=== PATIENT | female | born 1935 | race Caucasian/White ===

== ENCOUNTER → 2017-06-25 | Outpatient (CLI) | payer MEDICARE ==
--- NOTE | 2017-06-25 17:04 | Diagnostic Imaging Report ---
PROCEDURE: CT left lower extremity without contrast. TECHNIQUE: Multiple contiguous axial images were obtained through the left lower extremity without the use of intravenous contrast. Sagittal and coronal reformations were then performed. INDICATION: Knee pain. Preoperative imaging for knee arthroplasty. COMPARISON: None available. FINDINGS: Axial imaging of the left hip, knee and ankle were obtained according to the operative guidance protocol. These images demonstrate no concerning abnormality of left ankle or hip. Severe tricompartmental knee osteoarthritis is noted. A moderate-sized knee joint effusion is also present. Subcutaneous edema is seen around the ankle. IMPRESSION: CT imaging performed for operative planning purposes demonstrates severe tricompartmental knee osteoarthritis. Dictated by: Dictated on workstation # [id number]
== END ==
LOC: EDUNIT# 15:45 → RAD 15:51
PROVIDERS: ATTEND Orthopaedic Surgery
DX: Z01.818 Encounter for other preprocedural examination (principal); M17.12 Unilateral primary osteoarthritis, left knee
CPT/HCPCS: 73700

== ENCOUNTER 2017-07-09 12:43 | Outpatient (CLI) | payer MEDICARE ==
[~2017-07-09] VITALS: Ht 165.1 cm; Wt 84.4 kg
[2017-07-09 13:08] VITALS: BP 125/57
[2017-07-09 14:15] LABS: BASOPHILS % (AUTO) 0 % (0-10); EOSINOPHILS # (AUTO) 0.1 10^3/uL (0.0-0.3); EOSINOPHILS % (AUTO) 1 % (0-10); HEMATOCRIT 35 % (35-52); HEMOGLOBIN 11.8 G/DL (11.5-16.0); LYMPHOCYTES # (AUTO) 1.6 X 10^3 (1.0-4.0); LYMPHOCYTES % (AUTO) 23 % (12-44); MEAN CORPUSCULAR HEMOGLOBIN 30 PG (25-34); MEAN CORPUSCULAR HGB CONC 34 G/DL (32-36); MEAN CORPUSCULAR VOLUME 88 FL (80-99); MEAN PLATELET VOLUME 10.6 FL (7.4-10.4); MONOCYTES # (AUTO) 0.8 X 10^3 (0.0-1.0); MONOCYTES % (AUTO) 11 % (0-12); NEUTROPHILS # (AUTO) 4.5 X 10^3 (1.8-7.8); NEUTROPHILS % (AUTO) 65 % (42-75); PLATELET COUNT 324 10^3/uL (130-400); RED BLOOD COUNT 3.98 10^6/uL (4.35-5.85); RED CELL DISTRIBUTION WIDTH 14.4 % (10.0-14.5); WHITE BLOOD COUNT 6.9 10^3/uL (4.3-11.0)
[2017-07-09 14:16] LABS: BILIRUBIN,URINE NEGATIVE (NEGATIVE); CLARITY,URINE CLEAR; COLOR,URINE YELLOW; GLUCOSE, URINE (UA) NEGATIVE (NEGATIVE); KETONES,URINE NEGATIVE (NEGATIVE); LEUKOCYTE ESTERASE ,URINE NEGATIVE (NEGATIVE); NITRITE,URINE NEGATIVE (NEGATIVE); PH,URINE 7 (5-9); PROTEIN,URINE NEGATIVE (NEGATIVE); UROBILINOGEN,URINE NORMAL (NORMAL)
[2017-07-09 14:23] LABS: BACTERIA,URINE NEGATIVE /HPF
[2017-07-09 14:26] LABS: PROTHROMBIN TIME PATIENT 13.4 SEC (12.2-14.7)
[2017-07-09 14:33] LABS: ALBUMIN 4.1 GM/DL (3.2-4.5); BILIRUBIN,TOTAL 0.5 MG/DL (0.1-1.0); CALCIUM 9.4 MG/DL (8.5-10.1); CREATININE SERUM 1.13 MG/DL (0.60-1.30); POTASSIUM 4.2 MMOL/L (3.6-5.0); TOTAL PROTEIN 7.3 GM/DL (6.4-8.2)
[2017-07-09 14:49] LABS: ERYTHROCYTE SEDIMENTATION RATE 24 MM/HR (0-30)
[2017-07-09] MEDS ORDERED: CALC1TAB29 PO (15:38)
[2017-07-09] MEDS ORDERED: RANI-515 PO (15:38)
[2017-07-09] MEDS ORDERED: LOVA20TA2 PO (15:38)
[2017-07-09] MEDS ORDERED: OMEP40CA36 PO (15:38)
[2017-07-09] MEDS ORDERED: CHOL20003 PO (15:38)
[2017-07-09] MEDS ORDERED: VITA-244 PO (15:38)
[2017-07-09] MEDS ORDERED: FOLI-74 PO (15:38)
[2017-07-09] MEDS ORDERED: BNZ40T PO (15:38)
[2017-07-09] MEDS ORDERED: LEVO88TA54 PO (15:38)
[2017-07-09] MEDS ORDERED: CARV25TA PO (15:38)
[2017-07-09] MEDS ORDERED: FURO20TA4 PO (15:38)
[2017-07-09] MEDS ORDERED: ALEN70TA47 PO (15:38)
[2017-07-09] MEDS ORDERED: GLUC1TAB20 PO (15:38)
[2017-07-09] MEDS ORDERED: CETI10TA17 PO (15:38)
[2017-07-09] MEDS ORDERED: ASPI-983 PO (15:38)
[2017-07-09] MEDS ORDERED: AMLO10TA2 PO (15:38)
--- NOTE | 2017-07-09 17:06 | Diagnostic Imaging Report ---
INDICATION: Preop for total knee replacement. TIME OF EXAM: 02:03 p.m. COMPARISON: No prior studies are available for comparison. FINDINGS: Two views of chest are obtained. The heart is mildly enlarged. Pulmonary vascularity is unremarkable. There are no infiltrates. No effusion or pneumothorax is seen. IMPRESSION: No acute cardiopulmonary process is detected. Dictated by: Dictated on workstation # [id number]
== END 2017-07-09 14:00 | disposition home or self-care (01) ==
LOC: PREOP 12:43
PROVIDERS: ATTEND Orthopaedic Surgery
DX: Z01.811 Encounter for preprocedural respiratory examination (principal); Z01.812 Encounter for preprocedural laboratory examination; Z11.2 Encounter for screening for other bacterial diseases; M17.12 Unilateral primary osteoarthritis, left knee; R53.83 Other fatigue
CPT/HCPCS: 36415; 71046; 80053; 81000; 85025; 85610; 85652; 86850; 86900; 86901; 87081

== ENCOUNTER 2017-07-18 07:48 | Inpatient (IN) | payer MEDICARE ==
--- NOTE | 2017-07-09 10:44 | HISTORY AND PHYSICAL ---
DATE OF SERVICE: ADMISSION HISTORY AND PHYSICAL DATE OF ADMISSION: 07/18/2017. This will be for inpatient admission on 07/18/2017 for left total knee arthroplasty. HISTORY OF PRESENT ILLNESS: The patient is an 82-year-old female with complaints of progressively worsening left knee pain. She reports activity modifications and limitations because of the knee. She reports functional impairment. She reports this has been progressive in nature. She denies back pain and denies paresthesias. She has undergone treatment with injections but reports continued progressive symptoms. REVIEW OF SYSTEMS: No chest pain, no shortness of breath. No dysuria. PAST MEDICAL HISTORY: Hypertension, reflux, seasonal rhinitis, hypothyroidism, coronary artery disease. PAST SURGICAL HISTORY: SOCIAL HISTORY: The patient denies alcohol, tobacco use. FAMILY HISTORY: Significant for ischemic heart disease. PRIMARY CARE PROVIDER: Jalil Hayes M.D. ALLERGIES: No known drug allergies. RADIOGRAPHS: Reveal complete loss of lateral and patellofemoral joint spaces. PHYSICAL EXAMINATION. GENERAL: The patient is well-developed, well-nourished in no acute distress. HEENT: Normocephalic, atraumatic. Pupils are equal, round, reactive to light. Oropharynx is clear. NECK: Supple, no lymphadenopathy. LUNGS: Clear to auscultation bilaterally. HEART: Regular rate and rhythm. ABDOMEN: Soft, nontender, nondistended. EXTREMITIES: The left knee demonstrates valgus alignment. Range of motion 0/5/121. She has 1+ varus laxity, no valgus laxity, negative anterior and posterior drawer. No skin lesions are noted. Sensation is intact throughout. The patient ambulates with an antalgic gait. IMPRESSION: Severe left knee primary osteoarthritis. PLAN: Left total knee arthroplasty. We discussed risks, benefits, options complications and recovery. She understands and wishes to proceed. In addition, this will be a regular inpatient admission due to comorbidities, pain management, and gait abnormalities. Job ID: [id number] DocumentID: [id number] Dictated Date: 07/09/2017 09:43:45 Powdered Sugar Supervisor Date: 07/09/2017 10:43:20 Dictated By: LISSETTE RIOS MD
[~2017-07-18] VITALS: Ht 165.1 cm; Wt 84.4 kg
[~2017-07-18 07:48] MED LIST: ALEN70TA47 PO; AMLO10TA2 PO; ASPI-983 PO; BNZ40T PO; CALC1TAB29 PO; CARV25TA PO; CETI10TA17 PO; CHOL20003 PO; FOLI-74 PO; FURO20TA4 PO; GLUC1TAB20 PO; LEVO88TA54 PO; LOVA20TA2 PO; OMEP40CA36 PO; RANI-515 PO; VITA-244 PO
--- OUTSIDE RECORDS SUMMARY | 2017-07-18 07:55 | XMS REPORT | Clinical Summary ---
Author Author Admin, DANDRE Organization [facility] [employer] Address Unknown Phone Unavailable Allergies, Adverse Reactions, Alerts Allergy Name Reaction Description Start Date Severity Status Provider NKDA Critical Active Mariaa Whitman TECHNOLOGY ADMINISTRATOR Conditions or Problems Problem Name Problem Code Onset Date Status Entry Date Provider Comment Standard Description Annotate ROUTINE GYNECOLOGICAL EXAMINATION V72.31 Resolved Ana Cristina Vallejo MD PhD Routine gynecological examination MENOPAUSE 627.2 Ruled out Ana Cristina Vallejo MD PhD Symptomatic menopausal or female climacteric states MENOPAUSE 627.2 Active [facility] Symptomatic menopausal or female climacteric states DIVERTICULOSIS, COLON 562.10 Active Ana Cristina Vallejo MD PhD Diverticulosis of colon (without mention of hemorrhage) HIATAL HERNIA 553.3 Active Ana Cristina Vallejo MD PhD Diaphragmatic hernia without mention of obstruction or gangrene OSTEOPENIA 733.90 Active Ana Cristina Vallejo MD PhD Disorder of bone and cartilage, unspecified G E R D 530.81 Active Ana Cristina Vallejo MD PhD Esophageal reflux HYPERLIPIDEMIA 272.4 Active Ana Cristina Vallejo MD PhD Other and unspecified hyperlipidemia HYPERTENSION 401.9 Active Ana Cristina Vallejo MD PhD Unspecified essential hypertension HYPOTHYROIDISM 244.9 Active Ana Cristina Vallejo MD PhD Unspecified hypothyroidism FH STROKE V17.1 Active Ana Cristina Vallejo MD PhD Family history of stroke (cerebrovascular) INGROWN TOENAIL, INFECTED 703.0 Resolved Ana Cristina Vallejo MD PhD Ingrowing nail HEALTH SCREENING V70.0 Resolved Ana Cristina Vallejo MD PhD Routine general medical examination at a health care facility INGROWN TOENAIL 703.0 Resolved Ana Cristina Vallejo MD PhD Ingrowing nail Health maintenance exam V70.0 Active Ana Cristina Vallejo MD PhD Routine general medical examination at a health care facility Osteoarthritis, knee 715.96 Active Ana Cristina Vallejo MD PhD Osteoarthrosis, unspecified whether generalized or localized, involving lower leg Sciatica 724.3 Resolved Jalil Hayes MD Sciatica Sciatica, left 724.3 Active Mariaa Whitman APRN Sciatica Urinary bladder pain 788.99 Resolved Jalil Hayes MD Other symptoms involving urinary system UTI 599.0 Resolved Jalil Hayes MD Urinary tract infection, site not specified Mental status change 780.97 Active Mariaa Whitman APRN Altered mental status Medication management V68.89 Active Mariaa Whitman APRN Encounters for other specified administrative purpose Edema 782.3 Active Jalil Hayes MD Edema Dyspnea 786.09 Active Jalil Hayes MD Other dyspnea and respiratory abnormality Mammogram yearly screening V76.12 Active Jalil Hayes MD Other screening mammogram Change in bowels 787.99 Active Bee Rosas APRN Other symptoms involving digestive system Dysphagia 787.20 Active Bee Rosas APRN Dysphagia, unspecified ROUTINE GYNECOLOGICAL EXAMINATION ICD-V72.31 Inactive Ana Cristina Vallejo MD PhD INGROWN TOENAIL, INFECTED ICD-703.0 Inactive Ana Cristina Vallejo MD PhD HEALTH SCREENING ICD-V70.0 Inactive Ana Cristina Vallejo MD PhD INGROWN TOENAIL ICD-703.0 Inactive Ana Cristina Vallejo MD PhD Sciatica ICD-724.3 Inactive Jalil Hayes MD 2016 Urinary bladder pain ICD-788.99 Inactive Jalil Hayes MD UTI ICD-599.0 Inactive Jalil Hayes MD Medication List Medication Instructions Start Date Stop Date Generic Name NDC Status Provider Patient Instruction COLACE 100 MG CAP 1 po BID PRN Constipation DOCUSATE SODIUM 49443955952 No Longer Active Deepti Madl DESULPHURIZER OPERATOR Active ALPRAZOLAM 0.25 MG TAB 1/2-1 tablet by mouth twice a day as needed for stress ALPRAZOLAM 55491289050 No Longer Active Deepti Madl DESULPHURIZER OPERATOR Active MIRALAX ORAL PACK Takes daily prn POLYETHYLENE GLYCOL 3350 75119702740 Active Mariaa Yokum TECHNOLOGY ADMINISTRATOR Active ALENDRONATE SODIUM 70 MG TABS 1 pill by mouth weekly for osteoporosis ALENDRONATE SODIUM 50708154768 Active [facility] Active E-1000 1000 UNIT ORAL CAPS Take one by mouth daily VITAMIN E 64743779413 Active Brianda [facility] Active OSCAL 500/200 D-3 500-200 MG-UNIT ORAL TABS Take one by mouth 3 times daily, morning, afternoon and evening.] CALCIUM CARBONATE-VITAMIN D 13223374241 Active [facility] Active ASPIRIN 81 MG CHEW TAB 1 tablet by mouth daily ASPIRIN 66219661760 Active Brianda Reis [facility] Active ADULT ASPIRIN EC LOW STRENGTH 81 MG TBEC TAKE 1 TAB DAILY ASPIRIN 55215835256 No Longer Active Mariaa Yokum TECHNOLOGY ADMINISTRATOR Active ALENDRONATE SODIUM 70 MG TABS TAKE 1 TAB ONCE A WEEK ALENDRONATE SODIUM 85810244965 No Longer Active Mariaa Yokum TECHNOLOGY ADMINISTRATOR Active FLONASE ALLERGY RELIEF 50 MCG/ACT NASAL SUSP One spray each nostril daily for allergies FLUTICASONE PROPIONATE 83650630458 Active Mariaa Whitman APRN Active CETIRIZINE HCL 10 MG ORAL TABS 1 po qd PRN Allergies CETIRIZINE HCL 60343905930 Active HEDY Esquivel Active BACTRIM DS 800-160 MG TABS 1 pill by mouth twice daily, for UTI SULFAMETHOXAZOLE-TRIMETHOPRIM 08745355087 No Longer Active Ana Cristina Vallejo MD PhD Active HYDROCHLOROTHIAZIDE 12.5 MG CAPS 1 pill by mouth daily, for blood pressure HYDROCHLOROTHIAZIDE 21003550585 Active HEDY Esquivel Active CARVEDILOL 25 MG TABS 1 pill by mouth twice daily for blood pressure CARVEDILOL 62230309288 Active HEDY Esquivel Active SYNTHROID 0.088 MG TAB 1 tablet by mouth daily for thyroid LEVOTHYROXINE SODIUM 05524645169 Active HEDY Esquivel Active AMOXICILLIN 500 MG CAP 1 tab by mouth 3 times daily AMOXICILLIN 51915551479 No Longer Active Alden Kim MD Active [facility] VITAMIN D3 1000 UNIT CAPS TAKE 2 CAP DAILY CHOLECALCIFEROL Active Ana Cristina Vallejo MD PhD Active CALCIUM 500 MG TABS TAKE 3 TABS DAILY CALCIUM 93215689054 No Longer Active Mariaa Whitman APRN Active MULTIVITAMINS TABS TAKE 1 TAB DAILY MULTIPLE VITAMIN Active Anetajeannie Tavarezum DESULPHURIZER OPERATOR Active BENADRYL ALLERGY 25 MG TABS NEEDED DIPHENHYDRAMINE HCL 41674371066 Active Aneta Singh Leo DESULPHURIZER OPERATOR Active TYLENOL 325 MG TABS NEEDED ACETAMINOPHEN 04977714788 Active Aneta Singh Leo DESULPHURIZER OPERATOR Active ADVIL 200 MG TABS TAKE NEEDED IBUPROFEN 35070572444 Active Aneta Singh Leo DESULPHURIZER OPERATOR Active GLUCOSAMINE-CHONDROITIN 500-400 MG TABS TAKE 1 TAB DAILY GLUCOSAMINE-CHONDROITIN 62438680629 Active Mariaa Whitman APRN Active NORVASC 10 MG TABS TAKE 1 TAB DAILY AMLODIPINE BESYLATE 60963378635 Active HEDY Esquivel Active BENAZEPRIL HCL 40 MG TABS 1 PO BID BENAZEPRIL HCL 57861855793 Active HEDY Esquivel Active LOVASTATIN 20 MG TABS 1 PO Q HS FOR CHOLESTEROL LOVASTATIN 78331354729 Active HEDY Esquivel Active RANITIDINE HCL 150 MG CAPS 1 PO Q 12 HRS RANITIDINE HCL 05423021106 Active HEDY Esquivel Active ALENDRONATE SODIUM 70 MG TABS TAKE 1 TAB ONCE A WEEK ALENDRONATE SODIUM 70 MG TABS 064511 ALENDRONATE SODIUM Inactive ADULT ASPIRIN EC LOW STRENGTH 81 MG TBEC TAKE 1 TAB DAILY ADULT ASPIRIN EC LOW STRENGTH 81 MG TBEC 070951 ASPIRIN Inactive ALPRAZOLAM 0.25 MG TAB 1/2-1 tablet by mouth twice a day as needed for stress ALPRAZOLAM 0.25 MG TAB 825869 ALPRAZOLAM Inactive COLACE 100 MG CAP 1 po BID PRN Constipation COLACE 100 MG CAP 4500586 DOCUSATE SODIUM Inactive AMOXICILLIN 500 MG CAP 1 tab by mouth 3 times daily AMOXICILLIN 500 MG CAP 695603 AMOXICILLIN Inactive BACTRIM DS 800-160 MG TABS 1 pill by mouth twice daily, for UTI BACTRIM DS 800-160 MG TABS 146456 SULFAMETHOXAZOLE-TRIMETHOPRIM Inactive Advance Directives Directive Description Start Date PERMISSION TO SHARE Immunizations Vaccine Administration Date Value Standard Description influenza immunization (Flu Vax) has been administered given influenza virus vaccine, unspecified formulation dT (Diphtheria and Tetanus) booster given TD Td(adult) unspecified formulation pneumococcal immunization administered Pneumovax 23 pneumococcal polysaccharide vaccine, 23 valent Vital Signs Date Name Value Unit Range Description blood pressure, diastolic - 8462-4 52 mm[Hg] BP womack blood pressure, systolic - 8480-6 132 mm[Hg] BP sys height E&M - 8302-2 64.5 [in_us] Bdy height pulse rate E&M - 8867-4 56 /min Heart rate temperature E&M 95.8 [degF] Body temperature weight E&M - 3141-9 173 [lb_av] Weight Measured blood pressure, diastolic - 8462-4 54 mm[Hg] BP womack blood pressure, systolic - 8480-6 145 mm[Hg] BP sys temperature E&M 97.5 [degF] Body temperature weight E&M - 3141-9 176.0 [lb_av] Weight Measured blood pressure, diastolic - 8462-4 57 mm[Hg] BP womack blood pressure, systolic - 8480-6 136 mm[Hg] BP sys height E&M - 8302-2 64.5 [in_us] Bdy height pulse rate E&M - 8867-4 65 /min Heart rate temperature E&M 98.4 [degF] Body temperature weight E&M - 3141-9 166.5 [lb_av] Weight Measured blood pressure, diastolic - 8462-4 49 mm[Hg] BP womack blood pressure, systolic - 8480-6 146 mm[Hg] BP sys pulse rate E&M - 8867-4 68 /min Heart rate temperature E&M 98.7 [degF] Body temperature weight E&M - 3141-9 167 [lb_av] Weight Measured Diagnostic Results Date Name Value Unit Range Description Lab Report: Basic Metabolic Panel - Chemistry sodium, serum 130 mmol/L 521-219 5115/10/19 potassium, serum 3.5 mmol/L 3.5-5.2 chloride, serum 92 mmol/L 98-107 carbon dioxide, venous blood 33.6 mmol/L 21.0-32.0 blood glucose 118 mg/dL 65-110 calcium, serum 8.8 mg/dL 8.5-10.1 urea nitrogen, blood 11 mg/dL 7-18 creatinine, serum 1.12 mg/dL 0.55-1.30 Lab Report: CBC-QUEST, COMPREHENSIVE METABOLIC PANEL, LIPID PANEL, Micro ... - Chemistry cholesterol, serum 162 mg/dL 130-641 3234/05/01 HDL cholesterol, serum 68 mg/dL > OR=46 triglyceride, serum, fasting 96 mg/dL <150 LDL cholesterol, serum 75 MG/DL (CALC) mg/dL <130 cholesterol/HDL ratio, serum 2.4 (calc) < OR=5.0 Lab Report: CBC-QUEST, COMPREHENSIVE METABOLIC PANEL, LIPID PANEL, Micro ... - Hematology leukocyte count, blood 6.0 THOUSAND/UL 10*3/mm3 3.8-10.8 erythrocyte (RBC) count 3.95 MILLION/UL 10*6/mm3 3.80-5.10 hemoglobin, blood 11.7 g/dL 11.7-15.5 hematocrit, blood 34.2 % 35.0-45.0 mean corpuscular volume, RBC 86.4 fL 80.0-100.0 mean corpuscular hemoglobin, RBC 29.5 pg 27.0-33.0 mean corpuscular hemoglobin concentration, RBC 34.1 G/DL % 32.0- 36.0 red blood cell distribution width 16.2 % 11.0-15.0 platelet count 297 THOUSAND/UL 10*3/mm3 541-140 5354/05/01 mean platelet volume 8.9 fL 7.5-12.5 Lab Report: CBC-QUEST, COMPREHENSIVE METABOLIC PANEL, LIPID PANEL, Micro ... - Urinalysis microalbumin/total urine volume <0.2 mg/dL mg/L microalbumin/creatinine ratio, urine NOTE mcg/mg creat mg/L <30 Lab Report: UADIP W/MICRO, AUTO - Chemistry RBC, urine, dipstick 1+ Negative protein, total urine random Negative mg/dL Negative Lab Report: UADIP W/MICRO, AUTO - Urinalysis glucose, urine, semiquantitative Negative Negative ketones, urine, by test strip Negative Negative bilirubin, urine Negative Negative urine color Yellow Colorless;Lightyellow;Straw;Yellow appearance, urine Cloudy Clear specific gravity, urine 1.010 1.000-1.030 pH, urine, semiquantitative 7.5 5.0-8.5 urobilinogen, urine, semiquantitative (dipstick) 0.2 Normal leukocyte esterase, urine, by dipstick 3+ Negative nitrite, urine, semiquantitative Negative Negative Encounters Code Encounter Date Provider Facility CPT-07045 Level 4 Est. Patient 14:40:54 CDT Bee Rosas [facility] [place] [facility] [place] CPT-96947 Level 4 Est. Patient 10:31:15 CDT Jalil Hayes MD [facility]-63388 Level 4 Est. Patient 15:07:54 CDT Mariaa Whitman [facility]-88501 Level 3 Est. Patient 20:45:54 WIPING CLOTH CUTTER Mariaa Whitman [facility] CPT-54420 Level 3 Est. Patient 12:16:16 CDT Ana Cristina Vallejo MD PhD [facility] CPT-05374 Level 4 Est. Patient 12:49:21 CDT Ana Cristina [id number] Level 4 Est. Patient 23:02:25 CDT Ana Cristina Vallejo MD PhD [facility] CPT-40040 Level 4 Est. Patient 19:26:33 WIPING CLOTH CUTTER Ana Cristina Vallejo MD PhD [facility] CPT-82921 Level 4 Est. Patient 11:28:14 CDT Ana Cristina Vallejo MD PhD [facility] CPT-56236 Level 4 Est. Patient 15:35:46 WIPING CLOTH CUTTER Ana Cristina Vallejo MD PhD [facility] CPT-65434 Level 3 Est. Patient 21:06:39 WIPING CLOTH CUTTER Alden Kim MD [facility] CPT-89930 Level 4 Est. Patient 15:30:54 WIPING CLOTH CUTTER Ana Cristina Vallejo MD PhD [facility] Procedures Code Procedure Name Date Entry Date Standard Description CPT-48404 EKG Trac and Interp - XRAY USE ONLY 10:35:11 CDT 09/11 CPT-45888 Chest 2V Frontal and Lat - XRAY USE ONLY 10:35:11 CDT CPT-G0438 Initial Annual Wellness Exam 14:54:07 CDT CPT-G0009 Administration of Pneumococcal Vaccine 14:44:24 CDT CPT-05991 Pneumovax 23 Injection Injectable 25 MCG/0.5ML 14:44:24 CDT CPT-60113 First Vx - Ix admin for Medicare patients 14:44:24 CDT CPT-30877 Fluzone High-Dose Intramuscular Suspension 14:44:20 CDT CPT-75572 BMP - LAB USE ONLY 12:38:06 CDT CPT-04506 Urine Culture - LAB USE ONLY 16:56:33 CDT CPT-TCMM Transitional Care Mgmt-Moderate 18:08:16 CDT CPT-34002 Bone Density 09:14:12 CDT CPT-000 Give Appropriate Flu Vaccine 14:51:52 CDT CPT-32421 Fluzone High Dose (>=65 yrs.) 15:19:23 CDT CPT-81534 Immunization Single Admin 15:19:23 CDT CPT-01410 Prevnar 13 15:40:03 CDT CPT-06705 Administration single or combination vaccine inc oral 15 :40:03 CDT CPT-88168 Prevnar 13:55:07 CDT CPT-G0008 Administration of Influenza Virus Vaccine 10:49:51 CDT CPT-97757 Fluzone High-Dose Intramuscular Suspension 10:49:51 CDT CPT-70309 Knee 3V 13:31:37 CDT CPT-83466 Bone Density 09:07:05 WIPING [employer]OTH CUTTER CPT-06364 Nail Avulsion 09:46:05 CDT CPT-39437 Administration single or combination vaccine inc oral 16 :11:54 CDT CPT-64921 Influenza High Dose age 65+ 16:11:54 CDT CPT-39123 Administration single or combination vaccine inc oral 10 :53:15 CDT CPT-97800 Influenza High Dose age 65+ 10:53:15 CDT CPT-53798 Bone Density 14:50:58 WIPING [employer]OTH C[employer]TER CPT-78811 Administration single or combination vaccine inc oral 15 :41:20 WIPING [employer]OTH CUTTER CPT-63526 Zoster Vaccine (Zostavax) 15:41:20 WIPING CLOTH CUTTER CPT-98716 Spec Collection and Handling Fee 11:18:25 WIPING CLOTH CUTTER CPT-77332 Administration single or combination vaccine inc oral 11 :14:20 CDT CPT-04377 Influenza High Dose age 65+ 11:14:20 CDT
--- OUTSIDE RECORDS SUMMARY | 2017-07-18 07:56 | XMS REPORT | Clinical Summary ---
Author Author Admin, DANDRE Organization [facility] [employer] Address Unknown Phone Unavailable Allergies, Adverse Reactions, Alerts Allergy Name Reaction Description Start Date Severity Status Provider NKDA Critical Active Mariaa Whitman [employer]FORMATION OFFICER Conditions or Problems Problem Name Problem Code Onset Date Status Entry Date Provider Comment Standard Description Annotate ROUTINE GYNECOLOGICAL EXAMINATION V72.31 Resolved Ana Cristina Vallejo MD PhD Routine gynecological examination MENOPAUSE 627.2 Ruled out Ana Cristina Vallejo MD PhD Symptomatic menopausal or female climacteric states MENOPAUSE 627.2 Active Brianda Reis [facility] Symptomatic menopausal or female climacteric states DIVERTICULOSIS, [...] Active Jalil Hayes MD Edema Dyspnea 786.09 Resolved Jalil Hayes MD Other dyspnea and respiratory abnormality Mammogram yearly screening V76.12 Active Jalil Hayes MD Other screening mammogram Change in bowels 787.99 Active Bee Rosas APRN Other symptoms involving digestive system Dysphagia 787.20 Active Bee Rosas APRN Dysphagia, unspecified Near syncope 780.2 Active Jalil Hayes MD Syncope and collapse Diastolic dysfunction 429.9 Active Jalil Hayes MD Heart disease, unspecified Pulmonary hypertension 416.8 Active Jalil Hayes MD Other chronic pulmonary heart diseases Left atrial enlargement 429.3 Active Jalil Hayes MD Cardiomegaly Diastolic dysfunction 429.9 Active Jalil Hayes MD Heart disease, unspecified Dysuria 788.1 Resolved Jalil Hayes MD Dysuria Forgetfulness 780.99 Active Radha Jones [employer] Other general symptoms Unsteady gait 781.2 Active Radha Jones APRN Abnormality of gait Personal history of fall V15.88 Active Radha Jones APRN Personal history of fall BMI 29-29.9 adult V85.25 Active Jalil Hayes MD Body Mass Index 29.0-29.9, adult Arm pain 729.5 Active Jalil Hayes MD Pain in limb ROUTINE GYNECOLOGICAL EXAMINATION ICD-V72.31 Inactive Ana Cristina Vallejo MD PhD INGROWN TOENAIL, INFECTED ICD-703.0 Inactive Ana Cristina Vallejo MD PhD HEALTH SCREENING ICD-V70.0 Inactive Ana Cristina Vallejo MD PhD INGROWN TOENAIL ICD-703.0 Inactive Ana Cristina Vallejo MD PhD Sciatica ICD-724.3 Inactive Jalil Hayes MD 2016 Urinary bladder pain ICD-788.99 Inactive Jalil Hayes MD UTI ICD-599.0 Inactive Jalil Hayes MD Dyspnea ICD-786.09 Inactive Jalil Hayes MD 2017 Dysuria ICD-788.1 Inactive Jalil Hayes MD 05/23 Medication List Medication Instructions Start Date Stop Date Generic Name NDC Status Provider Patient Instruction PREDNISONE 10 MG ORAL TABLET 2 daily for 5 days then 1 daily for 5 days 05/25 PREDNISONE 39731882863 Active Deepti Junior LPN Active VITAMIN D3 2000 UNIT ORAL TABLET 1 daily, for vitamin D deficiency CHOLECALCIFEROL 77467625998 No Longer Active Radha Jones APRN Active CIPRO 250 MG ORAL TABLET 1 tab BID for 7 days CIPROFLOXACIN HCL 91722061395 No Longer Active Radha Jones APRN Active VITAMIN D3 2000 UNIT ORAL CAPSULE 1 capsule po daily CHOLECALCIFEROL 49455351267 Active Aneta Tavarezum YULIET Active EQL ONE DAILY WOMENS ORAL TABLET 1 po daily MULTIPLE VITAMINS- CALCIUM 77177280466 Active Aneta Bailey LPN Active MACROBID 100 MG ORAL CAPSULE 1 tab BID for 5 days NITROFURANTOIN MONOHYD MACRO 26173079814 No Longer Active Deepti Junior LPN Active HYDROCHLOROTHIAZIDE 12.5 MG ORAL CAPSULE 1 pill by mouth daily HYDROCHLOROTHIAZIDE 64339532418 Active Jalil Hayes MD Active RANITIDINE HCL 150 MG ORAL CAPSULE once nightly RANITIDINE HCL 42065273809 Active Aneta Bailey LPN Active BENAZEPRIL HCL 40 MG ORAL TABLET 1 daily for blood pressure BENAZEPRIL HCL 06834377088 Active Jalil Hayes MD Active HYDROCHLOROTHIAZIDE 12.5 MG ORAL CAPSULE 1 pill by mouth daily, for blood pressure HYDROCHLOROTHIAZIDE 36737128536 No Longer Active Jalil Hayes MD Active AUGMENTIN 875-125 MG ORAL TABLET 1 po BID x 7 days AMOXICILLIN-POT CLAVULANATE 30884838114 No Longer Active Jalil Hayes MD Active OMEPRAZOLE 40 MG ORAL CAPSULE DELAYED RELEASE 1 po q a.m. OMEPRAZOLE 35936040287 Active HEDY Esquivel Active MIRALAX ORAL PACKET Takes daily prn POLYETHYLENE GLYCOL 3350 01922170958 No Longer Active Peggy Pardo LPN Active FLONASE ALLERGY RELIEF 50 MCG/ACT NASAL SUSPENSION One spray each nostril daily for allergies FLUTICASONE PROPIONATE 37317804906 No Longer Active Peggy Pardo LPN Active BENADRYL ALLERGY 25 MG ORAL TABLET NEEDED DIPHENHYDRAMINE HCL 90972364477 No Longer Active Peggy Pardo LPN Active ADVIL 200 MG ORAL TABLET TAKE NEEDED IBUPROFEN 50983752049 No Longer Active Peggy Pardo LPN Active COLACE 100 MG ORAL CAPSULE 1 po BID PRN Constipation DOCUSATE SODIUM 43800110698 No Longer Active Deepti Junior LPN Active ALPRAZOLAM 0.25 MG ORAL TABLET 1/2-1 tablet by mouth twice a day as needed for stress ALPRAZOLAM 84098440906 No Longer Active Deepti Junior LPN Active ALENDRONATE SODIUM 70 MG ORAL TABLET 1 pill by mouth weekly for osteoporosis ALENDRONATE SODIUM 83456749699 Active Aneta Bailey LPN Active E-1000 1000 UNIT ORAL CAPSULE Take one by mouth daily VITAMIN E 91648913148 Active Aneta Bailey LPN Active OSCAL 500/200 D-3 500-200 MG-UNIT ORAL TABLET Take one by mouth 3 times daily , morning, afternoon and evening.] CALCIUM CARBONATE-VITAMIN D 90336549912 Active Aneta Bailey LPN Active ASPIRIN 81 MG ORAL TABLET CHEWABLE 1 tablet by mouth daily ASPIRIN 77721891359 Active Aneta Bailey LPN Active ADULT ASPIRIN EC LOW STRENGTH 81 MG ORAL TABLET DELAYED RELEASE TAKE 1 TAB DAILY ASPIRIN 22202661509 No Longer Active Mariaa Whitman APRN Active ALENDRONATE SODIUM 70 MG ORAL TABLET TAKE 1 TAB ONCE A WEEK 01/20 ALENDRONATE SODIUM 95294425152 No Longer Active Mariaa Whitman APRN Active CETIRIZINE HCL 10 MG ORAL TABLET 1 po qd PRN Allergies CETIRIZINE HCL 42025068182 Active HEDY Esquivel Active BACTRIM DS 800-160 MG ORAL TABLET 1 pill by mouth twice daily, for UTI 01/29 SULFAMETHOXAZOLE-TRIMETHOPRIM 63021451163 No Longer Active Ana Cristina Vallejo MD PhD Active CARVEDILOL 25 MG ORAL TABLET 1 pill by mouth twice daily for blood pressure CARVEDILOL 94877897154 Active Aneta Tavarezum RN PLACEMENT Active SYNTHROID 88 MCG ORAL TABLET 1 tablet by mouth daily for thyroid LEVOTHYROXINE SODIUM 75655406115 Active HEDY Esquivel Active AMOXICILLIN 500 MG ORAL CAPSULE 1 tab by mouth 3 times daily 2011 AMOXICILLIN 99767402882 No Longer Active Alden Kim MD Active CALCIUM 500 MG ORAL TABLET TAKE 3 TABS DAILY CALCIUM 02064026181 No Longer Active Mariaa Yoxuanum [employer] INFORMATION OFFICER Active MULTIVITAMINS TABS TAKE 1 TAB DAILY MULTIPLE VITAMIN No Longer Active Aneta Tavarezum RN PLACEMENT Active TYLENOL 325 MG ORAL TABLET NEEDED ACETAMINOPHEN 44972361595 Active Aneta Tavarezum RN PLACEMENT Active GLUCOSAMINE-CHONDROITIN 500-400 MG ORAL TABLET TAKE 1 TAB DAILY GLUCOSAMINE-CHONDROITIN 36540598489 Active Aneta Tavarezum RN PLACEMENT Active NORVASC 10 MG ORAL TABLET TAKE 1 TAB DAILY AMLODIPINE BESYLATE 68433486394 Active Aneta Tavarezum RN PLACEMENT Active LOVASTATIN 20 MG ORAL TABLET 1 PO Q HS FOR CHOLESTEROL LOVASTATIN 55975587239 Active HEDY Esquivel Active ALENDRONATE SODIUM 70 MG ORAL TABLET TAKE 1 TAB ONCE A WEEK 01/20 ALENDRONATE SODIUM 70 MG ORAL TABLET 863068 ALENDRONATE SODIUM Inactive ADULT ASPIRIN EC LOW STRENGTH 81 MG ORAL TABLET DELAYED RELEASE TAKE 1 TAB DAILY ADULT ASPIRIN EC LOW STRENGTH 81 MG ORAL TABLET DELAYED RELEASE 001416 ASPIRIN Inactive ALPRAZOLAM 0.25 MG ORAL TABLET 1/2-1 tablet by mouth twice a day as needed for stress ALPRAZOLAM 0.25 MG ORAL TABLET 080415 ALPRAZOLAM Inactive COLACE 100 MG ORAL CAPSULE 1 po BID PRN Constipation COLACE 100 MG ORAL CAPSULE 7961860 DOCUSATE SODIUM Inactive ADVIL 200 MG ORAL TABLET TAKE NEEDED ADVIL 200 MG ORAL TABLET 204143 IBUPROFEN Inactive BENADRYL ALLERGY 25 MG ORAL TABLET NEEDED BENADRYL ALLERGY 25 MG ORAL TABLET 8546679 DIPHENHYDRAMINE HCL Inactive FLONASE ALLERGY RELIEF 50 MCG/ACT NASAL SUSPENSION One spray each nostril daily for allergies FLONASE ALLERGY RELIEF 50 MCG/ACT NASAL SUSPENSION 3635408 FLUTICASONE PROPIONATE Inactive MIRALAX ORAL PACKET Takes daily prn MIRALAX ORAL PACKET 473592 POLYETHYLENE GLYCOL 3350 Inactive AUGMENTIN 875-125 MG ORAL TABLET 1 po BID x 7 days AUGMENTIN 875-125 MG ORAL TABLET 924588 AMOXICILLIN-POT CLAVULANATE Inactive HYDROCHLOROTHIAZIDE 12.5 MG ORAL CAPSULE 1 pill by mouth daily, for blood pressure HYDROCHLOROTHIAZIDE 12.5 MG ORAL CAPSULE 132115 HYDROCHLOROTHIAZIDE Inactive CIPRO 250 MG ORAL TABLET 1 tab BID for 7 days CIPRO 250 MG ORAL TABLET 103204 CIPROFLOXACIN HCL Inactive VITAMIN D3 2000 UNIT ORAL TABLET 1 daily, for vitamin D deficiency VITAMIN D3 2000 UNIT ORAL TABLET CHOLECALCIFEROL Inactive AMOXICILLIN 500 MG ORAL CAPSULE 1 tab by mouth 3 times daily 2011 AMOXICILLIN 500 MG ORAL CAPSULE 463957 AMOXICILLIN Inactive BACTRIM DS 800-160 MG ORAL TABLET 1 pill by mouth twice daily, for UTI 01/29 BACTRIM DS 800-160 MG ORAL TABLET 084160 SULFAMETHOXAZOLE- TRIMETHOPRIM Inactive MACROBID 100 MG ORAL CAPSULE 1 tab BID for 5 days MACROBID 100 MG ORAL CAPSULE 6793396 NITROFURANTOIN MONOHYD MACRO Inactive Advance Directives Directive Description Start Date PERMISSION TO SHARE Immunizations Vaccine Administration Date Value Standard Description influenza immunization (Flu Vax) has been administered given influenza virus vaccine, unspecified formulation dT (Diphtheria and Tetanus) booster given TD Td(adult) unspecified formulation pneumococcal immunization administered Pneumovax 23 pneumococcal polysaccharide vaccine, 23 valent Vital Signs Date Name Value Unit Range Description blood pressure, diastolic 57 mm[Hg] BP womack blood pressure, systolic 146 mm[Hg] BP sys height E&M 64.5 [in_us] Bdy height pulse rate E&M 62 /min Heart rate temperature E&M 98.3 [degF] Body temperature weight E&M 176.31 [lb_av] Weight Measured blood pressure, diastolic 59 mm[Hg] BP womack blood pressure, systolic 129 mm[Hg] BP sys height E&M 64.5 [in_us] Bdy height pulse rate E&M 65 /min Heart rate temperature E&M 97.7 [degF] Body temperature weight E&M 177 [lb_av] Weight Measured blood pressure, diastolic 58 mm[Hg] BP womack blood pressure, systolic 144 mm[Hg] BP sys pulse rate E&M 65 /min Heart rate temperature E&M 98.5 [degF] Body temperature weight E&M 171.5 [lb_av] Weight Measured blood pressure, diastolic 47 mm[Hg] BP womack blood pressure, systolic 123 mm[Hg] BP sys height E&M 64.5 [in_us] Bdy height pulse rate E&M 70 /min Heart rate temperature E&M 98.8 [degF] Body temperature weight E&M 170 [lb_av] Weight Measured blood pressure, diastolic 52 mm[Hg] BP womack blood pressure, systolic 132 mm[Hg] BP sys height E&M 64.5 [in_us] Bdy height pulse rate E&M 56 /min Heart rate temperature E&M 95.8 [degF] Body temperature weight E&M 173 [lb_av] Weight Measured blood pressure, diastolic 54 mm[Hg] BP womack blood pressure, systolic 145 mm[Hg] BP sys temperature E&M 97.5 [degF] Body temperature weight E&M 176.0 [lb_av] Weight Measured Diagnostic Results Date Name Value Unit Range Description Lab Report: Basic Metabolic Panel - Chemistry sodium, serum 132 mmol/L 096-264 1172/08/09 potassium, serum 4.2 mmol/L 3.5-5.2 chloride, serum 99 mmol/L 98-107 carbon dioxide, venous blood 24.7 mmol/L 21.0-32.0 blood glucose 119 mg/dL 65-110 calcium, serum 8.5 mg/dL 8.5-10.1 urea nitrogen, blood 14 mg/dL 7-18 creatinine, serum 1.16 mg/dL 0.60-1.30 Lab Report: CBC-QUEST, COMPREHENSIVE METABOLIC PANEL, LIPID PANEL, Micro ... - Chemistry cholesterol, serum 162 mg/dL 233-995 3889/05/01 HDL cholesterol, serum 68 mg/dL > OR=46 [...] % 11.0-15.0 platelet count 297 THOUSAND/UL 10*3/mm3 017-652 1801/05/01 mean platelet volume 8.9 fL 7.5-12.5 Lab Report: CBC-QUEST, COMPREHENSIVE METABOLIC PANEL, LIPID PANEL, Micro ... - Urinalysis microalbumin/total urine volume <0.2 mg/dL mg/L microalbumin/creatinine ratio, urine NOTE mcg/mg creat mg/L <30 Lab Report: Erythrocyte Sed Rate, Thyroid Stimulating Hormone (L), Basic ... - Chemistry TSH 1.13 m[iU]/mL 0.36-3.74 sodium, serum 139 mmol/L 267-188 3351/01/10 potassium, serum 3.8 mmol/L 3.5-5.2 chloride, serum 101 mmol/L 98-107 carbon dioxide, venous blood 24.4 mmol/L 21.0-32.0 blood glucose 101 mg/dL 65-110 calcium, serum 9.2 mg/dL 8.5-10.1 urea nitrogen, blood 15 mg/dL 7-18 creatinine, serum 1.18 mg/dL 0.60-1.30 Lab Report: UADIP W/MICRO, AUTO - Chemistry protein, total urine random Negative mg/dL Negative RBC, urine, dipstick 1+ Negative Lab Report: UADIP W/MICRO, AUTO - Urinalysis urobilinogen, urine, semiquantitative (dipstick) 0.2 E.U./dL Normal leukocyte esterase, urine, by dipstick 3+ Negative nitrite, urine, semiquantitative Negative Negative glucose, urine, semiquantitative Negative Negative ketones, urine, by test strip Negative Negative bilirubin, urine Negative Negative urine color Light yellow Colorless;Lightyellow;Straw;Yellow appearance, urine Cloudy Clear specific gravity, urine 1.010 1.000-1.030 pH, urine, semiquantitative 6.5 5.0-8.5 Encounters Code Encounter Date Provider Facility CPT-55175 Level 4 Est. Patient 12:35:27 CNC WOOD LATHE OPERATOR Jalil Hayes MD [facility]-41276 Level 3 Est. Patient 13:55:49 CDT Jalil Hayes MD [facility]32832 Level 3 Est. Patient 14:38:15 CDT Jalil Hayes MD [facility]27384 Level 4 Est. Patient 14:40:54 CDT Bee Rosas [facility]-58222 Level 4 Est. Patient 10:31:15 CDT Jalil Hayes MD [facility]41669 Level 4 Est. Patient 15:07:54 CDT Mariaa Whitman [facility]-50642 Level 3 Est. Patient 20:45:54 CNC WOOD LATHE OPERATOR Mariaa Whitman [facility]-51128 Level 3 Est. Patient 12:16:16 CDT Ana Cristina Vallejo MD [facility]11725 Level 4 Est. Patient 12:49:21 CDT Ana Cristina Vallejo MD [facility]30361 Level 4 Est. Patient 23:02:25 CDT Ana Cristina Vallejo MD [facility]61024 Level 4 Est. Patient 19:26:33 CNC WOOD LATHE OPERATOR Ana Cristina Vallejo MD [facility]14365 Level 4 Est. Patient 11:28:14 CDT Ana Cristina Vallejo MD PhD [facility] CPT-59508 Level 4 Est. Patient 15:35:46 CNC WOOD LATHE OPERATOR Ana Cristina Vallejo MD PhD [facility] CPT-98774 Level 3 Est. Patient 21:06:39 CNC WOOD LATHE OPERATOR Alden Kim MD [facility] CPT-79864 Level 4 Est. Patient 15:30:54 CNC WOOD LATHE OPERATOR Ana Cristina Vallejo MD PhD [facility] Procedures Code Procedure Name Date Entry Date Standard Description CPT-G0439 Subsequent Annual Wellness Exam 11:53:01 CNC WOOD LATHE OPERATOR CPT-14926 First Vx - Ix admin for Medicare patients 13:35:01 CDT CPT-91574 Fluzone High-Dose Intramuscular Suspension 13:35:01 CDT CPT-TCMM Transitional Care Mgmt-Moderate 14:41:55 CDT CPT-65077 EKG Trac and Interp - XRAY USE ONLY 10:35:11 CDT 09/11 CPT-10038 Chest 2V Frontal and Lat - XRAY USE ONLY 10:35:11 CDT CPT-G0438 Initial Annual Wellness Exam 14:54:07 CDT CPT-G0009 Administration of Pneumococcal Vaccine 14:44:24 CDT CPT-16116 Pneumovax 23 Injection Injectable 25 MCG/0.5ML 14:44:24 CDT CPT-94789 First Vx - Ix admin for Medicare patients 14:44:24 CDT CPT-95300 Fluzone High-Dose Intramuscular Suspension 14:44:20 CDT CPT-26315 BMP - LAB USE ONLY 12:38:06 CDT CPT-43666 Urine Culture - LAB USE ONLY 16:56:33 CDT CPT-TCMM Transitional Care Mgmt-Moderate 18:08:16 CDT CPT-19625 Bone Density 09:14:12 CDT CPT-000 Give Appropriate Flu Vaccine 14:51:52 CDT CPT-91318 Fluzone High Dose (>=65 yrs.) 15:19:23 CDT CPT-13323 Immunization Single Admin 15:19:23 CDT CPT-64550 Prevnar 13 15:40:03 CDT CPT-57884 Administration single or combination vaccine inc oral 15 :40:03 CDT CPT-44622 Prevnar 13 13:55:07 CDT CPT-G0008 Administration of Influenza Virus Vaccine 10:49:51 CDT CPT-27717 Fluzone High-Dose Intramuscular Suspension 10:49:51 CDT CPT-22149 Knee 3V 13:31:37 CDT CPT-45540 Bone Density 09:07:05 CNC WOOD LATHE OPERATOR CPT-32906 Nail Avulsion 09:46:05 CDT CPT-17512 Administration single or combination vaccine inc oral 16 :11:54 CDT CPT-98113 Influenza High Dose age 65+ 16:11:54 CDT CPT-63594 Administration single or combination vaccine inc oral 10 :53:15 CDT CPT-35721 Influenza High Dose age 65+ 10:53:15 CDT CPT-28747 Bone Density 14:50:58 CNC WO[employer] LATHE OPERATOR CPT-71833 Administration single or combination vaccine inc oral 15 :41:20 CNC WOOD LATHE OPERATOR CPT-70350 Zoster Vaccine (Zostavax) 15:41:20 CNC WOOD LATHE OPERATOR CPT-44550 Spec Collection and Handling Fee 11:18:25 CNC WOOD LATHE OPERATOR CPT-10253 Administration single or combination vaccine inc oral 11 :14:20 CDT CPT-70061 Influenza High Dose age 65+ 11:14:20 CDT
--- OUTSIDE RECORDS SUMMARY | 2017-07-18 07:56 | XMS REPORT | Clinical Summary ---
Author Author Admin, DANDRE Organization [facility] Address Unknown Phone Unavailable Allergies, Adverse Reactions, Alerts Allergy Name Reaction Description Start Date Severity Status Provider NKDA Critical Active Mariaa Whitman BAG BAILER Conditions or Problems Problem Name Problem Code Onset Date Status Entry Date Provider Comment Standard Description Annotate ROUTINE GYNECOLOGICAL EXAMINATION V72.31 Resolved Ana Cristina Vallejo MD PhD Routine gynecological examination MENOPAUSE 627.2 Ruled out Ana Cristina Vallejo MD PhD Symptomatic menopausal or female climacteric states MENOPAUSE 627.2 Active Brianda Reis [facility] Symptomatic menopausal or female climacteric states [...] MD Dysuria Forgetfulness 780.99 Active Radha Jones BAG BAILER Other general symptoms Unsteady gait 781.2 Active Radha Jones APRN Abnormality of gait Personal history of fall V15.88 Active Radha Jones APRN Personal history of fall BMI 29-29.9 adult V85.25 Active Jalil Hayes MD Body Mass Index 29.0-29.9, adult Arm pain 729.5 Active Jalil Hayes MD Pain in limb Preoperative examination V72.84 Active Jalil Hayes MD Preoperative examination, unspecified INGROWN TOENAIL, INFECTED ICD-703.0 Inactive Ana Cristina Vallejo MD PhD ROUTINE GYNECOLOGICAL EXAMINATION ICD-V72.31 Inactive Ana Cristina Vallejo MD PhD INGROWN TOENAIL ICD-703.0 Inactive Ana Cristina Vallejo MD PhD HEALTH SCREENING ICD-V70.0 Inactive Ana Cristina Vallejo MD PhD Urinary bladder pain ICD-788.99 Inactive Jalil Hayes MD UTI ICD-599.0 Inactive Jalil Hayes MD Sciatica ICD-724.3 Inactive Jalil Hayes MD 2016 Dysuria ICD-788.1 Inactive Jalil Hayes MD 05/23 Dyspnea ICD-786.09 Inactive Jalil Hayes MD 2017 Medication List Medication Instructions Start Date Stop Date Generic Name NDC Status Provider Patient Instruction FUROSEMIDE 20 MG ORAL TABLET 1 daily for blood pressure and swelling FUROSEMIDE 85095760827 Active Jalil Hayes MD Active HYDROCHLOROTHIAZIDE 12.5 MG ORAL CAPSULE 1 pill by mouth daily HYDROCHLOROTHIAZIDE 45329250601 No Longer Active Jalil Hayes MD Active PREDNISONE 10 MG ORAL TABLET 2 daily for 5 days then 1 daily for 5 days 05/25 PREDNISONE 05375647997 No Longer Active Jalil Hayes MD Active VITAMIN D3 2000 UNIT ORAL TABLET 1 daily, for vitamin D deficiency CHOLECALCIFEROL 26976905743 No Longer Active Radha Jones APRN Active CIPRO 250 MG ORAL TABLET 1 tab BID for 7 days CIPROFLOXACIN HCL 35366069207 No Longer Active Radha Jones APRN Active VITAMIN D3 2000 UNIT ORAL CAPSULE 1 capsule po daily CHOLECALCIFEROL 23588952869 Active Aneta Bailey LPN Active EQL ONE DAILY WOMENS ORAL TABLET 1 po daily MULTIPLE VITAMINS- CALCIUM 65513849732 Active Aneta Tavarezum ASSISTANT BOOKKEEPER Active MACROBID 100 MG ORAL CAPSULE 1 tab BID for 5 days NITROFURANTOIN MONOHYD MACRO 74122497287 No Longer Active Deepti Madl ASSISTANT BOOKKEEPER Active RANITIDINE HCL 150 MG ORAL CAPSULE once nightly RANITIDINE HCL 74659708106 Active Aneta Tavarezum ASSISTANT BOOKKEEPER Active BENAZEPRIL HCL 40 MG ORAL TABLET 1 daily for blood pressure BENAZEPRIL HCL 85608884768 Active Jalil Hayes MD Active HYDROCHLOROTHIAZIDE 12.5 MG ORAL CAPSULE 1 pill by mouth daily, for blood pressure HYDROCHLOROTHIAZIDE 86036370174 No Longer Active Jalil Hayes MD Active AUGMENTIN 875-125 MG ORAL TABLET 1 po BID x 7 days AMOXICILLIN-POT CLAVULANATE 11454871866 No Longer Active Jalil Hayes MD Active OMEPRAZOLE 40 MG ORAL CAPSULE DELAYED RELEASE 1 po q a.m. OMEPRAZOLE 63382098675 Active HEDY Esquivel Active MIRALAX ORAL PACKET Takes daily prn POLYETHYLENE GLYCOL 3350 00136782283 No Longer Active Peggy Pardo LPN Active FLONASE ALLERGY RELIEF 50 MCG/ACT NASAL SUSPENSION One spray each nostril daily for allergies FLUTICASONE PROPIONATE 20272075629 No Longer Active Peggy Pardo LPN Active BENADRYL ALLERGY 25 MG ORAL TABLET NEEDED DIPHENHYDRAMINE HCL 45375596761 No Longer Active Peggy Pardo LPN Active ADVIL 200 MG ORAL TABLET TAKE NEEDED IBUPROFEN 64944154850 No Longer Active Peggy Pardo LPN Active COLACE 100 MG ORAL CAPSULE 1 po BID PRN Constipation DOCUSATE SODIUM 95412934460 No Longer Active Deepti Junior LPN Active ALPRAZOLAM 0.25 MG ORAL TABLET 1/2-1 tablet by mouth twice a day as needed for stress ALPRAZOLAM 66607247407 No Longer Active Deepti Junior LPN Active ALENDRONATE SODIUM 70 MG ORAL TABLET 1 pill by mouth weekly for osteoporosis ALENDRONATE SODIUM 38921453297 Active Aneta Bailey LPN Active E-1000 1000 UNIT ORAL CAPSULE Take one by mouth daily VITAMIN E 40596700830 Active Aneta Bailey LPN Active OSCAL 500/200 D-3 500-200 MG-UNIT ORAL TABLET Take one by mouth 3 times daily , morning, afternoon and evening.] CALCIUM CARBONATE-VITAMIN D 62732777898 Active Aneta Bailey LPN Active ASPIRIN 81 MG ORAL TABLET CHEWABLE 1 tablet by mouth daily ASPIRIN 00685971369 Active Aneta Bailey LPN Active ADULT ASPIRIN EC LOW STRENGTH 81 MG ORAL TABLET DELAYED RELEASE TAKE 1 TAB DAILY ASPIRIN 56345663822 No Longer Active Mariaa Whitman APRN Active ALENDRONATE SODIUM 70 MG ORAL TABLET TAKE 1 TAB ONCE A WEEK 01/20 ALENDRONATE SODIUM 78145809413 No Longer Active Mariaa Whitman APRN Active CETIRIZINE HCL 10 MG ORAL TABLET 1 po qd PRN Allergies CETIRIZINE HCL 77056476223 Active HEDY Esquivel Active BACTRIM DS 800-160 MG ORAL TABLET 1 pill by mouth twice daily, for UTI 01/29 SULFAMETHOXAZOLE-TRIMETHOPRIM 25882705138 No Longer Active Ana Cristina Vallejo MD PhD Active CARVEDILOL 25 MG ORAL TABLET 1 pill by mouth twice daily for blood pressure CARVEDILOL 42647474077 Active Aneta Tavarezum YULIET Active SYNTHROID 88 MCG ORAL TABLET 1 tablet by mouth daily for thyroid LEVOTHYROXINE SODIUM 19569038227 Active HEDY Esquivel Active AMOXICILLIN 500 MG ORAL CAPSULE 1 tab by mouth 3 times daily 2011 AMOXICILLIN 80796602877 No Longer Active Alden Kim MD Active CALCIUM 500 MG ORAL TABLET TAKE 3 TABS DAILY CALCIUM 62363543130 No Longer Active Mariaa Whitman APRN Active MULTIVITAMINS TABS TAKE 1 TAB DAILY MULTIPLE VITAMIN No Longer Active Aneta Tavarezum ASSISTANT BOOKKEEPER Active TYLENOL 325 MG ORAL TABLET NEEDED ACETAMINOPHEN 04508223648 Active Aneta Tavarezum ASSISTANT BOOKKEEPER Active GLUCOSAMINE-CHONDROITIN 500-400 MG ORAL TABLET TAKE 1 TAB DAILY GLUCOSAMINE-CHONDROITIN 29514364394 Active Aneta Bailey LPN Active NORVASC 10 MG ORAL TABLET TAKE 1 TAB DAILY AMLODIPINE BESYLATE 95036272142 Active Aneta Tavarezum ASSISTANT BOOKKEEPER Active LOVASTATIN 20 MG ORAL TABLET 1 PO Q HS FOR CHOLESTEROL LOVASTATIN 76652835173 Active HEDY Esquivel Active ALENDRONATE SODIUM 70 MG ORAL TABLET TAKE 1 TAB ONCE A WEEK 01/20 ALENDRONATE SODIUM 70 MG ORAL TABLET 672779 ALENDRONATE SODIUM Inactive ADULT ASPIRIN EC LOW STRENGTH 81 MG ORAL TABLET DELAYED RELEASE TAKE 1 TAB DAILY ADULT ASPIRIN EC LOW STRENGTH 81 MG ORAL TABLET DELAYED RELEASE 855290 ASPIRIN Inactive ALPRAZOLAM 0.25 MG ORAL TABLET 1/2-1 tablet by mouth twice a day as needed for stress ALPRAZOLAM 0.25 MG ORAL TABLET 210134 ALPRAZOLAM Inactive COLACE 100 MG ORAL CAPSULE 1 po BID PRN Constipation COLACE 100 MG ORAL CAPSULE 8106583 DOCUSATE SODIUM Inactive ADVIL 200 MG ORAL TABLET TAKE NEEDED ADVIL 200 MG ORAL TABLET 823529 IBUPROFEN Inactive BENADRYL ALLERGY 25 MG ORAL TABLET NEEDED BENADRYL ALLERGY 25 MG ORAL TABLET 2100153 DIPHENHYDRAMINE HCL Inactive FLONASE ALLERGY RELIEF 50 MCG/ACT NASAL SUSPENSION One spray each nostril daily for allergies FLONASE ALLERGY RELIEF 50 MCG/ACT NASAL SUSPENSION 7731102 FLUTICASONE PROPIONATE Inactive MIRALAX ORAL PACKET Takes daily prn MIRALAX ORAL PACKET 738021 POLYETHYLENE GLYCOL 3350 Inactive AUGMENTIN 875-125 MG ORAL TABLET 1 po BID x 7 days AUGMENTIN 875-125 MG ORAL TABLET 550222 AMOXICILLIN-POT CLAVULANATE Inactive HYDROCHLOROTHIAZIDE 12.5 MG ORAL CAPSULE 1 pill by mouth daily, for blood pressure HYDROCHLOROTHIAZIDE 12.5 MG ORAL CAPSULE HYDROCHLOROTHIAZIDE Inactive CIPRO 250 MG ORAL TABLET 1 tab BID for 7 days CIPRO 250 MG ORAL TABLET 895185 CIPROFLOXACIN HCL Inactive VITAMIN D3 2000 UNIT ORAL TABLET 1 daily, for vitamin D deficiency VITAMIN D3 2000 UNIT ORAL TABLET CHOLECALCIFEROL Inactive PREDNISONE 10 MG ORAL TABLET 2 daily for 5 days then 1 daily for 5 days 05/25 PREDNISONE 10 MG ORAL TABLET 208788 PREDNISONE Inactive HYDROCHLOROTHIAZIDE 12.5 MG ORAL CAPSULE 1 pill by mouth daily HYDROCHLOROTHIAZIDE 12.5 MG ORAL CAPSULE HYDROCHLOROTHIAZIDE Inactive AMOXICILLIN 500 MG ORAL CAPSULE 1 tab by mouth 3 times daily 2011 AMOXICILLIN 500 MG ORAL CAPSULE 213947 AMOXICILLIN Inactive BACTRIM DS 800-160 MG ORAL TABLET 1 pill by mouth twice daily, for UTI 01/29 BACTRIM DS 800-160 MG ORAL TABLET 887770 SULFAMETHOXAZOLE- TRIMETHOPRIM Inactive MACROBID 100 MG ORAL CAPSULE 1 tab BID for 5 days MACROBID 100 MG ORAL CAPSULE 9587878 NITROFURANTOIN MONOHYD MACRO Inactive Advance Directives Directive [...] Value Unit Range Description blood pressure, diastolic 59 mm[Hg] BP womack blood pressure, systolic 137 mm[Hg] BP sys height E&M 64.5 [in_us] Bdy height pulse rate E&M 63 /min Heart rate temperature E&M 98.3 [degF] Body temperature weight E&M 183 [lb_av] Weight Measured blood pressure, diastolic 57 mm[Hg] BP womack [...] Panel - Chemistry sodium, serum 132 mmol/L 209-899 9561/08/09 urea nitrogen, blood 14 mg/dL 7-18 creatinine, serum 1.16 mg/dL 0.60-1.30 potassium, serum 4.2 mmol/L 3.5-5.2 chloride, serum 99 mmol/L 98-107 carbon dioxide, venous blood 24.7 mmol/L 21.0-32.0 blood glucose 119 mg/dL 65-110 calcium, serum 8.5 mg/dL 8.5-10.1 Lab Report: CBC-QUEST, COMPREHENSIVE METABOLIC PANEL, LIPID PANEL, Micro ... - Chemistry cholesterol, serum 162 mg/dL 331-941 1702/05/01 HDL cholesterol, serum 68 mg/dL > OR=46 triglyceride, serum, fasting 96 mg/dL <150 LDL cholesterol, serum 75 MG/DL (CALC) mg/dL <130 cholesterol/HDL ratio, serum 2.4 (calc) < OR=5.0 Lab Report: CBC-QUEST, COMPREHENSIVE METABOLIC PANEL, LIPID PANEL, Micro ... - Hematology mean corpuscular hemoglobin, RBC 29.5 pg 27.0-33.0 mean corpuscular hemoglobin concentration, RBC 34.1 G/DL % 32.0- 36.0 red blood cell distribution width 16.2 % 11.0-15.0 platelet count 297 THOUSAND/UL 10*3/mm3 699-889 2571/05/01 mean platelet volume 8.9 fL 7.5-12.5 mean corpuscular volume, RBC 86.4 fL 80.0-100.0 hematocrit, blood 34.2 % 35.0-45.0 hemoglobin, blood 11.7 g/dL 11.7-15.5 erythrocyte (RBC) count 3.95 MILLION/UL 10*6/mm3 3.80-5.10 leukocyte count, blood 6.0 THOUSAND/UL 10*3/mm3 3.8-10.8 Lab Report: CBC-QUEST, COMPREHENSIVE METABOLIC PANEL, LIPID PANEL, Micro ... - Urinalysis microalbumin/total urine volume <0.2 mg/dL mg/L microalbumin/creatinine ratio, urine NOTE mcg/mg creat mg/L <30 Lab Report: Erythrocyte Sed Rate, Thyroid Stimulating Hormone (L), Basic ... - Chemistry TSH 1.13 m[iU]/mL 0.36-3.74 calcium, serum 9.2 mg/dL 8.5-10.1 urea nitrogen, blood 15 mg/dL 7-18 creatinine, serum 1.18 mg/dL 0.60-1.30 sodium, serum 139 mmol/L 239-090 0386/01/10 potassium, serum 3.8 mmol/L 3.5-5.2 chloride, serum 101 mmol/L 98-107 carbon dioxide, venous blood 24.4 mmol/L 21.0-32.0 blood glucose 101 mg/dL 65-110 Lab Report: UADIP W/MICRO, AUTO - Chemistry RBC, urine, dipstick 1+ Negative protein, total urine random Negative mg/dL Negative Lab Report: UADIP W/MICRO, AUTO - Urinalysis glucose, urine, semiquantitative Negative Negative urobilinogen, urine, semiquantitative (dipstick) 0.2 E.U./dL Normal leukocyte esterase, urine, by dipstick 3+ Negative nitrite, urine, semiquantitative Negative Negative appearance, urine Cloudy Clear specific gravity, urine 1.010 1.000-1.030 pH, urine, semiquantitative 6.5 5.0-8.5 urine color Light yellow Colorless;Lightyellow;Straw;Yellow ketones, urine, by test strip Negative Negative bilirubin, urine Negative Negative Encounters Code Encounter Date Provider Facility CPT-15583 Level 4 Est. Patient 11:50:58 INSTRUMENT AND ELECTRICAL TECHNICIAN Jalil Hayes MD [facility] CPT-68025 Level 4 Est. Patient 12:35:27 INSTRUMENT AND ELECTRICAL TECHNICIAN Jalil Hayes MD [facility] CPT-60490 Level 3 Est. Patient 13:55:49 CDT Jalil Hayes MD [facility] CPT-43723 Level 3 Est. Patient 14:38:15 CDT Jalil Hayes MD [facility]-84737 Level 4 Est. Patient 14:40:54 CDT Bee Rosas [facility] CPT-34226 Level 4 Est. Patient 10:31:15 CDT Jalil Hayes MD [facility]-91066 Level 4 Est. Patient 15:07:54 CDT Mariaa Whitman [facility] CPT-09436 Level 3 Est. Patient 20:45:54 INSTRUMENT AND ELECTRICAL TECHNICIAN Mariaa Lauxuanbeckie [facility] CPT-56802 Level 3 Est. Patient 12:16:16 CDT Ana Cristina Vallejo MD PhD [facility]-69064 Level 4 Est. Patient 12:49:21 CDT Ana Cristina [facility] CPT-01785 Level 4 Est. Patient 23:02:25 CDT Ana Cristina Vallejo MD [facility] CPT-22903 Level 4 Est. Patient 19:26:33 INSTRUMENT AND ELECTRICAL TECHNICIAN Ana Cristina Vallejo MD [facility] CPT-92841 Level 4 Est. Patient 11:28:14 CDT Ana Cristina Vallejo MD [facility] CPT-77020 Level 4 Est. Patient 15:35:46 INSTRUMENT AND ELECTRICAL TECHNICIAN Ana Cristina Vallejo MD [facility] CPT-29336 Level 3 Est. Patient 21:06:39 INSTRUMENT AND ELECTRICAL TECHNICIAN Alden Kim MD [facility] CPT-24249 Level 4 Est. Patient 15:30:54 INSTRUMENT AND ELECTRICAL TECHNICIAN Ana Cristina Vallejo MD PhD [facility] Procedures Code Procedure Name Date Entry Date Standard Description CPT-G0439 [facility] Annual Wellness Exam 11:53:01 INSTRUMENT AND ELECTRICAL TECHNICIAN CPT-27663 First Vx - Ix admin for Medicare patients 13:35:01 CDT CPT-96384 Fluzone High-Dose Intramuscular Suspension 13:35:01 CDT CPT-TCMM Transitional Care Mgmt-Moderate 14:41:55 CDT CPT-67571 EKG Trac and Interp - XRAY USE ONLY 10:35:11 CDT 09/11 CPT-00454 Chest 2V Frontal and Lat - XRAY USE ONLY 10:35:11 CDT CPT-G0438 Initial Annual Wellness Exam 14:54:07 CDT CPT-G0009 Administration of Pneumococcal Vaccine 14:44:24 CDT CPT-67013 Pneumovax 23 Injection Injectable 25 MCG/0.5ML 14:44:24 CDT CPT-55661 First Vx - Ix admin for Medicare patients 14:44:24 CDT CPT-90503 Fluzone High-Dose Intramuscular Suspension 14:44:20 CDT CPT-74894 BMP - LAB USE ONLY 12:38:06 CDT CPT-04810 Urine Culture - LAB USE ONLY 16:56:33 CDT CPT-TCMM Transitional Care Mgmt-Moderate 18:08:16 CDT CPT-56440 Bone Density 09:14:12 CDT CPT-000 Give Appropriate Flu Vaccine 14:51:52 CDT CPT-39552 Fluzone High Dose (>=65 yrs.) 15:19:23 CDT CPT-48268 Immunization Single Admin 15:19:23 CDT CPT-69571 Prevnar 13 15:40:03 CDT CPT-48971 Administration single or combination vaccine inc oral 15 :40:03 CDT CPT-15781 Prevnar 13 13:55:07 CDT CPT-G0008 Administration of Influenza Virus Vaccine 10:49:51 CDT CPT-71685 Fluzone High-Dose Intramuscular Suspension 10:49:51 CDT CPT-58709 Knee 3V 13:31:37 CDT CPT-30858 Bone Density 09:07:05 INSTRUMENT AND ELECTRICAL TECHNICIAN CPT-91141 Nail Avulsion 09:46:05 CDT CPT-65240 Administration single or combination vaccine inc oral 16 :11:54 CDT CPT-14415 Influenza High Dose age 65+ 16:11:54 CDT CPT-79326 Administration single or combination vaccine inc oral 10 :53:15 CDT CPT-37757 Influenza High Dose age 65+ 10:53:15 CDT CPT-38984 Bone Density 14:50:58 INSTRUMENT AND ELECTRICAL TECHNICIAN CPT-83042 Administration single or combination vaccine inc oral 15 :41:20 INSTRUMENT AND ELECTRICAL TECHNICIAN CPT-00364 Zoster Vaccine (Zostavax) 15:41:20 INSTRUMENT AND ELECTRICAL TECHNICIAN CPT-18738 Spec Collection and Handling Fee 11:18:25 INSTRUMENT AND ELECTRICAL TECHNICIAN CPT-19342 Administration single or combination vaccine inc oral 11 :14:20 CDT CPT-42597 Influenza High Dose age 65+ 11:14:20 CDT
--- OUTSIDE RECORDS SUMMARY | 2017-07-18 07:57 | XMS REPORT | Clinical Summary ---
Author Author Admin, DANDRE Organization [facility] [employer] Address Unknown Phone Unavailable Allergies, Adverse Reactions, Alerts Allergy Name Reaction Description Start Date Severity Status Provider NKDA Critical Active Mariaa Whitman SURGERY TECHNICIAN Conditions or Problems Problem Name Problem Code Onset Date Status Entry Date Provider Comment Standard Description Annotate ROUTINE GYNECOLOGICAL EXAMINATION V72.31 Resolved Ana Cristina Vallejo MD PhD Routine gynecological examination MENOPAUSE 627.2 Ruled out Ana Cristina Vallejo MD PhD Symptomatic menopausal or female climacteric states MENOPAUSE 627.2 Active Brianda Reis [facility] Symptomatic menopausal or female climacteric [...] Heart disease, unspecified Dysuria 788.1 Resolved Jalil Haeys MD Dysuria Forgetfulness 780.99 Active Radha Jones SURGERY TECHNICIAN Other general symptoms Unsteady gait 781.2 Active [...] 1 daily for 5 days 05/25 PREDNISONE 16305545138 Active Deepti Junior LPN Active VITAMIN D3 2000 UNIT ORAL TABLET 1 daily, for vitamin D deficiency CHOLECALCIFEROL 61428696296 No Longer Active Radha Jones APRN Active CIPRO 250 MG ORAL TABLET 1 tab BID for 7 days CIPROFLOXACIN HCL 10789713539 No Longer Active Radha Jones APRN Active VITAMIN D3 2000 UNIT ORAL CAPSULE 1 capsule po daily CHOLECALCIFEROL 11157085386 Active Aneta D Leo YULIET Active EQL ONE DAILY WOMENS ORAL TABLET 1 po daily MULTIPLE VITAMINS- CALCIUM 47041149061 Active Aneta Tavarezum YULIET Active MACROBID 100 MG ORAL CAPSULE 1 tab BID for 5 days NITROFURANTOIN MONOHYD MACRO 57986132549 No Longer Active Deepti Junior LPN Active HYDROCHLOROTHIAZIDE 12.5 MG ORAL CAPSULE 1 pill by mouth daily HYDROCHLOROTHIAZIDE 55081528096 Active Jalil Hayes MD Active RANITIDINE HCL 150 MG ORAL CAPSULE once nightly RANITIDINE HCL 98202877880 Active Jalil Hayes MD Active BENAZEPRIL HCL 40 MG ORAL TABLET 1 daily for blood pressure BENAZEPRIL HCL 64151390717 Active Jalil Hayes MD Active HYDROCHLOROTHIAZIDE 12.5 MG ORAL CAPSULE 1 pill by mouth daily, for blood pressure HYDROCHLOROTHIAZIDE 16955753046 No Longer Active Jalil Hayes MD Active AUGMENTIN 875-125 MG ORAL TABLET 1 po BID x 7 days AMOXICILLIN-POT CLAVULANATE 29832160594 No Longer Active Jalil Hayse MD Active OMEPRAZOLE 40 MG ORAL CAPSULE DELAYED RELEASE 1 po q a.m. OMEPRAZOLE 89349542616 Active HEDY Esquivel Active MIRALAX ORAL PACKET Takes daily prn POLYETHYLENE GLYCOL 3350 81753635260 No Longer Active Peggy Pardo LPN Active FLONASE ALLERGY RELIEF 50 MCG/ACT NASAL SUSPENSION One spray each nostril daily for allergies FLUTICASONE PROPIONATE 32829150707 No Longer Active Peggy Pardo LPN Active BENADRYL ALLERGY 25 MG ORAL TABLET NEEDED DIPHENHYDRAMINE HCL 69546826789 No Longer Active Peggy Pardo LPN Active ADVIL 200 MG ORAL TABLET TAKE NEEDED IBUPROFEN 36742150631 No Longer Active Peggy Pardo LPN Active COLACE 100 MG ORAL CAPSULE 1 po BID PRN Constipation DOCUSATE SODIUM 51900945757 No Longer Active Deepti Junior LPN Active ALPRAZOLAM 0.25 MG ORAL TABLET 1/2-1 tablet by mouth twice a day as needed for stress ALPRAZOLAM 64826467863 No Longer Active Deepti Junior LPN Active ALENDRONATE SODIUM 70 MG ORAL TABLET 1 pill by mouth weekly for osteoporosis ALENDRONATE SODIUM 11314549749 Active Mariaa Whitman APRN Active E-1000 1000 UNIT ORAL CAPSULE Take one by mouth daily VITAMIN E 28519851701 Active Aneta Bailey LPN Active OSCAL 500/200 D-3 500-200 MG-UNIT ORAL TABLET Take one by mouth 3 times daily , morning, afternoon and evening.] CALCIUM CARBONATE-VITAMIN D 74573349528 Active Aneta Bailey LPN Active ASPIRIN 81 MG ORAL TABLET CHEWABLE 1 tablet by mouth daily ASPIRIN 65064825610 Active Aneta Bailey LPN Active ADULT ASPIRIN EC LOW STRENGTH 81 MG ORAL TABLET DELAYED RELEASE TAKE 1 TAB DAILY ASPIRIN 78289882114 No Longer Active Mariaa Whitman APRN Active ALENDRONATE SODIUM 70 MG ORAL TABLET TAKE 1 TAB ONCE A WEEK 01/20 ALENDRONATE SODIUM 52292706870 No Longer Active Mariaa Whitman APRN Active CETIRIZINE HCL 10 MG ORAL TABLET 1 po qd PRN Allergies CETIRIZINE HCL 83606348146 Active HEDY Esquivel Active BACTRIM DS 800-160 MG ORAL TABLET 1 pill by mouth twice daily, for UTI 01/29 SULFAMETHOXAZOLE-TRIMETHOPRIM 62875072691 No Longer Active Ana Cristina Vallejo MD PhD Active CARVEDILOL 25 MG ORAL TABLET 1 pill by mouth twice daily for blood pressure CARVEDILOL 28915757180 Active Aneta Tavarezum [employer]ST FOOD SERVER Active SYNTHROID 88 MCG ORAL TABLET 1 tablet by mouth daily for thyroid LEVOTHYROXINE SODIUM 13802036588 Active HEDY Esquivel Active AMOXICILLIN 500 MG ORAL CAPSULE 1 tab by mouth 3 times daily 2011 AMOXICILLIN 60456589783 No Longer Active Alden Kim MD Active CALCIUM 500 MG ORAL TABLET TAKE 3 TABS DAILY CALCIUM 71858869726 No Longer Active Mariaa Antonette SURGERY TECHNICIAN Active MULTIVITAMINS TABS TAKE 1 TAB DAILY MULTIPLE VITAMIN No Longer Active Aneta Tavarezum FAST FOOD SERVER Active TYLENOL 325 MG ORAL TABLET NEEDED ACETAMINOPHEN 54055612622 Active Aneta Tavarezum FAST FOOD SERVER Active GLUCOSAMINE-CHONDROITIN 500-400 MG ORAL TABLET TAKE 1 TAB DAILY GLUCOSAMINE-CHONDROITIN 74428698924 Active Aneta Tavarezum [employer] FOOD SERVER Active NORVASC 10 MG ORAL TABLET TAKE 1 TAB DAILY AMLODIPINE BESYLATE 73540322103 Active Aneta Tavarezum [employer] FOOD SERVER Active LOVASTATIN 20 MG ORAL TABLET 1 PO Q HS FOR CHOLESTEROL LOVASTATIN 46963808612 Active HEDY Esquivel Active ALENDRONATE SODIUM 70 MG ORAL TABLET TAKE 1 TAB ONCE A WEEK 01/20 ALENDRONATE SODIUM 70 MG ORAL TABLET 069893 ALENDRONATE SODIUM Inactive ADULT ASPIRIN EC LOW STRENGTH 81 MG ORAL TABLET DELAYED RELEASE TAKE 1 TAB DAILY ADULT ASPIRIN EC LOW STRENGTH 81 MG ORAL TABLET DELAYED RELEASE 619016 ASPIRIN Inactive ALPRAZOLAM 0.25 MG ORAL TABLET 1/2-1 tablet by mouth twice a day as needed for stress ALPRAZOLAM 0.25 MG ORAL TABLET 182589 ALPRAZOLAM Inactive COLACE 100 MG ORAL CAPSULE 1 po BID PRN Constipation COLACE 100 MG ORAL CAPSULE 5093357 DOCUSATE SODIUM Inactive ADVIL 200 MG ORAL TABLET TAKE NEEDED ADVIL 200 MG ORAL TABLET 507878 IBUPROFEN Inactive BENADRYL ALLERGY 25 MG ORAL TABLET NEEDED BENADRYL ALLERGY 25 MG ORAL TABLET 3774156 DIPHENHYDRAMINE HCL Inactive FLONASE ALLERGY RELIEF 50 MCG/ACT NASAL SUSPENSION One spray each nostril daily for allergies FLONASE ALLERGY RELIEF 50 MCG/ACT NASAL SUSPENSION 9465965 FLUTICASONE PROPIONATE Inactive MIRALAX ORAL PACKET Takes daily prn MIRALAX ORAL PACKET 772000 POLYETHYLENE GLYCOL 3350 Inactive AUGMENTIN 875-125 MG ORAL TABLET 1 po BID x 7 days AUGMENTIN 875-125 MG ORAL TABLET 262415 AMOXICILLIN-POT CLAVULANATE Inactive HYDROCHLOROTHIAZIDE 12.5 MG ORAL CAPSULE 1 pill by mouth daily, for blood pressure HYDROCHLOROTHIAZIDE 12.5 MG ORAL CAPSULE 629240 HYDROCHLOROTHIAZIDE Inactive CIPRO 250 MG ORAL TABLET 1 tab BID for 7 days CIPRO 250 MG ORAL TABLET 266833 CIPROFLOXACIN HCL Inactive VITAMIN D3 2000 UNIT ORAL TABLET 1 daily, for vitamin D deficiency VITAMIN D3 2000 UNIT ORAL TABLET CHOLECALCIFEROL Inactive AMOXICILLIN 500 MG ORAL CAPSULE 1 tab by mouth 3 times daily 2011 AMOXICILLIN 500 MG ORAL CAPSULE 460943 AMOXICILLIN Inactive BACTRIM DS 800-160 MG ORAL TABLET 1 pill by mouth twice daily, for UTI 01/29 BACTRIM DS 800-160 MG ORAL TABLET 310161 SULFAMETHOXAZOLE- TRIMETHOPRIM Inactive MACROBID 100 MG ORAL CAPSULE 1 tab BID for 5 days MACROBID 100 MG ORAL CAPSULE 8505104 NITROFURANTOIN MONOHYD MACRO Inactive Advance Directives Directive [...] Panel - Chemistry sodium, serum 132 mmol/L 017-714 6063/08/09 potassium, serum 4.2 mmol/L 3.5-5.2 chloride, serum 99 mmol/L 98-107 carbon dioxide, venous blood 24.7 mmol/L 21.0-32.0 blood glucose 119 mg/dL 65-110 calcium, serum 8.5 mg/dL 8.5-10.1 urea nitrogen, blood 14 mg/dL 7-18 creatinine, serum 1.16 mg/dL 0.60-1.30 Lab Report: CBC-QUEST, COMPREHENSIVE METABOLIC PANEL, LIPID PANEL, Micro ... - Chemistry cholesterol, serum 162 mg/dL 494-465 9510/05/01 HDL cholesterol, serum 68 mg/dL > OR=46 [...] % 11.0-15.0 platelet count 297 THOUSAND/UL 10*3/mm3 529-339 2340/05/01 mean platelet volume 8.9 fL 7.5-12.5 Lab Report: CBC-QUEST, COMPREHENSIVE METABOLIC PANEL, LIPID PANEL, Micro ... - Urinalysis microalbumin/total urine volume <0.2 mg/dL mg/L microalbumin/creatinine ratio, urine NOTE mcg/mg creat mg/L <30 Lab Report: Erythrocyte Sed Rate, Thyroid Stimulating Hormone (L), Basic ... - Chemistry TSH 1.13 m[iU]/mL 0.36-3.74 sodium, serum 139 mmol/L 902-976 2660/01/10 potassium, serum 3.8 mmol/L 3.5-5.2 chloride, serum [...] 5.0-8.5 Encounters Code Encounter Date Provider Facility [id number] Level 4 Est. Patient 12:35:27 CLINICAL ASSOCIATE Jalil Hayes MD [facility]22851 Level 3 Est. Patient 13:55:49 CDT Jalil Hayes MD [facility]82364 Level 3 Est. Patient 14:38:15 CDT Jalil Hayes MD [facility]25702 Level 4 Est. Patient 14:40:54 CDT Bee Rosas [facility]30907 Level 4 Est. Patient 10:31:15 CDT Jalil Hayes MD [facility]84016 Level 4 Est. Patient 15:07:54 CDT Mariaa Whitman [facility]17872 Level 3 Est. Patient 20:45:54 CLINICAL ASSOCIATE Mariaa Whitman [facility]-59913 Level 3 Est. Patient 12:16:16 CDT Ana Cristina Vallejo MD [facility]54280 Level 4 Est. Patient 12:49:21 CDT Ana Cristina Vallejo MD [facility]62893 Level 4 Est. Patient 23:02:25 CDT Ana Cristina Vallejo MD [facility]46698 Level 4 Est. Patient 19:26:33 CLINICAL ASSOCIATE Ana Cristina Vallejo MD [facility]56991 Level 4 Est. Patient 11:28:14 CDT Ana Cristina Vallejo MD PhD [facility] CPT-99272 Level 4 Est. Patient 15:35:46 CLINICAL ASSOCIATE Ana Cristina Vallejo MD PhD [facility] CPT-30968 Level 3 Est. Patient 21:06:39 CLINICAL ASSOCIATE Alden Kim MD [facility] CPT-05580 Level 4 Est. Patient 15:30:54 CLINICAL ASSOCIATE Ana Cristina Vallejo MD PhD [facility] Procedures Code Procedure Name Date Entry Date Standard Description CPT-G0439 Subsequent Annual Wellness Exam 11:53:01 CLINICAL ASSOCIATE CPT-83685 First Vx - Ix admin for Medicare patients 13:35:01 CDT CPT-85542 Fluzone High-Dose Intramuscular Suspension 13:35:01 CDT CPT-TCMM Transitional Care Mgmt-Moderate 14:41:55 CDT CPT-30939 EKG Trac and Interp - XRAY USE ONLY 10:35:11 CDT 09/11 CPT-31668 Chest 2V Frontal and Lat - XRAY USE ONLY 10:35:11 CDT CPT-G0438 Initial Annual Wellness Exam 14:54:07 CDT CPT-G0009 Administration of Pneumococcal Vaccine 14:44:24 CDT CPT-15298 Pneumovax 23 Injection Injectable 25 MCG/0.5ML 14:44:24 CDT CPT-24273 First Vx - Ix admin for Medicare patients 14:44:24 CDT CPT-26390 Fluzone High-Dose Intramuscular Suspension 14:44:20 CDT CPT-98839 BMP - LAB USE ONLY 12:38:06 CDT CPT-79125 Urine Culture - LAB USE ONLY 16:56:33 CDT CPT-TCMM Transitional Care Mgmt-Moderate 18:08:16 CDT CPT-01501 Bone Density 09:14:12 CDT CPT-000 Give Appropriate Flu Vaccine 14:51:52 CDT CPT-83650 Fluzone High Dose (>=65 yrs.) 15:19:23 CDT CPT-37051 Immunization Single Admin 15:19:23 CDT CPT-75982 Prevnar 13 15:40:03 CDT CPT-45400 Administration single or combination vaccine inc oral 15 :40:03 CDT CPT-82583 Prevnar 13 13:55:07 CDT CPT-G0008 Administration of Influenza Virus Vaccine 10:49:51 CDT CPT-38751 Fluzone High-Dose Intramuscular Suspension 10:49:51 CDT CPT-44772 Knee 3V 13:31:37 CDT CPT-03840 Bone Density 09:07:05 CLINICAL ASSOCIATE CPT-17428 Nail Avulsion 09:46:05 CDT CPT-64587 Administration single or combination vaccine inc oral 16 :11:54 CDT CPT-55141 Influenza High Dose age 65+ 16:11:54 CDT CPT-41009 Administration single or combination vaccine inc oral 10 :53:15 CDT CPT-30063 Influenza High Dose age 65+ 10:53:15 CDT CPT-69701 Bone Density 14:50:58 CLINICAL ASSOCIATE CPT-55101 Administration single or combination vaccine inc oral 15 :41:20 CLINICAL ASSOCIATE CPT-82010 Zoster Vaccine (Zostavax) 15:41:20 CLINICAL ASSOCIATE CPT-85008 Spec Collection and Handling Fee 11:18:25 CLINICAL ASSOCIATE CPT-52354 Administration single or combination vaccine inc oral 11 :14:20 CDT CPT-89574 Influenza High Dose age 65+ 11:14:20 CDT
--- OUTSIDE RECORDS SUMMARY | 2017-07-18 07:58 | XMS REPORT | Clinical Summary ---
Author Author Admin, DANDRE Organization [facility] [employer] Address Unknown Phone Unavailable Allergies, Adverse Reactions, Alerts Allergy Name Reaction Description Start Date Severity Status Provider NKDA Critical Active Mariaa Whitman OFFAL BALER Conditions or Problems Problem Name Problem Code Onset Date Status Entry Date Provider Comment Standard Description Annotate ROUTINE GYNECOLOGICAL EXAMINATION V72.31 Resolved Ana Cristina Vallejo MD PhD Routine gynecological examination MENOPAUSE 627.2 Ruled out Ana Cristina Vallejo MD PhD Symptomatic menopausal or female climacteric states MENOPAUSE 627.2 Active Brianda Resi [facility] Symptomatic menopausal or female climacteric states [...] Active Jalil Hayes MD Heart disease, unspecified ROUTINE GYNECOLOGICAL EXAMINATION ICD-V72.31 Inactive Ana [...] Generic Name NDC Status Provider Patient Instruction HYDROCHLOROTHIAZIDE 12.5 MG CAPS 1 pill by mouth daily HYDROCHLOROTHIAZIDE 78664111712 Active Jalil Hayes MD Active RANITIDINE HCL 150 MG CAPS once nightly RANITIDINE HCL 44624021922 Active Jalil Hayes MD Active BENAZEPRIL HCL 40 MG TABS 1 daily for blood pressure BENAZEPRIL HCL 57766601506 Active Jalil Hayes MD Active HYDROCHLOROTHIAZIDE 12.5 MG CAPS 1 pill by mouth daily, for blood pressure HYDROCHLOROTHIAZIDE 42254337150 No Longer Active Jalil Hayes MD Active AUGMENTIN 875-125 MG TAB 1 po BID x 7 days AMOXICILLIN-POT CLAVULANATE 44735678777 No Longer Active Jalil Hayes MD Active OMEPRAZOLE 40 MG CPDR 1 po q a.m. OMEPRAZOLE 06875645704 Active Peggy Pardo LPN Active MIRALAX ORAL PACK Takes daily prn POLYETHYLENE GLYCOL 3350 66613889722 No Longer Active Peggy Pardo LPN Active FLONASE ALLERGY RELIEF 50 MCG/ACT NASAL SUSP One spray each nostril daily for allergies FLUTICASONE PROPIONATE 17697253207 No Longer Active Peggy Pardo LPN Active BENADRYL ALLERGY 25 MG TABS NEEDED DIPHENHYDRAMINE HCL 81367667083 No Longer Active Peggy Pardo LPN Active ADVIL 200 MG TABS TAKE NEEDED IBUPROFEN 47598501107 No Longer Active Peggy Pardo LPN Active COLACE 100 MG CAP 1 po BID PRN Constipation DOCUSATE SODIUM 54363969949 No Longer Active Deepti Junior LPN Active ALPRAZOLAM 0.25 MG TAB 1/2-1 tablet by mouth twice a day as needed for stress ALPRAZOLAM 38331112805 No Longer Active Deepti Junior LPN Active ALENDRONATE SODIUM 70 MG TABS 1 pill by mouth weekly for osteoporosis ALENDRONATE SODIUM 52716560280 Active Brianda Reis [facility] Active E-1000 1000 UNIT ORAL CAPS Take one by mouth daily VITAMIN E 08693537252 Active Brianda Bergerford [facility] Active OSCAL 500/200 D-3 500-200 MG-UNIT ORAL TABS Take one by mouth 3 times daily, morning, afternoon and evening.] CALCIUM CARBONATE-VITAMIN D 67567190724 Active Brianda Bergerford [facility] Active ASPIRIN 81 MG CHEW TAB 1 tablet by mouth daily ASPIRIN 43877956272 Active Brianda Bergerford [facility] Active ADULT ASPIRIN EC LOW STRENGTH 81 MG TBEC TAKE 1 TAB DAILY ASPIRIN 14327477323 No Longer Active Mariaa Whitman APRN Active ALENDRONATE SODIUM 70 MG TABS TAKE 1 TAB ONCE A WEEK ALENDRONATE SODIUM 89096052161 No Longer Active Mariaa Whitman APRN Active CETIRIZINE HCL 10 MG ORAL TABS 1 po qd PRN Allergies CETIRIZINE HCL 92096949055 Active HEDY Esquivel Active BACTRIM DS 800-160 MG TABS 1 pill by mouth twice daily, for UTI SULFAMETHOXAZOLE-TRIMETHOPRIM 85249430689 No Longer Active Ana Cristina Vallejo MD PhD Active CARVEDILOL 25 MG TABS 1 pill by mouth twice daily for blood pressure CARVEDILOL 51308347650 Active HEDY Esquivel Active SYNTHROID 0.088 MG TAB 1 tablet by mouth daily for thyroid LEVOTHYROXINE SODIUM 52390314284 Active HEDY Esquivel Active AMOXICILLIN 500 MG CAP 1 tab by mouth 3 times daily AMOXICILLIN 02249425957 No Longer Active Alden Kim MD Active [facility] VITAMIN D3 1000 UNIT CAPS TAKE 2 CAP DAILY CHOLECALCIFEROL Active Ana Cristina Vallejo MD PhD Active CALCIUM 500 MG TABS TAKE 3 TABS DAILY CALCIUM 58263093870 No Longer Active Mariaa Whitman APRN Active MULTIVITAMINS TABS TAKE 1 TAB DAILY MULTIPLE VITAMIN Active Anetajeannie Tavarezum HYDRO ELECTRIC STATION OPERATOR Active TYLENOL 325 MG TABS NEEDED ACETAMINOPHEN 02631810043 Active Aneta Tavarezum HYDRO ELECTRIC STATION OPERATOR Active GLUCOSAMINE-CHONDROITIN 500-400 MG TABS TAKE 1 TAB DAILY GLUCOSAMINE-CHONDROITIN 54250548409 Active Mariaa Whitman APRN Active NORVASC 10 MG TABS TAKE 1 TAB DAILY AMLODIPINE BESYLATE 65165345815 Active HEDY Esquivel Active LOVASTATIN 20 MG TABS 1 PO Q HS FOR CHOLESTEROL LOVASTATIN 70257415325 Active HEDY Esquivel Active ALENDRONATE SODIUM 70 MG TABS TAKE 1 TAB ONCE A WEEK ALENDRONATE SODIUM 70 MG TABS 869911 ALENDRONATE SODIUM Inactive ADULT ASPIRIN EC LOW STRENGTH 81 MG TBEC TAKE 1 TAB DAILY ADULT ASPIRIN EC LOW STRENGTH 81 MG TBEC 544888 ASPIRIN Inactive ALPRAZOLAM 0.25 MG TAB 1/2-1 tablet by mouth twice a day as needed for stress ALPRAZOLAM 0.25 MG TAB 325472 ALPRAZOLAM Inactive COLACE 100 MG CAP 1 po BID PRN Constipation COLACE 100 MG CAP 0630813 DOCUSATE SODIUM Inactive ADVIL 200 MG TABS TAKE NEEDED ADVIL 200 MG TABS 123484 IBUPROFEN Inactive BENADRYL ALLERGY 25 MG TABS NEEDED BENADRYL ALLERGY 25 MG TABS 9794151 DIPHENHYDRAMINE HCL Inactive FLONASE ALLERGY RELIEF 50 MCG/ACT NASAL SUSP One spray each nostril daily for allergies FLONASE ALLERGY RELIEF 50 MCG/ACT NASAL SUSP 3555521 FLUTICASONE PROPIONATE Inactive MIRALAX ORAL PACK Takes daily prn MIRALAX ORAL PACK 952974 POLYETHYLENE GLYCOL 3350 Inactive AUGMENTIN 875-125 MG TAB 1 po BID x 7 days AUGMENTIN 875-125 MG TAB 179544 AMOXICILLIN-POT CLAVULANATE Inactive HYDROCHLOROTHIAZIDE 12.5 MG CAPS 1 pill by mouth daily, for blood pressure HYDROCHLOROTHIAZIDE 12.5 MG CAPS 216226 HYDROCHLOROTHIAZIDE Inactive AMOXICILLIN 500 MG CAP 1 tab by mouth 3 times daily AMOXICILLIN 500 MG CAP 283448 AMOXICILLIN Inactive BACTRIM DS 800-160 MG TABS 1 pill by mouth twice daily, for UTI BACTRIM DS 800-160 MG TABS 648712 SULFAMETHOXAZOLE-TRIMETHOPRIM Inactive Advance Directives Directive Description Start Date PERMISSION TO SHARE Immunizations Vaccine Administration Date Value Standard Description influenza immunization (Flu Vax) has been administered given influenza virus vaccine, unspecified formulation dT (Diphtheria and Tetanus) booster given TD Td(adult) unspecified formulation pneumococcal immunization administered Pneumovax 23 pneumococcal polysaccharide vaccine, 23 valent Vital Signs Date Name Value Unit Range Description blood pressure, diastolic 58 mm[Hg] BP womack [...] temperature weight E&M 176.0 [lb_av] Weight Measured blood pressure, diastolic 57 mm[Hg] BP womack blood pressure, systolic 136 mm[Hg] BP sys height E&M 64.5 [in_us] Bdy height pulse rate E&M 65 /min Heart rate temperature E&M 98.4 [degF] Body temperature weight E&M 166.5 [lb_av] Weight Measured blood pressure, diastolic 49 mm[Hg] BP womack blood pressure, systolic 146 mm[Hg] BP sys pulse rate E&M 68 /min Heart rate temperature E&M 98.7 [degF] Body temperature weight E&M 167 [lb_av] Weight Measured Diagnostic Results Date Name Value Unit Range Description Lab Report: Basic Metabolic Panel - Chemistry sodium, serum 130 mmol/L 162-418 7161/10/19 potassium, serum 3.5 mmol/L 3.5-5.2 chloride, serum 92 mmol/L 98-107 carbon dioxide, venous blood 33.6 mmol/L 21.0-32.0 blood glucose 118 mg/dL 65-110 calcium, serum 8.8 mg/dL 8.5-10.1 urea nitrogen, blood 11 mg/dL 7-18 creatinine, serum 1.12 mg/dL 0.55-1.30 Lab Report: CBC-QUEST, COMPREHENSIVE METABOLIC PANEL, LIPID PANEL, Micro ... - Chemistry cholesterol, serum 162 mg/dL 502-135 1927/05/01 HDL cholesterol, serum 68 mg/dL > OR=46 [...] % 11.0-15.0 platelet count 297 THOUSAND/UL 10*3/mm3 161-684 2110/05/01 mean platelet volume 8.9 fL 7.5-12.5 Lab [...] Negative Encounters Code Encounter Date Provider Facility CPT-11011 Level 3 Est. Patient 13:55:49 CDT Jalil Hayes MD [facility] CPT-62804 Level 3 Est. Patient 14:38:15 CDT Jalil Hayes MD [facility] CPT-26522 Level 4 Est. Patient 14:40:54 CDT eBe Rosas [facility] CPT-31754 Level 4 Est. Patient 10:31:15 CDT Jalil Hayes MD [facility] CPT-18228 Level 4 Est. Patient 15:07:54 CDT Mariaa Whitman [facility] CPT-60980 Level 3 Est. Patient 20:45:54 PACK ROOM OPERATOR Mariaa Whitman [facility] CPT-04124 Level 3 Est. Patient 12:16:16 CDT Ana Cristina Vallejo MD [facility] CPT-34137 Level 4 Est. Patient 12:49:21 CDT Ana Cristina Vallejo MD [facility] CPT-99721 Level 4 Est. Patient 23:02:25 CDT Ana Cristina Vallejo MD [facility] CPT-06852 Level 4 Est. Patient 19:26:33 PACK ROOM OPERATOR Ana Cristina Vallejo MD [facility]-47059 Level 4 Est. Patient 11:28:14 CDT Ana Cristina Vallejo MD [facility]-63974 Level 4 Est. Patient 15:35:46 PACK ROOM OPERATOR Ana Cristina Vallejo MD [facility] CPT-90149 Level 3 Est. Patient 21:06:39 PACK ROOM OPERATOR Alden Kim MD [facility] CPT-62197 Level 4 Est. Patient 15:30:54 PACK ROOM OPERATOR Ana Cristina Vallejo MD [facility] Procedures Code Procedure Name Date Entry Date Standard Description CPT-TCMM Transitional Care Mgmt-Moderate 14:41:55 CDT CPT-44727 EKG Trac and Interp - XRAY USE ONLY 10:35:11 CDT 09/11 CPT-26888 Chest 2V Frontal and Lat - XRAY USE ONLY 10:35:11 CDT CPT-G0438 Initial Annual Wellness Exam 14:54:07 CDT CPT-G0009 Administration of Pneumococcal Vaccine 14:44:24 CDT CPT-78367 Pneumovax 23 Injection Injectable 25 MCG/0.5ML 14:44:24 CDT CPT-37036 First Vx - Ix admin for Medicare patients 14:44:24 CDT CPT-09746 Fluzone High-Dose Intramuscular Suspension 14:44:20 CDT CPT-90155 BMP - LAB USE ONLY 12:38:06 CDT CPT-05588 Urine Culture - LAB USE ONLY 16:56:33 CDT CPT-TCMM Transitional Care Mgmt-Moderate 18:08:16 CDT CPT-03051 Bone Density 09:14:12 CDT CPT-000 Give Appropriate Flu Vaccine 14:51:52 CDT CPT-20919 Fluzone High Dose (>=65 yrs.) 15:19:23 CDT CPT-34134 Immunization Single Admin 15:19:23 CDT CPT-19721 Prevnar 13 15:40:03 CDT CPT-11891 Administration single or combination vaccine inc oral 15 :40:03 CDT CPT-34927 Prevnar 13 13:55:07 CDT CPT-G0008 Administration of Influenza Virus Vaccine 10:49:51 CDT CPT-26733 Fluzone High-Dose Intramuscular Suspension 10:49:51 CDT CPT-23299 Knee 3V 13:31:37 CDT CPT-63619 Bone Density 09:07:05 PACK ROOM OPERATOR CPT-33858 Nail Avulsion 09:46:05 CDT CPT-81864 Administration single or combination vaccine inc oral 16 :11:54 CDT CPT-19176 Influenza High Dose age 65+ 16:11:54 CDT CPT-33617 Administration single or combination vaccine inc oral 10 :53:15 CDT CPT-95213 Influenza High Dose age 65+ 10:53:15 CDT CPT-71297 Bone Density 14:50:58 PACK ROOM OPERATOR CPT-71650 Administration single or combination vaccine inc oral 15 :41:20 PACK ROOM OPERATOR CPT-58895 Zoster Vaccine (Zostavax) 15:41:20 PACK ROOM OPERATOR CPT-58628 Spec Collection and Handling Fee 11:18:25 PACK ROOM OPERATOR CPT-70462 Administration single or combination vaccine inc oral 11 :14:20 CDT CPT-31531 Influenza High Dose age 65+ 11:14:20 CDT
--- OUTSIDE RECORDS SUMMARY | 2017-07-18 07:58 | XMS REPORT | Clinical Summary ---
Author Author Admin, DANDRE Organization [facility] Address Unknown Phone Unavailable Allergies, Adverse Reactions, Alerts Allergy Name Reaction Description Start Date Severity Status Provider No Known Allergies Brianda Bergerford [facility] Conditions or Problems Problem Name Problem Code Onset Date Status Entry Date Provider Comment Standard Description Annotate ROUTINE GYNECOLOGICAL EXAMINATION V72.31 Resolved Ana Cristina Vallejo MD PhD Routine gynecological examination MENOPAUSE 627.2 Ruled out Ana Cristina Vallejo MD PhD Symptomatic menopausal or female climacteric states MENOPAUSE 627.2 Active Brianda Reis A Symptomatic menopausal or female climacteric states DIVERTICULOSIS, [...] hypothyroidism FH STROKE V17.1 Active Ana Cristina Vlalejo MD PhD Family history of stroke (cerebrovascular) [...] or localized, involving lower leg Sciatica 724.3 Active Ana Cristina Vallejo MD PhD Sciatica Sciatica, left 724.3 Active Ana Cristina Vallejo MD PhD Sciatica ROUTINE GYNECOLOGICAL EXAMINATION ICD-V72.31 Inactive Ana Cristina Vallejo MD PhD HEALTH SCREENING ICD-V70.0 Inactive Ana Cristina Vallejo MD PhD INGROWN TOENAIL ICD-703.0 Inactive Ana Cristina Vallejo MD PhD INGROWN TOENAIL, INFECTED ICD-703.0 Inactive Ana Cristina Vallejo MD PhD Medication List Medication Instructions Start Date Stop Date Generic Name NDC Status Provider Patient Instruction HYDROCHLOROTHIAZIDE 12.5 MG CAPS 1 pill by mouth daily, for blood pressure HYDROCHLOROTHIAZIDE 67810181545 Active Ana Cristina Vallejo MD PhD Active CARVEDILOL 25 MG TABS 1 pill by mouth twice daily for blood pressure CARVEDILOL 88206200852 Active Ana Cristina Vallejo MD PhD Active SYNTHROID 0.088 MG TAB 1 tablet by mouth daily for thyroid LEVOTHYROXINE SODIUM 42866837008 Active Ana Cristina Vallejo MD PhD Active AMOXICILLIN 500 MG CAP 1 tab by mouth 3 times daily AMOXICILLIN 85186973339 No Longer Active Alden Kim MD Active [facility] VITAMIN D3 1000 UNIT CAPS TAKE 2 CAP DAILY CHOLECALCIFEROL 27705061956 Active Ana Cristina Vallejo MD PhD Active CALCIUM 500 MG TABS TAKE 3 TABS DAILY CALCIUM 09152042920 Active Aneta Tavarezum WET CHEMISTRY ANALYST Active MULTIVITAMINS TABS TAKE 1 TAB DAILY MULTIPLE VITAMIN 92996572547 Active Aneta Tavarezum WET CHEMISTRY ANALYST Active BENADRYL ALLERGY 25 MG TABS NEEDED DIPHENHYDRAMINE HCL 08035377233 Active Aneta Tavarezum WET CHEMISTRY ANALYST Active TYLENOL 325 MG TABS NEEDED ACETAMINOPHEN 47361553317 Active Aneta Tavarezum WET CHEMISTRY ANALYST Active ADVIL 200 MG TABS TAKE NEEDED IBUPROFEN 75832590058 Active Aneta Tavarezum WET CHEMISTRY ANALYST Active ADULT ASPIRIN EC LOW STRENGTH 81 MG TBEC TAKE 1 TAB DAILY ASPIRIN 61634376559 Active Aneta Tavarezum WET CHEMISTRY ANALYST Active VITAMIN E NATURAL 400 UNIT CAPS TAKE 1 CAP DAILY VITAMIN E 74257107354 Active Aneta Tavarezum WET CHEMISTRY ANALYST Active GLUCOSAMINE-CHONDROITIN 500-400 MG TABS TAKE 1 TAB DAILY GLUCOSAMINE-CHONDROITIN 79254318703 Active Aneta Tavarezum WET CHEMISTRY ANALYST Active NORVASC 10 MG TABS TAKE 1 TAB DAILY AMLODIPINE BESYLATE 17577345659 Active Ana Cristina Vallejo MD PhD Active BENAZEPRIL HCL 40 MG TABS 1 PO BID BENAZEPRIL HCL 57378999565 Active Ana Cristina Vallejo MD PhD Active LOVASTATIN 20 MG TABS 1 PO Q HS FOR CHOLESTEROL LOVASTATIN 09014009402 Active Ana Cristina Vallejo MD PhD Active RANITIDINE HCL 150 MG CAPS 1 PO Q 12 HRS RANITIDINE HCL 43433858605 Active Ana Cristina Vallejo MD PhD Active ALENDRONATE SODIUM 70 MG TABS TAKE 1 TAB ONCE A WEEK ALENDRONATE SODIUM 25811838972 Active Ana Cristina Vallejo MD PhD Active AMOXICILLIN 500 MG CAP 1 tab by mouth 3 times daily AMOXICILLIN 500 MG CAP 301674 AMOXICILLIN Inactive Immunizations Vaccine Administration Date Value Standard Description influenza immunization (Flu Vax) has been administered given influenza virus vaccine, unspecified formulation dT (Diphtheria and Tetanus) booster given TD Td(adult) unspecified formulation pneumococcal immunization administered Pneumovax 23 pneumococcal polysaccharide vaccine, 23 valent Vital Signs Date Name Value Unit Range Description blood pressure, diastolic - 8462-4 55 mm[Hg] BP womack blood pressure, systolic - 8480-6 130 mm[Hg] BP sys pulse rate E&M - 8867-4 66 /min Heart rate temperature E&M 98.0 [degF] Body temperature weight E&M - 3141-9 179.12 [lb_av] Weight Measured blood pressure, diastolic - 8462-4 66 mm[Hg] BP womack blood pressure, systolic - 8480-6 177 mm[Hg] BP sys pulse rate E&M - 8867-4 65 /min Heart rate temperature E&M 97.6 [degF] Body temperature weight E&M - 3141-9 181 [lb_av] Weight Measured blood pressure, diastolic - 8462-4 70 mm[Hg] BP womack blood pressure, systolic - 8480-6 150 mm[Hg] BP sys height E&M - 8302-2 64.5 [in_us] Bdy height pulse rate E&M - 8867-4 67 /min Heart rate temperature E&M 98.7 [degF] Body temperature weight E&M - 3141-9 178 [lb_av] Weight Measured Diagnostic Results Date Name Value Unit Range Description Lab Report: Basic Metabolic Panel - Chemistry sodium, serum 136 mmol/L 131-241 0198/03/24 potassium, serum 4.3 mmol/L 3.5-5.2 chloride, serum 98 mmol/L 98-107 carbon dioxide, venous blood 28.8 mmol/L 21.0-32.0 blood glucose 94 mg/dL 65-110 calcium, serum 9.5 mg/dL 8.5-10.1 urea nitrogen, blood 10 mg/dL 7-18 creatinine, serum 1.10 mg/dL 0.60-1.30 Lab Report: CBC, Comp. Metabolic Panel, Lipid Panel, TSH, freeT4 - Chemistry sodium, serum 141 mmol/L 734-531 4327/08/05 potassium, serum 4.0 mmol/L 3.5-5.2 chloride, serum 104 mmol/L 98-107 carbon dioxide, venous blood 25.5 mmol/L 21.0-32.0 blood glucose 107 mg/dL 65-110 urea nitrogen, blood 11 mg/dL 7-18 creatinine, serum 1.10 mg/dL 0.60-1.30 alanine aminotransferase (SGPT), serum 20 U/L 12-78 aspartate aminotransferase (SGOT), serum 20 U/L 15-37 alkaline phosphatase, serum 45 U/L 50-136 calcium, serum 9.2 mg/dL 8.5-10.1 bilirubin, serum, total 0.40 mg/dL 0.00-1.00 cholesterol, serum 155 mg/dL 744-844 0431/08/05 triglyceride, serum, fasting 72 mg/dL 30-200 HDL cholesterol, serum 69 mg/dL 32-96 LDL cholesterol, serum 72 mg/dL 0-130 TSH 0.46 m[iU]/mL 0.36-3.74 thyroxine, serum, free 1.42 ng/dL 0.76-1.46 Lab Report: CBC, Comp. Metabolic Panel, Lipid Panel, TSH, freeT4 - Hematology leukocyte count, blood 5.5 10^3/MM^3 10*3/mm3 4.6-10.2 erythrocyte (RBC) count 3.91 10^6/MM^3 10*6/mm3 4.04-5.48 hemoglobin, blood 12.2 g/dL 12.0-16.0 hematocrit, blood 36.9 % 36.0-46.0 mean corpuscular volume, RBC 94 fL 80-97 mean corpuscular hemoglobin, RBC 31.2 pg 27.0-31.2 mean corpuscular hemoglobin concentration, RBC 33.1 G/DL % 31.8- 35.4 red blood cell distribution width 14.4 % 11.6-14.8 platelet count 227 10^3/MM^3 10*3/mm3 142-424 Lab Report: CBC, MICROALBUMIN - Chemistry albumin/creatinine ratio, urine < 30 mg/g mg/g{creat} 0-29 Lab Report: CBC, MICROALBUMIN - Hematology leukocyte count, blood 3.6 10^3/MM^3 10*3/mm3 4.6-10.2 erythrocyte (RBC) count 3.91 10^6/MM^3 10*6/mm3 4.04-5.48 hemoglobin, blood 12.3 g/dL 12.0-16.0 hematocrit, blood 36.4 % 36.0-46.0 mean corpuscular volume, RBC 93 fL 80-97 mean corpuscular hemoglobin, RBC 31.4 pg 27.0-31.2 mean corpuscular hemoglobin concentration, RBC 33.7 G/DL % 31.8- 35.4 red blood cell distribution width 14.2 % 11.6-14.8 platelet count 232 10^3/MM^3 10*3/mm3 142-424 Lab Report: CBC, MICROALBUMIN - Lab microalbumin, urine 10 0-19 Lab Report: Comp. Metabolic Panel, CKI, Lipid Panel, TSH, freeT4 - Chemistry sodium, serum 141 mmol/L 550-039 7717/03/13 potassium, serum 4.1 mmol/L 3.5-5.2 chloride, serum 103 mmol/L 98-107 carbon dioxide, venous blood 26.7 mmol/L 21.0-32.0 blood glucose 105 mg/dL 65-110 urea nitrogen, blood 10 mg/dL 7-18 creatinine, serum 0.90 mg/dL 0.60-1.30 alanine aminotransferase (SGPT), serum 21 U/L 12-78 aspartate aminotransferase (SGOT), serum 18 U/L 15-37 calcium, serum 8.6 mg/dL 8.5-10.1 bilirubin, serum, total 0.40 mg/dL 0.00-1.00 creatine kinase, serum 78 U/L 26-192 cholesterol, serum 143 mg/dL 247-666 8760/03/13 triglyceride, serum, fasting 60 mg/dL 30-200 HDL cholesterol, serum 72 mg/dL 32-96 LDL cholesterol, serum 59 mg/dL 0-130 TSH 1.33 m[iU]/mL 0.36-3.74 thyroxine, serum, free 1.18 ng/dL 0.76-1.46 Lab Report: MAGNESIUM/622, VITAMIN D, 25-HYDROXY/20453 - Chemistry vitamin D 25-hydroxy, serum 46 ng/mL 30-100 Encounters Code Encounter Date Provider Facility CPT-43903 Level 3 Est. Patient 12:16:16 CDT Ana Cristina Vallejo MD PhD [facility] CPT-20211 Level 4 Est. Patient 12:49:21 CDT Ana Cristina Vallejo MD PhD [facility] CPT-47581 Level 4 Est. Patient 23:02:25 CDT Ana Cristina Vallejo MD PhD [facility] CPT-65511 Level 4 Est. 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 Patient 11:28:14 CDT Ana Cristina Vallejo MD PhD [facility] CPT-99935 Level 4 Est. Patient 15:35:46 WELDER HELPER Ana Cristina Vallejo MD PhD [facility] CPT-09461 Level 3 Est. Patient 21:06:39 WELDER HELPER Alden Kim MD [facility] CPT-10518 Level 4 Est. Patient 15:30:54 WELDER HELPER Ana Cristina Vallejo MD PhD [facility] Procedures Code Procedure Name Date Entry Date Standard Description CPT-53234 Prevnar 13 15:40:03 CDT CPT-01591 Administration single or combination vaccine inc oral 15 :40:03 CDT CPT-48960 Prevnar 13 13:55:07 CDT CPT-G0008 Administration of Influenza Virus Vaccine 10:49:51 CDT CPT-11354 Fluzone High-Dose Intramuscular Suspension 10:49:51 CDT CPT-72162 Knee 3V 13:31:37 CDT CPT-33845 Bone Density 09:07:05 WELDER HELPER CPT-72040 Nail Avulsion 09:46:05 CDT CPT-44611 Administration single or combination vaccine inc oral 16 :11:54 CDT CPT-92923 Influenza High Dose age 65+ 16:11:54 CDT CPT-04816 Administration single or combination vaccine inc oral 10 :53:15 CDT CPT-56637 Influenza High Dose age 65+ 10:53:15 CDT CPT-57987 Bone Density 14:50:58 WELDER HELPER CPT-25327 Administration single or combination vaccine inc oral 15 :41:20 WELDER HELPER CPT-08231 Zoster Vaccine (Zostavax) 15:41:20 WELDER HELPER CPT-47924 Spec Collection and Handling Fee 11:18:25 WELDER HELPER CPT-59615 Administration single or combination vaccine inc oral 11 :14:20 CDT CPT-31006 Influenza High Dose age 65+ 11:14:20 CDT
--- OUTSIDE RECORDS SUMMARY | 2017-07-18 07:59 | XMS REPORT | Clinical Summary ---
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99 Active Lee Ann Radha Other symptoms involving urinary system UTI 599.0 Active Ana Cristina Vallejo MD PhD Urinary tract infection, site not specified Mental status change 780.97 Active Mariaa Whitman APRN Altered mental status Medication management V68.89 Active Mariaa Whitman APRN Encounters for other specified administrative purpose ROUTINE GYNECOLOGICAL EXAMINATION ICD-V72.31 Inactive Ana Cristina Vallejo MD PhD INGROWN TOENAIL, INFECTED ICD-703.0 Inactive Ana Cristina Vallejo MD PhD HEALTH SCREENING ICD-V70.0 Inactive Ana Cristina Vallejo MD PhD INGROWN TOENAIL ICD-703.0 Inactive Ana Cristina Vallejo MD PhD Medication List Medication Instructions Start Date Stop Date Generic Name NDC Status Provider Patient Instruction ALPRAZOLAM 0.25 MG TAB 1/2-1 tablet by mouth twice a day as needed for stress ALPRAZOLAM 32400303686 Active Mariaa Whitman APRN Active COLACE 100 MG CAP 1 po BID PRN Constipation DOCUSATE SODIUM 37110473729 Active Mariaa Antonette LUGO Active MIRALAX ORAL PACK Takes daily prn POLYETHYLENE GLYCOL 3350 69978544992 Active Mariaa Whitman APRN Active ALENDRONATE SODIUM 70 MG TABS 1 pill by mouth weekly for osteoporosis ALENDRONATE SODIUM 04103778935 Active Brianda KNOTT Active E-1000 1000 UNIT ORAL CAPS Take one by mouth daily VITAMIN E 84547735731 Active Brianda KNOTT Active OSCAL 500/200 D-3 500-200 MG-UNIT ORAL TABS Take one by mouth 3 times daily, morning, afternoon and evening.] CALCIUM CARBONATE-VITAMIN D 28375087600 Active Brianda RICK Active ASPIRIN 81 MG CHEW TAB 1 tablet by mouth daily ASPIRIN 04532413118 Active Brianda RICK Active ADULT ASPIRIN EC LOW STRENGTH 81 MG TBEC TAKE 1 TAB DAILY ASPIRIN 87156671457 No Longer Active Mariaa Whitman APRN Active ALENDRONATE SODIUM 70 MG TABS TAKE 1 TAB ONCE A WEEK ALENDRONATE SODIUM 22602859671 No Longer Active Mariaa Whitman APRN Active FLONASE ALLERGY RELIEF 50 MCG/ACT NASAL SUSP One spray each nostril daily for allergies FLUTICASONE PROPIONATE 83830500483 Active Mariaa Whitman APRN Active CETIRIZINE HCL 10 MG ORAL TABS 1 po qd PRN Allergies CETIRIZINE HCL 60074544279 Active Mariaa Whitman APRN Active BACTRIM DS 800-160 MG TABS 1 pill by mouth twice daily, for UTI SULFAMETHOXAZOLE-TRIMETHOPRIM 65239102321 No Longer Active Ana Cristina Vallejo MD PhD Active HYDROCHLOROTHIAZIDE 12.5 MG CAPS 1 pill by mouth daily, for blood pressure HYDROCHLOROTHIAZIDE 10459031875 Active Mariaa Whitman APRN Active CARVEDILOL 25 MG TABS 1 pill by mouth twice daily for blood pressure CARVEDILOL 58221809789 Active Mariaa Whitman APRN Active SYNTHROID 0.088 MG TAB 1 tablet by mouth daily for thyroid LEVOTHYROXINE SODIUM 48211152281 Active HEDY Esquivel Active AMOXICILLIN 500 MG CAP 1 tab by mouth 3 times daily AMOXICILLIN 96777429822 No Longer Active Alden Kim MD Active CVS VITAMIN D3 1000 UNIT CAPS TAKE 2 CAP DAILY CHOLECALCIFEROL Active Ana Cristina Vallejo MD PhD Active CALCIUM 500 MG TABS TAKE 3 TABS DAILY CALCIUM 07137442726 No Longer Active Mariaa Whitman APRN Active MULTIVITAMINS TABS TAKE 1 TAB DAILY MULTIPLE VITAMIN Active Aneta Samatnha Leo ASSOCIATE TECHNICIAN Active BENADRYL ALLERGY 25 MG TABS NEEDED DIPHENHYDRAMINE HCL 44132784775 Active Aneta D Leo ASSOCIATE TECHNICIAN Active TYLENOL 325 MG TABS NEEDED ACETAMINOPHEN 45577113804 Active Aneta Singh Leo ASSOCIATE TECHNICIAN Active ADVIL 200 MG TABS TAKE NEEDED IBUPROFEN 16183547653 Active Aneta D Leo ASSOCIATE TECHNICIAN Active GLUCOSAMINE-CHONDROITIN 500-400 MG TABS TAKE 1 TAB DAILY GLUCOSAMINE-CHONDROITIN 29940154109 Active Mariaa Whitman APRN Active NORVASC 10 MG TABS TAKE 1 TAB DAILY AMLODIPINE BESYLATE 98541437781 Active Mariaa Whitman APRN Active BENAZEPRIL HCL 40 MG TABS 1 PO BID BENAZEPRIL HCL 66432995625 Active HEDY Esquivel Active LOVASTATIN 20 MG TABS 1 PO Q HS FOR CHOLESTEROL LOVASTATIN 52310238030 Active HEDY Esquivel Active RANITIDINE HCL 150 MG CAPS 1 PO Q 12 HRS RANITIDINE HCL 70146656459 Active Mariaa Whitman APRN Active ALENDRONATE SODIUM 70 MG TABS TAKE 1 TAB ONCE A WEEK ALENDRONATE SODIUM 70 MG TABS 086203 ALENDRONATE SODIUM Inactive ADULT ASPIRIN EC LOW STRENGTH 81 MG TBEC TAKE 1 TAB DAILY ADULT ASPIRIN EC LOW STRENGTH 81 MG TBEC 701947 ASPIRIN Inactive AMOXICILLIN 500 MG CAP 1 tab by mouth 3 times daily AMOXICILLIN 500 MG CAP 589896 AMOXICILLIN Inactive BACTRIM DS 800-160 MG TABS 1 pill by mouth twice daily, for UTI BACTRIM DS 800-160 MG TABS 090008 SULFAMETHOXAZOLE-TRIMETHOPRIM Inactive Advance Directives Directive Description Start [...] Range Description blood pressure, diastolic - 8462-4 57 mm[Hg] [...] E&M - 3141-9 167 [lb_av] Weight Measured blood pressure, diastolic - 8462-4 67 mm[Hg] BP womack blood pressure, systolic - 8480-6 146 mm[Hg] BP sys pulse rate E&M - 8867-4 63 /min Heart rate temperature E&M 96 [degF] Body temperature weight E&M - 3141-9 167.5 [lb_av] Weight Measured Diagnostic Results Date Name Value Unit Range Description Lab Report: Basic Metabolic Panel - Chemistry sodium, serum 130 mmol/L 216-970 7761/10/19 potassium, serum 3.5 mmol/L 3.5-5.2 chloride, serum 92 mmol/L 98-107 carbon dioxide, venous blood 33.6 mmol/L 21.0-32.0 blood glucose 118 mg/dL 65-110 calcium, serum 8.8 mg/dL 8.5-10.1 urea nitrogen, blood 11 mg/dL 7-18 creatinine, serum 1.12 mg/dL 0.55-1.30 Lab Report: MICROALB/CREAT W/RATIO - Chemistry albumin/creatinine ratio, urine < 30 mg/g mg/g{creat} 0-29 Lab Report: MICROALB/CREAT W/RATIO - Lab microalbumin, urine 10 0-19 Lab Report: Thyroid Stimulating Hormone (L), Free Thyroxine (L), Lipid P ... - Chemistry TSH 1.84 m[iU]/mL 0.36-3.74 thyroxine, serum, free 1.41 ng/dL 0.76-1.46 cholesterol, serum 166 mg/dL 595-334 5305/04/20 triglyceride, serum, fasting 68 mg/dL 30-200 HDL cholesterol, serum 88 mg/dL 32-96 LDL cholesterol, serum 64 mg/dL 0-130 sodium, serum 132 mmol/L 360-406 7521/04/20 carbon dioxide, venous blood 31.3 mmol/L 21.0-32.0 potassium, serum 3.8 mmol/L 3.5-5.2 chloride, serum 96 mmol/L 98-107 blood glucose 108 mg/dL 65-110 urea nitrogen, blood 8 mg/dL 7-18 creatinine, serum 0.97 mg/dL 0.55-1.30 alanine aminotransferase (SGPT), serum 21 U/L 12-78 aspartate aminotransferase (SGOT), serum 19 U/L 15-37 calcium, serum 8.9 mg/dL 8.5-10.1 bilirubin, serum, total 0.40 mg/dL 0.00-1.00 Lab Report: Thyroid Stimulating Hormone (L), Free Thyroxine (L), Lipid P ... - Hematology leukocyte count, blood 5.4 10^3/MM^3 10*3/mm3 4.6-10.2 erythrocyte (RBC) count 3.87 10^6/MM^3 10*6/mm3 4.04-5.48 hemoglobin, blood 11.9 g/dL 12.0-16.0 hematocrit, blood 35.8 % 36.0-46.0 mean corpuscular volume, RBC 93 fL 80-97 mean corpuscular hemoglobin, RBC 30.8 pg 27.0-31.2 mean corpuscular hemoglobin concentration, RBC 33.3 G/DL % 31.8- 35.4 red blood cell distribution width 13.8 % 11.6-14.8 platelet count 312 10^3/MM^3 10*3/mm3 142-424 Lab Report: UADIP W/MICRO, AUTO - Chemistry protein, total urine random Negative mg/dL Negative RBC, urine, dipstick 1+ Negative Lab Report: UADIP W/MICRO, AUTO - Urinalysis urobilinogen, urine, semiquantitative (dipstick) 0.2 Normal leukocyte esterase, urine, by dipstick 3+ Negative nitrite, urine, semiquantitative Negative Negative glucose, urine, semiquantitative Negative Negative ketones, urine, by test strip Negative Negative bilirubin, urine Negative Negative urine color Yellow Colorless;Lightyellow;Straw;Yellow appearance, urine Cloudy Clear specific gravity, urine 1.010 1.000-1.030 pH, urine, semiquantitative 7.5 5.0-8.5 Encounters Code Encounter Date Provider Facility CPT-61446 Level 4 Est. Patient 15:07:54 CDT Mariaa Whitman [facility] CPT-20686 Level 3 Est. Patient 20:45:54 DEAN OF WOMEN Mariaa Whitman [facility] CPT-04488 Level 3 Est. Patient 12:16:16 CDT Ana Cristina Vallejo MD [facility]-65841 Level 4 Est. Patient 12:49:21 CDT Ana Cristina Vallejo MD [facility]-45380 Level 4 Est. Patient 23:02:25 CDT Ana Cristina Vallejo MD [facility]-01219 Level 4 Est. Patient 19:26:33 [employer] WOM[employer] Ana Cristina Vallejo MD [facility]-07948 Level 4 Est. Patient 11:28:14 CDT Ana Cristina Vallejo MD [facility]-71682 Level 4 Est. Patient 15:35:46 [employer] WOMEN Ana Cristina Vallejo MD [facility] CPT-76182 Level 3 Est. Patient 21:06:39 DE[employer] OF WOMEN Alden Kim MD [facility] CPT-90989 Level 4 Est. Patient 15:30:54 DE[employer] WOMEN Ana Cristina Vallejo MD [facility] Procedures Code Procedure Name Date Entry Date Standard Description CPT-G0438 Initial Annual Wellness Exam 14:54:07 CDT CPT-G0009 Administration of Pneumococcal Vaccine 14:44:24 CDT CPT-63975 Pneumovax 23 Injection Injectable 25 MCG/0.5ML 14:44:24 CDT CPT-74022 First Vx - Ix admin for Medicare patients 14:44:24 CDT CPT-63138 Fluzone High-Dose Intramuscular Suspension 14:44:20 CDT CPT-89627 BMP - LAB USE ONLY 12:38:06 CDT CPT-17364 Urine Culture - LAB USE ONLY 16:56:33 CDT CPT-TCMM Transitional Care Mgmt-Moderate 18:08:16 CDT CPT-51067 Bone Density 09:14:12 CDT CPT-000 Give Appropriate Flu Vaccine 14:51:52 CDT CPT-00873 Fluzone High Dose (>=65 yrs.) 15:19:23 CDT CPT-04854 Immunization Single Admin 15:19:23 CDT CPT-25995 Prevnar 13 15:40:03 CDT CPT-10008 Administration single or combination vaccine inc oral 15 :40:03 CDT CPT-52788 Prevnar 13 13:55:07 CDT CPT-G0008 Administration of Influenza Virus Vaccine 10:49:51 CDT CPT-71326 Fluzone High-Dose Intramuscular Suspension 10:49:51 CDT CPT-94861 Knee 3V 13:31:37 CDT CPT-49146 Bone Density 09:07:05 [employer] WOM[employer] CPT-03576 Nail Avulsion 09:46:05 CDT CPT-96207 Administration single or combination vaccine inc oral 16 :11:54 CDT CPT-49508 Influenza High Dose age 65+ 16:11:54 CDT CPT-10134 Administration single or combination vaccine inc oral 10 :53:15 CDT CPT-54878 Influenza High Dose age 65+ 10:53:15 CDT CPT-91252 Bone Density 14:50:58 [employer] CPT-56844 Administration single or combination vaccine inc oral 15 :41:20 [employer]OM[employer] CPT-08518 Zoster Vaccine (Zostavax) 15:41:20 [employer]OM[employer] CPT-64978 Spec Collection and Handling Fee 11:18:25 [employer] WOM[employer] CPT-42455 Administration single or combination vaccine inc oral 11 :14:20 CDT CPT-85875 Influenza High Dose age 65+ 11:14:20 CDT
--- OUTSIDE RECORDS SUMMARY | 2017-07-18 08:00 | XMS REPORT | Clinical Summary ---
Author Author Admin, QIE Organization [facility] Address Unknown Phone Unavailable Allergies, Adverse Reactions, Alerts Allergy Name Reaction Description Start Date Severity Status Provider No Known Allergies Jackelin Barth RPT,RMA NKDA Critical Active Mariaa Whitman MODERN GREEK STUDIES PROFESSOR Conditions or Problems Problem Name Problem Code [...] Active Ana Cristina Vallejo MD PhD Sciatica Urinary bladder pain 788.99 Active Lee Ann Garcia Other symptoms involving urinary system UTI 599.0 [...] Generic Name NDC Status Provider Patient Instruction MIRALAX ORAL PACK Takes daily prn POLYETHYLENE GLYCOL 3350 75849926247 Active Mariaa Whitman APRN Active ALENDRONATE SODIUM 70 MG TABS 1 pill by mouth weekly for osteoporosis ALENDRONATE SODIUM 19265578462 Active Brianda KNOTT Active E-1000 1000 UNIT ORAL CAPS Take one by mouth daily VITAMIN E 83216955921 Active Brianda KNOTT Active OSCAL 500/200 D-3 500-200 MG-UNIT ORAL TABS Take one by mouth 3 times daily, morning, afternoon and evening.] CALCIUM CARBONATE-VITAMIN D 58579693677 Active Brianda KNOTT Active ASPIRIN 81 MG CHEW TAB 1 tablet by mouth daily ASPIRIN 06826218687 Active Brianda RICK Active ADULT ASPIRIN EC LOW STRENGTH 81 MG TBEC TAKE 1 TAB DAILY ASPIRIN 87821083121 No Longer Active Mariaa Whitman APRN Active ALENDRONATE SODIUM 70 MG TABS TAKE 1 TAB ONCE A WEEK ALENDRONATE SODIUM 73497578220 No Longer Active Mariaa Whitman APRN Active FLONASE ALLERGY RELIEF 50 MCG/ACT NASAL SUSP One spray each nostril daily for allergies FLUTICASONE PROPIONATE 77155243147 Active Mariaa Whitman APRN Active CETIRIZINE HCL 10 MG ORAL TABS 1 po qd PRN Allergies CETIRIZINE HCL 11993669026 Active Mariaa Whitman APRN Active BACTRIM DS 800-160 MG TABS 1 pill by mouth twice daily, for UTI SULFAMETHOXAZOLE-TRIMETHOPRIM 46882661034 No Longer Active Ana Cristina Vallejo MD PhD Active HYDROCHLOROTHIAZIDE 12.5 MG CAPS 1 pill by mouth daily, for blood pressure HYDROCHLOROTHIAZIDE 01591291417 Active Mariaa Whitman APRN Active CARVEDILOL 25 MG TABS 1 pill by mouth twice daily for blood pressure CARVEDILOL 27450980043 Active Mariaa Whitman APRN Active SYNTHROID 0.088 MG TAB 1 tablet by mouth daily for thyroid LEVOTHYROXINE SODIUM 90824982494 Active Mariaa Whitman [employer] STUDIES PROFESSOR Active AMOXICILLIN 500 MG CAP 1 tab by mouth 3 times daily AMOXICILLIN 12661401981 No Longer Active Alden Kim MD Active [facility] VITAMIN D3 1000 UNIT CAPS TAKE 2 CAP DAILY CHOLECALCIFEROL Active Ana Cristina Vallejo MD PhD Active CALCIUM 500 MG TABS TAKE 3 TABS DAILY CALCIUM 11992225910 No Longer Active Mariaa Demetrioum [employer]REEK STUDIES PROFESSOR Active MULTIVITAMINS TABS TAKE 1 TAB DAILY MULTIPLE VITAMIN Active Aneta D Leo DUST HANDLER Active BENADRYL ALLERGY 25 MG TABS NEEDED DIPHENHYDRAMINE HCL 97916975169 Active Aneta D Leo DUST HANDLER Active TYLENOL 325 MG TABS NEEDED ACETAMINOPHEN 74757968664 Active Aneta D Leo DUST HANDLER Active ADVIL 200 MG TABS TAKE NEEDED IBUPROFEN 00827761525 Active Aneta D Leo DUST HANDLER Active GLUCOSAMINE-CHONDROITIN 500-400 MG TABS TAKE 1 TAB DAILY GLUCOSAMINE-CHONDROITIN 90422881319 Active Mariaa Yokum [employer] STUDIES PROFESSOR Active NORVASC 10 MG TABS TAKE 1 TAB DAILY AMLODIPINE BESYLATE 37892176159 Active Mariaa Yokum [employer]UDIES PROFESSOR Active BENAZEPRIL HCL 40 MG TABS 1 PO BID BENAZEPRIL HCL 29774136495 Active Mariaadomenico Atkinsonum [employer] GREEK STUDIES PROFESSOR Active LOVASTATIN 20 MG TABS 1 PO Q HS FOR CHOLESTEROL LOVASTATIN 56033924606 Active Mariaadomenico Atkinsonum [employer]REEK STUDIES PROFESSOR Active RANITIDINE HCL 150 MG CAPS 1 PO Q 12 HRS RANITIDINE HCL 72020012126 Active Mariaa Demetrioum [employer]REEK STUDIES PROFESSOR Active ALENDRONATE SODIUM 70 MG TABS TAKE 1 TAB ONCE A WEEK ALENDRONATE SODIUM 70 MG TABS 013290 ALENDRONATE SODIUM Inactive ADULT ASPIRIN EC LOW STRENGTH 81 MG TBEC TAKE 1 TAB DAILY ADULT ASPIRIN EC LOW STRENGTH 81 MG TBEC 254864 ASPIRIN Inactive AMOXICILLIN 500 MG CAP 1 tab by mouth 3 times daily AMOXICILLIN 500 MG CAP 251619 AMOXICILLIN Inactive BACTRIM DS 800-160 MG TABS 1 pill by mouth twice daily, for UTI BACTRIM DS 800-160 MG TABS 304501 SULFAMETHOXAZOLE-TRIMETHOPRIM Inactive Advance Directives Directive Description Start [...] Range Description blood pressure, diastolic - 8462-4 49 mm[Hg] [...] E&M - 3141-9 167.5 [lb_av] Weight Measured blood pressure, diastolic - 8462-4 66 mm[Hg] BP womack blood pressure, systolic - 8480-6 141 mm[Hg] BP sys pulse rate E&M - 8867-4 63 /min Heart rate temperature E&M 97.1 [degF] Body temperature weight E&M - 3141-9 164.5 [lb_av] Weight Measured Diagnostic Results Date Name Value Unit Range Description Lab Report: MICROALB/CREAT W/RATIO - Chemistry albumin/creatinine ratio, urine < 30 mg/g mg/g{creat} 0-29 Lab Report: MICROALB/CREAT W/RATIO - Lab microalbumin, urine 10 0-19 Lab Report: Thyroid Stimulating Hormone (L), Free Thyroxine (L), Lipid P ... - Chemistry TSH 1.84 m[iU]/mL 0.36-3.74 thyroxine, serum, free 1.41 ng/dL 0.76-1.46 cholesterol, serum 166 mg/dL 143-414 9472/04/20 triglyceride, serum, fasting 68 mg/dL 30-200 HDL cholesterol, serum 88 mg/dL 32-96 LDL cholesterol, serum 64 mg/dL 0-130 sodium, serum 132 mmol/L 985-669 5102/04/20 carbon dioxide, venous blood 31.3 mmol/L 21.0-32.0 [...] Negative Encounters Code Encounter Date Provider Facility CPT-54685 Level 4 Est. Patient 15:07:54 CDT Mariaa Whitman [facility] CPT-38444 Level 3 Est. Patient 20:45:54 ENVIRONMENTAL SERVICES COORDINATOR Mariaa Whitman [facility] CPT-95552 Level 3 Est. Patient 12:16:16 CDT Ana Cristina Vallejo MD PhD [facility] CPT-81476 Level 4 Est. Patient 12:49:21 CDT Ana Cristina Valleoj MD PhD [facility] CPT-74041 Level 4 Est. Patient 23:02:25 CDT Ana Cristina Vallejo MD PhD [facility] CPT-21437 Level 4 Est. Patient 19:26:33 ENVIRONMENTAL SERVICES COORDINATOR Ana Cristina Vallejo MD PhD [facility] CPT-62219 Level 4 Est. Patient 11:28:14 CDT Ana Cristina Vallejo MD PhD [facility] CPT-45678 Level 4 Est. Patient 15:35:46 ENVIRONMENTAL SERVICES COORDINATOR Ana Cristina Vallejo MD PhD [facility] CPT-16376 Level 3 Est. Patient 21:06:39 ENVIRONMENTAL SERVICES COORDINATOR Alden Kim MD [facility] CPT-73987 Level 4 Est. Patient 15:30:54 ENVIRONMENTAL SERVICES COORDINATOR Ana Cristina Vallejo MD PhD [facility] Procedures Code Procedure Name Date Entry Date Standard Description CPT-87561 BMP - LAB USE ONLY 12:38:06 CDT CPT-80579 Urine Culture - LAB USE ONLY 16:56:33 CDT CPT-TCMM Transitional Care Mgmt-Moderate 18:08:16 CDT CPT-72934 Bone Density 09:14:12 CDT CPT-000 Give Appropriate Flu Vaccine 14:51:52 CDT CPT-24794 Fluzone High Dose (>=65 yrs.) 15:19:23 CDT CPT-34682 Immunization Single Admin 15:19:23 CDT CPT-82156 Prevnar 13 15:40:03 CDT CPT-04610 Administration single or combination vaccine inc oral 15 :40:03 CDT CPT-73976 Prevnar 13 13:55:07 CDT CPT-G0008 Administration of Influenza Virus Vaccine 10:49:51 CDT CPT-05262 Fluzone High-Dose Intramuscular Suspension 10:49:51 CDT CPT-64273 Knee 3V 13:31:37 CDT CPT-46928 Bone Density 09:07:05 ENVIRONMENTAL SERVICES COORDINATOR CPT-61252 Nail Avulsion 09:46:05 CDT CPT-51923 Administration single or combination vaccine inc oral 16 :11:54 CDT CPT-11064 Influenza High Dose age 65+ 16:11:54 CDT CPT-37502 Administration single or combination vaccine inc oral 10 :53:15 CDT CPT-00696 Influenza High Dose age 65+ 10:53:15 CDT CPT-04946 Bone Density 14:50:58 ENVIRONMENTAL SERVICES COORDINATOR CPT-78445 Administration single or combination vaccine inc oral 15 :41:20 ENVIRONMENTAL SERVICES COORDINATOR CPT-12273 Zoster Vaccine (Zostavax) 15:41:20 ENVIRONMENTAL SERVICES COORDINATOR CPT-53889 Spec Collection and Handling Fee 11:18:25 ENVIRONMENTAL SERVICES COORDINATOR CPT-94742 Administration single or combination vaccine inc oral 11 :14:20 CDT CPT-61117 Influenza High Dose age 65+ 11:14:20 CDT
--- OUTSIDE RECORDS SUMMARY | 2017-07-18 08:00 | XMS REPORT | Clinical Summary ---
Author Author Admin, DANDRE Organization [facility] [address] Address Unknown Phone Unavailable Allergies, Adverse Reactions, Alerts Allergy Name Reaction Description Start Date Severity Status Provider NKDA Critical Active Mariaa Whitman JIGSAW OPERATOR Conditions or Problems Problem Name Problem Code Onset Date Status Entry Date Provider Comment Standard Description Annotate ROUTINE GYNECOLOGICAL EXAMINATION V72.31 Resolved Ana Cristina Vallejo MD PhD Routine gynecological examination MENOPAUSE 627.2 Ruled out Ana Cristina Vallejo MD PhD Symptomatic menopausal or female climacteric states MENOPAUSE 627.2 Active Brianda Reis [facility] Symptomatic menopausal or female climacteric states [...] Hayes MD Heart disease, unspecified Dysuria 788.1 Active Idalia Ace LPN Dysuria ROUTINE GYNECOLOGICAL EXAMINATION ICD-V72.31 Inactive Ana Cristina [...] Generic Name NDC Status Provider Patient Instruction VITAMIN D3 2000 UNIT TABS 1 daily, for vitamin D deficiency CHOLECALCIFEROL 89162423322 Active HEDY Esquivel Active EQL ONE DAILY WOMENS ORAL TABLET 1 po daily MULTIPLE VITAMINS- CALCIUM 45434071027 Active HEDY Esquivel Active CIPRO 250 MG ORAL TABS 1 tab BID for 7 days CIPROFLOXACIN HCL 65277715331 Active Deepti Junior LPN Active MACROBID 100 MG ORAL CAPS 1 tab BID for 5 days NITROFURANTOIN MONOHYD MACRO 17024119241 No Longer Active Deepti Junior YARD JOCKEY Active HYDROCHLOROTHIAZIDE 12.5 MG CAPS 1 pill by mouth daily HYDROCHLOROTHIAZIDE 04333596487 Active Jalil Hayes MD Active RANITIDINE HCL 150 MG CAPS once nightly RANITIDINE HCL 49335794972 Active Jalil Hayes MD Active BENAZEPRIL HCL 40 MG TABS 1 daily for blood pressure BENAZEPRIL HCL 29165861249 Active Jalil Hayes MD Active HYDROCHLOROTHIAZIDE 12.5 MG CAPS 1 pill by mouth daily, for blood pressure HYDROCHLOROTHIAZIDE 69960206280 No Longer Active Jalil Hayes MD Active AUGMENTIN 875-125 MG TAB 1 po BID x 7 days AMOXICILLIN-POT CLAVULANATE 59998647505 No Longer Active Jalil Hayes MD Active OMEPRAZOLE 40 MG CPDR 1 po q a.m. OMEPRAZOLE 98896985930 Active Peggy Pardo LPN Active MIRALAX ORAL PACK Takes daily prn POLYETHYLENE GLYCOL 3350 17853316080 No Longer Active Peggy Pardo LPN Active FLONASE ALLERGY RELIEF 50 MCG/ACT NASAL SUSP One spray each nostril daily for allergies FLUTICASONE PROPIONATE 38353058212 No Longer Active Peggy Pardo LPN Active BENADRYL ALLERGY 25 MG TABS NEEDED DIPHENHYDRAMINE HCL 93899686401 No Longer Active Peggy Pardo LPN Active ADVIL 200 MG TABS TAKE NEEDED IBUPROFEN 99075107678 No Longer Active Peggy Pardo LPN Active COLACE 100 MG CAP 1 po BID PRN Constipation DOCUSATE SODIUM 85789968596 No Longer Active Deepti Junior LPN Active ALPRAZOLAM 0.25 MG TAB 1/2-1 tablet by mouth twice a day as needed for stress ALPRAZOLAM 64170823004 No Longer Active Deepti Junior LPN Active ALENDRONATE SODIUM 70 MG TABS 1 pill by mouth weekly for osteoporosis ALENDRONATE SODIUM 85824808544 Active Mariaa Whitman JIGSAW OPERATOR Active E-1000 1000 UNIT ORAL CAPS Take one by mouth daily VITAMIN E 77503837692 Active HEDY Esquivel Active OSCAL 500/200 D-3 500-200 MG-UNIT ORAL TABS Take one by mouth 3 times daily, morning, afternoon and evening.] CALCIUM CARBONATE-VITAMIN D 39785353644 Active HEDY Esquivel Active ASPIRIN 81 MG CHEW TAB 1 tablet by mouth daily ASPIRIN 91364364324 Active HEDY Esquivel Active ADULT ASPIRIN EC LOW STRENGTH 81 MG TBEC TAKE 1 TAB DAILY ASPIRIN 93321039212 No Longer Active Mariaa Whitman APRN Active ALENDRONATE SODIUM 70 MG TABS TAKE 1 TAB ONCE A WEEK ALENDRONATE SODIUM 39778232100 No Longer Active Mariaa Whitman APRN Active CETIRIZINE HCL 10 MG ORAL TABS 1 po qd PRN Allergies CETIRIZINE HCL 82724541300 Active HEDY Esquivel Active BACTRIM DS 800-160 MG TABS 1 pill by mouth twice daily, for UTI SULFAMETHOXAZOLE-TRIMETHOPRIM 18335815196 No Longer Active Ana Cristina Vallejo MD PhD Active CARVEDILOL 25 MG TABS 1 pill by mouth twice daily for blood pressure CARVEDILOL 95331428502 Active HEDY Esquivel Active SYNTHROID 0.088 MG TAB 1 tablet by mouth daily for thyroid LEVOTHYROXINE SODIUM 88631995438 Active HEDY Esquivel Active AMOXICILLIN 500 MG CAP 1 tab by mouth 3 times daily AMOXICILLIN 64436767652 No Longer Active Alden Kim MD Active CALCIUM 500 MG TABS TAKE 3 TABS DAILY CALCIUM 07417142293 No Longer Active Mariaa Whitman APRN Active MULTIVITAMINS TABS TAKE 1 TAB DAILY MULTIPLE VITAMIN No Longer Active Aneta Bailey LPN Active TYLENOL 325 MG TABS NEEDED ACETAMINOPHEN 85797628032 Active Aneta Tavarezum YARD JOCKEY Active GLUCOSAMINE-CHONDROITIN 500-400 MG TABS TAKE 1 TAB DAILY GLUCOSAMINE-CHONDROITIN 59957737923 Active Mariaa Yokum JIGSAW OPERATOR Active NORVASC 10 MG TABS TAKE 1 TAB DAILY AMLODIPINE BESYLATE 74540230128 Active HEDY Esquivel Active LOVASTATIN 20 MG TABS 1 PO Q HS FOR CHOLESTEROL LOVASTATIN 67416667934 Active Risa HEDY Calderon Active ALENDRONATE SODIUM 70 MG TABS TAKE 1 TAB ONCE A WEEK ALENDRONATE SODIUM 70 MG TABS 795926 ALENDRONATE SODIUM Inactive ADULT ASPIRIN EC LOW STRENGTH 81 MG TBEC TAKE 1 TAB DAILY ADULT ASPIRIN EC LOW STRENGTH 81 MG TBEC 730714 ASPIRIN Inactive ALPRAZOLAM 0.25 MG TAB 1/2-1 tablet by mouth twice a day as needed for stress ALPRAZOLAM 0.25 MG TAB 380135 ALPRAZOLAM Inactive COLACE 100 MG CAP 1 po BID PRN Constipation COLACE 100 MG CAP 8366184 DOCUSATE SODIUM Inactive ADVIL 200 MG TABS TAKE NEEDED ADVIL 200 MG TABS 421021 IBUPROFEN Inactive BENADRYL ALLERGY 25 MG TABS NEEDED BENADRYL ALLERGY 25 MG TABS 4340629 DIPHENHYDRAMINE HCL Inactive FLONASE ALLERGY RELIEF 50 MCG/ACT NASAL SUSP One spray each nostril daily for allergies FLONASE ALLERGY RELIEF 50 MCG/ACT NASAL SUSP 6652653 FLUTICASONE PROPIONATE Inactive MIRALAX ORAL PACK Takes daily prn MIRALAX ORAL PACK 464599 POLYETHYLENE GLYCOL 3350 Inactive AUGMENTIN 875-125 MG TAB 1 po BID x 7 days AUGMENTIN 875-125 MG TAB 049953 AMOXICILLIN-POT CLAVULANATE Inactive HYDROCHLOROTHIAZIDE 12.5 MG CAPS 1 pill by mouth daily, for blood pressure HYDROCHLOROTHIAZIDE 12.5 MG CAPS 020036 HYDROCHLOROTHIAZIDE Inactive AMOXICILLIN 500 MG CAP 1 tab by mouth 3 times daily AMOXICILLIN 500 MG CAP 654189 AMOXICILLIN Inactive BACTRIM DS 800-160 MG TABS 1 pill by mouth twice daily, for UTI BACTRIM DS 800-160 MG TABS 237539 SULFAMETHOXAZOLE-TRIMETHOPRIM Inactive MACROBID 100 MG ORAL CAPS 1 tab BID for 5 days MACROBID 100 MG ORAL CAPS 4958243 NITROFURANTOIN MONOHYD MACRO Inactive Advance Directives Directive [...] temperature weight E&M 166.5 [lb_av] Weight Measured Diagnostic Results Date Name Value Unit Range Description Lab Report: Basic Metabolic Panel - Chemistry calcium, serum 8.8 mg/dL 8.5-10.1 urea nitrogen, blood 11 mg/dL 7-18 creatinine, serum 1.12 mg/dL 0.55-1.30 sodium, serum 132 mmol/L 730-802 4338/10/19 blood glucose 118 mg/dL 65-110 carbon dioxide, venous blood 33.6 mmol/L 21.0-32.0 chloride, serum 92 mmol/L 98-107 potassium, serum 3.5 mmol/L 3.5-5.2 sodium, serum 130 mmol/L 394-422 4629/08/09 potassium, serum 4.2 mmol/L 3.5-5.2 chloride, serum 99 mmol/L 98-107 carbon dioxide, venous blood 24.7 mmol/L 21.0-32.0 blood glucose 119 mg/dL 65-110 calcium, serum 8.5 mg/dL 8.5-10.1 urea nitrogen, blood 14 mg/dL 7-18 creatinine, serum 1.16 mg/dL 0.60-1.30 Lab Report: CBC-QUEST, COMPREHENSIVE METABOLIC PANEL, LIPID PANEL, Micro ... - Chemistry cholesterol, serum 162 mg/dL 026-851 7790/05/01 HDL cholesterol, serum 68 mg/dL > OR=46 [...] % 11.0-15.0 platelet count 297 THOUSAND/UL 10*3/mm3 857-412 4092/05/01 mean platelet volume 8.9 fL 7.5-12.5 Lab [...] 5.0-8.5 Encounters Code Encounter Date Provider Facility [facility]-[id number] Level 3 Est. Patient 13:55:49 CDT Jalil Hayes MD [facility]-38375 Level 3 Est. Patient 14:38:15 CDT Jalil Hayes MD [facility]90270 Level 4 Est. Patient 14:40:54 CDT Bee Rosas [facility]-68306 Level 4 Est. Patient 10:31:15 CDT Jalil Hayes MD [facility]69196 Level 4 Est. Patient 15:07:54 CDT Mariaa Whitman [facility]94454 Level 3 Est. Patient 20:45:54 GUTTER MOUTH CUTTER Mariaa Whitman [facility]-67726 Level 3 Est. Patient 12:16:16 CDT Ana Cristina Vallejo MD [facility]06810 Level 4 Est. Patient 12:49:21 CDT Ana Cristina Vallejo MD [facility]72165 Level 4 Est. Patient 23:02:25 CDT Ana Cristina Vallejo MD [facility]52663 Level 4 Est. Patient 19:26:33 GUTTER MOUTH CUTTER Ana Cristina Vallejo MD [facility]59492 Level 4 Est. Patient 11:28:14 CDT Ana Cristina Vallejo MD [facility]23537 Level 4 Est. Patient 15:35:46 GUTTER MOUTH CUTTER Ana Cristina Vallejo MD PhD [facility] CPT-25260 Level 3 Est. Patient 21:06:39 GUTTER MOUTH CUTTER Alden Kim MD [facility] CPT-32619 Level 4 Est. Patient 15:30:54 GUTTER MOUTH CUTTER Ana Cristina Vallejo MD PhD [facility] Procedures Code Procedure Name Date Entry Date Standard Description CPT-TCMM Transitional Care Mgmt-Moderate 14:41:55 CDT CPT-74682 EKG Trac and Interp - XRAY USE ONLY 10:35:11 CDT 09/11 CPT-77537 Chest 2V Frontal and Lat - XRAY USE ONLY 10:35:11 CDT CPT-G0438 Initial Annual Wellness Exam 14:54:07 CDT CPT-G0009 Administration of Pneumococcal Vaccine 14:44:24 CDT CPT-73489 Pneumovax 23 Injection Injectable 25 MCG/0.5ML 14:44:24 CDT CPT-19820 First Vx - Ix admin for Medicare patients 14:44:24 CDT CPT-75829 Fluzone High-Dose Intramuscular Suspension 14:44:20 CDT CPT-82894 BMP - LAB USE ONLY 12:38:06 CDT CPT-38768 Urine Culture - LAB USE ONLY 16:56:33 CDT CPT-TCMM Transitional Care Mgmt-Moderate 18:08:16 CDT CPT-48185 Bone Density 09:14:12 CDT CPT-000 Give Appropriate Flu Vaccine 14:51:52 CDT CPT-88950 Fluzone High Dose (>=65 yrs.) 15:19:23 CDT CPT-91838 Immunization Single Admin 15:19:23 CDT CPT-34566 Prevnar 13 15:40:03 CDT CPT-31662 Administration single or combination vaccine inc oral 15 :40:03 CDT CPT-73189 Prevnar 13 13:55:07 CDT CPT-G0008 Administration of Influenza Virus Vaccine 10:49:51 CDT CPT-17621 Fluzone High-Dose Intramuscular Suspension 10:49:51 CDT CPT-01747 Knee 3V 13:31:37 CDT CPT-05288 Bone Density 09:07:05 GUTTER MOUTH CUTTER CPT-19916 Nail Avulsion 09:46:05 CDT CPT-85688 Administration single or combination vaccine inc oral 16 :11:54 CDT CPT-57457 Influenza High Dose age 65+ 16:11:54 CDT CPT-22421 Administration single or combination vaccine inc oral 10 :53:15 CDT CPT-21377 Influenza High Dose age 65+ 10:53:15 CDT CPT-48830 Bone Density 14:50:58 GUTTER MOUTH CUTTER CPT-82215 Administration single or combination vaccine inc oral 15 :41:20 GUTTER MOUTH CUTTER CPT-73371 Zoster Vaccine (Zostavax) 15:41:20 GUTTER MOUTH CUTTER CPT-77941 Spec Collection and Handling Fee 11:18:25 GUTTER MOUTH CUTTER CPT-37304 Administration single or combination vaccine inc oral 11 :14:20 CDT CPT-18053 Influenza High Dose age 65+ 11:14:20 CDT
--- OUTSIDE RECORDS SUMMARY | 2017-07-18 08:01 | XMS REPORT | Clinical Summary ---
Author Author Admin, DANDRE Organization [facility] Address Unknown Phone Unavailable Allergies, Adverse Reactions, Alerts Allergy Name Reaction Description Start Date Severity Status Provider NKDA Critical Active Mariaa Whitman ADVERTISING INSERTER Conditions or Problems Problem Name Problem Code Onset Date Status Entry Date Provider Comment Standard Description Annotate ROUTINE GYNECOLOGICAL EXAMINATION V72.31 Resolved Ana Cristina Vallejo MD PhD Routine gynecological examination MENOPAUSE 627.2 Ruled out Ana Cristina Vallejo MD PhD Symptomatic menopausal or female climacteric states MENOPAUSE 627.2 Active Brianda Reis [facility] Symptomatic menopausal or female climacteric states DIVERTICULOSIS, [...] Generic Name NDC Status Provider Patient Instruction CIPRO 250 MG ORAL TABS 1 tab BID for 7 days CIPROFLOXACIN HCL 68092265355 Active Deepti Junior LPN Active MACROBID 100 MG ORAL CAPS 1 tab BID for 5 days NITROFURANTOIN MONOHYD MACRO 56973253219 No Longer Active Deepti Junior LPN Active HYDROCHLOROTHIAZIDE 12.5 MG CAPS 1 pill by mouth daily HYDROCHLOROTHIAZIDE 97695967686 Active Jalil Hayes MD Active RANITIDINE HCL 150 MG CAPS once nightly RANITIDINE HCL 02404340493 Active Jalil Hayes MD Active BENAZEPRIL HCL 40 MG TABS 1 daily for blood pressure BENAZEPRIL HCL 86165051957 Active Jalil Hayes MD Active HYDROCHLOROTHIAZIDE 12.5 MG CAPS 1 pill by mouth daily, for blood pressure HYDROCHLOROTHIAZIDE 59717780355 No Longer Active Jalil Hayes MD Active AUGMENTIN 875-125 MG TAB 1 po BID x 7 days AMOXICILLIN-POT CLAVULANATE 48093619236 No Longer Active Jalil Hayes MD Active OMEPRAZOLE 40 MG CPDR 1 po q a.m. OMEPRAZOLE 91027662391 Active Peggy Pardo LPN Active MIRALAX ORAL PACK Takes daily prn POLYETHYLENE GLYCOL 3350 27768514618 No Longer Active Peggy Pardo LPN Active FLONASE ALLERGY RELIEF 50 MCG/ACT NASAL SUSP One spray each nostril daily for allergies FLUTICASONE PROPIONATE 21206904229 No Longer Active Peggy Pardo LPN Active BENADRYL ALLERGY 25 MG TABS NEEDED DIPHENHYDRAMINE HCL 22254617022 No Longer Active Peggy Pardo LPN Active ADVIL 200 MG TABS TAKE NEEDED IBUPROFEN 01922034223 No Longer Active Peggy Pardo LPN Active COLACE 100 MG CAP 1 po BID PRN Constipation DOCUSATE SODIUM 69379572356 No Longer Active Deepti Junior LPN Active ALPRAZOLAM 0.25 MG TAB 1/2-1 tablet by mouth twice a day as needed for stress ALPRAZOLAM 67583362680 No Longer Active Deepti Junior LPN Active ALENDRONATE SODIUM 70 MG TABS 1 pill by mouth weekly for osteoporosis ALENDRONATE SODIUM 91770577547 Active Mariaa Whitman APRN Active E-1000 1000 UNIT ORAL CAPS Take one by mouth daily VITAMIN E 03473972897 Active Brianda KNOTT Active OSCAL 500/200 D-3 500-200 MG-UNIT ORAL TABS Take one by mouth 3 times daily, morning, afternoon and evening.] CALCIUM CARBONATE-VITAMIN D 10510356693 Active Brianda KNOTT Active ASPIRIN 81 MG CHEW TAB 1 tablet by mouth daily ASPIRIN 82430312082 Active Brianda Reis HEDY Active ADULT ASPIRIN EC LOW STRENGTH 81 MG TBEC TAKE 1 TAB DAILY ASPIRIN 36125742148 No Longer Active Mariaa Whitman APRN Active ALENDRONATE SODIUM 70 MG TABS TAKE 1 TAB ONCE A WEEK ALENDRONATE SODIUM 29564838118 No Longer Active Mariaa Whitman APRN Active CETIRIZINE HCL 10 MG ORAL TABS 1 po qd PRN Allergies CETIRIZINE HCL 70780649491 Active HEDY Esquivel Active BACTRIM DS 800-160 MG TABS 1 pill by mouth twice daily, for UTI SULFAMETHOXAZOLE-TRIMETHOPRIM 65632366553 No Longer Active Ana Cristina Vallejo MD PhD Active CARVEDILOL 25 MG TABS 1 pill by mouth twice daily for blood pressure CARVEDILOL 02278547966 Active HEDY Esquivel Active SYNTHROID 0.088 MG TAB 1 tablet by mouth daily for thyroid LEVOTHYROXINE SODIUM 05654585320 Active HEDY Esquivel Active AMOXICILLIN 500 MG CAP 1 tab by mouth 3 times daily AMOXICILLIN 44626552949 No Longer Active Alden Kim MD Active [facility] VITAMIN D3 1000 UNIT CAPS TAKE 2 CAP DAILY CHOLECALCIFEROL Active Ana Cristina Vallejo MD PhD Active CALCIUM 500 MG TABS TAKE 3 TABS DAILY CALCIUM 83845359516 No Longer Active Mariaa Whitman APRN Active MULTIVITAMINS TABS TAKE 1 TAB DAILY MULTIPLE VITAMIN Active Aneta Tavarezum YULIET Active TYLENOL 325 MG TABS NEEDED ACETAMINOPHEN 88025668054 Active Aneta Tavarezum ASSISTANT HEALTH EDUCATOR Active GLUCOSAMINE-CHONDROITIN 500-400 MG TABS TAKE 1 TAB DAILY GLUCOSAMINE-CHONDROITIN 72950712640 Active Mariaa Whitman APRN Active NORVASC 10 MG TABS TAKE 1 TAB DAILY AMLODIPINE BESYLATE 23211447534 Active HEDY Esquivel Active LOVASTATIN 20 MG TABS 1 PO Q HS FOR CHOLESTEROL LOVASTATIN 17681414430 Active HEDY Esquivel Active ALENDRONATE SODIUM 70 MG TABS TAKE 1 TAB ONCE A WEEK ALENDRONATE SODIUM 70 MG TABS 409790 ALENDRONATE SODIUM Inactive ADULT ASPIRIN EC LOW STRENGTH 81 MG TBEC TAKE 1 TAB DAILY ADULT ASPIRIN EC LOW STRENGTH 81 MG TBEC 304130 ASPIRIN Inactive ALPRAZOLAM 0.25 MG TAB 1/2-1 tablet by mouth twice a day as needed for stress ALPRAZOLAM 0.25 MG TAB 197649 ALPRAZOLAM Inactive COLACE 100 MG CAP 1 po BID PRN Constipation COLACE 100 MG CAP 8070119 DOCUSATE SODIUM Inactive ADVIL 200 MG TABS TAKE NEEDED ADVIL 200 MG TABS 647908 IBUPROFEN Inactive BENADRYL ALLERGY 25 MG TABS NEEDED BENADRYL ALLERGY 25 MG TABS 3398953 DIPHENHYDRAMINE HCL Inactive FLONASE ALLERGY RELIEF 50 MCG/ACT NASAL SUSP One spray each nostril daily for allergies FLONASE ALLERGY RELIEF 50 MCG/ACT NASAL SUSP 7567809 FLUTICASONE PROPIONATE Inactive MIRALAX ORAL PACK Takes daily prn MIRALAX ORAL PACK 313398 POLYETHYLENE GLYCOL 3350 Inactive AUGMENTIN 875-125 MG TAB 1 po BID x 7 days AUGMENTIN 875-125 MG TAB 416321 AMOXICILLIN-POT CLAVULANATE Inactive HYDROCHLOROTHIAZIDE 12.5 MG CAPS 1 pill by mouth daily, for blood pressure HYDROCHLOROTHIAZIDE 12.5 MG CAPS 693770 HYDROCHLOROTHIAZIDE Inactive AMOXICILLIN 500 MG CAP 1 tab by mouth 3 times daily AMOXICILLIN 500 MG CAP 463052 AMOXICILLIN Inactive BACTRIM DS 800-160 MG TABS 1 pill by mouth twice daily, for UTI BACTRIM DS 800-160 MG TABS 291771 SULFAMETHOXAZOLE-TRIMETHOPRIM Inactive MACROBID 100 MG ORAL CAPS 1 tab BID for 5 days MACROBID 100 MG ORAL CAPS 8772310 NITROFURANTOIN MONOHYD MACRO Inactive Advance Directives Directive [...] Panel - Chemistry sodium, serum 130 mmol/L 917-838 9663/10/19 potassium, serum 3.5 mmol/L 3.5-5.2 chloride, serum 92 mmol/L 98-107 carbon dioxide, venous blood 33.6 mmol/L 21.0-32.0 blood glucose 118 mg/dL 65-110 calcium, serum 8.8 mg/dL 8.5-10.1 urea nitrogen, blood 11 mg/dL 7-18 creatinine, serum 1.12 mg/dL 0.55-1.30 sodium, serum 132 mmol/L 380-202 9202/08/09 potassium, serum 4.2 mmol/L 3.5-5.2 chloride, serum 99 mmol/L 98-107 carbon dioxide, venous blood 24.7 mmol/L 21.0-32.0 blood glucose 119 mg/dL 65-110 calcium, serum 8.5 mg/dL 8.5-10.1 urea nitrogen, blood 14 mg/dL 7-18 creatinine, serum 1.16 mg/dL 0.60-1.30 Lab Report: CBC-QUEST, COMPREHENSIVE METABOLIC PANEL, LIPID PANEL, Micro ... - Chemistry cholesterol, serum 162 mg/dL 477-535 5140/05/01 HDL cholesterol, serum 68 mg/dL > OR=46 [...] % 11.0-15.0 platelet count 297 THOUSAND/UL 10*3/mm3 478-610 3259/05/01 mean platelet volume 8.9 fL 7.5-12.5 Lab Report: CBC-QUEST, COMPREHENSIVE METABOLIC PANEL, LIPID PANEL, Micro ... - Urinalysis microalbumin/total urine volume <0.2 mg/dL mg/L microalbumin/creatinine ratio, urine NOTE mcg/mg creat mg/L <30 Lab Report: UADIP W/MICRO, AUTO - Chemistry protein, total urine random Negative mg/dL Negative RBC, urine, dipstick 1+ Negative protein, total urine random Negative mg/dL Negative RBC, urine, dipstick 1+ Negative Lab Report: UADIP W/MICRO, AUTO - Urinalysis urobilinogen, urine, semiquantitative (dipstick) 0.2 E.U./dL Normal leukocyte esterase, urine, by dipstick 3+ Negative nitrite, urine, semiquantitative Negative Negative glucose, urine, semiquantitative Negative Negative ketones, urine, by test strip Negative Negative bilirubin, urine Negative Negative urobilinogen, urine, semiquantitative (dipstick) 0.2 Normal leukocyte esterase, urine, by dipstick 3+ Negative nitrite, urine, semiquantitative Negative Negative glucose, urine, semiquantitative Negative Negative ketones, urine, by test strip Negative Negative bilirubin, urine Negative Negative urine color Yellow Colorless;Lightyellow;Straw;Yellow appearance, urine Cloudy Clear specific gravity, urine 1.010 1.000-1.030 pH, urine, semiquantitative 7.5 5.0-8.5 urine color Light yellow Colorless;Lightyellow;Straw;Yellow appearance, urine Cloudy Clear specific gravity, urine 1.010 1.000-1.030 pH, urine, semiquantitative 6.5 5.0-8.5 Encounters Code Encounter Date Provider Facility CPT-62838 Level 3 Est. Patient 13:55:49 CDT Jalil Hayes MD [facility] CPT-37731 Level 3 Est. Patient 14:38:15 CDT Jalil Hayes MD [facility] CPT-52285 Level 4 Est. Patient 14:40:54 CDT Bee Rosas [facility] CPT-88861 Level 4 Est. Patient 10:31:15 CDT Jalil Hayes MD [facility] CPT-99360 Level 4 Est. Patient 15:07:54 CDT Mariaa Whitman [facility] CPT-83352 Level 3 Est. Patient 20:45:54 MATERIAL SCHEDULER Mariaa Whitman ADVERTISING INSERTER [facility] CPT-33447 Level 3 Est. Patient 12:16:16 CDT Ana Cristina Vallejo MD [facility] CPT-69746 Level 4 Est. Patient 12:49:21 CDT Ana Cristina Vallejo MD [facility] CPT-62190 Level 4 Est. Patient 23:02:25 CDT Ana Cristina Vallejo MD [facility] CPT-53120 Level 4 Est. Patient 19:26:33 MATERIAL SCHEDULER Ana Cristina Vallejo MD [facility] CPT-75243 Level 4 Est. Patient 11:28:14 CDT Ana Cristina Vallejo MD [facility] CPT-19224 Level 4 Est. Patient 15:35:46 MATERIAL SCHEDULER Ana Cristina Vallejo MD [facility] CPT-15289 Level 3 Est. Patient 21:06:39 MATERIAL SCHEDULER Alden Kim MD [facility] CPT-00476 Level 4 Est. Patient 15:30:54 MATERIAL SCHEDULER Ana Cristina Vallejo MD [facility] Procedures Code Procedure Name Date Entry Date Standard Description CPT-TCMM Transitional Care Mgmt-Moderate 14:41:55 CDT CPT-14350 EKG Trac and Interp - XRAY USE ONLY 10:35:11 CDT 09/11 CPT-37642 Chest 2V Frontal and Lat - XRAY USE ONLY 10:35:11 CDT CPT-G0438 Initial Annual Wellness Exam 14:54:07 CDT CPT-G0009 Administration of Pneumococcal Vaccine 14:44:24 CDT CPT-40963 Pneumovax 23 Injection Injectable 25 MCG/0.5ML 14:44:24 CDT CPT-32286 First Vx - Ix admin for Medicare patients 14:44:24 CDT CPT-41788 Fluzone High-Dose Intramuscular Suspension 14:44:20 CDT CPT-06640 BMP - LAB USE ONLY 12:38:06 CDT CPT-15723 Urine Culture - LAB USE ONLY 16:56:33 CDT CPT-TCMM Transitional Care Mgmt-Moderate 18:08:16 CDT CPT-39780 Bone Density 09:14:12 CDT CPT-000 Give Appropriate Flu Vaccine 14:51:52 CDT CPT-71740 Fluzone High Dose (>=65 yrs.) 15:19:23 CDT CPT-42108 Immunization Single Admin 15:19:23 CDT CPT-47640 Prevnar 13 15:40:03 CDT CPT-42212 Administration single or combination vaccine inc oral 15 :40:03 CDT CPT-84946 Prevnar 13 13:55:07 CDT CPT-G0008 Administration of Influenza Virus Vaccine 10:49:51 CDT CPT-51382 Fluzone High-Dose Intramuscular Suspension 10:49:51 CDT CPT-84917 Knee 3V 13:31:37 CDT CPT-17616 Bone Density 09:07:05 MATERIAL SCHEDULER CPT-90124 Nail Avulsion 09:46:05 CDT CPT-40762 Administration single or combination vaccine inc oral 16 :11:54 CDT CPT-97992 Influenza High Dose age 65+ 16:11:54 CDT CPT-64160 Administration single or combination vaccine inc oral 10 :53:15 CDT CPT-37688 Influenza High Dose age 65+ 10:53:15 CDT CPT-88576 Bone Density 14:50:58 MATERIAL SCHEDULER CPT-73512 Administration single or combination vaccine inc oral 15 :41:20 MATERIAL SCHEDULER CPT-17597 Zoster Vaccine (Zostavax) 15:41:20 MATERIAL SCHEDULER CPT-07763 Spec Collection and Handling Fee 11:18:25 MATERIAL SCHEDULER CPT-23373 Administration single or combination vaccine inc oral 11 :14:20 CDT CPT-37724 Influenza High Dose age 65+ 11:14:20 CDT
--- OUTSIDE RECORDS SUMMARY | 2017-07-18 08:02 | XMS REPORT | Clinical Summary ---
Author Author Admin, DANDRE Organization [facility] Address Unknown Phone Unavailable Allergies, Adverse Reactions, Alerts Allergy Name Reaction Description Start Date Severity Status Provider NKDA Critical Active Mariaa Whitman INSOLVENCY PRACTITIONER Conditions or Problems Problem Name Problem Code Onset Date Status Entry Date Provider Comment Standard Description Annotate ROUTINE GYNECOLOGICAL EXAMINATION V72.31 Resolved Ana Cristina Vallejo MD PhD Routine gynecological examination MENOPAUSE 627.2 Ruled out Ana Cristina Vallejo MD PhD Symptomatic menopausal or female climacteric states MENOPAUSE 627.2 Active Brianda Reis [facility] Symptomatic menopausal or female climacteric states DIVERTICULOSIS, [...] Dysuria 788.1 Active Idalia Ace LPN Dysuria Forgetfulness 780.99 Active Radha Jones APRN Other general symptoms Unsteady gait 781.2 Active Radha Jones APRN Abnormality of gait Personal history of fall V15.88 Active Radha Jones APRN Personal history of fall ROUTINE GYNECOLOGICAL EXAMINATION ICD-V72.31 Inactive Ana Cristina [...] Provider Patient Instruction VITAMIN D3 2000 UNIT ORAL TABLET 1 daily, for vitamin D deficiency CHOLECALCIFEROL 43198472878 No Longer Active Radha Jones APRN Active CIPRO 250 MG ORAL TABLET 1 tab BID for 7 days CIPROFLOXACIN HCL 33468616184 No Longer Active Radha Jones APRN Active VITAMIN D3 2000 UNIT ORAL CAPSULE 1 capsule po daily CHOLECALCIFEROL 18167342065 Active HEDY Esquivel Active EQL ONE DAILY WOMENS ORAL TABLET 1 po daily MULTIPLE VITAMINS- CALCIUM 70147259255 Active HEDY Esquivel Active MACROBID 100 MG ORAL CAPSULE 1 tab BID for 5 days NITROFURANTOIN MONOHYD MACRO 25451915119 No Longer Active Deepti Junior LPN Active HYDROCHLOROTHIAZIDE 12.5 MG ORAL CAPSULE 1 pill by mouth daily HYDROCHLOROTHIAZIDE 77339503175 Active Jalil Hayes MD Active RANITIDINE HCL 150 MG ORAL CAPSULE once nightly RANITIDINE HCL 11670049767 Active Jalil Hayes MD Active BENAZEPRIL HCL 40 MG ORAL TABLET 1 daily for blood pressure BENAZEPRIL HCL 95390736770 Active Jalil Hayes MD Active HYDROCHLOROTHIAZIDE 12.5 MG ORAL CAPSULE 1 pill by mouth daily, for blood pressure HYDROCHLOROTHIAZIDE 05885982113 No Longer Active Jalil Hayes MD Active AUGMENTIN 875-125 MG ORAL TABLET 1 po BID x 7 days AMOXICILLIN-POT CLAVULANATE 29813319073 No Longer Active Jalil Hayes MD Active OMEPRAZOLE 40 MG ORAL CAPSULE DELAYED RELEASE 1 po q a.m. OMEPRAZOLE 24224909065 Active Peggy Pardo LPN Active MIRALAX ORAL PACKET Takes daily prn POLYETHYLENE GLYCOL 3350 14370621500 No Longer Active Peggy Pardo LPN Active FLONASE ALLERGY RELIEF 50 MCG/ACT NASAL SUSPENSION One spray each nostril daily for allergies FLUTICASONE PROPIONATE 27262484746 No Longer Active Peggy Pardo LPN Active BENADRYL ALLERGY 25 MG ORAL TABLET NEEDED DIPHENHYDRAMINE HCL 65821282574 No Longer Active Peggy Pardo LPN Active ADVIL 200 MG ORAL TABLET TAKE NEEDED IBUPROFEN 13027146718 No Longer Active Peggy Pardo LPN Active COLACE 100 MG ORAL CAPSULE 1 po BID PRN Constipation DOCUSATE SODIUM 33496262404 No Longer Active Deepti Junior LPN Active ALPRAZOLAM 0.25 MG ORAL TABLET 1/2-1 tablet by mouth twice a day as needed for stress ALPRAZOLAM 61009323914 No Longer Active Deepti Hamlinjaja HORVATH Active ALENDRONATE SODIUM 70 MG ORAL TABLET 1 pill by mouth weekly for osteoporosis ALENDRONATE SODIUM 80112641086 Active Mariaa Laudee LUGO Active E-1000 1000 UNIT ORAL CAPSULE Take one by mouth daily VITAMIN E 16743870540 Active HEDY Esquivel Active OSCAL 500/200 D-3 500-200 MG-UNIT ORAL TABLET Take one by mouth 3 times daily , morning, afternoon and evening.] CALCIUM CARBONATE-VITAMIN D 54166410587 Active HEDY Esquivel Active ASPIRIN 81 MG ORAL TABLET CHEWABLE 1 tablet by mouth daily ASPIRIN 03541441911 Active HEDY Esquivel Active ADULT ASPIRIN EC LOW STRENGTH 81 MG ORAL TABLET DELAYED RELEASE TAKE 1 TAB DAILY ASPIRIN 52630816837 No Longer Active Mariaa Laudee LUGO Active ALENDRONATE SODIUM 70 MG ORAL TABLET TAKE 1 TAB ONCE A WEEK 01/20 ALENDRONATE SODIUM 25621023424 No Longer Active Mariaa Atkinsonbeckie LUGO Active CETIRIZINE HCL 10 MG ORAL TABLET 1 po qd PRN Allergies CETIRIZINE HCL 11321944159 Active HEDY Esquivel Active BACTRIM DS 800-160 MG ORAL TABLET 1 pill by mouth twice daily, for UTI 01/29 SULFAMETHOXAZOLE-TRIMETHOPRIM 07077113235 No Longer Active Ana Cristina Vallejo MD PhD Active CARVEDILOL 25 MG ORAL TABLET 1 pill by mouth twice daily for blood pressure CARVEDILOL 81177923918 Active Aneta Bailey LPN Active SYNTHROID 88 MCG ORAL TABLET 1 tablet by mouth daily for thyroid LEVOTHYROXINE SODIUM 72973060999 Active HEDY Esquivel Active AMOXICILLIN 500 MG ORAL CAPSULE 1 tab by mouth 3 times daily 2011 AMOXICILLIN 97372472466 No Longer Active Alden Kim MD Active CALCIUM 500 MG ORAL TABLET TAKE 3 TABS DAILY CALCIUM 18239904037 No Longer Active Mariaa Whitman INSOLVENCY PRACTITIONER Active MULTIVITAMINS TABS TAKE 1 TAB DAILY MULTIPLE VITAMIN No Longer Active Anetajeannie Tavarezum DISASSEMBLER PRODUCT Active TYLENOL 325 MG ORAL TABLET NEEDED ACETAMINOPHEN 74069581618 Active Aneta Tavarezum DISASSEMBLER PRODUCT Active GLUCOSAMINE-CHONDROITIN 500-400 MG ORAL TABLET TAKE 1 TAB DAILY GLUCOSAMINE-CHONDROITIN 75693327652 Active Aneta Tavarezum DISASSEMBLER PRODUCT Active NORVASC 10 MG ORAL TABLET TAKE 1 TAB DAILY AMLODIPINE BESYLATE 96221579727 Active Aneta Tavarezum DISASSEMBLER PRODUCT Active LOVASTATIN 20 MG ORAL TABLET 1 PO Q HS FOR CHOLESTEROL LOVASTATIN 03521178621 Active HEDY Esquivel Active ALENDRONATE SODIUM 70 MG ORAL TABLET TAKE 1 TAB ONCE A WEEK 01/20 ALENDRONATE SODIUM 70 MG ORAL TABLET 570741 ALENDRONATE SODIUM Inactive ADULT ASPIRIN EC LOW STRENGTH 81 MG ORAL TABLET DELAYED RELEASE TAKE 1 TAB DAILY ADULT ASPIRIN EC LOW STRENGTH 81 MG ORAL TABLET DELAYED RELEASE 493361 ASPIRIN Inactive ALPRAZOLAM 0.25 MG ORAL TABLET 1/2-1 tablet by mouth twice a day as needed for stress ALPRAZOLAM 0.25 MG ORAL TABLET 862094 ALPRAZOLAM Inactive COLACE 100 MG ORAL CAPSULE 1 po BID PRN Constipation COLACE 100 MG ORAL CAPSULE 3581142 DOCUSATE SODIUM Inactive ADVIL 200 MG ORAL TABLET TAKE NEEDED ADVIL 200 MG ORAL TABLET 471884 IBUPROFEN Inactive BENADRYL ALLERGY 25 MG ORAL TABLET NEEDED BENADRYL ALLERGY 25 MG ORAL TABLET 7624848 DIPHENHYDRAMINE HCL Inactive FLONASE ALLERGY RELIEF 50 MCG/ACT NASAL SUSPENSION One spray each nostril daily for allergies FLONASE ALLERGY RELIEF 50 MCG/ACT NASAL SUSPENSION 2484800 FLUTICASONE PROPIONATE Inactive MIRALAX ORAL PACKET Takes daily prn MIRALAX ORAL PACKET 128993 POLYETHYLENE GLYCOL 3350 Inactive AUGMENTIN 875-125 MG ORAL TABLET 1 po BID x 7 days AUGMENTIN 875-125 MG ORAL TABLET 332329 AMOXICILLIN-POT CLAVULANATE Inactive HYDROCHLOROTHIAZIDE 12.5 MG ORAL CAPSULE 1 pill by mouth daily, for blood pressure HYDROCHLOROTHIAZIDE 12.5 MG ORAL CAPSULE HYDROCHLOROTHIAZIDE Inactive CIPRO 250 MG ORAL TABLET 1 tab BID for 7 days CIPRO 250 MG ORAL TABLET 725079 CIPROFLOXACIN HCL Inactive VITAMIN D3 2000 UNIT ORAL TABLET 1 daily, for vitamin D deficiency VITAMIN D3 2000 UNIT ORAL TABLET CHOLECALCIFEROL Inactive AMOXICILLIN 500 MG ORAL CAPSULE 1 tab by mouth 3 times daily 2011 AMOXICILLIN 500 MG ORAL CAPSULE 123610 AMOXICILLIN Inactive BACTRIM DS 800-160 MG ORAL TABLET 1 pill by mouth twice daily, for UTI 01/29 BACTRIM DS 800-160 MG ORAL TABLET 076060 SULFAMETHOXAZOLE- TRIMETHOPRIM Inactive MACROBID 100 MG ORAL CAPSULE 1 tab BID for 5 days MACROBID 100 MG ORAL CAPSULE 4290226 NITROFURANTOIN MONOHYD MACRO Inactive Advance Directives Directive [...] Panel - Chemistry sodium, serum 132 mmol/L 061-077 8659/08/09 potassium, serum 4.2 mmol/L 3.5-5.2 chloride, serum 99 mmol/L 98-107 carbon dioxide, venous blood 24.7 mmol/L 21.0-32.0 blood glucose 119 mg/dL 65-110 calcium, serum 8.5 mg/dL 8.5-10.1 urea nitrogen, blood 14 mg/dL 7-18 creatinine, serum 1.16 mg/dL 0.60-1.30 Lab Report: CBC-QUEST, COMPREHENSIVE METABOLIC PANEL, LIPID PANEL, Micro ... - Chemistry cholesterol, serum 162 mg/dL 941-883 3149/05/01 HDL cholesterol, serum 68 mg/dL > OR=46 [...] % 11.0-15.0 platelet count 297 THOUSAND/UL 10*3/mm3 427-176 0138/05/01 mean platelet volume 8.9 fL 7.5-12.5 Lab [...] 5.0-8.5 Encounters Code Encounter Date Provider Facility [facility]-32588 Level 3 Est. Patient 13:55:49 CDT Jalil Hayes MD [facility]-12139 Level 3 Est. Patient 14:38:15 CDT Jalil Hayes MD [facility]43889 Level 4 Est. Patient 14:40:54 CDT Bee Rosas [facility]-94490 Level 4 Est. Patient 10:31:15 CDT Jaill Hayes MD [facility]-43268 Level 4 Est. Patient 15:07:54 CDT Mariaa Whitman [facility]-38887 Level 3 Est. Patient 20:45:54 WAFER FAB TECHNICIAN Mariaa Whitman [facility] CPT-50213 Level 3 Est. Patient 12:16:16 CDT Ana Cristina Vallejo MD [facility]-82235 Level 4 Est. Patient 12:49:21 CDT Ana Cristina Vallejo MD [facility]70660 Level 4 Est. Patient 23:02:25 CDT Ana Cristina Vallejo MD [facility]89892 Level 4 Est. Patient 19:26:33 WAFER FAB TECHNICIAN Ana Cristina Vallejo MD PhD [facility] CPT-96547 Level 4 Est. Patient 11:28:14 CDT Ana Cristina Vallejo MD PhD [facility] CPT-63720 Level 4 Est. Patient 15:35:46 WAFER FAB TECHNICIAN Ana Cristina Vallejo MD PhD [facility] CPT-99651 Level 3 Est. Patient 21:06:39 WAFER FAB TECHNICIAN Alden Kim MD [facility] CPT-60397 Level 4 Est. Patient 15:30:54 WAFER FAB TECHNICIAN Ana Cristina Vallejo MD PhD [facility] Procedures Code Procedure Name Date Entry Date Standard Description CPT-G0439 Subsequent Annual Wellness Exam 11:53:01 WAFER FAB TECHNICIAN CPT-62249 First Vx - Ix admin for Medicare patients 13:35:01 CDT CPT-34660 Fluzone High-Dose Intramuscular Suspension 13:35:01 CDT CPT-TCMM Transitional Care Mgmt-Moderate 14:41:55 CDT CPT-74561 EKG Trac and Interp - XRAY USE ONLY 10:35:11 CDT 09/11 CPT-00649 Chest 2V Frontal and Lat - XRAY USE ONLY 10:35:11 CDT CPT-G0438 Initial Annual Wellness Exam 14:54:07 CDT CPT-G0009 Administration of Pneumococcal Vaccine 14:44:24 CDT CPT-33129 Pneumovax 23 Injection Injectable 25 MCG/0.5ML 14:44:24 CDT CPT-74116 First Vx - Ix admin for Medicare patients 14:44:24 CDT CPT-97065 Fluzone High-Dose Intramuscular Suspension 14:44:20 CDT CPT-91335 BMP - LAB USE ONLY 12:38:06 CDT CPT-23558 Urine Culture - LAB USE ONLY 16:56:33 CDT CPT-TCMM Transitional Care Mgmt-Moderate 18:08:16 CDT CPT-42480 Bone Density 09:14:12 CDT CPT-000 Give Appropriate Flu Vaccine 14:51:52 CDT CPT-31369 Fluzone High Dose (>=65 yrs.) 15:19:23 CDT CPT-09505 Immunization Single Admin 15:19:23 CDT CPT-24110 Prevnar 13 15:40:03 CDT CPT-35912 Administration single or combination vaccine inc oral 15 :40:03 CDT CPT-20672 Prevnar 13 13:55:07 CDT CPT-G0008 Administration of Influenza Virus Vaccine 10:49:51 CDT CPT-53214 Fluzone High-Dose Intramuscular Suspension 10:49:51 CDT CPT-53503 Knee 3V 13:31:37 CDT CPT-14351 Bone Density 09:07:05 WAFER FAB TECHNICIAN CPT-67038 Nail Avulsion 09:46:05 CDT CPT-51501 Administration single or combination vaccine inc oral 16 :11:54 CDT CPT-82187 Influenza High Dose age 65+ 16:11:54 CDT CPT-61958 Administration single or combination vaccine inc oral 10 :53:15 CDT CPT-45178 Influenza High Dose age 65+ 10:53:15 CDT CPT-34931 Bone Density 14:50:58 WAFER FAB TECHNICIAN CPT-99518 Administration single or combination vaccine inc oral 15 :41:20 WAFER FAB TECHNICIAN CPT-28723 Zoster Vaccine (Zostavax) 15:41:20 WAFER FAB TECHNICIAN CPT-10768 Spec Collection and Handling Fee 11:18:25 WAFER FAB TECHNICIAN CPT-13399 Administration single or combination vaccine inc oral 11 :14:20 CDT CPT-99646 Influenza High Dose age 65+ 11:14:20 CDT
--- OUTSIDE RECORDS SUMMARY | 2017-07-18 08:02 | XMS REPORT | Clinical Summary ---
Author Author Admin, QIE Organization Coverity Address Unknown Phone Unavailable Allergies, Adverse Reactions, Alerts Allergy Name Reaction Description Start Date Severity Status Provider No Known Allergies HEDY Gage Conditions or Problems Problem Name Problem Code [...] Urinary bladder pain 788.99 Active Lee Ann Vasquezamanda Other symptoms involving urinary system UTI 599.0 Active Ana Cristina Vallejo MD PhD Urinary tract infection, site not specified ROUTINE GYNECOLOGICAL EXAMINATION ICD-V72.31 Inactive Ana Cristina Vallejo MD PhD INGROWN TOENAIL, INFECTED ICD-703.0 Inactive Ana Cristina Vallejo MD PhD HEALTH SCREENING ICD-V70.0 Inactive Ana Cristina Vallejo MD PhD INGROWN TOENAIL ICD-703.0 Inactive Ana Cristina Vallejo MD PhD Medication List Medication Instructions Start Date Stop Date Generic Name NDC Status Provider Patient Instruction FLONASE ALLERGY RELIEF 50 MCG/ACT NASAL SUSP One spray each nostril daily for allergies FLUTICASONE PROPIONATE 06880123455 Active Mariaadomenico Whitman APRN Active CETIRIZINE HCL 10 MG ORAL TABS 1 po qd PRN Allergies CETIRIZINE HCL 03788710832 Active Mariaa Sidkum SILO PAINTER Active BACTRIM DS 800-160 MG TABS 1 pill by mouth twice daily, for UTI SULFAMETHOXAZOLE-TRIMETHOPRIM 13178033804 No Longer Active Ana Cristina Vallejo MD PhD Active HYDROCHLOROTHIAZIDE 12.5 MG CAPS 1 pill by mouth daily, for blood pressure HYDROCHLOROTHIAZIDE 74705848649 Active Mariaa Antonette SILO PAINTER Active CARVEDILOL 25 MG TABS 1 pill by mouth twice daily for blood pressure CARVEDILOL 88325767734 Active Mariaa Laudee SWARTZN Active SYNTHROID 0.088 MG TAB 1 tablet by mouth daily for thyroid LEVOTHYROXINE SODIUM 47488258864 Active Mariaa Antonette SWARTZN Active AMOXICILLIN 500 MG CAP 1 tab by mouth 3 times daily AMOXICILLIN 76745668195 No Longer Active Alden Kim MD Active [facility] VITAMIN D3 1000 UNIT CAPS TAKE 2 CAP DAILY CHOLECALCIFEROL 47933508258 Active Ana Cristina Vallejo MD PhD Active CALCIUM 500 MG TABS TAKE 3 TABS DAILY CALCIUM 46266616201 Active Aneta Tavarezum BOARD HANDLER Active MULTIVITAMINS TABS TAKE 1 TAB DAILY MULTIPLE VITAMIN 08601758073 Active Aneta Tavarezum BOARD HANDLER Active BENADRYL ALLERGY 25 MG TABS NEEDED DIPHENHYDRAMINE HCL 94970619363 Active Aneta Tavarezum BOARD HANDLER Active TYLENOL 325 MG TABS NEEDED ACETAMINOPHEN 18376119333 Active Aneta Tavarezum BOARD HANDLER Active ADVIL 200 MG TABS TAKE NEEDED IBUPROFEN 61958026352 Active Aneta Tavarezum BOARD HANDLER Active ADULT ASPIRIN EC LOW STRENGTH 81 MG TBEC TAKE 1 TAB DAILY ASPIRIN 60631306198 Active Aneta Tavarezum BOARD HANDLER Active VITAMIN E NATURAL 400 UNIT CAPS TAKE 1 CAP DAILY VITAMIN E 77300311807 Active Aneta Tavarezum BOARD HANDLER Active GLUCOSAMINE-CHONDROITIN 500-400 MG TABS TAKE 1 TAB DAILY GLUCOSAMINE-CHONDROITIN 04926012541 Active Aneta Tavarezum BOARD HANDLER Active NORVASC 10 MG TABS TAKE 1 TAB DAILY AMLODIPINE BESYLATE 59180198897 Active Mariaa Whitman SILO PAINTER Active BENAZEPRIL HCL 40 MG TABS 1 PO BID BENAZEPRIL HCL 98179924066 Active Mariaa Whitman SILO PAINTER Active LOVASTATIN 20 MG TABS 1 PO Q HS FOR CHOLESTEROL LOVASTATIN 90073802783 Active Mariaa Whitman SILO PAINTER Active RANITIDINE HCL 150 MG CAPS 1 PO Q 12 HRS RANITIDINE HCL 11001654006 Active Mariaa Whitman SILO PAINTER Active ALENDRONATE SODIUM 70 MG TABS TAKE 1 TAB ONCE A WEEK ALENDRONATE SODIUM 65400616204 Active Mariaa Whitman SILO PAINTER Active AMOXICILLIN 500 MG CAP 1 tab by mouth 3 times daily AMOXICILLIN 500 MG CAP 043150 AMOXICILLIN Inactive BACTRIM DS 800-160 MG TABS 1 pill by mouth twice daily, for UTI BACTRIM DS 800-160 MG TABS 658107 SULFAMETHOXAZOLE-TRIMETHOPRIM Inactive Immunizations Vaccine Administration Date Value Standard Description influenza immunization (Flu Vax) has been administered given influenza virus vaccine, unspecified formulation dT (Diphtheria and Tetanus) booster given TD Td(adult) unspecified formulation pneumococcal immunization administered Pneumovax 23 pneumococcal polysaccharide vaccine, 23 valent Vital Signs Date Name Value Unit Range Description blood pressure, diastolic - 8462-4 66 mm[Hg] [...] Thyroxine (L), Lipid P ... - Chemistry sodium, serum 132 mmol/L 862-375 5757/04/20 carbon dioxide, venous blood 31.3 mmol/L 21.0-32.0 potassium, serum 3.8 mmol/L 3.5-5.2 chloride, serum 96 mmol/L 98-107 blood glucose 108 mg/dL 65-110 urea nitrogen, blood 8 mg/dL 7-18 creatinine, serum 0.97 mg/dL 0.55-1.30 alanine aminotransferase (SGPT), serum 21 U/L 12-78 aspartate aminotransferase (SGOT), serum 19 U/L 15-37 calcium, serum 8.9 mg/dL 8.5-10.1 bilirubin, serum, total 0.40 mg/dL 0.00-1.00 TSH 1.84 m[iU]/mL 0.36-3.74 thyroxine, serum, free 1.41 ng/dL 0.76-1.46 cholesterol, serum 166 mg/dL 720-403 3554/04/20 triglyceride, serum, fasting 68 mg/dL 30-200 HDL cholesterol, serum 88 mg/dL 32-96 LDL cholesterol, serum 64 mg/dL 0-130 Lab Report: Thyroid Stimulating Hormone (L), Free [...] random Negative mg/dL Negative RBC, urine, dipstick Negative Negative Lab Report: UADIP W/MICRO, AUTO - Urinalysis urobilinogen, urine, semiquantitative (dipstick) 0.2 Normal leukocyte esterase, urine, by dipstick 1+ Negative nitrite, urine, semiquantitative Negative Negative glucose, urine, semiquantitative Negative Negative ketones, urine, by test strip Negative Negative bilirubin, urine Negative Negative urine color Yellow Colorless;Lightyellow;Straw;Yellow appearance, urine Clear Clear specific gravity, urine <=1.005 1.000-1.030 pH, urine, semiquantitative 7.0 5.0-8.5 Encounters Code Encounter Date Provider Facility CPT-40790 Level 3 Est. Patient 20:45:54 FRENCH TUTOR Mariaa Whitman APRN [facility]-41973 Level 3 Est. Patient 12:16:16 CDT Ana Cristina Vallejo MD [facility]-82063 Level 4 Est. Patient 12:49:21 CDT Ana Cristina Vallejo MD [facility]-11661 Level 4 Est. Patient 23:02:25 CDT Ana Cristina Vallejo MD [facility]-05979 Level 4 Est. Patient 19:26:33 FRENCH TUTOR Ana Cristina Vallejo MD [facility] [place] Level 4 Est. Patient 11:28:14 CDT Ana Cristina Vallejo MD [facility]-21429 Level 4 Est. Patient 15:35:46 FRENCH TUTOR Ana Cristina Vallejo MD PhD [facility] CPT-22669 Level 3 Est. Patient 21:06:39 FRENCH TUTOR Alden Kim MD [facility] CPT-32218 Level 4 Est. Patient 15:30:54 FRENCH TUTOR Ana rCistina Vallejo MD PhD [facility] Procedures Code Procedure Name Date Entry Date Standard Description CPT-000 Give Appropriate Flu Vaccine 14:51:52 CDT CPT-13701 Fluzone High Dose (>=65 yrs.) 15:19:23 CDT CPT-30918 Immunization Single Admin 15:19:23 CDT CPT-07854 Prevnar 15:40:03 CDT CPT-70890 Administration single or combination vaccine inc oral 15 :40:03 CDT CPT-97056 Prevnar 13:55:07 CDT CPT-G0008 Administration of Influenza Virus Vaccine 10:49:51 CDT CPT-53924 Fluzone High-Dose Intramuscular Suspension 10:49:51 CDT CPT-50695 Knee 3V 13:31:37 CDT CPT-75346 Bone Density 09:07:05 FRENCH TUTOR CPT-25116 Nail Avulsion 09:46:05 CDT CPT-77454 Administration single or combination vaccine inc oral 16 :11:54 CDT CPT-16851 Influenza High Dose age 65+ 16:11:54 CDT CPT-38142 Administration single or combination vaccine inc oral 10 :53:15 CDT CPT-14961 Influenza High Dose age 65+ 10:53:15 CDT CPT-46972 Bone Density 14:50:58 FRENCH TUTOR CPT-91869 Administration single or combination vaccine inc oral 15 :41:20 FRENCH TUTOR CPT-48863 Zoster Vaccine (Zostavax) 15:41:20 FRENCH TUTOR CPT-20806 Spec Collection and Handling Fee 11:18:25 FRENCH TUTOR CPT-89222 Administration single or combination vaccine inc oral 11 :14:20 CDT CPT-29198 Influenza High Dose age 65+ 11:14:20 CDT
--- OUTSIDE RECORDS SUMMARY | 2017-07-18 08:03 | XMS REPORT | Clinical Summary ---
Author Author Admin, DANDRE Organization [facility] Address Unknown Phone Unavailable Allergies, Adverse Reactions, Alerts Allergy Name Reaction Description Start Date Severity Status Provider NKDA Critical Active Mariaa Whitman [facility] Conditions or Problems Problem Name Problem Code Onset Date Status Entry Date Provider Comment Standard Description Annotate ROUTINE GYNECOLOGICAL EXAMINATION V72.31 Resolved Ana Cristina Vallejo MD PhD Routine gynecological examination MENOPAUSE 627.2 Ruled out Ana Cristina Vallejo MD PhD Symptomatic menopausal or female climacteric states MENOPAUSE 627.2 Active Brianda Reis [facility] Symptomatic menopausal or female climacteric states [...] CAPS 1 pill by mouth daily HYDROCHLOROTHIAZIDE 71980258990 Active Jalil Hayes MD Active RANITIDINE HCL 150 MG CAPS once nightly RANITIDINE HCL 09912626554 Active Jalil Hayes MD Active BENAZEPRIL HCL 40 MG TABS 1 daily for blood pressure BENAZEPRIL HCL 99490959026 Active Jalil Hayes MD Active HYDROCHLOROTHIAZIDE 12.5 MG CAPS 1 pill by mouth daily, for blood pressure HYDROCHLOROTHIAZIDE 34262282646 No Longer Active Jalil Hayes MD Active AUGMENTIN 875-125 MG TAB 1 po BID x 7 days AMOXICILLIN-POT CLAVULANATE 08056306329 No Longer Active Jalil Hayes MD Active OMEPRAZOLE 40 MG CPDR 1 po q a.m. OMEPRAZOLE 84416382757 Active Peggy Pardo LPN Active MIRALAX ORAL PACK Takes daily prn POLYETHYLENE GLYCOL 3350 51686970472 No Longer Active Peggy Pardo LPN Active FLONASE ALLERGY RELIEF 50 MCG/ACT NASAL SUSP One spray each nostril daily for allergies FLUTICASONE PROPIONATE 06653223750 No Longer Active Pegyg Pardo LPN Active BENADRYL ALLERGY 25 MG TABS NEEDED DIPHENHYDRAMINE HCL 08873391033 No Longer Active Peggy Pardo LPN Active ADVIL 200 MG TABS TAKE NEEDED IBUPROFEN 85471225127 No Longer Active Peggy Pardo LPN Active COLACE 100 MG CAP 1 po BID PRN Constipation DOCUSATE SODIUM 18349782333 No Longer Active Deepti Junior LPN Active ALPRAZOLAM 0.25 MG TAB 1/2-1 tablet by mouth twice a day as needed for stress ALPRAZOLAM 47836875743 No Longer Active Deepti Junior LPN Active ALENDRONATE SODIUM 70 MG TABS 1 pill by mouth weekly for osteoporosis ALENDRONATE SODIUM 46577460125 Active Brianda Reis [facility] Active E-1000 1000 UNIT ORAL CAPS Take one by mouth daily VITAMIN E 29852735738 Active Brianda Bergerford [facility] Active OSCAL 500/200 D-3 500-200 MG-UNIT ORAL TABS Take one by mouth 3 times daily, morning, afternoon and evening.] CALCIUM CARBONATE-VITAMIN D 85782734524 Active Brianda Bergerford [facility] Active ASPIRIN 81 MG CHEW TAB 1 tablet by mouth daily ASPIRIN 47418958600 Active Brianda Bergerford [facility] Active ADULT ASPIRIN EC LOW STRENGTH 81 MG TBEC TAKE 1 TAB DAILY ASPIRIN 23095152418 No Longer Active Mariaa Whitman APRN Active ALENDRONATE SODIUM 70 MG TABS TAKE 1 TAB ONCE A WEEK ALENDRONATE SODIUM 25466072181 No Longer Active Mariaa Whitman APRN Active CETIRIZINE HCL 10 MG ORAL TABS 1 po qd PRN Allergies CETIRIZINE HCL 55377139217 Active HEDY Esquivel Active BACTRIM DS 800-160 MG TABS 1 pill by mouth twice daily, for UTI SULFAMETHOXAZOLE-TRIMETHOPRIM 20764460942 No Longer Active Ana Crsitina Vallejo MD PhD Active CARVEDILOL 25 MG TABS 1 pill by mouth twice daily for blood pressure CARVEDILOL 65515610933 Active HEDY Esquivel Active SYNTHROID 0.088 MG TAB 1 tablet by mouth daily for thyroid LEVOTHYROXINE SODIUM 08613518852 Active HEDY Esquivel Active AMOXICILLIN 500 MG CAP 1 tab by mouth 3 times daily AMOXICILLIN 73639279100 No Longer Active Alden Kim MD Active CVS VITAMIN D3 1000 UNIT CAPS TAKE 2 CAP DAILY CHOLECALCIFEROL Active Ana Cristina Vallejo MD PhD Active CALCIUM 500 MG TABS TAKE 3 TABS DAILY CALCIUM 71972460489 No Longer Active Mariaa Whitman APRN Active MULTIVITAMINS TABS TAKE 1 TAB DAILY MULTIPLE VITAMIN Active Anetajeannie Tavarezum CASINO DEALER Active TYLENOL 325 MG TABS NEEDED ACETAMINOPHEN 89411189271 Active Aneta Tavarezum CASINO DEALER Active GLUCOSAMINE-CHONDROITIN 500-400 MG TABS TAKE 1 TAB DAILY GLUCOSAMINE-CHONDROITIN 56707956520 Active Mariaa Whitman APRN Active NORVASC 10 MG TABS TAKE 1 TAB DAILY AMLODIPINE BESYLATE 14267375115 Active HEDY Esquivel Active LOVASTATIN 20 MG TABS 1 PO Q HS FOR CHOLESTEROL LOVASTATIN 15497354039 Active HEDY Esquivel Active ALENDRONATE SODIUM 70 MG TABS TAKE 1 TAB ONCE A WEEK ALENDRONATE SODIUM 70 MG TABS 343321 ALENDRONATE SODIUM Inactive ADULT ASPIRIN EC LOW STRENGTH 81 MG TBEC TAKE 1 TAB DAILY ADULT ASPIRIN EC LOW STRENGTH 81 MG TBEC 026703 ASPIRIN Inactive ALPRAZOLAM 0.25 MG TAB 1/2-1 tablet by mouth twice a day as needed for stress ALPRAZOLAM 0.25 MG TAB 332085 ALPRAZOLAM Inactive COLACE 100 MG CAP 1 po BID PRN Constipation COLACE 100 MG CAP 7593060 DOCUSATE SODIUM Inactive ADVIL 200 MG TABS TAKE NEEDED ADVIL 200 MG TABS 219992 IBUPROFEN Inactive BENADRYL ALLERGY 25 MG TABS NEEDED BENADRYL ALLERGY 25 MG TABS 7847376 DIPHENHYDRAMINE HCL Inactive FLONASE ALLERGY RELIEF 50 MCG/ACT NASAL SUSP One spray each nostril daily for allergies FLONASE ALLERGY RELIEF 50 MCG/ACT NASAL SUSP 2834698 FLUTICASONE PROPIONATE Inactive MIRALAX ORAL PACK Takes daily prn MIRALAX ORAL PACK 722789 POLYETHYLENE GLYCOL 3350 Inactive AUGMENTIN 875-125 MG TAB 1 po BID x 7 days AUGMENTIN 875-125 MG TAB 885852 AMOXICILLIN-POT CLAVULANATE Inactive HYDROCHLOROTHIAZIDE 12.5 MG CAPS 1 pill by mouth daily, for blood pressure HYDROCHLOROTHIAZIDE 12.5 MG CAPS 010880 HYDROCHLOROTHIAZIDE Inactive AMOXICILLIN 500 MG CAP 1 tab by mouth 3 times daily AMOXICILLIN 500 MG CAP 017102 AMOXICILLIN Inactive BACTRIM DS 800-160 MG TABS 1 pill by mouth twice daily, for UTI BACTRIM DS 800-160 MG TABS 564626 SULFAMETHOXAZOLE-TRIMETHOPRIM Inactive Advance Directives Directive Description Start [...] Panel - Chemistry sodium, serum 130 mmol/L 454-469 6842/10/19 potassium, serum 3.5 mmol/L 3.5-5.2 chloride, serum 92 mmol/L 98-107 carbon dioxide, venous blood 33.6 mmol/L 21.0-32.0 blood glucose 118 mg/dL 65-110 calcium, serum 8.8 mg/dL 8.5-10.1 urea nitrogen, blood 11 mg/dL 7-18 creatinine, serum 1.12 mg/dL 0.55-1.30 Lab Report: CBC-QUEST, COMPREHENSIVE METABOLIC PANEL, LIPID PANEL, Micro ... - Chemistry cholesterol, serum 162 mg/dL 993-081 2591/05/01 HDL cholesterol, serum 68 mg/dL > OR=46 [...] % 11.0-15.0 platelet count 297 THOUSAND/UL 10*3/mm3 393-030 8631/05/01 mean platelet volume 8.9 fL 7.5-12.5 Lab [...] Negative Encounters Code Encounter Date Provider Facility CPT-84865 Level 3 Est. Patient 13:55:49 CDT Jalil Hayes MD [facility] CPT-59523 Level 3 Est. Patient 14:38:15 CDT Jalil Hayes MD [facility] CPT-17902 Level 4 Est. Patient 14:40:54 CDT Bee Rosas [facility] CPT-11742 Level 4 Est. Patient 10:31:15 CDT Jalil Hayes MD [facility] CPT-06971 Level 4 Est. Patient 15:07:54 CDT Mariaa Whitman [facility] CPT-45530 Level 3 Est. Patient 20:45:54 PSYCHOLOGY LECTURER Mariaa Whitman [facility] CPT-62707 Level 3 Est. Patient 12:16:16 CDT Ana Cristina Vallejo MD [facility] CPT-96905 Level 4 Est. Patient 12:49:21 CDT Ana Cristina Vallejo MD [facility] CPT-17547 Level 4 Est. Patient 23:02:25 CDT Ana Cristina Vallejo MD [facility] CPT-81597 Level 4 Est. Patient 19:26:33 PSYCHOLOGY LECTURER Ana Cristina Vallejo MD [facility]-78742 Level 4 Est. Patient 11:28:14 CDT Ana Cristina Vallejo MD [facility]-42037 Level 4 Est. Patient 15:35:46 PSYCHOLOGY LECTURER Ana Cristina Vallejo MD [facility] CPT-16622 Level 3 Est. Patient 21:06:39 PSYCHOLOGY LECTURER Alden Kim MD [facility] CPT-04383 Level 4 Est. Patient 15:30:54 PSYCHOLOGY LECTURER Ana Cristina Vallejo MD [facility] Procedures Code Procedure Name Date Entry Date Standard Description CPT-TCMM Transitional Care Mgmt-Moderate 14:41:55 CDT CPT-71028 EKG Trac and Interp - XRAY USE ONLY 10:35:11 CDT 09/11 CPT-83403 Chest 2V Frontal and Lat - XRAY USE ONLY 10:35:11 CDT CPT-G0438 Initial Annual Wellness Exam 14:54:07 CDT CPT-G0009 Administration of Pneumococcal Vaccine 14:44:24 CDT CPT-71877 Pneumovax 23 Injection Injectable 25 MCG/0.5ML 14:44:24 CDT CPT-85136 First Vx - Ix admin for Medicare patients 14:44:24 CDT CPT-70082 Fluzone High-Dose Intramuscular Suspension 14:44:20 CDT CPT-92033 BMP - LAB USE ONLY 12:38:06 CDT CPT-45232 Urine Culture - LAB USE ONLY 16:56:33 CDT CPT-TCMM Transitional Care Mgmt-Moderate 18:08:16 CDT CPT-89386 Bone Density 09:14:12 CDT CPT-000 Give Appropriate Flu Vaccine 14:51:52 CDT CPT-85704 Fluzone High Dose (>=65 yrs.) 15:19:23 CDT CPT-10340 Immunization Single Admin 15:19:23 CDT CPT-14553 Prevnar 13 15:40:03 CDT CPT-02359 Administration single or combination vaccine inc oral 15 :40:03 CDT CPT-67077 Prevnar 13 13:55:07 CDT CPT-G0008 Administration of Influenza Virus Vaccine 10:49:51 CDT CPT-43206 Fluzone High-Dose Intramuscular Suspension 10:49:51 CDT CPT-25600 Knee 3V 13:31:37 CDT CPT-40870 Bone Density 09:07:05 PSYCHOLOGY LECTURER CPT-38005 Nail Avulsion 09:46:05 CDT CPT-17458 Administration single or combination vaccine inc oral 16 :11:54 CDT CPT-51673 Influenza High Dose age 65+ 16:11:54 CDT CPT-68568 Administration single or combination vaccine inc oral 10 :53:15 CDT CPT-91410 Influenza High Dose age 65+ 10:53:15 CDT CPT-32913 Bone Density 14:50:58 PSYCHOLOGY LECTURER CPT-84968 Administration single or combination vaccine inc oral 15 :41:20 PSYCHOLOGY LECTURER CPT-00191 Zoster Vaccine (Zostavax) 15:41:20 PSYCHOLOGY LECTURER CPT-81556 Spec Collection and Handling Fee 11:18:25 PSYCHOLOGY LECTURER CPT-20569 Administration single or combination vaccine inc oral 11 :14:20 CDT CPT-90542 Influenza High Dose age 65+ 11:14:20 CDT
--- OUTSIDE RECORDS SUMMARY | 2017-07-18 08:03 | XMS REPORT | Clinical Summary ---
Author Author Admin, DANDRE Organization [facility] Address Unknown Phone Unavailable Allergies, Adverse Reactions, Alerts Allergy Name Reaction Description Start Date Severity Status Provider NKDA Critical Active Mariaa Whitman MAINTENANCE PORTER Conditions or Problems Problem Name Problem Code Onset Date Status Entry Date Provider Comment Standard Description Annotate ROUTINE GYNECOLOGICAL EXAMINATION V72.31 Resolved Ana Cristina Vallejo MD PhD Routine gynecological examination MENOPAUSE 627.2 Ruled out Ana Cristina Vallejo MD PhD Symptomatic menopausal or female climacteric states MENOPAUSE 627.2 Active Brianda Reis [facility] Symptomatic menopausal or female climacteric states [...] Active Jalil Hayes MD Syncope and collapse ROUTINE GYNECOLOGICAL EXAMINATION ICD-V72.31 Inactive Ana Cristina [...] Generic Name NDC Status Provider Patient Instruction BENAZEPRIL HCL 40 MG TABS 1 daily for blood pressure BENAZEPRIL HCL 65857753405 Active Jalil Hayes MD Active HYDROCHLOROTHIAZIDE 12.5 MG CAPS 1 pill by mouth daily, for blood pressure HYDROCHLOROTHIAZIDE 99475817575 No Longer Active Jalil Hayes MD Active AUGMENTIN 875-125 MG TAB 1 po BID x 7 days AMOXICILLIN-POT CLAVULANATE 06137421132 No Longer Active Jalil Hayes MD Active OMEPRAZOLE 40 MG CPDR 1 po q a.m. OMEPRAZOLE 37459911939 Active Peggy Pardo LPN Active MIRALAX ORAL PACK Takes daily prn POLYETHYLENE GLYCOL 3350 [id number] No Longer Active Peggy Pardo LPN Active FLONASE ALLERGY RELIEF 50 MCG/ACT NASAL SUSP One spray each nostril daily for allergies FLUTICASONE PROPIONATE 95287282407 No Longer Active Peggy Pardo LPN Active BENADRYL ALLERGY 25 MG TABS NEEDED DIPHENHYDRAMINE HCL 71008672952 No Longer Active Peggy Pardo LPN Active ADVIL 200 MG TABS TAKE NEEDED IBUPROFEN 41817260267 No Longer Active Peggy Edvin, FLOOR SUPERVISOR Active COLACE 100 MG CAP 1 po BID PRN Constipation DOCUSATE SODIUM 73553866380 No Longer Active Deeptitayler Junior LPN Active ALPRAZOLAM 0.25 MG TAB 1/2-1 tablet by mouth twice a day as needed for stress ALPRAZOLAM 43073255691 No Longer Active Deepti Sandi ANGUIANON Active ALENDRONATE SODIUM 70 MG TABS 1 pill by mouth weekly for osteoporosis ALENDRONATE SODIUM 75423349291 Active Briandahelen Reis Robin Active E-1000 1000 UNIT ORAL CAPS Take one by mouth daily VITAMIN E 92298404036 Active Brianda Reis Robin Active OSCAL 500/200 D-3 500-200 MG-UNIT ORAL TABS Take one by mouth 3 times daily, morning, afternoon and evening.] CALCIUM CARBONATE-VITAMIN D 34179202303 Active Brianda KNOTT Active ASPIRIN 81 MG CHEW TAB 1 tablet by mouth daily ASPIRIN 77455493760 Active Brianda Reis Robin Active ADULT ASPIRIN EC LOW STRENGTH 81 MG TBEC TAKE 1 TAB DAILY ASPIRIN 39241578830 No Longer Active Mairaa Whitman MAINTENANCE PORTER Active ALENDRONATE SODIUM 70 MG TABS TAKE 1 TAB ONCE A WEEK ALENDRONATE SODIUM 94356103405 No Longer Active Mariaa Whitman MAINTENANCE PORTER Active CETIRIZINE HCL 10 MG ORAL TABS 1 po qd PRN Allergies CETIRIZINE HCL 36821100648 Active HEDY Esquivel Active BACTRIM DS 800-160 MG TABS 1 pill by mouth twice daily, for UTI SULFAMETHOXAZOLE-TRIMETHOPRIM 16854815157 No Longer Active Ana Cristina Vallejo MD PhD Active CARVEDILOL 25 MG TABS 1 pill by mouth twice daily for blood pressure CARVEDILOL 05133540809 Active HEDY Esquivel Active SYNTHROID 0.088 MG TAB 1 tablet by mouth daily for thyroid LEVOTHYROXINE SODIUM 26223882004 Active HEDY Esquivel Active AMOXICILLIN 500 MG CAP 1 tab by mouth 3 times daily AMOXICILLIN 85788597305 No Longer Active Alden Kim MD Active CVS VITAMIN D3 1000 UNIT CAPS TAKE 2 CAP DAILY CHOLECALCIFEROL Active Ana Cristina Vallejo MD PhD Active CALCIUM 500 MG TABS TAKE 3 TABS DAILY CALCIUM 50604470585 No Longer Active Mariaa Whitman APRN Active MULTIVITAMINS TABS TAKE 1 TAB DAILY MULTIPLE VITAMIN Active Aneta D Leo FLOOR SUPERVISOR Active TYLENOL 325 MG TABS NEEDED ACETAMINOPHEN 28508604992 Active Aneta Singh Leo FLOOR SUPERVISOR Active GLUCOSAMINE-CHONDROITIN 500-400 MG TABS TAKE 1 TAB DAILY GLUCOSAMINE-CHONDROITIN 85785345403 Active Mariaa Whitman APRN Active NORVASC 10 MG TABS TAKE 1 TAB DAILY AMLODIPINE BESYLATE 28119340840 Active HEDY Esquivel Active LOVASTATIN 20 MG TABS 1 PO Q HS FOR CHOLESTEROL LOVASTATIN 57343047408 Active HEDY Esquivel Active RANITIDINE HCL 150 MG CAPS 1 PO Q 12 HRS RANITIDINE HCL 20754566772 Active HEDY Esquivel Active ALENDRONATE SODIUM 70 MG TABS TAKE 1 TAB ONCE A WEEK ALENDRONATE SODIUM 70 MG TABS 630501 ALENDRONATE SODIUM Inactive ADULT ASPIRIN EC LOW STRENGTH 81 MG TBEC TAKE 1 TAB DAILY ADULT ASPIRIN EC LOW STRENGTH 81 MG TBEC 203543 ASPIRIN Inactive ALPRAZOLAM 0.25 MG TAB 1/2-1 tablet by mouth twice a day as needed for stress ALPRAZOLAM 0.25 MG TAB 066890 ALPRAZOLAM Inactive COLACE 100 MG CAP 1 po BID PRN Constipation COLACE 100 MG CAP 4215757 DOCUSATE SODIUM Inactive ADVIL 200 MG TABS TAKE NEEDED ADVIL 200 MG TABS 653460 IBUPROFEN Inactive BENADRYL ALLERGY 25 MG TABS NEEDED BENADRYL ALLERGY 25 MG TABS 2529573 DIPHENHYDRAMINE HCL Inactive FLONASE ALLERGY RELIEF 50 MCG/ACT NASAL SUSP One spray each nostril daily for allergies FLONASE ALLERGY RELIEF 50 MCG/ACT NASAL SUSP 9571132 FLUTICASONE PROPIONATE Inactive MIRALAX ORAL PACK Takes daily prn MIRALAX ORAL PACK 922041 POLYETHYLENE GLYCOL 3350 Inactive AUGMENTIN 875-125 MG TAB 1 po BID x 7 days AUGMENTIN 875-125 MG TAB 118046 AMOXICILLIN-POT CLAVULANATE Inactive HYDROCHLOROTHIAZIDE 12.5 MG CAPS 1 pill by mouth daily, for blood pressure HYDROCHLOROTHIAZIDE 12.5 MG CAPS 354114 HYDROCHLOROTHIAZIDE Inactive AMOXICILLIN 500 MG CAP 1 tab by mouth 3 times daily AMOXICILLIN 500 MG CAP 732286 AMOXICILLIN Inactive BACTRIM DS 800-160 MG TABS 1 pill by mouth twice daily, for UTI BACTRIM DS 800-160 MG TABS 658804 SULFAMETHOXAZOLE-TRIMETHOPRIM Inactive Advance Directives Directive Description Start [...] Range Description blood pressure, diastolic - 8462-4 47 mm[Hg] BP womack blood pressure, systolic - 8480-6 123 mm[Hg] BP sys height E&M - 8302-2 64.5 [in_us] Bdy height pulse rate E&M - 8867-4 70 /min Heart rate temperature E&M 98.8 [degF] Body temperature weight E&M - 3141-9 170 [lb_av] Weight Measured blood pressure, diastolic - 8462-4 52 mm[Hg] [...] Panel - Chemistry sodium, serum 130 mmol/L 249-951 8505/10/19 potassium, serum 3.5 mmol/L 3.5-5.2 chloride, serum 92 mmol/L 98-107 carbon dioxide, venous blood 33.6 mmol/L 21.0-32.0 blood glucose 118 mg/dL 65-110 calcium, serum 8.8 mg/dL 8.5-10.1 urea nitrogen, blood 11 mg/dL 7-18 creatinine, serum 1.12 mg/dL 0.55-1.30 Lab Report: CBC-QUEST, COMPREHENSIVE METABOLIC PANEL, LIPID PANEL, Micro ... - Chemistry cholesterol, serum 162 mg/dL 424-381 8017/05/01 HDL cholesterol, serum 68 mg/dL > OR=46 [...] % 11.0-15.0 platelet count 297 THOUSAND/UL 10*3/mm3 527-789 7939/05/01 mean platelet volume 8.9 fL 7.5-12.5 Lab [...] Negative Encounters Code Encounter Date Provider Facility CPT-62676 Level 3 Est. Patient 14:38:15 CDT Jalil Hayes MD [facility] CPT-57098 Level 4 Est. Patient 14:40:54 CDT Bee Rosas [facility] CPT-67934 Level 4 Est. Patient 10:31:15 CDT Jalil Hayes MD [facility]-16560 Level 4 Est. Patient 15:07:54 CDT Mariaa Whitman [facility]-95737 Level 3 Est. Patient 20:45:54 BOILER OPERATOR HELPER Mariaa Whitman [facility] CPT-32434 Level 3 Est. Patient 12:16:16 CDT Ana Cristina Vallejo MD [facility]-64052 Level 4 Est. Patient 12:49:21 CDT Ana Cristina Vallejo MD [facility] CPT-74677 Level 4 Est. Patient 23:02:25 CDT [facility] Level 4 Est. Patient 19:26:33 BOILER OPERATOR HELPER Ana Cristina Vallejo MD PhD [facility] CPT-46302 Level 4 Est. Patient 11:28:14 CDT Ana Cristina Vallejo MD [facility] CPT-03259 Level 4 Est. Patient 15:35:46 BOILER OPERATOR HELPER Ana Cristina Vallejo MD PhD [facility] CPT-42727 Level 3 Est. Patient 21:06:39 BOILER OPERATOR HELPER Alden Kim MD [facility] CPT-72251 Level 4 Est. Patient 15:30:54 BOILER OPERATOR HELPER Ana Cristina Vallejo MD [facility] Procedures Code Procedure Name Date Entry Date Standard Description CPT-TCMM Transitional Care Mgmt-Moderate 14:41:55 CDT CPT-32904 EKG Trac and Interp - XRAY USE ONLY 10:35:11 CDT 09/11 CPT-12012 Chest 2V Frontal and Lat - XRAY USE ONLY 10:35:11 CDT CPT-G0438 Initial Annual Wellness Exam 14:54:07 CDT CPT-G0009 Administration of Pneumococcal Vaccine 14:44:24 CDT CPT-07234 Pneumovax 23 Injection Injectable 25 MCG/0.5ML 14:44:24 CDT CPT-65854 First Vx - Ix admin for Medicare patients 14:44:24 CDT CPT-73738 Fluzone High-Dose Intramuscular Suspension 14:44:20 CDT CPT-66788 BMP - LAB USE ONLY 12:38:06 CDT CPT-43699 Urine Culture - LAB USE ONLY 16:56:33 CDT CPT-TCMM Transitional Care Mgmt-Moderate 18:08:16 CDT CPT-79790 Bone Density 09:14:12 CDT CPT-000 Give Appropriate Flu Vaccine 14:51:52 CDT CPT-04519 Fluzone High Dose (>=65 yrs.) 15:19:23 CDT CPT-24931 Immunization Single Admin 15:19:23 CDT CPT-47377 Prevnar 13 15:40:03 CDT CPT-49487 Administration single or combination vaccine inc oral 15 :40:03 CDT CPT-67063 Prevnar 13 13:55:07 CDT CPT-G0008 Administration of Influenza Virus Vaccine 10:49:51 CDT CPT-28994 Fluzone High-Dose Intramuscular Suspension 10:49:51 CDT CPT-38178 Knee 3V 13:31:37 CDT CPT-40765 Bone Density 09:07:05 BOILER OPERATOR HELPER CPT-57472 Nail Avulsion 09:46:05 CDT CPT-36456 Administration single or combination vaccine inc oral 16 :11:54 CDT CPT-29566 Influenza High Dose age 65+ 16:11:54 CDT CPT-67845 Administration single or combination vaccine inc oral 10 :53:15 CDT CPT-45403 Influenza High Dose age 65+ 10:53:15 CDT CPT-17152 Bone Density 14:50:58 BOILER OPERATOR HELPER CPT-43500 Administration single or combination vaccine inc oral 15 :41:20 BOILER OPERATOR HELPER CPT-54266 Zoster Vaccine (Zostavax) 15:41:20 BOILER OPERATOR HELPER CPT-37775 Spec Collection and Handling Fee 11:18:25 BOILER OPERATOR HELPER CPT-93896 Administration single or combination vaccine inc oral 11 :14:20 CDT CPT-22533 Influenza High Dose age 65+ 11:14:20 CDT
--- OUTSIDE RECORDS SUMMARY | 2017-07-18 08:04 | XMS REPORT | Clinical Summary ---
Author Author Admin, DANDRE Organization [facility] Address Unknown Phone Unavailable Allergies, Adverse Reactions, Alerts Allergy Name Reaction Description Start Date Severity Status Provider No Known Allergies HDEY Gage Conditions or Problems Problem Name Problem [...] and unspecified hyperlipidemia HYPERTENSION 401.9 Active Ana Cristnia Vallejo MD PhD Unspecified essential hypertension HYPOTHYROIDISM [...] Generic Name NDC Status Provider Patient Instruction BACTRIM DS 800-160 MG TABS 1 pill by mouth twice daily, for UTI SULFAMETHOXAZOLE-TRIMETHOPRIM 51906942881 No Longer Active Ana Cristina Vallejo MD PhD Active HYDROCHLOROTHIAZIDE 12.5 MG CAPS 1 pill by mouth daily, for blood pressure HYDROCHLOROTHIAZIDE 94130591401 Active Mariaadomenico Whitman APRN Active CARVEDILOL 25 MG TABS 1 pill by mouth twice daily for blood pressure CARVEDILOL 25338697940 Active Mariaa Yokum WARRANTY MANAGER Active SYNTHROID 0.088 MG TAB 1 tablet by mouth daily for thyroid LEVOTHYROXINE SODIUM 27193553359 Active Mariaa Laudee WARRANTY MANAGER Active AMOXICILLIN 500 MG CAP 1 tab by mouth 3 times daily AMOXICILLIN 93848989304 No Longer Active Alden Kim MD Active CVS VITAMIN D3 1000 UNIT CAPS TAKE 2 CAP DAILY CHOLECALCIFEROL 30583367847 Active Ana Cristina Vallejo MD PhD Active CALCIUM 500 MG TABS TAKE 3 TABS DAILY CALCIUM 43314075281 Active Aneta Samantha Leo STEAM FITTER HELPER Active MULTIVITAMINS TABS TAKE 1 TAB DAILY MULTIPLE VITAMIN 72807116454 Active Aneta Tavarezum STEAM FITTER HELPER Active BENADRYL ALLERGY 25 MG TABS NEEDED DIPHENHYDRAMINE HCL 14191797942 Active Aneta Singh Leo STEAM FITTER HELPER Active TYLENOL 325 MG TABS NEEDED ACETAMINOPHEN 34470539675 Active Aneta Tavarezum STEAM FITTER HELPER Active ADVIL 200 MG TABS TAKE NEEDED IBUPROFEN 96935228138 Active Aneta D Leo STEAM FITTER HELPER Active ADULT ASPIRIN EC LOW STRENGTH 81 MG TBEC TAKE 1 TAB DAILY ASPIRIN 39266112126 Active Aneta Tavarezum STEAM FITTER HELPER Active VITAMIN E NATURAL 400 UNIT CAPS TAKE 1 CAP DAILY VITAMIN E 73258250016 Active Aneta Tavarezum STEAM FITTER HELPER Active GLUCOSAMINE-CHONDROITIN 500-400 MG TABS TAKE 1 TAB DAILY GLUCOSAMINE-CHONDROITIN 38059064760 Active Aneta Tavarezum STEAM FITTER HELPER Active NORVASC 10 MG TABS TAKE 1 TAB DAILY AMLODIPINE BESYLATE 43033150421 Active Mariaa Whitman APRN Active BENAZEPRIL HCL 40 MG TABS 1 PO BID BENAZEPRIL HCL 45666222834 Active HEDY Esquivel Active LOVASTATIN 20 MG TABS 1 PO Q HS FOR CHOLESTEROL LOVASTATIN 04298254026 Active Mariaa Whitman APRN Active RANITIDINE HCL 150 MG CAPS 1 PO Q 12 HRS RANITIDINE HCL 16872932660 Active Mariaa Whitman APRN Active ALENDRONATE SODIUM 70 MG TABS TAKE 1 TAB ONCE A WEEK ALENDRONATE SODIUM 81407473567 Active Mariaa Whitman APRN Active AMOXICILLIN 500 MG CAP 1 tab by mouth 3 times daily AMOXICILLIN 500 MG CAP 919279 AMOXICILLIN Inactive BACTRIM DS 800-160 MG TABS 1 pill by mouth twice daily, for UTI BACTRIM DS 800-160 MG TABS 588693 SULFAMETHOXAZOLE-TRIMETHOPRIM Inactive Immunizations Vaccine Administration Date Value [...] E&M - 3141-9 164.5 [lb_av] Weight Measured blood pressure, diastolic - 8462-4 55 mm[Hg] BP womack blood pressure, systolic - 8480-6 130 mm[Hg] BP sys pulse rate E&M - 8867-4 66 /min Heart rate temperature E&M 98.0 [degF] Body temperature weight E&M - 3141-9 179.12 [lb_av] Weight Measured Diagnostic Results Date Name Value Unit Range Description Lab Report: Basic Metabolic Panel - Chemistry sodium, serum 136 mmol/L 110-360 2718/03/24 potassium, serum 4.3 mmol/L 3.5-5.2 chloride, serum 98 mmol/L 98-107 carbon dioxide, venous blood 28.8 mmol/L 21.0-32.0 blood glucose 94 mg/dL 65-110 calcium, serum 9.5 mg/dL 8.5-10.1 urea nitrogen, blood 10 mg/dL 7-18 creatinine, serum 1.10 mg/dL 0.60-1.30 Lab Report: UADIP W/MICRO, AUTO [...] 5.0-8.5 Encounters Code Encounter Date Provider Facility CPT-84142 Level 3 Est. Patient 20:45:54 THREAD INSPECTOR Mariaa Whitman APRN [facility] CPT-77810 Level 3 Est. Patient 12:16:16 CDT Ana Cristina Vallejo MD [facility] CPT-08620 Level 4 Est. Patient 12:49:21 CDT Ana Cristina Vallejo MD PhD [facility] CPT-27053 Level 4 Est. Patient 23:02:25 CDT Ana Cristina Vallejo MD [facility]57871 Level 4 Est. Patient 19:26:33 THREAD INSPECTOR Ana Cristina Vallejo MD PhD [facility]-72892 Level 4 Est. Patient 11:28:14 CDT Ana Cristina Vallejo MD PhD [facility] CPT-05288 Level 4 Est. Patient 15:35:46 THREAD INSPECTOR Ana Cristina Vallejo MD PhD [facility] CPT-37366 Level 3 Est. Patient 21:06:39 THREAD INSPECTOR Alden Kim MD [facility] CPT-02904 Level 4 Est. Patient 15:30:54 THREAD INSPECTOR Ana Cristina Vallejo MD PhD [facility] Procedures Code Procedure Name Date Entry Date Standard Description CPT-000 Give Appropriate Flu Vaccine 14:51:52 CDT CPT-02740 Fluzone High Dose (>=65 yrs.) 15:19:23 CDT CPT-18194 Immunization Single Admin 15:19:23 CDT CPT-15480 Prevnar 13 15:40:03 CDT CPT-80922 Administration single or combination vaccine inc oral 15 :40:03 CDT CPT-24623 Prevnar 13 13:55:07 CDT CPT-G0008 Administration of Influenza Virus Vaccine 10:49:51 CDT CPT-53412 Fluzone High-Dose Intramuscular Suspension 10:49:51 CDT CPT-08423 Knee 3V 13:31:37 CDT CPT-45610 Bone Density 09:07:05 THREAD INSPECTOR CPT-81697 Nail Avulsion 09:46:05 CDT CPT-60002 Administration single or combination vaccine inc oral 16 :11:54 CDT CPT-50171 Influenza High Dose age 65+ 16:11:54 CDT CPT-17527 Administration single or combination vaccine inc oral 10 :53:15 CDT CPT-75711 Influenza High Dose age 65+ 10:53:15 CDT CPT-46055 Bone Density 14:50:58 THREAD INSPECTOR CPT-75033 Administration single or combination vaccine inc oral 15 :41:20 THREAD INSPECTOR CPT-73799 Zoster Vaccine (Zostavax) 15:41:20 THREAD INSPECTOR CPT-19257 Spec Collection and Handling Fee 11:18:25 THREAD INSPECTOR CPT-63412 Administration single or combination vaccine inc oral 11 :14:20 CDT CPT-80865 Influenza High Dose age 65+ 11:14:20 CDT
--- OUTSIDE RECORDS SUMMARY | 2017-07-18 08:04 | XMS REPORT | Clinical Summary ---
Author Author Admin, DANDRE Organization [facility] Address Unknown Phone Unavailable Allergies, Adverse Reactions, Alerts Allergy Name Reaction Description Start Date Severity Status Provider NKDA Critical Active Mariaa Whitman CLAY PIGEON LOADER Conditions or Problems Problem Name Problem Code Onset Date Status Entry Date Provider Comment Standard Description Annotate ROUTINE GYNECOLOGICAL EXAMINATION V72.31 Resolved Ana Cristina Vallejo MD PhD Routine gynecological examination MENOPAUSE 627.2 Ruled out Ana Cristina Vallejo MD PhD Symptomatic menopausal or female climacteric states MENOPAUSE 627.2 Active Brianda Reis [facility] Symptomatic menopausal or female climacteric states [...] a day as needed for stress ALPRAZOLAM 30094592641 Active Mariaa Whitman APRN Active COLACE 100 MG CAP 1 po BID PRN Constipation DOCUSATE SODIUM 31980757181 Active Mariaa Antonette LUGO Active MIRALAX ORAL PACK Takes daily prn POLYETHYLENE GLYCOL 3350 42755718482 Active Mariaa Whitman APRN Active ALENDRONATE SODIUM 70 MG TABS 1 pill by mouth weekly for osteoporosis ALENDRONATE SODIUM 13487842486 Active Brianda KNOTT Active E-1000 1000 UNIT ORAL CAPS Take one by mouth daily VITAMIN E 53516777448 Active Brianda KNOTT Active OSCAL 500/200 D-3 500-200 MG-UNIT ORAL TABS Take one by mouth 3 times daily, morning, afternoon and evening.] CALCIUM CARBONATE-VITAMIN D 10134942037 Active Brianda RICK Active ASPIRIN 81 MG CHEW TAB 1 tablet by mouth daily ASPIRIN 80659997805 Active Brianda RICK Active ADULT ASPIRIN EC LOW STRENGTH 81 MG TBEC TAKE 1 TAB DAILY ASPIRIN 03990152410 No Longer Active Mariaa Whitman APRN Active ALENDRONATE SODIUM 70 MG TABS TAKE 1 TAB ONCE A WEEK ALENDRONATE SODIUM 43490756402 No Longer Active Mariaa Whitman APRN Active FLONASE ALLERGY RELIEF 50 MCG/ACT NASAL SUSP One spray each nostril daily for allergies FLUTICASONE PROPIONATE 33912729698 Active Mariaa Whitman APRN Active CETIRIZINE HCL 10 MG ORAL TABS 1 po qd PRN Allergies CETIRIZINE HCL 76128935648 Active Mariaa Whitman APRN Active BACTRIM DS 800-160 MG TABS 1 pill by mouth twice daily, for UTI SULFAMETHOXAZOLE-TRIMETHOPRIM 57704794052 No Longer Active Ana Cristina Vallejo MD PhD Active HYDROCHLOROTHIAZIDE 12.5 MG CAPS 1 pill by mouth daily, for blood pressure HYDROCHLOROTHIAZIDE 09624006389 Active Mariaa Whitman APRN Active CARVEDILOL 25 MG TABS 1 pill by mouth twice daily for blood pressure CARVEDILOL 36916589886 Active Mariaa Whitman APRN Active SYNTHROID 0.088 MG TAB 1 tablet by mouth daily for thyroid LEVOTHYROXINE SODIUM 60582444894 Active Mariaa Yokum CLAY PIGEON LOADER Active AMOXICILLIN 500 MG CAP 1 tab by mouth 3 times daily AMOXICILLIN 45650745494 No Longer Active Alden Kim MD Active CVS VITAMIN D3 1000 UNIT CAPS TAKE 2 CAP DAILY CHOLECALCIFEROL Active Ana Cristina Vallejo MD PhD Active CALCIUM 500 MG TABS TAKE 3 TABS DAILY CALCIUM 17989613738 No Longer Active Mariaa Yoxuanum CLAY PIGEON LOADER Active MULTIVITAMINS TABS TAKE 1 TAB DAILY MULTIPLE VITAMIN Active Aneta D Leo STRAW HAT BRIM RAISER OPERATOR Active BENADRYL ALLERGY 25 MG TABS NEEDED DIPHENHYDRAMINE HCL 31009275897 Active Aneta D Leo STRAW HAT BRIM RAISER OPERATOR Active TYLENOL 325 MG TABS NEEDED ACETAMINOPHEN 55673836025 Active Aneta D Leo STRAW HAT BRIM RAISER OPERATOR Active ADVIL 200 MG TABS TAKE NEEDED IBUPROFEN 90776580589 Active Aneta D Leo STRAW HAT BRIM RAISER OPERATOR Active GLUCOSAMINE-CHONDROITIN 500-400 MG TABS TAKE 1 TAB DAILY GLUCOSAMINE-CHONDROITIN 40179656072 Active Mariaa Yokum CLAY PIGEON LOADER Active NORVASC 10 MG TABS TAKE 1 TAB DAILY AMLODIPINE BESYLATE 28199253832 Active Mariaa Yokum CLAY PIGEON LOADER Active BENAZEPRIL HCL 40 MG TABS 1 PO BID BENAZEPRIL HCL 61772589145 Active Mariaa Yoxuanum CLAY PIGEON LOADER Active LOVASTATIN 20 MG TABS 1 PO Q HS FOR CHOLESTEROL LOVASTATIN 48356626272 Active Mariaa Yokum CLAY PIGEON LOADER Active RANITIDINE HCL 150 MG CAPS 1 PO Q 12 HRS RANITIDINE HCL 91437209475 Active Mariaa Yokum CLAY PIGEON LOADER Active ALENDRONATE SODIUM 70 MG TABS TAKE 1 TAB ONCE A WEEK ALENDRONATE SODIUM 70 MG TABS 864876 ALENDRONATE SODIUM Inactive ADULT ASPIRIN EC LOW STRENGTH 81 MG TBEC TAKE 1 TAB DAILY ADULT ASPIRIN EC LOW STRENGTH 81 MG TBEC 985320 ASPIRIN Inactive AMOXICILLIN 500 MG CAP 1 tab by mouth 3 times daily AMOXICILLIN 500 MG CAP 319334 AMOXICILLIN Inactive BACTRIM DS 800-160 MG TABS 1 pill by mouth twice daily, for UTI BACTRIM DS 800-160 MG TABS 301083 SULFAMETHOXAZOLE-TRIMETHOPRIM Inactive Advance Directives Directive Description Start [...] Panel - Chemistry sodium, serum 130 mmol/L 450-001 0834/10/19 potassium, serum 3.5 mmol/L 3.5-5.2 chloride, serum [...] 1.41 ng/dL 0.76-1.46 cholesterol, serum 166 mg/dL 839-834 5190/04/20 triglyceride, serum, fasting 68 mg/dL 30-200 HDL cholesterol, serum 88 mg/dL 32-96 LDL cholesterol, serum 64 mg/dL 0-130 sodium, serum 132 mmol/L 149-409 7355/04/20 carbon dioxide, venous blood 31.3 mmol/L 21.0-32.0 [...] 5.0-8.5 Encounters Code Encounter Date Provider Facility CPT-89856 Level 4 Est. Patient 15:07:54 CDT Mariaa Whitman [facility] CPT-89087 Level 3 Est. Patient 20:45:54 RAILROAD OPERATING ENGINEER Mariaa Whitman [facility] [place][note 2] CPT-38919 Level 3 Est. Patient 12:16:16 CDT Ana Cristina Vallejo MD [facility] [place]-77452 Level 4 Est. Patient 12:49:21 CDT Ana Cristina Vallejo MD [facility]-21292 Level 4 Est. Patient 23:02:25 CDT Ana Cristina Vallejo MD [facility]-46868 Level 4 Est. Patient 19:26:33 RAILROAD OPERATING ENGINEER Ana Cristina Vallejo MD [facility]-51582 Level 4 Est. Patient 11:28:14 CDT Ana Cristina Vallejo MD [facility]-81714 Level 4 Est. Patient 15:35:46 RAILROAD OPERATING ENGINEER Ana Cristina Vallejo MD [facility] CPT-37534 Level 3 Est. Patient 21:06:39 RAILROAD OPERATING ENGINEER Alden Kim MD [facility]-53045 Level 4 Est. Patient 15:30:54 RAILROAD OPERATING ENGINEER Ana Cristina Vallejo MD [facility] Procedures Code Procedure Name Date Entry Date Standard Description CPT-G0438 Initial Annual Wellness Exam 14:54:07 CDT CPT-G0009 Administration of Pneumococcal Vaccine 14:44:24 CDT CPT-59167 Pneumovax 23 Injection Injectable 25 MCG/0.5ML 14:44:24 CDT CPT-38492 First Vx - Ix admin for Medicare patients 14:44:24 CDT CPT-87269 Fluzone High-Dose Intramuscular Suspension 14:44:20 CDT CPT-97090 BMP - LAB USE ONLY 12:38:06 CDT CPT-96092 Urine Culture - LAB USE ONLY 16:56:33 CDT CPT-TCMM Transitional Care Mgmt-Moderate 18:08:16 CDT CPT-79910 Bone Density 09:14:12 CDT CPT-000 Give Appropriate Flu Vaccine 14:51:52 CDT CPT-95212 Fluzone High Dose (>=65 yrs.) 15:19:23 CDT CPT-14179 Immunization Single Admin 15:19:23 CDT CPT-62532 Prevnar 13 15:40:03 CDT CPT-51688 Administration single or combination vaccine inc oral 15 :40:03 CDT CPT-17675 Prevnar 13 13:55:07 CDT CPT-G0008 Administration of Influenza Virus Vaccine 10:49:51 CDT CPT-25286 Fluzone High-Dose Intramuscular Suspension 10:49:51 CDT CPT-29717 Knee 3V 13:31:37 CDT CPT-26553 Bone Density 09:07:05 RAILROAD OPERATING ENGINEER CPT-09462 Nail Avulsion 09:46:05 CDT CPT-96353 Administration single or combination vaccine inc oral 16 :11:54 CDT CPT-48189 Influenza High Dose age 65+ 16:11:54 CDT CPT-16552 Administration single or combination vaccine inc oral 10 :53:15 CDT CPT-86290 Influenza High Dose age 65+ 10:53:15 CDT CPT-31957 Bone Density 14:50:58 RAILROAD OPERATING ENGINEER CPT-53858 Administration single or combination vaccine inc oral 15 :41:20 RAILROAD OPERATING ENGINEER CPT-83446 Zoster Vaccine (Zostavax) 15:41:20 RAILROAD OPERATING ENGINEER CPT-85413 Spec Collection and Handling Fee 11:18:25 RAILROAD OPERATING ENGINEER CPT-22615 Administration single or combination vaccine inc oral 11 :14:20 CDT CPT-99522 Influenza High Dose age 65+ 11:14:20 CDT
--- OUTSIDE RECORDS SUMMARY | 2017-07-18 08:05 | XMS REPORT ---
Author Author [facility] Medical Staff Organization [facility] Address [address] [place], [place] [id number] Phone [phone] Summary purpose CCDA Sent to [facility] Chief Complaint and Reason for Visit No authorized Reason for Visit (Admitting Diagnosis) is available for this visit. Problem list No authorized problems tracked for continuity of care are available for this visit. Encounters No authorized problems tracked for encounter diagnoses are available for this visit. Medications No medications recorded for this patient visit Allergies, adverse reactions, alerts No allergy information is available for this patient. Immunizations No immunizations recorded for this patient visit Relevant diagnostic tests and/or laboratory data No authorized results are available for this patient visit History of procedures Procedure Code Code Type Description Date Performed Performing Physician 75039 CPT-4 URINE CULTURE/COLONY COUNT 12-13-2016 LIU RAMAN 64819 CPT-4 CULTURE AEROBIC IDENTIFY 12-13-2016 LIU RAMAN 83511 CPT-4 MICROBE SUSCEPTIBLE, ISIDRA 12-13-2016 LIU RAMAN Functional status No functional or cognitive status observations are available for this visit. Vital signs No authorized vital signs are available for this visit. Social history No Social History or smoking status observations were recorded for this visit. ( Unknown if ever smoked.) Treatment Plan No treatment plan text is available for this visit. Hospital discharge instructions No discharge instruction text is available for this visit.
--- OUTSIDE RECORDS SUMMARY | 2017-07-18 08:05 | XMS REPORT | Clinical Summary ---
Author Author Admin, HUYENE Organization [facility] Address Unknown Phone Unavailable Allergies, Adverse Reactions, Alerts Allergy Name Reaction Description Start Date Severity Status Provider No Known Allergies Paula Cash RMA Conditions or Problems Problem Name Problem Code Onset Date Status Entry Date Provider Comment Standard Description Annotate ROUTINE GYNECOLOGICAL EXAMINATION V72.31 Resolved Ana Cristina Vallejo MD PhD Routine gynecological examination MENOPAUSE 627.2 Ruled out Ana Cristina Vallejo MD PhD Symptomatic menopausal or female climacteric states MENOPAUSE 627.2 Active Brianda Reis RMA Symptomatic menopausal or female climacteric states DIVERTICULOSIS, [...] Generic Name NDC Status Provider Patient Instruction ALENDRONATE SODIUM 70 MG TABS 1 pill by mouth weekly for osteoporosis ALENDRONATE SODIUM 26096085718 Active Brianda Reis [facility] Active E-1000 1000 UNIT ORAL CAPS Take one by mouth daily VITAMIN E 10004898536 Active Brianda KNOTT Active OSCAL 500/200 D-3 500-200 MG-UNIT ORAL TABS Take one by mouth 3 times daily, morning, afternoon and evening.] CALCIUM CARBONATE-VITAMIN D 91624971653 Active Brianda KNOTT Active ASPIRIN 81 MG CHEW TAB 1 tablet by mouth daily ASPIRIN 69463610147 Active Brianda RICK Active ADULT ASPIRIN EC LOW STRENGTH 81 MG TBEC TAKE 1 TAB DAILY ASPIRIN 00730916379 No Longer Active Mariaa Whitman APRN Active ALENDRONATE SODIUM 70 MG TABS TAKE 1 TAB ONCE A WEEK ALENDRONATE SODIUM 67952395917 No Longer Active Mariaa Whitman APRN Active FLONASE ALLERGY RELIEF 50 MCG/ACT NASAL SUSP One spray each nostril daily for allergies FLUTICASONE PROPIONATE 18898763619 Active Mariaa Whitman APRN Active CETIRIZINE HCL 10 MG ORAL TABS 1 po qd PRN Allergies CETIRIZINE HCL 96279081180 Active Mariaa Whitman APRN Active BACTRIM DS 800-160 MG TABS 1 pill by mouth twice daily, for UTI SULFAMETHOXAZOLE-TRIMETHOPRIM 23211896245 No Longer Active Ana Cristina Vallejo MD PhD Active HYDROCHLOROTHIAZIDE 12.5 MG CAPS 1 pill by mouth daily, for blood pressure HYDROCHLOROTHIAZIDE 45422685142 Active Mariaa Whitman APRN Active CARVEDILOL 25 MG TABS 1 pill by mouth twice daily for blood pressure CARVEDILOL 77546126956 Active Mariaa Whitman APRN Active SYNTHROID 0.088 MG TAB 1 tablet by mouth daily for thyroid LEVOTHYROXINE SODIUM 63227134099 Active Mariaa Whitman APRN Active AMOXICILLIN 500 MG CAP 1 tab by mouth 3 times daily AMOXICILLIN 33196742454 No Longer Active Alden Kim MD Active [facility]S VITAMIN D3 1000 UNIT CAPS TAKE 2 CAP DAILY CHOLECALCIFEROL Active Ana Cristina Vallejo MD PhD Active CALCIUM 500 MG TABS TAKE 3 TABS DAILY CALCIUM 78551652135 No Longer Active Mariaa Whitman FUR REPAIR INSPECTOR Active MULTIVITAMINS TABS TAKE 1 TAB DAILY MULTIPLE VITAMIN Active Aneta Tavarezum RESTAURANT HOURLY TEAM MEMBER Active BENADRYL ALLERGY 25 MG TABS NEEDED DIPHENHYDRAMINE HCL 15526008713 Active Aneta Tavarezum RESTAURANT HOURLY TEAM MEMBER Active TYLENOL 325 MG TABS NEEDED ACETAMINOPHEN 37818663835 Active Aneta Tavarezum RESTAURANT HOURLY TEAM MEMBER Active ADVIL 200 MG TABS TAKE NEEDED IBUPROFEN 30500137752 Active Aneta Tavarezum RESTAURANT HOURLY TEAM MEMBER Active GLUCOSAMINE-CHONDROITIN 500-400 MG TABS TAKE 1 TAB DAILY GLUCOSAMINE-CHONDROITIN 89580758249 Active Mariaa Whitman FUR REPAIR INSPECTOR Active NORVASC 10 MG TABS TAKE 1 TAB DAILY AMLODIPINE BESYLATE 51456994826 Active Mariaa Atkinsonum FUR REPAIR INSPECTOR Active BENAZEPRIL HCL 40 MG TABS 1 PO BID BENAZEPRIL HCL 52768706663 Active Mariaa Whitman FUR REPAIR INSPECTOR Active LOVASTATIN 20 MG TABS 1 PO Q HS FOR CHOLESTEROL LOVASTATIN 04649539732 Active Mariaa Whitman FUR REPAIR INSPECTOR Active RANITIDINE HCL 150 MG CAPS 1 PO Q 12 HRS RANITIDINE HCL 80992273538 Active Mariaa Whitman FUR REPAIR INSPECTOR Active ALENDRONATE SODIUM 70 MG TABS TAKE 1 TAB ONCE A WEEK ALENDRONATE SODIUM 70 MG TABS 553733 ALENDRONATE SODIUM Inactive ADULT ASPIRIN EC LOW STRENGTH 81 MG TBEC TAKE 1 TAB DAILY ADULT ASPIRIN EC LOW STRENGTH 81 MG TBEC 422833 ASPIRIN Inactive AMOXICILLIN 500 MG CAP 1 tab by mouth 3 times daily AMOXICILLIN 500 MG CAP 401607 AMOXICILLIN Inactive BACTRIM DS 800-160 MG TABS 1 pill by mouth twice daily, for UTI BACTRIM DS 800-160 MG TABS 833238 SULFAMETHOXAZOLE-TRIMETHOPRIM Inactive Advance Directives Directive Description Start [...] Range Description blood pressure, diastolic - 8462-4 67 mm[Hg] [...] 1.41 ng/dL 0.76-1.46 cholesterol, serum 166 mg/dL 701-197 0951/04/20 triglyceride, serum, fasting 68 mg/dL 30-200 HDL cholesterol, serum 88 mg/dL 32-96 LDL cholesterol, serum 64 mg/dL 0-130 sodium, serum 132 mmol/L 243-989 0269/04/20 carbon dioxide, venous blood 31.3 mmol/L 21.0-32.0 [...] 11.6-14.8 platelet count 312 10^3/MM^3 10*3/mm3 142-424 Encounters Code Encounter Date Provider Facility CPT-79379 Level 4 Est. Patient 15:07:54 CDT Mariaa Whitman [facility] CPT-06044 Level 3 Est. Patient 20:45:54 SENIOR SALES ASSOCIATE Mariaa Whitman FUR REPAIR INSPECTOR [facility] CPT-03807 Level 3 Est. Patient 12:16:16 CDT Ana Cristina Vallejo MD [facility] CPT-16091 Level 4 Est. Patient 12:49:21 CDT Ana Cristina Vallejo MD [facility] CPT-60030 Level 4 Est. Patient 23:02:25 CDT Ana Cristina Vallejo MD [facility] CPT-19431 Level 4 Est. Patient 19:26:33 SENIOR SALES ASSOCIATE Ana Cristina Vallejo MD [facility] CPT-48579 Level 4 Est. Patient 11:28:14 CDT Ana Cristina Vallejo MD [facility] CPT-41306 Level 4 Est. Patient 15:35:46 SENIOR SALES ASSOCIATE Ana Cristina Vallejo MD [facility] CPT-21991 Level 3 Est. Patient 21:06:39 SENIOR SALES ASSOCIATE Alden Kim MD [facility] CPT-69849 Level 4 Est. Patient 15:30:54 SENIOR SALES ASSOCIATE Ana Cristina Vallejo MD [facility] Procedures Code Procedure Name Date Entry Date Standard Description CPT-TCMM Transitional Care Mgmt-Moderate 18:08:16 CDT CPT-52709 Bone Density 09:14:12 CDT CPT-000 Give Appropriate Flu Vaccine 14:51:52 CDT CPT-03267 Fluzone High Dose (>=65 yrs.) 15:19:23 CDT CPT-55192 Immunization Single Admin 15:19:23 CDT CPT-55772 Prevnar 15:40:03 CDT CPT-99128 Administration single or combination vaccine inc oral 15 :40:03 CDT CPT-89114 Prevnar 13 13:55:07 CDT CPT-G0008 Administration of Influenza Virus Vaccine 10:49:51 CDT CPT-78232 Fluzone High-Dose Intramuscular Suspension 10:49:51 CDT CPT-50233 Knee 3V 13:31:37 CDT CPT-83030 Bone Density 09:07:05 SENIOR SALES ASSOCIATE CPT-84515 Nail Avulsion 09:46:05 CDT CPT-90657 Administration single or combination vaccine inc oral 16 :11:54 CDT CPT-21392 Influenza High Dose age 65+ 16:11:54 CDT CPT-04693 Administration single or combination vaccine inc oral 10 :53:15 CDT CPT-03510 Influenza High Dose age 65+ 10:53:15 CDT CPT-90506 Bone Density 14:50:58 SENIOR SALES ASSOCIATE CPT-16893 Administration single or combination vaccine inc oral 15 :41:20 SENIOR SALES ASSOCIATE CPT-64274 Zoster Vaccine (Zostavax) 15:41:20 SENIOR SALES ASSOCIATE CPT-56861 Spec Collection and Handling Fee 11:18:25 SENIOR SALES ASSOCIATE CPT-07047 Administration single or combination vaccine inc oral 11 :14:20 CDT CPT-02594 Influenza High Dose age 65+ 11:14:20 CDT
--- OUTSIDE RECORDS SUMMARY | 2017-07-18 08:05 | XMS REPORT | Clinical Summary ---
Author Author Admin, DANDRE Organization [facility] [place] Address Unknown Phone Unavailable Allergies, Adverse Reactions, Alerts Allergy Name Reaction Description Start Date Severity Status Provider NKDA Critical Active Mariaa Whitman MOTION STUDY ENGINEER Conditions or Problems Problem Name Problem Code Onset Date Status Entry Date Provider Comment Standard Description Annotate ROUTINE GYNECOLOGICAL EXAMINATION V72.31 Resolved Ana Cristina Vallejo MD PhD Routine gynecological examination MENOPAUSE 627.2 Ruled out Ana Cristina Valeljo MD PhD Symptomatic menopausal or female climacteric states MENOPAUSE 627.2 Active Brianda Reis [facility] Symptomatic menopausal or female climacteric states DIVERTICULOSIS, [...] 1 daily for blood pressure BENAZEPRIL HCL 78382471282 Active Jalil Hayes MD Active HYDROCHLOROTHIAZIDE 12.5 MG CAPS 1 pill by mouth daily, for blood pressure HYDROCHLOROTHIAZIDE 79965937944 No Longer Active Jalil Hayes MD Active AUGMENTIN 875-125 MG TAB 1 po BID x 7 days AMOXICILLIN-POT CLAVULANATE 95223822224 No Longer Active Jalil Hayes MD Active OMEPRAZOLE 40 MG CPDR 1 po q a.m. OMEPRAZOLE 21601973060 Active Peggy Pardo LPN Active MIRALAX ORAL PACK Takes daily prn POLYETHYLENE GLYCOL 3350 34280016170 No Longer Active Peggy Pardo LPN Active FLONASE ALLERGY RELIEF 50 MCG/ACT NASAL SUSP One spray each nostril daily for allergies FLUTICASONE PROPIONATE 83104492840 No Longer Active Peggy Pardo LPN Active BENADRYL ALLERGY 25 MG TABS NEEDED DIPHENHYDRAMINE HCL 84096816479 No Longer Active Peggy Pardo LPN Active ADVIL 200 MG TABS TAKE NEEDED IBUPROFEN 87258905342 No Longer Active Peggy Edvin, CANDY BUTCHER Active COLACE 100 MG CAP 1 po BID PRN Constipation DOCUSATE SODIUM 80577775017 No Longer Active Deeptitayler Junior LPN Active ALPRAZOLAM 0.25 MG TAB 1/2-1 tablet by mouth twice a day as needed for stress ALPRAZOLAM 87919073476 No Longer Active Deepti Sandi ANGUIANON Active ALENDRONATE SODIUM 70 MG TABS 1 pill by mouth weekly for osteoporosis ALENDRONATE SODIUM 13595283477 Active Briandahelen Reis Robin Active E-1000 1000 UNIT ORAL CAPS Take one by mouth daily VITAMIN E 24144152883 Active Brianda Reis Robin Active OSCAL 500/200 D-3 500-200 MG-UNIT ORAL TABS Take one by mouth 3 times daily, morning, afternoon and evening.] CALCIUM CARBONATE-VITAMIN D 14217622368 Active Brianda KNOTT Active ASPIRIN 81 MG CHEW TAB 1 tablet by mouth daily ASPIRIN 82035220762 Active Brianda Reis Robin Active ADULT ASPIRIN EC LOW STRENGTH 81 MG TBEC TAKE 1 TAB DAILY ASPIRIN 85313500446 No Longer Active Mariaa Whitman MOTION STUDY ENGINEER Active ALENDRONATE SODIUM 70 MG TABS TAKE 1 TAB ONCE A WEEK ALENDRONATE SODIUM 76479943050 No Longer Active Mariaa Whitman MOTION STUDY ENGINEER Active CETIRIZINE HCL 10 MG ORAL TABS 1 po qd PRN Allergies CETIRIZINE HCL 52171698705 Active HEDY Esquivel Active BACTRIM DS 800-160 MG TABS 1 pill by mouth twice daily, for UTI SULFAMETHOXAZOLE-TRIMETHOPRIM 19481959096 No Longer Active Ana Cristina Vallejo MD PhD Active CARVEDILOL 25 MG TABS 1 pill by mouth twice daily for blood pressure CARVEDILOL 41316725092 Active HEDY Esquivel Active SYNTHROID 0.088 MG TAB 1 tablet by mouth daily for thyroid LEVOTHYROXINE SODIUM 85015729477 Active HEDY Esquivel Active AMOXICILLIN 500 MG CAP 1 tab by mouth 3 times daily AMOXICILLIN 22935723840 No Longer Active Alden Kim MD Active [facility] VITAMIN D3 1000 UNIT CAPS TAKE 2 CAP DAILY CHOLECALCIFEROL Active Ana Cristina Vallejo MD PhD Active CALCIUM 500 MG TABS TAKE 3 TABS DAILY CALCIUM 93189798136 No Longer Active Mariaa Whitman APRN Active MULTIVITAMINS TABS TAKE 1 TAB DAILY MULTIPLE VITAMIN Active Aneta D Leo CANDY BUTCHER Active TYLENOL 325 MG TABS NEEDED ACETAMINOPHEN 88794884675 Active Aneta Singh Leo CANDY BUTCHER Active GLUCOSAMINE-CHONDROITIN 500-400 MG TABS TAKE 1 TAB DAILY GLUCOSAMINE-CHONDROITIN 64701273889 Active Mariaa Whitman APRN Active NORVASC 10 MG TABS TAKE 1 TAB DAILY AMLODIPINE BESYLATE 01991514506 Active HEDY Esquivel Active LOVASTATIN 20 MG TABS 1 PO Q HS FOR CHOLESTEROL LOVASTATIN 34134338425 Active HEDY Esquivel Active RANITIDINE HCL 150 MG CAPS 1 PO Q 12 HRS RANITIDINE HCL 73770380469 Active HEDY Esquivel Active ALENDRONATE SODIUM 70 MG TABS TAKE 1 TAB ONCE A WEEK ALENDRONATE SODIUM 70 MG TABS 318590 ALENDRONATE SODIUM Inactive ADULT ASPIRIN EC LOW STRENGTH 81 MG TBEC TAKE 1 TAB DAILY ADULT ASPIRIN EC LOW STRENGTH 81 MG TBEC 967473 ASPIRIN Inactive ALPRAZOLAM 0.25 MG TAB 1/2-1 tablet by mouth twice a day as needed for stress ALPRAZOLAM 0.25 MG TAB 850824 ALPRAZOLAM Inactive COLACE 100 MG CAP 1 po BID PRN Constipation COLACE 100 MG CAP 5190650 DOCUSATE SODIUM Inactive ADVIL 200 MG TABS TAKE NEEDED ADVIL 200 MG TABS 623264 IBUPROFEN Inactive BENADRYL ALLERGY 25 MG TABS NEEDED BENADRYL ALLERGY 25 MG TABS 2380884 DIPHENHYDRAMINE HCL Inactive FLONASE ALLERGY RELIEF 50 MCG/ACT NASAL SUSP One spray each nostril daily for allergies FLONASE ALLERGY RELIEF 50 MCG/ACT NASAL SUSP 5129139 FLUTICASONE PROPIONATE Inactive MIRALAX ORAL PACK Takes daily prn MIRALAX ORAL PACK 004428 POLYETHYLENE GLYCOL 3350 Inactive AUGMENTIN 875-125 MG TAB 1 po BID x 7 days AUGMENTIN 875-125 MG TAB 269907 AMOXICILLIN-POT CLAVULANATE Inactive HYDROCHLOROTHIAZIDE 12.5 MG CAPS 1 pill by mouth daily, for blood pressure HYDROCHLOROTHIAZIDE 12.5 MG CAPS 622179 HYDROCHLOROTHIAZIDE Inactive AMOXICILLIN 500 MG CAP 1 tab by mouth 3 times daily AMOXICILLIN 500 MG CAP 218322 AMOXICILLIN Inactive BACTRIM DS 800-160 MG TABS 1 pill by mouth twice daily, for UTI BACTRIM DS 800-160 MG TABS 800427 SULFAMETHOXAZOLE-TRIMETHOPRIM Inactive Advance Directives Directive Description Start [...] Panel - Chemistry sodium, serum 130 mmol/L 001-096 1178/10/19 potassium, serum 3.5 mmol/L 3.5-5.2 chloride, serum 92 mmol/L 98-107 carbon dioxide, venous blood 33.6 mmol/L 21.0-32.0 blood glucose 118 mg/dL 65-110 calcium, serum 8.8 mg/dL 8.5-10.1 urea nitrogen, blood 11 mg/dL 7-18 creatinine, serum 1.12 mg/dL 0.55-1.30 Lab Report: CBC-QUEST, COMPREHENSIVE METABOLIC PANEL, LIPID PANEL, Micro ... - Chemistry cholesterol, serum 162 mg/dL 721-048 0534/05/01 HDL cholesterol, serum 68 mg/dL > OR=46 [...] % 11.0-15.0 platelet count 297 THOUSAND/UL 10*3/mm3 029-492 5961/05/01 mean platelet volume 8.9 fL 7.5-12.5 Lab [...] Negative Encounters Code Encounter Date Provider Facility CPT-26442 Level 3 Est. Patient 14:38:15 CDT Jalil Hayes MD [facility] CPT-18811 Level 4 Est. Patient 14:40:54 CDT Bee Rosas [facility] [place] CPT-09781 Level 4 Est. Patient 10:31:15 CDT Jalil Hayes MD [facility]-21065 Level 4 Est. Patient 15:07:54 CDT Mariaa Whitman [facility]-98517 Level 3 Est. Patient 20:45:54 CURING ROOM SUPERVISOR Mariaa Whitman [facility] CPT-75884 Level 3 Est. Patient 12:16:16 CDT Ana Cristina Vallejo MD [facility]-01750 Level 4 Est. Patient 12:49:21 CDT Ana Cristina Vallejo MD [facility] CPT-07711 Level 4 Est. Patient 23:02:25 CDT [facility] Level 4 Est. Patient 19:26:33 CURING ROOM SUPERVISOR Ana Cristina Vallejo MD PhD [facility] CPT-65530 Level 4 Est. Patient 11:28:14 CDT Ana Cristina Vallejo MD [facility] CPT-39667 Level 4 Est. Patient 15:35:46 CURING ROOM SUPERVISOR Ana Cristina Vallejo MD PhD [facility] CPT-49389 Level 3 Est. Patient 21:06:39 CURING ROOM SUPERVISOR Alden Kim MD [facility] CPT-18664 Level 4 Est. Patient 15:30:54 CURING ROOM SUPERVISOR Ana Cristina Vallejo MD [facility] Procedures Code Procedure Name Date Entry Date Standard Description CPT-TCMM Transitional Care Mgmt-Moderate 14:41:55 CDT CPT-66715 EKG Trac and Interp - XRAY USE ONLY 10:35:11 CDT 09/11 CPT-33494 Chest 2V Frontal and Lat - XRAY USE ONLY 10:35:11 CDT CPT-G0438 Initial Annual Wellness Exam 14:54:07 CDT CPT-G0009 Administration of Pneumococcal Vaccine 14:44:24 CDT CPT-92550 Pneumovax 23 Injection Injectable 25 MCG/0.5ML 14:44:24 CDT CPT-88694 First Vx - Ix admin for Medicare patients 14:44:24 CDT CPT-99103 Fluzone High-Dose Intramuscular Suspension 14:44:20 CDT CPT-78431 BMP - LAB USE ONLY 12:38:06 CDT CPT-47191 Urine Culture - LAB USE ONLY 16:56:33 CDT CPT-TCMM Transitional Care Mgmt-Moderate 18:08:16 CDT CPT-62917 Bone Density 09:14:12 CDT CPT-000 Give Appropriate Flu Vaccine 14:51:52 CDT CPT-40357 Fluzone High Dose (>=65 yrs.) 15:19:23 CDT CPT-25475 Immunization Single Admin 15:19:23 CDT CPT-22037 Prevnar 13 15:40:03 CDT CPT-72642 Administration single or combination vaccine inc oral 15 :40:03 CDT CPT-70558 Prevnar 13 13:55:07 CDT CPT-G0008 Administration of Influenza Virus Vaccine 10:49:51 CDT CPT-62333 Fluzone High-Dose Intramuscular Suspension 10:49:51 CDT CPT-37293 Knee 3V 13:31:37 CDT CPT-60455 Bone Density 09:07:05 CURING ROOM SUPERVISOR CPT-88908 Nail Avulsion 09:46:05 CDT CPT-68136 Administration single or combination vaccine inc oral 16 :11:54 CDT CPT-29288 Influenza High Dose age 65+ 16:11:54 CDT CPT-12074 Administration single or combination vaccine inc oral 10 :53:15 CDT CPT-06804 Influenza High Dose age 65+ 10:53:15 CDT CPT-06888 Bone Density 14:50:58 CURING ROOM SUPERVISOR CPT-94180 Administration single or combination vaccine inc oral 15 :41:20 CURING ROOM SUPERVISOR CPT-74050 Zoster Vaccine (Zostavax) 15:41:20 CURING ROOM SUPERVISOR CPT-23429 Spec Collection and Handling Fee 11:18:25 CURING ROOM SUPERVISOR CPT-13944 Administration single or combination vaccine inc oral 11 :14:20 CDT CPT-33528 Influenza High Dose age 65+ 11:14:20 CDT
--- OUTSIDE RECORDS SUMMARY | 2017-07-18 08:06 | XMS REPORT | Clinical Summary ---
Author Author Admin, DANDRE Organization [facility] Address Unknown Phone Unavailable Allergies, Adverse [...] PhD Sciatica Urinary bladder pain 788.99 Active Le Eann Radha Other symptoms involving urinary system UTI [...] by mouth twice daily, for UTI SULFAMETHOXAZOLE-TRIMETHOPRIM 60281156226 No Longer Active Ana Cristina Vallejo MD PhD Active HYDROCHLOROTHIAZIDE 12.5 MG CAPS 1 pill by mouth daily, for blood pressure HYDROCHLOROTHIAZIDE 49605821849 Active Mariaadomenico Whitman APRN Active CARVEDILOL 25 MG TABS 1 pill by mouth twice daily for blood pressure CARVEDILOL 50962033389 Active Mariaa Yokum [employer] LOOM Active SYNTHROID 0.088 MG TAB 1 tablet by mouth daily for thyroid LEVOTHYROXINE SODIUM 38403020125 Active Mariaa Laudee [employer] LOOM Active AMOXICILLIN 500 MG CAP 1 tab by mouth 3 times daily AMOXICILLIN 69170267340 No Longer Active Alden Kim MD Active [facility]S VITAMIN D3 1000 UNIT CAPS TAKE 2 CAP DAILY CHOLECALCIFEROL 40515366739 Active Ana Cristina Vallejo MD PhD Active CALCIUM 500 MG TABS TAKE 3 TABS DAILY CALCIUM 53379871316 Active Aneta Samantha Leo SUPERVISOR PUBLIC MESSAGE SERVICE Active MULTIVITAMINS TABS TAKE 1 TAB DAILY MULTIPLE VITAMIN 29749060180 Active Aneta Tavarezum SUPERVISOR PUBLIC MESSAGE SERVICE Active BENADRYL ALLERGY 25 MG TABS NEEDED DIPHENHYDRAMINE HCL 28305856405 Active Aneta Singh Leo SUPERVISOR PUBLIC MESSAGE SERVICE Active TYLENOL 325 MG TABS NEEDED ACETAMINOPHEN 07151566443 Active Aneta Tavarezum SUPERVISOR PUBLIC MESSAGE SERVICE Active ADVIL 200 MG TABS TAKE NEEDED IBUPROFEN 79030916194 Active Aneta D Leo SUPERVISOR PUBLIC MESSAGE SERVICE Active ADULT ASPIRIN EC LOW STRENGTH 81 MG TBEC TAKE 1 TAB DAILY ASPIRIN 08953857225 Active Aneta Tavarezum SUPERVISOR PUBLIC MESSAGE SERVICE Active VITAMIN E NATURAL 400 UNIT CAPS TAKE 1 CAP DAILY VITAMIN E 84002924748 Active Aneta Tavarezum SUPERVISOR PUBLIC MESSAGE SERVICE Active GLUCOSAMINE-CHONDROITIN 500-400 MG TABS TAKE 1 TAB DAILY GLUCOSAMINE-CHONDROITIN 23059464749 Active Aneta Tavarezum SUPERVISOR PUBLIC MESSAGE SERVICE Active NORVASC 10 MG TABS TAKE 1 TAB DAILY AMLODIPINE BESYLATE 84847860647 Active Mariaa Whitman APRN Active BENAZEPRIL HCL 40 MG TABS 1 PO BID BENAZEPRIL HCL 24429838078 Active HEDY Esquivel Active LOVASTATIN 20 MG TABS 1 PO Q HS FOR CHOLESTEROL LOVASTATIN 28602488816 Active Mariaa Whitman APRN Active RANITIDINE HCL 150 MG CAPS 1 PO Q 12 HRS RANITIDINE HCL 09700875455 Active Mariaa Whitman APRN Active ALENDRONATE SODIUM 70 MG TABS TAKE 1 TAB ONCE A WEEK ALENDRONATE SODIUM 15432185592 Active Mariaa Whitman APRN Active AMOXICILLIN 500 MG CAP 1 tab by mouth 3 times daily AMOXICILLIN 500 MG CAP 087508 AMOXICILLIN Inactive BACTRIM DS 800-160 MG TABS 1 pill by mouth twice daily, for UTI BACTRIM DS 800-160 MG TABS 877483 SULFAMETHOXAZOLE-TRIMETHOPRIM Inactive Immunizations Vaccine Administration Date Value [...] Panel - Chemistry sodium, serum 136 mmol/L 083-107 0982/03/24 potassium, serum 4.3 mmol/L 3.5-5.2 chloride, serum [...] 5.0-8.5 Encounters Code Encounter Date Provider Facility CPT-33423 Level 3 Est. Patient 20:45:54 BLACK PULLER Mariaa Whitman APRN [facility] CPT-82547 Level 3 Est. Patient 12:16:16 CDT Ana Cristina Vallejo MD [facility] CPT-45632 Level 4 Est. Patient 12:49:21 CDT Ana Cristina Vallejo MD PhD [facility] CPT-66290 Level 4 Est. Patient 23:02:25 CDT Ana Cristina Vallejo MD [facility]66461 Level 4 Est. Patient 19:26:33 BLACK PULLER Ana Cristina Vallejo MD PhD [facility]-95913 Level 4 Est. Patient 11:28:14 CDT Ana Cristina Vallejo MD PhD [facility] CPT-01922 Level 4 Est. Patient 15:35:46 BLACK PULLER Ana Cristina Vallejo MD PhD [facility] CPT-03306 Level 3 Est. Patient 21:06:39 BLACK PULLER Alden Kim MD [facility] CPT-53114 Level 4 Est. Patient 15:30:54 BLACK PULLER Ana Cristina Vallejo MD PhD [facility] Procedures Code Procedure Name Date Entry Date Standard Description CPT-000 Give Appropriate Flu Vaccine 14:51:52 CDT CPT-20297 Fluzone High Dose (>=65 yrs.) 15:19:23 CDT CPT-18006 Immunization Single Admin 15:19:23 CDT CPT-96555 Prevnar 13 15:40:03 CDT CPT-47101 Administration single or combination vaccine inc oral 15 :40:03 CDT CPT-81345 Prevnar 13 13:55:07 CDT CPT-G0008 Administration of Influenza Virus Vaccine 10:49:51 CDT CPT-26290 Fluzone High-Dose Intramuscular Suspension 10:49:51 CDT CPT-29916 Knee 3V 13:31:37 CDT CPT-55928 Bone Density 09:07:05 BLACK PULLER CPT-63216 Nail Avulsion 09:46:05 CDT CPT-74611 Administration single or combination vaccine inc oral 16 :11:54 CDT CPT-69967 Influenza High Dose age 65+ 16:11:54 CDT CPT-24208 Administration single or combination vaccine inc oral 10 :53:15 CDT CPT-52077 Influenza High Dose age 65+ 10:53:15 CDT CPT-11627 Bone Density 14:50:58 BLACK PULLER CPT-80180 Administration single or combination vaccine inc oral 15 :41:20 BLACK PULLER CPT-77305 Zoster Vaccine (Zostavax) 15:41:20 BLACK PULLER CPT-64156 Spec Collection and Handling Fee 11:18:25 BLACK PULLER CPT-36452 Administration single or combination vaccine inc oral 11 :14:20 CDT CPT-49193 Influenza High Dose age 65+ 11:14:20 CDT
--- OUTSIDE RECORDS SUMMARY | 2017-07-18 08:06 | XMS REPORT | Clinical Summary ---
Author Author Admin, DANDRE Organization [facility] Address Unknown Phone Unavailable Allergies, Adverse Reactions, Alerts Allergy Name Reaction Description Start Date Severity Status Provider NKDA Critical Active Mariaa Whitman INDEXER Conditions or Problems Problem Name Problem Code Onset Date Status Entry Date Provider Comment Standard Description Annotate ROUTINE GYNECOLOGICAL EXAMINATION V72.31 Resolved Ana Cristina Vallejo MD PhD Routine gynecological examination MENOPAUSE 627.2 Ruled out Ana Cristina Vallejo MD PhD Symptomatic menopausal or female climacteric states MENOPAUSE 627.2 Active Brianda Reis [facility] Symptomatic menopausal or female climacteric states DIVERTICULOSIS, [...] MD Heart disease, unspecified Dysuria 788.1 Active Idalai Ace LPN Dysuria Forgetfulness 780.99 Active Radha [...] 1 daily, for vitamin D deficiency CHOLECALCIFEROL 09003398919 No Longer Active Radha Jones APRN Active CIPRO 250 MG ORAL TABLET 1 tab BID for 7 days CIPROFLOXACIN HCL 73955803829 No Longer Active Radha Jones APRN Active VITAMIN D3 2000 UNIT ORAL CAPSULE 1 capsule po daily CHOLECALCIFEROL 98205503878 Active Anetajeannie Bailey LPN Active EQL ONE DAILY WOMENS ORAL TABLET 1 po daily MULTIPLE VITAMINS- CALCIUM 43613254036 Active Aneta Bailey PAINTER ASSISTANT Active MACROBID 100 MG ORAL CAPSULE 1 tab BID for 5 days NITROFURANTOIN MONOHYD MACRO 36602950699 No Longer Active Deepti Junior LPN Active HYDROCHLOROTHIAZIDE 12.5 MG ORAL CAPSULE 1 pill by mouth daily HYDROCHLOROTHIAZIDE 25247902008 Active Jalil Hayes MD Active RANITIDINE HCL 150 MG ORAL CAPSULE once nightly RANITIDINE HCL 70071671050 Active Jalil Hayes MD Active BENAZEPRIL HCL 40 MG ORAL TABLET 1 daily for blood pressure BENAZEPRIL HCL 04717759605 Active Jalil Hayes MD Active HYDROCHLOROTHIAZIDE 12.5 MG ORAL CAPSULE 1 pill by mouth daily, for blood pressure HYDROCHLOROTHIAZIDE 31037969842 No Longer Active Jalil Hayes MD Active AUGMENTIN 875-125 MG ORAL TABLET 1 po BID x 7 days AMOXICILLIN-POT CLAVULANATE 71123292432 No Longer Active Jalil Hayes MD Active OMEPRAZOLE 40 MG ORAL CAPSULE DELAYED RELEASE 1 po q a.m. OMEPRAZOLE 18168170338 Active HEDY Esquivel Active MIRALAX ORAL PACKET Takes daily prn POLYETHYLENE GLYCOL 3350 92994647318 No Longer Active Peggy Pardo LPN Active FLONASE ALLERGY RELIEF 50 MCG/ACT NASAL SUSPENSION One spray each nostril daily for allergies FLUTICASONE PROPIONATE 87602848354 No Longer Active Peggy Pardo LPN Active BENADRYL ALLERGY 25 MG ORAL TABLET NEEDED DIPHENHYDRAMINE HCL 69853320180 No Longer Active Peggy Pardo LPN Active ADVIL 200 MG ORAL TABLET TAKE NEEDED IBUPROFEN 88835536868 No Longer Active Peggy Pardo LPN Active COLACE 100 MG ORAL CAPSULE 1 po BID PRN Constipation DOCUSATE SODIUM 05860208107 No Longer Active Deepti Junior PAINTER ASSISTANT Active ALPRAZOLAM 0.25 MG ORAL TABLET 1/2-1 tablet by mouth twice a day as needed for stress ALPRAZOLAM 90760494349 No Longer Active Deepti Junior YULIET Active ALENDRONATE SODIUM 70 MG ORAL TABLET 1 pill by mouth weekly for osteoporosis ALENDRONATE SODIUM 82214479169 Active Mariaadomenico Whitman APRN Active E-1000 1000 UNIT ORAL CAPSULE Take one by mouth daily VITAMIN E 20088072373 Active Aneta Bailey LPN Active OSCAL 500/200 D-3 500-200 MG-UNIT ORAL TABLET Take one by mouth 3 times daily , morning, afternoon and evening.] CALCIUM CARBONATE-VITAMIN D 81386289130 Active Aneta Bailey LPN Active ASPIRIN 81 MG ORAL TABLET CHEWABLE 1 tablet by mouth daily ASPIRIN 00825445100 Active Aneta Bailey LPN Active ADULT ASPIRIN EC LOW STRENGTH 81 MG ORAL TABLET DELAYED RELEASE TAKE 1 TAB DAILY ASPIRIN 99361666618 No Longer Active Mariaa Laudee LUGO Active ALENDRONATE SODIUM 70 MG ORAL TABLET TAKE 1 TAB ONCE A WEEK 01/20 ALENDRONATE SODIUM 23168463792 No Longer Active Mariaa Laudee LUGO Active CETIRIZINE HCL 10 MG ORAL TABLET 1 po qd PRN Allergies CETIRIZINE HCL 91479409400 Active HEDY Esquivel Active BACTRIM DS 800-160 MG ORAL TABLET 1 pill by mouth twice daily, for UTI 01/29 SULFAMETHOXAZOLE-TRIMETHOPRIM 03027207467 No Longer Active Ana Cristina Vallejo MD PhD Active CARVEDILOL 25 MG ORAL TABLET 1 pill by mouth twice daily for blood pressure CARVEDILOL 62067295168 Active Aneta Bailey LPN Active SYNTHROID 88 MCG ORAL TABLET 1 tablet by mouth daily for thyroid LEVOTHYROXINE SODIUM 07974680530 Active HEDY Esquivel Active AMOXICILLIN 500 MG ORAL CAPSULE 1 tab by mouth 3 times daily 2011 AMOXICILLIN 50845477574 No Longer Active Alden Kim MD Active CALCIUM 500 MG ORAL TABLET TAKE 3 TABS DAILY CALCIUM 72290497427 No Longer Active Mariaa Whitman PARISH Active MULTIVITAMINS TABS TAKE 1 TAB DAILY MULTIPLE VITAMIN No Longer Active Aneta Tavarezum PAINTER ASSISTANT Active TYLENOL 325 MG ORAL TABLET NEEDED ACETAMINOPHEN 92445102161 Active Aneta Tavarezum PAINTER ASSISTANT Active GLUCOSAMINE-CHONDROITIN 500-400 MG ORAL TABLET TAKE 1 TAB DAILY GLUCOSAMINE-CHONDROITIN 00359178167 Active Aneta Tavarezum PAINTER ASSISTANT Active NORVASC 10 MG ORAL TABLET TAKE 1 TAB DAILY AMLODIPINE BESYLATE 72617923291 Active Aneta Tavarezum PAINTER ASSISTANT Active LOVASTATIN 20 MG ORAL TABLET 1 PO Q HS FOR CHOLESTEROL LOVASTATIN 71675571198 Active HEDY Esquivel Active ALENDRONATE SODIUM 70 MG ORAL TABLET TAKE 1 TAB ONCE A WEEK 01/20 ALENDRONATE SODIUM 70 MG ORAL TABLET 348891 ALENDRONATE SODIUM Inactive ADULT ASPIRIN EC LOW STRENGTH 81 MG ORAL TABLET DELAYED RELEASE TAKE 1 TAB DAILY ADULT ASPIRIN EC LOW STRENGTH 81 MG ORAL TABLET DELAYED RELEASE 839820 ASPIRIN Inactive ALPRAZOLAM 0.25 MG ORAL TABLET 1/2-1 tablet by mouth twice a day as needed for stress ALPRAZOLAM 0.25 MG ORAL TABLET 596531 ALPRAZOLAM Inactive COLACE 100 MG ORAL CAPSULE 1 po BID PRN Constipation COLACE 100 MG ORAL CAPSULE 0314687 DOCUSATE SODIUM Inactive ADVIL 200 MG ORAL TABLET TAKE NEEDED ADVIL 200 MG ORAL TABLET 587303 IBUPROFEN Inactive BENADRYL ALLERGY 25 MG ORAL TABLET NEEDED BENADRYL ALLERGY 25 MG ORAL TABLET 6010070 DIPHENHYDRAMINE HCL Inactive FLONASE ALLERGY RELIEF 50 MCG/ACT NASAL SUSPENSION One spray each nostril daily for allergies FLONASE ALLERGY RELIEF 50 MCG/ACT NASAL SUSPENSION 6208260 FLUTICASONE PROPIONATE Inactive MIRALAX ORAL PACKET Takes daily prn MIRALAX ORAL PACKET 494821 POLYETHYLENE GLYCOL 3350 Inactive AUGMENTIN 875-125 MG ORAL TABLET 1 po BID x 7 days AUGMENTIN 875-125 MG ORAL TABLET 454217 AMOXICILLIN-POT CLAVULANATE Inactive HYDROCHLOROTHIAZIDE 12.5 MG ORAL CAPSULE 1 pill by mouth daily, for blood pressure HYDROCHLOROTHIAZIDE 12.5 MG ORAL CAPSULE HYDROCHLOROTHIAZIDE Inactive CIPRO 250 MG ORAL TABLET 1 tab BID for 7 days CIPRO 250 MG ORAL TABLET 764355 CIPROFLOXACIN HCL Inactive VITAMIN D3 2000 UNIT ORAL TABLET 1 daily, for vitamin D deficiency VITAMIN D3 2000 UNIT ORAL TABLET CHOLECALCIFEROL Inactive AMOXICILLIN 500 MG ORAL CAPSULE 1 tab by mouth 3 times daily 2011 AMOXICILLIN 500 MG ORAL CAPSULE 008938 AMOXICILLIN Inactive BACTRIM DS 800-160 MG ORAL TABLET 1 pill by mouth twice daily, for UTI 01/29 BACTRIM DS 800-160 MG ORAL TABLET 727624 SULFAMETHOXAZOLE- TRIMETHOPRIM Inactive MACROBID 100 MG ORAL CAPSULE 1 tab BID for 5 days MACROBID 100 MG ORAL CAPSULE 8322849 NITROFURANTOIN MONOHYD MACRO Inactive Advance Directives Directive [...] Panel - Chemistry sodium, serum 132 mmol/L 429-294 4512/08/09 potassium, serum 4.2 mmol/L 3.5-5.2 chloride, serum 99 mmol/L 98-107 carbon dioxide, venous blood 24.7 mmol/L 21.0-32.0 blood glucose 119 mg/dL 65-110 calcium, serum 8.5 mg/dL 8.5-10.1 urea nitrogen, blood 14 mg/dL 7-18 creatinine, serum 1.16 mg/dL 0.60-1.30 Lab Report: CBC-QUEST, COMPREHENSIVE METABOLIC PANEL, LIPID PANEL, Micro ... - Chemistry cholesterol, serum 162 mg/dL 159-050 8040/05/01 HDL cholesterol, serum 68 mg/dL > OR=46 [...] % 11.0-15.0 platelet count 297 THOUSAND/UL 10*3/mm3 987-789 1086/05/01 mean platelet volume 8.9 fL 7.5-12.5 Lab [...] 5.0-8.5 Encounters Code Encounter Date Provider Facility [facility]-[id number] Level 3 Est. Patient 13:55:49 CDT Jalil Hayes MD [facility]14474 Level 3 Est. Patient 14:38:15 CDT Jalil Hayes MD [facility]87430 Level 4 Est. Patient 14:40:54 CDT Bee Rosas [facility]-92223 Level 4 Est. Patient 10:31:15 CDT Jalil Hayes MD [facility]37250 Level 4 Est. Patient 15:07:54 CDT Mariaa Whitman [facility]25266 Level 3 Est. Patient 20:45:54 ASSOCIATE PROFESSOR OF COUNSELING Mariaa Whitman [facility]-68473 Level 3 Est. Patient 12:16:16 CDT Ana Cristina Vallejo MD [facility]04946 Level 4 Est. Patient 12:49:21 CDT Ana Cristina Vallejo MD [facility]68017 Level 4 Est. Patient 23:02:25 CDT Ana Cristina Vallejo MD [facility]99482 Level 4 Est. Patient 19:26:33 ASSOCIATE PROFESSOR OF COUNSELING Ana Cristina Vallejo MD PhD [facility] CPT-90394 Level 4 Est. Patient 11:28:14 CDT Ana Cristina Vallejo MD PhD [facility] CPT-26575 Level 4 Est. Patient 15:35:46 ASSOCIATE PROFESSOR OF COUNSELING Ana Cristina Vallejo MD PhD [facility] CPT-90645 Level 3 Est. Patient 21:06:39 ASSOCIATE PROFESSOR OF COUNSELING Alden Kim MD [facility] CPT-87781 Level 4 Est. Patient 15:30:54 ASSOCIATE PROFESSOR OF COUNSELING Ana Cristina Vallejo MD PhD [facility] Procedures Code Procedure Name Date Entry Date Standard Description CPT-G0439 Subsequent Annual Wellness Exam 11:53:01 ASSOCIATE PROFESSOR OF COUNSELING CPT-86765 First Vx - Ix admin for Medicare patients 13:35:01 CDT CPT-98418 Fluzone High-Dose Intramuscular Suspension 13:35:01 CDT CPT-TCMM Transitional Care Mgmt-Moderate 14:41:55 CDT CPT-54395 EKG Trac and Interp - XRAY USE ONLY 10:35:11 CDT 09/11 CPT-09148 Chest 2V Frontal and Lat - XRAY USE ONLY 10:35:11 CDT CPT-G0438 Initial Annual Wellness Exam 14:54:07 CDT CPT-G0009 Administration of Pneumococcal Vaccine 14:44:24 CDT CPT-26343 Pneumovax 23 Injection Injectable 25 MCG/0.5ML 14:44:24 CDT CPT-96037 First Vx - Ix admin for Medicare patients 14:44:24 CDT CPT-23740 Fluzone High-Dose Intramuscular Suspension 14:44:20 CDT CPT-52079 BMP - LAB USE ONLY 12:38:06 CDT CPT-41828 Urine Culture - LAB USE ONLY 16:56:33 CDT CPT-TCMM Transitional Care Mgmt-Moderate 18:08:16 CDT CPT-05889 Bone Density 09:14:12 CDT CPT-000 Give Appropriate Flu Vaccine 14:51:52 CDT CPT-43970 Fluzone High Dose (>=65 yrs.) 15:19:23 CDT CPT-87849 Immunization Single Admin 15:19:23 CDT CPT-42715 Prevnar 13 15:40:03 CDT CPT-87176 Administration single or combination vaccine inc oral 15 :40:03 CDT CPT-57190 Prevnar 13 13:55:07 CDT CPT-G0008 Administration of Influenza Virus Vaccine 10:49:51 CDT CPT-85289 Fluzone High-Dose Intramuscular Suspension 10:49:51 CDT CPT-42356 Knee 3V 13:31:37 CDT CPT-27042 Bone Density 09:07:05 ASSOCIATE PROFESSOR OF COUNSELING CPT-78351 Nail Avulsion 09:46:05 CDT CPT-95968 Administration single or combination vaccine inc oral 16 :11:54 CDT CPT-43024 Influenza High Dose age 65+ 16:11:54 CDT CPT-68242 Administration single or combination vaccine inc oral 10 :53:15 CDT CPT-99800 Influenza High Dose age 65+ 10:53:15 CDT CPT-12057 Bone Density 14:50:58 ASSOCIATE PROFESSOR OF COUNSELING CPT-86211 Administration single or combination vaccine inc oral 15 :41:20 ASSOCIATE PROFESSOR OF COUNSELING CPT-24036 Zoster Vaccine (Zostavax) 15:41:20 ASSOCIATE PROFESSOR OF COUNSELING CPT-35092 Spec Collection and Handling Fee 11:18:25 ASSOCIATE PROFESSOR OF COUNSELING CPT-65782 Administration single or combination vaccine inc oral 11 :14:20 CDT CPT-14559 Influenza High Dose age 65+ 11:14:20 CDT
--- OUTSIDE RECORDS SUMMARY | 2017-07-18 08:07 | XMS REPORT | Clinical Summary ---
Author Author Admin, DANDRE Organization [facility] Address Unknown Phone Unavailable Allergies, Adverse Reactions, [...] by mouth twice daily, for UTI SULFAMETHOXAZOLE-TRIMETHOPRIM 52469262559 No Longer Active Ana Cristina Vallejo MD PhD Active HYDROCHLOROTHIAZIDE 12.5 MG CAPS 1 pill by mouth daily, for blood pressure HYDROCHLOROTHIAZIDE 30467856363 Active Mariaadomenico Whitman APRN Active CARVEDILOL 25 MG TABS 1 pill by mouth twice daily for blood pressure CARVEDILOL 02058594199 Active Mariaa Yokum LENS GRINDER AND POLISHER Active SYNTHROID 0.088 MG TAB 1 tablet by mouth daily for thyroid LEVOTHYROXINE SODIUM 56626998210 Active Mariaa Laudee LENS GRINDER AND POLISHER Active AMOXICILLIN 500 MG CAP 1 tab by mouth 3 times daily AMOXICILLIN 00563458238 No Longer Active Alden Kim MD Active [facility] VITAMIN D3 1000 UNIT CAPS TAKE 2 CAP DAILY CHOLECALCIFEROL 89006986313 Active Ana Cristina Vallejo MD PhD Active CALCIUM 500 MG TABS TAKE 3 TABS DAILY CALCIUM 79945626855 Active Aneta Samantha Leo STRUCTURAL IRONWORKER Active MULTIVITAMINS TABS TAKE 1 TAB DAILY MULTIPLE VITAMIN 42558369807 Active Aneta Tavarezum STRUCTURAL IRONWORKER Active BENADRYL ALLERGY 25 MG TABS NEEDED DIPHENHYDRAMINE HCL 76495038499 Active Aneta Singh Leo STRUCTURAL IRONWORKER Active TYLENOL 325 MG TABS NEEDED ACETAMINOPHEN 36981274874 Active Aneta Tavarezum STRUCTURAL IRONWORKER Active ADVIL 200 MG TABS TAKE NEEDED IBUPROFEN 98733708167 Active Aneta D Leo STRUCTURAL IRONWORKER Active ADULT ASPIRIN EC LOW STRENGTH 81 MG TBEC TAKE 1 TAB DAILY ASPIRIN 07781913670 Active Aneta Tavarezum STRUCTURAL IRONWORKER Active VITAMIN E NATURAL 400 UNIT CAPS TAKE 1 CAP DAILY VITAMIN E 39363022038 Active Aneta Tavarezum STRUCTURAL IRONWORKER Active GLUCOSAMINE-CHONDROITIN 500-400 MG TABS TAKE 1 TAB DAILY GLUCOSAMINE-CHONDROITIN 48631358045 Active Aneta aTvarezum STRUCTURAL IRONWORKER Active NORVASC 10 MG TABS TAKE 1 TAB DAILY AMLODIPINE BESYLATE 09932434832 Active Mariaa Whitman APRN Active BENAZEPRIL HCL 40 MG TABS 1 PO BID BENAZEPRIL HCL 89236161511 Active HEDY Esquivel Active LOVASTATIN 20 MG TABS 1 PO Q HS FOR CHOLESTEROL LOVASTATIN 57166880624 Active Mariaa Whitman APRN Active RANITIDINE HCL 150 MG CAPS 1 PO Q 12 HRS RANITIDINE HCL 10463158390 Active Mariaa Whitman APRN Active ALENDRONATE SODIUM 70 MG TABS TAKE 1 TAB ONCE A WEEK ALENDRONATE SODIUM 75543657555 Active Mariaa Whitman APRN Active AMOXICILLIN 500 MG CAP 1 tab by mouth 3 times daily AMOXICILLIN 500 MG CAP 772608 AMOXICILLIN Inactive BACTRIM DS 800-160 MG TABS 1 pill by mouth twice daily, for UTI BACTRIM DS 800-160 MG TABS 428926 SULFAMETHOXAZOLE-TRIMETHOPRIM Inactive Immunizations Vaccine Administration Date Value [...] Panel - Chemistry sodium, serum 136 mmol/L 193-028 0032/03/24 potassium, serum 4.3 mmol/L 3.5-5.2 chloride, serum [...] 5.0-8.5 Encounters Code Encounter Date Provider Facility CPT-23550 Level 3 Est. Patient 20:45:54 DEAF TEACHER Mariaa Whitman APRN [facility] CPT-96212 Level 3 Est. Patient 12:16:16 CDT Ana Cristina Vallejo MD [facility] CPT-38425 Level 4 Est. Patient 12:49:21 CDT Ana Cristina Vallejo MD PhD [facility] CPT-72930 Level 4 Est. Patient 23:02:25 CDT Ana Cristina Vallejo MD [facility]97241 Level 4 Est. Patient 19:26:33 DEAF TEACHER Ana Cristina Vallejo MD PhD [facility]-04352 Level 4 Est. Patient 11:28:14 CDT Ana Cristina Vallejo MD PhD [facility] CPT-47187 Level 4 Est. Patient 15:35:46 DEAF TEACHER Ana Cristina Vallejo MD PhD [facility] CPT-38955 Level 3 Est. Patient 21:06:39 DEAF TEACHER Alden Kim MD [facility] CPT-12761 Level 4 Est. Patient 15:30:54 DEAF TEACHER Ana Cristina Vallejo MD PhD [facility] Procedures Code Procedure Name Date Entry Date Standard Description CPT-000 Give Appropriate Flu Vaccine 14:51:52 CDT CPT-61409 Fluzone High Dose (>=65 yrs.) 15:19:23 CDT CPT-14786 Immunization Single Admin 15:19:23 CDT CPT-33223 Prevnar 13 15:40:03 CDT CPT-89466 Administration single or combination vaccine inc oral 15 :40:03 CDT CPT-57286 Prevnar 13 13:55:07 CDT CPT-G0008 Administration of Influenza Virus Vaccine 10:49:51 CDT CPT-48263 Fluzone High-Dose Intramuscular Suspension 10:49:51 CDT CPT-18971 Knee 3V 13:31:37 CDT CPT-58561 Bone Density 09:07:05 DEAF TEACHER CPT-81581 Nail Avulsion 09:46:05 CDT CPT-93030 Administration single or combination vaccine inc oral 16 :11:54 CDT CPT-52297 Influenza High Dose age 65+ 16:11:54 CDT CPT-49725 Administration single or combination vaccine inc oral 10 :53:15 CDT CPT-14011 Influenza High Dose age 65+ 10:53:15 CDT CPT-22822 Bone Density 14:50:58 DEAF TEACHER CPT-69243 Administration single or combination vaccine inc oral 15 :41:20 DEAF TEACHER CPT-36997 Zoster Vaccine (Zostavax) 15:41:20 DEAF TEACHER CPT-18502 Spec Collection and Handling Fee 11:18:25 DEAF TEACHER CPT-20161 Administration single or combination vaccine inc oral 11 :14:20 CDT CPT-85755 Influenza High Dose age 65+ 11:14:20 CDT
--- OUTSIDE RECORDS SUMMARY | 2017-07-18 08:07 | XMS REPORT | Clinical Summary ---
Author Author Admin, DANDRE Organization [facility] [employer] Address Unknown Phone Unavailable Allergies, Adverse Reactions, Alerts Allergy Name Reaction Description Start Date Severity Status Provider NKDA Critical Active Mariaa Whitman DISPATCHER RELAY Conditions or Problems Problem Name Problem Code Onset Date Status Entry Date Provider Comment Standard Description Annotate ROUTINE GYNECOLOGICAL EXAMINATION V72.31 Resolved Ana Cristina Vallejo MD PhD Routine gynecological examination MENOPAUSE 627.2 Ruled out Ana Cristina Vallejo MD PhD Symptomatic menopausal or female climacteric states MENOPAUSE 627.2 Active Brianda Reis [facility] Symptomatic menopausal or female climacteric states DIVERTICULOSIS, [...] Patient Instruction VITAMIN D3 2000 UNIT ORAL CAPSULE 1 capsule po daily CHOLECALCIFEROL 14897983110 Active HEDY Esquivel Active VITAMIN D3 2000 UNIT TABS 1 daily, for vitamin D deficiency CHOLECALCIFEROL 64448424955 Active HEDY Esquivel Active EQL ONE DAILY WOMENS ORAL TABLET 1 po daily MULTIPLE VITAMINS- CALCIUM 64258132280 Active HEDY Esquivel Active CIPRO 250 MG ORAL TABS 1 tab BID for 7 days CIPROFLOXACIN HCL 89552137879 Active Deepti Junior LPN Active MACROBID 100 MG ORAL CAPS 1 tab BID for 5 days NITROFURANTOIN MONOHYD MACRO 82269431976 No Longer Active Deepti Junior LPN Active HYDROCHLOROTHIAZIDE 12.5 MG CAPS 1 pill by mouth daily HYDROCHLOROTHIAZIDE 31339187927 Active Jalil Hayes MD Active RANITIDINE HCL 150 MG CAPS once nightly RANITIDINE HCL 32521839689 Active Jalil Hayes MD Active BENAZEPRIL HCL 40 MG TABS 1 daily for blood pressure BENAZEPRIL HCL 26631143031 Active Jalil Hayes MD Active HYDROCHLOROTHIAZIDE 12.5 MG CAPS 1 pill by mouth daily, for blood pressure HYDROCHLOROTHIAZIDE 71063528779 No Longer Active Jalil Hayes MD Active AUGMENTIN 875-125 MG TAB 1 po BID x 7 days AMOXICILLIN-POT CLAVULANATE 58350041051 No Longer Active Jalil Hayes MD Active OMEPRAZOLE 40 MG CPDR 1 po q a.m. OMEPRAZOLE 75522308154 Active Peggy Pardo LPN Active MIRALAX ORAL PACK Takes daily prn POLYETHYLENE GLYCOL 3350 16539706671 No Longer Active Peggy Pardo LPN Active FLONASE ALLERGY RELIEF 50 MCG/ACT NASAL SUSP One spray each nostril daily for allergies FLUTICASONE PROPIONATE 04128988683 No Longer Active Peggy Pardo LPN Active BENADRYL ALLERGY 25 MG TABS NEEDED DIPHENHYDRAMINE HCL 46189113754 No Longer Active Peggy Pardo LPN Active ADVIL 200 MG TABS TAKE NEEDED IBUPROFEN 51583115886 No Longer Active Peggy Pardo LPN Active COLACE 100 MG CAP 1 po BID PRN Constipation DOCUSATE SODIUM 69474021887 No Longer Active Deepti Junior LPN Active ALPRAZOLAM 0.25 MG TAB 1/2-1 tablet by mouth twice a day as needed for stress ALPRAZOLAM 90352735964 No Longer Active Deepti Junior LPN Active ALENDRONATE SODIUM 70 MG TABS 1 pill by mouth weekly for osteoporosis ALENDRONATE SODIUM 37499610804 Active Mariaa Whitman APRN Active E-1000 1000 UNIT ORAL CAPS Take one by mouth daily VITAMIN E 90875040110 Active HEDY Esquivel Active OSCAL 500/200 D-3 500-200 MG-UNIT ORAL TABS Take one by mouth 3 times daily, morning, afternoon and evening.] CALCIUM CARBONATE-VITAMIN D 80785824755 Active HEDY Esquivel Active ASPIRIN 81 MG CHEW TAB 1 tablet by mouth daily ASPIRIN 60036820135 Active HEDY Esquivel Active ADULT ASPIRIN EC LOW STRENGTH 81 MG TBEC TAKE 1 TAB DAILY ASPIRIN 23748932892 No Longer Active Mariaa Whitman APRN Active ALENDRONATE SODIUM 70 MG TABS TAKE 1 TAB ONCE A WEEK ALENDRONATE SODIUM 77065200866 No Longer Active Mariaa Whitman APRN Active CETIRIZINE HCL 10 MG ORAL TABS 1 po qd PRN Allergies CETIRIZINE HCL 27247633041 Active HEDY Esquivel Active BACTRIM DS 800-160 MG TABS 1 pill by mouth twice daily, for UTI SULFAMETHOXAZOLE-TRIMETHOPRIM 09991559441 No Longer Active Ana Cristina Vallejo MD PhD Active CARVEDILOL 25 MG TABS 1 pill by mouth twice daily for blood pressure CARVEDILOL 81268483810 Active HEDY Esquivel Active SYNTHROID 0.088 MG TAB 1 tablet by mouth daily for thyroid LEVOTHYROXINE SODIUM 18944117548 Active HEDY Esquivel Active AMOXICILLIN 500 MG CAP 1 tab by mouth 3 times daily AMOXICILLIN 89797970975 No Longer Active Alden Kim MD Active CALCIUM 500 MG TABS TAKE 3 TABS DAILY CALCIUM 05000362841 No Longer Active Mariaa Whitman APRN Active MULTIVITAMINS TABS TAKE 1 TAB DAILY MULTIPLE VITAMIN No Longer Active Aneta Bailey LPN Active TYLENOL 325 MG TABS NEEDED ACETAMINOPHEN 48217435914 Active Aneta D Leo RESIDENTIAL GLAZIER Active GLUCOSAMINE-CHONDROITIN 500-400 MG TABS TAKE 1 TAB DAILY GLUCOSAMINE-CHONDROITIN 69193774491 Active Mariaa Whitman DISPATCHER RELAY Active NORVASC 10 MG TABS TAKE 1 TAB DAILY AMLODIPINE BESYLATE 51497764597 Active HEDY Esquivel Active LOVASTATIN 20 MG TABS 1 PO Q HS FOR CHOLESTEROL LOVASTATIN 02459160778 Active HEDY Esquivel Active ALENDRONATE SODIUM 70 MG TABS TAKE 1 TAB ONCE A WEEK ALENDRONATE SODIUM 70 MG TABS 341875 ALENDRONATE SODIUM Inactive ADULT ASPIRIN EC LOW STRENGTH 81 MG TBEC TAKE 1 TAB DAILY ADULT ASPIRIN EC LOW STRENGTH 81 MG TBEC 807339 ASPIRIN Inactive ALPRAZOLAM 0.25 MG TAB 1/2-1 tablet by mouth twice a day as needed for stress ALPRAZOLAM 0.25 MG TAB 699840 ALPRAZOLAM Inactive COLACE 100 MG CAP 1 po BID PRN Constipation COLACE 100 MG CAP 5301748 DOCUSATE SODIUM Inactive ADVIL 200 MG TABS TAKE NEEDED ADVIL 200 MG TABS 227587 IBUPROFEN Inactive BENADRYL ALLERGY 25 MG TABS NEEDED BENADRYL ALLERGY 25 MG TABS 7140795 DIPHENHYDRAMINE HCL Inactive FLONASE ALLERGY RELIEF 50 MCG/ACT NASAL SUSP One spray each nostril daily for allergies FLONASE ALLERGY RELIEF 50 MCG/ACT NASAL SUSP 6771002 FLUTICASONE PROPIONATE Inactive MIRALAX ORAL PACK Takes daily prn MIRALAX ORAL PACK 209480 POLYETHYLENE GLYCOL 3350 Inactive AUGMENTIN 875-125 MG TAB 1 po BID x 7 days AUGMENTIN 875-125 MG TAB 243242 AMOXICILLIN-POT CLAVULANATE Inactive HYDROCHLOROTHIAZIDE 12.5 MG CAPS 1 pill by mouth daily, for blood pressure HYDROCHLOROTHIAZIDE 12.5 MG CAPS 339917 HYDROCHLOROTHIAZIDE Inactive AMOXICILLIN 500 MG CAP 1 tab by mouth 3 times daily AMOXICILLIN 500 MG CAP 319715 AMOXICILLIN Inactive BACTRIM DS 800-160 MG TABS 1 pill by mouth twice daily, for UTI BACTRIM DS 800-160 MG TABS 602561 SULFAMETHOXAZOLE-TRIMETHOPRIM Inactive MACROBID 100 MG ORAL CAPS 1 tab BID for 5 days MACROBID 100 MG ORAL CAPS 2174510 NITROFURANTOIN MONOHYD MACRO Inactive Advance Directives Directive [...] Panel - Chemistry sodium, serum 130 mmol/L 999-717 2492/10/19 potassium, serum 3.5 mmol/L 3.5-5.2 chloride, serum 92 mmol/L 98-107 carbon dioxide, venous blood 33.6 mmol/L 21.0-32.0 blood glucose 118 mg/dL 65-110 calcium, serum 8.8 mg/dL 8.5-10.1 urea nitrogen, blood 11 mg/dL 7-18 creatinine, serum 1.12 mg/dL 0.55-1.30 sodium, serum 132 mmol/L 505-293 9776/08/09 potassium, serum 4.2 mmol/L 3.5-5.2 chloride, serum 99 mmol/L 98-107 carbon dioxide, venous blood 24.7 mmol/L 21.0-32.0 blood glucose 119 mg/dL 65-110 calcium, serum 8.5 mg/dL 8.5-10.1 urea nitrogen, blood 14 mg/dL 7-18 creatinine, serum 1.16 mg/dL 0.60-1.30 Lab Report: CBC-QUEST, COMPREHENSIVE METABOLIC PANEL, LIPID PANEL, Micro ... - Chemistry cholesterol, serum 162 mg/dL 885-943 3862/05/01 HDL cholesterol, serum 68 mg/dL > OR=46 [...] % 11.0-15.0 platelet count 297 THOUSAND/UL 10*3/mm3 296-423 9110/05/01 mean platelet volume 8.9 fL 7.5-12.5 Lab [...] 5.0-8.5 Encounters Code Encounter Date Provider Facility [facility]-[id number] Level 3 Est. Patient 13:55:49 CDT Jalil Hayes MD [facility]07987 Level 3 Est. Patient 14:38:15 CDT Jalil Hayes MD [facility]94895 Level 4 Est. Patient 14:40:54 CDT Bee Rosas [facility]42949 Level 4 Est. Patient 10:31:15 CDT Jalil Hayes MD [facility]09458 Level 4 Est. Patient 15:07:54 CDT Mariaa Whitman [facility]10742 Level 3 Est. Patient 20:45:54 CNC GRINDER Mariaa Whitman [facility]12199 Level 3 Est. Patient 12:16:16 CDT Ana Cristina Vallejo MD [facility]72666 Level 4 Est. Patient 12:49:21 CDT Ana Cristina Vallejo MD [facility]76596 Level 4 Est. Patient 23:02:25 CDT Ana Cristina Vallejo MD [facility]92447 Level 4 Est. Patient 19:26:33 CNC GRINDER Ana Cristina Vallejo MD [facility]52264 Level 4 Est. Patient 11:28:14 CDT Ana Cristina Vallejo MD PhD [facility] CPT-44938 Level 4 Est. Patient 15:35:46 CNC GRINDER Ana Cristina Vallejo MD PhD [facility] CPT-42458 Level 3 Est. Patient 21:06:39 CNC GRINDER Alden Kim MD [facility] CPT-26896 Level 4 Est. Patient 15:30:54 CNC GRINDER Ana Cristina Vallejo MD PhD [facility] Procedures Code Procedure Name Date Entry Date Standard Description CPT-TCMM Transitional Care Mgmt-Moderate 14:41:55 CDT CPT-67565 EKG Trac and Interp - XRAY USE ONLY 10:35:11 CDT 09/11 CPT-66667 Chest 2V Frontal and Lat - XRAY USE ONLY 10:35:11 CDT CPT-G0438 Initial Annual Wellness Exam 14:54:07 CDT CPT-G0009 Administration of Pneumococcal Vaccine 14:44:24 CDT CPT-44324 Pneumovax 23 Injection Injectable 25 MCG/0.5ML 14:44:24 CDT CPT-68421 First Vx - Ix admin for Medicare patients 14:44:24 CDT CPT-24251 Fluzone High-Dose Intramuscular Suspension 14:44:20 CDT CPT-08393 BMP - LAB USE ONLY 12:38:06 CDT CPT-06362 Urine Culture - LAB USE ONLY 16:56:33 CDT CPT-TCMM Transitional Care Mgmt-Moderate 18:08:16 CDT CPT-06433 Bone Density 09:14:12 CDT CPT-000 Give Appropriate Flu Vaccine 14:51:52 CDT CPT-11047 Fluzone High Dose (>=65 yrs.) 15:19:23 CDT CPT-71053 Immunization Single Admin 15:19:23 CDT CPT-17213 Prevnar 13 15:40:03 CDT CPT-51212 Administration single or combination vaccine inc oral 15 :40:03 CDT CPT-70827 Prevnar 13:55:07 CDT CPT-G0008 Administration of Influenza Virus Vaccine 10:49:51 CDT CPT-73791 Fluzone High-Dose Intramuscular Suspension 10:49:51 CDT CPT-09407 Knee 3V 13:31:37 CDT CPT-28523 Bone Density 09:07:05 CNC GRINDER CPT-25071 Nail Avulsion 09:46:05 CDT CPT-55047 Administration single or combination vaccine inc oral 16 :11:54 CDT CPT-25146 Influenza High Dose age 65+ 16:11:54 CDT CPT-57009 Administration single or combination vaccine inc oral 10 :53:15 CDT CPT-32567 Influenza High Dose age 65+ 10:53:15 CDT CPT-12759 Bone Density 14:50:58 CNC GRINDER CPT-06495 Administration single or combination vaccine inc oral 15 :41:20 CNC GRINDER CPT-11268 Zoster Vaccine (Zostavax) 15:41:20 CNC GRINDER CPT-33676 Spec Collection and Handling Fee 11:18:25 CNC GRINDER CPT-81126 Administration single or combination vaccine inc oral 11 :14:20 CDT CPT-43928 Influenza High Dose age 65+ 11:14:20 CDT
--- OUTSIDE RECORDS SUMMARY | 2017-07-18 08:08 | XMS REPORT | Clinical Summary ---
Author Author Admin, DANDRE Organization [facility] [employer] Address Unknown Phone Unavailable Allergies, Adverse Reactions, Alerts Allergy Name Reaction Description Start Date Severity Status Provider NKDA Critical Active Mariaa Whitman 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 Conditions or Problems Problem Name Problem Code Onset Date Status Entry Date Provider Comment Standard Description Annotate ROUTINE GYNECOLOGICAL EXAMINATION V72.31 Resolved Ana Cristina Vallejo MD PhD Routine gynecological examination MENOPAUSE 627.2 Ruled out Ana Cristina Vallejo MD PhD Symptomatic menopausal or female climacteric states MENOPAUSE 627.2 Active Brianda Reis [facility] Symptomatic menopausal or female climacteric states DIVERTICULOSIS, [...] other specified administrative purpose Edema 782.3 Active Jlail Hayes MD Edema Dyspnea 786.09 Active Jalil [...] 1 daily, for vitamin D deficiency CHOLECALCIFEROL 24630411124 No Longer Active Radha Jones APRN Active CIPRO 250 MG ORAL TABLET 1 tab BID for 7 days CIPROFLOXACIN HCL 99861530437 No Longer Active Radha Jones APRN Active VITAMIN D3 2000 UNIT ORAL CAPSULE 1 capsule po daily CHOLECALCIFEROL 42815036168 Active HEDY Esquivel Active EQL ONE DAILY WOMENS ORAL TABLET 1 po daily MULTIPLE VITAMINS- CALCIUM 86202869199 Active HEDY Esquivel Active MACROBID 100 MG ORAL CAPSULE 1 tab BID for 5 days NITROFURANTOIN MONOHYD MACRO 74643433147 No Longer Active Deepti Junior LPN Active HYDROCHLOROTHIAZIDE 12.5 MG ORAL CAPSULE 1 pill by mouth daily HYDROCHLOROTHIAZIDE 02139151376 Active Jalil Hayes MD Active RANITIDINE HCL 150 MG ORAL CAPSULE once nightly RANITIDINE HCL 54378586028 Active Jalil Hayes MD Active BENAZEPRIL HCL 40 MG ORAL TABLET 1 daily for blood pressure BENAZEPRIL HCL 96772514874 Active Jalil Hayes MD Active HYDROCHLOROTHIAZIDE 12.5 MG ORAL CAPSULE 1 pill by mouth daily, for blood pressure HYDROCHLOROTHIAZIDE 01547056409 No Longer Active Jalil Hayes MD Active AUGMENTIN 875-125 MG ORAL TABLET 1 po BID x 7 days AMOXICILLIN-POT CLAVULANATE 01510563701 No Longer Active Jalil Hayes MD Active OMEPRAZOLE 40 MG ORAL CAPSULE DELAYED RELEASE 1 po q a.m. OMEPRAZOLE 79677385841 Active HEDY Esquivel Active MIRALAX ORAL PACKET Takes daily prn POLYETHYLENE GLYCOL 3350 62392793342 No Longer Active Peggy Pardo LPN Active FLONASE ALLERGY RELIEF 50 MCG/ACT NASAL SUSPENSION One spray each nostril daily for allergies FLUTICASONE PROPIONATE 98949561758 No Longer Active Peggy Pardo LPN Active BENADRYL ALLERGY 25 MG ORAL TABLET NEEDED DIPHENHYDRAMINE HCL 80622407517 No Longer Active Peggy Pardo LPN Active ADVIL 200 MG ORAL TABLET TAKE NEEDED IBUPROFEN 39960965396 No Longer Active Peggy Pardo LPN Active COLACE 100 MG ORAL CAPSULE 1 po BID PRN Constipation DOCUSATE SODIUM 94408752717 No Longer Active Deepti Junior LPN Active ALPRAZOLAM 0.25 MG ORAL TABLET 1/2-1 tablet by mouth twice a day as needed for stress ALPRAZOLAM 19056674949 No Longer Active Deepti Hamlinjaja HORVATH Active ALENDRONATE SODIUM 70 MG ORAL TABLET 1 pill by mouth weekly for osteoporosis ALENDRONATE SODIUM 98693222372 Active Mariaa Laudee LUGO Active E-1000 1000 UNIT ORAL CAPSULE Take one by mouth daily VITAMIN E 54238193375 Active HEDY Esquivel Active OSCAL 500/200 D-3 500-200 MG-UNIT ORAL TABLET Take one by mouth 3 times daily , morning, afternoon and evening.] CALCIUM CARBONATE-VITAMIN D 44681634292 Active HEDY Esquivel Active ASPIRIN 81 MG ORAL TABLET CHEWABLE 1 tablet by mouth daily ASPIRIN 76522301918 Active HEDY Esquivel Active ADULT ASPIRIN EC LOW STRENGTH 81 MG ORAL TABLET DELAYED RELEASE TAKE 1 TAB DAILY ASPIRIN 01624415246 No Longer Active Mariaa Laudee LUGO Active ALENDRONATE SODIUM 70 MG ORAL TABLET TAKE 1 TAB ONCE A WEEK 01/20 ALENDRONATE SODIUM 98566593583 No Longer Active Mariaa Atkinsonbeckie LUGO Active CETIRIZINE HCL 10 MG ORAL TABLET 1 po qd PRN Allergies CETIRIZINE HCL 45268690766 Active HEDY Esquivel Active BACTRIM DS 800-160 MG ORAL TABLET 1 pill by mouth twice daily, for UTI 01/29 SULFAMETHOXAZOLE-TRIMETHOPRIM 84508612429 No Longer Active Ana Cristina Vallejo MD PhD Active CARVEDILOL 25 MG ORAL TABLET 1 pill by mouth twice daily for blood pressure CARVEDILOL 38685390011 Active Aneta Bailey LPN Active SYNTHROID 88 MCG ORAL TABLET 1 tablet by mouth daily for thyroid LEVOTHYROXINE SODIUM 20422631400 Active HEDY Esquivel Active AMOXICILLIN 500 MG ORAL CAPSULE 1 tab by mouth 3 times daily 2011 AMOXICILLIN 67806401146 No Longer Active Alden Kim MD Active CALCIUM 500 MG ORAL TABLET TAKE 3 TABS DAILY CALCIUM 80202763779 No Longer Active Mariaa Whitman 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 Active MULTIVITAMINS TABS TAKE 1 TAB DAILY MULTIPLE VITAMIN No Longer Active Anetajeannie Tavarezum DAMPENER OPERATOR Active TYLENOL 325 MG ORAL TABLET NEEDED ACETAMINOPHEN 53962878651 Active Aneta D Leo DAMPENER OPERATOR Active GLUCOSAMINE-CHONDROITIN 500-400 MG ORAL TABLET TAKE 1 TAB DAILY GLUCOSAMINE-CHONDROITIN 46062660051 Active Aneta Tavarezum DAMPENER OPERATOR Active NORVASC 10 MG ORAL TABLET TAKE 1 TAB DAILY AMLODIPINE BESYLATE 48599318879 Active Aneta D Leo DAMPENER OPERATOR Active LOVASTATIN 20 MG ORAL TABLET 1 PO Q HS FOR CHOLESTEROL LOVASTATIN 26209610690 Active HEDY Esquivel Active ADVIL 200 MG ORAL TABLET TAKE NEEDED ADVIL 200 MG ORAL TABLET 808414 IBUPROFEN Inactive ALPRAZOLAM 0.25 MG ORAL TABLET 1/2-1 tablet by mouth twice a day as needed for stress ALPRAZOLAM 0.25 MG ORAL TABLET 625248 ALPRAZOLAM Inactive AMOXICILLIN 500 MG ORAL CAPSULE 1 tab by mouth 3 times daily 2011 AMOXICILLIN 500 MG ORAL CAPSULE 976467 AMOXICILLIN Inactive BACTRIM DS 800-160 MG ORAL TABLET 1 pill by mouth twice daily, for UTI 01/29 BACTRIM DS 800-160 MG ORAL TABLET 428015 SULFAMETHOXAZOLE- TRIMETHOPRIM Inactive CIPRO 250 MG ORAL TABLET 1 tab BID for 7 days CIPRO 250 MG ORAL TABLET 124221 CIPROFLOXACIN HCL Inactive COLACE 100 MG ORAL CAPSULE 1 po BID PRN Constipation COLACE 100 MG ORAL CAPSULE 0975332 DOCUSATE SODIUM Inactive MACROBID 100 MG ORAL CAPSULE 1 tab BID for 5 days MACROBID 100 MG ORAL CAPSULE 9193496 NITROFURANTOIN MONOHYD MACRO Inactive AUGMENTIN 875-125 MG ORAL TABLET 1 po BID x 7 days AUGMENTIN 875-125 MG ORAL TABLET 752884 AMOXICILLIN-POT CLAVULANATE Inactive HYDROCHLOROTHIAZIDE 12.5 MG ORAL CAPSULE 1 pill by mouth daily, for blood pressure HYDROCHLOROTHIAZIDE 12.5 MG ORAL CAPSULE 990068 HYDROCHLOROTHIAZIDE Inactive ADULT ASPIRIN EC LOW STRENGTH 81 MG ORAL TABLET DELAYED RELEASE TAKE 1 TAB DAILY ADULT ASPIRIN EC LOW STRENGTH 81 MG ORAL TABLET DELAYED RELEASE 136422 ASPIRIN Inactive ALENDRONATE SODIUM 70 MG ORAL TABLET TAKE 1 TAB ONCE A WEEK 01/20 ALENDRONATE SODIUM 70 MG ORAL TABLET 465793 ALENDRONATE SODIUM Inactive MIRALAX ORAL PACKET Takes daily prn MIRALAX ORAL PACKET 405900 POLYETHYLENE GLYCOL 3350 Inactive BENADRYL ALLERGY 25 MG ORAL TABLET NEEDED BENADRYL ALLERGY 25 MG ORAL TABLET 4879289 DIPHENHYDRAMINE HCL Inactive VITAMIN D3 2000 UNIT ORAL TABLET 1 daily, for vitamin D deficiency VITAMIN D3 2000 UNIT ORAL TABLET CHOLECALCIFEROL Inactive FLONASE ALLERGY RELIEF 50 MCG/ACT NASAL SUSPENSION One spray each nostril daily for allergies FLONASE ALLERGY RELIEF 50 MCG/ACT NASAL SUSPENSION 2693495 FLUTICASONE PROPIONATE Inactive Advance Directives Directive Description Start Date [...] Panel - Chemistry sodium, serum 132 mmol/L 512-608 4903/08/09 potassium, serum 4.2 mmol/L 3.5-5.2 chloride, serum 99 mmol/L 98-107 carbon dioxide, venous blood 24.7 mmol/L 21.0-32.0 blood glucose 119 mg/dL 65-110 calcium, serum 8.5 mg/dL 8.5-10.1 urea nitrogen, blood 14 mg/dL 7-18 creatinine, serum 1.16 mg/dL 0.60-1.30 Lab Report: CBC-QUEST, COMPREHENSIVE METABOLIC PANEL, LIPID PANEL, Micro ... - Chemistry cholesterol, serum 162 mg/dL 655-208 9832/05/01 HDL cholesterol, serum 68 mg/dL > OR=46 [...] % 11.0-15.0 platelet count 297 THOUSAND/UL 10*3/mm3 320-113 6515/05/01 mean platelet volume 8.9 fL 7.5-12.5 Lab [...] 5.0-8.5 Encounters Code Encounter Date Provider Facility [facility]-56067 Level 3 Est. Patient 13:55:49 CDT Jalil Hayes MD [facility]-56256 Level 3 Est. Patient 14:38:15 CDT Jalil Hayes MD [facility]11400 Level 4 Est. Patient 14:40:54 CDT Bee Rosas [facility]-01938 Level 4 Est. Patient 10:31:15 CDT Jalil Hayes MD [facility]-28266 Level 4 Est. Patient 15:07:54 CDT Mariaa Whitman [facility]-56358 Level 3 Est. Patient 20:45:54 VENDOR MANAGEMENT ASSOCIATE Mariaa Whitman [facility] CPT-09720 Level 3 Est. Patient 12:16:16 CDT Ana Cristina Vallejo MD [facility]-08014 Level 4 Est. Patient 12:49:21 CDT Ana Cristina Vallejo MD [facility]14617 Level 4 Est. Patient 23:02:25 CDT Ana Cristina Vallejo MD [facility]15483 Level 4 Est. Patient 19:26:33 VENDOR MANAGEMENT ASSOCIATE Ana Cristina Vallejo MD PhD [facility] CPT-42507 Level 4 Est. Patient 11:28:14 CDT Ana Cristina Vallejo MD PhD [facility] CPT-86156 Level 4 Est. Patient 15:35:46 VENDOR MANAGEMENT ASSOCIATE Ana Cristina Vallejo MD PhD [facility] CPT-11180 Level 3 Est. Patient 21:06:39 VENDOR MANAGEMENT ASSOCIATE Alden Kim MD [facility] CPT-45190 Level 4 Est. Patient 15:30:54 VENDOR MANAGEMENT ASSOCIATE Ana Cristina Vallejo MD PhD [facility] Procedures Code Procedure Name Date Entry Date Standard Description CPT-G0439 Subsequent Annual Wellness Exam 11:53:01 VENDOR MANAGEMENT ASSOCIATE CPT-39264 First Vx - Ix admin for Medicare patients 13:35:01 CDT CPT-39537 Fluzone High-Dose Intramuscular Suspension 13:35:01 CDT CPT-TCMM Transitional Care Mgmt-Moderate 14:41:55 CDT CPT-63820 EKG Trac and Interp - XRAY USE ONLY 10:35:11 CDT 09/11 CPT-41244 Chest 2V Frontal and Lat - XRAY USE ONLY 10:35:11 CDT CPT-G0438 Initial Annual Wellness Exam 14:54:07 CDT CPT-G0009 Administration of Pneumococcal Vaccine 14:44:24 CDT CPT-92625 Pneumovax 23 Injection Injectable 25 MCG/0.5ML 14:44:24 CDT CPT-57185 First Vx - Ix admin for Medicare patients 14:44:24 CDT CPT-18120 Fluzone High-Dose Intramuscular Suspension 14:44:20 CDT CPT-33325 BMP - LAB USE ONLY 12:38:06 CDT CPT-01393 Urine Culture - LAB USE ONLY 16:56:33 CDT CPT-TCMM Transitional Care Mgmt-Moderate 18:08:16 CDT CPT-07566 Bone Density 09:14:12 CDT CPT-000 Give Appropriate Flu Vaccine 14:51:52 CDT CPT-69184 Fluzone High Dose (>=65 yrs.) 15:19:23 CDT CPT-83056 Immunization Single Admin 15:19:23 CDT CPT-38796 Prevnar 13 15:40:03 CDT CPT-42794 Administration single or combination vaccine inc oral 15 :40:03 CDT CPT-39403 Prevnar 13 13:55:07 CDT CPT-G0008 Administration of Influenza Virus Vaccine 10:49:51 CDT CPT-07085 Fluzone High-Dose Intramuscular Suspension 10:49:51 CDT CPT-81306 Knee 3V 13:31:37 CDT CPT-20334 Bone Density 09:07:05 VENDOR MANAGEMENT ASSOCIATE CPT-37577 Nail Avulsion 09:46:05 CDT CPT-29181 Administration single or combination vaccine inc oral 16 :11:54 CDT CPT-02183 Influenza High Dose age 65+ 16:11:54 CDT CPT-76357 Administration single or combination vaccine inc oral 10 :53:15 CDT CPT-65081 Influenza High Dose age 65+ 10:53:15 CDT CPT-84283 Bone Density 14:50:58 VENDOR MANAGEMENT ASSOCIATE CPT-38850 Administration single or combination vaccine inc oral 15 :41:20 VENDOR MANAGEMENT ASSOCIATE CPT-05215 Zoster Vaccine (Zostavax) 15:41:20 VENDOR MANAGEMENT ASSOCIATE CPT-40885 Spec Collection and Handling Fee 11:18:25 VENDOR MANAGEMENT ASSOCIATE CPT-52245 Administration single or combination vaccine inc oral 11 :14:20 CDT CPT-22459 Influenza High Dose age 65+ 11:14:20 CDT
--- OUTSIDE RECORDS SUMMARY | 2017-07-18 08:09 | XMS REPORT | Clinical Summary ---
Author Author Admin, DANDRE Organization [facility] enavu Address Unknown Phone Unavailable Allergies, Adverse Reactions, Alerts Allergy Name Reaction Description Start Date Severity Status Provider NKDA Critical Active Mariaa Whitman MACHINE FEEDER RAW STOCK Conditions or Problems Problem Name Problem Code [...] ICD-V70.0 Inactive Ana Cristina Vallejo MD PhD Sciatica ICD-724.3 Inactive Jalil Hayes MD 2016 Urinary bladder pain ICD-788.99 Inactive Jalil Hayes MD UTI ICD-599.0 Inactive Jalil Hayes MD INGROWN TOENAIL ICD-703.0 Inactive Ana Cristina Vallejo MD PhD Medication List Medication Instructions Start Date Stop Date Generic Name NDC Status Provider Patient Instruction COLACE 100 MG CAP 1 po BID PRN Constipation DOCUSATE SODIUM 36206352890 No Longer Active Deepti Madl NAPPER FIXER Active ALPRAZOLAM 0.25 MG TAB 1/2-1 tablet by mouth twice a day as needed for stress ALPRAZOLAM 38291314014 No Longer Active Deepti Madl NAPPER FIXER Active MIRALAX ORAL PACK Takes daily prn POLYETHYLENE GLYCOL 3350 48469015433 Active Mariaa Yokum MACHINE FEEDER RAW STOCK Active ALENDRONATE SODIUM 70 MG TABS 1 pill by mouth weekly for osteoporosis ALENDRONATE SODIUM 44469729124 Active Brianda Reis [facility] Active E-1000 1000 UNIT ORAL CAPS Take one by mouth daily VITAMIN E 63518131178 Active Brianda Reis [facility] Active OSCAL 500/200 D-3 500-200 MG-UNIT ORAL TABS Take one by mouth 3 times daily, morning, afternoon and evening.] CALCIUM CARBONATE-VITAMIN D 40667973227 Active Brianda Reis [facility] Active ASPIRIN 81 MG CHEW TAB 1 tablet by mouth daily ASPIRIN 30980114755 Active Brianda Reis [facility] Active ADULT ASPIRIN EC LOW STRENGTH 81 MG TBEC TAKE 1 TAB DAILY ASPIRIN 69350703612 No Longer Active Mariaa Yokum MACHINE FEEDER RAW STOCK Active ALENDRONATE SODIUM 70 MG TABS TAKE 1 TAB ONCE A WEEK ALENDRONATE SODIUM 35563286598 No Longer Active Mariaa Yokum MACHINE FEEDER RAW STOCK Active FLONASE ALLERGY RELIEF 50 MCG/ACT NASAL SUSP One spray each nostril daily for allergies FLUTICASONE PROPIONATE 39138572534 Active Mariaa Whitman APRN Active CETIRIZINE HCL 10 MG ORAL TABS 1 po qd PRN Allergies CETIRIZINE HCL 42800826484 Active HEDY Esquivel Active BACTRIM DS 800-160 MG TABS 1 pill by mouth twice daily, for UTI SULFAMETHOXAZOLE-TRIMETHOPRIM 66306720425 No Longer Active Ana Cristina Vallejo MD PhD Active HYDROCHLOROTHIAZIDE 12.5 MG CAPS 1 pill by mouth daily, for blood pressure HYDROCHLOROTHIAZIDE 90042107246 Active HEDY Esquivel Active CARVEDILOL 25 MG TABS 1 pill by mouth twice daily for blood pressure CARVEDILOL 98424104369 Active HEDY Esquivel Active SYNTHROID 0.088 MG TAB 1 tablet by mouth daily for thyroid LEVOTHYROXINE SODIUM 61409817524 Active HEDY Esquivel Active AMOXICILLIN 500 MG CAP 1 tab by mouth 3 times daily AMOXICILLIN 97983806973 No Longer Active Alden Kim MD Active [facility] VITAMIN D3 1000 UNIT CAPS TAKE 2 CAP DAILY CHOLECALCIFEROL Active Ana Cristina Vallejo MD PhD Active CALCIUM 500 MG TABS TAKE 3 TABS DAILY CALCIUM 97784336360 No Longer Active Mariaa Whitman APRN Active MULTIVITAMINS TABS TAKE 1 TAB DAILY MULTIPLE VITAMIN Active Anetajeannie Tavarezum NAPPER FIXER Active BENADRYL ALLERGY 25 MG TABS NEEDED DIPHENHYDRAMINE HCL 80741234446 Active Aneta Singh Leo NAPPER FIXER Active TYLENOL 325 MG TABS NEEDED ACETAMINOPHEN 80091257238 Active Aneta Singh Leo NAPPER FIXER Active ADVIL 200 MG TABS TAKE NEEDED IBUPROFEN 58826256672 Active Aneta Singh Leo NAPPER FIXER Active GLUCOSAMINE-CHONDROITIN 500-400 MG TABS TAKE 1 TAB DAILY GLUCOSAMINE-CHONDROITIN 48085082953 Active Mariaa Whitman APRN Active NORVASC 10 MG TABS TAKE 1 TAB DAILY AMLODIPINE BESYLATE 43994612404 Active HEDY Esquivel Active BENAZEPRIL HCL 40 MG TABS 1 PO BID BENAZEPRIL HCL 75687880453 Active HEDY Esquivel Active LOVASTATIN 20 MG TABS 1 PO Q HS FOR CHOLESTEROL LOVASTATIN 37875721469 Active HEDY Esquivel Active RANITIDINE HCL 150 MG CAPS 1 PO Q 12 HRS RANITIDINE HCL 16334063232 Active HEDY Esquivel Active ALENDRONATE SODIUM 70 MG TABS TAKE 1 TAB ONCE A WEEK ALENDRONATE SODIUM 70 MG TABS 146088 ALENDRONATE SODIUM Inactive ADULT ASPIRIN EC LOW STRENGTH 81 MG TBEC TAKE 1 TAB DAILY ADULT ASPIRIN EC LOW STRENGTH 81 MG TBEC 192994 ASPIRIN Inactive ALPRAZOLAM 0.25 MG TAB 1/2-1 tablet by mouth twice a day as needed for stress ALPRAZOLAM 0.25 MG TAB 791814 ALPRAZOLAM Inactive COLACE 100 MG CAP 1 po BID PRN Constipation COLACE 100 MG CAP 2811606 DOCUSATE SODIUM Inactive AMOXICILLIN 500 MG CAP 1 tab by mouth 3 times daily AMOXICILLIN 500 MG CAP 167247 AMOXICILLIN Inactive BACTRIM DS 800-160 MG TABS 1 pill by mouth twice daily, for UTI BACTRIM DS 800-160 MG TABS 539916 SULFAMETHOXAZOLE-TRIMETHOPRIM Inactive Advance Directives Directive Description Start [...] Panel - Chemistry sodium, serum 130 mmol/L 122-680 3350/10/19 potassium, serum 3.5 mmol/L 3.5-5.2 chloride, serum 92 mmol/L 98-107 carbon dioxide, venous blood 33.6 mmol/L 21.0-32.0 blood glucose 118 mg/dL 65-110 calcium, serum 8.8 mg/dL 8.5-10.1 urea nitrogen, blood 11 mg/dL 7-18 creatinine, serum 1.12 mg/dL 0.55-1.30 Lab Report: CBC-QUEST, COMPREHENSIVE METABOLIC PANEL, LIPID PANEL, Micro ... - Chemistry cholesterol, serum 162 mg/dL 184-193 5501/05/01 HDL cholesterol, serum 68 mg/dL > OR=46 [...] % 11.0-15.0 platelet count 297 THOUSAND/UL 10*3/mm3 831-556 4267/05/01 mean platelet volume 8.9 fL 7.5-12.5 Lab [...] Negative Encounters Code Encounter Date Provider Facility CPT-27485 Level 4 Est. Patient 14:40:54 CDT Bee Rosas [facility] CPT-00180 Level 4 Est. Patient 10:31:15 CDT Jalil Hayes MD [facility]-29330 Level 4 Est. Patient 15:07:54 CDT Mariaa Whitman [facility]-15182 Level 3 Est. Patient 20:45:54 SENIOR SUPPORT ENGINEER Mariaa Whitman [facility] CPT-17516 Level 3 Est. Patient 12:16:16 CDT Ana Cristina Vallejo MD PhD [facility] CPT-20223 Level 4 Est. Patient 12:49:21 CDT Ana Cristina Vallejo MD [facility]-83914 Level 4 Est. Patient 23:02:25 CDT Ana Cristina Vallejo MD PhD [facility] CPT-30920 Level 4 Est. Patient 19:26:33 SENIOR SUPPORT ENGINEER Ana Cristina Vallejo MD PhD [facility] CPT-06301 Level 4 Est. Patient 11:28:14 CDT Ana Cristina Vallejo MD PhD [facility] CPT-09099 Level 4 Est. Patient 15:35:46 SENIOR SUPPORT ENGINEER Ana Cristina Vallejo MD PhD [facility] CPT-47254 Level 3 Est. Patient 21:06:39 SENIOR SUPPORT ENGINEER Alden Kim MD [facility] CPT-50374 Level 4 Est. Patient 15:30:54 SENIOR SUPPORT ENGINEER Ana Cristina Vallejo MD PhD [facility] Procedures Code Procedure Name Date Entry Date Standard Description CPT-19745 EKG Trac and Interp - XRAY USE ONLY 10:35:11 CDT 09/11 CPT-45927 Chest 2V Frontal and Lat - XRAY USE ONLY 10:35:11 CDT CPT-G0438 Initial Annual Wellness Exam 14:54:07 CDT CPT-G0009 Administration of Pneumococcal Vaccine 14:44:24 CDT CPT-15027 Pneumovax 23 Injection Injectable 25 MCG/0.5ML 14:44:24 CDT CPT-83821 First Vx - Ix admin for Medicare patients 14:44:24 CDT CPT-59932 Fluzone High-Dose Intramuscular Suspension 14:44:20 CDT CPT-97181 BMP - LAB USE ONLY 12:38:06 CDT CPT-05651 Urine Culture - LAB USE ONLY 16:56:33 CDT CPT-TCMM Transitional Care Mgmt-Moderate 18:08:16 CDT CPT-66407 Bone Density 09:14:12 CDT CPT-000 Give Appropriate Flu Vaccine 14:51:52 CDT CPT-12916 Fluzone High Dose (>=65 yrs.) 15:19:23 CDT CPT-13818 Immunization Single Admin 15:19:23 CDT CPT-59380 Prevnar 13 15:40:03 CDT CPT-65014 Administration single or combination vaccine inc oral 15 :40:03 CDT CPT-75438 Prevnar 13:55:07 CDT CPT-G0008 Administration of Influenza Virus Vaccine 10:49:51 CDT CPT-66395 Fluzone High-Dose Intramuscular Suspension 10:49:51 CDT CPT-94566 Knee 3V 13:31:37 CDT CPT-32689 Bone Density 09:07:05 SENIOR SUPPORT ENGINEER CPT-27868 Nail Avulsion 09:46:05 CDT CPT-46013 Administration single or combination vaccine inc oral 16 :11:54 CDT CPT-03107 Influenza High Dose age 65+ 16:11:54 CDT CPT-47151 Administration single or combination vaccine inc oral 10 :53:15 CDT CPT-68557 Influenza High Dose age 65+ 10:53:15 CDT CPT-99123 Bone Density 14:50:58 SENIOR SUPPORT ENGINEER CPT-99395 Administration single or combination vaccine inc oral 15 :41:20 SENIOR SUPPORT ENGINEER CPT-06731 Zoster Vaccine (Zostavax) 15:41:20 SENIOR SUPPORT ENGINEER CPT-96564 Spec Collection and Handling Fee 11:18:25 SENIOR SUPPORT ENGINEER CPT-26416 Administration single or combination vaccine inc oral 11 :14:20 CDT CPT-84937 Influenza High Dose age 65+ 11:14:20 CDT
--- OUTSIDE RECORDS SUMMARY | 2017-07-18 08:09 | XMS REPORT ---
Author Author [facility] Medical Staff Organization [facility] Address [address] [place], [place] [address] Phone [phone] Care Team Providers Care Locomotive Supervisor Name Role Phone MARCIO AGUAYO, LEANDRO PP [phone] Summary purpose TRANSITION OF CARE AUTO GENERATION Chief Complaint and Reason for Visit Admit Diagnosis 1 PHYSICAL THERAPY NEC Problem list No authorized problems tracked for continuity of care are available for this visit. Encounters No authorized problems tracked for encounter diagnoses are available for this visit. Medications No medications recorded for this patient visit Allergies, adverse reactions, alerts Allergen Category Ingredient Status Reaction Severity Onset No known drug allergies No known drug allergies No known drug allergies Confirmed or Verified Immunizations No immunizations recorded for this patient visit Relevant diagnostic tests and/or laboratory data No authorized results are available for this patient visit History of procedures Procedure Code Code Type Description Date Performed Performing Physician 20589 CPT-4 ULTRASOUND THERAPY 08-13-2014 LEANDRO BUCKLEY 03250 CPT-4 ULTRASOUND THERAPY 08-18-2014 LEANDRO BUCKLEY Functional status No functional or cognitive status [...]
--- OUTSIDE RECORDS SUMMARY | 2017-07-18 08:09 | XMS REPORT | Clinical Summary ---
Author Author Admin, DANDRE Organization [facility] Address Unknown Phone Unavailable Allergies, Adverse Reactions, Alerts Allergy Name Reaction Description Start Date Severity Status Provider NKDA Critical Active Mariaa Whitman ART EDITOR Conditions or Problems Problem Name Problem Code Onset Date Status Entry Date Provider Comment Standard Description Annotate ROUTINE GYNECOLOGICAL EXAMINATION V72.31 Resolved Ana Cristina Vallejo MD PhD Routine gynecological examination MENOPAUSE 627.2 Ruled out Ana Cristina Vallejo MD PhD Symptomatic menopausal or female climacteric states MENOPAUSE 627.2 Active Brianda Reis [facility] Symptomatic menopausal or female climacteric states [...] 1 po BID PRN Constipation DOCUSATE SODIUM 60280639278 No Longer Active Deepti Madl SOLAR PROCESS ENGINEER Active ALPRAZOLAM 0.25 MG TAB 1/2-1 tablet by mouth twice a day as needed for stress ALPRAZOLAM 63702283129 No Longer Active Deepti Madl SOLAR PROCESS ENGINEER Active MIRALAX ORAL PACK Takes daily prn POLYETHYLENE GLYCOL 3350 99869177733 Active Mariaa Yokum ART EDITOR Active ALENDRONATE SODIUM 70 MG TABS 1 pill by mouth weekly for osteoporosis ALENDRONATE SODIUM 39606955764 Active Brianda Reis [facility] Active E-1000 1000 UNIT ORAL CAPS Take one by mouth daily VITAMIN E 92006256077 Active Brianda Reis [facility] Active OSCAL 500/200 D-3 500-200 MG-UNIT ORAL TABS Take one by mouth 3 times daily, morning, afternoon and evening.] CALCIUM CARBONATE-VITAMIN D 57214511967 Active Brianda Reis [facility] Active ASPIRIN 81 MG CHEW TAB 1 tablet by mouth daily ASPIRIN 44938445539 Active Brianda Reis [facility] Active ADULT ASPIRIN EC LOW STRENGTH 81 MG TBEC TAKE 1 TAB DAILY ASPIRIN 33171978527 No Longer Active Mariaa Yokum ART EDITOR Active ALENDRONATE SODIUM 70 MG TABS TAKE 1 TAB ONCE A WEEK ALENDRONATE SODIUM 34746842902 No Longer Active Mariaa Yokum ART EDITOR Active FLONASE ALLERGY RELIEF 50 MCG/ACT NASAL SUSP One spray each nostril daily for allergies FLUTICASONE PROPIONATE 71273880137 Active Mariaa Whitman APRN Active CETIRIZINE HCL 10 MG ORAL TABS 1 po qd PRN Allergies CETIRIZINE HCL 64734638616 Active Mariaadomenico Whitman APRN Active BACTRIM DS 800-160 MG TABS 1 pill by mouth twice daily, for UTI SULFAMETHOXAZOLE-TRIMETHOPRIM 95219890392 No Longer Active Ana Cristina Vallejo MD PhD Active HYDROCHLOROTHIAZIDE 12.5 MG CAPS 1 pill by mouth daily, for blood pressure HYDROCHLOROTHIAZIDE 36568181797 Active Mariaa Whitman APRN Active CARVEDILOL 25 MG TABS 1 pill by mouth twice daily for blood pressure CARVEDILOL 43453007302 Active Mariaa Whitman APRN Active SYNTHROID 0.088 MG TAB 1 tablet by mouth daily for thyroid LEVOTHYROXINE SODIUM 39542062900 Active HEDY Esquivel Active AMOXICILLIN 500 MG CAP 1 tab by mouth 3 times daily AMOXICILLIN 16277948676 No Longer Active Alden Kim MD Active [facility] VITAMIN D3 1000 UNIT CAPS TAKE 2 CAP DAILY CHOLECALCIFEROL Active Ana Cristina Vallejo MD PhD Active CALCIUM 500 MG TABS TAKE 3 TABS DAILY CALCIUM 45238167163 No Longer Active Mariaa Whitman APRN Active MULTIVITAMINS TABS TAKE 1 TAB DAILY MULTIPLE VITAMIN Active Aneta Tavarezum SOLAR PROCESS ENGINEER Active BENADRYL ALLERGY 25 MG TABS NEEDED DIPHENHYDRAMINE HCL 49401766018 Active Aneta Tavarezum SOLAR PROCESS ENGINEER Active TYLENOL 325 MG TABS NEEDED ACETAMINOPHEN 02575322496 Active Aneta Singh Leo SOLAR PROCESS ENGINEER Active ADVIL 200 MG TABS TAKE NEEDED IBUPROFEN 21488770884 Active Aneta Tavarezum SOLAR PROCESS ENGINEER Active GLUCOSAMINE-CHONDROITIN 500-400 MG TABS TAKE 1 TAB DAILY GLUCOSAMINE-CHONDROITIN 89007183772 Active Mariaa Whitman APRN Active NORVASC 10 MG TABS TAKE 1 TAB DAILY AMLODIPINE BESYLATE 97731550161 Active Mariaa Whitman APRN Active BENAZEPRIL HCL 40 MG TABS 1 PO BID BENAZEPRIL HCL 02139046383 Active HEDY Esquivel Active LOVASTATIN 20 MG TABS 1 PO Q HS FOR CHOLESTEROL LOVASTATIN 08280445529 Active HEDY Esquivel Active RANITIDINE HCL 150 MG CAPS 1 PO Q 12 HRS RANITIDINE HCL 17414992155 Active Mariaa Whitman APRN Active ALENDRONATE SODIUM 70 MG TABS TAKE 1 TAB ONCE A WEEK ALENDRONATE SODIUM 70 MG TABS 543867 ALENDRONATE SODIUM Inactive ADULT ASPIRIN EC LOW STRENGTH 81 MG TBEC TAKE 1 TAB DAILY ADULT ASPIRIN EC LOW STRENGTH 81 MG TBEC 752944 ASPIRIN Inactive ALPRAZOLAM 0.25 MG TAB 1/2-1 tablet by mouth twice a day as needed for stress ALPRAZOLAM 0.25 MG TAB 761074 ALPRAZOLAM Inactive COLACE 100 MG CAP 1 po BID PRN Constipation COLACE 100 MG CAP 0872226 DOCUSATE SODIUM Inactive AMOXICILLIN 500 MG CAP 1 tab by mouth 3 times daily AMOXICILLIN 500 MG CAP 288125 AMOXICILLIN Inactive BACTRIM DS 800-160 MG TABS 1 pill by mouth twice daily, for UTI BACTRIM DS 800-160 MG TABS 503147 SULFAMETHOXAZOLE-TRIMETHOPRIM Inactive Advance Directives Directive Description Start [...] Panel - Chemistry sodium, serum 130 mmol/L 063-702 8934/10/19 potassium, serum 3.5 mmol/L 3.5-5.2 chloride, serum 92 mmol/L 98-107 carbon dioxide, venous blood 33.6 mmol/L 21.0-32.0 blood glucose 118 mg/dL 65-110 calcium, serum 8.8 mg/dL 8.5-10.1 urea nitrogen, blood 11 mg/dL 7-18 creatinine, serum 1.12 mg/dL 0.55-1.30 Lab Report: CBC-QUEST, COMPREHENSIVE METABOLIC PANEL, LIPID PANEL, Micro ... - Chemistry cholesterol, serum 162 mg/dL 139-820 1221/05/01 HDL cholesterol, serum 68 mg/dL > OR=46 [...] % 11.0-15.0 platelet count 297 THOUSAND/UL 10*3/mm3 258-543 3896/05/01 mean platelet volume 8.9 fL 7.5-12.5 Lab [...] Negative Encounters Code Encounter Date Provider Facility CPT-96311 Level 4 Est. Patient 14:40:54 CDT Bee Rosas [facility] CPT-00408 Level 4 Est. Patient 10:31:15 CDT Jalil Hayes MD -80240 Level 4 Est. Patient 15:07:54 CDT Mariaa Whitman [facility]-35741 Level 3 Est. Patient 20:45:54 ESCALATOR ATTENDANT Mariaa Whitman [facility] CPT-68974 Level 3 Est. Patient 12:16:16 CDT Ana Cristina Vallejo MD PhD [facility] CPT-03411 Level 4 Est. Patient 12:49:21 CDT Ana Cristina Vallejo MD [facility]-28150 Level 4 Est. Patient 23:02:25 CDT Ana Cristina Vallejo MD [facility] CPT-01031 Level 4 Est. Patient 19:26:33 ESCALATOR ATTENDANT Ana Cristina Vallejo MD PhD [facility] CPT-20955 Level 4 Est. Patient 11:28:14 CDT Ana Cristina Vallejo MD PhD [facility] CPT-82898 Level 4 Est. Patient 15:35:46 ESCALATOR ATTENDANT Ana Cristina Vallejo MD PhD [facility] CPT-68948 Level 3 Est. Patient 21:06:39 ESCALATOR ATTENDANT Alden Kim MD [facility] CPT-24159 Level 4 Est. Patient 15:30:54 ESCALATOR ATTENDANT Ana Cristina Vallejo MD PhD [facility] Procedures Code Procedure Name Date Entry Date Standard Description CPT-23740 EKG Trac and Interp - XRAY USE ONLY 10:35:11 CDT 09/11 CPT-25962 Chest 2V Frontal and Lat - XRAY USE ONLY 10:35:11 CDT CPT-G0438 Initial Annual Wellness Exam 14:54:07 CDT CPT-G0009 Administration of Pneumococcal Vaccine 14:44:24 CDT CPT-63708 Pneumovax 23 Injection Injectable 25 MCG/0.5ML 14:44:24 CDT CPT-38777 First Vx - Ix admin for Medicare patients 14:44:24 CDT CPT-43537 Fluzone High-Dose Intramuscular Suspension 14:44:20 CDT CPT-12207 BMP - LAB USE ONLY 12:38:06 CDT CPT-48627 Urine Culture - LAB USE ONLY 16:56:33 CDT CPT-TCMM Transitional Care Mgmt-Moderate 18:08:16 CDT CPT-46112 Bone Density 09:14:12 CDT CPT-000 Give Appropriate Flu Vaccine 14:51:52 CDT CPT-40045 Fluzone High Dose (>=65 yrs.) 15:19:23 CDT CPT-35829 Immunization Single Admin 15:19:23 CDT CPT-64859 Prevnar 13 15:40:03 CDT CPT-97948 Administration single or combination vaccine inc oral 15 :40:03 CDT CPT-28465 Prevnar 13:55:07 CDT CPT-G0008 Administration of Influenza Virus Vaccine 10:49:51 CDT CPT-90620 Fluzone High-Dose Intramuscular Suspension 10:49:51 CDT CPT-74082 Knee 3V 13:31:37 CDT CPT-72225 Bone Density 09:07:05 ESCALATOR ATTENDANT CPT-25205 Nail Avulsion 09:46:05 CDT CPT-61639 Administration single or combination vaccine inc oral 16 :11:54 CDT CPT-01643 Influenza High Dose age 65+ 16:11:54 CDT CPT-89461 Administration single or combination vaccine inc oral 10 :53:15 CDT CPT-98784 Influenza High Dose age 65+ 10:53:15 CDT CPT-77472 Bone Density 14:50:58 ESCALATOR ATTENDANT CPT-49645 Administration single or combination vaccine inc oral 15 :41:20 ESCALATOR ATTENDANT CPT-99011 Zoster Vaccine (Zostavax) 15:41:20 ESCALATOR ATTENDANT CPT-56334 Spec Collection and Handling Fee 11:18:25 ESCALATOR ATTENDANT CPT-09506 Administration single or combination vaccine inc oral 11 :14:20 CDT CPT-95400 Influenza High Dose age 65+ 11:14:20 CDT
--- OUTSIDE RECORDS SUMMARY | 2017-07-18 08:10 | XMS REPORT | Clinical Summary ---
Author Author Admin, DANDRE Organization [facility] Address Unknown Phone Unavailable Allergies, Adverse Reactions, Alerts Allergy Name Reaction Description Start Date Severity Status Provider NKDA Critical Active Mariaa Whitman CORRECTIONS UNIT SUPERVISOR Conditions or Problems Problem Name Problem Code [...] 1 daily, for vitamin D deficiency CHOLECALCIFEROL 13401548353 No Longer Active Radha Jones APRN Active CIPRO 250 MG ORAL TABLET 1 tab BID for 7 days CIPROFLOXACIN HCL 23393085579 No Longer Active Radha Jones APRN Active VITAMIN D3 2000 UNIT ORAL CAPSULE 1 capsule po daily CHOLECALCIFEROL 16914198277 Active HEDY Esquivel Active EQL ONE DAILY WOMENS ORAL TABLET 1 po daily MULTIPLE VITAMINS- CALCIUM 69543405309 Active EHDY Esquivel Active MACROBID 100 MG ORAL CAPSULE 1 tab BID for 5 days NITROFURANTOIN MONOHYD MACRO 71716818183 No Longer Active Deepti Junior LPN Active HYDROCHLOROTHIAZIDE 12.5 MG ORAL CAPSULE 1 pill by mouth daily HYDROCHLOROTHIAZIDE 17015921024 Active Jalil Hayes MD Active RANITIDINE HCL 150 MG ORAL CAPSULE once nightly RANITIDINE HCL 45461994878 Active Jalil Hayes MD Active BENAZEPRIL HCL 40 MG ORAL TABLET 1 daily for blood pressure BENAZEPRIL HCL 49682679731 Active Jalil Hayes MD Active HYDROCHLOROTHIAZIDE 12.5 MG ORAL CAPSULE 1 pill by mouth daily, for blood pressure HYDROCHLOROTHIAZIDE 36353794617 No Longer Active Jalil Hayes MD Active AUGMENTIN 875-125 MG ORAL TABLET 1 po BID x 7 days AMOXICILLIN-POT CLAVULANATE 03230401654 No Longer Active Jalil Hayes MD Active OMEPRAZOLE 40 MG ORAL CAPSULE DELAYED RELEASE 1 po q a.m. OMEPRAZOLE 12514724413 Active Peggy Pardo LPN Active MIRALAX ORAL PACKET Takes daily prn POLYETHYLENE GLYCOL 3350 76681220526 No Longer Active Peggy Pardo LPN Active FLONASE ALLERGY RELIEF 50 MCG/ACT NASAL SUSPENSION One spray each nostril daily for allergies FLUTICASONE PROPIONATE 63821145080 No Longer Active Peggy Pardo LPN Active BENADRYL ALLERGY 25 MG ORAL TABLET NEEDED DIPHENHYDRAMINE HCL 87053712042 No Longer Active Peggy Pardo LPN Active ADVIL 200 MG ORAL TABLET TAKE NEEDED IBUPROFEN 21459891412 No Longer Active Peggy Pardo LPN Active COLACE 100 MG ORAL CAPSULE 1 po BID PRN Constipation DOCUSATE SODIUM 54288827816 No Longer Active Deepti Junior LPN Active ALPRAZOLAM 0.25 MG ORAL TABLET 1/2-1 tablet by mouth twice a day as needed for stress ALPRAZOLAM 34434920245 No Longer Active Deepti Hamlinjaja HORVATH Active ALENDRONATE SODIUM 70 MG ORAL TABLET 1 pill by mouth weekly for osteoporosis ALENDRONATE SODIUM 03272567951 Active Mariaa Laudee LUGO Active E-1000 1000 UNIT ORAL CAPSULE Take one by mouth daily VITAMIN E 64757637535 Active HEDY Esquivel Active OSCAL 500/200 D-3 500-200 MG-UNIT ORAL TABLET Take one by mouth 3 times daily , morning, afternoon and evening.] CALCIUM CARBONATE-VITAMIN D 50367605772 Active HEDY Esquivel Active ASPIRIN 81 MG ORAL TABLET CHEWABLE 1 tablet by mouth daily ASPIRIN 09502689789 Active HEDY Esquivel Active ADULT ASPIRIN EC LOW STRENGTH 81 MG ORAL TABLET DELAYED RELEASE TAKE 1 TAB DAILY ASPIRIN 18977681967 No Longer Active Mariaa Laudee LUGO Active ALENDRONATE SODIUM 70 MG ORAL TABLET TAKE 1 TAB ONCE A WEEK 01/20 ALENDRONATE SODIUM 32245311971 No Longer Active Mariaa Atkinsonbeckie LUGO Active CETIRIZINE HCL 10 MG ORAL TABLET 1 po qd PRN Allergies CETIRIZINE HCL 45132104265 Active HEDY Esquivel Active BACTRIM DS 800-160 MG ORAL TABLET 1 pill by mouth twice daily, for UTI 01/29 SULFAMETHOXAZOLE-TRIMETHOPRIM 90806360808 No Longer Active Ana Cristina Vallejo MD PhD Active CARVEDILOL 25 MG ORAL TABLET 1 pill by mouth twice daily for blood pressure CARVEDILOL 05084306390 Active Aneta Bailey LPN Active SYNTHROID 88 MCG ORAL TABLET 1 tablet by mouth daily for thyroid LEVOTHYROXINE SODIUM 17398096696 Active HEDY Esquivel Active AMOXICILLIN 500 MG ORAL CAPSULE 1 tab by mouth 3 times daily 2011 AMOXICILLIN 00941549045 No Longer Active Alden Kim MD Active CALCIUM 500 MG ORAL TABLET TAKE 3 TABS DAILY CALCIUM 99062907649 No Longer Active Mariaa Whitman CORRECTIONS UNIT SUPERVISOR Active MULTIVITAMINS TABS TAKE 1 TAB DAILY MULTIPLE VITAMIN No Longer Active Anetajeannie Tavarezum ELEVATOR REPAIR MECHANIC Active TYLENOL 325 MG ORAL TABLET NEEDED ACETAMINOPHEN 96148046185 Active Aneta D Leo ELEVATOR REPAIR MECHANIC Active GLUCOSAMINE-CHONDROITIN 500-400 MG ORAL TABLET TAKE 1 TAB DAILY GLUCOSAMINE-CHONDROITIN 14362705585 Active Aneta Tavarezum ELEVATOR REPAIR MECHANIC Active NORVASC 10 MG ORAL TABLET TAKE 1 TAB DAILY AMLODIPINE BESYLATE 51161965548 Active Aneta D Leo ELEVATOR REPAIR MECHANIC Active LOVASTATIN 20 MG ORAL TABLET 1 PO Q HS FOR CHOLESTEROL LOVASTATIN 68126230653 Active HEDY Esquivel Active ADVIL 200 MG ORAL TABLET TAKE NEEDED ADVIL 200 MG ORAL TABLET 051762 IBUPROFEN Inactive ALPRAZOLAM 0.25 MG ORAL TABLET 1/2-1 tablet by mouth twice a day as needed for stress ALPRAZOLAM 0.25 MG ORAL TABLET 663464 ALPRAZOLAM Inactive AMOXICILLIN 500 MG ORAL CAPSULE 1 tab by mouth 3 times daily 2011 AMOXICILLIN 500 MG ORAL CAPSULE 422875 AMOXICILLIN Inactive BACTRIM DS 800-160 MG ORAL TABLET 1 pill by mouth twice daily, for UTI 01/29 BACTRIM DS 800-160 MG ORAL TABLET 821034 SULFAMETHOXAZOLE- TRIMETHOPRIM Inactive CIPRO 250 MG ORAL TABLET 1 tab BID for 7 days CIPRO 250 MG ORAL TABLET 493071 CIPROFLOXACIN HCL Inactive COLACE 100 MG ORAL CAPSULE 1 po BID PRN Constipation COLACE 100 MG ORAL CAPSULE 2763560 DOCUSATE SODIUM Inactive MACROBID 100 MG ORAL CAPSULE 1 tab BID for 5 days MACROBID 100 MG ORAL CAPSULE 5683471 NITROFURANTOIN MONOHYD MACRO Inactive AUGMENTIN 875-125 MG ORAL TABLET 1 po BID x 7 days AUGMENTIN 875-125 MG ORAL TABLET 470655 AMOXICILLIN-POT CLAVULANATE Inactive HYDROCHLOROTHIAZIDE 12.5 MG ORAL CAPSULE 1 pill by mouth daily, for blood pressure HYDROCHLOROTHIAZIDE 12.5 MG ORAL CAPSULE 610113 HYDROCHLOROTHIAZIDE Inactive ADULT ASPIRIN EC LOW STRENGTH 81 MG ORAL TABLET DELAYED RELEASE TAKE 1 TAB DAILY ADULT ASPIRIN EC LOW STRENGTH 81 MG ORAL TABLET DELAYED RELEASE 938488 ASPIRIN Inactive ALENDRONATE SODIUM 70 MG ORAL TABLET TAKE 1 TAB ONCE A WEEK 01/20 ALENDRONATE SODIUM 70 MG ORAL TABLET 635824 ALENDRONATE SODIUM Inactive MIRALAX ORAL PACKET Takes daily prn MIRALAX ORAL PACKET 190368 POLYETHYLENE GLYCOL 3350 Inactive BENADRYL ALLERGY 25 MG ORAL TABLET NEEDED BENADRYL ALLERGY 25 MG ORAL TABLET 0611811 DIPHENHYDRAMINE HCL Inactive VITAMIN D3 2000 UNIT ORAL TABLET 1 daily, for vitamin D deficiency VITAMIN D3 2000 UNIT ORAL TABLET CHOLECALCIFEROL Inactive FLONASE ALLERGY RELIEF 50 MCG/ACT NASAL SUSPENSION One spray each nostril daily for allergies FLONASE ALLERGY RELIEF 50 MCG/ACT NASAL SUSPENSION 8568750 FLUTICASONE PROPIONATE Inactive Advance Directives Directive Description [...] Panel - Chemistry sodium, serum 132 mmol/L 257-895 0771/08/09 potassium, serum 4.2 mmol/L 3.5-5.2 chloride, serum 99 mmol/L 98-107 carbon dioxide, venous blood 24.7 mmol/L 21.0-32.0 blood glucose 119 mg/dL 65-110 calcium, serum 8.5 mg/dL 8.5-10.1 urea nitrogen, blood 14 mg/dL 7-18 creatinine, serum 1.16 mg/dL 0.60-1.30 Lab Report: CBC-QUEST, COMPREHENSIVE METABOLIC PANEL, LIPID PANEL, Micro ... - Chemistry cholesterol, serum 162 mg/dL 804-726 8473/05/01 HDL cholesterol, serum 68 mg/dL > OR=46 [...] % 11.0-15.0 platelet count 297 THOUSAND/UL 10*3/mm3 809-780 8779/05/01 mean platelet volume 8.9 fL 7.5-12.5 Lab [...] 5.0-8.5 Encounters Code Encounter Date Provider Facility [facility]-[id number] Level 3 Est. Patient 13:55:49 CDT Jalil Hayes MD [facility]-13895 Level 3 Est. Patient 14:38:15 CDT Jalil Hayes MD [facility]31565 Level 4 Est. Patient 14:40:54 CDT Bee Rosas [facility]-43683 Level 4 Est. Patient 10:31:15 CDT Jalil Hayes MD [facility]-94010 Level 4 Est. Patient 15:07:54 CDT Mariaa Whitman [facility]-29960 Level 3 Est. Patient 20:45:54 CRAYON GRADER Mariaa Whitman [facility] CPT-13279 Level 3 Est. Patient 12:16:16 CDT Ana Cristina [id number] Level 4 Est. Patient 12:49:21 CDT Ana Cristina Vallejo MD [facility] [place]34046 Level 4 Est. Patient 23:02:25 CDT Ana Cristina Vallejo MD [facility] [place]87557 Level 4 Est. Patient 19:26:33 CRAYON GRADER Ana Cristina Vallejo MD PhD [facility] CPT-52183 Level 4 Est. Patient 11:28:14 CDT Ana Cristina Vallejo MD PhD [facility] CPT-97112 Level 4 Est. Patient 15:35:46 CRAYON GRADER Ana Cristina Vallejo MD PhD [facility] CPT-87475 Level 3 Est. Patient 21:06:39 CRAYON GRADER Alden Kim MD [facility] CPT-02840 Level 4 Est. Patient 15:30:54 CRAYON GRADER Ana Cristina Vallejo MD PhD [facility] Procedures Code Procedure Name Date Entry Date Standard Description CPT-G0439 Subsequent Annual Wellness Exam 11:53:01 CRAYON GRADER CPT-78347 First Vx - Ix admin for Medicare patients 13:35:01 CDT CPT-81283 Fluzone High-Dose Intramuscular Suspension 13:35:01 CDT CPT-TCMM Transitional Care Mgmt-Moderate 14:41:55 CDT CPT-26937 EKG Trac and Interp - XRAY USE ONLY 10:35:11 CDT 09/11 CPT-42342 Chest 2V Frontal and Lat - XRAY USE ONLY 10:35:11 CDT CPT-G0438 Initial Annual Wellness Exam 14:54:07 CDT CPT-G0009 Administration of Pneumococcal Vaccine 14:44:24 CDT CPT-46658 Pneumovax 23 Injection Injectable 25 MCG/0.5ML 14:44:24 CDT CPT-64644 First Vx - Ix admin for Medicare patients 14:44:24 CDT CPT-41344 Fluzone High-Dose Intramuscular Suspension 14:44:20 CDT CPT-50889 BMP - LAB USE ONLY 12:38:06 CDT CPT-54355 Urine Culture - LAB USE ONLY 16:56:33 CDT CPT-TCMM Transitional Care Mgmt-Moderate 18:08:16 CDT CPT-26128 Bone Density 09:14:12 CDT CPT-000 Give Appropriate Flu Vaccine 14:51:52 CDT CPT-63830 Fluzone High Dose (>=65 yrs.) 15:19:23 CDT CPT-08451 Immunization Single Admin 15:19:23 CDT CPT-40822 Prevnar 13 15:40:03 CDT CPT-62390 Administration single or combination vaccine inc oral 15 :40:03 CDT CPT-20355 Prevnar 13 13:55:07 CDT CPT-G0008 Administration of Influenza Virus Vaccine 10:49:51 CDT CPT-48845 Fluzone High-Dose Intramuscular Suspension 10:49:51 CDT CPT-07494 Knee 3V 13:31:37 CDT CPT-14934 Bone Density 09:07:05 CRAYON GRADER CPT-32469 Nail Avulsion 09:46:05 CDT CPT-01069 Administration single or combination vaccine inc oral 16 :11:54 CDT CPT-71352 Influenza High Dose age 65+ 16:11:54 CDT CPT-88611 Administration single or combination vaccine inc oral 10 :53:15 CDT CPT-48381 Influenza High Dose age 65+ 10:53:15 CDT CPT-80092 Bone Density 14:50:58 CRAYON GRADER CPT-49349 Administration single or combination vaccine inc oral 15 :41:20 CRAYON GRADER CPT-98390 Zoster Vaccine (Zostavax) 15:41:20 CRAYON GRADER CPT-20081 Spec Collection and Handling Fee 11:18:25 CRAYON GRADER CPT-92999 Administration single or combination vaccine inc oral 11 :14:20 CDT CPT-32701 Influenza High Dose age 65+ 11:14:20 CDT
--- OUTSIDE RECORDS SUMMARY | 2017-07-18 08:11 | XMS REPORT | Clinical Summary ---
Author Author Admin, DANDRE Organization [facility] Address Unknown Phone Unavailable Allergies, Adverse Reactions, Alerts Allergy Name Reaction Description Start Date Severity Status Provider NKDA Critical Active Mariaa Whitman SHELLS INSPECTOR Conditions or Problems Problem Name Problem Code Onset Date Status Entry Date Provider Comment Standard Description Annotate ROUTINE GYNECOLOGICAL EXAMINATION V72.31 Resolved Ana Cristina Vallejo MD PhD Routine gynecological examination MENOPAUSE 627.2 Ruled out Ana Cristina Vallejo MD PhD Symptomatic menopausal or female climacteric states MENOPAUSE 627.2 Active Brianda Reis [facility] Symptomatic menopausal or female climacteric states DIVERTICULOSIS, [...] Sciatica Sciatica, left 724.3 Active Mariaa Whitman SHELLS INSPECTOR Sciatica Urinary bladder pain 788.99 Resolved Jalil [...] Hayes MD Other dyspnea and respiratory abnormality ROUTINE GYNECOLOGICAL EXAMINATION ICD-V72.31 Inactive Ana Cristina [...] 1 po BID PRN Constipation DOCUSATE SODIUM 75409883667 No Longer Active Deepti Madl SOFT WORK CIGAR MACHINE OPERATOR Active ALPRAZOLAM 0.25 MG TAB 1/2-1 tablet by mouth twice a day as needed for stress ALPRAZOLAM 87921173225 No Longer Active Deepti Madl SOFT WORK CIGAR MACHINE OPERATOR Active MIRALAX ORAL PACK Takes daily prn POLYETHYLENE GLYCOL 3350 78134207303 Active Mariaa Whitman SHELLS INSPECTOR Active ALENDRONATE SODIUM 70 MG TABS 1 pill by mouth weekly for osteoporosis ALENDRONATE SODIUM 52399711328 Active Brianda Reis [facility] Active E-1000 1000 UNIT ORAL CAPS Take one by mouth daily VITAMIN E 69938288662 [facility] OSCAL 500/200 D-3 500-200 MG-UNIT ORAL TABS Take one by mouth 3 times daily, morning, afternoon and evening.] CALCIUM CARBONATE-VITAMIN D 13211746058 [facility] Active ASPIRIN 81 MG CHEW TAB 1 tablet by mouth daily ASPIRIN 78836980676 Active Brianda [facility] Active ADULT ASPIRIN EC LOW STRENGTH 81 MG TBEC TAKE 1 TAB DAILY ASPIRIN 57188887924 No Longer Active Mariaa Whitman SHELLS INSPECTOR Active ALENDRONATE SODIUM 70 MG TABS TAKE 1 TAB ONCE A WEEK ALENDRONATE SODIUM 52886744383 No Longer Active Mariaa Atkinsonum SHELLS INSPECTOR Active FLONASE ALLERGY RELIEF 50 MCG/ACT NASAL SUSP One spray each nostril daily for allergies FLUTICASONE PROPIONATE 35777612475 Active Mariaa Atkinsonum SHELLS INSPECTOR Active CETIRIZINE HCL 10 MG ORAL TABS 1 po qd PRN Allergies CETIRIZINE HCL 05756428185 Active Mariaadomenico Whitman APRN Active BACTRIM DS 800-160 MG TABS 1 pill by mouth twice daily, for UTI SULFAMETHOXAZOLE-TRIMETHOPRIM 23607567813 No Longer Active Ana Cristina Vallejo MD PhD Active HYDROCHLOROTHIAZIDE 12.5 MG CAPS 1 pill by mouth daily, for blood pressure HYDROCHLOROTHIAZIDE 49649631555 Active Mariaa Whitman APRN Active CARVEDILOL 25 MG TABS 1 pill by mouth twice daily for blood pressure CARVEDILOL 99855741497 Active Mariaadomenico Whitman APRN Active SYNTHROID 0.088 MG TAB 1 tablet by mouth daily for thyroid LEVOTHYROXINE SODIUM 80378485592 Active HEDY Esquivel Active AMOXICILLIN 500 MG CAP 1 tab by mouth 3 times daily AMOXICILLIN 77421710092 No Longer Active Alden Kim MD Active [facility] VITAMIN D3 1000 UNIT CAPS TAKE 2 CAP DAILY CHOLECALCIFEROL Active Ana Cristina Vallejo MD PhD Active CALCIUM 500 MG TABS TAKE 3 TABS DAILY CALCIUM 77513339984 No Longer Active Mariaa Whitman APRN Active MULTIVITAMINS TABS TAKE 1 TAB DAILY MULTIPLE VITAMIN Active Aneta D Leo SOFT WORK CIGAR MACHINE OPERATOR Active BENADRYL ALLERGY 25 MG TABS NEEDED DIPHENHYDRAMINE HCL 50162678885 Active Aneta D Leo SOFT WORK CIGAR MACHINE OPERATOR Active TYLENOL 325 MG TABS NEEDED ACETAMINOPHEN 88822476874 Active Aneta Singh Leo SOFT WORK CIGAR MACHINE OPERATOR Active ADVIL 200 MG TABS TAKE NEEDED IBUPROFEN 12186482255 Active Aneta D Leo SOFT WORK CIGAR MACHINE OPERATOR Active GLUCOSAMINE-CHONDROITIN 500-400 MG TABS TAKE 1 TAB DAILY GLUCOSAMINE-CHONDROITIN 89252034760 Active Mariaa Whitman APRN Active NORVASC 10 MG TABS TAKE 1 TAB DAILY AMLODIPINE BESYLATE 69515226607 Active Mariaa Whitman APRN Active BENAZEPRIL HCL 40 MG TABS 1 PO BID BENAZEPRIL HCL 08610667308 Active Risa Calderon, RMA Active LOVASTATIN 20 MG TABS 1 PO Q HS FOR CHOLESTEROL LOVASTATIN 99730702198 Active HEDY Esquivel Active RANITIDINE HCL 150 MG CAPS 1 PO Q 12 HRS RANITIDINE HCL 00219443827 Active Mariaa Whitman APRN Active ALENDRONATE SODIUM 70 MG TABS TAKE 1 TAB ONCE A WEEK ALENDRONATE SODIUM 70 MG TABS 139658 ALENDRONATE SODIUM Inactive ADULT ASPIRIN EC LOW STRENGTH 81 MG TBEC TAKE 1 TAB DAILY ADULT ASPIRIN EC LOW STRENGTH 81 MG TBEC 928625 ASPIRIN Inactive ALPRAZOLAM 0.25 MG TAB 1/2-1 tablet by mouth twice a day as needed for stress ALPRAZOLAM 0.25 MG TAB 051836 ALPRAZOLAM Inactive COLACE 100 MG CAP 1 po BID PRN Constipation COLACE 100 MG CAP 6350598 DOCUSATE SODIUM Inactive AMOXICILLIN 500 MG CAP 1 tab by mouth 3 times daily AMOXICILLIN 500 MG CAP 968849 AMOXICILLIN Inactive BACTRIM DS 800-160 MG TABS 1 pill by mouth twice daily, for UTI BACTRIM DS 800-160 MG TABS 642719 SULFAMETHOXAZOLE-TRIMETHOPRIM Inactive Advance Directives Directive Description Start [...] Range Description blood pressure, diastolic - 8462-4 54 mm[Hg] [...] Panel - Chemistry sodium, serum 130 mmol/L 959-375 7647/10/19 potassium, serum 3.5 mmol/L 3.5-5.2 chloride, serum 92 mmol/L 98-107 carbon dioxide, venous blood 33.6 mmol/L 21.0-32.0 blood glucose 118 mg/dL 65-110 calcium, serum 8.8 mg/dL 8.5-10.1 urea nitrogen, blood 11 mg/dL 7-18 creatinine, serum 1.12 mg/dL 0.55-1.30 Lab Report: UADIP W/MICRO, AUTO - Chemistry [...] 5.0-8.5 Encounters Code Encounter Date Provider Facility CPT-37906 Level 4 Est. Patient 10:31:15 CDT Jalil Hayes MD [facility]-39672 Level 4 Est. Patient 15:07:54 CDT Mariaa Whitman [facility]-61455 Level 3 Est. Patient 20:45:54 TRAVEL ATTENDANTS Mariaa Whitman [facility] CPT-27424 Level 3 Est. Patient 12:16:16 CDT Ana Cristina Vallejo MD [facility]-78147 Level 4 Est. Patient 12:49:21 CDT Ana Cristina Vallejo MD [facility] CPT-05812 Level 4 Est. Patient 23:02:25 CDT Ana Cristina Vallejo MD [facility]-65667 Level 4 Est. Patient 19:26:33 TRAVEL ATTENDANTS Ana Cristina Vallejo MD [facility]-50742 Level 4 Est. Patient 11:28:14 CDT Ana Cristina Vallejo MD [facility]-01615 Level 4 Est. Patient 15:35:46 TRAVEL ATTENDANTS Ana Cristina Vallejo MD [facility]-86853 Level 3 Est. Patient 21:06:39 TRAVEL ATTENDANTS Alden Kim MD [facility]-06929 Level 4 Est. Patient 15:30:54 [employer]VEL ATTENDANTS Ana Cristina Vallejo MD [facility] Procedures Code Procedure Name Date Entry Date Standard Description CPT-30557 EKG Trac and Interp - XRAY USE ONLY 10:35:11 CDT 09/11 CPT-36214 Chest 2V Frontal and Lat - XRAY USE ONLY 10:35:11 CDT CPT-G0438 Initial Annual Wellness Exam 14:54:07 CDT CPT-G0009 Administration of Pneumococcal Vaccine 14:44:24 CDT CPT-91330 Pneumovax 23 Injection Injectable 25 MCG/0.5ML 14:44:24 CDT CPT-53704 First Vx - Ix admin for Medicare patients 14:44:24 CDT CPT-17360 Fluzone High-Dose Intramuscular Suspension 14:44:20 CDT CPT-13220 BMP - LAB USE ONLY 12:38:06 CDT CPT-41757 Urine Culture - LAB USE ONLY 16:56:33 CDT CPT-TCMM Transitional Care Mgmt-Moderate 18:08:16 CDT CPT-96710 Bone Density 09:14:12 CDT CPT-000 Give Appropriate Flu Vaccine 14:51:52 CDT CPT-37505 Fluzone High Dose (>=65 yrs.) 15:19:23 CDT CPT-13529 Immunization Single Admin 15:19:23 CDT CPT-85204 Prevnar 13 15:40:03 CDT CPT-24315 Administration single or combination vaccine inc oral 15 :40:03 CDT CPT-44918 Prevnar 13 13:55:07 CDT CPT-G0008 Administration of Influenza Virus Vaccine 10:49:51 CDT CPT-88855 Fluzone High-Dose Intramuscular Suspension 10:49:51 CDT CPT-41085 Knee 3V 13:31:37 CDT CPT-14561 Bone Density 09:07:05 TRAVEL ATTENDANTS CPT-24778 Nail Avulsion 09:46:05 CDT CPT-86040 Administration single or combination vaccine inc oral 16 :11:54 CDT CPT-34868 Influenza High Dose age 65+ 16:11:54 CDT CPT-55313 Administration single or combination vaccine inc oral 10 :53:15 CDT CPT-50672 Influenza High Dose age 65+ 10:53:15 CDT CPT-59261 Bone Density 14:50:58 [employer]VEL ATTENDANTS CPT-84334 Administration single or combination vaccine inc oral 15 :41:20 TRAVEL ATTENDANTS CPT-08964 Zoster Vaccine (Zostavax) 15:41:20 TRAVEL ATTENDANTS CPT-58345 Spec Collection and Handling Fee 11:18:25 TRAVEL ATTENDANTS CPT-81927 Administration single or combination vaccine inc oral 11 :14:20 CDT CPT-00271 Influenza High Dose age 65+ 11:14:20 CDT
--- OUTSIDE RECORDS SUMMARY | 2017-07-18 08:11 | XMS REPORT | Clinical Summary ---
Author Author Admin, DANDRE Organization [facility] [email or web address] Address Unknown Phone Unavailable Allergies, Adverse Reactions, Alerts Allergy Name Reaction Description Start Date Severity Status Provider NKDA Critical Active Mariaa Whitman BRANCHER Conditions or Problems Problem Name Problem Code Onset Date Status Entry Date Provider Comment Standard Description Annotate ROUTINE GYNECOLOGICAL EXAMINATION V72.31 Resolved Ana Cristina Vallejo MD PhD Routine gynecological examination MENOPAUSE 627.2 Ruled out Ana Cristina Vallejo MD PhD Symptomatic menopausal or female climacteric states MENOPAUSE 627.2 Active Brianda Reis [facility] Symptomatic menopausal or female climacteric [...] MD Dysuria Forgetfulness 780.99 Active Radha Jones BRANCHER Other general symptoms Unsteady gait 781.2 Active [...] 1 daily for 5 days 05/25 PREDNISONE 65239901033 Active Deepti Junior LPN Active VITAMIN D3 2000 UNIT ORAL TABLET 1 daily, for vitamin D deficiency CHOLECALCIFEROL 97182641680 No Longer Active Radha Jones APRN Active CIPRO 250 MG ORAL TABLET 1 tab BID for 7 days CIPROFLOXACIN HCL 68578488324 No Longer Active Radha Jones APRN Active VITAMIN D3 2000 UNIT ORAL CAPSULE 1 capsule po daily CHOLECALCIFEROL 69268957576 Active Aneta D Leo YULIET Active EQL ONE DAILY WOMENS ORAL TABLET 1 po daily MULTIPLE VITAMINS- CALCIUM 34155181509 Active Aneta Tavarezum YULIET Active MACROBID 100 MG ORAL CAPSULE 1 tab BID for 5 days NITROFURANTOIN MONOHYD MACRO 53055487581 No Longer Active Deepti Junior LPN Active HYDROCHLOROTHIAZIDE 12.5 MG ORAL CAPSULE 1 pill by mouth daily HYDROCHLOROTHIAZIDE 11654841934 Active Jalil Hayes MD Active RANITIDINE HCL 150 MG ORAL CAPSULE once nightly RANITIDINE HCL 79819041863 Active Jalil Hayes MD Active BENAZEPRIL HCL 40 MG ORAL TABLET 1 daily for blood pressure BENAZEPRIL HCL 89125615412 Active Jalil Hayes MD Active HYDROCHLOROTHIAZIDE 12.5 MG ORAL CAPSULE 1 pill by mouth daily, for blood pressure HYDROCHLOROTHIAZIDE 58725598661 No Longer Active Jalil Hayes MD Active AUGMENTIN 875-125 MG ORAL TABLET 1 po BID x 7 days AMOXICILLIN-POT CLAVULANATE 59961558331 No Longer Active Jalil Hayes MD Active OMEPRAZOLE 40 MG ORAL CAPSULE DELAYED RELEASE 1 po q a.m. OMEPRAZOLE 97686012804 Active HEDY Esquivel Active MIRALAX ORAL PACKET Takes daily prn POLYETHYLENE GLYCOL 3350 09633587847 No Longer Active Peggy Pardo LPN Active FLONASE ALLERGY RELIEF 50 MCG/ACT NASAL SUSPENSION One spray each nostril daily for allergies FLUTICASONE PROPIONATE 44021872639 No Longer Active Peggy Pardo LPN Active BENADRYL ALLERGY 25 MG ORAL TABLET NEEDED DIPHENHYDRAMINE HCL 85485791329 No Longer Active Peggy Pardo LPN Active ADVIL 200 MG ORAL TABLET TAKE NEEDED IBUPROFEN 12650645023 No Longer Active Peggy Pardo LPN Active COLACE 100 MG ORAL CAPSULE 1 po BID PRN Constipation DOCUSATE SODIUM 56896742543 No Longer Active Deepti Junior LPN Active ALPRAZOLAM 0.25 MG ORAL TABLET 1/2-1 tablet by mouth twice a day as needed for stress ALPRAZOLAM 70908068617 No Longer Active Deepti Junior LPN Active ALENDRONATE SODIUM 70 MG ORAL TABLET 1 pill by mouth weekly for osteoporosis ALENDRONATE SODIUM 15422051304 Active Mariaa Whitman APRN Active E-1000 1000 UNIT ORAL CAPSULE Take one by mouth daily VITAMIN E 68230526443 Active Aneta Bailey LPN Active OSCAL 500/200 D-3 500-200 MG-UNIT ORAL TABLET Take one by mouth 3 times daily , morning, afternoon and evening.] CALCIUM CARBONATE-VITAMIN D 84133593465 Active Aneta Bailey LPN Active ASPIRIN 81 MG ORAL TABLET CHEWABLE 1 tablet by mouth daily ASPIRIN 17961827175 Active Aneta Bailey LPN Active ADULT ASPIRIN EC LOW STRENGTH 81 MG ORAL TABLET DELAYED RELEASE TAKE 1 TAB DAILY ASPIRIN 01834209904 No Longer Active Mariaa Whitman APRN Active ALENDRONATE SODIUM 70 MG ORAL TABLET TAKE 1 TAB ONCE A WEEK 01/20 ALENDRONATE SODIUM 82541291751 No Longer Active Mariaa Whitman APRN Active CETIRIZINE HCL 10 MG ORAL TABLET 1 po qd PRN Allergies CETIRIZINE HCL 94117195251 Active HEDY Esquivel Active BACTRIM DS 800-160 MG ORAL TABLET 1 pill by mouth twice daily, for UTI 01/29 SULFAMETHOXAZOLE-TRIMETHOPRIM 01969343900 No Longer Active Ana Cristina Vallejo MD PhD Active CARVEDILOL 25 MG ORAL TABLET 1 pill by mouth twice daily for blood pressure CARVEDILOL 62815987687 Active Aneta Tavarezum [employer] ANALYST Active SYNTHROID 88 MCG ORAL TABLET 1 tablet by mouth daily for thyroid LEVOTHYROXINE SODIUM 07250141430 Active HEDY Esquivel Active AMOXICILLIN 500 MG ORAL CAPSULE 1 tab by mouth 3 times daily 2011 AMOXICILLIN 61133106392 No Longer Active Alden Kim MD Active CALCIUM 500 MG ORAL TABLET TAKE 3 TABS DAILY CALCIUM 31559963766 No Longer Active Mariaa Antonette BRANCHER Active MULTIVITAMINS TABS TAKE 1 TAB DAILY MULTIPLE VITAMIN No Longer Active Aneta Tavarezum SAP SD ANALYST Active TYLENOL 325 MG ORAL TABLET NEEDED ACETAMINOPHEN 70672874493 Active Aneta Tavarezum SAP SD ANALYST Active GLUCOSAMINE-CHONDROITIN 500-400 MG ORAL TABLET TAKE 1 TAB DAILY GLUCOSAMINE-CHONDROITIN 25857902285 Active Aneta Tavarezum SAP SD ANALYST Active NORVASC 10 MG ORAL TABLET TAKE 1 TAB DAILY AMLODIPINE BESYLATE 84214050430 Active Aneta Tavarezum SAP SD ANALYST Active LOVASTATIN 20 MG ORAL TABLET 1 PO Q HS FOR CHOLESTEROL LOVASTATIN 45091335834 Active HEDY Esquivel Active ALENDRONATE SODIUM 70 MG ORAL TABLET TAKE 1 TAB ONCE A WEEK 01/20 ALENDRONATE SODIUM 70 MG ORAL TABLET 977559 ALENDRONATE SODIUM Inactive ADULT ASPIRIN EC LOW STRENGTH 81 MG ORAL TABLET DELAYED RELEASE TAKE 1 TAB DAILY ADULT ASPIRIN EC LOW STRENGTH 81 MG ORAL TABLET DELAYED RELEASE 724461 ASPIRIN Inactive ALPRAZOLAM 0.25 MG ORAL TABLET 1/2-1 tablet by mouth twice a day as needed for stress ALPRAZOLAM 0.25 MG ORAL TABLET 978674 ALPRAZOLAM Inactive COLACE 100 MG ORAL CAPSULE 1 po BID PRN Constipation COLACE 100 MG ORAL CAPSULE 4947602 DOCUSATE SODIUM Inactive ADVIL 200 MG ORAL TABLET TAKE NEEDED ADVIL 200 MG ORAL TABLET 607611 IBUPROFEN Inactive BENADRYL ALLERGY 25 MG ORAL TABLET NEEDED BENADRYL ALLERGY 25 MG ORAL TABLET 3236717 DIPHENHYDRAMINE HCL Inactive FLONASE ALLERGY RELIEF 50 MCG/ACT NASAL SUSPENSION One spray each nostril daily for allergies FLONASE ALLERGY RELIEF 50 MCG/ACT NASAL SUSPENSION 9112445 FLUTICASONE PROPIONATE Inactive MIRALAX ORAL PACKET Takes daily prn MIRALAX ORAL PACKET 755592 POLYETHYLENE GLYCOL 3350 Inactive AUGMENTIN 875-125 MG ORAL TABLET 1 po BID x 7 days AUGMENTIN 875-125 MG ORAL TABLET 370693 AMOXICILLIN-POT CLAVULANATE Inactive HYDROCHLOROTHIAZIDE 12.5 MG ORAL CAPSULE 1 pill by mouth daily, for blood pressure HYDROCHLOROTHIAZIDE 12.5 MG ORAL CAPSULE 946147 HYDROCHLOROTHIAZIDE Inactive CIPRO 250 MG ORAL TABLET 1 tab BID for 7 days CIPRO 250 MG ORAL TABLET 009003 CIPROFLOXACIN HCL Inactive VITAMIN D3 2000 UNIT ORAL TABLET 1 daily, for vitamin D deficiency VITAMIN D3 2000 UNIT ORAL TABLET CHOLECALCIFEROL Inactive AMOXICILLIN 500 MG ORAL CAPSULE 1 tab by mouth 3 times daily 2011 AMOXICILLIN 500 MG ORAL CAPSULE 072356 AMOXICILLIN Inactive BACTRIM DS 800-160 MG ORAL TABLET 1 pill by mouth twice daily, for UTI 01/29 BACTRIM DS 800-160 MG ORAL TABLET 748254 SULFAMETHOXAZOLE- TRIMETHOPRIM Inactive MACROBID 100 MG ORAL CAPSULE 1 tab BID for 5 days MACROBID 100 MG ORAL CAPSULE 3349047 NITROFURANTOIN MONOHYD MACRO Inactive Advance Directives Directive [...] Panel - Chemistry sodium, serum 132 mmol/L 961-573 8135/08/09 potassium, serum 4.2 mmol/L 3.5-5.2 chloride, serum 99 mmol/L 98-107 carbon dioxide, venous blood 24.7 mmol/L 21.0-32.0 blood glucose 119 mg/dL 65-110 calcium, serum 8.5 mg/dL 8.5-10.1 urea nitrogen, blood 14 mg/dL 7-18 creatinine, serum 1.16 mg/dL 0.60-1.30 Lab Report: CBC-QUEST, COMPREHENSIVE METABOLIC PANEL, LIPID PANEL, Micro ... - Chemistry cholesterol, serum 162 mg/dL 149-081 6758/05/01 HDL cholesterol, serum 68 mg/dL > OR=46 [...] % 11.0-15.0 platelet count 297 THOUSAND/UL 10*3/mm3 138-609 1827/05/01 mean platelet volume 8.9 fL 7.5-12.5 Lab Report: CBC-QUEST, COMPREHENSIVE METABOLIC PANEL, LIPID PANEL, Micro ... - Urinalysis microalbumin/total urine volume <0.2 mg/dL mg/L microalbumin/creatinine ratio, urine NOTE mcg/mg creat mg/L <30 Lab Report: Erythrocyte Sed Rate, Thyroid Stimulating Hormone (L), Basic ... - Chemistry TSH 1.13 m[iU]/mL 0.36-3.74 sodium, serum 139 mmol/L 487-372 8575/01/10 potassium, serum 3.8 mmol/L 3.5-5.2 chloride, serum [...] 5.0-8.5 Encounters Code Encounter Date Provider Facility [facility]-[id number] Level 4 Est. Patient 12:35:27 HOSTESS CASHIER Jalil Hayes MD [facility]19357 Level 3 Est. Patient 13:55:49 CDT Jalil Hayes MD [facility]86484 Level 3 Est. Patient 14:38:15 CDT Jalil Hayes MD [facility]78107 Level 4 Est. Patient 14:40:54 CDT Bee Rosas [facility]25859 Level 4 Est. Patient 10:31:15 CDT Jalil Hayes MD [facility]69106 Level 4 Est. Patient 15:07:54 CDT Mariaa Whitman [facility]36276 Level 3 Est. Patient 20:45:54 HOSTESS CASHIER Mariaa Whitman [facility]-79436 Level 3 Est. Patient 12:16:16 CDT Ana Cristina Vallejo MD [facility]94666 Level 4 Est. Patient 12:49:21 CDT Ana Cristina Vallejo MD [facility]51073 Level 4 Est. Patient 23:02:25 CDT Ana Cristina Vallejo MD [facility]51718 Level 4 Est. Patient 19:26:33 HOSTESS CASHIER Ana Cristina Vallejo MD [facility]55176 Level 4 Est. Patient 11:28:14 CDT Ana Cristina Vallejo MD PhD [facility] CPT-78970 Level 4 Est. Patient 15:35:46 HOSTESS CASHIER Ana Cristina Vallejo MD PhD [facility] CPT-66226 Level 3 Est. Patient 21:06:39 HOSTESS CASHIER Alden Kim MD [facility] CPT-72935 Level 4 Est. Patient 15:30:54 HOSTESS CASHIER Ana Cristina Vallejo MD PhD [facility] Procedures Code Procedure Name Date Entry Date Standard Description CPT-G0439 Subsequent Annual Wellness Exam 11:53:01 HOSTESS CASHIER CPT-23574 First Vx - Ix admin for Medicare patients 13:35:01 CDT CPT-50625 Fluzone High-Dose Intramuscular Suspension 13:35:01 CDT CPT-TCMM Transitional Care Mgmt-Moderate 14:41:55 CDT CPT-13477 EKG Trac and Interp - XRAY USE ONLY 10:35:11 CDT 09/11 CPT-56290 Chest 2V Frontal and Lat - XRAY USE ONLY 10:35:11 CDT CPT-G0438 Initial Annual Wellness Exam 14:54:07 CDT CPT-G0009 Administration of Pneumococcal Vaccine 14:44:24 CDT CPT-79002 Pneumovax 23 Injection Injectable 25 MCG/0.5ML 14:44:24 CDT CPT-31958 First Vx - Ix admin for Medicare patients 14:44:24 CDT CPT-08870 Fluzone High-Dose Intramuscular Suspension 14:44:20 CDT CPT-97322 BMP - LAB USE ONLY 12:38:06 CDT CPT-37263 Urine Culture - LAB USE ONLY 16:56:33 CDT CPT-TCMM Transitional Care Mgmt-Moderate 18:08:16 CDT CPT-88786 Bone Density 09:14:12 CDT CPT-000 Give Appropriate Flu Vaccine 14:51:52 CDT CPT-73804 Fluzone High Dose (>=65 yrs.) 15:19:23 CDT CPT-25112 Immunization Single Admin 15:19:23 CDT CPT-24848 Prevnar 13 15:40:03 CDT CPT-25008 Administration single or combination vaccine inc oral 15 :40:03 CDT CPT-60639 Prevnar 13 13:55:07 CDT CPT-G0008 Administration of Influenza Virus Vaccine 10:49:51 CDT CPT-37195 Fluzone High-Dose Intramuscular Suspension 10:49:51 CDT CPT-75426 Knee 3V 13:31:37 CDT CPT-43919 Bone Density 09:07:05 HOSTESS CASHIER CPT-95945 Nail Avulsion 09:46:05 CDT CPT-71264 Administration single or combination vaccine inc oral 16 :11:54 CDT CPT-65103 Influenza High Dose age 65+ 16:11:54 CDT CPT-95771 Administration single or combination vaccine inc oral 10 :53:15 CDT CPT-76219 Influenza High Dose age 65+ 10:53:15 CDT CPT-03974 Bone Density 14:50:58 HOSTESS CASHIER CPT-50758 Administration single or combination vaccine inc oral 15 :41:20 HOSTESS CASHIER CPT-83546 Zoster Vaccine (Zostavax) 15:41:20 HOSTESS CASHIER CPT-32528 Spec Collection and Handling Fee 11:18:25 HOSTESS CASHIER CPT-55420 Administration single or combination vaccine inc oral 11 :14:20 CDT CPT-95375 Influenza High Dose age 65+ 11:14:20 CDT
--- OUTSIDE RECORDS SUMMARY | 2017-07-18 08:12 | XMS REPORT | Clinical Summary ---
Author Author Admin, DANDRE Organization [facility] [employer] Address Unknown Phone Unavailable Allergies, Adverse Reactions, Alerts Allergy Name Reaction Description Start Date Severity Status Provider NKDA Critical Active Mariaa Whitman [facility] CLINICAL NURSE SPECIALIST Conditions or Problems Problem Name Problem Code Onset Date Status Entry Date Provider Comment Standard Description Annotate ROUTINE GYNECOLOGICAL EXAMINATION V72.31 Resolved Ana Cristina Vallejo MD PhD Routine gynecological examination MENOPAUSE 627.2 Ruled out Ana Cristina Vlalejo MD PhD Symptomatic menopausal or female climacteric states MENOPAUSE 627.2 Active Brianda Reis [facility] Symptomatic menopausal or female climacteric states DIVERTICULOSIS, [...] Generic Name NDC Status Provider Patient Instruction MACROBID 100 MG ORAL CAPS 1 tab BID for 5 days NITROFURANTOIN MONOHYD MACRO 15731192160 Active Deepti Junior LPN Active HYDROCHLOROTHIAZIDE 12.5 MG CAPS 1 pill by mouth daily HYDROCHLOROTHIAZIDE 24695615415 Active Jalil Hayes MD Active RANITIDINE HCL 150 MG CAPS once nightly RANITIDINE HCL 52466802426 Active Jalil Hayes MD Active BENAZEPRIL HCL 40 MG TABS 1 daily for blood pressure BENAZEPRIL HCL 89009319366 Active Jalil Hayes MD Active HYDROCHLOROTHIAZIDE 12.5 MG CAPS 1 pill by mouth daily, for blood pressure HYDROCHLOROTHIAZIDE 54030022042 No Longer Active Jalil Hayes MD Active AUGMENTIN 875-125 MG TAB 1 po BID x 7 days AMOXICILLIN-POT CLAVULANATE 08127776162 No Longer Active Jalil Hayes MD Active OMEPRAZOLE 40 MG CPDR 1 po q a.m. OMEPRAZOLE 01100891432 Active Peggy Pardo LPN Active MIRALAX ORAL PACK Takes daily prn POLYETHYLENE GLYCOL 3350 13212938564 No Longer Active Peggy Pardo LPN Active FLONASE ALLERGY RELIEF 50 MCG/ACT NASAL SUSP One spray each nostril daily for allergies FLUTICASONE PROPIONATE 59479005184 No Longer Active Peggy Pardo LPN Active BENADRYL ALLERGY 25 MG TABS NEEDED DIPHENHYDRAMINE HCL 13848942482 No Longer Active Peggy Pardo LPN Active ADVIL 200 MG TABS TAKE NEEDED IBUPROFEN 58680355633 No Longer Active Peggy Pardo LPN Active COLACE 100 MG CAP 1 po BID PRN Constipation DOCUSATE SODIUM 63628537759 No Longer Active Deepti Junior LPN Active ALPRAZOLAM 0.25 MG TAB 1/2-1 tablet by mouth twice a day as needed for stress ALPRAZOLAM 05709606274 No Longer Active Deepti Junior LPN Active ALENDRONATE SODIUM 70 MG TABS 1 pill by mouth weekly for osteoporosis ALENDRONATE SODIUM 54531047520 Active Brianda Bergerford [facility] Active E-1000 1000 UNIT ORAL CAPS Take one by mouth daily VITAMIN E 25157072856 Active Brianda Bergerford [facility] Active OSCAL 500/200 D-3 500-200 MG-UNIT ORAL TABS Take one by mouth 3 times daily, morning, afternoon and evening.] CALCIUM CARBONATE-VITAMIN D 49381360712 Active Brianda Chato [facility] Active ASPIRIN 81 MG CHEW TAB 1 tablet by mouth daily ASPIRIN 32279746957 Active Brianda Bergerford [facility] Active ADULT ASPIRIN EC LOW STRENGTH 81 MG TBEC TAKE 1 TAB DAILY ASPIRIN 01337194449 No Longer Active Mariaa Whitman APRN Active ALENDRONATE SODIUM 70 MG TABS TAKE 1 TAB ONCE A WEEK ALENDRONATE SODIUM 14584105339 No Longer Active Mariaa Whitman APRN Active CETIRIZINE HCL 10 MG ORAL TABS 1 po qd PRN Allergies CETIRIZINE HCL 38993665431 Active HEDY Esquivel Active BACTRIM DS 800-160 MG TABS 1 pill by mouth twice daily, for UTI SULFAMETHOXAZOLE-TRIMETHOPRIM 84228876698 No Longer Active Ana Cristina Vallejo MD PhD Active CARVEDILOL 25 MG TABS 1 pill by mouth twice daily for blood pressure CARVEDILOL 91608744550 Active HEDY Esquivel Active SYNTHROID 0.088 MG TAB 1 tablet by mouth daily for thyroid LEVOTHYROXINE SODIUM 43853531232 Active HEDY Esquivel Active AMOXICILLIN 500 MG CAP 1 tab by mouth 3 times daily AMOXICILLIN 03783761463 No Longer Active Alden Kim MD Active [facility] VITAMIN D3 1000 UNIT CAPS TAKE 2 CAP DAILY CHOLECALCIFEROL Active Ana Cristina Vallejo MD PhD Active CALCIUM 500 MG TABS TAKE 3 TABS DAILY CALCIUM 30406130923 No Longer Active Mariaa Whitman APRN Active MULTIVITAMINS TABS TAKE 1 TAB DAILY MULTIPLE VITAMIN Active Aneta Tavarezum SECURITY TEAM LEAD Active TYLENOL 325 MG TABS NEEDED ACETAMINOPHEN 30990146813 Active Aneta Snigh Leo SECURITY TEAM LEAD Active GLUCOSAMINE-CHONDROITIN 500-400 MG TABS TAKE 1 TAB DAILY GLUCOSAMINE-CHONDROITIN 79317143789 Active Mariaa Whitman APRN Active NORVASC 10 MG TABS TAKE 1 TAB DAILY AMLODIPINE BESYLATE 24994235631 Active HEDY Esquivel Active LOVASTATIN 20 MG TABS 1 PO Q HS FOR CHOLESTEROL LOVASTATIN 79425410955 Active HEDY Esquivel Active ALENDRONATE SODIUM 70 MG TABS TAKE 1 TAB ONCE A WEEK ALENDRONATE SODIUM 70 MG TABS 344058 ALENDRONATE SODIUM Inactive ADULT ASPIRIN EC LOW STRENGTH 81 MG TBEC TAKE 1 TAB DAILY ADULT ASPIRIN EC LOW STRENGTH 81 MG TBEC 405091 ASPIRIN Inactive ALPRAZOLAM 0.25 MG TAB 1/2-1 tablet by mouth twice a day as needed for stress ALPRAZOLAM 0.25 MG TAB 023912 ALPRAZOLAM Inactive COLACE 100 MG CAP 1 po BID PRN Constipation COLACE 100 MG CAP 7090855 DOCUSATE SODIUM Inactive ADVIL 200 MG TABS TAKE NEEDED ADVIL 200 MG TABS 151085 IBUPROFEN Inactive BENADRYL ALLERGY 25 MG TABS NEEDED BENADRYL ALLERGY 25 MG TABS 1272528 DIPHENHYDRAMINE HCL Inactive FLONASE ALLERGY RELIEF 50 MCG/ACT NASAL SUSP One spray each nostril daily for allergies FLONASE ALLERGY RELIEF 50 MCG/ACT NASAL SUSP 1243526 FLUTICASONE PROPIONATE Inactive MIRALAX ORAL PACK Takes daily prn MIRALAX ORAL PACK 128641 POLYETHYLENE GLYCOL 3350 Inactive AUGMENTIN 875-125 MG TAB 1 po BID x 7 days AUGMENTIN 875-125 MG TAB 599292 AMOXICILLIN-POT CLAVULANATE Inactive HYDROCHLOROTHIAZIDE 12.5 MG CAPS 1 pill by mouth daily, for blood pressure HYDROCHLOROTHIAZIDE 12.5 MG CAPS 770807 HYDROCHLOROTHIAZIDE Inactive AMOXICILLIN 500 MG CAP 1 tab by mouth 3 times daily AMOXICILLIN 500 MG CAP 723227 AMOXICILLIN Inactive BACTRIM DS 800-160 MG TABS 1 pill by mouth twice daily, for UTI BACTRIM DS 800-160 MG TABS 050299 SULFAMETHOXAZOLE-TRIMETHOPRIM Inactive Advance Directives Directive Description Start [...] Panel - Chemistry sodium, serum 130 mmol/L 693-127 8011/10/19 potassium, serum 3.5 mmol/L 3.5-5.2 chloride, serum 92 mmol/L 98-107 carbon dioxide, venous blood 33.6 mmol/L 21.0-32.0 blood glucose 118 mg/dL 65-110 calcium, serum 8.8 mg/dL 8.5-10.1 urea nitrogen, blood 11 mg/dL 7-18 creatinine, serum 1.12 mg/dL 0.55-1.30 Lab Report: CBC-QUEST, COMPREHENSIVE METABOLIC PANEL, LIPID PANEL, Micro ... - Chemistry cholesterol, serum 162 mg/dL 702-995 4454/05/01 HDL cholesterol, serum 68 mg/dL > OR=46 [...] % 11.0-15.0 platelet count 297 THOUSAND/UL 10*3/mm3 567-918 4982/05/01 mean platelet volume 8.9 fL 7.5-12.5 Lab [...] Encounter Date Provider Facility [facility]-69526 Level 3 Est. Patient 13:55:49 CDT Jalil Hayes MD [facility]-44663 Level 3 Est. Patient 14:38:15 CDT Jalil Hayes MD [facility]12429 Level 4 Est. Patient 14:40:54 CDT Bee Rosas [facility]89841 Level 4 Est. Patient 10:31:15 CDT Jalil Hayes MD [facility]49980 Level 4 Est. Patient 15:07:54 CDT Mariaa Whitman [facility]22953 Level 3 Est. Patient 20:45:54 CLINICAL ADVISOR Mariaa Whitman [facility]69586 Level 3 Est. Patient 12:16:16 CDT Ana Cristina Vallejo MD [facility]69073 Level 4 Est. Patient 12:49:21 CDT Ana Cristina Vallejo MD [facility]73801 Level 4 Est. Patient 23:02:25 CDT Ana Cristina Vallejo MD [facility]91081 Level 4 Est. Patient 19:26:33 CLINICAL ADVISOR Ana Cristina Vallejo MD [facility]61499 Level 4 Est. Patient 11:28:14 CDT Ana Cristina Vallejo MD [facility]31243 Level 4 Est. Patient 15:35:46 CLINICAL ADVISOR Ana Cristina Vallejo MD PhD [facility] CPT-04120 Level 3 Est. Patient 21:06:39 CLINICAL ADVISOR Alden Kim MD [facility] CPT-55554 Level 4 Est. Patient 15:30:54 CLINICAL ADVISOR Ana Cristina Vallejo MD PhD [facility] Procedures Code Procedure Name Date Entry Date Standard Description CPT-TCMM Transitional Care Mgmt-Moderate 14:41:55 CDT CPT-34298 EKG Trac and Interp - XRAY USE ONLY 10:35:11 CDT 09/11 CPT-61841 Chest 2V Frontal and Lat - XRAY USE ONLY 10:35:11 CDT CPT-G0438 Initial Annual Wellness Exam 14:54:07 CDT CPT-G0009 Administration of Pneumococcal Vaccine 14:44:24 CDT CPT-29516 Pneumovax 23 Injection Injectable 25 MCG/0.5ML 14:44:24 CDT CPT-02165 First Vx - Ix admin for Medicare patients 14:44:24 CDT CPT-00657 Fluzone High-Dose Intramuscular Suspension 14:44:20 CDT CPT-93467 BMP - LAB USE ONLY 12:38:06 CDT CPT-59736 Urine Culture - LAB USE ONLY 16:56:33 CDT CPT-TCMM Transitional Care Mgmt-Moderate 18:08:16 CDT CPT-33483 Bone Density 09:14:12 CDT CPT-000 Give Appropriate Flu Vaccine 14:51:52 CDT CPT-30671 Fluzone High Dose (>=65 yrs.) 15:19:23 CDT CPT-94449 Immunization Single Admin 15:19:23 CDT CPT-62992 Prevnar 13 15:40:03 CDT CPT-57067 Administration single or combination vaccine inc oral 15 :40:03 CDT CPT-92178 Prevnar 13 13:55:07 CDT CPT-G0008 Administration of Influenza Virus Vaccine 10:49:51 CDT CPT-10626 Fluzone High-Dose Intramuscular Suspension 10:49:51 CDT CPT-34894 Knee 3V 13:31:37 CDT CPT-38667 Bone Density 09:07:05 CLINICAL ADVISOR CPT-52172 Nail Avulsion 09:46:05 CDT CPT-10063 Administration single or combination vaccine inc oral 16 :11:54 CDT CPT-66137 Influenza High Dose age 65+ 16:11:54 CDT CPT-10757 Administration single or combination vaccine inc oral 10 :53:15 CDT CPT-78741 Influenza High Dose age 65+ 10:53:15 CDT CPT-97103 Bone Density 14:50:58 CLINICAL ADVISOR CPT-05087 Administration single or combination vaccine inc oral 15 :41:20 CLINICAL ADVISOR CPT-88983 Zoster Vaccine (Zostavax) 15:41:20 CLINICAL ADVISOR CPT-03990 Spec Collection and Handling Fee 11:18:25 CLINICAL ADVISOR CPT-49883 Administration single or combination vaccine inc oral 11 :14:20 CDT CPT-43635 Influenza High Dose age 65+ 11:14:20 CDT
--- OUTSIDE RECORDS SUMMARY | 2017-07-18 08:13 | XMS REPORT | Clinical Summary ---
Author Author Admin, HUYENE Organization [facility] Address Unknown Phone Unavailable Allergies, Adverse Reactions, Alerts Allergy Name Reaction Description Start Date Severity Status Provider No Known Allergies Paulasujey Padronb RMA Conditions or Problems Problem Name Problem [...] by mouth weekly for osteoporosis ALENDRONATE SODIUM 38976465585 Active Brianda Reis [facility] Active E-1000 1000 UNIT ORAL CAPS Take one by mouth daily VITAMIN E 61958433450 Active Brianda KNOTT Active OSCAL 500/200 D-3 500-200 MG-UNIT ORAL TABS Take one by mouth 3 times daily, morning, afternoon and evening.] CALCIUM CARBONATE-VITAMIN D 59798234840 Active Brianda KNOTT Active ASPIRIN 81 MG CHEW TAB 1 tablet by mouth daily ASPIRIN 97063260457 Active Brianda RICK Active ADULT ASPIRIN EC LOW STRENGTH 81 MG TBEC TAKE 1 TAB DAILY ASPIRIN 70593904236 No Longer Active Mariaa Whitman APRN Active ALENDRONATE SODIUM 70 MG TABS TAKE 1 TAB ONCE A WEEK ALENDRONATE SODIUM 21631018355 No Longer Active Mariaa Whitman APRN Active FLONASE ALLERGY RELIEF 50 MCG/ACT NASAL SUSP One spray each nostril daily for allergies FLUTICASONE PROPIONATE 17212441283 Active Mariaa Whitman APRN Active CETIRIZINE HCL 10 MG ORAL TABS 1 po qd PRN Allergies CETIRIZINE HCL 54422383710 Active Mariaa Whitman APRN Active BACTRIM DS 800-160 MG TABS 1 pill by mouth twice daily, for UTI SULFAMETHOXAZOLE-TRIMETHOPRIM 92618927796 No Longer Active Ana Cristina Vallejo MD PhD Active HYDROCHLOROTHIAZIDE 12.5 MG CAPS 1 pill by mouth daily, for blood pressure HYDROCHLOROTHIAZIDE 28426196473 Active Mariaa Whitman APRN Active CARVEDILOL 25 MG TABS 1 pill by mouth twice daily for blood pressure CARVEDILOL 36922516365 Active Mariaa Whitman APRN Active SYNTHROID 0.088 MG TAB 1 tablet by mouth daily for thyroid LEVOTHYROXINE SODIUM 94189091940 Active Mariaa Whitman APRN Active AMOXICILLIN 500 MG CAP 1 tab by mouth 3 times daily AMOXICILLIN 95817087590 No Longer Active Alden Kim MD Active [facility]S VITAMIN D3 1000 UNIT CAPS TAKE 2 CAP DAILY CHOLECALCIFEROL Active Ana Cristina Vallejo MD PhD Active CALCIUM 500 MG TABS TAKE 3 TABS DAILY CALCIUM 21419951528 No Longer Active Mariaa Whitman SOCIAL PROBLEMS SPECIALIST Active MULTIVITAMINS TABS TAKE 1 TAB DAILY MULTIPLE VITAMIN Active Aneta Tavarezum SKIVER MACHINE Active BENADRYL ALLERGY 25 MG TABS NEEDED DIPHENHYDRAMINE HCL 76673623565 Active Aneta Tavarezum SKIVER MACHINE Active TYLENOL 325 MG TABS NEEDED ACETAMINOPHEN 60077952662 Active Aneta Tavarezum SKIVER MACHINE Active ADVIL 200 MG TABS TAKE NEEDED IBUPROFEN 60705780031 Active Aneta Tavarezum SKIVER MACHINE Active GLUCOSAMINE-CHONDROITIN 500-400 MG TABS TAKE 1 TAB DAILY GLUCOSAMINE-CHONDROITIN 20399942495 Active Mariaa Whitman SOCIAL PROBLEMS SPECIALIST Active NORVASC 10 MG TABS TAKE 1 TAB DAILY AMLODIPINE BESYLATE 02811523073 Active Mariaa Atkinsonum SOCIAL PROBLEMS SPECIALIST Active BENAZEPRIL HCL 40 MG TABS 1 PO BID BENAZEPRIL HCL 79814932398 Active Mariaa Whitman SOCIAL PROBLEMS SPECIALIST Active LOVASTATIN 20 MG TABS 1 PO Q HS FOR CHOLESTEROL LOVASTATIN 34417993154 Active Mariaa Whitman SOCIAL PROBLEMS SPECIALIST Active RANITIDINE HCL 150 MG CAPS 1 PO Q 12 HRS RANITIDINE HCL 47217260659 Active Mariaa Whitman SOCIAL PROBLEMS SPECIALIST Active ALENDRONATE SODIUM 70 MG TABS TAKE 1 TAB ONCE A WEEK ALENDRONATE SODIUM 70 MG TABS 204654 ALENDRONATE SODIUM Inactive ADULT ASPIRIN EC LOW STRENGTH 81 MG TBEC TAKE 1 TAB DAILY ADULT ASPIRIN EC LOW STRENGTH 81 MG TBEC 712800 ASPIRIN Inactive AMOXICILLIN 500 MG CAP 1 tab by mouth 3 times daily AMOXICILLIN 500 MG CAP 198158 AMOXICILLIN Inactive BACTRIM DS 800-160 MG TABS 1 pill by mouth twice daily, for UTI BACTRIM DS 800-160 MG TABS 033768 SULFAMETHOXAZOLE-TRIMETHOPRIM Inactive Advance Directives Directive Description Start [...] Thyroxine (L), Lipid P ... - Chemistry cholesterol, serum 166 mg/dL 164-876 1916/04/20 thyroxine, serum, free 1.41 ng/dL 0.76-1.46 TSH 1.84 m[iU]/mL 0.36-3.74 sodium, serum 132 mmol/L 729-352 6079/04/20 carbon dioxide, venous blood 31.3 mmol/L 21.0-32.0 potassium, serum 3.8 mmol/L 3.5-5.2 chloride, serum 96 mmol/L 98-107 blood glucose 108 mg/dL 65-110 urea nitrogen, blood 8 mg/dL 7-18 creatinine, serum 0.97 mg/dL 0.55-1.30 alanine aminotransferase (SGPT), serum 21 U/L 12-78 aspartate aminotransferase (SGOT), serum 19 U/L 15-37 calcium, serum 8.9 mg/dL 8.5-10.1 bilirubin, serum, total 0.40 mg/dL 0.00-1.00 HDL cholesterol, serum 88 mg/dL 32-96 triglyceride, serum, fasting 68 mg/dL 30-200 LDL cholesterol, serum 64 mg/dL 0-130 Lab [...] 5.0-8.5 Encounters Code Encounter Date Provider Facility CPT-45200 Level 4 Est. Patient 15:07:54 CDT Mariaa Whitman [facility]-79761 Level 3 Est. Patient 20:45:54 CHIEF OF SURGERY Mariaa Whitman [facility] CPT-74330 Level 3 Est. Patient 12:16:16 CDT Ana Cristina Vallejo MD [facility] CPT-21703 Level 4 Est. Patient 12:49:21 CDT Ana Cristina Vallejo MD [facility] CPT-73103 Level 4 Est. Patient 23:02:25 CDT Ana Cristina Vallejo MD [facility] CPT-65621 Level 4 Est. Patient 19:26:33 CHIEF OF SURGERY Ana Cristina Vallejo MD [facility] CPT-43260 Level 4 Est. Patient 11:28:14 CDT Ana Cristina Vallejo MD [facility] CPT-01453 Level 4 Est. Patient 15:35:46 CHIEF OF SURGERY Ana Cristina Vallejo MD [facility]-40833 Level 3 Est. Patient 21:06:39 CHIEF OF SURGERY Alden Kim MD [facility] CPT-39255 Level 4 Est. Patient 15:30:54 CHIEF OF SURGERY Ana Cristina Vallejo MD [facility] Procedures Code Procedure Name Date Entry Date Standard Description CPT-65982 Urine Culture - LAB USE ONLY 16:56:33 CDT CPT-TCMM Transitional Care Mgmt-Moderate 18:08:16 CDT CPT-47292 Bone Density 09:14:12 CDT CPT-000 Give Appropriate Flu Vaccine 14:51:52 CDT CPT-56099 Fluzone High Dose (>=65 yrs.) 15:19:23 CDT CPT-64287 Immunization Single Admin 15:19:23 CDT CPT-00610 Prevnar 13 15:40:03 CDT CPT-22545 Administration single or combination vaccine inc oral 15 :40:03 CDT CPT-73443 Prevnar 13 13:55:07 CDT CPT-G0008 Administration of Influenza Virus Vaccine 10:49:51 CDT CPT-34666 Fluzone High-Dose Intramuscular Suspension 10:49:51 CDT CPT-28167 Knee 3V 13:31:37 CDT CPT-59261 Bone Density 09:07:05 CHIEF OF SURGERY CPT-41106 Nail Avulsion 09:46:05 CDT CPT-25480 Administration single or combination vaccine inc oral 16 :11:54 CDT CPT-06083 Influenza High Dose age 65+ 16:11:54 CDT CPT-23232 Administration single or combination vaccine inc oral 10 :53:15 CDT CPT-87641 Influenza High Dose age 65+ 10:53:15 CDT CPT-41958 Bone Density 14:50:58 CHIEF OF SURGERY CPT-79760 Administration single or combination vaccine inc oral 15 :41:20 CHIEF OF SURGERY CPT-78515 Zoster Vaccine (Zostavax) 15:41:20 CHIEF OF SURGERY CPT-69157 Spec Collection and Handling Fee 11:18:25 CHIEF OF SURGERY CPT-81238 Administration single or combination vaccine inc oral 11 :14:20 CDT CPT-34887 Influenza High Dose age 65+ 11:14:20 CDT
--- OUTSIDE RECORDS SUMMARY | 2017-07-18 08:13 | XMS REPORT | Clinical Summary ---
Author Author Admin, DANDRE Organization [facility] Address Unknown Phone Unavailable Allergies, Adverse Reactions, Alerts Allergy Name Reaction Description Start Date Severity Status Provider NKDA Critical Active Mariaa Whitman [employer]INCIPAL Conditions or Problems Problem Name Problem Code Onset Date Status Entry Date Provider Comment Standard Description Annotate ROUTINE GYNECOLOGICAL EXAMINATION V72.31 Resolved Ana Cristina Vallejo MD PhD Routine gynecological examination MENOPAUSE 627.2 Ruled out Ana Cristina Vallejo MD PhD Symptomatic menopausal or female climacteric states MENOPAUSE 627.2 Active Brianda Reis [facility] Symptomatic menopausal or female climacteric states DIVERTICULOSIS, [...] mammogram Change in bowels 787.99 Active Bee oRsas APRN Other symptoms involving digestive system Dysphagia [...] CAPS 1 pill by mouth daily HYDROCHLOROTHIAZIDE 79623858379 Active Jalil Hayes MD Active RANITIDINE HCL 150 MG CAPS once nightly RANITIDINE HCL 13049305059 Active Jalil Hayes MD Active BENAZEPRIL HCL 40 MG TABS 1 daily for blood pressure BENAZEPRIL HCL 72632023293 Active Jalil Hayes MD Active HYDROCHLOROTHIAZIDE 12.5 MG CAPS 1 pill by mouth daily, for blood pressure HYDROCHLOROTHIAZIDE 13472971170 No Longer Active Jalil Hayes MD Active AUGMENTIN 875-125 MG TAB 1 po BID x 7 days AMOXICILLIN-POT CLAVULANATE 65534662155 No Longer Active Jalil Hayes MD Active OMEPRAZOLE 40 MG CPDR 1 po q a.m. OMEPRAZOLE 62828977723 Active Peggy Pardo LPN Active MIRALAX ORAL PACK Takes daily prn POLYETHYLENE GLYCOL 3350 91122202843 No Longer Active Peggy Pardo LPN Active FLONASE ALLERGY RELIEF 50 MCG/ACT NASAL SUSP One spray each nostril daily for allergies FLUTICASONE PROPIONATE 27807063125 No Longer Active Peggy Pardo LPN Active BENADRYL ALLERGY 25 MG TABS NEEDED DIPHENHYDRAMINE HCL 18095805495 No Longer Active Peggy Pardo LPN Active ADVIL 200 MG TABS TAKE NEEDED IBUPROFEN 67644437700 No Longer Active Peggy Pardo LPN Active COLACE 100 MG CAP 1 po BID PRN Constipation DOCUSATE SODIUM 04359622978 No Longer Active Deepti Junior LPN Active ALPRAZOLAM 0.25 MG TAB 1/2-1 tablet by mouth twice a day as needed for stress ALPRAZOLAM 07077383315 No Longer Active Deepti Junior LPN Active ALENDRONATE SODIUM 70 MG TABS 1 pill by mouth weekly for osteoporosis ALENDRONATE SODIUM 89227634938 Active Brianda Reis [facility] Active E-1000 1000 UNIT ORAL CAPS Take one by mouth daily VITAMIN E 35416135968 Active Brianda Bergerford [facility] Active OSCAL 500/200 D-3 500-200 MG-UNIT ORAL TABS Take one by mouth 3 times daily, morning, afternoon and evening.] CALCIUM CARBONATE-VITAMIN D 92044508735 Active Brianda Bergerford [facility] Active ASPIRIN 81 MG CHEW TAB 1 tablet by mouth daily ASPIRIN 80108709202 Active Brianda Bergerford [facility] Active ADULT ASPIRIN EC LOW STRENGTH 81 MG TBEC TAKE 1 TAB DAILY ASPIRIN 05432421952 No Longer Active Mariaa Whitman APRN Active ALENDRONATE SODIUM 70 MG TABS TAKE 1 TAB ONCE A WEEK ALENDRONATE SODIUM 23332099821 No Longer Active Mariaa Whitman APRN Active CETIRIZINE HCL 10 MG ORAL TABS 1 po qd PRN Allergies CETIRIZINE HCL 54393061598 Active HEDY Esquivel Active BACTRIM DS 800-160 MG TABS 1 pill by mouth twice daily, for UTI SULFAMETHOXAZOLE-TRIMETHOPRIM 10595802464 No Longer Active Ana Cristina Vallejo MD PhD Active CARVEDILOL 25 MG TABS 1 pill by mouth twice daily for blood pressure CARVEDILOL 61978853469 Active HEDY Esquivel Active SYNTHROID 0.088 MG TAB 1 tablet by mouth daily for thyroid LEVOTHYROXINE SODIUM 87339781842 Active HEDY Esquivel Active AMOXICILLIN 500 MG CAP 1 tab by mouth 3 times daily AMOXICILLIN 00309159396 No Longer Active Alden Kim MD Active [facility]S VITAMIN D3 1000 UNIT CAPS TAKE 2 CAP DAILY CHOLECALCIFEROL Active Ana Cristina Vallejo MD PhD Active CALCIUM 500 MG TABS TAKE 3 TABS DAILY CALCIUM 30050768022 No Longer Active Mariaa Whitman APRN Active MULTIVITAMINS TABS TAKE 1 TAB DAILY MULTIPLE VITAMIN Active Anetajeannie Tavarezum DISH MAKER Active TYLENOL 325 MG TABS NEEDED ACETAMINOPHEN 85867239626 Active Aneta Tavarezum DISH MAKER Active GLUCOSAMINE-CHONDROITIN 500-400 MG TABS TAKE 1 TAB DAILY GLUCOSAMINE-CHONDROITIN 85826894870 Active Mariaa Whitman APRN Active NORVASC 10 MG TABS TAKE 1 TAB DAILY AMLODIPINE BESYLATE 77025925379 Active HEDY Esquivel Active LOVASTATIN 20 MG TABS 1 PO Q HS FOR CHOLESTEROL LOVASTATIN 58534269192 Active HEDY Esquivel Active ALENDRONATE SODIUM 70 MG TABS TAKE 1 TAB ONCE A WEEK ALENDRONATE SODIUM 70 MG TABS 848014 ALENDRONATE SODIUM Inactive ADULT ASPIRIN EC LOW STRENGTH 81 MG TBEC TAKE 1 TAB DAILY ADULT ASPIRIN EC LOW STRENGTH 81 MG TBEC 627040 ASPIRIN Inactive ALPRAZOLAM 0.25 MG TAB 1/2-1 tablet by mouth twice a day as needed for stress ALPRAZOLAM 0.25 MG TAB 412992 ALPRAZOLAM Inactive COLACE 100 MG CAP 1 po BID PRN Constipation COLACE 100 MG CAP 7781955 DOCUSATE SODIUM Inactive ADVIL 200 MG TABS TAKE NEEDED ADVIL 200 MG TABS 167184 IBUPROFEN Inactive BENADRYL ALLERGY 25 MG TABS NEEDED BENADRYL ALLERGY 25 MG TABS 1078546 DIPHENHYDRAMINE HCL Inactive FLONASE ALLERGY RELIEF 50 MCG/ACT NASAL SUSP One spray each nostril daily for allergies FLONASE ALLERGY RELIEF 50 MCG/ACT NASAL SUSP 8379742 FLUTICASONE PROPIONATE Inactive MIRALAX ORAL PACK Takes daily prn MIRALAX ORAL PACK 470544 POLYETHYLENE GLYCOL 3350 Inactive AUGMENTIN 875-125 MG TAB 1 po BID x 7 days AUGMENTIN 875-125 MG TAB 092594 AMOXICILLIN-POT CLAVULANATE Inactive HYDROCHLOROTHIAZIDE 12.5 MG CAPS 1 pill by mouth daily, for blood pressure HYDROCHLOROTHIAZIDE 12.5 MG CAPS 062769 HYDROCHLOROTHIAZIDE Inactive AMOXICILLIN 500 MG CAP 1 tab by mouth 3 times daily AMOXICILLIN 500 MG CAP 704445 AMOXICILLIN Inactive BACTRIM DS 800-160 MG TABS 1 pill by mouth twice daily, for UTI BACTRIM DS 800-160 MG TABS 440620 SULFAMETHOXAZOLE-TRIMETHOPRIM Inactive Advance Directives Directive Description Start [...] Panel - Chemistry sodium, serum 130 mmol/L 054-302 3655/10/19 potassium, serum 3.5 mmol/L 3.5-5.2 chloride, serum 92 mmol/L 98-107 carbon dioxide, venous blood 33.6 mmol/L 21.0-32.0 blood glucose 118 mg/dL 65-110 calcium, serum 8.8 mg/dL 8.5-10.1 urea nitrogen, blood 11 mg/dL 7-18 creatinine, serum 1.12 mg/dL 0.55-1.30 Lab Report: CBC-QUEST, COMPREHENSIVE METABOLIC PANEL, LIPID PANEL, Micro ... - Chemistry cholesterol, serum 162 mg/dL 208-739 8301/05/01 HDL cholesterol, serum 68 mg/dL > OR=46 [...] % 11.0-15.0 platelet count 297 THOUSAND/UL 10*3/mm3 633-355 3631/05/01 mean platelet volume 8.9 fL 7.5-12.5 Lab [...] Negative Encounters Code Encounter Date Provider Facility CPT-39923 Level 3 Est. Patient 13:55:49 CDT Jalil Hayes MD [facility] CPT-54729 Level 3 Est. Patient 14:38:15 CDT Jalil Hayes MD [facility] CPT-01288 Level 4 Est. Patient 14:40:54 CDT Bee Rosas [facility] CPT-17121 Level 4 Est. Patient 10:31:15 CDT Jalil Hayes MD [facility] CPT-31724 Level 4 Est. Patient 15:07:54 CDT Mariaa Whitman [facility] CPT-71585 Level 3 Est. 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 CPT-72967 Level 3 Est. Patient 12:16:16 CDT Ana Cristina Vallejo MD [facility] CPT-44996 Level 4 Est. Patient 12:49:21 CDT Ana Cristina Vallejo MD [facility] CPT-97295 Level 4 Est. Patient 23:02:25 CDT Ana Cristina Vallejo MD [facility] CPT-02642 Level 4 Est. Patient 19:26:33 FORMING PROCESS LINE WORKER Ana Cristina Vallejo MD [facility]-80530 Level 4 Est. Patient 11:28:14 CDT Ana Cristina Vallejo MD [facility]-73798 Level 4 Est. Patient 15:35:46 FORMING PROCESS LINE WORKER Ana Cristina Vallejo MD [facility] CPT-68867 Level 3 Est. Patient 21:06:39 FORMING PROCESS LINE WORKER Alden Kim MD [facility] CPT-06539 Level 4 Est. Patient 15:30:54 FORMING PROCESS LINE WORKER Ana Cristina Vallejo MD [facility] Procedures Code Procedure Name Date Entry Date Standard Description CPT-TCMM Transitional Care Mgmt-Moderate 14:41:55 CDT CPT-26308 EKG Trac and Interp - XRAY USE ONLY 10:35:11 CDT 09/11 CPT-61335 Chest 2V Frontal and Lat - XRAY USE ONLY 10:35:11 CDT CPT-G0438 Initial Annual Wellness Exam 14:54:07 CDT CPT-G0009 Administration of Pneumococcal Vaccine 14:44:24 CDT CPT-16072 Pneumovax 23 Injection Injectable 25 MCG/0.5ML 14:44:24 CDT CPT-89431 First Vx - Ix admin for Medicare patients 14:44:24 CDT CPT-20359 Fluzone High-Dose Intramuscular Suspension 14:44:20 CDT CPT-55137 BMP - LAB USE ONLY 12:38:06 CDT CPT-06451 Urine Culture - LAB USE ONLY 16:56:33 CDT CPT-TCMM Transitional Care Mgmt-Moderate 18:08:16 CDT CPT-08966 Bone Density 09:14:12 CDT CPT-000 Give Appropriate Flu Vaccine 14:51:52 CDT CPT-12161 Fluzone High Dose (>=65 yrs.) 15:19:23 CDT CPT-43686 Immunization Single Admin 15:19:23 CDT CPT-47032 Prevnar 13 15:40:03 CDT CPT-76748 Administration single or combination vaccine inc oral 15 :40:03 CDT CPT-95413 Prevnar 13 13:55:07 CDT CPT-G0008 Administration of Influenza Virus Vaccine 10:49:51 CDT CPT-50861 Fluzone High-Dose Intramuscular Suspension 10:49:51 CDT CPT-99565 Knee 3V 13:31:37 CDT CPT-43501 Bone Density 09:07:05 FORMING PROCESS LINE WORKER CPT-03297 Nail Avulsion 09:46:05 CDT CPT-46187 Administration single or combination vaccine inc oral 16 :11:54 CDT CPT-35423 Influenza High Dose age 65+ 16:11:54 CDT CPT-30558 Administration single or combination vaccine inc oral 10 :53:15 CDT CPT-12122 Influenza High Dose age 65+ 10:53:15 CDT CPT-60735 Bone Density 14:50:58 FORMING PROCESS LINE WORKER CPT-22780 Administration single or combination vaccine inc oral 15 :41:20 FORMING PROCESS LINE WORKER CPT-53696 Zoster Vaccine (Zostavax) 15:41:20 FORMING PROCESS LINE WORKER CPT-23350 Spec Collection and Handling Fee 11:18:25 FORMING PROCESS LINE WORKER CPT-84753 Administration single or combination vaccine inc oral 11 :14:20 CDT CPT-53833 Influenza High Dose age 65+ 11:14:20 CDT
--- OUTSIDE RECORDS SUMMARY | 2017-07-18 08:14 | XMS REPORT | Clinical Summary ---
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 Conditions or Problems Problem Name Problem Code Onset Date Status Entry Date Provider Comment Standard Description Annotate ROUTINE GYNECOLOGICAL EXAMINATION V72.31 Resolved Ana Cristina Vallejo MD PhD Routine gynecological examination MENOPAUSE 627.2 Ruled out Ana Cristina Vallejo MD PhD Symptomatic menopausal or female climacteric states MENOPAUSE 627.2 Active Brianda Reis [facility] Symptomatic menopausal or female climacteric [...] a day as needed for stress ALPRAZOLAM 74905778473 Active Mariaa Whitman APRN Active COLACE 100 MG CAP 1 po BID PRN Constipation DOCUSATE SODIUM 31732489325 Active Mariaa Antonette LUGO Active MIRALAX ORAL PACK Takes daily prn POLYETHYLENE GLYCOL 3350 30145865238 Active Mariaa Whitman APRN Active ALENDRONATE SODIUM 70 MG TABS 1 pill by mouth weekly for osteoporosis ALENDRONATE SODIUM 49917475330 Active Brianda KNOTT Active E-1000 1000 UNIT ORAL CAPS Take one by mouth daily VITAMIN E 46385923260 Active Brianda KNOTT Active OSCAL 500/200 D-3 500-200 MG-UNIT ORAL TABS Take one by mouth 3 times daily, morning, afternoon and evening.] CALCIUM CARBONATE-VITAMIN D 67646610030 Active Brianda RICK Active ASPIRIN 81 MG CHEW TAB 1 tablet by mouth daily ASPIRIN 75934338567 Active Brianda RICK Active ADULT ASPIRIN EC LOW STRENGTH 81 MG TBEC TAKE 1 TAB DAILY ASPIRIN 75395938109 No Longer Active Mariaa Whitman APRN Active ALENDRONATE SODIUM 70 MG TABS TAKE 1 TAB ONCE A WEEK ALENDRONATE SODIUM 82265712338 No Longer Active Mariaa Whitman APRN Active FLONASE ALLERGY RELIEF 50 MCG/ACT NASAL SUSP One spray each nostril daily for allergies FLUTICASONE PROPIONATE 20935197511 Active Mariaa Whitman APRN Active CETIRIZINE HCL 10 MG ORAL TABS 1 po qd PRN Allergies CETIRIZINE HCL 71662818489 Active Mariaa Whitman APRN Active BACTRIM DS 800-160 MG TABS 1 pill by mouth twice daily, for UTI SULFAMETHOXAZOLE-TRIMETHOPRIM 36632123687 No Longer Active Ana Cristina Vallejo MD PhD Active HYDROCHLOROTHIAZIDE 12.5 MG CAPS 1 pill by mouth daily, for blood pressure HYDROCHLOROTHIAZIDE 96291079286 Active Mariaa Whitman APRN Active CARVEDILOL 25 MG TABS 1 pill by mouth twice daily for blood pressure CARVEDILOL 50012612875 Active Mariaa Whitman APRN Active SYNTHROID 0.088 MG TAB 1 tablet by mouth daily for thyroid LEVOTHYROXINE SODIUM 99439596575 Active HEDY Esquivel Active AMOXICILLIN 500 MG CAP 1 tab by mouth 3 times daily AMOXICILLIN 95716123278 No Longer Active Alden Kim MD Active [facility] VITAMIN D3 1000 UNIT CAPS TAKE 2 CAP DAILY CHOLECALCIFEROL Active Ana Cristina Vallejo MD PhD Active CALCIUM 500 MG TABS TAKE 3 TABS DAILY CALCIUM 66478605657 No Longer Active Mariaa Whitman APRN Active MULTIVITAMINS TABS TAKE 1 TAB DAILY MULTIPLE VITAMIN Active Aneta Samantha Leo WELLNESS COORDINATOR Active BENADRYL ALLERGY 25 MG TABS NEEDED DIPHENHYDRAMINE HCL 88491695024 Active Aneta D Leo WELLNESS COORDINATOR Active TYLENOL 325 MG TABS NEEDED ACETAMINOPHEN 17682153291 Active Aneta Singh Leo WELLNESS COORDINATOR Active ADVIL 200 MG TABS TAKE NEEDED IBUPROFEN 58240044880 Active Aneta D Leo WELLNESS COORDINATOR Active GLUCOSAMINE-CHONDROITIN 500-400 MG TABS TAKE 1 TAB DAILY GLUCOSAMINE-CHONDROITIN 56081289672 Active Mariaa Whitman APRN Active NORVASC 10 MG TABS TAKE 1 TAB DAILY AMLODIPINE BESYLATE 31229978724 Active Mariaa Whitman APRN Active BENAZEPRIL HCL 40 MG TABS 1 PO BID BENAZEPRIL HCL 80358608174 Active HEDY Esquivel Active LOVASTATIN 20 MG TABS 1 PO Q HS FOR CHOLESTEROL LOVASTATIN 62984103404 Active HEDY Esquivel Active RANITIDINE HCL 150 MG CAPS 1 PO Q 12 HRS RANITIDINE HCL 61555986121 Active Mariaa Whitman APRN Active ALENDRONATE SODIUM 70 MG TABS TAKE 1 TAB ONCE A WEEK ALENDRONATE SODIUM 70 MG TABS 762979 ALENDRONATE SODIUM Inactive ADULT ASPIRIN EC LOW STRENGTH 81 MG TBEC TAKE 1 TAB DAILY ADULT ASPIRIN EC LOW STRENGTH 81 MG TBEC 035672 ASPIRIN Inactive AMOXICILLIN 500 MG CAP 1 tab by mouth 3 times daily AMOXICILLIN 500 MG CAP 025292 AMOXICILLIN Inactive BACTRIM DS 800-160 MG TABS 1 pill by mouth twice daily, for UTI BACTRIM DS 800-160 MG TABS 271614 SULFAMETHOXAZOLE-TRIMETHOPRIM Inactive Advance Directives Directive Description Start [...] Panel - Chemistry sodium, serum 130 mmol/L 388-187 6118/10/19 potassium, serum 3.5 mmol/L 3.5-5.2 chloride, serum [...] 1.41 ng/dL 0.76-1.46 cholesterol, serum 166 mg/dL 854-592 9666/04/20 triglyceride, serum, fasting 68 mg/dL 30-200 HDL cholesterol, serum 88 mg/dL 32-96 LDL cholesterol, serum 64 mg/dL 0-130 sodium, serum 132 mmol/L 807-630 1668/04/20 carbon dioxide, venous blood 31.3 mmol/L 21.0-32.0 [...] 5.0-8.5 Encounters Code Encounter Date Provider Facility CPT-02044 Level 4 Est. Patient 15:07:54 CDT Mariaa Whitman [facility] CPT-44054 Level 3 Est. Patient 20:45:54 YARN SALVAGER Mariaa Whitman [facility] CPT-52675 Level 3 Est. Patient 12:16:16 CDT Ana Cristina Vallejo MD [facility][note 3]-[id number] Level 4 Est. Patient 12:49:21 CDT Ana Cristina Vallejo MD [facility][note 3]-04551 Level 4 Est. Patient 23:02:25 CDT Ana Cristina Vallejo MD [facility][note 3]-[id number] Level 4 Est. Patient 19:26:33 YARN SALVAGER Ana Cristina Vallejo MD [facility][note 3]-[id number] Level 4 Est. Patient 11:28:14 CDT Ana Cristina Vallejo MD [facility][note 3]-[id number] Level 4 Est. Patient 15:35:46 YARN SALVAGER Ana Cristina Vallejo MD [facility] CPT-72606 Level 3 Est. Patient 21:06:39 YARN SALVAGER Alden Kim MD [facility] CPT-75928 Level 4 Est. Patient 15:30:54 YARN SALVAGER Ana Cristina Vallejo MD [facility] Procedures Code Procedure Name Date Entry Date Standard Description CPT-G0438 Initial Annual Wellness Exam 14:54:07 CDT CPT-G0009 Administration of Pneumococcal Vaccine 14:44:24 CDT CPT-48348 Pneumovax 23 Injection Injectable 25 MCG/0.5ML 14:44:24 CDT CPT-33242 First Vx - Ix admin for Medicare patients 14:44:24 CDT CPT-45605 Fluzone High-Dose Intramuscular Suspension 14:44:20 CDT CPT-19050 BMP - LAB USE ONLY 12:38:06 CDT CPT-04658 Urine Culture - LAB USE ONLY 16:56:33 CDT CPT-TCMM Transitional Care Mgmt-Moderate 18:08:16 CDT CPT-20044 Bone Density 09:14:12 CDT CPT-000 Give Appropriate Flu Vaccine 14:51:52 CDT CPT-94060 Fluzone High Dose (>=65 yrs.) 15:19:23 CDT CPT-44418 Immunization Single Admin 15:19:23 CDT CPT-67904 Prevnar 13 15:40:03 CDT CPT-84499 Administration single or combination vaccine inc oral 15 :40:03 CDT CPT-02235 Prevnar 13 13:55:07 CDT CPT-G0008 Administration of Influenza Virus Vaccine 10:49:51 CDT CPT-82969 Fluzone High-Dose Intramuscular Suspension 10:49:51 CDT CPT-35124 Knee 3V 13:31:37 CDT CPT-62774 Bone Density 09:07:05 YARN SALVAGER CPT-73262 Nail Avulsion 09:46:05 CDT CPT-33882 Administration single or combination vaccine inc oral 16 :11:54 CDT CPT-88311 Influenza High Dose age 65+ 16:11:54 CDT CPT-32640 Administration single or combination vaccine inc oral 10 :53:15 CDT CPT-37865 Influenza High Dose age 65+ 10:53:15 CDT CPT-73319 Bone Density 14:50:58 YARN SALVAGER CPT-18906 Administration single or combination vaccine inc oral 15 :41:20 YARN SALVAGER CPT-73930 Zoster Vaccine (Zostavax) 15:41:20 YARN SALVAGER CPT-69263 Spec Collection and Handling Fee 11:18:25 YARN SALVAGER CPT-00233 Administration single or combination vaccine inc oral 11 :14:20 CDT CPT-05074 Influenza High Dose age 65+ 11:14:20 CDT
--- OUTSIDE RECORDS SUMMARY | 2017-07-18 08:14 | XMS REPORT | Clinical Summary ---
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 Conditions or Problems Problem Name Problem Code Onset Date Status Entry Date Provider Comment Standard Description Annotate ROUTINE GYNECOLOGICAL EXAMINATION V72.31 Resolved Ana Cristina Vallejo MD PhD Routine gynecological examination MENOPAUSE 627.2 Ruled out Ana Cristina Vallejo MD PhD Symptomatic menopausal or female climacteric states MENOPAUSE 627.2 Active Brianda Reis [facility] Symptomatic menopausal or female climacteric states DIVERTICULOSIS, [...] Active Jalil Hayes MD Other screening mammogram ROUTINE GYNECOLOGICAL EXAMINATION ICD-V72.31 Inactive Ana Cristina [...] Instructions Start Date Stop Date Generic Name [facility] [place] Status Provider Patient Instruction COLACE 100 MG CAP 1 po BID PRN Constipation DOCUSATE SODIUM 88026259389 No Longer Active Deepti Madl WEIGHT LOSS CENTRE MANAGER Active ALPRAZOLAM 0.25 MG TAB 1/2-1 tablet by mouth twice a day as needed for stress ALPRAZOLAM 99346494468 No Longer Active Deepti Madl WEIGHT LOSS CENTRE MANAGER Active MIRALAX ORAL PACK Takes daily prn POLYETHYLENE GLYCOL 3350 13748015086 Active Mariaa Whitman APRN Active ALENDRONATE SODIUM 70 MG TABS 1 pill by mouth weekly for osteoporosis ALENDRONATE SODIUM 17791429010 Active Brianda Reis [facility] Active E-1000 1000 UNIT ORAL CAPS Take one by mouth daily VITAMIN E 54681995828 Active Brianda Reis [facility] Active OSCAL 500/200 D-3 500-200 MG-UNIT ORAL TABS Take one by mouth 3 times daily, morning, afternoon and evening.] CALCIUM CARBONATE-VITAMIN D 26672768682 Active Brianda [facility] Active ASPIRIN 81 MG CHEW TAB 1 tablet by mouth daily ASPIRIN 74051433033 Active Brianda [facility] Active ADULT ASPIRIN EC LOW STRENGTH 81 MG TBEC TAKE 1 TAB DAILY ASPIRIN 21453918153 No Longer Active Mariaa Whitman APRN Active ALENDRONATE SODIUM 70 MG TABS TAKE 1 TAB ONCE A WEEK ALENDRONATE SODIUM 35505705116 No Longer Active Mariaa Whitman 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 Active FLONASE ALLERGY RELIEF 50 MCG/ACT NASAL SUSP One spray each nostril daily for allergies FLUTICASONE PROPIONATE 01683916834 Active Mariaa Whitman OPERATIONS 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 Active CETIRIZINE HCL 10 MG ORAL TABS 1 po qd PRN Allergies CETIRIZINE HCL 99722448467 Active Mariaa Whitman APRN Active BACTRIM DS 800-160 MG TABS 1 pill by mouth twice daily, for UTI SULFAMETHOXAZOLE-TRIMETHOPRIM 07761219370 No Longer Active Ana Cristina Vallejo MD PhD Active HYDROCHLOROTHIAZIDE 12.5 MG CAPS 1 pill by mouth daily, for blood pressure HYDROCHLOROTHIAZIDE 75293749241 Active Mariaa Whitman APRN Active CARVEDILOL 25 MG TABS 1 pill by mouth twice daily for blood pressure CARVEDILOL 63557181513 Active Mariaa Whitman APRN Active SYNTHROID 0.088 MG TAB 1 tablet by mouth daily for thyroid LEVOTHYROXINE SODIUM 51594499369 Active HEDY Esquivel Active AMOXICILLIN 500 MG CAP 1 tab by mouth 3 times daily AMOXICILLIN 01888289754 No Longer Active Alden Kim MD Active [facility] VITAMIN D3 1000 UNIT CAPS TAKE 2 CAP DAILY CHOLECALCIFEROL Active Ana Cristina Vallejo MD PhD Active CALCIUM 500 MG TABS TAKE 3 TABS DAILY CALCIUM 65351248037 No Longer Active Mariaa Whitman APRN Active MULTIVITAMINS TABS TAKE 1 TAB DAILY MULTIPLE VITAMIN Active Aneta Tavarezum WEIGHT LOSS CENTRE MANAGER Active BENADRYL ALLERGY 25 MG TABS NEEDED DIPHENHYDRAMINE HCL 07325171216 Active Aneta Singh Leo WEIGHT LOSS CENTRE MANAGER Active TYLENOL 325 MG TABS NEEDED ACETAMINOPHEN 52282902215 Active Aneta Tavarezum WEIGHT LOSS CENTRE MANAGER Active ADVIL 200 MG TABS TAKE NEEDED IBUPROFEN 25195687576 Active Aneta Tavarezum WEIGHT LOSS CENTRE MANAGER Active GLUCOSAMINE-CHONDROITIN 500-400 MG TABS TAKE 1 TAB DAILY GLUCOSAMINE-CHONDROITIN 87685987373 Active Mariaa Whitman APRN Active NORVASC 10 MG TABS TAKE 1 TAB DAILY AMLODIPINE BESYLATE 47398280036 Active Mariaa Whitman APRN Active BENAZEPRIL HCL 40 MG TABS 1 PO BID BENAZEPRIL HCL 01826812251 Active HEDY Esquivel Active LOVASTATIN 20 MG TABS 1 PO Q HS FOR CHOLESTEROL LOVASTATIN 59114706703 Active HEDY Esquivel Active RANITIDINE HCL 150 MG CAPS 1 PO Q 12 HRS RANITIDINE HCL 25678020463 Active Mariaa Whitman OPERATIONS 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 Active ALENDRONATE SODIUM 70 MG TABS TAKE 1 TAB ONCE A WEEK ALENDRONATE SODIUM 70 MG TABS 324497 ALENDRONATE SODIUM Inactive ADULT ASPIRIN EC LOW STRENGTH 81 MG TBEC TAKE 1 TAB DAILY ADULT ASPIRIN EC LOW STRENGTH 81 MG TBEC 117666 ASPIRIN Inactive ALPRAZOLAM 0.25 MG TAB 1/2-1 tablet by mouth twice a day as needed for stress ALPRAZOLAM 0.25 MG TAB 942952 ALPRAZOLAM Inactive COLACE 100 MG CAP 1 po BID PRN Constipation COLACE 100 MG CAP 4128796 DOCUSATE SODIUM Inactive AMOXICILLIN 500 MG CAP 1 tab by mouth 3 times daily AMOXICILLIN 500 MG CAP 563368 AMOXICILLIN Inactive BACTRIM DS 800-160 MG TABS 1 pill by mouth twice daily, for UTI BACTRIM DS 800-160 MG TABS 628704 SULFAMETHOXAZOLE-TRIMETHOPRIM Inactive Advance Directives Directive Description Start [...] Panel - Chemistry sodium, serum 130 mmol/L 834-804 2599/10/19 potassium, serum 3.5 mmol/L 3.5-5.2 chloride, serum 92 mmol/L 98-107 carbon dioxide, venous blood 33.6 mmol/L 21.0-32.0 blood glucose 118 mg/dL 65-110 calcium, serum 8.8 mg/dL 8.5-10.1 urea nitrogen, blood 11 mg/dL 7-18 creatinine, serum 1.12 mg/dL 0.55-1.30 Lab Report: CBC-QUEST, COMPREHENSIVE METABOLIC PANEL, LIPID PANEL, Micro ... - Chemistry cholesterol, serum 162 mg/dL 452-823 9916/05/01 HDL cholesterol, serum 68 mg/dL > OR=46 [...] % 11.0-15.0 platelet count 297 THOUSAND/UL 10*3/mm3 561-441 1910/05/01 mean platelet volume 8.9 fL 7.5-12.5 Lab [...] Negative Encounters Code Encounter Date Provider Facility CPT-41301 Level 4 Est. Patient 10:31:15 CDT Jalil Hayes MD [facility] CPT-54812 Level 4 Est. Patient 15:07:54 CDT Mariaa Whitman [facility] CPT-42852 Level 3 Est. 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 Patient 12:16:16 CDT Ana Cristina Vallejo MD [facility] CPT-56225 Level 4 Est. Patient 12:49:21 CDT Ana Cristina Vallejo MD [facility] CPT-86699 Level 4 Est. Patient 23:02:25 CDT Ana Cristina Vallejo MD [facility] CPT-33000 Level 4 Est. Patient 19:26:33 GROUNDS MAINTENANCE WORKER Ana Cristina Vallejo MD [facility] CPT-08226 Level 4 Est. Patient 11:28:14 CDT Ana Cristina Vallejo MD [facility] CPT-29143 Level 4 Est. Patient 15:35:46 GROUNDS MAINTENANCE WORKER Ana Cristina Vallejo MD [facility] CPT-82634 Level 3 Est. Patient 21:06:39 GROUNDS MAINTENANCE WORKER Alden Kim MD [facility] CPT-45090 Level 4 Est. Patient 15:30:54 GROUNDS MAINTENANCE WORKER Ana Cristina Vallejo MD PhD [facility] Procedures Code Procedure Name Date Entry Date Standard Description CPT-84120 EKG Trac and Interp - XRAY USE ONLY 10:35:11 CDT 09/11 CPT-33135 Chest 2V Frontal and Lat - XRAY USE ONLY 10:35:11 CDT CPT-G0438 Initial Annual Wellness Exam 14:54:07 CDT CPT-G0009 Administration of Pneumococcal Vaccine 14:44:24 CDT CPT-73084 Pneumovax 23 Injection Injectable 25 MCG/0.5ML 14:44:24 CDT CPT-08030 First Vx - Ix admin for Medicare patients 14:44:24 CDT CPT-99299 Fluzone High-Dose Intramuscular Suspension 14:44:20 CDT CPT-30952 BMP - LAB USE ONLY 12:38:06 CDT CPT-18917 Urine Culture - LAB USE ONLY 16:56:33 CDT CPT-TCMM Transitional Care Mgmt-Moderate 18:08:16 CDT CPT-10252 Bone Density 09:14:12 CDT CPT-000 Give Appropriate Flu Vaccine 14:51:52 CDT CPT-20990 Fluzone High Dose (>=65 yrs.) 15:19:23 CDT CPT-68295 Immunization Single Admin 15:19:23 CDT CPT-68252 Prevnar 13 15:40:03 CDT CPT-07681 Administration single or combination vaccine inc oral 15 :40:03 CDT CPT-71509 Prevnar 13 13:55:07 CDT CPT-G0008 Administration of Influenza Virus Vaccine 10:49:51 CDT CPT-36254 Fluzone High-Dose Intramuscular Suspension 10:49:51 CDT CPT-23647 Knee 3V 13:31:37 CDT CPT-86705 Bone Density 09:07:05 GROUNDS MAINTENANCE WORKER CPT-71013 Nail Avulsion 09:46:05 CDT CPT-94122 Administration single or combination vaccine inc oral 16 :11:54 CDT CPT-45212 Influenza High Dose age 65+ 16:11:54 CDT CPT-59108 Administration single or combination vaccine inc oral 10 :53:15 CDT CPT-21536 Influenza High Dose age 65+ 10:53:15 CDT CPT-48301 Bone Density 14:50:58 GROUNDS MAINTENANCE WORKER CPT-81843 Administration single or combination vaccine inc oral 15 :41:20 GROUNDS MAINTENANCE WORKER CPT-86180 Zoster Vaccine (Zostavax) 15:41:20 GROUNDS MAINTENANCE WORKER CPT-26829 Spec Collection and Handling Fee 11:18:25 GROUNDS MAINTENANCE WORKER CPT-76355 Administration single or combination vaccine inc oral 11 :14:20 CDT CPT-44547 Influenza High Dose age 65+ 11:14:20 CDT
[2017-07-18] MEDS ORDERED: INTRA-ARTICULAR IU ONE ×5 (08:15)
--- OUTSIDE RECORDS SUMMARY | 2017-07-18 08:15 | XMS REPORT | Clinical Summary ---
Author Author Admin, DANDRE Organization [facility] [employer] [employer] Address Unknown Phone Unavailable Allergies, Adverse Reactions, Alerts Allergy Name Reaction Description Start Date Severity Status Provider NKDA Critical Active Mariaa Whitman RN RELIEF CHARGE Conditions or Problems Problem Name Problem Code [...] tab BID for 7 days CIPROFLOXACIN HCL 70277428097 Active Deepti Junior LPN Active MACROBID 100 MG ORAL CAPS 1 tab BID for 5 days NITROFURANTOIN MONOHYD MACRO 39505756103 No Longer Active Deepti Junior LPN Active HYDROCHLOROTHIAZIDE 12.5 MG CAPS 1 pill by mouth daily HYDROCHLOROTHIAZIDE 10997050465 Active Jalil Hayes MD Active RANITIDINE HCL 150 MG CAPS once nightly RANITIDINE HCL 57741668099 Active Jalil Hayes MD Active BENAZEPRIL HCL 40 MG TABS 1 daily for blood pressure BENAZEPRIL HCL 93174635359 Active Jalil Hayes MD Active HYDROCHLOROTHIAZIDE 12.5 MG CAPS 1 pill by mouth daily, for blood pressure HYDROCHLOROTHIAZIDE 78880125896 No Longer Active Jalil Hayes MD Active AUGMENTIN 875-125 MG TAB 1 po BID x 7 days AMOXICILLIN-POT CLAVULANATE 95066683266 No Longer Active Jalil Hayes MD Active OMEPRAZOLE 40 MG CPDR 1 po q a.m. OMEPRAZOLE 32034987790 Active Peggy Pardo LPN Active MIRALAX ORAL PACK Takes daily prn POLYETHYLENE GLYCOL 3350 12441165935 No Longer Active Peggy Pardo LPN Active FLONASE ALLERGY RELIEF 50 MCG/ACT NASAL SUSP One spray each nostril daily for allergies FLUTICASONE PROPIONATE 52759370196 No Longer Active Peggy Pardo LPN Active BENADRYL ALLERGY 25 MG TABS NEEDED DIPHENHYDRAMINE HCL 21683029489 No Longer Active Peggy Pardo LPN Active ADVIL 200 MG TABS TAKE NEEDED IBUPROFEN 97796825591 No Longer Active Peggy Pardo LPN Active COLACE 100 MG CAP 1 po BID PRN Constipation DOCUSATE SODIUM 12090117926 No Longer Active Deepti Junior LPN Active ALPRAZOLAM 0.25 MG TAB 1/2-1 tablet by mouth twice a day as needed for stress ALPRAZOLAM 02828367960 No Longer Active Deepti Junior LPN Active ALENDRONATE SODIUM 70 MG TABS 1 pill by mouth weekly for osteoporosis ALENDRONATE SODIUM 39897320540 Active Brianda KNOTT Active E-1000 1000 UNIT ORAL CAPS Take one by mouth daily VITAMIN E 00278164439 Active Brianda KNOTT Active OSCAL 500/200 D-3 500-200 MG-UNIT ORAL TABS Take one by mouth 3 times daily, morning, afternoon and evening.] CALCIUM CARBONATE-VITAMIN D 57308067551 Active Brianda KNOTT Active ASPIRIN 81 MG CHEW TAB 1 tablet by mouth daily ASPIRIN 63928844762 Active Brianda Reis Robin Active ADULT ASPIRIN EC LOW STRENGTH 81 MG TBEC TAKE 1 TAB DAILY ASPIRIN 78095823172 No Longer Active Mariaa Whitman APRN Active ALENDRONATE SODIUM 70 MG TABS TAKE 1 TAB ONCE A WEEK ALENDRONATE SODIUM 69863644487 No Longer Active Mariaa Whitman APRN Active CETIRIZINE HCL 10 MG ORAL TABS 1 po qd PRN Allergies CETIRIZINE HCL 54924734289 Active HEDY Esquivel Active BACTRIM DS 800-160 MG TABS 1 pill by mouth twice daily, for UTI SULFAMETHOXAZOLE-TRIMETHOPRIM 94360369746 No Longer Active Ana Cristina Vallejo MD PhD Active CARVEDILOL 25 MG TABS 1 pill by mouth twice daily for blood pressure CARVEDILOL 24632120610 Active HEDY Esquivel Active SYNTHROID 0.088 MG TAB 1 tablet by mouth daily for thyroid LEVOTHYROXINE SODIUM 54732423415 Active HEDY Esquivel Active AMOXICILLIN 500 MG CAP 1 tab by mouth 3 times daily AMOXICILLIN 74203890322 No Longer Active Alden Kim MD Active CVS VITAMIN D3 1000 UNIT CAPS TAKE 2 CAP DAILY CHOLECALCIFEROL Active Ana Cristina Vallejo MD PhD Active CALCIUM 500 MG TABS TAKE 3 TABS DAILY CALCIUM 66091909655 No Longer Active Mariaa Whitman APRN Active MULTIVITAMINS TABS TAKE 1 TAB DAILY MULTIPLE VITAMIN Active Anetajeannie Tavarezum YULIET Active TYLENOL 325 MG TABS NEEDED ACETAMINOPHEN 67709785470 Active Anetajeannie Tavarezum CARROTING MACHINE OFFBEARER Active GLUCOSAMINE-CHONDROITIN 500-400 MG TABS TAKE 1 TAB DAILY GLUCOSAMINE-CHONDROITIN 76667684125 Active Mariaa Whitman APRN Active NORVASC 10 MG TABS TAKE 1 TAB DAILY AMLODIPINE BESYLATE 04404108605 Active HEDY Esquivel Active LOVASTATIN 20 MG TABS 1 PO Q HS FOR CHOLESTEROL LOVASTATIN 72430093275 Active MERLINE EsquivelRobin Active ALENDRONATE SODIUM 70 MG TABS TAKE 1 TAB ONCE A WEEK ALENDRONATE SODIUM 70 MG TABS 916683 ALENDRONATE SODIUM Inactive ADULT ASPIRIN EC LOW STRENGTH 81 MG TBEC TAKE 1 TAB DAILY ADULT ASPIRIN EC LOW STRENGTH 81 MG TBEC 940800 ASPIRIN Inactive ALPRAZOLAM 0.25 MG TAB 1/2-1 tablet by mouth twice a day as needed for stress ALPRAZOLAM 0.25 MG TAB 902069 ALPRAZOLAM Inactive COLACE 100 MG CAP 1 po BID PRN Constipation COLACE 100 MG CAP 9213067 DOCUSATE SODIUM Inactive ADVIL 200 MG TABS TAKE NEEDED ADVIL 200 MG TABS 490057 IBUPROFEN Inactive BENADRYL ALLERGY 25 MG TABS NEEDED BENADRYL ALLERGY 25 MG TABS 9404261 DIPHENHYDRAMINE HCL Inactive FLONASE ALLERGY RELIEF 50 MCG/ACT NASAL SUSP One spray each nostril daily for allergies FLONASE ALLERGY RELIEF 50 MCG/ACT NASAL SUSP 1229241 FLUTICASONE PROPIONATE Inactive MIRALAX ORAL PACK Takes daily prn MIRALAX ORAL PACK 780145 POLYETHYLENE GLYCOL 3350 Inactive AUGMENTIN 875-125 MG TAB 1 po BID x 7 days AUGMENTIN 875-125 MG TAB 286325 AMOXICILLIN-POT CLAVULANATE Inactive HYDROCHLOROTHIAZIDE 12.5 MG CAPS 1 pill by mouth daily, for blood pressure HYDROCHLOROTHIAZIDE 12.5 MG CAPS 223155 HYDROCHLOROTHIAZIDE Inactive AMOXICILLIN 500 MG CAP 1 tab by mouth 3 times daily AMOXICILLIN 500 MG CAP 955775 AMOXICILLIN Inactive BACTRIM DS 800-160 MG TABS 1 pill by mouth twice daily, for UTI BACTRIM DS 800-160 MG TABS 020200 SULFAMETHOXAZOLE-TRIMETHOPRIM Inactive MACROBID 100 MG ORAL CAPS 1 tab BID for 5 days MACROBID 100 MG ORAL CAPS 9802778 NITROFURANTOIN MONOHYD MACRO Inactive Advance Directives Directive [...] Panel - Chemistry sodium, serum 130 mmol/L 658-541 7677/10/19 potassium, serum 3.5 mmol/L 3.5-5.2 chloride, serum 92 mmol/L 98-107 carbon dioxide, venous blood 33.6 mmol/L 21.0-32.0 blood glucose 118 mg/dL 65-110 calcium, serum 8.8 mg/dL 8.5-10.1 urea nitrogen, blood 11 mg/dL 7-18 creatinine, serum 1.12 mg/dL 0.55-1.30 sodium, serum 132 mmol/L 141-287 8572/08/09 potassium, serum 4.2 mmol/L 3.5-5.2 chloride, serum 99 mmol/L 98-107 carbon dioxide, venous blood 24.7 mmol/L 21.0-32.0 blood glucose 119 mg/dL 65-110 calcium, serum 8.5 mg/dL 8.5-10.1 urea nitrogen, blood 14 mg/dL 7-18 creatinine, serum 1.16 mg/dL 0.60-1.30 Lab Report: CBC-QUEST, COMPREHENSIVE METABOLIC PANEL, LIPID PANEL, Micro ... - Chemistry cholesterol, serum 162 mg/dL 992-351 2233/05/01 HDL cholesterol, serum 68 mg/dL > OR=46 [...] % 11.0-15.0 platelet count 297 THOUSAND/UL 10*3/mm3 232-831 8880/05/01 mean platelet volume 8.9 fL 7.5-12.5 Lab [...] 5.0-8.5 Encounters Code Encounter Date Provider Facility CPT-50860 Level 3 Est. Patient 13:55:49 CDT Jalil Hayes MD [facility] CPT-46232 Level 3 Est. Patient 14:38:15 CDT Jalil Hayes MD [facility] CPT-80690 Level 4 Est. Patient 14:40:54 CDT Bee Rosas [facility] [place] CPT-97116 Level 4 Est. Patient 10:31:15 CDT Jalil Hayes MD [facility] CPT-98216 Level 4 Est. Patient 15:07:54 CDT Mariaa Whitman [facility] [place] CPT-08857 Level 3 Est. Patient 20:45:54 PROGRAMMER DEVELOPER Mariaa Whitman [facility] CPT-33983 Level 3 Est. Patient 12:16:16 CDT Ana Cristina Vallejo MD [facility] CPT-28072 Level 4 Est. Patient 12:49:21 CDT Ana Cristina Vallejo MD [facility] CPT-31220 Level 4 Est. Patient 23:02:25 CDT Ana Cristina Vallejo MD [facility] CPT-57723 Level 4 Est. Patient 19:26:33 PROGRAMMER DEVELOPER Ana Cristina Vallejo MD [facility] CPT-35030 Level 4 Est. Patient 11:28:14 CDT Ana Cristina Vallejo MD [facility] CPT-05392 Level 4 Est. Patient 15:35:46 PROGRAMMER DEVELOPER Ana Cristina Vallejo MD [facility] CPT-75108 Level 3 Est. Patient 21:06:39 PROGRAMMER DEVELOPER Alden Kim MD [facility] CPT-48809 Level 4 Est. Patient 15:30:54 PROGRAMMER DEVELOPER Ana Cristina Vallejo MD [facility] Procedures Code Procedure Name Date Entry Date Standard Description CPT-TCMM Transitional Care Mgmt-Moderate 14:41:55 CDT CPT-72510 EKG Trac and Interp - XRAY USE ONLY 10:35:11 CDT 09/11 CPT-40645 Chest 2V Frontal and Lat - XRAY USE ONLY 10:35:11 CDT CPT-G0438 Initial Annual Wellness Exam 14:54:07 CDT CPT-G0009 Administration of Pneumococcal Vaccine 14:44:24 CDT CPT-73255 Pneumovax 23 Injection Injectable 25 MCG/0.5ML 14:44:24 CDT CPT-13041 First Vx - Ix admin for Medicare patients 14:44:24 CDT CPT-83675 Fluzone High-Dose Intramuscular Suspension 14:44:20 CDT CPT-92840 BMP - LAB USE ONLY 12:38:06 CDT CPT-23754 Urine Culture - LAB USE ONLY 16:56:33 CDT CPT-TCMM Transitional Care Mgmt-Moderate 18:08:16 CDT CPT-30903 Bone Density 09:14:12 CDT CPT-000 Give Appropriate Flu Vaccine 14:51:52 CDT CPT-30768 Fluzone High Dose (>=65 yrs.) 15:19:23 CDT CPT-07131 Immunization Single Admin 15:19:23 CDT CPT-39290 Prevnar 13 15:40:03 CDT CPT-60400 Administration single or combination vaccine inc oral 15 :40:03 CDT CPT-66965 Prevnar 13 13:55:07 CDT CPT-G0008 Administration of Influenza Virus Vaccine 10:49:51 CDT CPT-64969 Fluzone High-Dose Intramuscular Suspension 10:49:51 CDT CPT-99662 Knee 3V 13:31:37 CDT CPT-97504 Bone Density 09:07:05 PROGRAMMER DEVELOPER CPT-91652 Nail Avulsion 09:46:05 CDT CPT-38929 Administration single or combination vaccine inc oral 16 :11:54 CDT CPT-22494 Influenza High Dose age 65+ 16:11:54 CDT CPT-54332 Administration single or combination vaccine inc oral 10 :53:15 CDT CPT-24932 Influenza High Dose age 65+ 10:53:15 CDT CPT-96312 Bone Density 14:50:58 PROGRAMMER DEVELOPER CPT-33155 Administration single or combination vaccine inc oral 15 :41:20 PROGRAMMER DEVELOPER CPT-48137 Zoster Vaccine (Zostavax) 15:41:20 PROGRAMMER DEVELOPER CPT-67613 Spec Collection and Handling Fee 11:18:25 PROGRAMMER DEVELOPER CPT-23574 Administration single or combination vaccine inc oral 11 :14:20 CDT CPT-98042 Influenza High Dose age 65+ 11:14:20 CDT
--- OUTSIDE RECORDS SUMMARY | 2017-07-18 08:16 | XMS REPORT | Clinical Summary ---
Author Author Admin, DANDRE Organization [facility] Address Unknown Phone Unavailable Allergies, Adverse Reactions, Alerts Allergy Name Reaction Description Start Date Severity Status Provider NKDA Critical Active Mariaa Whitman FRAME NAILER Conditions or Problems Problem Name Problem Code Onset Date Status Entry Date Provider Comment Standard Description Annotate ROUTINE GYNECOLOGICAL EXAMINATION V72.31 Resolved Ana Cristina Vallejo MD PhD Routine gynecological examination MENOPAUSE 627.2 Ruled out Ana Cristina Vallejo MD PhD Symptomatic menopausal or female climacteric states MENOPAUSE 627.2 Active Brianda Reis [facility] Symptomatic menopausal or female climacteric states [...] tab BID for 7 days CIPROFLOXACIN HCL 04257769892 Active Deepti Junior LPN Active MACROBID 100 MG ORAL CAPS 1 tab BID for 5 days NITROFURANTOIN MONOHYD MACRO 89458621364 No Longer Active Deepti Junior LPN Active HYDROCHLOROTHIAZIDE 12.5 MG CAPS 1 pill by mouth daily HYDROCHLOROTHIAZIDE 91958768490 Active Jalil Hayes MD Active RANITIDINE HCL 150 MG CAPS once nightly RANITIDINE HCL 09532424508 Active Jalil Hayes MD Active BENAZEPRIL HCL 40 MG TABS 1 daily for blood pressure BENAZEPRIL HCL 70144608909 Active Jalil Hayes MD Active HYDROCHLOROTHIAZIDE 12.5 MG CAPS 1 pill by mouth daily, for blood pressure HYDROCHLOROTHIAZIDE 70781706645 No Longer Active Jalil Hayes MD Active AUGMENTIN 875-125 MG TAB 1 po BID x 7 days AMOXICILLIN-POT CLAVULANATE 11600579196 No Longer Active Jalil Hayes MD Active OMEPRAZOLE 40 MG CPDR 1 po q a.m. OMEPRAZOLE 84616355325 Active Peggy Pardo LPN Active MIRALAX ORAL PACK Takes daily prn POLYETHYLENE GLYCOL 3350 23428690262 No Longer Active Peggy Pardo LPN Active FLONASE ALLERGY RELIEF 50 MCG/ACT NASAL SUSP One spray each nostril daily for allergies FLUTICASONE PROPIONATE 11497779898 No Longer Active Peggy Pardo LPN Active BENADRYL ALLERGY 25 MG TABS NEEDED DIPHENHYDRAMINE HCL 51180588328 No Longer Active Peggy Pardo LPN Active ADVIL 200 MG TABS TAKE NEEDED IBUPROFEN 70258585585 No Longer Active Peggy Pardo LPN Active COLACE 100 MG CAP 1 po BID PRN Constipation DOCUSATE SODIUM 18836306861 No Longer Active Deepti Junior LPN Active ALPRAZOLAM 0.25 MG TAB 1/2-1 tablet by mouth twice a day as needed for stress ALPRAZOLAM 24636643557 No Longer Active Deepti Junior LPN Active ALENDRONATE SODIUM 70 MG TABS 1 pill by mouth weekly for osteoporosis ALENDRONATE SODIUM 76426131939 Active Mariaa Whitman APRN Active E-1000 1000 UNIT ORAL CAPS Take one by mouth daily VITAMIN E 80335272129 Active Brianda KNOTT Active OSCAL 500/200 D-3 500-200 MG-UNIT ORAL TABS Take one by mouth 3 times daily, morning, afternoon and evening.] CALCIUM CARBONATE-VITAMIN D 20938865653 Active Brianda KNOTT Active ASPIRIN 81 MG CHEW TAB 1 tablet by mouth daily ASPIRIN 72066513482 Active Brianda Reis HEDY Active ADULT ASPIRIN EC LOW STRENGTH 81 MG TBEC TAKE 1 TAB DAILY ASPIRIN 77489271223 No Longer Active Mariaa Whitman APRN Active ALENDRONATE SODIUM 70 MG TABS TAKE 1 TAB ONCE A WEEK ALENDRONATE SODIUM 97276817353 No Longer Active Mariaa Whitman APRN Active CETIRIZINE HCL 10 MG ORAL TABS 1 po qd PRN Allergies CETIRIZINE HCL 25123530041 Active HEDY Esquivel Active BACTRIM DS 800-160 MG TABS 1 pill by mouth twice daily, for UTI SULFAMETHOXAZOLE-TRIMETHOPRIM 93829970694 No Longer Active Ana Cristina Vallejo MD PhD Active CARVEDILOL 25 MG TABS 1 pill by mouth twice daily for blood pressure CARVEDILOL 36938626707 Active HEDY Esquivel Active SYNTHROID 0.088 MG TAB 1 tablet by mouth daily for thyroid LEVOTHYROXINE SODIUM 59270816157 Active HEDY Esquivel Active AMOXICILLIN 500 MG CAP 1 tab by mouth 3 times daily AMOXICILLIN 16637454425 No Longer Active Alden Kim MD Active CVS VITAMIN D3 1000 UNIT CAPS TAKE 2 CAP DAILY CHOLECALCIFEROL Active Ana Cristina Vallejo MD PhD Active CALCIUM 500 MG TABS TAKE 3 TABS DAILY CALCIUM 19426874381 No Longer Active Mariaa Whitman APRN Active MULTIVITAMINS TABS TAKE 1 TAB DAILY MULTIPLE VITAMIN Active Aneta Tavarezum YULIET Active TYLENOL 325 MG TABS NEEDED ACETAMINOPHEN 76594100058 Active Aneta Tavarezum CELLARS SUPERVISOR Active GLUCOSAMINE-CHONDROITIN 500-400 MG TABS TAKE 1 TAB DAILY GLUCOSAMINE-CHONDROITIN 57127416920 Active Mariaa Whitman APRN Active NORVASC 10 MG TABS TAKE 1 TAB DAILY AMLODIPINE BESYLATE 68101734627 Active HEDY Esquivel Active LOVASTATIN 20 MG TABS 1 PO Q HS FOR CHOLESTEROL LOVASTATIN 03723092832 Active HEDY Esquivel Active ALENDRONATE SODIUM 70 MG TABS TAKE 1 TAB ONCE A WEEK ALENDRONATE SODIUM 70 MG TABS 752430 ALENDRONATE SODIUM Inactive ADULT ASPIRIN EC LOW STRENGTH 81 MG TBEC TAKE 1 TAB DAILY ADULT ASPIRIN EC LOW STRENGTH 81 MG TBEC 230043 ASPIRIN Inactive ALPRAZOLAM 0.25 MG TAB 1/2-1 tablet by mouth twice a day as needed for stress ALPRAZOLAM 0.25 MG TAB 308464 ALPRAZOLAM Inactive COLACE 100 MG CAP 1 po BID PRN Constipation COLACE 100 MG CAP 1437137 DOCUSATE SODIUM Inactive ADVIL 200 MG TABS TAKE NEEDED ADVIL 200 MG TABS 131040 IBUPROFEN Inactive BENADRYL ALLERGY 25 MG TABS NEEDED BENADRYL ALLERGY 25 MG TABS 0568457 DIPHENHYDRAMINE HCL Inactive FLONASE ALLERGY RELIEF 50 MCG/ACT NASAL SUSP One spray each nostril daily for allergies FLONASE ALLERGY RELIEF 50 MCG/ACT NASAL SUSP 8329497 FLUTICASONE PROPIONATE Inactive MIRALAX ORAL PACK Takes daily prn MIRALAX ORAL PACK 478555 POLYETHYLENE GLYCOL 3350 Inactive AUGMENTIN 875-125 MG TAB 1 po BID x 7 days AUGMENTIN 875-125 MG TAB 193566 AMOXICILLIN-POT CLAVULANATE Inactive HYDROCHLOROTHIAZIDE 12.5 MG CAPS 1 pill by mouth daily, for blood pressure HYDROCHLOROTHIAZIDE 12.5 MG CAPS 081404 HYDROCHLOROTHIAZIDE Inactive AMOXICILLIN 500 MG CAP 1 tab by mouth 3 times daily AMOXICILLIN 500 MG CAP 672850 AMOXICILLIN Inactive BACTRIM DS 800-160 MG TABS 1 pill by mouth twice daily, for UTI BACTRIM DS 800-160 MG TABS 835265 SULFAMETHOXAZOLE-TRIMETHOPRIM Inactive MACROBID 100 MG ORAL CAPS 1 tab BID for 5 days MACROBID 100 MG ORAL CAPS 5180246 NITROFURANTOIN MONOHYD MACRO Inactive Advance Directives Directive [...] Panel - Chemistry sodium, serum 130 mmol/L 102-622 0475/10/19 potassium, serum 3.5 mmol/L 3.5-5.2 chloride, serum 92 mmol/L 98-107 carbon dioxide, venous blood 33.6 mmol/L 21.0-32.0 blood glucose 118 mg/dL 65-110 calcium, serum 8.8 mg/dL 8.5-10.1 urea nitrogen, blood 11 mg/dL 7-18 creatinine, serum 1.12 mg/dL 0.55-1.30 sodium, serum 132 mmol/L 184-796 0745/08/09 potassium, serum 4.2 mmol/L 3.5-5.2 chloride, serum 99 mmol/L 98-107 carbon dioxide, venous blood 24.7 mmol/L 21.0-32.0 blood glucose 119 mg/dL 65-110 calcium, serum 8.5 mg/dL 8.5-10.1 urea nitrogen, blood 14 mg/dL 7-18 creatinine, serum 1.16 mg/dL 0.60-1.30 Lab Report: CBC-QUEST, COMPREHENSIVE METABOLIC PANEL, LIPID PANEL, Micro ... - Chemistry cholesterol, serum 162 mg/dL 128-898 1310/05/01 HDL cholesterol, serum 68 mg/dL > OR=46 [...] % 11.0-15.0 platelet count 297 THOUSAND/UL 10*3/mm3 679-983 1621/05/01 mean platelet volume 8.9 fL 7.5-12.5 Lab [...] 5.0-8.5 Encounters Code Encounter Date Provider Facility CPT-46798 Level 3 Est. Patient 13:55:49 CDT Jalil Hayes MD [facility] CPT-49651 Level 3 Est. Patient 14:38:15 CDT Jalil Hayes MD [facility] CPT-72297 Level 4 Est. Patient 14:40:54 CDT Bee Rosas [facility] CPT-68808 Level 4 Est. Patient 10:31:15 CDT Jalil Hayes MD [facility] CPT-38176 Level 4 Est. Patient 15:07:54 CDT Mariaa Wihtman [facility] CPT-87872 Level 3 Est. Patient 20:45:54 DIRECTOR PERSONAL Mariaa Whitman FRAME NAILER [facility] CPT-86344 Level 3 Est. Patient 12:16:16 CDT Ana Cristina Vallejo MD [facility] CPT-93814 Level 4 Est. Patient 12:49:21 CDT Ana Cristina Vallejo MD [facility] CPT-12421 Level 4 Est. Patient 23:02:25 CDT Ana Cristina Vallejo MD [facility] CPT-72609 Level 4 Est. Patient 19:26:33 DIRECTOR PERSONAL Ana Cristina Vallejo MD [facility] CPT-42183 Level 4 Est. Patient 11:28:14 CDT Ana Cristina Vallejo MD [facility] CPT-15993 Level 4 Est. Patient 15:35:46 DIRECTOR PERSONAL Ana Cristina Vallejo MD [facility] CPT-64362 Level 3 Est. Patient 21:06:39 DIRECTOR PERSONAL Alden Kim MD [facility] CPT-74932 Level 4 Est. Patient 15:30:54 DIRECTOR PERSONAL Ana Cristina Vallejo MD [facility] Procedures Code Procedure Name Date Entry Date Standard Description CPT-TCMM Transitional Care Mgmt-Moderate 14:41:55 CDT CPT-07151 EKG Trac and Interp - XRAY USE ONLY 10:35:11 CDT 09/11 CPT-89798 Chest 2V Frontal and Lat - XRAY USE ONLY 10:35:11 CDT CPT-G0438 Initial Annual Wellness Exam 14:54:07 CDT CPT-G0009 Administration of Pneumococcal Vaccine 14:44:24 CDT CPT-69705 Pneumovax 23 Injection Injectable 25 MCG/0.5ML 14:44:24 CDT CPT-37536 First Vx - Ix admin for Medicare patients 14:44:24 CDT CPT-34727 Fluzone High-Dose Intramuscular Suspension 14:44:20 CDT CPT-35812 BMP - LAB USE ONLY 12:38:06 CDT CPT-58203 Urine Culture - LAB USE ONLY 16:56:33 CDT CPT-TCMM Transitional Care Mgmt-Moderate 18:08:16 CDT CPT-69793 Bone Density 09:14:12 CDT CPT-000 Give Appropriate Flu Vaccine 14:51:52 CDT CPT-56219 Fluzone High Dose (>=65 yrs.) 15:19:23 CDT CPT-86695 Immunization Single Admin 15:19:23 CDT CPT-43660 Prevnar 13 15:40:03 CDT CPT-16679 Administration single or combination vaccine inc oral 15 :40:03 CDT CPT-58904 Prevnar 13 13:55:07 CDT CPT-G0008 Administration of Influenza Virus Vaccine 10:49:51 CDT CPT-58668 Fluzone High-Dose Intramuscular Suspension 10:49:51 CDT CPT-67319 Knee 3V 13:31:37 CDT CPT-61950 Bone Density 09:07:05 DIRECTOR PERSONAL CPT-40618 Nail Avulsion 09:46:05 CDT CPT-33028 Administration single or combination vaccine inc oral 16 :11:54 CDT CPT-96707 Influenza High Dose age 65+ 16:11:54 CDT CPT-66014 Administration single or combination vaccine inc oral 10 :53:15 CDT CPT-71609 Influenza High Dose age 65+ 10:53:15 CDT CPT-21629 Bone Density 14:50:58 DIRECTOR PERSONAL CPT-33861 Administration single or combination vaccine inc oral 15 :41:20 DIRECTOR PERSONAL CPT-18899 Zoster Vaccine (Zostavax) 15:41:20 DIRECTOR PERSONAL CPT-58288 Spec Collection and Handling Fee 11:18:25 DIRECTOR PERSONAL CPT-78232 Administration single or combination vaccine inc oral 11 :14:20 CDT CPT-14218 Influenza High Dose age 65+ 11:14:20 CDT
--- OUTSIDE RECORDS SUMMARY | 2017-07-18 08:16 | XMS REPORT | Clinical Summary ---
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 Conditions or Problems Problem Name Problem Code Onset Date Status Entry Date Provider Comment Standard Description Annotate ROUTINE GYNECOLOGICAL EXAMINATION V72.31 Resolved Ana Cristina Vallejo MD PhD Routine gynecological examination MENOPAUSE 627.2 Ruled out Ana Cristina Vallejo MD PhD Symptomatic menopausal or female climacteric states MENOPAUSE 627.2 Active Brianda Reis [facility] Symptomatic menopausal or female climacteric states DIVERTICULOSIS, [...] nail HEALTH SCREENING V70.0 Resolved Ana Cristina Vlalejo MD PhD Routine general medical examination at [...] 1 daily for blood pressure BENAZEPRIL HCL 78339803700 Active Jalil Hayes MD Active HYDROCHLOROTHIAZIDE 12.5 MG CAPS 1 pill by mouth daily, for blood pressure HYDROCHLOROTHIAZIDE 17076393672 No Longer Active Jalil Hayes MD Active AUGMENTIN 875-125 MG TAB 1 po BID x 7 days AMOXICILLIN-POT CLAVULANATE 87928431806 No Longer Active Jalil Hayes MD Active OMEPRAZOLE 40 MG CPDR 1 po q a.m. OMEPRAZOLE 06143020222 Active Peggy Pardo LPN Active MIRALAX ORAL PACK Takes daily prn POLYETHYLENE GLYCOL 3350 83067045395 No Longer Active Peggy Pardo LPN Active FLONASE ALLERGY RELIEF 50 MCG/ACT NASAL SUSP One spray each nostril daily for allergies FLUTICASONE PROPIONATE 30592684925 No Longer Active Peggy Pardo LPN Active BENADRYL ALLERGY 25 MG TABS NEEDED DIPHENHYDRAMINE HCL 24497761885 No Longer Active Peggy Pardo LPN Active ADVIL 200 MG TABS TAKE NEEDED IBUPROFEN 92856477347 No Longer Active Peggy Edvin, CELL TUBER HAND Active COLACE 100 MG CAP 1 po BID PRN Constipation DOCUSATE SODIUM 32760035383 No Longer Active Deeptitayler Junior LPN Active ALPRAZOLAM 0.25 MG TAB 1/2-1 tablet by mouth twice a day as needed for stress ALPRAZOLAM 91169719145 No Longer Active Deepti Sandi ANGUIANON Active ALENDRONATE SODIUM 70 MG TABS 1 pill by mouth weekly for osteoporosis ALENDRONATE SODIUM 44566766611 Active Briandahelen Reis Robin Active E-1000 1000 UNIT ORAL CAPS Take one by mouth daily VITAMIN E 25582076878 Active Brianda Reis Robin Active OSCAL 500/200 D-3 500-200 MG-UNIT ORAL TABS Take one by mouth 3 times daily, morning, afternoon and evening.] CALCIUM CARBONATE-VITAMIN D 14449093507 Active Brianda KNOTT Active ASPIRIN 81 MG CHEW TAB 1 tablet by mouth daily ASPIRIN 71079079396 Active Brianda Reis Robin Active ADULT ASPIRIN EC LOW STRENGTH 81 MG TBEC TAKE 1 TAB DAILY ASPIRIN 32987475220 No Longer Active Mariaa Whitman 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 ALARM INSTALLER Active ALENDRONATE SODIUM 70 MG TABS TAKE 1 TAB ONCE A WEEK ALENDRONATE SODIUM 39002483805 No Longer Active Mariaa Whitman SECURITY ALARM INSTALLER Active CETIRIZINE HCL 10 MG ORAL TABS 1 po qd PRN Allergies CETIRIZINE HCL 55659793422 Active HEDY Esquivel Active BACTRIM DS 800-160 MG TABS 1 pill by mouth twice daily, for UTI SULFAMETHOXAZOLE-TRIMETHOPRIM 48884595470 No Longer Active Ana Cristina Vallejo MD PhD Active CARVEDILOL 25 MG TABS 1 pill by mouth twice daily for blood pressure CARVEDILOL 73831200568 Active HEDY Esquivel Active SYNTHROID 0.088 MG TAB 1 tablet by mouth daily for thyroid LEVOTHYROXINE SODIUM 40749798250 Active HEDY Esquivel Active AMOXICILLIN 500 MG CAP 1 tab by mouth 3 times daily AMOXICILLIN 77143932984 No Longer Active Alden Kim MD Active CVS VITAMIN D3 1000 UNIT CAPS TAKE 2 CAP DAILY CHOLECALCIFEROL Active Ana Cristina Vallejo MD PhD Active CALCIUM 500 MG TABS TAKE 3 TABS DAILY CALCIUM 00687038080 No Longer Active Mariaa Whitman APRN Active MULTIVITAMINS TABS TAKE 1 TAB DAILY MULTIPLE VITAMIN Active Aneta D Leo CELL TUBER HAND Active TYLENOL 325 MG TABS NEEDED ACETAMINOPHEN 50795092636 Active Aneta Singh Leo CELL TUBER HAND Active GLUCOSAMINE-CHONDROITIN 500-400 MG TABS TAKE 1 TAB DAILY GLUCOSAMINE-CHONDROITIN 50832666794 Active Mariaa Whitman APRN Active NORVASC 10 MG TABS TAKE 1 TAB DAILY AMLODIPINE BESYLATE 46874083242 Active HEDY Esquivel Active LOVASTATIN 20 MG TABS 1 PO Q HS FOR CHOLESTEROL LOVASTATIN 41849994249 Active HEDY Esquivel Active RANITIDINE HCL 150 MG CAPS 1 PO Q 12 HRS RANITIDINE HCL 95494892246 Active HEDY Esquivel Active ALENDRONATE SODIUM 70 MG TABS TAKE 1 TAB ONCE A WEEK ALENDRONATE SODIUM 70 MG TABS 785033 ALENDRONATE SODIUM Inactive ADULT ASPIRIN EC LOW STRENGTH 81 MG TBEC TAKE 1 TAB DAILY ADULT ASPIRIN EC LOW STRENGTH 81 MG TBEC 711344 ASPIRIN Inactive ALPRAZOLAM 0.25 MG TAB 1/2-1 tablet by mouth twice a day as needed for stress ALPRAZOLAM 0.25 MG TAB 688505 ALPRAZOLAM Inactive COLACE 100 MG CAP 1 po BID PRN Constipation COLACE 100 MG CAP 4475247 DOCUSATE SODIUM Inactive ADVIL 200 MG TABS TAKE NEEDED ADVIL 200 MG TABS 471027 IBUPROFEN Inactive BENADRYL ALLERGY 25 MG TABS NEEDED BENADRYL ALLERGY 25 MG TABS 5725311 DIPHENHYDRAMINE HCL Inactive FLONASE ALLERGY RELIEF 50 MCG/ACT NASAL SUSP One spray each nostril daily for allergies FLONASE ALLERGY RELIEF 50 MCG/ACT NASAL SUSP 0607952 FLUTICASONE PROPIONATE Inactive MIRALAX ORAL PACK Takes daily prn MIRALAX ORAL PACK 745200 POLYETHYLENE GLYCOL 3350 Inactive AUGMENTIN 875-125 MG TAB 1 po BID x 7 days AUGMENTIN 875-125 MG TAB 986304 AMOXICILLIN-POT CLAVULANATE Inactive HYDROCHLOROTHIAZIDE 12.5 MG CAPS 1 pill by mouth daily, for blood pressure HYDROCHLOROTHIAZIDE 12.5 MG CAPS 727026 HYDROCHLOROTHIAZIDE Inactive AMOXICILLIN 500 MG CAP 1 tab by mouth 3 times daily AMOXICILLIN 500 MG CAP 175854 AMOXICILLIN Inactive BACTRIM DS 800-160 MG TABS 1 pill by mouth twice daily, for UTI BACTRIM DS 800-160 MG TABS 989567 SULFAMETHOXAZOLE-TRIMETHOPRIM Inactive Advance Directives Directive Description Start Date PERMISSION TO SHARE Immunizations Vaccine Administration Date Value Standard Description influenza immunization (Flu Vax) has been administered given influenza virus vaccine, unspecified formulation dT (Diphtheria and Tetanus) booster given TD Td(adult) unspecified formulation pneumococcal immunization administered Pneumovax 23 pneumococcal polysaccharide vaccine, 23 valent Vital Signs Date Name Value Unit Range Description blood pressure, diastolic 47 mm[Hg] BP womack [...] Panel - Chemistry sodium, serum 130 mmol/L 427-330 9693/10/19 potassium, serum 3.5 mmol/L 3.5-5.2 chloride, serum 92 mmol/L 98-107 carbon dioxide, venous blood 33.6 mmol/L 21.0-32.0 blood glucose 118 mg/dL 65-110 calcium, serum 8.8 mg/dL 8.5-10.1 urea nitrogen, blood 11 mg/dL 7-18 creatinine, serum 1.12 mg/dL 0.55-1.30 Lab Report: CBC-QUEST, COMPREHENSIVE METABOLIC PANEL, LIPID PANEL, Micro ... - Chemistry cholesterol, serum 162 mg/dL 028-190 1483/05/01 HDL cholesterol, serum 68 mg/dL > OR=46 [...] % 11.0-15.0 platelet count 297 THOUSAND/UL 10*3/mm3 961-858 2732/05/01 mean platelet volume 8.9 fL 7.5-12.5 Lab [...] Negative Encounters Code Encounter Date Provider Facility [facility]-[id number] Level 3 Est. Patient 14:38:15 CDT Jalil Hayes MD [facility]-56234 Level 4 Est. Patient 14:40:54 CDT Bee Rosas [facility]-37629 Level 4 Est. Patient 10:31:15 CDT Jalil Hayes MD [facility]-62400 Level 4 Est. Patient 15:07:54 CDT Mariaa Whitman [facility]-96016 Level 3 Est. 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 Patient 12:16:16 CDT Ana Cristina Vallejo MD [facility]51150 Level 4 Est. Patient 12:49:21 CDT Ana Cristina Vallejo MD [facility]12879 Level 4 Est. Patient 23:02:25 CDT Ana Cristina Vallejo MD [facility]57705 Level 4 Est. Patient 19:26:33 UNIX SYSTEM ADMINISTRATOR Ana Cristina Vallejo MD [facility]37504 Level 4 Est. Patient 11:28:14 CDT Ana Cristina Vallejo MD [facility]97455 Level 4 Est. Patient 15:35:46 UNIX SYSTEM ADMINISTRATOR Ana Cristina Vallejo MD [facility]55116 Level 3 Est. Patient 21:06:39 UNIX SYSTEM ADMINISTRATOR Alden Kim MD [facility] CPT-83199 Level 4 Est. Patient 15:30:54 UNIX SYSTEM ADMINISTRATOR Ana Cristina Vallejo MD PhD [facility] Procedures Code Procedure Name Date Entry Date Standard Description CPT-TCMM Transitional Care Mgmt-Moderate 14:41:55 CDT CPT-61416 EKG Trac and Interp - XRAY USE ONLY 10:35:11 CDT 09/11 CPT-17949 Chest 2V Frontal and Lat - XRAY USE ONLY 10:35:11 CDT CPT-G0438 Initial Annual Wellness Exam 14:54:07 CDT CPT-G0009 Administration of Pneumococcal Vaccine 14:44:24 CDT CPT-41723 Pneumovax 23 Injection Injectable 25 MCG/0.5ML 14:44:24 CDT CPT-31766 First Vx - Ix admin for Medicare patients 14:44:24 CDT CPT-23504 Fluzone High-Dose Intramuscular Suspension 14:44:20 CDT CPT-31151 BMP - LAB USE ONLY 12:38:06 CDT CPT-24576 Urine Culture - LAB USE ONLY 16:56:33 CDT CPT-TCMM Transitional Care Mgmt-Moderate 18:08:16 CDT CPT-55956 Bone Density 09:14:12 CDT CPT-000 Give Appropriate Flu Vaccine 14:51:52 CDT CPT-99003 Fluzone High Dose (>=65 yrs.) 15:19:23 CDT CPT-84390 Immunization Single Admin 15:19:23 CDT CPT-35007 Prevnar 13 15:40:03 CDT CPT-62657 Administration single or combination vaccine inc oral 15 :40:03 CDT CPT-28524 Prevnar 13 13:55:07 CDT CPT-G0008 Administration of Influenza Virus Vaccine 10:49:51 CDT CPT-99889 Fluzone High-Dose Intramuscular Suspension 10:49:51 CDT CPT-74426 Knee 3V 13:31:37 CDT CPT-56091 Bone Density 09:07:05 UNIX SYSTEM ADMINISTRATOR CPT-02954 Nail Avulsion 09:46:05 CDT CPT-36518 Administration single or combination vaccine inc oral 16 :11:54 CDT CPT-97191 Influenza High Dose age 65+ 16:11:54 CDT CPT-85273 Administration single or combination vaccine inc oral 10 :53:15 CDT CPT-33426 Influenza High Dose age 65+ 10:53:15 CDT CPT-63111 Bone Density 14:50:58 UNIX SYSTEM ADMINISTRATOR CPT-30111 Administration single or combination vaccine inc oral 15 :41:20 UNIX SYSTEM ADMINISTRATOR CPT-77655 Zoster Vaccine (Zostavax) 15:41:20 UNIX SYSTEM ADMINISTRATOR CPT-13014 Spec Collection and Handling Fee 11:18:25 UNIX SYSTEM ADMINISTRATOR CPT-15999 Administration single or combination vaccine inc oral 11 :14:20 CDT CPT-66979 Influenza High Dose age 65+ 11:14:20 CDT
--- OUTSIDE RECORDS SUMMARY | 2017-07-18 08:17 | XMS REPORT | Clinical Summary ---
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 Conditions or Problems Problem Name Problem Code Onset Date Status Entry Date Provider Comment Standard Description Annotate ROUTINE GYNECOLOGICAL EXAMINATION V72.31 Resolved Ana Cristina Vallejo MD PhD Routine gynecological examination MENOPAUSE 627.2 Ruled out Ana Cristina Vallejo MD PhD Symptomatic menopausal or female climacteric states MENOPAUSE 627.2 Active Brianda Reis [facility] Symptomatic menopausal or female climacteric states DIVERTICULOSIS, [...] a day as needed for stress ALPRAZOLAM 43830921946 Active Mariaa Whitman APRN Active COLACE 100 MG CAP 1 po BID PRN Constipation DOCUSATE SODIUM 63271890894 Active Mariaa Antonette SWARTZN Active MIRALAX ORAL PACK Takes daily prn POLYETHYLENE GLYCOL 3350 74490757252 Active Mariaa Atkinsonum AIRPORT TOWER CONTROLLER Active ALENDRONATE SODIUM 70 MG TABS 1 pill by mouth weekly for osteoporosis ALENDRONATE SODIUM 85430641144 Active Brianda RICK Active E-1000 1000 UNIT ORAL CAPS Take one by mouth daily VITAMIN E 12859928248 Active Brianda KNOTT Active OSCAL 500/200 D-3 500-200 MG-UNIT ORAL TABS Take one by mouth 3 times daily, morning, afternoon and evening.] CALCIUM CARBONATE-VITAMIN D 79383929980 Active Brianda RICK Active ASPIRIN 81 MG CHEW TAB 1 tablet by mouth daily ASPIRIN 32099921450 Active Brianda RICK Active ADULT ASPIRIN EC LOW STRENGTH 81 MG TBEC TAKE 1 TAB DAILY ASPIRIN 14169798151 No Longer Active Mariaa Whitman APRN Active ALENDRONATE SODIUM 70 MG TABS TAKE 1 TAB ONCE A WEEK ALENDRONATE SODIUM 28684199617 No Longer Active Mariaa Whitman APRN Active FLONASE ALLERGY RELIEF 50 MCG/ACT NASAL SUSP One spray each nostril daily for allergies FLUTICASONE PROPIONATE 97395407758 Active Mariaa Whitman APRN Active CETIRIZINE HCL 10 MG ORAL TABS 1 po qd PRN Allergies CETIRIZINE HCL 93505493737 Active Mariaa Whitman APRN Active BACTRIM DS 800-160 MG TABS 1 pill by mouth twice daily, for UTI SULFAMETHOXAZOLE-TRIMETHOPRIM 83674865767 No Longer Active Ana Cristina Vallejo MD PhD Active HYDROCHLOROTHIAZIDE 12.5 MG CAPS 1 pill by mouth daily, for blood pressure HYDROCHLOROTHIAZIDE 25960130225 Active Mraiaa Whitman APRN Active CARVEDILOL 25 MG TABS 1 pill by mouth twice daily for blood pressure CARVEDILOL 80036589108 Active Mariaa Whitman APRN Active SYNTHROID 0.088 MG TAB 1 tablet by mouth daily for thyroid LEVOTHYROXINE SODIUM 95712216087 Active Mariaa Yokum AIRPORT TOWER CONTROLLER Active AMOXICILLIN 500 MG CAP 1 tab by mouth 3 times daily AMOXICILLIN 49775961815 No Longer Active Alden Kim MD Active CVS VITAMIN D3 1000 UNIT CAPS TAKE 2 CAP DAILY CHOLECALCIFEROL Active Ana Cristina Vallejo MD PhD Active CALCIUM 500 MG TABS TAKE 3 TABS DAILY CALCIUM 19745815766 No Longer Active Mariaa Yoxuanum AIRPORT TOWER CONTROLLER Active MULTIVITAMINS TABS TAKE 1 TAB DAILY MULTIPLE VITAMIN Active Aneta D Leo [employer] BOOK WRITER Active BENADRYL ALLERGY 25 MG TABS NEEDED DIPHENHYDRAMINE HCL 44953928901 Active Aneta D Leo [employer]OR[employer] BOOK WRITER Active TYLENOL 325 MG TABS NEEDED ACETAMINOPHEN 04559987369 Active Aneta D Leo [employer] BOOK WRITER Active ADVIL 200 MG TABS TAKE NEEDED IBUPROFEN 80873934540 Active Antea D Leo [employer]ORTS BOOK WRITER Active GLUCOSAMINE-CHONDROITIN 500-400 MG TABS TAKE 1 TAB DAILY GLUCOSAMINE-CHONDROITIN 57292374174 Active Mariaa Yokum AIRPORT TOWER CONTROLLER Active NORVASC 10 MG TABS TAKE 1 TAB DAILY AMLODIPINE BESYLATE 35647762757 Active Mariaa Yokum AIRPORT TOWER CONTROLLER Active BENAZEPRIL HCL 40 MG TABS 1 PO BID BENAZEPRIL HCL 16451745849 Active Mariaa Demetrioum AIRPORT TOWER CONTROLLER Active LOVASTATIN 20 MG TABS 1 PO Q HS FOR CHOLESTEROL LOVASTATIN 58424806322 Active Mariaa Yokum AIRPORT TOWER CONTROLLER Active RANITIDINE HCL 150 MG CAPS 1 PO Q 12 HRS RANITIDINE HCL 82202591095 Active Mariaa Yokum AIRPORT TOWER CONTROLLER Active ALENDRONATE SODIUM 70 MG TABS TAKE 1 TAB ONCE A WEEK ALENDRONATE SODIUM 70 MG TABS 620656 ALENDRONATE SODIUM Inactive ADULT ASPIRIN EC LOW STRENGTH 81 MG TBEC TAKE 1 TAB DAILY ADULT ASPIRIN EC LOW STRENGTH 81 MG TBEC 864719 ASPIRIN Inactive AMOXICILLIN 500 MG CAP 1 tab by mouth 3 times daily AMOXICILLIN 500 MG CAP 628400 AMOXICILLIN Inactive BACTRIM DS 800-160 MG TABS 1 pill by mouth twice daily, for UTI BACTRIM DS 800-160 MG TABS 094022 SULFAMETHOXAZOLE-TRIMETHOPRIM Inactive Advance Directives Directive Description Start [...] Panel - Chemistry sodium, serum 130 mmol/L 408-756 6597/10/19 potassium, serum 3.5 mmol/L 3.5-5.2 chloride, serum [...] 1.41 ng/dL 0.76-1.46 cholesterol, serum 166 mg/dL 014-342 3830/04/20 triglyceride, serum, fasting 68 mg/dL 30-200 HDL cholesterol, serum 88 mg/dL 32-96 LDL cholesterol, serum 64 mg/dL 0-130 sodium, serum 132 mmol/L 394-898 6075/04/20 carbon dioxide, venous blood 31.3 mmol/L 21.0-32.0 [...] 5.0-8.5 Encounters Code Encounter Date Provider Facility CPT-83748 Level 4 Est. Patient 15:07:54 CDT Mariaa Whitman [facility] CPT-39338 Level 3 Est. Patient 20:45:54 FOREIGN AGENT Mariaa Whitman [facility] CPT-94460 Level 3 Est. Patient 12:16:16 CDT Ana Cristina Vallejo MD [facility]-62555 Level 4 Est. Patient 12:49:21 CDT Ana Cristina Vallejo MD [facility] CPT-30205 Level 4 Est. Patient 23:02:25 CDT Ana Cristina Vallejo MD [facility]-47454 Level 4 Est. Patient 19:26:33 FOREIGN AGENT Ana Cristina Vallejo MD [facility]-38273 Level 4 Est. Patient 11:28:14 CDT Ana Cristina Vallejo MD [facility]-55508 Level 4 Est. Patient 15:35:46 FOREIGN AGENT Ana Cristina Vallejo MD [facility] CPT-64960 Level 3 Est. Patient 21:06:39 FOREIGN AGENT Alden Kim MD [facility] CPT-35709 Level 4 Est. Patient 15:30:54 FOREIGN AGENT Ana Cristina Vallejo MD [facility] Procedures Code Procedure Name Date Entry Date Standard Description CPT-G0438 Initial Annual Wellness Exam 14:54:07 CDT CPT-G0009 Administration of Pneumococcal Vaccine 14:44:24 CDT CPT-65000 Pneumovax 23 Injection Injectable 25 MCG/0.5ML 14:44:24 CDT CPT-60156 First Vx - Ix admin for Medicare patients 14:44:24 CDT CPT-42851 Fluzone High-Dose Intramuscular Suspension 14:44:20 CDT CPT-37819 BMP - LAB USE ONLY 12:38:06 CDT CPT-57564 Urine Culture - LAB USE ONLY 16:56:33 CDT CPT-TCMM Transitional Care Mgmt-Moderate 18:08:16 CDT CPT-35265 Bone Density 09:14:12 CDT CPT-000 Give Appropriate Flu Vaccine 14:51:52 CDT CPT-76269 Fluzone High Dose (>=65 yrs.) 15:19:23 CDT CPT-84073 Immunization Single Admin 15:19:23 CDT CPT-33413 Prevnar 13 15:40:03 CDT CPT-01204 Administration single or combination vaccine inc oral 15 :40:03 CDT CPT-45559 Prevnar 13 13:55:07 CDT CPT-G0008 Administration of Influenza Virus Vaccine 10:49:51 CDT CPT-27345 Fluzone High-Dose Intramuscular Suspension 10:49:51 CDT CPT-63212 Knee 3V 13:31:37 CDT CPT-35196 Bone Density 09:07:05 FOREIGN AGENT CPT-28871 Nail Avulsion 09:46:05 CDT CPT-07974 Administration single or combination vaccine inc oral 16 :11:54 CDT CPT-15727 Influenza High Dose age 65+ 16:11:54 CDT CPT-18010 Administration single or combination vaccine inc oral 10 :53:15 CDT CPT-88581 Influenza High Dose age 65+ 10:53:15 CDT CPT-47818 Bone Density 14:50:58 FOREIGN AGENT CPT-88008 Administration single or combination vaccine inc oral 15 :41:20 FOREIGN AGENT CPT-84273 Zoster Vaccine (Zostavax) 15:41:20 FOREIGN AGENT CPT-01309 Spec Collection and Handling Fee 11:18:25 FOREIGN AGENT CPT-92606 Administration single or combination vaccine inc oral 11 :14:20 CDT CPT-16015 Influenza High Dose age 65+ 11:14:20 CDT
--- OUTSIDE RECORDS SUMMARY | 2017-07-18 08:17 | XMS REPORT | Clinical Summary ---
Author Author Admin, HUYENE Organization [facility] [employer] Address Unknown Phone Unavailable Allergies, Adverse Reactions, Alerts Allergy Name Reaction Description Start Date Severity Status Provider No Known Allergies Paula Shailesh RMA Conditions or Problems Problem Name Problem [...] APRN Encounters for other specified administrative purpose INGROWN TOENAIL, INFECTED ICD-703.0 Inactive Ana Cristina Vallejo MD PhD ROUTINE GYNECOLOGICAL EXAMINATION ICD-V72.31 Inactive Ana Cristina Vallejo MD PhD INGROWN TOENAIL ICD-703.0 Inactive Ana Cristina Vallejo MD PhD HEALTH SCREENING ICD-V70.0 Inactive Ana Cristina Vallejo MD PhD Medication List Medication Instructions Start Date Stop Date Generic Name NDC Status Provider Patient Instruction ALENDRONATE SODIUM 70 MG TABS 1 pill by mouth weekly for osteoporosis ALENDRONATE SODIUM 54026180463 Active Brianda Reis [facility] Active E-1000 1000 UNIT ORAL CAPS Take one by mouth daily VITAMIN E 79715401378 Active Brianda KNOTT Active OSCAL 500/200 D-3 500-200 MG-UNIT ORAL TABS Take one by mouth 3 times daily, morning, afternoon and evening.] CALCIUM CARBONATE-VITAMIN D 35565689479 Active Brianda KNOTT Active ASPIRIN 81 MG CHEW TAB 1 tablet by mouth daily ASPIRIN 34812874613 Active Brianda RICK Active ADULT ASPIRIN EC LOW STRENGTH 81 MG TBEC TAKE 1 TAB DAILY ASPIRIN 87815352126 No Longer Active Mairaa Whitman APRN Active ALENDRONATE SODIUM 70 MG TABS TAKE 1 TAB ONCE A WEEK ALENDRONATE SODIUM 91503979741 No Longer Active Mariaa Whitman APRN Active FLONASE ALLERGY RELIEF 50 MCG/ACT NASAL SUSP One spray each nostril daily for allergies FLUTICASONE PROPIONATE 13757405740 Active Mariaa Whitman APRN Active CETIRIZINE HCL 10 MG ORAL TABS 1 po qd PRN Allergies CETIRIZINE HCL 80426943543 Active Mariaa Whitman APRN Active BACTRIM DS 800-160 MG TABS 1 pill by mouth twice daily, for UTI SULFAMETHOXAZOLE-TRIMETHOPRIM 05569132800 No Longer Active Ana Cristina Vallejo MD PhD Active HYDROCHLOROTHIAZIDE 12.5 MG CAPS 1 pill by mouth daily, for blood pressure HYDROCHLOROTHIAZIDE 80619632802 Active Mariaa Whitman APRN Active CARVEDILOL 25 MG TABS 1 pill by mouth twice daily for blood pressure CARVEDILOL 15608594673 Active Mariaa Whitman APRN Active SYNTHROID 0.088 MG TAB 1 tablet by mouth daily for thyroid LEVOTHYROXINE SODIUM 62797649851 Active Mariaa Whitman APRN Active AMOXICILLIN 500 MG CAP 1 tab by mouth 3 times daily AMOXICILLIN 03444147299 No Longer Active Alden Kim MD Active [facility] VITAMIN D3 1000 UNIT CAPS TAKE 2 CAP DAILY CHOLECALCIFEROL Active Ana Crisitna Vallejo MD PhD Active CALCIUM 500 MG TABS TAKE 3 TABS DAILY CALCIUM 32359602597 No Longer Active Mariaa Whitman SCOW DERRICK OPERATOR Active MULTIVITAMINS TABS TAKE 1 TAB DAILY MULTIPLE VITAMIN Active Aneta Tavarezum UNIT SECRETARY Active BENADRYL ALLERGY 25 MG TABS NEEDED DIPHENHYDRAMINE HCL 21214842431 Active Aneta Tavarezum UNIT SECRETARY Active TYLENOL 325 MG TABS NEEDED ACETAMINOPHEN 85747843715 Active Aneta Tavarezum UNIT SECRETARY Active ADVIL 200 MG TABS TAKE NEEDED IBUPROFEN 26420572894 Active Aneta Tavarezum UNIT SECRETARY Active GLUCOSAMINE-CHONDROITIN 500-400 MG TABS TAKE 1 TAB DAILY GLUCOSAMINE-CHONDROITIN 91383947851 Active Mariaa Whitman SCOW DERRICK OPERATOR Active NORVASC 10 MG TABS TAKE 1 TAB DAILY AMLODIPINE BESYLATE 07920127655 Active Mariaa Atkinsonum SCOW DERRICK OPERATOR Active BENAZEPRIL HCL 40 MG TABS 1 PO BID BENAZEPRIL HCL 49975672177 Active Mariaa Whitman SCOW DERRICK OPERATOR Active LOVASTATIN 20 MG TABS 1 PO Q HS FOR CHOLESTEROL LOVASTATIN 21339696690 Active Mariaa Whitman SCOW DERRICK OPERATOR Active RANITIDINE HCL 150 MG CAPS 1 PO Q 12 HRS RANITIDINE HCL 60461857575 Active Mariaa Whitman SCOW DERRICK OPERATOR Active ALENDRONATE SODIUM 70 MG TABS TAKE 1 TAB ONCE A WEEK ALENDRONATE SODIUM 70 MG TABS 677471 ALENDRONATE SODIUM Inactive ADULT ASPIRIN EC LOW STRENGTH 81 MG TBEC TAKE 1 TAB DAILY ADULT ASPIRIN EC LOW STRENGTH 81 MG TBEC 950053 ASPIRIN Inactive AMOXICILLIN 500 MG CAP 1 tab by mouth 3 times daily AMOXICILLIN 500 MG CAP 602715 AMOXICILLIN Inactive BACTRIM DS 800-160 MG TABS 1 pill by mouth twice daily, for UTI BACTRIM DS 800-160 MG TABS 355552 SULFAMETHOXAZOLE-TRIMETHOPRIM Inactive Advance Directives Directive Description Start [...] Thyroxine (L), Lipid P ... - Chemistry LDL cholesterol, serum 64 mg/dL 0-130 TSH 1.84 m[iU]/mL 0.36-3.74 sodium, serum 132 mmol/L 289-038 2330/04/20 carbon dioxide, venous blood 31.3 mmol/L 21.0-32.0 [...] 32-96 triglyceride, serum, fasting 68 mg/dL 30-200 cholesterol, serum 166 mg/dL 268-805 1750/04/20 thyroxine, serum, free 1.41 ng/dL 0.76-1.46 Lab Report: Thyroid Stimulating Hormone (L), Free Thyroxine (L), Lipid P ... - Hematology hematocrit, blood 35.8 % 36.0-46.0 hemoglobin, blood 11.9 g/dL 12.0-16.0 erythrocyte (RBC) count 3.87 10^6/MM^3 10*6/mm3 4.04-5.48 leukocyte count, blood 5.4 10^3/MM^3 10*3/mm3 4.6-10.2 mean corpuscular volume, RBC 93 fL 80-97 [...] 5.0-8.5 Encounters Code Encounter Date Provider Facility CPT-99880 Level 4 Est. Patient 15:07:54 CDT Mariaa Whitman [facility] [place]-[address]17 Level 3 Est. Patient 20:45:54 RESAW OPERATOR Mariaa Whitman [facility] CPT-01975 Level 3 Est. Patient 12:16:16 CDT Ana Cristina Vallejo MD [facility] CPT-30081 Level 4 Est. Patient 12:49:21 CDT An aCristina Vallejo MD [facility] CPT-96032 Level 4 Est. Patient 23:02:25 CDT Ana Cristina Vallejo MD [facility] CPT-52653 Level 4 Est. Patient 19:26:33 RESAW OPERATOR Ana Cristina Vallejo MD [facility] CPT-88059 Level 4 Est. Patient 11:28:14 CDT Ana Cristina Vallejo MD [facility] CPT-20652 Level 4 Est. Patient 15:35:46 RESAW OPERATOR Ana Cristina Vallejo MD [facility]-39016 Level 3 Est. Patient 21:06:39 RESAW OPERATOR Alden Kim MD [facility] CPT-66362 Level 4 Est. Patient 15:30:54 RESAW OPERATOR Ana Cristina Vallejo MD [facility] Procedures Code Procedure Name Date Entry Date Standard Description CPT-92398 Urine Culture - LAB USE ONLY 16:56:33 CDT CPT-TCMM Transitional Care Mgmt-Moderate 18:08:16 CDT CPT-35593 Bone Density 09:14:12 CDT CPT-000 Give Appropriate Flu Vaccine 14:51:52 CDT CPT-70971 Fluzone High Dose (>=65 yrs.) 15:19:23 CDT CPT-09628 Immunization Single Admin 15:19:23 CDT CPT-89699 Prevnar 13 15:40:03 CDT CPT-96403 Administration single or combination vaccine inc oral 15 :40:03 CDT CPT-34497 Prevnar 13 13:55:07 CDT CPT-G0008 Administration of Influenza Virus Vaccine 10:49:51 CDT CPT-16152 Fluzone High-Dose Intramuscular Suspension 10:49:51 CDT CPT-31522 Knee 3V 13:31:37 CDT CPT-04522 Bone Density 09:07:05 RESAW OPERATOR CPT-27842 Nail Avulsion 09:46:05 CDT CPT-72867 Administration single or combination vaccine inc oral 16 :11:54 CDT CPT-42510 Influenza High Dose age 65+ 16:11:54 CDT CPT-85550 Administration single or combination vaccine inc oral 10 :53:15 CDT CPT-11620 Influenza High Dose age 65+ 10:53:15 CDT CPT-82289 Bone Density 14:50:58 RESAW OPERATOR CPT-49545 Administration single or combination vaccine inc oral 15 :41:20 RESAW OPERATOR CPT-20126 Zoster Vaccine (Zostavax) 15:41:20 RESAW OPERATOR CPT-76529 Spec Collection and Handling Fee 11:18:25 RESAW OPERATOR CPT-24192 Administration single or combination vaccine inc oral 11 :14:20 CDT CPT-59430 Influenza High Dose age 65+ 11:14:20 CDT
--- OUTSIDE RECORDS SUMMARY | 2017-07-18 08:18 | XMS REPORT | Clinical Summary ---
Author Author Admin, DANDRE Organization [facility] [employer] Address Unknown Phone Unavailable Allergies, Adverse Reactions, Alerts Allergy Name Reaction Description Start Date Severity Status Provider NKDA Critical Active Mariaa Whitman SLACKLINE OPERATOR Conditions or Problems Problem Name Problem [...] other specified administrative purpose Edema 782.3 Active Jaill Hayes MD Edema Dyspnea 786.09 Active Jalil [...] Instructions Start Date Stop Date Generic Name [facility] Status Provider Patient Instruction COLACE 100 MG CAP 1 po BID PRN Constipation DOCUSATE SODIUM 77176194699 No Longer Active Deepti Madl [employer] SALE ASSOCIATE Active ALPRAZOLAM 0.25 MG TAB 1/2-1 tablet by mouth twice a day as needed for stress ALPRAZOLAM 29997268324 No Longer Active Deepti Madl [employer] SALE ASSOCIATE Active MIRALAX ORAL PACK Takes daily prn POLYETHYLENE GLYCOL 3350 84801051760 Active Mariaa Whitman APRN Active ALENDRONATE SODIUM 70 MG TABS 1 pill by mouth weekly for osteoporosis ALENDRONATE SODIUM 40613386169 Active Brianda Reis [facility] Active E-1000 1000 UNIT ORAL CAPS Take one by mouth daily VITAMIN E 69095849569 Active Brianda Reis [facility] Active OSCAL 500/200 D-3 500-200 MG-UNIT ORAL TABS Take one by mouth 3 times daily, morning, afternoon and evening.] CALCIUM CARBONATE-VITAMIN D 99334601337 Active Brianda [facility] Active ASPIRIN 81 MG CHEW TAB 1 tablet by mouth daily ASPIRIN 69712469387 Active Brianda [facility] Active ADULT ASPIRIN EC LOW STRENGTH 81 MG TBEC TAKE 1 TAB DAILY ASPIRIN 69762649775 No Longer Active Mariaa Whitman APRN Active ALENDRONATE SODIUM 70 MG TABS TAKE 1 TAB ONCE A WEEK ALENDRONATE SODIUM 27449128649 No Longer Active Mariaa Whitman SLACKLINE OPERATOR Active FLONASE ALLERGY RELIEF 50 MCG/ACT NASAL SUSP One spray each nostril daily for allergies FLUTICASONE PROPIONATE 49871502466 Active Mariaa Whitman SLACKLINE OPERATOR Active CETIRIZINE HCL 10 MG ORAL TABS 1 po qd PRN Allergies CETIRIZINE HCL 70937002449 Active Mariaa Whitman APRN Active BACTRIM DS 800-160 MG TABS 1 pill by mouth twice daily, for UTI SULFAMETHOXAZOLE-TRIMETHOPRIM 06886753194 No Longer Active Ana Cristina Vallejo MD PhD Active HYDROCHLOROTHIAZIDE 12.5 MG CAPS 1 pill by mouth daily, for blood pressure HYDROCHLOROTHIAZIDE 27117862302 Active Mariaa Whitman APRN Active CARVEDILOL 25 MG TABS 1 pill by mouth twice daily for blood pressure CARVEDILOL 74433632771 Active Mariaa Whitman APRN Active SYNTHROID 0.088 MG TAB 1 tablet by mouth daily for thyroid LEVOTHYROXINE SODIUM 51899000992 Active HEDY Esquivel Active AMOXICILLIN 500 MG CAP 1 tab by mouth 3 times daily AMOXICILLIN 07951177774 No Longer Active Alden Kim MD Active [facility] VITAMIN D3 1000 UNIT CAPS TAKE 2 CAP DAILY CHOLECALCIFEROL Active Ana Cristina Vallejo MD PhD Active CALCIUM 500 MG TABS TAKE 3 TABS DAILY CALCIUM 64772689709 No Longer Active Mariaa Whitman APRN Active MULTIVITAMINS TABS TAKE 1 TAB DAILY MULTIPLE VITAMIN Active Aneta Tavarezum POINT OF SALE ASSOCIATE Active BENADRYL ALLERGY 25 MG TABS NEEDED DIPHENHYDRAMINE HCL 10202813633 Active Aneta Singh Leo POINT OF SALE ASSOCIATE Active TYLENOL 325 MG TABS NEEDED ACETAMINOPHEN 32263237309 Active Aneta Tavarezum POINT OF SALE ASSOCIATE Active ADVIL 200 MG TABS TAKE NEEDED IBUPROFEN 91581297874 Active Aneta Tavarezum POINT OF SALE ASSOCIATE Active GLUCOSAMINE-CHONDROITIN 500-400 MG TABS TAKE 1 TAB DAILY GLUCOSAMINE-CHONDROITIN 62914764228 Active Mariaa Whitman APRN Active NORVASC 10 MG TABS TAKE 1 TAB DAILY AMLODIPINE BESYLATE 26584817107 Active Mariaa Whitman APRN Active BENAZEPRIL HCL 40 MG TABS 1 PO BID BENAZEPRIL HCL 58567467541 Active HEDY Esquivel Active LOVASTATIN 20 MG TABS 1 PO Q HS FOR CHOLESTEROL LOVASTATIN 67971930435 Active HEDY Esquivel Active RANITIDINE HCL 150 MG CAPS 1 PO Q 12 HRS RANITIDINE HCL 37151850854 Active Mariaa Whitman SLACKLINE OPERATOR Active ALENDRONATE SODIUM 70 MG TABS TAKE 1 TAB ONCE A WEEK ALENDRONATE SODIUM 70 MG TABS 816410 ALENDRONATE SODIUM Inactive ADULT ASPIRIN EC LOW STRENGTH 81 MG TBEC TAKE 1 TAB DAILY ADULT ASPIRIN EC LOW STRENGTH 81 MG TBEC 315910 ASPIRIN Inactive ALPRAZOLAM 0.25 MG TAB 1/2-1 tablet by mouth twice a day as needed for stress ALPRAZOLAM 0.25 MG TAB 293078 ALPRAZOLAM Inactive COLACE 100 MG CAP 1 po BID PRN Constipation COLACE 100 MG CAP 5654597 DOCUSATE SODIUM Inactive AMOXICILLIN 500 MG CAP 1 tab by mouth 3 times daily AMOXICILLIN 500 MG CAP 676466 AMOXICILLIN Inactive BACTRIM DS 800-160 MG TABS 1 pill by mouth twice daily, for UTI BACTRIM DS 800-160 MG TABS 691267 SULFAMETHOXAZOLE-TRIMETHOPRIM Inactive Advance Directives Directive Description Start [...] Panel - Chemistry sodium, serum 130 mmol/L 557-428 9322/10/19 potassium, serum 3.5 mmol/L 3.5-5.2 chloride, serum 92 mmol/L 98-107 carbon dioxide, venous blood 33.6 mmol/L 21.0-32.0 blood glucose 118 mg/dL 65-110 calcium, serum 8.8 mg/dL 8.5-10.1 urea nitrogen, blood 11 mg/dL 7-18 creatinine, serum 1.12 mg/dL 0.55-1.30 Lab Report: CBC-QUEST, COMPREHENSIVE METABOLIC PANEL, LIPID PANEL, Micro ... - Chemistry cholesterol, serum 162 mg/dL 592-076 1570/05/01 HDL cholesterol, serum 68 mg/dL > OR=46 [...] % 11.0-15.0 platelet count 297 THOUSAND/UL 10*3/mm3 232-557 9989/05/01 mean platelet volume 8.9 fL 7.5-12.5 Lab [...] Negative Encounters Code Encounter Date Provider Facility CPT-14255 Level 4 Est. Patient 10:31:15 CDT Jalil Hayes MD [facility] CPT-72191 Level 4 Est. Patient 15:07:54 CDT Mariaa Whitman [facility] CPT-13791 Level 3 Est. Patient 20:45:54 LEGAL WRITING PROFESSOR Mariaa Whitman [facility] CPT-90464 Level 3 Est. Patient 12:16:16 CDT Ana Cristina Vallejo MD [facility] CPT-41878 Level 4 Est. Patient 12:49:21 CDT Ana Cristina Vallejo MD [facility] CPT-51234 Level 4 Est. Patient 23:02:25 CDT Ana Cristina Vallejo MD [facility] CPT-47866 Level 4 Est. Patient 19:26:33 LEGAL WRITING PROFESSOR Ana Cristina Vallejo MD [facility] CPT-83007 Level 4 Est. Patient 11:28:14 CDT Ana Cristina Vallejo MD [facility] CPT-18414 Level 4 Est. Patient 15:35:46 LEGAL WRITING PROFESSOR Ana Cristina Vallejo MD [facility] CPT-91560 Level 3 Est. Patient 21:06:39 LEGAL WRITING PROFESSOR Alden Kim MD [facility] CPT-55329 Level 4 Est. Patient 15:30:54 LEGAL WRITING PROFESSOR Ana Cristina Vallejo MD PhD [facility] Procedures Code Procedure Name Date Entry Date Standard Description CPT-55884 EKG Trac and Interp - XRAY USE ONLY 10:35:11 CDT 09/11 CPT-76201 Chest 2V Frontal and Lat - XRAY USE ONLY 10:35:11 CDT CPT-G0438 Initial Annual Wellness Exam 14:54:07 CDT CPT-G0009 Administration of Pneumococcal Vaccine 14:44:24 CDT CPT-42310 Pneumovax 23 Injection Injectable 25 MCG/0.5ML 14:44:24 CDT CPT-35990 First Vx - Ix admin for Medicare patients 14:44:24 CDT CPT-15594 Fluzone High-Dose Intramuscular Suspension 14:44:20 CDT CPT-41515 BMP - LAB USE ONLY 12:38:06 CDT CPT-28734 Urine Culture - LAB USE ONLY 16:56:33 CDT CPT-TCMM Transitional Care Mgmt-Moderate 18:08:16 CDT CPT-36060 Bone Density 09:14:12 CDT CPT-000 Give Appropriate Flu Vaccine 14:51:52 CDT CPT-36844 Fluzone High Dose (>=65 yrs.) 15:19:23 CDT CPT-96328 Immunization Single Admin 15:19:23 CDT CPT-90602 Prevnar 13 15:40:03 CDT CPT-22423 Administration single or combination vaccine inc oral 15 :40:03 CDT CPT-59358 Prevnar 13 13:55:07 CDT CPT-G0008 Administration of Influenza Virus Vaccine 10:49:51 CDT CPT-76304 Fluzone High-Dose Intramuscular Suspension 10:49:51 CDT CPT-55962 Knee 3V 13:31:37 CDT CPT-74683 Bone Density 09:07:05 LEGAL WRITING PROFESSOR CPT-68128 Nail Avulsion 09:46:05 CDT CPT-74120 Administration single or combination vaccine inc oral 16 :11:54 CDT CPT-82059 Influenza High Dose age 65+ 16:11:54 CDT CPT-80353 Administration single or combination vaccine inc oral 10 :53:15 CDT CPT-10006 Influenza High Dose age 65+ 10:53:15 CDT CPT-59350 Bone Density 14:50:58 LEGAL WRITING PROFESSOR CPT-93437 Administration single or combination vaccine inc oral 15 :41:20 LEGAL WRITING PROFESSOR CPT-89829 Zoster Vaccine (Zostavax) 15:41:20 LEGAL WRITING PROFESSOR CPT-31944 Spec Collection and Handling Fee 11:18:25 LEGAL WRITING PROFESSOR CPT-04477 Administration single or combination vaccine inc oral 11 :14:20 CDT CPT-30407 Influenza High Dose age 65+ 11:14:20 CDT
--- OUTSIDE RECORDS SUMMARY | 2017-07-18 08:19 | XMS REPORT | Clinical Summary ---
Author Author Admin, DANDRE Organization [facility] [employer] Address Unknown Phone Unavailable Allergies, Adverse Reactions, Alerts Allergy Name Reaction Description Start Date Severity Status Provider NKDA Critical Active Mariaa Whitman [employer] Conditions or Problems Problem Name Problem Code Onset Date Status Entry Date Provider Comment Standard Description Annotate ROUTINE GYNECOLOGICAL EXAMINATION V72.31 Resolved Ana Cristina Vallejo MD PhD Routine gynecological examination MENOPAUSE 627.2 Ruled out Ana Cristina Vallejo MD PhD Symptomatic menopausal or female climacteric states MENOPAUSE 627.2 Active Brianda Reis [facility] Symptomatic menopausal or female climacteric states [...] tab BID for 7 days CIPROFLOXACIN HCL 27861116885 Active Deepti Junior LPN Active MACROBID 100 MG ORAL CAPS 1 tab BID for 5 days NITROFURANTOIN MONOHYD MACRO 04957988701 No Longer Active Deepti Junior LPN Active HYDROCHLOROTHIAZIDE 12.5 MG CAPS 1 pill by mouth daily HYDROCHLOROTHIAZIDE 21908416929 Active Jalil Hayes MD Active RANITIDINE HCL 150 MG CAPS once nightly RANITIDINE HCL 63166747889 Active Jalil Hayes MD Active BENAZEPRIL HCL 40 MG TABS 1 daily for blood pressure BENAZEPRIL HCL 81820987727 Active Jalil Hayes MD Active HYDROCHLOROTHIAZIDE 12.5 MG CAPS 1 pill by mouth daily, for blood pressure HYDROCHLOROTHIAZIDE 27262752907 No Longer Active Jaill Hayes MD Active AUGMENTIN 875-125 MG TAB 1 po BID x 7 days AMOXICILLIN-POT CLAVULANATE 39460571624 No Longer Active Jalil Hayes MD Active OMEPRAZOLE 40 MG CPDR 1 po q a.m. OMEPRAZOLE 99198258701 Active Peggy Pardo LPN Active MIRALAX ORAL PACK Takes daily prn POLYETHYLENE GLYCOL 3350 32596476791 No Longer Active Peggy Pardo LPN Active FLONASE ALLERGY RELIEF 50 MCG/ACT NASAL SUSP One spray each nostril daily for allergies FLUTICASONE PROPIONATE 89174215552 No Longer Active Peggy Pardo LPN Active BENADRYL ALLERGY 25 MG TABS NEEDED DIPHENHYDRAMINE HCL 11692580453 No Longer Active Peggy Pardo LPN Active ADVIL 200 MG TABS TAKE NEEDED IBUPROFEN 12559133357 No Longer Active Peggy Pardo LPN Active COLACE 100 MG CAP 1 po BID PRN Constipation DOCUSATE SODIUM 51829064914 No Longer Active Deepti Junior LPN Active ALPRAZOLAM 0.25 MG TAB 1/2-1 tablet by mouth twice a day as needed for stress ALPRAZOLAM 90740818087 No Longer Active Deepti Junior LPN Active ALENDRONATE SODIUM 70 MG TABS 1 pill by mouth weekly for osteoporosis ALENDRONATE SODIUM 48288747420 Active Brianda KNOTT Active E-1000 1000 UNIT ORAL CAPS Take one by mouth daily VITAMIN E 29075292980 Active Brianda KNOTT Active OSCAL 500/200 D-3 500-200 MG-UNIT ORAL TABS Take one by mouth 3 times daily, morning, afternoon and evening.] CALCIUM CARBONATE-VITAMIN D 15479714130 Active Brianda KNOTT Active ASPIRIN 81 MG CHEW TAB 1 tablet by mouth daily ASPIRIN 78782599898 Active Brianda Reis Robin Active ADULT ASPIRIN EC LOW STRENGTH 81 MG TBEC TAKE 1 TAB DAILY ASPIRIN 04392590214 No Longer Active Mariaa Whitman APRN Active ALENDRONATE SODIUM 70 MG TABS TAKE 1 TAB ONCE A WEEK ALENDRONATE SODIUM 18850100181 No Longer Active Mariaa Whitman APRN Active CETIRIZINE HCL 10 MG ORAL TABS 1 po qd PRN Allergies CETIRIZINE HCL 30007097787 Active HEDY Esquivel Active BACTRIM DS 800-160 MG TABS 1 pill by mouth twice daily, for UTI SULFAMETHOXAZOLE-TRIMETHOPRIM 27406482471 No Longer Active Ana Cristina Vallejo MD PhD Active CARVEDILOL 25 MG TABS 1 pill by mouth twice daily for blood pressure CARVEDILOL 56151106938 Active HEDY Esquivel Active SYNTHROID 0.088 MG TAB 1 tablet by mouth daily for thyroid LEVOTHYROXINE SODIUM 22573596388 Active HEDY Esquivel Active AMOXICILLIN 500 MG CAP 1 tab by mouth 3 times daily AMOXICILLIN 10632012381 No Longer Active Alden Kim MD Active [facility] VITAMIN D3 1000 UNIT CAPS TAKE 2 CAP DAILY CHOLECALCIFEROL Active Ana Cristina Vallejo MD PhD Active CALCIUM 500 MG TABS TAKE 3 TABS DAILY CALCIUM 39095262539 No Longer Active Mariaa Whitman APRN Active MULTIVITAMINS TABS TAKE 1 TAB DAILY MULTIPLE VITAMIN Active Anetajeannie Tavarezum YULIET Active TYLENOL 325 MG TABS NEEDED ACETAMINOPHEN 60149207767 Active Anetajeannie Tavarezum BATT MACHINE OPERATOR Active GLUCOSAMINE-CHONDROITIN 500-400 MG TABS TAKE 1 TAB DAILY GLUCOSAMINE-CHONDROITIN 25451644152 Active Mariaa Whitman APRN Active NORVASC 10 MG TABS TAKE 1 TAB DAILY AMLODIPINE BESYLATE 43435302325 Active HEDY Esquivel Active LOVASTATIN 20 MG TABS 1 PO Q HS FOR CHOLESTEROL LOVASTATIN 67787448557 Active MERLINE EsquivelRobin Active ALENDRONATE SODIUM 70 MG TABS TAKE 1 TAB ONCE A WEEK ALENDRONATE SODIUM 70 MG TABS 613138 ALENDRONATE SODIUM Inactive ADULT ASPIRIN EC LOW STRENGTH 81 MG TBEC TAKE 1 TAB DAILY ADULT ASPIRIN EC LOW STRENGTH 81 MG TBEC 412370 ASPIRIN Inactive ALPRAZOLAM 0.25 MG TAB 1/2-1 tablet by mouth twice a day as needed for stress ALPRAZOLAM 0.25 MG TAB 946340 ALPRAZOLAM Inactive COLACE 100 MG CAP 1 po BID PRN Constipation COLACE 100 MG CAP 3259030 DOCUSATE SODIUM Inactive ADVIL 200 MG TABS TAKE NEEDED ADVIL 200 MG TABS 577211 IBUPROFEN Inactive BENADRYL ALLERGY 25 MG TABS NEEDED BENADRYL ALLERGY 25 MG TABS 3328211 DIPHENHYDRAMINE HCL Inactive FLONASE ALLERGY RELIEF 50 MCG/ACT NASAL SUSP One spray each nostril daily for allergies FLONASE ALLERGY RELIEF 50 MCG/ACT NASAL SUSP 3948742 FLUTICASONE PROPIONATE Inactive MIRALAX ORAL PACK Takes daily prn MIRALAX ORAL PACK 064920 POLYETHYLENE GLYCOL 3350 Inactive AUGMENTIN 875-125 MG TAB 1 po BID x 7 days AUGMENTIN 875-125 MG TAB 106503 AMOXICILLIN-POT CLAVULANATE Inactive HYDROCHLOROTHIAZIDE 12.5 MG CAPS 1 pill by mouth daily, for blood pressure HYDROCHLOROTHIAZIDE 12.5 MG CAPS 142616 HYDROCHLOROTHIAZIDE Inactive AMOXICILLIN 500 MG CAP 1 tab by mouth 3 times daily AMOXICILLIN 500 MG CAP 776204 AMOXICILLIN Inactive BACTRIM DS 800-160 MG TABS 1 pill by mouth twice daily, for UTI BACTRIM DS 800-160 MG TABS 825600 SULFAMETHOXAZOLE-TRIMETHOPRIM Inactive MACROBID 100 MG ORAL CAPS 1 tab BID for 5 days MACROBID 100 MG ORAL CAPS 1305012 NITROFURANTOIN MONOHYD MACRO Inactive Advance Directives Directive [...] Panel - Chemistry sodium, serum 130 mmol/L 394-504 8529/10/19 potassium, serum 3.5 mmol/L 3.5-5.2 chloride, serum 92 mmol/L 98-107 carbon dioxide, venous blood 33.6 mmol/L 21.0-32.0 blood glucose 118 mg/dL 65-110 calcium, serum 8.8 mg/dL 8.5-10.1 urea nitrogen, blood 11 mg/dL 7-18 creatinine, serum 1.12 mg/dL 0.55-1.30 sodium, serum 132 mmol/L 729-040 6593/08/09 potassium, serum 4.2 mmol/L 3.5-5.2 chloride, serum 99 mmol/L 98-107 carbon dioxide, venous blood 24.7 mmol/L 21.0-32.0 blood glucose 119 mg/dL 65-110 calcium, serum 8.5 mg/dL 8.5-10.1 urea nitrogen, blood 14 mg/dL 7-18 creatinine, serum 1.16 mg/dL 0.60-1.30 Lab Report: CBC-QUEST, COMPREHENSIVE METABOLIC PANEL, LIPID PANEL, Micro ... - Chemistry cholesterol, serum 162 mg/dL 416-179 8354/05/01 HDL cholesterol, serum 68 mg/dL > OR=46 [...] % 11.0-15.0 platelet count 297 THOUSAND/UL 10*3/mm3 897-077 3591/05/01 mean platelet volume 8.9 fL 7.5-12.5 Lab [...] 5.0-8.5 Encounters Code Encounter Date Provider Facility CPT-42610 Level 3 Est. Patient 13:55:49 CDT Jalil Hayes MD [facility] CPT-52567 Level 3 Est. Patient 14:38:15 CDT Jalil Hayes MD [facility] CPT-99800 Level 4 Est. Patient 14:40:54 CDT Bee Rosas [facility] CPT-63878 Level 4 Est. Patient 10:31:15 CDT Jalil Hayes MD [facility] CPT-72746 Level 4 Est. Patient 15:07:54 CDT Mariaa Whitman [facility] CPT-74650 Level 3 Est. Patient 20:45:54 PAN PULLER Mariaa Whitman [facility] CPT-92388 Level 3 Est. Patient 12:16:16 CDT Ana Cristina Vallejo MD [facility] CPT-21019 Level 4 Est. Patient 12:49:21 CDT Ana Cristina Vallejo MD [facility] CPT-04034 Level 4 Est. Patient 23:02:25 CDT Ana Cristina Vallejo MD [facility] CPT-53678 Level 4 Est. Patient 19:26:33 PAN PULLER Ana Cristina Vallejo MD [facility] CPT-34009 Level 4 Est. Patient 11:28:14 CDT Ana Cristina Vallejo MD [facility] CPT-52079 Level 4 Est. Patient 15:35:46 PAN PULLER Ana Cristina Vallejo MD [facility] CPT-39922 Level 3 Est. Patient 21:06:39 PAN PULLER Alden Kim MD [facility] CPT-23875 Level 4 Est. Patient 15:30:54 PAN PULLER Ana Cristina Vallejo MD [facility] Procedures Code Procedure Name Date Entry Date Standard Description CPT-TCMM Transitional Care Mgmt-Moderate 14:41:55 CDT CPT-90776 EKG Trac and Interp - XRAY USE ONLY 10:35:11 CDT 09/11 CPT-75189 Chest 2V Frontal and Lat - XRAY USE ONLY 10:35:11 CDT CPT-G0438 Initial Annual Wellness Exam 14:54:07 CDT CPT-G0009 Administration of Pneumococcal Vaccine 14:44:24 CDT CPT-84775 Pneumovax 23 Injection Injectable 25 MCG/0.5ML 14:44:24 CDT CPT-68987 First Vx - Ix admin for Medicare patients 14:44:24 CDT CPT-96029 Fluzone High-Dose Intramuscular Suspension 14:44:20 CDT CPT-56650 BMP - LAB USE ONLY 12:38:06 CDT CPT-74837 Urine Culture - LAB USE ONLY 16:56:33 CDT CPT-TCMM Transitional Care Mgmt-Moderate 18:08:16 CDT CPT-23346 Bone Density 09:14:12 CDT CPT-000 Give Appropriate Flu Vaccine 14:51:52 CDT CPT-48269 Fluzone High Dose (>=65 yrs.) 15:19:23 CDT CPT-27447 Immunization Single Admin 15:19:23 CDT CPT-59052 Prevnar 13 15:40:03 CDT CPT-20261 Administration single or combination vaccine inc oral 15 :40:03 CDT CPT-71457 Prevnar 13 13:55:07 CDT CPT-G0008 Administration of Influenza Virus Vaccine 10:49:51 CDT CPT-67640 Fluzone High-Dose Intramuscular Suspension 10:49:51 CDT CPT-29452 Knee 3V 13:31:37 CDT CPT-92019 Bone Density 09:07:05 PAN PULLER CPT-99464 Nail Avulsion 09:46:05 CDT CPT-94637 Administration single or combination vaccine inc oral 16 :11:54 CDT CPT-94081 Influenza High Dose age 65+ 16:11:54 CDT CPT-86592 Administration single or combination vaccine inc oral 10 :53:15 CDT CPT-13004 Influenza High Dose age 65+ 10:53:15 CDT CPT-35325 Bone Density 14:50:58 PAN PULLER CPT-01625 Administration single or combination vaccine inc oral 15 :41:20 PAN PULLER CPT-83627 Zoster Vaccine (Zostavax) 15:41:20 PAN PULLER CPT-95126 Spec Collection and Handling Fee 11:18:25 PAN PULLER CPT-74496 Administration single or combination vaccine inc oral 11 :14:20 CDT CPT-90933 Influenza High Dose age 65+ 11:14:20 CDT
--- OUTSIDE RECORDS SUMMARY | 2017-07-18 08:19 | XMS REPORT | Clinical Summary ---
Author Author Admin, DANDRE Organization [facility] Address Unknown Phone Unavailable Allergies, Adverse Reactions, Alerts Allergy Name Reaction Description Start Date Severity Status Provider NKDA Critical Active Mariaa Whitman 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 Conditions or Problems Problem Name Problem Code Onset Date Status Entry Date Provider Comment Standard Description Annotate ROUTINE GYNECOLOGICAL EXAMINATION V72.31 Resolved Ana Cristina Vallejo MD PhD Routine gynecological examination MENOPAUSE 627.2 Ruled out Ana Cristina Vallejo MD PhD Symptomatic menopausal or female climacteric states MENOPAUSE 627.2 Active Brianda Reis [facility] Symptomatic menopausal or female climacteric states [...] MD Dysuria Forgetfulness 780.99 Active 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 Jones 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 Other general symptoms Unsteady gait 781.2 Active Radha Jones APRN Abnormality of gait Personal history of fall V15.88 Active Radha Jones APRN Personal history of fall BMI 29-29.9 adult V85.25 Active Jalil Hayes MD Body Mass Index 29.0-29.9, adult Arm pain 729.5 Active Jalil Hayes MD Pain in limb Preoperative examination V72.84 Active Jalil Hayes MD Preoperative examination, unspecified ROUTINE GYNECOLOGICAL EXAMINATION ICD-V72.31 Inactive Ana Cristina Vallejo MD PhD INGROWN TOENAIL, INFECTED ICD-703.0 Inactive Ana Cristina Vallejo MD PhD HEALTH SCREENING ICD-V70.0 Inactive Ana Cristina Vallejo MD PhD INGROWN TOENAIL ICD-703.0 Inactive Ana Cristina Vallejo MD PhD Sciatica ICD-724.3 Inactive Jalil Hayes MD 2016 Urinary bladder pain ICD-788.99 Inactive Jalil Hayes MD UTI ICD-599.0 Inactive Jalil Hayes MD Dysuria ICD-788.1 Inactive Jalil Hayes MD 05/23 Dyspnea ICD-786.09 Inactive Jalil Hayes MD 2017 Medication List Medication Instructions Start Date Stop Date Generic Name NDC Status Provider Patient Instruction FUROSEMIDE 20 MG ORAL TABLET 1 daily for blood pressure and swelling FUROSEMIDE 50394667585 Active Jalil Hayes MD Active HYDROCHLOROTHIAZIDE 12.5 MG ORAL CAPSULE 1 pill by mouth daily HYDROCHLOROTHIAZIDE 23866595940 No Longer Active Jalil Hayes MD Active PREDNISONE 10 MG ORAL TABLET 2 daily for 5 days then 1 daily for 5 days 05/25 PREDNISONE 88015089183 No Longer Active Jalil Hayes MD Active VITAMIN D3 2000 UNIT ORAL TABLET 1 daily, for vitamin D deficiency CHOLECALCIFEROL 81535402593 No Longer Active Radha Jones APRN Active CIPRO 250 MG ORAL TABLET 1 tab BID for 7 days CIPROFLOXACIN HCL 17429527879 No Longer Active Radha Jones APRN Active VITAMIN D3 2000 UNIT ORAL CAPSULE 1 capsule po daily CHOLECALCIFEROL 84891936946 Active Aneta Bailey LPN Active EQL ONE DAILY WOMENS ORAL TABLET 1 po daily MULTIPLE VITAMINS- CALCIUM 80408815925 Active Aneta Tavarezum DRILL SHARPENER Active MACROBID 100 MG ORAL CAPSULE 1 tab BID for 5 days NITROFURANTOIN MONOHYD MACRO 00223753476 No Longer Active Deepti Madl DRILL SHARPENER Active RANITIDINE HCL 150 MG ORAL CAPSULE once nightly RANITIDINE HCL 14609045965 Active Aneta Tavarezum DRILL SHARPENER Active BENAZEPRIL HCL 40 MG ORAL TABLET 1 daily for blood pressure BENAZEPRIL HCL 74495058195 Active aJlil Hayes MD Active HYDROCHLOROTHIAZIDE 12.5 MG ORAL CAPSULE 1 pill by mouth daily, for blood pressure HYDROCHLOROTHIAZIDE 89318410107 No Longer Active Jalil Hayes MD Active AUGMENTIN 875-125 MG ORAL TABLET 1 po BID x 7 days AMOXICILLIN-POT CLAVULANATE 66568506806 No Longer Active Jalil Hayes MD Active OMEPRAZOLE 40 MG ORAL CAPSULE DELAYED RELEASE 1 po q a.m. OMEPRAZOLE 86411686338 Active HEDY Esquivel Active MIRALAX ORAL PACKET Takes daily prn POLYETHYLENE GLYCOL 3350 62070217970 No Longer Active Peggy Pardo LPN Active FLONASE ALLERGY RELIEF 50 MCG/ACT NASAL SUSPENSION One spray each nostril daily for allergies FLUTICASONE PROPIONATE 74324972726 No Longer Active Peggy Pardo LPN Active BENADRYL ALLERGY 25 MG ORAL TABLET NEEDED DIPHENHYDRAMINE HCL 95089511763 No Longer Active Peggy Pardo LPN Active ADVIL 200 MG ORAL TABLET TAKE NEEDED IBUPROFEN 45175033611 No Longer Active Peggy Pardo LPN Active COLACE 100 MG ORAL CAPSULE 1 po BID PRN Constipation DOCUSATE SODIUM 09986852642 No Longer Active Deepti Junior LPN Active ALPRAZOLAM 0.25 MG ORAL TABLET 1/2-1 tablet by mouth twice a day as needed for stress ALPRAZOLAM 63647129912 No Longer Active Deepti Junior LPN Active ALENDRONATE SODIUM 70 MG ORAL TABLET 1 pill by mouth weekly for osteoporosis ALENDRONATE SODIUM 95766564119 Active Aneta Bailey LPN Active E-1000 1000 UNIT ORAL CAPSULE Take one by mouth daily VITAMIN E 81040922875 Active Aneta Bailey LPN Active OSCAL 500/200 D-3 500-200 MG-UNIT ORAL TABLET Take one by mouth 3 times daily , morning, afternoon and evening.] CALCIUM CARBONATE-VITAMIN D 17180279187 Active Aneta Bailey LPN Active ASPIRIN 81 MG ORAL TABLET CHEWABLE 1 tablet by mouth daily ASPIRIN 88075412556 Active Aneta Bailey LPN Active ADULT ASPIRIN EC LOW STRENGTH 81 MG ORAL TABLET DELAYED RELEASE TAKE 1 TAB DAILY ASPIRIN 94977258872 No Longer Active Mariaa Whitman APRN Active ALENDRONATE SODIUM 70 MG ORAL TABLET TAKE 1 TAB ONCE A WEEK 01/20 ALENDRONATE SODIUM 96911531844 No Longer Active Mariaa Whitman APRN Active CETIRIZINE HCL 10 MG ORAL TABLET 1 po qd PRN Allergies CETIRIZINE HCL 16309248512 Active HEDY Esquivel Active BACTRIM DS 800-160 MG ORAL TABLET 1 pill by mouth twice daily, for UTI 01/29 SULFAMETHOXAZOLE-TRIMETHOPRIM 58914128446 No Longer Active Ana Cristina Vallejo MD PhD Active CARVEDILOL 25 MG ORAL TABLET 1 pill by mouth twice daily for blood pressure CARVEDILOL 59418479403 Active Aneta Tavarezum YULIET Active SYNTHROID 88 MCG ORAL TABLET 1 tablet by mouth daily for thyroid LEVOTHYROXINE SODIUM 32942943849 Active HEDY Esquivel Active AMOXICILLIN 500 MG ORAL CAPSULE 1 tab by mouth 3 times daily 2011 AMOXICILLIN 34395051373 No Longer Active Alden Kim MD Active CALCIUM 500 MG ORAL TABLET TAKE 3 TABS DAILY CALCIUM 83772504529 No Longer Active Mariaa Whitman APRN Active MULTIVITAMINS TABS TAKE 1 TAB DAILY MULTIPLE VITAMIN No Longer Active Aneta Tavarezum DRILL SHARPENER Active TYLENOL 325 MG ORAL TABLET NEEDED ACETAMINOPHEN 09054313510 Active Aneta Tavarezum DRILL SHARPENER Active GLUCOSAMINE-CHONDROITIN 500-400 MG ORAL TABLET TAKE 1 TAB DAILY GLUCOSAMINE-CHONDROITIN 22987065769 Active Aneta Bailey LPN Active NORVASC 10 MG ORAL TABLET TAKE 1 TAB DAILY AMLODIPINE BESYLATE 95466707465 Active Aneta Tavarezum DRILL SHARPENER Active LOVASTATIN 20 MG ORAL TABLET 1 PO Q HS FOR CHOLESTEROL LOVASTATIN 25139175928 Active HEDY Esquivel Active ALENDRONATE SODIUM 70 MG ORAL TABLET TAKE 1 TAB ONCE A WEEK 01/20 ALENDRONATE SODIUM 70 MG ORAL TABLET 264008 ALENDRONATE SODIUM Inactive ADULT ASPIRIN EC LOW STRENGTH 81 MG ORAL TABLET DELAYED RELEASE TAKE 1 TAB DAILY ADULT ASPIRIN EC LOW STRENGTH 81 MG ORAL TABLET DELAYED RELEASE 290591 ASPIRIN Inactive ALPRAZOLAM 0.25 MG ORAL TABLET 1/2-1 tablet by mouth twice a day as needed for stress ALPRAZOLAM 0.25 MG ORAL TABLET 935160 ALPRAZOLAM Inactive COLACE 100 MG ORAL CAPSULE 1 po BID PRN Constipation COLACE 100 MG ORAL CAPSULE 5151867 DOCUSATE SODIUM Inactive ADVIL 200 MG ORAL TABLET TAKE NEEDED ADVIL 200 MG ORAL TABLET 768110 IBUPROFEN Inactive BENADRYL ALLERGY 25 MG ORAL TABLET NEEDED BENADRYL ALLERGY 25 MG ORAL TABLET 0870120 DIPHENHYDRAMINE HCL Inactive FLONASE ALLERGY RELIEF 50 MCG/ACT NASAL SUSPENSION One spray each nostril daily for allergies FLONASE ALLERGY RELIEF 50 MCG/ACT NASAL SUSPENSION 3327152 FLUTICASONE PROPIONATE Inactive MIRALAX ORAL PACKET Takes daily prn MIRALAX ORAL PACKET 564658 POLYETHYLENE GLYCOL 3350 Inactive AUGMENTIN 875-125 MG ORAL TABLET 1 po BID x 7 days AUGMENTIN 875-125 MG ORAL TABLET 258468 AMOXICILLIN-POT CLAVULANATE Inactive HYDROCHLOROTHIAZIDE 12.5 MG ORAL CAPSULE 1 pill by mouth daily, for blood pressure HYDROCHLOROTHIAZIDE 12.5 MG ORAL CAPSULE HYDROCHLOROTHIAZIDE Inactive CIPRO 250 MG ORAL TABLET 1 tab BID for 7 days CIPRO 250 MG ORAL TABLET 016584 CIPROFLOXACIN HCL Inactive VITAMIN D3 2000 UNIT ORAL TABLET 1 daily, for vitamin D deficiency VITAMIN D3 2000 UNIT ORAL TABLET CHOLECALCIFEROL Inactive PREDNISONE 10 MG ORAL TABLET 2 daily for 5 days then 1 daily for 5 days 05/25 PREDNISONE 10 MG ORAL TABLET 543692 PREDNISONE Inactive HYDROCHLOROTHIAZIDE 12.5 MG ORAL CAPSULE 1 pill by mouth daily HYDROCHLOROTHIAZIDE 12.5 MG ORAL CAPSULE HYDROCHLOROTHIAZIDE Inactive AMOXICILLIN 500 MG ORAL CAPSULE 1 tab by mouth 3 times daily 2011 AMOXICILLIN 500 MG ORAL CAPSULE 275332 AMOXICILLIN Inactive BACTRIM DS 800-160 MG ORAL TABLET 1 pill by mouth twice daily, for UTI 01/29 BACTRIM DS 800-160 MG ORAL TABLET 207028 SULFAMETHOXAZOLE- TRIMETHOPRIM Inactive MACROBID 100 MG ORAL CAPSULE 1 tab BID for 5 days MACROBID 100 MG ORAL CAPSULE 4031649 NITROFURANTOIN MONOHYD MACRO Inactive Advance Directives Directive [...] Panel - Chemistry sodium, serum 132 mmol/L 057-858 6902/08/09 potassium, serum 4.2 mmol/L 3.5-5.2 chloride, serum 99 mmol/L 98-107 carbon dioxide, venous blood 24.7 mmol/L 21.0-32.0 blood glucose 119 mg/dL 65-110 calcium, serum 8.5 mg/dL 8.5-10.1 urea nitrogen, blood 14 mg/dL 7-18 creatinine, serum 1.16 mg/dL 0.60-1.30 Lab Report: CBC-QUEST, COMPREHENSIVE METABOLIC PANEL, LIPID PANEL, Micro ... - Chemistry cholesterol, serum 162 mg/dL 413-302 9517/05/01 HDL cholesterol, serum 68 mg/dL > OR=46 [...] % 11.0-15.0 platelet count 297 THOUSAND/UL 10*3/mm3 915-643 2106/05/01 mean platelet volume 8.9 fL 7.5-12.5 Lab Report: CBC-QUEST, COMPREHENSIVE METABOLIC PANEL, LIPID PANEL, Micro ... - Urinalysis microalbumin/total urine volume <0.2 mg/dL mg/L microalbumin/creatinine ratio, urine NOTE mcg/mg creat mg/L <30 Lab Report: Erythrocyte Sed Rate, Thyroid Stimulating Hormone (L), Basic ... - Chemistry TSH 1.13 m[iU]/mL 0.36-3.74 sodium, serum 139 mmol/L 125-879 1843/01/10 potassium, serum 3.8 mmol/L 3.5-5.2 chloride, serum [...] 5.0-8.5 Encounters Code Encounter Date Provider Facility CPT-15317 Level 4 Est. 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 Patient 12:35:27 DUMP TRUCK DRIVER Jalil Hayes MD [facility] CPT-98668 Level 3 Est. Patient 13:55:49 CDT Jalil Hayes MD [facility] CPT-23893 Level 3 Est. Patient 14:38:15 CDT Jalil Hayes MD [facility]-07976 Level 4 Est. Patient 14:40:54 CDT Bee Rosas [facility] CPT-05287 Level 4 Est. Patient 10:31:15 CDT Jalil Hayes MD [facility]-90245 Level 4 Est. Patient 15:07:54 CDT Mariaa Whitman [facility] CPT-35177 Level 3 Est. Patient 20:45:54 DUMP TRUCK DRIVER Mariaa Lauxuanbeckie [facility] CPT-27465 Level 3 Est. Patient 12:16:16 CDT Ana Cristina Vallejo MD PhD [facility]-40268 Level 4 Est. Patient 12:49:21 CDT Ana Cristina Vallejo MD [facility] CPT-07532 Level 4 Est. Patient 23:02:25 CDT Ana Cristina Vallejo MD [facility] CPT-66026 Level 4 Est. Patient 19:26:33 DUMP TRUCK DRIVER Ana Cristina Vallejo MD [facility] CPT-72265 Level 4 Est. Patient 11:28:14 CDT Ana Cristina Vallejo MD [facility] CPT-57625 Level 4 Est. Patient 15:35:46 DUMP TRUCK DRIVER Ana Cristina Vallejo MD [facility] CPT-63563 Level 3 Est. Patient 21:06:39 DUMP TRUCK DRIVER Alden Kim MD [facility] CPT-90162 Level 4 Est. Patient 15:30:54 DUMP TRUCK DRIVER Ana Cristina Vallejo MD PhD [facility] Procedures Code Procedure Name Date Entry Date Standard Description CPT-G0439 [facility] Annual Wellness Exam 11:53:01 DUMP TRUCK DRIVER CPT-74723 First Vx - Ix admin for Medicare patients 13:35:01 CDT CPT-40957 Fluzone High-Dose Intramuscular Suspension 13:35:01 CDT CPT-TCMM Transitional Care Mgmt-Moderate 14:41:55 CDT CPT-43296 EKG Trac and Interp - XRAY USE ONLY 10:35:11 CDT 09/11 CPT-01669 Chest 2V Frontal and Lat - XRAY USE ONLY 10:35:11 CDT CPT-G0438 Initial Annual Wellness Exam 14:54:07 CDT CPT-G0009 Administration of Pneumococcal Vaccine 14:44:24 CDT CPT-28226 Pneumovax 23 Injection Injectable 25 MCG/0.5ML 14:44:24 CDT CPT-90790 First Vx - Ix admin for Medicare patients 14:44:24 CDT CPT-90712 Fluzone High-Dose Intramuscular Suspension 14:44:20 CDT CPT-26289 BMP - LAB USE ONLY 12:38:06 CDT CPT-47104 Urine Culture - LAB USE ONLY 16:56:33 CDT CPT-TCMM Transitional Care Mgmt-Moderate 18:08:16 CDT CPT-36831 Bone Density 09:14:12 CDT CPT-000 Give Appropriate Flu Vaccine 14:51:52 CDT CPT-13601 Fluzone High Dose (>=65 yrs.) 15:19:23 CDT CPT-80788 Immunization Single Admin 15:19:23 CDT CPT-53661 Prevnar 13 15:40:03 CDT CPT-44404 Administration single or combination vaccine inc oral 15 :40:03 CDT CPT-25880 Prevnar 13 13:55:07 CDT CPT-G0008 Administration of Influenza Virus Vaccine 10:49:51 CDT CPT-98607 Fluzone High-Dose Intramuscular Suspension 10:49:51 CDT CPT-88157 Knee 3V 13:31:37 CDT CPT-27402 Bone Density 09:07:05 DUMP TRUCK DRIVER CPT-51881 Nail Avulsion 09:46:05 CDT CPT-27473 Administration single or combination vaccine inc oral 16 :11:54 CDT CPT-50759 Influenza High Dose age 65+ 16:11:54 CDT CPT-36335 Administration single or combination vaccine inc oral 10 :53:15 CDT CPT-57349 Influenza High Dose age 65+ 10:53:15 CDT CPT-54373 Bone Density 14:50:58 DUMP TRUCK DRIVER CPT-40726 Administration single or combination vaccine inc oral 15 :41:20 DUMP TRUCK DRIVER CPT-62223 Zoster Vaccine (Zostavax) 15:41:20 DUMP TRUCK DRIVER CPT-49313 Spec Collection and Handling Fee 11:18:25 DUMP TRUCK DRIVER CPT-32668 Administration single or combination vaccine inc oral 11 :14:20 CDT CPT-71413 Influenza High Dose age 65+ 11:14:20 CDT
--- OUTSIDE RECORDS SUMMARY | 2017-07-18 08:20 | XMS REPORT | Clinical Summary ---
Author Author Admin, DANDRE Organization [facility] Address Unknown Phone Unavailable Allergies, Adverse Reactions, Alerts Allergy Name Reaction Description Start Date Severity Status Provider NKDA Critical Active Mariaa Whitman HUMAN RESOURCES SERVICES SPECIALIST Conditions or Problems Problem Name Problem [...] MD Dysuria Forgetfulness 780.99 Active Radha Jones HUMAN RESOURCES SERVICES SPECIALIST Other general symptoms Unsteady gait 781.2 Active [...] 1 daily for 5 days 05/25 PREDNISONE 77376452394 Active Deepti Junior LPN Active VITAMIN D3 2000 UNIT ORAL TABLET 1 daily, for vitamin D deficiency CHOLECALCIFEROL 80740151714 No Longer Active Radha Jones APRN Active CIPRO 250 MG ORAL TABLET 1 tab BID for 7 days CIPROFLOXACIN HCL 17375687535 No Longer Active Radha Jones APRN Active VITAMIN D3 2000 UNIT ORAL CAPSULE 1 capsule po daily CHOLECALCIFEROL 44155411439 Active Aneta Tavarezum YULIET Active EQL ONE DAILY WOMENS ORAL TABLET 1 po daily MULTIPLE VITAMINS- CALCIUM 01534777923 Active Aneta Bailey LPN Active MACROBID 100 MG ORAL CAPSULE 1 tab BID for 5 days NITROFURANTOIN MONOHYD MACRO 14040843090 No Longer Active Deepti Junior LPN Active HYDROCHLOROTHIAZIDE 12.5 MG ORAL CAPSULE 1 pill by mouth daily HYDROCHLOROTHIAZIDE 41919251643 Active Jalil Hayes MD Active RANITIDINE HCL 150 MG ORAL CAPSULE once nightly RANITIDINE HCL 01590517752 Active Aneta Bailey LPN Active BENAZEPRIL HCL 40 MG ORAL TABLET 1 daily for blood pressure BENAZEPRIL HCL 16316946274 Active Jalil Hayes MD Active HYDROCHLOROTHIAZIDE 12.5 MG ORAL CAPSULE 1 pill by mouth daily, for blood pressure HYDROCHLOROTHIAZIDE 54175240178 No Longer Active Jalil Hayes MD Active AUGMENTIN 875-125 MG ORAL TABLET 1 po BID x 7 days AMOXICILLIN-POT CLAVULANATE 00044588043 No Longer Active Jalil Hayes MD Active OMEPRAZOLE 40 MG ORAL CAPSULE DELAYED RELEASE 1 po q a.m. OMEPRAZOLE 34292711364 Active HEDY Esquivel Active MIRALAX ORAL PACKET Takes daily prn POLYETHYLENE GLYCOL 3350 54293755129 No Longer Active Peggy Pardo LPN Active FLONASE ALLERGY RELIEF 50 MCG/ACT NASAL SUSPENSION One spray each nostril daily for allergies FLUTICASONE PROPIONATE 11357282408 No Longer Active Peggy Pardo LPN Active BENADRYL ALLERGY 25 MG ORAL TABLET NEEDED DIPHENHYDRAMINE HCL 63803555131 No Longer Active Peggy Pardo LPN Active ADVIL 200 MG ORAL TABLET TAKE NEEDED IBUPROFEN 52762588995 No Longer Active Peggy Pardo LPN Active COLACE 100 MG ORAL CAPSULE 1 po BID PRN Constipation DOCUSATE SODIUM 20506602611 No Longer Active Deepti Junior LPN Active ALPRAZOLAM 0.25 MG ORAL TABLET 1/2-1 tablet by mouth twice a day as needed for stress ALPRAZOLAM 66700130492 No Longer Active Deepti Junior LPN Active ALENDRONATE SODIUM 70 MG ORAL TABLET 1 pill by mouth weekly for osteoporosis ALENDRONATE SODIUM 90421917730 Active Aneta Bailey LPN Active E-1000 1000 UNIT ORAL CAPSULE Take one by mouth daily VITAMIN E 20988490154 Active Aneta Bailey LPN Active OSCAL 500/200 D-3 500-200 MG-UNIT ORAL TABLET Take one by mouth 3 times daily , morning, afternoon and evening.] CALCIUM CARBONATE-VITAMIN D 68615781542 Active Aneta Bailey LPN Active ASPIRIN 81 MG ORAL TABLET CHEWABLE 1 tablet by mouth daily ASPIRIN 30529771983 Active Aneta Bailey LPN Active ADULT ASPIRIN EC LOW STRENGTH 81 MG ORAL TABLET DELAYED RELEASE TAKE 1 TAB DAILY ASPIRIN 95835684525 No Longer Active Mariaa Whitman APRN Active ALENDRONATE SODIUM 70 MG ORAL TABLET TAKE 1 TAB ONCE A WEEK 01/20 ALENDRONATE SODIUM 45655739216 No Longer Active Mariaa Whitman APRN Active CETIRIZINE HCL 10 MG ORAL TABLET 1 po qd PRN Allergies CETIRIZINE HCL 41436265514 Active HEDY Esquivel Active BACTRIM DS 800-160 MG ORAL TABLET 1 pill by mouth twice daily, for UTI 01/29 SULFAMETHOXAZOLE-TRIMETHOPRIM 80222716667 No Longer Active Ana Cristina Vallejo MD PhD Active CARVEDILOL 25 MG ORAL TABLET 1 pill by mouth twice daily for blood pressure CARVEDILOL 22262489412 Active Aneta Tavarezum TESTER OPERATOR HELPER Active SYNTHROID 88 MCG ORAL TABLET 1 tablet by mouth daily for thyroid LEVOTHYROXINE SODIUM 72051930380 Active HEDY Esquivel Active AMOXICILLIN 500 MG ORAL CAPSULE 1 tab by mouth 3 times daily 2011 AMOXICILLIN 50015664865 No Longer Active Alden Kim MD Active CALCIUM 500 MG ORAL TABLET TAKE 3 TABS DAILY CALCIUM 02050349355 No Longer Active Mariaa Yoxuanum HUMAN RESOURCES SERVICES SPECIALIST Active MULTIVITAMINS TABS TAKE 1 TAB DAILY MULTIPLE VITAMIN No Longer Active Aneta Tavarezum TESTER OPERATOR HELPER Active TYLENOL 325 MG ORAL TABLET NEEDED ACETAMINOPHEN 41812796220 Active Aneta Tavarezum TESTER OPERATOR HELPER Active GLUCOSAMINE-CHONDROITIN 500-400 MG ORAL TABLET TAKE 1 TAB DAILY GLUCOSAMINE-CHONDROITIN 27974563419 Active Aneta Tavarezum TESTER OPERATOR HELPER Active NORVASC 10 MG ORAL TABLET TAKE 1 TAB DAILY AMLODIPINE BESYLATE 87924957982 Active Aneta Tavarezum TESTER OPERATOR HELPER Active LOVASTATIN 20 MG ORAL TABLET 1 PO Q HS FOR CHOLESTEROL LOVASTATIN 59748586319 Active HEDY Esquivel Active ALENDRONATE SODIUM 70 MG ORAL TABLET TAKE 1 TAB ONCE A WEEK 01/20 ALENDRONATE SODIUM 70 MG ORAL TABLET 185751 ALENDRONATE SODIUM Inactive ADULT ASPIRIN EC LOW STRENGTH 81 MG ORAL TABLET DELAYED RELEASE TAKE 1 TAB DAILY ADULT ASPIRIN EC LOW STRENGTH 81 MG ORAL TABLET DELAYED RELEASE 012914 ASPIRIN Inactive ALPRAZOLAM 0.25 MG ORAL TABLET 1/2-1 tablet by mouth twice a day as needed for stress ALPRAZOLAM 0.25 MG ORAL TABLET 762497 ALPRAZOLAM Inactive COLACE 100 MG ORAL CAPSULE 1 po BID PRN Constipation COLACE 100 MG ORAL CAPSULE 2518189 DOCUSATE SODIUM Inactive ADVIL 200 MG ORAL TABLET TAKE NEEDED ADVIL 200 MG ORAL TABLET 358056 IBUPROFEN Inactive BENADRYL ALLERGY 25 MG ORAL TABLET NEEDED BENADRYL ALLERGY 25 MG ORAL TABLET 5762674 DIPHENHYDRAMINE HCL Inactive FLONASE ALLERGY RELIEF 50 MCG/ACT NASAL SUSPENSION One spray each nostril daily for allergies FLONASE ALLERGY RELIEF 50 MCG/ACT NASAL SUSPENSION 6942727 FLUTICASONE PROPIONATE Inactive MIRALAX ORAL PACKET Takes daily prn MIRALAX ORAL PACKET 626174 POLYETHYLENE GLYCOL 3350 Inactive AUGMENTIN 875-125 MG ORAL TABLET 1 po BID x 7 days AUGMENTIN 875-125 MG ORAL TABLET 337373 AMOXICILLIN-POT CLAVULANATE Inactive HYDROCHLOROTHIAZIDE 12.5 MG ORAL CAPSULE 1 pill by mouth daily, for blood pressure HYDROCHLOROTHIAZIDE 12.5 MG ORAL CAPSULE 407921 HYDROCHLOROTHIAZIDE Inactive CIPRO 250 MG ORAL TABLET 1 tab BID for 7 days CIPRO 250 MG ORAL TABLET 684137 CIPROFLOXACIN HCL Inactive VITAMIN D3 2000 UNIT ORAL TABLET 1 daily, for vitamin D deficiency VITAMIN D3 2000 UNIT ORAL TABLET CHOLECALCIFEROL Inactive AMOXICILLIN 500 MG ORAL CAPSULE 1 tab by mouth 3 times daily 2011 AMOXICILLIN 500 MG ORAL CAPSULE 311020 AMOXICILLIN Inactive BACTRIM DS 800-160 MG ORAL TABLET 1 pill by mouth twice daily, for UTI 01/29 BACTRIM DS 800-160 MG ORAL TABLET 298994 SULFAMETHOXAZOLE- TRIMETHOPRIM Inactive MACROBID 100 MG ORAL CAPSULE 1 tab BID for 5 days MACROBID 100 MG ORAL CAPSULE 3582271 NITROFURANTOIN MONOHYD MACRO Inactive Advance Directives Directive [...] Panel - Chemistry sodium, serum 132 mmol/L 706-351 5050/08/09 potassium, serum 4.2 mmol/L 3.5-5.2 chloride, serum 99 mmol/L 98-107 carbon dioxide, venous blood 24.7 mmol/L 21.0-32.0 blood glucose 119 mg/dL 65-110 calcium, serum 8.5 mg/dL 8.5-10.1 urea nitrogen, blood 14 mg/dL 7-18 creatinine, serum 1.16 mg/dL 0.60-1.30 Lab Report: CBC-QUEST, COMPREHENSIVE METABOLIC PANEL, LIPID PANEL, Micro ... - Chemistry cholesterol, serum 162 mg/dL 566-089 7782/05/01 HDL cholesterol, serum 68 mg/dL > OR=46 [...] % 11.0-15.0 platelet count 297 THOUSAND/UL 10*3/mm3 464-403 5526/05/01 mean platelet volume 8.9 fL 7.5-12.5 Lab Report: CBC-QUEST, COMPREHENSIVE METABOLIC PANEL, LIPID PANEL, Micro ... - Urinalysis microalbumin/total urine volume <0.2 mg/dL mg/L microalbumin/creatinine ratio, urine NOTE mcg/mg creat mg/L <30 Lab Report: Erythrocyte Sed Rate, Thyroid Stimulating Hormone (L), Basic ... - Chemistry TSH 1.13 m[iU]/mL 0.36-3.74 sodium, serum 139 mmol/L 562-451 4964/01/10 potassium, serum 3.8 mmol/L 3.5-5.2 chloride, serum [...] 5.0-8.5 Encounters Code Encounter Date Provider Facility CPT-44067 Level 4 Est. Patient 12:35:27 PREPARER MAKING DEPARTMENT Jalil Hayes MD [facility]-06657 Level 3 Est. Patient 13:55:[place] [address] Level 3 Est. Patient 14:38:[place] [address] Level 4 Est. Patient 14:40:54 CDT Bee Rosas [facility]-35119 Level 4 Est. Patient 10:31:[place] [address] Level 4 Est. Patient 15:07:54 CDT Mariaa Whitman [facility]-84318 Level 3 Est. Patient 20:45:54 PREPARER MAKING DEPARTMENT Mariaa Whitman [facility]-61842 Level 3 Est. Patient 12:16:16 CDT Ana Cristina Vallejo MD [facility]250 Level 4 Est. Patient 12:49:21 CDT Ana Cristina Vallejo MD [facility]237 Level 4 Est. Patient 23:02:25 CDT Ana Cristina Vallejo MD [facility]32 Level 4 Est. Patient 19:26:33 PREPARER MAKING DEPARTMENT Ana Cristina Vallejo MD [facility]118 Level 4 Est. Patient 11:28:14 CDT Ana Cristina Vallejo MD PhD [facility] CPT-77674 Level 4 Est. Patient 15:35:46 PREPARER MAKING DEPARTMENT Ana Cristina Vallejo MD PhD [facility] CPT-37928 Level 3 Est. Patient 21:06:39 PREPARER MAKING DEPARTMENT Alden iKm MD [facility] CPT-26997 Level 4 Est. Patient 15:30:54 PREPARER MAKING DEPARTMENT Ana Cristina Vallejo MD PhD [facility] Procedures Code Procedure Name Date Entry Date Standard Description CPT-G0439 Subsequent Annual Wellness Exam 11:53:01 PREPARER MAKING DEPARTMENT CPT-61888 First Vx - Ix admin for Medicare patients 13:35:01 CDT CPT-03391 Fluzone High-Dose Intramuscular Suspension 13:35:01 CDT CPT-TCMM Transitional Care Mgmt-Moderate 14:41:55 CDT CPT-57602 EKG Trac and Interp - XRAY USE ONLY 10:35:11 CDT 09/11 CPT-20164 Chest 2V Frontal and Lat - XRAY USE ONLY 10:35:11 CDT CPT-G0438 Initial Annual Wellness Exam 14:54:07 CDT CPT-G0009 Administration of Pneumococcal Vaccine 14:44:24 CDT CPT-16474 Pneumovax 23 Injection Injectable 25 MCG/0.5ML 14:44:24 CDT CPT-36381 First Vx - Ix admin for Medicare patients 14:44:24 CDT CPT-47590 Fluzone High-Dose Intramuscular Suspension 14:44:20 CDT CPT-23152 BMP - LAB USE ONLY 12:38:06 CDT CPT-67342 Urine Culture - LAB USE ONLY 16:56:33 CDT CPT-TCMM Transitional Care Mgmt-Moderate 18:08:16 CDT CPT-42548 Bone Density 09:14:12 CDT CPT-000 Give Appropriate Flu Vaccine 14:51:52 CDT CPT-59126 Fluzone High Dose (>=65 yrs.) 15:19:23 CDT CPT-21277 Immunization Single Admin 15:19:23 CDT CPT-22344 Prevnar 13 15:40:03 CDT CPT-08516 Administration single or combination vaccine inc oral 15 :40:03 CDT CPT-32646 Prevnar 13 13:55:07 CDT CPT-G0008 Administration of Influenza Virus Vaccine 10:49:51 CDT CPT-71473 Fluzone High-Dose Intramuscular Suspension 10:49:51 CDT CPT-12272 Knee 3V 13:31:37 CDT CPT-92849 Bone Density 09:07:05 PREPARER MAKING DEPARTMENT CPT-71894 Nail Avulsion 09:46:05 CDT CPT-18510 Administration single or combination vaccine inc oral 16 :11:54 CDT CPT-24260 Influenza High Dose age 65+ 16:11:54 CDT CPT-71857 Administration single or combination vaccine inc oral 10 :53:15 CDT CPT-04474 Influenza High Dose age 65+ 10:53:15 CDT CPT-96780 Bone Density 14:50:58 PREPARER MAKING DEPARTMENT CPT-39721 Administration single or combination vaccine inc oral 15 :41:20 PREPARER MAKING DEPARTMENT CPT-74579 Zoster Vaccine (Zostavax) 15:41:20 PREPARER MAKING DEPARTMENT CPT-95141 Spec Collection and Handling Fee 11:18:25 PREPARER MAKING DEPARTMENT CPT-62576 Administration single or combination vaccine inc oral 11 :14:20 CDT CPT-22399 Influenza High Dose age 65+ 11:14:20 CDT
--- OUTSIDE RECORDS SUMMARY | 2017-07-18 08:21 | XMS REPORT | Clinical Summary ---
Author Author Admin, DANDRE Organization [facility] Address Unknown Phone Unavailable Allergies, Adverse Reactions, Alerts Allergy Name Reaction Description Start Date Severity Status Provider NKDA Critical Active Mariaa Whitman WELL FLOW OPERATOR Conditions or Problems Problem Name Problem Code Onset Date Status Entry Date Provider Comment Standard Description Annotate ROUTINE GYNECOLOGICAL EXAMINATION V72.31 Resolved Ana Cristina Vallejo MD PhD Routine gynecological examination MENOPAUSE 627.2 Ruled out Ana Cristina Vallejo MD PhD Symptomatic menopausal or female climacteric states MENOPAUSE 627.2 Active Brianda Reis [facility] Symptomatic menopausal or female climacteric states DIVERTICULOSIS, [...] CAPS 1 pill by mouth daily HYDROCHLOROTHIAZIDE 20222892125 Active Jalil Hayes MD Active RANITIDINE HCL 150 MG CAPS once nightly RANITIDINE HCL 84015557850 Active Jalil Hayes MD Active BENAZEPRIL HCL 40 MG TABS 1 daily for blood pressure BENAZEPRIL HCL 10386620381 Active Jalil Hayes MD Active HYDROCHLOROTHIAZIDE 12.5 MG CAPS 1 pill by mouth daily, for blood pressure HYDROCHLOROTHIAZIDE 56870422925 No Longer Active Jalil Hayes MD Active AUGMENTIN 875-125 MG TAB 1 po BID x 7 days AMOXICILLIN-POT CLAVULANATE 07653623047 No Longer Active Jalil Hayes MD Active OMEPRAZOLE 40 MG CPDR 1 po q a.m. OMEPRAZOLE 84424498254 Active Peggy Pardo LPN Active MIRALAX ORAL PACK Takes daily prn POLYETHYLENE GLYCOL 3350 69222551609 No Longer Active Peggy Pardo LPN Active FLONASE ALLERGY RELIEF 50 MCG/ACT NASAL SUSP One spray each nostril daily for allergies FLUTICASONE PROPIONATE 85909058304 No Longer Active Peggy Pardo LPN Active BENADRYL ALLERGY 25 MG TABS NEEDED DIPHENHYDRAMINE HCL 39627240637 No Longer Active Peggy Pardo LPN Active ADVIL 200 MG TABS TAKE NEEDED IBUPROFEN 53932963179 No Longer Active Peggy Pardo LPN Active COLACE 100 MG CAP 1 po BID PRN Constipation DOCUSATE SODIUM 57078196541 No Longer Active Deepti Junior LPN Active ALPRAZOLAM 0.25 MG TAB 1/2-1 tablet by mouth twice a day as needed for stress ALPRAZOLAM 19437941905 No Longer Active Deepti Junior LPN Active ALENDRONATE SODIUM 70 MG TABS 1 pill by mouth weekly for osteoporosis ALENDRONATE SODIUM 13684575845 Active Brianda Bergerford [facility] Active E-1000 1000 UNIT ORAL CAPS Take one by mouth daily VITAMIN E 45660052981 Active Brianda Reis [facility] Active OSCAL 500/200 D-3 500-200 MG-UNIT ORAL TABS Take one by mouth 3 times daily, morning, afternoon and evening.] CALCIUM CARBONATE-VITAMIN D 19545700276 Active Brianda Reis [facility] Active ASPIRIN 81 MG CHEW TAB 1 tablet by mouth daily ASPIRIN 08096533989 Active Brianda Reis [facility] Active ADULT ASPIRIN EC LOW STRENGTH 81 MG TBEC TAKE 1 TAB DAILY ASPIRIN 99775627597 No Longer Active Mariaa Whitman APRN Active ALENDRONATE SODIUM 70 MG TABS TAKE 1 TAB ONCE A WEEK ALENDRONATE SODIUM 54542227595 No Longer Active Mariaa Whitman APRN Active CETIRIZINE HCL 10 MG ORAL TABS 1 po qd PRN Allergies CETIRIZINE HCL 08821586419 Active HEDY Esquivel Active BACTRIM DS 800-160 MG TABS 1 pill by mouth twice daily, for UTI SULFAMETHOXAZOLE-TRIMETHOPRIM 92819820605 No Longer Active Ana Cristina Vallejo MD PhD Active CARVEDILOL 25 MG TABS 1 pill by mouth twice daily for blood pressure CARVEDILOL 63530009392 Active HEDY Esquivel Active SYNTHROID 0.088 MG TAB 1 tablet by mouth daily for thyroid LEVOTHYROXINE SODIUM 84307631518 Active HEDY Esquivel Active AMOXICILLIN 500 MG CAP 1 tab by mouth 3 times daily AMOXICILLIN 52849845246 No Longer Active Alden Kim MD Active [facility] VITAMIN D3 1000 UNIT CAPS TAKE 2 CAP DAILY CHOLECALCIFEROL Active Ana Cristina Vallejo MD PhD Active CALCIUM 500 MG TABS TAKE 3 TABS DAILY CALCIUM 84857893798 No Longer Active Mariaa Whitman APRN Active MULTIVITAMINS TABS TAKE 1 TAB DAILY MULTIPLE VITAMIN Active Aneta D Leo CLINICAL SERVICES SPECIALIST Active TYLENOL 325 MG TABS NEEDED ACETAMINOPHEN 05549939962 Active Aneta Singh Leo CLINICAL SERVICES SPECIALIST Active GLUCOSAMINE-CHONDROITIN 500-400 MG TABS TAKE 1 TAB DAILY GLUCOSAMINE-CHONDROITIN 24117715686 Active Mariaa Whitman APRN Active NORVASC 10 MG TABS TAKE 1 TAB DAILY AMLODIPINE BESYLATE 06254375814 Active HEDY Esquivel Active LOVASTATIN 20 MG TABS 1 PO Q HS FOR CHOLESTEROL LOVASTATIN 51431252223 Active HEDY Esquivel Active ALENDRONATE SODIUM 70 MG TABS TAKE 1 TAB ONCE A WEEK ALENDRONATE SODIUM 70 MG TABS 822472 ALENDRONATE SODIUM Inactive ADULT ASPIRIN EC LOW STRENGTH 81 MG TBEC TAKE 1 TAB DAILY ADULT ASPIRIN EC LOW STRENGTH [address] [facility] 953699 ASPIRIN Inactive ALPRAZOLAM 0.25 MG TAB 1/2-1 tablet by mouth twice a day as needed for stress ALPRAZOLAM 0.25 MG TAB 590174 ALPRAZOLAM Inactive COLACE 100 MG CAP 1 po BID PRN Constipation COLACE 100 MG CAP 1466562 DOCUSATE SODIUM Inactive ADVIL 200 MG TABS TAKE NEEDED ADVIL 200 MG TABS 353750 IBUPROFEN Inactive BENADRYL ALLERGY 25 MG TABS NEEDED BENADRYL ALLERGY 25 MG TABS 3650594 DIPHENHYDRAMINE HCL Inactive FLONASE ALLERGY RELIEF 50 MCG/ACT NASAL SUSP One spray each nostril daily for allergies FLONASE ALLERGY RELIEF 50 MCG/ACT NASAL SUSP 9334850 FLUTICASONE PROPIONATE Inactive MIRALAX ORAL PACK Takes daily prn MIRALAX ORAL PACK 146410 POLYETHYLENE GLYCOL 3350 Inactive AUGMENTIN 875-125 MG TAB 1 po BID x 7 days AUGMENTIN 875-125 MG TAB 294262 AMOXICILLIN-POT CLAVULANATE Inactive HYDROCHLOROTHIAZIDE 12.5 MG CAPS 1 pill by mouth daily, for blood pressure HYDROCHLOROTHIAZIDE 12.5 MG CAPS 240347 HYDROCHLOROTHIAZIDE Inactive AMOXICILLIN 500 MG CAP 1 tab by mouth 3 times daily AMOXICILLIN 500 MG CAP 855692 AMOXICILLIN Inactive BACTRIM DS 800-160 MG TABS 1 pill by mouth twice daily, for UTI BACTRIM DS 800-160 MG TABS 014340 SULFAMETHOXAZOLE-TRIMETHOPRIM Inactive Advance Directives Directive Description Start [...] Description blood pressure, diastolic 58 mm[Hg] BP wmoack blood pressure, systolic 144 mm[Hg] BP sys [...] Panel - Chemistry sodium, serum 130 mmol/L 854-944 3040/10/19 potassium, serum 3.5 mmol/L 3.5-5.2 chloride, serum 92 mmol/L 98-107 carbon dioxide, venous blood 33.6 mmol/L 21.0-32.0 blood glucose 118 mg/dL 65-110 calcium, serum 8.8 mg/dL 8.5-10.1 urea nitrogen, blood 11 mg/dL 7-18 creatinine, serum 1.12 mg/dL 0.55-1.30 Lab Report: CBC-QUEST, COMPREHENSIVE METABOLIC PANEL, LIPID PANEL, Micro ... - Chemistry cholesterol, serum 162 mg/dL 959-713 8920/05/01 HDL cholesterol, serum 68 mg/dL > OR=46 [...] % 11.0-15.0 platelet count 297 THOUSAND/UL 10*3/mm3 521-128 8770/05/01 mean platelet volume 8.9 fL 7.5-12.5 Lab [...] Negative Encounters Code Encounter Date Provider Facility CPT-75363 Level 3 Est. Patient 13:55:49 CDT Jalil Hayes MD [facility] CPT-10372 Level 3 Est. Patient 14:38:15 CDT Jalil Hayes MD [facility] CPT-18419 Level 4 Est. Patient 14:40:54 CDT Bee Rosas APRN [facility] CPT-00560 Level 4 Est. Patient 10:31:15 CDT Jalil Hayes MD [facility] CPT-49319 Level 4 Est. Patient 15:07:54 CDT Mariaa Whitman [facility] CPT-31064 Level 3 Est. Patient 20:45:54 FITTER/WELDER Mariaa Whitman [facility] CPT-30162 Level 3 Est. Patient 12:16:16 CDT Ana Cristina Vallejo MD [facility] CPT-12779 Level 4 Est. Patient 12:49:21 CDT Ana Cristina Vallejo MD [facility] CPT-23843 Level 4 Est. Patient 23:02:25 CDT Ana Cristina Vallejo MD [facility] CPT-02300 Level 4 Est. Patient 19:26:33 FITTER/WELDER Ana Cristina Vallejo MD [facility] CPT-07630 Level 4 Est. Patient 11:28:14 CDT Ana Cristina Vallejo MD [facility] CPT-66693 Level 4 Est. Patient 15:35:46 FITTER/WELDER Ana Cristina Vallejo MD [facility] CPT-92651 Level 3 Est. Patient 21:06:39 FITTER/WELDER Alden Kim MD [facility] CPT-34443 Level 4 Est. Patient 15:30:54 FITTER/WELDER Ana Cristina Vallejo MD [facility] Procedures Code Procedure Name Date Entry Date Standard Description CPT-TCMM Transitional Care Mgmt-Moderate 14:41:55 CDT CPT-65126 EKG Trac and Interp - XRAY USE ONLY 10:35:11 CDT 09/11 CPT-66687 Chest 2V Frontal and Lat - XRAY USE ONLY 10:35:11 CDT CPT-G0438 Initial Annual Wellness Exam 14:54:07 CDT CPT-G0009 Administration of Pneumococcal Vaccine 14:44:24 CDT CPT-23987 Pneumovax 23 Injection Injectable 25 MCG/0.5ML 14:44:24 CDT CPT-18589 First Vx - Ix admin for Medicare patients 14:44:24 CDT CPT-09711 Fluzone High-Dose Intramuscular Suspension 14:44:20 CDT CPT-49778 BMP - LAB USE ONLY 12:38:06 CDT CPT-67425 Urine Culture - LAB USE ONLY 16:56:33 CDT CPT-TCMM Transitional Care Mgmt-Moderate 18:08:16 CDT CPT-39824 Bone Density 09:14:12 CDT CPT-000 Give Appropriate Flu Vaccine 14:51:52 CDT CPT-19070 Fluzone High Dose (>=65 yrs.) 15:19:23 CDT CPT-03459 Immunization Single Admin 15:19:23 CDT CPT-10370 Prevnar 13 15:40:03 CDT CPT-35521 Administration single or combination vaccine inc oral 15 :40:03 CDT CPT-72060 Prevnar 13 13:55:07 CDT CPT-G0008 Administration of Influenza Virus Vaccine 10:49:51 CDT CPT-03941 Fluzone High-Dose Intramuscular Suspension 10:49:51 CDT CPT-24379 Knee 3V 13:31:37 CDT CPT-51820 Bone Density 09:07:05 FITTER/WELDER CPT-44505 Nail Avulsion 09:46:05 CDT CPT-59151 Administration single or combination vaccine inc oral 16 :11:54 CDT CPT-83559 Influenza High Dose age 65+ 16:11:54 CDT CPT-49019 Administration single or combination vaccine inc oral 10 :53:15 CDT CPT-75988 Influenza High Dose age 65+ 10:53:15 CDT CPT-52949 Bone Density 14:50:58 FITTER/WELDER CPT-06769 Administration single or combination vaccine inc oral 15 :41:20 FITTER/WELDER CPT-33586 Zoster Vaccine (Zostavax) 15:41:20 FITTER/WELDER CPT-82573 Spec Collection and Handling Fee 11:18:25 FITTER/WELDER CPT-64039 Administration single or combination vaccine inc oral 11 :14:20 CDT CPT-98202 Influenza High Dose age 65+ 11:14:20 CDT
[2017-07-18] MEDS ORDERED: LACTATED RINGERS 1,000 ML IV PRN ×2 (08:22)
--- OUTSIDE RECORDS SUMMARY | 2017-07-18 08:22 | XMS REPORT | Clinical Summary ---
Author Author Admin, DANDRE Organization [facility] [email or web address] Address Unknown Phone Unavailable Allergies, Adverse Reactions, Alerts Allergy Name Reaction Description Start Date Severity Status Provider NKDA Critical Active Mariaa Whitman ASSOCIATE PROFESSOR OF SOCIOLOGY Conditions or Problems Problem Name Problem Code Onset Date Status Entry Date Provider Comment Standard Description Annotate ROUTINE GYNECOLOGICAL EXAMINATION V72.31 Resolved Ana Cristina Vallejo MD PhD Routine gynecological examination MENOPAUSE 627.2 Ruled out Ana Cristina Vallejo MD PhD Symptomatic menopausal or female climacteric states MENOPAUSE 627.2 Active Brianda Reis [facility] Symptomatic menopausal or female climacteric states [...] APRN Sciatica Urinary bladder pain 788.99 Resolved Jaill Hayes MD Other symptoms involving urinary system [...] MD Dysuria Forgetfulness 780.99 Active Radha Jones ASSOCIATE PROFESSOR OF SOCIOLOGY Other general symptoms Unsteady gait 781.2 Active [...] 1 daily for 5 days 05/25 PREDNISONE 07752067627 Active Deepti Junior LPN Active VITAMIN D3 2000 UNIT ORAL TABLET 1 daily, for vitamin D deficiency CHOLECALCIFEROL 64225391364 No Longer Active Radha Jones APRN Active CIPRO 250 MG ORAL TABLET 1 tab BID for 7 days CIPROFLOXACIN HCL 79803790852 No Longer Active Radha Jones APRN Active VITAMIN D3 2000 UNIT ORAL CAPSULE 1 capsule po daily CHOLECALCIFEROL 48087033224 Active Aneta Tavarezum YULIET Active EQL ONE DAILY WOMENS ORAL TABLET 1 po daily MULTIPLE VITAMINS- CALCIUM 08902872184 Active Aneta Bailey LPN Active MACROBID 100 MG ORAL CAPSULE 1 tab BID for 5 days NITROFURANTOIN MONOHYD MACRO 07805761455 No Longer Active Deepti Junior LPN Active HYDROCHLOROTHIAZIDE 12.5 MG ORAL CAPSULE 1 pill by mouth daily HYDROCHLOROTHIAZIDE 42123425346 Active Jalil Hayes MD Active RANITIDINE HCL 150 MG ORAL CAPSULE once nightly RANITIDINE HCL 70037711784 Active Aneta Bailey LPN Active BENAZEPRIL HCL 40 MG ORAL TABLET 1 daily for blood pressure BENAZEPRIL HCL 54193349156 Active Jalil Hayes MD Active HYDROCHLOROTHIAZIDE 12.5 MG ORAL CAPSULE 1 pill by mouth daily, for blood pressure HYDROCHLOROTHIAZIDE 45687391642 No Longer Active Jalil Hayes MD Active AUGMENTIN 875-125 MG ORAL TABLET 1 po BID x 7 days AMOXICILLIN-POT CLAVULANATE 50518102275 No Longer Active Jalil Hayes MD Active OMEPRAZOLE 40 MG ORAL CAPSULE DELAYED RELEASE 1 po q a.m. OMEPRAZOLE 58482326000 Active HEDY Esquivel Active MIRALAX ORAL PACKET Takes daily prn POLYETHYLENE GLYCOL 3350 52864870312 No Longer Active Peggy Pardo LPN Active FLONASE ALLERGY RELIEF 50 MCG/ACT NASAL SUSPENSION One spray each nostril daily for allergies FLUTICASONE PROPIONATE 61425128631 No Longer Active Peggy Pardo LPN Active BENADRYL ALLERGY 25 MG ORAL TABLET NEEDED DIPHENHYDRAMINE HCL 07862232017 No Longer Active Peggy Pardo LPN Active ADVIL 200 MG ORAL TABLET TAKE NEEDED IBUPROFEN 17412549041 No Longer Active Peggy Pardo LPN Active COLACE 100 MG ORAL CAPSULE 1 po BID PRN Constipation DOCUSATE SODIUM 59201412679 No Longer Active Deepti Junior LPN Active ALPRAZOLAM 0.25 MG ORAL TABLET 1/2-1 tablet by mouth twice a day as needed for stress ALPRAZOLAM 01048711813 No Longer Active Deepti Junior LPN Active ALENDRONATE SODIUM 70 MG ORAL TABLET 1 pill by mouth weekly for osteoporosis ALENDRONATE SODIUM 18079868086 Active Aneta Bailey LPN Active E-1000 1000 UNIT ORAL CAPSULE Take one by mouth daily VITAMIN E 84323336107 Active Aneta Bailey LPN Active OSCAL 500/200 D-3 500-200 MG-UNIT ORAL TABLET Take one by mouth 3 times daily , morning, afternoon and evening.] CALCIUM CARBONATE-VITAMIN D 20306302779 Active Aneta Bailey LPN Active ASPIRIN 81 MG ORAL TABLET CHEWABLE 1 tablet by mouth daily ASPIRIN 17848400402 Active Aneta Bailey LPN Active ADULT ASPIRIN EC LOW STRENGTH 81 MG ORAL TABLET DELAYED RELEASE TAKE 1 TAB DAILY ASPIRIN 60996628773 No Longer Active Mariaa Whitman APRN Active ALENDRONATE SODIUM 70 MG ORAL TABLET TAKE 1 TAB ONCE A WEEK 01/20 ALENDRONATE SODIUM 29928474786 No Longer Active Mariaa Whitman APRN Active CETIRIZINE HCL 10 MG ORAL TABLET 1 po qd PRN Allergies CETIRIZINE HCL 09416250327 Active HEDY Esquivel Active BACTRIM DS 800-160 MG ORAL TABLET 1 pill by mouth twice daily, for UTI 01/29 SULFAMETHOXAZOLE-TRIMETHOPRIM 83956325692 No Longer Active Ana Cristina Vallejo MD PhD Active CARVEDILOL 25 MG ORAL TABLET 1 pill by mouth twice daily for blood pressure CARVEDILOL 67433679999 Active Aneta Tavarezum COLLEGE ATHLETE Active SYNTHROID 88 MCG ORAL TABLET 1 tablet by mouth daily for thyroid LEVOTHYROXINE SODIUM 46649876138 Active HEDY Esquivel Active AMOXICILLIN 500 MG ORAL CAPSULE 1 tab by mouth 3 times daily 2011 AMOXICILLIN 17894795875 No Longer Active Alden Kim MD Active CALCIUM 500 MG ORAL TABLET TAKE 3 TABS DAILY CALCIUM 17415965360 No Longer Active Mariaa Yoxuanum ASSOCIATE PROFESSOR OF SOCIOLOGY Active MULTIVITAMINS TABS TAKE 1 TAB DAILY MULTIPLE VITAMIN No Longer Active Aneta Tavarezum COLLEGE ATHLETE Active TYLENOL 325 MG ORAL TABLET NEEDED ACETAMINOPHEN 87193005339 Active Aneta Tavarezum COLLEGE ATHLETE Active GLUCOSAMINE-CHONDROITIN 500-400 MG ORAL TABLET TAKE 1 TAB DAILY GLUCOSAMINE-CHONDROITIN 88011458690 Active Aneta Tavarezum COLLEGE ATHLETE Active NORVASC 10 MG ORAL TABLET TAKE 1 TAB DAILY AMLODIPINE BESYLATE 65127944948 Active Aneta Tavarezum COLLEGE ATHLETE Active LOVASTATIN 20 MG ORAL TABLET 1 PO Q HS FOR CHOLESTEROL LOVASTATIN 23490834994 Active HEDY Esquivel Active ALENDRONATE SODIUM 70 MG ORAL TABLET TAKE 1 TAB ONCE A WEEK 01/20 ALENDRONATE SODIUM 70 MG ORAL TABLET 920820 ALENDRONATE SODIUM Inactive ADULT ASPIRIN EC LOW STRENGTH 81 MG ORAL TABLET DELAYED RELEASE TAKE 1 TAB DAILY ADULT ASPIRIN EC LOW STRENGTH 81 MG ORAL TABLET DELAYED RELEASE 795098 ASPIRIN Inactive ALPRAZOLAM 0.25 MG ORAL TABLET 1/2-1 tablet by mouth twice a day as needed for stress ALPRAZOLAM 0.25 MG ORAL TABLET 560601 ALPRAZOLAM Inactive COLACE 100 MG ORAL CAPSULE 1 po BID PRN Constipation COLACE 100 MG ORAL CAPSULE 5861655 DOCUSATE SODIUM Inactive ADVIL 200 MG ORAL TABLET TAKE NEEDED ADVIL 200 MG ORAL TABLET 764801 IBUPROFEN Inactive BENADRYL ALLERGY 25 MG ORAL TABLET NEEDED BENADRYL ALLERGY 25 MG ORAL TABLET 1629732 DIPHENHYDRAMINE HCL Inactive FLONASE ALLERGY RELIEF 50 MCG/ACT NASAL SUSPENSION One spray each nostril daily for allergies FLONASE ALLERGY RELIEF 50 MCG/ACT NASAL SUSPENSION 8000721 FLUTICASONE PROPIONATE Inactive MIRALAX ORAL PACKET Takes daily prn MIRALAX ORAL PACKET 054548 POLYETHYLENE GLYCOL 3350 Inactive AUGMENTIN 875-125 MG ORAL TABLET 1 po BID x 7 days AUGMENTIN 875-125 MG ORAL TABLET 536312 AMOXICILLIN-POT CLAVULANATE Inactive HYDROCHLOROTHIAZIDE 12.5 MG ORAL CAPSULE 1 pill by mouth daily, for blood pressure HYDROCHLOROTHIAZIDE 12.5 MG ORAL CAPSULE 211111 HYDROCHLOROTHIAZIDE Inactive CIPRO 250 MG ORAL TABLET 1 tab BID for 7 days CIPRO 250 MG ORAL TABLET 302265 CIPROFLOXACIN HCL Inactive VITAMIN D3 2000 UNIT ORAL TABLET 1 daily, for vitamin D deficiency VITAMIN D3 2000 UNIT ORAL TABLET CHOLECALCIFEROL Inactive AMOXICILLIN 500 MG ORAL CAPSULE 1 tab by mouth 3 times daily 2011 AMOXICILLIN 500 MG ORAL CAPSULE 900134 AMOXICILLIN Inactive BACTRIM DS 800-160 MG ORAL TABLET 1 pill by mouth twice daily, for UTI 01/29 BACTRIM DS 800-160 MG ORAL TABLET 046608 SULFAMETHOXAZOLE- TRIMETHOPRIM Inactive MACROBID 100 MG ORAL CAPSULE 1 tab BID for 5 days MACROBID 100 MG ORAL CAPSULE 7560191 NITROFURANTOIN MONOHYD MACRO Inactive Advance Directives Directive [...] Panel - Chemistry sodium, serum 132 mmol/L 032-722 2183/08/09 potassium, serum 4.2 mmol/L 3.5-5.2 chloride, serum 99 mmol/L 98-107 carbon dioxide, venous blood 24.7 mmol/L 21.0-32.0 blood glucose 119 mg/dL 65-110 calcium, serum 8.5 mg/dL 8.5-10.1 urea nitrogen, blood 14 mg/dL 7-18 creatinine, serum 1.16 mg/dL 0.60-1.30 Lab Report: CBC-QUEST, COMPREHENSIVE METABOLIC PANEL, LIPID PANEL, Micro ... - Chemistry cholesterol, serum 162 mg/dL 300-338 7828/05/01 HDL cholesterol, serum 68 mg/dL > OR=46 [...] % 11.0-15.0 platelet count 297 THOUSAND/UL 10*3/mm3 926-395 0135/05/01 mean platelet volume 8.9 fL 7.5-12.5 Lab Report: CBC-QUEST, COMPREHENSIVE METABOLIC PANEL, LIPID PANEL, Micro ... - Urinalysis microalbumin/total urine volume <0.2 mg/dL mg/L microalbumin/creatinine ratio, urine NOTE mcg/mg creat mg/L <30 Lab Report: Erythrocyte Sed Rate, Thyroid Stimulating Hormone (L), Basic ... - Chemistry TSH 1.13 m[iU]/mL 0.36-3.74 sodium, serum 139 mmol/L 357-412 2774/01/10 potassium, serum 3.8 mmol/L 3.5-5.2 chloride, serum [...] 5.0-8.5 Encounters Code Encounter Date Provider Facility CPT-58029 Level 4 Est. Patient 12:35:27 CLAY PREPARATION SUPERVISOR Jalil Hayes MD [facility]-27149 Level 3 Est. Patient 13:55:49 CDT Jalil Hayes MD [facility] [place]25 Level 3 Est. Patient 14:38:15 CDT Jalil Hayes MD [facility] [place]94 Level 4 Est. Patient 14:40:54 CDT Bee Rosas [facility]-76022 Level 4 Est. Patient 10:31:15 CDT Jalil Hayes MD [facility] [place]46 Level 4 Est. Patient 15:07:54 CDT Mariaa Whitman [facility]-31016 Level 3 Est. Patient 20:45:54 CLAY PREPARATION SUPERVISOR Mariaa Whitman [facility]-25217 Level 3 Est. Patient 12:16:16 CDT Ana Cristina Vallejo MD [facility]09822 Level 4 Est. Patient 12:49:21 CDT Ana Cristina Vallejo MD [facility]06534 Level 4 Est. Patient 23:02:25 CDT Ana Cristina Vallejo MD [facility]90701 Level 4 Est. Patient 19:26:33 CLAY PREPARATION SUPERVISOR Ana Cristina Vallejo MD [facility]90106 Level 4 Est. Patient 11:28:14 CDT Ana Cristina Vallejo MD PhD [facility] CPT-33810 Level 4 Est. Patient 15:35:46 CLAY PREPARATION SUPERVISOR Ana Cristina Vallejo MD PhD [facility] CPT-92027 Level 3 Est. Patient 21:06:39 CLAY PREPARATION SUPERVISOR Alden Kim MD [facility] CPT-17541 Level 4 Est. Patient 15:30:54 CLAY PREPARATION SUPERVISOR Ana Cristina Vallejo MD PhD [facility] Procedures Code Procedure Name Date Entry Date Standard Description CPT-G0439 Subsequent Annual Wellness Exam 11:53:01 CLAY PREPARATION SUPERVISOR CPT-72671 First Vx - Ix admin for Medicare patients 13:35:01 CDT CPT-95999 Fluzone High-Dose Intramuscular Suspension 13:35:01 CDT CPT-TCMM Transitional Care Mgmt-Moderate 14:41:55 CDT CPT-49887 EKG Trac and Interp - XRAY USE ONLY 10:35:11 CDT 09/11 CPT-97201 Chest 2V Frontal and Lat - XRAY USE ONLY 10:35:11 CDT CPT-G0438 Initial Annual Wellness Exam 14:54:07 CDT CPT-G0009 Administration of Pneumococcal Vaccine 14:44:24 CDT CPT-65281 Pneumovax 23 Injection Injectable 25 MCG/0.5ML 14:44:24 CDT CPT-46372 First Vx - Ix admin for Medicare patients 14:44:24 CDT CPT-19590 Fluzone High-Dose Intramuscular Suspension 14:44:20 CDT CPT-54401 BMP - LAB USE ONLY 12:38:06 CDT CPT-90312 Urine Culture - LAB USE ONLY 16:56:33 CDT CPT-TCMM Transitional Care Mgmt-Moderate 18:08:16 CDT CPT-66011 Bone Density 09:14:12 CDT CPT-000 Give Appropriate Flu Vaccine 14:51:52 CDT CPT-74245 Fluzone High Dose (>=65 yrs.) 15:19:23 CDT CPT-17245 Immunization Single Admin 15:19:23 CDT CPT-96355 Prevnar 13 15:40:03 CDT CPT-76440 Administration single or combination vaccine inc oral 15 :40:03 CDT CPT-53787 Prevnar 13 13:55:07 CDT CPT-G0008 Administration of Influenza Virus Vaccine 10:49:51 CDT CPT-02584 Fluzone High-Dose Intramuscular Suspension 10:49:51 CDT CPT-75662 Knee 3V 13:31:37 CDT CPT-93223 Bone Density 09:07:05 CLAY PREPARATION SUPERVISOR CPT-44223 Nail Avulsion 09:46:05 CDT CPT-19616 Administration single or combination vaccine inc oral 16 :11:54 CDT CPT-80059 Influenza High Dose age 65+ 16:11:54 CDT CPT-25426 Administration single or combination vaccine inc oral 10 :53:15 CDT CPT-01434 Influenza High Dose age 65+ 10:53:15 CDT CPT-56268 Bone Density 14:50:58 CLAY PREPARATION SUPERVISOR CPT-76167 Administration single or combination vaccine inc oral 15 :41:20 CLAY PREPARATION SUPERVISOR CPT-11661 Zoster Vaccine (Zostavax) 15:41:20 CLAY PREPARATION SUPERVISOR CPT-58591 Spec Collection and Handling Fee 11:18:25 CLAY PREPARATION SUPERVISOR CPT-06723 Administration single or combination vaccine inc oral 11 :14:20 CDT CPT-45919 Influenza High Dose age 65+ 11:14:20 CDT
--- OUTSIDE RECORDS SUMMARY | 2017-07-18 08:22 | XMS REPORT | Clinical Summary ---
Author Author Admin, DANDRE Organization [facility] [employer] Address Unknown Phone Unavailable Allergies, Adverse Reactions, Alerts Allergy Name Reaction Description Start Date Severity Status Provider NKDA Critical Active Mariaa Whitman HOT MILL SUPERVISOR Conditions or Problems Problem Name Problem Code Onset Date Status Entry Date Provider Comment Standard Description Annotate ROUTINE GYNECOLOGICAL EXAMINATION V72.31 Resolved Ana Cristina Vallejo MD PhD Routine gynecological examination MENOPAUSE 627.2 Ruled out Ana Cristina Vallejo MD PhD Symptomatic menopausal or female climacteric states MENOPAUSE 627.2 Active Brianda Reis [facility] Symptomatic menopausal or female climacteric states [...] Heart disease, unspecified Dysuria 788.1 Active Idalia Malka [facility] Dysuria ROUTINE GYNECOLOGICAL EXAMINATION ICD-V72.31 Inactive Ana [...] tab BID for 7 days CIPROFLOXACIN HCL 20196992988 Active Deeptitayler Junior LPN Active MACROBID 100 MG ORAL CAPS 1 tab BID for 5 days NITROFURANTOIN MONOHYD MACRO 94268236543 Active Deeptitayler Junior LPN Active HYDROCHLOROTHIAZIDE 12.5 MG CAPS 1 pill by mouth daily HYDROCHLOROTHIAZIDE 74296191857 Active Jalil Hayes MD Active RANITIDINE HCL 150 MG CAPS once nightly RANITIDINE HCL 96205148683 Active Jalil Hayes MD Active BENAZEPRIL HCL 40 MG TABS 1 daily for blood pressure BENAZEPRIL HCL 88258527196 Active Jalil Hayes MD Active HYDROCHLOROTHIAZIDE 12.5 MG CAPS 1 pill by mouth daily, for blood pressure HYDROCHLOROTHIAZIDE 00105952626 No Longer Active Jalil Hayes MD Active AUGMENTIN 875-125 MG TAB 1 po BID x 7 days AMOXICILLIN-POT CLAVULANATE 95603722202 No Longer Active Jalil Hayes MD Active OMEPRAZOLE 40 MG CPDR 1 po q a.m. OMEPRAZOLE 65053208269 Active Peggy Pardo LPN Active MIRALAX ORAL PACK Takes daily prn POLYETHYLENE GLYCOL 3350 19207062514 No Longer Active Peggy Pardo LPN Active FLONASE ALLERGY RELIEF 50 MCG/ACT NASAL SUSP One spray each nostril daily for allergies FLUTICASONE PROPIONATE 70685024342 No Longer Active Peggy Pardo LPN Active BENADRYL ALLERGY 25 MG TABS NEEDED DIPHENHYDRAMINE HCL 94204782618 No Longer Active Peggy Pardo LPN Active ADVIL 200 MG TABS TAKE NEEDED IBUPROFEN 66956216273 No Longer Active Peggy Pardo LPN Active COLACE 100 MG CAP 1 po BID PRN Constipation DOCUSATE SODIUM 79455204108 No Longer Active Deepti Junior LPN Active ALPRAZOLAM 0.25 MG TAB 1/2-1 tablet by mouth twice a day as needed for stress ALPRAZOLAM 43865327848 No Longer Active Deepti Junior LPN Active ALENDRONATE SODIUM 70 MG TABS 1 pill by mouth weekly for osteoporosis ALENDRONATE SODIUM 33928890400 Active Brianda KNOTT Active E-1000 1000 UNIT ORAL CAPS Take one by mouth daily VITAMIN E 50320765869 Active Brianda KNOTT Active OSCAL 500/200 D-3 500-200 MG-UNIT ORAL TABS Take one by mouth 3 times daily, morning, afternoon and evening.] CALCIUM CARBONATE-VITAMIN D 38717485589 Active Brianda KNOTT Active ASPIRIN 81 MG CHEW TAB 1 tablet by mouth daily ASPIRIN 04649686404 Active Brianda Reis Robin Active ADULT ASPIRIN EC LOW STRENGTH 81 MG TBEC TAKE 1 TAB DAILY ASPIRIN 11917134051 No Longer Active Mariaa Whitman APRN Active ALENDRONATE SODIUM 70 MG TABS TAKE 1 TAB ONCE A WEEK ALENDRONATE SODIUM 35138899232 No Longer Active Mariaa Whitman APRN Active CETIRIZINE HCL 10 MG ORAL TABS 1 po qd PRN Allergies CETIRIZINE HCL 10288371178 Active HEDY Esquivel Active BACTRIM DS 800-160 MG TABS 1 pill by mouth twice daily, for UTI SULFAMETHOXAZOLE-TRIMETHOPRIM 72270221500 No Longer Active Ana Cristina Vallejo MD PhD Active CARVEDILOL 25 MG TABS 1 pill by mouth twice daily for blood pressure CARVEDILOL 96973435065 Active HEDY Esquivel Active SYNTHROID 0.088 MG TAB 1 tablet by mouth daily for thyroid LEVOTHYROXINE SODIUM 60473922627 Active HEDY Esquivel Active AMOXICILLIN 500 MG CAP 1 tab by mouth 3 times daily AMOXICILLIN 25204541560 No Longer Active Alden Kim MD Active [facility] VITAMIN D3 1000 UNIT CAPS TAKE 2 CAP DAILY CHOLECALCIFEROL Active Ana Cristina Vallejo MD PhD Active CALCIUM 500 MG TABS TAKE 3 TABS DAILY CALCIUM 88564223904 No Longer Active Mariaa Whitman APRN Active MULTIVITAMINS TABS TAKE 1 TAB DAILY MULTIPLE VITAMIN Active Aneta Tavarezum YULIET Active TYLENOL 325 MG TABS NEEDED ACETAMINOPHEN 03364929354 Active Aneta Tavarezum TRUCK 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 SERVICE ESTIMATOR Active GLUCOSAMINE-CHONDROITIN 500-400 MG TABS TAKE 1 TAB DAILY GLUCOSAMINE-CHONDROITIN 34211854306 Active Mariaa Whitman APRN Active NORVASC 10 MG TABS TAKE 1 TAB DAILY AMLODIPINE BESYLATE 87525813301 Active HEDY Esquivel Active LOVASTATIN 20 MG TABS 1 PO Q HS FOR CHOLESTEROL LOVASTATIN 56142378593 Active Risa CalderonHEDY Active ALENDRONATE SODIUM 70 MG TABS TAKE 1 TAB ONCE A WEEK ALENDRONATE SODIUM 70 MG TABS 152201 ALENDRONATE SODIUM Inactive ADULT ASPIRIN EC LOW STRENGTH 81 MG TBEC TAKE 1 TAB DAILY ADULT ASPIRIN EC LOW STRENGTH 81 MG TBEC 772076 ASPIRIN Inactive ALPRAZOLAM 0.25 MG TAB 1/2-1 tablet by mouth twice a day as needed for stress ALPRAZOLAM 0.25 MG TAB 971033 ALPRAZOLAM Inactive COLACE 100 MG CAP 1 po BID PRN Constipation COLACE 100 MG CAP 8087437 DOCUSATE SODIUM Inactive ADVIL 200 MG TABS TAKE NEEDED ADVIL 200 MG TABS 879994 IBUPROFEN Inactive BENADRYL ALLERGY 25 MG TABS NEEDED BENADRYL ALLERGY 25 MG TABS 4947654 DIPHENHYDRAMINE HCL Inactive FLONASE ALLERGY RELIEF 50 MCG/ACT NASAL SUSP One spray each nostril daily for allergies FLONASE ALLERGY RELIEF 50 MCG/ACT NASAL SUSP 0415143 FLUTICASONE PROPIONATE Inactive MIRALAX ORAL PACK Takes daily prn MIRALAX ORAL PACK 830000 POLYETHYLENE GLYCOL 3350 Inactive AUGMENTIN 875-125 MG TAB 1 po BID x 7 days AUGMENTIN 875-125 MG TAB 964542 AMOXICILLIN-POT CLAVULANATE Inactive HYDROCHLOROTHIAZIDE 12.5 MG CAPS 1 pill by mouth daily, for blood pressure HYDROCHLOROTHIAZIDE 12.5 MG CAPS 476678 HYDROCHLOROTHIAZIDE Inactive AMOXICILLIN 500 MG CAP 1 tab by mouth 3 times daily AMOXICILLIN 500 MG CAP 586828 AMOXICILLIN Inactive BACTRIM DS 800-160 MG TABS 1 pill by mouth twice daily, for UTI BACTRIM DS 800-160 MG TABS 077404 SULFAMETHOXAZOLE-TRIMETHOPRIM Inactive Advance Directives Directive Description Start [...] Panel - Chemistry sodium, serum 130 mmol/L 623-552 1940/10/19 potassium, serum 3.5 mmol/L 3.5-5.2 chloride, serum 92 mmol/L 98-107 carbon dioxide, venous blood 33.6 mmol/L 21.0-32.0 blood glucose 118 mg/dL 65-110 calcium, serum 8.8 mg/dL 8.5-10.1 urea nitrogen, blood 11 mg/dL 7-18 creatinine, serum 1.12 mg/dL 0.55-1.30 Lab Report: CBC-QUEST, COMPREHENSIVE METABOLIC PANEL, LIPID PANEL, Micro ... - Chemistry cholesterol, serum 162 mg/dL 966-976 9491/05/01 HDL cholesterol, serum 68 mg/dL > OR=46 [...] % 11.0-15.0 platelet count 297 THOUSAND/UL 10*3/mm3 789-164 0755/05/01 mean platelet volume 8.9 fL 7.5-12.5 Lab [...] 5.0-8.5 Encounters Code Encounter Date Provider Facility CPT-71027 Level 3 Est. Patient 13:55:49 CDT Jalli Hayes MD [facility]00095 Level 3 Est. Patient 14:38:15 CDT Jalil Hayes MD [facility]80327 Level 4 Est. Patient 14:40:54 CDT Bee Rosas [facility]48871 Level 4 Est. Patient 10:31:15 CDT Jalil Hayes MD [facility]28618 Level 4 Est. Patient 15:07:54 CDT Maraia Whitman [facility]04424 Level 3 Est. 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 Patient 12:16:16 CDT Ana Cristina Vallejo MD [facility]22533 Level 4 Est. Patient 12:49:21 CDT Ana Cristina Vallejo MD [facility]15327 Level 4 Est. Patient 23:02:25 CDT Ana Cristina Vallejo MD [facility]94222 Level 4 Est. Patient 19:26:33 [employer]ORCYCLE POLICE OFFICER Ana Cristina Vallejo MD [facility]01338 Level 4 Est. Patient 11:28:14 CDT Ana Cristina Vallejo MD PhD [facility] CPT-81699 Level 4 Est. Patient 15:35:46 [employer]ORCYCLE POLICE OFFICER Ana Cristina Vallejo MD PhD [facility] CPT-84568 Level 3 Est. Patient 21:06:39 [employer]CYCLE [employer]ICE OFFICER Alden Kim MD [facility] CPT-45386 Level 4 Est. Patient 15:30:54 [employer]CY[employer] OFFICER Ana Cristina Vallejo MD PhD [facility] Procedures Code Procedure Name Date Entry Date Standard Description CPT-TCMM Transitional Care Mgmt-Moderate 14:41:55 CDT CPT-40979 EKG Trac and Interp - XRAY USE ONLY 10:35:11 CDT 09/11 CPT-88353 Chest 2V Frontal and Lat - XRAY USE ONLY 10:35:11 CDT CPT-G0438 Initial Annual Wellness Exam 14:54:07 CDT CPT-G0009 Administration of Pneumococcal Vaccine 14:44:24 CDT CPT-11609 Pneumovax 23 Injection Injectable 25 MCG/0.5ML 14:44:24 CDT CPT-99404 First Vx - Ix admin for Medicare patients 14:44:24 CDT CPT-06248 Fluzone High-Dose Intramuscular Suspension 14:44:20 CDT CPT-50082 BMP - LAB USE ONLY 12:38:06 CDT CPT-60976 Urine Culture - LAB USE ONLY 16:56:33 CDT CPT-TCMM Transitional Care Mgmt-Moderate 18:08:16 CDT CPT-77831 Bone Density 09:14:12 CDT CPT-000 Give Appropriate Flu Vaccine 14:51:52 CDT CPT-78000 Fluzone High Dose (>=65 yrs.) 15:19:23 CDT CPT-07187 Immunization Single Admin 15:19:23 CDT CPT-28565 Prevnar 13 15:40:03 CDT CPT-37320 Administration single or combination vaccine inc oral 15 :40:03 CDT CPT-62974 Prevnar 13:55:07 CDT CPT-G0008 Administration of Influenza Virus Vaccine 10:49:51 CDT CPT-65504 Fluzone High-Dose Intramuscular Suspension 10:49:51 CDT CPT-20950 Knee 3V 13:31:37 CDT CPT-02037 Bone Density 09:07:05 [employer]CYCLE [employer] OFFICER CPT-42616 Nail Avulsion 09:46:05 CDT CPT-20788 Administration single or combination vaccine inc oral 16 :11:54 CDT CPT-73528 Influenza High Dose age 65+ 16:11:54 CDT CPT-58560 Administration single or combination vaccine inc oral 10 :53:15 CDT CPT-38030 Influenza High Dose age 65+ 10:53:15 CDT CPT-07946 Bone Density 14:50:58 [employer] OFFICER CPT-09766 Administration single or combination vaccine inc oral 15 :41:20 [employer] OFFICER CPT-06895 Zoster Vaccine (Zostavax) 15:41:20 [employer]ORCYCLE POLICE OFFICER CPT-02654 Spec Collection and Handling Fee 11:18:25 [employer]ORCYCLE [employer]ICE OFFICER CPT-24011 Administration single or combination vaccine inc oral 11 :14:20 CDT CPT-11716 Influenza High Dose age 65+ 11:14:20 CDT
--- OUTSIDE RECORDS SUMMARY | 2017-07-18 08:23 | XMS REPORT | Clinical Summary ---
Author Author Admin, DANDRE Organization [facility] [employer] Address Unknown Phone Unavailable Allergies, Adverse Reactions, Alerts Allergy Name Reaction Description Start Date Severity Status Provider NKDA Critical Active Mariaa Whitman CAPTAIN OF GUARDS Conditions or Problems Problem Name Problem Code Onset Date Status Entry Date Provider Comment Standard Description Annotate ROUTINE GYNECOLOGICAL EXAMINATION V72.31 Resolved Ana Cristina Vallejo MD PhD Routine gynecological examination MENOPAUSE 627.2 Ruled out Ana Cristina Vallejo MD PhD Symptomatic menopausal or female climacteric states MENOPAUSE 627.2 Active Brianda Reis [facility] Symptomatic menopausal or female climacteric [...] BID for 5 days NITROFURANTOIN MONOHYD MACRO 54172717447 Active Deepti Junior LPN Active HYDROCHLOROTHIAZIDE 12.5 MG CAPS 1 pill by mouth daily HYDROCHLOROTHIAZIDE 65310110867 Active Jalil Hayes MD Active RANITIDINE HCL 150 MG CAPS once nightly RANITIDINE HCL 55767551239 Active Jalil Hayes MD Active BENAZEPRIL HCL 40 MG TABS 1 daily for blood pressure BENAZEPRIL HCL 93612166594 Active Jalil Hayes MD Active HYDROCHLOROTHIAZIDE 12.5 MG CAPS 1 pill by mouth daily, for blood pressure HYDROCHLOROTHIAZIDE 52128392488 No Longer Active Jalil Hayes MD Active AUGMENTIN 875-125 MG TAB 1 po BID x 7 days AMOXICILLIN-POT CLAVULANATE 13175345977 No Longer Active Jalil Hayes MD Active OMEPRAZOLE 40 MG CPDR 1 po q a.m. OMEPRAZOLE 31878464419 Active Peggy Pardo LPN Active MIRALAX ORAL PACK Takes daily prn POLYETHYLENE GLYCOL 3350 60694772652 No Longer Active Peggy Pardo LPN Active FLONASE ALLERGY RELIEF 50 MCG/ACT NASAL SUSP One spray each nostril daily for allergies FLUTICASONE PROPIONATE 63404793629 No Longer Active Peggy Pardo LPN Active BENADRYL ALLERGY 25 MG TABS NEEDED DIPHENHYDRAMINE HCL 30702431400 No Longer Active Peggy Pardo LPN Active ADVIL 200 MG TABS TAKE NEEDED IBUPROFEN 93874575364 No Longer Active Peggy Pardo LPN Active COLACE 100 MG CAP 1 po BID PRN Constipation DOCUSATE SODIUM 44393022087 No Longer Active Deepti Junior LPN Active ALPRAZOLAM 0.25 MG TAB 1/2-1 tablet by mouth twice a day as needed for stress ALPRAZOLAM 41244173193 No Longer Active Deepti Junior LPN Active ALENDRONATE SODIUM 70 MG TABS 1 pill by mouth weekly for osteoporosis ALENDRONATE SODIUM 58412943572 Active Brianda Bergerford [facility] Active E-1000 1000 UNIT ORAL CAPS Take one by mouth daily VITAMIN E 01657376446 Active Brianda Bergerford [facility] Active OSCAL 500/200 D-3 500-200 MG-UNIT ORAL TABS Take one by mouth 3 times daily, morning, afternoon and evening.] CALCIUM CARBONATE-VITAMIN D 16557060156 Active Brianda Chato [facility] Active ASPIRIN 81 MG CHEW TAB 1 tablet by mouth daily ASPIRIN 98962773512 Active Brianda Bergerford [facility] Active ADULT ASPIRIN EC LOW STRENGTH 81 MG TBEC TAKE 1 TAB DAILY ASPIRIN 28390901283 No Longer Active Mariaa Whitman APRN Active ALENDRONATE SODIUM 70 MG TABS TAKE 1 TAB ONCE A WEEK ALENDRONATE SODIUM 43399062701 No Longer Active Mariaa Whitman APRN Active CETIRIZINE HCL 10 MG ORAL TABS 1 po qd PRN Allergies CETIRIZINE HCL 64166521714 Active HEDY Esquivel Active BACTRIM DS 800-160 MG TABS 1 pill by mouth twice daily, for UTI SULFAMETHOXAZOLE-TRIMETHOPRIM 23733529522 No Longer Active Ana Cristina Vallejo MD PhD Active CARVEDILOL 25 MG TABS 1 pill by mouth twice daily for blood pressure CARVEDILOL 28044091205 Active HEDY Esquivel Active SYNTHROID 0.088 MG TAB 1 tablet by mouth daily for thyroid LEVOTHYROXINE SODIUM 64056682961 Active HEDY Esquivel Active AMOXICILLIN 500 MG CAP 1 tab by mouth 3 times daily AMOXICILLIN 31022815528 No Longer Active Alden Kim MD Active [facility] VITAMIN D3 1000 UNIT CAPS TAKE 2 CAP DAILY CHOLECALCIFEROL Active Ana Cristina Vallejo MD PhD Active CALCIUM 500 MG TABS TAKE 3 TABS DAILY CALCIUM 88033310489 No Longer Active Mariaa Whitman APRN Active MULTIVITAMINS TABS TAKE 1 TAB DAILY MULTIPLE VITAMIN Active Aneta Tavarezum DIRECTOR OF OUTREACH Active TYLENOL 325 MG TABS NEEDED ACETAMINOPHEN 77249418662 Active Aneta Singh Leo DIRECTOR OF OUTREACH Active GLUCOSAMINE-CHONDROITIN 500-400 MG TABS TAKE 1 TAB DAILY GLUCOSAMINE-CHONDROITIN 36862093245 Active Mariaa Whitman APRN Active NORVASC 10 MG TABS TAKE 1 TAB DAILY AMLODIPINE BESYLATE 26366392364 Active HEDY Esquivel Active LOVASTATIN 20 MG TABS 1 PO Q HS FOR CHOLESTEROL LOVASTATIN 95791499415 Active HEDY Esquivel Active ALENDRONATE SODIUM 70 MG TABS TAKE 1 TAB ONCE A WEEK ALENDRONATE SODIUM 70 MG TABS 451687 ALENDRONATE SODIUM Inactive ADULT ASPIRIN EC LOW STRENGTH 81 MG TBEC TAKE 1 TAB DAILY ADULT ASPIRIN EC LOW STRENGTH 81 MG TBEC 686738 ASPIRIN Inactive ALPRAZOLAM 0.25 MG TAB 1/2-1 tablet by mouth twice a day as needed for stress ALPRAZOLAM 0.25 MG TAB 893453 ALPRAZOLAM Inactive COLACE 100 MG CAP 1 po BID PRN Constipation COLACE 100 MG CAP 2963262 DOCUSATE SODIUM Inactive ADVIL 200 MG TABS TAKE NEEDED ADVIL 200 MG TABS 702571 IBUPROFEN Inactive BENADRYL ALLERGY 25 MG TABS NEEDED BENADRYL ALLERGY 25 MG TABS 6986159 DIPHENHYDRAMINE HCL Inactive FLONASE ALLERGY RELIEF 50 MCG/ACT NASAL SUSP One spray each nostril daily for allergies FLONASE ALLERGY RELIEF 50 MCG/ACT NASAL SUSP 6860187 FLUTICASONE PROPIONATE Inactive MIRALAX ORAL PACK Takes daily prn MIRALAX ORAL PACK 668303 POLYETHYLENE GLYCOL 3350 Inactive AUGMENTIN 875-125 MG TAB 1 po BID x 7 days AUGMENTIN 875-125 MG TAB 185520 AMOXICILLIN-POT CLAVULANATE Inactive HYDROCHLOROTHIAZIDE 12.5 MG CAPS 1 pill by mouth daily, for blood pressure HYDROCHLOROTHIAZIDE 12.5 MG CAPS 613753 HYDROCHLOROTHIAZIDE Inactive AMOXICILLIN 500 MG CAP 1 tab by mouth 3 times daily AMOXICILLIN 500 MG CAP 845866 AMOXICILLIN Inactive BACTRIM DS 800-160 MG TABS 1 pill by mouth twice daily, for UTI BACTRIM DS 800-160 MG TABS 713002 SULFAMETHOXAZOLE-TRIMETHOPRIM Inactive Advance Directives Directive Description Start [...] Panel - Chemistry sodium, serum 130 mmol/L 134-779 0589/10/19 potassium, serum 3.5 mmol/L 3.5-5.2 chloride, serum 92 mmol/L 98-107 carbon dioxide, venous blood 33.6 mmol/L 21.0-32.0 blood glucose 118 mg/dL 65-110 calcium, serum 8.8 mg/dL 8.5-10.1 urea nitrogen, blood 11 mg/dL 7-18 creatinine, serum 1.12 mg/dL 0.55-1.30 Lab Report: CBC-QUEST, COMPREHENSIVE METABOLIC PANEL, LIPID PANEL, Micro ... - Chemistry cholesterol, serum 162 mg/dL 699-568 4046/05/01 HDL cholesterol, serum 68 mg/dL > OR=46 [...] % 11.0-15.0 platelet count 297 THOUSAND/UL 10*3/mm3 949-234 3137/05/01 mean platelet volume 8.9 fL 7.5-12.5 Lab [...] Encounter Date Provider Facility [facility]-[id number] Level 3 Est. Patient 13:55:49 CDT Jalil Hayes MD [facility]-68707 Level 3 Est. Patient 14:38:15 CDT Jalil Hayes MD [facility]19771 Level 4 Est. Patient 14:40:54 CDT Bee Rosas [facility]89624 Level 4 Est. Patient 10:31:15 CDT Jalil Hayes MD [facility]30089 Level 4 Est. Patient 15:07:54 CDT Mariaa Whitman [facility]88905 Level 3 Est. Patient 20:45:54 MANAGER ETL Mariaa Whitman [facility]36984 Level 3 Est. Patient 12:16:16 CDT Ana Cristina Vallejo MD [facility]110 Level 4 Est. Patient 12:49:21 CDT Ana Cristina Vallejo MD [facility]05639 Level 4 Est. Patient 23:02:25 CDT Ana Cristina Vallejo MD [facility]21360 Level 4 Est. Patient 19:26:33 MANAGER ETL Ana Cristina Vallejo MD [facility]73760 Level 4 Est. Patient 11:28:14 CDT Ana Cristina Vallejo MD [facility]70697 Level 4 Est. Patient 15:35:46 MANAGER ETL Ana Cristina Vallejo MD PhD [facility] CPT-86131 Level 3 Est. Patient 21:06:39 MANAGER ETL Alden Kim MD [facility] CPT-58667 Level 4 Est. Patient 15:30:54 MANAGER ETL Ana Cristina Vallejo MD PhD [facility] Procedures Code Procedure Name Date Entry Date Standard Description CPT-TCMM Transitional Care Mgmt-Moderate 14:41:55 CDT CPT-22277 EKG Trac and Interp - XRAY USE ONLY 10:35:11 CDT 09/11 CPT-20125 Chest 2V Frontal and Lat - XRAY USE ONLY 10:35:11 CDT CPT-G0438 Initial Annual Wellness Exam 14:54:07 CDT CPT-G0009 Administration of Pneumococcal Vaccine 14:44:24 CDT CPT-28129 Pneumovax 23 Injection Injectable 25 MCG/0.5ML 14:44:24 CDT CPT-33894 First Vx - Ix admin for Medicare patients 14:44:24 CDT CPT-22554 Fluzone High-Dose Intramuscular Suspension 14:44:20 CDT CPT-63666 BMP - LAB USE ONLY 12:38:06 CDT CPT-20356 Urine Culture - LAB USE ONLY 16:56:33 CDT CPT-TCMM Transitional Care Mgmt-Moderate 18:08:16 CDT CPT-68662 Bone Density 09:14:12 CDT CPT-000 Give Appropriate Flu Vaccine 14:51:52 CDT CPT-00496 Fluzone High Dose (>=65 yrs.) 15:19:23 CDT CPT-33119 Immunization Single Admin 15:19:23 CDT CPT-67856 Prevnar 13 15:40:03 CDT CPT-39073 Administration single or combination vaccine inc oral 15 :40:03 CDT CPT-08557 Prevnar 13 13:55:07 CDT CPT-G0008 Administration of Influenza Virus Vaccine 10:49:51 CDT CPT-09979 Fluzone High-Dose Intramuscular Suspension 10:49:51 CDT CPT-64288 Knee 3V 13:31:37 CDT CPT-88247 Bone Density 09:07:05 MANAGER ETL CPT-33776 Nail Avulsion 09:46:05 CDT CPT-80350 Administration single or combination vaccine inc oral 16 :11:54 CDT CPT-14524 Influenza High Dose age 65+ 16:11:54 CDT CPT-87988 Administration single or combination vaccine inc oral 10 :53:15 CDT CPT-56281 Influenza High Dose age 65+ 10:53:15 CDT CPT-92784 Bone Density 14:50:58 MANAGER ETL CPT-21312 Administration single or combination vaccine inc oral 15 :41:20 MANAGER ETL CPT-25164 Zoster Vaccine (Zostavax) 15:41:20 MANAGER ETL CPT-98633 Spec Collection and Handling Fee 11:18:25 MANAGER ETL CPT-42401 Administration single or combination vaccine inc oral 11 :14:20 CDT CPT-01155 Influenza High Dose age 65+ 11:14:20 CDT
--- OUTSIDE RECORDS SUMMARY | 2017-07-18 08:24 | XMS REPORT | Clinical Summary ---
Author Author Admin, DANDRE Organization [facility] [employer] Address Unknown Phone Unavailable Allergies, Adverse Reactions, Alerts Allergy Name Reaction Description Start Date Severity Status Provider NKDA Critical Active Mariaa Whitman MOLD LAMINATOR Conditions or Problems Problem Name Problem Code Onset Date Status Entry Date Provider Comment Standard Description Annotate ROUTINE GYNECOLOGICAL EXAMINATION V72.31 Resolved Ana Cristina Vallejo MD PhD Routine gynecological examination MENOPAUSE 627.2 Ruled out Ana Cristina Vallejo MD PhD Symptomatic menopausal or female climacteric states MENOPAUSE 627.2 Active Brianda Reis [facility] Symptomatic menopausal or female climacteric states [...] CAPS 1 pill by mouth daily HYDROCHLOROTHIAZIDE 67219888588 Active Jalil Hayes MD Active RANITIDINE HCL 150 MG CAPS once nightly RANITIDINE HCL 77116476208 Active Jalil Hayes MD Active BENAZEPRIL HCL 40 MG TABS 1 daily for blood pressure BENAZEPRIL HCL 51567701015 Active Jalil Hayes MD Active HYDROCHLOROTHIAZIDE 12.5 MG CAPS 1 pill by mouth daily, for blood pressure HYDROCHLOROTHIAZIDE 18764228642 No Longer Active Jalil Hayes MD Active AUGMENTIN 875-125 MG TAB 1 po BID x 7 days AMOXICILLIN-POT CLAVULANATE 52518043165 No Longer Active Jalil Hayes MD Active OMEPRAZOLE 40 MG CPDR 1 po q a.m. OMEPRAZOLE 83188383949 Active Peggy Pardo LPN Active MIRALAX ORAL PACK Takes daily prn POLYETHYLENE GLYCOL 3350 67516710632 No Longer Active Peggy Pardo LPN Active FLONASE ALLERGY RELIEF 50 MCG/ACT NASAL SUSP One spray each nostril daily for allergies FLUTICASONE PROPIONATE 35873855550 No Longer Active Peggy Pardo LPN Active BENADRYL ALLERGY 25 MG TABS NEEDED DIPHENHYDRAMINE HCL 43571520516 No Longer Active Peggy Pardo LPN Active ADVIL 200 MG TABS TAKE NEEDED IBUPROFEN 04897401262 No Longer Active Peggy Pardo LPN Active COLACE 100 MG CAP 1 po BID PRN Constipation DOCUSATE SODIUM 09370909108 No Longer Active Deepti Junior LPN Active ALPRAZOLAM 0.25 MG TAB 1/2-1 tablet by mouth twice a day as needed for stress ALPRAZOLAM 75014070828 No Longer Active Deepti Junior LPN Active ALENDRONATE SODIUM 70 MG TABS 1 pill by mouth weekly for osteoporosis ALENDRONATE SODIUM 92428425141 Active Brianda Reis [facility] Active E-1000 1000 UNIT ORAL CAPS Take one by mouth daily VITAMIN E 42692149576 Active Brianda Bergerford [facility] Active OSCAL 500/200 D-3 500-200 MG-UNIT ORAL TABS Take one by mouth 3 times daily, morning, afternoon and evening.] CALCIUM CARBONATE-VITAMIN D 13388830496 Active Brianda Bergerford [facility] Active ASPIRIN 81 MG CHEW TAB 1 tablet by mouth daily ASPIRIN 53949316667 Active Brianda Bergerford [facility] Active ADULT ASPIRIN EC LOW STRENGTH 81 MG TBEC TAKE 1 TAB DAILY ASPIRIN 88063431444 No Longer Active Mariaa Whitman APRN Active ALENDRONATE SODIUM 70 MG TABS TAKE 1 TAB ONCE A WEEK ALENDRONATE SODIUM 27056920550 No Longer Active Mairaa Whitman APRN Active CETIRIZINE HCL 10 MG ORAL TABS 1 po qd PRN Allergies CETIRIZINE HCL 34685148316 Active HEDY Esquivel Active BACTRIM DS 800-160 MG TABS 1 pill by mouth twice daily, for UTI SULFAMETHOXAZOLE-TRIMETHOPRIM 38858831398 No Longer Active Ana Cristina Vallejo MD PhD Active CARVEDILOL 25 MG TABS 1 pill by mouth twice daily for blood pressure CARVEDILOL 40929471179 Active HEDY Esquivel Active SYNTHROID 0.088 MG TAB 1 tablet by mouth daily for thyroid LEVOTHYROXINE SODIUM 97906029777 Active HEDY Esquivel Active AMOXICILLIN 500 MG CAP 1 tab by mouth 3 times daily AMOXICILLIN 24654379636 No Longer Active Alden Kim MD Active [facility]S VITAMIN D3 1000 UNIT CAPS TAKE 2 CAP DAILY CHOLECALCIFEROL Active Ana Cristina Vallejo MD PhD Active CALCIUM 500 MG TABS TAKE 3 TABS DAILY CALCIUM 41503038781 No Longer Active Mariaa Whitman APRN Active MULTIVITAMINS TABS TAKE 1 TAB DAILY MULTIPLE VITAMIN Active Anetajeannie Tavarezum SPANNER OPERATOR Active TYLENOL 325 MG TABS NEEDED ACETAMINOPHEN 42191544278 Active Aneta Tavarezum SPANNER OPERATOR Active GLUCOSAMINE-CHONDROITIN 500-400 MG TABS TAKE 1 TAB DAILY GLUCOSAMINE-CHONDROITIN 21266038982 Active Mariaa Whitman APRN Active NORVASC 10 MG TABS TAKE 1 TAB DAILY AMLODIPINE BESYLATE 18874732392 Active HEDY Esquivel Active LOVASTATIN 20 MG TABS 1 PO Q HS FOR CHOLESTEROL LOVASTATIN 62236383481 Active HEDY Esquivel Active ALENDRONATE SODIUM 70 MG TABS TAKE 1 TAB ONCE A WEEK ALENDRONATE SODIUM 70 MG TABS 748976 ALENDRONATE SODIUM Inactive ADULT ASPIRIN EC LOW STRENGTH 81 MG TBEC TAKE 1 TAB DAILY ADULT ASPIRIN EC LOW STRENGTH 81 MG TBEC 167568 ASPIRIN Inactive ALPRAZOLAM 0.25 MG TAB 1/2-1 tablet by mouth twice a day as needed for stress ALPRAZOLAM 0.25 MG TAB 498745 ALPRAZOLAM Inactive COLACE 100 MG CAP 1 po BID PRN Constipation COLACE 100 MG CAP 5379281 DOCUSATE SODIUM Inactive ADVIL 200 MG TABS TAKE NEEDED ADVIL 200 MG TABS 890275 IBUPROFEN Inactive BENADRYL ALLERGY 25 MG TABS NEEDED BENADRYL ALLERGY 25 MG TABS 2528993 DIPHENHYDRAMINE HCL Inactive FLONASE ALLERGY RELIEF 50 MCG/ACT NASAL SUSP One spray each nostril daily for allergies FLONASE ALLERGY RELIEF 50 MCG/ACT NASAL SUSP 9572250 FLUTICASONE PROPIONATE Inactive MIRALAX ORAL PACK Takes daily prn MIRALAX ORAL PACK 949830 POLYETHYLENE GLYCOL 3350 Inactive AUGMENTIN 875-125 MG TAB 1 po BID x 7 days AUGMENTIN 875-125 MG TAB 824105 AMOXICILLIN-POT CLAVULANATE Inactive HYDROCHLOROTHIAZIDE 12.5 MG CAPS 1 pill by mouth daily, for blood pressure HYDROCHLOROTHIAZIDE 12.5 MG CAPS 862440 HYDROCHLOROTHIAZIDE Inactive AMOXICILLIN 500 MG CAP 1 tab by mouth 3 times daily AMOXICILLIN 500 MG CAP 269047 AMOXICILLIN Inactive BACTRIM DS 800-160 MG TABS 1 pill by mouth twice daily, for UTI BACTRIM DS 800-160 MG TABS 652097 SULFAMETHOXAZOLE-TRIMETHOPRIM Inactive Advance Directives Directive Description Start [...] Panel - Chemistry sodium, serum 130 mmol/L 291-885 4782/10/19 potassium, serum 3.5 mmol/L 3.5-5.2 chloride, serum 92 mmol/L 98-107 carbon dioxide, venous blood 33.6 mmol/L 21.0-32.0 blood glucose 118 mg/dL 65-110 calcium, serum 8.8 mg/dL 8.5-10.1 urea nitrogen, blood 11 mg/dL 7-18 creatinine, serum 1.12 mg/dL 0.55-1.30 Lab Report: CBC-QUEST, COMPREHENSIVE METABOLIC PANEL, LIPID PANEL, Micro ... - Chemistry cholesterol, serum 162 mg/dL 061-872 7640/05/01 HDL cholesterol, serum 68 mg/dL > OR=46 [...] % 11.0-15.0 platelet count 297 THOUSAND/UL 10*3/mm3 244-637 8918/05/01 mean platelet volume 8.9 fL 7.5-12.5 Lab [...] Negative Encounters Code Encounter Date Provider Facility CPT-44777 Level 3 Est. Patient 13:55:49 CDT Jalil Hayes MD [facility] CPT-77374 Level 3 Est. Patient 14:38:15 CDT Jalil Hayes MD [facility] CPT-07734 Level 4 Est. Patient 14:40:54 CDT Bee Rosas [facility] CPT-20405 Level 4 Est. Patient 10:31:15 CDT Jalil Hayes MD [facility] CPT-48111 Level 4 Est. Patient 15:07:54 CDT Mariaa Whitman [facility] CPT-38534 Level 3 Est. Patient 20:45:54 CROSS TIE MAKER Mariaa Whitman [facility] CPT-87937 Level 3 Est. Patient 12:16:16 CDT Ana Cristina Vallejo MD [facility] CPT-01730 Level 4 Est. Patient 12:49:21 CDT Ana Cristina Vallejo MD [facility] CPT-31394 Level 4 Est. Patient 23:02:25 CDT Ana Cristina Vallejo MD [facility] CPT-98312 Level 4 Est. Patient 19:26:33 CROSS TIE MAKER Ana Cristina Vallejo MD [facility]-80443 Level 4 Est. Patient 11:28:14 CDT Ana Cristina Vallejo MD [facility]-49722 Level 4 Est. Patient 15:35:46 CROSS TIE MAKER Ana Cristina Vallejo MD [facility] CPT-91346 Level 3 Est. Patient 21:06:39 CROSS TIE MAKER Alden Kim MD [facility] CPT-91677 Level 4 Est. Patient 15:30:54 CROSS TIE MAKER Ana Cristina Vallejo MD [facility] Procedures Code Procedure Name Date Entry Date Standard Description CPT-TCMM Transitional Care Mgmt-Moderate 14:41:55 CDT CPT-35776 EKG Trac and Interp - XRAY USE ONLY 10:35:11 CDT 09/11 CPT-36477 Chest 2V Frontal and Lat - XRAY USE ONLY 10:35:11 CDT CPT-G0438 Initial Annual Wellness Exam 14:54:07 CDT CPT-G0009 Administration of Pneumococcal Vaccine 14:44:24 CDT CPT-69267 Pneumovax 23 Injection Injectable 25 MCG/0.5ML 14:44:24 CDT CPT-88430 First Vx - Ix admin for Medicare patients 14:44:24 CDT CPT-40537 Fluzone High-Dose Intramuscular Suspension 14:44:20 CDT CPT-48447 BMP - LAB USE ONLY 12:38:06 CDT CPT-00471 Urine Culture - LAB USE ONLY 16:56:33 CDT CPT-TCMM Transitional Care Mgmt-Moderate 18:08:16 CDT CPT-05498 Bone Density 09:14:12 CDT CPT-000 Give Appropriate Flu Vaccine 14:51:52 CDT CPT-45580 Fluzone High Dose (>=65 yrs.) 15:19:23 CDT CPT-05211 Immunization Single Admin 15:19:23 CDT CPT-06688 Prevnar 13 15:40:03 CDT CPT-91447 Administration single or combination vaccine inc oral 15 :40:03 CDT CPT-81368 Prevnar 13 13:55:07 CDT CPT-G0008 Administration of Influenza Virus Vaccine 10:49:51 CDT CPT-85824 Fluzone High-Dose Intramuscular Suspension 10:49:51 CDT CPT-28865 Knee 3V 13:31:37 CDT CPT-89504 Bone Density 09:07:05 CROSS TIE MAKER CPT-14939 Nail Avulsion 09:46:05 CDT CPT-00560 Administration single or combination vaccine inc oral 16 :11:54 CDT CPT-34840 Influenza High Dose age 65+ 16:11:54 CDT CPT-15344 Administration single or combination vaccine inc oral 10 :53:15 CDT CPT-80560 Influenza High Dose age 65+ 10:53:15 CDT CPT-77849 Bone Density 14:50:58 CROSS TIE MAKER CPT-46212 Administration single or combination vaccine inc oral 15 :41:20 CROSS TIE MAKER CPT-53249 Zoster Vaccine (Zostavax) 15:41:20 CROSS TIE MAKER CPT-54469 Spec Collection and Handling Fee 11:18:25 CROSS TIE MAKER CPT-13701 Administration single or combination vaccine inc oral 11 :14:20 CDT CPT-06842 Influenza High Dose age 65+ 11:14:20 CDT
--- OUTSIDE RECORDS SUMMARY | 2017-07-18 08:24 | XMS REPORT | Clinical Summary ---
Author Author Admin, DANDRE Organization [facility] Address Unknown Phone Unavailable Allergies, Adverse Reactions, [...] PhD INGROWN TOENAIL, INFECTED ICD-703.0 Inactive Ana Crisitna Vallejo MD PhD HEALTH SCREENING ICD-V70.0 Inactive Ana Cristina Vallejo MD PhD INGROWN TOENAIL ICD-703.0 Inactive Ana Cristina Vallejo MD PhD Medication List Medication Instructions Start Date Stop Date Generic Name NDC Status Provider Patient Instruction BACTRIM DS 800-160 MG TABS 1 pill by mouth twice daily, for UTI SULFAMETHOXAZOLE-TRIMETHOPRIM [id number] No Longer Active Ana Cristina Vallejo MD PhD Active HYDROCHLOROTHIAZIDE 12.5 MG CAPS 1 pill by mouth daily, for blood pressure HYDROCHLOROTHIAZIDE 37113634679 Active Mariaadomenico Whitman APRN Active CARVEDILOL 25 MG TABS 1 pill by mouth twice daily for blood pressure CARVEDILOL 17498057549 Active Mariaa Yokum HAM STRINGER Active SYNTHROID 0.088 MG TAB 1 tablet by mouth daily for thyroid LEVOTHYROXINE SODIUM 03193634574 Active Mariaa Laudee HAM STRINGER Active AMOXICILLIN 500 MG CAP 1 tab by mouth 3 times daily AMOXICILLIN 90793563422 No Longer Active Alden Kim MD Active [facility] VITAMIN D3 1000 UNIT CAPS TAKE 2 CAP DAILY CHOLECALCIFEROL 01420150652 Active Ana Cristina Vallejo MD PhD Active CALCIUM 500 MG TABS TAKE 3 TABS DAILY CALCIUM 58090567150 Active Aneta Samantha Leo SUMMER LAW ASSOCIATE Active MULTIVITAMINS TABS TAKE 1 TAB DAILY MULTIPLE VITAMIN 89423929473 Active Aneta Tavarezum SUMMER LAW ASSOCIATE Active BENADRYL ALLERGY 25 MG TABS NEEDED DIPHENHYDRAMINE HCL 91498605056 Active Aneta Singh Leo SUMMER LAW ASSOCIATE Active TYLENOL 325 MG TABS NEEDED ACETAMINOPHEN 32886491380 Active Aneta Tavarezum SUMMER LAW ASSOCIATE Active ADVIL 200 MG TABS TAKE NEEDED IBUPROFEN 05582351971 Active Aneta D Leo SUMMER LAW ASSOCIATE Active ADULT ASPIRIN EC LOW STRENGTH 81 MG TBEC TAKE 1 TAB DAILY ASPIRIN 82829284912 Active Aneta Tavarezum SUMMER LAW ASSOCIATE Active VITAMIN E NATURAL 400 UNIT CAPS TAKE 1 CAP DAILY VITAMIN E 14643719308 Active Aneta Tavarezum SUMMER LAW ASSOCIATE Active GLUCOSAMINE-CHONDROITIN 500-400 MG TABS TAKE 1 TAB DAILY GLUCOSAMINE-CHONDROITIN 89890254610 Active Aneta Tavarezum SUMMER LAW ASSOCIATE Active NORVASC 10 MG TABS TAKE 1 TAB DAILY AMLODIPINE BESYLATE 92986497105 Active Mariaa Whitman APRN Active BENAZEPRIL HCL 40 MG TABS 1 PO BID BENAZEPRIL HCL 17553677330 Active HEDY Esquivel Active LOVASTATIN 20 MG TABS 1 PO Q HS FOR CHOLESTEROL LOVASTATIN 96242600128 Active Mariaa Whitman APRN Active RANITIDINE HCL 150 MG CAPS 1 PO Q 12 HRS RANITIDINE HCL 84233169415 Active Mariaa Whitman APRN Active ALENDRONATE SODIUM 70 MG TABS TAKE 1 TAB ONCE A WEEK ALENDRONATE SODIUM 90958640547 Active Mariaa Whitman APRN Active AMOXICILLIN 500 MG CAP 1 tab by mouth 3 times daily AMOXICILLIN 500 MG CAP 170764 AMOXICILLIN Inactive BACTRIM DS 800-160 MG TABS 1 pill by mouth twice daily, for UTI BACTRIM DS 800-160 MG TABS 752672 SULFAMETHOXAZOLE-TRIMETHOPRIM Inactive Immunizations Vaccine Administration Date Value [...] Panel - Chemistry sodium, serum 136 mmol/L 840-433 8256/03/24 potassium, serum 4.3 mmol/L 3.5-5.2 chloride, serum [...] 5.0-8.5 Encounters Code Encounter Date Provider Facility CPT-79066 Level 3 Est. Patient 20:45:54 METAL PAINTER Mariaa Whitman APRN [facility] CPT-03025 Level 3 Est. Patient 12:16:16 CDT Ana Cristina Vallejo MD [facility] CPT-19291 Level 4 Est. Patient 12:49:21 CDT Ana Cristina Vallejo MD PhD [facility] CPT-35269 Level 4 Est. Patient 23:02:25 CDT Ana Cristina Vallejo MD [facility]20075 Level 4 Est. Patient 19:26:33 METAL PAINTER Ana Cristina Vallejo MD PhD [facility]-67512 Level 4 Est. Patient 11:28:14 CDT Ana Cristina Vallejo MD PhD [facility] CPT-43914 Level 4 Est. Patient 15:35:46 METAL PAINTER Ana Cristina Vallejo MD PhD [facility] CPT-68007 Level 3 Est. Patient 21:06:39 METAL PAINTER Alden Kim MD [facility] CPT-65530 Level 4 Est. Patient 15:30:54 METAL PAINTER Ana Cristina Vallejo MD PhD [facility] Procedures Code Procedure Name Date Entry Date Standard Description CPT-000 Give Appropriate Flu Vaccine 14:51:52 CDT CPT-37992 Fluzone High Dose (>=65 yrs.) 15:19:23 CDT CPT-22621 Immunization Single Admin 15:19:23 CDT CPT-27853 Prevnar 13 15:40:03 CDT CPT-97515 Administration single or combination vaccine inc oral 15 :40:03 CDT CPT-39114 Prevnar 13 13:55:07 CDT CPT-G0008 Administration of Influenza Virus Vaccine 10:49:51 CDT CPT-43162 Fluzone High-Dose Intramuscular Suspension 10:49:51 CDT CPT-63952 Knee 3V 13:31:37 CDT CPT-85664 Bone Density 09:07:05 METAL PAINTER CPT-84511 Nail Avulsion 09:46:05 CDT CPT-79451 Administration single or combination vaccine inc oral 16 :11:54 CDT CPT-52902 Influenza High Dose age 65+ 16:11:54 CDT CPT-28961 Administration single or combination vaccine inc oral 10 :53:15 CDT CPT-77934 Influenza High Dose age 65+ 10:53:15 CDT CPT-45500 Bone Density 14:50:58 METAL PAINTER CPT-43146 Administration single or combination vaccine inc oral 15 :41:20 METAL PAINTER CPT-31321 Zoster Vaccine (Zostavax) 15:41:20 METAL PAINTER CPT-14532 Spec Collection and Handling Fee 11:18:25 METAL PAINTER CPT-63710 Administration single or combination vaccine inc oral 11 :14:20 CDT CPT-96200 Influenza High Dose age 65+ 11:14:20 CDT
--- OUTSIDE RECORDS SUMMARY | 2017-07-18 08:25 | XMS REPORT | Clinical Summary ---
Author Author Admin, DANDRE Organization [facility] Address Unknown Phone Unavailable Allergies, Adverse Reactions, Alerts Allergy Name Reaction Description Start Date Severity Status Provider NKDA Critical Active Mariaa Whitman GRAPHOTYPE OPERATOR Conditions or Problems Problem Name Problem Code Onset Date Status Entry Date Provider Comment Standard Description Annotate ROUTINE GYNECOLOGICAL EXAMINATION V72.31 Resolved Ana Cristina Vallejo MD PhD Routine gynecological examination MENOPAUSE 627.2 Ruled out Ana Cristina Vallejo MD PhD Symptomatic menopausal or female climacteric states MENOPAUSE 627.2 Active Brianda Reis [facility] Symptomatic menopausal or female climacteric [...] 1 daily for blood pressure BENAZEPRIL HCL 96539703722 Active Jalil Hayes MD Active HYDROCHLOROTHIAZIDE 12.5 MG CAPS 1 pill by mouth daily, for blood pressure HYDROCHLOROTHIAZIDE 26391362906 No Longer Active Jalil Hayes MD Active AUGMENTIN 875-125 MG TAB 1 po BID x 7 days AMOXICILLIN-POT CLAVULANATE 17207767743 No Longer Active Jalil Hayes MD Active OMEPRAZOLE 40 MG CPDR 1 po q a.m. OMEPRAZOLE 87882040983 Active Peggy Pardo LPN Active MIRALAX ORAL PACK Takes daily prn POLYETHYLENE GLYCOL 3350 94003231226 No Longer Active Peggy Pardo LPN Active FLONASE ALLERGY RELIEF 50 MCG/ACT NASAL SUSP One spray each nostril daily for allergies FLUTICASONE PROPIONATE 05788380718 No Longer Active Peggy Pardo LPN Active BENADRYL ALLERGY 25 MG TABS NEEDED DIPHENHYDRAMINE HCL 82305333287 No Longer Active Peggy Pardo LPN Active ADVIL 200 MG TABS TAKE NEEDED IBUPROFEN 71371789969 No Longer Active Peggy Edvin, ASSISTANT PRESS OPERATOR OFFSET Active COLACE 100 MG CAP 1 po BID PRN Constipation DOCUSATE SODIUM 19431443469 No Longer Active Deeptitayler Junior LPN Active ALPRAZOLAM 0.25 MG TAB 1/2-1 tablet by mouth twice a day as needed for stress ALPRAZOLAM 63574712965 No Longer Active Deepti Sandi ANGUIANON Active ALENDRONATE SODIUM 70 MG TABS 1 pill by mouth weekly for osteoporosis ALENDRONATE SODIUM 06221540035 Active Briandahelen Reis Robin Active E-1000 1000 UNIT ORAL CAPS Take one by mouth daily VITAMIN E 77933986040 Active Brianda Reis Robin Active OSCAL 500/200 D-3 500-200 MG-UNIT ORAL TABS Take one by mouth 3 times daily, morning, afternoon and evening.] CALCIUM CARBONATE-VITAMIN D 02183998222 Active Brianda KNOTT Active ASPIRIN 81 MG CHEW TAB 1 tablet by mouth daily ASPIRIN 43591897650 Active Brianda Reis Robin Active ADULT ASPIRIN EC LOW STRENGTH 81 MG TBEC TAKE 1 TAB DAILY ASPIRIN 55593410290 No Longer Active Mariaa Whitman GRAPHOTYPE OPERATOR Active ALENDRONATE SODIUM 70 MG TABS TAKE 1 TAB ONCE A WEEK ALENDRONATE SODIUM 75890253840 No Longer Active Mariaa Whitman GRAPHOTYPE OPERATOR Active CETIRIZINE HCL 10 MG ORAL TABS 1 po qd PRN Allergies CETIRIZINE HCL 19441011242 Active HEDY Esquivel Active BACTRIM DS 800-160 MG TABS 1 pill by mouth twice daily, for UTI SULFAMETHOXAZOLE-TRIMETHOPRIM 79932725236 No Longer Active Ana Cristina Vallejo MD PhD Active CARVEDILOL 25 MG TABS 1 pill by mouth twice daily for blood pressure CARVEDILOL 56577925866 Active HEDY Esquivel Active SYNTHROID 0.088 MG TAB 1 tablet by mouth daily for thyroid LEVOTHYROXINE SODIUM 49441878554 Active HEDY Esquivel Active AMOXICILLIN 500 MG CAP 1 tab by mouth 3 times daily AMOXICILLIN 68257873724 No Longer Active Alden Kim MD Active [facility]S VITAMIN D3 1000 UNIT CAPS TAKE 2 CAP DAILY CHOLECALCIFEROL Active Ana Cristina Vallejo MD PhD Active CALCIUM 500 MG TABS TAKE 3 TABS DAILY CALCIUM 07317358366 No Longer Active Mariaa Whitman APRN Active MULTIVITAMINS TABS TAKE 1 TAB DAILY MULTIPLE VITAMIN Active Aneta D Leo ASSISTANT PRESS OPERATOR OFFSET Active TYLENOL 325 MG TABS NEEDED ACETAMINOPHEN 21369309717 Active Aneta Singh Leo ASSISTANT PRESS OPERATOR OFFSET Active GLUCOSAMINE-CHONDROITIN 500-400 MG TABS TAKE 1 TAB DAILY GLUCOSAMINE-CHONDROITIN 38490950808 Active Mariaa Whitman APRN Active NORVASC 10 MG TABS TAKE 1 TAB DAILY AMLODIPINE BESYLATE 39562564967 Active HEDY Esquivel Active LOVASTATIN 20 MG TABS 1 PO Q HS FOR CHOLESTEROL LOVASTATIN 49456457227 Active HEDY Esquivel Active RANITIDINE HCL 150 MG CAPS 1 PO Q 12 HRS RANITIDINE HCL 39891847317 Active HEDY Esquivel Active ALENDRONATE SODIUM 70 MG TABS TAKE 1 TAB ONCE A WEEK ALENDRONATE SODIUM 70 MG TABS 630400 ALENDRONATE SODIUM Inactive ADULT ASPIRIN EC LOW STRENGTH 81 MG TBEC TAKE 1 TAB DAILY ADULT ASPIRIN EC LOW STRENGTH 81 MG TBEC 538507 ASPIRIN Inactive ALPRAZOLAM 0.25 MG TAB 1/2-1 tablet by mouth twice a day as needed for stress ALPRAZOLAM 0.25 MG TAB 525120 ALPRAZOLAM Inactive COLACE 100 MG CAP 1 po BID PRN Constipation COLACE 100 MG CAP 5052937 DOCUSATE SODIUM Inactive ADVIL 200 MG TABS TAKE NEEDED ADVIL 200 MG TABS 040848 IBUPROFEN Inactive BENADRYL ALLERGY 25 MG TABS NEEDED BENADRYL ALLERGY 25 MG TABS 7300800 DIPHENHYDRAMINE HCL Inactive FLONASE ALLERGY RELIEF 50 MCG/ACT NASAL SUSP One spray each nostril daily for allergies FLONASE ALLERGY RELIEF 50 MCG/ACT NASAL SUSP 9267099 FLUTICASONE PROPIONATE Inactive MIRALAX ORAL PACK Takes daily prn MIRALAX ORAL PACK 325302 POLYETHYLENE GLYCOL 3350 Inactive AUGMENTIN 875-125 MG TAB 1 po BID x 7 days AUGMENTIN 875-125 MG TAB 456502 AMOXICILLIN-POT CLAVULANATE Inactive HYDROCHLOROTHIAZIDE 12.5 MG CAPS 1 pill by mouth daily, for blood pressure HYDROCHLOROTHIAZIDE 12.5 MG CAPS 321732 HYDROCHLOROTHIAZIDE Inactive AMOXICILLIN 500 MG CAP 1 tab by mouth 3 times daily AMOXICILLIN 500 MG CAP 169384 AMOXICILLIN Inactive BACTRIM DS 800-160 MG TABS 1 pill by mouth twice daily, for UTI BACTRIM DS 800-160 MG TABS 225161 SULFAMETHOXAZOLE-TRIMETHOPRIM Inactive Advance Directives Directive Description Start [...] Panel - Chemistry sodium, serum 130 mmol/L 251-230 0092/10/19 potassium, serum 3.5 mmol/L 3.5-5.2 chloride, serum 92 mmol/L 98-107 carbon dioxide, venous blood 33.6 mmol/L 21.0-32.0 blood glucose 118 mg/dL 65-110 calcium, serum 8.8 mg/dL 8.5-10.1 urea nitrogen, blood 11 mg/dL 7-18 creatinine, serum 1.12 mg/dL 0.55-1.30 Lab Report: CBC-QUEST, COMPREHENSIVE METABOLIC PANEL, LIPID PANEL, Micro ... - Chemistry cholesterol, serum 162 mg/dL 324-691 7453/05/01 HDL cholesterol, serum 68 mg/dL > OR=46 [...] % 11.0-15.0 platelet count 297 THOUSAND/UL 10*3/mm3 324-070 0848/05/01 mean platelet volume 8.9 fL 7.5-12.5 Lab [...] Negative Encounters Code Encounter Date Provider Facility [facility]-37222 Level 3 Est. Patient 14:38:15 CDT Jalil Hayes MD [facility]-81905 Level 4 Est. Patient 14:40:54 CDT Bee Rosas [facility]-76751 Level 4 Est. Patient 10:31:15 CDT Jalil Hayes MD [facility]-35971 Level 4 Est. Patient 15:07:54 CDT Mariaa Whitman [facility]-64067 Level 3 Est. 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 Patient 12:16:16 CDT Ana Cristina Vallejo MD [facility]76493 Level 4 Est. Patient 12:49:21 CDT Ana Cristina Vallejo MD [facility]20809 Level 4 Est. Patient 23:02:25 CDT Ana Cristina Vallejo MD [facility]81826 Level 4 Est. Patient 19:26:33 WILDLAND FIREFIGHTER Ana Cristina Vallejo MD [facility]76651 Level 4 Est. Patient 11:28:14 CDT Ana Cristina Vallejo MD [facility]59930 Level 4 Est. Patient 15:35:46 WILDLAND FIREFIGHTER Ana Cristina Vallejo MD [facility]20162 Level 3 Est. Patient 21:06:39 WILDLAND FIREFIGHTER Alden Kim MD [facility] CPT-49074 Level 4 Est. Patient 15:30:54 WILDLAND FIREFIGHTER Ana Cristina Vallejo MD PhD [facility] Procedures Code Procedure Name Date Entry Date Standard Description CPT-TCMM Transitional Care Mgmt-Moderate 14:41:55 CDT CPT-30869 EKG Trac and Interp - XRAY USE ONLY 10:35:11 CDT 09/11 CPT-25658 Chest 2V Frontal and Lat - XRAY USE ONLY 10:35:11 CDT CPT-G0438 Initial Annual Wellness Exam 14:54:07 CDT CPT-G0009 Administration of Pneumococcal Vaccine 14:44:24 CDT CPT-33923 Pneumovax 23 Injection Injectable 25 MCG/0.5ML 14:44:24 CDT CPT-54984 First Vx - Ix admin for Medicare patients 14:44:24 CDT CPT-21544 Fluzone High-Dose Intramuscular Suspension 14:44:20 CDT CPT-00562 BMP - LAB USE ONLY 12:38:06 CDT CPT-82414 Urine Culture - LAB USE ONLY 16:56:33 CDT CPT-TCMM Transitional Care Mgmt-Moderate 18:08:16 CDT CPT-02706 Bone Density 09:14:12 CDT CPT-000 Give Appropriate Flu Vaccine 14:51:52 CDT CPT-97961 Fluzone High Dose (>=65 yrs.) 15:19:23 CDT CPT-92898 Immunization Single Admin 15:19:23 CDT CPT-86019 Prevnar 13 15:40:03 CDT CPT-45178 Administration single or combination vaccine inc oral 15 :40:03 CDT CPT-52328 Prevnar 13 13:55:07 CDT CPT-G0008 Administration of Influenza Virus Vaccine 10:49:51 CDT CPT-43974 Fluzone High-Dose Intramuscular Suspension 10:49:51 CDT CPT-70872 Knee 3V 13:31:37 CDT CPT-27404 Bone Density 09:07:05 WILDLAND FIREFIGHTER CPT-43913 Nail Avulsion 09:46:05 CDT CPT-74575 Administration single or combination vaccine inc oral 16 :11:54 CDT CPT-60410 Influenza High Dose age 65+ 16:11:54 CDT CPT-64557 Administration single or combination vaccine inc oral 10 :53:15 CDT CPT-30239 Influenza High Dose age 65+ 10:53:15 CDT CPT-29403 Bone Density 14:50:58 WILDLAND FIREFIGHTER CPT-16513 Administration single or combination vaccine inc oral 15 :41:20 WILDLAND FIREFIGHTER CPT-61359 Zoster Vaccine (Zostavax) 15:41:20 WILDLAND FIREFIGHTER CPT-44607 Spec Collection and Handling Fee 11:18:25 WILDLAND FIREFIGHTER CPT-28630 Administration single or combination vaccine inc oral 11 :14:20 CDT CPT-08377 Influenza High Dose age 65+ 11:14:20 CDT
--- OUTSIDE RECORDS SUMMARY | 2017-07-18 08:25 | XMS REPORT | Clinical Summary ---
Author Author Admin, DANDRE Organization [facility] [employer] Address Unknown Phone Unavailable Allergies, Adverse Reactions, Alerts Allergy Name Reaction Description Start Date Severity Status Provider NKDA Critical Active Mariaa Whitman COMMUNICATION ARTS LECTURER Conditions or Problems Problem Name Problem Code [...] APRN Sciatica Urinary bladder pain 788.99 Resolved Jalli Hayes MD Other symptoms involving urinary system [...] Generic Name NDC Status Provider Patient Instruction OMEPRAZOLE 40 MG CPDR 1 po q a.m. OMEPRAZOLE 95268574575 Active Peggy Pardo LPN Active MIRALAX ORAL PACK Takes daily prn POLYETHYLENE GLYCOL 3350 22676061931 No Longer Active Peggy Pardo LPN Active FLONASE ALLERGY RELIEF 50 MCG/ACT NASAL SUSP One spray each nostril daily for allergies FLUTICASONE PROPIONATE 80330545363 No Longer Active Peggy Pardo LPN Active BENADRYL ALLERGY 25 MG TABS NEEDED DIPHENHYDRAMINE HCL 17754403381 No Longer Active Peggy Pardo LPN Active ADVIL 200 MG TABS TAKE NEEDED IBUPROFEN 48716806562 No Longer Active Peggy Pardo LPN Active AUGMENTIN 875-125 MG TAB 1 po BID x 7 days AMOXICILLIN-POT CLAVULANATE 35408727392 Active Peggy Pardo LPN Active COLACE 100 MG CAP 1 po BID PRN Constipation DOCUSATE SODIUM 20966731115 No Longer Active Deepti Junior LPN Active ALPRAZOLAM 0.25 MG TAB 1/2-1 tablet by mouth twice a day as needed for stress ALPRAZOLAM 26775810345 No Longer Active Deepti Junior LPN Active ALENDRONATE SODIUM 70 MG TABS 1 pill by mouth weekly for osteoporosis ALENDRONATE SODIUM 29481404793 Active Brianda RICK Active E-1000 1000 UNIT ORAL CAPS Take one by mouth daily VITAMIN E 55117505158 Active Brianda KNOTT Active OSCAL 500/200 D-3 500-200 MG-UNIT ORAL TABS Take one by mouth 3 times daily, morning, afternoon and evening.] CALCIUM CARBONATE-VITAMIN D 51507552527 Active Brianda RICK Active ASPIRIN 81 MG CHEW TAB 1 tablet by mouth daily ASPIRIN 32609528819 Active Brianda Reis [facility] Active ADULT ASPIRIN EC LOW STRENGTH 81 MG TBEC TAKE 1 TAB DAILY ASPIRIN 51452269065 No Longer Active Mariaa Whitman APRN Active ALENDRONATE SODIUM 70 MG TABS TAKE 1 TAB ONCE A WEEK ALENDRONATE SODIUM 78451750758 No Longer Active Mariaa Whitman APRN Active CETIRIZINE HCL 10 MG ORAL TABS 1 po qd PRN Allergies CETIRIZINE HCL 87339427023 Active HEDY Esquivel Active BACTRIM DS 800-160 MG TABS 1 pill by mouth twice daily, for UTI SULFAMETHOXAZOLE-TRIMETHOPRIM 96496332444 No Longer Active Ana Cristina Vallejo MD PhD Active HYDROCHLOROTHIAZIDE 12.5 MG CAPS 1 pill by mouth daily, for blood pressure HYDROCHLOROTHIAZIDE 48417817338 Active HEDY Esquivel Active CARVEDILOL 25 MG TABS 1 pill by mouth twice daily for blood pressure CARVEDILOL 68931686376 Active HEDY sEquivel Active SYNTHROID 0.088 MG TAB 1 tablet by mouth daily for thyroid LEVOTHYROXINE SODIUM 67042161161 Active HEDY Esquivel Active AMOXICILLIN 500 MG CAP 1 tab by mouth 3 times daily AMOXICILLIN 37503524993 No Longer Active Alden Kim MD Active CVS VITAMIN D3 1000 UNIT CAPS TAKE 2 CAP DAILY CHOLECALCIFEROL Active Ana Cristina Vallejo MD PhD Active CALCIUM 500 MG TABS TAKE 3 TABS DAILY CALCIUM 06469132963 No Longer Active Mariaa Lauxuanbeckie COMMUNICATION ARTS LECTURER Active MULTIVITAMINS TABS TAKE 1 TAB DAILY MULTIPLE VITAMIN Active Aneta Tavarezum CODING CLERK Active TYLENOL 325 MG TABS NEEDED ACETAMINOPHEN 77801716041 Active Aneta Tavarezum CODING CLERK Active GLUCOSAMINE-CHONDROITIN 500-400 MG TABS TAKE 1 TAB DAILY GLUCOSAMINE-CHONDROITIN 99317884692 Active Mariaa Laudee COMMUNICATION ARTS LECTURER Active NORVASC 10 MG TABS TAKE 1 TAB DAILY AMLODIPINE BESYLATE 24151666103 Active Risa Calderon RMA Active BENAZEPRIL HCL 40 MG TABS 1 PO BID BENAZEPRIL HCL 76788164270 Active Risa Calderon RMA Active LOVASTATIN 20 MG TABS 1 PO Q HS FOR CHOLESTEROL LOVASTATIN 83281017544 Active Risa Calderon Robin Active RANITIDINE HCL 150 MG CAPS 1 PO Q 12 HRS RANITIDINE HCL 71745379997 Active Risa Calderon A Active ALENDRONATE SODIUM 70 MG TABS TAKE 1 TAB ONCE A WEEK ALENDRONATE SODIUM 70 MG TABS 801509 ALENDRONATE SODIUM Inactive ADULT ASPIRIN EC LOW STRENGTH 81 MG TBEC TAKE 1 TAB DAILY ADULT ASPIRIN EC LOW STRENGTH 81 MG TBEC 769755 ASPIRIN Inactive ALPRAZOLAM 0.25 MG TAB 1/2-1 tablet by mouth twice a day as needed for stress ALPRAZOLAM 0.25 MG TAB 274848 ALPRAZOLAM Inactive COLACE 100 MG CAP 1 po BID PRN Constipation COLACE 100 MG CAP 2347547 DOCUSATE SODIUM Inactive ADVIL 200 MG TABS TAKE NEEDED ADVIL 200 MG TABS 242665 IBUPROFEN Inactive BENADRYL ALLERGY 25 MG TABS NEEDED BENADRYL ALLERGY 25 MG TABS 0173972 DIPHENHYDRAMINE HCL Inactive FLONASE ALLERGY RELIEF 50 MCG/ACT NASAL SUSP One spray each nostril daily for allergies FLONASE ALLERGY RELIEF 50 MCG/ACT NASAL SUSP 1455487 FLUTICASONE PROPIONATE Inactive MIRALAX ORAL PACK Takes daily prn MIRALAX ORAL PACK 745328 POLYETHYLENE GLYCOL 3350 Inactive AMOXICILLIN 500 MG CAP 1 tab by mouth 3 times daily AMOXICILLIN 500 MG CAP 884814 AMOXICILLIN Inactive BACTRIM DS 800-160 MG TABS 1 pill by mouth twice daily, for UTI BACTRIM DS 800-160 MG TABS 422923 SULFAMETHOXAZOLE-TRIMETHOPRIM Inactive Advance Directives Directive Description Start [...] Panel - Chemistry sodium, serum 130 mmol/L 668-319 3623/10/19 potassium, serum 3.5 mmol/L 3.5-5.2 chloride, serum 92 mmol/L 98-107 carbon dioxide, venous blood 33.6 mmol/L 21.0-32.0 blood glucose 118 mg/dL 65-110 calcium, serum 8.8 mg/dL 8.5-10.1 urea nitrogen, blood 11 mg/dL 7-18 creatinine, serum 1.12 mg/dL 0.55-1.30 Lab Report: CBC-QUEST, COMPREHENSIVE METABOLIC PANEL, LIPID PANEL, Micro ... - Chemistry cholesterol, serum 162 mg/dL 357-120 9131/05/01 HDL cholesterol, serum 68 mg/dL > OR=46 [...] % 11.0-15.0 platelet count 297 THOUSAND/UL 10*3/mm3 244-828 8370/05/01 mean platelet volume 8.9 fL 7.5-12.5 Lab [...] Negative Encounters Code Encounter Date Provider Facility CPT-14022 Level 4 Est. Patient 14:40:54 CDT Bee Rosas [facility] CPT-22298 Level 4 Est. Patient 10:31:15 CDT Jalil Hayes MD [facility] CPT-08964 Level 4 Est. Patient 15:07:54 CDT Mariaa Whitman [facility] CPT-45616 Level 3 Est. Patient 20:45:54 TELEVISION ANALYZER Mariaa Antonette [facility] CPT-18794 Level 3 Est. Patient 12:16:16 CDT Ana Cristina Vallejo MD [facility] CPT-13329 Level 4 Est. Patient 12:49:21 CDT Ana Cristina Vallejo MD [facility] CPT-12119 Level 4 Est. Patient 23:02:25 CDT Ana Cristina Vallejo MD [facility] CPT-96515 Level 4 Est. Patient 19:26:33 TELEVISION ANALYZER Ana Cristina Vallejo MD [facility] CPT-05144 Level 4 Est. Patient 11:28:14 CDT Ana Cristina Vallejo MD [facility] CPT-48667 Level 4 Est. Patient 15:35:46 TELEVISION ANALYZER Ana Cristina Vallejo MD [facility] CPT-39394 Level 3 Est. Patient 21:06:39 TELEVISION ANALYZER Alden Kim MD [facility] CPT-90957 Level 4 Est. Patient 15:30:54 TELEVISION ANALYZER Ana Cristina Vallejo MD PhD [facility] Procedures Code Procedure Name Date Entry Date Standard Description CPT-48283 EKG Trac and Interp - XRAY USE ONLY 10:35:11 CDT 09/11 CPT-47577 Chest 2V Frontal and Lat - XRAY USE ONLY 10:35:11 CDT CPT-G0438 Initial Annual Wellness Exam 14:54:07 CDT CPT-G0009 Administration of Pneumococcal Vaccine 14:44:24 CDT CPT-08382 Pneumovax 23 Injection Injectable 25 MCG/0.5ML 14:44:24 CDT CPT-79786 First Vx - Ix admin for Medicare patients 14:44:24 CDT CPT-32311 Fluzone High-Dose Intramuscular Suspension 14:44:20 CDT CPT-96981 BMP - LAB USE ONLY 12:38:06 CDT CPT-45503 Urine Culture - LAB USE ONLY 16:56:33 CDT CPT-TCMM Transitional Care Mgmt-Moderate 18:08:16 CDT CPT-47539 Bone Density 09:14:12 CDT CPT-000 Give Appropriate Flu Vaccine 14:51:52 CDT CPT-89622 Fluzone High Dose (>=65 yrs.) 15:19:23 CDT CPT-43618 Immunization Single Admin 15:19:23 CDT CPT-90198 Prevnar 13 15:40:03 CDT CPT-89249 Administration single or combination vaccine inc oral 15 :40:03 CDT CPT-73794 Prevnar 13 13:55:07 CDT CPT-G0008 Administration of Influenza Virus Vaccine 10:49:51 CDT CPT-29567 Fluzone High-Dose Intramuscular Suspension 10:49:51 CDT CPT-38577 Knee 3V 13:31:37 CDT CPT-83437 Bone Density 09:07:05 TELEVISION ANALYZER CPT-73175 Nail Avulsion 09:46:05 CDT CPT-73403 Administration single or combination vaccine inc oral 16 :11:54 CDT CPT-23666 Influenza High Dose age 65+ 16:11:54 CDT CPT-50710 Administration single or combination vaccine inc oral 10 :53:15 CDT CPT-35184 Influenza High Dose age 65+ 10:53:15 CDT CPT-74895 Bone Density 14:50:58 TELEVISION ANALYZER CPT-78687 Administration single or combination vaccine inc oral 15 :41:20 TELEVISION ANALYZER CPT-87622 Zoster Vaccine (Zostavax) 15:41:20 TELEVISION ANALYZER CPT-69636 Spec Collection and Handling Fee 11:18:25 TELEVISION ANALYZER CPT-78162 Administration single or combination vaccine inc oral 11 :14:20 CDT CPT-41540 Influenza High Dose age 65+ 11:14:20 CDT
--- OUTSIDE RECORDS SUMMARY | 2017-07-18 08:26 | XMS REPORT | Clinical Summary ---
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 CAR WORKER Conditions or Problems Problem Name Problem Code Onset Date Status Entry Date Provider Comment Standard Description Annotate ROUTINE GYNECOLOGICAL EXAMINATION V72.31 Resolved Ana Cristina Vallejo MD PhD Routine gynecological examination MENOPAUSE 627.2 Ruled out Ana Cristina Vallejo MD PhD Symptomatic menopausal or female climacteric states MENOPAUSE 627.2 Active Brianda Reis [facility] Symptomatic menopausal or female climacteric states DIVERTICULOSIS, [...] a day as needed for stress ALPRAZOLAM 28665695858 Active Mariaa Whitman APRN Active COLACE 100 MG CAP 1 po BID PRN Constipation DOCUSATE SODIUM 72213494743 Active Mariaa Antonette SWARTZN Active MIRALAX ORAL PACK Takes daily prn POLYETHYLENE GLYCOL 3350 32682484759 Active Mariaa Atkinsonum MUD CAR WORKER Active ALENDRONATE SODIUM 70 MG TABS 1 pill by mouth weekly for osteoporosis ALENDRONATE SODIUM 71108314985 Active Brianda RICK Active E-1000 1000 UNIT ORAL CAPS Take one by mouth daily VITAMIN E 88088660196 Active Brianda KNOTT Active OSCAL 500/200 D-3 500-200 MG-UNIT ORAL TABS Take one by mouth 3 times daily, morning, afternoon and evening.] CALCIUM CARBONATE-VITAMIN D 63524050843 Active Brianda RICK Active ASPIRIN 81 MG CHEW TAB 1 tablet by mouth daily ASPIRIN 65030564858 Active Brianda RICK Active ADULT ASPIRIN EC LOW STRENGTH 81 MG TBEC TAKE 1 TAB DAILY ASPIRIN 54927869154 No Longer Active Mariaa Whitman APRN Active ALENDRONATE SODIUM 70 MG TABS TAKE 1 TAB ONCE A WEEK ALENDRONATE SODIUM 15700541275 No Longer Active Mariaa Whitman APRN Active FLONASE ALLERGY RELIEF 50 MCG/ACT NASAL SUSP One spray each nostril daily for allergies FLUTICASONE PROPIONATE 02368077279 Active Mariaa Whitman APRN Active CETIRIZINE HCL 10 MG ORAL TABS 1 po qd PRN Allergies CETIRIZINE HCL 21255398800 Active Mariaa Whitman APRN Active BACTRIM DS 800-160 MG TABS 1 pill by mouth twice daily, for UTI SULFAMETHOXAZOLE-TRIMETHOPRIM 88498861343 No Longer Active Ana Cristina Vallejo MD PhD Active HYDROCHLOROTHIAZIDE 12.5 MG CAPS 1 pill by mouth daily, for blood pressure HYDROCHLOROTHIAZIDE 29814906287 Active Mariaa Whitman APRN Active CARVEDILOL 25 MG TABS 1 pill by mouth twice daily for blood pressure CARVEDILOL 87244099678 Active Mariaa Whitman APRN Active SYNTHROID 0.088 MG TAB 1 tablet by mouth daily for thyroid LEVOTHYROXINE SODIUM 72911091558 Active Mariaa Yokum MUD CAR WORKER Active AMOXICILLIN 500 MG CAP 1 tab by mouth 3 times daily AMOXICILLIN 57128010591 No Longer Active Alden Kim MD Active CVS VITAMIN D3 1000 UNIT CAPS TAKE 2 CAP DAILY CHOLECALCIFEROL Active Ana Cristina Vallejo MD PhD Active CALCIUM 500 MG TABS TAKE 3 TABS DAILY CALCIUM 44878034646 No Longer Active Mariaa Yoxuanum MUD CAR WORKER Active MULTIVITAMINS TABS TAKE 1 TAB DAILY MULTIPLE VITAMIN Active Aneta D Leo EMERGENCY SERVICES DIRECTOR Active BENADRYL ALLERGY 25 MG TABS NEEDED DIPHENHYDRAMINE HCL 06233600445 Active Aneta D Leo EMERGENCY SERVICES DIRECTOR Active TYLENOL 325 MG TABS NEEDED ACETAMINOPHEN 44902463926 Active Aneta D Leo EMERGENCY SERVICES DIRECTOR Active ADVIL 200 MG TABS TAKE NEEDED IBUPROFEN 67339977479 Active Aneta D Leo EMERGENCY SERVICES DIRECTOR Active GLUCOSAMINE-CHONDROITIN 500-400 MG TABS TAKE 1 TAB DAILY GLUCOSAMINE-CHONDROITIN 12678700921 Active Mariaa Yokum MUD CAR WORKER Active NORVASC 10 MG TABS TAKE 1 TAB DAILY AMLODIPINE BESYLATE 78008146364 Active Mairaa Yokum MUD CAR WORKER Active BENAZEPRIL HCL 40 MG TABS 1 PO BID BENAZEPRIL HCL 21890492653 Active Mariaa Demetrioum MUD CAR WORKER Active LOVASTATIN 20 MG TABS 1 PO Q HS FOR CHOLESTEROL LOVASTATIN 47221724295 Active Mariaa Yokum MUD CAR WORKER Active RANITIDINE HCL 150 MG CAPS 1 PO Q 12 HRS RANITIDINE HCL 00914716914 Active Mariaa Yokum MUD CAR WORKER Active ALENDRONATE SODIUM 70 MG TABS TAKE 1 TAB ONCE A WEEK ALENDRONATE SODIUM 70 MG TABS 922618 ALENDRONATE SODIUM Inactive ADULT ASPIRIN EC LOW STRENGTH 81 MG TBEC TAKE 1 TAB DAILY ADULT ASPIRIN EC LOW STRENGTH 81 MG TBEC 947140 ASPIRIN Inactive AMOXICILLIN 500 MG CAP 1 tab by mouth 3 times daily AMOXICILLIN 500 MG CAP 177139 AMOXICILLIN Inactive BACTRIM DS 800-160 MG TABS 1 pill by mouth twice daily, for UTI BACTRIM DS 800-160 MG TABS 727964 SULFAMETHOXAZOLE-TRIMETHOPRIM Inactive Advance Directives Directive Description Start [...] Panel - Chemistry sodium, serum 130 mmol/L 612-178 4218/10/19 potassium, serum 3.5 mmol/L 3.5-5.2 chloride, serum [...] 1.41 ng/dL 0.76-1.46 cholesterol, serum 166 mg/dL 972-242 2384/04/20 triglyceride, serum, fasting 68 mg/dL 30-200 HDL cholesterol, serum 88 mg/dL 32-96 LDL cholesterol, serum 64 mg/dL 0-130 sodium, serum 132 mmol/L 620-050 1216/04/20 carbon dioxide, venous blood 31.3 mmol/L 21.0-32.0 [...] 5.0-8.5 Encounters Code Encounter Date Provider Facility CPT-62343 Level 4 Est. Patient 15:07:54 CDT Mariaa Whitman Formerly named [facility] CPT-37186 Level 3 Est. 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 Patient 12:16:16 CDT Ana Cristina Vallejo MD [facility]-83376 Level 4 Est. Patient 12:49:21 CDT Ana Cristina Vallejo MD [facility] CPT-62494 Level 4 Est. Patient 23:02:25 CDT Ana Cristina Vallejo MD [facility]-67497 Level 4 Est. Patient 19:26:33 DIGITAL HARDWARE DESIGN ENGINEER Ana Cristina Vallejo MD [facility]-15443 Level 4 Est. Patient 11:28:14 CDT Ana Cristina Vallejo MD [facility]-61871 Level 4 Est. Patient 15:35:46 DIGITAL HARDWARE DESIGN ENGINEER Ana Cristina Vallejo MD [facility] CPT-87272 Level 3 Est. Patient 21:06:39 DIGITAL HARDWARE DESIGN ENGINEER Alden Kim MD [facility] CPT-21866 Level 4 Est. Patient 15:30:54 DIGITAL HARDWARE DESIGN ENGINEER Ana Cristina Vallejo MD [facility] Procedures Code Procedure Name Date Entry Date Standard Description CPT-G0438 Initial Annual Wellness Exam 14:54:07 CDT CPT-G0009 Administration of Pneumococcal Vaccine 14:44:24 CDT CPT-80679 Pneumovax 23 Injection Injectable 25 MCG/0.5ML 14:44:24 CDT CPT-32153 First Vx - Ix admin for Medicare patients 14:44:24 CDT CPT-94027 Fluzone High-Dose Intramuscular Suspension 14:44:20 CDT CPT-20352 BMP - LAB USE ONLY 12:38:06 CDT CPT-79003 Urine Culture - LAB USE ONLY 16:56:33 CDT CPT-TCMM Transitional Care Mgmt-Moderate 18:08:16 CDT CPT-45076 Bone Density 09:14:12 CDT CPT-000 Give Appropriate Flu Vaccine 14:51:52 CDT CPT-73877 Fluzone High Dose (>=65 yrs.) 15:19:23 CDT CPT-38835 Immunization Single Admin 15:19:23 CDT CPT-62486 Prevnar 13 15:40:03 CDT CPT-83965 Administration single or combination vaccine inc oral 15 :40:03 CDT CPT-47848 Prevnar 13 13:55:07 CDT CPT-G0008 Administration of Influenza Virus Vaccine 10:49:51 CDT CPT-87965 Fluzone High-Dose Intramuscular Suspension 10:49:51 CDT CPT-15763 Knee 3V 13:31:37 CDT CPT-92021 Bone Density 09:07:05 DIGITAL HARDWARE DESIGN ENGINEER CPT-74336 Nail Avulsion 09:46:05 CDT CPT-02406 Administration single or combination vaccine inc oral 16 :11:54 CDT CPT-69532 Influenza High Dose age 65+ 16:11:54 CDT CPT-12985 Administration single or combination vaccine inc oral 10 :53:15 CDT CPT-83931 Influenza High Dose age 65+ 10:53:15 CDT CPT-33586 Bone Density 14:50:58 DIGITAL HARDWARE DESIGN ENGINEER CPT-68457 Administration single or combination vaccine inc oral 15 :41:20 DIGITAL HARDWARE DESIGN ENGINEER CPT-67552 Zoster Vaccine (Zostavax) 15:41:20 DIGITAL HARDWARE DESIGN ENGINEER CPT-16618 Spec Collection and Handling Fee 11:18:25 DIGITAL HARDWARE DESIGN ENGINEER CPT-32798 Administration single or combination vaccine inc oral 11 :14:20 CDT CPT-77366 Influenza High Dose age 65+ 11:14:20 CDT
--- OUTSIDE RECORDS SUMMARY | 2017-07-18 08:26 | XMS REPORT | Clinical Summary ---
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 Inactive Ana Cristina Valljeo MD PhD HEALTH SCREENING ICD-V70.0 Inactive Ana Cristina Vallejo MD PhD INGROWN TOENAIL ICD-703.0 Inactive Ana Cristina Vallejo MD PhD ROUTINE GYNECOLOGICAL EXAMINATION ICD-V72.31 Inactive Ana Cristina Vallejo MD PhD Medication List Medication Instructions Start Date Stop Date Generic Name NDC Status Provider Patient Instruction ALPRAZOLAM 0.25 MG TAB 1/2-1 tablet by mouth twice a day as needed for stress ALPRAZOLAM 56424535539 Active Mariaa Whitman APRN Active COLACE 100 MG CAP 1 po BID PRN Constipation DOCUSATE SODIUM 41344034096 Active Mariaa Antonette LUGO Active MIRALAX ORAL PACK Takes daily prn POLYETHYLENE GLYCOL 3350 66129814549 Active Mariaa Whitman APRN Active ALENDRONATE SODIUM 70 MG TABS 1 pill by mouth weekly for osteoporosis ALENDRONATE SODIUM 52192628360 Active Brianda KNOTT Active E-1000 1000 UNIT ORAL CAPS Take one by mouth daily VITAMIN E 43643751569 Active Brianda KNOTT Active OSCAL 500/200 D-3 500-200 MG-UNIT ORAL TABS Take one by mouth 3 times daily, morning, afternoon and evening.] CALCIUM CARBONATE-VITAMIN D 88401468920 Active Brianda RICK Active ASPIRIN 81 MG CHEW TAB 1 tablet by mouth daily ASPIRIN 08041713764 Active Brianda RICK Active ADULT ASPIRIN EC LOW STRENGTH 81 MG TBEC TAKE 1 TAB DAILY ASPIRIN 29405733693 No Longer Active Mariaa Whitman APRN Active ALENDRONATE SODIUM 70 MG TABS TAKE 1 TAB ONCE A WEEK ALENDRONATE SODIUM 29736882227 No Longer Active Mariaa Whitman APRN Active FLONASE ALLERGY RELIEF 50 MCG/ACT NASAL SUSP One spray each nostril daily for allergies FLUTICASONE PROPIONATE 39496459273 Active Mariaa Whitman APRN Active CETIRIZINE HCL 10 MG ORAL TABS 1 po qd PRN Allergies CETIRIZINE HCL 00869388846 Active Mariaa Whitman APRN Active BACTRIM DS 800-160 MG TABS 1 pill by mouth twice daily, for UTI SULFAMETHOXAZOLE-TRIMETHOPRIM 21343533941 No Longer Active Ana Cristina Vallejo MD PhD Active HYDROCHLOROTHIAZIDE 12.5 MG CAPS 1 pill by mouth daily, for blood pressure HYDROCHLOROTHIAZIDE 66029832190 Active Mariaa Whitman APRN Active CARVEDILOL 25 MG TABS 1 pill by mouth twice daily for blood pressure CARVEDILOL 84248616941 Active Mariaa Whitman APRN Active SYNTHROID 0.088 MG TAB 1 tablet by mouth daily for thyroid LEVOTHYROXINE SODIUM 80107006759 Active Mariaa Yoxuanum PEARL RESTORER Active AMOXICILLIN 500 MG CAP 1 tab by mouth 3 times daily AMOXICILLIN 20136122260 No Longer Active Alden Kim MD Active CVS VITAMIN D3 1000 UNIT CAPS TAKE 2 CAP DAILY CHOLECALCIFEROL Active Ana Cristina Vallejo MD PhD Active CALCIUM 500 MG TABS TAKE 3 TABS DAILY CALCIUM 41537010905 No Longer Active Mariaa Demetrioum PEARL RESTORER Active MULTIVITAMINS TABS TAKE 1 TAB DAILY MULTIPLE VITAMIN Active Aneta D Leo TOILET ATTENDANT Active BENADRYL ALLERGY 25 MG TABS NEEDED DIPHENHYDRAMINE HCL 38988057017 Active Aneta D Leo TOILET ATTENDANT Active TYLENOL 325 MG TABS NEEDED ACETAMINOPHEN 46158561854 Active Aneta D Leo TOILET ATTENDANT Active ADVIL 200 MG TABS TAKE NEEDED IBUPROFEN 52176743985 Active Aneta D Leo TOILET ATTENDANT Active GLUCOSAMINE-CHONDROITIN 500-400 MG TABS TAKE 1 TAB DAILY GLUCOSAMINE-CHONDROITIN 38406098352 Active Mariaadomenico Atkinsonum PEARL RESTORER Active NORVASC 10 MG TABS TAKE 1 TAB DAILY AMLODIPINE BESYLATE 95192047601 Active Mariaa Demetrioum PEARL RESTORER Active BENAZEPRIL HCL 40 MG TABS 1 PO BID BENAZEPRIL HCL 75045985765 Active Mariaa Demetrioum PEARL RESTORER Active LOVASTATIN 20 MG TABS 1 PO Q HS FOR CHOLESTEROL LOVASTATIN 22319313891 Active Mariaa Yokum PEARL RESTORER Active RANITIDINE HCL 150 MG CAPS 1 PO Q 12 HRS RANITIDINE HCL 73078090619 Active Mariaa Yokum PEARL RESTORER Active ALENDRONATE SODIUM 70 MG TABS TAKE 1 TAB ONCE A WEEK ALENDRONATE SODIUM 70 MG TABS 382925 ALENDRONATE SODIUM Inactive ADULT ASPIRIN EC LOW STRENGTH 81 MG TBEC TAKE 1 TAB DAILY ADULT ASPIRIN EC LOW STRENGTH 81 MG TBEC 043827 ASPIRIN Inactive AMOXICILLIN 500 MG CAP 1 tab by mouth 3 times daily AMOXICILLIN 500 MG CAP 079842 AMOXICILLIN Inactive BACTRIM DS 800-160 MG TABS 1 pill by mouth twice daily, for UTI BACTRIM DS 800-160 MG TABS 048195 SULFAMETHOXAZOLE-TRIMETHOPRIM Inactive Advance Directives Directive Description Start [...] Panel - Chemistry sodium, serum 130 mmol/L 977-872 3993/10/19 potassium, serum 3.5 mmol/L 3.5-5.2 chloride, serum [...] 1.41 ng/dL 0.76-1.46 cholesterol, serum 166 mg/dL 266-433 8803/04/20 triglyceride, serum, fasting 68 mg/dL 30-200 HDL cholesterol, serum 88 mg/dL 32-96 LDL cholesterol, serum 64 mg/dL 0-130 sodium, serum 132 mmol/L 117-827 4746/04/20 carbon dioxide, venous blood 31.3 mmol/L 21.0-32.0 [...] 5.0-8.5 Encounters Code Encounter Date Provider Facility CPT-19427 Level 4 Est. Patient 15:07:54 CDT Mariaa Whitman [facility] CPT-28732 Level 3 Est. 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 Patient 12:16:16 CDT Ana Cristina Vallejo MD [facility]-47464 Level 4 Est. Patient 12:49:21 CDT Ana Cristina Vallejo MD [facility]-34213 Level 4 Est. Patient 23:02:25 CDT Ana Cristina Vallejo MD [facility]-26329 Level 4 Est. Patient 19:26:33 STOCK TURNER Ana Cristina Vallejo MD [facility]-21463 Level 4 Est. Patient 11:28:14 CDT Ana Cristina Vallejo MD [facility]-92066 Level 4 Est. Patient 15:35:46 STOCK TURNER Ana Cristina Vallejo MD [facility] CPT-21597 Level 3 Est. Patient 21:06:39 STOCK TURNER Alden Kim MD [facility] CPT-07909 Level 4 Est. Patient 15:30:54 STOCK TURNER Ana Cristina Vallejo MD [facility] Procedures Code Procedure Name Date Entry Date Standard Description CPT-G0438 Initial Annual Wellness Exam 14:54:07 CDT CPT-G0009 Administration of Pneumococcal Vaccine 14:44:24 CDT CPT-26001 Pneumovax 23 Injection Injectable 25 MCG/0.5ML 14:44:24 CDT CPT-74036 First Vx - Ix admin for Medicare patients 14:44:24 CDT CPT-82179 Fluzone High-Dose Intramuscular Suspension 14:44:20 CDT CPT-56909 BMP - LAB USE ONLY 12:38:06 CDT CPT-20821 Urine Culture - LAB USE ONLY 16:56:33 CDT CPT-TCMM Transitional Care Mgmt-Moderate 18:08:16 CDT CPT-86785 Bone Density 09:14:12 CDT CPT-000 Give Appropriate Flu Vaccine 14:51:52 CDT CPT-78510 Fluzone High Dose (>=65 yrs.) 15:19:23 CDT CPT-63705 Immunization Single Admin 15:19:23 CDT CPT-02209 Prevnar 13 15:40:03 CDT CPT-14567 Administration single or combination vaccine inc oral 15 :40:03 CDT CPT-86707 Prevnar 13 13:55:07 CDT CPT-G0008 Administration of Influenza Virus Vaccine 10:49:51 CDT CPT-69753 Fluzone High-Dose Intramuscular Suspension 10:49:51 CDT CPT-86390 Knee 3V 13:31:37 CDT CPT-00956 Bone Density 09:07:05 STOCK TURNER CPT-67576 Nail Avulsion 09:46:05 CDT CPT-97256 Administration single or combination vaccine inc oral 16 :11:54 CDT CPT-97581 Influenza High Dose age 65+ 16:11:54 CDT CPT-47862 Administration single or combination vaccine inc oral 10 :53:15 CDT CPT-06844 Influenza High Dose age 65+ 10:53:15 CDT CPT-18575 Bone Density 14:50:58 STOCK TURNER CPT-70060 Administration single or combination vaccine inc oral 15 :41:20 STOCK TURNER CPT-67044 Zoster Vaccine (Zostavax) 15:41:20 STOCK TURNER CPT-39981 Spec Collection and Handling Fee 11:18:25 STOCK TURNER CPT-70291 Administration single or combination vaccine inc oral 11 :14:20 CDT CPT-93500 Influenza High Dose age 65+ 11:14:20 CDT
--- OUTSIDE RECORDS SUMMARY | 2017-07-18 08:27 | XMS REPORT | Clinical Summary ---
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 Problem Name Problem Code Onset Date Status Entry Date Provider Comment Standard Description Annotate ROUTINE GYNECOLOGICAL EXAMINATION V72.31 Resolved Ana Cristina Vallejo MD PhD Routine gynecological examination MENOPAUSE 627.2 Ruled out Ana Cristina Vallejo MD PhD Symptomatic menopausal or female climacteric states MENOPAUSE 627.2 Active Brianda Reis [facility] Symptomatic menopausal or female climacteric [...] 1 po BID PRN Constipation DOCUSATE SODIUM 88389922506 No Longer Active Deepti Madl ARMY MANAGER Active ALPRAZOLAM 0.25 MG TAB 1/2-1 tablet by mouth twice a day as needed for stress ALPRAZOLAM 84361331108 No Longer Active Deepti Madl ARMY MANAGER Active MIRALAX ORAL PACK Takes daily prn POLYETHYLENE GLYCOL 3350 27216587470 Active Mariaa Yokum HORIZONTAL DRILL OPERATOR Active ALENDRONATE SODIUM 70 MG TABS 1 pill by mouth weekly for osteoporosis ALENDRONATE SODIUM 94284445922 Active Brianda Reis [facility] Active E-1000 1000 UNIT ORAL CAPS Take one by mouth daily VITAMIN E 08117630460 Active Brianda Reis [facility] Active OSCAL 500/200 D-3 500-200 MG-UNIT ORAL TABS Take one by mouth 3 times daily, morning, afternoon and evening.] CALCIUM CARBONATE-VITAMIN D 03194691326 Active Brianda Reis [facility] Active ASPIRIN 81 MG CHEW TAB 1 tablet by mouth daily ASPIRIN 37695254456 Active Brianda Reis [facility] Active ADULT ASPIRIN EC LOW STRENGTH 81 MG TBEC TAKE 1 TAB DAILY ASPIRIN 89682388129 No Longer Active Mariaa Yokum HORIZONTAL DRILL OPERATOR Active ALENDRONATE SODIUM 70 MG TABS TAKE 1 TAB ONCE A WEEK ALENDRONATE SODIUM 13606839141 No Longer Active Mariaa Yokum HORIZONTAL DRILL OPERATOR Active FLONASE ALLERGY RELIEF 50 MCG/ACT NASAL SUSP One spray each nostril daily for allergies FLUTICASONE PROPIONATE 32254219681 Active Mariaa Whitman APRN Active CETIRIZINE HCL 10 MG ORAL TABS 1 po qd PRN Allergies CETIRIZINE HCL 01180356097 Active HEDY Esquivel Active BACTRIM DS 800-160 MG TABS 1 pill by mouth twice daily, for UTI SULFAMETHOXAZOLE-TRIMETHOPRIM 84519710987 No Longer Active Ana Cristina Vallejo MD PhD Active HYDROCHLOROTHIAZIDE 12.5 MG CAPS 1 pill by mouth daily, for blood pressure HYDROCHLOROTHIAZIDE 29315891217 Active HEDY Esquivel Active CARVEDILOL 25 MG TABS 1 pill by mouth twice daily for blood pressure CARVEDILOL 37186307397 Active HEDY Esquivel Active SYNTHROID 0.088 MG TAB 1 tablet by mouth daily for thyroid LEVOTHYROXINE SODIUM 23857779594 Active HEDY Esquivel Active AMOXICILLIN 500 MG CAP 1 tab by mouth 3 times daily AMOXICILLIN 72858605299 No Longer Active Alden Kim MD Active CVS VITAMIN D3 1000 UNIT CAPS TAKE 2 CAP DAILY CHOLECALCIFEROL Active Ana Cristina Vallejo MD PhD Active CALCIUM 500 MG TABS TAKE 3 TABS DAILY CALCIUM 32863996265 No Longer Active Mariaa Whitman APRN Active MULTIVITAMINS TABS TAKE 1 TAB DAILY MULTIPLE VITAMIN Active Anetajeannie Tavarezum ARMY MANAGER Active BENADRYL ALLERGY 25 MG TABS NEEDED DIPHENHYDRAMINE HCL 43339851162 Active Aneta Singh Leo ARMY MANAGER Active TYLENOL 325 MG TABS NEEDED ACETAMINOPHEN 04217293514 Active Aneta Singh Leo ARMY MANAGER Active ADVIL 200 MG TABS TAKE NEEDED IBUPROFEN 30281040473 Active Aneta Singh Leo ARMY MANAGER Active GLUCOSAMINE-CHONDROITIN 500-400 MG TABS TAKE 1 TAB DAILY GLUCOSAMINE-CHONDROITIN 40799140579 Active Mariaa Whitman APRN Active NORVASC 10 MG TABS TAKE 1 TAB DAILY AMLODIPINE BESYLATE 92704592934 Active HEDY Esquivel Active BENAZEPRIL HCL 40 MG TABS 1 PO BID BENAZEPRIL HCL 09209686831 Active HEDY Esquivel Active LOVASTATIN 20 MG TABS 1 PO Q HS FOR CHOLESTEROL LOVASTATIN 67049535935 Active HEDY Esquivel Active RANITIDINE HCL 150 MG CAPS 1 PO Q 12 HRS RANITIDINE HCL 59059938572 Active HEDY Esquivel Active ALPRAZOLAM 0.25 MG TAB 1/2-1 tablet by mouth twice a day as needed for stress ALPRAZOLAM 0.25 MG TAB 276270 ALPRAZOLAM Inactive AMOXICILLIN 500 MG CAP 1 tab by mouth 3 times daily AMOXICILLIN 500 MG CAP 990918 AMOXICILLIN Inactive BACTRIM DS 800-160 MG TABS 1 pill by mouth twice daily, for UTI BACTRIM DS 800-160 MG TABS 361677 SULFAMETHOXAZOLE-TRIMETHOPRIM Inactive COLACE 100 MG CAP 1 po BID PRN Constipation COLACE 100 MG CAP 4504970 DOCUSATE SODIUM Inactive ADULT ASPIRIN EC LOW STRENGTH 81 MG TBEC TAKE 1 TAB DAILY ADULT ASPIRIN EC LOW STRENGTH 81 MG TBEC 875306 ASPIRIN Inactive ALENDRONATE SODIUM 70 MG TABS TAKE 1 TAB ONCE A WEEK ALENDRONATE SODIUM 70 MG TABS 784335 ALENDRONATE SODIUM Inactive Advance Directives Directive Description Start Date [...] Panel - Chemistry sodium, serum 130 mmol/L 514-249 3635/10/19 potassium, serum 3.5 mmol/L 3.5-5.2 chloride, serum 92 mmol/L 98-107 carbon dioxide, venous blood 33.6 mmol/L 21.0-32.0 blood glucose 118 mg/dL 65-110 calcium, serum 8.8 mg/dL 8.5-10.1 urea nitrogen, blood 11 mg/dL 7-18 creatinine, serum 1.12 mg/dL 0.55-1.30 Lab Report: CBC-QUEST, COMPREHENSIVE METABOLIC PANEL, LIPID PANEL, Micro ... - Chemistry cholesterol, serum 162 mg/dL 429-477 2022/05/01 HDL cholesterol, serum 68 mg/dL > OR=46 [...] % 11.0-15.0 platelet count 297 THOUSAND/UL 10*3/mm3 243-609 9788/05/01 mean platelet volume 8.9 fL 7.5-12.5 Lab [...] strip Negative Negative bilirubin, urine Negative Negative pH, urine, semiquantitative 7.5 5.0-8.5 specific gravity, urine 1.010 1.000-1.030 appearance, urine Cloudy Clear urine color Yellow Colorless;Lightyellow;Straw;Yellow Encounters Code Encounter Date Provider Facility CPT-83547 Level 4 Est. Patient 14:40:54 CDT Bee Rosas [facility] CPT-72116 Level 4 Est. Patient 10:31:15 CDT Jalil Hayes MD [facility]-57322 Level 4 Est. Patient 15:07:54 CDT Mariaa Whitman [facility]-11748 Level 3 Est. 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 Patient 12:16:16 CDT Ana Cristina Vallejo MD PhD [facility] CPT-06202 Level 4 Est. Patient 12:49:21 CDT Ana Cristina Vallejo MD [facility]-65359 Level 4 Est. Patient 23:02:25 CDT Ana Cristina Vallejo MD PhD [facility] CPT-19185 Level 4 Est. Patient 19:26:33 RAWHIDE BONE ROLLER Ana Cristina Vallejo MD PhD [facility] CPT-02810 Level 4 Est. Patient 11:28:14 CDT Ana Cristina Vallejo MD PhD [facility] CPT-78923 Level 4 Est. Patient 15:35:46 RAWHIDE BONE ROLLER Ana Cristina aVllejo MD PhD [facility] CPT-96352 Level 3 Est. Patient 21:06:39 RAWHIDE BONE ROLLER Alden Kim MD [facility] CPT-30357 Level 4 Est. Patient 15:30:54 RAWHIDE BONE ROLLER Ana Cristina Vallejo MD PhD [facility] Procedures Code Procedure Name Date Entry Date Standard Description CPT-99007 EKG Trac and Interp - XRAY USE ONLY 10:35:11 CDT 09/11 CPT-80285 Chest 2V Frontal and Lat - XRAY USE ONLY 10:35:11 CDT CPT-G0438 Initial Annual Wellness Exam 14:54:07 CDT CPT-G0009 Administration of Pneumococcal Vaccine 14:44:24 CDT CPT-36912 Pneumovax 23 Injection Injectable 25 MCG/0.5ML 14:44:24 CDT CPT-95126 First Vx - Ix admin for Medicare patients 14:44:24 CDT CPT-66104 Fluzone High-Dose Intramuscular Suspension 14:44:20 CDT CPT-47656 BMP - LAB USE ONLY 12:38:06 CDT CPT-13618 Urine Culture - LAB USE ONLY 16:56:33 CDT CPT-TCMM Transitional Care Mgmt-Moderate 18:08:16 CDT CPT-33768 Bone Density 09:14:12 CDT CPT-000 Give Appropriate Flu Vaccine 14:51:52 CDT CPT-70182 Fluzone High Dose (>=65 yrs.) 15:19:23 CDT CPT-59043 Immunization Single Admin 15:19:23 CDT CPT-32386 Prevnar 13 15:40:03 CDT CPT-28511 Administration single or combination vaccine inc oral 15 :40:03 CDT CPT-92155 Prevnar 13:55:07 CDT CPT-G0008 Administration of Influenza Virus Vaccine 10:49:51 CDT CPT-21197 Fluzone High-Dose Intramuscular Suspension 10:49:51 CDT CPT-98221 Knee 3V 13:31:37 CDT CPT-71819 Bone Density 09:07:05 RAWHIDE BONE ROLLER CPT-86276 Nail Avulsion 09:46:05 CDT CPT-96328 Administration single or combination vaccine inc oral 16 :11:54 CDT CPT-95163 Influenza High Dose age 65+ 16:11:54 CDT CPT-01319 Administration single or combination vaccine inc oral 10 :53:15 CDT CPT-70012 Influenza High Dose age 65+ 10:53:15 CDT CPT-73080 Bone Density 14:50:58 RAWHIDE BONE ROLLER CPT-97304 Administration single or combination vaccine inc oral 15 :41:20 RAWHIDE BONE ROLLER CPT-44832 Zoster Vaccine (Zostavax) 15:41:20 RAWHIDE BONE ROLLER CPT-29101 Spec Collection and Handling Fee 11:18:25 RAWHIDE BONE ROLLER CPT-65587 Administration single or combination vaccine inc oral 11 :14:20 CDT CPT-45153 Influenza High Dose age 65+ 11:14:20 CDT
--- OUTSIDE RECORDS SUMMARY | 2017-07-18 08:27 | XMS REPORT | Clinical Summary ---
Author Author Admin, QIE Organization [facility] Address Unknown Phone Unavailable Allergies, Adverse Reactions, [...] each nostril daily for allergies FLUTICASONE PROPIONATE 01829562917 Active Mariaadomenico Whitman APRN Active CETIRIZINE HCL 10 MG ORAL TABS 1 po qd PRN Allergies CETIRIZINE HCL 69483325392 Active Mariaa Sidkum HEMODIALYSIS RN Active BACTRIM DS 800-160 MG TABS 1 pill by mouth twice daily, for UTI SULFAMETHOXAZOLE-TRIMETHOPRIM 77034476077 No Longer Active Ana Cristina Vallejo MD PhD Active HYDROCHLOROTHIAZIDE 12.5 MG CAPS 1 pill by mouth daily, for blood pressure HYDROCHLOROTHIAZIDE 66081260871 Active Mariaa Antonette HEMODIALYSIS RN Active CARVEDILOL 25 MG TABS 1 pill by mouth twice daily for blood pressure CARVEDILOL 15740411212 Active Mariaa Laudee SWARTZN Active SYNTHROID 0.088 MG TAB 1 tablet by mouth daily for thyroid LEVOTHYROXINE SODIUM 43332402983 Active Mariaa Antonette SWARTZN Active AMOXICILLIN 500 MG CAP 1 tab by mouth 3 times daily AMOXICILLIN 21488046502 No Longer Active Alden Kim MD Active CVS VITAMIN D3 1000 UNIT CAPS TAKE 2 CAP DAILY CHOLECALCIFEROL 56221416476 Active Ana Cristina Vallejo MD PhD Active CALCIUM 500 MG TABS TAKE 3 TABS DAILY CALCIUM 97467022266 Active Aneta Tavarezum POLITICAL SCIENTIST Active MULTIVITAMINS TABS TAKE 1 TAB DAILY MULTIPLE VITAMIN 80035684395 Active Aneta Tavarezum POLITICAL SCIENTIST Active BENADRYL ALLERGY 25 MG TABS NEEDED DIPHENHYDRAMINE HCL 68608227616 Active Aneta Tavarezum POLITICAL SCIENTIST Active TYLENOL 325 MG TABS NEEDED ACETAMINOPHEN 19963580459 Active Aneta Tavarezum POLITICAL SCIENTIST Active ADVIL 200 MG TABS TAKE NEEDED IBUPROFEN 91369800864 Active Aneta Tavarezum POLITICAL SCIENTIST Active ADULT ASPIRIN EC LOW STRENGTH 81 MG TBEC TAKE 1 TAB DAILY ASPIRIN 53182370212 Active Aneta Tavarezum POLITICAL SCIENTIST Active VITAMIN E NATURAL 400 UNIT CAPS TAKE 1 CAP DAILY VITAMIN E 44339914923 Active Aneta Tavarezum POLITICAL SCIENTIST Active GLUCOSAMINE-CHONDROITIN 500-400 MG TABS TAKE 1 TAB DAILY GLUCOSAMINE-CHONDROITIN 22475691345 Active Aneta Tavarezum POLITICAL SCIENTIST Active NORVASC 10 MG TABS TAKE 1 TAB DAILY AMLODIPINE BESYLATE 37665339853 Active Mariaa Whitman HEMODIALYSIS RN Active BENAZEPRIL HCL 40 MG TABS 1 PO BID BENAZEPRIL HCL 02592771338 Active Mariaa Whitman HEMODIALYSIS RN Active LOVASTATIN 20 MG TABS 1 PO Q HS FOR CHOLESTEROL LOVASTATIN 21674431666 Active Mariaa Whitman HEMODIALYSIS RN Active RANITIDINE HCL 150 MG CAPS 1 PO Q 12 HRS RANITIDINE HCL 39310496140 Active Mariaa Whitman HEMODIALYSIS RN Active ALENDRONATE SODIUM 70 MG TABS TAKE 1 TAB ONCE A WEEK ALENDRONATE SODIUM 32130386548 Active Mariaa Whitman HEMODIALYSIS RN Active AMOXICILLIN 500 MG CAP 1 tab by mouth 3 times daily AMOXICILLIN 500 MG CAP 071419 AMOXICILLIN Inactive BACTRIM DS 800-160 MG TABS 1 pill by mouth twice daily, for UTI BACTRIM DS 800-160 MG TABS 297280 SULFAMETHOXAZOLE-TRIMETHOPRIM Inactive Immunizations Vaccine Administration Date Value [...] 1.41 ng/dL 0.76-1.46 cholesterol, serum 166 mg/dL 641-849 2703/04/20 triglyceride, serum, fasting 68 mg/dL 30-200 HDL cholesterol, serum 88 mg/dL 32-96 LDL cholesterol, serum 64 mg/dL 0-130 sodium, serum 132 mmol/L 729-888 7074/04/20 carbon dioxide, venous blood 31.3 mmol/L 21.0-32.0 [...] W/MICRO, AUTO - Chemistry RBC, urine, dipstick Negative Negative protein, total urine random Negative mg/dL Negative Lab Report: UADIP W/MICRO, AUTO - Urinalysis pH, urine, semiquantitative 7.0 5.0-8.5 specific gravity, urine <=1.005 1.000-1.030 appearance, urine Clear Clear urine color Yellow Colorless;Lightyellow;Straw;Yellow urobilinogen, urine, semiquantitative (dipstick) 0.2 Normal leukocyte esterase, urine, by dipstick 1+ Negative nitrite, urine, semiquantitative Negative Negative glucose, urine, semiquantitative Negative Negative ketones, urine, by test strip Negative Negative bilirubin, urine Negative Negative Encounters Code Encounter Date Provider Facility CPT-45493 Level 4 Est. Patient 15:07:54 CDT Mariaa Whitman [facility]-92941 Level 3 Est. Patient 20:45:54 BOTTLE WASHER MACHINE Mariaa Whitman [facility]-23628 Level 3 Est. Patient 12:16:16 CDT Ana Cristina Vallejo MD [facility]-95969 Level 4 Est. Patient 12:49:21 CDT Ana Cristina Vallejo MD [facility]-52943 Level 4 Est. Patient 23:02:25 CDT Ana Cristina Vallejo MD [facility]39764 Level 4 Est. Patient 19:26:33 BOTTLE WASHER MACHINE Ana Cristina Vallejo MD [facility]-87572 Level 4 Est. Patient 11:28:14 CDT Ana Cristina Vallejo MD PhD [facility] CPT-58790 Level 4 Est. Patient 15:35:46 BOTTLE WASHER MACHINE Ana Cristina Vallejo MD PhD [facility] CPT-97836 Level 3 Est. Patient 21:06:39 BOTTLE WASHER MACHINE Alden Kim MD [facility] CPT-74843 Level 4 Est. Patient 15:30:54 BOTTLE WASHER MACHINE Ana Cristina Vallejo MD PhD [facility] Procedures Code Procedure Name Date Entry Date Standard Description CPT-84330 Bone Density 09:14:12 CDT CPT-000 Give Appropriate Flu Vaccine 14:51:52 CDT CPT-40494 Fluzone High Dose (>=65 yrs.) 15:19:23 CDT CPT-93135 Immunization Single Admin 15:19:23 CDT CPT-77837 Prevnar 13 15:40:03 CDT CPT-03850 Administration single or combination vaccine inc oral 15 :40:03 CDT CPT-97557 Prevnar 13 13:55:07 CDT CPT-G0008 Administration of Influenza Virus Vaccine 10:49:51 CDT CPT-33785 Fluzone High-Dose Intramuscular Suspension 10:49:51 CDT CPT-27317 Knee 3V 13:31:37 CDT CPT-70440 Bone Density 09:07:05 BOTTLE WASHER MACHINE CPT-59418 Nail Avulsion 09:46:05 CDT CPT-27052 Administration single or combination vaccine inc oral 16 :11:54 CDT CPT-83724 Influenza High Dose age 65+ 16:11:54 CDT CPT-88911 Administration single or combination vaccine inc oral 10 :53:15 CDT CPT-68285 Influenza High Dose age 65+ 10:53:15 CDT CPT-33085 Bone Density 14:50:58 BOTTLE WASHER MACHINE CPT-29221 Administration single or combination vaccine inc oral 15 :41:20 BOTTLE WASHER MACHINE CPT-39145 Zoster Vaccine (Zostavax) 15:41:20 BOTTLE WASHER MACHINE CPT-11002 Spec Collection and Handling Fee 11:18:25 BOTTLE WASHER MACHINE CPT-50652 Administration single or combination vaccine inc oral 11 :14:20 CDT CPT-55466 Influenza High Dose age 65+ 11:14:20 CDT
--- OUTSIDE RECORDS SUMMARY | 2017-07-18 08:27 | XMS REPORT ---
Author Author [employer] [facility] Medical Staff Organization [facility] [employer] [facility] Address [address] [place] [id number] Phone [phone] Care Team Providers Care Account Service Associate Name Role Phone IRISH ANDRE APRN PP [phone] Summary purpose TRANSITION OF CARE AUTO GENERATION Chief Complaint and Reason for Visit No [...] visit Relevant diagnostic tests and/or laboratory data RESULTS Routine Urinalysis [id number] Result Normal Range Units Color YELLOW Clarity Turbid Specific [place] 1.007 1.003-1.035 pH 6.5 4.5-8.0 Glucose NEGATIVE Bilirubin NEGATIVE Ketones NEGATIVE Protein 2+ Urobilinogen 0.2 0-0.2 E.U./dL Nitrites NEGATIVE Blood 3+ Leukocytes 3+ WBCs Too numerous to count RBCs 10-20 Squamous Epithelial Few Bacteria 1+ Routine Cultures [id number] Urine Culture Plate Date and Time 05/19/2015 00:31 SourceURINE CULTURE REPORT 30,000 colonies/ml Mixed Gram Pos [place] Release Date/Time: 05/20/2015 07:48 CULTURE REPORT 50,000 colonies/ml Mixed Gram Pos [place] No Further Work Up Release Date/Time: 05/21/2015 07:48 Body Fluid [id number] Result Normal Range Units pH 6.5 4.5-8.0 History of procedures Procedure Code Code Type Description Date Performed Performing Physician 02782 CPT-4 URINALYSIS AUTO W/SCOPE 05-19-2015 ALFREDO RIVERS 30441 CPT-4 URINE CULTURE/COLONY COUNT 05-19-2015 ALFREDO TITA A9270 CPT-4 NON-COVERED ITEM OR SERVICE 05-19-2015 ALFREDO TITA A9270 CPT-4 NON-COVERED ITEM OR SERVICE 05-19-2015 ALFREDO TITA 14368 CPT-4 EMERGENCY DEPT VISIT 05-18-2015 ALFREDO TITA 38562 CPT-4 EMERGENCY DEPT VISIT 05-18-2015 ALFREDO RIVERS Functional status Functional Status Finding Observation Time Diet regular :05 Abdomen Appearance round :05 Abdomen soft :05 Bowel Sounds present :05 [place]ay no :05 Urination burning :05 Quality sym/unlabored :05 Cough absent :05 Secretions no :05 Breath Sounds RUL clear :05 Breath Sounds RML clear :05 Breath Sounds RLL clear :05 Breath Sounds VALERIE clear :05 Breath Sounds LLL clear :05 Airway natural :05 Chest Tube no :05 Oxygen no :52 Temp >100.4 no :05 Temp <96.8 no :05 Chills with rigors no :05 HR > 90bpm no :05 Respirations > 20 no :05 Systolic <90 no :05 Nursing Note Reviewed home instructions and home prescription with pt and family - pt is up and assisted to wc and off unit at this time in good condition. : 52 Vital signs Type Value Date Respiration Rate 18breaths per minute :52 Pulse 68beats per minute :52 Oxygen Saturation 100% :52 BP Systolic 138mmHg :52 BP Diastolic 55mmHg :52 Temperature 98.0F :52 Social history Type Value Smoking Status FORMER SMOKER Treatment Plan No treatment plan text is available for this visit. Hospital discharge instructions Dismissal Condition good Disposition on DC home DC Inst/Educ Give yes Med/Side Effects Rev yes PNE Vac couple years Flu Vac 2014 Tetanus Vac unk
--- OUTSIDE RECORDS SUMMARY | 2017-07-18 08:28 | XMS REPORT | Clinical Summary ---
Author Author Admin, DANDRE Organization [facility] [employer] Address Unknown Phone Unavailable Allergies, Adverse Reactions, Alerts Allergy Name Reaction Description Start Date Severity Status Provider NKDA Critical Active Mariaa Whitman CEMETERY VAULT INSTALLER Conditions or Problems Problem Name Problem Code Onset Date Status Entry Date Provider Comment Standard Description Annotate ROUTINE GYNECOLOGICAL EXAMINATION V72.31 Resolved Ana Cristina Vallejo MD PhD Routine gynecological examination MENOPAUSE 627.2 Ruled out Ana Cristina Vallejo MD PhD Symptomatic menopausal or female climacteric states MENOPAUSE 627.2 Active Brianda Reis [facility] Symptomatic menopausal or female [...] Sciatica Sciatica, left 724.3 Active Mariaa Whitman CEMETERY VAULT INSTALLER Sciatica Urinary bladder pain 788.99 Resolved Jalil [...] 1 po BID PRN Constipation DOCUSATE SODIUM 84737276835 No Longer Active Deepti Madl HUMAN RESOURCES OPERATIONS COORDINATOR Active ALPRAZOLAM 0.25 MG TAB 1/2-1 tablet by mouth twice a day as needed for stress ALPRAZOLAM 28350671860 No Longer Active Deepti Madl HUMAN RESOURCES OPERATIONS COORDINATOR Active MIRALAX ORAL PACK Takes daily prn POLYETHYLENE GLYCOL 3350 33650320284 Active Mariaa Whitman CEMETERY VAULT INSTALLER Active ALENDRONATE SODIUM 70 MG TABS 1 pill by mouth weekly for osteoporosis ALENDRONATE SODIUM 30287384977 Active Brianda Reis [facility] Active E-1000 1000 UNIT ORAL CAPS Take one by mouth daily VITAMIN E 93000756044 Active [facility] Active OSCAL 500/200 D-3 500-200 MG-UNIT ORAL TABS Take one by mouth 3 times daily, morning, afternoon and evening.] CALCIUM CARBONATE-VITAMIN D 49377465146 Active [facility] Active ASPIRIN 81 MG CHEW TAB 1 tablet by mouth daily ASPIRIN 25723720391 Active Brianda [facility] Active ADULT ASPIRIN EC LOW STRENGTH 81 MG TBEC TAKE 1 TAB DAILY ASPIRIN 80882688335 No Longer Active Mariaa Whitman CEMETERY VAULT INSTALLER Active ALENDRONATE SODIUM 70 MG TABS TAKE 1 TAB ONCE A WEEK ALENDRONATE SODIUM 52725979785 No Longer Active Mariaa Atkinsonum CEMETERY VAULT INSTALLER Active FLONASE ALLERGY RELIEF 50 MCG/ACT NASAL SUSP One spray each nostril daily for allergies FLUTICASONE PROPIONATE 60893516629 Active Mariaa Atkinsonum CEMETERY VAULT INSTALLER Active CETIRIZINE HCL 10 MG ORAL TABS 1 po qd PRN Allergies CETIRIZINE HCL 80392824599 Active Mariaadomenico Whitman APRN Active BACTRIM DS 800-160 MG TABS 1 pill by mouth twice daily, for UTI SULFAMETHOXAZOLE-TRIMETHOPRIM 38273626231 No Longer Active Ana Cristina Vallejo MD PhD Active HYDROCHLOROTHIAZIDE 12.5 MG CAPS 1 pill by mouth daily, for blood pressure HYDROCHLOROTHIAZIDE 85425053346 Active Mariaa Whitman APRN Active CARVEDILOL 25 MG TABS 1 pill by mouth twice daily for blood pressure CARVEDILOL 35467178825 Active Mariaadomenico Whitman APRN Active SYNTHROID 0.088 MG TAB 1 tablet by mouth daily for thyroid LEVOTHYROXINE SODIUM 72460854122 Active HEDY Esquivel Active AMOXICILLIN 500 MG CAP 1 tab by mouth 3 times daily AMOXICILLIN 89071493239 No Longer Active Alden Kim MD Active CVS VITAMIN D3 1000 UNIT CAPS TAKE 2 CAP DAILY CHOLECALCIFEROL Active Ana Cristina Vallejo MD PhD Active CALCIUM 500 MG TABS TAKE 3 TABS DAILY CALCIUM 32849937089 No Longer Active Mariaa Whitman APRN Active MULTIVITAMINS TABS TAKE 1 TAB DAILY MULTIPLE VITAMIN Active Aneta D Leo HUMAN RESOURCES OPERATIONS COORDINATOR Active BENADRYL ALLERGY 25 MG TABS NEEDED DIPHENHYDRAMINE HCL 21077967559 Active Aneta D Leo HUMAN RESOURCES OPERATIONS COORDINATOR Active TYLENOL 325 MG TABS NEEDED ACETAMINOPHEN 77068447030 Active Aneta Singh Leo HUMAN RESOURCES OPERATIONS COORDINATOR Active ADVIL 200 MG TABS TAKE NEEDED IBUPROFEN 45527677936 Active Aneta D Leo HUMAN RESOURCES OPERATIONS COORDINATOR Active GLUCOSAMINE-CHONDROITIN 500-400 MG TABS TAKE 1 TAB DAILY GLUCOSAMINE-CHONDROITIN 31158439063 Active Mariaa Whitman APRN Active NORVASC 10 MG TABS TAKE 1 TAB DAILY AMLODIPINE BESYLATE 70723000022 Active Mariaa Whitman APRN Active BENAZEPRIL HCL 40 MG TABS 1 PO BID BENAZEPRIL HCL 36287772382 Active Risa Calderon, RMA Active LOVASTATIN 20 MG TABS 1 PO Q HS FOR CHOLESTEROL LOVASTATIN 14194098905 Active HEDY Esquivel Active RANITIDINE HCL 150 MG CAPS 1 PO Q 12 HRS RANITIDINE HCL 23408445417 Active Mariaa Whitman APRN Active ALENDRONATE SODIUM 70 MG TABS TAKE 1 TAB ONCE A WEEK ALENDRONATE SODIUM 70 MG TABS 647894 ALENDRONATE SODIUM Inactive ADULT ASPIRIN EC LOW STRENGTH 81 MG TBEC TAKE 1 TAB DAILY ADULT ASPIRIN EC LOW STRENGTH 81 MG TBEC 972310 ASPIRIN Inactive ALPRAZOLAM 0.25 MG TAB 1/2-1 tablet by mouth twice a day as needed for stress ALPRAZOLAM 0.25 MG TAB 550390 ALPRAZOLAM Inactive COLACE 100 MG CAP 1 po BID PRN Constipation COLACE 100 MG CAP 3271481 DOCUSATE SODIUM Inactive AMOXICILLIN 500 MG CAP 1 tab by mouth 3 times daily AMOXICILLIN 500 MG CAP 196809 AMOXICILLIN Inactive BACTRIM DS 800-160 MG TABS 1 pill by mouth twice daily, for UTI BACTRIM DS 800-160 MG TABS 316425 SULFAMETHOXAZOLE-TRIMETHOPRIM Inactive Advance Directives Directive Description Start [...] Panel - Chemistry sodium, serum 130 mmol/L 286-210 3826/10/19 potassium, serum 3.5 mmol/L 3.5-5.2 chloride, serum [...] 5.0-8.5 Encounters Code Encounter Date Provider Facility CPT-02351 Level 4 Est. Patient 10:31:15 CDT Jalil Hayes MD [facility]-93225 Level 4 Est. Patient 15:07:54 CDT Mariaa Whitman [facility]-85838 Level 3 Est. Patient 20:45:54 SHIP BOAT OR BARGE MATE Mariaa Whitman [facility] CPT-14978 Level 3 Est. Patient 12:16:16 CDT Ana Cristina Vallejo MD [facility] [place] Level 4 Est. Patient 12:49:21 CDT Ana Cristina Vallejo MD [facility] CPT-28682 Level 4 Est. Patient 23:02:25 CDT Ana Cristina Vallejo MD [facility] [place]89121 Level 4 Est. Patient 19:26:33 SHIP BOAT OR BARGE MATE Ana Cristina Vallejo MD [facility] [place]38090 Level 4 Est. Patient 11:28:14 CDT Ana Cristina Vallejo MD [facility] [place]-06161 Level 4 Est. Patient 15:35:46 SHIP BOAT OR BARGE MATE Ana Cristina Vallejo MD [facility] [place]-[address]318 Level 3 Est. Patient 21:06:39 SHIP BOAT OR BARGE MATE Alden Kim MD [facility]-29601 Level 4 Est. Patient 15:30:54 SHIP BOAT OR BARGE MATE Ana Cristina Vallejo MD [facility] Procedures Code Procedure Name Date Entry Date Standard Description CPT-62904 EKG Trac and Interp - XRAY USE ONLY 10:35:11 CDT 09/11 CPT-54625 Chest 2V Frontal and Lat - XRAY USE ONLY 10:35:11 CDT CPT-G0438 Initial Annual Wellness Exam 14:54:07 CDT CPT-G0009 Administration of Pneumococcal Vaccine 14:44:24 CDT CPT-12808 Pneumovax 23 Injection Injectable 25 MCG/0.5ML 14:44:24 CDT CPT-87927 First Vx - Ix admin for Medicare patients 14:44:24 CDT CPT-21079 Fluzone High-Dose Intramuscular Suspension 14:44:20 CDT CPT-76472 BMP - LAB USE ONLY 12:38:06 CDT CPT-78860 Urine Culture - LAB USE ONLY 16:56:33 CDT CPT-TCMM Transitional Care Mgmt-Moderate 18:08:16 CDT CPT-06697 Bone Density 09:14:12 CDT CPT-000 Give Appropriate Flu Vaccine 14:51:52 CDT CPT-38820 Fluzone High Dose (>=65 yrs.) 15:19:23 CDT CPT-39292 Immunization Single Admin 15:19:23 CDT CPT-63423 Prevnar 13 15:40:03 CDT CPT-31817 Administration single or combination vaccine inc oral 15 :40:03 CDT CPT-49236 Prevnar 13 13:55:07 CDT CPT-G0008 Administration of Influenza Virus Vaccine 10:49:51 CDT CPT-78410 Fluzone High-Dose Intramuscular Suspension 10:49:51 CDT CPT-82195 Knee 3V 13:31:37 CDT CPT-37619 Bone Density 09:07:05 SHIP BOAT OR BARGE MATE CPT-00614 Nail Avulsion 09:46:05 CDT CPT-07902 Administration single or combination vaccine inc oral 16 :11:54 CDT CPT-86154 Influenza High Dose age 65+ 16:11:54 CDT CPT-80821 Administration single or combination vaccine inc oral 10 :53:15 CDT CPT-40813 Influenza High Dose age 65+ 10:53:15 CDT CPT-20540 Bone Density 14:50:58 SHIP BOAT OR BARGE MATE CPT-72948 Administration single or combination vaccine inc oral 15 :41:20 SHIP BOAT OR BARGE MATE CPT-10599 Zoster Vaccine (Zostavax) 15:41:20 SHIP BOAT OR BARGE MATE CPT-25482 Spec Collection and Handling Fee 11:18:25 SHIP BOAT OR BARGE MATE CPT-56811 Administration single or combination vaccine inc oral 11 :14:20 CDT CPT-18713 Influenza High Dose age 65+ 11:14:20 CDT
--- OUTSIDE RECORDS SUMMARY | 2017-07-18 08:28 | XMS REPORT ---
Author Author [facility] Medical Staff Organization [facility] Address [address] [place], [place] [address] Phone [phone] Care Team Providers Care Pattern Clerk Name Role Phone MARCIO AGUAYO, LEANDRO PP [phone] Summary purpose TRANSITION OF CARE AUTO GENERATION [...] Code Type Description Date Performed Performing Physician 75627 CPT-4 ULTRASOUND THERAPY 08-13-2014 LEANDRO BUCKLEY 92645 CPT-4 ULTRASOUND THERAPY 08-18-2014 LEANDRO BUCKLEY Functional [...]
--- OUTSIDE RECORDS SUMMARY | 2017-07-18 08:28 | XMS REPORT | Clinical Summary ---
Author Author Admin, QIE Organization [employer] Address Unknown Phone Unavailable Allergies, Adverse Reactions, [...] each nostril daily for allergies FLUTICASONE PROPIONATE 19721018153 Active Mariaadomenico Whitman APRN Active CETIRIZINE HCL 10 MG ORAL TABS 1 po qd PRN Allergies CETIRIZINE HCL 34466396030 Active Mariaa Sidkum EMBOSSING PRESS OPERATOR APPRENTICE Active BACTRIM DS 800-160 MG TABS 1 pill by mouth twice daily, for UTI SULFAMETHOXAZOLE-TRIMETHOPRIM 39654923189 No Longer Active Ana Cristina Vallejo MD PhD Active HYDROCHLOROTHIAZIDE 12.5 MG CAPS 1 pill by mouth daily, for blood pressure HYDROCHLOROTHIAZIDE 40150717611 Active Mariaa Antonette EMBOSSING PRESS OPERATOR APPRENTICE Active CARVEDILOL 25 MG TABS 1 pill by mouth twice daily for blood pressure CARVEDILOL 07062180386 Active Mariaa Laudee SWARTZN Active SYNTHROID 0.088 MG TAB 1 tablet by mouth daily for thyroid LEVOTHYROXINE SODIUM 68860019403 Active Mariaa Antonette SWARTZN Active AMOXICILLIN 500 MG CAP 1 tab by mouth 3 times daily AMOXICILLIN 45367349235 No Longer Active Alden Kim MD Active CVS VITAMIN D3 1000 UNIT CAPS TAKE 2 CAP DAILY CHOLECALCIFEROL 05323237928 Active Ana Cristina Vallejo MD PhD Active CALCIUM 500 MG TABS TAKE 3 TABS DAILY CALCIUM 77874707720 Active Aneta Tavarezum FLATWARE MAKER Active MULTIVITAMINS TABS TAKE 1 TAB DAILY MULTIPLE VITAMIN 58688122065 Active Aneta Tavarezum FLATWARE MAKER Active BENADRYL ALLERGY 25 MG TABS NEEDED DIPHENHYDRAMINE HCL 44424509670 Active Aneta Tavarezum FLATWARE MAKER Active TYLENOL 325 MG TABS NEEDED ACETAMINOPHEN 00413725583 Active Aneta Tavarezum FLATWARE MAKER Active ADVIL 200 MG TABS TAKE NEEDED IBUPROFEN 05439018876 Active Aneta Tavarezum FLATWARE MAKER Active ADULT ASPIRIN EC LOW STRENGTH 81 MG TBEC TAKE 1 TAB DAILY ASPIRIN 75571312493 Active Aneta Tavarezum FLATWARE MAKER Active VITAMIN E NATURAL 400 UNIT CAPS TAKE 1 CAP DAILY VITAMIN E 86509701371 Active Aneta Tavarezum FLATWARE MAKER Active GLUCOSAMINE-CHONDROITIN 500-400 MG TABS TAKE 1 TAB DAILY GLUCOSAMINE-CHONDROITIN 47664259832 Active Aneta Tavarezum FLATWARE MAKER Active NORVASC 10 MG TABS TAKE 1 TAB DAILY AMLODIPINE BESYLATE 87596898068 Active Mariaa Wihtman EMBOSSING PRESS OPERATOR APPRENTICE Active BENAZEPRIL HCL 40 MG TABS 1 PO BID BENAZEPRIL HCL 85258556943 Active Mariaa Whitman EMBOSSING PRESS OPERATOR APPRENTICE Active LOVASTATIN 20 MG TABS 1 PO Q HS FOR CHOLESTEROL LOVASTATIN 64127755080 Active Mariaa Whitman EMBOSSING PRESS OPERATOR APPRENTICE Active RANITIDINE HCL 150 MG CAPS 1 PO Q 12 HRS RANITIDINE HCL 26978516395 Active Mariaa Whitman EMBOSSING PRESS OPERATOR APPRENTICE Active ALENDRONATE SODIUM 70 MG TABS TAKE 1 TAB ONCE A WEEK ALENDRONATE SODIUM 13473489406 Active Mariaa Whitman EMBOSSING PRESS OPERATOR APPRENTICE Active AMOXICILLIN 500 MG CAP 1 tab by mouth 3 times daily AMOXICILLIN 500 MG CAP 551049 AMOXICILLIN Inactive BACTRIM DS 800-160 MG TABS 1 pill by mouth twice daily, for UTI BACTRIM DS 800-160 MG TABS 656772 SULFAMETHOXAZOLE-TRIMETHOPRIM Inactive Immunizations Vaccine Administration Date Value [...] ... - Chemistry sodium, serum 132 mmol/L 392-242 1889/04/20 carbon dioxide, venous blood 31.3 mmol/L 21.0-32.0 [...] 1.41 ng/dL 0.76-1.46 cholesterol, serum 166 mg/dL 444-677 1686/04/20 triglyceride, serum, fasting 68 mg/dL 30-200 HDL [...] 5.0-8.5 Encounters Code Encounter Date Provider Facility CPT-78684 Level 3 Est. Patient 20:45:54 PAVING STONE INSTALLER Mariaa Whitman APRN [facility]-00670 Level 3 Est. Patient 12:16:16 CDT Ana Cristina Vallejo MD [facility]-76409 Level 4 Est. Patient 12:49:21 CDT Ana Cristina Vallejo MD [facility]-30473 Level 4 Est. Patient 23:02:25 CDT Ana Cristina Vallejo MD [facility]-72888 Level 4 Est. Patient 19:26:33 PAVING STONE INSTALLER Ana Cristina Vallejo MD [facility]46527 Level 4 Est. Patient 11:28:14 CDT Ana Cristina Vallejo MD [facility]-78900 Level 4 Est. Patient 15:35:46 PAVING STONE INSTALLER Ana Cristina Vallejo MD PhD [facility] CPT-26808 Level 3 Est. Patient 21:06:39 PAVING STONE INSTALLER Alden Kim MD [facility] CPT-18394 Level 4 Est. Patient 15:30:54 PAVING STONE INSTALLER Ana Cristina Vallejo MD PhD [facility] Procedures Code Procedure Name Date Entry Date Standard Description CPT-000 Give Appropriate Flu Vaccine 14:51:52 CDT CPT-68837 Fluzone High Dose (>=65 yrs.) 15:19:23 CDT CPT-80668 Immunization Single Admin 15:19:23 CDT CPT-30180 Prevnar 15:40:03 CDT CPT-27538 Administration single or combination vaccine inc oral 15 :40:03 CDT CPT-19315 Prevnar 13:55:07 CDT CPT-G0008 Administration of Influenza Virus Vaccine 10:49:51 CDT CPT-72282 Fluzone High-Dose Intramuscular Suspension 10:49:51 CDT CPT-77672 Knee 3V 13:31:37 CDT CPT-28678 Bone Density 09:07:05 PAVING STONE INSTALLER CPT-40839 Nail Avulsion 09:46:05 CDT CPT-22583 Administration single or combination vaccine inc oral 16 :11:54 CDT CPT-49102 Influenza High Dose age 65+ 16:11:54 CDT CPT-68143 Administration single or combination vaccine inc oral 10 :53:15 CDT CPT-60885 Influenza High Dose age 65+ 10:53:15 CDT CPT-08650 Bone Density 14:50:58 PAVING STONE INSTALLER CPT-71154 Administration single or combination vaccine inc oral 15 :41:20 PAVING STONE INSTALLER CPT-39423 Zoster Vaccine (Zostavax) 15:41:20 PAVING STONE INSTALLER CPT-12600 Spec Collection and Handling Fee 11:18:25 PAVING STONE INSTALLER CPT-66283 Administration single or combination vaccine inc oral 11 :14:20 CDT CPT-93640 Influenza High Dose age 65+ 11:14:20 CDT
--- OUTSIDE RECORDS SUMMARY | 2017-07-18 08:29 | XMS REPORT | Clinical Summary ---
Author Author Admin, DANDRE Organization [facility] Address Unknown Phone Unavailable Allergies, Adverse Reactions, Alerts Allergy Name Reaction Description Start Date Severity Status Provider NKDA Critical Active Mariaa Whitman STRUCTURAL IRONWORKER Conditions or Problems Problem Name Problem Code Onset Date Status Entry Date Provider Comment Standard Description Annotate ROUTINE GYNECOLOGICAL EXAMINATION V72.31 Resolved Ana Cristina Vallejo MD PhD Routine gynecological examination MENOPAUSE 627.2 Ruled out Ana Cristina Vallejo MD PhD Symptomatic menopausal or female climacteric states MENOPAUSE 627.2 Active Brianda Reis [facility] Symptomatic menopausal or female climacteric states DIVERTICULOSIS, [...] 1 po BID PRN Constipation DOCUSATE SODIUM 70313284160 No Longer Active Deepti Madl ASSISTANT FEDERAL PUBLIC DEFENDER Active ALPRAZOLAM 0.25 MG TAB 1/2-1 tablet by mouth twice a day as needed for stress ALPRAZOLAM 98359291524 No Longer Active Deepti Madl ASSISTANT FEDERAL PUBLIC DEFENDER Active MIRALAX ORAL PACK Takes daily prn POLYETHYLENE GLYCOL 3350 35679928322 Active Mariaa Yokum STRUCTURAL IRONWORKER Active ALENDRONATE SODIUM 70 MG TABS 1 pill by mouth weekly for osteoporosis ALENDRONATE SODIUM 03114060200 Active Brianda Reis [facility] Active E-1000 1000 UNIT ORAL CAPS Take one by mouth daily VITAMIN E 80876006919 Active Brianda Reis [facility] Active OSCAL 500/200 D-3 500-200 MG-UNIT ORAL TABS Take one by mouth 3 times daily, morning, afternoon and evening.] CALCIUM CARBONATE-VITAMIN D 24222743114 Active Brianda Reis [facility] Active ASPIRIN 81 MG CHEW TAB 1 tablet by mouth daily ASPIRIN 65661944254 Active Brianda Reis [facility] Active ADULT ASPIRIN EC LOW STRENGTH 81 MG TBEC TAKE 1 TAB DAILY ASPIRIN 89009755385 No Longer Active Mariaa Yokum STRUCTURAL IRONWORKER Active ALENDRONATE SODIUM 70 MG TABS TAKE 1 TAB ONCE A WEEK ALENDRONATE SODIUM 75677578207 No Longer Active Mariaa Yokum STRUCTURAL IRONWORKER Active FLONASE ALLERGY RELIEF 50 MCG/ACT NASAL SUSP One spray each nostril daily for allergies FLUTICASONE PROPIONATE 92284635796 Active Mariaa Whitman APRN Active CETIRIZINE HCL 10 MG ORAL TABS 1 po qd PRN Allergies CETIRIZINE HCL 96098964631 Active Mariaadomenico Whitman APRN Active BACTRIM DS 800-160 MG TABS 1 pill by mouth twice daily, for UTI SULFAMETHOXAZOLE-TRIMETHOPRIM 67894521271 No Longer Active Ana Cristina Vallejo MD PhD Active HYDROCHLOROTHIAZIDE 12.5 MG CAPS 1 pill by mouth daily, for blood pressure HYDROCHLOROTHIAZIDE 85607240951 Active Mariaa Whitman APRN Active CARVEDILOL 25 MG TABS 1 pill by mouth twice daily for blood pressure CARVEDILOL 18650573020 Active Mariaa Whitman APRN Active SYNTHROID 0.088 MG TAB 1 tablet by mouth daily for thyroid LEVOTHYROXINE SODIUM 85192818726 Active HEDY Esquivel Active AMOXICILLIN 500 MG CAP 1 tab by mouth 3 times daily AMOXICILLIN 72938938227 No Longer Active Alden Kim MD Active [facility] VITAMIN D3 1000 UNIT CAPS TAKE 2 CAP DAILY CHOLECALCIFEROL Active Ana Cristina Valljeo MD PhD Active CALCIUM 500 MG TABS TAKE 3 TABS DAILY CALCIUM 48112227752 No Longer Active Mariaa Whitman APRN Active MULTIVITAMINS TABS TAKE 1 TAB DAILY MULTIPLE VITAMIN Active Aneta Tavarezum ASSISTANT FEDERAL PUBLIC DEFENDER Active BENADRYL ALLERGY 25 MG TABS NEEDED DIPHENHYDRAMINE HCL 96167386112 Active Aneta Tavarezum ASSISTANT FEDERAL PUBLIC DEFENDER Active TYLENOL 325 MG TABS NEEDED ACETAMINOPHEN 45405710776 Active Aneta Singh Leo ASSISTANT FEDERAL PUBLIC DEFENDER Active ADVIL 200 MG TABS TAKE NEEDED IBUPROFEN 82626892941 Active Aneta Tavarezum ASSISTANT FEDERAL PUBLIC DEFENDER Active GLUCOSAMINE-CHONDROITIN 500-400 MG TABS TAKE 1 TAB DAILY GLUCOSAMINE-CHONDROITIN 67380889966 Active Mariaa Whitman APRN Active NORVASC 10 MG TABS TAKE 1 TAB DAILY AMLODIPINE BESYLATE 36274415514 Active Mariaa Whitman APRN Active BENAZEPRIL HCL 40 MG TABS 1 PO BID BENAZEPRIL HCL 27642988872 Active HEDY Esquivel Active LOVASTATIN 20 MG TABS 1 PO Q HS FOR CHOLESTEROL LOVASTATIN 24361108228 Active HEDY Esquivel Active RANITIDINE HCL 150 MG CAPS 1 PO Q 12 HRS RANITIDINE HCL 89753924098 Active Mariaa Whitman APRN Active ALENDRONATE SODIUM 70 MG TABS TAKE 1 TAB ONCE A WEEK ALENDRONATE SODIUM 70 MG TABS 778725 ALENDRONATE SODIUM Inactive ADULT ASPIRIN EC LOW STRENGTH 81 MG TBEC TAKE 1 TAB DAILY ADULT ASPIRIN EC LOW STRENGTH 81 MG TBEC 447230 ASPIRIN Inactive ALPRAZOLAM 0.25 MG TAB 1/2-1 tablet by mouth twice a day as needed for stress ALPRAZOLAM 0.25 MG TAB 103053 ALPRAZOLAM Inactive COLACE 100 MG CAP 1 po BID PRN Constipation COLACE 100 MG CAP 5665626 DOCUSATE SODIUM Inactive AMOXICILLIN 500 MG CAP 1 tab by mouth 3 times daily AMOXICILLIN 500 MG CAP 724017 AMOXICILLIN Inactive BACTRIM DS 800-160 MG TABS 1 pill by mouth twice daily, for UTI BACTRIM DS 800-160 MG TABS 323831 SULFAMETHOXAZOLE-TRIMETHOPRIM Inactive Advance Directives Directive Description Start [...] Panel - Chemistry sodium, serum 130 mmol/L 045-470 3572/10/19 potassium, serum 3.5 mmol/L 3.5-5.2 chloride, serum 92 mmol/L 98-107 carbon dioxide, venous blood 33.6 mmol/L 21.0-32.0 blood glucose 118 mg/dL 65-110 calcium, serum 8.8 mg/dL 8.5-10.1 urea nitrogen, blood 11 mg/dL 7-18 creatinine, serum 1.12 mg/dL 0.55-1.30 Lab Report: CBC-QUEST, COMPREHENSIVE METABOLIC PANEL, LIPID PANEL, Micro ... - Chemistry cholesterol, serum 162 mg/dL 679-169 0850/05/01 HDL cholesterol, serum 68 mg/dL > OR=46 [...] % 11.0-15.0 platelet count 297 THOUSAND/UL 10*3/mm3 405-078 7939/05/01 mean platelet volume 8.9 fL 7.5-12.5 [...] Colorless;Lightyellow;Straw;Yellow Encounters Code Encounter Date Provider Facility CPT-17053 Level 4 Est. Patient 14:40:54 CDT Bee Rosas [facility] CPT-09366 Level 4 Est. Patient 10:31:15 CDT Jalil Hayes MD [facility]-39987 Level 4 Est. Patient 15:07:54 CDT Mariaa Whitman [facility]-60582 Level 3 Est. Patient 20:45:54 DEPUTY PROBATION OFFICER Mariaa Whitman [facility]-17470 Level 3 Est. Patient 12:16:16 CDT Ana Cristina Vallejo MD PhD [facility]-88855 Level 4 Est. Patient 12:49:21 CDT Ana Cristina Vallejo MD [facility]-97535 Level 4 Est. Patient 23:02:25 CDT Ana Cristina Vallejo MD [facility]-55221 Level 4 Est. Patient 19:26:33 DEPUTY PROBATION OFFICER Ana Cristina Vallejo MD PhD [facility] CPT-39623 Level 4 Est. Patient 11:28:14 CDT Ana Cristina Vallejo MD PhD [facility] CPT-12259 Level 4 Est. Patient 15:35:46 DEPUTY PROBATION OFFICER Ana Cristina Vallejo MD PhD [facility] CPT-70447 Level 3 Est. Patient 21:06:39 DEPUTY PROBATION OFFICER Alden Kim MD [facility] CPT-12489 Level 4 Est. Patient 15:30:54 DEPUTY PROBATION OFFICER Ana Cristina Vallejo MD PhD [facility] Procedures Code Procedure Name Date Entry Date Standard Description CPT-18267 EKG Trac and Interp - XRAY USE ONLY 10:35:11 CDT 09/11 CPT-21740 Chest 2V Frontal and Lat - XRAY USE ONLY 10:35:11 CDT CPT-G0438 Initial Annual Wellness Exam 14:54:07 CDT CPT-G0009 Administration of Pneumococcal Vaccine 14:44:24 CDT CPT-59348 Pneumovax 23 Injection Injectable 25 MCG/0.5ML 14:44:24 CDT CPT-41172 First Vx - Ix admin for Medicare patients 14:44:24 CDT CPT-82692 Fluzone High-Dose Intramuscular Suspension 14:44:20 CDT CPT-66292 BMP - LAB USE ONLY 12:38:06 CDT CPT-28494 Urine Culture - LAB USE ONLY 16:56:33 CDT CPT-TCMM Transitional Care Mgmt-Moderate 18:08:16 CDT CPT-67566 Bone Density 09:14:12 CDT CPT-000 Give Appropriate Flu Vaccine 14:51:52 CDT CPT-69479 Fluzone High Dose (>=65 yrs.) 15:19:23 CDT CPT-13323 Immunization Single Admin 15:19:23 CDT CPT-79317 Prevnar 13 15:40:03 CDT CPT-18865 Administration single or combination vaccine inc oral 15 :40:03 CDT CPT-16018 Prevnar 13:55:07 CDT CPT-G0008 Administration of Influenza Virus Vaccine 10:49:51 CDT CPT-85744 Fluzone High-Dose Intramuscular Suspension 10:49:51 CDT CPT-32887 Knee 3V 13:31:37 CDT CPT-08803 Bone Density 09:07:05 DEPUTY PROBATION OFFICER CPT-00577 Nail Avulsion 09:46:05 CDT CPT-21741 Administration single or combination vaccine inc oral 16 :11:54 CDT CPT-78296 Influenza High Dose age 65+ 16:11:54 CDT CPT-83139 Administration single or combination vaccine inc oral 10 :53:15 CDT CPT-35683 Influenza High Dose age 65+ 10:53:15 CDT CPT-14117 Bone Density 14:50:58 DEPUTY PROBATION OFFICER CPT-65640 Administration single or combination vaccine inc oral 15 :41:20 DEPUTY PROBATION OFFICER CPT-99050 Zoster Vaccine (Zostavax) 15:41:20 DEPUTY PROBATION OFFICER CPT-02250 Spec Collection and Handling Fee 11:18:25 DEPUTY PROBATION OFFICER CPT-29108 Administration single or combination vaccine inc oral 11 :14:20 CDT CPT-49835 Influenza High Dose age 65+ 11:14:20 CDT
--- OUTSIDE RECORDS SUMMARY | 2017-07-18 08:29 | XMS REPORT | Clinical Summary ---
Author Author Admin, DANDRE Organization [facility] [employer] Address Unknown Phone Unavailable Allergies, Adverse Reactions, Alerts Allergy Name Reaction Description Start Date Severity Status Provider NKDA Critical Active Mariaa Whitman MARKETING DATABASE ANALYST Conditions or Problems Problem Name Problem [...] 1 po BID PRN Constipation DOCUSATE SODIUM 02288003907 No Longer Active Deepti Madl PAYROLL PROCESSOR Active ALPRAZOLAM 0.25 MG TAB 1/2-1 tablet by mouth twice a day as needed for stress ALPRAZOLAM 51954776828 No Longer Active Deepti Madl PAYROLL PROCESSOR Active MIRALAX ORAL PACK Takes daily prn POLYETHYLENE GLYCOL 3350 29478111398 Active Mariaa Yokum MARKETING DATABASE ANALYST Active ALENDRONATE SODIUM 70 MG TABS 1 pill by mouth weekly for osteoporosis ALENDRONATE SODIUM 96689568760 Active Brianda Reis [facility] Active E-1000 1000 UNIT ORAL CAPS Take one by mouth daily VITAMIN E 74315579774 Active Brianda Reis [facility] Active OSCAL 500/200 D-3 500-200 MG-UNIT ORAL TABS Take one by mouth 3 times daily, morning, afternoon and evening.] CALCIUM CARBONATE-VITAMIN D 12160194898 Active Brianda Reis [facility] Active ASPIRIN 81 MG CHEW TAB 1 tablet by mouth daily ASPIRIN 02370023131 Active Brianda Reis [facility] Active ADULT ASPIRIN EC LOW STRENGTH 81 MG TBEC TAKE 1 TAB DAILY ASPIRIN 60025831598 No Longer Active Mariaa Yokum MARKETING DATABASE ANALYST Active ALENDRONATE SODIUM 70 MG TABS TAKE 1 TAB ONCE A WEEK ALENDRONATE SODIUM 12435175406 No Longer Active Mariaa Yokum MARKETING DATABASE ANALYST Active FLONASE ALLERGY RELIEF 50 MCG/ACT NASAL SUSP One spray each nostril daily for allergies FLUTICASONE PROPIONATE 66278966209 Active Mariaa Whitman APRN Active CETIRIZINE HCL 10 MG ORAL TABS 1 po qd PRN Allergies CETIRIZINE HCL 80676753771 Active Mariaa Whitman APRN Active BACTRIM DS 800-160 MG TABS 1 pill by mouth twice daily, for UTI SULFAMETHOXAZOLE-TRIMETHOPRIM 51804308768 No Longer Active Ana Cristina Vallejo MD PhD Active HYDROCHLOROTHIAZIDE 12.5 MG CAPS 1 pill by mouth daily, for blood pressure HYDROCHLOROTHIAZIDE 10295630255 Active Mariaa Whitman APRN Active CARVEDILOL 25 MG TABS 1 pill by mouth twice daily for blood pressure CARVEDILOL 47853906368 Active Mariaa Whitman APRN Active SYNTHROID 0.088 MG TAB 1 tablet by mouth daily for thyroid LEVOTHYROXINE SODIUM 50009316165 Active HEDY Esquivel Active AMOXICILLIN 500 MG CAP 1 tab by mouth 3 times daily AMOXICILLIN 99122120615 No Longer Active Alden Kim MD Active [facility] VITAMIN D3 1000 UNIT CAPS TAKE 2 CAP DAILY CHOLECALCIFEROL Active Ana Cristina aVllejo MD PhD Active CALCIUM 500 MG TABS TAKE 3 TABS DAILY CALCIUM 69396608378 No Longer Active Mariaa Whitman APRN Active MULTIVITAMINS TABS TAKE 1 TAB DAILY MULTIPLE VITAMIN Active Aneta Tavarezum PAYROLL PROCESSOR Active BENADRYL ALLERGY 25 MG TABS NEEDED DIPHENHYDRAMINE HCL 57288907916 Active Aneta Singh Leo PAYROLL PROCESSOR Active TYLENOL 325 MG TABS NEEDED ACETAMINOPHEN 69584400516 Active Aneta Singh Leo PAYROLL PROCESSOR Active ADVIL 200 MG TABS TAKE NEEDED IBUPROFEN 73958773066 Active Aneta Singh Leo PAYROLL PROCESSOR Active GLUCOSAMINE-CHONDROITIN 500-400 MG TABS TAKE 1 TAB DAILY GLUCOSAMINE-CHONDROITIN 49265959954 Active Mariaa Whitman APRN Active NORVASC 10 MG TABS TAKE 1 TAB DAILY AMLODIPINE BESYLATE 31346380771 Active Mariaa Whitman APRN Active BENAZEPRIL HCL 40 MG TABS 1 PO BID BENAZEPRIL HCL 55228643256 Active HEDY Esquivel Active LOVASTATIN 20 MG TABS 1 PO Q HS FOR CHOLESTEROL LOVASTATIN 64492002531 Active Risa Kvng RMA Active RANITIDINE HCL 150 MG CAPS 1 PO Q 12 HRS RANITIDINE HCL 64026708226 Active Mariaa Whitman APRN Active ALENDRONATE SODIUM 70 MG TABS TAKE 1 TAB ONCE A WEEK ALENDRONATE SODIUM 70 MG TABS 195326 ALENDRONATE SODIUM Inactive ADULT ASPIRIN EC LOW STRENGTH 81 MG TBEC TAKE 1 TAB DAILY ADULT ASPIRIN EC LOW STRENGTH 81 MG TBEC 324182 ASPIRIN Inactive ALPRAZOLAM 0.25 MG TAB 1/2-1 tablet by mouth twice a day as needed for stress ALPRAZOLAM 0.25 MG TAB 679404 ALPRAZOLAM Inactive COLACE 100 MG CAP 1 po BID PRN Constipation COLACE 100 MG CAP 0784899 DOCUSATE SODIUM Inactive AMOXICILLIN 500 MG CAP 1 tab by mouth 3 times daily AMOXICILLIN 500 MG CAP 392893 AMOXICILLIN Inactive BACTRIM DS 800-160 MG TABS 1 pill by mouth twice daily, for UTI BACTRIM DS 800-160 MG TABS 676607 SULFAMETHOXAZOLE-TRIMETHOPRIM Inactive Advance Directives Directive Description Start [...] Panel - Chemistry sodium, serum 130 mmol/L 223-432 5890/10/19 potassium, serum 3.5 mmol/L 3.5-5.2 chloride, serum 92 mmol/L 98-107 carbon dioxide, venous blood 33.6 mmol/L 21.0-32.0 blood glucose 118 mg/dL 65-110 calcium, serum 8.8 mg/dL 8.5-10.1 urea nitrogen, blood 11 mg/dL 7-18 creatinine, serum 1.12 mg/dL 0.55-1.30 Lab Report: CBC-QUEST, COMPREHENSIVE METABOLIC PANEL, LIPID PANEL, Micro ... - Chemistry cholesterol, serum 162 mg/dL 643-370 1172/05/01 HDL cholesterol, serum 68 mg/dL > OR=46 [...] % 11.0-15.0 platelet count 297 THOUSAND/UL 10*3/mm3 600-082 7597/05/01 mean platelet volume 8.9 fL 7.5-12.5 Lab [...] Negative Encounters Code Encounter Date Provider Facility CPT-24180 Level 4 Est. Patient 14:40:54 CDT Bee Rosas [facility] CPT-22895 Level 4 Est. Patient 10:31:15 CDT Jalil Hayes MD [facility]-12268 Level 4 Est. Patient 15:07:54 CDT Mariaa Whitman [facility]-26213 Level 3 Est. Patient 20:45:54 STRIP MINE SUPERVISOR Mariaa Whitman [facility] CPT-31693 Level 3 Est. Patient 12:16:16 CDT Ana Cristina Vallejo MD PhD [facility] CPT-58434 Level 4 Est. Patient 12:49:21 CDT Ana Cristina Vallejo MD [facility]-09765 Level 4 Est. Patient 23:02:25 CDT Ana Cristina Vallejo MD PhD [facility] CPT-87470 Level 4 Est. Patient 19:26:33 STRIP MINE SUPERVISOR Ana Cristina Vallejo MD PhD [facility] CPT-15533 Level 4 Est. Patient 11:28:14 CDT Ana Cristina Vallejo MD PhD [facility] CPT-65438 Level 4 Est. Patient 15:35:46 STRIP MINE SUPERVISOR Ana Cristina Vallejo MD PhD [facility] CPT-87910 Level 3 Est. Patient 21:06:39 STRIP MINE SUPERVISOR Alden Kim MD [facility] CPT-83640 Level 4 Est. Patient 15:30:54 STRIP MINE SUPERVISOR Ana Cristina Vallejo MD PhD [facility] Procedures Code Procedure Name Date Entry Date Standard Description CPT-25777 EKG Trac and Interp - XRAY USE ONLY 10:35:11 CDT 09/11 CPT-03212 Chest 2V Frontal and Lat - XRAY USE ONLY 10:35:11 CDT CPT-G0438 Initial Annual Wellness Exam 14:54:07 CDT CPT-G0009 Administration of Pneumococcal Vaccine 14:44:24 CDT CPT-11234 Pneumovax 23 Injection Injectable 25 MCG/0.5ML 14:44:24 CDT CPT-75888 First Vx - Ix admin for Medicare patients 14:44:24 CDT CPT-75583 Fluzone High-Dose Intramuscular Suspension 14:44:20 CDT CPT-28521 BMP - LAB USE ONLY 12:38:06 CDT CPT-47225 Urine Culture - LAB USE ONLY 16:56:33 CDT CPT-TCMM Transitional Care Mgmt-Moderate 18:08:16 CDT CPT-07460 Bone Density 09:14:12 CDT CPT-000 Give Appropriate Flu Vaccine 14:51:52 CDT CPT-88545 Fluzone High Dose (>=65 yrs.) 15:19:23 CDT CPT-37193 Immunization Single Admin 15:19:23 CDT CPT-45424 Prevnar 13 15:40:03 CDT CPT-81048 Administration single or combination vaccine inc oral 15 :40:03 CDT CPT-65031 Prevnar 13:55:07 CDT CPT-G0008 Administration of Influenza Virus Vaccine 10:49:51 CDT CPT-32848 Fluzone High-Dose Intramuscular Suspension 10:49:51 CDT CPT-36716 Knee 3V 13:31:37 CDT CPT-88557 Bone Density 09:07:05 STRIP MINE SUPERVISOR CPT-30462 Nail Avulsion 09:46:05 CDT CPT-51941 Administration single or combination vaccine inc oral 16 :11:54 CDT CPT-90918 Influenza High Dose age 65+ 16:11:54 CDT CPT-34281 Administration single or combination vaccine inc oral 10 :53:15 CDT CPT-06392 Influenza High Dose age 65+ 10:53:15 CDT CPT-02797 Bone Density 14:50:58 STRIP MINE SUPERVISOR CPT-47243 Administration single or combination vaccine inc oral 15 :41:20 STRIP MINE SUPERVISOR CPT-88463 Zoster Vaccine (Zostavax) 15:41:20 STRIP MINE SUPERVISOR CPT-41360 Spec Collection and Handling Fee 11:18:25 STRIP MINE SUPERVISOR CPT-84640 Administration single or combination vaccine inc oral 11 :14:20 CDT CPT-18541 Influenza High Dose age 65+ 11:14:20 CDT
[2017-07-18 08:30] VITALS: BP 159/67
[2017-07-18] MEDS ORDERED: CEFUROXIME INJECTION 1,500 MG in NS (IVPB) 50 ML IV ONE (08:30)
--- OUTSIDE RECORDS SUMMARY | 2017-07-18 08:30 | XMS REPORT | Clinical Summary ---
Author Author Admin, DANDRE Organization [facility] [employer] Address Unknown Phone Unavailable Allergies, Adverse Reactions, Alerts Allergy Name Reaction Description Start Date Severity Status Provider NKDA Critical Active Mariaa Whitman RN TELEMETRY Conditions or Problems Problem Name Problem Code Onset Date Status Entry Date Provider Comment Standard Description Annotate ROUTINE GYNECOLOGICAL EXAMINATION V72.31 Resolved Ana Cristina Vallejo MD PhD Routine gynecological examination MENOPAUSE 627.2 Ruled out Ana Cristina Vallejo MD PhD Symptomatic menopausal or female climacteric states MENOPAUSE 627.[address] [facility] Symptomatic menopausal or female climacteric states [...] 1 daily, for vitamin D deficiency CHOLECALCIFEROL 33776233802 No Longer Active Radha Jones APRN Active CIPRO 250 MG ORAL TABLET 1 tab BID for 7 days CIPROFLOXACIN HCL 03122519715 No Longer Active Radha Jones APRN Active VITAMIN D3 2000 UNIT ORAL CAPSULE 1 capsule po daily CHOLECALCIFEROL 85103888735 Active HEDY Esquivel Active EQL ONE DAILY WOMENS ORAL TABLET 1 po daily MULTIPLE VITAMINS- CALCIUM 43692781572 Active HEDY Esquivel Active MACROBID 100 MG ORAL CAPSULE 1 tab BID for 5 days NITROFURANTOIN MONOHYD MACRO 50843745137 No Longer Active Deepti Junior LPN Active HYDROCHLOROTHIAZIDE 12.5 MG ORAL CAPSULE 1 pill by mouth daily HYDROCHLOROTHIAZIDE 30830840967 Active Jalil Hayes MD Active RANITIDINE HCL 150 MG ORAL CAPSULE once nightly RANITIDINE HCL 60810741068 Active Jalil Hayes MD Active BENAZEPRIL HCL 40 MG ORAL TABLET 1 daily for blood pressure BENAZEPRIL HCL 68676745877 Active Jalil Hayes MD Active HYDROCHLOROTHIAZIDE 12.5 MG ORAL CAPSULE 1 pill by mouth daily, for blood pressure HYDROCHLOROTHIAZIDE 18589118379 No Longer Active Jalil Hayes MD Active AUGMENTIN 875-125 MG ORAL TABLET 1 po BID x 7 days AMOXICILLIN-POT CLAVULANATE 14886768185 No Longer Active Jalil Hayes MD Active OMEPRAZOLE 40 MG ORAL CAPSULE DELAYED RELEASE 1 po q a.m. OMEPRAZOLE 17990291899 Active HEDY Esquivel Active MIRALAX ORAL PACKET Takes daily prn POLYETHYLENE GLYCOL 3350 45847778380 No Longer Active Peggy Pardo LPN Active FLONASE ALLERGY RELIEF 50 MCG/ACT NASAL SUSPENSION One spray each nostril daily for allergies FLUTICASONE PROPIONATE 39234184616 No Longer Active Peggy Pardo LPN Active BENADRYL ALLERGY 25 MG ORAL TABLET NEEDED DIPHENHYDRAMINE HCL 79403104799 No Longer Active Peggy Pardo LPN Active ADVIL 200 MG ORAL TABLET TAKE NEEDED IBUPROFEN 71938017207 No Longer Active Peggy Pardo LPN Active COLACE 100 MG ORAL CAPSULE 1 po BID PRN Constipation DOCUSATE SODIUM 70588951026 No Longer Active Deepti Junior LPN Active ALPRAZOLAM 0.25 MG ORAL TABLET 1/2-1 tablet by mouth twice a day as needed for stress ALPRAZOLAM 37797872182 No Longer Active Deepti Hamlinjaja HORVATH Active ALENDRONATE SODIUM 70 MG ORAL TABLET 1 pill by mouth weekly for osteoporosis ALENDRONATE SODIUM 47167984660 Active Mariaa Laudee LUGO Active E-1000 1000 UNIT ORAL CAPSULE Take one by mouth daily VITAMIN E 18088548999 Active HEDY Esquivel Active OSCAL 500/200 D-3 500-200 MG-UNIT ORAL TABLET Take one by mouth 3 times daily , morning, afternoon and evening.] CALCIUM CARBONATE-VITAMIN D 45703128298 Active HEDY Esquivel Active ASPIRIN 81 MG ORAL TABLET CHEWABLE 1 tablet by mouth daily ASPIRIN 29270044033 Active HEDY Esquivel Active ADULT ASPIRIN EC LOW STRENGTH 81 MG ORAL TABLET DELAYED RELEASE TAKE 1 TAB DAILY ASPIRIN 76369894593 No Longer Active Mariaa Laudee LUGO Active ALENDRONATE SODIUM 70 MG ORAL TABLET TAKE 1 TAB ONCE A WEEK 01/20 ALENDRONATE SODIUM 83166105237 No Longer Active Mariaa Atkinsonbeckie LUGO Active CETIRIZINE HCL 10 MG ORAL TABLET 1 po qd PRN Allergies CETIRIZINE HCL 23394248669 Active HEDY Esquivel Active BACTRIM DS 800-160 MG ORAL TABLET 1 pill by mouth twice daily, for UTI 01/29 SULFAMETHOXAZOLE-TRIMETHOPRIM 64975065589 No Longer Active Ana Cristina Vallejo MD PhD Active CARVEDILOL 25 MG ORAL TABLET 1 pill by mouth twice daily for blood pressure CARVEDILOL 36974660959 Active Aneta Bailey LPN Active SYNTHROID 88 MCG ORAL TABLET 1 tablet by mouth daily for thyroid LEVOTHYROXINE SODIUM 32595277579 Active HEDY Esquivel Active AMOXICILLIN 500 MG ORAL CAPSULE 1 tab by mouth 3 times daily 2011 AMOXICILLIN 17820869961 No Longer Active Alden Kim MD Active CALCIUM 500 MG ORAL TABLET TAKE 3 TABS DAILY CALCIUM 69683872250 No Longer Active Mariaa Whitman RN TELEMETRY Active MULTIVITAMINS TABS TAKE 1 TAB DAILY MULTIPLE VITAMIN No Longer Active Anetajeannie Tavarezum MILK PICKUP DRIVER Active TYLENOL 325 MG ORAL TABLET NEEDED ACETAMINOPHEN 07494802037 Active Aneta Tavarezum MILK PICKUP DRIVER Active GLUCOSAMINE-CHONDROITIN 500-400 MG ORAL TABLET TAKE 1 TAB DAILY GLUCOSAMINE-CHONDROITIN 89338660129 Active Aneta aTvarezum MILK PICKUP DRIVER Active NORVASC 10 MG ORAL TABLET TAKE 1 TAB DAILY AMLODIPINE BESYLATE 63178971641 Active Aneta Tavarezum MILK PICKUP DRIVER Active LOVASTATIN 20 MG ORAL TABLET 1 PO Q HS FOR CHOLESTEROL LOVASTATIN 01751603972 Active HEDY Esquivel Active ALENDRONATE SODIUM 70 MG ORAL TABLET TAKE 1 TAB ONCE A WEEK 01/20 ALENDRONATE SODIUM 70 MG ORAL TABLET 383196 ALENDRONATE SODIUM Inactive ADULT ASPIRIN EC LOW STRENGTH 81 MG ORAL TABLET DELAYED RELEASE TAKE 1 TAB DAILY ADULT ASPIRIN EC LOW STRENGTH 81 MG ORAL TABLET DELAYED RELEASE 192978 ASPIRIN Inactive ALPRAZOLAM 0.25 MG ORAL TABLET 1/2-1 tablet by mouth twice a day as needed for stress ALPRAZOLAM 0.25 MG ORAL TABLET 735358 ALPRAZOLAM Inactive COLACE 100 MG ORAL CAPSULE 1 po BID PRN Constipation COLACE 100 MG ORAL CAPSULE 6915900 DOCUSATE SODIUM Inactive ADVIL 200 MG ORAL TABLET TAKE NEEDED ADVIL 200 MG ORAL TABLET 848389 IBUPROFEN Inactive BENADRYL ALLERGY 25 MG ORAL TABLET NEEDED BENADRYL ALLERGY 25 MG ORAL TABLET 3494732 DIPHENHYDRAMINE HCL Inactive FLONASE ALLERGY RELIEF 50 MCG/ACT NASAL SUSPENSION One spray each nostril daily for allergies FLONASE ALLERGY RELIEF 50 MCG/ACT NASAL SUSPENSION 7424842 FLUTICASONE PROPIONATE Inactive MIRALAX ORAL PACKET Takes daily prn MIRALAX ORAL PACKET 252973 POLYETHYLENE GLYCOL 3350 Inactive AUGMENTIN 875-125 MG ORAL TABLET 1 po BID x 7 days AUGMENTIN 875-125 MG ORAL TABLET 725750 AMOXICILLIN-POT CLAVULANATE Inactive HYDROCHLOROTHIAZIDE 12.5 MG ORAL CAPSULE 1 pill by mouth daily, for blood pressure HYDROCHLOROTHIAZIDE 12.5 MG ORAL CAPSULE HYDROCHLOROTHIAZIDE Inactive CIPRO 250 MG ORAL TABLET 1 tab BID for 7 days CIPRO 250 MG ORAL TABLET 408751 CIPROFLOXACIN HCL Inactive VITAMIN D3 2000 UNIT ORAL TABLET 1 daily, for vitamin D deficiency VITAMIN D3 2000 UNIT ORAL TABLET CHOLECALCIFEROL Inactive AMOXICILLIN 500 MG ORAL CAPSULE 1 tab by mouth 3 times daily 2011 AMOXICILLIN 500 MG ORAL CAPSULE 688954 AMOXICILLIN Inactive BACTRIM DS 800-160 MG ORAL TABLET 1 pill by mouth twice daily, for UTI 01/29 BACTRIM DS 800-160 MG ORAL TABLET 096149 SULFAMETHOXAZOLE- TRIMETHOPRIM Inactive MACROBID 100 MG ORAL CAPSULE 1 tab BID for 5 days MACROBID 100 MG ORAL CAPSULE 7124887 NITROFURANTOIN MONOHYD MACRO Inactive Advance Directives Directive [...] Panel - Chemistry sodium, serum 132 mmol/L 172-658 5670/08/09 potassium, serum 4.2 mmol/L 3.5-5.2 chloride, serum 99 mmol/L 98-107 carbon dioxide, venous blood 24.7 mmol/L 21.0-32.0 blood glucose 119 mg/dL 65-110 calcium, serum 8.5 mg/dL 8.5-10.1 urea nitrogen, blood 14 mg/dL 7-18 creatinine, serum 1.16 mg/dL 0.60-1.30 Lab Report: CBC-QUEST, COMPREHENSIVE METABOLIC PANEL, LIPID PANEL, Micro ... - Chemistry cholesterol, serum 162 mg/dL 206-526 9673/05/01 HDL cholesterol, serum 68 mg/dL > OR=46 [...] % 11.0-15.0 platelet count 297 THOUSAND/UL 10*3/mm3 340-188 7418/05/01 mean platelet volume 8.9 fL 7.5-12.5 Lab [...] 5.0-8.5 Encounters Code Encounter Date Provider Facility [facility]-[id number] Level 3 Est. Patient 13:55:49 CDT Jalil Hayes MD [facility]-06134 Level 3 Est. Patient 14:38:15 CDT Jalil Hayes MD [facility]17840 Level 4 Est. Patient 14:40:54 CDT Bee Rosas [facility]-64646 Level 4 Est. Patient 10:31:15 CDT Jalil Hayes MD [facility]-40501 Level 4 Est. Patient 15:07:54 CDT Mariaa Whitman [facility]-02720 Level 3 Est. Patient 20:45:54 CUTTER AND PRESSER Mariaa Whitman [facility] CPT-19605 Level 3 Est. Patient 12:16:16 CDT Ana Cristina Vallejo MD [facility] [place][note 2]-54673 Level 4 Est. Patient 12:49:21 CDT Ana Cristina Vallejo MD [facility]26536 Level 4 Est. Patient 23:02:25 CDT Ana Cirstina Vallejo MD [facility]02856 Level 4 Est. Patient 19:26:33 CUTTER AND PRESSER Ana Cristina Vallejo MD PhD [facility] CPT-20744 Level 4 Est. Patient 11:28:14 CDT Ana Cristina Vallejo MD PhD [facility] CPT-25504 Level 4 Est. Patient 15:35:46 CUTTER AND PRESSER Ana Cristina Vallejo MD PhD [facility] CPT-99565 Level 3 Est. Patient 21:06:39 CUTTER AND PRESSER Alden Kim MD [facility] CPT-19692 Level 4 Est. Patient 15:30:54 CUTTER AND PRESSER Ana Cristina Vallejo MD PhD [facility] Procedures Code Procedure Name Date Entry Date Standard Description CPT-G0439 Subsequent Annual Wellness Exam 11:53:01 CUTTER AND PRESSER CPT-48183 First Vx - Ix admin for Medicare patients 13:35:01 CDT CPT-85437 Fluzone High-Dose Intramuscular Suspension 13:35:01 CDT CPT-TCMM Transitional Care Mgmt-Moderate 14:41:55 CDT CPT-33685 EKG Trac and Interp - XRAY USE ONLY 10:35:11 CDT 09/11 CPT-39974 Chest 2V Frontal and Lat - XRAY USE ONLY 10:35:11 CDT CPT-G0438 Initial Annual Wellness Exam 14:54:07 CDT CPT-G0009 Administration of Pneumococcal Vaccine 14:44:24 CDT CPT-56017 Pneumovax 23 Injection Injectable 25 MCG/0.5ML 14:44:24 CDT CPT-73908 First Vx - Ix admin for Medicare patients 14:44:24 CDT CPT-93410 Fluzone High-Dose Intramuscular Suspension 14:44:20 CDT CPT-99555 BMP - LAB USE ONLY 12:38:06 CDT CPT-65145 Urine Culture - LAB USE ONLY 16:56:33 CDT CPT-TCMM Transitional Care Mgmt-Moderate 18:08:16 CDT CPT-91292 Bone Density 09:14:12 CDT CPT-000 Give Appropriate Flu Vaccine 14:51:52 CDT CPT-09285 Fluzone High Dose (>=65 yrs.) 15:19:23 CDT CPT-81288 Immunization Single Admin 15:19:23 CDT CPT-72637 Prevnar 13 15:40:03 CDT CPT-16151 Administration single or combination vaccine inc oral 15 :40:03 CDT CPT-00011 Prevnar 13 13:55:07 CDT CPT-G0008 Administration of Influenza Virus Vaccine 10:49:51 CDT CPT-23147 Fluzone High-Dose Intramuscular Suspension 10:49:51 CDT CPT-86549 Knee 3V 13:31:37 CDT CPT-72259 Bone Density 09:07:05 [employer]TER [employer] PRESSER CPT-48625 Nail Avulsion 09:46:05 CDT CPT-25796 Administration single or combination vaccine inc oral 16 :11:54 CDT CPT-17413 Influenza High Dose age 65+ 16:11:54 CDT CPT-78203 Administration single or combination vaccine inc oral 10 :53:15 CDT CPT-27805 Influenza High Dose age 65+ 10:53:15 CDT CPT-35402 Bone Density 14:50:58 [employer]TER [employer] PR[employer]ER CPT-54621 Administration single or combination vaccine inc oral 15 :41:20 [employer]TER [employer] PRESSER CPT-46549 Zoster Vaccine (Zostavax) 15:41:20 C[employer]TER [employer] PRESSER CPT-50080 Spec Collection and Handling Fee 11:18:25 CUTTER AND PRESSER CPT-81696 Administration single or combination vaccine inc oral 11 :14:20 CDT CPT-23196 Influenza High Dose age 65+ 11:14:20 CDT
--- OUTSIDE RECORDS SUMMARY | 2017-07-18 08:31 | XMS REPORT | Clinical Summary ---
Author Author Admin, DANDRE Organization [facility] [employer] Address Unknown Phone Unavailable Allergies, Adverse Reactions, Alerts Allergy Name Reaction Description Start Date Severity Status Provider NKDA Critical Active Mariaa Whitman RULING MACHINE OPERATOR Conditions or Problems Problem Name Problem Code Onset Date Status Entry Date Provider Comment Standard Description Annotate ROUTINE GYNECOLOGICAL EXAMINATION V72.31 Resolved Ana Cristina Vallejo MD PhD Routine gynecological examination MENOPAUSE 627.2 Ruled out Ana Cristina Vallejo MD PhD Symptomatic menopausal or female climacteric states MENOPAUSE 627.2 Active Brinada Reis [facility] Symptomatic menopausal or female climacteric states [...] MD Dysuria Forgetfulness 780.99 Active Radha Jones RULING MACHINE OPERATOR Other general symptoms Unsteady gait 781.2 Active [...] 1 daily, for vitamin D deficiency CHOLECALCIFEROL 38187379269 No Longer Active Radha Jones APRN Active CIPRO 250 MG ORAL TABLET 1 tab BID for 7 days CIPROFLOXACIN HCL 59720414458 No Longer Active Radha Jones APRN Active VITAMIN D3 2000 UNIT ORAL CAPSULE 1 capsule po daily CHOLECALCIFEROL 35193586413 Active Aneta Tavarezum REEL CUTTER Active EQL ONE DAILY WOMENS ORAL TABLET 1 po daily MULTIPLE VITAMINS- CALCIUM 56509244583 Active Aneta D Leo REEL CUTTER Active MACROBID 100 MG ORAL CAPSULE 1 tab BID for 5 days NITROFURANTOIN MONOHYD MACRO 76347497420 No Longer Active Deepti Junior LPN Active HYDROCHLOROTHIAZIDE 12.5 MG ORAL CAPSULE 1 pill by mouth daily HYDROCHLOROTHIAZIDE 83460132195 Active Jalil Hayes MD Active RANITIDINE HCL 150 MG ORAL CAPSULE once nightly RANITIDINE HCL 48288089255 Active Jalil Hayes MD Active BENAZEPRIL HCL 40 MG ORAL TABLET 1 daily for blood pressure BENAZEPRIL HCL 01515582637 Active Jalil Hayes MD Active HYDROCHLOROTHIAZIDE 12.5 MG ORAL CAPSULE 1 pill by mouth daily, for blood pressure HYDROCHLOROTHIAZIDE 66616501511 No Longer Active Jalil Hayes MD Active AUGMENTIN 875-125 MG ORAL TABLET 1 po BID x 7 days AMOXICILLIN-POT CLAVULANATE 12576692447 No Longer Active Jalil Hayes MD Active OMEPRAZOLE 40 MG ORAL CAPSULE DELAYED RELEASE 1 po q a.m. OMEPRAZOLE 66269017947 Active HEDY Esquivel Active MIRALAX ORAL PACKET Takes daily prn POLYETHYLENE GLYCOL 3350 26019597429 No Longer Active Peggy Pardo LPN Active FLONASE ALLERGY RELIEF 50 MCG/ACT NASAL SUSPENSION One spray each nostril daily for allergies FLUTICASONE PROPIONATE 20293981783 No Longer Active Peggy Pardo, REEL CUTTER Active BENADRYL ALLERGY 25 MG ORAL TABLET NEEDED DIPHENHYDRAMINE HCL 00716139506 No Longer Active Peggy Pardo, REEL CUTTER Active ADVIL 200 MG ORAL TABLET TAKE NEEDED IBUPROFEN 70871098889 No Longer Active Peggy Pardo, REEL CUTTER Active COLACE 100 MG ORAL CAPSULE 1 po BID PRN Constipation DOCUSATE SODIUM 14194855697 No Longer Active Deepti Hamlinl REEL CUTTER Active ALPRAZOLAM 0.25 MG ORAL TABLET 1/2-1 tablet by mouth twice a day as needed for stress ALPRAZOLAM 20249440936 No Longer Active Deepti Junior REEL CUTTER Active ALENDRONATE SODIUM 70 MG ORAL TABLET 1 pill by mouth weekly for osteoporosis ALENDRONATE SODIUM 01405981261 Active Mariaadomenico Whitman APRN Active E-1000 1000 UNIT ORAL CAPSULE Take one by mouth daily VITAMIN E 03245063054 Active Aneta Bailey REEL CUTTER Active OSCAL 500/200 D-3 500-200 MG-UNIT ORAL TABLET Take one by mouth 3 times daily , morning, afternoon and evening.] CALCIUM CARBONATE-VITAMIN D 93576786274 Active Aneta Tavarezum REEL CUTTER Active ASPIRIN 81 MG ORAL TABLET CHEWABLE 1 tablet by mouth daily ASPIRIN 88894032142 Active Aneta Tavarezum REEL CUTTER Active ADULT ASPIRIN EC LOW STRENGTH 81 MG ORAL TABLET DELAYED RELEASE TAKE 1 TAB DAILY ASPIRIN 74667472283 No Longer Active Mariaa Antonette RULING MACHINE OPERATOR Active ALENDRONATE SODIUM 70 MG ORAL TABLET TAKE 1 TAB ONCE A WEEK 01/20 ALENDRONATE SODIUM 56382373367 No Longer Active Mariaa Lauxuanum RULING MACHINE OPERATOR Active CETIRIZINE HCL 10 MG ORAL TABLET 1 po qd PRN Allergies CETIRIZINE HCL 66645334716 Active HEDY Esquivel Active BACTRIM DS 800-160 MG ORAL TABLET 1 pill by mouth twice daily, for UTI 01/29 SULFAMETHOXAZOLE-TRIMETHOPRIM 64667291289 No Longer Active Ana Cristina Vallejo MD PhD Active CARVEDILOL 25 MG ORAL TABLET 1 pill by mouth twice daily for blood pressure CARVEDILOL 14765004783 Active Aneta Bailey LPN Active SYNTHROID 88 MCG ORAL TABLET 1 tablet by mouth daily for thyroid LEVOTHYROXINE SODIUM 23443311716 Active HEDY Esquivel Active AMOXICILLIN 500 MG ORAL CAPSULE 1 tab by mouth 3 times daily 2011 AMOXICILLIN 92508614405 No Longer Active Alden Kim MD Active CALCIUM 500 MG ORAL TABLET TAKE 3 TABS DAILY CALCIUM 06442969729 No Longer Active Mariaa Yokum PARISH Active MULTIVITAMINS TABS TAKE 1 TAB DAILY MULTIPLE VITAMIN No Longer Active Aneta Tavarezum YULIET Active TYLENOL 325 MG ORAL TABLET NEEDED ACETAMINOPHEN 80894304504 Active Aneta Tavarezum REEL CUTTER Active GLUCOSAMINE-CHONDROITIN 500-400 MG ORAL TABLET TAKE 1 TAB DAILY GLUCOSAMINE-CHONDROITIN 04148526045 Active Aneta Bailey LPN Active NORVASC 10 MG ORAL TABLET TAKE 1 TAB DAILY AMLODIPINE BESYLATE 02548645403 Active Aneta Bailey LPN Active LOVASTATIN 20 MG ORAL TABLET 1 PO Q HS FOR CHOLESTEROL LOVASTATIN 28770749720 Active HEDY Esquivel Active ALENDRONATE SODIUM 70 MG ORAL TABLET TAKE 1 TAB ONCE A WEEK 01/20 ALENDRONATE SODIUM 70 MG ORAL TABLET 536692 ALENDRONATE SODIUM Inactive ADULT ASPIRIN EC LOW STRENGTH 81 MG ORAL TABLET DELAYED RELEASE TAKE 1 TAB DAILY ADULT ASPIRIN EC LOW STRENGTH 81 MG ORAL TABLET DELAYED RELEASE 448573 ASPIRIN Inactive ALPRAZOLAM 0.25 MG ORAL TABLET 1/2-1 tablet by mouth twice a day as needed for stress ALPRAZOLAM 0.25 MG ORAL TABLET 793953 ALPRAZOLAM Inactive COLACE 100 MG ORAL CAPSULE 1 po BID PRN Constipation COLACE 100 MG ORAL CAPSULE 1286957 DOCUSATE SODIUM Inactive ADVIL 200 MG ORAL TABLET TAKE NEEDED ADVIL 200 MG ORAL TABLET 316616 IBUPROFEN Inactive BENADRYL ALLERGY 25 MG ORAL TABLET NEEDED BENADRYL ALLERGY 25 MG ORAL TABLET 8347062 DIPHENHYDRAMINE HCL Inactive FLONASE ALLERGY RELIEF 50 MCG/ACT NASAL SUSPENSION One spray each nostril daily for allergies FLONASE ALLERGY RELIEF 50 MCG/ACT NASAL SUSPENSION 0493126 FLUTICASONE PROPIONATE Inactive MIRALAX ORAL PACKET Takes daily prn MIRALAX ORAL PACKET 879847 POLYETHYLENE GLYCOL 3350 Inactive AUGMENTIN 875-125 MG ORAL TABLET 1 po BID x 7 days AUGMENTIN 875-125 MG ORAL TABLET 502340 AMOXICILLIN-POT CLAVULANATE Inactive HYDROCHLOROTHIAZIDE 12.5 MG ORAL CAPSULE 1 pill by mouth daily, for blood pressure HYDROCHLOROTHIAZIDE 12.5 MG ORAL CAPSULE 184366 HYDROCHLOROTHIAZIDE Inactive CIPRO 250 MG ORAL TABLET 1 tab BID for 7 days CIPRO 250 MG ORAL TABLET 768716 CIPROFLOXACIN HCL Inactive VITAMIN D3 2000 UNIT ORAL TABLET 1 daily, for vitamin D deficiency VITAMIN D3 2000 UNIT ORAL TABLET CHOLECALCIFEROL Inactive AMOXICILLIN 500 MG ORAL CAPSULE 1 tab by mouth 3 times daily 2011 AMOXICILLIN 500 MG ORAL CAPSULE 872141 AMOXICILLIN Inactive BACTRIM DS 800-160 MG ORAL TABLET 1 pill by mouth twice daily, for UTI 01/29 BACTRIM DS 800-160 MG ORAL TABLET 570794 SULFAMETHOXAZOLE- TRIMETHOPRIM Inactive MACROBID 100 MG ORAL CAPSULE 1 tab BID for 5 days MACROBID 100 MG ORAL CAPSULE 2221307 NITROFURANTOIN MONOHYD MACRO Inactive Advance Directives Directive [...] Measured blood pressure, diastolic 47 mm[Hg] BP womcak blood pressure, systolic 123 mm[Hg] BP sys [...] Panel - Chemistry sodium, serum 132 mmol/L 262-718 0880/08/09 potassium, serum 4.2 mmol/L 3.5-5.2 chloride, serum 99 mmol/L 98-107 carbon dioxide, venous blood 24.7 mmol/L 21.0-32.0 blood glucose 119 mg/dL 65-110 calcium, serum 8.5 mg/dL 8.5-10.1 urea nitrogen, blood 14 mg/dL 7-18 creatinine, serum 1.16 mg/dL 0.60-1.30 Lab Report: CBC-QUEST, COMPREHENSIVE METABOLIC PANEL, LIPID PANEL, Micro ... - Chemistry cholesterol, serum 162 mg/dL 993-637 9087/05/01 HDL cholesterol, serum 68 mg/dL > OR=46 [...] % 11.0-15.0 platelet count 297 THOUSAND/UL 10*3/mm3 383-482 2559/05/01 mean platelet volume 8.9 fL 7.5-12.5 Lab Report: CBC-QUEST, COMPREHENSIVE METABOLIC PANEL, LIPID PANEL, Micro ... - Urinalysis microalbumin/total urine volume <0.2 mg/dL mg/L microalbumin/creatinine ratio, urine NOTE mcg/mg creat mg/L <30 Lab Report: Erythrocyte Sed Rate, Thyroid Stimulating Hormone (L), Basic ... - Chemistry TSH 1.13 m[iU]/mL 0.36-3.74 sodium, serum 139 mmol/L 113-844 1198/01/10 potassium, serum 3.8 mmol/L 3.5-5.2 chloride, serum [...] 5.0-8.5 Encounters Code Encounter Date Provider Facility [facility]-[id number] Level 4 Est. Patient 12:35:27 FRAMEMAN Jalil Hayes MD [facility]-93997 Level 3 Est. Patient 13:55:49 CDT Jalil Hayes MD [facility]41155 Level 3 Est. Patient 14:38:15 CDT Jalil Hayes MD [facility]20214 Level 4 Est. Patient 14:40:54 CDT Bee Rosas [facility]-09104 Level 4 Est. Patient 10:31:15 CDT Jalil Hayes MD [facility]98271 Level 4 Est. Patient 15:07:54 CDT Mariaa Whitman [facility]ly [facility]14209 Level 3 Est. Patient 20:45:54 FRAMEMAN Mariaa Whitman [facility]-08535 Level 3 Est. Patient 12:16:16 CDT Ana Cristina Vallejo MD [facility]11630 Level 4 Est. Patient 12:49:21 CDT Ana Cristina Vallejo MD [facility]87781 Level 4 Est. Patient 23:02:25 CDT Ana Cristina Vallejo MD [facility]04589 Level 4 Est. Patient 19:26:33 FRAMEMAN Ana Cristina Vallejo MD [facility]49524 Level 4 Est. Patient 11:28:14 CDT Ana Cristina Vallejo MD [facility]58484 Level 4 Est. Patient 15:35:46 FRAMEMAN Ana Cristina Vallejo MD PhD [facility] CPT-77738 Level 3 Est. Patient 21:06:39 FRAMEMAN Alden Kim MD [facility] CPT-49079 Level 4 Est. Patient 15:30:54 FRAMEMAN Ana Cristina Vallejo MD PhD [facility] Procedures Code Procedure Name Date Entry Date Standard Description CPT-G0439 Subsequent Annual Wellness Exam 11:53:01 FRAMEMAN CPT-15122 First Vx - Ix admin for Medicare patients 13:35:01 CDT CPT-78011 Fluzone High-Dose Intramuscular Suspension 13:35:01 CDT CPT-TCMM Transitional Care Mgmt-Moderate 14:41:55 CDT CPT-61179 EKG Trac and Interp - XRAY USE ONLY 10:35:11 CDT 09/11 CPT-60433 Chest 2V Frontal and Lat - XRAY USE ONLY 10:35:11 CDT CPT-G0438 Initial Annual Wellness Exam 14:54:07 CDT CPT-G0009 Administration of Pneumococcal Vaccine 14:44:24 CDT CPT-16234 Pneumovax 23 Injection Injectable 25 MCG/0.5ML 14:44:24 CDT CPT-82577 First Vx - Ix admin for Medicare patients 14:44:24 CDT CPT-01306 Fluzone High-Dose Intramuscular Suspension 14:44:20 CDT CPT-56195 BMP - LAB USE ONLY 12:38:06 CDT CPT-57558 Urine Culture - LAB USE ONLY 16:56:33 CDT CPT-TCMM Transitional Care Mgmt-Moderate 18:08:16 CDT CPT-11322 Bone Density 09:14:12 CDT CPT-000 Give Appropriate Flu Vaccine 14:51:52 CDT CPT-15723 Fluzone High Dose (>=65 yrs.) 15:19:23 CDT CPT-91507 Immunization Single Admin 15:19:23 CDT CPT-00191 Prevnar 13 15:40:03 CDT CPT-08736 Administration single or combination vaccine inc oral 15 :40:03 CDT CPT-53282 Prevnar 13 13:55:07 CDT CPT-G0008 Administration of Influenza Virus Vaccine 10:49:51 CDT CPT-96245 Fluzone High-Dose Intramuscular Suspension 10:49:51 CDT CPT-90650 Knee 3V 13:31:37 CDT CPT-84226 Bone Density 09:07:05 FRAMEMAN CPT-29625 Nail Avulsion 09:46:05 CDT CPT-99098 Administration single or combination vaccine inc oral 16 :11:54 CDT CPT-63441 Influenza High Dose age 65+ 16:11:54 CDT CPT-39825 Administration single or combination vaccine inc oral 10 :53:15 CDT CPT-41812 Influenza High Dose age 65+ 10:53:15 CDT CPT-95809 Bone Density 14:50:58 FRAMEMAN CPT-42760 Administration single or combination vaccine inc oral 15 :41:20 FRAMEMAN CPT-92242 Zoster Vaccine (Zostavax) 15:41:20 FRAMEMAN CPT-83135 Spec Collection and Handling Fee 11:18:25 FRAMEMAN CPT-26302 Administration single or combination vaccine inc oral 11 :14:20 CDT CPT-39253 Influenza High Dose age 65+ 11:14:20 CDT
--- OUTSIDE RECORDS SUMMARY | 2017-07-18 08:31 | XMS REPORT ---
Author Author [facility] Organization [facility] Address [address] [place] [id number] Phone [phone] Care Team Providers Care Fence Making Machine Operator Name Role Phone LEANDRO BUCKLEY MD PP [phone] Summary purpose TRANSITION OF CARE AUTO GENERATION Chief Complaint and Reason for Visit No authorized Reason for Visit (Admitting Diagnosis) is available for this visit. Problem list No authorized problems tracked for continuity of care are available for this visit. Encounters No authorized problems tracked for encounter diagnoses are available for this visit. Medications No home medications recorded for this patient visit Allergies, adverse reactions, alerts Allergen Category Ingredient Status Reaction Severity Onset No known drug allergies No known drug allergies No known drug allergies Confirmed or Verified Immunizations No immunizations recorded for this patient visit Relevant diagnostic tests and/or laboratory data No authorized results are available for this patient visit History of procedures No procedures recorded for this patient visit. Functional status No functional or cognitive status [...]
--- OUTSIDE RECORDS SUMMARY | 2017-07-18 08:32 | XMS REPORT | Clinical Summary ---
Author Author Admin, QIE Organization [facility] [employer] Address Unknown Phone Unavailable Allergies, Adverse Reactions, Alerts Allergy Name Reaction Description Start Date Severity Status Provider No Known Allergies Jackelin Barth RPT,RMA NKDA Critical Active Mariaa Whitman PERFUME AND TOILET WATER MAKER Conditions or Problems Problem Name Problem Code [...] PACK Takes daily prn POLYETHYLENE GLYCOL 3350 [id number] Active Mariaa Whitman APRN Active ALENDRONATE SODIUM 70 MG TABS 1 pill by mouth weekly for osteoporosis ALENDRONATE SODIUM 60922729701 Active Brianda KNOTT Active E-1000 1000 UNIT ORAL CAPS Take one by mouth daily VITAMIN E 93694120051 Active Brianda KNOTT Active OSCAL 500/200 D-3 500-200 MG-UNIT ORAL TABS Take one by mouth 3 times daily, morning, afternoon and evening.] CALCIUM CARBONATE-VITAMIN D 04038857485 Active Brianda KNOTT Active ASPIRIN 81 MG CHEW TAB 1 tablet by mouth daily ASPIRIN 96284618521 Active Brianda RICK Active ADULT ASPIRIN EC LOW STRENGTH 81 MG TBEC TAKE 1 TAB DAILY ASPIRIN 97487130001 No Longer Active Mariaa Whitman APRN Active ALENDRONATE SODIUM 70 MG TABS TAKE 1 TAB ONCE A WEEK ALENDRONATE SODIUM 64997082946 No Longer Active Mariaa Whitman APRN Active FLONASE ALLERGY RELIEF 50 MCG/ACT NASAL SUSP One spray each nostril daily for allergies FLUTICASONE PROPIONATE 76845795588 Active Mariaa Whitman APRN Active CETIRIZINE HCL 10 MG ORAL TABS 1 po qd PRN Allergies CETIRIZINE HCL 49493940726 Active Mariaa Whitman APRN Active BACTRIM DS 800-160 MG TABS 1 pill by mouth twice daily, for UTI SULFAMETHOXAZOLE-TRIMETHOPRIM 66167549619 No Longer Active Ana Cristina Vallejo MD PhD Active HYDROCHLOROTHIAZIDE 12.5 MG CAPS 1 pill by mouth daily, for blood pressure HYDROCHLOROTHIAZIDE 10285089136 Active Mariaa Whitman APRN Active CARVEDILOL 25 MG TABS 1 pill by mouth twice daily for blood pressure CARVEDILOL 16881804840 Active Mariaa Whitman APRN Active SYNTHROID 0.088 MG TAB 1 tablet by mouth daily for thyroid LEVOTHYROXINE SODIUM 95450626512 Active Mariaa Whitman PERFUME AND TOILET WATER MAKER Active AMOXICILLIN 500 MG CAP 1 tab by mouth 3 times daily AMOXICILLIN 26206682946 No Longer Active Alden Kim MD Active [facility] VITAMIN D3 1000 UNIT CAPS TAKE 2 CAP DAILY CHOLECALCIFEROL Active Ana Cristina Vallejo MD PhD Active CALCIUM 500 MG TABS TAKE 3 TABS DAILY CALCIUM 36435326950 No Longer Active Mariaa Demetrioum PERFUME AND TOILET WATER MAKER Active MULTIVITAMINS TABS TAKE 1 TAB DAILY MULTIPLE VITAMIN Active Aneta D Leo RAIL CAR OPERATOR Active BENADRYL ALLERGY 25 MG TABS NEEDED DIPHENHYDRAMINE HCL 11811731702 Active Aneta D Leo RAIL CAR OPERATOR Active TYLENOL 325 MG TABS NEEDED ACETAMINOPHEN 65127471104 Active Aneta D Leo RAIL CAR OPERATOR Active ADVIL 200 MG TABS TAKE NEEDED IBUPROFEN 97829258899 Active Aneta D Leo RAIL CAR OPERATOR Active GLUCOSAMINE-CHONDROITIN 500-400 MG TABS TAKE 1 TAB DAILY GLUCOSAMINE-CHONDROITIN 49337608321 Active Mariaa Yokum PERFUME AND TOILET WATER MAKER Active NORVASC 10 MG TABS TAKE 1 TAB DAILY AMLODIPINE BESYLATE 64349748157 Active Mariaa Yokum PERFUME AND TOILET WATER MAKER Active BENAZEPRIL HCL 40 MG TABS 1 PO BID BENAZEPRIL HCL 83211808181 Active Mariaadomenico Atkinsonum PERFUME AND TOILET WATER MAKER Active LOVASTATIN 20 MG TABS 1 PO Q HS FOR CHOLESTEROL LOVASTATIN 62729425565 Active Mariaadomenico Atkinsonum PERFUME AND TOILET WATER MAKER Active RANITIDINE HCL 150 MG CAPS 1 PO Q 12 HRS RANITIDINE HCL 12684367659 Active Mariaa Demetrioum PERFUME AND TOILET WATER MAKER Active ALENDRONATE SODIUM 70 MG TABS TAKE 1 TAB ONCE A WEEK ALENDRONATE SODIUM 70 MG TABS 427696 ALENDRONATE SODIUM Inactive ADULT ASPIRIN EC LOW STRENGTH 81 MG TBEC TAKE 1 TAB DAILY ADULT ASPIRIN EC LOW STRENGTH 81 MG TBEC 573136 ASPIRIN Inactive AMOXICILLIN 500 MG CAP 1 tab by mouth 3 times daily AMOXICILLIN 500 MG CAP 754399 AMOXICILLIN Inactive BACTRIM DS 800-160 MG TABS 1 pill by mouth twice daily, for UTI BACTRIM DS 800-160 MG TABS 762542 SULFAMETHOXAZOLE-TRIMETHOPRIM Inactive Advance Directives Directive Description Start [...] Panel - Chemistry sodium, serum 130 mmol/L 672-318 5006/10/19 potassium, serum 3.5 mmol/L 3.5-5.2 chloride, serum [...] 1.41 ng/dL 0.76-1.46 cholesterol, serum 166 mg/dL 895-820 9792/04/20 triglyceride, serum, fasting 68 mg/dL 30-200 HDL cholesterol, serum 88 mg/dL 32-96 LDL cholesterol, serum 64 mg/dL 0-130 sodium, serum 132 mmol/L 417-276 3548/04/20 carbon dioxide, venous blood 31.3 mmol/L 21.0-32.0 [...] 5.0-8.5 Encounters Code Encounter Date Provider Facility CPT-04928 Level 4 Est. Patient 15:07:54 CDT Mariaa Whitman [facility] CPT-71513 Level 3 Est. Patient 20:45:54 MENTAL TELEPATHIST Mariaa Whitman [facility] CPT-98059 Level 3 Est. Patient 12:16:16 CDT Ana Cristina Vallejo MD [facility] CPT-35691 Level 4 Est. Patient 12:49:21 CDT Ana Cristina Vallejo MD [facility] CPT-86547 Level 4 Est. Patient 23:02:25 CDT AnaC ristina Vallejo MD [facility] CPT-54795 Level 4 Est. Patient 19:26:33 MENTAL TELEPATHIST Ana Cristina Vallejo MD [facility] CPT-15097 Level 4 Est. Patient 11:28:14 CDT Ana Cristina Vallejo MD [facility] CPT-30462 Level 4 Est. Patient 15:35:46 MENTAL TELEPATHIST Ana Cristina Vallejo MD [facility] CPT-58408 Level 3 Est. Patient 21:06:39 MENTAL TELEPATHIST Alden Kim MD [facility] CPT-77000 Level 4 Est. Patient 15:30:54 MENTAL TELEPATHIST Ana Cristina Vallejo MD [facility] Procedures Code Procedure Name Date Entry Date Standard Description CPT-G0009 Administration of Pneumococcal Vaccine 14:44:24 CDT CPT-91440 Pneumovax 23 Injection Injectable 25 MCG/0.5ML 14:44:24 CDT CPT-26342 First Vx - Ix admin for Medicare patients 14:44:24 CDT CPT-66566 Fluzone High-Dose Intramuscular Suspension 14:44:20 CDT CPT-73342 BMP - LAB USE ONLY 12:38:06 CDT CPT-65575 Urine Culture - LAB USE ONLY 16:56:33 CDT CPT-TCMM Transitional Care Mgmt-Moderate 18:08:16 CDT CPT-36748 Bone Density 09:14:12 CDT CPT-000 Give Appropriate Flu Vaccine 14:51:52 CDT CPT-01496 Fluzone High Dose (>=65 yrs.) 15:19:23 CDT CPT-13430 Immunization Single Admin 15:19:23 CDT CPT-54754 Prevnar 13 15:40:03 CDT CPT-41766 Administration single or combination vaccine inc oral 15 :40:03 CDT CPT-42978 Prevnar 13 13:55:07 CDT CPT-G0008 Administration of Influenza Virus Vaccine 10:49:51 CDT CPT-71030 Fluzone High-Dose Intramuscular Suspension 10:49:51 CDT CPT-87016 Knee 3V 13:31:37 CDT CPT-95269 Bone Density 09:07:05 MENTAL TELEPATHIST CPT-36244 Nail Avulsion 09:46:05 CDT CPT-67755 Administration single or combination vaccine inc oral 16 :11:54 CDT CPT-10426 Influenza High Dose age 65+ 16:11:54 CDT CPT-89449 Administration single or combination vaccine inc oral 10 :53:15 CDT CPT-07658 Influenza High Dose age 65+ 10:53:15 CDT CPT-42634 Bone Density 14:50:58 MENTAL TELEPATHIST CPT-60367 Administration single or combination vaccine inc oral 15 :41:20 MENTAL TELEPATHIST CPT-93394 Zoster Vaccine (Zostavax) 15:41:20 MENTAL TELEPATHIST CPT-83348 Spec Collection and Handling Fee 11:18:25 MENTAL TELEPATHIST CPT-77130 Administration single or combination vaccine inc oral 11 :14:20 CDT CPT-53547 Influenza High Dose age 65+ 11:14:20 CDT
--- OUTSIDE RECORDS SUMMARY | 2017-07-18 08:32 | XMS REPORT | Clinical Summary ---
Author Author Admin, DANDRE Organization [facility] [employer] Address Unknown Phone Unavailable Allergies, Adverse Reactions, Alerts Allergy Name Reaction Description Start Date Severity Status Provider NKDA Critical Active Mariaa Whitman OPERATIONAL COMMUNICATION CHIEF Conditions or Problems Problem Name Problem Code Onset Date Status Entry Date Provider Comment Standard Description Annotate ROUTINE GYNECOLOGICAL EXAMINATION V72.31 Resolved Ana Cristina Vallejo MD PhD Routine gynecological examination MENOPAUSE 627.2 Ruled out Ana Cristina Vallejo MD PhD Symptomatic menopausal or female climacteric states MENOPAUSE 627.2 Active Brianda Reis [facility] Symptomatic menopausal or female climacteric states [...] APRN Dysphagia, unspecified Near syncope 780.2 Active Jalli Hayes MD Syncope and collapse Diastolic dysfunction 429.9 Active Jalil Hayes MD Heart disease, unspecified Pulmonary hypertension 416.8 Active Jalil Hayes MD Other chronic pulmonary heart diseases Left atrial enlargement 429.3 Active Jalil Hayes MD Cardiomegaly Diastolic dysfunction 429.9 Active Jalil Hayes MD Heart disease, unspecified Dysuria 788.1 Resolved Jalil Hayes MD Dysuria Forgetfulness 780.99 Active Radha Jones OPERATIONAL COMMUNICATION CHIEF Other general symptoms Unsteady gait 781.2 Active [...] 1 daily, for vitamin D deficiency CHOLECALCIFEROL 73997442578 No Longer Active Radha Jones APRN Active CIPRO 250 MG ORAL TABLET 1 tab BID for 7 days CIPROFLOXACIN HCL 92111526562 No Longer Active Radha Jones APRN Active VITAMIN D3 2000 UNIT ORAL CAPSULE 1 capsule po daily CHOLECALCIFEROL 67789202962 Active Aneta Tavarezum LOG MANAGER Active EQL ONE DAILY WOMENS ORAL TABLET 1 po daily MULTIPLE VITAMINS- CALCIUM 29397038838 Active Aneta D Leo LOG MANAGER Active MACROBID 100 MG ORAL CAPSULE 1 tab BID for 5 days NITROFURANTOIN MONOHYD MACRO 85320951599 No Longer Active Deepti Junior LPN Active HYDROCHLOROTHIAZIDE 12.5 MG ORAL CAPSULE 1 pill by mouth daily HYDROCHLOROTHIAZIDE 93084561063 Active Jalil Hayes MD Active RANITIDINE HCL 150 MG ORAL CAPSULE once nightly RANITIDINE HCL 54253155168 Active Jalil Hayes MD Active BENAZEPRIL HCL 40 MG ORAL TABLET 1 daily for blood pressure BENAZEPRIL HCL 98977823229 Active Jalil Hayes MD Active HYDROCHLOROTHIAZIDE 12.5 MG ORAL CAPSULE 1 pill by mouth daily, for blood pressure HYDROCHLOROTHIAZIDE 78727493922 No Longer Active Jalil Hayes MD Active AUGMENTIN 875-125 MG ORAL TABLET 1 po BID x 7 days AMOXICILLIN-POT CLAVULANATE 24075493507 No Longer Active Jalil Hayes MD Active OMEPRAZOLE 40 MG ORAL CAPSULE DELAYED RELEASE 1 po q a.m. OMEPRAZOLE 16495365648 Active HEDY Esquivel Active MIRALAX ORAL PACKET Takes daily prn POLYETHYLENE GLYCOL 3350 85533178245 No Longer Active Peggy Pardo LPN Active FLONASE ALLERGY RELIEF 50 MCG/ACT NASAL SUSPENSION One spray each nostril daily for allergies FLUTICASONE PROPIONATE 01382971231 No Longer Active Peggy Pardo, LOG MANAGER Active BENADRYL ALLERGY 25 MG ORAL TABLET NEEDED DIPHENHYDRAMINE HCL 58193031101 No Longer Active Peggy Pardo, LOG MANAGER Active ADVIL 200 MG ORAL TABLET TAKE NEEDED IBUPROFEN 49646872846 No Longer Active Peggy Pardo, LOG MANAGER Active COLACE 100 MG ORAL CAPSULE 1 po BID PRN Constipation DOCUSATE SODIUM 35120943212 No Longer Active Deepti Hamlinl LOG MANAGER Active ALPRAZOLAM 0.25 MG ORAL TABLET 1/2-1 tablet by mouth twice a day as needed for stress ALPRAZOLAM 21781838641 No Longer Active Deepti Junior LOG MANAGER Active ALENDRONATE SODIUM 70 MG ORAL TABLET 1 pill by mouth weekly for osteoporosis ALENDRONATE SODIUM 59361526270 Active Mariaadomenico Whitman APRN Active E-1000 1000 UNIT ORAL CAPSULE Take one by mouth daily VITAMIN E 67389846629 Active Aneta Bailey LOG MANAGER Active OSCAL 500/200 D-3 500-200 MG-UNIT ORAL TABLET Take one by mouth 3 times daily , morning, afternoon and evening.] CALCIUM CARBONATE-VITAMIN D 80967374192 Active Aneta Tavarezum LOG MANAGER Active ASPIRIN 81 MG ORAL TABLET CHEWABLE 1 tablet by mouth daily ASPIRIN 75528127674 Active Aneta Tavarezum LOG MANAGER Active ADULT ASPIRIN EC LOW STRENGTH 81 MG ORAL TABLET DELAYED RELEASE TAKE 1 TAB DAILY ASPIRIN 56387450849 No Longer Active Mariaa Antonette OPERATIONAL COMMUNICATION CHIEF Active ALENDRONATE SODIUM 70 MG ORAL TABLET TAKE 1 TAB ONCE A WEEK 01/20 ALENDRONATE SODIUM 72673257594 No Longer Active Mariaa Lauxuanum OPERATIONAL COMMUNICATION CHIEF Active CETIRIZINE HCL 10 MG ORAL TABLET 1 po qd PRN Allergies CETIRIZINE HCL 99853121464 Active HEDY Esquivel Active BACTRIM DS 800-160 MG ORAL TABLET 1 pill by mouth twice daily, for UTI 01/29 SULFAMETHOXAZOLE-TRIMETHOPRIM 71483000948 No Longer Active Ana Cristina Vallejo MD PhD Active CARVEDILOL 25 MG ORAL TABLET 1 pill by mouth twice daily for blood pressure CARVEDILOL 51133137746 Active Aneta Bailey LPN Active SYNTHROID 88 MCG ORAL TABLET 1 tablet by mouth daily for thyroid LEVOTHYROXINE SODIUM 13660961498 Active HEDY Esquivel Active AMOXICILLIN 500 MG ORAL CAPSULE 1 tab by mouth 3 times daily 2011 AMOXICILLIN 76664475033 No Longer Active Alden Kim MD Active CALCIUM 500 MG ORAL TABLET TAKE 3 TABS DAILY CALCIUM 81950271790 No Longer Active Mariaa Yokum PARISH Active MULTIVITAMINS TABS TAKE 1 TAB DAILY MULTIPLE VITAMIN No Longer Active Aneta Tavarezum YULIET Active TYLENOL 325 MG ORAL TABLET NEEDED ACETAMINOPHEN 22286747363 Active Aneta Tavarezum LOG MANAGER Active GLUCOSAMINE-CHONDROITIN 500-400 MG ORAL TABLET TAKE 1 TAB DAILY GLUCOSAMINE-CHONDROITIN 14617359143 Active Aneta Bailey LPN Active NORVASC 10 MG ORAL TABLET TAKE 1 TAB DAILY AMLODIPINE BESYLATE 01262673359 Active Aneta Bailey LPN Active LOVASTATIN 20 MG ORAL TABLET 1 PO Q HS FOR CHOLESTEROL LOVASTATIN 88846155805 Active HEDY Esquivel Active ALENDRONATE SODIUM 70 MG ORAL TABLET TAKE 1 TAB ONCE A WEEK 01/20 ALENDRONATE SODIUM 70 MG ORAL TABLET 849565 ALENDRONATE SODIUM Inactive ADULT ASPIRIN EC LOW STRENGTH 81 MG ORAL TABLET DELAYED RELEASE TAKE 1 TAB DAILY ADULT ASPIRIN EC LOW STRENGTH 81 MG ORAL TABLET DELAYED RELEASE 174971 ASPIRIN Inactive ALPRAZOLAM 0.25 MG ORAL TABLET 1/2-1 tablet by mouth twice a day as needed for stress ALPRAZOLAM 0.25 MG ORAL TABLET 461972 ALPRAZOLAM Inactive COLACE 100 MG ORAL CAPSULE 1 po BID PRN Constipation COLACE 100 MG ORAL CAPSULE 6439121 DOCUSATE SODIUM Inactive ADVIL 200 MG ORAL TABLET TAKE NEEDED ADVIL 200 MG ORAL TABLET 611403 IBUPROFEN Inactive BENADRYL ALLERGY 25 MG ORAL TABLET NEEDED BENADRYL ALLERGY 25 MG ORAL TABLET 0418163 DIPHENHYDRAMINE HCL Inactive FLONASE ALLERGY RELIEF 50 MCG/ACT NASAL SUSPENSION One spray each nostril daily for allergies FLONASE ALLERGY RELIEF 50 MCG/ACT NASAL SUSPENSION 7548404 FLUTICASONE PROPIONATE Inactive MIRALAX ORAL PACKET Takes daily prn MIRALAX ORAL PACKET 843805 POLYETHYLENE GLYCOL 3350 Inactive AUGMENTIN 875-125 MG ORAL TABLET 1 po BID x 7 days AUGMENTIN 875-125 MG ORAL TABLET 734090 AMOXICILLIN-POT CLAVULANATE Inactive HYDROCHLOROTHIAZIDE 12.5 MG ORAL CAPSULE 1 pill by mouth daily, for blood pressure HYDROCHLOROTHIAZIDE 12.5 MG ORAL CAPSULE 544799 HYDROCHLOROTHIAZIDE Inactive CIPRO 250 MG ORAL TABLET 1 tab BID for 7 days CIPRO 250 MG ORAL TABLET 638802 CIPROFLOXACIN HCL Inactive VITAMIN D3 2000 UNIT ORAL TABLET 1 daily, for vitamin D deficiency VITAMIN D3 2000 UNIT ORAL TABLET CHOLECALCIFEROL Inactive AMOXICILLIN 500 MG ORAL CAPSULE 1 tab by mouth 3 times daily 2011 AMOXICILLIN 500 MG ORAL CAPSULE 791236 AMOXICILLIN Inactive BACTRIM DS 800-160 MG ORAL TABLET 1 pill by mouth twice daily, for UTI 01/29 BACTRIM DS 800-160 MG ORAL TABLET 199969 SULFAMETHOXAZOLE- TRIMETHOPRIM Inactive MACROBID 100 MG ORAL CAPSULE 1 tab BID for 5 days MACROBID 100 MG ORAL CAPSULE 7444021 NITROFURANTOIN MONOHYD MACRO Inactive Advance Directives Directive [...] Panel - Chemistry sodium, serum 132 mmol/L 485-881 9808/08/09 potassium, serum 4.2 mmol/L 3.5-5.2 chloride, serum 99 mmol/L 98-107 carbon dioxide, venous blood 24.7 mmol/L 21.0-32.0 blood glucose 119 mg/dL 65-110 calcium, serum 8.5 mg/dL 8.5-10.1 urea nitrogen, blood 14 mg/dL 7-18 creatinine, serum 1.16 mg/dL 0.60-1.30 Lab Report: CBC-QUEST, COMPREHENSIVE METABOLIC PANEL, LIPID PANEL, Micro ... - Chemistry cholesterol, serum 162 mg/dL 380-739 9931/05/01 HDL cholesterol, serum 68 mg/dL > OR=46 [...] % 11.0-15.0 platelet count 297 THOUSAND/UL 10*3/mm3 312-747 4612/05/01 mean platelet volume 8.9 fL 7.5-12.5 Lab [...] 5.0-8.5 Encounters Code Encounter Date Provider Facility CPT-31308 Level 4 Est. Patient 12:35:27 SAND MILL OPERATOR CORE SAND Jalil Hayes MD [facility] CPT-84019 Level 3 Est. Patient 13:55:49 CDT Jalil Hayes MD [facility] CPT-44162 Level 3 Est. Patient 14:38:15 CDT Jalil Hayes MD [facility] CPT-90580 Level 4 Est. Patient 14:40:54 CDT Bee Rosas [facility] CPT-87059 Level 4 Est. Patient 10:31:15 CDT Jalil Hayes MD [facility] CPT-56740 Level 4 Est. Patient 15:07:54 CDT Mariaa Whitman [facility] CPT-22242 Level 3 Est. Patient 20:45:54 SAND MILL OPERATOR CORE SAND Mariaa Yodee [facility] CPT-42519 Level 3 Est. Patient 12:16:16 CDT Ana Cristina Vallejo MD [facility]-15031 Level 4 Est. Patient 12:49:21 CDT Ana Cristina Vallejo MD [facility]-93062 Level 4 Est. Patient 23:02:25 CDT Ana Cristina Vallejo MD [facility] CPT-71548 Level 4 Est. Patient 19:26:33 SAND MILL OPERATOR CORE SAND Ana Cristina Vallejo MD [facility] CPT-84033 Level 4 Est. Patient 11:28:14 CDT Ana Cristina Vallejo MD [facility] CPT-59837 Level 4 Est. Patient 15:35:46 SAND MILL OPERATOR CORE SAND Ana Cristina Vallejo MD [facility] CPT-44430 Level 3 Est. Patient 21:06:39 SAND MILL OPERATOR CORE SAND Alden Kim MD [facility] CPT-67667 Level 4 Est. Patient 15:30:54 SAND MILL OPERATOR CORE SAND Ana Cristina Vallejo MD PhD [facility] Procedures Code Procedure Name Date Entry Date Standard Description CPT-G0439 [facility] Annual Wellness Exam 11:53:01 SAND MILL OPERATOR CORE SAND CPT-95134 First Vx - Ix admin for Medicare patients 13:35:01 CDT CPT-20676 Fluzone High-Dose Intramuscular Suspension 13:35:01 CDT CPT-TCMM Transitional Care Mgmt-Moderate 14:41:55 CDT CPT-13024 EKG Trac and Interp - XRAY USE ONLY 10:35:11 CDT 09/11 CPT-05904 Chest 2V Frontal and Lat - XRAY USE ONLY 10:35:11 CDT CPT-G0438 Initial Annual Wellness Exam 14:54:07 CDT CPT-G0009 Administration of Pneumococcal Vaccine 14:44:24 CDT CPT-15012 Pneumovax 23 Injection Injectable 25 MCG/0.5ML 14:44:24 CDT CPT-64202 First Vx - Ix admin for Medicare patients 14:44:24 CDT CPT-59660 Fluzone High-Dose Intramuscular Suspension 14:44:20 CDT CPT-53552 BMP - LAB USE ONLY 12:38:06 CDT CPT-46874 Urine Culture - LAB USE ONLY 16:56:33 CDT CPT-TCMM Transitional Care Mgmt-Moderate 18:08:16 CDT CPT-20415 Bone Density 09:14:12 CDT CPT-000 Give Appropriate Flu Vaccine 14:51:52 CDT CPT-46311 Fluzone High Dose (>=65 yrs.) 15:19:23 CDT CPT-67119 Immunization Single Admin 15:19:23 CDT CPT-56605 Prevnar 15:40:03 CDT CPT-28142 Administration single or combination vaccine inc oral 15 :40:03 CDT CPT-22422 Prevnar 13 13:55:07 CDT CPT-G0008 Administration of Influenza Virus Vaccine 10:49:51 CDT CPT-33389 Fluzone High-Dose Intramuscular Suspension 10:49:51 CDT CPT-76894 Knee 3V 13:31:37 CDT CPT-01623 Bone Density 09:07:05 SAND MILL OPERATOR CORE SAND CPT-94238 Nail Avulsion 09:46:05 CDT CPT-89613 Administration single or combination vaccine inc oral 16 :11:54 CDT CPT-25283 Influenza High Dose age 65+ 16:11:54 CDT CPT-16643 Administration single or combination vaccine inc oral 10 :53:15 CDT CPT-84440 Influenza High Dose age 65+ 10:53:15 CDT CPT-68557 Bone Density 14:50:58 SAND MILL OPERATOR CORE SAND CPT-32322 Administration single or combination vaccine inc oral 15 :41:20 SAND MILL OPERATOR CORE SAND CPT-38849 Zoster Vaccine (Zostavax) 15:41:20 SAND MILL OPERATOR CORE SAND CPT-39104 Spec Collection and Handling Fee 11:18:25 SAND MILL OPERATOR CORE SAND CPT-98208 Administration single or combination vaccine inc oral 11 :14:20 CDT CPT-55371 Influenza High Dose age 65+ 11:14:20 CDT
--- OUTSIDE RECORDS SUMMARY | 2017-07-18 08:32 | XMS REPORT | Clinical Summary ---
Author Author Admin, DANDRE Organization [facility] Address Unknown Phone Unavailable Allergies, Adverse Reactions, Alerts Allergy Name Reaction Description Start Date Severity Status Provider NKDA Critical Active Mariaa Whitman PIPE LINE INSPECTOR Conditions or Problems Problem Name Problem Code Onset Date Status Entry Date Provider Comment Standard Description Annotate ROUTINE GYNECOLOGICAL EXAMINATION V72.31 Resolved Ana Cristina Vallejo MD PhD Routine gynecological examination MENOPAUSE 627.2 Ruled out Ana Cristina Vallejo MD PhD Symptomatic menopausal or female climacteric states MENOPAUSE 627.2 Active Brianda Reis [facility] Symptomatic menopausal or female climacteric [...] a day as needed for stress ALPRAZOLAM 02739207607 Active Mariaa Whitman APRN Active COLACE 100 MG CAP 1 po BID PRN Constipation DOCUSATE SODIUM 90281450700 Active Mariaa Antonette SWARTZN Active MIRALAX ORAL PACK Takes daily prn POLYETHYLENE GLYCOL 3350 48097363530 Active Mariaa Atkinsonum PIPE LINE INSPECTOR Active ALENDRONATE SODIUM 70 MG TABS 1 pill by mouth weekly for osteoporosis ALENDRONATE SODIUM 32131689890 Active Brianda RICK Active E-1000 1000 UNIT ORAL CAPS Take one by mouth daily VITAMIN E 19984191336 Active Brianda KNOTT Active OSCAL 500/200 D-3 500-200 MG-UNIT ORAL TABS Take one by mouth 3 times daily, morning, afternoon and evening.] CALCIUM CARBONATE-VITAMIN D 31085598708 Active Brianda RICK Active ASPIRIN 81 MG CHEW TAB 1 tablet by mouth daily ASPIRIN 51050338923 Active Brianda RICK Active ADULT ASPIRIN EC LOW STRENGTH 81 MG TBEC TAKE 1 TAB DAILY ASPIRIN 69049888724 No Longer Active Mariaa Whitman APRN Active ALENDRONATE SODIUM 70 MG TABS TAKE 1 TAB ONCE A WEEK ALENDRONATE SODIUM 59657594463 No Longer Active Mariaa Whitman APRN Active FLONASE ALLERGY RELIEF 50 MCG/ACT NASAL SUSP One spray each nostril daily for allergies FLUTICASONE PROPIONATE 39943434283 Active Mariaa Whitman APRN Active CETIRIZINE HCL 10 MG ORAL TABS 1 po qd PRN Allergies CETIRIZINE HCL 10596279962 Active Mariaa Whitman APRN Active BACTRIM DS 800-160 MG TABS 1 pill by mouth twice daily, for UTI SULFAMETHOXAZOLE-TRIMETHOPRIM 34376107815 No Longer Active Ana Cristina Vallejo MD PhD Active HYDROCHLOROTHIAZIDE 12.5 MG CAPS 1 pill by mouth daily, for blood pressure HYDROCHLOROTHIAZIDE 97096901488 Active Mariaa Whitman APRN Active CARVEDILOL 25 MG TABS 1 pill by mouth twice daily for blood pressure CARVEDILOL 38501850792 Active Mariaa Whitman APRN Active SYNTHROID 0.088 MG TAB 1 tablet by mouth daily for thyroid LEVOTHYROXINE SODIUM 90871558462 Active Mariaa Yokum PIPE LINE INSPECTOR Active AMOXICILLIN 500 MG CAP 1 tab by mouth 3 times daily AMOXICILLIN 36911412573 No Longer Active Alden Kim MD Active [facility] VITAMIN D3 1000 UNIT CAPS TAKE 2 CAP DAILY CHOLECALCIFEROL Active Ana Cristina Vallejo MD PhD Active CALCIUM 500 MG TABS TAKE 3 TABS DAILY CALCIUM 66328543784 No Longer Active Mariaa Yoxuanum PIPE LINE INSPECTOR Active MULTIVITAMINS TABS TAKE 1 TAB DAILY MULTIPLE VITAMIN Active Aneta D Leo CHILD AND FAMILY SERVICES SPECIALIST Active BENADRYL ALLERGY 25 MG TABS NEEDED DIPHENHYDRAMINE HCL 55267252012 Active Aneta D Leo CHILD AND FAMILY SERVICES SPECIALIST Active TYLENOL 325 MG TABS NEEDED ACETAMINOPHEN 82306507632 Active Aneta D Leo CHILD AND FAMILY SERVICES SPECIALIST Active ADVIL 200 MG TABS TAKE NEEDED IBUPROFEN 77121339553 Active Aneta D Leo CHILD AND FAMILY SERVICES SPECIALIST Active GLUCOSAMINE-CHONDROITIN 500-400 MG TABS TAKE 1 TAB DAILY GLUCOSAMINE-CHONDROITIN 63783793404 Active Mariaa Yokum PIPE LINE INSPECTOR Active NORVASC 10 MG TABS TAKE 1 TAB DAILY AMLODIPINE BESYLATE 78174041394 Active Mariaa Yokum PIPE LINE INSPECTOR Active BENAZEPRIL HCL 40 MG TABS 1 PO BID BENAZEPRIL HCL 05156219400 Active Mariaa Demetrioum PIPE LINE INSPECTOR Active LOVASTATIN 20 MG TABS 1 PO Q HS FOR CHOLESTEROL LOVASTATIN 36296940140 Active Mariaa Yokum PIPE LINE INSPECTOR Active RANITIDINE HCL 150 MG CAPS 1 PO Q 12 HRS RANITIDINE HCL 59961032602 Active Mariaa Yokum PIPE LINE INSPECTOR Active ALENDRONATE SODIUM 70 MG TABS TAKE 1 TAB ONCE A WEEK ALENDRONATE SODIUM 70 MG TABS 541548 ALENDRONATE SODIUM Inactive ADULT ASPIRIN EC LOW STRENGTH 81 MG TBEC TAKE 1 TAB DAILY ADULT ASPIRIN EC LOW STRENGTH 81 MG TBEC 925025 ASPIRIN Inactive AMOXICILLIN 500 MG CAP 1 tab by mouth 3 times daily AMOXICILLIN 500 MG CAP 188823 AMOXICILLIN Inactive BACTRIM DS 800-160 MG TABS 1 pill by mouth twice daily, for UTI BACTRIM DS 800-160 MG TABS 897148 SULFAMETHOXAZOLE-TRIMETHOPRIM Inactive Advance Directives Directive Description Start [...] Panel - Chemistry sodium, serum 130 mmol/L 444-727 5374/10/19 potassium, serum 3.5 mmol/L 3.5-5.2 chloride, serum [...] 1.41 ng/dL 0.76-1.46 cholesterol, serum 166 mg/dL 676-143 0045/04/20 triglyceride, serum, fasting 68 mg/dL 30-200 HDL cholesterol, serum 88 mg/dL 32-96 LDL cholesterol, serum 64 mg/dL 0-130 sodium, serum 132 mmol/L 767-780 1669/04/20 carbon dioxide, venous blood 31.3 mmol/L 21.0-32.0 [...] 5.0-8.5 Encounters Code Encounter Date Provider Facility CPT-83852 Level 4 Est. Patient 15:07:54 CDT Mariaa Whitman [facility] CPT-35309 Level 3 Est. Patient 20:45:54 COMMERCIAL LOAN REVIEWER Mariaa Whitman [facility] CPT-28930 Level 3 Est. Patient 12:16:16 CDT Ana Cristina Vallejo MD [facility]-97203 Level 4 Est. Patient 12:49:21 CDT Ana Cristina Vallejo MD [facility] CPT-07314 Level 4 Est. Patient 23:02:25 CDT Ana Cristina Vallejo MD [facility]-83155 Level 4 Est. Patient 19:26:33 COMMERCIAL LOAN REVIEWER Ana Cristina Vallejo MD [facility]-60025 Level 4 Est. Patient 11:28:14 CDT Ana Cristina Vallejo MD [facility]-50494 Level 4 Est. Patient 15:35:46 COMMERCIAL LOAN REVIEWER Ana Cristina Vallejo MD [facility] CPT-75076 Level 3 Est. Patient 21:06:39 COMMERCIAL LOAN REVIEWER Alden Kim MD [facility] CPT-61337 Level 4 Est. Patient 15:30:54 COMMERCIAL LOAN REVIEWER Ana Cristina Vallejo MD [facility] Procedures Code Procedure Name Date Entry Date Standard Description CPT-G0438 Initial Annual Wellness Exam 14:54:07 CDT CPT-G0009 Administration of Pneumococcal Vaccine 14:44:24 CDT CPT-52732 Pneumovax 23 Injection Injectable 25 MCG/0.5ML 14:44:24 CDT CPT-56545 First Vx - Ix admin for Medicare patients 14:44:24 CDT CPT-04059 Fluzone High-Dose Intramuscular Suspension 14:44:20 CDT CPT-56249 BMP - LAB USE ONLY 12:38:06 CDT CPT-98712 Urine Culture - LAB USE ONLY 16:56:33 CDT CPT-TCMM Transitional Care Mgmt-Moderate 18:08:16 CDT CPT-76277 Bone Density 09:14:12 CDT CPT-000 Give Appropriate Flu Vaccine 14:51:52 CDT CPT-59075 Fluzone High Dose (>=65 yrs.) 15:19:23 CDT CPT-48545 Immunization Single Admin 15:19:23 CDT CPT-46396 Prevnar 13 15:40:03 CDT CPT-35850 Administration single or combination vaccine inc oral 15 :40:03 CDT CPT-79692 Prevnar 13 13:55:07 CDT CPT-G0008 Administration of Influenza Virus Vaccine 10:49:51 CDT CPT-53591 Fluzone High-Dose Intramuscular Suspension 10:49:51 CDT CPT-57814 Knee 3V 13:31:37 CDT CPT-64138 Bone Density 09:07:05 COMMERCIAL LOAN REVIEWER CPT-82451 Nail Avulsion 09:46:05 CDT CPT-08523 Administration single or combination vaccine inc oral 16 :11:54 CDT CPT-05705 Influenza High Dose age 65+ 16:11:54 CDT CPT-60099 Administration single or combination vaccine inc oral 10 :53:15 CDT CPT-49901 Influenza High Dose age 65+ 10:53:15 CDT CPT-04562 Bone Density 14:50:58 COMMERCIAL LOAN REVIEWER CPT-11156 Administration single or combination vaccine inc oral 15 :41:20 COMMERCIAL LOAN REVIEWER CPT-50484 Zoster Vaccine (Zostavax) 15:41:20 COMMERCIAL LOAN REVIEWER CPT-59028 Spec Collection and Handling Fee 11:18:25 COMMERCIAL LOAN REVIEWER CPT-83329 Administration single or combination vaccine inc oral 11 :14:20 CDT CPT-13264 Influenza High Dose age 65+ 11:14:20 CDT
--- OUTSIDE RECORDS SUMMARY | 2017-07-18 08:33 | XMS REPORT | Clinical Summary ---
Author Author Admin, DANDRE Organization [facility] Address Unknown Phone Unavailable Allergies, Adverse Reactions, Alerts Allergy Name Reaction Description Start Date Severity Status Provider NKDA Critical Active Mariaa Whitman PROSTHETIST Conditions or Problems Problem Name Problem Code [...] 1 daily for blood pressure BENAZEPRIL HCL 78730770705 Active Jalil Hayes MD Active HYDROCHLOROTHIAZIDE 12.5 MG CAPS 1 pill by mouth daily, for blood pressure HYDROCHLOROTHIAZIDE 10689765873 No Longer Active Jalil Hayes MD Active AUGMENTIN 875-125 MG TAB 1 po BID x 7 days AMOXICILLIN-POT CLAVULANATE 65194808050 No Longer Active Jalil Hayes MD Active OMEPRAZOLE 40 MG CPDR 1 po q a.m. OMEPRAZOLE 15523345235 Active Peggy Pardo LPN Active MIRALAX ORAL PACK Takes daily prn POLYETHYLENE GLYCOL 3350 51564573562 No Longer Active Peggy Pardo LPN Active FLONASE ALLERGY RELIEF 50 MCG/ACT NASAL SUSP One spray each nostril daily for allergies FLUTICASONE PROPIONATE 77522164726 No Longer Active Peggy Pardo LPN Active BENADRYL ALLERGY 25 MG TABS NEEDED DIPHENHYDRAMINE HCL 71391241098 No Longer Active Peggy Pardo LPN Active ADVIL 200 MG TABS TAKE NEEDED IBUPROFEN 33757338958 No Longer Active Peggy Edvin, POLISHING WHEEL SETTER Active COLACE 100 MG CAP 1 po BID PRN Constipation DOCUSATE SODIUM 52863754606 No Longer Active Deeptitayler Junior LPN Active ALPRAZOLAM 0.25 MG TAB 1/2-1 tablet by mouth twice a day as needed for stress ALPRAZOLAM 78199202415 No Longer Active Deepti Sandi ANGUIANON Active ALENDRONATE SODIUM 70 MG TABS 1 pill by mouth weekly for osteoporosis ALENDRONATE SODIUM 01945737469 Active Briandahelen Reis Robin Active E-1000 1000 UNIT ORAL CAPS Take one by mouth daily VITAMIN E 87047557619 Active Brianda Reis Robin Active OSCAL 500/200 D-3 500-200 MG-UNIT ORAL TABS Take one by mouth 3 times daily, morning, afternoon and evening.] CALCIUM CARBONATE-VITAMIN D 65989900153 Active Brianda KNOTT Active ASPIRIN 81 MG CHEW TAB 1 tablet by mouth daily ASPIRIN 15166880383 Active Brianda Reis Robin Active ADULT ASPIRIN EC LOW STRENGTH 81 MG TBEC TAKE 1 TAB DAILY ASPIRIN 19556984306 No Longer Active Mariaa Whitman PROSTHETIST Active ALENDRONATE SODIUM 70 MG TABS TAKE 1 TAB ONCE A WEEK ALENDRONATE SODIUM 73433811340 No Longer Active Mariaa Whitman PROSTHETIST Active CETIRIZINE HCL 10 MG ORAL TABS 1 po qd PRN Allergies CETIRIZINE HCL 36033307571 Active HEDY Esquivel Active BACTRIM DS 800-160 MG TABS 1 pill by mouth twice daily, for UTI SULFAMETHOXAZOLE-TRIMETHOPRIM 92257496568 No Longer Active Ana Cristina Vallejo MD PhD Active CARVEDILOL 25 MG TABS 1 pill by mouth twice daily for blood pressure CARVEDILOL 37844388413 Active HEDY Esquivel Active SYNTHROID 0.088 MG TAB 1 tablet by mouth daily for thyroid LEVOTHYROXINE SODIUM 36788038242 Active HEDY Esquivel Active AMOXICILLIN 500 MG CAP 1 tab by mouth 3 times daily AMOXICILLIN 75882660129 No Longer Active Alden Kim MD Active CVS VITAMIN D3 1000 UNIT CAPS TAKE 2 CAP DAILY CHOLECALCIFEROL Active Ana Cristina Vallejo MD PhD Active CALCIUM 500 MG TABS TAKE 3 TABS DAILY CALCIUM 89026151320 No Longer Active Mariaa Whitman APRN Active MULTIVITAMINS TABS TAKE 1 TAB DAILY MULTIPLE VITAMIN Active Aneta D Leo POLISHING WHEEL SETTER Active TYLENOL 325 MG TABS NEEDED ACETAMINOPHEN 22812063314 Active Aneta Singh Leo POLISHING WHEEL SETTER Active GLUCOSAMINE-CHONDROITIN 500-400 MG TABS TAKE 1 TAB DAILY GLUCOSAMINE-CHONDROITIN 19125916049 Active Mariaa Whitman APRN Active NORVASC 10 MG TABS TAKE 1 TAB DAILY AMLODIPINE BESYLATE 50264862717 Active HEDY Esquivel Active LOVASTATIN 20 MG TABS 1 PO Q HS FOR CHOLESTEROL LOVASTATIN 74764723096 Active HEDY Esquivel Active RANITIDINE HCL 150 MG CAPS 1 PO Q 12 HRS RANITIDINE HCL 82778908665 Active HEDY Esquivel Active ALENDRONATE SODIUM 70 MG TABS TAKE 1 TAB ONCE A WEEK ALENDRONATE SODIUM 70 MG TABS 928314 ALENDRONATE SODIUM Inactive ADULT ASPIRIN EC LOW STRENGTH 81 MG TBEC TAKE 1 TAB DAILY ADULT ASPIRIN EC LOW STRENGTH 81 MG TBEC 115002 ASPIRIN Inactive ALPRAZOLAM 0.25 MG TAB 1/2-1 tablet by mouth twice a day as needed for stress ALPRAZOLAM 0.25 MG TAB 268252 ALPRAZOLAM Inactive COLACE 100 MG CAP 1 po BID PRN Constipation COLACE 100 MG CAP 7360832 DOCUSATE SODIUM Inactive ADVIL 200 MG TABS TAKE NEEDED ADVIL 200 MG TABS 457220 IBUPROFEN Inactive BENADRYL ALLERGY 25 MG TABS NEEDED BENADRYL ALLERGY 25 MG TABS 1408599 DIPHENHYDRAMINE HCL Inactive FLONASE ALLERGY RELIEF 50 MCG/ACT NASAL SUSP One spray each nostril daily for allergies FLONASE ALLERGY RELIEF 50 MCG/ACT NASAL SUSP 0032768 FLUTICASONE PROPIONATE Inactive MIRALAX ORAL PACK Takes daily prn MIRALAX ORAL PACK 562964 POLYETHYLENE GLYCOL 3350 Inactive AUGMENTIN 875-125 MG TAB 1 po BID x 7 days AUGMENTIN 875-125 MG TAB 105429 AMOXICILLIN-POT CLAVULANATE Inactive HYDROCHLOROTHIAZIDE 12.5 MG CAPS 1 pill by mouth daily, for blood pressure HYDROCHLOROTHIAZIDE 12.5 MG CAPS 196011 HYDROCHLOROTHIAZIDE Inactive AMOXICILLIN 500 MG CAP 1 tab by mouth 3 times daily AMOXICILLIN 500 MG CAP 400425 AMOXICILLIN Inactive BACTRIM DS 800-160 MG TABS 1 pill by mouth twice daily, for UTI BACTRIM DS 800-160 MG TABS 365510 SULFAMETHOXAZOLE-TRIMETHOPRIM Inactive Advance Directives Directive Description Start [...] Panel - Chemistry sodium, serum 130 mmol/L 842-753 8286/10/19 potassium, serum 3.5 mmol/L 3.5-5.2 chloride, serum 92 mmol/L 98-107 carbon dioxide, venous blood 33.6 mmol/L 21.0-32.0 blood glucose 118 mg/dL 65-110 calcium, serum 8.8 mg/dL 8.5-10.1 urea nitrogen, blood 11 mg/dL 7-18 creatinine, serum 1.12 mg/dL 0.55-1.30 Lab Report: CBC-QUEST, COMPREHENSIVE METABOLIC PANEL, LIPID PANEL, Micro ... - Chemistry cholesterol, serum 162 mg/dL 005-206 7738/05/01 HDL cholesterol, serum 68 mg/dL > OR=46 [...] % 11.0-15.0 platelet count 297 THOUSAND/UL 10*3/mm3 002-299 7330/05/01 mean platelet volume 8.9 fL 7.5-12.5 Lab [...] Negative Encounters Code Encounter Date Provider Facility CPT-35561 Level 3 Est. Patient 14:38:15 CDT Jalil Hayes MD [facility] CPT-64916 Level 4 Est. Patient 14:40:54 CDT Bee Rosas [facility] CPT-19963 Level 4 Est. Patient 10:31:15 CDT Jalil Hayes MD [facility]-17383 Level 4 Est. Patient 15:07:54 CDT Mariaa Whitman [facility]-21169 Level 3 Est. Patient 20:45:54 POND SUPERVISOR Mariaa Whitman [facility] CPT-76620 Level 3 Est. Patient 12:16:16 CDT Ana Cristina Vallejo MD [facility]-82568 Level 4 Est. Patient 12:49:21 CDT Ana Cristina Vallejo MD [facility] CPT-51644 Level 4 Est. Patient 23:02:25 CDT [facility]17[facility] Level 4 Est. Patient 19:26:33 POND SUPERVISOR Ana Cristina Vallejo MD PhD [facility] CPT-73709 Level 4 Est. Patient 11:28:14 CDT Ana Cristina Vallejo MD [facility] CPT-29224 Level 4 Est. Patient 15:35:46 POND SUPERVISOR Ana Cristina Vallejo MD PhD [facility] CPT-11169 Level 3 Est. Patient 21:06:39 POND SUPERVISOR Alden Kim MD [facility] CPT-24044 Level 4 Est. Patient 15:30:54 POND SUPERVISOR Ana Cristina Vallejo MD [facility] Procedures Code Procedure Name Date Entry Date Standard Description CPT-TCMM Transitional Care Mgmt-Moderate 14:41:55 CDT CPT-82424 EKG Trac and Interp - XRAY USE ONLY 10:35:11 CDT 09/11 CPT-04189 Chest 2V Frontal and Lat - XRAY USE ONLY 10:35:11 CDT CPT-G0438 Initial Annual Wellness Exam 14:54:07 CDT CPT-G0009 Administration of Pneumococcal Vaccine 14:44:24 CDT CPT-00286 Pneumovax 23 Injection Injectable 25 MCG/0.5ML 14:44:24 CDT CPT-06118 First Vx - Ix admin for Medicare patients 14:44:24 CDT CPT-66189 Fluzone High-Dose Intramuscular Suspension 14:44:20 CDT CPT-08841 BMP - LAB USE ONLY 12:38:06 CDT CPT-91864 Urine Culture - LAB USE ONLY 16:56:33 CDT CPT-TCMM Transitional Care Mgmt-Moderate 18:08:16 CDT CPT-77099 Bone Density 09:14:12 CDT CPT-000 Give Appropriate Flu Vaccine 14:51:52 CDT CPT-12325 Fluzone High Dose (>=65 yrs.) 15:19:23 CDT CPT-82514 Immunization Single Admin 15:19:23 CDT CPT-79619 Prevnar 13 15:40:03 CDT CPT-38476 Administration single or combination vaccine inc oral 15 :40:03 CDT CPT-27585 Prevnar 13 13:55:07 CDT CPT-G0008 Administration of Influenza Virus Vaccine 10:49:51 CDT CPT-02300 Fluzone High-Dose Intramuscular Suspension 10:49:51 CDT CPT-34194 Knee 3V 13:31:37 CDT CPT-14339 Bone Density 09:07:05 POND SUPERVISOR CPT-79710 Nail Avulsion 09:46:05 CDT CPT-82199 Administration single or combination vaccine inc oral 16 :11:54 CDT CPT-30044 Influenza High Dose age 65+ 16:11:54 CDT CPT-72996 Administration single or combination vaccine inc oral 10 :53:15 CDT CPT-80188 Influenza High Dose age 65+ 10:53:15 CDT CPT-14214 Bone Density 14:50:58 POND SUPERVISOR CPT-67261 Administration single or combination vaccine inc oral 15 :41:20 POND SUPERVISOR CPT-16524 Zoster Vaccine (Zostavax) 15:41:20 POND SUPERVISOR CPT-43794 Spec Collection and Handling Fee 11:18:25 POND SUPERVISOR CPT-28598 Administration single or combination vaccine inc oral 11 :14:20 CDT CPT-64234 Influenza High Dose age 65+ 11:14:20 CDT
--- OUTSIDE RECORDS SUMMARY | 2017-07-18 08:34 | XMS REPORT ---
Author Author [facility] Medical Staff Organization [facility] Address [address] [place], [place] [address] Phone [phone] Care Team Providers Care Seat Trimmer Name Role Phone MARCIO AGUAYO, LEANDRO PP [phone] Summary purpose TRANSITION OF CARE AUTO GENERATION [...] Code Type Description Date Performed Performing Physician 41415 CPT-4 PT EVALUATION 07-27-2014 LEANDRO BUCKLEY 57860 CPT-4 ULTRASOUND THERAPY 07-27-2014 LEANDRO BUCKLEY G8978 CPT-4 MOBILITY CURRENT STATUS 07-27-2014 LEANDRO BUCKLEY G8979 CPT-4 MOBILITY GOAL STATUS 07-27-2014 LEANDRO BUCKLEY 91866 CPT-4 ULTRASOUND THERAPY 07-30-2014 LEANDRO BUCKLEY 39530 CPT-4 ULTRASOUND THERAPY 08-04-2014 LEANDRO BUCKLEY 83644 CPT-4 ULTRASOUND THERAPY 08-07-2014 LEANDRO BUCKLEY 55650 CPT-4 ULTRASOUND THERAPY 08-10-2014 LEANDRO BUCKLEY Functional status No functional or [...]
--- OUTSIDE RECORDS SUMMARY | 2017-07-18 08:34 | XMS REPORT | Clinical Summary ---
Author Author Admin, DANDRE Organization [facility] [employer] Address Unknown Phone Unavailable Allergies, Adverse Reactions, Alerts Allergy Name Reaction Description Start Date Severity Status Provider NKDA Critical Active Mariaa Whitman RIVET TESTER Conditions or Problems Problem Name Problem Code Onset Date Status Entry Date Provider Comment Standard Description Annotate ROUTINE GYNECOLOGICAL EXAMINATION V72.31 Resolved Ana Cristina Vallejo MD PhD Routine gynecological examination MENOPAUSE 627.2 Ruled out Ana Cristina Vallejo MD PhD Symptomatic menopausal or female climacteric states MENOPAUSE 627.2 Active Brianda Reis [facility] Symptomatic menopausal or female climacteric [...] tab BID for 7 days CIPROFLOXACIN HCL 66464790634 Active Deepti Junior LPN Active MACROBID 100 MG ORAL CAPS 1 tab BID for 5 days NITROFURANTOIN MONOHYD MACRO 14127473811 No Longer Active Deepti Junior LPN Active HYDROCHLOROTHIAZIDE 12.5 MG CAPS 1 pill by mouth daily HYDROCHLOROTHIAZIDE 48807421736 Active Jalil Hayes MD Active RANITIDINE HCL 150 MG CAPS once nightly RANITIDINE HCL 65765280325 Active Jalil Hayes MD Active BENAZEPRIL HCL 40 MG TABS 1 daily for blood pressure BENAZEPRIL HCL 79785491869 Active Jalil Hayes MD Active HYDROCHLOROTHIAZIDE 12.5 MG CAPS 1 pill by mouth daily, for blood pressure HYDROCHLOROTHIAZIDE 85869188688 No Longer Active Jalil Hayes MD Active AUGMENTIN 875-125 MG TAB 1 po BID x 7 days AMOXICILLIN-POT CLAVULANATE 74241011776 No Longer Active Jalil Hayes MD Active OMEPRAZOLE 40 MG CPDR 1 po q a.m. OMEPRAZOLE 68065529668 Active Peggy Pardo LPN Active MIRALAX ORAL PACK Takes daily prn POLYETHYLENE GLYCOL 3350 21610248379 No Longer Active Peggy Pardo LPN Active FLONASE ALLERGY RELIEF 50 MCG/ACT NASAL SUSP One spray each nostril daily for allergies FLUTICASONE PROPIONATE 75450901500 No Longer Active Peggy Pardo LPN Active BENADRYL ALLERGY 25 MG TABS NEEDED DIPHENHYDRAMINE HCL 16395630163 No Longer Active Peggy Pardo LPN Active ADVIL 200 MG TABS TAKE NEEDED IBUPROFEN 19516495697 No Longer Active Peggy Pardo LPN Active COLACE 100 MG CAP 1 po BID PRN Constipation DOCUSATE SODIUM 89196901696 No Longer Active Deepti Junior LPN Active ALPRAZOLAM 0.25 MG TAB 1/2-1 tablet by mouth twice a day as needed for stress ALPRAZOLAM 14252607457 No Longer Active Deepti Junior LPN Active ALENDRONATE SODIUM 70 MG TABS 1 pill by mouth weekly for osteoporosis ALENDRONATE SODIUM 00005787516 Active Brianda KNOTT Active E-1000 1000 UNIT ORAL CAPS Take one by mouth daily VITAMIN E 40667466462 Active Brianda KNOTT Active OSCAL 500/200 D-3 500-200 MG-UNIT ORAL TABS Take one by mouth 3 times daily, morning, afternoon and evening.] CALCIUM CARBONATE-VITAMIN D 79291956621 Active Brianda KNOTT Active ASPIRIN 81 MG CHEW TAB 1 tablet by mouth daily ASPIRIN 86588164650 Active Brianda Reis Robin Active ADULT ASPIRIN EC LOW STRENGTH 81 MG TBEC TAKE 1 TAB DAILY ASPIRIN 87926871092 No Longer Active Mariaa Whitman APRN Active ALENDRONATE SODIUM 70 MG TABS TAKE 1 TAB ONCE A WEEK ALENDRONATE SODIUM 44523130695 No Longer Active Mariaa Whitman APRN Active CETIRIZINE HCL 10 MG ORAL TABS 1 po qd PRN Allergies CETIRIZINE HCL 45030488535 Active HEDY Esquivel Active BACTRIM DS 800-160 MG TABS 1 pill by mouth twice daily, for UTI SULFAMETHOXAZOLE-TRIMETHOPRIM 87023843448 No Longer Active Ana Cristina Vallejo MD PhD Active CARVEDILOL 25 MG TABS 1 pill by mouth twice daily for blood pressure CARVEDILOL 55843803035 Active HEDY Esquivel Active SYNTHROID 0.088 MG TAB 1 tablet by mouth daily for thyroid LEVOTHYROXINE SODIUM 00402802019 Active HEDY Esquivel Active AMOXICILLIN 500 MG CAP 1 tab by mouth 3 times daily AMOXICILLIN 69325242844 No Longer Active Alden Kim MD Active CVS VITAMIN D3 1000 UNIT CAPS TAKE 2 CAP DAILY CHOLECALCIFEROL Active Ana Cristina Vallejo MD PhD Active CALCIUM 500 MG TABS TAKE 3 TABS DAILY CALCIUM 07756336310 No Longer Active Mariaa Whitman APRN Active MULTIVITAMINS TABS TAKE 1 TAB DAILY MULTIPLE VITAMIN Active Anetajeannie Tavarezum YULIET Active TYLENOL 325 MG TABS NEEDED ACETAMINOPHEN 61807913073 Active Anetajeannie Tavarezum SERIALS LIBRARIAN Active GLUCOSAMINE-CHONDROITIN 500-400 MG TABS TAKE 1 TAB DAILY GLUCOSAMINE-CHONDROITIN 26935422932 Active Mariaa Whitman APRN Active NORVASC 10 MG TABS TAKE 1 TAB DAILY AMLODIPINE BESYLATE 32215428201 Active HEDY Esquivel Active LOVASTATIN 20 MG TABS 1 PO Q HS FOR CHOLESTEROL LOVASTATIN 97488686776 Active MERLINE EsquivelRobin Active ALENDRONATE SODIUM 70 MG TABS TAKE 1 TAB ONCE A WEEK ALENDRONATE SODIUM 70 MG TABS 304983 ALENDRONATE SODIUM Inactive ADULT ASPIRIN EC LOW STRENGTH 81 MG TBEC TAKE 1 TAB DAILY ADULT ASPIRIN EC LOW STRENGTH 81 MG TBEC 825632 ASPIRIN Inactive ALPRAZOLAM 0.25 MG TAB 1/2-1 tablet by mouth twice a day as needed for stress ALPRAZOLAM 0.25 MG TAB 515950 ALPRAZOLAM Inactive COLACE 100 MG CAP 1 po BID PRN Constipation COLACE 100 MG CAP 5543952 DOCUSATE SODIUM Inactive ADVIL 200 MG TABS TAKE NEEDED ADVIL 200 MG TABS 678973 IBUPROFEN Inactive BENADRYL ALLERGY 25 MG TABS NEEDED BENADRYL ALLERGY 25 MG TABS 2982107 DIPHENHYDRAMINE HCL Inactive FLONASE ALLERGY RELIEF 50 MCG/ACT NASAL SUSP One spray each nostril daily for allergies FLONASE ALLERGY RELIEF 50 MCG/ACT NASAL SUSP 0101634 FLUTICASONE PROPIONATE Inactive MIRALAX ORAL PACK Takes daily prn MIRALAX ORAL PACK 244102 POLYETHYLENE GLYCOL 3350 Inactive AUGMENTIN 875-125 MG TAB 1 po BID x 7 days AUGMENTIN 875-125 MG TAB 899468 AMOXICILLIN-POT CLAVULANATE Inactive HYDROCHLOROTHIAZIDE 12.5 MG CAPS 1 pill by mouth daily, for blood pressure HYDROCHLOROTHIAZIDE 12.5 MG CAPS 309435 HYDROCHLOROTHIAZIDE Inactive AMOXICILLIN 500 MG CAP 1 tab by mouth 3 times daily AMOXICILLIN 500 MG CAP 955157 AMOXICILLIN Inactive BACTRIM DS 800-160 MG TABS 1 pill by mouth twice daily, for UTI BACTRIM DS 800-160 MG TABS 820361 SULFAMETHOXAZOLE-TRIMETHOPRIM Inactive MACROBID 100 MG ORAL CAPS 1 tab BID for 5 days MACROBID 100 MG ORAL CAPS 3600192 NITROFURANTOIN MONOHYD MACRO Inactive Advance Directives Directive [...] Panel - Chemistry sodium, serum 130 mmol/L 353-760 8369/10/19 potassium, serum 3.5 mmol/L 3.5-5.2 chloride, serum 92 mmol/L 98-107 carbon dioxide, venous blood 33.6 mmol/L 21.0-32.0 blood glucose 118 mg/dL 65-110 calcium, serum 8.8 mg/dL 8.5-10.1 urea nitrogen, blood 11 mg/dL 7-18 creatinine, serum 1.12 mg/dL 0.55-1.30 sodium, serum 132 mmol/L 735-688 6734/08/09 potassium, serum 4.2 mmol/L 3.5-5.2 chloride, serum 99 mmol/L 98-107 carbon dioxide, venous blood 24.7 mmol/L 21.0-32.0 blood glucose 119 mg/dL 65-110 calcium, serum 8.5 mg/dL 8.5-10.1 urea nitrogen, blood 14 mg/dL 7-18 creatinine, serum 1.16 mg/dL 0.60-1.30 Lab Report: CBC-QUEST, COMPREHENSIVE METABOLIC PANEL, LIPID PANEL, Micro ... - Chemistry cholesterol, serum 162 mg/dL 550-304 1136/05/01 HDL cholesterol, serum 68 mg/dL > OR=46 [...] % 11.0-15.0 platelet count 297 THOUSAND/UL 10*3/mm3 907-127 1953/05/01 mean platelet volume 8.9 fL 7.5-12.5 Lab [...] 5.0-8.5 Encounters Code Encounter Date Provider Facility CPT-72071 Level 3 Est. Patient 13:55:49 CDT Jalil Hayes MD [facility] CPT-67755 Level 3 Est. Patient 14:38:15 CDT Jalil Hayes MD [facility] CPT-96889 Level 4 Est. Patient 14:40:54 CDT Bee Rosas [facility] CPT-01589 Level 4 Est. Patient 10:31:15 CDT Jalil Hayes MD [facility] CPT-38881 Level 4 Est. Patient 15:07:54 CDT Mariaa Whitman [facility] CPT-81976 Level 3 Est. Patient 20:45:54 [employer] Mariaa Whitman [facility] CPT-48138 Level 3 Est. Patient 12:16:16 CDT Ana Cristina Vallejo MD [facility] CPT-01744 Level 4 Est. Patient 12:49:21 CDT Ana Cristina Vallejo MD [facility] CPT-45682 Level 4 Est. Patient 23:02:25 CDT Ana Cristina Vallejo MD [facility] CPT-36274 Level 4 Est. Patient 19:26:33 [employer] Ana Cristina Vallejo MD [facility] CPT-45093 Level 4 Est. Patient 11:28:14 CDT Ana Cristina Vallejo MD [facility] CPT-13633 Level 4 Est. Patient 15:35:46 [employer] Ana Cristina Vallejo MD [facility] CPT-13337 Level 3 Est. Patient 21:06:39 [employer] Alden Kim MD [facility] CPT-04665 Level 4 Est. Patient 15:30:54 [employer] Ana Cristina Vallejo MD [facility] Procedures Code Procedure Name Date Entry Date Standard Description CPT-TCMM Transitional Care Mgmt-Moderate 14:41:55 CDT CPT-13847 EKG Trac and Interp - XRAY USE ONLY 10:35:11 CDT 09/11 CPT-80057 Chest 2V Frontal and Lat - XRAY USE ONLY 10:35:11 CDT CPT-G0438 Initial Annual Wellness Exam 14:54:07 CDT CPT-G0009 Administration of Pneumococcal Vaccine 14:44:24 CDT CPT-25982 Pneumovax 23 Injection Injectable 25 MCG/0.5ML 14:44:24 CDT CPT-63745 First Vx - Ix admin for Medicare patients 14:44:24 CDT CPT-61526 Fluzone High-Dose Intramuscular Suspension 14:44:20 CDT CPT-45883 BMP - LAB USE ONLY 12:38:06 CDT CPT-49511 Urine Culture - LAB USE ONLY 16:56:33 CDT CPT-TCMM Transitional Care Mgmt-Moderate 18:08:16 CDT CPT-19537 Bone Density 09:14:12 CDT CPT-000 Give Appropriate Flu Vaccine 14:51:52 CDT CPT-56492 Fluzone High Dose (>=65 yrs.) 15:19:23 CDT CPT-62760 Immunization Single Admin 15:19:23 CDT CPT-14309 Prevnar 13 15:40:03 CDT CPT-62470 Administration single or combination vaccine inc oral 15 :40:03 CDT CPT-12719 Prevnar 13 13:55:07 CDT CPT-G0008 Administration of Influenza Virus Vaccine 10:49:51 CDT CPT-73840 Fluzone High-Dose Intramuscular Suspension 10:49:51 CDT CPT-58251 Knee 3V 13:31:37 CDT CPT-81510 Bone Density 09:07:05 [employer] CPT-71264 Nail Avulsion 09:46:05 CDT CPT-84918 Administration single or combination vaccine inc oral 16 :11:54 CDT CPT-30866 Influenza High Dose age 65+ 16:11:54 CDT CPT-77744 Administration single or combination vaccine inc oral 10 :53:15 CDT CPT-21278 Influenza High Dose age 65+ 10:53:15 CDT CPT-24364 Bone Density 14:50:58 [employer] CPT-37402 Administration single or combination vaccine inc oral 15 :41:20 [employer] CPT-59408 Zoster Vaccine (Zostavax) 15:41:20 [employer] CPT-20528 Spec Collection and Handling Fee 11:18:25 [employer] CPT-06226 Administration single or combination vaccine inc oral 11 :14:20 CDT CPT-65011 Influenza High Dose age 65+ 11:14:20 CDT
--- OUTSIDE RECORDS SUMMARY | 2017-07-18 08:34 | XMS REPORT ---
Author Author [facility] [employer] [facility] Medical Staff Organization [facility] Address [address] [place], [place] [id number] Phone [phone] Care Team Providers Care Manager Review Name Role Phone MARIAA WHITMAN APRN PP [phone] Summary purpose TRANSITION OF CARE AUTO GENERATION [...] Relevant diagnostic tests and/or laboratory data RESULTS Chemistry 40-08-563453:23:00 Result Normal Range Units Sodium L 128 134-145 mEq/l Potassium L 3.3 3.5-5.1 mEq/l Chloride L 92 98-107 mEq/l CO2 26.2 22-28 mEq/l Glucose 105 70-105 mg/dl BUN 14 7-18 mg/dl Creatinine H 1.03 0.6-1.0 mg/dl Calcium 8.5 8.4-10.2 mg/dl TP - Total Protein 7.0 6.0-8.3 g/dl Albumin 3.6 3.5-5 g/dl Bilirubin - Total 0.3 0.1-1.0 mg/dl AST 21 10-42 IU/L ALT 20 12-65 IU/L ALP 39 25-72 IU/L Osmolality L 257.9 280-300 mOsm/L Albumin/Globulin Ratio 1.1 0-8 Anion GAP 9.8 8-16 BUN/Creatinine Ratio 13.6 10-20 BNP- Brain Natriuretic Peptide 488 0-900 pg/ml Estimated GFR L 51 >=60 mL/min/1.7 Hematology 92-27-002012:23:00 Result Normal Range Units WBC 5.4 4.8-10.8 103/uL RBC L 3.7 4.2-5.4 106/uL HGB L 11.3 12.0-16.0 g/dl HCT L 32.8 36.9-47.0 % MCV 89.4 81-99 FL MCH 30.8 27-31 pg MCHC 34.5 33-37 g/dl RDW 12.8 11.5-15.5 % PLT 273 130-400 103/uL MPV 9.6 7.3-10.4 FL Neutro % 52.3 40-70 % Lymph % 31.5 20-40 % [place] % H 13.5 0-10.0 % Eos % 1.7 0-7.0 % Baso % 0.6 0-2 % Neutro # 2.8 1.5-7.5 103/uL Lymph # 1.7 0.9-4.0 103/uL [place] # 0.7 0-0.8 103/uL Eos # 0.1 0-0.6 103/uL Baso # 0.0 0-0.1 103/uL Reference Lab ([facility]) 09-09-913730:23:00 Result Normal Range Units D-Dimer 357 0-400 ng/ml Cardiac 09-70-108779:23:00 Result Normal Range Units CK 191 26-192 IU/L CKMB 0.5 0-3.6 ng/ml Patient samples may contain heterophilic antibodies that could react with immunoassays to give falsely elevated or depressed results. This Dimension assay has been designed to minimize interference from heterophilic antibodies. Nevertheless, complete elimination of this interference from all patient specimens cannot be guaranteed. A test result that is inconsistent with the clinical picture and patient history should be interpreted with caution. Troponin I < 0.02 0.0-0.4 ng/ml Patient samples may contain heterophilic antibodies that could react in immunoassays to give falsely elevated or depressed results. This Dimension assay has been designed to minimize interference from heterophilic antibodies. Nevertheless, complete elimination of this interference from all patient specimens cannot be guaranteed. A test result that is inconsistent with the clinical picture and patient history should be interpreted with caution. Radiology Results 08-39-940178:38:00 Chest X-Ray - 2 View PACs Image DATE OF EXAM: Nov 11 2015 RAD 0300-CHEST XRAY 2 VIEW : RADIOLOGY REPORT DATE OF SERVICE: 11/11/15 HISTORY: Sudden onset shortness of air CHEST 2 VIEWS 1830 HOURS The lungs are clear. Heart size and pulmonary vessels are normal. There is no pleural effusion. The aorta is atherosclerotic. 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 IMPRESSION: No acute abnormality. MD STEPHANIE Beckford/va11/12/2015 10:12: / 11/12/2015 10:24:50 cc:Mariaa Whitman APRN This document has been electronically Signed by: On: DATE OF EXAM: Nov 11 2015 RAD 0300-CHEST XRAY 2 VIEW : RADIOLOGY REPORT DATE OF SERVICE: 11/11/15 HISTORY: Sudden onset shortness of air CHEST 2 VIEWS 1830 HOURS The lungs are clear. Heart size and pulmonary vessels are normal. There is no pleural effusion. The aorta is atherosclerotic. 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 IMPRESSION: No acute abnormality. MD STEPHANIE Beckford/va11/12/2015 10:12: / 11/12/2015 10:24:50 cc:Mariaa Whitman APRN This document has been electronically Signed by: LISSETTE ALBA MD On: 20152:38P Result Amended on 2015-11-12 at 14:38:38. Previous status was FL. 39-33-315312:23:00 Result Normal Range Units MPV 9.6 7.3-10.4 FL History of procedures Procedure Code Code Type Description Date Performed Performing Physician 52225 CPT-4 ROUTINE VENIPUNCTURE 11-11-2015 GLEN SHIELDS 37149 CPT-4 CHEST X-RAY 11-11-2015 GLEN SHIELDS 30494 CPT-4 COMPREHEN METABOLIC PANEL 11-11-2015 GLEN SHIELDS 55313 CPT-4 ASSAY OF CK (CPK) 11-11-2015 GLEN SHIELDS 68116 CPT-4 CREATINE, MB FRACTION 11-11-2015 GLEN SHIELDS 35283 CPT-4 NATRIURETIC PEPTIDE 11-11-2015 GLEN SHIELDS 62014 CPT-4 ASSAY OF TROPONIN, QUANT 11-11-2015 GLEN SHIELDS 42347 CPT-4 COMPLETE CBC W/AUTO DIFF WBC 11-11-2015 GLEN SHIELDS 50849 CPT-4 FIBRIN DEGRADATION, QUANT 11-11-2015 GLEN ALYSON 58872 CPT-4 EMERGENCY DEPT VISIT 11-11-2015 GLEN ALYSON 22771 CPT-4 EMERGENCY DEPT VISIT 11-11-2015 GLEN ALYSON 86706 CPT-4 ELECTROCARDIOGRAM, TRACING 11-11-2015 GLEN ALYSON 78255 CPT-4 ELECTROCARDIOGRAM REPORT 11-11-2015 GLEN ALYSON Functional status Functional Status Finding Observation Time Diet regular 29-89-630541:05 Abdomen Appearance round 56-14-921790:05 Abdomen soft 30-34-897626:05 Bowel Sounds present 59-29-273631:05 [place]ay no 95-47-343333:05 Urination burning 77-99-144140:05 Quality sym/unlabored 10-85-316620:05 Cough absent 35-18-855963:05 Secretions no :05 Breath Sounds RUL clear 36-77-404100:05 Breath Sounds RML clear 15-69-211085:05 Breath Sounds RLL clear 79-32-405383:05 Breath Sounds VALERIE clear 71-06-020096:05 Breath Sounds LLL clear 23-39-585879:05 Airway natural 30-49-418266:05 Chest Tube no 47-44-223920:05 Oxygen no :40 Temp >100.4 no 01-14-741583:05 Temp <96.8 no 70-93-822135:05 Chills with rigors no 13-41-681090:05 HR > 90bpm no 22-62-541203:05 Respirations > 20 no :05 Systolic <90 no 16-62-035865:05 IV Site Location R AC 58-30-262377:40 IV Type peripheral 40-79-771200:40 IV Site Information discontinued 60-30-053022:40 IV Site Start Attmpt 1 times 33-77-597655:05 IV Site Guilherme 20 85-35-706496:05 IV Site Appearance WNL 28-63-963715:05 IV Site Color clear 88-11-608526:05 IV Site Patent yes :05 Dressing Type occlusive 17-99-185385:05 Nursing Note Pt IV was removed at this time and Pt was given home instructions and pt was off of floor in stable condtion :44 Vital signs Type Value Date Respiration Rate 18breaths per minute :40 Pulse 77beats per minute :40 Oxygen Saturation 100% :40 BP Systolic 150mmHg :40 BP Diastolic 52mmHg :40 Temperature 98.6F :40 Social history No Social History or smoking status observations were recorded for this visit. ( Unknown if ever smoked.) Treatment Plan No treatment plan text is available for this visit. Hospital discharge instructions Dismissal Condition good Disposition on DC home DC Inst/Educ Give yes PNE Vac couple years Flu Vac 2015 Tetanus Vac unk
--- OUTSIDE RECORDS SUMMARY | 2017-07-18 08:35 | XMS REPORT | Clinical Summary ---
Author Author Admin, DANDRE Organization [facility] [employer] Address Unknown Phone Unavailable Allergies, Adverse Reactions, Alerts Allergy Name Reaction Description Start Date Severity Status Provider NKDA Critical Active Mariaa Whitman RN [facility] Conditions or Problems Problem Name Problem Code Onset Date Status Entry Date Provider Comment Standard Description Annotate ROUTINE GYNECOLOGICAL EXAMINATION V72.31 Resolved Ana Cristina Vallejo MD PhD Routine gynecological examination MENOPAUSE 627.2 Ruled out Ana Cristina Vallejo MD PhD Symptomatic menopausal or female climacteric states MENOPAUSE 627.2 Active Brianda Reis [facility] Symptomatic menopausal or female climacteric states DIVERTICULOSIS, [...] 1 daily, for vitamin D deficiency CHOLECALCIFEROL 63170017119 No Longer Active Radha Jones APRN Active CIPRO 250 MG ORAL TABLET 1 tab BID for 7 days CIPROFLOXACIN HCL 24283829693 No Longer Active Radha Jones APRN Active VITAMIN D3 2000 UNIT ORAL CAPSULE 1 capsule po daily CHOLECALCIFEROL 46782889144 Active Anetajeannie Bailey LPN Active EQL ONE DAILY WOMENS ORAL TABLET 1 po daily MULTIPLE VITAMINS- CALCIUM 06332283493 Active Aneta Bailey LOGISTICS MANAGEMENT SPECIALIST Active MACROBID 100 MG ORAL CAPSULE 1 tab BID for 5 days NITROFURANTOIN MONOHYD MACRO 29215951409 No Longer Active Deepti Junior LPN Active HYDROCHLOROTHIAZIDE 12.5 MG ORAL CAPSULE 1 pill by mouth daily HYDROCHLOROTHIAZIDE 90173479837 Active Jalil Hayes MD Active RANITIDINE HCL 150 MG ORAL CAPSULE once nightly RANITIDINE HCL 70090303293 Active Jalil Hayes MD Active BENAZEPRIL HCL 40 MG ORAL TABLET 1 daily for blood pressure BENAZEPRIL HCL 83494194247 Active Jalil Hayes MD Active HYDROCHLOROTHIAZIDE 12.5 MG ORAL CAPSULE 1 pill by mouth daily, for blood pressure HYDROCHLOROTHIAZIDE 31499661111 No Longer Active Jalil Hayes MD Active AUGMENTIN 875-125 MG ORAL TABLET 1 po BID x 7 days AMOXICILLIN-POT CLAVULANATE 22913986962 No Longer Active Jalil Hayes MD Active OMEPRAZOLE 40 MG ORAL CAPSULE DELAYED RELEASE 1 po q a.m. OMEPRAZOLE 83811595011 Active HEDY Esquivel Active MIRALAX ORAL PACKET Takes daily prn POLYETHYLENE GLYCOL 3350 77107627732 No Longer Active Peggy Pardo LPN Active FLONASE ALLERGY RELIEF 50 MCG/ACT NASAL SUSPENSION One spray each nostril daily for allergies FLUTICASONE PROPIONATE 59386010122 No Longer Active Peggy Pardo LPN Active BENADRYL ALLERGY 25 MG ORAL TABLET NEEDED DIPHENHYDRAMINE HCL 76025203983 No Longer Active Peggy Pardo LPN Active ADVIL 200 MG ORAL TABLET TAKE NEEDED IBUPROFEN 39162259694 No Longer Active Peggy Pardo LPN Active COLACE 100 MG ORAL CAPSULE 1 po BID PRN Constipation DOCUSATE SODIUM 16278604121 No Longer Active Deepti Junior LOGISTICS MANAGEMENT SPECIALIST Active ALPRAZOLAM 0.25 MG ORAL TABLET 1/2-1 tablet by mouth twice a day as needed for stress ALPRAZOLAM 55575663626 No Longer Active Deepti Junior YULIET Active ALENDRONATE SODIUM 70 MG ORAL TABLET 1 pill by mouth weekly for osteoporosis ALENDRONATE SODIUM 54475120461 Active Mariaadomenico Whitman APRN Active E-1000 1000 UNIT ORAL CAPSULE Take one by mouth daily VITAMIN E 76188112686 Active Aneta Bailey LPN Active OSCAL 500/200 D-3 500-200 MG-UNIT ORAL TABLET Take one by mouth 3 times daily , morning, afternoon and evening.] CALCIUM CARBONATE-VITAMIN D 65655396860 Active Aneta Bailey LPN Active ASPIRIN 81 MG ORAL TABLET CHEWABLE 1 tablet by mouth daily ASPIRIN 76832795752 Active Aneta Bailey LPN Active ADULT ASPIRIN EC LOW STRENGTH 81 MG ORAL TABLET DELAYED RELEASE TAKE 1 TAB DAILY ASPIRIN 64652958487 No Longer Active Mariaa Laudee LUGO Active ALENDRONATE SODIUM 70 MG ORAL TABLET TAKE 1 TAB ONCE A WEEK 01/20 ALENDRONATE SODIUM 41302086203 No Longer Active Mariaa Laudee LUGO Active CETIRIZINE HCL 10 MG ORAL TABLET 1 po qd PRN Allergies CETIRIZINE HCL 43372386587 Active HEDY Esquivel Active BACTRIM DS 800-160 MG ORAL TABLET 1 pill by mouth twice daily, for UTI 01/29 SULFAMETHOXAZOLE-TRIMETHOPRIM 08367544286 No Longer Active Ana Cristina Vallejo MD PhD Active CARVEDILOL 25 MG ORAL TABLET 1 pill by mouth twice daily for blood pressure CARVEDILOL 50003837126 Active Aneta Bailey LPN Active SYNTHROID 88 MCG ORAL TABLET 1 tablet by mouth daily for thyroid LEVOTHYROXINE SODIUM 22397369962 Active HEDY Esquivel Active AMOXICILLIN 500 MG ORAL CAPSULE 1 tab by mouth 3 times daily 2011 AMOXICILLIN 34963413502 No Longer Active Alden Kim MD Active CALCIUM 500 MG ORAL TABLET TAKE 3 TABS DAILY CALCIUM 84250508828 No Longer Active Mariaa Whitman PARISH Active MULTIVITAMINS TABS TAKE 1 TAB DAILY MULTIPLE VITAMIN No Longer Active Aneta Tavarezum LOGISTICS MANAGEMENT SPECIALIST Active TYLENOL 325 MG ORAL TABLET NEEDED ACETAMINOPHEN 12797800546 Active Aneta Tavarezum LOGISTICS MANAGEMENT SPECIALIST Active GLUCOSAMINE-CHONDROITIN 500-400 MG ORAL TABLET TAKE 1 TAB DAILY GLUCOSAMINE-CHONDROITIN 13768190907 Active Aneta Tavarezum LOGISTICS MANAGEMENT SPECIALIST Active NORVASC 10 MG ORAL TABLET TAKE 1 TAB DAILY AMLODIPINE BESYLATE 81884355420 Active Aneta Tavarezum LOGISTICS MANAGEMENT SPECIALIST Active LOVASTATIN 20 MG ORAL TABLET 1 PO Q HS FOR CHOLESTEROL LOVASTATIN 98482148118 Active HEDY Esquivel Active ALENDRONATE SODIUM 70 MG ORAL TABLET TAKE 1 TAB ONCE A WEEK 01/20 ALENDRONATE SODIUM 70 MG ORAL TABLET 406716 ALENDRONATE SODIUM Inactive ADULT ASPIRIN EC LOW STRENGTH 81 MG ORAL TABLET DELAYED RELEASE TAKE 1 TAB DAILY ADULT ASPIRIN EC LOW STRENGTH 81 MG ORAL TABLET DELAYED RELEASE 684144 ASPIRIN Inactive ALPRAZOLAM 0.25 MG ORAL TABLET 1/2-1 tablet by mouth twice a day as needed for stress ALPRAZOLAM 0.25 MG ORAL TABLET 684129 ALPRAZOLAM Inactive COLACE 100 MG ORAL CAPSULE 1 po BID PRN Constipation COLACE 100 MG ORAL CAPSULE 5436800 DOCUSATE SODIUM Inactive ADVIL 200 MG ORAL TABLET TAKE NEEDED ADVIL 200 MG ORAL TABLET 806036 IBUPROFEN Inactive BENADRYL ALLERGY 25 MG ORAL TABLET NEEDED BENADRYL ALLERGY 25 MG ORAL TABLET 2996656 DIPHENHYDRAMINE HCL Inactive FLONASE ALLERGY RELIEF 50 MCG/ACT NASAL SUSPENSION One spray each nostril daily for allergies FLONASE ALLERGY RELIEF 50 MCG/ACT NASAL SUSPENSION 6367788 FLUTICASONE PROPIONATE Inactive MIRALAX ORAL PACKET Takes daily prn MIRALAX ORAL PACKET 457290 POLYETHYLENE GLYCOL 3350 Inactive AUGMENTIN 875-125 MG ORAL TABLET 1 po BID x 7 days AUGMENTIN 875-125 MG ORAL TABLET 846538 AMOXICILLIN-POT CLAVULANATE Inactive HYDROCHLOROTHIAZIDE 12.5 MG ORAL CAPSULE 1 pill by mouth daily, for blood pressure HYDROCHLOROTHIAZIDE 12.5 MG ORAL CAPSULE HYDROCHLOROTHIAZIDE Inactive CIPRO 250 MG ORAL TABLET 1 tab BID for 7 days CIPRO 250 MG ORAL TABLET 651316 CIPROFLOXACIN HCL Inactive VITAMIN D3 2000 UNIT ORAL TABLET 1 daily, for vitamin D deficiency VITAMIN D3 2000 UNIT ORAL TABLET CHOLECALCIFEROL Inactive AMOXICILLIN 500 MG ORAL CAPSULE 1 tab by mouth 3 times daily 2011 AMOXICILLIN 500 MG ORAL CAPSULE 877436 AMOXICILLIN Inactive BACTRIM DS 800-160 MG ORAL TABLET 1 pill by mouth twice daily, for UTI 01/29 BACTRIM DS 800-160 MG ORAL TABLET 649207 SULFAMETHOXAZOLE- TRIMETHOPRIM Inactive MACROBID 100 MG ORAL CAPSULE 1 tab BID for 5 days MACROBID 100 MG ORAL CAPSULE 7179966 NITROFURANTOIN MONOHYD MACRO Inactive Advance Directives Directive [...] Panel - Chemistry sodium, serum 132 mmol/L 845-908 0250/08/09 potassium, serum 4.2 mmol/L 3.5-5.2 chloride, serum 99 mmol/L 98-107 carbon dioxide, venous blood 24.7 mmol/L 21.0-32.0 blood glucose 119 mg/dL 65-110 calcium, serum 8.5 mg/dL 8.5-10.1 urea nitrogen, blood 14 mg/dL 7-18 creatinine, serum 1.16 mg/dL 0.60-1.30 Lab Report: CBC-QUEST, COMPREHENSIVE METABOLIC PANEL, LIPID PANEL, Micro ... - Chemistry cholesterol, serum 162 mg/dL 799-817 5537/05/01 HDL cholesterol, serum 68 mg/dL > OR=46 [...] % 11.0-15.0 platelet count 297 THOUSAND/UL 10*3/mm3 871-374 8639/05/01 mean platelet volume 8.9 fL 7.5-12.5 Lab [...] 5.0-8.5 Encounters Code Encounter Date Provider Facility [facility]-[id number] Level 3 Est. Patient 13:55:49 CDT Jalil Hayes MD [facility]52455 Level 3 Est. Patient 14:38:15 CDT Jalil Hayes MD [facility]11362 Level 4 Est. Patient 14:40:54 CDT Bee Rosas [facility]-20602 Level 4 Est. Patient 10:31:15 CDT Jalil Hayes MD [facility]15468 Level 4 Est. Patient 15:07:54 CDT Mariaa Whitman [facility]56285 Level 3 Est. 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 Patient 12:16:16 CDT Ana Cristina Vallejo MD [facility]33432 Level 4 Est. Patient 12:49:21 CDT Ana Cristina Vallejo MD [facility]15669 Level 4 Est. Patient 23:02:25 CDT Ana Cristina Vallejo MD [facility]04274 Level 4 Est. Patient 19:26:33 ELECTRICIAN MASTER Ana Cristina Vallejo MD PhD [facility] CPT-29063 Level 4 Est. Patient 11:28:14 CDT Ana Cristina Vallejo MD PhD [facility] CPT-63613 Level 4 Est. Patient 15:35:46 ELECTRICIAN MASTER Ana Cristina Vallejo MD PhD [facility] CPT-20116 Level 3 Est. Patient 21:06:39 ELECTRICIAN MASTER Alden Kim MD [facility] CPT-59458 Level 4 Est. Patient 15:30:54 ELECTRICIAN MASTER Ana Cristina Vallejo MD PhD [facility] Procedures Code Procedure Name Date Entry Date Standard Description CPT-G0439 Subsequent Annual Wellness Exam 11:53:01 ELECTRICIAN MASTER CPT-19182 First Vx - Ix admin for Medicare patients 13:35:01 CDT CPT-00109 Fluzone High-Dose Intramuscular Suspension 13:35:01 CDT CPT-TCMM Transitional Care Mgmt-Moderate 14:41:55 CDT CPT-37236 EKG Trac and Interp - XRAY USE ONLY 10:35:11 CDT 09/11 CPT-81500 Chest 2V Frontal and Lat - XRAY USE ONLY 10:35:11 CDT CPT-G0438 Initial Annual Wellness Exam 14:54:07 CDT CPT-G0009 Administration of Pneumococcal Vaccine 14:44:24 CDT CPT-40447 Pneumovax 23 Injection Injectable 25 MCG/0.5ML 14:44:24 CDT CPT-24928 First Vx - Ix admin for Medicare patients 14:44:24 CDT CPT-01673 Fluzone High-Dose Intramuscular Suspension 14:44:20 CDT CPT-39513 BMP - LAB USE ONLY 12:38:06 CDT CPT-13859 Urine Culture - LAB USE ONLY 16:56:33 CDT CPT-TCMM Transitional Care Mgmt-Moderate 18:08:16 CDT CPT-21756 Bone Density 09:14:12 CDT CPT-000 Give Appropriate Flu Vaccine 14:51:52 CDT CPT-86592 Fluzone High Dose (>=65 yrs.) 15:19:23 CDT CPT-65860 Immunization Single Admin 15:19:23 CDT CPT-74664 Prevnar 13 15:40:03 CDT CPT-56693 Administration single or combination vaccine inc oral 15 :40:03 CDT CPT-75732 Prevnar 13 13:55:07 CDT CPT-G0008 Administration of Influenza Virus Vaccine 10:49:51 CDT CPT-15473 Fluzone High-Dose Intramuscular Suspension 10:49:51 CDT CPT-73893 Knee 3V 13:31:37 CDT CPT-02144 Bone Density 09:07:05 ELECTRICIAN MASTER CPT-09877 Nail Avulsion 09:46:05 CDT CPT-21224 Administration single or combination vaccine inc oral 16 :11:54 CDT CPT-03970 Influenza High Dose age 65+ 16:11:54 CDT CPT-96921 Administration single or combination vaccine inc oral 10 :53:15 CDT CPT-29050 Influenza High Dose age 65+ 10:53:15 CDT CPT-53033 Bone Density 14:50:58 ELECTRICIAN MASTER CPT-37374 Administration single or combination vaccine inc oral 15 :41:20 ELECTRICIAN MASTER CPT-11896 Zoster Vaccine (Zostavax) 15:41:20 ELECTRICIAN MASTER CPT-96156 Spec Collection and Handling Fee 11:18:25 ELECTRICIAN MASTER CPT-55303 Administration single or combination vaccine inc oral 11 :14:20 CDT CPT-86100 Influenza High Dose age 65+ 11:14:20 CDT
--- OUTSIDE RECORDS SUMMARY | 2017-07-18 08:36 | XMS REPORT | Clinical Summary ---
Author Author Admin, DANDRE Organization [facility] [employer] Address Unknown Phone Unavailable Allergies, Adverse Reactions, Alerts Allergy Name Reaction Description Start Date Severity Status Provider NKDA Critical Active Mariaa Whitman DOWEL POINTER Conditions or Problems Problem Name Problem Code Onset Date Status Entry Date Provider Comment Standard Description Annotate ROUTINE GYNECOLOGICAL EXAMINATION V72.31 Resolved Ana Cristina Vallejo MD PhD Routine gynecological examination MENOPAUSE 627.2 Ruled out Ana Cristina Vallejo MD PhD Symptomatic menopausal or female climacteric states MENOPAUSE 627.2 Active Brianda Reis [facility] Symptomatic menopausal or female climacteric states [...] MD Dysuria Forgetfulness 780.99 Active Radha Jones DOWEL POINTER Other general symptoms Unsteady gait 781.2 Active [...] 1 daily for 5 days 05/25 PREDNISONE 76791787282 Active Deepti Junior LPN Active VITAMIN D3 2000 UNIT ORAL TABLET 1 daily, for vitamin D deficiency CHOLECALCIFEROL 15249478335 No Longer Active Radha oJnes APRN Active CIPRO 250 MG ORAL TABLET 1 tab BID for 7 days CIPROFLOXACIN HCL 81736673980 No Longer Active Radha Jones APRN Active VITAMIN D3 2000 UNIT ORAL CAPSULE 1 capsule po daily CHOLECALCIFEROL 46085855634 Active Aneta Tavarezum YULIET Active EQL ONE DAILY WOMENS ORAL TABLET 1 po daily MULTIPLE VITAMINS- CALCIUM 84387785026 Active Aneta Bailey LPN Active MACROBID 100 MG ORAL CAPSULE 1 tab BID for 5 days NITROFURANTOIN MONOHYD MACRO 82080848978 No Longer Active Deepti Junior LPN Active HYDROCHLOROTHIAZIDE 12.5 MG ORAL CAPSULE 1 pill by mouth daily HYDROCHLOROTHIAZIDE 82510426985 Active Jalil Hayes MD Active RANITIDINE HCL 150 MG ORAL CAPSULE once nightly RANITIDINE HCL 58071957655 Active Aneta Bailey LPN Active BENAZEPRIL HCL 40 MG ORAL TABLET 1 daily for blood pressure BENAZEPRIL HCL 89225835168 Active Jalil Hayes MD Active HYDROCHLOROTHIAZIDE 12.5 MG ORAL CAPSULE 1 pill by mouth daily, for blood pressure HYDROCHLOROTHIAZIDE 85006624616 No Longer Active Jalil Hayes MD Active AUGMENTIN 875-125 MG ORAL TABLET 1 po BID x 7 days AMOXICILLIN-POT CLAVULANATE 65269046407 No Longer Active Jalil Hayes MD Active OMEPRAZOLE 40 MG ORAL CAPSULE DELAYED RELEASE 1 po q a.m. OMEPRAZOLE 26534549221 Active HEDY Esquivel Active MIRALAX ORAL PACKET Takes daily prn POLYETHYLENE GLYCOL 3350 52591543591 No Longer Active Peggy Pardo LPN Active FLONASE ALLERGY RELIEF 50 MCG/ACT NASAL SUSPENSION One spray each nostril daily for allergies FLUTICASONE PROPIONATE 73280147058 No Longer Active Peggy Pardo LPN Active BENADRYL ALLERGY 25 MG ORAL TABLET NEEDED DIPHENHYDRAMINE HCL 01597783483 No Longer Active Peggy Pardo LPN Active ADVIL 200 MG ORAL TABLET TAKE NEEDED IBUPROFEN 92588157262 No Longer Active Peggy Pardo LPN Active COLACE 100 MG ORAL CAPSULE 1 po BID PRN Constipation DOCUSATE SODIUM 73893565351 No Longer Active Deepti Junior LPN Active ALPRAZOLAM 0.25 MG ORAL TABLET 1/2-1 tablet by mouth twice a day as needed for stress ALPRAZOLAM 67735881389 No Longer Active Deepti Junior LPN Active ALENDRONATE SODIUM 70 MG ORAL TABLET 1 pill by mouth weekly for osteoporosis ALENDRONATE SODIUM 69907238852 Active Aneta Bailey LPN Active E-1000 1000 UNIT ORAL CAPSULE Take one by mouth daily VITAMIN E 24272109757 Active Aneta Bailey LPN Active OSCAL 500/200 D-3 500-200 MG-UNIT ORAL TABLET Take one by mouth 3 times daily , morning, afternoon and evening.] CALCIUM CARBONATE-VITAMIN D 33839777862 Active Aneta Bailey LPN Active ASPIRIN 81 MG ORAL TABLET CHEWABLE 1 tablet by mouth daily ASPIRIN 16110981613 Active Aneta Bailey LPN Active ADULT ASPIRIN EC LOW STRENGTH 81 MG ORAL TABLET DELAYED RELEASE TAKE 1 TAB DAILY ASPIRIN 51676564007 No Longer Active Mariaa Whitman APRN Active ALENDRONATE SODIUM 70 MG ORAL TABLET TAKE 1 TAB ONCE A WEEK 01/20 ALENDRONATE SODIUM 62074404940 No Longer Active Mariaa Whitman APRN Active CETIRIZINE HCL 10 MG ORAL TABLET 1 po qd PRN Allergies CETIRIZINE HCL 36240913834 Active HEDY Esquivel Active BACTRIM DS 800-160 MG ORAL TABLET 1 pill by mouth twice daily, for UTI 01/29 SULFAMETHOXAZOLE-TRIMETHOPRIM 85480193389 No Longer Active Ana Cristina Vallejo MD PhD Active CARVEDILOL 25 MG ORAL TABLET 1 pill by mouth twice daily for blood pressure CARVEDILOL 18910172834 Active Aneta Tavarezum SECOND CHEF Active SYNTHROID 88 MCG ORAL TABLET 1 tablet by mouth daily for thyroid LEVOTHYROXINE SODIUM 91547621522 Active HEDY Esquivel Active AMOXICILLIN 500 MG ORAL CAPSULE 1 tab by mouth 3 times daily 2011 AMOXICILLIN 13772351537 No Longer Active Alden Kim MD Active CALCIUM 500 MG ORAL TABLET TAKE 3 TABS DAILY CALCIUM 89638005373 No Longer Active Mariaa Yoxuanum DOWEL POINTER Active MULTIVITAMINS TABS TAKE 1 TAB DAILY MULTIPLE VITAMIN No Longer Active Aneta Tavarezum SECOND CHEF Active TYLENOL 325 MG ORAL TABLET NEEDED ACETAMINOPHEN 52356434433 Active Aneta Tavarezum SECOND CHEF Active GLUCOSAMINE-CHONDROITIN 500-400 MG ORAL TABLET TAKE 1 TAB DAILY GLUCOSAMINE-CHONDROITIN 47258448442 Active Aneta Tavarezum SECOND CHEF Active NORVASC 10 MG ORAL TABLET TAKE 1 TAB DAILY AMLODIPINE BESYLATE 50643484112 Active Aneta Tavarezum SECOND CHEF Active LOVASTATIN 20 MG ORAL TABLET 1 PO Q HS FOR CHOLESTEROL LOVASTATIN 59496546656 Active HEDY Esquivel Active ALENDRONATE SODIUM 70 MG ORAL TABLET TAKE 1 TAB ONCE A WEEK 01/20 ALENDRONATE SODIUM 70 MG ORAL TABLET 733546 ALENDRONATE SODIUM Inactive ADULT ASPIRIN EC LOW STRENGTH 81 MG ORAL TABLET DELAYED RELEASE TAKE 1 TAB DAILY ADULT ASPIRIN EC LOW STRENGTH 81 MG ORAL TABLET DELAYED RELEASE 821581 ASPIRIN Inactive ALPRAZOLAM 0.25 MG ORAL TABLET 1/2-1 tablet by mouth twice a day as needed for stress ALPRAZOLAM 0.25 MG ORAL TABLET 996754 ALPRAZOLAM Inactive COLACE 100 MG ORAL CAPSULE 1 po BID PRN Constipation COLACE 100 MG ORAL CAPSULE 8406351 DOCUSATE SODIUM Inactive ADVIL 200 MG ORAL TABLET TAKE NEEDED ADVIL 200 MG ORAL TABLET 945816 IBUPROFEN Inactive BENADRYL ALLERGY 25 MG ORAL TABLET NEEDED BENADRYL ALLERGY 25 MG ORAL TABLET 8102510 DIPHENHYDRAMINE HCL Inactive FLONASE ALLERGY RELIEF 50 MCG/ACT NASAL SUSPENSION One spray each nostril daily for allergies FLONASE ALLERGY RELIEF 50 MCG/ACT NASAL SUSPENSION 9693145 FLUTICASONE PROPIONATE Inactive MIRALAX ORAL PACKET Takes daily prn MIRALAX ORAL PACKET 805962 POLYETHYLENE GLYCOL 3350 Inactive AUGMENTIN 875-125 MG ORAL TABLET 1 po BID x 7 days AUGMENTIN 875-125 MG ORAL TABLET 270243 AMOXICILLIN-POT CLAVULANATE Inactive HYDROCHLOROTHIAZIDE 12.5 MG ORAL CAPSULE 1 pill by mouth daily, for blood pressure HYDROCHLOROTHIAZIDE 12.5 MG ORAL CAPSULE 678753 HYDROCHLOROTHIAZIDE Inactive CIPRO 250 MG ORAL TABLET 1 tab BID for 7 days CIPRO 250 MG ORAL TABLET 821391 CIPROFLOXACIN HCL Inactive VITAMIN D3 2000 UNIT ORAL TABLET 1 daily, for vitamin D deficiency VITAMIN D3 2000 UNIT ORAL TABLET CHOLECALCIFEROL Inactive AMOXICILLIN 500 MG ORAL CAPSULE 1 tab by mouth 3 times daily 2011 AMOXICILLIN 500 MG ORAL CAPSULE 270950 AMOXICILLIN Inactive BACTRIM DS 800-160 MG ORAL TABLET 1 pill by mouth twice daily, for UTI 01/29 BACTRIM DS 800-160 MG ORAL TABLET 034577 SULFAMETHOXAZOLE- TRIMETHOPRIM Inactive MACROBID 100 MG ORAL CAPSULE 1 tab BID for 5 days MACROBID 100 MG ORAL CAPSULE 1554607 NITROFURANTOIN MONOHYD MACRO Inactive Advance Directives Directive [...] Panel - Chemistry sodium, serum 132 mmol/L 505-864 3639/08/09 potassium, serum 4.2 mmol/L 3.5-5.2 chloride, serum 99 mmol/L 98-107 carbon dioxide, venous blood 24.7 mmol/L 21.0-32.0 blood glucose 119 mg/dL 65-110 calcium, serum 8.5 mg/dL 8.5-10.1 urea nitrogen, blood 14 mg/dL 7-18 creatinine, serum 1.16 mg/dL 0.60-1.30 Lab Report: CBC-QUEST, COMPREHENSIVE METABOLIC PANEL, LIPID PANEL, Micro ... - Chemistry cholesterol, serum 162 mg/dL 836-628 4580/05/01 HDL cholesterol, serum 68 mg/dL > OR=46 [...] % 11.0-15.0 platelet count 297 THOUSAND/UL 10*3/mm3 666-164 0643/05/01 mean platelet volume 8.9 fL 7.5-12.5 Lab Report: CBC-QUEST, COMPREHENSIVE METABOLIC PANEL, LIPID PANEL, Micro ... - Urinalysis microalbumin/total urine volume <0.2 mg/dL mg/L microalbumin/creatinine ratio, urine NOTE mcg/mg creat mg/L <30 Lab Report: Erythrocyte Sed Rate, Thyroid Stimulating Hormone (L), Basic ... - Chemistry TSH 1.13 m[iU]/mL 0.36-3.74 sodium, serum 139 mmol/L 481-378 1806/01/10 potassium, serum 3.8 mmol/L 3.5-5.2 chloride, serum [...] 5.0-8.5 Encounters Code Encounter Date Provider Facility CPT-40637 Level 4 Est. Patient 12:35:27 GAS LINE INSTALLER Jalil Hayes MD [facility]-95698 Level 3 Est. Patient 13:55:49 CDT Jalil Hayes MD [facility]84656 Level 3 Est. Patient 14:38:15 CDT Jalil Hayes MD [facility]29460 Level 4 Est. Patient 14:40:54 CDT Bee Rosas [facility] [place]-64078 Level 4 Est. Patient 10:31:15 CDT Jalil Hayes MD [facility]00290 Level 4 Est. Patient 15:07:54 CDT Mariaa Whitman [facility] [place]-13463 Level 3 Est. Patient 20:45:54 GAS LINE INSTALLER Mariaa Whitman [facility]-39457 Level 3 Est. Patient 12:16:16 CDT Ana Cristina Vallejo MD [facility]58864 Level 4 Est. Patient 12:49:21 CDT Ana Cristina Vallejo MD [facility]72180 Level 4 Est. Patient 23:02:25 CDT Ana Cristina Vallejo MD [facility]27993 Level 4 Est. Patient 19:26:33 GAS LINE INSTALLER Ana Cristina Vallejo MD [facility]68545 Level 4 Est. Patient 11:28:14 CDT Ana Cristina Vallejo MD PhD [facility] CPT-12455 Level 4 Est. Patient 15:35:46 GAS LINE INSTALLER Ana Cristina Vallejo MD PhD [facility] CPT-24859 Level 3 Est. Patient 21:06:39 GAS LINE INSTALLER Alden Kim MD [facility] CPT-32757 Level 4 Est. Patient 15:30:54 GAS LINE INSTALLER Ana Cristina Vallejo MD PhD [facility] Procedures Code Procedure Name Date Entry Date Standard Description CPT-G0439 Subsequent Annual Wellness Exam 11:53:01 GAS LINE INSTALLER CPT-86503 First Vx - Ix admin for Medicare patients 13:35:01 CDT CPT-38271 Fluzone High-Dose Intramuscular Suspension 13:35:01 CDT CPT-TCMM Transitional Care Mgmt-Moderate 14:41:55 CDT CPT-53170 EKG Trac and Interp - XRAY USE ONLY 10:35:11 CDT 09/11 CPT-35966 Chest 2V Frontal and Lat - XRAY USE ONLY 10:35:11 CDT CPT-G0438 Initial Annual Wellness Exam 14:54:07 CDT CPT-G0009 Administration of Pneumococcal Vaccine 14:44:24 CDT CPT-41549 Pneumovax 23 Injection Injectable 25 MCG/0.5ML 14:44:24 CDT CPT-81074 First Vx - Ix admin for Medicare patients 14:44:24 CDT CPT-31358 Fluzone High-Dose Intramuscular Suspension 14:44:20 CDT CPT-60423 BMP - LAB USE ONLY 12:38:06 CDT CPT-85069 Urine Culture - LAB USE ONLY 16:56:33 CDT CPT-TCMM Transitional Care Mgmt-Moderate 18:08:16 CDT CPT-32423 Bone Density 09:14:12 CDT CPT-000 Give Appropriate Flu Vaccine 14:51:52 CDT CPT-17864 Fluzone High Dose (>=65 yrs.) 15:19:23 CDT CPT-73179 Immunization Single Admin 15:19:23 CDT CPT-69978 Prevnar 13 15:40:03 CDT CPT-82564 Administration single or combination vaccine inc oral 15 :40:03 CDT CPT-59775 Prevnar 13 13:55:07 CDT CPT-G0008 Administration of Influenza Virus Vaccine 10:49:51 CDT CPT-68556 Fluzone High-Dose Intramuscular Suspension 10:49:51 CDT CPT-52885 Knee 3V 13:31:37 CDT CPT-82198 Bone Density 09:07:05 GAS LINE INSTALLER CPT-41279 Nail Avulsion 09:46:05 CDT CPT-85001 Administration single or combination vaccine inc oral 16 :11:54 CDT CPT-60109 Influenza High Dose age 65+ 16:11:54 CDT CPT-82706 Administration single or combination vaccine inc oral 10 :53:15 CDT CPT-45352 Influenza High Dose age 65+ 10:53:15 CDT CPT-78284 Bone Density 14:50:58 GAS LINE INSTALLER CPT-05100 Administration single or combination vaccine inc oral 15 :41:20 GAS LINE INSTALLER CPT-33901 Zoster Vaccine (Zostavax) 15:41:20 GAS LINE INSTALLER CPT-32916 Spec Collection and Handling Fee 11:18:25 GAS LINE INSTALLER CPT-76186 Administration single or combination vaccine inc oral 11 :14:20 CDT CPT-08901 Influenza High Dose age 65+ 11:14:20 CDT
--- OUTSIDE RECORDS SUMMARY | 2017-07-18 08:36 | XMS REPORT | Clinical Summary ---
Author Author Admin, QIE Organization [employer] Address Unknown Phone Unavailable Allergies, Adverse Reactions, [...] PhD Urinary tract infection, site not specified INGROWN TOENAIL, INFECTED ICD-703.0 Inactive Ana Cristina Vallejo MD PhD INGROWN TOENAIL ICD-703.0 Inactive Ana Cristina Vallejo MD PhD HEALTH SCREENING ICD-V70.0 Inactive Ana Cristina Vallejo MD PhD ROUTINE GYNECOLOGICAL EXAMINATION ICD-V72.31 Inactive Ana Cristina Vallejo MD PhD Medication List Medication Instructions Start Date Stop Date Generic Name NDC Status Provider Patient Instruction FLONASE ALLERGY RELIEF 50 MCG/ACT NASAL SUSP One spray each nostril daily for allergies FLUTICASONE PROPIONATE 49015707261 Active Mariaa Antonette SWARTZN Active CETIRIZINE HCL 10 MG ORAL TABS 1 po qd PRN Allergies CETIRIZINE HCL 84856894658 Active Mariaa Yokum NEUROLOGY DIRECTOR Active BACTRIM DS 800-160 MG TABS 1 pill by mouth twice daily, for UTI SULFAMETHOXAZOLE-TRIMETHOPRIM 87553747406 No Longer Active Ana Cristina Vallejo MD PhD Active HYDROCHLOROTHIAZIDE 12.5 MG CAPS 1 pill by mouth daily, for blood pressure HYDROCHLOROTHIAZIDE 69709634531 Active Mariaa Antonette NEUROLOGY DIRECTOR Active CARVEDILOL 25 MG TABS 1 pill by mouth twice daily for blood pressure CARVEDILOL 80266812976 Active Mariaa Lauxuanbeckie NEUROLOGY DIRECTOR Active SYNTHROID 0.088 MG TAB 1 tablet by mouth daily for thyroid LEVOTHYROXINE SODIUM 07896469810 Active Mariaa Antonette SWARTZN Active AMOXICILLIN 500 MG CAP 1 tab by mouth 3 times daily AMOXICILLIN 73052371769 No Longer Active Alden Kim MD Active [facility] VITAMIN D3 1000 UNIT CAPS TAKE 2 CAP DAILY CHOLECALCIFEROL 98284855323 Active Ana Cristina Vallejo MD PhD Active CALCIUM 500 MG TABS TAKE 3 TABS DAILY CALCIUM 52482016748 Active Aneta Tavarezum FORGE SHOP MACHINE REPAIRER Active MULTIVITAMINS TABS TAKE 1 TAB DAILY MULTIPLE VITAMIN 93998952851 Active Aneta Tavarezum FORGE SHOP MACHINE REPAIRER Active BENADRYL ALLERGY 25 MG TABS NEEDED DIPHENHYDRAMINE HCL 39660486052 Active Aneta Tavarezum FORGE SHOP MACHINE REPAIRER Active TYLENOL 325 MG TABS NEEDED ACETAMINOPHEN 53028219346 Active Aneta Tavarezum FORGE SHOP MACHINE REPAIRER Active ADVIL 200 MG TABS TAKE NEEDED IBUPROFEN 07999185086 Active Aneta Tavarezum FORGE SHOP MACHINE REPAIRER Active ADULT ASPIRIN EC LOW STRENGTH 81 MG TBEC TAKE 1 TAB DAILY ASPIRIN 78929583172 Active Aneta Tavarezum FORGE SHOP MACHINE REPAIRER Active VITAMIN E NATURAL 400 UNIT CAPS TAKE 1 CAP DAILY VITAMIN E 09683104376 Active Aneta Tavarezum FORGE SHOP MACHINE REPAIRER Active GLUCOSAMINE-CHONDROITIN 500-400 MG TABS TAKE 1 TAB DAILY GLUCOSAMINE-CHONDROITIN 49564513333 Active Aneta Tavarezum FORGE SHOP MACHINE REPAIRER Active NORVASC 10 MG TABS TAKE 1 TAB DAILY AMLODIPINE BESYLATE 38539919079 Active Mariaa Whitman NEUROLOGY DIRECTOR Active BENAZEPRIL HCL 40 MG TABS 1 PO BID BENAZEPRIL HCL 89471860624 Active Mariaa Whitman NEUROLOGY DIRECTOR Active LOVASTATIN 20 MG TABS 1 PO Q HS FOR CHOLESTEROL LOVASTATIN 41538581789 Active Mariaa Whitman NEUROLOGY DIRECTOR Active RANITIDINE HCL 150 MG CAPS 1 PO Q 12 HRS RANITIDINE HCL 58710575611 Active Mariaa Whitman NEUROLOGY DIRECTOR Active ALENDRONATE SODIUM 70 MG TABS TAKE 1 TAB ONCE A WEEK ALENDRONATE SODIUM 35280343912 Active Mariaa Whitman NEUROLOGY DIRECTOR Active AMOXICILLIN 500 MG CAP 1 tab by mouth 3 times daily AMOXICILLIN 500 MG CAP 948247 AMOXICILLIN Inactive BACTRIM DS 800-160 MG TABS 1 pill by mouth twice daily, for UTI BACTRIM DS 800-160 MG TABS 814201 SULFAMETHOXAZOLE-TRIMETHOPRIM Inactive Immunizations Vaccine Administration Date Value [...] 1.41 ng/dL 0.76-1.46 cholesterol, serum 166 mg/dL 426-984 9311/04/20 triglyceride, serum, fasting 68 mg/dL 30-200 HDL cholesterol, serum 88 mg/dL 32-96 LDL cholesterol, serum 64 mg/dL 0-130 sodium, serum 132 mmol/L 195-949 0530/04/20 carbon dioxide, venous blood 31.3 mmol/L 21.0-32.0 [...] Colorless;Lightyellow;Straw;Yellow urobilinogen, urine, semiquantitative (dipstick) 0.2 Normal bilirubin, urine Negative Negative ketones, urine, by test strip Negative Negative glucose, urine, semiquantitative Negative Negative leukocyte esterase, urine, by dipstick 1+ Negative nitrite, urine, semiquantitative Negative Negative Encounters Code Encounter Date Provider Facility CPT-[id number] Level 4 Est. Patient 15:07:54 CDT Mariaa Whitman [facility] CPT-60717 Level 3 Est. Patient 20:45:54 CIVIL PROCESS SERVER Mariaa Whitman [facility] CPT-64750 Level 3 Est. Patient 12:16:16 CDT Ana Cristina Vallejo MD PhD [facility] CPT-96743 Level 4 Est. Patient 12:49:21 CDT Ana Cristina Vallejo MD [facility] CPT-69442 Level 4 Est. Patient 23:02:25 CDT Ana Cristina Vallejo MD [facility] CPT-77566 Level 4 Est. Patient 19:26:33 CIVIL PROCESS SERVER Ana Cristina Vallejo MD [facility] CPT-36333 Level 4 Est. Patient 11:28:14 CDT Ana Cristina Vallejo MD [facility] CPT-39013 Level 4 Est. Patient 15:35:46 CIVIL PROCESS SERVER Ana Cristina Vallejo MD [facility] CPT-55595 Level 3 Est. Patient 21:06:39 CIVIL PROCESS SERVER Alden Kim MD [facility] CPT-75872 Level 4 Est. Patient 15:30:54 CIVIL PROCESS SERVER Ana Cristina Vallejo MD [facility] Procedures Code Procedure Name Date Entry Date Standard Description CPT-58585 Bone Density 09:14:12 CDT CPT-000 Give Appropriate Flu Vaccine 14:51:52 CDT CPT-37400 Fluzone High Dose (>=65 yrs.) 15:19:23 CDT CPT-29544 Immunization Single Admin 15:19:23 CDT CPT-02865 Prevnar 13 15:40:03 CDT CPT-17034 Administration single or combination vaccine inc oral 15 :40:03 CDT CPT-01580 Prevnar 13 13:55:07 CDT CPT-G0008 Administration of Influenza Virus Vaccine 10:49:51 CDT CPT-19837 Fluzone High-Dose Intramuscular Suspension 10:49:51 CDT CPT-45962 Knee 3V 13:31:37 CDT CPT-38434 Bone Density 09:07:05 CIVIL PROCESS SERVER CPT-82077 Nail Avulsion 09:46:05 CDT CPT-04844 Administration single or combination vaccine inc oral 16 :11:54 CDT CPT-75302 Influenza High Dose age 65+ 16:11:54 CDT CPT-75757 Administration single or combination vaccine inc oral 10 :53:15 CDT CPT-87282 Influenza High Dose age 65+ 10:53:15 CDT CPT-52602 Bone Density 14:50:58 CIVIL PROCESS SERVER CPT-46660 Administration single or combination vaccine inc oral 15 :41:20 CIVIL PROCESS SERVER CPT-37443 Zoster Vaccine (Zostavax) 15:41:20 CIVIL PROCESS SERVER CPT-99854 Spec Collection and Handling Fee 11:18:25 CIVIL PROCESS SERVER CPT-47533 Administration single or combination vaccine inc oral 11 :14:20 CDT CPT-17353 Influenza High Dose age 65+ 11:14:20 CDT
--- OUTSIDE RECORDS SUMMARY | 2017-07-18 08:37 | XMS REPORT | Clinical Summary ---
Author Author Admin, DANDRE Organization [facility] [employer] Address Unknown Phone Unavailable Allergies, Adverse Reactions, Alerts Allergy Name Reaction Description Start Date Severity Status Provider NKDA Critical Active Mariaa Whitman PAVER OPERATOR Conditions or Problems Problem Name Problem Code Onset Date Status Entry Date Provider Comment Standard Description Annotate ROUTINE GYNECOLOGICAL EXAMINATION V72.31 Resolved Ana Cristina Vallejo MD PhD Routine gynecological examination MENOPAUSE 627.2 Ruled out Ana Cristina Vallejo MD PhD Symptomatic menopausal or female climacteric states MENOPAUSE 627.2 Active Brianda Reis [facility] Symptomatic menopausal or female climacteric [...] Instructions Start Date Stop Date Generic Name [facility] Status Provider Patient Instruction COLACE 100 MG CAP 1 po BID PRN Constipation DOCUSATE SODIUM 39188965243 No Longer Active Deepti Madl COMPUTER AIDED DESIGN TECHNICIAN Active ALPRAZOLAM 0.25 MG TAB 1/2-1 tablet by mouth twice a day as needed for stress ALPRAZOLAM 33341305318 No Longer Active Deepti Madl COMPUTER AIDED DESIGN TECHNICIAN Active MIRALAX ORAL PACK Takes daily prn POLYETHYLENE GLYCOL 3350 24103833819 Active Mariaa Whitman APRN Active ALENDRONATE SODIUM 70 MG TABS 1 pill by mouth weekly for osteoporosis ALENDRONATE SODIUM 66980695605 Active Brianda Reis [facility] Active E-1000 1000 UNIT ORAL CAPS Take one by mouth daily VITAMIN E 10443683407 Active Brianda Reis [facility] Active OSCAL 500/200 D-3 500-200 MG-UNIT ORAL TABS Take one by mouth 3 times daily, morning, afternoon and evening.] CALCIUM CARBONATE-VITAMIN D 54395195375 Active Brianda [facility] Active ASPIRIN 81 MG CHEW TAB 1 tablet by mouth daily ASPIRIN 25528303916 Active Brianda [facility] Active ADULT ASPIRIN EC LOW STRENGTH 81 MG TBEC TAKE 1 TAB DAILY ASPIRIN 19955180463 No Longer Active Mariaa Whitman APRN Active ALENDRONATE SODIUM 70 MG TABS TAKE 1 TAB ONCE A WEEK ALENDRONATE SODIUM 62910224712 No Longer Active Mariaa Whitman PAVER OPERATOR Active FLONASE ALLERGY RELIEF 50 MCG/ACT NASAL SUSP One spray each nostril daily for allergies FLUTICASONE PROPIONATE 69299196376 Active Mariaa Whitman PAVER OPERATOR Active CETIRIZINE HCL 10 MG ORAL TABS 1 po qd PRN Allergies CETIRIZINE HCL 74428520474 Active Mariaa Whitman APRN Active BACTRIM DS 800-160 MG TABS 1 pill by mouth twice daily, for UTI SULFAMETHOXAZOLE-TRIMETHOPRIM 79325984303 No Longer Active Ana Cristina Vallejo MD PhD Active HYDROCHLOROTHIAZIDE 12.5 MG CAPS 1 pill by mouth daily, for blood pressure HYDROCHLOROTHIAZIDE 78476354383 Active Mariaa Whitman APRN Active CARVEDILOL 25 MG TABS 1 pill by mouth twice daily for blood pressure CARVEDILOL 21746627610 Active Mariaa Whitman APRN Active SYNTHROID 0.088 MG TAB 1 tablet by mouth daily for thyroid LEVOTHYROXINE SODIUM 51725458547 Active HEDY Esquivel Active AMOXICILLIN 500 MG CAP 1 tab by mouth 3 times daily AMOXICILLIN 29896229704 No Longer Active Alden Kim MD Active [facility] VITAMIN D3 1000 UNIT CAPS TAKE 2 CAP DAILY CHOLECALCIFEROL Active Ana Cristina Vallejo MD PhD Active CALCIUM 500 MG TABS TAKE 3 TABS DAILY CALCIUM 30469108834 No Longer Active Mariaa Whitman APRN Active MULTIVITAMINS TABS TAKE 1 TAB DAILY MULTIPLE VITAMIN Active Aneta Tavarezum COMPUTER AIDED DESIGN TECHNICIAN Active BENADRYL ALLERGY 25 MG TABS NEEDED DIPHENHYDRAMINE HCL 22204576491 Active Aneta Singh Leo COMPUTER AIDED DESIGN TECHNICIAN Active TYLENOL 325 MG TABS NEEDED ACETAMINOPHEN 34508430367 Active Aneta Tavarezum COMPUTER AIDED DESIGN TECHNICIAN Active ADVIL 200 MG TABS TAKE NEEDED IBUPROFEN 11045246417 Active Aneta Tavarezum COMPUTER AIDED DESIGN TECHNICIAN Active GLUCOSAMINE-CHONDROITIN 500-400 MG TABS TAKE 1 TAB DAILY GLUCOSAMINE-CHONDROITIN 86543010568 Active Mariaa Whitman APRN Active NORVASC 10 MG TABS TAKE 1 TAB DAILY AMLODIPINE BESYLATE 34305009387 Active Mariaa Whitman APRN Active BENAZEPRIL HCL 40 MG TABS 1 PO BID BENAZEPRIL HCL 80677630906 Active HEDY Esquivel Active LOVASTATIN 20 MG TABS 1 PO Q HS FOR CHOLESTEROL LOVASTATIN 30306807881 Active HEDY Esquivel Active RANITIDINE HCL 150 MG CAPS 1 PO Q 12 HRS RANITIDINE HCL 18607986943 Active Mariaa Whitman PAVER OPERATOR Active ALENDRONATE SODIUM 70 MG TABS TAKE 1 TAB ONCE A WEEK ALENDRONATE SODIUM 70 MG TABS 990683 ALENDRONATE SODIUM Inactive ADULT ASPIRIN EC LOW STRENGTH 81 MG TBEC TAKE 1 TAB DAILY ADULT ASPIRIN EC LOW STRENGTH 81 MG TBEC 726158 ASPIRIN Inactive ALPRAZOLAM 0.25 MG TAB 1/2-1 tablet by mouth twice a day as needed for stress ALPRAZOLAM 0.25 MG TAB 165170 ALPRAZOLAM Inactive COLACE 100 MG CAP 1 po BID PRN Constipation COLACE 100 MG CAP 9362678 DOCUSATE SODIUM Inactive AMOXICILLIN 500 MG CAP 1 tab by mouth 3 times daily AMOXICILLIN 500 MG CAP 162247 AMOXICILLIN Inactive BACTRIM DS 800-160 MG TABS 1 pill by mouth twice daily, for UTI BACTRIM DS 800-160 MG TABS 969355 SULFAMETHOXAZOLE-TRIMETHOPRIM Inactive Advance Directives Directive Description Start [...] Panel - Chemistry sodium, serum 130 mmol/L 806-909 4969/10/19 potassium, serum 3.5 mmol/L 3.5-5.2 chloride, serum [...] 5.0-8.5 Encounters Code Encounter Date Provider Facility [facility]-[id number] Level 4 Est. Patient 10:31:15 CDT Jalil Haeys MD [facility] [id number] Level 4 Est. Patient 15:07:54 CDT Mariaa Whitman [facility] Level 3 Est. Patient 20:45:54 LICENSING WORKER Mariaa Whitman [facility] [id number] Level 3 Est. Patient 12:16:16 CDT Ana Cristina Vallejo MD [facility]-88339 Level 4 Est. Patient 12:49:21 CDT Ana Cristina Vallejo MD [facility]80970 Level 4 Est. Patient 23:02:25 CDT Ana Cristina Vallejo MD [facility]24880 Level 4 Est. Patient 19:26:33 LICENSING WORKER Ana Cristina Vallejo MD [facility]21941 Level 4 Est. Patient 11:28:14 CDT Ana Cristina Vallejo MD [facility]31491 Level 4 Est. Patient 15:35:46 LICENSING WORKER Ana Cristina Vallejo MD [facility]30560 Level 3 Est. Patient 21:06:39 LICENSING WORKER Alden Kim MD [facility]224 Level 4 Est. Patient 15:30:54 LICENSING WORKER Ana Cristina Vallejo MD PhD [facility] Procedures Code Procedure Name Date Entry Date Standard Description CPT-03626 EKG Trac and Interp - XRAY USE ONLY 10:35:11 CDT 09/11 CPT-56491 Chest 2V Frontal and Lat - XRAY USE ONLY 10:35:11 CDT CPT-G0438 Initial Annual Wellness Exam 14:54:07 CDT CPT-G0009 Administration of Pneumococcal Vaccine 14:44:24 CDT CPT-70622 Pneumovax 23 Injection Injectable 25 MCG/0.5ML 14:44:24 CDT CPT-65306 First Vx - Ix admin for Medicare patients 14:44:24 CDT CPT-92294 Fluzone High-Dose Intramuscular Suspension 14:44:20 CDT CPT-60877 BMP - LAB USE ONLY 12:38:06 CDT CPT-57676 Urine Culture - LAB USE ONLY 16:56:33 CDT CPT-TCMM Transitional Care Mgmt-Moderate 18:08:16 CDT CPT-81543 Bone Density 09:14:12 CDT CPT-000 Give Appropriate Flu Vaccine 14:51:52 CDT CPT-83851 Fluzone High Dose (>=65 yrs.) 15:19:23 CDT CPT-02899 Immunization Single Admin 15:19:23 CDT CPT-60696 Prevnar 13 15:40:03 CDT CPT-64653 Administration single or combination vaccine inc oral 15 :40:03 CDT CPT-39704 Prevnar 13 13:55:07 CDT CPT-G0008 Administration of Influenza Virus Vaccine 10:49:51 CDT CPT-74835 Fluzone High-Dose Intramuscular Suspension 10:49:51 CDT CPT-26167 Knee 3V 13:31:37 CDT CPT-85002 Bone Density 09:07:05 LICENSING WORKER CPT-05032 Nail Avulsion 09:46:05 CDT CPT-59493 Administration single or combination vaccine inc oral 16 :11:54 CDT CPT-40636 Influenza High Dose age 65+ 16:11:54 CDT CPT-03649 Administration single or combination vaccine inc oral 10 :53:15 CDT CPT-03721 Influenza High Dose age 65+ 10:53:15 CDT CPT-63321 Bone Density 14:50:58 LICENSING WORKER CPT-94073 Administration single or combination vaccine inc oral 15 :41:20 LICENSING WORKER CPT-52345 Zoster Vaccine (Zostavax) 15:41:20 LICENSING WORKER CPT-47612 Spec Collection and Handling Fee 11:18:25 LICENSING WORKER CPT-15686 Administration single or combination vaccine inc oral 11 :14:20 CDT CPT-71345 Influenza High Dose age 65+ 11:14:20 CDT
--- OUTSIDE RECORDS SUMMARY | 2017-07-18 08:38 | XMS REPORT | Clinical Summary ---
Author Author Admin, DANDRE Organization [facility] [employer] Address Unknown Phone Unavailable Allergies, Adverse Reactions, Alerts Allergy Name Reaction Description Start Date Severity Status Provider NKDA Critical Active Mariaa Whitman SUPERINTENDENT [employer] WELL [employer] Conditions or Problems Problem Name Problem Code Onset Date Status Entry Date Provider Comment Standard Description Annotate ROUTINE GYNECOLOGICAL EXAMINATION V72.31 Resolved Ana Cristina Vallejo MD PhD Routine gynecological examination MENOPAUSE 627.2 Ruled out Ana Cristina Vallejo MD PhD Symptomatic menopausal or female climacteric states MENOPAUSE 627.2 Active Brianda Reis [facility] Symptomatic menopausal or female climacteric states [...] 1 po BID PRN Constipation DOCUSATE SODIUM 31467708344 No Longer Active Deepti Madl CEO Active ALPRAZOLAM 0.25 MG TAB 1/2-1 tablet by mouth twice a day as needed for stress ALPRAZOLAM 64619911624 No Longer Active Deepti Madl CEO Active MIRALAX ORAL PACK Takes daily prn POLYETHYLENE GLYCOL 3350 47498130099 Active Mariaa Yokum SUPERINTENDENT OIL WELL SERVICES Active ALENDRONATE SODIUM 70 MG TABS 1 pill by mouth weekly for osteoporosis ALENDRONATE SODIUM 19253432421 Active Brianda Reis [facility] Active E-1000 1000 UNIT ORAL CAPS Take one by mouth daily VITAMIN E 49973108634 Active Brianda Reis [facility] Active OSCAL 500/200 D-3 500-200 MG-UNIT ORAL TABS Take one by mouth 3 times daily, morning, afternoon and evening.] CALCIUM CARBONATE-VITAMIN D 31435747713 Active Brianda Reis [facility] Active ASPIRIN 81 MG CHEW TAB 1 tablet by mouth daily ASPIRIN 70897669951 Active Brianda Reis [facility] Active ADULT ASPIRIN EC LOW STRENGTH 81 MG TBEC TAKE 1 TAB DAILY ASPIRIN 37964674883 No Longer Active Mariaa Yokum SUPERINTENDENT OIL WELL SERVICES Active ALENDRONATE SODIUM 70 MG TABS TAKE 1 TAB ONCE A WEEK ALENDRONATE SODIUM 28764835685 No Longer Active Mariaa Yokum [employer]PERINTENDENT [employer] Active FLONASE ALLERGY RELIEF 50 MCG/ACT NASAL SUSP One spray each nostril daily for allergies FLUTICASONE PROPIONATE 15691212517 Active Mariaa Whitman APRN Active CETIRIZINE HCL 10 MG ORAL TABS 1 po qd PRN Allergies CETIRIZINE HCL 92125677280 Active HEDY Esquivel Active BACTRIM DS 800-160 MG TABS 1 pill by mouth twice daily, for UTI SULFAMETHOXAZOLE-TRIMETHOPRIM 70930050766 No Longer Active Ana Cristina Vallejo MD PhD Active HYDROCHLOROTHIAZIDE 12.5 MG CAPS 1 pill by mouth daily, for blood pressure HYDROCHLOROTHIAZIDE 61271568953 Active HEDY Esquivel Active CARVEDILOL 25 MG TABS 1 pill by mouth twice daily for blood pressure CARVEDILOL 59646498568 Active HEDY Esquivel Active SYNTHROID 0.088 MG TAB 1 tablet by mouth daily for thyroid LEVOTHYROXINE SODIUM 94877106361 Active HEDY Esquivel Active AMOXICILLIN 500 MG CAP 1 tab by mouth 3 times daily AMOXICILLIN 35893411117 No Longer Active Alden Kim MD Active [facility] VITAMIN D3 1000 UNIT CAPS TAKE 2 CAP DAILY CHOLECALCIFEROL Active Ana Cristina Vallejo MD PhD Active CALCIUM 500 MG TABS TAKE 3 TABS DAILY CALCIUM 41976967131 No Longer Active Mariaa Whitman APRN Active MULTIVITAMINS TABS TAKE 1 TAB DAILY MULTIPLE VITAMIN Active Anetajeannie Tavarezum CEO Active BENADRYL ALLERGY 25 MG TABS NEEDED DIPHENHYDRAMINE HCL 54254689500 Active Aneta Singh Leo CEO Active TYLENOL 325 MG TABS NEEDED ACETAMINOPHEN 82118896617 Active Aneta Singh Leo CEO Active ADVIL 200 MG TABS TAKE NEEDED IBUPROFEN 96780131123 Active Aneta Singh Leo CEO Active GLUCOSAMINE-CHONDROITIN 500-400 MG TABS TAKE 1 TAB DAILY GLUCOSAMINE-CHONDROITIN 77559181710 Active Mariaa Whitman APRN Active NORVASC 10 MG TABS TAKE 1 TAB DAILY AMLODIPINE BESYLATE 44949698206 Active HEDY Esquivel Active BENAZEPRIL HCL 40 MG TABS 1 PO BID BENAZEPRIL HCL 40397298752 Active HEDY Esquivel Active LOVASTATIN 20 MG TABS 1 PO Q HS FOR CHOLESTEROL LOVASTATIN 07155676786 Active HEDY Esquivel Active RANITIDINE HCL 150 MG CAPS 1 PO Q 12 HRS RANITIDINE HCL 45668439412 Active HEDY Esquivel Active ALENDRONATE SODIUM 70 MG TABS TAKE 1 TAB ONCE A WEEK ALENDRONATE SODIUM 70 MG TABS 530367 ALENDRONATE SODIUM Inactive ADULT ASPIRIN EC LOW STRENGTH 81 MG TBEC TAKE 1 TAB DAILY ADULT ASPIRIN EC LOW STRENGTH 81 MG TBEC 539401 ASPIRIN Inactive ALPRAZOLAM 0.25 MG TAB 1/2-1 tablet by mouth twice a day as needed for stress ALPRAZOLAM 0.25 MG TAB 540847 ALPRAZOLAM Inactive COLACE 100 MG CAP 1 po BID PRN Constipation COLACE 100 MG CAP 7846298 DOCUSATE SODIUM Inactive AMOXICILLIN 500 MG CAP 1 tab by mouth 3 times daily AMOXICILLIN 500 MG CAP 335984 AMOXICILLIN Inactive BACTRIM DS 800-160 MG TABS 1 pill by mouth twice daily, for UTI BACTRIM DS 800-160 MG TABS 777405 SULFAMETHOXAZOLE-TRIMETHOPRIM Inactive Advance Directives Directive Description Start [...] Panel - Chemistry sodium, serum 130 mmol/L 709-610 5358/10/19 urea nitrogen, blood 11 mg/dL 7-18 creatinine, serum 1.12 mg/dL 0.55-1.30 potassium, serum 3.5 mmol/L 3.5-5.2 chloride, serum 92 mmol/L 98-107 carbon dioxide, venous blood 33.6 mmol/L 21.0-32.0 blood glucose 118 mg/dL 65-110 calcium, serum 8.8 mg/dL 8.5-10.1 Lab Report: CBC-QUEST, COMPREHENSIVE METABOLIC PANEL, LIPID PANEL, Micro ... - Chemistry cholesterol, serum 162 mg/dL 423-657 9891/05/01 HDL cholesterol, serum 68 mg/dL > OR=46 [...] % 11.0-15.0 platelet count 297 THOUSAND/UL 10*3/mm3 375-116 5636/05/01 mean platelet volume 8.9 fL 7.5-12.5 Lab Report: CBC-QUEST, COMPREHENSIVE METABOLIC PANEL, LIPID PANEL, Micro ... - Urinalysis microalbumin/total urine volume <0.2 mg/dL mg/L microalbumin/creatinine ratio, urine NOTE mcg/mg creat mg/L <30 Lab Report: UADIP W/MICRO, AUTO - Chemistry RBC, urine, dipstick 1+ Negative protein, total urine random Negative mg/dL Negative Lab Report: UADIP W/MICRO, AUTO - Urinalysis pH, urine, semiquantitative 7.5 5.0-8.5 specific gravity, urine 1.010 1.000-1.030 appearance, urine Cloudy Clear urine color Yellow Colorless;Lightyellow;Straw;Yellow urobilinogen, urine, semiquantitative (dipstick) 0.2 Normal leukocyte esterase, urine, by dipstick 3+ Negative nitrite, urine, semiquantitative Negative Negative glucose, urine, semiquantitative Negative Negative ketones, urine, by test strip Negative Negative bilirubin, urine Negative Negative Encounters Code Encounter Date Provider Facility CPT-35504 Level 4 Est. Patient 14:40:54 CDT Bee Rosas [facility] CPT-70381 Level 4 Est. Patient 10:31:15 CDT Jalil Hayes MD [facility]-96733 Level 4 Est. Patient 15:07:54 CDT Mariaa Whitman [facility]-86461 Level 3 Est. Patient 20:45:54 PROJECT SUPERINTENDENT Mariaa Whitman [facility] CPT-69345 Level 3 Est. Patient 12:16:16 CDT Ana Cristina Vallejo MD PhD [facility] CPT-17796 Level 4 Est. Patient 12:49:21 CDT Ana Cristina Vallejo MD [facility]-45452 Level 4 Est. Patient 23:02:25 CDT Ana Cristina Vallejo MD PhD [facility] CPT-27017 Level 4 Est. Patient 19:26:33 PROJECT SUPERINTENDENT Ana Cristina Vallejo MD PhD [facility] CPT-25137 Level 4 Est. Patient 11:28:14 CDT Ana Cristina Vallejo MD PhD [facility] CPT-96948 Level 4 Est. Patient 15:35:46 PROJECT SUPERINTENDENT Ana Cristina Vallejo MD PhD [facility] CPT-50177 Level 3 Est. Patient 21:06:39 PROJECT SUPERINTENDENT Alden Kim MD [facility] CPT-24757 Level 4 Est. Patient 15:30:54 PROJECT SUPERINTENDENT Ana Cristina Vallejo MD PhD [facility] Procedures Code Procedure Name Date Entry Date Standard Description CPT-92040 EKG Trac and Interp - XRAY USE ONLY 10:35:11 CDT 09/11 CPT-37768 Chest 2V Frontal and Lat - XRAY USE ONLY 10:35:11 CDT CPT-G0438 Initial Annual Wellness Exam 14:54:07 CDT CPT-G0009 Administration of Pneumococcal Vaccine 14:44:24 CDT CPT-51153 Pneumovax 23 Injection Injectable 25 MCG/0.5ML 14:44:24 CDT CPT-83348 First Vx - Ix admin for Medicare patients 14:44:24 CDT CPT-18875 Fluzone High-Dose Intramuscular Suspension 14:44:20 CDT CPT-28862 BMP - LAB USE ONLY 12:38:06 CDT CPT-93415 Urine Culture - LAB USE ONLY 16:56:33 CDT CPT-TCMM Transitional Care Mgmt-Moderate 18:08:16 CDT CPT-89596 Bone Density 09:14:12 CDT CPT-000 Give Appropriate Flu Vaccine 14:51:52 CDT CPT-49625 Fluzone High Dose (>=65 yrs.) 15:19:23 CDT CPT-60558 Immunization Single Admin 15:19:23 CDT CPT-89605 Prevnar 13 15:40:03 CDT CPT-08449 Administration single or combination vaccine inc oral 15 :40:03 CDT CPT-85875 Prevnar 13:55:07 CDT CPT-G0008 Administration of Influenza Virus Vaccine 10:49:51 CDT CPT-17709 Fluzone High-Dose Intramuscular Suspension 10:49:51 CDT CPT-67271 Knee 3V 13:31:37 CDT CPT-56673 Bone Density 09:07:05 PROJECT SUPERINTENDENT CPT-40252 Nail Avulsion 09:46:05 CDT CPT-81233 Administration single or combination vaccine inc oral 16 :11:54 CDT CPT-40118 Influenza High Dose age 65+ 16:11:54 CDT CPT-26553 Administration single or combination vaccine inc oral 10 :53:15 CDT CPT-15130 Influenza High Dose age 65+ 10:53:15 CDT CPT-05466 Bone Density 14:50:58 PROJECT SUPERINTENDENT CPT-92556 Administration single or combination vaccine inc oral 15 :41:20 PROJECT SUPERINTENDENT CPT-62077 Zoster Vaccine (Zostavax) 15:41:20 PROJECT SUPERINTENDENT CPT-51050 Spec Collection and Handling Fee 11:18:25 PROJECT SUPERINTENDENT CPT-48642 Administration single or combination vaccine inc oral 11 :14:20 CDT CPT-53037 Influenza High Dose age 65+ 11:14:20 CDT
--- OUTSIDE RECORDS SUMMARY | 2017-07-18 08:38 | XMS REPORT | Clinical Summary ---
Author Author Admin, QIE Organization [employer] Address Unknown Phone Unavailable Allergies, Adverse Reactions, [...] each nostril daily for allergies FLUTICASONE PROPIONATE 08482430845 Active Mariaadomenico Whitman APRN Active CETIRIZINE HCL 10 MG ORAL TABS 1 po qd PRN Allergies CETIRIZINE HCL 58640932563 Active Mariaa Sidkum PLAN NURSE Active BACTRIM DS 800-160 MG TABS 1 pill by mouth twice daily, for UTI SULFAMETHOXAZOLE-TRIMETHOPRIM 75634774852 No Longer Active Ana Cristina Vallejo MD PhD Active HYDROCHLOROTHIAZIDE 12.5 MG CAPS 1 pill by mouth daily, for blood pressure HYDROCHLOROTHIAZIDE 25532859598 Active Mariaa Antonette PLAN NURSE Active CARVEDILOL 25 MG TABS 1 pill by mouth twice daily for blood pressure CARVEDILOL 08181599454 Active Mariaa Laudee SWARTZN Active SYNTHROID 0.088 MG TAB 1 tablet by mouth daily for thyroid LEVOTHYROXINE SODIUM 12980747455 Active Mariaa Antonette SWARTZN Active AMOXICILLIN 500 MG CAP 1 tab by mouth 3 times daily AMOXICILLIN 36601679277 No Longer Active Alden Kim MD Active [facility] VITAMIN D3 1000 UNIT CAPS TAKE 2 CAP DAILY CHOLECALCIFEROL 98420192172 Active Ana Cristina Vallejo MD PhD Active CALCIUM 500 MG TABS TAKE 3 TABS DAILY CALCIUM 65984036290 Active Aneta Tavarezum STONEMASON Active MULTIVITAMINS TABS TAKE 1 TAB DAILY MULTIPLE VITAMIN 77246566196 Active Aneta Tavarezum STONEMASON Active BENADRYL ALLERGY 25 MG TABS NEEDED DIPHENHYDRAMINE HCL 26452517588 Active Aneta Tavarezum STONEMASON Active TYLENOL 325 MG TABS NEEDED ACETAMINOPHEN 78578233966 Active Aneta Tavarezum STONEMASON Active ADVIL 200 MG TABS TAKE NEEDED IBUPROFEN 13149580132 Active Aneta Tavarezum STONEMASON Active ADULT ASPIRIN EC LOW STRENGTH 81 MG TBEC TAKE 1 TAB DAILY ASPIRIN 34715813333 Active Aneta Tavarezum STONEMASON Active VITAMIN E NATURAL 400 UNIT CAPS TAKE 1 CAP DAILY VITAMIN E 61761257302 Active Aneta Tavarezum STONEMASON Active GLUCOSAMINE-CHONDROITIN 500-400 MG TABS TAKE 1 TAB DAILY GLUCOSAMINE-CHONDROITIN 39442067258 Active Aneta Tavarezum STONEMASON Active NORVASC 10 MG TABS TAKE 1 TAB DAILY AMLODIPINE BESYLATE 49600578420 Active Mariaa Whitman PLAN NURSE Active BENAZEPRIL HCL 40 MG TABS 1 PO BID BENAZEPRIL HCL 17161048287 Active Mariaa Whitman PLAN NURSE Active LOVASTATIN 20 MG TABS 1 PO Q HS FOR CHOLESTEROL LOVASTATIN 28286416762 Active Mariaa Whitman PLAN NURSE Active RANITIDINE HCL 150 MG CAPS 1 PO Q 12 HRS RANITIDINE HCL 68945728069 Active Mariaa Whitman PLAN NURSE Active ALENDRONATE SODIUM 70 MG TABS TAKE 1 TAB ONCE A WEEK ALENDRONATE SODIUM 54001718403 Active Mariaa Whitman PLAN NURSE Active AMOXICILLIN 500 MG CAP 1 tab by mouth 3 times daily AMOXICILLIN 500 MG CAP 502854 AMOXICILLIN Inactive BACTRIM DS 800-160 MG TABS 1 pill by mouth twice daily, for UTI BACTRIM DS 800-160 MG TABS 039032 SULFAMETHOXAZOLE-TRIMETHOPRIM Inactive Immunizations Vaccine Administration Date Value [...] 1.41 ng/dL 0.76-1.46 cholesterol, serum 166 mg/dL 917-055 7359/04/20 triglyceride, serum, fasting 68 mg/dL 30-200 HDL cholesterol, serum 88 mg/dL 32-96 LDL cholesterol, serum 64 mg/dL 0-130 sodium, serum 132 mmol/L 482-111 9776/04/20 carbon dioxide, venous blood 31.3 mmol/L 21.0-32.0 [...] Negative Encounters Code Encounter Date Provider Facility CPT-23700 Level 3 Est. Patient 20:45:54 ADMINISTRATIVE AIDE Mariaa Whitman APRN [facility]-14061 Level 3 Est. Patient 12:16:16 CDT Ana Cristina Vallejo MD [facility]-38683 Level 4 Est. Patient 12:49:21 CDT Ana Cristina Vallejo MD [facility]-32615 Level 4 Est. Patient 23:02:25 CDT Ana Cristina Vallejo MD [facility]-96601 Level 4 Est. Patient 19:26:33 ADMINISTRATIVE AIDE Ana Cristina [id number] Level 4 Est. Patient 11:28:14 CDT Ana Cristina Vallejo MD [facility] [phone] Level 4 Est. Patient 15:35:46 ADMINISTRATIVE AIDE Ana Cristina Vallejo MD PhD [facility] CPT-37284 Level 3 Est. Patient 21:06:39 ADMINISTRATIVE AIDE Alden Kim MD [facility] CPT-76794 Level 4 Est. Patient 15:30:54 ADMINISTRATIVE AIDE Ana Cristina Vallejo MD PhD [facility] Procedures Code Procedure Name Date Entry Date Standard Description CPT-000 Give Appropriate Flu Vaccine 14:51:52 CDT CPT-62172 Fluzone High Dose (>=65 yrs.) 15:19:23 CDT CPT-50688 Immunization Single Admin 15:19:23 CDT CPT-30089 Prevnar 15:40:03 CDT CPT-47432 Administration single or combination vaccine inc oral 15 :40:03 CDT CPT-41678 Prevnar 13:55:07 CDT CPT-G0008 Administration of Influenza Virus Vaccine 10:49:51 CDT CPT-51920 Fluzone High-Dose Intramuscular Suspension 10:49:51 CDT CPT-21672 Knee 3V 13:31:37 CDT CPT-13731 Bone Density 09:07:05 ADMINISTRATIVE AIDE CPT-62669 Nail Avulsion 09:46:05 CDT CPT-23364 Administration single or combination vaccine inc oral 16 :11:54 CDT CPT-14487 Influenza High Dose age 65+ 16:11:54 CDT CPT-21278 Administration single or combination vaccine inc oral 10 :53:15 CDT CPT-86275 Influenza High Dose age 65+ 10:53:15 CDT CPT-41058 Bone Density 14:50:58 ADMINISTRATIVE AIDE CPT-62156 Administration single or combination vaccine inc oral 15 :41:20 ADMINISTRATIVE AIDE CPT-55101 Zoster Vaccine (Zostavax) 15:41:20 ADMINISTRATIVE AIDE CPT-19086 Spec Collection and Handling Fee 11:18:25 ADMINISTRATIVE AIDE CPT-96564 Administration single or combination vaccine inc oral 11 :14:20 CDT CPT-04835 Influenza High Dose age 65+ 11:14:20 CDT
--- OUTSIDE RECORDS SUMMARY | 2017-07-18 08:39 | XMS REPORT | Clinical Summary ---
Author Author Admin, DANDRE Organization [facility] Address Unknown Phone Unavailable Allergies, Adverse Reactions, [...] by mouth twice daily, for UTI SULFAMETHOXAZOLE-TRIMETHOPRIM 89205665773 No Longer Active Ana Cristina Vallejo MD PhD Active HYDROCHLOROTHIAZIDE 12.5 MG CAPS 1 pill by mouth daily, for blood pressure HYDROCHLOROTHIAZIDE 88755251977 Active Mariaadomenico Whitman APRN Active CARVEDILOL 25 MG TABS 1 pill by mouth twice daily for blood pressure CARVEDILOL 29555506491 Active Mariaa Yokum FIRE SPRINKLER INSPECTOR Active SYNTHROID 0.088 MG TAB 1 tablet by mouth daily for thyroid LEVOTHYROXINE SODIUM 01778774014 Active Mariaa Laudee FIRE SPRINKLER INSPECTOR Active AMOXICILLIN 500 MG CAP 1 tab by mouth 3 times daily AMOXICILLIN 90853244433 No Longer Active Alden Kim MD Active [facility]S VITAMIN D3 1000 UNIT CAPS TAKE 2 CAP DAILY CHOLECALCIFEROL 82714022478 Active Ana Cristina Vallejo MD PhD Active CALCIUM 500 MG TABS TAKE 3 TABS DAILY CALCIUM 04378610037 Active Aneta Samantha Leo SUPERVISOR WOOL SHEARING Active MULTIVITAMINS TABS TAKE 1 TAB DAILY MULTIPLE VITAMIN 41929397035 Active Aneta Tavarezum SUPERVISOR WOOL SHEARING Active BENADRYL ALLERGY 25 MG TABS NEEDED DIPHENHYDRAMINE HCL 38954095769 Active Aneta Singh Leo SUPERVISOR WOOL SHEARING Active TYLENOL 325 MG TABS NEEDED ACETAMINOPHEN 09182236959 Active Aneta Tavarezum SUPERVISOR WOOL SHEARING Active ADVIL 200 MG TABS TAKE NEEDED IBUPROFEN 90917477507 Active Aneta D Leo SUPERVISOR WOOL SHEARING Active ADULT ASPIRIN EC LOW STRENGTH 81 MG TBEC TAKE 1 TAB DAILY ASPIRIN 41009726724 Active Aneta Tavarezum SUPERVISOR WOOL SHEARING Active VITAMIN E NATURAL 400 UNIT CAPS TAKE 1 CAP DAILY VITAMIN E 25448580760 Active Aneta Tavarezum SUPERVISOR WOOL SHEARING Active GLUCOSAMINE-CHONDROITIN 500-400 MG TABS TAKE 1 TAB DAILY GLUCOSAMINE-CHONDROITIN 83319464885 Active Aneta Tavarezum SUPERVISOR WOOL SHEARING Active NORVASC 10 MG TABS TAKE 1 TAB DAILY AMLODIPINE BESYLATE 22685414497 Active Mariaa Whitman APRN Active BENAZEPRIL HCL 40 MG TABS 1 PO BID BENAZEPRIL HCL 38893171830 Active HEDY Esquivel Active LOVASTATIN 20 MG TABS 1 PO Q HS FOR CHOLESTEROL LOVASTATIN 81187549150 Active Mariaa Whitman APRN Active RANITIDINE HCL 150 MG CAPS 1 PO Q 12 HRS RANITIDINE HCL 43814686270 Active Mariaa Whitman APRN Active ALENDRONATE SODIUM 70 MG TABS TAKE 1 TAB ONCE A WEEK ALENDRONATE SODIUM 23626628092 Active Mariaa Whitman APRN Active AMOXICILLIN 500 MG CAP 1 tab by mouth 3 times daily AMOXICILLIN 500 MG CAP 289840 AMOXICILLIN Inactive BACTRIM DS 800-160 MG TABS 1 pill by mouth twice daily, for UTI BACTRIM DS 800-160 MG TABS 396282 SULFAMETHOXAZOLE-TRIMETHOPRIM Inactive Immunizations Vaccine Administration Date Value [...] Panel - Chemistry sodium, serum 136 mmol/L 421-916 5380/03/24 potassium, serum 4.3 mmol/L 3.5-5.2 chloride, serum [...] 5.0-8.5 Encounters Code Encounter Date Provider Facility CPT-05330 Level 3 Est. Patient 20:45:54 ANIMAL HUSBANDRY WORKER Mariaa Whitman APRN [facility] CPT-91995 Level 3 Est. Patient 12:16:16 CDT Ana Cristina Vallejo MD [facility] CPT-96697 Level 4 Est. Patient 12:49:21 CDT Ana Cristina Vallejo MD PhD [facility] CPT-51525 Level 4 Est. Patient 23:02:25 CDT Ana Cristina Vallejo MD [facility]58164 Level 4 Est. Patient 19:26:33 ANIMAL HUSBANDRY WORKER Ana Cristina Vallejo MD PhD [facility]-93821 Level 4 Est. Patient 11:28:14 CDT Ana Cristina Vallejo MD PhD [facility] CPT-25667 Level 4 Est. Patient 15:35:46 ANIMAL HUSBANDRY WORKER Ana Cristina Vallejo MD PhD [facility] CPT-71676 Level 3 Est. Patient 21:06:39 ANIMAL HUSBANDRY WORKER Alden Kim MD [facility] CPT-54502 Level 4 Est. Patient 15:30:54 ANIMAL HUSBANDRY WORKER Ana Cristina Vallejo MD PhD [facility] Procedures Code Procedure Name Date Entry Date Standard Description CPT-000 Give Appropriate Flu Vaccine 14:51:52 CDT CPT-07201 Fluzone High Dose (>=65 yrs.) 15:19:23 CDT CPT-13028 Immunization Single Admin 15:19:23 CDT CPT-37498 Prevnar 13 15:40:03 CDT CPT-02276 Administration single or combination vaccine inc oral 15 :40:03 CDT CPT-52354 Prevnar 13 13:55:07 CDT CPT-G0008 Administration of Influenza Virus Vaccine 10:49:51 CDT CPT-82827 Fluzone High-Dose Intramuscular Suspension 10:49:51 CDT CPT-14297 Knee 3V 13:31:37 CDT CPT-90037 Bone Density 09:07:05 ANIMAL HUSBANDRY WORKER CPT-79067 Nail Avulsion 09:46:05 CDT CPT-41544 Administration single or combination vaccine inc oral 16 :11:54 CDT CPT-84276 Influenza High Dose age 65+ 16:11:54 CDT CPT-41584 Administration single or combination vaccine inc oral 10 :53:15 CDT CPT-25011 Influenza High Dose age 65+ 10:53:15 CDT CPT-81601 Bone Density 14:50:58 ANIMAL HUSBANDRY WORKER CPT-60159 Administration single or combination vaccine inc oral 15 :41:20 ANIMAL HUSBANDRY WORKER CPT-15501 Zoster Vaccine (Zostavax) 15:41:20 ANIMAL HUSBANDRY WORKER CPT-29169 Spec Collection and Handling Fee 11:18:25 ANIMAL HUSBANDRY WORKER CPT-19342 Administration single or combination vaccine inc oral 11 :14:20 CDT CPT-58127 Influenza High Dose age 65+ 11:14:20 CDT
--- OUTSIDE RECORDS SUMMARY | 2017-07-18 08:40 | XMS REPORT | Clinical Summary ---
Author Author Admin, DANDRE Organization [facility] [employer] Address Unknown Phone Unavailable Allergies, Adverse Reactions, Alerts Allergy Name Reaction Description Start Date Severity Status Provider NKDA Critical Active Mariaa Whitman PIPELINE OPERATOR Conditions or Problems Problem Name Problem Code Onset Date Status Entry Date Provider Comment Standard Description Annotate ROUTINE GYNECOLOGICAL EXAMINATION V72.31 Resolved Ana Cristina Vallejo MD PhD Routine gynecological examination MENOPAUSE 627.2 Ruled out Ana Cristina Vallejo MD PhD Symptomatic menopausal or female climacteric states MENOPAUSE 627.2 Active Brianda Reis [facility] Symptomatic menopausal or female climacteric states DIVERTICULOSIS, [...] 1 daily, for vitamin D deficiency CHOLECALCIFEROL 96394394770 Active HEDY Esquivel Active EQL ONE DAILY WOMENS ORAL TABLET 1 po daily MULTIPLE VITAMINS- CALCIUM 48771105006 Active HEDY Esquivel Active CIPRO 250 MG ORAL TABS 1 tab BID for 7 days CIPROFLOXACIN HCL 92104868951 Active Deepti Junior LPN Active MACROBID 100 MG ORAL CAPS 1 tab BID for 5 days NITROFURANTOIN MONOHYD MACRO 65677603861 No Longer Active Deepti Junior AIR QUALITY ENGINEER Active HYDROCHLOROTHIAZIDE 12.5 MG CAPS 1 pill by mouth daily HYDROCHLOROTHIAZIDE 03840542064 Active Jalil Hayes MD Active RANITIDINE HCL 150 MG CAPS once nightly RANITIDINE HCL 85509619301 Active Jalil Hayes MD Active BENAZEPRIL HCL 40 MG TABS 1 daily for blood pressure BENAZEPRIL HCL 34224099222 Active Jalil Haeys MD Active HYDROCHLOROTHIAZIDE 12.5 MG CAPS 1 pill by mouth daily, for blood pressure HYDROCHLOROTHIAZIDE 27550097720 No Longer Active Jalil Hayes MD Active AUGMENTIN 875-125 MG TAB 1 po BID x 7 days AMOXICILLIN-POT CLAVULANATE 61993272176 No Longer Active Jalil Hayes MD Active OMEPRAZOLE 40 MG CPDR 1 po q a.m. OMEPRAZOLE 00746803884 Active Peggy Pardo LPN Active MIRALAX ORAL PACK Takes daily prn POLYETHYLENE GLYCOL 3350 96227906924 No Longer Active Peggy Pardo LPN Active FLONASE ALLERGY RELIEF 50 MCG/ACT NASAL SUSP One spray each nostril daily for allergies FLUTICASONE PROPIONATE 85296553682 No Longer Active Pgegy Pardo LPN Active BENADRYL ALLERGY 25 MG TABS NEEDED DIPHENHYDRAMINE HCL 27004763948 No Longer Active Peggy Pardo LPN Active ADVIL 200 MG TABS TAKE NEEDED IBUPROFEN 67945522709 No Longer Active Peggy Pardo LPN Active COLACE 100 MG CAP 1 po BID PRN Constipation DOCUSATE SODIUM 18208952806 No Longer Active Deepti Junior LPN Active ALPRAZOLAM 0.25 MG TAB 1/2-1 tablet by mouth twice a day as needed for stress ALPRAZOLAM 01975052954 No Longer Active Deepti Junior LPN Active ALENDRONATE SODIUM 70 MG TABS 1 pill by mouth weekly for osteoporosis ALENDRONATE SODIUM 27272708924 Active Mariaa Whitman PIPELINE OPERATOR Active E-1000 1000 UNIT ORAL CAPS Take one by mouth daily VITAMIN E 92335211828 Active HEDY Esquivel Active OSCAL 500/200 D-3 500-200 MG-UNIT ORAL TABS Take one by mouth 3 times daily, morning, afternoon and evening.] CALCIUM CARBONATE-VITAMIN D 37944725378 Active HEDY Esquivel Active ASPIRIN 81 MG CHEW TAB 1 tablet by mouth daily ASPIRIN 77670234009 Active HEDY Esquivel Active ADULT ASPIRIN EC LOW STRENGTH 81 MG TBEC TAKE 1 TAB DAILY ASPIRIN 53516930527 No Longer Active Mariaa Whitman APRN Active ALENDRONATE SODIUM 70 MG TABS TAKE 1 TAB ONCE A WEEK ALENDRONATE SODIUM 50337987746 No Longer Active Mariaa Whitman APRN Active CETIRIZINE HCL 10 MG ORAL TABS 1 po qd PRN Allergies CETIRIZINE HCL 83587557200 Active HEDY Esquivel Active BACTRIM DS 800-160 MG TABS 1 pill by mouth twice daily, for UTI SULFAMETHOXAZOLE-TRIMETHOPRIM 85207673056 No Longer Active Ana Cristina Vallejo MD PhD Active CARVEDILOL 25 MG TABS 1 pill by mouth twice daily for blood pressure CARVEDILOL 29881968464 Active HEDY Esquivel Active SYNTHROID 0.088 MG TAB 1 tablet by mouth daily for thyroid LEVOTHYROXINE SODIUM 00177109503 Active HEDY Esquivel Active AMOXICILLIN 500 MG CAP 1 tab by mouth 3 times daily AMOXICILLIN 41502457519 No Longer Active Alden Kim MD Active CALCIUM 500 MG TABS TAKE 3 TABS DAILY CALCIUM 25585892754 No Longer Active Mariaa Whitman APRN Active MULTIVITAMINS TABS TAKE 1 TAB DAILY MULTIPLE VITAMIN No Longer Active Aneta Bailey LPN Active TYLENOL 325 MG TABS NEEDED ACETAMINOPHEN 64680462799 Active Aneta Tavarezum AIR QUALITY ENGINEER Active GLUCOSAMINE-CHONDROITIN 500-400 MG TABS TAKE 1 TAB DAILY GLUCOSAMINE-CHONDROITIN 22138356990 Active Mariaa Yokum PIPELINE OPERATOR Active NORVASC 10 MG TABS TAKE 1 TAB DAILY AMLODIPINE BESYLATE 34214623662 Active HEDY Esquivel Active LOVASTATIN 20 MG TABS 1 PO Q HS FOR CHOLESTEROL LOVASTATIN 83854747118 Active Risa HEDY Calderon Active ALENDRONATE SODIUM 70 MG TABS TAKE 1 TAB ONCE A WEEK ALENDRONATE SODIUM 70 MG TABS 043933 ALENDRONATE SODIUM Inactive ADULT ASPIRIN EC LOW STRENGTH 81 MG TBEC TAKE 1 TAB DAILY ADULT ASPIRIN EC LOW STRENGTH 81 MG TBEC 676196 ASPIRIN Inactive ALPRAZOLAM 0.25 MG TAB 1/2-1 tablet by mouth twice a day as needed for stress ALPRAZOLAM 0.25 MG TAB 956294 ALPRAZOLAM Inactive COLACE 100 MG CAP 1 po BID PRN Constipation COLACE 100 MG CAP 2842514 DOCUSATE SODIUM Inactive ADVIL 200 MG TABS TAKE NEEDED ADVIL 200 MG TABS 848098 IBUPROFEN Inactive BENADRYL ALLERGY 25 MG TABS NEEDED BENADRYL ALLERGY 25 MG TABS 7594730 DIPHENHYDRAMINE HCL Inactive FLONASE ALLERGY RELIEF 50 MCG/ACT NASAL SUSP One spray each nostril daily for allergies FLONASE ALLERGY RELIEF 50 MCG/ACT NASAL SUSP 7780088 FLUTICASONE PROPIONATE Inactive MIRALAX ORAL PACK Takes daily prn MIRALAX ORAL PACK 163223 POLYETHYLENE GLYCOL 3350 Inactive AUGMENTIN 875-125 MG TAB 1 po BID x 7 days AUGMENTIN 875-125 MG TAB 383284 AMOXICILLIN-POT CLAVULANATE Inactive HYDROCHLOROTHIAZIDE 12.5 MG CAPS 1 pill by mouth daily, for blood pressure HYDROCHLOROTHIAZIDE 12.5 MG CAPS 827064 HYDROCHLOROTHIAZIDE Inactive AMOXICILLIN 500 MG CAP 1 tab by mouth 3 times daily AMOXICILLIN 500 MG CAP 909645 AMOXICILLIN Inactive BACTRIM DS 800-160 MG TABS 1 pill by mouth twice daily, for UTI BACTRIM DS 800-160 MG TABS 862653 SULFAMETHOXAZOLE-TRIMETHOPRIM Inactive MACROBID 100 MG ORAL CAPS 1 tab BID for 5 days MACROBID 100 MG ORAL CAPS 1034269 NITROFURANTOIN MONOHYD MACRO Inactive Advance Directives Directive [...] Panel - Chemistry sodium, serum 130 mmol/L 411-342 6608/10/19 potassium, serum 3.5 mmol/L 3.5-5.2 chloride, serum 92 mmol/L 98-107 carbon dioxide, venous blood 33.6 mmol/L 21.0-32.0 blood glucose 118 mg/dL 65-110 calcium, serum 8.8 mg/dL 8.5-10.1 urea nitrogen, blood 11 mg/dL 7-18 creatinine, serum 1.12 mg/dL 0.55-1.30 sodium, serum 132 mmol/L 998-628 4229/08/09 potassium, serum 4.2 mmol/L 3.5-5.2 chloride, serum 99 mmol/L 98-107 carbon dioxide, venous blood 24.7 mmol/L 21.0-32.0 blood glucose 119 mg/dL 65-110 calcium, serum 8.5 mg/dL 8.5-10.1 urea nitrogen, blood 14 mg/dL 7-18 creatinine, serum 1.16 mg/dL 0.60-1.30 Lab Report: CBC-QUEST, COMPREHENSIVE METABOLIC PANEL, LIPID PANEL, Micro ... - Chemistry cholesterol, serum 162 mg/dL 623-883 0391/05/01 HDL cholesterol, serum 68 mg/dL > OR=46 [...] % 11.0-15.0 platelet count 297 THOUSAND/UL 10*3/mm3 289-223 4231/05/01 mean platelet volume 8.9 fL 7.5-12.5 Lab [...] 5.0-8.5 Encounters Code Encounter Date Provider Facility [facility]-[id number] Level 3 Est. Patient 13:55:49 CDT Jalil Hayes MD [facility]-16223 Level 3 Est. Patient 14:38:15 CDT Jalil Hayes MD [facility]02682 Level 4 Est. Patient 14:40:54 CDT Bee Rosas [facility]-00566 Level 4 Est. Patient 10:31:15 CDT Jalil Hayes MD [facility]67911 Level 4 Est. Patient 15:07:54 CDT Mariaa Whitman [facility]81870 Level 3 Est. Patient 20:45:54 HOME ENERGY CONSULTANT Mariaa Whitman [facility]-54742 Level 3 Est. Patient 12:16:16 CDT Ana Cristina Vallejo MD [facility]77694 Level 4 Est. Patient 12:49:21 CDT Ana Cristina Vallejo MD [facility]92547 Level 4 Est. Patient 23:02:25 CDT Ana Cristina Vallejo MD [facility]95401 Level 4 Est. Patient 19:26:33 HOME ENERGY CONSULTANT Ana Cristina Vallejo MD [facility]76849 Level 4 Est. Patient 11:28:14 CDT Ana Cristina Vallejo MD [facility]59303 Level 4 Est. Patient 15:35:46 HOME ENERGY CONSULTANT Ana Cristina Vallejo MD PhD [facility] CPT-26606 Level 3 Est. Patient 21:06:39 HOME ENERGY CONSULTANT Alden Kim MD [facility] CPT-14197 Level 4 Est. Patient 15:30:54 HOME ENERGY CONSULTANT Ana Cristina Vallejo MD PhD [facility] Procedures Code Procedure Name Date Entry Date Standard Description CPT-TCMM Transitional Care Mgmt-Moderate 14:41:55 CDT CPT-85901 EKG Trac and Interp - XRAY USE ONLY 10:35:11 CDT 09/11 CPT-00685 Chest 2V Frontal and Lat - XRAY USE ONLY 10:35:11 CDT CPT-G0438 Initial Annual Wellness Exam 14:54:07 CDT CPT-G0009 Administration of Pneumococcal Vaccine 14:44:24 CDT CPT-72105 Pneumovax 23 Injection Injectable 25 MCG/0.5ML 14:44:24 CDT CPT-90227 First Vx - Ix admin for Medicare patients 14:44:24 CDT CPT-57091 Fluzone High-Dose Intramuscular Suspension 14:44:20 CDT CPT-35894 BMP - LAB USE ONLY 12:38:06 CDT CPT-10216 Urine Culture - LAB USE ONLY 16:56:33 CDT CPT-TCMM Transitional Care Mgmt-Moderate 18:08:16 CDT CPT-35874 Bone Density 09:14:12 CDT CPT-000 Give Appropriate Flu Vaccine 14:51:52 CDT CPT-46475 Fluzone High Dose (>=65 yrs.) 15:19:23 CDT CPT-08232 Immunization Single Admin 15:19:23 CDT CPT-89036 Prevnar 13 15:40:03 CDT CPT-85886 Administration single or combination vaccine inc oral 15 :40:03 CDT CPT-79218 Prevnar 13 13:55:07 CDT CPT-G0008 Administration of Influenza Virus Vaccine 10:49:51 CDT CPT-36986 Fluzone High-Dose Intramuscular Suspension 10:49:51 CDT CPT-58782 Knee 3V 13:31:37 CDT CPT-06593 Bone Density 09:07:05 HOME ENERGY CONSULTANT CPT-25075 Nail Avulsion 09:46:05 CDT CPT-55131 Administration single or combination vaccine inc oral 16 :11:54 CDT CPT-98630 Influenza High Dose age 65+ 16:11:54 CDT CPT-12462 Administration single or combination vaccine inc oral 10 :53:15 CDT CPT-96752 Influenza High Dose age 65+ 10:53:15 CDT CPT-40487 Bone Density 14:50:58 HOME ENERGY CONSULTANT CPT-61729 Administration single or combination vaccine inc oral 15 :41:20 HOME ENERGY CONSULTANT CPT-08627 Zoster Vaccine (Zostavax) 15:41:20 HOME ENERGY CONSULTANT CPT-94035 Spec Collection and Handling Fee 11:18:25 HOME ENERGY CONSULTANT CPT-91704 Administration single or combination vaccine inc oral 11 :14:20 CDT CPT-96744 Influenza High Dose age 65+ 11:14:20 CDT
--- OUTSIDE RECORDS SUMMARY | 2017-07-18 08:41 | XMS REPORT | Clinical Summary ---
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 Conditions or Problems Problem Name Problem Code Onset Date Status Entry Date Provider Comment Standard Description Annotate ROUTINE GYNECOLOGICAL EXAMINATION V72.31 Resolved Ana Cristina Vallejo MD PhD Routine gynecological examination MENOPAUSE 627.2 Ruled out Ana Cristina Vallejo MD PhD Symptomatic menopausal or female climacteric states MENOPAUSE 627.2 Active Brianda Reis [facility] Symptomatic menopausal or female climacteric states DIVERTICULOSIS, COLON 562.10 Active Ana Cristina Vallejo MD PhD Diverticulosis of colon (without mention of hemorrhage) HIATAL HERNIA 553.3 Active Ana Cristina Vallejo MD PhD Diaphragmatic hernia without mention of obstruction or gangrene OSTEOPENIA 733.90 Active Ana Cristina Vallejo MD PhD Disorder of bone and cartilage, unspecified G E R D 530.81 Active Ana Critsina Vallejo MD PhD Esophageal reflux HYPERLIPIDEMIA 272.4 [...] CAPS 1 pill by mouth daily HYDROCHLOROTHIAZIDE 69800864829 Active Jalil Hayes MD Active RANITIDINE HCL 150 MG CAPS once nightly RANITIDINE HCL 41038192650 Active Jalil Hayes MD Active BENAZEPRIL HCL 40 MG TABS 1 daily for blood pressure BENAZEPRIL HCL 40980235173 Active Jalil Hayes MD Active HYDROCHLOROTHIAZIDE 12.5 MG CAPS 1 pill by mouth daily, for blood pressure HYDROCHLOROTHIAZIDE 38656458465 No Longer Active Jalil Hayes MD Active AUGMENTIN 875-125 MG TAB 1 po BID x 7 days AMOXICILLIN-POT CLAVULANATE 69976645469 No Longer Active Jalil Hayes MD Active OMEPRAZOLE 40 MG CPDR 1 po q a.m. OMEPRAZOLE 64085622938 Active Peggy Pardo LPN Active MIRALAX ORAL PACK Takes daily prn POLYETHYLENE GLYCOL 3350 19293385785 No Longer Active Peggy Pardo LPN Active FLONASE ALLERGY RELIEF 50 MCG/ACT NASAL SUSP One spray each nostril daily for allergies FLUTICASONE PROPIONATE 45379220760 No Longer Active Peggy Pardo LPN Active BENADRYL ALLERGY 25 MG TABS NEEDED DIPHENHYDRAMINE HCL 89825511338 No Longer Active Peggy Pardo LPN Active ADVIL 200 MG TABS TAKE NEEDED IBUPROFEN 34551423633 No Longer Active Peggy Pardo LPN Active COLACE 100 MG CAP 1 po BID PRN Constipation DOCUSATE SODIUM 83954213560 No Longer Active Deepti Junior LPN Active ALPRAZOLAM 0.25 MG TAB 1/2-1 tablet by mouth twice a day as needed for stress ALPRAZOLAM 08360864369 No Longer Active Deepti Junior LPN Active ALENDRONATE SODIUM 70 MG TABS 1 pill by mouth weekly for osteoporosis ALENDRONATE SODIUM 50121031321 Active Brianda Reis [facility] Active E-1000 1000 UNIT ORAL CAPS Take one by mouth daily VITAMIN E 08374352848 Active Brianda Bergerford [facility] Active OSCAL 500/200 D-3 500-200 MG-UNIT ORAL TABS Take one by mouth 3 times daily, morning, afternoon and evening.] CALCIUM CARBONATE-VITAMIN D 99078814240 Active Brianda Bergerford [facility] Active ASPIRIN 81 MG CHEW TAB 1 tablet by mouth daily ASPIRIN 56808392991 Active Brianda Bergerford [facility] Active ADULT ASPIRIN EC LOW STRENGTH 81 MG TBEC TAKE 1 TAB DAILY ASPIRIN 51089563299 No Longer Active Mariaa Whitman APRN Active ALENDRONATE SODIUM 70 MG TABS TAKE 1 TAB ONCE A WEEK ALENDRONATE SODIUM 70449970056 No Longer Active Mariaa Whitman APRN Active CETIRIZINE HCL 10 MG ORAL TABS 1 po qd PRN Allergies CETIRIZINE HCL 70814279451 Active HEDY Esquivel Active BACTRIM DS 800-160 MG TABS 1 pill by mouth twice daily, for UTI SULFAMETHOXAZOLE-TRIMETHOPRIM 23483994547 No Longer Active Ana Cristina Vallejo MD PhD Active CARVEDILOL 25 MG TABS 1 pill by mouth twice daily for blood pressure CARVEDILOL 26101691730 Active HEDY Esquivel Active SYNTHROID 0.088 MG TAB 1 tablet by mouth daily for thyroid LEVOTHYROXINE SODIUM 13784339687 Active HEDY Esquivel Active AMOXICILLIN 500 MG CAP 1 tab by mouth 3 times daily AMOXICILLIN 55502781032 No Longer Active Alden Kim MD Active [facility] VITAMIN D3 1000 UNIT CAPS TAKE 2 CAP DAILY CHOLECALCIFEROL Active Ana Cristina Vallejo MD PhD Active CALCIUM 500 MG TABS TAKE 3 TABS DAILY CALCIUM 74198682850 No Longer Active Mariaa Whitman APRN Active MULTIVITAMINS TABS TAKE 1 TAB DAILY MULTIPLE VITAMIN Active Anetajeannie Tavarezum JUICE TESTER Active TYLENOL 325 MG TABS NEEDED ACETAMINOPHEN 09677445858 Active Aneta Tavarezum JUICE TESTER Active GLUCOSAMINE-CHONDROITIN 500-400 MG TABS TAKE 1 TAB DAILY GLUCOSAMINE-CHONDROITIN 96852681574 Active Mariaa Whitman APRN Active NORVASC 10 MG TABS TAKE 1 TAB DAILY AMLODIPINE BESYLATE 40750965670 Active HEDY Esquivel Active LOVASTATIN 20 MG TABS 1 PO Q HS FOR CHOLESTEROL LOVASTATIN 83060078470 Active HEDY Esquivel Active ALENDRONATE SODIUM 70 MG TABS TAKE 1 TAB ONCE A WEEK ALENDRONATE SODIUM 70 MG TABS 959482 ALENDRONATE SODIUM Inactive ADULT ASPIRIN EC LOW STRENGTH 81 MG TBEC TAKE 1 TAB DAILY ADULT ASPIRIN EC LOW STRENGTH 81 MG TBEC 724791 ASPIRIN Inactive ALPRAZOLAM 0.25 MG TAB 1/2-1 tablet by mouth twice a day as needed for stress ALPRAZOLAM 0.25 MG TAB 652434 ALPRAZOLAM Inactive COLACE 100 MG CAP 1 po BID PRN Constipation COLACE 100 MG CAP 1821511 DOCUSATE SODIUM Inactive ADVIL 200 MG TABS TAKE NEEDED ADVIL 200 MG TABS 379182 IBUPROFEN Inactive BENADRYL ALLERGY 25 MG TABS NEEDED BENADRYL ALLERGY 25 MG TABS 4851504 DIPHENHYDRAMINE HCL Inactive FLONASE ALLERGY RELIEF 50 MCG/ACT NASAL SUSP One spray each nostril daily for allergies FLONASE ALLERGY RELIEF 50 MCG/ACT NASAL SUSP 9402255 FLUTICASONE PROPIONATE Inactive MIRALAX ORAL PACK Takes daily prn MIRALAX ORAL PACK 710599 POLYETHYLENE GLYCOL 3350 Inactive AUGMENTIN 875-125 MG TAB 1 po BID x 7 days AUGMENTIN 875-125 MG TAB 695063 AMOXICILLIN-POT CLAVULANATE Inactive HYDROCHLOROTHIAZIDE 12.5 MG CAPS 1 pill by mouth daily, for blood pressure HYDROCHLOROTHIAZIDE 12.5 MG CAPS 495450 HYDROCHLOROTHIAZIDE Inactive AMOXICILLIN 500 MG CAP 1 tab by mouth 3 times daily AMOXICILLIN 500 MG CAP 369144 AMOXICILLIN Inactive BACTRIM DS 800-160 MG TABS 1 pill by mouth twice daily, for UTI BACTRIM DS 800-160 MG TABS 954268 SULFAMETHOXAZOLE-TRIMETHOPRIM Inactive Advance Directives Directive Description Start [...] Panel - Chemistry sodium, serum 130 mmol/L 309-022 0592/10/19 potassium, serum 3.5 mmol/L 3.5-5.2 chloride, serum 92 mmol/L 98-107 carbon dioxide, venous blood 33.6 mmol/L 21.0-32.0 blood glucose 118 mg/dL 65-110 calcium, serum 8.8 mg/dL 8.5-10.1 urea nitrogen, blood 11 mg/dL 7-18 creatinine, serum 1.12 mg/dL 0.55-1.30 Lab Report: CBC-QUEST, COMPREHENSIVE METABOLIC PANEL, LIPID PANEL, Micro ... - Chemistry cholesterol, serum 162 mg/dL 111-494 2088/05/01 HDL cholesterol, serum 68 mg/dL > OR=46 [...] % 11.0-15.0 platelet count 297 THOUSAND/UL 10*3/mm3 391-934 3320/05/01 mean platelet volume 8.9 fL 7.5-12.5 Lab [...] Negative Encounters Code Encounter Date Provider Facility CPT-83753 Level 3 Est. Patient 13:55:49 CDT Jalil Hayes MD [facility] CPT-39189 Level 3 Est. Patient 14:38:15 CDT Jalil Hayes MD [facility] CPT-38569 Level 4 Est. Patient 14:40:54 CDT Bee Rosas [facility] CPT-61158 Level 4 Est. Patient 10:31:15 CDT Jalil Hayes MD [facility] CPT-97212 Level 4 Est. Patient 15:07:54 CDT Mariaa Whitman [facility] CPT-64750 Level 3 Est. Patient 20:45:54 TOURS CAPTAIN Mariaa Whitman [facility] CPT-13446 Level 3 Est. Patient 12:16:16 CDT Ana Cristina Vallejo MD [facility] CPT-18666 Level 4 Est. Patient 12:49:21 CDT Ana Cristina Vallejo MD [facility] CPT-25750 Level 4 Est. Patient 23:02:25 CDT Ana Cristina Vallejo MD [facility] CPT-30227 Level 4 Est. Patient 19:26:33 TOURS CAPTAIN Ana Cristina Vallejo MD [facility]-72842 Level 4 Est. Patient 11:28:14 CDT Ana Cristina Vallejo MD [facility]-43440 Level 4 Est. Patient 15:35:46 TOURS CAPTAIN Ana Cristina Vallejo MD [facility] CPT-62256 Level 3 Est. Patient 21:06:39 TOURS CAPTAIN Alden Kim MD [facility] CPT-91242 Level 4 Est. Patient 15:30:54 TOURS CAPTAIN Ana Cristina Vallejo MD [facility] Procedures Code Procedure Name Date Entry Date Standard Description CPT-TCMM Transitional Care Mgmt-Moderate 14:41:55 CDT CPT-40537 EKG Trac and Interp - XRAY USE ONLY 10:35:11 CDT 09/11 CPT-36243 Chest 2V Frontal and Lat - XRAY USE ONLY 10:35:11 CDT CPT-G0438 Initial Annual Wellness Exam 14:54:07 CDT CPT-G0009 Administration of Pneumococcal Vaccine 14:44:24 CDT CPT-67097 Pneumovax 23 Injection Injectable 25 MCG/0.5ML 14:44:24 CDT CPT-85110 First Vx - Ix admin for Medicare patients 14:44:24 CDT CPT-86158 Fluzone High-Dose Intramuscular Suspension 14:44:20 CDT CPT-99146 BMP - LAB USE ONLY 12:38:06 CDT CPT-31555 Urine Culture - LAB USE ONLY 16:56:33 CDT CPT-TCMM Transitional Care Mgmt-Moderate 18:08:16 CDT CPT-52101 Bone Density 09:14:12 CDT CPT-000 Give Appropriate Flu Vaccine 14:51:52 CDT CPT-20888 Fluzone High Dose (>=65 yrs.) 15:19:23 CDT CPT-87003 Immunization Single Admin 15:19:23 CDT CPT-32452 Prevnar 13 15:40:03 CDT CPT-03643 Administration single or combination vaccine inc oral 15 :40:03 CDT CPT-35887 Prevnar 13 13:55:07 CDT CPT-G0008 Administration of Influenza Virus Vaccine 10:49:51 CDT CPT-11240 Fluzone High-Dose Intramuscular Suspension 10:49:51 CDT CPT-53979 Knee 3V 13:31:37 CDT CPT-43824 Bone Density 09:07:05 TOURS CAPTAIN CPT-68004 Nail Avulsion 09:46:05 CDT CPT-22927 Administration single or combination vaccine inc oral 16 :11:54 CDT CPT-05228 Influenza High Dose age 65+ 16:11:54 CDT CPT-81272 Administration single or combination vaccine inc oral 10 :53:15 CDT CPT-37694 Influenza High Dose age 65+ 10:53:15 CDT CPT-91440 Bone Density 14:50:58 TOURS CAPTAIN CPT-84626 Administration single or combination vaccine inc oral 15 :41:20 TOURS CAPTAIN CPT-24557 Zoster Vaccine (Zostavax) 15:41:20 TOURS CAPTAIN CPT-80933 Spec Collection and Handling Fee 11:18:25 TOURS CAPTAIN CPT-26792 Administration single or combination vaccine inc oral 11 :14:20 CDT CPT-70260 Influenza High Dose age 65+ 11:14:20 CDT
--- OUTSIDE RECORDS SUMMARY | 2017-07-18 08:42 | XMS REPORT | Clinical Summary ---
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 Conditions or Problems Problem Name Problem Code Onset Date Status Entry Date Provider Comment Standard Description Annotate ROUTINE GYNECOLOGICAL EXAMINATION V72.31 Resolved Ana Cristina Vallejo MD PhD Routine gynecological examination MENOPAUSE 627.2 Ruled out Ana Cristina Vallejo MD PhD Symptomatic menopausal or female climacteric states MENOPAUSE 627.2 Active Brianda Reis [facility] Symptomatic menopausal or female climacteric states DIVERTICULOSIS, [...] MD Dysuria Forgetfulness 780.99 Active 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 Other general symptoms Unsteady gait 781.2 Active [...] daily for blood pressure and swelling FUROSEMIDE 28749704695 Active Jalil Hayes MD Active HYDROCHLOROTHIAZIDE 12.5 MG ORAL CAPSULE 1 pill by mouth daily HYDROCHLOROTHIAZIDE 64269575139 No Longer Active Jalil Hayes MD Active PREDNISONE 10 MG ORAL TABLET 2 daily for 5 days then 1 daily for 5 days 05/25 PREDNISONE 89130444808 No Longer Active Jalil Hayes MD Active VITAMIN D3 2000 UNIT ORAL TABLET 1 daily, for vitamin D deficiency CHOLECALCIFEROL 79185140602 No Longer Active Radha Jones APRN Active CIPRO 250 MG ORAL TABLET 1 tab BID for 7 days CIPROFLOXACIN HCL 64156974637 No Longer Active Radha Jones APRN Active VITAMIN D3 2000 UNIT ORAL CAPSULE 1 capsule po daily CHOLECALCIFEROL 52896972061 Active Aneta Bailey LPN Active EQL ONE DAILY WOMENS ORAL TABLET 1 po daily MULTIPLE VITAMINS- CALCIUM 24163059429 Active Aneta Tavarezum EXPERIMENTAL TECHNICIAN Active MACROBID 100 MG ORAL CAPSULE 1 tab BID for 5 days NITROFURANTOIN MONOHYD MACRO 76509438511 No Longer Active Deepti Madl EXPERIMENTAL TECHNICIAN Active RANITIDINE HCL 150 MG ORAL CAPSULE once nightly RANITIDINE HCL 49502025885 Active Aneta Tavarezum EXPERIMENTAL TECHNICIAN Active BENAZEPRIL HCL 40 MG ORAL TABLET 1 daily for blood pressure BENAZEPRIL HCL 37845948715 Active Jalil Hayes MD Active HYDROCHLOROTHIAZIDE 12.5 MG ORAL CAPSULE 1 pill by mouth daily, for blood pressure HYDROCHLOROTHIAZIDE 45214183727 No Longer Active Jalil Hayes MD Active AUGMENTIN 875-125 MG ORAL TABLET 1 po BID x 7 days AMOXICILLIN-POT CLAVULANATE 84644853377 No Longer Active Jalil Hayes MD Active OMEPRAZOLE 40 MG ORAL CAPSULE DELAYED RELEASE 1 po q a.m. OMEPRAZOLE 75783435656 Active HEDY Esquivel Active MIRALAX ORAL PACKET Takes daily prn POLYETHYLENE GLYCOL 3350 11386757739 No Longer Active Peggy Pardo LPN Active FLONASE ALLERGY RELIEF 50 MCG/ACT NASAL SUSPENSION One spray each nostril daily for allergies FLUTICASONE PROPIONATE 53246257852 No Longer Active Peggy Pardo LPN Active BENADRYL ALLERGY 25 MG ORAL TABLET NEEDED DIPHENHYDRAMINE HCL 86209418131 No Longer Active Peggy Pardo LPN Active ADVIL 200 MG ORAL TABLET TAKE NEEDED IBUPROFEN 23739365961 No Longer Active Peggy Pardo LPN Active COLACE 100 MG ORAL CAPSULE 1 po BID PRN Constipation DOCUSATE SODIUM 98123590385 No Longer Active Deepti Junior LPN Active ALPRAZOLAM 0.25 MG ORAL TABLET 1/2-1 tablet by mouth twice a day as needed for stress ALPRAZOLAM 59278011055 No Longer Active Deepti Junior LPN Active ALENDRONATE SODIUM 70 MG ORAL TABLET 1 pill by mouth weekly for osteoporosis ALENDRONATE SODIUM 63282859178 Active Aneta Bailey LPN Active E-1000 1000 UNIT ORAL CAPSULE Take one by mouth daily VITAMIN E 48385198468 Active Aneta Bailey LPN Active OSCAL 500/200 D-3 500-200 MG-UNIT ORAL TABLET Take one by mouth 3 times daily , morning, afternoon and evening.] CALCIUM CARBONATE-VITAMIN D 81298995834 Active Aneta Bailey LPN Active ASPIRIN 81 MG ORAL TABLET CHEWABLE 1 tablet by mouth daily ASPIRIN 41225388026 Active Aneta Bailey LPN Active ADULT ASPIRIN EC LOW STRENGTH 81 MG ORAL TABLET DELAYED RELEASE TAKE 1 TAB DAILY ASPIRIN 79299889085 No Longer Active Mariaa Whitman APRN Active ALENDRONATE SODIUM 70 MG ORAL TABLET TAKE 1 TAB ONCE A WEEK 01/20 ALENDRONATE SODIUM 35282064220 No Longer Active Mariaa Whitman APRN Active CETIRIZINE HCL 10 MG ORAL TABLET 1 po qd PRN Allergies CETIRIZINE HCL 36199988117 Active HEDY Esquivel Active BACTRIM DS 800-160 MG ORAL TABLET 1 pill by mouth twice daily, for UTI 01/29 SULFAMETHOXAZOLE-TRIMETHOPRIM 51581379537 No Longer Active Ana Cristina Vallejo MD PhD Active CARVEDILOL 25 MG ORAL TABLET 1 pill by mouth twice daily for blood pressure CARVEDILOL 52123210869 Active Aneta Tavarezum YULIET Active SYNTHROID 88 MCG ORAL TABLET 1 tablet by mouth daily for thyroid LEVOTHYROXINE SODIUM 50581270281 Active HEDY Esquivel Active AMOXICILLIN 500 MG ORAL CAPSULE 1 tab by mouth 3 times daily 2011 AMOXICILLIN 03922666896 No Longer Active Alden Kim MD Active CALCIUM 500 MG ORAL TABLET TAKE 3 TABS DAILY CALCIUM 96501180623 No Longer Active Mariaa Whitman APRN Active MULTIVITAMINS TABS TAKE 1 TAB DAILY MULTIPLE VITAMIN No Longer Active Aneta Tavarezum EXPERIMENTAL TECHNICIAN Active TYLENOL 325 MG ORAL TABLET NEEDED ACETAMINOPHEN 48804410750 Active Aneta Tavarezum EXPERIMENTAL TECHNICIAN Active GLUCOSAMINE-CHONDROITIN 500-400 MG ORAL TABLET TAKE 1 TAB DAILY GLUCOSAMINE-CHONDROITIN 20468376463 Active Aneta Bailey LPN Active NORVASC 10 MG ORAL TABLET TAKE 1 TAB DAILY AMLODIPINE BESYLATE 18035896305 Active Aneta Tavarezum EXPERIMENTAL TECHNICIAN Active LOVASTATIN 20 MG ORAL TABLET 1 PO Q HS FOR CHOLESTEROL LOVASTATIN 80324621207 Active HEDY Esquivel Active ALENDRONATE SODIUM 70 MG ORAL TABLET TAKE 1 TAB ONCE A WEEK 01/20 ALENDRONATE SODIUM 70 MG ORAL TABLET 960605 ALENDRONATE SODIUM Inactive ADULT ASPIRIN EC LOW STRENGTH 81 MG ORAL TABLET DELAYED RELEASE TAKE 1 TAB DAILY ADULT ASPIRIN EC LOW STRENGTH 81 MG ORAL TABLET DELAYED RELEASE 628572 ASPIRIN Inactive ALPRAZOLAM 0.25 MG ORAL TABLET 1/2-1 tablet by mouth twice a day as needed for stress ALPRAZOLAM 0.25 MG ORAL TABLET 994343 ALPRAZOLAM Inactive COLACE 100 MG ORAL CAPSULE 1 po BID PRN Constipation COLACE 100 MG ORAL CAPSULE 9480233 DOCUSATE SODIUM Inactive ADVIL 200 MG ORAL TABLET TAKE NEEDED ADVIL 200 MG ORAL TABLET 947025 IBUPROFEN Inactive BENADRYL ALLERGY 25 MG ORAL TABLET NEEDED BENADRYL ALLERGY 25 MG ORAL TABLET 6139745 DIPHENHYDRAMINE HCL Inactive FLONASE ALLERGY RELIEF 50 MCG/ACT NASAL SUSPENSION One spray each nostril daily for allergies FLONASE ALLERGY RELIEF 50 MCG/ACT NASAL SUSPENSION 0748774 FLUTICASONE PROPIONATE Inactive MIRALAX ORAL PACKET Takes daily prn MIRALAX ORAL PACKET 511051 POLYETHYLENE GLYCOL 3350 Inactive AUGMENTIN 875-125 MG ORAL TABLET 1 po BID x 7 days AUGMENTIN 875-125 MG ORAL TABLET 065333 AMOXICILLIN-POT CLAVULANATE Inactive HYDROCHLOROTHIAZIDE 12.5 MG ORAL CAPSULE 1 pill by mouth daily, for blood pressure HYDROCHLOROTHIAZIDE 12.5 MG ORAL CAPSULE HYDROCHLOROTHIAZIDE Inactive CIPRO 250 MG ORAL TABLET 1 tab BID for 7 days CIPRO 250 MG ORAL TABLET 819427 CIPROFLOXACIN HCL Inactive VITAMIN D3 2000 UNIT ORAL TABLET 1 daily, for vitamin D deficiency VITAMIN D3 2000 UNIT ORAL TABLET CHOLECALCIFEROL Inactive PREDNISONE 10 MG ORAL TABLET 2 daily for 5 days then 1 daily for 5 days 05/25 PREDNISONE 10 MG ORAL TABLET 439801 PREDNISONE Inactive HYDROCHLOROTHIAZIDE 12.5 MG ORAL CAPSULE 1 pill by mouth daily HYDROCHLOROTHIAZIDE 12.5 MG ORAL CAPSULE HYDROCHLOROTHIAZIDE Inactive AMOXICILLIN 500 MG ORAL CAPSULE 1 tab by mouth 3 times daily 2011 AMOXICILLIN 500 MG ORAL CAPSULE 116742 AMOXICILLIN Inactive BACTRIM DS 800-160 MG ORAL TABLET 1 pill by mouth twice daily, for UTI 01/29 BACTRIM DS 800-160 MG ORAL TABLET 483464 SULFAMETHOXAZOLE- TRIMETHOPRIM Inactive MACROBID 100 MG ORAL CAPSULE 1 tab BID for 5 days MACROBID 100 MG ORAL CAPSULE 4820754 NITROFURANTOIN MONOHYD MACRO Inactive Advance Directives Directive [...] Panel - Chemistry sodium, serum 132 mmol/L 961-400 1852/08/09 potassium, serum 4.2 mmol/L 3.5-5.2 chloride, serum 99 mmol/L 98-107 carbon dioxide, venous blood 24.7 mmol/L 21.0-32.0 blood glucose 119 mg/dL 65-110 calcium, serum 8.5 mg/dL 8.5-10.1 urea nitrogen, blood 14 mg/dL 7-18 creatinine, serum 1.16 mg/dL 0.60-1.30 Lab Report: CBC-QUEST, COMPREHENSIVE METABOLIC PANEL, LIPID PANEL, Micro ... - Chemistry cholesterol, serum 162 mg/dL 095-407 3979/05/01 HDL cholesterol, serum 68 mg/dL > OR=46 [...] % 11.0-15.0 platelet count 297 THOUSAND/UL 10*3/mm3 133-179 8299/05/01 mean platelet volume 8.9 fL 7.5-12.5 Lab Report: CBC-QUEST, COMPREHENSIVE METABOLIC PANEL, LIPID PANEL, Micro ... - Urinalysis microalbumin/total urine volume <0.2 mg/dL mg/L microalbumin/creatinine ratio, urine NOTE mcg/mg creat mg/L <30 Lab Report: Erythrocyte Sed Rate, Thyroid Stimulating Hormone (L), Basic ... - Chemistry TSH 1.13 m[iU]/mL 0.36-3.74 sodium, serum 139 mmol/L 404-193 9152/01/10 potassium, serum 3.8 mmol/L 3.5-5.2 chloride, serum [...] 5.0-8.5 Encounters Code Encounter Date Provider Facility CPT-22674 Level 4 Est. Patient 11:50:58 MAINTENANCE EQUIPMENT OPERATOR Jalil Hayes MD [facility] CPT-37871 Level 4 Est. Patient 12:35:27 MAINTENANCE EQUIPMENT OPERATOR Jalil Hayes MD [facility] CPT-46160 Level 3 Est. Patient 13:55:49 CDT Jalil Hayes MD [facility] CPT-40253 Level 3 Est. Patient 14:38:15 CDT Jalil Hayes MD [facility]-44439 Level 4 Est. Patient 14:40:54 CDT Bee Rosas [facility] CPT-58726 Level 4 Est. Patient 10:31:15 CDT Jalil Hayes MD [facility]-42128 Level 4 Est. Patient 15:07:54 CDT Mariaa Whitman [facility] CPT-80728 Level 3 Est. Patient 20:45:54 MAINTENANCE EQUIPMENT OPERATOR Mariaa Lauxuanbeckie [facility] CPT-03546 Level 3 Est. Patient 12:16:16 CDT Ana Cristina Vallejo MD PhD [facility]-02495 Level 4 Est. Patient 12:49:21 CDT Ana Cristina Vallejo MD [facility] CPT-52806 Level 4 Est. Patient 23:02:25 CDT Ana Cristina Vallejo MD [facility] CPT-44994 Level 4 Est. Patient 19:26:33 MAINTENANCE EQUIPMENT OPERATOR Ana Cristina Vallejo MD [facility] CPT-20667 Level 4 Est. Patient 11:28:14 CDT Ana Cristina Vallejo MD [facility] CPT-41717 Level 4 Est. Patient 15:35:46 MAINTENANCE EQUIPMENT OPERATOR Ana Cristina Vallejo MD [facility] CPT-93276 Level 3 Est. Patient 21:06:39 MAINTENANCE EQUIPMENT OPERATOR Alden Kim MD [facility] CPT-14154 Level 4 Est. Patient 15:30:54 MAINTENANCE EQUIPMENT OPERATOR Ana Cristina Vallejo MD PhD [facility] Procedures Code Procedure Name Date Entry Date Standard Description CPT-G0439 [facility] Annual Wellness Exam 11:53:01 MAINTENANCE EQUIPMENT OPERATOR CPT-82714 First Vx - Ix admin for Medicare patients 13:35:01 CDT CPT-06885 Fluzone High-Dose Intramuscular Suspension 13:35:01 CDT CPT-TCMM Transitional Care Mgmt-Moderate 14:41:55 CDT CPT-05336 EKG Trac and Interp - XRAY USE ONLY 10:35:11 CDT 09/11 CPT-71153 Chest 2V Frontal and Lat - XRAY USE ONLY 10:35:11 CDT CPT-G0438 Initial Annual Wellness Exam 14:54:07 CDT CPT-G0009 Administration of Pneumococcal Vaccine 14:44:24 CDT CPT-39242 Pneumovax 23 Injection Injectable 25 MCG/0.5ML 14:44:24 CDT CPT-27531 First Vx - Ix admin for Medicare patients 14:44:24 CDT CPT-09134 Fluzone High-Dose Intramuscular Suspension 14:44:20 CDT CPT-47036 BMP - LAB USE ONLY 12:38:06 CDT CPT-31587 Urine Culture - LAB USE ONLY 16:56:33 CDT CPT-TCMM Transitional Care Mgmt-Moderate 18:08:16 CDT CPT-92709 Bone Density 09:14:12 CDT CPT-000 Give Appropriate Flu Vaccine 14:51:52 CDT CPT-44124 Fluzone High Dose (>=65 yrs.) 15:19:23 CDT CPT-54736 Immunization Single Admin 15:19:23 CDT CPT-46714 Prevnar 13 15:40:03 CDT CPT-35421 Administration single or combination vaccine inc oral 15 :40:03 CDT CPT-87124 Prevnar 13 13:55:07 CDT CPT-G0008 Administration of Influenza Virus Vaccine 10:49:51 CDT CPT-01770 Fluzone High-Dose Intramuscular Suspension 10:49:51 CDT CPT-31050 Knee 3V 13:31:37 CDT CPT-00320 Bone Density 09:07:05 MAINTENANCE EQUIPMENT OPERATOR CPT-76179 Nail Avulsion 09:46:05 CDT CPT-69256 Administration single or combination vaccine inc oral 16 :11:54 CDT CPT-50784 Influenza High Dose age 65+ 16:11:54 CDT CPT-77926 Administration single or combination vaccine inc oral 10 :53:15 CDT CPT-70640 Influenza High Dose age 65+ 10:53:15 CDT CPT-10245 Bone Density 14:50:58 MAINTENANCE EQUIPMENT OPERATOR CPT-78011 Administration single or combination vaccine inc oral 15 :41:20 MAINTENANCE EQUIPMENT OPERATOR CPT-30212 Zoster Vaccine (Zostavax) 15:41:20 MAINTENANCE EQUIPMENT OPERATOR CPT-92704 Spec Collection and Handling Fee 11:18:25 MAINTENANCE EQUIPMENT OPERATOR CPT-16354 Administration single or combination vaccine inc oral 11 :14:20 CDT CPT-82822 Influenza High Dose age 65+ 11:14:20 CDT
--- OUTSIDE RECORDS SUMMARY | 2017-07-18 08:43 | XMS REPORT | Clinical Summary ---
Author Author Admin, QIE Organization [facility] [employer] Address Unknown Phone Unavailable Allergies, Adverse Reactions, Alerts Allergy Name Reaction Description Start Date Severity Status Provider No Known Allergies Jackelin Barth RPT,RMA NKDA Critical Active Mariaa Whitman TELLER HEAD Conditions or Problems Problem Name Problem Code [...] not specified Mental status change 780.97 Active aMriaa Whitman APRN Altered mental status Medication management [...] PACK Takes daily prn POLYETHYLENE GLYCOL 3350 98905722607 Active Mariaa Whitman APRN Active ALENDRONATE SODIUM 70 MG TABS 1 pill by mouth weekly for osteoporosis ALENDRONATE SODIUM 57793012597 Active Brianda KNOTT Active E-1000 1000 UNIT ORAL CAPS Take one by mouth daily VITAMIN E 99223218038 Active Brianda KNOTT Active OSCAL 500/200 D-3 500-200 MG-UNIT ORAL TABS Take one by mouth 3 times daily, morning, afternoon and evening.] CALCIUM CARBONATE-VITAMIN D 24985476584 Active Brianda KNOTT Active ASPIRIN 81 MG CHEW TAB 1 tablet by mouth daily ASPIRIN 78787664736 Active Brianda RICK Active ADULT ASPIRIN EC LOW STRENGTH 81 MG TBEC TAKE 1 TAB DAILY ASPIRIN 72542184809 No Longer Active Mariaa Whitman APRN Active ALENDRONATE SODIUM 70 MG TABS TAKE 1 TAB ONCE A WEEK ALENDRONATE SODIUM 62433009030 No Longer Active Mariaa Whitman APRN Active FLONASE ALLERGY RELIEF 50 MCG/ACT NASAL SUSP One spray each nostril daily for allergies FLUTICASONE PROPIONATE 33205428794 Active Mariaa Whitman APRN Active CETIRIZINE HCL 10 MG ORAL TABS 1 po qd PRN Allergies CETIRIZINE HCL 06787391717 Active Mariaa Whitman APRN Active BACTRIM DS 800-160 MG TABS 1 pill by mouth twice daily, for UTI SULFAMETHOXAZOLE-TRIMETHOPRIM 40490459911 No Longer Active Ana Cristina Vallejo MD PhD Active HYDROCHLOROTHIAZIDE 12.5 MG CAPS 1 pill by mouth daily, for blood pressure HYDROCHLOROTHIAZIDE 44837602552 Active Mariaa Whitman APRN Active CARVEDILOL 25 MG TABS 1 pill by mouth twice daily for blood pressure CARVEDILOL 32202316892 Active Mariaa Whitman APRN Active SYNTHROID 0.088 MG TAB 1 tablet by mouth daily for thyroid LEVOTHYROXINE SODIUM 63573083833 Active Mariaa Whitman TELLER HEAD Active AMOXICILLIN 500 MG CAP 1 tab by mouth 3 times daily AMOXICILLIN 87585265075 No Longer Active Alden Kim MD Active [facility] VITAMIN D3 1000 UNIT CAPS TAKE 2 CAP DAILY CHOLECALCIFEROL Active Ana Cristina Vallejo MD PhD Active CALCIUM 500 MG TABS TAKE 3 TABS DAILY CALCIUM 66537780787 No Longer Active Mariaa Demetrioum TELLER HEAD Active MULTIVITAMINS TABS TAKE 1 TAB DAILY MULTIPLE VITAMIN Active Aneta D Leo TELEPHONE STATION INSTALLER Active BENADRYL ALLERGY 25 MG TABS NEEDED DIPHENHYDRAMINE HCL 17210746024 Active Aneta D Leo TELEPHONE STATION INSTALLER Active TYLENOL 325 MG TABS NEEDED ACETAMINOPHEN 79788641389 Active Aneta D Leo TELEPHONE STATION INSTALLER Active ADVIL 200 MG TABS TAKE NEEDED IBUPROFEN 99793894156 Active Aneta D Leo TELEPHONE STATION INSTALLER Active GLUCOSAMINE-CHONDROITIN 500-400 MG TABS TAKE 1 TAB DAILY GLUCOSAMINE-CHONDROITIN 62103423292 Active Mariaa Yokum TELLER HEAD Active NORVASC 10 MG TABS TAKE 1 TAB DAILY AMLODIPINE BESYLATE 61731732015 Active Mariaa Yokum TELLER HEAD Active BENAZEPRIL HCL 40 MG TABS 1 PO BID BENAZEPRIL HCL 85694539036 Active Mariaadomenico Atkinsonum TELLER HEAD Active LOVASTATIN 20 MG TABS 1 PO Q HS FOR CHOLESTEROL LOVASTATIN 92366427955 Active Mariaadomenico Atkinsonum TELLER HEAD Active RANITIDINE HCL 150 MG CAPS 1 PO Q 12 HRS RANITIDINE HCL 86874446703 Active Mariaa Demetrioum TELLER HEAD Active ALENDRONATE SODIUM 70 MG TABS TAKE 1 TAB ONCE A WEEK ALENDRONATE SODIUM 70 MG TABS 180455 ALENDRONATE SODIUM Inactive ADULT ASPIRIN EC LOW STRENGTH 81 MG TBEC TAKE 1 TAB DAILY ADULT ASPIRIN EC LOW STRENGTH 81 MG TBEC 671103 ASPIRIN Inactive AMOXICILLIN 500 MG CAP 1 tab by mouth 3 times daily AMOXICILLIN 500 MG CAP 892373 AMOXICILLIN Inactive BACTRIM DS 800-160 MG TABS 1 pill by mouth twice daily, for UTI BACTRIM DS 800-160 MG TABS 766365 SULFAMETHOXAZOLE-TRIMETHOPRIM Inactive Advance Directives Directive Description Start [...] Panel - Chemistry sodium, serum 130 mmol/L 558-448 3249/10/19 potassium, serum 3.5 mmol/L 3.5-5.2 chloride, serum [...] 1.41 ng/dL 0.76-1.46 cholesterol, serum 166 mg/dL 022-550 9641/04/20 triglyceride, serum, fasting 68 mg/dL 30-200 HDL cholesterol, serum 88 mg/dL 32-96 LDL cholesterol, serum 64 mg/dL 0-130 sodium, serum 132 mmol/L 000-874 0337/04/20 carbon dioxide, venous blood 31.3 mmol/L 21.0-32.0 [...] 5.0-8.5 Encounters Code Encounter Date Provider Facility CPT-68630 Level 4 Est. Patient 15:07:54 CDT Mariaa Whitman [facility] CPT-55119 Level 3 Est. Patient 20:45:54 MAINTENANCE DEPARTMENT TECHNICIAN Mariaa Whitman [facility] CPT-23924 Level 3 Est. Patient 12:16:16 CDT Ana Cristina Vallejo MD [facility] CPT-91893 Level 4 Est. Patient 12:49:21 CDT Ana Cristina Vallejo MD [facility] CPT-47902 Level 4 Est. Patient 23:02:25 CDT Ana Cristina Vallejo MD [facility] CPT-88031 Level 4 Est. Patient 19:26:33 MAINTENANCE DEPARTMENT TECHNICIAN Ana Cristina Vallejo MD [facility] CPT-01666 Level 4 Est. Patient 11:28:14 CDT Ana Cristina Vallejo MD [facility] CPT-95520 Level 4 Est. Patient 15:35:46 MAINTENANCE DEPARTMENT TECHNICIAN Ana Cristina Vallejo MD [facility] CPT-11890 Level 3 Est. Patient 21:06:39 MAINTENANCE DEPARTMENT TECHNICIAN Alden Kim MD [facility] CPT-06028 Level 4 Est. Patient 15:30:54 MAINTENANCE DEPARTMENT TECHNICIAN Ana Cristina Vallejo MD [facility] Procedures Code Procedure Name Date Entry Date Standard Description CPT-G0009 Administration of Pneumococcal Vaccine 14:44:24 CDT CPT-21878 Pneumovax 23 Injection Injectable 25 MCG/0.5ML 14:44:24 CDT CPT-82398 First Vx - Ix admin for Medicare patients 14:44:24 CDT CPT-37816 Fluzone High-Dose Intramuscular Suspension 14:44:20 CDT CPT-75307 BMP - LAB USE ONLY 12:38:06 CDT CPT-68490 Urine Culture - LAB USE ONLY 16:56:33 CDT CPT-TCMM Transitional Care Mgmt-Moderate 18:08:16 CDT CPT-70873 Bone Density 09:14:12 CDT CPT-000 Give Appropriate Flu Vaccine 14:51:52 CDT CPT-22257 Fluzone High Dose (>=65 yrs.) 15:19:23 CDT CPT-86299 Immunization Single Admin 15:19:23 CDT CPT-29619 Prevnar 13 15:40:03 CDT CPT-03642 Administration single or combination vaccine inc oral 15 :40:03 CDT CPT-47732 Prevnar 13 13:55:07 CDT CPT-G0008 Administration of Influenza Virus Vaccine 10:49:51 CDT CPT-37239 Fluzone High-Dose Intramuscular Suspension 10:49:51 CDT CPT-18315 Knee 3V 13:31:37 CDT CPT-00228 Bone Density 09:07:05 MAINTENANCE DEPARTMENT TECHNICIAN CPT-39730 Nail Avulsion 09:46:05 CDT CPT-76936 Administration single or combination vaccine inc oral 16 :11:54 CDT CPT-33871 Influenza High Dose age 65+ 16:11:54 CDT CPT-04490 Administration single or combination vaccine inc oral 10 :53:15 CDT CPT-07833 Influenza High Dose age 65+ 10:53:15 CDT CPT-94120 Bone Density 14:50:58 MAINTENANCE DEPARTMENT TECHNICIAN CPT-89392 Administration single or combination vaccine inc oral 15 :41:20 MAINTENANCE DEPARTMENT TECHNICIAN CPT-28610 Zoster Vaccine (Zostavax) 15:41:20 MAINTENANCE DEPARTMENT TECHNICIAN CPT-93271 Spec Collection and Handling Fee 11:18:25 MAINTENANCE DEPARTMENT TECHNICIAN CPT-30041 Administration single or combination vaccine inc oral 11 :14:20 CDT CPT-99422 Influenza High Dose age 65+ 11:14:20 CDT
--- OUTSIDE RECORDS SUMMARY | 2017-07-18 08:43 | XMS REPORT | Clinical Summary ---
Author Author Admin, DANDRE Organization [facility] Address Unknown Phone Unavailable Allergies, Adverse Reactions, Alerts Allergy Name Reaction Description Start Date Severity Status Provider NKDA Critical Active Mariaa Whitman VITAMIN MANAGER Conditions or Problems Problem Name Problem Code Onset Date Status Entry Date Provider Comment Standard Description Annotate ROUTINE GYNECOLOGICAL EXAMINATION V72.31 Resolved Ana Cristina Vallejo MD PhD Routine gynecological examination MENOPAUSE 627.2 Ruled out Ana Cristina Vallejo MD PhD Symptomatic menopausal or female climacteric states MENOPAUSE 627.2 Active Brianda Reis [facility] Symptomatic menopausal or female climacteric [...] MD Dysuria Forgetfulness 780.99 Active Radha Jones VITAMIN MANAGER Other general symptoms Unsteady gait 781.2 Active [...] daily for blood pressure and swelling FUROSEMIDE 61189838301 Active Jalil Hayes MD Active HYDROCHLOROTHIAZIDE 12.5 MG ORAL CAPSULE 1 pill by mouth daily HYDROCHLOROTHIAZIDE 28583562708 No Longer Active Jalil Hayes MD Active PREDNISONE 10 MG ORAL TABLET 2 daily for 5 days then 1 daily for 5 days 05/25 PREDNISONE 43441265620 No Longer Active Jalil Hayes MD Active VITAMIN D3 2000 UNIT ORAL TABLET 1 daily, for vitamin D deficiency CHOLECALCIFEROL 81085431713 No Longer Active Radha Jones APRN Active CIPRO 250 MG ORAL TABLET 1 tab BID for 7 days CIPROFLOXACIN HCL 65580535513 No Longer Active Radha Jones APRN Active VITAMIN D3 2000 UNIT ORAL CAPSULE 1 capsule po daily CHOLECALCIFEROL 25307400630 Active Aneta Bailey LPN Active EQL ONE DAILY WOMENS ORAL TABLET 1 po daily MULTIPLE VITAMINS- CALCIUM 06968193855 Active Aneta Tavarezum JOURNEYMAN PATTERNMAKER Active MACROBID 100 MG ORAL CAPSULE 1 tab BID for 5 days NITROFURANTOIN MONOHYD MACRO 44537703894 No Longer Active Deepti Madl JOURNEYMAN PATTERNMAKER Active RANITIDINE HCL 150 MG ORAL CAPSULE once nightly RANITIDINE HCL 56967214063 Active Aneta Tavarezum JOURNEYMAN PATTERNMAKER Active BENAZEPRIL HCL 40 MG ORAL TABLET 1 daily for blood pressure BENAZEPRIL HCL 57652421446 Active Jalil Hayes MD Active HYDROCHLOROTHIAZIDE 12.5 MG ORAL CAPSULE 1 pill by mouth daily, for blood pressure HYDROCHLOROTHIAZIDE 33301980245 No Longer Active Jalil Hayes MD Active AUGMENTIN 875-125 MG ORAL TABLET 1 po BID x 7 days AMOXICILLIN-POT CLAVULANATE 67965840608 No Longer Active Jalil Hayes MD Active OMEPRAZOLE 40 MG ORAL CAPSULE DELAYED RELEASE 1 po q a.m. OMEPRAZOLE 24589156366 Active HEDY Esquivel Active MIRALAX ORAL PACKET Takes daily prn POLYETHYLENE GLYCOL 3350 80491034504 No Longer Active Peggy Pardo LPN Active FLONASE ALLERGY RELIEF 50 MCG/ACT NASAL SUSPENSION One spray each nostril daily for allergies FLUTICASONE PROPIONATE 49812658397 No Longer Active Peggy Pardo LPN Active BENADRYL ALLERGY 25 MG ORAL TABLET NEEDED DIPHENHYDRAMINE HCL 25160274709 No Longer Active Peggy Pardo LPN Active ADVIL 200 MG ORAL TABLET TAKE NEEDED IBUPROFEN 99835682559 No Longer Active Peggy Pardo LPN Active COLACE 100 MG ORAL CAPSULE 1 po BID PRN Constipation DOCUSATE SODIUM 74766721635 No Longer Active Deepti Junior LPN Active ALPRAZOLAM 0.25 MG ORAL TABLET 1/2-1 tablet by mouth twice a day as needed for stress ALPRAZOLAM 85678244251 No Longer Active Deepti Junior LPN Active ALENDRONATE SODIUM 70 MG ORAL TABLET 1 pill by mouth weekly for osteoporosis ALENDRONATE SODIUM 00703647471 Active Aneta Bailey LPN Active E-1000 1000 UNIT ORAL CAPSULE Take one by mouth daily VITAMIN E 20776893163 Active Aneta Bailey LPN Active OSCAL 500/200 D-3 500-200 MG-UNIT ORAL TABLET Take one by mouth 3 times daily , morning, afternoon and evening.] CALCIUM CARBONATE-VITAMIN D 86691093682 Active Aneta Bailey LPN Active ASPIRIN 81 MG ORAL TABLET CHEWABLE 1 tablet by mouth daily ASPIRIN 29697704000 Active Aneta Bailey LPN Active ADULT ASPIRIN EC LOW STRENGTH 81 MG ORAL TABLET DELAYED RELEASE TAKE 1 TAB DAILY ASPIRIN 55902905376 No Longer Active Mariaa Whitman APRN Active ALENDRONATE SODIUM 70 MG ORAL TABLET TAKE 1 TAB ONCE A WEEK 01/20 ALENDRONATE SODIUM 64803020663 No Longer Active Mariaa Wihtman APRN Active CETIRIZINE HCL 10 MG ORAL TABLET 1 po qd PRN Allergies CETIRIZINE HCL 47996811052 Active HEDY Esquivel Active BACTRIM DS 800-160 MG ORAL TABLET 1 pill by mouth twice daily, for UTI 01/29 SULFAMETHOXAZOLE-TRIMETHOPRIM 30049282774 No Longer Active Ana Cristina Vallejo MD PhD Active CARVEDILOL 25 MG ORAL TABLET 1 pill by mouth twice daily for blood pressure CARVEDILOL 43076358625 Active Aneta Tavarezum YULIET Active SYNTHROID 88 MCG ORAL TABLET 1 tablet by mouth daily for thyroid LEVOTHYROXINE SODIUM 69173389947 Active HEDY Esquivel Active AMOXICILLIN 500 MG ORAL CAPSULE 1 tab by mouth 3 times daily 2011 AMOXICILLIN 42363350006 No Longer Active Alden Kim MD Active CALCIUM 500 MG ORAL TABLET TAKE 3 TABS DAILY CALCIUM 25480255372 No Longer Active Mariaa Whitman APRN Active MULTIVITAMINS TABS TAKE 1 TAB DAILY MULTIPLE VITAMIN No Longer Active Aneta Tavarezum JOURNEYMAN PATTERNMAKER Active TYLENOL 325 MG ORAL TABLET NEEDED ACETAMINOPHEN 88569328547 Active Aneta Tavarezum JOURNEYMAN PATTERNMAKER Active GLUCOSAMINE-CHONDROITIN 500-400 MG ORAL TABLET TAKE 1 TAB DAILY GLUCOSAMINE-CHONDROITIN 59810344457 Active Aneta Bailey LPN Active NORVASC 10 MG ORAL TABLET TAKE 1 TAB DAILY AMLODIPINE BESYLATE 53984366134 Active Aneta Tavarezum JOURNEYMAN PATTERNMAKER Active LOVASTATIN 20 MG ORAL TABLET 1 PO Q HS FOR CHOLESTEROL LOVASTATIN 57445866261 Active HEDY Esquivel Active ALENDRONATE SODIUM 70 MG ORAL TABLET TAKE 1 TAB ONCE A WEEK 01/20 ALENDRONATE SODIUM 70 MG ORAL TABLET 383344 ALENDRONATE SODIUM Inactive ADULT ASPIRIN EC LOW STRENGTH 81 MG ORAL TABLET DELAYED RELEASE TAKE 1 TAB DAILY ADULT ASPIRIN EC LOW STRENGTH 81 MG ORAL TABLET DELAYED RELEASE 154128 ASPIRIN Inactive ALPRAZOLAM 0.25 MG ORAL TABLET 1/2-1 tablet by mouth twice a day as needed for stress ALPRAZOLAM 0.25 MG ORAL TABLET 697034 ALPRAZOLAM Inactive COLACE 100 MG ORAL CAPSULE 1 po BID PRN Constipation COLACE 100 MG ORAL CAPSULE 6957528 DOCUSATE SODIUM Inactive ADVIL 200 MG ORAL TABLET TAKE NEEDED ADVIL 200 MG ORAL TABLET 596187 IBUPROFEN Inactive BENADRYL ALLERGY 25 MG ORAL TABLET NEEDED BENADRYL ALLERGY 25 MG ORAL TABLET 0116130 DIPHENHYDRAMINE HCL Inactive FLONASE ALLERGY RELIEF 50 MCG/ACT NASAL SUSPENSION One spray each nostril daily for allergies FLONASE ALLERGY RELIEF 50 MCG/ACT NASAL SUSPENSION 1442710 FLUTICASONE PROPIONATE Inactive MIRALAX ORAL PACKET Takes daily prn MIRALAX ORAL PACKET 088668 POLYETHYLENE GLYCOL 3350 Inactive AUGMENTIN 875-125 MG ORAL TABLET 1 po BID x 7 days AUGMENTIN 875-125 MG ORAL TABLET 883209 AMOXICILLIN-POT CLAVULANATE Inactive HYDROCHLOROTHIAZIDE 12.5 MG ORAL CAPSULE 1 pill by mouth daily, for blood pressure HYDROCHLOROTHIAZIDE 12.5 MG ORAL CAPSULE HYDROCHLOROTHIAZIDE Inactive CIPRO 250 MG ORAL TABLET 1 tab BID for 7 days CIPRO 250 MG ORAL TABLET 117317 CIPROFLOXACIN HCL Inactive VITAMIN D3 2000 UNIT ORAL TABLET 1 daily, for vitamin D deficiency VITAMIN D3 2000 UNIT ORAL TABLET CHOLECALCIFEROL Inactive PREDNISONE 10 MG ORAL TABLET 2 daily for 5 days then 1 daily for 5 days 05/25 PREDNISONE 10 MG ORAL TABLET 172860 PREDNISONE Inactive HYDROCHLOROTHIAZIDE 12.5 MG ORAL CAPSULE 1 pill by mouth daily HYDROCHLOROTHIAZIDE 12.5 MG ORAL CAPSULE HYDROCHLOROTHIAZIDE Inactive AMOXICILLIN 500 MG ORAL CAPSULE 1 tab by mouth 3 times daily 2011 AMOXICILLIN 500 MG ORAL CAPSULE 866839 AMOXICILLIN Inactive BACTRIM DS 800-160 MG ORAL TABLET 1 pill by mouth twice daily, for UTI 01/29 BACTRIM DS 800-160 MG ORAL TABLET 512986 SULFAMETHOXAZOLE- TRIMETHOPRIM Inactive MACROBID 100 MG ORAL CAPSULE 1 tab BID for 5 days MACROBID 100 MG ORAL CAPSULE 8357377 NITROFURANTOIN MONOHYD MACRO Inactive Advance Directives Directive [...] Panel - Chemistry sodium, serum 132 mmol/L 730-740 5832/08/09 potassium, serum 4.2 mmol/L 3.5-5.2 chloride, serum 99 mmol/L 98-107 carbon dioxide, venous blood 24.7 mmol/L 21.0-32.0 blood glucose 119 mg/dL 65-110 calcium, serum 8.5 mg/dL 8.5-10.1 urea nitrogen, blood 14 mg/dL 7-18 creatinine, serum 1.16 mg/dL 0.60-1.30 Lab Report: CBC-QUEST, COMPREHENSIVE METABOLIC PANEL, LIPID PANEL, Micro ... - Chemistry cholesterol, serum 162 mg/dL 611-318 1953/05[birth year]01 HDL cholesterol, serum 68 mg/dL > OR=46 [...] % 11.0-15.0 platelet count 297 THOUSAND/UL 10*3/mm3 098-118 3615/05/01 mean platelet volume 8.9 fL 7.5-12.5 Lab Report: CBC-QUEST, COMPREHENSIVE METABOLIC PANEL, LIPID PANEL, Micro ... - Urinalysis microalbumin/total urine volume <0.2 mg/dL mg/L microalbumin/creatinine ratio, urine NOTE mcg/mg creat mg/L <30 Lab Report: Erythrocyte Sed Rate, Thyroid Stimulating Hormone (L), Basic ... - Chemistry TSH 1.13 m[iU]/mL 0.36-3.74 sodium, serum 139 mmol/L 706-646 3507/01/10 potassium, serum 3.8 mmol/L 3.5-5.2 chloride, serum [...] 5.0-8.5 Encounters Code Encounter Date Provider Facility CPT-08675 Level 4 Est. Patient 11:50:58 CONSTRUCTION OR LEAK GANG LABORER Jalil Hayes MD [facility] CPT-73815 Level 4 Est. Patient 12:35:27 CONSTRUCTION OR LEAK GANG LABORER Jalil Hayes MD [facility] CPT-40262 Level 3 Est. Patient 13:55:49 CDT Jalil Hayes MD [facility] CPT-55958 Level 3 Est. Patient 14:38:15 CDT Jalil Hayes MD [facility]-50415 Level 4 Est. Patient 14:40:54 CDT Bee Rosas [facility] CPT-15343 Level 4 Est. Patient 10:31:15 CDT Jalil Hayes MD [facility]-88811 Level 4 Est. Patient 15:07:54 CDT Mariaa Whitman [facility] CPT-91639 Level 3 Est. Patient 20:45:54 CONSTRUCTION OR LEAK GANG LABORER Mariaa Lauxuanbeckie [facility] CPT-49553 Level 3 Est. Patient 12:16:16 CDT Ana Cristina Vallejo MD PhD [facility] [place][note 2]-59679 Level 4 Est. Patient 12:49:21 CDT Ana Cristina Vallejo MD [facility] CPT-19096 Level 4 Est. Patient 23:02:25 CDT Ana Cristina Vallejo MD [facility] CPT-72299 Level 4 Est. Patient 19:26:33 CONSTRUCTION OR LEAK GANG LABORER Ana Cristina Vallejo MD [facility] CPT-35039 Level 4 Est. Patient 11:28:14 CDT Ana Cristina Vallejo MD [facility] CPT-32535 Level 4 Est. Patient 15:35:46 CONSTRUCTION OR LEAK GANG LABORER Ana Cristina Vallejo MD [facility] CPT-13829 Level 3 Est. Patient 21:06:39 CONSTRUCTION OR LEAK GANG LABORER Alden Kim MD [facility] CPT-40136 Level 4 Est. Patient 15:30:54 CONSTRUCTION OR LEAK GANG LABORER Ana Cristina Vallejo MD PhD [facility] Procedures Code Procedure Name Date Entry Date Standard Description CPT-G0439 [facility] Annual Wellness Exam 11:53:01 CONSTRUCTION OR LEAK GANG LABORER CPT-60981 First Vx - Ix admin for Medicare patients 13:35:01 CDT CPT-22186 Fluzone High-Dose Intramuscular Suspension 13:35:01 CDT CPT-TCMM Transitional Care Mgmt-Moderate 14:41:55 CDT CPT-34106 EKG Trac and Interp - XRAY USE ONLY 10:35:11 CDT 09/11 CPT-71585 Chest 2V Frontal and Lat - XRAY USE ONLY 10:35:11 CDT CPT-G0438 Initial Annual Wellness Exam 14:54:07 CDT CPT-G0009 Administration of Pneumococcal Vaccine 14:44:24 CDT CPT-97782 Pneumovax 23 Injection Injectable 25 MCG/0.5ML 14:44:24 CDT CPT-25229 First Vx - Ix admin for Medicare patients 14:44:24 CDT CPT-18016 Fluzone High-Dose Intramuscular Suspension 14:44:20 CDT CPT-53144 BMP - LAB USE ONLY 12:38:06 CDT CPT-81491 Urine Culture - LAB USE ONLY 16:56:33 CDT CPT-TCMM Transitional Care Mgmt-Moderate 18:08:16 CDT CPT-08716 Bone Density 09:14:12 CDT CPT-000 Give Appropriate Flu Vaccine 14:51:52 CDT CPT-90154 Fluzone High Dose (>=65 yrs.) 15:19:23 CDT CPT-63041 Immunization Single Admin 15:19:23 CDT CPT-90308 Prevnar 13 15:40:03 CDT CPT-91001 Administration single or combination vaccine inc oral 15 :40:03 CDT CPT-93141 Prevnar 13 13:55:07 CDT CPT-G0008 Administration of Influenza Virus Vaccine 10:49:51 CDT CPT-00649 Fluzone High-Dose Intramuscular Suspension 10:49:51 CDT CPT-12954 Knee 3V 13:31:37 CDT CPT-92091 Bone Density 09:07:05 CONSTRUCTION OR LEAK GANG LABORER CPT-30102 Nail Avulsion 09:46:05 CDT CPT-01059 Administration single or combination vaccine inc oral 16 :11:54 CDT CPT-93413 Influenza High Dose age 65+ 16:11:54 CDT CPT-66264 Administration single or combination vaccine inc oral 10 :53:15 CDT CPT-02406 Influenza High Dose age 65+ 10:53:15 CDT CPT-70607 Bone Density 14:50:58 CONSTRUCTION OR LEAK GANG LABORER CPT-93502 Administration single or combination vaccine inc oral 15 :41:20 CONSTRUCTION OR LEAK GANG LABORER CPT-49997 Zoster Vaccine (Zostavax) 15:41:20 CONSTRUCTION OR LEAK GANG LABORER CPT-96814 Spec Collection and Handling Fee 11:18:25 CONSTRUCTION OR LEAK GANG LABORER CPT-42285 Administration single or combination vaccine inc oral 11 :14:20 CDT CPT-79706 Influenza High Dose age 65+ 11:14:20 CDT
--- OUTSIDE RECORDS SUMMARY | 2017-07-18 08:45 | XMS REPORT | Clinical Summary ---
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 Conditions or Problems Problem Name Problem Code Onset Date Status Entry Date Provider Comment Standard Description Annotate ROUTINE GYNECOLOGICAL EXAMINATION V72.31 Resolved Ana Cristina Vallejo MD PhD Routine gynecological examination MENOPAUSE 627.2 Ruled out Ana Cristina Vallejo MD PhD Symptomatic menopausal or female climacteric states MENOPAUSE 627.2 Active Brianda Reis [facility] Symptomatic menopausal or female climacteric [...] 1 daily, for vitamin D deficiency CHOLECALCIFEROL 27069177527 No Longer Active Radha Jones APRN Active CIPRO 250 MG ORAL TABLET 1 tab BID for 7 days CIPROFLOXACIN HCL 79214681308 No Longer Active Radha Jones APRN Active VITAMIN D3 2000 UNIT ORAL CAPSULE 1 capsule po daily CHOLECALCIFEROL 80937263366 Active HEDY Esquivel Active EQL ONE DAILY WOMENS ORAL TABLET 1 po daily MULTIPLE VITAMINS- CALCIUM 50718862174 Active HEDY Esquivel Active MACROBID 100 MG ORAL CAPSULE 1 tab BID for 5 days NITROFURANTOIN MONOHYD MACRO 27221682570 No Longer Active Deepti Junior LPN Active HYDROCHLOROTHIAZIDE 12.5 MG ORAL CAPSULE 1 pill by mouth daily HYDROCHLOROTHIAZIDE 36904400156 Active Jalil Hayes MD Active RANITIDINE HCL 150 MG ORAL CAPSULE once nightly RANITIDINE HCL 81103796791 Active Jalil Hayes MD Active BENAZEPRIL HCL 40 MG ORAL TABLET 1 daily for blood pressure BENAZEPRIL HCL 62154856274 Active Jalil Hayes MD Active HYDROCHLOROTHIAZIDE 12.5 MG ORAL CAPSULE 1 pill by mouth daily, for blood pressure HYDROCHLOROTHIAZIDE 04154162987 No Longer Active Jalil Hayes MD Active AUGMENTIN 875-125 MG ORAL TABLET 1 po BID x 7 days AMOXICILLIN-POT CLAVULANATE 36710696827 No Longer Active Jalil Hayes MD Active OMEPRAZOLE 40 MG ORAL CAPSULE DELAYED RELEASE 1 po q a.m. OMEPRAZOLE 96600718248 Active Peggy Pardo LPN Active MIRALAX ORAL PACKET Takes daily prn POLYETHYLENE GLYCOL 3350 17676311132 No Longer Active Peggy Pardo LPN Active FLONASE ALLERGY RELIEF 50 MCG/ACT NASAL SUSPENSION One spray each nostril daily for allergies FLUTICASONE PROPIONATE 42652877445 No Longer Active Peggy Pardo LPN Active BENADRYL ALLERGY 25 MG ORAL TABLET NEEDED DIPHENHYDRAMINE HCL 65917214907 No Longer Active Peggy Pardo LPN Active ADVIL 200 MG ORAL TABLET TAKE NEEDED IBUPROFEN 18752144327 No Longer Active Peggy Pardo LPN Active COLACE 100 MG ORAL CAPSULE 1 po BID PRN Constipation DOCUSATE SODIUM 62193575174 No Longer Active Deepti Junior LPN Active ALPRAZOLAM 0.25 MG ORAL TABLET 1/2-1 tablet by mouth twice a day as needed for stress ALPRAZOLAM 23771097843 No Longer Active Deepti Hamlinjaja HORVATH Active ALENDRONATE SODIUM 70 MG ORAL TABLET 1 pill by mouth weekly for osteoporosis ALENDRONATE SODIUM 67446284336 Active Mariaa Laudee LUGO Active E-1000 1000 UNIT ORAL CAPSULE Take one by mouth daily VITAMIN E 58223416920 Active HEDY Esquivel Active OSCAL 500/200 D-3 500-200 MG-UNIT ORAL TABLET Take one by mouth 3 times daily , morning, afternoon and evening.] CALCIUM CARBONATE-VITAMIN D 83282943292 Active HEDY Esquivel Active ASPIRIN 81 MG ORAL TABLET CHEWABLE 1 tablet by mouth daily ASPIRIN 20735134458 Active HEDY Esquivel Active ADULT ASPIRIN EC LOW STRENGTH 81 MG ORAL TABLET DELAYED RELEASE TAKE 1 TAB DAILY ASPIRIN 18589462795 No Longer Active Mariaa Laudee LUGO Active ALENDRONATE SODIUM 70 MG ORAL TABLET TAKE 1 TAB ONCE A WEEK 01/20 ALENDRONATE SODIUM 36755931382 No Longer Active Mariaa Atkinsonbeckie LUGO Active CETIRIZINE HCL 10 MG ORAL TABLET 1 po qd PRN Allergies CETIRIZINE HCL 44205776961 Active HEDY Esquivel Active BACTRIM DS 800-160 MG ORAL TABLET 1 pill by mouth twice daily, for UTI 01/29 SULFAMETHOXAZOLE-TRIMETHOPRIM 55678065772 No Longer Active Ana Cristina Vallejo MD PhD Active CARVEDILOL 25 MG ORAL TABLET 1 pill by mouth twice daily for blood pressure CARVEDILOL 04675252924 Active Aneta Bailey LPN Active SYNTHROID 88 MCG ORAL TABLET 1 tablet by mouth daily for thyroid LEVOTHYROXINE SODIUM 17543128928 Active HEDY Esquivel Active AMOXICILLIN 500 MG ORAL CAPSULE 1 tab by mouth 3 times daily 2011 AMOXICILLIN 18230645595 No Longer Active Alden Kim MD Active CALCIUM 500 MG ORAL TABLET TAKE 3 TABS DAILY CALCIUM 86689828468 No Longer Active Mariaa Whitman BIOMETRY TEACHER Active MULTIVITAMINS TABS TAKE 1 TAB DAILY MULTIPLE VITAMIN No Longer Active Anetajeannie Tavarezum MIXING OPERATOR Active TYLENOL 325 MG ORAL TABLET NEEDED ACETAMINOPHEN 75233617075 Active Aneta Tavarezum MIXING OPERATOR Active GLUCOSAMINE-CHONDROITIN 500-400 MG ORAL TABLET TAKE 1 TAB DAILY GLUCOSAMINE-CHONDROITIN 25805388340 Active Aneta Tavarezum MIXING OPERATOR Active NORVASC 10 MG ORAL TABLET TAKE 1 TAB DAILY AMLODIPINE BESYLATE 76108903162 Active Aneta Tavarezum MIXING OPERATOR Active LOVASTATIN 20 MG ORAL TABLET 1 PO Q HS FOR CHOLESTEROL LOVASTATIN 22473711396 Active HEDY Esquivel Active ALENDRONATE SODIUM 70 MG ORAL TABLET TAKE 1 TAB ONCE A WEEK 01/20 ALENDRONATE SODIUM 70 MG ORAL TABLET 461776 ALENDRONATE SODIUM Inactive ADULT ASPIRIN EC LOW STRENGTH 81 MG ORAL TABLET DELAYED RELEASE TAKE 1 TAB DAILY ADULT ASPIRIN EC LOW STRENGTH 81 MG ORAL TABLET DELAYED RELEASE 603623 ASPIRIN Inactive ALPRAZOLAM 0.25 MG ORAL TABLET 1/2-1 tablet by mouth twice a day as needed for stress ALPRAZOLAM 0.25 MG ORAL TABLET 242530 ALPRAZOLAM Inactive COLACE 100 MG ORAL CAPSULE 1 po BID PRN Constipation COLACE 100 MG ORAL CAPSULE 5061244 DOCUSATE SODIUM Inactive ADVIL 200 MG ORAL TABLET TAKE NEEDED ADVIL 200 MG ORAL TABLET 416107 IBUPROFEN Inactive BENADRYL ALLERGY 25 MG ORAL TABLET NEEDED BENADRYL ALLERGY 25 MG ORAL TABLET 2389939 DIPHENHYDRAMINE HCL Inactive FLONASE ALLERGY RELIEF 50 MCG/ACT NASAL SUSPENSION One spray each nostril daily for allergies FLONASE ALLERGY RELIEF 50 MCG/ACT NASAL SUSPENSION 6038247 FLUTICASONE PROPIONATE Inactive MIRALAX ORAL PACKET Takes daily prn MIRALAX ORAL PACKET 217258 POLYETHYLENE GLYCOL 3350 Inactive AUGMENTIN 875-125 MG ORAL TABLET 1 po BID x 7 days AUGMENTIN 875-125 MG ORAL TABLET 074304 AMOXICILLIN-POT CLAVULANATE Inactive HYDROCHLOROTHIAZIDE 12.5 MG ORAL CAPSULE 1 pill by mouth daily, for blood pressure HYDROCHLOROTHIAZIDE 12.5 MG ORAL CAPSULE HYDROCHLOROTHIAZIDE Inactive CIPRO 250 MG ORAL TABLET 1 tab BID for 7 days CIPRO 250 MG ORAL TABLET 283420 CIPROFLOXACIN HCL Inactive VITAMIN D3 2000 UNIT ORAL TABLET 1 daily, for vitamin D deficiency VITAMIN D3 2000 UNIT ORAL TABLET CHOLECALCIFEROL Inactive AMOXICILLIN 500 MG ORAL CAPSULE 1 tab by mouth 3 times daily 2011 AMOXICILLIN 500 MG ORAL CAPSULE 997353 AMOXICILLIN Inactive BACTRIM DS 800-160 MG ORAL TABLET 1 pill by mouth twice daily, for UTI 01/29 BACTRIM DS 800-160 MG ORAL TABLET 992039 SULFAMETHOXAZOLE- TRIMETHOPRIM Inactive MACROBID 100 MG ORAL CAPSULE 1 tab BID for 5 days MACROBID 100 MG ORAL CAPSULE 0674221 NITROFURANTOIN MONOHYD MACRO Inactive Advance Directives Directive [...] Panel - Chemistry sodium, serum 132 mmol/L 718-050 1240/08/09 potassium, serum 4.2 mmol/L 3.5-5.2 chloride, serum 99 mmol/L 98-107 carbon dioxide, venous blood 24.7 mmol/L 21.0-32.0 blood glucose 119 mg/dL 65-110 calcium, serum 8.5 mg/dL 8.5-10.1 urea nitrogen, blood 14 mg/dL 7-18 creatinine, serum 1.16 mg/dL 0.60-1.30 Lab Report: CBC-QUEST, COMPREHENSIVE METABOLIC PANEL, LIPID PANEL, Micro ... - Chemistry cholesterol, serum 162 mg/dL 585-329 8267/05/01 HDL cholesterol, serum 68 mg/dL > OR=46 [...] % 11.0-15.0 platelet count 297 THOUSAND/UL 10*3/mm3 197-269 0806/05/01 mean platelet volume 8.9 fL 7.5-12.5 Lab [...] 5.0-8.5 Encounters Code Encounter Date Provider Facility [facility]-[id number] Level 3 Est. Patient 13:55:49 CDT Jalil Hayes MD [facility]-04748 Level 3 Est. Patient 14:38:15 CDT Jalil Hayes MD [facility]03107 Level 4 Est. Patient 14:40:54 CDT Bee Rosas [facility]-60589 Level 4 Est. Patient 10:31:15 CDT Jalil Hayes MD [facility]-69466 Level 4 Est. Patient 15:07:54 CDT Mariaa Whitman [facility]-37285 Level 3 Est. Patient 20:45:54 FACIAL OPERATOR Mraiaa Whitman [facility] CPT-80935 Level 3 Est. Patient 12:16:16 CDT Ana Cristina Vallejo MD [facility]-37866 Level 4 Est. Patient 12:49:21 CDT Ana Cristina Vallejo MD [facility]23143 Level 4 Est. Patient 23:02:25 CDT Ana Cristina Vallejo MD [facility]69652 Level 4 Est. Patient 19:26:33 FACIAL OPERATOR Ana Cristina Vallejo MD PhD [facility] CPT-85264 Level 4 Est. Patient 11:28:14 CDT Ana Cristina Vallejo MD PhD [facility] CPT-31578 Level 4 Est. Patient 15:35:46 FACIAL OPERATOR Ana Cristina Vallejo MD PhD [facility] CPT-73534 Level 3 Est. Patient 21:06:39 FACIAL OPERATOR Alden Kim MD [facility] CPT-53061 Level 4 Est. Patient 15:30:54 FACIAL OPERATOR Ana Cristina Vallejo MD PhD [facility] Procedures Code Procedure Name Date Entry Date Standard Description CPT-G0439 Subsequent Annual Wellness Exam 11:53:01 FACIAL OPERATOR CPT-87869 First Vx - Ix admin for Medicare patients 13:35:01 CDT CPT-10769 Fluzone High-Dose Intramuscular Suspension 13:35:01 CDT CPT-TCMM Transitional Care Mgmt-Moderate 14:41:55 CDT CPT-90812 EKG Trac and Interp - XRAY USE ONLY 10:35:11 CDT 09/11 CPT-29808 Chest 2V Frontal and Lat - XRAY USE ONLY 10:35:11 CDT CPT-G0438 Initial Annual Wellness Exam 14:54:07 CDT CPT-G0009 Administration of Pneumococcal Vaccine 14:44:24 CDT CPT-78387 Pneumovax 23 Injection Injectable 25 MCG/0.5ML 14:44:24 CDT CPT-09312 First Vx - Ix admin for Medicare patients 14:44:24 CDT CPT-72242 Fluzone High-Dose Intramuscular Suspension 14:44:20 CDT CPT-15156 BMP - LAB USE ONLY 12:38:06 CDT CPT-52250 Urine Culture - LAB USE ONLY 16:56:33 CDT CPT-TCMM Transitional Care Mgmt-Moderate 18:08:16 CDT CPT-33419 Bone Density 09:14:12 CDT CPT-000 Give Appropriate Flu Vaccine 14:51:52 CDT CPT-57231 Fluzone High Dose (>=65 yrs.) 15:19:23 CDT CPT-09700 Immunization Single Admin 15:19:23 CDT CPT-77871 Prevnar 13 15:40:03 CDT CPT-05283 Administration single or combination vaccine inc oral 15 :40:03 CDT CPT-55267 Prevnar 13 13:55:07 CDT CPT-G0008 Administration of Influenza Virus Vaccine 10:49:51 CDT CPT-39439 Fluzone High-Dose Intramuscular Suspension 10:49:51 CDT CPT-70310 Knee 3V 13:31:37 CDT CPT-09057 Bone Density 09:07:05 FACIAL OPERATOR CPT-32888 Nail Avulsion 09:46:05 CDT CPT-18221 Administration single or combination vaccine inc oral 16 :11:54 CDT CPT-40492 Influenza High Dose age 65+ 16:11:54 CDT CPT-46314 Administration single or combination vaccine inc oral 10 :53:15 CDT CPT-67869 Influenza High Dose age 65+ 10:53:15 CDT CPT-61521 Bone Density 14:50:58 FACIAL OPERATOR CPT-49881 Administration single or combination vaccine inc oral 15 :41:20 FACIAL OPERATOR CPT-81646 Zoster Vaccine (Zostavax) 15:41:20 FACIAL OPERATOR CPT-90514 Spec Collection and Handling Fee 11:18:25 FACIAL OPERATOR CPT-75173 Administration single or combination vaccine inc oral 11 :14:20 CDT CPT-13109 Influenza High Dose age 65+ 11:14:20 CDT
--- OUTSIDE RECORDS SUMMARY | 2017-07-18 08:45 | XMS REPORT | Clinical Summary ---
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 Status Provider Patient Instruction COLACE 100 MG CAP 1 po BID PRN Constipation DOCUSATE SODIUM 69229878238 No Longer Active Deepti Madl PATIENT PARTNER Active ALPRAZOLAM 0.25 MG TAB 1/2-1 tablet by mouth twice a day as needed for stress ALPRAZOLAM 33224360428 No Longer Active Deepti Madl PATIENT PARTNER Active MIRALAX ORAL PACK Takes daily prn POLYETHYLENE GLYCOL 3350 99202872382 Active Mariaa Whitman APRN Active ALENDRONATE SODIUM 70 MG TABS 1 pill by mouth weekly for osteoporosis ALENDRONATE SODIUM 15391199347 Active Brianda Reis [facility] Active E-1000 1000 UNIT ORAL CAPS Take one by mouth daily VITAMIN E 22535933559 Active Brianda Reis [facility] Active OSCAL 500/200 D-3 500-200 MG-UNIT ORAL TABS Take one by mouth 3 times daily, morning, afternoon and evening.] CALCIUM CARBONATE-VITAMIN D 15690076648 Active Brianda [facility] Active ASPIRIN 81 MG CHEW TAB 1 tablet by mouth daily ASPIRIN 93319359388 Active Brianda [facility] Active ADULT ASPIRIN EC LOW STRENGTH 81 MG TBEC TAKE 1 TAB DAILY ASPIRIN 34680773464 No Longer Active Mariaa Whitman APRN Active ALENDRONATE SODIUM 70 MG TABS TAKE 1 TAB ONCE A WEEK ALENDRONATE SODIUM 58641180915 No Longer Active Mariaa Whitman GAS BOOSTER ENGINEER Active FLONASE ALLERGY RELIEF 50 MCG/ACT NASAL SUSP One spray each nostril daily for allergies FLUTICASONE PROPIONATE 97628376037 Active Mariaa Whitman GAS BOOSTER ENGINEER Active CETIRIZINE HCL 10 MG ORAL TABS 1 po qd PRN Allergies CETIRIZINE HCL 48220347015 Active Mariaa Whitman APRN Active BACTRIM DS 800-160 MG TABS 1 pill by mouth twice daily, for UTI SULFAMETHOXAZOLE-TRIMETHOPRIM 85601078007 No Longer Active Ana Cristina Vallejo MD PhD Active HYDROCHLOROTHIAZIDE 12.5 MG CAPS 1 pill by mouth daily, for blood pressure HYDROCHLOROTHIAZIDE 13994173620 Active Mariaa Whitman APRN Active CARVEDILOL 25 MG TABS 1 pill by mouth twice daily for blood pressure CARVEDILOL 62866869973 Active Mariaa Whitman APRN Active SYNTHROID 0.088 MG TAB 1 tablet by mouth daily for thyroid LEVOTHYROXINE SODIUM 40276769682 Active HEDY Esquivel Active AMOXICILLIN 500 MG CAP 1 tab by mouth 3 times daily AMOXICILLIN 47614960728 No Longer Active Alden Kim MD Active [facility] VITAMIN D3 1000 UNIT CAPS TAKE 2 CAP DAILY CHOLECALCIFEROL Active Ana Cristina Vallejo MD PhD Active CALCIUM 500 MG TABS TAKE 3 TABS DAILY CALCIUM 28918163458 No Longer Active aMriaa Whitman APRN Active MULTIVITAMINS TABS TAKE 1 TAB DAILY MULTIPLE VITAMIN Active Aneta Tavarezum PATIENT PARTNER Active BENADRYL ALLERGY 25 MG TABS NEEDED DIPHENHYDRAMINE HCL 87384302838 Active Aneta Singh Leo PATIENT PARTNER Active TYLENOL 325 MG TABS NEEDED ACETAMINOPHEN 42639619655 Active Aneta Tavarezum PATIENT PARTNER Active ADVIL 200 MG TABS TAKE NEEDED IBUPROFEN 59065233007 Active Aneta Tavarezum PATIENT PARTNER Active GLUCOSAMINE-CHONDROITIN 500-400 MG TABS TAKE 1 TAB DAILY GLUCOSAMINE-CHONDROITIN 72908887214 Active Mariaa Whitman APRN Active NORVASC 10 MG TABS TAKE 1 TAB DAILY AMLODIPINE BESYLATE 27644320371 Active Mariaa Whitman APRN Active BENAZEPRIL HCL 40 MG TABS 1 PO BID BENAZEPRIL HCL 67092452504 Active HEDY Esquivel Active LOVASTATIN 20 MG TABS 1 PO Q HS FOR CHOLESTEROL LOVASTATIN 74401177003 Active HEDY Esquivel Active RANITIDINE HCL 150 MG CAPS 1 PO Q 12 HRS RANITIDINE HCL 11236096972 Active Mariaa Whitman GAS BOOSTER ENGINEER Active ALENDRONATE SODIUM 70 MG TABS TAKE 1 TAB ONCE A WEEK ALENDRONATE SODIUM 70 MG TABS 414272 ALENDRONATE SODIUM Inactive ADULT ASPIRIN EC LOW STRENGTH 81 MG TBEC TAKE 1 TAB DAILY ADULT ASPIRIN EC LOW STRENGTH 81 MG TBEC 712134 ASPIRIN Inactive ALPRAZOLAM 0.25 MG TAB 1/2-1 tablet by mouth twice a day as needed for stress ALPRAZOLAM 0.25 MG TAB 998664 ALPRAZOLAM Inactive COLACE 100 MG CAP 1 po BID PRN Constipation COLACE 100 MG CAP 4399365 DOCUSATE SODIUM Inactive AMOXICILLIN 500 MG CAP 1 tab by mouth 3 times daily AMOXICILLIN 500 MG CAP 379903 AMOXICILLIN Inactive BACTRIM DS 800-160 MG TABS 1 pill by mouth twice daily, for UTI BACTRIM DS 800-160 MG TABS 948653 SULFAMETHOXAZOLE-TRIMETHOPRIM Inactive Advance Directives Directive Description Start [...] Panel - Chemistry sodium, serum 130 mmol/L 798-706 3496/10/19 potassium, serum 3.5 mmol/L 3.5-5.2 chloride, serum [...] 5.0-8.5 Encounters Code Encounter Date Provider Facility [facility]-[id number] Level 4 Est. Patient 10:31:15 CDT Jalil Hayes MD [facility]-94675 Level 4 Est. Patient 15:07:54 CDT Mariaa Whitman [facility]21471 Level 3 Est. Patient 20:45:54 SR. MANAGER MARKETING Mariaa Whitman [facility]80276 Level 3 Est. Patient 12:16:16 CDT Ana Cristina Vallejo MD [facility]-81047 Level 4 Est. Patient 12:49:21 CDT Ana Cristina Vallejo MD [facility]37416 Level 4 Est. Patient 23:02:25 CDT Ana Cristina Vallejo MD [facility]52210 Level 4 Est. Patient 19:26:33 SR. MANAGER MARKETING Ana Cristina Vallejo MD [facility]64174 Level 4 Est. Patient 11:28:14 CDT Ana Cristina Vallejo MD [facility]74286 Level 4 Est. Patient 15:35:46 SR. MANAGER MARKETING Ana Cristina Vallejo MD [facility]51210 Level 3 Est. Patient 21:06:39 SR. MANAGER MARKETING Alden Kim MD [facility]41901 Level 4 Est. Patient 15:30:54 SR. MANAGER MARKETING Ana Cristina Vallejo MD PhD [facility] Procedures Code Procedure Name Date Entry Date Standard Description CPT-06188 EKG Trac and Interp - XRAY USE ONLY 10:35:11 CDT 09/11 CPT-20840 Chest 2V Frontal and Lat - XRAY USE ONLY 10:35:11 CDT CPT-G0438 Initial Annual Wellness Exam 14:54:07 CDT CPT-G0009 Administration of Pneumococcal Vaccine 14:44:24 CDT CPT-07434 Pneumovax 23 Injection Injectable 25 MCG/0.5ML 14:44:24 CDT CPT-89603 First Vx - Ix admin for Medicare patients 14:44:24 CDT CPT-58491 Fluzone High-Dose Intramuscular Suspension 14:44:20 CDT CPT-20917 BMP - LAB USE ONLY 12:38:06 CDT CPT-80454 Urine Culture - LAB USE ONLY 16:56:33 CDT CPT-TCMM Transitional Care Mgmt-Moderate 18:08:16 CDT CPT-61454 Bone Density 09:14:12 CDT CPT-000 Give Appropriate Flu Vaccine 14:51:52 CDT CPT-24803 Fluzone High Dose (>=65 yrs.) 15:19:23 CDT CPT-74360 Immunization Single Admin 15:19:23 CDT CPT-29856 Prevnar 13 15:40:03 CDT CPT-34707 Administration single or combination vaccine inc oral 15 :40:03 CDT CPT-24535 Prevnar 13 13:55:07 CDT CPT-G0008 Administration of Influenza Virus Vaccine 10:49:51 CDT CPT-64739 Fluzone High-Dose Intramuscular Suspension 10:49:51 CDT CPT-96597 Knee 3V 13:31:37 CDT CPT-87042 Bone Density 09:07:05 SR. MANAGER MARKETING CPT-57450 Nail Avulsion 09:46:05 CDT CPT-81474 Administration single or combination vaccine inc oral 16 :11:54 CDT CPT-98404 Influenza High Dose age 65+ 16:11:54 CDT CPT-37535 Administration single or combination vaccine inc oral 10 :53:15 CDT CPT-62519 Influenza High Dose age 65+ 10:53:15 CDT CPT-46785 Bone Density 14:50:58 SR. MANAGER MARKETING CPT-38072 Administration single or combination vaccine inc oral 15 :41:20 SR. MANAGER MARKETING CPT-08170 Zoster Vaccine (Zostavax) 15:41:20 SR. MANAGER MARKETING CPT-36614 Spec Collection and Handling Fee 11:18:25 SR. MANAGER MARKETING CPT-28879 Administration single or combination vaccine inc oral 11 :14:20 CDT CPT-60715 Influenza High Dose age 65+ 11:14:20 CDT
--- OUTSIDE RECORDS SUMMARY | 2017-07-18 08:46 | XMS REPORT | Clinical Summary ---
Author Author Admin, DANDRE Organization [facility] [place] Address Unknown Phone Unavailable Allergies, Adverse Reactions, Alerts Allergy Name Reaction Description Start Date Severity Status Provider NKDA Critical Active Mariaa Whitman PENOLOGY PROFESSOR Conditions or Problems Problem Name Problem [...] ORAL CAPSULE 1 capsule po daily CHOLECALCIFEROL 99173638589 Active HEDY Esquivel Active VITAMIN D3 2000 UNIT ORAL TABLET 1 daily, for vitamin D deficiency CHOLECALCIFEROL 27793651029 Active HDEY Esquivel Active EQL ONE DAILY WOMENS ORAL TABLET 1 po daily MULTIPLE VITAMINS- CALCIUM 07759699886 Active HEDY Esquivel Active CIPRO 250 MG ORAL TABLET 1 tab BID for 7 days CIPROFLOXACIN HCL 63650318662 Active Deepti Junior LPN Active MACROBID 100 MG ORAL CAPSULE 1 tab BID for 5 days NITROFURANTOIN MONOHYD MACRO 27053637368 No Longer Active Deepti Junior LPN Active HYDROCHLOROTHIAZIDE 12.5 MG ORAL CAPSULE 1 pill by mouth daily HYDROCHLOROTHIAZIDE 69212178228 Active Jalil Hayes MD Active RANITIDINE HCL 150 MG ORAL CAPSULE once nightly RANITIDINE HCL 87322036312 Active Jalil Hayes MD Active BENAZEPRIL HCL 40 MG ORAL TABLET 1 daily for blood pressure BENAZEPRIL HCL 03903563998 Active Jalil Hayes MD Active HYDROCHLOROTHIAZIDE 12.5 MG ORAL CAPSULE 1 pill by mouth daily, for blood pressure HYDROCHLOROTHIAZIDE 09296471179 No Longer Active Jalil Hayes MD Active AUGMENTIN 875-125 MG ORAL TABLET 1 po BID x 7 days AMOXICILLIN-POT CLAVULANATE 01492894257 No Longer Active Jalil Hayes MD Active OMEPRAZOLE 40 MG ORAL CAPSULE DELAYED RELEASE 1 po q a.m. OMEPRAZOLE 44906936695 Active Peggy Pardo LPN Active MIRALAX ORAL PACKET Takes daily prn POLYETHYLENE GLYCOL 3350 81610711820 No Longer Active Peggy Pardo LPN Active FLONASE ALLERGY RELIEF 50 MCG/ACT NASAL SUSPENSION One spray each nostril daily for allergies FLUTICASONE PROPIONATE 12546787313 No Longer Active Peggy Pardo LPN Active BENADRYL ALLERGY 25 MG ORAL TABLET NEEDED DIPHENHYDRAMINE HCL 03711332626 No Longer Active Peggy Pardo LPN Active ADVIL 200 MG ORAL TABLET TAKE NEEDED IBUPROFEN 17019526189 No Longer Active Peggy Pardo LPN Active COLACE 100 MG ORAL CAPSULE 1 po BID PRN Constipation DOCUSATE SODIUM 09436248278 No Longer Active Deepti Junior LPN Active ALPRAZOLAM 0.25 MG ORAL TABLET 1/2-1 tablet by mouth twice a day as needed for stress ALPRAZOLAM 44537674021 No Longer Active Deepti Junior LPN Active ALENDRONATE SODIUM 70 MG ORAL TABLET 1 pill by mouth weekly for osteoporosis ALENDRONATE SODIUM 28342930195 Active Mariaa Whitman APRN Active E-1000 1000 UNIT ORAL CAPSULE Take one by mouth daily VITAMIN E 58895544369 Active HEDY Esquivel Active OSCAL 500/200 D-3 500-200 MG-UNIT ORAL TABLET Take one by mouth 3 times daily , morning, afternoon and evening.] CALCIUM CARBONATE-VITAMIN D 43356025471 Active HEDY Esquivel Active ASPIRIN 81 MG ORAL TABLET CHEWABLE 1 tablet by mouth daily ASPIRIN 97099364483 Active HEDY Esquivel Active ADULT ASPIRIN EC LOW STRENGTH 81 MG ORAL TABLET DELAYED RELEASE TAKE 1 TAB DAILY ASPIRIN 39588759853 No Longer Active Mariaa Whitman APRN Active ALENDRONATE SODIUM 70 MG ORAL TABLET TAKE 1 TAB ONCE A WEEK 01/20 ALENDRONATE SODIUM 96307972117 No Longer Active Mariaa Whitman APRN Active CETIRIZINE HCL 10 MG ORAL TABLET 1 po qd PRN Allergies CETIRIZINE HCL 20591384093 Active Risa Calderon Robin Active BACTRIM DS 800-160 MG ORAL TABLET 1 pill by mouth twice daily, for UTI 01/29 SULFAMETHOXAZOLE-TRIMETHOPRIM 86977586780 No Longer Active Ana Cristina Vallejo MD PhD Active CARVEDILOL 25 MG ORAL TABLET 1 pill by mouth twice daily for blood pressure CARVEDILOL 84000831078 Active Aneta Bailey LPN Active SYNTHROID 88 MCG ORAL TABLET 1 tablet by mouth daily for thyroid LEVOTHYROXINE SODIUM 19332550306 Active Risa Calderon Robin Active AMOXICILLIN 500 MG ORAL CAPSULE 1 tab by mouth 3 times daily 2011 AMOXICILLIN 77679300961 No Longer Active Alden Kim MD Active CALCIUM 500 MG ORAL TABLET TAKE 3 TABS DAILY CALCIUM 55899782273 No Longer Active Mariaa Whitman APRN Active MULTIVITAMINS TABS TAKE 1 TAB DAILY MULTIPLE VITAMIN No Longer Active Aneta Bailey LPN Active TYLENOL 325 MG ORAL TABLET NEEDED ACETAMINOPHEN 10921196756 Active Aneta D Leo BRAND MARKETING COORDINATOR Active GLUCOSAMINE-CHONDROITIN 500-400 MG ORAL TABLET TAKE 1 TAB DAILY GLUCOSAMINE-CHONDROITIN 99382446235 Active Aneta Tavarezum BRAND MARKETING COORDINATOR Active NORVASC 10 MG ORAL TABLET TAKE 1 TAB DAILY AMLODIPINE BESYLATE 71267320785 Active Aneta Tavarezum BRAND MARKETING COORDINATOR Active LOVASTATIN 20 MG ORAL TABLET 1 PO Q HS FOR CHOLESTEROL LOVASTATIN 57472623369 Active HEDY Esquivel Active ALENDRONATE SODIUM 70 MG ORAL TABLET TAKE 1 TAB ONCE A WEEK 01/20 ALENDRONATE SODIUM 70 MG ORAL TABLET 190944 ALENDRONATE SODIUM Inactive ADULT ASPIRIN EC LOW STRENGTH 81 MG ORAL TABLET DELAYED RELEASE TAKE 1 TAB DAILY ADULT ASPIRIN EC LOW STRENGTH 81 MG ORAL TABLET DELAYED RELEASE 659285 ASPIRIN Inactive ALPRAZOLAM 0.25 MG ORAL TABLET 1/2-1 tablet by mouth twice a day as needed for stress ALPRAZOLAM 0.25 MG ORAL TABLET 505831 ALPRAZOLAM Inactive COLACE 100 MG ORAL CAPSULE 1 po BID PRN Constipation COLACE 100 MG ORAL CAPSULE 4065085 DOCUSATE SODIUM Inactive ADVIL 200 MG ORAL TABLET TAKE NEEDED ADVIL 200 MG ORAL TABLET 764667 IBUPROFEN Inactive BENADRYL ALLERGY 25 MG ORAL TABLET NEEDED BENADRYL ALLERGY 25 MG ORAL TABLET 5469078 DIPHENHYDRAMINE HCL Inactive FLONASE ALLERGY RELIEF 50 MCG/ACT NASAL SUSPENSION One spray each nostril daily for allergies FLONASE ALLERGY RELIEF 50 MCG/ACT NASAL SUSPENSION 0299850 FLUTICASONE PROPIONATE Inactive MIRALAX ORAL PACKET Takes daily prn MIRALAX ORAL PACKET 711957 POLYETHYLENE GLYCOL 3350 Inactive AUGMENTIN 875-125 MG ORAL TABLET 1 po BID x 7 days AUGMENTIN 875-125 MG ORAL TABLET 368148 AMOXICILLIN-POT CLAVULANATE Inactive HYDROCHLOROTHIAZIDE 12.5 MG ORAL CAPSULE 1 pill by mouth daily, for blood pressure HYDROCHLOROTHIAZIDE 12.5 MG ORAL CAPSULE 391534 HYDROCHLOROTHIAZIDE Inactive AMOXICILLIN 500 MG ORAL CAPSULE 1 tab by mouth 3 times daily 2011 AMOXICILLIN 500 MG ORAL CAPSULE 722944 AMOXICILLIN Inactive BACTRIM DS 800-160 MG ORAL TABLET 1 pill by mouth twice daily, for UTI 01/29 BACTRIM DS 800-160 MG ORAL TABLET 598566 SULFAMETHOXAZOLE- TRIMETHOPRIM Inactive MACROBID 100 MG ORAL CAPSULE 1 tab BID for 5 days MACROBID 100 MG ORAL CAPSULE 0119318 NITROFURANTOIN MONOHYD MACRO Inactive Advance Directives Directive [...] Panel - Chemistry sodium, serum 132 mmol/L 950-271 5649/08/09 potassium, serum 4.2 mmol/L 3.5-5.2 chloride, serum 99 mmol/L 98-107 carbon dioxide, venous blood 24.7 mmol/L 21.0-32.0 blood glucose 119 mg/dL 65-110 calcium, serum 8.5 mg/dL 8.5-10.1 urea nitrogen, blood 14 mg/dL 7-18 creatinine, serum 1.16 mg/dL 0.60-1.30 Lab Report: CBC-QUEST, COMPREHENSIVE METABOLIC PANEL, LIPID PANEL, Micro ... - Chemistry cholesterol, serum 162 mg/dL 729-377 6257/05/01 HDL cholesterol, serum 68 mg/dL > OR=46 [...] % 11.0-15.0 platelet count 297 THOUSAND/UL 10*3/mm3 611-480 4247/05/01 mean platelet volume 8.9 fL 7.5-12.5 mean [...] 5.0-8.5 Encounters Code Encounter Date Provider Facility CPT-61591 Level 3 Est. Patient 13:55:49 CDT Jalil Hayes MD [facility] CPT-04913 Level 3 Est. Patient 14:38:15 CDT Jalil Hayes MD [facility] CPT-91451 Level 4 Est. Patient 14:40:54 CDT Bee Ralph [facility] CPT-45313 Level 4 Est. Patient 10:31:15 CDT Jalil Hayes MD [facility] CPT-03590 Level 4 Est. Patient 15:07:54 CDT Mariaa Whitman [facility] CPT-58353 Level 3 Est. Patient 20:45:54 COMPUTER OPERATOR Mariaa Whitman [facility] CPT-14881 Level 3 Est. Patient 12:16:16 CDT Ana Cristina Vallejo MD [facility] CPT-30807 Level 4 Est. Patient 12:49:21 CDT Ana Cristina Vallejo MD [facility]-53325 Level 4 Est. Patient 23:02:25 CDT Ana Cristina Vallejo MD [facility] CPT-83793 Level 4 Est. Patient 19:26:33 COMPUTER OPERATOR Ana Cristina Vallejo MD [facility] CPT-45862 Level 4 Est. Patient 11:28:14 CDT Ana Cristina Vallejo MD [facility] CPT-44457 Level 4 Est. Patient 15:35:46 COMPUTER OPERATOR Ana Cristina Vallejo MD [facility] CPT-27614 Level 3 Est. Patient 21:06:39 COMPUTER OPERATOR Alden Kim MD [facility] CPT-62338 Level 4 Est. Patient 15:30:54 COMPUTER OPERATOR Ana Cristina Vallejo MD [facility] Procedures Code Procedure Name Date Entry Date Standard Description CPT-06442 First Vx - Ix admin for Medicare patients 13:35:01 CDT CPT-04655 Fluzone High-Dose Intramuscular Suspension 13:35:01 CDT CPT-TCMM Transitional Care Mgmt-Moderate 14:41:55 CDT CPT-83267 EKG Trac and Interp - XRAY USE ONLY 10:35:11 CDT 09/11 CPT-63204 Chest 2V Frontal and Lat - XRAY USE ONLY 10:35:11 CDT CPT-G0438 Initial Annual Wellness Exam 14:54:07 CDT CPT-G0009 Administration of Pneumococcal Vaccine 14:44:24 CDT CPT-05073 Pneumovax 23 Injection Injectable 25 MCG/0.5ML 14:44:24 CDT CPT-04480 First Vx - Ix admin for Medicare patients 14:44:24 CDT CPT-33609 Fluzone High-Dose Intramuscular Suspension 14:44:20 CDT CPT-45957 BMP - LAB USE ONLY 12:38:06 CDT CPT-83430 Urine Culture - LAB USE ONLY 16:56:33 CDT CPT-TCMM Transitional Care Mgmt-Moderate 18:08:16 CDT CPT-52012 Bone Density 09:14:12 CDT CPT-000 Give Appropriate Flu Vaccine 14:51:52 CDT CPT-39493 Fluzone High Dose (>=65 yrs.) 15:19:23 CDT CPT-50809 Immunization Single Admin 15:19:23 CDT CPT-86642 Prevnar 13 15:40:03 CDT CPT-34914 Administration single or combination vaccine inc oral 15 :40:03 CDT CPT-75607 Prevnar 13 13:55:07 CDT CPT-G0008 Administration of Influenza Virus Vaccine 10:49:51 CDT CPT-03650 Fluzone High-Dose Intramuscular Suspension 10:49:51 CDT CPT-53212 Knee 3V 13:31:37 CDT CPT-87422 Bone Density 09:07:05 COMPUTER OPERATOR CPT-69355 Nail Avulsion 09:46:05 CDT CPT-05603 Administration single or combination vaccine inc oral 16 :11:54 CDT CPT-17457 Influenza High Dose age 65+ 16:11:54 CDT CPT-88689 Administration single or combination vaccine inc oral 10 :53:15 CDT CPT-08999 Influenza High Dose age 65+ 10:53:15 CDT CPT-62829 Bone Density 14:50:58 COMPUTER OPERATOR CPT-26432 Administration single or combination vaccine inc oral 15 :41:20 COMPUTER OPERATOR CPT-75447 Zoster Vaccine (Zostavax) 15:41:20 COMPUTER OPERATOR CPT-47147 Spec Collection and Handling Fee 11:18:25 COMPUTER OPERATOR CPT-62767 Administration single or combination vaccine inc oral 11 :14:20 CDT CPT-19442 Influenza High Dose age 65+ 11:14:20 CDT
--- OUTSIDE RECORDS SUMMARY | 2017-07-18 08:47 | XMS REPORT | Clinical Summary ---
Author Author Admin, QIE Organization [facility] [employer] Address Unknown Phone Unavailable Allergies, Adverse Reactions, [...] by mouth weekly for osteoporosis ALENDRONATE SODIUM 15767543096 Active Brianda Reis [facility] Active E-1000 1000 UNIT ORAL CAPS Take one by mouth daily VITAMIN E 92729674245 Active Brianda KNOTT Active OSCAL 500/200 D-3 500-200 MG-UNIT ORAL TABS Take one by mouth 3 times daily, morning, afternoon and evening.] CALCIUM CARBONATE-VITAMIN D 97062037073 Active Brianda KNOTT Active ASPIRIN 81 MG CHEW TAB 1 tablet by mouth daily ASPIRIN 92322503731 Active Brianda RICK Active ADULT ASPIRIN EC LOW STRENGTH 81 MG TBEC TAKE 1 TAB DAILY ASPIRIN 73659151790 No Longer Active Mariaa Whitman APRN Active ALENDRONATE SODIUM 70 MG TABS TAKE 1 TAB ONCE A WEEK ALENDRONATE SODIUM 68829725325 No Longer Active Mariaa Whitman APRN Active FLONASE ALLERGY RELIEF 50 MCG/ACT NASAL SUSP One spray each nostril daily for allergies FLUTICASONE PROPIONATE 31099754036 Active Mariaa Whitman APRN Active CETIRIZINE HCL 10 MG ORAL TABS 1 po qd PRN Allergies CETIRIZINE HCL 84733218326 Active Mariaa Whitman APRN Active BACTRIM DS 800-160 MG TABS 1 pill by mouth twice daily, for UTI SULFAMETHOXAZOLE-TRIMETHOPRIM 18887264613 No Longer Active Ana Cristina Vallejo MD PhD Active HYDROCHLOROTHIAZIDE 12.5 MG CAPS 1 pill by mouth daily, for blood pressure HYDROCHLOROTHIAZIDE 04523865596 Active Mariaa Whitman APRN Active CARVEDILOL 25 MG TABS 1 pill by mouth twice daily for blood pressure CARVEDILOL 24707779953 Active Mariaa Whitman APRN Active SYNTHROID 0.088 MG TAB 1 tablet by mouth daily for thyroid LEVOTHYROXINE SODIUM 37041446418 Active Mariaa Whitman APRN Active AMOXICILLIN 500 MG CAP 1 tab by mouth 3 times daily AMOXICILLIN 08393230831 No Longer Active Alden Kim MD Active [facility] VITAMIN D3 1000 UNIT CAPS TAKE 2 CAP DAILY CHOLECALCIFEROL Active Ana Cristina Vallejo MD PhD Active CALCIUM 500 MG TABS TAKE 3 TABS DAILY CALCIUM 67339025138 No Longer Active Mariaa Whitman ORGANIZATIONAL DEVELOPMENT CONSULTANT Active MULTIVITAMINS TABS TAKE 1 TAB DAILY MULTIPLE VITAMIN Active Aneta Tavarezum BALANCER SCALE Active BENADRYL ALLERGY 25 MG TABS NEEDED DIPHENHYDRAMINE HCL 82430979270 Active Aneta Tavarezum BALANCER SCALE Active TYLENOL 325 MG TABS NEEDED ACETAMINOPHEN 23097959172 Active Aneta Tavarezum BALANCER SCALE Active ADVIL 200 MG TABS TAKE NEEDED IBUPROFEN 94216005467 Active Aneta Tavarezum BALANCER SCALE Active GLUCOSAMINE-CHONDROITIN 500-400 MG TABS TAKE 1 TAB DAILY GLUCOSAMINE-CHONDROITIN 71152785893 Active Mariaa Whitman ORGANIZATIONAL DEVELOPMENT CONSULTANT Active NORVASC 10 MG TABS TAKE 1 TAB DAILY AMLODIPINE BESYLATE 13585622497 Active Mariaa Atkinsonum ORGANIZATIONAL DEVELOPMENT CONSULTANT Active BENAZEPRIL HCL 40 MG TABS 1 PO BID BENAZEPRIL HCL 71913902267 Active Mariaa Whitman ORGANIZATIONAL DEVELOPMENT CONSULTANT Active LOVASTATIN 20 MG TABS 1 PO Q HS FOR CHOLESTEROL LOVASTATIN 76636445635 Active Mariaa Whitman ORGANIZATIONAL DEVELOPMENT CONSULTANT Active RANITIDINE HCL 150 MG CAPS 1 PO Q 12 HRS RANITIDINE HCL 94995427632 Active Mariaa Whitman ORGANIZATIONAL DEVELOPMENT CONSULTANT Active ALENDRONATE SODIUM 70 MG TABS TAKE 1 TAB ONCE A WEEK ALENDRONATE SODIUM 70 MG TABS 609099 ALENDRONATE SODIUM Inactive ADULT ASPIRIN EC LOW STRENGTH 81 MG TBEC TAKE 1 TAB DAILY ADULT ASPIRIN EC LOW STRENGTH 81 MG TBEC 332676 ASPIRIN Inactive AMOXICILLIN 500 MG CAP 1 tab by mouth 3 times daily AMOXICILLIN 500 MG CAP 678069 AMOXICILLIN Inactive BACTRIM DS 800-160 MG TABS 1 pill by mouth twice daily, for UTI BACTRIM DS 800-160 MG TABS 167986 SULFAMETHOXAZOLE-TRIMETHOPRIM Inactive Advance Directives Directive Description Start [...] 1.41 ng/dL 0.76-1.46 cholesterol, serum 166 mg/dL 329-521 3446/04/20 triglyceride, serum, fasting 68 mg/dL 30-200 HDL cholesterol, serum 88 mg/dL 32-96 LDL cholesterol, serum 64 mg/dL 0-130 sodium, serum 132 mmol/L 760-435 1623/04/20 carbon dioxide, venous blood 31.3 mmol/L 21.0-32.0 [...] Negative Encounters Code Encounter Date Provider Facility CPT-71243 Level 4 Est. Patient 15:07:54 CDT Mariaa Whitman [facility] CPT-93518 Level 3 Est. Patient 20:45:54 MANAGER LIFE Mariaa Whitman [facility] CPT-62559 Level 3 Est. Patient 12:16:16 CDT Ana Cristina Vallejo MD [facility] CPT-98152 Level 4 Est. Patient 12:49:21 CDT Ana Cristina Vallejo MD [facility] CPT-86035 Level 4 Est. Patient 23:02:25 CDT Ana Cristina Vallejo MD [facility] CPT-81389 Level 4 Est. Patient 19:26:33 MANAGER LIFE Ana Cristina Vallejo MD [facility] CPT-78514 Level 4 Est. Patient 11:28:14 CDT Ana Cristina Vallejo MD [facility] CPT-10699 Level 4 Est. Patient 15:35:46 MANAGER LIFE Ana Cristina Vallejo MD [facility] CPT-06474 Level 3 Est. Patient 21:06:39 MANAGER LIFE Alden Kim MD [facility] CPT-95472 Level 4 Est. Patient 15:30:54 MANAGER LIFE Ana Cristina Vallejo MD [facility] Procedures Code Procedure Name Date Entry Date Standard Description CPT-70556 Urine Culture - LAB USE ONLY 16:56:33 CDT CPT-TCMM Transitional Care Mgmt-Moderate 18:08:16 CDT CPT-90896 Bone Density 09:14:12 CDT CPT-000 Give Appropriate Flu Vaccine 14:51:52 CDT CPT-64893 Fluzone High Dose (>=65 yrs.) 15:19:23 CDT CPT-46994 Immunization Single Admin 15:19:23 CDT CPT-30656 Prevnar 13 15:40:03 CDT CPT-15047 Administration single or combination vaccine inc oral 15 :40:03 CDT CPT-53408 Prevnar 13 13:55:07 CDT CPT-G0008 Administration of Influenza Virus Vaccine 10:49:51 CDT CPT-13900 Fluzone High-Dose Intramuscular Suspension 10:49:51 CDT CPT-11954 Knee 3V 13:31:37 CDT CPT-37146 Bone Density 09:07:05 MANAGER LIFE CPT-44359 Nail Avulsion 09:46:05 CDT CPT-47738 Administration single or combination vaccine inc oral 16 :11:54 CDT CPT-41711 Influenza High Dose age 65+ 16:11:54 CDT CPT-98989 Administration single or combination vaccine inc oral 10 :53:15 CDT CPT-37457 Influenza High Dose age 65+ 10:53:15 CDT CPT-67258 Bone Density 14:50:58 MANAGER LIFE CPT-73554 Administration single or combination vaccine inc oral 15 :41:20 MANAGER LIFE CPT-78549 Zoster Vaccine (Zostavax) 15:41:20 MANAGER LIFE CPT-33892 Spec Collection and Handling Fee 11:18:25 MANAGER LIFE CPT-62087 Administration single or combination vaccine inc oral 11 :14:20 CDT CPT-63642 Influenza High Dose age 65+ 11:14:20 CDT
--- OUTSIDE RECORDS SUMMARY | 2017-07-18 08:47 | XMS REPORT | Clinical Summary ---
Author Author Admin, DANDRE Organization [facility] [email or web address] Address Unknown Phone Unavailable Allergies, Adverse Reactions, Alerts Allergy Name Reaction Description Start Date Severity Status Provider NKDA Critical Active Mariaa Whitman [employer] WORK[employer] Conditions or Problems Problem Name Problem Code Onset Date Status Entry Date Provider Comment Standard Description Annotate ROUTINE GYNECOLOGICAL EXAMINATION V72.31 Resolved Ana Cristina Vallejo MD PhD Routine gynecological examination MENOPAUSE 627.2 Ruled out Ana Cristina Vallejo MD PhD Symptomatic menopausal or female climacteric states MENOPAUSE 627.2 Active Brianda Reis [facility] Symptomatic menopausal or female climacteric [...] 1 daily for blood pressure BENAZEPRIL HCL 03749839153 Active Jalil Hayes MD Active HYDROCHLOROTHIAZIDE 12.5 MG CAPS 1 pill by mouth daily, for blood pressure HYDROCHLOROTHIAZIDE 47603714620 No Longer Active Jalil Hayes MD Active AUGMENTIN 875-125 MG TAB 1 po BID x 7 days AMOXICILLIN-POT CLAVULANATE 55133636343 No Longer Active Jalil Hayes MD Active OMEPRAZOLE 40 MG CPDR 1 po q a.m. OMEPRAZOLE 22919277213 Active Peggy Pardo LPN Active MIRALAX ORAL PACK Takes daily prn POLYETHYLENE GLYCOL 3350 39680181964 No Longer Active Peggy Pardo LPN Active FLONASE ALLERGY RELIEF 50 MCG/ACT NASAL SUSP One spray each nostril daily for allergies FLUTICASONE PROPIONATE 18517635304 No Longer Active Peggy Pardo LPN Active BENADRYL ALLERGY 25 MG TABS NEEDED DIPHENHYDRAMINE HCL 50476413460 No Longer Active Peggy Pardo LPN Active ADVIL 200 MG TABS TAKE NEEDED IBUPROFEN 70762788889 No Longer Active Peggy Edvin, WINDOW GLASS CUTTER OFF Active COLACE 100 MG CAP 1 po BID PRN Constipation DOCUSATE SODIUM 17469492405 No Longer Active Deeptitayler Junior LPN Active ALPRAZOLAM 0.25 MG TAB 1/2-1 tablet by mouth twice a day as needed for stress ALPRAZOLAM 74230605866 No Longer Active Deepti Sandi ANGUIANON Active ALENDRONATE SODIUM 70 MG TABS 1 pill by mouth weekly for osteoporosis ALENDRONATE SODIUM 69403912391 Active Briandahelen Reis Robin Active E-1000 1000 UNIT ORAL CAPS Take one by mouth daily VITAMIN E 38483490008 Active Brianda Reis Robin Active OSCAL 500/200 D-3 500-200 MG-UNIT ORAL TABS Take one by mouth 3 times daily, morning, afternoon and evening.] CALCIUM CARBONATE-VITAMIN D 76800922426 Active Brianda KNOTT Active ASPIRIN 81 MG CHEW TAB 1 tablet by mouth daily ASPIRIN 01212950597 Active Brianda Reis Robin Active ADULT ASPIRIN EC LOW STRENGTH 81 MG TBEC TAKE 1 TAB DAILY ASPIRIN 08522476818 No Longer Active Mariaa Whitman [employer] WORKER Active ALENDRONATE SODIUM 70 MG TABS TAKE 1 TAB ONCE A WEEK ALENDRONATE SODIUM 47092299543 No Longer Active Mariaa Whitman [employer] WORKER Active CETIRIZINE HCL 10 MG ORAL TABS 1 po qd PRN Allergies CETIRIZINE HCL 51228832173 Active HEDY Esquivel Active BACTRIM DS 800-160 MG TABS 1 pill by mouth twice daily, for UTI SULFAMETHOXAZOLE-TRIMETHOPRIM 95507166216 No Longer Active Ana Cristina Vallejo MD PhD Active CARVEDILOL 25 MG TABS 1 pill by mouth twice daily for blood pressure CARVEDILOL 41712732201 Active HEDY Esquivel Active SYNTHROID 0.088 MG TAB 1 tablet by mouth daily for thyroid LEVOTHYROXINE SODIUM 89291679033 Active HEDY Esquivel Active AMOXICILLIN 500 MG CAP 1 tab by mouth 3 times daily AMOXICILLIN 85399481761 No Longer Active Alden Kim MD Active CVS VITAMIN D3 1000 UNIT CAPS TAKE 2 CAP DAILY CHOLECALCIFEROL Active Ana Cristina Vallejo MD PhD Active CALCIUM 500 MG TABS TAKE 3 TABS DAILY CALCIUM 54460817232 No Longer Active Mariaa Whitman APRN Active MULTIVITAMINS TABS TAKE 1 TAB DAILY MULTIPLE VITAMIN Active Aneta D Leo [employer]ASS CUTTER OFF Active TYLENOL 325 MG TABS NEEDED ACETAMINOPHEN 50032068123 Active Aneta Singh Loe [employer]ASS CUTTER OFF Active GLUCOSAMINE-CHONDROITIN 500-400 MG TABS TAKE 1 TAB DAILY GLUCOSAMINE-CHONDROITIN 47776604239 Active Mariaa Whitman APRN Active NORVASC 10 MG TABS TAKE 1 TAB DAILY AMLODIPINE BESYLATE 47066444334 Active HEDY Esquivel Active LOVASTATIN 20 MG TABS 1 PO Q HS FOR CHOLESTEROL LOVASTATIN 43914637203 Active HEDY Esquivel Active RANITIDINE HCL 150 MG CAPS 1 PO Q 12 HRS RANITIDINE HCL 87632482432 Active HEDY Esquivel Active ALENDRONATE SODIUM 70 MG TABS TAKE 1 TAB ONCE A WEEK ALENDRONATE SODIUM 70 MG TABS 480021 ALENDRONATE SODIUM Inactive ADULT ASPIRIN EC LOW STRENGTH 81 MG TBEC TAKE 1 TAB DAILY ADULT ASPIRIN EC LOW STRENGTH 81 MG TBEC 873020 ASPIRIN Inactive ALPRAZOLAM 0.25 MG TAB 1/2-1 tablet by mouth twice a day as needed for stress ALPRAZOLAM 0.25 MG TAB 413639 ALPRAZOLAM Inactive COLACE 100 MG CAP 1 po BID PRN Constipation COLACE 100 MG CAP 6062307 DOCUSATE SODIUM Inactive ADVIL 200 MG TABS TAKE NEEDED ADVIL 200 MG TABS 749522 IBUPROFEN Inactive BENADRYL ALLERGY 25 MG TABS NEEDED BENADRYL ALLERGY 25 MG TABS 5420684 DIPHENHYDRAMINE HCL Inactive FLONASE ALLERGY RELIEF 50 MCG/ACT NASAL SUSP One spray each nostril daily for allergies FLONASE ALLERGY RELIEF 50 MCG/ACT NASAL SUSP 0647979 FLUTICASONE PROPIONATE Inactive MIRALAX ORAL PACK Takes daily prn MIRALAX ORAL PACK 054169 POLYETHYLENE GLYCOL 3350 Inactive AUGMENTIN 875-125 MG TAB 1 po BID x 7 days AUGMENTIN 875-125 MG TAB 924489 AMOXICILLIN-POT CLAVULANATE Inactive HYDROCHLOROTHIAZIDE 12.5 MG CAPS 1 pill by mouth daily, for blood pressure HYDROCHLOROTHIAZIDE 12.5 MG CAPS 083392 HYDROCHLOROTHIAZIDE Inactive AMOXICILLIN 500 MG CAP 1 tab by mouth 3 times daily AMOXICILLIN 500 MG CAP 500192 AMOXICILLIN Inactive BACTRIM DS 800-160 MG TABS 1 pill by mouth twice daily, for UTI BACTRIM DS 800-160 MG TABS 336533 SULFAMETHOXAZOLE-TRIMETHOPRIM Inactive Advance Directives Directive Description Start [...] Panel - Chemistry sodium, serum 130 mmol/L 163-623 4911/10/19 potassium, serum 3.5 mmol/L 3.5-5.2 chloride, serum 92 mmol/L 98-107 carbon dioxide, venous blood 33.6 mmol/L 21.0-32.0 blood glucose 118 mg/dL 65-110 calcium, serum 8.8 mg/dL 8.5-10.1 urea nitrogen, blood 11 mg/dL 7-18 creatinine, serum 1.12 mg/dL 0.55-1.30 Lab Report: CBC-QUEST, COMPREHENSIVE METABOLIC PANEL, LIPID PANEL, Micro ... - Chemistry cholesterol, serum 162 mg/dL 925-545 0166/05/01 HDL cholesterol, serum 68 mg/dL > OR=46 [...] % 11.0-15.0 platelet count 297 THOUSAND/UL 10*3/mm3 943-561 7420/05/01 mean platelet volume 8.9 fL 7.5-12.5 Lab [...] Code Encounter Date Provider Facility [id number] Level 3 Est. Patient 14:38:15 CDT Jalil Hayes MD [facility]-23923 Level 4 Est. Patient 14:40:54 CDT Bee Rosas [facility]-39665 Level 4 Est. Patient 10:31:15 CDT Jalil Hayes MD [facility]-65535 Level 4 Est. Patient 15:07:54 CDT Mariaa Whitman [facility]-05860 Level 3 Est. Patient 20:45:54 FLUID DYNAMICIST Mariaa Whitman [facility]-90771 Level 3 Est. Patient 12:16:16 CDT Ana Cirstina Vallejo MD [facility]76241 Level 4 Est. Patient 12:49:21 CDT Ana Cristina Vallejo MD [facility]97019 Level 4 Est. Patient 23:02:25 CDT Ana Cristina Vallejo MD [facility]31677 Level 4 Est. Patient 19:26:33 FLUID DYNAMICIST Ana Cristina Vallejo MD [facility]57205 Level 4 Est. Patient 11:28:14 CDT Ana Cristina Vallejo MD [facility]38347 Level 4 Est. Patient 15:35:46 FLUID DYNAMICIST Ana Cristina Vallejo MD [facility]96250 Level 3 Est. Patient 21:06:39 FLUID DYNAMICIST Alden Kim MD [facility] CPT-43076 Level 4 Est. Patient 15:30:54 FLUID DYNAMICIST Ana Cristina Vallejo MD PhD [facility] Procedures Code Procedure Name Date Entry Date Standard Description CPT-TCMM Transitional Care Mgmt-Moderate 14:41:55 CDT CPT-59914 EKG Trac and Interp - XRAY USE ONLY 10:35:11 CDT 09/11 CPT-69702 Chest 2V Frontal and Lat - XRAY USE ONLY 10:35:11 CDT CPT-G0438 Initial Annual Wellness Exam 14:54:07 CDT CPT-G0009 Administration of Pneumococcal Vaccine 14:44:24 CDT CPT-22839 Pneumovax 23 Injection Injectable 25 MCG/0.5ML 14:44:24 CDT CPT-47008 First Vx - Ix admin for Medicare patients 14:44:24 CDT CPT-09506 Fluzone High-Dose Intramuscular Suspension 14:44:20 CDT CPT-75657 BMP - LAB USE ONLY 12:38:06 CDT CPT-56659 Urine Culture - LAB USE ONLY 16:56:33 CDT CPT-TCMM Transitional Care Mgmt-Moderate 18:08:16 CDT CPT-59259 Bone Density 09:14:12 CDT CPT-000 Give Appropriate Flu Vaccine 14:51:52 CDT CPT-98344 Fluzone High Dose (>=65 yrs.) 15:19:23 CDT CPT-77999 Immunization Single Admin 15:19:23 CDT CPT-82366 Prevnar 13 15:40:03 CDT CPT-75363 Administration single or combination vaccine inc oral 15 :40:03 CDT CPT-04049 Prevnar 13 13:55:07 CDT CPT-G0008 Administration of Influenza Virus Vaccine 10:49:51 CDT CPT-70656 Fluzone High-Dose Intramuscular Suspension 10:49:51 CDT CPT-97376 Knee 3V 13:31:37 CDT CPT-03945 Bone Density 09:07:05 FLUID DYNAMICIST CPT-16513 Nail Avulsion 09:46:05 CDT CPT-60205 Administration single or combination vaccine inc oral 16 :11:54 CDT CPT-42020 Influenza High Dose age 65+ 16:11:54 CDT CPT-95116 Administration single or combination vaccine inc oral 10 :53:15 CDT CPT-51060 Influenza High Dose age 65+ 10:53:15 CDT CPT-32399 Bone Density 14:50:58 FLUID DYNAMICIST CPT-04012 Administration single or combination vaccine inc oral 15 :41:20 FLUID DYNAMICIST CPT-29310 Zoster Vaccine (Zostavax) 15:41:20 FLUID DYNAMICIST CPT-20025 Spec Collection and Handling Fee 11:18:25 FLUID DYNAMICIST CPT-15316 Administration single or combination vaccine inc oral 11 :14:20 CDT CPT-50197 Influenza High Dose age 65+ 11:14:20 CDT
--- OUTSIDE RECORDS SUMMARY | 2017-07-18 08:48 | XMS REPORT | Clinical Summary ---
Author Author Admin, QIE Organization [employer] Address Unknown Phone Unavailable Allergies, Adverse [...] each nostril daily for allergies FLUTICASONE PROPIONATE 15996706054 Active Mariaa Antonette SWARTZN Active CETIRIZINE HCL 10 MG ORAL TABS 1 po qd PRN Allergies CETIRIZINE HCL 59740131571 Active Mariaa Yokum SPLITTER HAND Active BACTRIM DS 800-160 MG TABS 1 pill by mouth twice daily, for UTI SULFAMETHOXAZOLE-TRIMETHOPRIM 11962812387 No Longer Active Ana Cristina Vallejo MD PhD Active HYDROCHLOROTHIAZIDE 12.5 MG CAPS 1 pill by mouth daily, for blood pressure HYDROCHLOROTHIAZIDE 14072345112 Active Mariaa Antonette SPLITTER HAND Active CARVEDILOL 25 MG TABS 1 pill by mouth twice daily for blood pressure CARVEDILOL 23523732053 Active Mariaa Lauxuanbeckie SPLITTER HAND Active SYNTHROID 0.088 MG TAB 1 tablet by mouth daily for thyroid LEVOTHYROXINE SODIUM 97933610457 Active Mariaa Antonette SWARTZN Active AMOXICILLIN 500 MG CAP 1 tab by mouth 3 times daily AMOXICILLIN 49539710781 No Longer Active Alden Kim MD Active CVS VITAMIN D3 1000 UNIT CAPS TAKE 2 CAP DAILY CHOLECALCIFEROL 84007981176 Active Ana Cristina Vallejo MD PhD Active CALCIUM 500 MG TABS TAKE 3 TABS DAILY CALCIUM 00753655890 Active Aneta Tavarezum POWDER SHOVELER Active MULTIVITAMINS TABS TAKE 1 TAB DAILY MULTIPLE VITAMIN 41346410562 Active Aneta Tavarezum POWDER SHOVELER Active BENADRYL ALLERGY 25 MG TABS NEEDED DIPHENHYDRAMINE HCL 23313354378 Active Aneta Tavarezum POWDER SHOVELER Active TYLENOL 325 MG TABS NEEDED ACETAMINOPHEN 73377443944 Active Aneta Tavarezum POWDER SHOVELER Active ADVIL 200 MG TABS TAKE NEEDED IBUPROFEN 07234591049 Active Aneta Tavarezum POWDER SHOVELER Active ADULT ASPIRIN EC LOW STRENGTH 81 MG TBEC TAKE 1 TAB DAILY ASPIRIN 18338723464 Active Aneta Tavarezum POWDER SHOVELER Active VITAMIN E NATURAL 400 UNIT CAPS TAKE 1 CAP DAILY VITAMIN E 99041993076 Active Aneta Tavarezum POWDER SHOVELER Active GLUCOSAMINE-CHONDROITIN 500-400 MG TABS TAKE 1 TAB DAILY GLUCOSAMINE-CHONDROITIN 29853975864 Active Aneta Tavarezum POWDER SHOVELER Active NORVASC 10 MG TABS TAKE 1 TAB DAILY AMLODIPINE BESYLATE 35735422219 Active Mariaa Whitman SPLITTER HAND Active BENAZEPRIL HCL 40 MG TABS 1 PO BID BENAZEPRIL HCL 68026905901 Active Mariaa Whitman SPLITTER HAND Active LOVASTATIN 20 MG TABS 1 PO Q HS FOR CHOLESTEROL LOVASTATIN 37527482578 Active Mariaa Whitman SPLITTER HAND Active RANITIDINE HCL 150 MG CAPS 1 PO Q 12 HRS RANITIDINE HCL 18563070901 Active Mariaa Whitman SPLITTER HAND Active ALENDRONATE SODIUM 70 MG TABS TAKE 1 TAB ONCE A WEEK ALENDRONATE SODIUM 86398594987 Active Mariaa Whitman SPLITTER HAND Active AMOXICILLIN 500 MG CAP 1 tab by mouth 3 times daily AMOXICILLIN 500 MG CAP 292275 AMOXICILLIN Inactive BACTRIM DS 800-160 MG TABS 1 pill by mouth twice daily, for UTI BACTRIM DS 800-160 MG TABS 208947 SULFAMETHOXAZOLE-TRIMETHOPRIM Inactive Immunizations Vaccine Administration Date Value [...] ... - Chemistry sodium, serum 132 mmol/L 668-153 0779/04/20 carbon dioxide, venous blood 31.3 mmol/L 21.0-32.0 [...] 1.41 ng/dL 0.76-1.46 cholesterol, serum 166 mg/dL 678-018 4217/04/20 triglyceride, serum, fasting 68 mg/dL 30-200 HDL [...] 5.0-8.5 Encounters Code Encounter Date Provider Facility CPT-36670 Level 4 Est. Patient 15:07:54 CDT Mariaa Whitman [facility] CPT-58098 Level 3 Est. Patient 20:45:54 [place] Mariaa Whitman [facility] CPT-08480 Level 3 Est. Patient 12:16:16 CDT Ana Cristina Vallejo MD PhD [facility] CPT-21888 Level 4 Est. Patient 12:49:21 CDT Ana Cristina Vallejo MD [facility] CPT-82847 Level 4 Est. Patient 23:02:25 CDT Ana Cristina Vallejo MD [facility] CPT-51718 Level 4 Est. Patient 19:26:33 [place] Ana Cristina Vallejo MD [facility] CPT-75783 Level 4 Est. Patient 11:28:14 CDT Ana Cristina Vallejo MD [facility] CPT-15011 Level 4 Est. Patient 15:35:46 [place] Ana Cristina Vallejo MD [facility] CPT-38594 Level 3 Est. Patient 21:06:39 [place] Alden Kim MD [facility] CPT-77783 Level 4 Est. Patient 15:30:54 [place] Ana Cristina Vallejo MD [facility] Procedures Code Procedure Name Date Entry Date Standard Description CPT-43742 Bone Density 09:14:12 CDT CPT-000 Give Appropriate Flu Vaccine 14:51:52 CDT CPT-02462 Fluzone High Dose (>=65 yrs.) 15:19:23 CDT CPT-87329 Immunization Single Admin 15:19:23 CDT CPT-88315 Prevnar 13 15:40:03 CDT CPT-27582 Administration single or combination vaccine inc oral 15 :40:03 CDT CPT-03674 Prevnar 13 13:55:07 CDT CPT-G0008 Administration of Influenza Virus Vaccine 10:49:51 CDT CPT-67874 Fluzone High-Dose Intramuscular Suspension 10:49:51 CDT CPT-20170 Knee 3V 13:31:37 CDT CPT-67134 Bone Density 09:07:05 [place] CPT-08831 Nail Avulsion 09:46:05 CDT CPT-79853 Administration single or combination vaccine inc oral 16 :11:54 CDT CPT-65304 Influenza High Dose age 65+ 16:11:54 CDT CPT-12796 Administration single or combination vaccine inc oral 10 :53:15 CDT CPT-89203 Influenza High Dose age 65+ 10:53:15 CDT CPT-22506 Bone Density 14:50:58 [place] CPT-76536 Administration single or combination vaccine inc oral 15 :41:20 [place] CPT-43172 Zoster Vaccine (Zostavax) 15:41:20 [place] CPT-75798 Spec Collection and Handling Fee 11:18:25 [place] CPT-89593 Administration single or combination vaccine inc oral 11 :14:20 CDT CPT-61147 Influenza High Dose age 65+ 11:14:20 CDT
--- OUTSIDE RECORDS SUMMARY | 2017-07-18 08:49 | XMS REPORT | Clinical Summary ---
Author Author Admin, DANDRE Organization [facility] Address Unknown Phone Unavailable Allergies, Adverse Reactions, Alerts Allergy Name Reaction Description Start Date Severity Status Provider NKDA Critical Active Mariaa Whitman LIABILITY CLAIMS EXAMINER Conditions or Problems Problem Name Problem Code Onset Date Status Entry Date Provider Comment Standard Description Annotate ROUTINE GYNECOLOGICAL EXAMINATION V72.31 Resolved Ana Cristina Vallejo MD PhD Routine gynecological examination MENOPAUSE 627.2 Ruled out Ana Cristina Vallejo MD PhD Symptomatic menopausal or female climacteric states MENOPAUSE 627.2 Active Brianda Reis [facility] Symptomatic menopausal or female climacteric states [...] MD Dysuria Forgetfulness 780.99 Active Radha Jones LIABILITY CLAIMS EXAMINER Other general symptoms Unsteady gait 781.2 Active [...] 1 daily for 5 days 05/25 PREDNISONE 41620133404 Active Deepti Junior LPN Active VITAMIN D3 2000 UNIT ORAL TABLET 1 daily, for vitamin D deficiency CHOLECALCIFEROL 39067497694 No Longer Active Radha Jones APRN Active CIPRO 250 MG ORAL TABLET 1 tab BID for 7 days CIPROFLOXACIN HCL 66609260611 No Longer Active Radha Jones APRN Active VITAMIN D3 2000 UNIT ORAL CAPSULE 1 capsule po daily CHOLECALCIFEROL 57229168798 Active Aneta D Leo YULIET Active EQL ONE DAILY WOMENS ORAL TABLET 1 po daily MULTIPLE VITAMINS- CALCIUM 47886435424 Active Aneta Tavarezum YULIET Active MACROBID 100 MG ORAL CAPSULE 1 tab BID for 5 days NITROFURANTOIN MONOHYD MACRO 83596956290 No Longer Active Deepti Junior LPN Active HYDROCHLOROTHIAZIDE 12.5 MG ORAL CAPSULE 1 pill by mouth daily HYDROCHLOROTHIAZIDE 69597613406 Active Jalil aHyes MD Active RANITIDINE HCL 150 MG ORAL CAPSULE once nightly RANITIDINE HCL 04706205768 Active Jalil Hayes MD Active BENAZEPRIL HCL 40 MG ORAL TABLET 1 daily for blood pressure BENAZEPRIL HCL 98723202926 Active Jalil Hayes MD Active HYDROCHLOROTHIAZIDE 12.5 MG ORAL CAPSULE 1 pill by mouth daily, for blood pressure HYDROCHLOROTHIAZIDE 12206078358 No Longer Active Jalil Hayes MD Active AUGMENTIN 875-125 MG ORAL TABLET 1 po BID x 7 days AMOXICILLIN-POT CLAVULANATE 37337268476 No Longer Active Jalil Hayes MD Active OMEPRAZOLE 40 MG ORAL CAPSULE DELAYED RELEASE 1 po q a.m. OMEPRAZOLE 93517771478 Active HEDY Esquivel Active MIRALAX ORAL PACKET Takes daily prn POLYETHYLENE GLYCOL 3350 44177659651 No Longer Active Peggy Pardo LPN Active FLONASE ALLERGY RELIEF 50 MCG/ACT NASAL SUSPENSION One spray each nostril daily for allergies FLUTICASONE PROPIONATE 27720063179 No Longer Active Peggy Pardo LPN Active BENADRYL ALLERGY 25 MG ORAL TABLET NEEDED DIPHENHYDRAMINE HCL 31421653794 No Longer Active Peggy Pardo LPN Active ADVIL 200 MG ORAL TABLET TAKE NEEDED IBUPROFEN 90913525289 No Longer Active Peggy Pardo LPN Active COLACE 100 MG ORAL CAPSULE 1 po BID PRN Constipation DOCUSATE SODIUM 03838503732 No Longer Active Deepti Junior LPN Active ALPRAZOLAM 0.25 MG ORAL TABLET 1/2-1 tablet by mouth twice a day as needed for stress ALPRAZOLAM 31300170080 No Longer Active Deepti Junior LPN Active ALENDRONATE SODIUM 70 MG ORAL TABLET 1 pill by mouth weekly for osteoporosis ALENDRONATE SODIUM 42831847451 Active Mariaa Whitman APRN Active E-1000 1000 UNIT ORAL CAPSULE Take one by mouth daily VITAMIN E 86522210493 Active Aneta Bailey LPN Active OSCAL 500/200 D-3 500-200 MG-UNIT ORAL TABLET Take one by mouth 3 times daily , morning, afternoon and evening.] CALCIUM CARBONATE-VITAMIN D 14893682052 Active Aneta Bailey LPN Active ASPIRIN 81 MG ORAL TABLET CHEWABLE 1 tablet by mouth daily ASPIRIN 07329869335 Active Aneta Bailey LPN Active ADULT ASPIRIN EC LOW STRENGTH 81 MG ORAL TABLET DELAYED RELEASE TAKE 1 TAB DAILY ASPIRIN 83231489395 No Longer Active Mariaa Whitman APRN Active ALENDRONATE SODIUM 70 MG ORAL TABLET TAKE 1 TAB ONCE A WEEK 01/20 ALENDRONATE SODIUM 46252107292 No Longer Active Mariaa Whitman APRN Active CETIRIZINE HCL 10 MG ORAL TABLET 1 po qd PRN Allergies CETIRIZINE HCL 38311098137 Active HEDY Esquivel Active BACTRIM DS 800-160 MG ORAL TABLET 1 pill by mouth twice daily, for UTI 01/29 SULFAMETHOXAZOLE-TRIMETHOPRIM 65582549311 No Longer Active Ana Cristina Vallejo MD PhD Active CARVEDILOL 25 MG ORAL TABLET 1 pill by mouth twice daily for blood pressure CARVEDILOL 56944849761 Active Aneta Tavarezum PALS SPECIALIST Active SYNTHROID 88 MCG ORAL TABLET 1 tablet by mouth daily for thyroid LEVOTHYROXINE SODIUM 91053458744 Active HEDY Esquivel Active AMOXICILLIN 500 MG ORAL CAPSULE 1 tab by mouth 3 times daily 2011 AMOXICILLIN 27840570295 No Longer Active Alden Kim MD Active CALCIUM 500 MG ORAL TABLET TAKE 3 TABS DAILY CALCIUM 82134467124 No Longer Active Mariaa Antonette LIABILITY CLAIMS EXAMINER Active MULTIVITAMINS TABS TAKE 1 TAB DAILY MULTIPLE VITAMIN No Longer Active Aneta Tavarezum PALS SPECIALIST Active TYLENOL 325 MG ORAL TABLET NEEDED ACETAMINOPHEN 90617182450 Active Aneta Tavarezum PALS SPECIALIST Active GLUCOSAMINE-CHONDROITIN 500-400 MG ORAL TABLET TAKE 1 TAB DAILY GLUCOSAMINE-CHONDROITIN 79751095710 Active Aneta Tavarezum PALS SPECIALIST Active NORVASC 10 MG ORAL TABLET TAKE 1 TAB DAILY AMLODIPINE BESYLATE 81973557533 Active Aneta Tavarezum PALS SPECIALIST Active LOVASTATIN 20 MG ORAL TABLET 1 PO Q HS FOR CHOLESTEROL LOVASTATIN 83393262350 Active HEDY Esquivel Active ALENDRONATE SODIUM 70 MG ORAL TABLET TAKE 1 TAB ONCE A WEEK 01/20 ALENDRONATE SODIUM 70 MG ORAL TABLET 715263 ALENDRONATE SODIUM Inactive ADULT ASPIRIN EC LOW STRENGTH 81 MG ORAL TABLET DELAYED RELEASE TAKE 1 TAB DAILY ADULT ASPIRIN EC LOW STRENGTH 81 MG ORAL TABLET DELAYED RELEASE 989457 ASPIRIN Inactive ALPRAZOLAM 0.25 MG ORAL TABLET 1/2-1 tablet by mouth twice a day as needed for stress ALPRAZOLAM 0.25 MG ORAL TABLET 020917 ALPRAZOLAM Inactive COLACE 100 MG ORAL CAPSULE 1 po BID PRN Constipation COLACE 100 MG ORAL CAPSULE 2292893 DOCUSATE SODIUM Inactive ADVIL 200 MG ORAL TABLET TAKE NEEDED ADVIL 200 MG ORAL TABLET 690017 IBUPROFEN Inactive BENADRYL ALLERGY 25 MG ORAL TABLET NEEDED BENADRYL ALLERGY 25 MG ORAL TABLET 5912130 DIPHENHYDRAMINE HCL Inactive FLONASE ALLERGY RELIEF 50 MCG/ACT NASAL SUSPENSION One spray each nostril daily for allergies FLONASE ALLERGY RELIEF 50 MCG/ACT NASAL SUSPENSION 6662098 FLUTICASONE PROPIONATE Inactive MIRALAX ORAL PACKET Takes daily prn MIRALAX ORAL PACKET 718887 POLYETHYLENE GLYCOL 3350 Inactive AUGMENTIN 875-125 MG ORAL TABLET 1 po BID x 7 days AUGMENTIN 875-125 MG ORAL TABLET 078645 AMOXICILLIN-POT CLAVULANATE Inactive HYDROCHLOROTHIAZIDE 12.5 MG ORAL CAPSULE 1 pill by mouth daily, for blood pressure HYDROCHLOROTHIAZIDE 12.5 MG ORAL CAPSULE 588852 HYDROCHLOROTHIAZIDE Inactive CIPRO 250 MG ORAL TABLET 1 tab BID for 7 days CIPRO 250 MG ORAL TABLET 996976 CIPROFLOXACIN HCL Inactive VITAMIN D3 2000 UNIT ORAL TABLET 1 daily, for vitamin D deficiency VITAMIN D3 2000 UNIT ORAL TABLET CHOLECALCIFEROL Inactive AMOXICILLIN 500 MG ORAL CAPSULE 1 tab by mouth 3 times daily 2011 AMOXICILLIN 500 MG ORAL CAPSULE 465886 AMOXICILLIN Inactive BACTRIM DS 800-160 MG ORAL TABLET 1 pill by mouth twice daily, for UTI 01/29 BACTRIM DS 800-160 MG ORAL TABLET 628575 SULFAMETHOXAZOLE- TRIMETHOPRIM Inactive MACROBID 100 MG ORAL CAPSULE 1 tab BID for 5 days MACROBID 100 MG ORAL CAPSULE 0788561 NITROFURANTOIN MONOHYD MACRO Inactive Advance Directives Directive [...] Panel - Chemistry sodium, serum 132 mmol/L 896-279 7476/08/09 potassium, serum 4.2 mmol/L 3.5-5.2 chloride, serum 99 mmol/L 98-107 carbon dioxide, venous blood 24.7 mmol/L 21.0-32.0 blood glucose 119 mg/dL 65-110 calcium, serum 8.5 mg/dL 8.5-10.1 urea nitrogen, blood 14 mg/dL 7-18 creatinine, serum 1.16 mg/dL 0.60-1.30 Lab Report: CBC-QUEST, COMPREHENSIVE METABOLIC PANEL, LIPID PANEL, Micro ... - Chemistry cholesterol, serum 162 mg/dL 147-203 6385/05/01 HDL cholesterol, serum 68 mg/dL > OR=46 [...] % 11.0-15.0 platelet count 297 THOUSAND/UL 10*3/mm3 813-437 9406/05/01 mean platelet volume 8.9 fL 7.5-12.5 Lab Report: CBC-QUEST, COMPREHENSIVE METABOLIC PANEL, LIPID PANEL, Micro ... - Urinalysis microalbumin/total urine volume <0.2 mg/dL mg/L microalbumin/creatinine ratio, urine NOTE mcg/mg creat mg/L <30 Lab Report: Erythrocyte Sed Rate, Thyroid Stimulating Hormone (L), Basic ... - Chemistry TSH 1.13 m[iU]/mL 0.36-3.74 sodium, serum 139 mmol/L 528-971 0852/01/10 potassium, serum 3.8 mmol/L 3.5-5.2 chloride, serum [...] 5.0-8.5 Encounters Code Encounter Date Provider Facility [facility]-[id number] Level 4 Est. Patient 12:35:27 FUNERAL SERVICE APPRENTICE Jalil Hayes MD [facility]18363 Level 3 Est. Patient 13:55:49 CDT Jalil Hayes MD [facility]62786 Level 3 Est. Patient 14:38:15 CDT Jalil Hayes MD [facility]90138 Level 4 Est. Patient 14:40:54 CDT Bee Rosas [facility]36137 Level 4 Est. Patient 10:31:15 CDT Jalil Hayes MD [facility]31511 Level 4 Est. Patient 15:07:54 CDT Mariaa Whitman [facility]75431 Level 3 Est. Patient 20:45:54 FUNERAL SERVICE APPRENTICE Mariaa Wihtman [facility]-28506 Level 3 Est. Patient 12:16:16 CDT Ana Cristina Vallejo MD [facility]46355 Level 4 Est. Patient 12:49:21 CDT Ana Cristina Vallejo MD [facility]90810 Level 4 Est. Patient 23:02:25 CDT Ana Cristina Vallejo MD [facility]35149 Level 4 Est. Patient 19:26:33 FUNERAL SERVICE APPRENTICE Ana Cristina Vallejo MD [facility]97812 Level 4 Est. Patient 11:28:14 CDT Ana Cristina Vallejo MD PhD [facility] CPT-87718 Level 4 Est. Patient 15:35:46 FUNERAL SERVICE APPRENTICE Ana Cristina Vallejo MD PhD [facility] CPT-11639 Level 3 Est. Patient 21:06:39 FUNERAL SERVICE APPRENTICE Alden Kim MD [facility] CPT-60640 Level 4 Est. Patient 15:30:54 FUNERAL SERVICE APPRENTICE Ana Cristina Vallejo MD PhD [facility] Procedures Code Procedure Name Date Entry Date Standard Description CPT-G0439 Subsequent Annual Wellness Exam 11:53:01 FUNERAL SERVICE APPRENTICE CPT-07737 First Vx - Ix admin for Medicare patients 13:35:01 CDT CPT-67355 Fluzone High-Dose Intramuscular Suspension 13:35:01 CDT CPT-TCMM Transitional Care Mgmt-Moderate 14:41:55 CDT CPT-81785 EKG Trac and Interp - XRAY USE ONLY 10:35:11 CDT 09/11 CPT-20957 Chest 2V Frontal and Lat - XRAY USE ONLY 10:35:11 CDT CPT-G0438 Initial Annual Wellness Exam 14:54:07 CDT CPT-G0009 Administration of Pneumococcal Vaccine 14:44:24 CDT CPT-28874 Pneumovax 23 Injection Injectable 25 MCG/0.5ML 14:44:24 CDT CPT-93739 First Vx - Ix admin for Medicare patients 14:44:24 CDT CPT-15022 Fluzone High-Dose Intramuscular Suspension 14:44:20 CDT CPT-35897 BMP - LAB USE ONLY 12:38:06 CDT CPT-90948 Urine Culture - LAB USE ONLY 16:56:33 CDT CPT-TCMM Transitional Care Mgmt-Moderate 18:08:16 CDT CPT-27505 Bone Density 09:14:12 CDT CPT-000 Give Appropriate Flu Vaccine 14:51:52 CDT CPT-09826 Fluzone High Dose (>=65 yrs.) 15:19:23 CDT CPT-73530 Immunization Single Admin 15:19:23 CDT CPT-06943 Prevnar 13 15:40:03 CDT CPT-08397 Administration single or combination vaccine inc oral 15 :40:03 CDT CPT-83579 Prevnar 13 13:55:07 CDT CPT-G0008 Administration of Influenza Virus Vaccine 10:49:51 CDT CPT-67673 Fluzone High-Dose Intramuscular Suspension 10:49:51 CDT CPT-53343 Knee 3V 13:31:37 CDT CPT-08740 Bone Density 09:07:05 FUNERAL SERVICE APPRENTICE CPT-63810 Nail Avulsion 09:46:05 CDT CPT-80418 Administration single or combination vaccine inc oral 16 :11:54 CDT CPT-31177 Influenza High Dose age 65+ 16:11:54 CDT CPT-19443 Administration single or combination vaccine inc oral 10 :53:15 CDT CPT-08502 Influenza High Dose age 65+ 10:53:15 CDT CPT-38692 Bone Density 14:50:58 FUNERAL SERVICE APPRENTICE CPT-51948 Administration single or combination vaccine inc oral 15 :41:20 FUNERAL SERVICE APPRENTICE CPT-84662 Zoster Vaccine (Zostavax) 15:41:20 FUNERAL SERVICE APPRENTICE CPT-61233 Spec Collection and Handling Fee 11:18:25 FUNERAL SERVICE APPRENTICE CPT-42494 Administration single or combination vaccine inc oral 11 :14:20 CDT CPT-10300 Influenza High Dose age 65+ 11:14:20 CDT
--- OUTSIDE RECORDS SUMMARY | 2017-07-18 08:50 | XMS REPORT | Clinical Summary ---
Author Author Admin, DANDRE Organization [facility] Address Unknown Phone Unavailable Allergies, Adverse Reactions, Alerts Allergy Name Reaction Description Start Date Severity Status Provider NKDA Critical Active Mariaa Whitman ENVIRONMENTAL SAMPLER Conditions or Problems Problem Name Problem Code [...] a day as needed for stress ALPRAZOLAM 33124755076 Active Mariaa Whitman APRN Active COLACE 100 MG CAP 1 po BID PRN Constipation DOCUSATE SODIUM 70908413101 Active Mariaa Antonette SWARTZN Active MIRALAX ORAL PACK Takes daily prn POLYETHYLENE GLYCOL 3350 40026972249 Active Mariaa Atkinsonum ENVIRONMENTAL SAMPLER Active ALENDRONATE SODIUM 70 MG TABS 1 pill by mouth weekly for osteoporosis ALENDRONATE SODIUM 40221610486 Active Brianda RICK Active E-1000 1000 UNIT ORAL CAPS Take one by mouth daily VITAMIN E 26374401573 Active Brianda KNOTT Active OSCAL 500/200 D-3 500-200 MG-UNIT ORAL TABS Take one by mouth 3 times daily, morning, afternoon and evening.] CALCIUM CARBONATE-VITAMIN D 40955894283 Active Brianda RICK Active ASPIRIN 81 MG CHEW TAB 1 tablet by mouth daily ASPIRIN 53766857280 Active Brianda RICK Active ADULT ASPIRIN EC LOW STRENGTH 81 MG TBEC TAKE 1 TAB DAILY ASPIRIN 39015188897 No Longer Active Mariaa Whitman APRN Active ALENDRONATE SODIUM 70 MG TABS TAKE 1 TAB ONCE A WEEK ALENDRONATE SODIUM 19262181152 No Longer Active Mariaa Whitman APRN Active FLONASE ALLERGY RELIEF 50 MCG/ACT NASAL SUSP One spray each nostril daily for allergies FLUTICASONE PROPIONATE 05265830399 Active Mariaa Whitman APRN Active CETIRIZINE HCL 10 MG ORAL TABS 1 po qd PRN Allergies CETIRIZINE HCL 81287616410 Active Mariaa Whitman APRN Active BACTRIM DS 800-160 MG TABS 1 pill by mouth twice daily, for UTI SULFAMETHOXAZOLE-TRIMETHOPRIM 80299337292 No Longer Active Ana Cristina Vallejo MD PhD Active HYDROCHLOROTHIAZIDE 12.5 MG CAPS 1 pill by mouth daily, for blood pressure HYDROCHLOROTHIAZIDE 70105567135 Active Mariaa Whitman APRN Active CARVEDILOL 25 MG TABS 1 pill by mouth twice daily for blood pressure CARVEDILOL 27616315158 Active Mariaa Whitman APRN Active SYNTHROID 0.088 MG TAB 1 tablet by mouth daily for thyroid LEVOTHYROXINE SODIUM 33084119971 Active Mariaa Yokum ENVIRONMENTAL SAMPLER Active AMOXICILLIN 500 MG CAP 1 tab by mouth 3 times daily AMOXICILLIN 00640164625 No Longer Active Alden Kim MD Active [facility] VITAMIN D3 1000 UNIT CAPS TAKE 2 CAP DAILY CHOLECALCIFEROL Active Ana Cristina Vallejo MD PhD Active CALCIUM 500 MG TABS TAKE 3 TABS DAILY CALCIUM 94541067085 No Longer Active Mariaa Yoxuanum ENVIRONMENTAL SAMPLER Active MULTIVITAMINS TABS TAKE 1 TAB DAILY MULTIPLE VITAMIN Active Aneta D Leo APPLICATION DEVELOPMENT INTERN Active BENADRYL ALLERGY 25 MG TABS NEEDED DIPHENHYDRAMINE HCL 77973781604 Active Aneta D Leo APPLICATION DEVELOPMENT INTERN Active TYLENOL 325 MG TABS NEEDED ACETAMINOPHEN 54370031196 Active Aneta D Leo APPLICATION DEVELOPMENT INTERN Active ADVIL 200 MG TABS TAKE NEEDED IBUPROFEN 80584858746 Active Aneta D Leo APPLICATION DEVELOPMENT INTERN Active GLUCOSAMINE-CHONDROITIN 500-400 MG TABS TAKE 1 TAB DAILY GLUCOSAMINE-CHONDROITIN 92555726072 Active Mariaa Yokum ENVIRONMENTAL SAMPLER Active NORVASC 10 MG TABS TAKE 1 TAB DAILY AMLODIPINE BESYLATE 81200494078 Active Mariaa Yokum ENVIRONMENTAL SAMPLER Active BENAZEPRIL HCL 40 MG TABS 1 PO BID BENAZEPRIL HCL 09450490666 Active Mariaa Demetrioum ENVIRONMENTAL SAMPLER Active LOVASTATIN 20 MG TABS 1 PO Q HS FOR CHOLESTEROL LOVASTATIN 64883421394 Active Mariaa Yokum ENVIRONMENTAL SAMPLER Active RANITIDINE HCL 150 MG CAPS 1 PO Q 12 HRS RANITIDINE HCL 04196264777 Active Mariaa Yokum ENVIRONMENTAL SAMPLER Active ALENDRONATE SODIUM 70 MG TABS TAKE 1 TAB ONCE A WEEK ALENDRONATE SODIUM 70 MG TABS 162630 ALENDRONATE SODIUM Inactive ADULT ASPIRIN EC LOW STRENGTH 81 MG TBEC TAKE 1 TAB DAILY ADULT ASPIRIN EC LOW STRENGTH 81 MG TBEC 409230 ASPIRIN Inactive AMOXICILLIN 500 MG CAP 1 tab by mouth 3 times daily AMOXICILLIN 500 MG CAP 960236 AMOXICILLIN Inactive BACTRIM DS 800-160 MG TABS 1 pill by mouth twice daily, for UTI BACTRIM DS 800-160 MG TABS 491690 SULFAMETHOXAZOLE-TRIMETHOPRIM Inactive Advance Directives Directive Description Start [...] Panel - Chemistry sodium, serum 130 mmol/L 838-566 3220/10/19 potassium, serum 3.5 mmol/L 3.5-5.2 chloride, serum [...] 1.41 ng/dL 0.76-1.46 cholesterol, serum 166 mg/dL 380-049 4946/04/20 triglyceride, serum, fasting 68 mg/dL 30-200 HDL cholesterol, serum 88 mg/dL 32-96 LDL cholesterol, serum 64 mg/dL 0-130 sodium, serum 132 mmol/L 377-330 9381/04/20 carbon dioxide, venous blood 31.3 mmol/L 21.0-32.0 [...] 5.0-8.5 Encounters Code Encounter Date Provider Facility CPT-37813 Level 4 Est. Patient 15:07:54 CDT Mariaa Whitman [facility] CPT-59940 Level 3 Est. Patient 20:45:54 SCREW MACHINE HAND Mariaa Whitman [facility] CPT-52333 Level 3 Est. Patient 12:16:16 CDT Ana Cristina Vallejo MD [facility]-68150 Level 4 Est. Patient 12:49:21 CDT Ana Cristina Vallejo MD [facility] CPT-90283 Level 4 Est. Patient 23:02:25 CDT Ana Cristina Vallejo MD [facility]-22356 Level 4 Est. Patient 19:26:33 SCREW MACHINE HAND Ana Cristina Vallejo MD [facility]-93013 Level 4 Est. Patient 11:28:14 CDT Ana Cristina Vallejo MD [facility]-18433 Level 4 Est. Patient 15:35:46 SCREW MACHINE HAND Ana Cristina Vallejo MD [facility] CPT-02926 Level 3 Est. Patient 21:06:39 SCREW MACHINE HAND Alden Kim MD [facility] CPT-54940 Level 4 Est. Patient 15:30:54 SCREW MACHINE HAND Ana Cristina Vallejo MD [facility] Procedures Code Procedure Name Date Entry Date Standard Description CPT-G0438 Initial Annual Wellness Exam 14:54:07 CDT CPT-G0009 Administration of Pneumococcal Vaccine 14:44:24 CDT CPT-57565 Pneumovax 23 Injection Injectable 25 MCG/0.5ML 14:44:24 CDT CPT-12836 First Vx - Ix admin for Medicare patients 14:44:24 CDT CPT-03889 Fluzone High-Dose Intramuscular Suspension 14:44:20 CDT CPT-62693 BMP - LAB USE ONLY 12:38:06 CDT CPT-15294 Urine Culture - LAB USE ONLY 16:56:33 CDT CPT-TCMM Transitional Care Mgmt-Moderate 18:08:16 CDT CPT-94313 Bone Density 09:14:12 CDT CPT-000 Give Appropriate Flu Vaccine 14:51:52 CDT CPT-93147 Fluzone High Dose (>=65 yrs.) 15:19:23 CDT CPT-24491 Immunization Single Admin 15:19:23 CDT CPT-49959 Prevnar 13 15:40:03 CDT CPT-06554 Administration single or combination vaccine inc oral 15 :40:03 CDT CPT-93856 Prevnar 13 13:55:07 CDT CPT-G0008 Administration of Influenza Virus Vaccine 10:49:51 CDT CPT-70815 Fluzone High-Dose Intramuscular Suspension 10:49:51 CDT CPT-93968 Knee 3V 13:31:37 CDT CPT-04340 Bone Density 09:07:05 SCREW MACHINE HAND CPT-09521 Nail Avulsion 09:46:05 CDT CPT-47727 Administration single or combination vaccine inc oral 16 :11:54 CDT CPT-69122 Influenza High Dose age 65+ 16:11:54 CDT CPT-24390 Administration single or combination vaccine inc oral 10 :53:15 CDT CPT-40191 Influenza High Dose age 65+ 10:53:15 CDT CPT-70701 Bone Density 14:50:58 SCREW MACHINE HAND CPT-18964 Administration single or combination vaccine inc oral 15 :41:20 SCREW MACHINE HAND CPT-78637 Zoster Vaccine (Zostavax) 15:41:20 SCREW MACHINE HAND CPT-46529 Spec Collection and Handling Fee 11:18:25 SCREW MACHINE HAND CPT-44544 Administration single or combination vaccine inc oral 11 :14:20 CDT CPT-22479 Influenza High Dose age 65+ 11:14:20 CDT
--- OUTSIDE RECORDS SUMMARY | 2017-07-18 08:50 | XMS REPORT | Clinical Summary ---
Author Author Admin, DANDRE Organization [facility] [employer] Address Unknown Phone Unavailable Allergies, Adverse Reactions, Alerts Allergy Name Reaction Description Start Date Severity Status Provider NKDA Critical Active Mariaa Whitman SALES PERFORMANCE ANALYST Conditions or Problems Problem Name Problem Code Onset Date Status Entry Date Provider Comment Standard Description Annotate ROUTINE GYNECOLOGICAL EXAMINATION V72.31 Resolved Ana Cristina Vallejo MD PhD Routine gynecological examination MENOPAUSE 627.2 Ruled out Ana Cristina Vallejo MD PhD Symptomatic menopausal or female climacteric states MENOPAUSE 627.2 Active Brianda Reis [facility] Symptomatic menopausal or female climacteric states DIVERTICULOSIS, [...] Sciatica Sciatica, left 724.3 Active Mariaa Whitman SALES PERFORMANCE ANALYST Sciatica Urinary bladder pain 788.99 Resolved Jalil [...] Active Jalil Hayes MD Other screening mammogram INGROWN TOENAIL, INFECTED ICD-703.0 Inactive Ana Cristina Vallejo MD PhD INGROWN TOENAIL ICD-703.0 Inactive Ana Cristina Vallejo MD PhD Sciatica ICD-724.3 Inactive Jalil Hayes MD 2016 HEALTH SCREENING ICD-V70.0 Inactive Ana Cristina Vallejo MD PhD Urinary bladder pain ICD-788.99 Inactive Jalil Hayes MD UTI ICD-599.0 Inactive Jalil Hayes MD ROUTINE GYNECOLOGICAL EXAMINATION ICD-V72.31 Inactive Ana Cristina Vallejo MD PhD Medication List Medication Instructions Start Date Stop Date Generic Name [facility] Status Provider Patient Instruction COLACE 100 MG CAP 1 po BID PRN Constipation DOCUSATE SODIUM 17100903668 No Longer Active Deepti Madl [employer] Active ALPRAZOLAM 0.25 MG TAB 1/2-1 tablet by mouth twice a day as needed for stress ALPRAZOLAM 75132454448 No Longer Active Deepti Madl [employer]PER [employer]IPPER Active MIRALAX ORAL PACK Takes daily prn POLYETHYLENE GLYCOL 3350 93189389098 Active Mariaa Whitman APRN Active ALENDRONATE SODIUM 70 MG TABS 1 pill by mouth weekly for osteoporosis ALENDRONATE SODIUM 85519284589 [facility] 1000 UNIT ORAL CAPS Take one by mouth daily VITAMIN E 69111361008 Active Brianda Chato [facility] Active OSCAL 500/200 D-3 500-200 MG-UNIT ORAL TABS Take one by mouth 3 times daily, morning, afternoon and evening.] CALCIUM CARBONATE-VITAMIN D 35411888559 Active Brianda [facility] Active ASPIRIN 81 MG CHEW TAB 1 tablet by mouth daily ASPIRIN 14440404336 Active Brianda [facility] Active ADULT ASPIRIN EC LOW STRENGTH 81 MG TBEC TAKE 1 TAB DAILY ASPIRIN 22654429530 No Longer Active Mariaa Whitman APRN Active ALENDRONATE SODIUM 70 MG TABS TAKE 1 TAB ONCE A WEEK ALENDRONATE SODIUM 78044472294 No Longer Active Mariaa Whitman SALES PERFORMANCE ANALYST Active FLONASE ALLERGY RELIEF 50 MCG/ACT NASAL SUSP One spray each nostril daily for allergies FLUTICASONE PROPIONATE 55911148862 Active Mariaa Whitman SALES PERFORMANCE ANALYST Active CETIRIZINE HCL 10 MG ORAL TABS 1 po qd PRN Allergies CETIRIZINE HCL 82625393542 Active Mariaa Whitman APRN Active BACTRIM DS 800-160 MG TABS 1 pill by mouth twice daily, for UTI SULFAMETHOXAZOLE-TRIMETHOPRIM 36375801616 No Longer Active Ana Cristina Vallejo MD PhD Active HYDROCHLOROTHIAZIDE 12.5 MG CAPS 1 pill by mouth daily, for blood pressure HYDROCHLOROTHIAZIDE 51792302684 Active Mariaa Whitman APRN Active CARVEDILOL 25 MG TABS 1 pill by mouth twice daily for blood pressure CARVEDILOL 09062258025 Active Mariaa Whitman APRN Active SYNTHROID 0.088 MG TAB 1 tablet by mouth daily for thyroid LEVOTHYROXINE SODIUM 40383122197 Active HEDY Esquivel Active AMOXICILLIN 500 MG CAP 1 tab by mouth 3 times daily AMOXICILLIN 48610276865 No Longer Active Alden Kim MD Active [facility] VITAMIN D3 1000 UNIT CAPS TAKE 2 CAP DAILY CHOLECALCIFEROL Active Ana Cristina Vallejo MD PhD Active CALCIUM 500 MG TABS TAKE 3 TABS DAILY CALCIUM 07613113901 No Longer Active Mariaa Whitman APRN Active MULTIVITAMINS TABS TAKE 1 TAB DAILY MULTIPLE VITAMIN Active Aneta Tavarezum AUTOMATIC [employer]IPPER [employer] STRIPPER Active BENADRYL ALLERGY 25 MG TABS NEEDED DIPHENHYDRAMINE HCL 66183880036 Active Aneta Singh Leo [employer]OMATIC [employer]IPPER AND STRIPPER Active TYLENOL 325 MG TABS NEEDED ACETAMINOPHEN 63393307690 Active Aneta Tavarezum AUTOMATIC [employer]IPPER AND STRIPPER Active ADVIL 200 MG TABS TAKE NEEDED IBUPROFEN 67302119765 Active Aneta Tavarezum AUTOMATIC CLIPPER AND STRIPPER Active GLUCOSAMINE-CHONDROITIN 500-400 MG TABS TAKE 1 TAB DAILY GLUCOSAMINE-CHONDROITIN 87724495845 Active Mariaa Whitman APRN Active NORVASC 10 MG TABS TAKE 1 TAB DAILY AMLODIPINE BESYLATE 11665116509 Active Mariaa Wihtman APRN Active BENAZEPRIL HCL 40 MG TABS 1 PO BID BENAZEPRIL HCL 22676415103 Active HEDY Esquivel Active LOVASTATIN 20 MG TABS 1 PO Q HS FOR CHOLESTEROL LOVASTATIN 15548275161 Active HEDY Esquivel Active RANITIDINE HCL 150 MG CAPS 1 PO Q 12 HRS RANITIDINE HCL 76326531930 Active Mariaa Whitman SALES PERFORMANCE ANALYST Active ALENDRONATE SODIUM 70 MG TABS TAKE 1 TAB ONCE A WEEK ALENDRONATE SODIUM 70 MG TABS 939661 ALENDRONATE SODIUM Inactive ADULT ASPIRIN EC LOW STRENGTH 81 MG TBEC TAKE 1 TAB DAILY ADULT ASPIRIN EC LOW STRENGTH 81 MG TBEC 704759 ASPIRIN Inactive ALPRAZOLAM 0.25 MG TAB 1/2-1 tablet by mouth twice a day as needed for stress ALPRAZOLAM 0.25 MG TAB 132690 ALPRAZOLAM Inactive COLACE 100 MG CAP 1 po BID PRN Constipation COLACE 100 MG CAP 4709915 DOCUSATE SODIUM Inactive AMOXICILLIN 500 MG CAP 1 tab by mouth 3 times daily AMOXICILLIN 500 MG CAP 291728 AMOXICILLIN Inactive BACTRIM DS 800-160 MG TABS 1 pill by mouth twice daily, for UTI BACTRIM DS 800-160 MG TABS 723689 SULFAMETHOXAZOLE-TRIMETHOPRIM Inactive Advance Directives Directive Description Start [...] Panel - Chemistry sodium, serum 130 mmol/L 522-965 0008/10/19 potassium, serum 3.5 mmol/L 3.5-5.2 chloride, serum [...] Colorless;Lightyellow;Straw;Yellow Encounters Code Encounter Date Provider Facility [facility]-[id number] Level 4 Est. Patient 10:31:15 CDT Jalil Hayes MD [facility]21446 Level 4 Est. Patient 15:07:54 CDT Mariaa Whitman [facility]52576 Level 3 Est. Patient 20:45:54 SNOW SHOVELER Mariaa Whitman [facility]24280 Level 3 Est. Patient 12:16:16 CDT Ana Cristina Vallejo MD [facility]98858 Level 4 Est. Patient 12:49:21 CDT Ana Cristina Vallejo MD [facility]56043 Level 4 Est. Patient 23:02:25 CDT Ana Cristina Vallejo MD [facility]31927 Level 4 Est. Patient 19:26:33 SNOW SHOVELER Ana Cristina Vallejo MD [facility]32858 Level 4 Est. Patient 11:28:14 CDT Ana Cristina Vallejo MD [facility]81811 Level 4 Est. Patient 15:35:46 SNOW SHOVELER Ana Cristina Vallejo MD [facility]52193 Level 3 Est. Patient 21:06:39 SNOW SHOVELER Alden Kim MD [facility]50815 Level 4 Est. Patient 15:30:54 SNOW SHOVELER Ana Cristina Vallejo MD PhD [facility] Procedures Code Procedure Name Date Entry Date Standard Description CPT-32477 EKG Trac and Interp - XRAY USE ONLY 10:35:11 CDT 09/11 CPT-73165 Chest 2V Frontal and Lat - XRAY USE ONLY 10:35:11 CDT CPT-G0438 Initial Annual Wellness Exam 14:54:07 CDT CPT-G0009 Administration of Pneumococcal Vaccine 14:44:24 CDT CPT-56040 Pneumovax 23 Injection Injectable 25 MCG/0.5ML 14:44:24 CDT CPT-47278 First Vx - Ix admin for Medicare patients 14:44:24 CDT CPT-71511 Fluzone High-Dose Intramuscular Suspension 14:44:20 CDT CPT-43106 BMP - LAB USE ONLY 12:38:06 CDT CPT-95066 Urine Culture - LAB USE ONLY 16:56:33 CDT CPT-TCMM Transitional Care Mgmt-Moderate 18:08:16 CDT CPT-45778 Bone Density 09:14:12 CDT CPT-000 Give Appropriate Flu Vaccine 14:51:52 CDT CPT-88660 Fluzone High Dose (>=65 yrs.) 15:19:23 CDT CPT-23123 Immunization Single Admin 15:19:23 CDT CPT-81265 Prevnar 13 15:40:03 CDT CPT-33399 Administration single or combination vaccine inc oral 15 :40:03 CDT CPT-21606 Prevnar 13 13:55:07 CDT CPT-G0008 Administration of Influenza Virus Vaccine 10:49:51 CDT CPT-76689 Fluzone High-Dose Intramuscular Suspension 10:49:51 CDT CPT-00432 Knee 3V 13:31:37 CDT CPT-31772 Bone Density 09:07:05 SNOW SHOVELER CPT-60003 Nail Avulsion 09:46:05 CDT CPT-32613 Administration single or combination vaccine inc oral 16 :11:54 CDT CPT-85076 Influenza High Dose age 65+ 16:11:54 CDT CPT-46824 Administration single or combination vaccine inc oral 10 :53:15 CDT CPT-99549 Influenza High Dose age 65+ 10:53:15 CDT CPT-62646 Bone Density 14:50:58 SNOW SHOVELER CPT-01997 Administration single or combination vaccine inc oral 15 :41:20 SNOW SHOVELER CPT-80786 Zoster Vaccine (Zostavax) 15:41:20 SNOW SHOVELER CPT-45043 Spec Collection and Handling Fee 11:18:25 SNOW SHOVELER CPT-93018 Administration single or combination vaccine inc oral 11 :14:20 CDT CPT-47002 Influenza High Dose age 65+ 11:14:20 CDT
--- OUTSIDE RECORDS SUMMARY | 2017-07-18 08:51 | XMS REPORT | Clinical Summary ---
Author Author Admin, DANDRE Organization [facility] [employer] Address Unknown Phone Unavailable Allergies, Adverse Reactions, Alerts Allergy Name Reaction Description Start Date Severity Status Provider NKDA Critical Active Mariaa Whitman RN MDS COORDINATOR Conditions or Problems Problem Name Problem Code Onset Date Status Entry Date Provider Comment Standard Description Annotate ROUTINE GYNECOLOGICAL EXAMINATION V72.31 Resolved Ana Cristina Vallejo MD PhD Routine gynecological examination MENOPAUSE 627.2 Ruled out Ana Cristina Vallejo MD PhD Symptomatic menopausal or female climacteric states MENOPAUSE 627.2 Active Brianda Reis [facility] Symptomatic menopausal or female climacteric states DIVERTICULOSIS, [...] a day as needed for stress ALPRAZOLAM 46469559647 Active Mariaa Whitman APRN Active COLACE 100 MG CAP 1 po BID PRN Constipation DOCUSATE SODIUM 30755478721 Active Mariaa Antonette [facility] Active MIRALAX ORAL PACK Takes daily prn POLYETHYLENE GLYCOL 3350 35313686965 Active Mariaa Atkinsonum RN MDS COORDINATOR Active ALENDRONATE SODIUM 70 MG TABS 1 pill by mouth weekly for osteoporosis ALENDRONATE SODIUM 44399564031 Active Brianda RICK Active E-1000 1000 UNIT ORAL CAPS Take one by mouth daily VITAMIN E 96813191407 Active Brianda KNOTT Active OSCAL 500/200 D-3 500-200 MG-UNIT ORAL TABS Take one by mouth 3 times daily, morning, afternoon and evening.] CALCIUM CARBONATE-VITAMIN D 25311535223 Active Brianda RICK Active ASPIRIN 81 MG CHEW TAB 1 tablet by mouth daily ASPIRIN 83722017652 Active Brianda RICK Active ADULT ASPIRIN EC LOW STRENGTH 81 MG TBEC TAKE 1 TAB DAILY ASPIRIN 75364940095 No Longer Active Mariaa Whitman APRN Active ALENDRONATE SODIUM 70 MG TABS TAKE 1 TAB ONCE A WEEK ALENDRONATE SODIUM 09958833817 No Longer Active Mariaa Whitman APRN Active FLONASE ALLERGY RELIEF 50 MCG/ACT NASAL SUSP One spray each nostril daily for allergies FLUTICASONE PROPIONATE 40666519298 Active Mariaa Whitman APRN Active CETIRIZINE HCL 10 MG ORAL TABS 1 po qd PRN Allergies CETIRIZINE HCL 73909854947 Active Mariaa Whitman APRN Active BACTRIM DS 800-160 MG TABS 1 pill by mouth twice daily, for UTI SULFAMETHOXAZOLE-TRIMETHOPRIM 45725452751 No Longer Active Ana Cristina Vallejo MD PhD Active HYDROCHLOROTHIAZIDE 12.5 MG CAPS 1 pill by mouth daily, for blood pressure HYDROCHLOROTHIAZIDE 19192411538 Active Mariaa Whitman APRN Active CARVEDILOL 25 MG TABS 1 pill by mouth twice daily for blood pressure CARVEDILOL 50760929626 Active Mariaa Whitman APRN Active SYNTHROID 0.088 MG TAB 1 tablet by mouth daily for thyroid LEVOTHYROXINE SODIUM 87228337188 Active Mariaa Yokum RN MDS COORDINATOR Active AMOXICILLIN 500 MG CAP 1 tab by mouth 3 times daily AMOXICILLIN 12633224589 No Longer Active Alden Kim MD Active [facility] VITAMIN D3 1000 UNIT CAPS TAKE 2 CAP DAILY CHOLECALCIFEROL Active Ana Cristina Vallejo MD PhD Active CALCIUM 500 MG TABS TAKE 3 TABS DAILY CALCIUM 39954555674 No Longer Active Mariaa Yoxuanum RN MDS COORDINATOR Active MULTIVITAMINS TABS TAKE 1 TAB DAILY MULTIPLE VITAMIN Active Aneta D Leo DROP HAMMER OPERATOR HELPER Active BENADRYL ALLERGY 25 MG TABS NEEDED DIPHENHYDRAMINE HCL 56608924168 Active Aneta D Leo DROP HAMMER OPERATOR HELPER Active TYLENOL 325 MG TABS NEEDED ACETAMINOPHEN 02621769920 Active Aneta D Leo DROP HAMMER OPERATOR HELPER Active ADVIL 200 MG TABS TAKE NEEDED IBUPROFEN 54771323186 Active Aneta D Leo DROP HAMMER OPERATOR HELPER Active GLUCOSAMINE-CHONDROITIN 500-400 MG TABS TAKE 1 TAB DAILY GLUCOSAMINE-CHONDROITIN 80968559260 Active Mariaa Yokum RN MDS COORDINATOR Active NORVASC 10 MG TABS TAKE 1 TAB DAILY AMLODIPINE BESYLATE 87622820341 Active Mariaa Yokum RN MDS COORDINATOR Active BENAZEPRIL HCL 40 MG TABS 1 PO BID BENAZEPRIL HCL 41151333681 Active Mariaa Demetrioum RN MDS COORDINATOR Active LOVASTATIN 20 MG TABS 1 PO Q HS FOR CHOLESTEROL LOVASTATIN 83913874280 Active Mariaa Yokum RN MDS COORDINATOR Active RANITIDINE HCL 150 MG CAPS 1 PO Q 12 HRS RANITIDINE HCL 14978043160 Active Mariaa Yokum RN MDS COORDINATOR Active ALENDRONATE SODIUM 70 MG TABS TAKE 1 TAB ONCE A WEEK ALENDRONATE SODIUM 70 MG TABS 914676 ALENDRONATE SODIUM Inactive ADULT ASPIRIN EC LOW STRENGTH 81 MG TBEC TAKE 1 TAB DAILY ADULT ASPIRIN EC LOW STRENGTH 81 MG TBEC 641902 ASPIRIN Inactive AMOXICILLIN 500 MG CAP 1 tab by mouth 3 times daily AMOXICILLIN 500 MG CAP 503237 AMOXICILLIN Inactive BACTRIM DS 800-160 MG TABS 1 pill by mouth twice daily, for UTI BACTRIM DS 800-160 MG TABS 356079 SULFAMETHOXAZOLE-TRIMETHOPRIM Inactive Advance Directives Directive Description Start [...] Panel - Chemistry sodium, serum 130 mmol/L 848-483 9910/10/19 potassium, serum 3.5 mmol/L 3.5-5.2 chloride, serum [...] Thyroxine (L), Lipid P ... - Chemistry HDL cholesterol, serum 88 mg/dL 32-96 triglyceride, serum, fasting 68 mg/dL 30-200 cholesterol, serum 166 mg/dL 379-583 5069/04/20 thyroxine, serum, free 1.41 ng/dL 0.76-1.46 TSH 1.84 m[iU]/mL 0.36-3.74 LDL cholesterol, serum 64 mg/dL 0-130 sodium, serum 132 mmol/L 375-014 4578/04/20 carbon dioxide, venous blood 31.3 mmol/L 21.0-32.0 [...] 5.0-8.5 Encounters Code Encounter Date Provider Facility CPT-23901 Level 4 Est. Patient 15:07:54 CDT Mariaa Whitman [facility] CPT-32913 Level 3 Est. Patient 20:45:54 NEWS COMMENTATOR Mariaa Whitman [facility] CPT-19411 Level 3 Est. Patient 12:16:16 CDT Ana Cristina Vallejo MD [facility]-40195 Level 4 Est. Patient 12:49:21 CDT Ana Cristina Vallejo MD [facility] CPT-37624 Level 4 Est. Patient 23:02:25 CDT Ana Cristina Vallejo MD [facility]-43900 Level 4 Est. Patient 19:26:33 NEWS COMMENTATOR Ana Cristina Vallejo MD [facility]-00695 Level 4 Est. Patient 11:28:14 CDT Ana Cristina Vallejo MD [facility]-25658 Level 4 Est. Patient 15:35:46 NEWS COMMENTATOR Ana Cristina Vallejo MD [facility] CPT-67836 Level 3 Est. Patient 21:06:39 NEWS COMMENTATOR Alden Kim MD [facility] CPT-07146 Level 4 Est. Patient 15:30:54 NEWS COMMENTATOR Ana Cristina Vallejo MD [facility] Procedures Code Procedure Name Date Entry Date Standard Description CPT-G0438 Initial Annual Wellness Exam 14:54:07 CDT CPT-G0009 Administration of Pneumococcal Vaccine 14:44:24 CDT CPT-82226 Pneumovax 23 Injection Injectable 25 MCG/0.5ML 14:44:24 CDT CPT-34408 First Vx - Ix admin for Medicare patients 14:44:24 CDT CPT-39231 Fluzone High-Dose Intramuscular Suspension 14:44:20 CDT CPT-91499 BMP - LAB USE ONLY 12:38:06 CDT CPT-18654 Urine Culture - LAB USE ONLY 16:56:33 CDT CPT-TCMM Transitional Care Mgmt-Moderate 18:08:16 CDT CPT-58002 Bone Density 09:14:12 CDT CPT-000 Give Appropriate Flu Vaccine 14:51:52 CDT CPT-77052 Fluzone High Dose (>=65 yrs.) 15:19:23 CDT CPT-16454 Immunization Single Admin 15:19:23 CDT CPT-75139 Prevnar 13 15:40:03 CDT CPT-83138 Administration single or combination vaccine inc oral 15 :40:03 CDT CPT-71493 Prevnar 13 13:55:07 CDT CPT-G0008 Administration of Influenza Virus Vaccine 10:49:51 CDT CPT-92306 Fluzone High-Dose Intramuscular Suspension 10:49:51 CDT CPT-83326 Knee 3V 13:31:37 CDT CPT-46170 Bone Density 09:07:05 NEWS COMMENTATOR CPT-58082 Nail Avulsion 09:46:05 CDT CPT-92071 Administration single or combination vaccine inc oral 16 :11:54 CDT CPT-31867 Influenza High Dose age 65+ 16:11:54 CDT CPT-22646 Administration single or combination vaccine inc oral 10 :53:15 CDT CPT-49353 Influenza High Dose age 65+ 10:53:15 CDT CPT-60981 Bone Density 14:50:58 NEWS COMMENTATOR CPT-19647 Administration single or combination vaccine inc oral 15 :41:20 NEWS COMMENTATOR CPT-74466 Zoster Vaccine (Zostavax) 15:41:20 NEWS COMMENTATOR CPT-97385 Spec Collection and Handling Fee 11:18:25 NEWS COMMENTATOR CPT-59392 Administration single or combination vaccine inc oral 11 :14:20 CDT CPT-88675 Influenza High Dose age 65+ 11:14:20 CDT
--- OUTSIDE RECORDS SUMMARY | 2017-07-18 08:52 | XMS REPORT | Clinical Summary ---
Author Author Admin, DANDRE Organization [facility] [employer] Address Unknown Phone Unavailable Allergies, Adverse Reactions, Alerts Allergy Name Reaction Description Start Date Severity Status Provider NKDA Critical Active Mariaa Whitman ORGAN TUNER ELECTRONIC Conditions or Problems Problem Name Problem Code Onset Date Status Entry Date Provider Comment Standard Description Annotate ROUTINE GYNECOLOGICAL EXAMINATION V72.31 Resolved Ana Cristina Vallejo MD PhD Routine gynecological examination MENOPAUSE 627.2 Ruled out Ana Cristina Vallejo MD PhD Symptomatic menopausal or female climacteric states MENOPAUSE 627.2 Active Brianda Reis [facility] Symptomatic menopausal or female climacteric states [...] 2016 Urinary bladder pain ICD-788.99 Inactive Jalil Haeys MD UTI ICD-599.0 Inactive Jalil Hayes MD Medication List Medication Instructions Start Date Stop Date Generic Name NDC Status Provider Patient Instruction OMEPRAZOLE 40 MG CPDR 1 po q a.m. OMEPRAZOLE 81669480908 Active Peggy Pardo LPN Active MIRALAX ORAL PACK Takes daily prn POLYETHYLENE GLYCOL 3350 70564433860 No Longer Active Peggy Pardo LPN Active FLONASE ALLERGY RELIEF 50 MCG/ACT NASAL SUSP One spray each nostril daily for allergies FLUTICASONE PROPIONATE 97415469046 No Longer Active Peggy Pardo LPN Active BENADRYL ALLERGY 25 MG TABS NEEDED DIPHENHYDRAMINE HCL 61259285744 No Longer Active Peggy Pardo LPN Active ADVIL 200 MG TABS TAKE NEEDED IBUPROFEN 55795798548 No Longer Active Peggy Pardo LPN Active AUGMENTIN 875-125 MG TAB 1 po BID x 7 days AMOXICILLIN-POT CLAVULANATE 57185152656 Active Peggy Pardo LPN Active COLACE 100 MG CAP 1 po BID PRN Constipation DOCUSATE SODIUM 61407797932 No Longer Active Deepti Junior LPN Active ALPRAZOLAM 0.25 MG TAB 1/2-1 tablet by mouth twice a day as needed for stress ALPRAZOLAM 85392666932 No Longer Active Deepti Junior LPN Active ALENDRONATE SODIUM 70 MG TABS 1 pill by mouth weekly for osteoporosis ALENDRONATE SODIUM 18866036821 Active Brianda RICK Active E-1000 1000 UNIT ORAL CAPS Take one by mouth daily VITAMIN E 76925680008 Active Brianda KNOTT Active OSCAL 500/200 D-3 500-200 MG-UNIT ORAL TABS Take one by mouth 3 times daily, morning, afternoon and evening.] CALCIUM CARBONATE-VITAMIN D 58201262666 Active Brianda RICK Active ASPIRIN 81 MG CHEW TAB 1 tablet by mouth daily ASPIRIN 52807528046 Active Brianda Reis [facility] Active ADULT ASPIRIN EC LOW STRENGTH 81 MG TBEC TAKE 1 TAB DAILY ASPIRIN 23040220012 No Longer Active Mariaa Whitman APRN Active ALENDRONATE SODIUM 70 MG TABS TAKE 1 TAB ONCE A WEEK ALENDRONATE SODIUM 43710592374 No Longer Active Mariaa Whitman APRN Active CETIRIZINE HCL 10 MG ORAL TABS 1 po qd PRN Allergies CETIRIZINE HCL 81979786024 Active HEDY Esquivel Active BACTRIM DS 800-160 MG TABS 1 pill by mouth twice daily, for UTI SULFAMETHOXAZOLE-TRIMETHOPRIM 55523441837 No Longer Active Ana Cristina Vallejo MD PhD Active HYDROCHLOROTHIAZIDE 12.5 MG CAPS 1 pill by mouth daily, for blood pressure HYDROCHLOROTHIAZIDE 77985842804 Active HEDY Esquivel Active CARVEDILOL 25 MG TABS 1 pill by mouth twice daily for blood pressure CARVEDILOL 60301735715 Active HEDY Esquivel Active SYNTHROID 0.088 MG TAB 1 tablet by mouth daily for thyroid LEVOTHYROXINE SODIUM 06433436533 Active HEDY Esquivel Active AMOXICILLIN 500 MG CAP 1 tab by mouth 3 times daily AMOXICILLIN 27524671171 No Longer Active Alden Kim MD Active CVS VITAMIN D3 1000 UNIT CAPS TAKE 2 CAP DAILY CHOLECALCIFEROL Active Ana Cristina Vallejo MD PhD Active CALCIUM 500 MG TABS TAKE 3 TABS DAILY CALCIUM 18138001653 No Longer Active Mariaa Lauxuanbeckie ORGAN TUNER ELECTRONIC Active MULTIVITAMINS TABS TAKE 1 TAB DAILY MULTIPLE VITAMIN Active Aneta Tavarezum DISTRIBUTION DESIGNER Active TYLENOL 325 MG TABS NEEDED ACETAMINOPHEN 53731703671 Active Aneta Tavarezum DISTRIBUTION DESIGNER Active GLUCOSAMINE-CHONDROITIN 500-400 MG TABS TAKE 1 TAB DAILY GLUCOSAMINE-CHONDROITIN 76838319970 Active Mariaa Laudee ORGAN TUNER ELECTRONIC Active NORVASC 10 MG TABS TAKE 1 TAB DAILY AMLODIPINE BESYLATE 18385208506 Active Risa Calderon RMA Active BENAZEPRIL HCL 40 MG TABS 1 PO BID BENAZEPRIL HCL 55945440270 Active Risa Calderon RMA Active LOVASTATIN 20 MG TABS 1 PO Q HS FOR CHOLESTEROL LOVASTATIN 21220271573 Active Risa Calderon Robin Active RANITIDINE HCL 150 MG CAPS 1 PO Q 12 HRS RANITIDINE HCL 98845008708 Active Risa Calderon A Active ALENDRONATE SODIUM 70 MG TABS TAKE 1 TAB ONCE A WEEK ALENDRONATE SODIUM 70 MG TABS 632115 ALENDRONATE SODIUM Inactive ADULT ASPIRIN EC LOW STRENGTH 81 MG TBEC TAKE 1 TAB DAILY ADULT ASPIRIN EC LOW STRENGTH 81 MG TBEC 407140 ASPIRIN Inactive ALPRAZOLAM 0.25 MG TAB 1/2-1 tablet by mouth twice a day as needed for stress ALPRAZOLAM 0.25 MG TAB 088938 ALPRAZOLAM Inactive COLACE 100 MG CAP 1 po BID PRN Constipation COLACE 100 MG CAP 2295189 DOCUSATE SODIUM Inactive ADVIL 200 MG TABS TAKE NEEDED ADVIL 200 MG TABS 433020 IBUPROFEN Inactive BENADRYL ALLERGY 25 MG TABS NEEDED BENADRYL ALLERGY 25 MG TABS 0567623 DIPHENHYDRAMINE HCL Inactive FLONASE ALLERGY RELIEF 50 MCG/ACT NASAL SUSP One spray each nostril daily for allergies FLONASE ALLERGY RELIEF 50 MCG/ACT NASAL SUSP 9144481 FLUTICASONE PROPIONATE Inactive MIRALAX ORAL PACK Takes daily prn MIRALAX ORAL PACK 353795 POLYETHYLENE GLYCOL 3350 Inactive AMOXICILLIN 500 MG CAP 1 tab by mouth 3 times daily AMOXICILLIN 500 MG CAP 323536 AMOXICILLIN Inactive BACTRIM DS 800-160 MG TABS 1 pill by mouth twice daily, for UTI BACTRIM DS 800-160 MG TABS 940741 SULFAMETHOXAZOLE-TRIMETHOPRIM Inactive Advance Directives Directive Description Start [...] Panel - Chemistry sodium, serum 130 mmol/L 926-281 4514/10/19 potassium, serum 3.5 mmol/L 3.5-5.2 chloride, serum 92 mmol/L 98-107 carbon dioxide, venous blood 33.6 mmol/L 21.0-32.0 blood glucose 118 mg/dL 65-110 calcium, serum 8.8 mg/dL 8.5-10.1 urea nitrogen, blood 11 mg/dL 7-18 creatinine, serum 1.12 mg/dL 0.55-1.30 Lab Report: CBC-QUEST, COMPREHENSIVE METABOLIC PANEL, LIPID PANEL, Micro ... - Chemistry cholesterol, serum 162 mg/dL 752-276 3954/05/01 HDL cholesterol, serum 68 mg/dL > OR=46 [...] % 11.0-15.0 platelet count 297 THOUSAND/UL 10*3/mm3 663-753 7265/05/01 mean platelet volume 8.9 fL 7.5-12.5 Lab [...] Negative Encounters Code Encounter Date Provider Facility CPT-88148 Level 4 Est. Patient 14:40:54 CDT Bee Rosas [facility] CPT-50944 Level 4 Est. Patient 10:31:15 CDT Jalil Hayes MD [facility] CPT-22377 Level 4 Est. Patient 15:07:54 CDT Mariaa Whitman [facility] CPT-38260 Level 3 Est. Patient 20:45:54 BIOSTATISTICS DIRECTOR Mariaa Antonette [facility] CPT-40723 Level 3 Est. Patient 12:16:16 CDT Ana Cristina Vallejo MD [facility] CPT-29909 Level 4 Est. Patient 12:49:21 CDT Ana Cristina Vallejo MD [facility] CPT-99115 Level 4 Est. Patient 23:02:25 CDT Ana Cristina Vallejo MD [facility] CPT-75480 Level 4 Est. Patient 19:26:33 BIOSTATISTICS DIRECTOR Ana Cristina Vallejo MD [facility] CPT-22660 Level 4 Est. Patient 11:28:14 CDT Ana Cristina Vallejo MD [facility] CPT-59122 Level 4 Est. Patient 15:35:46 BIOSTATISTICS DIRECTOR Ana Cristina Vallejo MD [facility] CPT-65834 Level 3 Est. Patient 21:06:39 BIOSTATISTICS DIRECTOR Alden Kim MD [facility] CPT-98538 Level 4 Est. Patient 15:30:54 BIOSTATISTICS DIRECTOR Ana Cristina Vallejo MD PhD [facility] Procedures Code Procedure Name Date Entry Date Standard Description CPT-97630 EKG Trac and Interp - XRAY USE ONLY 10:35:11 CDT 09/11 CPT-81886 Chest 2V Frontal and Lat - XRAY USE ONLY 10:35:11 CDT CPT-G0438 Initial Annual Wellness Exam 14:54:07 CDT CPT-G0009 Administration of Pneumococcal Vaccine 14:44:24 CDT CPT-97136 Pneumovax 23 Injection Injectable 25 MCG/0.5ML 14:44:24 CDT CPT-47889 First Vx - Ix admin for Medicare patients 14:44:24 CDT CPT-53794 Fluzone High-Dose Intramuscular Suspension 14:44:20 CDT CPT-82649 BMP - LAB USE ONLY 12:38:06 CDT CPT-57509 Urine Culture - LAB USE ONLY 16:56:33 CDT CPT-TCMM Transitional Care Mgmt-Moderate 18:08:16 CDT CPT-34092 Bone Density 09:14:12 CDT CPT-000 Give Appropriate Flu Vaccine 14:51:52 CDT CPT-49003 Fluzone High Dose (>=65 yrs.) 15:19:23 CDT CPT-62874 Immunization Single Admin 15:19:23 CDT CPT-19729 Prevnar 13 15:40:03 CDT CPT-11784 Administration single or combination vaccine inc oral 15 :40:03 CDT CPT-40400 Prevnar 13 13:55:07 CDT CPT-G0008 Administration of Influenza Virus Vaccine 10:49:51 CDT CPT-25060 Fluzone High-Dose Intramuscular Suspension 10:49:51 CDT CPT-80512 Knee 3V 13:31:37 CDT CPT-33238 Bone Density 09:07:05 BIOSTATISTICS DIRECTOR CPT-90655 Nail Avulsion 09:46:05 CDT CPT-10440 Administration single or combination vaccine inc oral 16 :11:54 CDT CPT-18796 Influenza High Dose age 65+ 16:11:54 CDT CPT-62441 Administration single or combination vaccine inc oral 10 :53:15 CDT CPT-51440 Influenza High Dose age 65+ 10:53:15 CDT CPT-50836 Bone Density 14:50:58 BIOSTATISTICS DIRECTOR CPT-38630 Administration single or combination vaccine inc oral 15 :41:20 BIOSTATISTICS DIRECTOR CPT-17680 Zoster Vaccine (Zostavax) 15:41:20 BIOSTATISTICS DIRECTOR CPT-67166 Spec Collection and Handling Fee 11:18:25 BIOSTATISTICS DIRECTOR CPT-59294 Administration single or combination vaccine inc oral 11 :14:20 CDT CPT-62738 Influenza High Dose age 65+ 11:14:20 CDT
--- OUTSIDE RECORDS SUMMARY | 2017-07-18 08:53 | XMS REPORT | Clinical Summary ---
Author Author Admin, DANDRE Organization [facility] Address Unknown Phone Unavailable Allergies, Adverse Reactions, [...] by mouth twice daily, for UTI SULFAMETHOXAZOLE-TRIMETHOPRIM 01663692234 No Longer Active Ana Cristina Vallejo MD PhD Active HYDROCHLOROTHIAZIDE 12.5 MG CAPS 1 pill by mouth daily, for blood pressure HYDROCHLOROTHIAZIDE 87382877201 Active Mariaadomenico Whitman APRN Active CARVEDILOL 25 MG TABS 1 pill by mouth twice daily for blood pressure CARVEDILOL 34681352403 Active Mariaa Yokum BUCKET TURNER Active SYNTHROID 0.088 MG TAB 1 tablet by mouth daily for thyroid LEVOTHYROXINE SODIUM 88439150584 Active Mariaa Laudee BUCKET TURNER Active AMOXICILLIN 500 MG CAP 1 tab by mouth 3 times daily AMOXICILLIN 57130795443 No Longer Active Alden Kim MD Active CVS VITAMIN D3 1000 UNIT CAPS TAKE 2 CAP DAILY CHOLECALCIFEROL 27974526222 Active Ana Cristina Vallejo MD PhD Active CALCIUM 500 MG TABS TAKE 3 TABS DAILY CALCIUM 34276283807 Active Aneta Samantha Leo VP ANCILLARY Active MULTIVITAMINS TABS TAKE 1 TAB DAILY MULTIPLE VITAMIN 61892880174 Active Aneta Tavarezum VP ANCILLARY Active BENADRYL ALLERGY 25 MG TABS NEEDED DIPHENHYDRAMINE HCL 20422401648 Active Aneta Singh Leo VP ANCILLARY Active TYLENOL 325 MG TABS NEEDED ACETAMINOPHEN 81917780110 Active Aneta Tavarezum VP ANCILLARY Active ADVIL 200 MG TABS TAKE NEEDED IBUPROFEN 25961763194 Active Aneta D Leo VP ANCILLARY Active ADULT ASPIRIN EC LOW STRENGTH 81 MG TBEC TAKE 1 TAB DAILY ASPIRIN 24304654019 Active Aneta Tavarezum VP ANCILLARY Active VITAMIN E NATURAL 400 UNIT CAPS TAKE 1 CAP DAILY VITAMIN E 43713253267 Active Aneta Tavarezum VP ANCILLARY Active GLUCOSAMINE-CHONDROITIN 500-400 MG TABS TAKE 1 TAB DAILY GLUCOSAMINE-CHONDROITIN 04103623107 Active Aneta Tavarezum VP ANCILLARY Active NORVASC 10 MG TABS TAKE 1 TAB DAILY AMLODIPINE BESYLATE 41305313326 Active Mariaa Whitman APRN Active BENAZEPRIL HCL 40 MG TABS 1 PO BID BENAZEPRIL HCL 19927031796 Active HEDY Esquivel Active LOVASTATIN 20 MG TABS 1 PO Q HS FOR CHOLESTEROL LOVASTATIN 94460211313 Active Mariaa Whitman APRN Active RANITIDINE HCL 150 MG CAPS 1 PO Q 12 HRS RANITIDINE HCL 34827288591 Active Mariaa Whitman APRN Active ALENDRONATE SODIUM 70 MG TABS TAKE 1 TAB ONCE A WEEK ALENDRONATE SODIUM 46383187944 Active Mariaa Whitman APRN Active AMOXICILLIN 500 MG CAP 1 tab by mouth 3 times daily AMOXICILLIN 500 MG CAP 843090 AMOXICILLIN Inactive BACTRIM DS 800-160 MG TABS 1 pill by mouth twice daily, for UTI BACTRIM DS 800-160 MG TABS 661094 SULFAMETHOXAZOLE-TRIMETHOPRIM Inactive Immunizations Vaccine Administration Date Value [...] Panel - Chemistry sodium, serum 136 mmol/L 658-366 7389/03/24 potassium, serum 4.3 mmol/L 3.5-5.2 chloride, serum [...] 5.0-8.5 Encounters Code Encounter Date Provider Facility CPT-10128 Level 3 Est. Patient 20:45:54 VP TRANSPORTATION Mariaa Whitman APRN [facility] CPT-27538 Level 3 Est. Patient 12:16:16 CDT Ana Cristina Vallejo MD [facility] CPT-46679 Level 4 Est. Patient 12:49:21 CDT Ana Critsina Vallejo MD PhD [facility] CPT-30774 Level 4 Est. Patient 23:02:25 CDT Ana Cristina Vallejo MD [facility]12 Level 4 Est. Patient 19:26:33 VP TRANSPORTATION Ana Cristina Vallejo MD PhD [facility]-93349 Level 4 Est. Patient 11:28:14 CDT Ana Cristina Vallejo MD PhD [facility] CPT-81743 Level 4 Est. Patient 15:35:46 VP TRANSPORTATION Ana Cristina Vallejo MD PhD [facility] CPT-89276 Level 3 Est. Patient 21:06:39 VP TRANSPORTATION Alden Kim MD [facility] CPT-27469 Level 4 Est. Patient 15:30:54 VP TRANSPORTATION Ana Cristina Vallejo MD PhD [facility] Procedures Code Procedure Name Date Entry Date Standard Description CPT-000 Give Appropriate Flu Vaccine 14:51:52 CDT CPT-40616 Fluzone High Dose (>=65 yrs.) 15:19:23 CDT CPT-31827 Immunization Single Admin 15:19:23 CDT CPT-54274 Prevnar 13 15:40:03 CDT CPT-53683 Administration single or combination vaccine inc oral 15 :40:03 CDT CPT-33764 Prevnar 13 13:55:07 CDT CPT-G0008 Administration of Influenza Virus Vaccine 10:49:51 CDT CPT-14808 Fluzone High-Dose Intramuscular Suspension 10:49:51 CDT CPT-36174 Knee 3V 13:31:37 CDT CPT-05198 Bone Density 09:07:05 VP TRANSPORTATION CPT-44214 Nail Avulsion 09:46:05 CDT CPT-27958 Administration single or combination vaccine inc oral 16 :11:54 CDT CPT-95008 Influenza High Dose age 65+ 16:11:54 CDT CPT-38957 Administration single or combination vaccine inc oral 10 :53:15 CDT CPT-86591 Influenza High Dose age 65+ 10:53:15 CDT CPT-85808 Bone Density 14:50:58 VP TRANSPORTATION CPT-76999 Administration single or combination vaccine inc oral 15 :41:20 VP TRANSPORTATION CPT-48218 Zoster Vaccine (Zostavax) 15:41:20 VP TRANSPORTATION CPT-74729 Spec Collection and Handling Fee 11:18:25 VP TRANSPORTATION CPT-80479 Administration single or combination vaccine inc oral 11 :14:20 CDT CPT-57393 Influenza High Dose age 65+ 11:14:20 CDT
--- OUTSIDE RECORDS SUMMARY | 2017-07-18 08:53 | XMS REPORT | Clinical Summary ---
Author Author Admin, DANDRE Organization [facility] [employer] Address Unknown Phone Unavailable Allergies, Adverse Reactions, Alerts Allergy Name Reaction Description Start Date Severity Status Provider NKDA Critical Active Mariaa Whitman WELDING OPERATOR Conditions or Problems Problem Name Problem Code Onset Date Status Entry Date Provider Comment Standard Description Annotate ROUTINE GYNECOLOGICAL EXAMINATION V72.31 Resolved Ana Cristina Vallejo MD PhD Routine gynecological examination MENOPAUSE 627.2 Ruled out Ana Cristina Vallejo MD PhD Symptomatic menopausal or female climacteric states MENOPAUSE 627.2 Active Brianda Reis ON LICENSE OF [facility] Symptomatic menopausal or female [...] Sciatica Sciatica, left 724.3 Active Mariaa Whitman WELDING OPERATOR Sciatica Urinary bladder pain 788.99 Resolved Jalil [...] 1 po BID PRN Constipation DOCUSATE SODIUM 17538225435 No Longer Active Deepti Madl STRUCTURAL STEEL WORKER APPRENTICE Active ALPRAZOLAM 0.25 MG TAB 1/2-1 tablet by mouth twice a day as needed for stress ALPRAZOLAM 30979744006 No Longer Active Deepti Madl STRUCTURAL STEEL WORKER APPRENTICE Active MIRALAX ORAL PACK Takes daily prn POLYETHYLENE GLYCOL 3350 46156427522 Active Mariaa Whitman WELDING OPERATOR Active ALENDRONATE SODIUM 70 MG TABS 1 pill by mouth weekly for osteoporosis ALENDRONATE SODIUM 45979746255 Active Brianda Reis ON LICENSE OF [facility] Active E-1000 1000 UNIT ORAL CAPS Take one by mouth daily VITAMIN E 47643527836 [facility] Active OSCAL 500/200 D-3 500-200 MG-UNIT ORAL TABS Take one by mouth 3 times daily, morning, afternoon and evening.] CALCIUM CARBONATE-VITAMIN D 28688572002 Active [facility] Active ASPIRIN 81 MG CHEW TAB 1 tablet by mouth daily ASPIRIN 28989182574 Active Brianda [facility] Active ADULT ASPIRIN EC LOW STRENGTH 81 MG TBEC TAKE 1 TAB DAILY ASPIRIN 22707077235 No Longer Active Mariaa Whitman WELDING OPERATOR Active ALENDRONATE SODIUM 70 MG TABS TAKE 1 TAB ONCE A WEEK ALENDRONATE SODIUM 46508847612 No Longer Active Mariaa Atkinsonum WELDING OPERATOR Active FLONASE ALLERGY RELIEF 50 MCG/ACT NASAL SUSP One spray each nostril daily for allergies FLUTICASONE PROPIONATE 68599309903 Active Mariaa Atkinsonum WELDING OPERATOR Active CETIRIZINE HCL 10 MG ORAL TABS 1 po qd PRN Allergies CETIRIZINE HCL 76770780309 Active Mariaadomenico Whitman APRN Active BACTRIM DS 800-160 MG TABS 1 pill by mouth twice daily, for UTI SULFAMETHOXAZOLE-TRIMETHOPRIM 99129838688 No Longer Active Ana Cristina Vallejo MD PhD Active HYDROCHLOROTHIAZIDE 12.5 MG CAPS 1 pill by mouth daily, for blood pressure HYDROCHLOROTHIAZIDE 81823751793 Active Mariaa Whitman APRN Active CARVEDILOL 25 MG TABS 1 pill by mouth twice daily for blood pressure CARVEDILOL 29224801260 Active Mariaadomenico Whitman APRN Active SYNTHROID 0.088 MG TAB 1 tablet by mouth daily for thyroid LEVOTHYROXINE SODIUM 37942092111 Active HEDY Esquivel Active AMOXICILLIN 500 MG CAP 1 tab by mouth 3 times daily AMOXICILLIN 39223519038 No Longer Active Alden Kim MD Active CVS VITAMIN D3 1000 UNIT CAPS TAKE 2 CAP DAILY CHOLECALCIFEROL Active Ana Cristina Vallejo MD PhD Active CALCIUM 500 MG TABS TAKE 3 TABS DAILY CALCIUM 53619696372 No Longer Active Mariaa Whitman APRN Active MULTIVITAMINS TABS TAKE 1 TAB DAILY MULTIPLE VITAMIN Active Aneta D Leo STRUCTURAL STEEL WORKER APPRENTICE Active BENADRYL ALLERGY 25 MG TABS NEEDED DIPHENHYDRAMINE HCL 37761869682 Active Aneta D Leo STRUCTURAL STEEL WORKER APPRENTICE Active TYLENOL 325 MG TABS NEEDED ACETAMINOPHEN 86433573854 Active Aneta Singh Leo STRUCTURAL STEEL WORKER APPRENTICE Active ADVIL 200 MG TABS TAKE NEEDED IBUPROFEN 87330726063 Active Aneta D Leo STRUCTURAL STEEL WORKER APPRENTICE Active GLUCOSAMINE-CHONDROITIN 500-400 MG TABS TAKE 1 TAB DAILY GLUCOSAMINE-CHONDROITIN 58637844024 Active Mariaa Whitman APRN Active NORVASC 10 MG TABS TAKE 1 TAB DAILY AMLODIPINE BESYLATE 08539289852 Active Mariaa Whitman APRN Active BENAZEPRIL HCL 40 MG TABS 1 PO BID BENAZEPRIL HCL 69218645921 Active Risa Calderon, RMA Active LOVASTATIN 20 MG TABS 1 PO Q HS FOR CHOLESTEROL LOVASTATIN 82911863449 Active HEDY Esquivel Active RANITIDINE HCL 150 MG CAPS 1 PO Q 12 HRS RANITIDINE HCL 03145874958 Active Mariaa Whitman APRN Active ALENDRONATE SODIUM 70 MG TABS TAKE 1 TAB ONCE A WEEK ALENDRONATE SODIUM 70 MG TABS 481287 ALENDRONATE SODIUM Inactive ADULT ASPIRIN EC LOW STRENGTH 81 MG TBEC TAKE 1 TAB DAILY ADULT ASPIRIN EC LOW STRENGTH 81 MG TBEC 715215 ASPIRIN Inactive ALPRAZOLAM 0.25 MG TAB 1/2-1 tablet by mouth twice a day as needed for stress ALPRAZOLAM 0.25 MG TAB 979908 ALPRAZOLAM Inactive COLACE 100 MG CAP 1 po BID PRN Constipation COLACE 100 MG CAP 4513576 DOCUSATE SODIUM Inactive AMOXICILLIN 500 MG CAP 1 tab by mouth 3 times daily AMOXICILLIN 500 MG CAP 803786 AMOXICILLIN Inactive BACTRIM DS 800-160 MG TABS 1 pill by mouth twice daily, for UTI BACTRIM DS 800-160 MG TABS 336790 SULFAMETHOXAZOLE-TRIMETHOPRIM Inactive Advance Directives Directive Description Start [...] Panel - Chemistry sodium, serum 130 mmol/L 385-731 3471/10/19 potassium, serum 3.5 mmol/L 3.5-5.2 chloride, serum [...] 5.0-8.5 Encounters Code Encounter Date Provider Facility CPT-30919 Level 4 Est. Patient 10:31:15 CDT Jalil Hayes MD [facility]-81146 Level 4 Est. Patient 15:07:54 CDT Mariaa Whitman [facility]-21166 Level 3 Est. Patient 20:45:54 PRODUCT DEVELOPMENT CHEMIST Mariaa Whitman [facility] CPT-64151 Level 3 Est. Patient 12:16:16 CDT Ana Cristina Vallejo MD [facility]-62642 Level 4 Est. Patient 12:49:21 CDT Ana Cristina Vallejo MD [facility] CPT-04889 Level 4 Est. Patient 23:02:25 CDT Ana Cristina Vallejo MD [facility]-29093 Level 4 Est. Patient 19:26:33 PRODUCT DEVELOPMENT CHEMIST Ana Cristina Vallejo MD [facility]-68368 Level 4 Est. Patient 11:28:14 CDT Ana Cristina Vallejo MD [facility]-64042 Level 4 Est. Patient 15:35:46 PRODUCT DEVELOPMENT CHEMIST Ana Cristina Vallejo MD [facility]-09163 Level 3 Est. Patient 21:06:39 PRODUCT DEVELOPMENT CHEMIST Alden Kim MD [facility]-54760 Level 4 Est. Patient 15:30:54 PRODUCT DEVELOPMENT CHEMIST Ana Cristina Vallejo MD [facility] Procedures Code Procedure Name Date Entry Date Standard Description CPT-49348 EKG Trac and Interp - XRAY USE ONLY 10:35:11 CDT 09/11 CPT-68524 Chest 2V Frontal and Lat - XRAY USE ONLY 10:35:11 CDT CPT-G0438 Initial Annual Wellness Exam 14:54:07 CDT CPT-G0009 Administration of Pneumococcal Vaccine 14:44:24 CDT CPT-68655 Pneumovax 23 Injection Injectable 25 MCG/0.5ML 14:44:24 CDT CPT-07421 First Vx - Ix admin for Medicare patients 14:44:24 CDT CPT-23089 Fluzone High-Dose Intramuscular Suspension 14:44:20 CDT CPT-12793 BMP - LAB USE ONLY 12:38:06 CDT CPT-35747 Urine Culture - LAB USE ONLY 16:56:33 CDT CPT-TCMM Transitional Care Mgmt-Moderate 18:08:16 CDT CPT-45326 Bone Density 09:14:12 CDT CPT-000 Give Appropriate Flu Vaccine 14:51:52 CDT CPT-11592 Fluzone High Dose (>=65 yrs.) 15:19:23 CDT CPT-89983 Immunization Single Admin 15:19:23 CDT CPT-06903 Prevnar 13 15:40:03 CDT CPT-23858 Administration single or combination vaccine inc oral 15 :40:03 CDT CPT-88668 Prevnar 13 13:55:07 CDT CPT-G0008 Administration of Influenza Virus Vaccine 10:49:51 CDT CPT-45034 Fluzone High-Dose Intramuscular Suspension 10:49:51 CDT CPT-04430 Knee 3V 13:31:37 CDT CPT-49264 Bone Density 09:07:05 PRODUCT DEVELOPMENT CHEMIST CPT-09985 Nail Avulsion 09:46:05 CDT CPT-49415 Administration single or combination vaccine inc oral 16 :11:54 CDT CPT-23095 Influenza High Dose age 65+ 16:11:54 CDT CPT-87741 Administration single or combination vaccine inc oral 10 :53:15 CDT CPT-33462 Influenza High Dose age 65+ 10:53:15 CDT CPT-66487 Bone Density 14:50:58 PRODUCT DEVELOPMENT CHEMIST CPT-17324 Administration single or combination vaccine inc oral 15 :41:20 PRODUCT DEVELOPMENT CHEMIST CPT-46373 Zoster Vaccine (Zostavax) 15:41:20 PRODUCT DEVELOPMENT CHEMIST CPT-42232 Spec Collection and Handling Fee 11:18:25 PRODUCT DEVELOPMENT CHEMIST CPT-15758 Administration single or combination vaccine inc oral 11 :14:20 CDT CPT-34308 Influenza High Dose age 65+ 11:14:20 CDT
--- OUTSIDE RECORDS SUMMARY | 2017-07-18 08:53 | XMS REPORT ---
Author Author [facility] Medical Staff Organization [facility] Address [address] [place] [id number] Phone [phone] Care Team Providers Care Sales Professional Name Role Phone LEANDRO BUCKLEY MD PP [phone] Summary purpose TRANSITION OF CARE AUTO GENERATION [...]
--- OUTSIDE RECORDS SUMMARY | 2017-07-18 08:54 | XMS REPORT | Clinical Summary ---
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 Conditions or Problems Problem Name Problem [...] CAPS 1 pill by mouth daily HYDROCHLOROTHIAZIDE 14660365880 Active Jalil Hayes MD Active RANITIDINE HCL 150 MG CAPS once nightly RANITIDINE HCL 60654381517 Active Jalil Hayes MD Active BENAZEPRIL HCL 40 MG TABS 1 daily for blood pressure BENAZEPRIL HCL 77194334285 Active Jalil Hayes MD Active HYDROCHLOROTHIAZIDE 12.5 MG CAPS 1 pill by mouth daily, for blood pressure HYDROCHLOROTHIAZIDE 81501936501 No Longer Active Jalil Hayes MD Active AUGMENTIN 875-125 MG TAB 1 po BID x 7 days AMOXICILLIN-POT CLAVULANATE 35360199273 No Longer Active Jalil Hayes MD Active OMEPRAZOLE 40 MG CPDR 1 po q a.m. OMEPRAZOLE 02378305288 Active Peggy Pardo LPN Active MIRALAX ORAL PACK Takes daily prn POLYETHYLENE GLYCOL 3350 58044191908 No Longer Active Peggy Pardo LPN Active FLONASE ALLERGY RELIEF 50 MCG/ACT NASAL SUSP One spray each nostril daily for allergies FLUTICASONE PROPIONATE 19654575847 No Longer Active Peggy Pardo LPN Active BENADRYL ALLERGY 25 MG TABS NEEDED DIPHENHYDRAMINE HCL 28684314466 No Longer Active Peggy Pardo LPN Active ADVIL 200 MG TABS TAKE NEEDED IBUPROFEN 84839877574 No Longer Active Peggy Pardo LPN Active COLACE 100 MG CAP 1 po BID PRN Constipation DOCUSATE SODIUM 26311539234 No Longer Active Deepti Junior LPN Active ALPRAZOLAM 0.25 MG TAB 1/2-1 tablet by mouth twice a day as needed for stress ALPRAZOLAM 05598503112 No Longer Active Deepti Junior LPN Active ALENDRONATE SODIUM 70 MG TABS 1 pill by mouth weekly for osteoporosis ALENDRONATE SODIUM 66739565907 Active Brianda Bergerford ON LICENSE OF [facility] Active E-1000 1000 UNIT ORAL CAPS Take one by mouth daily VITAMIN E 35320390602 Active Brianda Reis ON LICENSE OF [facility] Active OSCAL 500/200 D-3 500-200 MG-UNIT ORAL TABS Take one by mouth 3 times daily, morning, afternoon and evening.] CALCIUM CARBONATE-VITAMIN D 80804277788 Active Brianda Reis ON LICENSE OF [facility] Active ASPIRIN 81 MG CHEW TAB 1 tablet by mouth daily ASPIRIN 07666042803 Active Brianda Reis ON LICENSE OF [facility] Active ADULT ASPIRIN EC LOW STRENGTH 81 MG TBEC TAKE 1 TAB DAILY ASPIRIN 12832857468 No Longer Active Mariaa Whitman APRN Active ALENDRONATE SODIUM 70 MG TABS TAKE 1 TAB ONCE A WEEK ALENDRONATE SODIUM 12398324522 No Longer Active Mraiaa Whitman APRN Active CETIRIZINE HCL 10 MG ORAL TABS 1 po qd PRN Allergies CETIRIZINE HCL 39154449280 Active HEDY Esquivel Active BACTRIM DS 800-160 MG TABS 1 pill by mouth twice daily, for UTI SULFAMETHOXAZOLE-TRIMETHOPRIM 19792531639 No Longer Active Ana Cristina Vallejo MD PhD Active CARVEDILOL 25 MG TABS 1 pill by mouth twice daily for blood pressure CARVEDILOL 78203225263 Active HEDY Esquivel Active SYNTHROID 0.088 MG TAB 1 tablet by mouth daily for thyroid LEVOTHYROXINE SODIUM 61471754766 Active HEDY Esquivel Active AMOXICILLIN 500 MG CAP 1 tab by mouth 3 times daily AMOXICILLIN 68972329666 No Longer Active Alden Kim MD Active [facility] VITAMIN D3 1000 UNIT CAPS TAKE 2 CAP DAILY CHOLECALCIFEROL Active Ana Cristina Vallejo MD PhD Active CALCIUM 500 MG TABS TAKE 3 TABS DAILY CALCIUM 74262885314 No Longer Active Mariaa Whitman APRN Active MULTIVITAMINS TABS TAKE 1 TAB DAILY MULTIPLE VITAMIN Active Aneta D Leo PLASTERER [employer] Active TYLENOL 325 MG TABS NEEDED ACETAMINOPHEN 69498500206 Active Aneta Singh Leo PLASTERER [employer] Active GLUCOSAMINE-CHONDROITIN 500-400 MG TABS TAKE 1 TAB DAILY GLUCOSAMINE-CHONDROITIN 86196404987 Active Mariaa Whitman APRN Active NORVASC 10 MG TABS TAKE 1 TAB DAILY AMLODIPINE BESYLATE 02959705544 Active HEDY Esquivel Active LOVASTATIN 20 MG TABS 1 PO Q HS FOR CHOLESTEROL LOVASTATIN 99531741088 Active HEDY Esquivel Active ALENDRONATE SODIUM 70 MG TABS TAKE 1 TAB ONCE A WEEK ALENDRONATE SODIUM 70 MG TABS 270223 ALENDRONATE SODIUM Inactive ADULT ASPIRIN EC LOW STRENGTH 81 MG TBEC TAKE 1 TAB DAILY ADULT ASPIRIN EC LOW STRENGTH 81 MG [facility] 502210 ASPIRIN Inactive ALPRAZOLAM 0.25 MG TAB 1/2-1 tablet by mouth twice a day as needed for stress ALPRAZOLAM 0.25 MG TAB 133099 ALPRAZOLAM Inactive COLACE 100 MG CAP 1 po BID PRN Constipation COLACE 100 MG CAP 4999143 DOCUSATE SODIUM Inactive ADVIL 200 MG TABS TAKE NEEDED ADVIL 200 MG TABS 887414 IBUPROFEN Inactive BENADRYL ALLERGY 25 MG TABS NEEDED BENADRYL ALLERGY 25 MG TABS 9226481 DIPHENHYDRAMINE HCL Inactive FLONASE ALLERGY RELIEF 50 MCG/ACT NASAL SUSP One spray each nostril daily for allergies FLONASE ALLERGY RELIEF 50 MCG/ACT NASAL SUSP 8554853 FLUTICASONE PROPIONATE Inactive MIRALAX ORAL PACK Takes daily prn MIRALAX ORAL PACK 691721 POLYETHYLENE GLYCOL 3350 Inactive AUGMENTIN 875-125 MG TAB 1 po BID x 7 days AUGMENTIN 875-125 MG TAB 473812 AMOXICILLIN-POT CLAVULANATE Inactive HYDROCHLOROTHIAZIDE 12.5 MG CAPS 1 pill by mouth daily, for blood pressure HYDROCHLOROTHIAZIDE 12.5 MG CAPS 788281 HYDROCHLOROTHIAZIDE Inactive AMOXICILLIN 500 MG CAP 1 tab by mouth 3 times daily AMOXICILLIN 500 MG CAP 736301 AMOXICILLIN Inactive BACTRIM DS 800-160 MG TABS 1 pill by mouth twice daily, for UTI BACTRIM DS 800-160 MG TABS 541580 SULFAMETHOXAZOLE-TRIMETHOPRIM Inactive Advance Directives Directive Description Start [...] Panel - Chemistry sodium, serum 130 mmol/L 673-645 5857/10/19 potassium, serum 3.5 mmol/L 3.5-5.2 chloride, serum 92 mmol/L 98-107 carbon dioxide, venous blood 33.6 mmol/L 21.0-32.0 blood glucose 118 mg/dL 65-110 calcium, serum 8.8 mg/dL 8.5-10.1 urea nitrogen, blood 11 mg/dL 7-18 creatinine, serum 1.12 mg/dL 0.55-1.30 Lab Report: CBC-QUEST, COMPREHENSIVE METABOLIC PANEL, LIPID PANEL, Micro ... - Chemistry cholesterol, serum 162 mg/dL 700-337 0406/05/01 HDL cholesterol, serum 68 mg/dL > OR=46 [...] % 11.0-15.0 platelet count 297 THOUSAND/UL 10*3/mm3 663-163 2962/05/01 mean platelet volume 8.9 fL 7.5-12.5 Lab [...] Negative Encounters Code Encounter Date Provider Facility CPT-08788 Level 3 Est. Patient 13:55:49 CDT Jalil Hayes MD [facility] CPT-79200 Level 3 Est. Patient 14:38:15 CDT Jalil Hayes MD [facility] CPT-19019 Level 4 Est. Patient 14:40:54 CDT Bee Rosas APRN [facility] CPT-36222 Level 4 Est. Patient 10:31:15 CDT Jalil Hayes MD [facility] CPT-55663 Level 4 Est. Patient 15:07:54 CDT Mariaa Whitman [facility] CPT-34856 Level 3 Est. Patient 20:45:54 PRODUCT EXAMINER Mariaa Whitman [facility] CPT-02180 Level 3 Est. Patient 12:16:16 CDT Ana Cristina Vallejo MD [facility] CPT-27700 Level 4 Est. Patient 12:49:21 CDT Ana Cristina Vallejo MD [facility] CPT-17567 Level 4 Est. Patient 23:02:25 CDT Ana Cristina Vallejo MD [facility] CPT-37562 Level 4 Est. Patient 19:26:33 PRODUCT EXAMINER Ana Cristina Vallejo MD [facility] CPT-83310 Level 4 Est. Patient 11:28:14 CDT Ana Cristina Vallejo MD [facility] CPT-98594 Level 4 Est. Patient 15:35:46 PRODUCT EXAMINER Ana Cristina Vallejo MD [facility] CPT-11892 Level 3 Est. Patient 21:06:39 PRODUCT EXAMINER Alden Kim MD [facility] CPT-67660 Level 4 Est. Patient 15:30:54 PRODUCT EXAMINER Ana Cristina Vallejo MD [facility] Procedures Code Procedure Name Date Entry Date Standard Description CPT-TCMM Transitional Care Mgmt-Moderate 14:41:55 CDT CPT-31802 EKG Trac and Interp - XRAY USE ONLY 10:35:11 CDT 09/11 CPT-80783 Chest 2V Frontal and Lat - XRAY USE ONLY 10:35:11 CDT CPT-G0438 Initial Annual Wellness Exam 14:54:07 CDT CPT-G0009 Administration of Pneumococcal Vaccine 14:44:24 CDT CPT-03368 Pneumovax 23 Injection Injectable 25 MCG/0.5ML 14:44:24 CDT CPT-88933 First Vx - Ix admin for Medicare patients 14:44:24 CDT CPT-28154 Fluzone High-Dose Intramuscular Suspension 14:44:20 CDT CPT-45087 BMP - LAB USE ONLY 12:38:06 CDT CPT-81483 Urine Culture - LAB USE ONLY 16:56:33 CDT CPT-TCMM Transitional Care Mgmt-Moderate 18:08:16 CDT CPT-42543 Bone Density 09:14:12 CDT CPT-000 Give Appropriate Flu Vaccine 14:51:52 CDT CPT-30526 Fluzone High Dose (>=65 yrs.) 15:19:23 CDT CPT-10665 Immunization Single Admin 15:19:23 CDT CPT-29810 Prevnar 13 15:40:03 CDT CPT-22598 Administration single or combination vaccine inc oral 15 :40:03 CDT CPT-69926 Prevnar 13 13:55:07 CDT CPT-G0008 Administration of Influenza Virus Vaccine 10:49:51 CDT CPT-30137 Fluzone High-Dose Intramuscular Suspension 10:49:51 CDT CPT-48357 Knee 3V 13:31:37 CDT CPT-98815 Bone Density 09:07:05 PRODUCT EXAMINER CPT-76450 Nail Avulsion 09:46:05 CDT CPT-16379 Administration single or combination vaccine inc oral 16 :11:54 CDT CPT-44447 Influenza High Dose age 65+ 16:11:54 CDT CPT-25886 Administration single or combination vaccine inc oral 10 :53:15 CDT CPT-77261 Influenza High Dose age 65+ 10:53:15 CDT CPT-77178 Bone Density 14:50:58 PRODUCT EXAMINER CPT-76202 Administration single or combination vaccine inc oral 15 :41:20 PRODUCT EXAMINER CPT-67997 Zoster Vaccine (Zostavax) 15:41:20 PRODUCT EXAMINER CPT-12250 Spec Collection and Handling Fee 11:18:25 PRODUCT EXAMINER CPT-80331 Administration single or combination vaccine inc oral 11 :14:20 CDT CPT-56602 Influenza High Dose age 65+ 11:14:20 CDT
--- OUTSIDE RECORDS SUMMARY | 2017-07-18 08:55 | XMS REPORT | Clinical Summary ---
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 Conditions or Problems Problem Name Problem [...] and collapse Diastolic dysfunction 429.9 Active Jalil Hyaes MD Heart disease, unspecified Pulmonary hypertension 416.8 [...] 1 daily, for vitamin D deficiency CHOLECALCIFEROL 99069647006 No Longer Active Radha Jones APRN Active CIPRO 250 MG ORAL TABLET 1 tab BID for 7 days CIPROFLOXACIN HCL 24297266115 No Longer Active Radha Jones APRN Active VITAMIN D3 2000 UNIT ORAL CAPSULE 1 capsule po daily CHOLECALCIFEROL 50421554277 Active Anetajeannie Bailey LPN Active EQL ONE DAILY WOMENS ORAL TABLET 1 po daily MULTIPLE VITAMINS- CALCIUM 49493512690 Active Aneta Bailey AUTOMATIC QUILLING MACHINE OPERATOR Active MACROBID 100 MG ORAL CAPSULE 1 tab BID for 5 days NITROFURANTOIN MONOHYD MACRO 76007553617 No Longer Active Deepti Junior LPN Active HYDROCHLOROTHIAZIDE 12.5 MG ORAL CAPSULE 1 pill by mouth daily HYDROCHLOROTHIAZIDE 21262213489 Active Jalil Hayes MD Active RANITIDINE HCL 150 MG ORAL CAPSULE once nightly RANITIDINE HCL 08242104456 Active Jalil Hayes MD Active BENAZEPRIL HCL 40 MG ORAL TABLET 1 daily for blood pressure BENAZEPRIL HCL 86186515912 Active Jalil Hayes MD Active HYDROCHLOROTHIAZIDE 12.5 MG ORAL CAPSULE 1 pill by mouth daily, for blood pressure HYDROCHLOROTHIAZIDE 23937620481 No Longer Active Jalil Hayes MD Active AUGMENTIN 875-125 MG ORAL TABLET 1 po BID x 7 days AMOXICILLIN-POT CLAVULANATE 02000672599 No Longer Active Jalil Hayes MD Active OMEPRAZOLE 40 MG ORAL CAPSULE DELAYED RELEASE 1 po q a.m. OMEPRAZOLE 86817541438 Active HEDY Esquivel Active MIRALAX ORAL PACKET Takes daily prn POLYETHYLENE GLYCOL 3350 23168554945 No Longer Active Peggy Pardo LPN Active FLONASE ALLERGY RELIEF 50 MCG/ACT NASAL SUSPENSION One spray each nostril daily for allergies FLUTICASONE PROPIONATE 18237617863 No Longer Active Peggy Pardo LPN Active BENADRYL ALLERGY 25 MG ORAL TABLET NEEDED DIPHENHYDRAMINE HCL 52018641572 No Longer Active Peggy Pardo LPN Active ADVIL 200 MG ORAL TABLET TAKE NEEDED IBUPROFEN 36289165535 No Longer Active Peggy Pardo LPN Active COLACE 100 MG ORAL CAPSULE 1 po BID PRN Constipation DOCUSATE SODIUM 19520415029 No Longer Active Deepti Junior AUTOMATIC QUILLING MACHINE OPERATOR Active ALPRAZOLAM 0.25 MG ORAL TABLET 1/2-1 tablet by mouth twice a day as needed for stress ALPRAZOLAM 20596521610 No Longer Active Deepti Junior YULIET Active ALENDRONATE SODIUM 70 MG ORAL TABLET 1 pill by mouth weekly for osteoporosis ALENDRONATE SODIUM 86945652606 Active Mariaadomenico Whitman APRN Active E-1000 1000 UNIT ORAL CAPSULE Take one by mouth daily VITAMIN E 45597987434 Active Aneta Bailey LPN Active OSCAL 500/200 D-3 500-200 MG-UNIT ORAL TABLET Take one by mouth 3 times daily , morning, afternoon and evening.] CALCIUM CARBONATE-VITAMIN D 87386549041 Active Aneta Bailey LPN Active ASPIRIN 81 MG ORAL TABLET CHEWABLE 1 tablet by mouth daily ASPIRIN 55318736568 Active Aneta Bailey LPN Active ADULT ASPIRIN EC LOW STRENGTH 81 MG ORAL TABLET DELAYED RELEASE TAKE 1 TAB DAILY ASPIRIN 29795309546 No Longer Active Mariaa Laudee LUGO Active ALENDRONATE SODIUM 70 MG ORAL TABLET TAKE 1 TAB ONCE A WEEK 01/20 ALENDRONATE SODIUM 97776631875 No Longer Active Mariaa Laudee LUGO Active CETIRIZINE HCL 10 MG ORAL TABLET 1 po qd PRN Allergies CETIRIZINE HCL 15696812407 Active HEDY Esquivel Active BACTRIM DS 800-160 MG ORAL TABLET 1 pill by mouth twice daily, for UTI 01/29 SULFAMETHOXAZOLE-TRIMETHOPRIM 91054912681 No Longer Active Ana Cristina Vallejo MD PhD Active CARVEDILOL 25 MG ORAL TABLET 1 pill by mouth twice daily for blood pressure CARVEDILOL 22070752360 Active Aneta Bailey LPN Active SYNTHROID 88 MCG ORAL TABLET 1 tablet by mouth daily for thyroid LEVOTHYROXINE SODIUM 44284854600 Active HEDY Esquivel Active AMOXICILLIN 500 MG ORAL CAPSULE 1 tab by mouth 3 times daily 2011 AMOXICILLIN 59990570946 No Longer Active Alden Kim MD Active CALCIUM 500 MG ORAL TABLET TAKE 3 TABS DAILY CALCIUM 29101914538 No Longer Active Mariaa Whitman [place] Active MULTIVITAMINS TABS TAKE 1 TAB DAILY MULTIPLE VITAMIN No Longer Active Aneta Tavarezum AUTOMATIC QUILLING MACHINE OPERATOR Active TYLENOL 325 MG ORAL TABLET NEEDED ACETAMINOPHEN 20705413530 Active Aneta Tavarezum AUTOMATIC QUILLING MACHINE OPERATOR Active GLUCOSAMINE-CHONDROITIN 500-400 MG ORAL TABLET TAKE 1 TAB DAILY GLUCOSAMINE-CHONDROITIN 41720697886 Active Aneta Tavarezum AUTOMATIC QUILLING MACHINE OPERATOR Active NORVASC 10 MG ORAL TABLET TAKE 1 TAB DAILY AMLODIPINE BESYLATE 91868782100 Active Aneta Tavarezum AUTOMATIC QUILLING MACHINE OPERATOR Active LOVASTATIN 20 MG ORAL TABLET 1 PO Q HS FOR CHOLESTEROL LOVASTATIN 00670778396 Active HEDY Esquivel Active ALENDRONATE SODIUM 70 MG ORAL TABLET TAKE 1 TAB ONCE A WEEK 01/20 ALENDRONATE SODIUM 70 MG ORAL TABLET 764760 ALENDRONATE SODIUM Inactive ADULT ASPIRIN EC LOW STRENGTH 81 MG ORAL TABLET DELAYED RELEASE TAKE 1 TAB DAILY ADULT ASPIRIN EC LOW STRENGTH 81 MG ORAL TABLET DELAYED RELEASE 709878 ASPIRIN Inactive ALPRAZOLAM 0.25 MG ORAL TABLET 1/2-1 tablet by mouth twice a day as needed for stress ALPRAZOLAM 0.25 MG ORAL TABLET 574182 ALPRAZOLAM Inactive COLACE 100 MG ORAL CAPSULE 1 po BID PRN Constipation COLACE 100 MG ORAL CAPSULE 5361009 DOCUSATE SODIUM Inactive ADVIL 200 MG ORAL TABLET TAKE NEEDED ADVIL 200 MG ORAL TABLET 423595 IBUPROFEN Inactive BENADRYL ALLERGY 25 MG ORAL TABLET NEEDED BENADRYL ALLERGY 25 MG ORAL TABLET 8402842 DIPHENHYDRAMINE HCL Inactive FLONASE ALLERGY RELIEF 50 MCG/ACT NASAL SUSPENSION One spray each nostril daily for allergies FLONASE ALLERGY RELIEF 50 MCG/ACT NASAL SUSPENSION 7919993 FLUTICASONE PROPIONATE Inactive MIRALAX ORAL PACKET Takes daily prn MIRALAX ORAL PACKET 039527 POLYETHYLENE GLYCOL 3350 Inactive AUGMENTIN 875-125 MG ORAL TABLET 1 po BID x 7 days AUGMENTIN 875-125 MG ORAL TABLET 418708 AMOXICILLIN-POT CLAVULANATE Inactive HYDROCHLOROTHIAZIDE 12.5 MG ORAL CAPSULE 1 pill by mouth daily, for blood pressure HYDROCHLOROTHIAZIDE 12.5 MG ORAL CAPSULE HYDROCHLOROTHIAZIDE Inactive CIPRO 250 MG ORAL TABLET 1 tab BID for 7 days CIPRO 250 MG ORAL TABLET 103903 CIPROFLOXACIN HCL Inactive VITAMIN D3 2000 UNIT ORAL TABLET 1 daily, for vitamin D deficiency VITAMIN D3 2000 UNIT ORAL TABLET CHOLECALCIFEROL Inactive AMOXICILLIN 500 MG ORAL CAPSULE 1 tab by mouth 3 times daily 2011 AMOXICILLIN 500 MG ORAL CAPSULE 230338 AMOXICILLIN Inactive BACTRIM DS 800-160 MG ORAL TABLET 1 pill by mouth twice daily, for UTI 01/29 BACTRIM DS 800-160 MG ORAL TABLET 483833 SULFAMETHOXAZOLE- TRIMETHOPRIM Inactive MACROBID 100 MG ORAL CAPSULE 1 tab BID for 5 days MACROBID 100 MG ORAL CAPSULE 1292135 NITROFURANTOIN MONOHYD MACRO Inactive Advance Directives Directive [...] Panel - Chemistry sodium, serum 132 mmol/L 804-242 1527/08/09 potassium, serum 4.2 mmol/L 3.5-5.2 chloride, serum 99 mmol/L 98-107 carbon dioxide, venous blood 24.7 mmol/L 21.0-32.0 blood glucose 119 mg/dL 65-110 calcium, serum 8.5 mg/dL 8.5-10.1 urea nitrogen, blood 14 mg/dL 7-18 creatinine, serum 1.16 mg/dL 0.60-1.30 Lab Report: CBC-QUEST, COMPREHENSIVE METABOLIC PANEL, LIPID PANEL, Micro ... - Chemistry cholesterol, serum 162 mg/dL 625-021 1137/05/01 HDL cholesterol, serum 68 mg/dL > OR=46 [...] % 11.0-15.0 platelet count 297 THOUSAND/UL 10*3/mm3 692-030 2271/05/01 mean platelet volume 8.9 fL 7.5-12.5 Lab [...] 5.0-8.5 Encounters Code Encounter Date Provider Facility [facility]-76706 Level 3 Est. Patient 13:55:49 CDT Jalil Hayes MD [facility]73546 Level 3 Est. Patient 14:38:15 CDT Jalil Hayes MD [facility] Level 4 Est. Patient 14:40:54 CDT Bee Rosas [facility]-[address]46 Level 4 Est. Patient 10:31:15 CDT Jalil Hayes MD [facility]56570 Level 4 Est. Patient 15:07:54 CDT Mariaa Whitman [facility]84664 Level 3 Est. 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 Patient 12:16:16 CDT Ana Cristina Vallejo MD [facility] Level 4 Est. Patient 12:49:21 CDT Ana Cristina Vallejo MD [facility]52564 Level 4 Est. Patient 23:02:25 CDT Ana Cristina Vallejo MD [facility]61844 Level 4 Est. Patient 19:26:33 RAW FINISH MILL OPERATOR Ana Cristina Vallejo MD PhD [facility] CPT-44093 Level 4 Est. Patient 11:28:14 CDT Ana Cristina Vallejo MD PhD [facility] CPT-05714 Level 4 Est. Patient 15:35:46 RAW FINISH MILL OPERATOR Ana Cristina Vallejo MD PhD [facility] CPT-66777 Level 3 Est. Patient 21:06:39 RAW FINISH MILL OPERATOR Alden Kim MD [facility] CPT-11228 Level 4 Est. Patient 15:30:54 RAW FINISH MILL OPERATOR Ana Cristina Vallejo MD PhD [facility] Procedures Code Procedure Name Date Entry Date Standard Description CPT-G0439 Subsequent Annual Wellness Exam 11:53:01 RAW FINISH MILL OPERATOR CPT-23976 First Vx - Ix admin for Medicare patients 13:35:01 CDT CPT-02509 Fluzone High-Dose Intramuscular Suspension 13:35:01 CDT CPT-TCMM Transitional Care Mgmt-Moderate 14:41:55 CDT CPT-27759 EKG Trac and Interp - XRAY USE ONLY 10:35:11 CDT 09/11 CPT-56750 Chest 2V Frontal and Lat - XRAY USE ONLY 10:35:11 CDT CPT-G0438 Initial Annual Wellness Exam 14:54:07 CDT CPT-G0009 Administration of Pneumococcal Vaccine 14:44:24 CDT CPT-43977 Pneumovax 23 Injection Injectable 25 MCG/0.5ML 14:44:24 CDT CPT-74500 First Vx - Ix admin for Medicare patients 14:44:24 CDT CPT-93094 Fluzone High-Dose Intramuscular Suspension 14:44:20 CDT CPT-34663 BMP - LAB USE ONLY 12:38:06 CDT CPT-36184 Urine Culture - LAB USE ONLY 16:56:33 CDT CPT-TCMM Transitional Care Mgmt-Moderate 18:08:16 CDT CPT-06223 Bone Density 09:14:12 CDT CPT-000 Give Appropriate Flu Vaccine 14:51:52 CDT CPT-92135 Fluzone High Dose (>=65 yrs.) 15:19:23 CDT CPT-85433 Immunization Single Admin 15:19:23 CDT CPT-87314 Prevnar 13 15:40:03 CDT CPT-00643 Administration single or combination vaccine inc oral 15 :40:03 CDT CPT-15856 Prevnar 13 13:55:07 CDT CPT-G0008 Administration of Influenza Virus Vaccine 10:49:51 CDT CPT-49046 Fluzone High-Dose Intramuscular Suspension 10:49:51 CDT CPT-32169 Knee 3V 13:31:37 CDT CPT-77398 Bone Density 09:07:05 RAW FINISH MILL OPERATOR CPT-46797 Nail Avulsion 09:46:05 CDT CPT-86845 Administration single or combination vaccine inc oral 16 :11:54 CDT CPT-74716 Influenza High Dose age 65+ 16:11:54 CDT CPT-38101 Administration single or combination vaccine inc oral 10 :53:15 CDT CPT-08285 Influenza High Dose age 65+ 10:53:15 CDT CPT-91692 Bone Density 14:50:58 RAW FINISH MILL OPERATOR CPT-19792 Administration single or combination vaccine inc oral 15 :41:20 RAW FINISH MILL OPERATOR CPT-20819 Zoster Vaccine (Zostavax) 15:41:20 RAW FINISH MILL OPERATOR CPT-57384 Spec Collection and Handling Fee 11:18:25 RAW FINISH MILL OPERATOR CPT-43840 Administration single or combination vaccine inc oral 11 :14:20 CDT CPT-73314 Influenza High Dose age 65+ 11:14:20 CDT
--- OUTSIDE RECORDS SUMMARY | 2017-07-18 08:55 | XMS REPORT | Clinical Summary ---
Author Author Admin, DANDRE Organization [facility] Address Unknown Phone Unavailable Allergies, Adverse Reactions, Alerts Allergy Name Reaction Description Start Date Severity Status Provider NKDA Critical Active Mariaa Whitman SENIOR GIS ANALYST Conditions or Problems Problem Name Problem Code Onset Date Status Entry Date Provider Comment Standard Description Annotate ROUTINE GYNECOLOGICAL EXAMINATION V72.31 Resolved Ana Cristina Vallejo MD PhD Routine gynecological examination MENOPAUSE 627.2 Ruled out Ana Cristina Vallejo MD PhD Symptomatic menopausal or female climacteric states MENOPAUSE 627.2 Active Brianda Reis [facility] Symptomatic menopausal or female climacteric states [...] MD Dysuria Forgetfulness 780.99 Active Radha Jones SENIOR GIS ANALYST Other general symptoms Unsteady gait 781.2 Active [...] daily for blood pressure and swelling FUROSEMIDE 50405204939 Active Jalil Hayes MD Active HYDROCHLOROTHIAZIDE 12.5 MG ORAL CAPSULE 1 pill by mouth daily HYDROCHLOROTHIAZIDE 85326329086 No Longer Active Jalil Hayes MD Active PREDNISONE 10 MG ORAL TABLET 2 daily for 5 days then 1 daily for 5 days 05/25 PREDNISONE 00106332115 No Longer Active Jalil Hayes MD Active VITAMIN D3 2000 UNIT ORAL TABLET 1 daily, for vitamin D deficiency CHOLECALCIFEROL 32430833140 No Longer Active Radha Jones APRN Active CIPRO 250 MG ORAL TABLET 1 tab BID for 7 days CIPROFLOXACIN HCL 75082103278 No Longer Active Radha Jones APRN Active VITAMIN D3 2000 UNIT ORAL CAPSULE 1 capsule po daily CHOLECALCIFEROL 05885562150 Active Aneta Bailey LPN Active EQL ONE DAILY WOMENS ORAL TABLET 1 po daily MULTIPLE VITAMINS- CALCIUM 94857793809 Active Aneta Tavarezum [facility] RN Active MACROBID 100 MG ORAL CAPSULE 1 tab BID for 5 days NITROFURANTOIN MONOHYD MACRO 23937882278 No Longer Active Deepti Madl [facility] ICU RN Active RANITIDINE HCL 150 MG ORAL CAPSULE once nightly RANITIDINE HCL 91746768131 Active Aneta Tavarezum [facility] ICU RN Active BENAZEPRIL HCL 40 MG ORAL TABLET 1 daily for blood pressure BENAZEPRIL HCL 67831379521 Active Jalil Hayes MD Active HYDROCHLOROTHIAZIDE 12.5 MG ORAL CAPSULE 1 pill by mouth daily, for blood pressure HYDROCHLOROTHIAZIDE 43898148425 No Longer Active Jalil Hayes MD Active AUGMENTIN 875-125 MG ORAL TABLET 1 po BID x 7 days AMOXICILLIN-POT CLAVULANATE 34636763292 No Longer Active Jalil Hayes MD Active OMEPRAZOLE 40 MG ORAL CAPSULE DELAYED RELEASE 1 po q a.m. OMEPRAZOLE 32210793739 Active HEDY Esquivel Active MIRALAX ORAL PACKET Takes daily prn POLYETHYLENE GLYCOL 3350 49765780852 No Longer Active Peggy Pardo LPN Active FLONASE ALLERGY RELIEF 50 MCG/ACT NASAL SUSPENSION One spray each nostril daily for allergies FLUTICASONE PROPIONATE 13657639487 No Longer Active Peggy Pardo LPN Active BENADRYL ALLERGY 25 MG ORAL TABLET NEEDED DIPHENHYDRAMINE HCL 52409436215 No Longer Active Peggy Pardo LPN Active ADVIL 200 MG ORAL TABLET TAKE NEEDED IBUPROFEN 71983576897 No Longer Active Peggy Pardo LPN Active COLACE 100 MG ORAL CAPSULE 1 po BID PRN Constipation DOCUSATE SODIUM 45838942168 No Longer Active Deepti Junior LPN Active ALPRAZOLAM 0.25 MG ORAL TABLET 1/2-1 tablet by mouth twice a day as needed for stress ALPRAZOLAM 52080853879 No Longer Active Deepti Junior LPN Active ALENDRONATE SODIUM 70 MG ORAL TABLET 1 pill by mouth weekly for osteoporosis ALENDRONATE SODIUM 86023609667 Active Aneta Bailey LPN Active E-1000 1000 UNIT ORAL CAPSULE Take one by mouth daily VITAMIN E 28168875132 Active Aneta Bailey LPN Active OSCAL 500/200 D-3 500-200 MG-UNIT ORAL TABLET Take one by mouth 3 times daily , morning, afternoon and evening.] CALCIUM CARBONATE-VITAMIN D 21674524032 Active Aneta Bailey LPN Active ASPIRIN 81 MG ORAL TABLET CHEWABLE 1 tablet by mouth daily ASPIRIN 39950892251 Active Aneta Bailey LPN Active ADULT ASPIRIN EC LOW STRENGTH 81 MG ORAL TABLET DELAYED RELEASE TAKE 1 TAB DAILY ASPIRIN 98975148244 No Longer Active Mariaa Whitman APRN Active ALENDRONATE SODIUM 70 MG ORAL TABLET TAKE 1 TAB ONCE A WEEK 01/20 ALENDRONATE SODIUM 07234463354 No Longer Active Mariaa Whitman APRN Active CETIRIZINE HCL 10 MG ORAL TABLET 1 po qd PRN Allergies CETIRIZINE HCL 95264994418 Active HEDY Esquivel Active BACTRIM DS 800-160 MG ORAL TABLET 1 pill by mouth twice daily, for UTI 01/29 SULFAMETHOXAZOLE-TRIMETHOPRIM 05780545655 No Longer Active Ana Cristina Vallejo MD PhD Active CARVEDILOL 25 MG ORAL TABLET 1 pill by mouth twice daily for blood pressure CARVEDILOL 31583484476 Active Aneta Tavarezum YULIET Active SYNTHROID 88 MCG ORAL TABLET 1 tablet by mouth daily for thyroid LEVOTHYROXINE SODIUM 44068730809 Active HEDY Esquivel Active AMOXICILLIN 500 MG ORAL CAPSULE 1 tab by mouth 3 times daily 2011 AMOXICILLIN 98680381211 No Longer Active Alden Kim MD Active CALCIUM 500 MG ORAL TABLET TAKE 3 TABS DAILY CALCIUM 45576526265 No Longer Active Mariaa Whitman APRN Active MULTIVITAMINS TABS TAKE 1 TAB DAILY MULTIPLE VITAMIN No Longer Active Aneta Tavarezum [facility]AC[facility] ICU RN Active TYLENOL 325 MG ORAL TABLET NEEDED ACETAMINOPHEN 48142059882 Active Aneta Tavarezum [facility] ICU RN Active GLUCOSAMINE-CHONDROITIN 500-400 MG ORAL TABLET TAKE 1 TAB DAILY GLUCOSAMINE-CHONDROITIN 75728271659 Active Aneta Bailey LPN Active NORVASC 10 MG ORAL TABLET TAKE 1 TAB DAILY AMLODIPINE BESYLATE 02464080439 Active Aneta Tavarezum [facility]AC[facility] ICU RN Active LOVASTATIN 20 MG ORAL TABLET 1 PO Q HS FOR CHOLESTEROL LOVASTATIN 14881469892 Active HEDY Esquivel Active ALENDRONATE SODIUM 70 MG ORAL TABLET TAKE 1 TAB ONCE A WEEK 01/20 ALENDRONATE SODIUM 70 MG ORAL TABLET 368224 ALENDRONATE SODIUM Inactive ADULT ASPIRIN EC LOW STRENGTH 81 MG ORAL TABLET DELAYED RELEASE TAKE 1 TAB DAILY ADULT ASPIRIN EC LOW STRENGTH 81 MG ORAL TABLET DELAYED RELEASE 514479 ASPIRIN Inactive ALPRAZOLAM 0.25 MG ORAL TABLET 1/2-1 tablet by mouth twice a day as needed for stress ALPRAZOLAM 0.25 MG ORAL TABLET 191420 ALPRAZOLAM Inactive COLACE 100 MG ORAL CAPSULE 1 po BID PRN Constipation COLACE 100 MG ORAL CAPSULE 9527038 DOCUSATE SODIUM Inactive ADVIL 200 MG ORAL TABLET TAKE NEEDED ADVIL 200 MG ORAL TABLET 665190 IBUPROFEN Inactive BENADRYL ALLERGY 25 MG ORAL TABLET NEEDED BENADRYL ALLERGY 25 MG ORAL TABLET 9933362 DIPHENHYDRAMINE HCL Inactive FLONASE ALLERGY RELIEF 50 MCG/ACT NASAL SUSPENSION One spray each nostril daily for allergies FLONASE ALLERGY RELIEF 50 MCG/ACT NASAL SUSPENSION 3859301 FLUTICASONE PROPIONATE Inactive MIRALAX ORAL PACKET Takes daily prn MIRALAX ORAL PACKET 523607 POLYETHYLENE GLYCOL 3350 Inactive AUGMENTIN 875-125 MG ORAL TABLET 1 po BID x 7 days AUGMENTIN 875-125 MG ORAL TABLET 791970 AMOXICILLIN-POT CLAVULANATE Inactive HYDROCHLOROTHIAZIDE 12.5 MG ORAL CAPSULE 1 pill by mouth daily, for blood pressure HYDROCHLOROTHIAZIDE 12.5 MG ORAL CAPSULE HYDROCHLOROTHIAZIDE Inactive CIPRO 250 MG ORAL TABLET 1 tab BID for 7 days CIPRO 250 MG ORAL TABLET 626863 CIPROFLOXACIN HCL Inactive VITAMIN D3 2000 UNIT ORAL TABLET 1 daily, for vitamin D deficiency VITAMIN D3 2000 UNIT ORAL TABLET CHOLECALCIFEROL Inactive PREDNISONE 10 MG ORAL TABLET 2 daily for 5 days then 1 daily for 5 days 05/25 PREDNISONE 10 MG ORAL TABLET 382249 PREDNISONE Inactive HYDROCHLOROTHIAZIDE 12.5 MG ORAL CAPSULE 1 pill by mouth daily HYDROCHLOROTHIAZIDE 12.5 MG ORAL CAPSULE HYDROCHLOROTHIAZIDE Inactive AMOXICILLIN 500 MG ORAL CAPSULE 1 tab by mouth 3 times daily 2011 AMOXICILLIN 500 MG ORAL CAPSULE 569994 AMOXICILLIN Inactive BACTRIM DS 800-160 MG ORAL TABLET 1 pill by mouth twice daily, for UTI 01/29 BACTRIM DS 800-160 MG ORAL TABLET 479939 SULFAMETHOXAZOLE- TRIMETHOPRIM Inactive MACROBID 100 MG ORAL CAPSULE 1 tab BID for 5 days MACROBID 100 MG ORAL CAPSULE 2343998 NITROFURANTOIN MONOHYD MACRO Inactive Advance Directives Directive [...] Panel - Chemistry sodium, serum 132 mmol/L 225-766 5966/08/09 potassium, serum 4.2 mmol/L 3.5-5.2 chloride, serum 99 mmol/L 98-107 carbon dioxide, venous blood 24.7 mmol/L 21.0-32.0 blood glucose 119 mg/dL 65-110 calcium, serum 8.5 mg/dL 8.5-10.1 urea nitrogen, blood 14 mg/dL 7-18 creatinine, serum 1.16 mg/dL 0.60-1.30 Lab Report: CBC-QUEST, COMPREHENSIVE METABOLIC PANEL, LIPID PANEL, Micro ... - Chemistry cholesterol, serum 162 mg/dL 987-859 4219/05/01 HDL cholesterol, serum 68 mg/dL > OR=46 [...] % 11.0-15.0 platelet count 297 THOUSAND/UL 10*3/mm3 219-001 7935/05/01 mean platelet volume 8.9 fL 7.5-12.5 Lab Report: CBC-QUEST, COMPREHENSIVE METABOLIC PANEL, LIPID PANEL, Micro ... - Urinalysis microalbumin/total urine volume <0.2 mg/dL mg/L microalbumin/creatinine ratio, urine NOTE mcg/mg creat mg/L <30 Lab Report: Erythrocyte Sed Rate, Thyroid Stimulating Hormone (L), Basic ... - Chemistry TSH 1.13 m[iU]/mL 0.36-3.74 sodium, serum 139 mmol/L 529-102 4402/01/10 potassium, serum 3.8 mmol/L 3.5-5.2 chloride, serum [...] 5.0-8.5 Encounters Code Encounter Date Provider Facility CPT-43389 Level 4 Est. Patient 11:50:58 PASTE UP COPY CAMERA OPERATOR Jalil Hayes MD [facility] CPT-13871 Level 4 Est. Patient 12:35:27 PASTE UP COPY CAMERA OPERATOR Jalil Hayes MD [facility] CPT-06059 Level 3 Est. Patient 13:55:49 CDT Jalil Hayes MD [facility] CPT-86416 Level 3 Est. Patient 14:38:15 CDT Jalil Hayes MD [facility]-74675 Level 4 Est. Patient 14:40:54 CDT Bee Rosas [facility] CPT-77127 Level 4 Est. Patient 10:31:15 CDT Jalil Hayes MD [facility]-60795 Level 4 Est. Patient 15:07:54 CDT Mariaa Whitman [facility] CPT-62013 Level 3 Est. Patient 20:45:54 PASTE UP COPY CAMERA OPERATOR [facility] CPT-71760 Level 3 Est. Patient 12:16:16 CDT Ana Cristina Vallejo MD PhD [facility]-66676 Level 4 Est. Patient 12:49:21 CDT Ana Cristina Vallejo MD [facility] CPT-79889 Level 4 Est. Patient 23:02:25 CDT Ana Cristina Vallejo MD [facility] CPT-63605 Level 4 Est. Patient 19:26:33 PASTE UP COPY CAMERA OPERATOR Ana Cristina Vallejo MD [facility] CPT-55739 Level 4 Est. Patient 11:28:14 CDT Ana Cristina Vallejo MD [facility] CPT-70963 Level 4 Est. Patient 15:35:46 PASTE UP COPY CAMERA OPERATOR Ana Cristina Vallejo MD [facility] CPT-21572 Level 3 Est. Patient 21:06:39 PASTE UP COPY CAMERA OPERATOR Alden Kim MD [facility] CPT-20497 Level 4 Est. Patient 15:30:54 PASTE UP COPY CAMERA OPERATOR Ana Cristina Vallejo MD PhD [facility] Procedures Code Procedure Name Date Entry Date Standard Description CPT-G0439 [facility] Annual Wellness Exam 11:53:01 PASTE UP COPY CAMERA OPERATOR CPT-27692 First Vx - Ix admin for Medicare patients 13:35:01 CDT CPT-59698 Fluzone High-Dose Intramuscular Suspension 13:35:01 CDT CPT-TCMM Transitional Care Mgmt-Moderate 14:41:55 CDT CPT-65138 EKG Trac and Interp - XRAY USE ONLY 10:35:11 CDT 09/11 CPT-19756 Chest 2V Frontal and Lat - XRAY USE ONLY 10:35:11 CDT CPT-G0438 Initial Annual Wellness Exam 14:54:07 CDT CPT-G0009 Administration of Pneumococcal Vaccine 14:44:24 CDT CPT-37930 Pneumovax 23 Injection Injectable 25 MCG/0.5ML 14:44:24 CDT CPT-09293 First Vx - Ix admin for Medicare patients 14:44:24 CDT CPT-55748 Fluzone High-Dose Intramuscular Suspension 14:44:20 CDT CPT-24864 BMP - LAB USE ONLY 12:38:06 CDT CPT-12878 Urine Culture - LAB USE ONLY 16:56:33 CDT CPT-TCMM Transitional Care Mgmt-Moderate 18:08:16 CDT CPT-36431 Bone Density 09:14:12 CDT CPT-000 Give Appropriate Flu Vaccine 14:51:52 CDT CPT-59792 Fluzone High Dose (>=65 yrs.) 15:19:23 CDT CPT-17951 Immunization Single Admin 15:19:23 CDT CPT-30246 Prevnar 13 15:40:03 CDT CPT-17878 Administration single or combination vaccine inc oral 15 :40:03 CDT CPT-77302 Prevnar 13 13:55:07 CDT CPT-G0008 Administration of Influenza Virus Vaccine 10:49:51 CDT CPT-09946 Fluzone High-Dose Intramuscular Suspension 10:49:51 CDT CPT-06210 Knee 3V 13:31:37 CDT CPT-23769 Bone Density 09:07:05 PASTE UP COPY CAMERA OPERATOR CPT-31620 Nail Avulsion 09:46:05 CDT CPT-47387 Administration single or combination vaccine inc oral 16 :11:54 CDT CPT-48516 Influenza High Dose age 65+ 16:11:54 CDT CPT-79990 Administration single or combination vaccine inc oral 10 :53:15 CDT CPT-87211 Influenza High Dose age 65+ 10:53:15 CDT CPT-66355 Bone Density 14:50:58 PASTE UP COPY CAMERA OPERATOR CPT-22689 Administration single or combination vaccine inc oral 15 :41:20 PASTE UP COPY CAMERA OPERATOR CPT-51441 Zoster Vaccine (Zostavax) 15:41:20 PASTE UP COPY CAMERA OPERATOR CPT-84712 Spec Collection and Handling Fee 11:18:25 PASTE UP COPY CAMERA OPERATOR CPT-86553 Administration single or combination vaccine inc oral 11 :14:20 CDT CPT-03842 Influenza High Dose age 65+ 11:14:20 CDT
--- OUTSIDE RECORDS SUMMARY | 2017-07-18 08:56 | XMS REPORT | Clinical Summary ---
Author Author Admin, DANDRE Organization [facility] Address Unknown Phone Unavailable Allergies, Adverse Reactions, Alerts Allergy Name Reaction Description Start Date Severity Status Provider NKDA Critical Active Mariaa Whitman METAL MINE INSPECTOR Conditions or Problems Problem Name Problem Code Onset Date Status Entry Date Provider Comment Standard Description Annotate ROUTINE GYNECOLOGICAL EXAMINATION V72.31 Resolved Ana Cristina Vallejo MD PhD Routine gynecological examination MENOPAUSE 627.2 Ruled out Ana Cristina Vallejo MD PhD Symptomatic menopausal or female climacteric states MENOPAUSE 627.2 Active Brianda Reis [facility] Symptomatic menopausal or female climacteric states DIVERTICULOSIS, COLON 562.10 Active nAa Cristina Vallejo MD PhD Diverticulosis of colon [...] MD Dysuria Forgetfulness 780.99 Active Radha Jones METAL MINE INSPECTOR Other general symptoms Unsteady gait 781.2 Active [...] 1 daily, for vitamin D deficiency CHOLECALCIFEROL 93460307339 No Longer Active Radha Jones APRN Active CIPRO 250 MG ORAL TABLET 1 tab BID for 7 days CIPROFLOXACIN HCL 99000261027 No Longer Active Radha Jones APRN Active VITAMIN D3 2000 UNIT ORAL CAPSULE 1 capsule po daily CHOLECALCIFEROL 87067446138 Active Aneta Tavarezum CURING MACHINE OPERATOR Active EQL ONE DAILY WOMENS ORAL TABLET 1 po daily MULTIPLE VITAMINS- CALCIUM 17587408456 Active Aneta D Leo CURING MACHINE OPERATOR Active MACROBID 100 MG ORAL CAPSULE 1 tab BID for 5 days NITROFURANTOIN MONOHYD MACRO 84446602662 No Longer Active Deepti Junior LPN Active HYDROCHLOROTHIAZIDE 12.5 MG ORAL CAPSULE 1 pill by mouth daily HYDROCHLOROTHIAZIDE 11779941816 Active Jalil Hayes MD Active RANITIDINE HCL 150 MG ORAL CAPSULE once nightly RANITIDINE HCL 70779754327 Active Jalil Hayes MD Active BENAZEPRIL HCL 40 MG ORAL TABLET 1 daily for blood pressure BENAZEPRIL HCL 70074962240 Active Jalil Hayes MD Active HYDROCHLOROTHIAZIDE 12.5 MG ORAL CAPSULE 1 pill by mouth daily, for blood pressure HYDROCHLOROTHIAZIDE 65302983328 No Longer Active Jalil Hayes MD Active AUGMENTIN 875-125 MG ORAL TABLET 1 po BID x 7 days AMOXICILLIN-POT CLAVULANATE 69606641483 No Longer Active Jalil Hayes MD Active OMEPRAZOLE 40 MG ORAL CAPSULE DELAYED RELEASE 1 po q a.m. OMEPRAZOLE 95581783273 Active HEDY Esquivel Active MIRALAX ORAL PACKET Takes daily prn POLYETHYLENE GLYCOL 3350 25103602441 No Longer Active Peggy Pardo LPN Active FLONASE ALLERGY RELIEF 50 MCG/ACT NASAL SUSPENSION One spray each nostril daily for allergies FLUTICASONE PROPIONATE 31077340662 No Longer Active Peggy Pardo, CURING MACHINE OPERATOR Active BENADRYL ALLERGY 25 MG ORAL TABLET NEEDED DIPHENHYDRAMINE HCL 56596378322 No Longer Active Peggy Pardo, CURING MACHINE OPERATOR Active ADVIL 200 MG ORAL TABLET TAKE NEEDED IBUPROFEN 42987515274 No Longer Active Pegyg Pardo, CURING MACHINE OPERATOR Active COLACE 100 MG ORAL CAPSULE 1 po BID PRN Constipation DOCUSATE SODIUM 47220854386 No Longer Active Deepti Hamlinl CURING MACHINE OPERATOR Active ALPRAZOLAM 0.25 MG ORAL TABLET 1/2-1 tablet by mouth twice a day as needed for stress ALPRAZOLAM 72671996711 No Longer Active Deepti Junior CURING MACHINE OPERATOR Active ALENDRONATE SODIUM 70 MG ORAL TABLET 1 pill by mouth weekly for osteoporosis ALENDRONATE SODIUM 33891602832 Active Mariaadomenico Whitman APRN Active E-1000 1000 UNIT ORAL CAPSULE Take one by mouth daily VITAMIN E 17439577504 Active Aneta Bailey CURING MACHINE OPERATOR Active OSCAL 500/200 D-3 500-200 MG-UNIT ORAL TABLET Take one by mouth 3 times daily , morning, afternoon and evening.] CALCIUM CARBONATE-VITAMIN D 64828463694 Active Aneta Tavarezum CURING MACHINE OPERATOR Active ASPIRIN 81 MG ORAL TABLET CHEWABLE 1 tablet by mouth daily ASPIRIN 30939952825 Active Aneta Tavarezum CURING MACHINE OPERATOR Active ADULT ASPIRIN EC LOW STRENGTH 81 MG ORAL TABLET DELAYED RELEASE TAKE 1 TAB DAILY ASPIRIN 15921539219 No Longer Active Mariaa Antonette METAL MINE INSPECTOR Active ALENDRONATE SODIUM 70 MG ORAL TABLET TAKE 1 TAB ONCE A WEEK 01/20 ALENDRONATE SODIUM 88936575528 No Longer Active Mariaa Lauxuanum METAL MINE INSPECTOR Active CETIRIZINE HCL 10 MG ORAL TABLET 1 po qd PRN Allergies CETIRIZINE HCL 00461072081 Active HEDY Esquivel Active BACTRIM DS 800-160 MG ORAL TABLET 1 pill by mouth twice daily, for UTI 01/29 SULFAMETHOXAZOLE-TRIMETHOPRIM 59285173635 No Longer Active Ana Cristina Vallejo MD PhD Active CARVEDILOL 25 MG ORAL TABLET 1 pill by mouth twice daily for blood pressure CARVEDILOL 33938442436 Active Aneta Bailey LPN Active SYNTHROID 88 MCG ORAL TABLET 1 tablet by mouth daily for thyroid LEVOTHYROXINE SODIUM 00305725285 Active HEDY Esquivel Active AMOXICILLIN 500 MG ORAL CAPSULE 1 tab by mouth 3 times daily 2011 AMOXICILLIN 06994114529 No Longer Active Alden Kim MD Active CALCIUM 500 MG ORAL TABLET TAKE 3 TABS DAILY CALCIUM 62867719447 No Longer Active Mariaa Yokum PARISH Active MULTIVITAMINS TABS TAKE 1 TAB DAILY MULTIPLE VITAMIN No Longer Active Aneta Tavarezum YULIET Active TYLENOL 325 MG ORAL TABLET NEEDED ACETAMINOPHEN 09490822877 Active Aneta Tavarezum CURING MACHINE OPERATOR Active GLUCOSAMINE-CHONDROITIN 500-400 MG ORAL TABLET TAKE 1 TAB DAILY GLUCOSAMINE-CHONDROITIN 73899623251 Active Aneta Bailey LPN Active NORVASC 10 MG ORAL TABLET TAKE 1 TAB DAILY AMLODIPINE BESYLATE 08434209095 Active Aneta Bailey LPN Active LOVASTATIN 20 MG ORAL TABLET 1 PO Q HS FOR CHOLESTEROL LOVASTATIN 83180906566 Active HEDY Esquivel Active ALENDRONATE SODIUM 70 MG ORAL TABLET TAKE 1 TAB ONCE A WEEK 01/20 ALENDRONATE SODIUM 70 MG ORAL TABLET 568157 ALENDRONATE SODIUM Inactive ADULT ASPIRIN EC LOW STRENGTH 81 MG ORAL TABLET DELAYED RELEASE TAKE 1 TAB DAILY ADULT ASPIRIN EC LOW STRENGTH 81 MG ORAL TABLET DELAYED RELEASE 028886 ASPIRIN Inactive ALPRAZOLAM 0.25 MG ORAL TABLET 1/2-1 tablet by mouth twice a day as needed for stress ALPRAZOLAM 0.25 MG ORAL TABLET 992387 ALPRAZOLAM Inactive COLACE 100 MG ORAL CAPSULE 1 po BID PRN Constipation COLACE 100 MG ORAL CAPSULE 9645384 DOCUSATE SODIUM Inactive ADVIL 200 MG ORAL TABLET TAKE NEEDED ADVIL 200 MG ORAL TABLET 583370 IBUPROFEN Inactive BENADRYL ALLERGY 25 MG ORAL TABLET NEEDED BENADRYL ALLERGY 25 MG ORAL TABLET 2018384 DIPHENHYDRAMINE HCL Inactive FLONASE ALLERGY RELIEF 50 MCG/ACT NASAL SUSPENSION One spray each nostril daily for allergies FLONASE ALLERGY RELIEF 50 MCG/ACT NASAL SUSPENSION 4324793 FLUTICASONE PROPIONATE Inactive MIRALAX ORAL PACKET Takes daily prn MIRALAX ORAL PACKET 041912 POLYETHYLENE GLYCOL 3350 Inactive AUGMENTIN 875-125 MG ORAL TABLET 1 po BID x 7 days AUGMENTIN 875-125 MG ORAL TABLET 119584 AMOXICILLIN-POT CLAVULANATE Inactive HYDROCHLOROTHIAZIDE 12.5 MG ORAL CAPSULE 1 pill by mouth daily, for blood pressure HYDROCHLOROTHIAZIDE 12.5 MG ORAL CAPSULE 027623 HYDROCHLOROTHIAZIDE Inactive CIPRO 250 MG ORAL TABLET 1 tab BID for 7 days CIPRO 250 MG ORAL TABLET 366716 CIPROFLOXACIN HCL Inactive VITAMIN D3 2000 UNIT ORAL TABLET 1 daily, for vitamin D deficiency VITAMIN D3 2000 UNIT ORAL TABLET CHOLECALCIFEROL Inactive AMOXICILLIN 500 MG ORAL CAPSULE 1 tab by mouth 3 times daily 2011 AMOXICILLIN 500 MG ORAL CAPSULE 177687 AMOXICILLIN Inactive BACTRIM DS 800-160 MG ORAL TABLET 1 pill by mouth twice daily, for UTI 01/29 BACTRIM DS 800-160 MG ORAL TABLET 840488 SULFAMETHOXAZOLE- TRIMETHOPRIM Inactive MACROBID 100 MG ORAL CAPSULE 1 tab BID for 5 days MACROBID 100 MG ORAL CAPSULE 3926815 NITROFURANTOIN MONOHYD MACRO Inactive Advance Directives Directive [...] Panel - Chemistry sodium, serum 132 mmol/L 930-692 6620/08/09 potassium, serum 4.2 mmol/L 3.5-5.2 chloride, serum 99 mmol/L 98-107 carbon dioxide, venous blood 24.7 mmol/L 21.0-32.0 blood glucose 119 mg/dL 65-110 calcium, serum 8.5 mg/dL 8.5-10.1 urea nitrogen, blood 14 mg/dL 7-18 creatinine, serum 1.16 mg/dL 0.60-1.30 Lab Report: CBC-QUEST, COMPREHENSIVE METABOLIC PANEL, LIPID PANEL, Micro ... - Chemistry cholesterol, serum 162 mg/dL 857-465 9697/05/01 HDL cholesterol, serum 68 mg/dL > OR=46 [...] % 11.0-15.0 platelet count 297 THOUSAND/UL 10*3/mm3 583-574 4914/05/01 mean platelet volume 8.9 fL 7.5-12.5 Lab [...] 5.0-8.5 Encounters Code Encounter Date Provider Facility CPT-84078 Level 4 Est. Patient 12:35:27 PRODUCTION WEIGHER Jalil Hayes MD [facility] CPT-00885 Level 3 Est. Patient 13:55:49 CDT Jalil Hayes MD [facility] CPT-83632 Level 3 Est. Patient 14:38:15 CDT Jalil Hayes MD [facility] CPT-85985 Level 4 Est. Patient 14:40:54 CDT Bee Rosas [facility] CPT-52717 Level 4 Est. Patient 10:31:15 CDT Jalil Hayes MD [facility] CPT-91053 Level 4 Est. Patient 15:07:54 CDT Mariaa Whitman [facility] CPT-45229 Level 3 Est. Patient 20:45:54 PRODUCTION WEIGHER Mariaa Yodee [facility] CPT-20979 Level 3 Est. Patient 12:16:16 CDT Ana Cristina Vallejo MD [facility]-02992 Level 4 Est. Patient 12:49:21 CDT Ana Cristina Vallejo MD [facility]-56340 Level 4 Est. Patient 23:02:25 CDT Ana Cristina Vallejo MD [facility] CPT-26523 Level 4 Est. Patient 19:26:33 PRODUCTION WEIGHER Ana Cristina Vallejo MD [facility] CPT-26912 Level 4 Est. Patient 11:28:14 CDT Ana Cristina Vallejo MD [facility] CPT-88392 Level 4 Est. Patient 15:35:46 PRODUCTION WEIGHER Ana Cristina Vallejo MD [facility] CPT-52376 Level 3 Est. Patient 21:06:39 PRODUCTION WEIGHER Alden Kim MD [facility] CPT-45483 Level 4 Est. Patient 15:30:54 PRODUCTION WEIGHER Ana Cristina Vallejo MD PhD [facility] Procedures Code Procedure Name Date Entry Date Standard Description CPT-G0439 [facility] Annual Wellness Exam 11:53:01 PRODUCTION WEIGHER CPT-90978 First Vx - Ix admin for Medicare patients 13:35:01 CDT CPT-94632 Fluzone High-Dose Intramuscular Suspension 13:35:01 CDT CPT-TCMM Transitional Care Mgmt-Moderate 14:41:55 CDT CPT-78163 EKG Trac and Interp - XRAY USE ONLY 10:35:11 CDT 09/11 CPT-99718 Chest 2V Frontal and Lat - XRAY USE ONLY 10:35:11 CDT CPT-G0438 Initial Annual Wellness Exam 14:54:07 CDT CPT-G0009 Administration of Pneumococcal Vaccine 14:44:24 CDT CPT-75502 Pneumovax 23 Injection Injectable 25 MCG/0.5ML 14:44:24 CDT CPT-12387 First Vx - Ix admin for Medicare patients 14:44:24 CDT CPT-12053 Fluzone High-Dose Intramuscular Suspension 14:44:20 CDT CPT-74414 BMP - LAB USE ONLY 12:38:06 CDT CPT-52516 Urine Culture - LAB USE ONLY 16:56:33 CDT CPT-TCMM Transitional Care Mgmt-Moderate 18:08:16 CDT CPT-97539 Bone Density 09:14:12 CDT CPT-000 Give Appropriate Flu Vaccine 14:51:52 CDT CPT-52858 Fluzone High Dose (>=65 yrs.) 15:19:23 CDT CPT-44888 Immunization Single Admin 15:19:23 CDT CPT-79181 Prevnar 15:40:03 CDT CPT-08963 Administration single or combination vaccine inc oral 15 :40:03 CDT CPT-62547 Prevnar 13 13:55:07 CDT CPT-G0008 Administration of Influenza Virus Vaccine 10:49:51 CDT CPT-22490 Fluzone High-Dose Intramuscular Suspension 10:49:51 CDT CPT-22984 Knee 3V 13:31:37 CDT CPT-89125 Bone Density 09:07:05 PRODUCTION WEIGHER CPT-63431 Nail Avulsion 09:46:05 CDT CPT-82821 Administration single or combination vaccine inc oral 16 :11:54 CDT CPT-32829 Influenza High Dose age 65+ 16:11:54 CDT CPT-75342 Administration single or combination vaccine inc oral 10 :53:15 CDT CPT-70312 Influenza High Dose age 65+ 10:53:15 CDT CPT-71213 Bone Density 14:50:58 PRODUCTION WEIGHER CPT-26777 Administration single or combination vaccine inc oral 15 :41:20 PRODUCTION WEIGHER CPT-93731 Zoster Vaccine (Zostavax) 15:41:20 PRODUCTION WEIGHER CPT-52537 Spec Collection and Handling Fee 11:18:25 PRODUCTION WEIGHER CPT-24534 Administration single or combination vaccine inc oral 11 :14:20 CDT CPT-90605 Influenza High Dose age 65+ 11:14:20 CDT
--- OUTSIDE RECORDS SUMMARY | 2017-07-18 08:57 | XMS REPORT | Clinical Summary ---
Author Author Admin, QIE Organization [employer] Address Unknown Phone Unavailable Allergies, Adverse Reactions, [...] Unspecified essential hypertension HYPOTHYROIDISM 244.9 Active Ana Cirstina Vallejo MD PhD Unspecified hypothyroidism FH STROKE [...] each nostril daily for allergies FLUTICASONE PROPIONATE 29808766616 Active Mariaa Antonette SWARTZN Active CETIRIZINE HCL 10 MG ORAL TABS 1 po qd PRN Allergies CETIRIZINE HCL 98910667559 Active Mariaa Yokum NETWORK ACCOUNT MANAGER Active BACTRIM DS 800-160 MG TABS 1 pill by mouth twice daily, for UTI SULFAMETHOXAZOLE-TRIMETHOPRIM 37125555151 No Longer Active Ana Cristina Vallejo MD PhD Active HYDROCHLOROTHIAZIDE 12.5 MG CAPS 1 pill by mouth daily, for blood pressure HYDROCHLOROTHIAZIDE 77645544135 Active Mariaa Antonette NETWORK ACCOUNT MANAGER Active CARVEDILOL 25 MG TABS 1 pill by mouth twice daily for blood pressure CARVEDILOL 12209130077 Active Mariaa Lauxuanbeckie NETWORK ACCOUNT MANAGER Active SYNTHROID 0.088 MG TAB 1 tablet by mouth daily for thyroid LEVOTHYROXINE SODIUM 27346448346 Active Mariaa Antonette SWARTZN Active AMOXICILLIN 500 MG CAP 1 tab by mouth 3 times daily AMOXICILLIN 68585237010 No Longer Active Alden Kim MD Active [facility] VITAMIN D3 1000 UNIT CAPS TAKE 2 CAP DAILY CHOLECALCIFEROL 15478228659 Active Ana Cristina Vallejo MD PhD Active CALCIUM 500 MG TABS TAKE 3 TABS DAILY CALCIUM 06861137209 Active Aneta Tavarezum COPY MANAGER Active MULTIVITAMINS TABS TAKE 1 TAB DAILY MULTIPLE VITAMIN 67225011822 Active Aneta Tavarezum COPY MANAGER Active BENADRYL ALLERGY 25 MG TABS NEEDED DIPHENHYDRAMINE HCL 42401998664 Active Aneta Tavarezum COPY MANAGER Active TYLENOL 325 MG TABS NEEDED ACETAMINOPHEN 39407660637 Active Aneta Tavarezum COPY MANAGER Active ADVIL 200 MG TABS TAKE NEEDED IBUPROFEN 19730250784 Active Aneta Tavarezum COPY MANAGER Active ADULT ASPIRIN EC LOW STRENGTH 81 MG TBEC TAKE 1 TAB DAILY ASPIRIN 66143585868 Active Aneta Tavarezum COPY MANAGER Active VITAMIN E NATURAL 400 UNIT CAPS TAKE 1 CAP DAILY VITAMIN E 45485409309 Active Aneta Tavarezum COPY MANAGER Active GLUCOSAMINE-CHONDROITIN 500-400 MG TABS TAKE 1 TAB DAILY GLUCOSAMINE-CHONDROITIN 71067986709 Active Aneta Tavarezum COPY MANAGER Active NORVASC 10 MG TABS TAKE 1 TAB DAILY AMLODIPINE BESYLATE 40615895760 Active Mariaa Whitman NETWORK ACCOUNT MANAGER Active BENAZEPRIL HCL 40 MG TABS 1 PO BID BENAZEPRIL HCL 28992489644 Active Mariaa Whitman NETWORK ACCOUNT MANAGER Active LOVASTATIN 20 MG TABS 1 PO Q HS FOR CHOLESTEROL LOVASTATIN 65899767643 Active Mariaa Whitman NETWORK ACCOUNT MANAGER Active RANITIDINE HCL 150 MG CAPS 1 PO Q 12 HRS RANITIDINE HCL 95906638165 Active Mariaa Whitman NETWORK ACCOUNT MANAGER Active ALENDRONATE SODIUM 70 MG TABS TAKE 1 TAB ONCE A WEEK ALENDRONATE SODIUM 08861283766 Active Mariaa Whitman NETWORK ACCOUNT MANAGER Active AMOXICILLIN 500 MG CAP 1 tab by mouth 3 times daily AMOXICILLIN 500 MG CAP 497022 AMOXICILLIN Inactive BACTRIM DS 800-160 MG TABS 1 pill by mouth twice daily, for UTI BACTRIM DS 800-160 MG TABS 165052 SULFAMETHOXAZOLE-TRIMETHOPRIM Inactive Immunizations Vaccine Administration Date Value [...] ... - Chemistry sodium, serum 132 mmol/L 205-655 2148/04/20 carbon dioxide, venous blood 31.3 mmol/L 21.0-32.0 [...] 1.41 ng/dL 0.76-1.46 cholesterol, serum 166 mg/dL 070-572 5403/04/20 triglyceride, serum, fasting 68 mg/dL 30-200 HDL [...] 5.0-8.5 Encounters Code Encounter Date Provider Facility CPT-54608 Level 4 Est. Patient 15:07:54 CDT Mariaa Whitman [facility] CPT-46264 Level 3 Est. Patient 20:45:54 MANAGER DEVELOPMENT Mariaa Whimtan [facility] CPT-34136 Level 3 Est. Patient 12:16:16 CDT Ana Cristina Vallejo MD PhD [facility] CPT-74695 Level 4 Est. Patient 12:49:21 CDT Ana Cristina Vallejo MD [facility] CPT-87059 Level 4 Est. Patient 23:02:25 CDT Ana Cristina Vallejo MD [facility] CPT-73530 Level 4 Est. Patient 19:26:33 MANAGER DEVELOPMENT Ana Cristina Vallejo MD [facility] CPT-94714 Level 4 Est. Patient 11:28:14 CDT Ana Cristina Vallejo MD [facility] CPT-89333 Level 4 Est. Patient 15:35:46 MANAGER DEVELOPMENT Ana Cristina Vallejo MD [facility] CPT-00912 Level 3 Est. Patient 21:06:39 MANAGER DEVELOPMENT Alden Kim MD [facility] CPT-25807 Level 4 Est. Patient 15:30:54 MANAGER DEVELOPMENT Ana Cristina Vallejo MD [facility] Procedures Code Procedure Name Date Entry Date Standard Description CPT-41314 Bone Density 09:14:12 CDT CPT-000 Give Appropriate Flu Vaccine 14:51:52 CDT CPT-66543 Fluzone High Dose (>=65 yrs.) 15:19:23 CDT CPT-38469 Immunization Single Admin 15:19:23 CDT CPT-59173 Prevnar 13 15:40:03 CDT CPT-08874 Administration single or combination vaccine inc oral 15 :40:03 CDT CPT-97539 Prevnar 13 13:55:07 CDT CPT-G0008 Administration of Influenza Virus Vaccine 10:49:51 CDT CPT-97479 Fluzone High-Dose Intramuscular Suspension 10:49:51 CDT CPT-66925 Knee 3V 13:31:37 CDT CPT-18449 Bone Density 09:07:05 MANAGER DEVELOPMENT CPT-07840 Nail Avulsion 09:46:05 CDT CPT-00447 Administration single or combination vaccine inc oral 16 :11:54 CDT CPT-98758 Influenza High Dose age 65+ 16:11:54 CDT CPT-92627 Administration single or combination vaccine inc oral 10 :53:15 CDT CPT-37031 Influenza High Dose age 65+ 10:53:15 CDT CPT-09200 Bone Density 14:50:58 MANAGER DEVELOPMENT CPT-22693 Administration single or combination vaccine inc oral 15 :41:20 MANAGER DEVELOPMENT CPT-01627 Zoster Vaccine (Zostavax) 15:41:20 MANAGER DEVELOPMENT CPT-92165 Spec Collection and Handling Fee 11:18:25 MANAGER DEVELOPMENT CPT-25665 Administration single or combination vaccine inc oral 11 :14:20 CDT CPT-42708 Influenza High Dose age 65+ 11:14:20 CDT
--- OUTSIDE RECORDS SUMMARY | 2017-07-18 08:57 | XMS REPORT | Clinical Summary ---
Author Author Admin, DANDRE Organization [facility] Address Unknown Phone Unavailable Allergies, Adverse [...] by mouth twice daily, for UTI SULFAMETHOXAZOLE-TRIMETHOPRIM 84550855879 No Longer Active Ana Cristina Vallejo MD PhD Active HYDROCHLOROTHIAZIDE 12.5 MG CAPS 1 pill by mouth daily, for blood pressure HYDROCHLOROTHIAZIDE 58679480093 Active Mariaadomenico Whitman APRN Active CARVEDILOL 25 MG TABS 1 pill by mouth twice daily for blood pressure CARVEDILOL 77580290239 Active Mariaa Yokum BLOOD TESTER Active SYNTHROID 0.088 MG TAB 1 tablet by mouth daily for thyroid LEVOTHYROXINE SODIUM 06021091976 Active Mariaa Yokum BLOOD TESTER Active AMOXICILLIN 500 MG CAP 1 tab by mouth 3 times daily AMOXICILLIN 19896072505 No Longer Active Alden Kim MD Active [facility] VITAMIN D3 1000 UNIT CAPS TAKE 2 CAP DAILY CHOLECALCIFEROL 19554593573 Active Ana Cristina Vallejo MD PhD Active CALCIUM 500 MG TABS TAKE 3 TABS DAILY CALCIUM 43253461314 Active Aneta D Leo PROJECT BUILDER Active MULTIVITAMINS TABS TAKE 1 TAB DAILY MULTIPLE VITAMIN 79314862434 Active Aneta D Leo PROJECT BUILDER Active BENADRYL ALLERGY 25 MG TABS NEEDED DIPHENHYDRAMINE HCL 46268957205 Active Aneta D Leo PROJECT BUILDER Active TYLENOL 325 MG TABS NEEDED ACETAMINOPHEN 78336211584 Active Aneta D Leo PROJECT BUILDER Active ADVIL 200 MG TABS TAKE NEEDED IBUPROFEN 29376697839 Active Aneta D Leo PROJECT BUILDER Active ADULT ASPIRIN EC LOW STRENGTH 81 MG TBEC TAKE 1 TAB DAILY ASPIRIN 12869962719 Active Aneta D Leo PROJECT BUILDER Active VITAMIN E NATURAL 400 UNIT CAPS TAKE 1 CAP DAILY VITAMIN E 18360907438 Active Aneta D Leo PROJECT BUILDER Active GLUCOSAMINE-CHONDROITIN 500-400 MG TABS TAKE 1 TAB DAILY GLUCOSAMINE-CHONDROITIN 35447686341 Active Aneta D Leo PROJECT BUILDER Active NORVASC 10 MG TABS TAKE 1 TAB DAILY AMLODIPINE BESYLATE 64163515112 Active Mariaa Yokum BLOOD TESTER Active BENAZEPRIL HCL 40 MG TABS 1 PO BID BENAZEPRIL HCL 39386739481 Active Mariaa Yokum BLOOD TESTER Active LOVASTATIN 20 MG TABS 1 PO Q HS FOR CHOLESTEROL LOVASTATIN 20826950511 Active Mariaa Yokum BLOOD TESTER Active RANITIDINE HCL 150 MG CAPS 1 PO Q 12 HRS RANITIDINE HCL 72512816425 Active Mariaa Whitman BLOOD TESTER Active ALENDRONATE SODIUM 70 MG TABS TAKE 1 TAB ONCE A WEEK ALENDRONATE SODIUM 90270353788 Active Mariaa Whitman BLOOD TESTER Active AMOXICILLIN 500 MG CAP 1 tab by mouth 3 times daily AMOXICILLIN 500 MG CAP 948647 AMOXICILLIN Inactive BACTRIM DS 800-160 MG TABS 1 pill by mouth twice daily, for UTI BACTRIM DS 800-160 MG TABS 852269 SULFAMETHOXAZOLE-TRIMETHOPRIM Inactive Immunizations Vaccine Administration Date Value [...] Name Value Unit Range Description Lab Report: UADIP W/MICRO, AUTO - Chemistry [...] 5.0-8.5 Encounters Code Encounter Date Provider Facility CPT-97092 Level 3 Est. Patient 20:45:54 STEEL PAN FORM PLACING SUPERVISOR Mariaa Whitman [facility] CPT-96076 Level 3 Est. Patient 12:16:16 CDT Ana Cristina Vallejo MD [facility] CPT-36437 Level 4 Est. Patient 12:49:21 CDT Ana Cristina Vallejo MD [facility] CPT-18771 Level 4 Est. Patient 23:02:25 CDT Ana Cristina Vallejo MD [facility] CPT-23407 Level 4 Est. Patient 19:26:33 STEEL PAN FORM PLACING SUPERVISOR Ana Cristina Vallejo MD [facility] CPT-58956 Level 4 Est. Patient 11:28:14 CDT Ana Cristina Vallejo MD [facility] CPT-80557 Level 4 Est. Patient 15:35:46 STEEL PAN FORM PLACING SUPERVISOR Ana Cristina Vallejo MD [facility] CPT-60673 Level 3 Est. Patient 21:06:39 STEEL PAN FORM PLACING SUPERVISOR Alden Kim MD [facility] CPT-85706 Level 4 Est. Patient 15:30:54 STEEL PAN FORM PLACING SUPERVISOR Ana Cristina Vallejo MD [facility] Procedures Code Procedure Name Date Entry Date Standard Description CPT-000 Give Appropriate Flu Vaccine 14:51:52 CDT CPT-98495 Fluzone High Dose (>=65 yrs.) 15:19:23 CDT CPT-02916 Immunization Single Admin 15:19:23 CDT CPT-61646 Prevnar 13 15:40:03 CDT CPT-09818 Administration single or combination vaccine inc oral 15 :40:03 CDT CPT-76954 Prevnar 13 13:55:07 CDT CPT-G0008 Administration of Influenza Virus Vaccine 10:49:51 CDT CPT-77851 Fluzone High-Dose Intramuscular Suspension 10:49:51 CDT CPT-06134 Knee 3V 13:31:37 CDT CPT-75981 Bone Density 09:07:05 STEEL PAN FORM PLACING SUPERVISOR CPT-27035 Nail Avulsion 09:46:05 CDT CPT-69173 Administration single or combination vaccine inc oral 16 :11:54 CDT CPT-91480 Influenza High Dose age 65+ 16:11:54 CDT CPT-72496 Administration single or combination vaccine inc oral 10 :53:15 CDT CPT-39973 Influenza High Dose age 65+ 10:53:15 CDT CPT-00237 Bone Density 14:50:58 STEEL PAN FORM PLACING SUPERVISOR CPT-42817 Administration single or combination vaccine inc oral 15 :41:20 STEEL PAN FORM PLACING SUPERVISOR CPT-61177 Zoster Vaccine (Zostavax) 15:41:20 STEEL PAN FORM PLACING SUPERVISOR CPT-72738 Spec Collection and Handling Fee 11:18:25 STEEL PAN FORM PLACING SUPERVISOR CPT-44825 Administration single or combination vaccine inc oral 11 :14:20 CDT CPT-74168 Influenza High Dose age 65+ 11:14:20 CDT
--- OUTSIDE RECORDS SUMMARY | 2017-07-18 08:58 | XMS REPORT | Clinical Summary ---
Author Author Admin, DANDRE Organization [facility] [employer] Address Unknown Phone Unavailable Allergies, Adverse Reactions, Alerts Allergy Name Reaction Description Start Date Severity Status Provider NKDA Critical Active Mariaa Whitman DOCTOR OF AUDIOLOGY Conditions or Problems Problem Name Problem Code [...] 1 po BID PRN Constipation DOCUSATE SODIUM 72130714964 No Longer Active Deepti Madl HR ADMINISTRATIVE ASSISTANT Active ALPRAZOLAM 0.25 MG TAB 1/2-1 tablet by mouth twice a day as needed for stress ALPRAZOLAM 82898567517 No Longer Active Deepti Madl HR ADMINISTRATIVE ASSISTANT Active MIRALAX ORAL PACK Takes daily prn POLYETHYLENE GLYCOL 3350 88668977201 Active Mariaa Yokum DOCTOR OF AUDIOLOGY Active ALENDRONATE SODIUM 70 MG TABS 1 pill by mouth weekly for osteoporosis ALENDRONATE SODIUM 83063720672 Active Brianda Reis [facility] Active E-1000 1000 UNIT ORAL CAPS Take one by mouth daily VITAMIN E 75355263703 Active Brianda Reis [facility] Active OSCAL 500/200 D-3 500-200 MG-UNIT ORAL TABS Take one by mouth 3 times daily, morning, afternoon and evening.] CALCIUM CARBONATE-VITAMIN D 04105358049 Active Brianda Reis [facility] Active ASPIRIN 81 MG CHEW TAB 1 tablet by mouth daily ASPIRIN 45834687131 Active Brianda Reis [facility] Active ADULT ASPIRIN EC LOW STRENGTH 81 MG TBEC TAKE 1 TAB DAILY ASPIRIN 68650510630 No Longer Active Mariaa Yokum DOCTOR OF AUDIOLOGY Active ALENDRONATE SODIUM 70 MG TABS TAKE 1 TAB ONCE A WEEK ALENDRONATE SODIUM 90564250188 No Longer Active Mariaa Yokum DOCTOR OF AUDIOLOGY Active FLONASE ALLERGY RELIEF 50 MCG/ACT NASAL SUSP One spray each nostril daily for allergies FLUTICASONE PROPIONATE 67023065200 Active Mariaa Whitman APRN Active CETIRIZINE HCL 10 MG ORAL TABS 1 po qd PRN Allergies CETIRIZINE HCL 33933665432 Active HEDY Esquivel Active BACTRIM DS 800-160 MG TABS 1 pill by mouth twice daily, for UTI SULFAMETHOXAZOLE-TRIMETHOPRIM 03850248882 No Longer Active Ana Cristina Vallejo MD PhD Active HYDROCHLOROTHIAZIDE 12.5 MG CAPS 1 pill by mouth daily, for blood pressure HYDROCHLOROTHIAZIDE 82011933121 Active HEDY Esquivel Active CARVEDILOL 25 MG TABS 1 pill by mouth twice daily for blood pressure CARVEDILOL 46230370459 Active HEDY Esquivel Active SYNTHROID 0.088 MG TAB 1 tablet by mouth daily for thyroid LEVOTHYROXINE SODIUM 20989636201 Active HEDY Esquivel Active AMOXICILLIN 500 MG CAP 1 tab by mouth 3 times daily AMOXICILLIN 89533891359 No Longer Active Alden Kim MD Active [facility] VITAMIN D3 1000 UNIT CAPS TAKE 2 CAP DAILY CHOLECALCIFEROL Active Ana Cristina Vallejo MD PhD Active CALCIUM 500 MG TABS TAKE 3 TABS DAILY CALCIUM 98557169307 No Longer Active Mariaa Whitman APRN Active MULTIVITAMINS TABS TAKE 1 TAB DAILY MULTIPLE VITAMIN Active Anetajeannie Tavarezum HR ADMINISTRATIVE ASSISTANT Active BENADRYL ALLERGY 25 MG TABS NEEDED DIPHENHYDRAMINE HCL 96800429358 Active Aneta Singh Leo HR ADMINISTRATIVE ASSISTANT Active TYLENOL 325 MG TABS NEEDED ACETAMINOPHEN 47022054657 Active Aneta Singh Leo HR ADMINISTRATIVE ASSISTANT Active ADVIL 200 MG TABS TAKE NEEDED IBUPROFEN 35180544257 Active Aneta Singh Leo HR ADMINISTRATIVE ASSISTANT Active GLUCOSAMINE-CHONDROITIN 500-400 MG TABS TAKE 1 TAB DAILY GLUCOSAMINE-CHONDROITIN 70044813567 Active Mariaa Whitman APRN Active NORVASC 10 MG TABS TAKE 1 TAB DAILY AMLODIPINE BESYLATE 41381963383 Active HEDY Esquivel Active BENAZEPRIL HCL 40 MG TABS 1 PO BID BENAZEPRIL HCL 79180713666 Active HEDY Esquivel Active LOVASTATIN 20 MG TABS 1 PO Q HS FOR CHOLESTEROL LOVASTATIN 97746328732 Active HEDY Esquivel Active RANITIDINE HCL 150 MG CAPS 1 PO Q 12 HRS RANITIDINE HCL 56141350090 Active HEDY Esquivel Active ALPRAZOLAM 0.25 MG TAB 1/2-1 tablet by mouth twice a day as needed for stress ALPRAZOLAM 0.25 MG TAB 967939 ALPRAZOLAM Inactive AMOXICILLIN 500 MG CAP 1 tab by mouth 3 times daily AMOXICILLIN 500 MG CAP 859417 AMOXICILLIN Inactive BACTRIM DS 800-160 MG TABS 1 pill by mouth twice daily, for UTI BACTRIM DS 800-160 MG TABS 705002 SULFAMETHOXAZOLE-TRIMETHOPRIM Inactive COLACE 100 MG CAP 1 po BID PRN Constipation COLACE 100 MG CAP 7939292 DOCUSATE SODIUM Inactive ADULT ASPIRIN EC LOW STRENGTH 81 MG TBEC TAKE 1 TAB DAILY ADULT ASPIRIN EC LOW STRENGTH 81 MG TBEC 357799 ASPIRIN Inactive ALENDRONATE SODIUM 70 MG TABS TAKE 1 TAB ONCE A WEEK ALENDRONATE SODIUM 70 MG TABS 109877 ALENDRONATE SODIUM Inactive Advance Directives Directive Description [...] Panel - Chemistry sodium, serum 130 mmol/L 412-584 4194/10/19 potassium, serum 3.5 mmol/L 3.5-5.2 chloride, serum 92 mmol/L 98-107 carbon dioxide, venous blood 33.6 mmol/L 21.0-32.0 blood glucose 118 mg/dL 65-110 calcium, serum 8.8 mg/dL 8.5-10.1 urea nitrogen, blood 11 mg/dL 7-18 creatinine, serum 1.12 mg/dL 0.55-1.30 Lab Report: CBC-QUEST, COMPREHENSIVE METABOLIC PANEL, LIPID PANEL, Micro ... - Chemistry cholesterol, serum 162 mg/dL 998-837 9272/05/01 HDL cholesterol, serum 68 mg/dL > OR=46 [...] % 11.0-15.0 platelet count 297 THOUSAND/UL 10*3/mm3 208-703 3904/05/01 mean platelet volume 8.9 fL 7.5-12.5 Lab [...] Negative Encounters Code Encounter Date Provider Facility CPT-65484 Level 4 Est. Patient 14:40:54 CDT Bee Rosas [facility] CPT-68876 Level 4 Est. Patient 10:31:15 CDT Jalil Hayes MD [facility]-27261 Level 4 Est. Patient 15:07:54 CDT Mariaa Whitman [facility]-84885 Level 3 Est. Patient 20:45:54 ADMINISTRATIVE INTERN Mariaa Whitman [facility] CPT-45015 Level 3 Est. Patient 12:16:16 CDT Ana Cristina Vallejo MD PhD [facility] CPT-90486 Level 4 Est. Patient 12:49:21 CDT Ana Cristina Vallejo MD [facility]-44068 Level 4 Est. Patient 23:02:25 CDT Ana Cristina Vallejo MD PhD [facility] CPT-38530 Level 4 Est. Patient 19:26:33 ADMINISTRATIVE INTERN Ana Cristina Vallejo MD PhD [facility] CPT-01013 Level 4 Est. Patient 11:28:14 CDT Ana Cristina Vallejo MD PhD [facility] CPT-95397 Level 4 Est. Patient 15:35:46 ADMINISTRATIVE INTERN Ana Cristina Vallejo MD PhD [facility] CPT-47929 Level 3 Est. Patient 21:06:39 ADMINISTRATIVE INTERN Alden Kim MD [facility] CPT-31173 Level 4 Est. Patient 15:30:54 ADMINISTRATIVE INTERN Ana Cristina Vallejo MD PhD [facility] Procedures Code Procedure Name Date Entry Date Standard Description CPT-73186 EKG Trac and Interp - XRAY USE ONLY 10:35:11 CDT 09/11 CPT-99337 Chest 2V Frontal and Lat - XRAY USE ONLY 10:35:11 CDT CPT-G0438 Initial Annual Wellness Exam 14:54:07 CDT CPT-G0009 Administration of Pneumococcal Vaccine 14:44:24 CDT CPT-17125 Pneumovax 23 Injection Injectable 25 MCG/0.5ML 14:44:24 CDT CPT-89932 First Vx - Ix admin for Medicare patients 14:44:24 CDT CPT-91410 Fluzone High-Dose Intramuscular Suspension 14:44:20 CDT CPT-78079 BMP - LAB USE ONLY 12:38:06 CDT CPT-42041 Urine Culture - LAB USE ONLY 16:56:33 CDT CPT-TCMM Transitional Care Mgmt-Moderate 18:08:16 CDT CPT-96016 Bone Density 09:14:12 CDT CPT-000 Give Appropriate Flu Vaccine 14:51:52 CDT CPT-34888 Fluzone High Dose (>=65 yrs.) 15:19:23 CDT CPT-04926 Immunization Single Admin 15:19:23 CDT CPT-61079 Prevnar 13 15:40:03 CDT CPT-86848 Administration single or combination vaccine inc oral 15 :40:03 CDT CPT-08233 Prevnar 13:55:07 CDT CPT-G0008 Administration of Influenza Virus Vaccine 10:49:51 CDT CPT-91475 Fluzone High-Dose Intramuscular Suspension 10:49:51 CDT CPT-66093 Knee 3V 13:31:37 CDT CPT-68430 Bone Density 09:07:05 ADMINISTRATIVE INTERN CPT-06901 Nail Avulsion 09:46:05 CDT CPT-02013 Administration single or combination vaccine inc oral 16 :11:54 CDT CPT-65177 Influenza High Dose age 65+ 16:11:54 CDT CPT-09150 Administration single or combination vaccine inc oral 10 :53:15 CDT CPT-82483 Influenza High Dose age 65+ 10:53:15 CDT CPT-45479 Bone Density 14:50:58 ADMINISTRATIVE INTERN CPT-72937 Administration single or combination vaccine inc oral 15 :41:20 ADMINISTRATIVE INTERN CPT-14107 Zoster Vaccine (Zostavax) 15:41:20 ADMINISTRATIVE INTERN CPT-35222 Spec Collection and Handling Fee 11:18:25 ADMINISTRATIVE INTERN CPT-72499 Administration single or combination vaccine inc oral 11 :14:20 CDT CPT-06752 Influenza High Dose age 65+ 11:14:20 CDT
--- OUTSIDE RECORDS SUMMARY | 2017-07-18 08:59 | XMS REPORT | Clinical Summary ---
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 Conditions or Problems Problem Name Problem Code Onset Date Status Entry Date Provider Comment Standard Description Annotate ROUTINE GYNECOLOGICAL EXAMINATION V72.31 Resolved Ana Cristina Vallejo MD PhD Routine gynecological examination MENOPAUSE 627.2 Ruled out Ana Cristina Vallejo MD PhD Symptomatic menopausal or female climacteric states MENOPAUSE 627.2 Active Brianda Reis [facility] Symptomatic menopausal or female climacteric states DIVERTICULOSIS, [...] facility Osteoarthritis, knee 715.96 Active Ana Cristina Valeljo MD PhD Osteoarthrosis, unspecified whether generalized or [...] MD Dysuria Forgetfulness 780.99 Active Radha Jones [employer] Other general symptoms Unsteady gait 781.2 Active [...] 1 daily, for vitamin D deficiency CHOLECALCIFEROL 70653776634 No Longer Active Radha Jones APRN Active CIPRO 250 MG ORAL TABLET 1 tab BID for 7 days CIPROFLOXACIN HCL 19583424526 No Longer Active Radha Jones APRN Active VITAMIN D3 2000 UNIT ORAL CAPSULE 1 capsule po daily CHOLECALCIFEROL 29733378590 Active Aneta Tavarezum DEHYDROGENATION OPERATOR Active EQL ONE DAILY WOMENS ORAL TABLET 1 po daily MULTIPLE VITAMINS- CALCIUM 65424627397 Active Aneta D Leo DEHYDROGENATION OPERATOR Active MACROBID 100 MG ORAL CAPSULE 1 tab BID for 5 days NITROFURANTOIN MONOHYD MACRO 89297340447 No Longer Active Deepti Junior LPN Active HYDROCHLOROTHIAZIDE 12.5 MG ORAL CAPSULE 1 pill by mouth daily HYDROCHLOROTHIAZIDE 85402656076 Active Jalil Hayse MD Active RANITIDINE HCL 150 MG ORAL CAPSULE once nightly RANITIDINE HCL 39560683741 Active Jalil Hayes MD Active BENAZEPRIL HCL 40 MG ORAL TABLET 1 daily for blood pressure BENAZEPRIL HCL 45538683537 Active Jalil Hayes MD Active HYDROCHLOROTHIAZIDE 12.5 MG ORAL CAPSULE 1 pill by mouth daily, for blood pressure HYDROCHLOROTHIAZIDE 55769401708 No Longer Active Jalil Hayes MD Active AUGMENTIN 875-125 MG ORAL TABLET 1 po BID x 7 days AMOXICILLIN-POT CLAVULANATE 10607622002 No Longer Active Jalil Hayes MD Active OMEPRAZOLE 40 MG ORAL CAPSULE DELAYED RELEASE 1 po q a.m. OMEPRAZOLE 27288141196 Active HEDY Esquivel Active MIRALAX ORAL PACKET Takes daily prn POLYETHYLENE GLYCOL 3350 27454542188 No Longer Active Peggy Pardo LPN Active FLONASE ALLERGY RELIEF 50 MCG/ACT NASAL SUSPENSION One spray each nostril daily for allergies FLUTICASONE PROPIONATE 43892030343 No Longer Active Peggy Pardo, DEHYDROGENATION OPERATOR Active BENADRYL ALLERGY 25 MG ORAL TABLET NEEDED DIPHENHYDRAMINE HCL 81856666502 No Longer Active Peggy Pardo, DEHYDROGENATION OPERATOR Active ADVIL 200 MG ORAL TABLET TAKE NEEDED IBUPROFEN 76892309758 No Longer Active Peggy Pardo, DEHYDROGENATION OPERATOR Active COLACE 100 MG ORAL CAPSULE 1 po BID PRN Constipation DOCUSATE SODIUM 21315703257 No Longer Active Deepti Hamlinl DEHYDROGENATION OPERATOR Active ALPRAZOLAM 0.25 MG ORAL TABLET 1/2-1 tablet by mouth twice a day as needed for stress ALPRAZOLAM 26216371845 No Longer Active Deepti Junior DEHYDROGENATION OPERATOR Active ALENDRONATE SODIUM 70 MG ORAL TABLET 1 pill by mouth weekly for osteoporosis ALENDRONATE SODIUM 37293008346 Active Mariaadomenico Whitman APRN Active E-1000 1000 UNIT ORAL CAPSULE Take one by mouth daily VITAMIN E 66101523085 Active Aneta Bailey DEHYDROGENATION OPERATOR Active OSCAL 500/200 D-3 500-200 MG-UNIT ORAL TABLET Take one by mouth 3 times daily , morning, afternoon and evening.] CALCIUM CARBONATE-VITAMIN D 47163538367 Active Aneta Tavarezum DEHYDROGENATION OPERATOR Active ASPIRIN 81 MG ORAL TABLET CHEWABLE 1 tablet by mouth daily ASPIRIN 32884349437 Active Aneta Tavarezum DEHYDROGENATION OPERATOR Active ADULT ASPIRIN EC LOW STRENGTH 81 MG ORAL TABLET DELAYED RELEASE TAKE 1 TAB DAILY ASPIRIN 61317113581 No Longer Active Mariaa Antonette [employer] Active ALENDRONATE SODIUM 70 MG ORAL TABLET TAKE 1 TAB ONCE A WEEK 01/20 ALENDRONATE SODIUM 92312058858 No Longer Active Mariaa Lauxuanum [employer] Active CETIRIZINE HCL 10 MG ORAL TABLET 1 po qd PRN Allergies CETIRIZINE HCL 95032469639 Active HEDY Esquivel Active BACTRIM DS 800-160 MG ORAL TABLET 1 pill by mouth twice daily, for UTI 01/29 SULFAMETHOXAZOLE-TRIMETHOPRIM 79407882600 No Longer Active Ana Cristina Vallejo MD PhD Active CARVEDILOL 25 MG ORAL TABLET 1 pill by mouth twice daily for blood pressure CARVEDILOL 02512561519 Active Aneta Bailey LPN Active SYNTHROID 88 MCG ORAL TABLET 1 tablet by mouth daily for thyroid LEVOTHYROXINE SODIUM 68039800137 Active HEDY Esquivel Active AMOXICILLIN 500 MG ORAL CAPSULE 1 tab by mouth 3 times daily 2011 AMOXICILLIN 83463658758 No Longer Active Alden Kim MD Active CALCIUM 500 MG ORAL TABLET TAKE 3 TABS DAILY CALCIUM 23219589786 No Longer Active Mariaa Yokum PARISH Active MULTIVITAMINS TABS TAKE 1 TAB DAILY MULTIPLE VITAMIN No Longer Active Aneta Tavarezum YULIET Active TYLENOL 325 MG ORAL TABLET NEEDED ACETAMINOPHEN 66083227007 Active Aneta Tavarezum DEHYDROGENATION OPERATOR Active GLUCOSAMINE-CHONDROITIN 500-400 MG ORAL TABLET TAKE 1 TAB DAILY GLUCOSAMINE-CHONDROITIN 12569210329 Active Aneta Bailey LPN Active NORVASC 10 MG ORAL TABLET TAKE 1 TAB DAILY AMLODIPINE BESYLATE 69481111373 Active Aneta Bailey LPN Active LOVASTATIN 20 MG ORAL TABLET 1 PO Q HS FOR CHOLESTEROL LOVASTATIN 37964361374 Active HEDY Esquivel Active ALENDRONATE SODIUM 70 MG ORAL TABLET TAKE 1 TAB ONCE A WEEK 01/20 ALENDRONATE SODIUM 70 MG ORAL TABLET 096436 ALENDRONATE SODIUM Inactive ADULT ASPIRIN EC LOW STRENGTH 81 MG ORAL TABLET DELAYED RELEASE TAKE 1 TAB DAILY ADULT ASPIRIN EC LOW STRENGTH 81 MG ORAL TABLET DELAYED RELEASE 479601 ASPIRIN Inactive ALPRAZOLAM 0.25 MG ORAL TABLET 1/2-1 tablet by mouth twice a day as needed for stress ALPRAZOLAM 0.25 MG ORAL TABLET 167020 ALPRAZOLAM Inactive COLACE 100 MG ORAL CAPSULE 1 po BID PRN Constipation COLACE 100 MG ORAL CAPSULE 5400473 DOCUSATE SODIUM Inactive ADVIL 200 MG ORAL TABLET TAKE NEEDED ADVIL 200 MG ORAL TABLET 710658 IBUPROFEN Inactive BENADRYL ALLERGY 25 MG ORAL TABLET NEEDED BENADRYL ALLERGY 25 MG ORAL TABLET 8868762 DIPHENHYDRAMINE HCL Inactive FLONASE ALLERGY RELIEF 50 MCG/ACT NASAL SUSPENSION One spray each nostril daily for allergies FLONASE ALLERGY RELIEF 50 MCG/ACT NASAL SUSPENSION 6752500 FLUTICASONE PROPIONATE Inactive MIRALAX ORAL PACKET Takes daily prn MIRALAX ORAL PACKET 493230 POLYETHYLENE GLYCOL 3350 Inactive AUGMENTIN 875-125 MG ORAL TABLET 1 po BID x 7 days AUGMENTIN 875-125 MG ORAL TABLET 603201 AMOXICILLIN-POT CLAVULANATE Inactive HYDROCHLOROTHIAZIDE 12.5 MG ORAL CAPSULE 1 pill by mouth daily, for blood pressure HYDROCHLOROTHIAZIDE 12.5 MG ORAL CAPSULE 452886 HYDROCHLOROTHIAZIDE Inactive CIPRO 250 MG ORAL TABLET 1 tab BID for 7 days CIPRO 250 MG ORAL TABLET 526127 CIPROFLOXACIN HCL Inactive VITAMIN D3 2000 UNIT ORAL TABLET 1 daily, for vitamin D deficiency VITAMIN D3 2000 UNIT ORAL TABLET CHOLECALCIFEROL Inactive AMOXICILLIN 500 MG ORAL CAPSULE 1 tab by mouth 3 times daily 2011 AMOXICILLIN 500 MG ORAL CAPSULE 690712 AMOXICILLIN Inactive BACTRIM DS 800-160 MG ORAL TABLET 1 pill by mouth twice daily, for UTI 01/29 BACTRIM DS 800-160 MG ORAL TABLET 515396 SULFAMETHOXAZOLE- TRIMETHOPRIM Inactive MACROBID 100 MG ORAL CAPSULE 1 tab BID for 5 days MACROBID 100 MG ORAL CAPSULE 3526682 NITROFURANTOIN MONOHYD MACRO Inactive Advance Directives Directive [...] Panel - Chemistry sodium, serum 132 mmol/L 676-366 9939/08/09 potassium, serum 4.2 mmol/L 3.5-5.2 chloride, serum 99 mmol/L 98-107 carbon dioxide, venous blood 24.7 mmol/L 21.0-32.0 blood glucose 119 mg/dL 65-110 calcium, serum 8.5 mg/dL 8.5-10.1 urea nitrogen, blood 14 mg/dL 7-18 creatinine, serum 1.16 mg/dL 0.60-1.30 Lab Report: CBC-QUEST, COMPREHENSIVE METABOLIC PANEL, LIPID PANEL, Micro ... - Chemistry cholesterol, serum 162 mg/dL 331-283 9370/05/01 HDL cholesterol, serum 68 mg/dL > OR=46 [...] % 11.0-15.0 platelet count 297 THOUSAND/UL 10*3/mm3 724-294 1429/05/01 mean platelet volume 8.9 fL 7.5-12.5 mean [...] Stimulating Hormone (L), Basic ... - Chemistry sodium, serum 139 mmol/L 409-510 9570/01/10 potassium, serum 3.8 mmol/L 3.5-5.2 chloride, serum 101 mmol/L 98-107 carbon dioxide, venous blood 24.4 mmol/L 21.0-32.0 blood glucose 101 mg/dL 65-110 calcium, serum 9.2 mg/dL 8.5-10.1 urea nitrogen, blood 15 mg/dL 7-18 creatinine, serum 1.18 mg/dL 0.60-1.30 TSH 1.13 m[iU]/mL 0.36-3.74 Lab Report: UADIP W/MICRO, AUTO - Chemistry [...] 5.0-8.5 Encounters Code Encounter Date Provider Facility [facility]-20916 Level 4 Est. Patient 12:35:27 PHOTO GRAPHICS LIBRARIAN Jalil Hayes MD [facility]-67364 Level 3 Est. Patient 13:55:49 CDT Jalil Hayes MD [facility]94394 Level 3 Est. Patient 14:38:15 CDT Jalil Hayes MD [facility]18424 Level 4 Est. Patient 14:40:54 CDT Bee Rosas [facility]-80842 Level 4 Est. Patient 10:31:15 CDT Jalil Hayes MD [facility]00846 Level 4 Est. Patient 15:07:54 CDT Mariaa Whitman [facility]32864 Level 3 Est. Patient 20:45:54 PHOTO GRAPHICS LIBRARIAN Mariaa Whitman [facility]-18116 Level 3 Est. Patient 12:16:16 CDT Ana Cristina Vallejo MD [facility]31202 Level 4 Est. Patient 12:49:21 CDT Ana Cristina Vallejo MD [facility]91140 Level 4 Est. Patient 23:02:25 CDT Ana Cristina Vallejo MD [facility]88710 Level 4 Est. Patient 19:26:33 PHOTO GRAPHICS LIBRARIAN Ana Cristina Vallejo MD [facility]00717 Level 4 Est. Patient 11:28:14 CDT Ana Cristina Vallejo MD [facility]06647 Level 4 Est. Patient 15:35:46 PHOTO GRAPHICS LIBRARIAN Ana Cristina Vallejo MD PhD [facility] CPT-00619 Level 3 Est. Patient 21:06:39 PHOTO GRAPHICS LIBRARIAN Alden Kim MD [facility] CPT-05994 Level 4 Est. Patient 15:30:54 PHOTO GRAPHICS LIBRARIAN Ana Cristina Vallejo MD PhD [facility] Procedures Code Procedure Name Date Entry Date Standard Description CPT-G0439 Subsequent Annual Wellness Exam 11:53:01 PHOTO GRAPHICS LIBRARIAN CPT-51473 First Vx - Ix admin for Medicare patients 13:35:01 CDT CPT-32893 Fluzone High-Dose Intramuscular Suspension 13:35:01 CDT CPT-TCMM Transitional Care Mgmt-Moderate 14:41:55 CDT CPT-81551 EKG Trac and Interp - XRAY USE ONLY 10:35:11 CDT 09/11 CPT-28345 Chest 2V Frontal and Lat - XRAY USE ONLY 10:35:11 CDT CPT-G0438 Initial Annual Wellness Exam 14:54:07 CDT CPT-G0009 Administration of Pneumococcal Vaccine 14:44:24 CDT CPT-92682 Pneumovax 23 Injection Injectable 25 MCG/0.5ML 14:44:24 CDT CPT-89978 First Vx - Ix admin for Medicare patients 14:44:24 CDT CPT-13733 Fluzone High-Dose Intramuscular Suspension 14:44:20 CDT CPT-78652 BMP - LAB USE ONLY 12:38:06 CDT CPT-64690 Urine Culture - LAB USE ONLY 16:56:33 CDT CPT-TCMM Transitional Care Mgmt-Moderate 18:08:16 CDT CPT-25972 Bone Density 09:14:12 CDT CPT-000 Give Appropriate Flu Vaccine 14:51:52 CDT CPT-66861 Fluzone High Dose (>=65 yrs.) 15:19:23 CDT CPT-19575 Immunization Single Admin 15:19:23 CDT CPT-19825 Prevnar 13 15:40:03 CDT CPT-58535 Administration single or combination vaccine inc oral 15 :40:03 CDT CPT-87511 Prevnar 13 13:55:07 CDT CPT-G0008 Administration of Influenza Virus Vaccine 10:49:51 CDT CPT-87012 Fluzone High-Dose Intramuscular Suspension 10:49:51 CDT CPT-01138 Knee 3V 13:31:37 CDT CPT-28824 Bone Density 09:07:05 PHOTO GRAPHICS LIBRARIAN CPT-28952 Nail Avulsion 09:46:05 CDT CPT-70271 Administration single or combination vaccine inc oral 16 :11:54 CDT CPT-31667 Influenza High Dose age 65+ 16:11:54 CDT CPT-49417 Administration single or combination vaccine inc oral 10 :53:15 CDT CPT-88583 Influenza High Dose age 65+ 10:53:15 CDT CPT-96247 Bone Density 14:50:58 PHOTO GRAPHICS LIBRARIAN CPT-81369 Administration single or combination vaccine inc oral 15 :41:20 PHOTO GRAPHICS LIBRARIAN CPT-09260 Zoster Vaccine (Zostavax) 15:41:20 PHOTO GRAPHICS LIBRARIAN CPT-69391 Spec Collection and Handling Fee 11:18:25 PHOTO GRAPHICS LIBRARIAN CPT-89985 Administration single or combination vaccine inc oral 11 :14:20 CDT CPT-84285 Influenza High Dose age 65+ 11:14:20 CDT
--- OUTSIDE RECORDS SUMMARY | 2017-07-18 09:00 | XMS REPORT | Clinical Summary ---
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 Problem Name Problem Code [...] tab BID for 7 days CIPROFLOXACIN HCL 80712817933 Active Deeptitayler Junior LPN Active MACROBID 100 MG ORAL CAPS 1 tab BID for 5 days NITROFURANTOIN MONOHYD MACRO 32537152101 Active Deeptitayler Junior LPN Active HYDROCHLOROTHIAZIDE 12.5 MG CAPS 1 pill by mouth daily HYDROCHLOROTHIAZIDE 20621379691 Active Jalil Hayes MD Active RANITIDINE HCL 150 MG CAPS once nightly RANITIDINE HCL 04399921970 Active Jalil Hayes MD Active BENAZEPRIL HCL 40 MG TABS 1 daily for blood pressure BENAZEPRIL HCL 15901548626 Active Jalil Hayes MD Active HYDROCHLOROTHIAZIDE 12.5 MG CAPS 1 pill by mouth daily, for blood pressure HYDROCHLOROTHIAZIDE 72228452385 No Longer Active Jalil Hayes MD Active AUGMENTIN 875-125 MG TAB 1 po BID x 7 days AMOXICILLIN-POT CLAVULANATE 73730349344 No Longer Active Jalil Hayes MD Active OMEPRAZOLE 40 MG CPDR 1 po q a.m. OMEPRAZOLE 89330322646 Active Peggy Pardo LPN Active MIRALAX ORAL PACK Takes daily prn POLYETHYLENE GLYCOL 3350 25571133474 No Longer Active Peggy Pardo LPN Active FLONASE ALLERGY RELIEF 50 MCG/ACT NASAL SUSP One spray each nostril daily for allergies FLUTICASONE PROPIONATE 14274821269 No Longer Active Peggy Pardo LPN Active BENADRYL ALLERGY 25 MG TABS NEEDED DIPHENHYDRAMINE HCL 13437874488 No Longer Active Peggy Pardo LPN Active ADVIL 200 MG TABS TAKE NEEDED IBUPROFEN 28561988548 No Longer Active Peggy Pardo LPN Active COLACE 100 MG CAP 1 po BID PRN Constipation DOCUSATE SODIUM 81952443023 No Longer Active Deepti Junior LPN Active ALPRAZOLAM 0.25 MG TAB 1/2-1 tablet by mouth twice a day as needed for stress ALPRAZOLAM 30637929950 No Longer Active Deepti Junior LPN Active ALENDRONATE SODIUM 70 MG TABS 1 pill by mouth weekly for osteoporosis ALENDRONATE SODIUM 19616612414 Active Brianda KNOTT Active E-1000 1000 UNIT ORAL CAPS Take one by mouth daily VITAMIN E 70365931274 Active Brianda KNOTT Active OSCAL 500/200 D-3 500-200 MG-UNIT ORAL TABS Take one by mouth 3 times daily, morning, afternoon and evening.] CALCIUM CARBONATE-VITAMIN D 32647054623 Active Brianda KNOTT Active ASPIRIN 81 MG CHEW TAB 1 tablet by mouth daily ASPIRIN 17291547674 Active Brianda Reis Robin Active ADULT ASPIRIN EC LOW STRENGTH 81 MG TBEC TAKE 1 TAB DAILY ASPIRIN 15843852317 No Longer Active Mariaa Whitman APRN Active ALENDRONATE SODIUM 70 MG TABS TAKE 1 TAB ONCE A WEEK ALENDRONATE SODIUM 85825811506 No Longer Active Mariaa Whitman APRN Active CETIRIZINE HCL 10 MG ORAL TABS 1 po qd PRN Allergies CETIRIZINE HCL 83858062738 Active HEDY Esquivel Active BACTRIM DS 800-160 MG TABS 1 pill by mouth twice daily, for UTI SULFAMETHOXAZOLE-TRIMETHOPRIM 29050891667 No Longer Active Ana Cristina Vallejo MD PhD Active CARVEDILOL 25 MG TABS 1 pill by mouth twice daily for blood pressure CARVEDILOL 77226528178 Active HEDY Esquivel Active SYNTHROID 0.088 MG TAB 1 tablet by mouth daily for thyroid LEVOTHYROXINE SODIUM 51839692550 Active HEDY Esquivel Active AMOXICILLIN 500 MG CAP 1 tab by mouth 3 times daily AMOXICILLIN 27488761088 No Longer Active Alden Kim MD Active CVS VITAMIN D3 1000 UNIT CAPS TAKE 2 CAP DAILY CHOLECALCIFEROL Active Ana Cristina Vallejo MD PhD Active CALCIUM 500 MG TABS TAKE 3 TABS DAILY CALCIUM 47158077949 No Longer Active Mariaa Whitman APRN Active MULTIVITAMINS TABS TAKE 1 TAB DAILY MULTIPLE VITAMIN Active Aneta Tavarezum YULIET Active TYLENOL 325 MG TABS NEEDED ACETAMINOPHEN 56916728006 Active Aneta Tavarezum VIDEO GAME TESTER Active GLUCOSAMINE-CHONDROITIN 500-400 MG TABS TAKE 1 TAB DAILY GLUCOSAMINE-CHONDROITIN 03412337799 Active Mariaa Whitman APRN Active NORVASC 10 MG TABS TAKE 1 TAB DAILY AMLODIPINE BESYLATE 34066137683 Active HEDY Esquivel Active LOVASTATIN 20 MG TABS 1 PO Q HS FOR CHOLESTEROL LOVASTATIN 62897129063 Active Risa CalderonHEDY Active ALENDRONATE SODIUM 70 MG TABS TAKE 1 TAB ONCE A WEEK ALENDRONATE SODIUM 70 MG TABS 857612 ALENDRONATE SODIUM Inactive ADULT ASPIRIN EC LOW STRENGTH 81 MG TBEC TAKE 1 TAB DAILY ADULT ASPIRIN EC LOW STRENGTH 81 MG TBEC 827773 ASPIRIN Inactive ALPRAZOLAM 0.25 MG TAB 1/2-1 tablet by mouth twice a day as needed for stress ALPRAZOLAM 0.25 MG TAB 231296 ALPRAZOLAM Inactive COLACE 100 MG CAP 1 po BID PRN Constipation COLACE 100 MG CAP 4885731 DOCUSATE SODIUM Inactive ADVIL 200 MG TABS TAKE NEEDED ADVIL 200 MG TABS 034528 IBUPROFEN Inactive BENADRYL ALLERGY 25 MG TABS NEEDED BENADRYL ALLERGY 25 MG TABS 9242321 DIPHENHYDRAMINE HCL Inactive FLONASE ALLERGY RELIEF 50 MCG/ACT NASAL SUSP One spray each nostril daily for allergies FLONASE ALLERGY RELIEF 50 MCG/ACT NASAL SUSP 8238731 FLUTICASONE PROPIONATE Inactive MIRALAX ORAL PACK Takes daily prn MIRALAX ORAL PACK 140526 POLYETHYLENE GLYCOL 3350 Inactive AUGMENTIN 875-125 MG TAB 1 po BID x 7 days AUGMENTIN 875-125 MG TAB 447729 AMOXICILLIN-POT CLAVULANATE Inactive HYDROCHLOROTHIAZIDE 12.5 MG CAPS 1 pill by mouth daily, for blood pressure HYDROCHLOROTHIAZIDE 12.5 MG CAPS 479238 HYDROCHLOROTHIAZIDE Inactive AMOXICILLIN 500 MG CAP 1 tab by mouth 3 times daily AMOXICILLIN 500 MG CAP 542202 AMOXICILLIN Inactive BACTRIM DS 800-160 MG TABS 1 pill by mouth twice daily, for UTI BACTRIM DS 800-160 MG TABS 346874 SULFAMETHOXAZOLE-TRIMETHOPRIM Inactive Advance Directives Directive Description Start [...] Panel - Chemistry sodium, serum 130 mmol/L 607-937 2360/10/19 potassium, serum 3.5 mmol/L 3.5-5.2 chloride, serum 92 mmol/L 98-107 carbon dioxide, venous blood 33.6 mmol/L 21.0-32.0 blood glucose 118 mg/dL 65-110 calcium, serum 8.8 mg/dL 8.5-10.1 urea nitrogen, blood 11 mg/dL 7-18 creatinine, serum 1.12 mg/dL 0.55-1.30 Lab Report: CBC-QUEST, COMPREHENSIVE METABOLIC PANEL, LIPID PANEL, Micro ... - Chemistry cholesterol, serum 162 mg/dL 988-380 6374/05/01 HDL cholesterol, serum 68 mg/dL > OR=46 [...] % 11.0-15.0 platelet count 297 THOUSAND/UL 10*3/mm3 711-032 9635/05/01 mean platelet volume 8.9 fL 7.5-12.5 Lab [...] 5.0-8.5 Encounters Code Encounter Date Provider Facility CPT-03830 Level 3 Est. Patient 13:55:49 CDT Jalil Hayes MD [facility]17202 Level 3 Est. Patient 14:38:15 CDT Jalil Hayes MD [facility]91200 Level 4 Est. Patient 14:40:54 CDT Bee Rosas [facility]192 Level 4 Est. Patient 10:31:15 CDT Jalil Hayes MD [facility]19461 Level 4 Est. Patient 15:07:54 CDT Mariaa Whitman [facility]52337 Level 3 Est. Patient 20:45:54 SUPERVISOR ACCOUNTING CLERKS Mariaa Whitman [facility]77272 Level 3 Est. Patient 12:16:16 CDT Ana Cristina Vallejo MD [facility]22990 Level 4 Est. Patient 12:49:21 CDT Ana Cristina Vallejo MD [facility]52717 Level 4 Est. Patient 23:02:25 CDT Ana Cristina Vallejo MD [facility]06189 Level 4 Est. Patient 19:26:33 SUPERVISOR ACCOUNTING CLERKS Ana Cristina Vallejo MD [facility]02049 Level 4 Est. Patient 11:28:14 CDT Ana Cristina Vallejo MD PhD [facility] CPT-17912 Level 4 Est. Patient 15:35:46 SUPERVISOR ACCOUNTING CLERKS Ana Cristina Vallejo MD PhD [facility] CPT-33269 Level 3 Est. Patient 21:06:39 SUPERVISOR ACCOUNTING CLERKS lAden Kim MD [facility] CPT-89210 Level 4 Est. Patient 15:30:54 SUPERVISOR ACCOUNTING CLERKS Ana Cristina Vallejo MD PhD [facility] Procedures Code Procedure Name Date Entry Date Standard Description CPT-TCMM Transitional Care Mgmt-Moderate 14:41:55 CDT CPT-10170 EKG Trac and Interp - XRAY USE ONLY 10:35:11 CDT 09/11 CPT-22752 Chest 2V Frontal and Lat - XRAY USE ONLY 10:35:11 CDT CPT-G0438 Initial Annual Wellness Exam 14:54:07 CDT CPT-G0009 Administration of Pneumococcal Vaccine 14:44:24 CDT CPT-19444 Pneumovax 23 Injection Injectable 25 MCG/0.5ML 14:44:24 CDT CPT-09113 First Vx - Ix admin for Medicare patients 14:44:24 CDT CPT-42655 Fluzone High-Dose Intramuscular Suspension 14:44:20 CDT CPT-26028 BMP - LAB USE ONLY 12:38:06 CDT CPT-40594 Urine Culture - LAB USE ONLY 16:56:33 CDT CPT-TCMM Transitional Care Mgmt-Moderate 18:08:16 CDT CPT-33721 Bone Density 09:14:12 CDT CPT-000 Give Appropriate Flu Vaccine 14:51:52 CDT CPT-27168 Fluzone High Dose (>=65 yrs.) 15:19:23 CDT CPT-76707 Immunization Single Admin 15:19:23 CDT CPT-43157 Prevnar 13 15:40:03 CDT CPT-84580 Administration single or combination vaccine inc oral 15 :40:03 CDT CPT-10676 Prevnar 13:55:07 CDT CPT-G0008 Administration of Influenza Virus Vaccine 10:49:51 CDT CPT-72626 Fluzone High-Dose Intramuscular Suspension 10:49:51 CDT CPT-55934 Knee 3V 13:31:37 CDT CPT-78151 Bone Density 09:07:05 SUPERVISOR ACCOUNTING CLERKS CPT-26870 Nail Avulsion 09:46:05 CDT CPT-74040 Administration single or combination vaccine inc oral 16 :11:54 CDT CPT-07197 Influenza High Dose age 65+ 16:11:54 CDT CPT-94613 Administration single or combination vaccine inc oral 10 :53:15 CDT CPT-11860 Influenza High Dose age 65+ 10:53:15 CDT CPT-52812 Bone Density 14:50:58 SUPERVISOR ACCOUNTING CLERKS CPT-53539 Administration single or combination vaccine inc oral 15 :41:20 SUPERVISOR ACCOUNTING CLERKS CPT-96362 Zoster Vaccine (Zostavax) 15:41:20 SUPERVISOR ACCOUNTING CLERKS CPT-40209 Spec Collection and Handling Fee 11:18:25 SUPERVISOR ACCOUNTING CLERKS CPT-32522 Administration single or combination vaccine inc oral 11 :14:20 CDT CPT-65583 Influenza High Dose age 65+ 11:14:20 CDT
--- OUTSIDE RECORDS SUMMARY | 2017-07-18 09:01 | XMS REPORT | Clinical Summary ---
Author Author Admin, DANDRE Organization [facility] Address Unknown Phone Unavailable Allergies, Adverse [...] by mouth twice daily, for UTI SULFAMETHOXAZOLE-TRIMETHOPRIM 09575865842 No Longer Active Ana Cristina Vallejo MD PhD Active HYDROCHLOROTHIAZIDE 12.5 MG CAPS 1 pill by mouth daily, for blood pressure HYDROCHLOROTHIAZIDE 56338712142 Active Mariaa Whitman APRN Active CARVEDILOL 25 MG TABS 1 pill by mouth twice daily for blood pressure CARVEDILOL 97184172216 Active Mariaa Yokum ASSOCIATE PROGRAMMER ANALYST Active SYNTHROID 0.088 MG TAB 1 tablet by mouth daily for thyroid LEVOTHYROXINE SODIUM 57147855989 Active Mariaa Yokum ASSOCIATE PROGRAMMER ANALYST Active AMOXICILLIN 500 MG CAP 1 tab by mouth 3 times daily AMOXICILLIN 53731227884 No Longer Active Alden Kim MD Active CVS VITAMIN D3 1000 UNIT CAPS TAKE 2 CAP DAILY CHOLECALCIFEROL 36670018911 Active Ana Cristina Vallejo MD PhD Active CALCIUM 500 MG TABS TAKE 3 TABS DAILY CALCIUM 73443141682 Active Aneta D Leo TAG AND LABEL CUTTER Active MULTIVITAMINS TABS TAKE 1 TAB DAILY MULTIPLE VITAMIN 90738999786 Active Aneta D Leo TAG AND LABEL CUTTER Active BENADRYL ALLERGY 25 MG TABS NEEDED DIPHENHYDRAMINE HCL 37077070217 Active Aneta D Leo TAG AND LABEL CUTTER Active TYLENOL 325 MG TABS NEEDED ACETAMINOPHEN 87766385345 Active Aneta D Leo TAG AND LABEL CUTTER Active ADVIL 200 MG TABS TAKE NEEDED IBUPROFEN 41561177532 Active Aneta D Elo TAG AND LABEL CUTTER Active ADULT ASPIRIN EC LOW STRENGTH 81 MG TBEC TAKE 1 TAB DAILY ASPIRIN 93533160791 Active Aneta D Leo TAG AND LABEL CUTTER Active VITAMIN E NATURAL 400 UNIT CAPS TAKE 1 CAP DAILY VITAMIN E 45076668447 Active Aneta D Leo TAG AND LABEL CUTTER Active GLUCOSAMINE-CHONDROITIN 500-400 MG TABS TAKE 1 TAB DAILY GLUCOSAMINE-CHONDROITIN 41480623310 Active Aneta D Leo TAG AND LABEL CUTTER Active NORVASC 10 MG TABS TAKE 1 TAB DAILY AMLODIPINE BESYLATE 08292825984 Active Mariaa Yokum ASSOCIATE PROGRAMMER ANALYST Active BENAZEPRIL HCL 40 MG TABS 1 PO BID BENAZEPRIL HCL 28604941984 Active Mariaa Yokum ASSOCIATE PROGRAMMER ANALYST Active LOVASTATIN 20 MG TABS 1 PO Q HS FOR CHOLESTEROL LOVASTATIN 55832035162 Active Mariaa Yokum ASSOCIATE PROGRAMMER ANALYST Active RANITIDINE HCL 150 MG CAPS 1 PO Q 12 HRS RANITIDINE HCL 57285935118 Active Mariaa Whitman ASSOCIATE PROGRAMMER ANALYST Active ALENDRONATE SODIUM 70 MG TABS TAKE 1 TAB ONCE A WEEK ALENDRONATE SODIUM 26707146163 Active Mariaa Whitman ASSOCIATE PROGRAMMER ANALYST Active AMOXICILLIN 500 MG CAP 1 tab by mouth 3 times daily AMOXICILLIN 500 MG CAP 470784 AMOXICILLIN Inactive BACTRIM DS 800-160 MG TABS 1 pill by mouth twice daily, for UTI BACTRIM DS 800-160 MG TABS 849135 SULFAMETHOXAZOLE-TRIMETHOPRIM Inactive Immunizations Vaccine Administration Date Value [...] E&M - 3141-9 181 [lb_av] Weight Measured Diagnostic Results Date Name Value Unit Range Description Lab Report: Basic Metabolic Panel - Chemistry sodium, serum 136 mmol/L 064-960 8405/03/24 potassium, serum 4.3 mmol/L 3.5-5.2 chloride, serum 98 mmol/L 98-107 carbon dioxide, venous blood 28.8 mmol/L 21.0-32.0 blood glucose 94 mg/dL 65-110 calcium, serum 9.5 mg/dL 8.5-10.1 urea nitrogen, blood 10 mg/dL 7-18 creatinine, serum 1.10 mg/dL 0.60-1.30 Lab Report: CBC, MICROALBUMIN - Chemistry albumin/creatinine [...] freeT4 - Chemistry sodium, serum 141 mmol/L 317-939 2570/03/13 potassium, serum 4.1 mmol/L 3.5-5.2 chloride, serum [...] 78 U/L 26-192 cholesterol, serum 143 mg/dL 608-201 4536/03/13 triglyceride, serum, fasting 60 mg/dL 30-200 HDL cholesterol, serum 72 mg/dL 32-96 LDL cholesterol, serum 59 mg/dL 0-130 TSH 1.33 m[iU]/mL 0.36-3.74 thyroxine, serum, free 1.18 ng/dL 0.76-1.46 Lab Report: MAGNESIUM/622, VITAMIN D, 25-HYDROXY/57307 - Chemistry vitamin D 25-hydroxy, serum 46 ng/mL 30-100 Lab Report: UADIP W/MICRO, AUTO - Chemistry [...] 5.0-8.5 Encounters Code Encounter Date Provider Facility CPT-00066 Level 3 Est. Patient 20:45:54 CLINICAL APPLICATION SPECIALIST Mariaa Whitman [facility] CPT-33433 Level 3 Est. Patient 12:16:16 CDT Ana Cristina Vallejo MD [facility]30782 Level 4 Est. Patient 12:49:21 CDT Ana Cristina Vallejo MD [facility]-41214 Level 4 Est. Patient 23:02:25 CDT Ana Cristina Vallejo MD [facility]-89451 Level 4 Est. Patient 19:26:33 CLINICAL APPLICATION SPECIALIST Ana Cristina Vallejo MD [facility]-00422 Level 4 Est. Patient 11:28:14 CDT Ana Cristina Vallejo MD [facility]-98580 Level 4 Est. Patient 15:35:46 CLINICAL APPLICATION SPECIALIST Ana Cristina Vallejo MD [facility]-82773 Level 3 Est. Patient 21:06:39 CLINICAL APPLICATION SPECIALIST Alden Kim MD [facility]-99298 Level 4 Est. Patient 15:30:54 CLINICAL APPLICATION SPECIALIST Ana Cristina Vallejo MD [facility] Procedures Code Procedure Name Date Entry Date Standard Description CPT-000 Give Appropriate Flu Vaccine 14:51:52 CDT CPT-14364 Fluzone High Dose (>=65 yrs.) 15:19:23 CDT CPT-96705 Immunization Single Admin 15:19:23 CDT CPT-08256 Prevnar 13 15:40:03 CDT CPT-56411 Administration single or combination vaccine inc oral 15 :40:03 CDT CPT-10930 Prevnar 13 13:55:07 CDT CPT-G0008 Administration of Influenza Virus Vaccine 10:49:51 CDT CPT-64360 Fluzone High-Dose Intramuscular Suspension 10:49:51 CDT CPT-76995 Knee 3V 13:31:37 CDT CPT-54762 Bone Density 09:07:05 CLINICAL APPLICATION SPECIALIST CPT-20094 Nail Avulsion 09:46:05 CDT CPT-22024 Administration single or combination vaccine inc oral 16 :11:54 CDT CPT-26357 Influenza High Dose age 65+ 16:11:54 CDT CPT-11340 Administration single or combination vaccine inc oral 10 :53:15 CDT CPT-67910 Influenza High Dose age 65+ 10:53:15 CDT CPT-13653 Bone Density 14:50:58 CLINICAL APPLICATION SPECIALIST CPT-95667 Administration single or combination vaccine inc oral 15 :41:20 CLINICAL APPLICATION SPECIALIST CPT-86140 Zoster Vaccine (Zostavax) 15:41:20 CLINICAL APPLICATION SPECIALIST CPT-94033 Spec Collection and Handling Fee 11:18:25 CLINICAL APPLICATION SPECIALIST CPT-18603 Administration single or combination vaccine inc oral 11 :14:20 CDT CPT-73477 Influenza High Dose age 65+ 11:14:20 CDT
--- OUTSIDE RECORDS SUMMARY | 2017-07-18 09:01 | XMS REPORT | Clinical Summary ---
Author Author Admin, DANDRE Organization [facility] Address Unknown Phone Unavailable Allergies, Adverse [...] by mouth twice daily, for UTI SULFAMETHOXAZOLE-TRIMETHOPRIM 99919981779 No Longer Active Ana Cristina Vallejo MD PhD Active HYDROCHLOROTHIAZIDE 12.5 MG CAPS 1 pill by mouth daily, for blood pressure HYDROCHLOROTHIAZIDE 23390568192 Active Mariaadomenico Whitman APRN Active CARVEDILOL 25 MG TABS 1 pill by mouth twice daily for blood pressure CARVEDILOL 58238039430 Active Mariaa Yokum BIRTHING NURSE Active SYNTHROID 0.088 MG TAB 1 tablet by mouth daily for thyroid LEVOTHYROXINE SODIUM 44258301437 Active Mariaa Laudee BIRTHING NURSE Active AMOXICILLIN 500 MG CAP 1 tab by mouth 3 times daily AMOXICILLIN 35508134265 No Longer Active lAden Kim MD Active CVS VITAMIN D3 1000 UNIT CAPS TAKE 2 CAP DAILY CHOLECALCIFEROL 60679278513 Active Ana Cristina Vallejo MD PhD Active CALCIUM 500 MG TABS TAKE 3 TABS DAILY CALCIUM 23794681574 Active Aneta D Leo ARC WELDER Active MULTIVITAMINS TABS TAKE 1 TAB DAILY MULTIPLE VITAMIN 25912846557 Active Aneta Tavarezum ARC WELDER Active BENADRYL ALLERGY 25 MG TABS NEEDED DIPHENHYDRAMINE HCL 73526595647 Active Aneta Singh Leo ARC WELDER Active TYLENOL 325 MG TABS NEEDED ACETAMINOPHEN 18641975938 Active Aneta Tavarezum ARC WELDER Active ADVIL 200 MG TABS TAKE NEEDED IBUPROFEN 25709426970 Active Aneta D Leo ARC WELDER Active ADULT ASPIRIN EC LOW STRENGTH 81 MG TBEC TAKE 1 TAB DAILY ASPIRIN 03648093568 Active Aneta Tavarezum ARC WELDER Active VITAMIN E NATURAL 400 UNIT CAPS TAKE 1 CAP DAILY VITAMIN E 58393034907 Active Aneta Tavarezum ARC WELDER Active GLUCOSAMINE-CHONDROITIN 500-400 MG TABS TAKE 1 TAB DAILY GLUCOSAMINE-CHONDROITIN 43707653119 Active Aneta Tavarezum ARC WELDER Active NORVASC 10 MG TABS TAKE 1 TAB DAILY AMLODIPINE BESYLATE 88470807093 Active Mariaa Whitman APRN Active BENAZEPRIL HCL 40 MG TABS 1 PO BID BENAZEPRIL HCL 44653920907 Active HEDY Esquivel Active LOVASTATIN 20 MG TABS 1 PO Q HS FOR CHOLESTEROL LOVASTATIN 74875687729 Active Mariaa Whitman APRN Active RANITIDINE HCL 150 MG CAPS 1 PO Q 12 HRS RANITIDINE HCL 03108905004 Active Mariaa Whitman BIRTHING NURSE Active ALENDRONATE SODIUM 70 MG TABS TAKE 1 TAB ONCE A WEEK ALENDRONATE SODIUM 35458338980 Active Mariaa Whitman BIRTHING NURSE Active AMOXICILLIN 500 MG CAP 1 tab by mouth 3 times daily AMOXICILLIN 500 MG CAP 684619 AMOXICILLIN Inactive BACTRIM DS 800-160 MG TABS 1 pill by mouth twice daily, for UTI BACTRIM DS 800-160 MG TABS 841110 SULFAMETHOXAZOLE-TRIMETHOPRIM Inactive Immunizations Vaccine Administration Date Value [...] 5.0-8.5 Encounters Code Encounter Date Provider Facility CPT-32822 Level 3 Est. Patient 20:45:54 PHOTOGRAPHIC SPOTTER Mariaa Whitman [facility] CPT-36789 Level 3 Est. Patient 12:16:16 CDT Ana Cristina Vallejo MD [facility] CPT-40435 Level 4 Est. Patient 12:49:21 CDT Ana Cristina Vallejo MD [facility] CPT-81243 Level 4 Est. Patient 23:02:25 CDT Ana Cristina Vallejo MD [facility] CPT-73016 Level 4 Est. Patient 19:26:33 PHOTOGRAPHIC SPOTTER Ana Cristina Vallejo MD [facility] CPT-24971 Level 4 Est. Patient 11:28:14 CDT Ana Cristina Vallejo MD [facility] CPT-02783 Level 4 Est. Patient 15:35:46 PHOTOGRAPHIC SPOTTER Ana Cristina Vallejo MD [facility] CPT-43012 Level 3 Est. Patient 21:06:39 PHOTOGRAPHIC SPOTTER Alden Kim MD [facility] CPT-72493 Level 4 Est. Patient 15:30:54 PHOTOGRAPHIC SPOTTER Ana Cristina Vallejo MD [facility] Procedures Code Procedure Name Date Entry Date Standard Description CPT-000 Give Appropriate Flu Vaccine 14:51:52 CDT CPT-88110 Fluzone High Dose (>=65 yrs.) 15:19:23 CDT CPT-18055 Immunization Single Admin 15:19:23 CDT CPT-48193 Prevnar 13 15:40:03 CDT CPT-96943 Administration single or combination vaccine inc oral 15 :40:03 CDT CPT-81394 Prevnar 13 13:55:07 CDT CPT-G0008 Administration of Influenza Virus Vaccine 10:49:51 CDT CPT-50374 Fluzone High-Dose Intramuscular Suspension 10:49:51 CDT CPT-22834 Knee 3V 13:31:37 CDT CPT-36462 Bone Density 09:07:05 PHOTOGRAPHIC SPOTTER CPT-21151 Nail Avulsion 09:46:05 CDT CPT-12878 Administration single or combination vaccine inc oral 16 :11:54 CDT CPT-69047 Influenza High Dose age 65+ 16:11:54 CDT CPT-09219 Administration single or combination vaccine inc oral 10 :53:15 CDT CPT-62050 Influenza High Dose age 65+ 10:53:15 CDT CPT-83540 Bone Density 14:50:58 PHOTOGRAPHIC SPOTTER CPT-67734 Administration single or combination vaccine inc oral 15 :41:20 PHOTOGRAPHIC SPOTTER CPT-75073 Zoster Vaccine (Zostavax) 15:41:20 PHOTOGRAPHIC SPOTTER CPT-18991 Spec Collection and Handling Fee 11:18:25 PHOTOGRAPHIC SPOTTER CPT-66977 Administration single or combination vaccine inc oral 11 :14:20 CDT CPT-07991 Influenza High Dose age 65+ 11:14:20 CDT
--- OUTSIDE RECORDS SUMMARY | 2017-07-18 09:02 | XMS REPORT | Clinical Summary ---
Author Author Admin, DANDRE Organization [facility] Address Unknown Phone Unavailable Allergies, Adverse Reactions, Alerts Allergy Name Reaction Description Start Date Severity Status Provider NKDA Critical Active Mariaa Whitman FISHERIES ENFORCEMENT OFFICER Conditions or Problems Problem Name Problem [...] Sciatica Urinary bladder pain 788.99 Resolved Jalil Hayse MD Other symptoms involving urinary system UTI [...] 1 daily, for vitamin D deficiency CHOLECALCIFEROL 87673329871 No Longer Active Radha Jones APRN Active CIPRO 250 MG ORAL TABLET 1 tab BID for 7 days CIPROFLOXACIN HCL 28888433249 No Longer Active Radha Jones APRN Active VITAMIN D3 2000 UNIT ORAL CAPSULE 1 capsule po daily CHOLECALCIFEROL 87651857399 Active HEDY Esquivel Active EQL ONE DAILY WOMENS ORAL TABLET 1 po daily MULTIPLE VITAMINS- CALCIUM 90798273839 Active HEDY Esquivel Active MACROBID 100 MG ORAL CAPSULE 1 tab BID for 5 days NITROFURANTOIN MONOHYD MACRO 15334144458 No Longer Active Deepti Junior LPN Active HYDROCHLOROTHIAZIDE 12.5 MG ORAL CAPSULE 1 pill by mouth daily HYDROCHLOROTHIAZIDE 65465172824 Active Jalil Hayes MD Active RANITIDINE HCL 150 MG ORAL CAPSULE once nightly RANITIDINE HCL 03919300812 Active Jalil Hayes MD Active BENAZEPRIL HCL 40 MG ORAL TABLET 1 daily for blood pressure BENAZEPRIL HCL 14157111158 Active Jalil Hayes MD Active HYDROCHLOROTHIAZIDE 12.5 MG ORAL CAPSULE 1 pill by mouth daily, for blood pressure HYDROCHLOROTHIAZIDE 00072829454 No Longer Active Jalil Hayes MD Active AUGMENTIN 875-125 MG ORAL TABLET 1 po BID x 7 days AMOXICILLIN-POT CLAVULANATE 67559613903 No Longer Active Jalil Hayes MD Active OMEPRAZOLE 40 MG ORAL CAPSULE DELAYED RELEASE 1 po q a.m. OMEPRAZOLE 91856017155 Active Peggy Pardo LPN Active MIRALAX ORAL PACKET Takes daily prn POLYETHYLENE GLYCOL 3350 92296615646 No Longer Active Peggy Pardo LPN Active FLONASE ALLERGY RELIEF 50 MCG/ACT NASAL SUSPENSION One spray each nostril daily for allergies FLUTICASONE PROPIONATE 08180121688 No Longer Active Peggy Pardo LPN Active BENADRYL ALLERGY 25 MG ORAL TABLET NEEDED DIPHENHYDRAMINE HCL 83076027183 No Longer Active Peggy Pardo LPN Active ADVIL 200 MG ORAL TABLET TAKE NEEDED IBUPROFEN 70031333107 No Longer Active Peggy Pardo LPN Active COLACE 100 MG ORAL CAPSULE 1 po BID PRN Constipation DOCUSATE SODIUM 32243986936 No Longer Active Deepti Junior LPN Active ALPRAZOLAM 0.25 MG ORAL TABLET 1/2-1 tablet by mouth twice a day as needed for stress ALPRAZOLAM 69765186199 No Longer Active Deepti Hamlinjaja HORAVTH Active ALENDRONATE SODIUM 70 MG ORAL TABLET 1 pill by mouth weekly for osteoporosis ALENDRONATE SODIUM 76941237910 Active Mariaa Laudee LUGO Active E-1000 1000 UNIT ORAL CAPSULE Take one by mouth daily VITAMIN E 18560585836 Active HEDY Esquivel Active OSCAL 500/200 D-3 500-200 MG-UNIT ORAL TABLET Take one by mouth 3 times daily , morning, afternoon and evening.] CALCIUM CARBONATE-VITAMIN D 17768469625 Active HEDY Esquivel Active ASPIRIN 81 MG ORAL TABLET CHEWABLE 1 tablet by mouth daily ASPIRIN 35600279032 Active HEDY Esquivel Active ADULT ASPIRIN EC LOW STRENGTH 81 MG ORAL TABLET DELAYED RELEASE TAKE 1 TAB DAILY ASPIRIN 94065457484 No Longer Active Mariaa Laudee LUGO Active ALENDRONATE SODIUM 70 MG ORAL TABLET TAKE 1 TAB ONCE A WEEK 01/20 ALENDRONATE SODIUM 98386475126 No Longer Active Mariaa Atkinsonbeckie LUGO Active CETIRIZINE HCL 10 MG ORAL TABLET 1 po qd PRN Allergies CETIRIZINE HCL 37094921864 Active HEDY Esquivel Active BACTRIM DS 800-160 MG ORAL TABLET 1 pill by mouth twice daily, for UTI 01/29 SULFAMETHOXAZOLE-TRIMETHOPRIM 28523835534 No Longer Active Ana Cristina Vallejo MD PhD Active CARVEDILOL 25 MG ORAL TABLET 1 pill by mouth twice daily for blood pressure CARVEDILOL 97452835926 Active Aneta Bailey LPN Active SYNTHROID 88 MCG ORAL TABLET 1 tablet by mouth daily for thyroid LEVOTHYROXINE SODIUM 82945469621 Active HEDY Esquivel Active AMOXICILLIN 500 MG ORAL CAPSULE 1 tab by mouth 3 times daily 2011 AMOXICILLIN 79176734861 No Longer Active Alden Kim MD Active CALCIUM 500 MG ORAL TABLET TAKE 3 TABS DAILY CALCIUM 14632690920 No Longer Active Mariaa Whitman FISHERIES ENFORCEMENT OFFICER Active MULTIVITAMINS TABS TAKE 1 TAB DAILY MULTIPLE VITAMIN No Longer Active Anetajeannie Tavarezum LAUNDRY AID Active TYLENOL 325 MG ORAL TABLET NEEDED ACETAMINOPHEN 65550204890 Active Aneta Tavarezum LAUNDRY AID Active GLUCOSAMINE-CHONDROITIN 500-400 MG ORAL TABLET TAKE 1 TAB DAILY GLUCOSAMINE-CHONDROITIN 21773103583 Active Aneta Tavarezum LAUNDRY AID Active NORVASC 10 MG ORAL TABLET TAKE 1 TAB DAILY AMLODIPINE BESYLATE 05511423076 Active Aneta Tavarezum LAUNDRY AID Active LOVASTATIN 20 MG ORAL TABLET 1 PO Q HS FOR CHOLESTEROL LOVASTATIN 97285046215 Active HEDY Esquivel Active ALENDRONATE SODIUM 70 MG ORAL TABLET TAKE 1 TAB ONCE A WEEK 01/20 ALENDRONATE SODIUM 70 MG ORAL TABLET 696513 ALENDRONATE SODIUM Inactive ADULT ASPIRIN EC LOW STRENGTH 81 MG ORAL TABLET DELAYED RELEASE TAKE 1 TAB DAILY ADULT ASPIRIN EC LOW STRENGTH 81 MG ORAL TABLET DELAYED RELEASE 058439 ASPIRIN Inactive ALPRAZOLAM 0.25 MG ORAL TABLET 1/2-1 tablet by mouth twice a day as needed for stress ALPRAZOLAM 0.25 MG ORAL TABLET 365314 ALPRAZOLAM Inactive COLACE 100 MG ORAL CAPSULE 1 po BID PRN Constipation COLACE 100 MG ORAL CAPSULE 4838125 DOCUSATE SODIUM Inactive ADVIL 200 MG ORAL TABLET TAKE NEEDED ADVIL 200 MG ORAL TABLET 956314 IBUPROFEN Inactive BENADRYL ALLERGY 25 MG ORAL TABLET NEEDED BENADRYL ALLERGY 25 MG ORAL TABLET 1902974 DIPHENHYDRAMINE HCL Inactive FLONASE ALLERGY RELIEF 50 MCG/ACT NASAL SUSPENSION One spray each nostril daily for allergies FLONASE ALLERGY RELIEF 50 MCG/ACT NASAL SUSPENSION 8732271 FLUTICASONE PROPIONATE Inactive MIRALAX ORAL PACKET Takes daily prn MIRALAX ORAL PACKET 174068 POLYETHYLENE GLYCOL 3350 Inactive AUGMENTIN 875-125 MG ORAL TABLET 1 po BID x 7 days AUGMENTIN 875-125 MG ORAL TABLET 802134 AMOXICILLIN-POT CLAVULANATE Inactive HYDROCHLOROTHIAZIDE 12.5 MG ORAL CAPSULE 1 pill by mouth daily, for blood pressure HYDROCHLOROTHIAZIDE 12.5 MG ORAL CAPSULE HYDROCHLOROTHIAZIDE Inactive CIPRO 250 MG ORAL TABLET 1 tab BID for 7 days CIPRO 250 MG ORAL TABLET 404371 CIPROFLOXACIN HCL Inactive VITAMIN D3 2000 UNIT ORAL TABLET 1 daily, for vitamin D deficiency VITAMIN D3 2000 UNIT ORAL TABLET CHOLECALCIFEROL Inactive AMOXICILLIN 500 MG ORAL CAPSULE 1 tab by mouth 3 times daily 2011 AMOXICILLIN 500 MG ORAL CAPSULE 339706 AMOXICILLIN Inactive BACTRIM DS 800-160 MG ORAL TABLET 1 pill by mouth twice daily, for UTI 01/29 BACTRIM DS 800-160 MG ORAL TABLET 522359 SULFAMETHOXAZOLE- TRIMETHOPRIM Inactive MACROBID 100 MG ORAL CAPSULE 1 tab BID for 5 days MACROBID 100 MG ORAL CAPSULE 2010384 NITROFURANTOIN MONOHYD MACRO Inactive Advance Directives Directive [...] Panel - Chemistry sodium, serum 132 mmol/L 617-540 7253/08/09 potassium, serum 4.2 mmol/L 3.5-5.2 chloride, serum 99 mmol/L 98-107 carbon dioxide, venous blood 24.7 mmol/L 21.0-32.0 blood glucose 119 mg/dL 65-110 calcium, serum 8.5 mg/dL 8.5-10.1 urea nitrogen, blood 14 mg/dL 7-18 creatinine, serum 1.16 mg/dL 0.60-1.30 Lab Report: CBC-QUEST, COMPREHENSIVE METABOLIC PANEL, LIPID PANEL, Micro ... - Chemistry cholesterol, serum 162 mg/dL 756-836 2458/05/01 HDL cholesterol, serum 68 mg/dL > OR=46 [...] % 11.0-15.0 platelet count 297 THOUSAND/UL 10*3/mm3 336-308 2791/05/01 mean platelet volume 8.9 fL 7.5-12.5 Lab [...] 5.0-8.5 Encounters Code Encounter Date Provider Facility [facility]-[id number] Level 3 Est. Patient 13:55:49 CDT Jalil Hayes MD [facility]-74438 Level 3 Est. Patient 14:38:15 CDT Jalil Hayes MD [facility]29265 Level 4 Est. Patient 14:40:54 CDT Bee Rosas [facility]-17565 Level 4 Est. Patient 10:31:15 CDT Jalil Hayes MD [facility]-12825 Level 4 Est. Patient 15:07:54 CDT Mariaa Whitman [facility]-35958 Level 3 Est. Patient 20:45:54 CONDOMINIUM PROPERTY MANAGER Mariaa Whitman [facility] CPT-31694 Level 3 Est. Patient 12:16:16 CDT Ana Cristina Vallejo MD [facility]-22660 Level 4 Est. Patient 12:49:21 CDT Ana Cristina Vallejo MD [facility]28890 Level 4 Est. Patient 23:02:25 CDT Ana Cristina Vallejo MD [facility]33988 Level 4 Est. Patient 19:26:33 CONDOMINIUM PROPERTY MANAGER Ana Cristina Vallejo MD PhD [facility] CPT-78370 Level 4 Est. Patient 11:28:14 CDT Ana Cristina Vallejo MD PhD [facility] CPT-51094 Level 4 Est. Patient 15:35:46 CONDOMINIUM PROPERTY MANAGER Ana Cristina Vallejo MD PhD [facility] CPT-23360 Level 3 Est. Patient 21:06:39 CONDOMINIUM PROPERTY MANAGER Alden Kim MD [facility] CPT-54635 Level 4 Est. Patient 15:30:54 CONDOMINIUM PROPERTY MANAGER nAa Cristina Vallejo MD PhD [facility] Procedures Code Procedure Name Date Entry Date Standard Description CPT-G0439 Subsequent Annual Wellness Exam 11:53:01 CONDOMINIUM PROPERTY MANAGER CPT-01233 First Vx - Ix admin for Medicare patients 13:35:01 CDT CPT-23673 Fluzone High-Dose Intramuscular Suspension 13:35:01 CDT CPT-TCMM Transitional Care Mgmt-Moderate 14:41:55 CDT CPT-36241 EKG Trac and Interp - XRAY USE ONLY 10:35:11 CDT 09/11 CPT-44037 Chest 2V Frontal and Lat - XRAY USE ONLY 10:35:11 CDT CPT-G0438 Initial Annual Wellness Exam 14:54:07 CDT CPT-G0009 Administration of Pneumococcal Vaccine 14:44:24 CDT CPT-15607 Pneumovax 23 Injection Injectable 25 MCG/0.5ML 14:44:24 CDT CPT-65171 First Vx - Ix admin for Medicare patients 14:44:24 CDT CPT-66601 Fluzone High-Dose Intramuscular Suspension 14:44:20 CDT CPT-61947 BMP - LAB USE ONLY 12:38:06 CDT CPT-64136 Urine Culture - LAB USE ONLY 16:56:33 CDT CPT-TCMM Transitional Care Mgmt-Moderate 18:08:16 CDT CPT-98301 Bone Density 09:14:12 CDT CPT-000 Give Appropriate Flu Vaccine 14:51:52 CDT CPT-74051 Fluzone High Dose (>=65 yrs.) 15:19:23 CDT CPT-99159 Immunization Single Admin 15:19:23 CDT CPT-90601 Prevnar 13 15:40:03 CDT CPT-02425 Administration single or combination vaccine inc oral 15 :40:03 CDT CPT-47866 Prevnar 13 13:55:07 CDT CPT-G0008 Administration of Influenza Virus Vaccine 10:49:51 CDT CPT-62952 Fluzone High-Dose Intramuscular Suspension 10:49:51 CDT CPT-32896 Knee 3V 13:31:37 CDT CPT-57402 Bone Density 09:07:05 CONDOMINIUM PROPERTY MANAGER CPT-78798 Nail Avulsion 09:46:05 CDT CPT-16539 Administration single or combination vaccine inc oral 16 :11:54 CDT CPT-06333 Influenza High Dose age 65+ 16:11:54 CDT CPT-29744 Administration single or combination vaccine inc oral 10 :53:15 CDT CPT-81112 Influenza High Dose age 65+ 10:53:15 CDT CPT-40419 Bone Density 14:50:58 CONDOMINIUM PROPERTY MANAGER CPT-62741 Administration single or combination vaccine inc oral 15 :41:20 CONDOMINIUM PROPERTY MANAGER CPT-89119 Zoster Vaccine (Zostavax) 15:41:20 CONDOMINIUM PROPERTY MANAGER CPT-82036 Spec Collection and Handling Fee 11:18:25 CONDOMINIUM PROPERTY MANAGER CPT-80131 Administration single or combination vaccine inc oral 11 :14:20 CDT CPT-21979 Influenza High Dose age 65+ 11:14:20 CDT
--- OUTSIDE RECORDS SUMMARY | 2017-07-18 09:03 | XMS REPORT ---
Author Author [facility] Medical Staff Organization [facility] Address [address] [place], [place] [id number] Phone [phone] Care Team Providers Care Lead Pastor Name Role Phone MARCIO AGUAYO, LEANDRO PP [phone] Summary purpose TRANSITION OF CARE AUTO GENERATION Chief Complaint and Reason for Visit Admit Diagnosis 1 OTHER MALAISE & FATIGUE Problem list No authorized problems tracked for [...] tests and/or laboratory data RESULTS Routine Urinalysis [id number]:50:00 Result Normal Range Units Color YELLOW Clarity Hazy Specific Paguate 1.007 Refractometer Result pH 7.0 4.5-8.0 Glucose NEGATIVE Bilirubin NEGATIVE Ketones NEGATIVE Protein TRACE Urobilinogen 0.2 0-0.2 E.U./dL Nitrites NEGATIVE Blood 1+ Leukocytes 2+ WBCs 20-30 RBCs 0-5 Squamous Epithelial Few Bacteria 1+ Routine Cultures [id number]:11:00 Urine Culture Plate Date and Time 11/23/2014 20:11 SourceURINE CULTURE REPORT >100,000 colonies/ml Gram Negative Rods ID & Sensitivity to follow Release Date/Time: 11/24/2014 07:41 ORGID #1:>100,000 colonies/ml ESCHERICHIA COLI Release Date/Time: 11/25/2014 08:04 Sensitivity #1: ESCCOL AMPICILLIN > 16R AMOX CLAV<=8/4 S AZTREONAM<=8S CEFTRIAXONE<=8S CEFTAZIDIME<=1S CEFOTAXIME <=2S CEFOXITIN<=8S CEFAZOLIN<=8S CIPROFLOXACIN<=1S CEFEPIME <=8S CEFUROXIME <=4S ERTAPENEM<=2S NITROFURANTOIN <=32 S GENTAMICIN <=4S AMPICILLIN SULBACTAM >16/8 R IMIPENEM <=4S LEVOFLOXACIN <=2S MEROPENEM<=4S TRIMETHSULFA >2 R TETRACYCLINE <=4S PIPTAZO<=16 S Chemistry :50:00 Result Normal Range Units Sodium L 125 134-145 mEq/l Potassium 3.5 3.5-5.1 mEq/l Chloride L 88 98-107 mEq/l CO2 24.2 22-28 mEq/l Glucose H 123 70-105 mg/dl BUN H 31 7-18 mg/dl Creatinine H 1.90 0.6-1.0 mg/dl Calcium H 10.3 8.4-10.2 mg/dl TP - Total Protein 6.2 6.0-8.3 g/dl Albumin L 3.0 3.5-5 g/dl Bilirubin - Total 0.4 0.1-1.0 mg/dl AST 36 10-42 IU/L ALT 29 12-65 IU/L ALP 65 25-72 IU/L Osmolality L 259.4 280-300 mOsm/L Albumin/Globulin Ratio 0.9 0-8 Anion GAP 12.8 8-16 BUN/Creatinine Ratio 16.3 10-20 Estimated GFR L 25 >=60 mL/min/1.7 Hematology :50:00 Result Normal Range Units WBC H 14.1 4.8-10.8 103/uL RBC L 3.4 4.2-5.4 106/uL HGB L 10.5 12.0-16.0 g/dl HCT L 29.9 36.9-47.0 % MCV 87.2 81-99 FL MCH 30.6 27-31 pg MCHC 35.1 33-37 g/dl RDW 12.4 11.5-15.5 % PLT 205 130-400 103/uL MPV H 10.6 7.3-10.4 FL Segs H 87.0 40-70 % Bands H 8.0 0-5 % Lymphs L 1.0 20-40 % Ashley 4.0 0-10 % Body Fluid :50:00 Result Normal Range Units pH 7.0 4.5-8.0 Radiology Results :50:00 Result Normal Range Units MPV H 10.6 7.3-10.4 FL History of procedures Procedure Code Code Type Description Date Performed Performing Physician 23226 CPT-4 COMPREHEN METABOLIC PANEL 11-23-2014 ALFREDO SIMPSON 20820 CPT-4 URINALYSIS, AUTO W/SCOPE 11-23-2014 ALFREDO SIMPSON 65770 CPT-4 URINE CULTURE/COLONY COUNT 11-23-2014 ALFREDO SIMPSON A9270 CPT-4 NON-COVERED ITEM OR SERVICE 11-23-2014 ALFREDO SIMPSON 91356 CPT-4 ROUTINE VENIPUNCTURE 11-23-2014 ALFREDO SIMPSON 11733 CPT-4 COMPLETE CBC, AUTOMATED 11-23-2014 ALFREDO SIMPSON 90544 CPT-4 BL SMEAR W/DIFF WBC COUNT 11-23-2014 ALFREDO SIMPSON 06359 CPT-4 CULTURE AEROBIC IDENTIFY 11-23-2014 ALFREDO SIMPSON 40636 CPT-4 MICROBE SUSCEPTIBLE, ISIDRA 11-23-2014 ALFREDO SIMPSON 68302 CPT-4 EMERGENCY DEPT VISIT 11-23-2014 ALFREDO SIMPSON 97307 CPT-4 EMERGENCY DEPT VISIT 11-23-2014 ALFREDO SIMPSON Functional status Functional Status Finding Observation Time Diet regular [id number]:13 Abdomen Appearance round [id number]:13 Abdomen soft :13 Bowel Sounds present :13 Galloway no :13 Urination normal :13 Quality sym/unlabored :13 Cough absent :13 Breath Sounds RUL clear :13 Breath Sounds RML clear :13 Breath Sounds RLL clear :13 Breath Sounds VALERIE clear :13 Breath Sounds LLL clear :13 Airway natural :13 Chest Tube no :13 Oxygen no :00 Nursing Note Ready for home. Discharge instructions reviewed with patient and family. Assisted patient in getting dressed and into the wheelchair. :00 Vital signs Type Value Date Respiration Rate 20breaths per minute :00 Pulse 88beats per minute :00 Oxygen Saturation 96% :00 BP Systolic 154mmHg :00 BP Diastolic 56mmHg : Temperature 98.4F : Social history No Social History or smoking status observations were recorded for this visit. ( Unknown if ever smoked.) Treatment Plan No treatment plan text is available for this visit. Hospital discharge instructions Dismissal Condition fair Disposition on DC home DC Inst/Educ Give yes Med/Side Effects Rev yes PNE Vac couple years Flu Vac 2013
--- OUTSIDE RECORDS SUMMARY | 2017-07-18 09:03 | XMS REPORT | Clinical Summary ---
Author Author Admin, QIE Organization [facility] Address Unknown Phone Unavailable Allergies, Adverse Reactions, [...] each nostril daily for allergies FLUTICASONE PROPIONATE 31571002170 Active Mariaa Antonette SWARTZN Active CETIRIZINE HCL 10 MG ORAL TABS 1 po qd PRN Allergies CETIRIZINE HCL 36606195800 Active Mariaa Yokum FORESTRY FIRE AID Active BACTRIM DS 800-160 MG TABS 1 pill by mouth twice daily, for UTI SULFAMETHOXAZOLE-TRIMETHOPRIM 58341230000 No Longer Active Ana Cristina Vallejo MD PhD Active HYDROCHLOROTHIAZIDE 12.5 MG CAPS 1 pill by mouth daily, for blood pressure HYDROCHLOROTHIAZIDE 92192111308 Active Mariaa Antonette FORESTRY FIRE AID Active CARVEDILOL 25 MG TABS 1 pill by mouth twice daily for blood pressure CARVEDILOL 72575830267 Active Mariaa Lauxuanbeckie FORESTRY FIRE AID Active SYNTHROID 0.088 MG TAB 1 tablet by mouth daily for thyroid LEVOTHYROXINE SODIUM 19662780664 Active Mariaa Antonette SWARTZN Active AMOXICILLIN 500 MG CAP 1 tab by mouth 3 times daily AMOXICILLIN 12316358628 No Longer Active Alden Kim MD Active [facility] VITAMIN D3 1000 UNIT CAPS TAKE 2 CAP DAILY CHOLECALCIFEROL 41709078369 Active Ana Cristina Vallejo MD PhD Active CALCIUM 500 MG TABS TAKE 3 TABS DAILY CALCIUM 30719042407 Active Aneta Tavarezum WAITSTAFF Active MULTIVITAMINS TABS TAKE 1 TAB DAILY MULTIPLE VITAMIN 24896964667 Active Aneta Tavarezum WAITSTAFF Active BENADRYL ALLERGY 25 MG TABS NEEDED DIPHENHYDRAMINE HCL 89037000849 Active Aneta Tavarezum WAITSTAFF Active TYLENOL 325 MG TABS NEEDED ACETAMINOPHEN 21180374876 Active Aneta Tavarezum WAITSTAFF Active ADVIL 200 MG TABS TAKE NEEDED IBUPROFEN 93213655329 Active Aneta Tavarezum WAITSTAFF Active ADULT ASPIRIN EC LOW STRENGTH 81 MG TBEC TAKE 1 TAB DAILY ASPIRIN 21169403601 Active Aneta Tavarezum WAITSTAFF Active VITAMIN E NATURAL 400 UNIT CAPS TAKE 1 CAP DAILY VITAMIN E 55464306786 Active Aneta Tavarezum WAITSTAFF Active GLUCOSAMINE-CHONDROITIN 500-400 MG TABS TAKE 1 TAB DAILY GLUCOSAMINE-CHONDROITIN 73868946833 Active Aneta Tavarezum WAITSTAFF Active NORVASC 10 MG TABS TAKE 1 TAB DAILY AMLODIPINE BESYLATE 41466928503 Active Mariaa Whitman FORESTRY FIRE AID Active BENAZEPRIL HCL 40 MG TABS 1 PO BID BENAZEPRIL HCL 01128889213 Active Mariaa Whitman FORESTRY FIRE AID Active LOVASTATIN 20 MG TABS 1 PO Q HS FOR CHOLESTEROL LOVASTATIN 42696549041 Active Mariaa Whitman FORESTRY FIRE AID Active RANITIDINE HCL 150 MG CAPS 1 PO Q 12 HRS RANITIDINE HCL 63467035670 Active Mariaa Whitman FORESTRY FIRE AID Active ALENDRONATE SODIUM 70 MG TABS TAKE 1 TAB ONCE A WEEK ALENDRONATE SODIUM 25144456662 Active Mariaa Whitman FORESTRY FIRE AID Active AMOXICILLIN 500 MG CAP 1 tab by mouth 3 times daily AMOXICILLIN 500 MG CAP 852957 AMOXICILLIN Inactive BACTRIM DS 800-160 MG TABS 1 pill by mouth twice daily, for UTI BACTRIM DS 800-160 MG TABS 113102 SULFAMETHOXAZOLE-TRIMETHOPRIM Inactive Immunizations Vaccine Administration Date Value [...] 1.41 ng/dL 0.76-1.46 cholesterol, serum 166 mg/dL 908-842 2770/04/20 triglyceride, serum, fasting 68 mg/dL 30-200 HDL cholesterol, serum 88 mg/dL 32-96 LDL cholesterol, serum 64 mg/dL 0-130 sodium, serum 132 mmol/L 085-109 6415/04/20 carbon dioxide, venous blood 31.3 mmol/L 21.0-32.0 [...] Negative Encounters Code Encounter Date Provider Facility CPT-64800 Level 4 Est. Patient 15:07:54 CDT Mariaa Whitman [facility] CPT-29795 Level 3 Est. Patient 20:45:54 NON DESTRUCTIVE EVALUATION SPECIALIST Mariaa Whitman [facility] CPT-99947 Level 3 Est. Patient 12:16:16 CDT Ana Cristina Vallejo MD PhD [facility] CPT-25132 Level 4 Est. Patient 12:49:21 CDT Ana Cristina Vallejo MD [facility] CPT-74881 Level 4 Est. Patient 23:02:25 CDT Ana Cristina Vallejo MD [facility] CPT-37303 Level 4 Est. Patient 19:26:33 NON DESTRUCTIVE EVALUATION SPECIALIST Ana Cristina Vallejo MD [facility] CPT-96083 Level 4 Est. Patient 11:28:14 CDT Ana Cristina Vallejo MD [facility] CPT-96617 Level 4 Est. Patient 15:35:46 NON DESTRUCTIVE EVALUATION SPECIALIST Ana Cristina Vallejo MD [facility] CPT-07139 Level 3 Est. Patient 21:06:39 NON DESTRUCTIVE EVALUATION SPECIALIST Alden Kim MD [facility] CPT-00473 Level 4 Est. Patient 15:30:54 NON DESTRUCTIVE EVALUATION SPECIALIST Ana Cristina Vallejo MD [facility] Procedures Code Procedure Name Date Entry Date Standard Description CPT-77877 Bone Density 09:14:12 CDT CPT-000 Give Appropriate Flu Vaccine 14:51:52 CDT CPT-92393 Fluzone High Dose (>=65 yrs.) 15:19:23 CDT CPT-14012 Immunization Single Admin 15:19:23 CDT CPT-07414 Prevnar 13 15:40:03 CDT CPT-28375 Administration single or combination vaccine inc oral 15 :40:03 CDT CPT-18282 Prevnar 13 13:55:07 CDT CPT-G0008 Administration of Influenza Virus Vaccine 10:49:51 CDT CPT-03256 Fluzone High-Dose Intramuscular Suspension 10:49:51 CDT CPT-22343 Knee 3V 13:31:37 CDT CPT-99521 Bone Density 09:07:05 NON DESTRUCTIVE EVALUATION SPECIALIST CPT-30704 Nail Avulsion 09:46:05 CDT CPT-80344 Administration single or combination vaccine inc oral 16 :11:54 CDT CPT-90799 Influenza High Dose age 65+ 16:11:54 CDT CPT-09704 Administration single or combination vaccine inc oral 10 :53:15 CDT CPT-06226 Influenza High Dose age 65+ 10:53:15 CDT CPT-87837 Bone Density 14:50:58 NON DESTRUCTIVE EVALUATION SPECIALIST CPT-83533 Administration single or combination vaccine inc oral 15 :41:20 NON DESTRUCTIVE EVALUATION SPECIALIST CPT-64966 Zoster Vaccine (Zostavax) 15:41:20 NON DESTRUCTIVE EVALUATION SPECIALIST CPT-67310 Spec Collection and Handling Fee 11:18:25 NON DESTRUCTIVE EVALUATION SPECIALIST CPT-34460 Administration single or combination vaccine inc oral 11 :14:20 CDT CPT-52152 Influenza High Dose age 65+ 11:14:20 CDT
--- OUTSIDE RECORDS SUMMARY | 2017-07-18 09:03 | XMS REPORT | Clinical Summary ---
Author Author Admin, QIE Organization [facility] Address Unknown Phone Unavailable Allergies, Adverse Reactions, Alerts Allergy Name Reaction Description Start Date Severity Status Provider No Known Allergies Jackelin Barth RPT,RMA Conditions or Problems Problem Name Problem Code [...] urinary system UTI 599.0 Active Ana Cristina Valleoj MD PhD Urinary tract infection, site not [...] by mouth weekly for osteoporosis ALENDRONATE SODIUM 49201328402 Active Brianda Reis RMA Active E-1000 1000 UNIT ORAL CAPS Take one by mouth daily VITAMIN E 92635323053 Active Brianda KNOTT Active OSCAL 500/200 D-3 500-200 MG-UNIT ORAL TABS Take one by mouth 3 times daily, morning, afternoon and evening.] CALCIUM CARBONATE-VITAMIN D 21058309208 Active Brianda KNOTT Active ASPIRIN 81 MG CHEW TAB 1 tablet by mouth daily ASPIRIN 78129564483 Active Brianda RICK Active ADULT ASPIRIN EC LOW STRENGTH 81 MG TBEC TAKE 1 TAB DAILY ASPIRIN 02605645707 No Longer Active Mariaa Whitman APRN Active ALENDRONATE SODIUM 70 MG TABS TAKE 1 TAB ONCE A WEEK ALENDRONATE SODIUM 46006663237 No Longer Active Mariaa Whitman APRN Active FLONASE ALLERGY RELIEF 50 MCG/ACT NASAL SUSP One spray each nostril daily for allergies FLUTICASONE PROPIONATE 13121231720 Active Mariaa Whitman APRN Active CETIRIZINE HCL 10 MG ORAL TABS 1 po qd PRN Allergies CETIRIZINE HCL 19323981247 Active Mariaa Whitman APRN Active BACTRIM DS 800-160 MG TABS 1 pill by mouth twice daily, for UTI SULFAMETHOXAZOLE-TRIMETHOPRIM 60925346983 No Longer Active Ana Cristina Vallejo MD PhD Active HYDROCHLOROTHIAZIDE 12.5 MG CAPS 1 pill by mouth daily, for blood pressure HYDROCHLOROTHIAZIDE 50003351256 Active Mariaa Whitman APRN Active CARVEDILOL 25 MG TABS 1 pill by mouth twice daily for blood pressure CARVEDILOL 02274083976 Active Mariaa Whitman APRN Active SYNTHROID 0.088 MG TAB 1 tablet by mouth daily for thyroid LEVOTHYROXINE SODIUM 08606504690 Active Mariaa Whitman APRN Active AMOXICILLIN 500 MG CAP 1 tab by mouth 3 times daily AMOXICILLIN 04756014547 No Longer Active Alden Kim MD Active CVS VITAMIN D3 1000 UNIT CAPS TAKE 2 CAP DAILY CHOLECALCIFEROL Active Ana Cristina Vallejo MD PhD Active CALCIUM 500 MG TABS TAKE 3 TABS DAILY CALCIUM 82216555064 No Longer Active Mariaa Whitman EMERGENCY SERVICE WORKER Active MULTIVITAMINS TABS TAKE 1 TAB DAILY MULTIPLE VITAMIN Active Aneta Tavarezum FIELD INSTALLER Active BENADRYL ALLERGY 25 MG TABS NEEDED DIPHENHYDRAMINE HCL 47303839765 Active Aneta Tavarezum FIELD INSTALLER Active TYLENOL 325 MG TABS NEEDED ACETAMINOPHEN 66337245083 Active Aneta Tavarezum FIELD INSTALLER Active ADVIL 200 MG TABS TAKE NEEDED IBUPROFEN 26743555604 Active Aneta Tavarezum FIELD INSTALLER Active GLUCOSAMINE-CHONDROITIN 500-400 MG TABS TAKE 1 TAB DAILY GLUCOSAMINE-CHONDROITIN 61069908399 Active Mariaa Atkinsonum EMERGENCY SERVICE WORKER Active NORVASC 10 MG TABS TAKE 1 TAB DAILY AMLODIPINE BESYLATE 96171672297 Active Mariaa Atkinsonum EMERGENCY SERVICE WORKER Active BENAZEPRIL HCL 40 MG TABS 1 PO BID BENAZEPRIL HCL 75039670896 Active Mariaa Atkinsonum EMERGENCY SERVICE WORKER Active LOVASTATIN 20 MG TABS 1 PO Q HS FOR CHOLESTEROL LOVASTATIN 69533971778 Active Mariaa Atkinsonum EMERGENCY SERVICE WORKER Active RANITIDINE HCL 150 MG CAPS 1 PO Q 12 HRS RANITIDINE HCL 71041511929 Active Mariaa Atkinsonum EMERGENCY SERVICE WORKER Active ALENDRONATE SODIUM 70 MG TABS TAKE 1 TAB ONCE A WEEK ALENDRONATE SODIUM 70 MG TABS 177660 ALENDRONATE SODIUM Inactive ADULT ASPIRIN EC LOW STRENGTH 81 MG TBEC TAKE 1 TAB DAILY ADULT ASPIRIN EC LOW STRENGTH 81 MG TBEC 567585 ASPIRIN Inactive AMOXICILLIN 500 MG CAP 1 tab by mouth 3 times daily AMOXICILLIN 500 MG CAP 664377 AMOXICILLIN Inactive BACTRIM DS 800-160 MG TABS 1 pill by mouth twice daily, for UTI BACTRIM DS 800-160 MG TABS 229093 SULFAMETHOXAZOLE-TRIMETHOPRIM Inactive Advance Directives Directive Description Start [...] 1.41 ng/dL 0.76-1.46 cholesterol, serum 166 mg/dL 761-018 2256/04/20 triglyceride, serum, fasting 68 mg/dL 30-200 HDL cholesterol, serum 88 mg/dL 32-96 LDL cholesterol, serum 64 mg/dL 0-130 sodium, serum 132 mmol/L 006-894 3908/04/20 carbon dioxide, venous blood 31.3 mmol/L 21.0-32.0 [...] Negative Encounters Code Encounter Date Provider Facility CPT-62159 Level 4 Est. Patient 15:07:54 CDT [facility]a [facility] CPT-99331 Level 3 Est. Patient 20:45:54 FOOTWEAR SALES ASSOCIATE Mariaa Whitman [facility] CPT-45395 Level 3 Est. Patient 12:16:16 CDT Ana Cristina Vallejo MD [facility]-22682 Level 4 Est. Patient 12:49:21 CDT Ana Cristina Vallejo MD PhD [facility] CPT-81190 Level 4 Est. Patient 23:02:25 CDT Ana Cristina Vallejo MD PhD [facility]-19553 Level 4 Est. Patient 19:26:33 FOOTWEAR SALES ASSOCIATE Ana Cristina Vallejo MD PhD [facility]-49110 Level 4 Est. Patient 11:28:14 CDT Ana Crist[facility] Level 4 Est. Patient 15:35:46 FOOTWEAR SALES ASSOCIATE Ana Cristina Vallejo MD PhD [facility] CPT-68643 Level 3 Est. Patient 21:06:39 FOOTWEAR SALES ASSOCIATE Alden Kim MD [facility] CPT-82670 Level 4 Est. Patient 15:30:54 FOOTWEAR SALES ASSOCIATE Ana Cristina Vallejo MD PhD [facility] Procedures Code Procedure Name Date Entry Date Standard Description CPT-22228 Urine Culture - LAB USE ONLY 16:56:33 CDT CPT-TCMM Transitional Care Mgmt-Moderate 18:08:16 CDT CPT-24151 Bone Density 09:14:12 CDT CPT-000 Give Appropriate Flu Vaccine 14:51:52 CDT CPT-78668 Fluzone High Dose (>=65 yrs.) 15:19:23 CDT CPT-72430 Immunization Single Admin 15:19:23 CDT CPT-93099 Prevnar 13 15:40:03 CDT CPT-82354 Administration single or combination vaccine inc oral 15 :40:03 CDT CPT-63304 Prevnar 13 13:55:07 CDT CPT-G0008 Administration of Influenza Virus Vaccine 10:49:51 CDT CPT-68487 Fluzone High-Dose Intramuscular Suspension 10:49:51 CDT CPT-96918 Knee 3V 13:31:37 CDT CPT-07498 Bone Density 09:07:05 FOOTWEAR SALES ASSOCIATE CPT-44699 Nail Avulsion 09:46:05 CDT CPT-66967 Administration single or combination vaccine inc oral 16 :11:54 CDT CPT-04116 Influenza High Dose age 65+ 16:11:54 CDT CPT-02862 Administration single or combination vaccine inc oral 10 :53:15 CDT CPT-51825 Influenza High Dose age 65+ 10:53:15 CDT CPT-92674 Bone Density 14:50:58 FOOTWEAR SALES ASSOCIATE CPT-43800 Administration single or combination vaccine inc oral 15 :41:20 FOOTWEAR SALES ASSOCIATE CPT-04441 Zoster Vaccine (Zostavax) 15:41:20 FOOTWEAR SALES ASSOCIATE CPT-27975 Spec Collection and Handling Fee 11:18:25 FOOTWEAR SALES ASSOCIATE CPT-42690 Administration single or combination vaccine inc oral 11 :14:20 CDT CPT-07004 Influenza High Dose age 65+ 11:14:20 CDT
--- OUTSIDE RECORDS SUMMARY | 2017-07-18 09:04 | XMS REPORT ---
Author [facility] [employer] [facility] Medical Staff Organization [facility] Address [address] [place] [address] Phone [phone] Care Team Providers Care Metal Coater Name Role Phone LEANDRO BUCKLEY MD PP [phone] Summary purpose TRANSITION OF CARE AUTO GENERATION [...]
--- OUTSIDE RECORDS SUMMARY | 2017-07-18 09:04 | XMS REPORT | Clinical Summary ---
Author Author Admin, DANDRE Organization [facility] Address Unknown Phone Unavailable Allergies, Adverse Reactions, Alerts Allergy Name Reaction Description Start Date Severity Status Provider NKDA Critical Active Mariaa Whitman CURRICULUM COACH Conditions or Problems Problem Name Problem Code [...] Jalil Hayes MD UTI ICD-599.0 Inactive Jalil aHyes MD Medication List Medication Instructions Start Date Stop Date Generic Name NDC Status Provider Patient Instruction COLACE 100 MG CAP 1 po BID PRN Constipation DOCUSATE SODIUM 78582047026 No Longer Active Deepti Madl [employer]DOOR ADVENTURE GUIDES Active ALPRAZOLAM 0.25 MG TAB 1/2-1 tablet by mouth twice a day as needed for stress ALPRAZOLAM 20697849926 No Longer Active Deepti Madl OUTDOOR ADVENTURE GUIDES Active MIRALAX ORAL PACK Takes daily prn POLYETHYLENE GLYCOL 3350 26434827108 Active Mariaa Yokum CURRICULUM COACH Active ALENDRONATE SODIUM 70 MG TABS 1 pill by mouth weekly for osteoporosis ALENDRONATE SODIUM 00071327294 Active Brianda Reis [facility] Active E-1000 1000 UNIT ORAL CAPS Take one by mouth daily VITAMIN E 74645173433 Active Brianda Reis [facility] Active OSCAL 500/200 D-3 500-200 MG-UNIT ORAL TABS Take one by mouth 3 times daily, morning, afternoon and evening.] CALCIUM CARBONATE-VITAMIN D 85312454903 Active Brianda Reis [facility] Active ASPIRIN 81 MG CHEW TAB 1 tablet by mouth daily ASPIRIN 43004762376 Active Brianda Reis [facility] Active ADULT ASPIRIN EC LOW STRENGTH 81 MG TBEC TAKE 1 TAB DAILY ASPIRIN 04250077108 No Longer Active Mariaa Yokum CURRICULUM COACH Active ALENDRONATE SODIUM 70 MG TABS TAKE 1 TAB ONCE A WEEK ALENDRONATE SODIUM 67614533733 No Longer Active Mariaa Yokum CURRICULUM COACH Active FLONASE ALLERGY RELIEF 50 MCG/ACT NASAL SUSP One spray each nostril daily for allergies FLUTICASONE PROPIONATE 96173817222 Active Mariaa Whitman APRN Active CETIRIZINE HCL 10 MG ORAL TABS 1 po qd PRN Allergies CETIRIZINE HCL 43471506442 Active Mariaadomenico Whitman APRN Active BACTRIM DS 800-160 MG TABS 1 pill by mouth twice daily, for UTI SULFAMETHOXAZOLE-TRIMETHOPRIM 28642643408 No Longer Active Ana Cristina Vallejo MD PhD Active HYDROCHLOROTHIAZIDE 12.5 MG CAPS 1 pill by mouth daily, for blood pressure HYDROCHLOROTHIAZIDE 13118012395 Active Mariaa Whitman APRN Active CARVEDILOL 25 MG TABS 1 pill by mouth twice daily for blood pressure CARVEDILOL 09626737586 Active Mariaa Whitman APRN Active SYNTHROID 0.088 MG TAB 1 tablet by mouth daily for thyroid LEVOTHYROXINE SODIUM 18188048300 Active HEDY Esquivel Active AMOXICILLIN 500 MG CAP 1 tab by mouth 3 times daily AMOXICILLIN 34759023545 No Longer Active Alden Kim MD Active [facility]S VITAMIN D3 1000 UNIT CAPS TAKE 2 CAP DAILY CHOLECALCIFEROL Active Ana Cristina Vallejo MD PhD Active CALCIUM 500 MG TABS TAKE 3 TABS DAILY CALCIUM 24527210024 No Longer Active Mariaa Whitman APRN Active MULTIVITAMINS TABS TAKE 1 TAB DAILY MULTIPLE VITAMIN Active Aneta Tavarezum OUTDOOR ADVENTURE GUIDES Active BENADRYL ALLERGY 25 MG TABS NEEDED DIPHENHYDRAMINE HCL 76625006546 Active Aneta Tavarezum OUTDOOR ADVENTURE GUIDES Active TYLENOL 325 MG TABS NEEDED ACETAMINOPHEN 64908751233 Active Aneta Singh Leo OUTDOOR ADVENTURE GUIDES Active ADVIL 200 MG TABS TAKE NEEDED IBUPROFEN 57329840973 Active Aneta Tavarezum OUTDOOR ADVENTURE GUIDES Active GLUCOSAMINE-CHONDROITIN 500-400 MG TABS TAKE 1 TAB DAILY GLUCOSAMINE-CHONDROITIN 31724657893 Active Mariaa Whitman APRN Active NORVASC 10 MG TABS TAKE 1 TAB DAILY AMLODIPINE BESYLATE 43934993031 Active Mariaa Whitman APRN Active BENAZEPRIL HCL 40 MG TABS 1 PO BID BENAZEPRIL HCL 23144110743 Active HEDY Esquivel Active LOVASTATIN 20 MG TABS 1 PO Q HS FOR CHOLESTEROL LOVASTATIN 73194292498 Active HEDY Esquivel Active RANITIDINE HCL 150 MG CAPS 1 PO Q 12 HRS RANITIDINE HCL 16970479689 Active Mariaa Whitman APRN Active ALENDRONATE SODIUM 70 MG TABS TAKE 1 TAB ONCE A WEEK ALENDRONATE SODIUM 70 MG TABS 523738 ALENDRONATE SODIUM Inactive ADULT ASPIRIN EC LOW STRENGTH 81 MG TBEC TAKE 1 TAB DAILY ADULT ASPIRIN EC LOW STRENGTH 81 MG TBEC 939140 ASPIRIN Inactive ALPRAZOLAM 0.25 MG TAB 1/2-1 tablet by mouth twice a day as needed for stress ALPRAZOLAM 0.25 MG TAB 274544 ALPRAZOLAM Inactive COLACE 100 MG CAP 1 po BID PRN Constipation COLACE 100 MG CAP 1946611 DOCUSATE SODIUM Inactive AMOXICILLIN 500 MG CAP 1 tab by mouth 3 times daily AMOXICILLIN 500 MG CAP 418869 AMOXICILLIN Inactive BACTRIM DS 800-160 MG TABS 1 pill by mouth twice daily, for UTI BACTRIM DS 800-160 MG TABS 221785 SULFAMETHOXAZOLE-TRIMETHOPRIM Inactive Advance Directives Directive Description Start [...] Panel - Chemistry sodium, serum 130 mmol/L 220-477 0401/10/19 potassium, serum 3.5 mmol/L 3.5-5.2 chloride, serum 92 mmol/L 98-107 carbon dioxide, venous blood 33.6 mmol/L 21.0-32.0 blood glucose 118 mg/dL 65-110 calcium, serum 8.8 mg/dL 8.5-10.1 urea nitrogen, blood 11 mg/dL 7-18 creatinine, serum 1.12 mg/dL 0.55-1.30 Lab Report: CBC-QUEST, COMPREHENSIVE METABOLIC PANEL, LIPID PANEL, Micro ... - Chemistry cholesterol, serum 162 mg/dL 181-941 8619/05/01 HDL cholesterol, serum 68 mg/dL > OR=46 [...] % 11.0-15.0 platelet count 297 THOUSAND/UL 10*3/mm3 108-371 3282/05/01 mean platelet volume 8.9 fL 7.5-12.5 Lab [...] Negative Encounters Code Encounter Date Provider Facility CPT-39093 Level 4 Est. Patient 14:40:54 CDT Bee Rosas [facility] CPT-74198 Level 4 Est. Patient 10:31:15 CDT Jalil Hayes MD [facility]-20321 Level 4 Est. Patient 15:07:54 CDT Mariaa Whitman [facility]-25003 Level 3 Est. Patient 20:45:54 SENIOR CATEGORY MANAGER Mariaa Whitman [facility] CPT-56815 Level 3 Est. Patient 12:16:16 CDT Ana Cristina Vallejo MD PhD [facility] CPT-75962 Level 4 Est. Patient 12:49:21 CDT Ana Cristina Vallejo MD [facility]-19590 Level 4 Est. Patient 23:02:25 CDT Ana Cristina Vallejo MD [facility] CPT-03483 Level 4 Est. Patient 19:26:33 SENIOR CATEGORY MANAGER Ana Cristina Vallejo MD PhD [facility] CPT-40426 Level 4 Est. Patient 11:28:14 CDT Ana Cristina Vallejo MD PhD [facility] CPT-25547 Level 4 Est. Patient 15:35:46 SENIOR CATEGORY MANAGER Ana Cristina Vallejo MD PhD [facility] CPT-56518 Level 3 Est. Patient 21:06:39 SENIOR CATEGORY MANAGER Alden Kim MD [facility] CPT-50645 Level 4 Est. Patient 15:30:54 SENIOR CATEGORY MANAGER Ana Cristina Vallejo MD PhD [facility] Procedures Code Procedure Name Date Entry Date Standard Description CPT-72990 EKG Trac and Interp - XRAY USE ONLY 10:35:11 CDT 09/11 CPT-00415 Chest 2V Frontal and Lat - XRAY USE ONLY 10:35:11 CDT CPT-G0438 Initial Annual Wellness Exam 14:54:07 CDT CPT-G0009 Administration of Pneumococcal Vaccine 14:44:24 CDT CPT-11989 Pneumovax 23 Injection Injectable 25 MCG/0.5ML 14:44:24 CDT CPT-09596 First Vx - Ix admin for Medicare patients 14:44:24 CDT CPT-67142 Fluzone High-Dose Intramuscular Suspension 14:44:20 CDT CPT-89618 BMP - LAB USE ONLY 12:38:06 CDT CPT-57265 Urine Culture - LAB USE ONLY 16:56:33 CDT CPT-TCMM Transitional Care Mgmt-Moderate 18:08:16 CDT CPT-64638 Bone Density 09:14:12 CDT CPT-000 Give Appropriate Flu Vaccine 14:51:52 CDT CPT-90891 Fluzone High Dose (>=65 yrs.) 15:19:23 CDT CPT-17257 Immunization Single Admin 15:19:23 CDT CPT-46216 Prevnar 13 15:40:03 CDT CPT-63923 Administration single or combination vaccine inc oral 15 :40:03 CDT CPT-27658 Prevnar 13:55:07 CDT CPT-G0008 Administration of Influenza Virus Vaccine 10:49:51 CDT CPT-13016 Fluzone High-Dose Intramuscular Suspension 10:49:51 CDT CPT-41341 Knee 3V 13:31:37 CDT CPT-61657 Bone Density 09:07:05 SENIOR CATEGORY MANAGER CPT-12428 Nail Avulsion 09:46:05 CDT CPT-60758 Administration single or combination vaccine inc oral 16 :11:54 CDT CPT-41354 Influenza High Dose age 65+ 16:11:54 CDT CPT-96655 Administration single or combination vaccine inc oral 10 :53:15 CDT CPT-89021 Influenza High Dose age 65+ 10:53:15 CDT CPT-61177 Bone Density 14:50:58 SENIOR CATEGORY MANAGER CPT-37255 Administration single or combination vaccine inc oral 15 :41:20 SENIOR CATEGORY MANAGER CPT-07695 Zoster Vaccine (Zostavax) 15:41:20 SENIOR CATEGORY MANAGER CPT-08611 Spec Collection and Handling Fee 11:18:25 SENIOR CATEGORY MANAGER CPT-77341 Administration single or combination vaccine inc oral 11 :14:20 CDT CPT-48263 Influenza High Dose age 65+ 11:14:20 CDT
--- OUTSIDE RECORDS SUMMARY | 2017-07-18 09:05 | XMS REPORT | Clinical Summary ---
Author Author Admin, QIE Organization [employer] Address Unknown Phone Unavailable Allergies, Adverse Reactions, [...] each nostril daily for allergies FLUTICASONE PROPIONATE 78170687371 Active Mariaadomenico Whitman APRN Active CETIRIZINE HCL 10 MG ORAL TABS 1 po qd PRN Allergies CETIRIZINE HCL 15583297409 Active Mariaa Sidkum BARRELHEAD INSPECTOR Active BACTRIM DS 800-160 MG TABS 1 pill by mouth twice daily, for UTI SULFAMETHOXAZOLE-TRIMETHOPRIM 26195013646 No Longer Active Ana Cristina Vallejo MD PhD Active HYDROCHLOROTHIAZIDE 12.5 MG CAPS 1 pill by mouth daily, for blood pressure HYDROCHLOROTHIAZIDE 19950200376 Active Mariaa Antonette BARRELHEAD INSPECTOR Active CARVEDILOL 25 MG TABS 1 pill by mouth twice daily for blood pressure CARVEDILOL 18267174316 Active Mariaa Laudee SWARTZN Active SYNTHROID 0.088 MG TAB 1 tablet by mouth daily for thyroid LEVOTHYROXINE SODIUM 66700228634 Active Mariaa Antonette SWARTZN Active AMOXICILLIN 500 MG CAP 1 tab by mouth 3 times daily AMOXICILLIN 40297853325 No Longer Active Alden Kim MD Active [facility]S VITAMIN D3 1000 UNIT CAPS TAKE 2 CAP DAILY CHOLECALCIFEROL 50738351319 Active Ana Cristina Vallejo MD PhD Active CALCIUM 500 MG TABS TAKE 3 TABS DAILY CALCIUM 59063600552 Active Aneta Tavarezum ENDLESS TRACK VEHICLE MECHANIC Active MULTIVITAMINS TABS TAKE 1 TAB DAILY MULTIPLE VITAMIN 14634844443 Active Aneta Tavarezum ENDLESS TRACK VEHICLE MECHANIC Active BENADRYL ALLERGY 25 MG TABS NEEDED DIPHENHYDRAMINE HCL 94181654858 Active Aneta Tavarezum ENDLESS TRACK VEHICLE MECHANIC Active TYLENOL 325 MG TABS NEEDED ACETAMINOPHEN 11096847996 Active Aneta Tavarezum ENDLESS TRACK VEHICLE MECHANIC Active ADVIL 200 MG TABS TAKE NEEDED IBUPROFEN 63585644990 Active Aneta Tavarezum ENDLESS TRACK VEHICLE MECHANIC Active ADULT ASPIRIN EC LOW STRENGTH 81 MG TBEC TAKE 1 TAB DAILY ASPIRIN 14819363217 Active Aneta Tavarezum ENDLESS TRACK VEHICLE MECHANIC Active VITAMIN E NATURAL 400 UNIT CAPS TAKE 1 CAP DAILY VITAMIN E 13818006245 Active Aneta Tavarezum ENDLESS TRACK VEHICLE MECHANIC Active GLUCOSAMINE-CHONDROITIN 500-400 MG TABS TAKE 1 TAB DAILY GLUCOSAMINE-CHONDROITIN 14538927668 Active Aneta Tavarezum ENDLESS TRACK VEHICLE MECHANIC Active NORVASC 10 MG TABS TAKE 1 TAB DAILY AMLODIPINE BESYLATE 65235217889 Active Mariaa Whitman BARRELHEAD INSPECTOR Active BENAZEPRIL HCL 40 MG TABS 1 PO BID BENAZEPRIL HCL 02982790856 Active Mariaa Whitman BARRELHEAD INSPECTOR Active LOVASTATIN 20 MG TABS 1 PO Q HS FOR CHOLESTEROL LOVASTATIN 08653474985 Active Mariaa Whitman BARRELHEAD INSPECTOR Active RANITIDINE HCL 150 MG CAPS 1 PO Q 12 HRS RANITIDINE HCL 36897859371 Active Mariaa Whitman BARRELHEAD INSPECTOR Active ALENDRONATE SODIUM 70 MG TABS TAKE 1 TAB ONCE A WEEK ALENDRONATE SODIUM 91977624218 Active Mariaa Whitman BARRELHEAD INSPECTOR Active AMOXICILLIN 500 MG CAP 1 tab by mouth 3 times daily AMOXICILLIN 500 MG CAP 917857 AMOXICILLIN Inactive BACTRIM DS 800-160 MG TABS 1 pill by mouth twice daily, for UTI BACTRIM DS 800-160 MG TABS 466685 SULFAMETHOXAZOLE-TRIMETHOPRIM Inactive Immunizations Vaccine Administration Date Value [...] ... - Chemistry sodium, serum 132 mmol/L 260-702 6206/04/20 carbon dioxide, venous blood 31.3 mmol/L 21.0-32.0 [...] 1.41 ng/dL 0.76-1.46 cholesterol, serum 166 mg/dL 828-166 8463/04/20 triglyceride, serum, fasting 68 mg/dL 30-200 HDL [...] 5.0-8.5 Encounters Code Encounter Date Provider Facility CPT-17119 Level 3 Est. Patient 20:45:54 MEDIA LIBRARIAN Mariaa Whitman APRN [facility]-21446 Level 3 Est. Patient 12:16:16 CDT Ana Cristina Vallejo MD [facility]-65983 Level 4 Est. Patient 12:49:21 CDT Ana Cristina Vallejo MD [facility]-57414 Level 4 Est. Patient 23:02:25 CDT Ana Cristina Vallejo MD [facility]-60644 Level 4 Est. Patient 19:26:33 MEDIA LIBRARIAN Ana Cristina Vallejo MD [facility]72914 Level 4 Est. Patient 11:28:14 CDT Ana Cristina Vallejo MD [facility]-74508 Level 4 Est. Patient 15:35:46 MEDIA LIBRARIAN Ana Cristina Vallejo MD PhD [facility] CPT-72008 Level 3 Est. Patient 21:06:39 MEDIA LIBRARIAN Alden Kim MD [facility] CPT-24611 Level 4 Est. Patient 15:30:54 MEDIA LIBRARIAN Ana Cristina Vallejo MD PhD [facility] Procedures Code Procedure Name Date Entry Date Standard Description CPT-15779 Bone Density 09:14:12 CDT CPT-000 Give Appropriate Flu Vaccine 14:51:52 CDT CPT-15111 Fluzone High Dose (>=65 yrs.) 15:19:23 CDT CPT-62846 Immunization Single Admin 15:19:23 CDT CPT-95578 Prevnar 13 15:40:03 CDT CPT-43685 Administration single or combination vaccine inc oral 15 :40:03 CDT CPT-31090 Prevnar 13 13:55:07 CDT CPT-G0008 Administration of Influenza Virus Vaccine 10:49:51 CDT CPT-85189 Fluzone High-Dose Intramuscular Suspension 10:49:51 CDT CPT-45305 Knee 3V 13:31:37 CDT CPT-95736 Bone Density 09:07:05 MEDIA LIBRARIAN CPT-45241 Nail Avulsion 09:46:05 CDT CPT-91661 Administration single or combination vaccine inc oral 16 :11:54 CDT CPT-54750 Influenza High Dose age 65+ 16:11:54 CDT CPT-32655 Administration single or combination vaccine inc oral 10 :53:15 CDT CPT-68863 Influenza High Dose age 65+ 10:53:15 CDT CPT-68958 Bone Density 14:50:58 MEDIA LIBRARIAN CPT-89506 Administration single or combination vaccine inc oral 15 :41:20 MEDIA LIBRARIAN CPT-37172 Zoster Vaccine (Zostavax) 15:41:20 MEDIA LIBRARIAN CPT-56136 Spec Collection and Handling Fee 11:18:25 MEDIA LIBRARIAN CPT-78313 Administration single or combination vaccine inc oral 11 :14:20 CDT CPT-97389 Influenza High Dose age 65+ 11:14:20 CDT
--- OUTSIDE RECORDS SUMMARY | 2017-07-18 09:06 | XMS REPORT | Clinical Summary ---
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 Conditions or Problems Problem Name Problem [...] Unspecified hypothyroidism FH STROKE V17.1 Active Ana Critsina Vallejo MD PhD Family history of stroke [...] 2016 Urinary bladder pain ICD-788.99 Inactive Jalil aHyes MD UTI ICD-599.0 Inactive Jalil Hayes MD Medication List Medication Instructions Start Date Stop Date Generic Name NDC Status Provider Patient Instruction VITAMIN D3 2000 UNIT ORAL CAPSULE 1 capsule po daily CHOLECALCIFEROL 02392473922 Active HEDY Esquivel Active VITAMIN D3 2000 UNIT TABS 1 daily, for vitamin D deficiency CHOLECALCIFEROL 93343457402 Active HEDY Esquivel Active EQL ONE DAILY WOMENS ORAL TABLET 1 po daily MULTIPLE VITAMINS- CALCIUM 01278401186 Active HEDY Esquivel Active CIPRO 250 MG ORAL TABS 1 tab BID for 7 days CIPROFLOXACIN HCL 51944089648 Active Deepti Junior LPN Active MACROBID 100 MG ORAL CAPS 1 tab BID for 5 days NITROFURANTOIN MONOHYD MACRO 25077513757 No Longer Active Deepti Junior LPN Active HYDROCHLOROTHIAZIDE 12.5 MG CAPS 1 pill by mouth daily HYDROCHLOROTHIAZIDE 67768938634 Active Jalil Hayes MD Active RANITIDINE HCL 150 MG CAPS once nightly RANITIDINE HCL 09465309373 Active Jalil Hayes MD Active BENAZEPRIL HCL 40 MG TABS 1 daily for blood pressure BENAZEPRIL HCL 08169767032 Active Jalil Hayes MD Active HYDROCHLOROTHIAZIDE 12.5 MG CAPS 1 pill by mouth daily, for blood pressure HYDROCHLOROTHIAZIDE 45497796689 No Longer Active Jalil Hayes MD Active AUGMENTIN 875-125 MG TAB 1 po BID x 7 days AMOXICILLIN-POT CLAVULANATE 36617665420 No Longer Active Jalil Hayes MD Active OMEPRAZOLE 40 MG CPDR 1 po q a.m. OMEPRAZOLE 52608798911 Active Peggy Pardo LPN Active MIRALAX ORAL PACK Takes daily prn POLYETHYLENE GLYCOL 3350 88576156456 No Longer Active Peggy Pardo LPN Active FLONASE ALLERGY RELIEF 50 MCG/ACT NASAL SUSP One spray each nostril daily for allergies FLUTICASONE PROPIONATE 34879423915 No Longer Active Peggy Pardo LPN Active BENADRYL ALLERGY 25 MG TABS NEEDED DIPHENHYDRAMINE HCL 33142202925 No Longer Active Peggy Pardo LPN Active ADVIL 200 MG TABS TAKE NEEDED IBUPROFEN 84798717552 No Longer Active Peggy Pardo LPN Active COLACE 100 MG CAP 1 po BID PRN Constipation DOCUSATE SODIUM 40451697650 No Longer Active Deepti Junior LPN Active ALPRAZOLAM 0.25 MG TAB 1/2-1 tablet by mouth twice a day as needed for stress ALPRAZOLAM 19880554316 No Longer Active Deepti Junior LPN Active ALENDRONATE SODIUM 70 MG TABS 1 pill by mouth weekly for osteoporosis ALENDRONATE SODIUM 24965492877 Active Mariaa Whitman APRN Active E-1000 1000 UNIT ORAL CAPS Take one by mouth daily VITAMIN E 20512692060 Active HEDY Esquivel Active OSCAL 500/200 D-3 500-200 MG-UNIT ORAL TABS Take one by mouth 3 times daily, morning, afternoon and evening.] CALCIUM CARBONATE-VITAMIN D 29100698035 Active HEDY Esquivel Active ASPIRIN 81 MG CHEW TAB 1 tablet by mouth daily ASPIRIN 16838207837 Active HEDY Esquivel Active ADULT ASPIRIN EC LOW STRENGTH 81 MG TBEC TAKE 1 TAB DAILY ASPIRIN 59053988642 No Longer Active Mariaa Whitman APRN Active ALENDRONATE SODIUM 70 MG TABS TAKE 1 TAB ONCE A WEEK ALENDRONATE SODIUM 81968829900 No Longer Active Mariaa Whitman APRN Active CETIRIZINE HCL 10 MG ORAL TABS 1 po qd PRN Allergies CETIRIZINE HCL 97099140807 Active HEDY Esquivel Active BACTRIM DS 800-160 MG TABS 1 pill by mouth twice daily, for UTI SULFAMETHOXAZOLE-TRIMETHOPRIM 96540145326 No Longer Active Ana Cristina Vallejo MD PhD Active CARVEDILOL 25 MG TABS 1 pill by mouth twice daily for blood pressure CARVEDILOL 29846305389 Active HEDY Esquivel Active SYNTHROID 0.088 MG TAB 1 tablet by mouth daily for thyroid LEVOTHYROXINE SODIUM 98390088716 Active HEDY Esquivel Active AMOXICILLIN 500 MG CAP 1 tab by mouth 3 times daily AMOXICILLIN 15468687294 No Longer Active Alden Kim MD Active CALCIUM 500 MG TABS TAKE 3 TABS DAILY CALCIUM 26819437716 No Longer Active Mariaa Whitman APRN Active MULTIVITAMINS TABS TAKE 1 TAB DAILY MULTIPLE VITAMIN No Longer Active Aneta Bailey LPN Active TYLENOL 325 MG TABS NEEDED ACETAMINOPHEN 09970996034 Active Aneta D Leo CALL OR CONTACT CENTRE COACH Active GLUCOSAMINE-CHONDROITIN 500-400 MG TABS TAKE 1 TAB DAILY GLUCOSAMINE-CHONDROITIN 23077507652 Active Mariaa Whitman CAT SCANNER OPERATOR Active NORVASC 10 MG TABS TAKE 1 TAB DAILY AMLODIPINE BESYLATE 85165942739 Active HEDY Esquivel Active LOVASTATIN 20 MG TABS 1 PO Q HS FOR CHOLESTEROL LOVASTATIN 79150738084 Active HEDY Esquivel Active ALENDRONATE SODIUM 70 MG TABS TAKE 1 TAB ONCE A WEEK ALENDRONATE SODIUM 70 MG TABS 121724 ALENDRONATE SODIUM Inactive ADULT ASPIRIN EC LOW STRENGTH 81 MG TBEC TAKE 1 TAB DAILY ADULT ASPIRIN EC LOW STRENGTH 81 MG TBEC 873711 ASPIRIN Inactive ALPRAZOLAM 0.25 MG TAB 1/2-1 tablet by mouth twice a day as needed for stress ALPRAZOLAM 0.25 MG TAB 708573 ALPRAZOLAM Inactive COLACE 100 MG CAP 1 po BID PRN Constipation COLACE 100 MG CAP 0867372 DOCUSATE SODIUM Inactive ADVIL 200 MG TABS TAKE NEEDED ADVIL 200 MG TABS 158176 IBUPROFEN Inactive BENADRYL ALLERGY 25 MG TABS NEEDED BENADRYL ALLERGY 25 MG TABS 0681912 DIPHENHYDRAMINE HCL Inactive FLONASE ALLERGY RELIEF 50 MCG/ACT NASAL SUSP One spray each nostril daily for allergies FLONASE ALLERGY RELIEF 50 MCG/ACT NASAL SUSP 9504208 FLUTICASONE PROPIONATE Inactive MIRALAX ORAL PACK Takes daily prn MIRALAX ORAL PACK 381858 POLYETHYLENE GLYCOL 3350 Inactive AUGMENTIN 875-125 MG TAB 1 po BID x 7 days AUGMENTIN 875-125 MG TAB 805486 AMOXICILLIN-POT CLAVULANATE Inactive HYDROCHLOROTHIAZIDE 12.5 MG CAPS 1 pill by mouth daily, for blood pressure HYDROCHLOROTHIAZIDE 12.5 MG CAPS 832142 HYDROCHLOROTHIAZIDE Inactive AMOXICILLIN 500 MG CAP 1 tab by mouth 3 times daily AMOXICILLIN 500 MG CAP 238966 AMOXICILLIN Inactive BACTRIM DS 800-160 MG TABS 1 pill by mouth twice daily, for UTI BACTRIM DS 800-160 MG TABS 588977 SULFAMETHOXAZOLE-TRIMETHOPRIM Inactive MACROBID 100 MG ORAL CAPS 1 tab BID for 5 days MACROBID 100 MG ORAL CAPS 3510239 NITROFURANTOIN MONOHYD MACRO Inactive Advance Directives Directive [...] Panel - Chemistry sodium, serum 130 mmol/L 872-248 0684/10/19 potassium, serum 3.5 mmol/L 3.5-5.2 chloride, serum 92 mmol/L 98-107 carbon dioxide, venous blood 33.6 mmol/L 21.0-32.0 blood glucose 118 mg/dL 65-110 calcium, serum 8.8 mg/dL 8.5-10.1 urea nitrogen, blood 11 mg/dL 7-18 creatinine, serum 1.12 mg/dL 0.55-1.30 sodium, serum 132 mmol/L 724-259 1062/08/09 potassium, serum 4.2 mmol/L 3.5-5.2 chloride, serum 99 mmol/L 98-107 carbon dioxide, venous blood 24.7 mmol/L 21.0-32.0 blood glucose 119 mg/dL 65-110 calcium, serum 8.5 mg/dL 8.5-10.1 urea nitrogen, blood 14 mg/dL 7-18 creatinine, serum 1.16 mg/dL 0.60-1.30 Lab Report: CBC-QUEST, COMPREHENSIVE METABOLIC PANEL, LIPID PANEL, Micro ... - Chemistry cholesterol, serum 162 mg/dL 840-801 5515/05/01 HDL cholesterol, serum 68 mg/dL > OR=46 [...] % 11.0-15.0 platelet count 297 THOUSAND/UL 10*3/mm3 671-350 9502/05/01 mean platelet volume 8.9 fL 7.5-12.5 Lab [...] Code Encounter Date Provider Facility [id number] Level 3 Est. Patient 13:55:49 CDT Jalil Hayes MD [facility]46449 Level 3 Est. Patient 14:38:15 CDT Jalil Hayes MD [facility]23665 Level 4 Est. Patient 14:40:54 CDT Bee Rosas [facility]24027 Level 4 Est. Patient 10:31:15 CDT Jalil Hayes MD [facility]44065 Level 4 Est. Patient 15:07:54 CDT Mariaa Whitman [facility]47823 Level 3 Est. Patient 20:45:54 LITHOGRAPH PRESS OPERATOR Mariaa Whitman [facility]45146 Level 3 Est. Patient 12:16:16 CDT Ana Cristina Vallejo MD [facility]62279 Level 4 Est. Patient 12:49:21 CDT Ana Cristina Vallejo MD [facility]52011 Level 4 Est. Patient 23:02:25 CDT Ana Cristina Vallejo MD [facility]77183 Level 4 Est. Patient 19:26:33 LITHOGRAPH PRESS OPERATOR Ana Cristina Vallejo MD [facility]00444 Level 4 Est. Patient 11:28:14 CDT Ana Cristina Vallejo MD PhD [facility] CPT-87885 Level 4 Est. Patient 15:35:46 LITHOGRAPH PRESS OPERATOR Ana Cristina Vallejo MD PhD [facility] CPT-94619 Level 3 Est. Patient 21:06:39 LITHOGRAPH PRESS OPERATOR Alden Kim MD [facility] CPT-79191 Level 4 Est. Patient 15:30:54 LITHOGRAPH PRESS OPERATOR Ana Cristina Vallejo MD PhD [facility] Procedures Code Procedure Name Date Entry Date Standard Description CPT-TCMM Transitional Care Mgmt-Moderate 14:41:55 CDT CPT-86001 EKG Trac and Interp - XRAY USE ONLY 10:35:11 CDT 09/11 CPT-38938 Chest 2V Frontal and Lat - XRAY USE ONLY 10:35:11 CDT CPT-G0438 Initial Annual Wellness Exam 14:54:07 CDT CPT-G0009 Administration of Pneumococcal Vaccine 14:44:24 CDT CPT-32206 Pneumovax 23 Injection Injectable 25 MCG/0.5ML 14:44:24 CDT CPT-80773 First Vx - Ix admin for Medicare patients 14:44:24 CDT CPT-56910 Fluzone High-Dose Intramuscular Suspension 14:44:20 CDT CPT-91652 BMP - LAB USE ONLY 12:38:06 CDT CPT-88272 Urine Culture - LAB USE ONLY 16:56:33 CDT CPT-TCMM Transitional Care Mgmt-Moderate 18:08:16 CDT CPT-44007 Bone Density 09:14:12 CDT CPT-000 Give Appropriate Flu Vaccine 14:51:52 CDT CPT-35795 Fluzone High Dose (>=65 yrs.) 15:19:23 CDT CPT-05238 Immunization Single Admin 15:19:23 CDT CPT-19956 Prevnar 13 15:40:03 CDT CPT-04173 Administration single or combination vaccine inc oral 15 :40:03 CDT CPT-33823 Prevnar 13:55:07 CDT CPT-G0008 Administration of Influenza Virus Vaccine 10:49:51 CDT CPT-79328 Fluzone High-Dose Intramuscular Suspension 10:49:51 CDT CPT-50016 Knee 3V 13:31:37 CDT CPT-93460 Bone Density 09:07:05 LITHOGRAPH PRESS OPERATOR CPT-75429 Nail Avulsion 09:46:05 CDT CPT-00574 Administration single or combination vaccine inc oral 16 :11:54 CDT CPT-34816 Influenza High Dose age 65+ 16:11:54 CDT CPT-46865 Administration single or combination vaccine inc oral 10 :53:15 CDT CPT-05761 Influenza High Dose age 65+ 10:53:15 CDT CPT-98801 Bone Density 14:50:58 LITHOGRAPH PRESS OPERATOR CPT-11807 Administration single or combination vaccine inc oral 15 :41:20 LITHOGRAPH PRESS OPERATOR CPT-31455 Zoster Vaccine (Zostavax) 15:41:20 LITHOGRAPH PRESS OPERATOR CPT-67761 Spec Collection and Handling Fee 11:18:25 LITHOGRAPH PRESS OPERATOR CPT-96616 Administration single or combination vaccine inc oral 11 :14:20 CDT CPT-77095 Influenza High Dose age 65+ 11:14:20 CDT
--- OUTSIDE RECORDS SUMMARY | 2017-07-18 09:07 | XMS REPORT | Clinical Summary ---
Author Author Admin, DANDRE Organization [facility] [employer] [facility] [employer] Address Unknown Phone Unavailable Allergies, Adverse Reactions, Alerts Allergy Name Reaction Description Start Date Severity Status Provider NKDA Critical Active Mariaa Whitman [employer] LIBRARIAN Conditions or Problems Problem Name Problem Code Onset Date Status Entry Date Provider Comment Standard Description Annotate ROUTINE GYNECOLOGICAL EXAMINATION V72.31 Resolved Ana Cristina Vallejo MD PhD Routine gynecological examination MENOPAUSE 627.2 Ruled out Ana Cristina Vallejo MD PhD Symptomatic menopausal or female climacteric states MENOPAUSE 627.2 Active Brianda Reis [facility] Symptomatic menopausal or female [...] Hayes MD Dysuria Forgetfulness 780.99 Active Radha Carreno APRN Other general symptoms Unsteady gait 781.2 Active Radha Carreno APRN Abnormality of gait Personal history of fall V15.88 Active Radha Carreno APRN Personal history of fall BMI 29-29.9 [...] ICD-786.09 Inactive Jalil Hayes MD 2017 Dysuria ICD-788. Inactive Jalil Hayes MD 05/23 Medication List Medication Instructions Start Date Stop Date Generic Name NDC Status Provider Patient Instruction FUROSEMIDE 20 MG ORAL TABLET 1 daily for blood pressure and swelling FUROSEMIDE 31604276331 Active Jalil Hayes MD Active HYDROCHLOROTHIAZIDE 12.5 MG ORAL CAPSULE 1 pill by mouth daily HYDROCHLOROTHIAZIDE 85041765793 No Longer Active Jalil Hayes MD Active PREDNISONE 10 MG ORAL TABLET 2 daily for 5 days then 1 daily for 5 days 05/25 PREDNISONE 89675282098 No Longer Active Jalil Hayes MD Active VITAMIN D3 2000 UNIT ORAL TABLET 1 daily, for vitamin D deficiency CHOLECALCIFEROL 81876671158 No Longer Active Radha Carreno APRN Active CIPRO 250 MG ORAL TABLET 1 tab BID for 7 days CIPROFLOXACIN HCL 63154054096 No Longer Active Radha Carreno APRN Active VITAMIN D3 2000 UNIT ORAL CAPSULE 1 capsule po daily CHOLECALCIFEROL 07044260332 Active Aneta Tavarezum CASH ROOM CLERK Active EQL ONE DAILY WOMENS ORAL TABLET 1 po daily MULTIPLE VITAMINS- CALCIUM 02424316474 Active Aneta Tavarezum CASH ROOM CLERK Active MACROBID 100 MG ORAL CAPSULE 1 tab BID for 5 days NITROFURANTOIN MONOHYD MACRO 56522252581 No Longer Active Deepti Madl CASH ROOM CLERK Active RANITIDINE HCL 150 MG ORAL CAPSULE once nightly RANITIDINE HCL 44334171868 Active Aneta Tavarezum CASH ROOM CLERK Active BENAZEPRIL HCL 40 MG ORAL TABLET 1 daily for blood pressure BENAZEPRIL HCL 28441280110 Active Jalil Hayes MD Active HYDROCHLOROTHIAZIDE 12.5 MG ORAL CAPSULE 1 pill by mouth daily, for blood pressure HYDROCHLOROTHIAZIDE 28933120179 No Longer Active Jalil Hayes MD Active AUGMENTIN 875-125 MG ORAL TABLET 1 po BID x 7 days AMOXICILLIN-POT CLAVULANATE 23224945438 No Longer Active Jalil Hayes MD Active OMEPRAZOLE 40 MG ORAL CAPSULE DELAYED RELEASE 1 po q a.m. OMEPRAZOLE 85573810574 Active HEDY Esquivel Active MIRALAX ORAL PACKET Takes daily prn POLYETHYLENE GLYCOL 3350 24481940328 No Longer Active Peggy Pardo LPN Active FLONASE ALLERGY RELIEF 50 MCG/ACT NASAL SUSPENSION One spray each nostril daily for allergies FLUTICASONE PROPIONATE 89089321926 No Longer Active Peggy Pardo LPN Active BENADRYL ALLERGY 25 MG ORAL TABLET NEEDED DIPHENHYDRAMINE HCL 92572947930 No Longer Active Peggy Pardo LPN Active ADVIL 200 MG ORAL TABLET TAKE NEEDED IBUPROFEN 12134137431 No Longer Active Peggy Pardo LPN Active COLACE 100 MG ORAL CAPSULE 1 po BID PRN Constipation DOCUSATE SODIUM 71688022976 No Longer Active Deepti Junior LPN Active ALPRAZOLAM 0.25 MG ORAL TABLET 1/2-1 tablet by mouth twice a day as needed for stress ALPRAZOLAM 73765935165 No Longer Active Deepti Junior LPN Active ALENDRONATE SODIUM 70 MG ORAL TABLET 1 pill by mouth weekly for osteoporosis ALENDRONATE SODIUM 92796833528 Active Aneta Bailey LPN Active E-1000 1000 UNIT ORAL CAPSULE Take one by mouth daily VITAMIN E 06569855075 Active Aneta Bailey LPN Active OSCAL 500/200 D-3 500-200 MG-UNIT ORAL TABLET Take one by mouth 3 times daily , morning, afternoon and evening.] CALCIUM CARBONATE-VITAMIN D 02688613483 Active Aneta Bailey LPN Active ASPIRIN 81 MG ORAL TABLET CHEWABLE 1 tablet by mouth daily ASPIRIN 04244182206 Active Aneta Bailey LPN Active ADULT ASPIRIN EC LOW STRENGTH 81 MG ORAL TABLET DELAYED RELEASE TAKE 1 TAB DAILY ASPIRIN 64150580531 No Longer Active Mariaa Whitman APRN Active ALENDRONATE SODIUM 70 MG ORAL TABLET TAKE 1 TAB ONCE A WEEK 01/20 ALENDRONATE SODIUM 97517607818 No Longer Active Mariaa Whitman [employer] LIBRARIAN Active CETIRIZINE HCL 10 MG ORAL TABLET 1 po qd PRN Allergies CETIRIZINE HCL 61488935539 Active HEDY Esquivel Active BACTRIM DS 800-160 MG ORAL TABLET 1 pill by mouth twice daily, for UTI 01/29 SULFAMETHOXAZOLE-TRIMETHOPRIM 24278599464 No Longer Active Ana Cristina Vallejo MD PhD Active CARVEDILOL 25 MG ORAL TABLET 1 pill by mouth twice daily for blood pressure CARVEDILOL 41924663786 Active Aneta Tavarezum CASH ROOM CLERK Active SYNTHROID 88 MCG ORAL TABLET 1 tablet by mouth daily for thyroid LEVOTHYROXINE SODIUM 03950426946 Active HEDY Esquivel Active AMOXICILLIN 500 MG ORAL CAPSULE 1 tab by mouth 3 times daily 2011 AMOXICILLIN 19806607609 No Longer Active Alden Kim MD Active CALCIUM 500 MG ORAL TABLET TAKE 3 TABS DAILY CALCIUM 14671070186 No Longer Active Mariaa Whitman APRN Active MULTIVITAMINS TABS TAKE 1 TAB DAILY MULTIPLE VITAMIN No Longer Active Aneta Tavarezum CASH ROOM CLERK Active TYLENOL 325 MG ORAL TABLET NEEDED ACETAMINOPHEN 82311564774 Active Aneta Tavarezum CASH ROOM CLERK Active GLUCOSAMINE-CHONDROITIN 500-400 MG ORAL TABLET TAKE 1 TAB DAILY GLUCOSAMINE-CHONDROITIN 39156528514 Active Aneta Bailey CASH ROOM CLERK Active NORVASC 10 MG ORAL TABLET TAKE 1 TAB DAILY AMLODIPINE BESYLATE 14980691000 Active Aneta Tavarezum CASH ROOM CLERK Active LOVASTATIN 20 MG ORAL TABLET 1 PO Q HS FOR CHOLESTEROL LOVASTATIN 79355485798 Active HEDY Esquivel Active ALENDRONATE SODIUM 70 MG ORAL TABLET TAKE 1 TAB ONCE A WEEK 01/20 ALENDRONATE SODIUM 70 MG ORAL TABLET 264865 ALENDRONATE SODIUM Inactive ADULT ASPIRIN EC LOW STRENGTH 81 MG ORAL TABLET DELAYED RELEASE TAKE 1 TAB DAILY ADULT ASPIRIN EC LOW STRENGTH 81 MG ORAL TABLET DELAYED RELEASE 244117 ASPIRIN Inactive ALPRAZOLAM 0.25 MG ORAL TABLET 1/2-1 tablet by mouth twice a day as needed for stress ALPRAZOLAM 0.25 MG ORAL TABLET 647601 ALPRAZOLAM Inactive COLACE 100 MG ORAL CAPSULE 1 po BID PRN Constipation COLACE 100 MG ORAL CAPSULE 8233193 DOCUSATE SODIUM Inactive ADVIL 200 MG ORAL TABLET TAKE NEEDED ADVIL 200 MG ORAL TABLET 378393 IBUPROFEN Inactive BENADRYL ALLERGY 25 MG ORAL TABLET NEEDED BENADRYL ALLERGY 25 MG ORAL TABLET 1510768 DIPHENHYDRAMINE HCL Inactive FLONASE ALLERGY RELIEF 50 MCG/ACT NASAL SUSPENSION One spray each nostril daily for allergies FLONASE ALLERGY RELIEF 50 MCG/ACT NASAL SUSPENSION 1650190 FLUTICASONE PROPIONATE Inactive MIRALAX ORAL PACKET Takes daily prn MIRALAX ORAL PACKET 460757 POLYETHYLENE GLYCOL 3350 Inactive AUGMENTIN 875-125 MG ORAL TABLET 1 po BID x 7 days AUGMENTIN 875-125 MG ORAL TABLET 767993 AMOXICILLIN-POT CLAVULANATE Inactive HYDROCHLOROTHIAZIDE 12.5 MG ORAL CAPSULE 1 pill by mouth daily, for blood pressure HYDROCHLOROTHIAZIDE 12.5 MG ORAL CAPSULE HYDROCHLOROTHIAZIDE Inactive CIPRO 250 MG ORAL TABLET 1 tab BID for 7 days CIPRO 250 MG ORAL TABLET 497828 CIPROFLOXACIN HCL Inactive VITAMIN D3 2000 UNIT ORAL TABLET 1 daily, for vitamin D deficiency VITAMIN D3 2000 UNIT ORAL TABLET CHOLECALCIFEROL Inactive PREDNISONE 10 MG ORAL TABLET 2 daily for 5 days then 1 daily for 5 days 05/25 PREDNISONE 10 MG ORAL TABLET 365128 PREDNISONE Inactive HYDROCHLOROTHIAZIDE 12.5 MG ORAL CAPSULE 1 pill by mouth daily HYDROCHLOROTHIAZIDE 12.5 MG ORAL CAPSULE HYDROCHLOROTHIAZIDE Inactive AMOXICILLIN 500 MG ORAL CAPSULE 1 tab by mouth 3 times daily 2011 AMOXICILLIN 500 MG ORAL CAPSULE 967858 AMOXICILLIN Inactive BACTRIM DS 800-160 MG ORAL TABLET 1 pill by mouth twice daily, for UTI 01/29 BACTRIM DS 800-160 MG ORAL TABLET 781674 SULFAMETHOXAZOLE- TRIMETHOPRIM Inactive MACROBID 100 MG ORAL CAPSULE 1 tab BID for 5 days MACROBID 100 MG ORAL CAPSULE 8121373 NITROFURANTOIN MONOHYD MACRO Inactive Advance Directives Directive [...] Panel - Chemistry sodium, serum 132 mmol/L 016-585 4961/08/09 potassium, serum 4.2 mmol/L 3.5-5.2 chloride, serum 99 mmol/L 98-107 carbon dioxide, venous blood 24.7 mmol/L 21.0-32.0 blood glucose 119 mg/dL 65-110 calcium, serum 8.5 mg/dL 8.5-10.1 urea nitrogen, blood 14 mg/dL 7-18 creatinine, serum 1.16 mg/dL 0.60-1.30 Lab Report: CBC-QUEST, COMPREHENSIVE METABOLIC PANEL, LIPID PANEL, Micro ... - Chemistry cholesterol, serum 162 mg/dL 499-025 8646/05/01 HDL cholesterol, serum 68 mg/dL > OR=46 [...] % 11.0-15.0 platelet count 297 THOUSAND/UL 10*3/mm3 330-866 5994/05/01 mean platelet volume 8.9 fL 7.5-12.5 Lab Report: CBC-QUEST, COMPREHENSIVE METABOLIC PANEL, LIPID PANEL, Micro ... - Urinalysis microalbumin/total urine volume <0.2 mg/dL mg/L microalbumin/creatinine ratio, urine NOTE mcg/mg creat mg/L <30 Lab Report: Erythrocyte Sed Rate, Thyroid Stimulating Hormone (L), Basic ... - Chemistry TSH 1.13 m[iU]/mL 0.36-3.74 sodium, serum 139 mmol/L 912-802 6591/01/10 potassium, serum 3.8 mmol/L 3.5-5.2 chloride, serum [...] 5.0-8.5 Encounters Code Encounter Date Provider Facility CPT-79399 Level 4 Est. Patient 11:50:58 DESIGN QUALITY ENGINEER Jalil Hayes MD [facility] CPT-85129 Level 4 Est. Patient 12:35:27 DESIGN QUALITY ENGINEER Jalil Hayes MD [facility] CPT-76006 Level 3 Est. Patient 13:55:49 CDT Jalil Hayes MD [facility] CPT-54856 Level 3 Est. Patient 14:38:15 CDT Jalil Hayes MD [facility] CPT-11325 Level 4 Est. Patient 14:40:54 CDT Bee Rosas [facility] CPT-47752 Level 4 Est. Patient 10:31:15 CDT Jalil Hayes MD [facility] CPT-57089 Level 4 Est. Patient 15:07:54 CDT Mariaa Whitman [facility] CPT-17681 Level 3 Est. Patient 20:45:54 DESIGN QUALITY ENGINEER Mariaa Whitman [facility] CPT-90408 Level 3 Est. Patient 12:16:16 CDT Ana Cristina Vallejo MD [facility] CPT-74706 Level 4 Est. Patient 12:49:21 CDT Ana Cristina Valleoj MD [facility] CPT-35637 Level 4 Est. Patient 23:02:25 CDT Ana Cristina Vallejo MD [facility] CPT-31517 Level 4 Est. Patient 19:26:33 DESIGN QUALITY ENGINEER Ana Cristina Vallejo MD [facility] CPT-58138 Level 4 Est. Patient 11:28:14 CDT Ana Cristina Vallejo MD [facility] CPT-80838 Level 4 Est. Patient 15:35:46 DESIGN QUALITY ENGINEER Ana Cristina Vallejo MD [facility] CPT-18109 Level 3 Est. Patient 21:06:39 DESIGN QUALITY ENGINEER Alden Kim MD [facility] CPT-64368 Level 4 Est. Patient 15:30:54 DESIGN QUALITY ENGINEER Ana Cristina Vallejo MD PhD [facility] Procedures Code Procedure Name Date Entry Date Standard Description CPT-G0439 [facility] Annual Wellness Exam 11:53:01 DESIGN QUALITY ENGINEER CPT-87254 First Vx - Ix admin for Medicare patients 13:35:01 CDT CPT-42837 Fluzone High-Dose Intramuscular Suspension 13:35:01 CDT CPT-TCMM Transitional Care Mgmt-Moderate 14:41:55 CDT CPT-48964 EKG Trac and Interp - XRAY USE ONLY 10:35:11 CDT 09/11 CPT-75449 Chest 2V Frontal and Lat - XRAY USE ONLY 10:35:11 CDT CPT-G0438 Initial Annual Wellness Exam 14:54:07 CDT CPT-G0009 Administration of Pneumococcal Vaccine 14:44:24 CDT CPT-43032 Pneumovax 23 Injection Injectable 25 MCG/0.5ML 14:44:24 CDT CPT-78701 First Vx - Ix admin for Medicare patients 14:44:24 CDT CPT-38884 Fluzone High-Dose Intramuscular Suspension 14:44:20 CDT CPT-67605 BMP - LAB USE ONLY 12:38:06 CDT CPT-87032 Urine Culture - LAB USE ONLY 16:56:33 CDT CPT-TCMM Transitional Care Mgmt-Moderate 18:08:16 CDT CPT-17671 Bone Density 09:14:12 CDT CPT-000 Give Appropriate Flu Vaccine 14:51:52 CDT CPT-40908 Fluzone High Dose (>=65 yrs.) 15:19:23 CDT CPT-77185 Immunization Single Admin 15:19:23 CDT CPT-18674 Prevnar 13 15:40:03 CDT CPT-32856 Administration single or combination vaccine inc oral 15 :40:03 CDT CPT-73705 Prevnar 13 13:55:07 CDT CPT-G0008 Administration of Influenza Virus Vaccine 10:49:51 CDT CPT-58142 Fluzone High-Dose Intramuscular Suspension 10:49:51 CDT CPT-01445 Knee 3V 13:31:37 CDT CPT-55970 Bone Density 09:07:05 DESIGN QUALITY ENGINEER CPT-86694 Nail Avulsion 09:46:05 CDT CPT-59532 Administration single or combination vaccine inc oral 16 :11:54 CDT CPT-80865 Influenza High Dose age 65+ 16:11:54 CDT CPT-11546 Administration single or combination vaccine inc oral 10 :53:15 CDT CPT-94409 Influenza High Dose age 65+ 10:53:15 CDT CPT-99293 Bone Density 14:50:58 DESIGN QUALITY ENGINEER CPT-93444 Administration single or combination vaccine inc oral 15 :41:20 DESIGN QUALITY ENGINEER CPT-44986 Zoster Vaccine (Zostavax) 15:41:20 DESIGN QUALITY ENGINEER CPT-46785 Spec Collection and Handling Fee 11:18:25 DESIGN QUALITY ENGINEER CPT-21365 Administration single or combination vaccine inc oral 11 :14:20 CDT CPT-71823 Influenza High Dose age 65+ 11:14:20 CDT
--- OUTSIDE RECORDS SUMMARY | 2017-07-18 09:08 | XMS REPORT | Clinical Summary ---
Author Author Admin, DANDRE Organization [facility] [employer] Address Unknown Phone Unavailable Allergies, Adverse Reactions, Alerts Allergy Name Reaction Description Start Date Severity Status Provider NKDA Critical Active Mariaa Whitman CAN COVERER Conditions or Problems Problem Name Problem Code Onset Date Status Entry Date Provider Comment Standard Description Annotate ROUTINE GYNECOLOGICAL EXAMINATION V72.31 Resolved Ana Cristina Vallejo MD PhD Routine gynecological examination MENOPAUSE 627.2 Ruled out Ana Cristina Vallejo MD PhD Symptomatic menopausal or female climacteric states MENOPAUSE 627.2 Active Brianda Reis [facility] Symptomatic menopausal or female climacteric [...] ORAL CAPSULE 1 capsule po daily CHOLECALCIFEROL 33984416011 Active HEDY Esquivel Active VITAMIN D3 2000 UNIT TABS 1 daily, for vitamin D deficiency CHOLECALCIFEROL 63052737334 Active HEDY Esquivel Active EQL ONE DAILY WOMENS ORAL TABLET 1 po daily MULTIPLE VITAMINS- CALCIUM 18892446110 Active HEDY Esquivel Active CIPRO 250 MG ORAL TABS 1 tab BID for 7 days CIPROFLOXACIN HCL 63459701469 Active Deepti Junior LPN Active MACROBID 100 MG ORAL CAPS 1 tab BID for 5 days NITROFURANTOIN MONOHYD MACRO 71864873923 No Longer Active Deepti Junior LPN Active HYDROCHLOROTHIAZIDE 12.5 MG CAPS 1 pill by mouth daily HYDROCHLOROTHIAZIDE 11155610020 Active Jalil Hayes MD Active RANITIDINE HCL 150 MG CAPS once nightly RANITIDINE HCL 70774807315 Active Jalil Hayes MD Active BENAZEPRIL HCL 40 MG TABS 1 daily for blood pressure BENAZEPRIL HCL 47815871813 Active Jalil Hayes MD Active HYDROCHLOROTHIAZIDE 12.5 MG CAPS 1 pill by mouth daily, for blood pressure HYDROCHLOROTHIAZIDE 15461750853 No Longer Active Jalil Hayes MD Active AUGMENTIN 875-125 MG TAB 1 po BID x 7 days AMOXICILLIN-POT CLAVULANATE 30476620855 No Longer Active Jalil Hayes MD Active OMEPRAZOLE 40 MG CPDR 1 po q a.m. OMEPRAZOLE 95628566471 Active Peggy Pardo LPN Active MIRALAX ORAL PACK Takes daily prn POLYETHYLENE GLYCOL 3350 32240520966 No Longer Active Peggy Pardo LPN Active FLONASE ALLERGY RELIEF 50 MCG/ACT NASAL SUSP One spray each nostril daily for allergies FLUTICASONE PROPIONATE 23979527962 No Longer Active Peggy Pardo LPN Active BENADRYL ALLERGY 25 MG TABS NEEDED DIPHENHYDRAMINE HCL 39425160858 No Longer Active Peggy Pardo LPN Active ADVIL 200 MG TABS TAKE NEEDED IBUPROFEN 65279478018 No Longer Active Peggy Pardo LPN Active COLACE 100 MG CAP 1 po BID PRN Constipation DOCUSATE SODIUM 97202214703 No Longer Active Deepti Junior LPN Active ALPRAZOLAM 0.25 MG TAB 1/2-1 tablet by mouth twice a day as needed for stress ALPRAZOLAM 40902607279 No Longer Active Deepti Junior LPN Active ALENDRONATE SODIUM 70 MG TABS 1 pill by mouth weekly for osteoporosis ALENDRONATE SODIUM 19668387468 Active Mariaa Whitman APRN Active E-1000 1000 UNIT ORAL CAPS Take one by mouth daily VITAMIN E 73036037106 Active HEDY Esquivel Active OSCAL 500/200 D-3 500-200 MG-UNIT ORAL TABS Take one by mouth 3 times daily, morning, afternoon and evening.] CALCIUM CARBONATE-VITAMIN D 91686654715 Active EHDY Esquivel Active ASPIRIN 81 MG CHEW TAB 1 tablet by mouth daily ASPIRIN 04888356866 Active HEDY Esquivel Active ADULT ASPIRIN EC LOW STRENGTH 81 MG TBEC TAKE 1 TAB DAILY ASPIRIN 16726993273 No Longer Active Mariaa Whitman APRN Active ALENDRONATE SODIUM 70 MG TABS TAKE 1 TAB ONCE A WEEK ALENDRONATE SODIUM 21036377437 No Longer Active Mariaa Whitman APRN Active CETIRIZINE HCL 10 MG ORAL TABS 1 po qd PRN Allergies CETIRIZINE HCL 60817798449 Active HEDY Esquivel Active BACTRIM DS 800-160 MG TABS 1 pill by mouth twice daily, for UTI SULFAMETHOXAZOLE-TRIMETHOPRIM 61370962978 No Longer Active Ana Cristina Vallejo MD PhD Active CARVEDILOL 25 MG TABS 1 pill by mouth twice daily for blood pressure CARVEDILOL 17722118280 Active Aneta Tavarezum YULIET Active SYNTHROID 0.088 MG TAB 1 tablet by mouth daily for thyroid LEVOTHYROXINE SODIUM 73683224322 Active HEDY Esquivel Active AMOXICILLIN 500 MG CAP 1 tab by mouth 3 times daily AMOXICILLIN 14638041133 No Longer Active Alden Kim MD Active CALCIUM 500 MG TABS TAKE 3 TABS DAILY CALCIUM 58387495616 No Longer Active Mariaa Whitman APRN Active MULTIVITAMINS TABS TAKE 1 TAB DAILY MULTIPLE VITAMIN No Longer Active Aneta Tavarezum COMMERCIAL LINES ACCOUNT ASSISTANT Active TYLENOL 325 MG TABS NEEDED ACETAMINOPHEN 90561023923 Active Aneta Tavarezum COMMERCIAL LINES ACCOUNT ASSISTANT Active GLUCOSAMINE-CHONDROITIN 500-400 MG TABS TAKE 1 TAB DAILY GLUCOSAMINE-CHONDROITIN 85383414996 Active Aneta Singh Leo COMMERCIAL LINES ACCOUNT ASSISTANT Active NORVASC 10 MG TABS TAKE 1 TAB DAILY AMLODIPINE BESYLATE 34190616234 Active Aneta Singh Leo COMMERCIAL LINES ACCOUNT ASSISTANT Active LOVASTATIN 20 MG TABS 1 PO Q HS FOR CHOLESTEROL LOVASTATIN 42725151664 Active HEDY Esquivel Active ALENDRONATE SODIUM 70 MG TABS TAKE 1 TAB ONCE A WEEK ALENDRONATE SODIUM 70 MG TABS 839352 ALENDRONATE SODIUM Inactive ADULT ASPIRIN EC LOW STRENGTH 81 MG TBEC TAKE 1 TAB DAILY ADULT ASPIRIN EC LOW STRENGTH 81 MG TBEC 056967 ASPIRIN Inactive ALPRAZOLAM 0.25 MG TAB 1/2-1 tablet by mouth twice a day as needed for stress ALPRAZOLAM 0.25 MG TAB 437809 ALPRAZOLAM Inactive COLACE 100 MG CAP 1 po BID PRN Constipation COLACE 100 MG CAP 5378502 DOCUSATE SODIUM Inactive ADVIL 200 MG TABS TAKE NEEDED ADVIL 200 MG TABS 672415 IBUPROFEN Inactive BENADRYL ALLERGY 25 MG TABS NEEDED BENADRYL ALLERGY 25 MG TABS 7240960 DIPHENHYDRAMINE HCL Inactive FLONASE ALLERGY RELIEF 50 MCG/ACT NASAL SUSP One spray each nostril daily for allergies FLONASE ALLERGY RELIEF 50 MCG/ACT NASAL SUSP 8889197 FLUTICASONE PROPIONATE Inactive MIRALAX ORAL PACK Takes daily prn MIRALAX ORAL PACK 169907 POLYETHYLENE GLYCOL 3350 Inactive AUGMENTIN 875-125 MG TAB 1 po BID x 7 days AUGMENTIN 875-125 MG TAB 262473 AMOXICILLIN-POT CLAVULANATE Inactive HYDROCHLOROTHIAZIDE 12.5 MG CAPS 1 pill by mouth daily, for blood pressure HYDROCHLOROTHIAZIDE 12.5 MG CAPS 847163 HYDROCHLOROTHIAZIDE Inactive AMOXICILLIN 500 MG CAP 1 tab by mouth 3 times daily AMOXICILLIN 500 MG CAP 565410 AMOXICILLIN Inactive BACTRIM DS 800-160 MG TABS 1 pill by mouth twice daily, for UTI BACTRIM DS 800-160 MG TABS 353672 SULFAMETHOXAZOLE-TRIMETHOPRIM Inactive MACROBID 100 MG ORAL CAPS 1 tab BID for 5 days MACROBID 100 MG ORAL CAPS 0653026 NITROFURANTOIN MONOHYD MACRO Inactive Advance Directives Directive [...] Panel - Chemistry sodium, serum 132 mmol/L 374-986 1048/08/09 potassium, serum 4.2 mmol/L 3.5-5.2 chloride, serum 99 mmol/L 98-107 carbon dioxide, venous blood 24.7 mmol/L 21.0-32.0 blood glucose 119 mg/dL 65-110 calcium, serum 8.5 mg/dL 8.5-10.1 urea nitrogen, blood 14 mg/dL 7-18 creatinine, serum 1.16 mg/dL 0.60-1.30 Lab Report: CBC-QUEST, COMPREHENSIVE METABOLIC PANEL, LIPID PANEL, Micro ... - Chemistry cholesterol, serum 162 mg/dL 090-454 7437/05/01 HDL cholesterol, serum 68 mg/dL > OR=46 [...] % 11.0-15.0 platelet count 297 THOUSAND/UL 10*3/mm3 247-256 2495/05/01 mean platelet volume 8.9 fL 7.5-12.5 mean [...] 5.0-8.5 Encounters Code Encounter Date Provider Facility CPT-34076 Level 3 Est. Patient 13:55:49 CDT Jalil Hayes MD [facility] CPT-34467 Level 3 Est. Patient 14:38:15 CDT Jalil Hayes MD [facility] CPT-99192 Level 4 Est. Patient 14:40:54 CDT Bee Rosas APRN [facility] CPT-46990 Level 4 Est. Patient 10:31:15 CDT Jalil Hayes MD [facility] CPT-57887 Level 4 Est. Patient 15:07:54 CDT Mariaadomenico Whitman [facility] CPT-40356 Level 3 Est. Patient 20:45:54 OUTREACH ANALYST Mariaa Whitman [facility] CPT-56530 Level 3 Est. Patient 12:16:16 CDT Ana Cristina Vallejo MD [facility] CPT-80648 Level 4 Est. Patient 12:49:21 CDT Ana Cristina Vallejo MD [facility] CPT-90369 Level 4 Est. Patient 23:02:25 CDT Ana Cristina Vallejo MD [facility] CPT-62116 Level 4 Est. Patient 19:26:33 OUTREACH ANALYST Ana Cristina Vallejo MD [facility] CPT-93117 Level 4 Est. Patient 11:28:14 CDT Ana Cristina Vallejo MD [facility] CPT-82159 Level 4 Est. Patient 15:35:46 OUTREACH ANALYST Ana Cristina Vallejo MD [facility] CPT-90762 Level 3 Est. Patient 21:06:39 OUTREACH ANALYST Alden Kim MD [facility] CPT-79283 Level 4 Est. Patient 15:30:54 OUTREACH ANALYST Ana Cristina Vallejo MD [facility] Procedures Code Procedure Name Date Entry Date Standard Description CPT-06328 First Vx - Ix admin for Medicare patients 13:35:01 CDT CPT-91966 Fluzone High-Dose Intramuscular Suspension 13:35:01 CDT CPT-TCMM Transitional Care Mgmt-Moderate 14:41:55 CDT CPT-61902 EKG Trac and Interp - XRAY USE ONLY 10:35:11 CDT 09/11 CPT-49605 Chest 2V Frontal and Lat - XRAY USE ONLY 10:35:11 CDT CPT-G0438 Initial Annual Wellness Exam 14:54:07 CDT CPT-G0009 Administration of Pneumococcal Vaccine 14:44:24 CDT CPT-29338 Pneumovax 23 Injection Injectable 25 MCG/0.5ML 14:44:24 CDT CPT-37528 First Vx - Ix admin for Medicare patients 14:44:24 CDT CPT-09422 Fluzone High-Dose Intramuscular Suspension 14:44:20 CDT CPT-45596 BMP - LAB USE ONLY 12:38:06 CDT CPT-14021 Urine Culture - LAB USE ONLY 16:56:33 CDT CPT-TCMM Transitional Care Mgmt-Moderate 18:08:16 CDT CPT-88769 Bone Density 09:14:12 CDT CPT-000 Give Appropriate Flu Vaccine 14:51:52 CDT CPT-13780 Fluzone High Dose (>=65 yrs.) 15:19:23 CDT CPT-53909 Immunization Single Admin 15:19:23 CDT CPT-30557 Prevnar 13 15:40:03 CDT CPT-00033 Administration single or combination vaccine inc oral 15 :40:03 CDT CPT-84970 Prevnar 13 13:55:07 CDT CPT-G0008 Administration of Influenza Virus Vaccine 10:49:51 CDT CPT-59988 Fluzone High-Dose Intramuscular Suspension 10:49:51 CDT CPT-73053 Knee 3V 13:31:37 CDT CPT-03236 Bone Density 09:07:05 OUTREACH ANALYST CPT-42857 Nail Avulsion 09:46:05 CDT CPT-19966 Administration single or combination vaccine inc oral 16 :11:54 CDT CPT-75328 Influenza High Dose age 65+ 16:11:54 CDT CPT-79199 Administration single or combination vaccine inc oral 10 :53:15 CDT CPT-68765 Influenza High Dose age 65+ 10:53:15 CDT CPT-08393 Bone Density 14:50:58 OUTREACH ANALYST CPT-61271 Administration single or combination vaccine inc oral 15 :41:20 OUTREACH ANALYST CPT-40536 Zoster Vaccine (Zostavax) 15:41:20 OUTREACH ANALYST CPT-79047 Spec Collection and Handling Fee 11:18:25 OUTREACH ANALYST CPT-36426 Administration single or combination vaccine inc oral 11 :14:20 CDT CPT-17474 Influenza High Dose age 65+ 11:14:20 CDT
--- OUTSIDE RECORDS SUMMARY | 2017-07-18 09:09 | XMS REPORT | Clinical Summary ---
Author Author Admin, DANDRE Organization [facility] [employer] Address Unknown Phone Unavailable Allergies, Adverse Reactions, Alerts Allergy Name Reaction Description Start Date Severity Status Provider NKDA Critical Active Mariaa Whitman HEAD OF CYTOGENETICS Conditions or Problems Problem Name Problem Code Onset Date Status Entry Date Provider Comment Standard Description Annotate ROUTINE GYNECOLOGICAL EXAMINATION V72.31 Resolved Ana Cristina Vallejo MD PhD Routine gynecological examination MENOPAUSE 627.2 Ruled out Ana Cristina Vallejo MD PhD Symptomatic menopausal or female climacteric states MENOPAUSE 627.2 Active Brianda Reis [facility] Symptomatic menopausal or female [...] respiratory abnormality Mammogram yearly screening V76.12 Active Jaill Hayes MD Other screening mammogram Change in [...] 1 po BID PRN Constipation DOCUSATE SODIUM 81124162280 No Longer Active Deepti Madl SPORTS CLERK Active ALPRAZOLAM 0.25 MG TAB 1/2-1 tablet by mouth twice a day as needed for stress ALPRAZOLAM 86421029485 No Longer Active Deepti Madl SPORTS CLERK Active MIRALAX ORAL PACK Takes daily prn POLYETHYLENE GLYCOL 3350 83631470038 Active Mariaa Yokum HEAD OF CYTOGENETICS Active ALENDRONATE SODIUM 70 MG TABS 1 pill by mouth weekly for osteoporosis ALENDRONATE SODIUM 17857613562 Active Brianda Reis [facility] Active E-1000 1000 UNIT ORAL CAPS Take one by mouth daily VITAMIN E 49492657374 Active Brianda Reis [facility] Active OSCAL 500/200 D-3 500-200 MG-UNIT ORAL TABS Take one by mouth 3 times daily, morning, afternoon and evening.] CALCIUM CARBONATE-VITAMIN D 24336268977 Active Brianda Reis [facility] Active ASPIRIN 81 MG CHEW TAB 1 tablet by mouth daily ASPIRIN 83472061437 Active Brianda Reis [facility] Active ADULT ASPIRIN EC LOW STRENGTH 81 MG TBEC TAKE 1 TAB DAILY ASPIRIN 52135891285 No Longer Active Mariaa Yokum HEAD OF CYTOGENETICS Active ALENDRONATE SODIUM 70 MG TABS TAKE 1 TAB ONCE A WEEK ALENDRONATE SODIUM 26993069665 No Longer Active Mariaa Yokum HEAD OF CYTOGENETICS Active FLONASE ALLERGY RELIEF 50 MCG/ACT NASAL SUSP One spray each nostril daily for allergies FLUTICASONE PROPIONATE 74365032401 Active Mariaa Whitman APRN Active CETIRIZINE HCL 10 MG ORAL TABS 1 po qd PRN Allergies CETIRIZINE HCL 71730902757 Active HEDY Esquivel Active BACTRIM DS 800-160 MG TABS 1 pill by mouth twice daily, for UTI SULFAMETHOXAZOLE-TRIMETHOPRIM 53570993347 No Longer Active Ana Cristina Vallejo MD PhD Active HYDROCHLOROTHIAZIDE 12.5 MG CAPS 1 pill by mouth daily, for blood pressure HYDROCHLOROTHIAZIDE 31823517073 Active HEDY Esquivel Active CARVEDILOL 25 MG TABS 1 pill by mouth twice daily for blood pressure CARVEDILOL 91412255556 Active HEDY Esquivel Active SYNTHROID 0.088 MG TAB 1 tablet by mouth daily for thyroid LEVOTHYROXINE SODIUM 23098901990 Active HEDY Esquivel Active AMOXICILLIN 500 MG CAP 1 tab by mouth 3 times daily AMOXICILLIN 73546048648 No Longer Active Alden Kim MD Active [facility] VITAMIN D3 1000 UNIT CAPS TAKE 2 CAP DAILY CHOLECALCIFEROL Active Ana Cristina Vallejo MD PhD Active CALCIUM 500 MG TABS TAKE 3 TABS DAILY CALCIUM 18904627775 No Longer Active Mariaa Whitman APRN Active MULTIVITAMINS TABS TAKE 1 TAB DAILY MULTIPLE VITAMIN Active Anetajeannie Tavarezum SPORTS CLERK Active BENADRYL ALLERGY 25 MG TABS NEEDED DIPHENHYDRAMINE HCL 30601148084 Active Aneta Singh Leo SPORTS CLERK Active TYLENOL 325 MG TABS NEEDED ACETAMINOPHEN 82057476822 Active Aneta Singh Leo SPORTS CLERK Active ADVIL 200 MG TABS TAKE NEEDED IBUPROFEN 33725132950 Active Aneta Singh Leo SPORTS CLERK Active GLUCOSAMINE-CHONDROITIN 500-400 MG TABS TAKE 1 TAB DAILY GLUCOSAMINE-CHONDROITIN 04596140158 Active Mariaa Whitman APRN Active NORVASC 10 MG TABS TAKE 1 TAB DAILY AMLODIPINE BESYLATE 13743591481 Active HEDY Esquivel Active BENAZEPRIL HCL 40 MG TABS 1 PO BID BENAZEPRIL HCL 44135726554 Active HEDY Esquivel Active LOVASTATIN 20 MG TABS 1 PO Q HS FOR CHOLESTEROL LOVASTATIN 11759861785 Active HEDY Esquivel Active RANITIDINE HCL 150 MG CAPS 1 PO Q 12 HRS RANITIDINE HCL 42102518839 Active HEDY Esquivel Active ALENDRONATE SODIUM 70 MG TABS TAKE 1 TAB ONCE A WEEK ALENDRONATE SODIUM 70 MG TABS 902017 ALENDRONATE SODIUM Inactive ADULT ASPIRIN EC LOW STRENGTH 81 MG TBEC TAKE 1 TAB DAILY ADULT ASPIRIN EC LOW STRENGTH 81 MG TBEC 506096 ASPIRIN Inactive ALPRAZOLAM 0.25 MG TAB 1/2-1 tablet by mouth twice a day as needed for stress ALPRAZOLAM 0.25 MG TAB 214427 ALPRAZOLAM Inactive COLACE 100 MG CAP 1 po BID PRN Constipation COLACE 100 MG CAP 0924943 DOCUSATE SODIUM Inactive AMOXICILLIN 500 MG CAP 1 tab by mouth 3 times daily AMOXICILLIN 500 MG CAP 326430 AMOXICILLIN Inactive BACTRIM DS 800-160 MG TABS 1 pill by mouth twice daily, for UTI BACTRIM DS 800-160 MG TABS 140327 SULFAMETHOXAZOLE-TRIMETHOPRIM Inactive Advance Directives Directive Description Start [...] Panel - Chemistry sodium, serum 130 mmol/L 100-379 0777/10/19 potassium, serum 3.5 mmol/L 3.5-5.2 chloride, serum 92 mmol/L 98-107 carbon dioxide, venous blood 33.6 mmol/L 21.0-32.0 blood glucose 118 mg/dL 65-110 calcium, serum 8.8 mg/dL 8.5-10.1 urea nitrogen, blood 11 mg/dL 7-18 creatinine, serum 1.12 mg/dL 0.55-1.30 Lab Report: CBC-QUEST, COMPREHENSIVE METABOLIC PANEL, LIPID PANEL, Micro ... - Chemistry cholesterol, serum 162 mg/dL 075-730 3064/05/01 HDL cholesterol, serum 68 mg/dL > OR=46 [...] % 11.0-15.0 platelet count 297 THOUSAND/UL 10*3/mm3 877-018 1279/05/01 mean platelet volume 8.9 fL 7.5-12.5 Lab [...] Colorless;Lightyellow;Straw;Yellow Encounters Code Encounter Date Provider Facility CPT-63378 Level 4 Est. Patient 14:40:54 CDT Bee Rosas [facility] CPT-12453 Level 4 Est. Patient 10:31:15 CDT Jalil Hayes MD [facility]-90361 Level 4 Est. Patient 15:07:54 CDT Mariaa Whitman [facility]-99305 Level 3 Est. Patient 20:45:54 MOTION GRAPHICS DESIGNER Mariaa Whitman [facility] CPT-47478 Level 3 Est. Patient 12:16:16 CDT Ana Cristina Vallejo MD PhD [facility] CPT-51612 Level 4 Est. Patient 12:49:21 CDT Ana Cristina Vallejo MD [facility]-20009 Level 4 Est. Patient 23:02:25 CDT Ana Cristina Vallejo MD PhD [facility] CPT-33001 Level 4 Est. Patient 19:26:33 MOTION GRAPHICS DESIGNER Ana Cristina Vallejo MD PhD [facility] CPT-71296 Level 4 Est. Patient 11:28:14 CDT Ana Cristina Vallejo MD PhD [facility] CPT-14657 Level 4 Est. Patient 15:35:46 MOTION GRAPHICS DESIGNER Ana Cristina Vallejo MD PhD [facility] CPT-92625 Level 3 Est. Patient 21:06:39 MOTION GRAPHICS DESIGNER Alden Kim MD [facility] CPT-65115 Level 4 Est. Patient 15:30:54 MOTION GRAPHICS DESIGNER Ana Cristina Vallejo MD PhD [facility] Procedures Code Procedure Name Date Entry Date Standard Description CPT-95663 EKG Trac and Interp - XRAY USE ONLY 10:35:11 CDT 09/11 CPT-45968 Chest 2V Frontal and Lat - XRAY USE ONLY 10:35:11 CDT CPT-G0438 Initial Annual Wellness Exam 14:54:07 CDT CPT-G0009 Administration of Pneumococcal Vaccine 14:44:24 CDT CPT-76482 Pneumovax 23 Injection Injectable 25 MCG/0.5ML 14:44:24 CDT CPT-91654 First Vx - Ix admin for Medicare patients 14:44:24 CDT CPT-11571 Fluzone High-Dose Intramuscular Suspension 14:44:20 CDT CPT-01537 BMP - LAB USE ONLY 12:38:06 CDT CPT-71271 Urine Culture - LAB USE ONLY 16:56:33 CDT CPT-TCMM Transitional Care Mgmt-Moderate 18:08:16 CDT CPT-84425 Bone Density 09:14:12 CDT CPT-000 Give Appropriate Flu Vaccine 14:51:52 CDT CPT-96030 Fluzone High Dose (>=65 yrs.) 15:19:23 CDT CPT-75019 Immunization Single Admin 15:19:23 CDT CPT-11180 Prevnar 13 15:40:03 CDT CPT-57179 Administration single or combination vaccine inc oral 15 :40:03 CDT CPT-08672 Prevnar 13:55:07 CDT CPT-G0008 Administration of Influenza Virus Vaccine 10:49:51 CDT CPT-95278 Fluzone High-Dose Intramuscular Suspension 10:49:51 CDT CPT-24824 Knee 3V 13:31:37 CDT CPT-36252 Bone Density 09:07:05 MOTION GRAPHICS DESIGNER CPT-74967 Nail Avulsion 09:46:05 CDT CPT-37280 Administration single or combination vaccine inc oral 16 :11:54 CDT CPT-11853 Influenza High Dose age 65+ 16:11:54 CDT CPT-44314 Administration single or combination vaccine inc oral 10 :53:15 CDT CPT-14738 Influenza High Dose age 65+ 10:53:15 CDT CPT-58772 Bone Density 14:50:58 MOTION GRAPHICS DESIGNER CPT-96443 Administration single or combination vaccine inc oral 15 :41:20 MOTION GRAPHICS DESIGNER CPT-09211 Zoster Vaccine (Zostavax) 15:41:20 MOTION GRAPHICS DESIGNER CPT-18481 Spec Collection and Handling Fee 11:18:25 MOTION GRAPHICS DESIGNER CPT-59474 Administration single or combination vaccine inc oral 11 :14:20 CDT CPT-28871 Influenza High Dose age 65+ 11:14:20 CDT
--- OUTSIDE RECORDS SUMMARY | 2017-07-18 09:10 | XMS REPORT | Clinical Summary ---
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 Conditions or Problems Problem Name Problem Code Onset Date Status Entry Date Provider Comment Standard Description Annotate ROUTINE GYNECOLOGICAL EXAMINATION V72.31 Resolved Ana Cristina Vallejo MD PhD Routine gynecological examination MENOPAUSE 627.2 Ruled out Ana Cristina Vallejo MD PhD Symptomatic menopausal or female climacteric states MENOPAUSE 627.2 Active Brianda Reis [facility] Symptomatic menopausal or female climacteric states [...] Generic Name NDC Status Provider Patient Instruction EQL ONE DAILY WOMENS ORAL TABLET 1 po daily MULTIPLE VITAMINS- CALCIUM 18646923204 Active HEDY Esquivel Active CIPRO 250 MG ORAL TABS 1 tab BID for 7 days CIPROFLOXACIN HCL 37190246075 Active Deepti Junior LPN Active MACROBID 100 MG ORAL CAPS 1 tab BID for 5 days NITROFURANTOIN MONOHYD MACRO 99860576419 No Longer Active Deepti Junior LPN Active HYDROCHLOROTHIAZIDE 12.5 MG CAPS 1 pill by mouth daily HYDROCHLOROTHIAZIDE 97388216286 Active Jalil Hayes MD Active RANITIDINE HCL 150 MG CAPS once nightly RANITIDINE HCL 58254985530 Active Jalil Hayes MD Active BENAZEPRIL HCL 40 MG TABS 1 daily for blood pressure BENAZEPRIL HCL 36548684020 Active Jalil Hayes MD Active HYDROCHLOROTHIAZIDE 12.5 MG CAPS 1 pill by mouth daily, for blood pressure HYDROCHLOROTHIAZIDE 65704205603 No Longer Active Jalil Hayes MD Active AUGMENTIN 875-125 MG TAB 1 po BID x 7 days AMOXICILLIN-POT CLAVULANATE 14053693223 No Longer Active Jalil Hayes MD Active OMEPRAZOLE 40 MG CPDR 1 po q a.m. OMEPRAZOLE 70077125941 Active Peggy Pardo LPN Active MIRALAX ORAL PACK Takes daily prn POLYETHYLENE GLYCOL 3350 47834083671 No Longer Active Peggy Pardo LPN Active FLONASE ALLERGY RELIEF 50 MCG/ACT NASAL SUSP One spray each nostril daily for allergies FLUTICASONE PROPIONATE 30891324009 No Longer Active Peggy Pardo LPN Active BENADRYL ALLERGY 25 MG TABS NEEDED DIPHENHYDRAMINE HCL 81403577591 No Longer Active Peggy Pardo LPN Active ADVIL 200 MG TABS TAKE NEEDED IBUPROFEN 84151765145 No Longer Active Peggy Pardo LPN Active COLACE 100 MG CAP 1 po BID PRN Constipation DOCUSATE SODIUM 42057112633 No Longer Active Deepti Junior LPN Active ALPRAZOLAM 0.25 MG TAB 1/2-1 tablet by mouth twice a day as needed for stress ALPRAZOLAM 17310028212 No Longer Active Deepti Junior LPN Active ALENDRONATE SODIUM 70 MG TABS 1 pill by mouth weekly for osteoporosis ALENDRONATE SODIUM 35708513059 Active Mariaa Whitman APRN Active E-1000 1000 UNIT ORAL CAPS Take one by mouth daily VITAMIN E 90806001814 Active HEDY Esquivel Active OSCAL 500/200 D-3 500-200 MG-UNIT ORAL TABS Take one by mouth 3 times daily, morning, afternoon and evening.] CALCIUM CARBONATE-VITAMIN D 08008725902 Active HEDY Esquivel Active ASPIRIN 81 MG CHEW TAB 1 tablet by mouth daily ASPIRIN 12716918813 Active HEDY Esquivel Active ADULT ASPIRIN EC LOW STRENGTH 81 MG TBEC TAKE 1 TAB DAILY ASPIRIN 57545618399 No Longer Active Mariaa Whitman APRN Active ALENDRONATE SODIUM 70 MG TABS TAKE 1 TAB ONCE A WEEK ALENDRONATE SODIUM 81960803314 No Longer Active Mariaa Whitman APRN Active CETIRIZINE HCL 10 MG ORAL TABS 1 po qd PRN Allergies CETIRIZINE HCL 90823004608 Active HEDY Esquivel Active BACTRIM DS 800-160 MG TABS 1 pill by mouth twice daily, for UTI SULFAMETHOXAZOLE-TRIMETHOPRIM 42903394153 No Longer Active Ana Cristina Vallejo MD PhD Active CARVEDILOL 25 MG TABS 1 pill by mouth twice daily for blood pressure CARVEDILOL 74821926804 Active HEDY Esquivel Active SYNTHROID 0.088 MG TAB 1 tablet by mouth daily for thyroid LEVOTHYROXINE SODIUM 21648876438 Active HEDY Esquivel Active AMOXICILLIN 500 MG CAP 1 tab by mouth 3 times daily AMOXICILLIN 74285017505 No Longer Active Alden Kim MD Active CVS VITAMIN D3 1000 UNIT CAPS TAKE 2 CAP DAILY CHOLECALCIFEROL Active Ana Cristina Vallejo MD PhD Active CALCIUM 500 MG TABS TAKE 3 TABS DAILY CALCIUM 34327690763 No Longer Active Mariaa Whitman APRN Active MULTIVITAMINS TABS TAKE 1 TAB DAILY MULTIPLE VITAMIN No Longer Active Aneta Tavarezum FUDGE CANDY MAKER Active TYLENOL 325 MG TABS NEEDED ACETAMINOPHEN 38792654646 Active Aneta Tavarezum FUDGE CANDY MAKER Active GLUCOSAMINE-CHONDROITIN 500-400 MG TABS TAKE 1 TAB DAILY GLUCOSAMINE-CHONDROITIN 38341548265 Active Mariaa Whitman APRN Active NORVASC 10 MG TABS TAKE 1 TAB DAILY AMLODIPINE BESYLATE 24948668236 Active HEDY Esquivel Active LOVASTATIN 20 MG TABS 1 PO Q HS FOR CHOLESTEROL LOVASTATIN 15421847431 Active HEDY Esquivel Active ALENDRONATE SODIUM 70 MG TABS TAKE 1 TAB ONCE A WEEK ALENDRONATE SODIUM 70 MG TABS 005500 ALENDRONATE SODIUM Inactive ADULT ASPIRIN EC LOW STRENGTH 81 MG TBEC TAKE 1 TAB DAILY ADULT ASPIRIN EC LOW STRENGTH 81 MG TBEC 040573 ASPIRIN Inactive ALPRAZOLAM 0.25 MG TAB 1/2-1 tablet by mouth twice a day as needed for stress ALPRAZOLAM 0.25 MG TAB 264536 ALPRAZOLAM Inactive COLACE 100 MG CAP 1 po BID PRN Constipation COLACE 100 MG CAP 0318061 DOCUSATE SODIUM Inactive ADVIL 200 MG TABS TAKE NEEDED ADVIL 200 MG TABS 447682 IBUPROFEN Inactive BENADRYL ALLERGY 25 MG TABS NEEDED BENADRYL ALLERGY 25 MG TABS 2371607 DIPHENHYDRAMINE HCL Inactive FLONASE ALLERGY RELIEF 50 MCG/ACT NASAL SUSP One spray each nostril daily for allergies FLONASE ALLERGY RELIEF 50 MCG/ACT NASAL SUSP 1530738 FLUTICASONE PROPIONATE Inactive MIRALAX ORAL PACK Takes daily prn MIRALAX ORAL PACK 905383 POLYETHYLENE GLYCOL 3350 Inactive AUGMENTIN 875-125 MG TAB 1 po BID x 7 days AUGMENTIN 875-125 MG TAB 828504 AMOXICILLIN-POT CLAVULANATE Inactive HYDROCHLOROTHIAZIDE 12.5 MG CAPS 1 pill by mouth daily, for blood pressure HYDROCHLOROTHIAZIDE 12.5 MG CAPS 852038 HYDROCHLOROTHIAZIDE Inactive AMOXICILLIN 500 MG CAP 1 tab by mouth 3 times daily AMOXICILLIN 500 MG CAP 281004 AMOXICILLIN Inactive BACTRIM DS 800-160 MG TABS 1 pill by mouth twice daily, for UTI BACTRIM DS 800-160 MG TABS 097468 SULFAMETHOXAZOLE-TRIMETHOPRIM Inactive MACROBID 100 MG ORAL CAPS 1 tab BID for 5 days MACROBID 100 MG ORAL CAPS 9741785 NITROFURANTOIN MONOHYD MACRO Inactive Advance Directives Directive [...] Panel - Chemistry sodium, serum 130 mmol/L 098-528 7909/10/19 potassium, serum 3.5 mmol/L 3.5-5.2 chloride, serum 92 mmol/L 98-107 carbon dioxide, venous blood 33.6 mmol/L 21.0-32.0 blood glucose 118 mg/dL 65-110 calcium, serum 8.8 mg/dL 8.5-10.1 urea nitrogen, blood 11 mg/dL 7-18 creatinine, serum 1.12 mg/dL 0.55-1.30 sodium, serum 132 mmol/L 722-922 6977/08/09 potassium, serum 4.2 mmol/L 3.5-5.2 chloride, serum 99 mmol/L 98-107 carbon dioxide, venous blood 24.7 mmol/L 21.0-32.0 blood glucose 119 mg/dL 65-110 calcium, serum 8.5 mg/dL 8.5-10.1 urea nitrogen, blood 14 mg/dL 7-18 creatinine, serum 1.16 mg/dL 0.60-1.30 Lab Report: CBC-QUEST, COMPREHENSIVE METABOLIC PANEL, LIPID PANEL, Micro ... - Chemistry cholesterol, serum 162 mg/dL 996-236 4040/05/01 HDL cholesterol, serum 68 mg/dL > OR=46 [...] % 11.0-15.0 platelet count 297 THOUSAND/UL 10*3/mm3 728-141 8695/05/01 mean platelet volume 8.9 fL 7.5-12.5 Lab [...] Code Encounter Date Provider Facility [facility]-[id number] Level 3 Est. Patient 13:55:49 CDT Jalil Hayes MD [facility] Level 3 Est. Patient 14:38:15 CDT Jalil Hayes MD [facility]42 Level 4 Est. Patient 14:40:54 CDT Bee Rosas [facility] [place] Level 4 Est. Patient 10:31:15 CDT Jalil Hayes MD [facility]78001 Level 4 Est. Patient 15:07:54 CDT Mariaa Whitman [facility] [place] Level 3 Est. Patient 20:45:54 WAGON WASHER Mariaa Whitman [facility]-99164 Level 3 Est. Patient 12:16:16 CDT Ana Cristina Vallejo MD [facility] Level 4 Est. Patient 12:49:21 CDT Ana Cristina Vallejo MD [facility]31607 Level 4 Est. Patient 23:02:25 CDT Ana Cristina Vallejo MD [facility]6[address]39 Level 4 Est. Patient 19:26:33 WAGON WASHER Ana Cristina Vallejo MD [facility] Level 4 Est. Patient 11:28:14 CDT Ana Cristina Vallejo MD [facility]97145 Level 4 Est. Patient 15:35:46 WAGON WASHER Ana Cristina Vallejo MD [facility] CPT-15651 Level 3 Est. Patient 21:06:39 WAGON WASHER Alden Kim MD [facility] CPT-34365 Level 4 Est. Patient 15:30:54 WAGON WASHER Ana Cristina Vallejo MD PhD [facility] Procedures Code Procedure Name Date Entry Date Standard Description CPT-TCMM Transitional Care Mgmt-Moderate 14:41:55 CDT CPT-70670 EKG Trac and Interp - XRAY USE ONLY 10:35:11 CDT 09/11 CPT-48669 Chest 2V Frontal and Lat - XRAY USE ONLY 10:35:11 CDT CPT-G0438 Initial Annual Wellness Exam 14:54:07 CDT CPT-G0009 Administration of Pneumococcal Vaccine 14:44:24 CDT CPT-76899 Pneumovax 23 Injection Injectable 25 MCG/0.5ML 14:44:24 CDT CPT-60067 First Vx - Ix admin for Medicare patients 14:44:24 CDT CPT-94113 Fluzone High-Dose Intramuscular Suspension 14:44:20 CDT CPT-54259 BMP - LAB USE ONLY 12:38:06 CDT CPT-71585 Urine Culture - LAB USE ONLY 16:56:33 CDT CPT-TCMM Transitional Care Mgmt-Moderate 18:08:16 CDT CPT-38837 Bone Density 09:14:12 CDT CPT-000 Give Appropriate Flu Vaccine 14:51:52 CDT CPT-59895 Fluzone High Dose (>=65 yrs.) 15:19:23 CDT CPT-63686 Immunization Single Admin 15:19:23 CDT CPT-97189 Prevnar 15:40:03 CDT CPT-28334 Administration single or combination vaccine inc oral 15 :40:03 CDT CPT-37599 Prevnar 13 13:55:07 CDT CPT-G0008 Administration of Influenza Virus Vaccine 10:49:51 CDT CPT-66787 Fluzone High-Dose Intramuscular Suspension 10:49:51 CDT CPT-61628 Knee 3V 13:31:37 CDT CPT-04668 Bone Density 09:07:05 WAGON WASHER CPT-72946 Nail Avulsion 09:46:05 CDT CPT-98627 Administration single or combination vaccine inc oral 16 :11:54 CDT CPT-18098 Influenza High Dose age 65+ 16:11:54 CDT CPT-70380 Administration single or combination vaccine inc oral 10 :53:15 CDT CPT-61599 Influenza High Dose age 65+ 10:53:15 CDT CPT-42781 Bone Density 14:50:58 WAGON WASHER CPT-82776 Administration single or combination vaccine inc oral 15 :41:20 WAGON WASHER CPT-18313 Zoster Vaccine (Zostavax) 15:41:20 WAGON WASHER CPT-97583 Spec Collection and Handling Fee 11:18:25 WAGON WASHER CPT-92820 Administration single or combination vaccine inc oral 11 :14:20 CDT CPT-78640 Influenza High Dose age 65+ 11:14:20 CDT
--- OUTSIDE RECORDS SUMMARY | 2017-07-18 09:11 | XMS REPORT | Clinical Summary ---
Author Author Admin, DANDRE Organization [facility] Address Unknown Phone Unavailable Allergies, Adverse Reactions, Alerts Allergy Name Reaction Description Start Date Severity Status Provider NKDA Critical Active Mariaa Whitman ROTARY PUMP OPERATOR Conditions or Problems Problem Name Problem [...] 1 daily for blood pressure BENAZEPRIL HCL 55813730334 Active Jalil Hayes MD Active HYDROCHLOROTHIAZIDE 12.5 MG CAPS 1 pill by mouth daily, for blood pressure HYDROCHLOROTHIAZIDE 92248748854 No Longer Active Jalil Hayes MD Active AUGMENTIN 875-125 MG TAB 1 po BID x 7 days AMOXICILLIN-POT CLAVULANATE 93823133004 No Longer Active Jalil Hayes MD Active OMEPRAZOLE 40 MG CPDR 1 po q a.m. OMEPRAZOLE 79924690601 Active Peggy Pardo LPN Active MIRALAX ORAL PACK Takes daily prn POLYETHYLENE GLYCOL 3350 67472910582 No Longer Active Peggy Pardo LPN Active FLONASE ALLERGY RELIEF 50 MCG/ACT NASAL SUSP One spray each nostril daily for allergies FLUTICASONE PROPIONATE 69985591970 No Longer Active Peggy Pardo LPN Active BENADRYL ALLERGY 25 MG TABS NEEDED DIPHENHYDRAMINE HCL 60125936503 No Longer Active Peggy Pardo LPN Active ADVIL 200 MG TABS TAKE NEEDED IBUPROFEN 48680121075 No Longer Active Peggy Edvin, AUTOMOBILE MECHANIC ASSISTANT Active COLACE 100 MG CAP 1 po BID PRN Constipation DOCUSATE SODIUM 41302633106 No Longer Active Deeptitayler Junior LPN Active ALPRAZOLAM 0.25 MG TAB 1/2-1 tablet by mouth twice a day as needed for stress ALPRAZOLAM 07761689115 No Longer Active Deepti Sandi ANGUIANON Active ALENDRONATE SODIUM 70 MG TABS 1 pill by mouth weekly for osteoporosis ALENDRONATE SODIUM 43784993610 Active Briandahelen Reis Robin Active E-1000 1000 UNIT ORAL CAPS Take one by mouth daily VITAMIN E 62444265518 Active Brianda Reis Robin Active OSCAL 500/200 D-3 500-200 MG-UNIT ORAL TABS Take one by mouth 3 times daily, morning, afternoon and evening.] CALCIUM CARBONATE-VITAMIN D 22140809597 Active Brianda KNOTT Active ASPIRIN 81 MG CHEW TAB 1 tablet by mouth daily ASPIRIN 31613784331 Active Brianda Reis Robin Active ADULT ASPIRIN EC LOW STRENGTH 81 MG TBEC TAKE 1 TAB DAILY ASPIRIN 58345469551 No Longer Active Mariaa Whitman ROTARY PUMP OPERATOR Active ALENDRONATE SODIUM 70 MG TABS TAKE 1 TAB ONCE A WEEK ALENDRONATE SODIUM 32381903659 No Longer Active Mariaa Whitman ROTARY PUMP OPERATOR Active CETIRIZINE HCL 10 MG ORAL TABS 1 po qd PRN Allergies CETIRIZINE HCL 43805553966 Active HEDY Esquivel Active BACTRIM DS 800-160 MG TABS 1 pill by mouth twice daily, for UTI SULFAMETHOXAZOLE-TRIMETHOPRIM 69665420272 No Longer Active Ana Cristina Vallejo MD PhD Active CARVEDILOL 25 MG TABS 1 pill by mouth twice daily for blood pressure CARVEDILOL 00345118741 Active HEDY Esquivel Active SYNTHROID 0.088 MG TAB 1 tablet by mouth daily for thyroid LEVOTHYROXINE SODIUM 85913169318 Active HEDY Esquivel Active AMOXICILLIN 500 MG CAP 1 tab by mouth 3 times daily AMOXICILLIN 12039610581 No Longer Active Alden Kim MD Active CVS VITAMIN D3 1000 UNIT CAPS TAKE 2 CAP DAILY CHOLECALCIFEROL Active Ana Cristina Vallejo MD PhD Active CALCIUM 500 MG TABS TAKE 3 TABS DAILY CALCIUM 87876767887 No Longer Active Mariaa Whitman APRN Active MULTIVITAMINS TABS TAKE 1 TAB DAILY MULTIPLE VITAMIN Active Aneta D Leo AUTOMOBILE MECHANIC ASSISTANT Active TYLENOL 325 MG TABS NEEDED ACETAMINOPHEN 69151628119 Active Aneta Singh Leo AUTOMOBILE MECHANIC ASSISTANT Active GLUCOSAMINE-CHONDROITIN 500-400 MG TABS TAKE 1 TAB DAILY GLUCOSAMINE-CHONDROITIN 59298188235 Active Mariaa Whitman APRN Active NORVASC 10 MG TABS TAKE 1 TAB DAILY AMLODIPINE BESYLATE 22757988358 Active HEDY Esquivel Active LOVASTATIN 20 MG TABS 1 PO Q HS FOR CHOLESTEROL LOVASTATIN 03008889294 Active HEDY Esquivel Active RANITIDINE HCL 150 MG CAPS 1 PO Q 12 HRS RANITIDINE HCL 49159924877 Active HEDY Esquivel Active ALENDRONATE SODIUM 70 MG TABS TAKE 1 TAB ONCE A WEEK ALENDRONATE SODIUM 70 MG TABS 095429 ALENDRONATE SODIUM Inactive ADULT ASPIRIN EC LOW STRENGTH 81 MG TBEC TAKE 1 TAB DAILY ADULT ASPIRIN EC LOW STRENGTH 81 MG TBEC 206606 ASPIRIN Inactive ALPRAZOLAM 0.25 MG TAB 1/2-1 tablet by mouth twice a day as needed for stress ALPRAZOLAM 0.25 MG TAB 043332 ALPRAZOLAM Inactive COLACE 100 MG CAP 1 po BID PRN Constipation COLACE 100 MG CAP 7473475 DOCUSATE SODIUM Inactive ADVIL 200 MG TABS TAKE NEEDED ADVIL 200 MG TABS 465719 IBUPROFEN Inactive BENADRYL ALLERGY 25 MG TABS NEEDED BENADRYL ALLERGY 25 MG TABS 2149238 DIPHENHYDRAMINE HCL Inactive FLONASE ALLERGY RELIEF 50 MCG/ACT NASAL SUSP One spray each nostril daily for allergies FLONASE ALLERGY RELIEF 50 MCG/ACT NASAL SUSP 3030882 FLUTICASONE PROPIONATE Inactive MIRALAX ORAL PACK Takes daily prn MIRALAX ORAL PACK 926938 POLYETHYLENE GLYCOL 3350 Inactive AUGMENTIN 875-125 MG TAB 1 po BID x 7 days AUGMENTIN 875-125 MG TAB 523590 AMOXICILLIN-POT CLAVULANATE Inactive HYDROCHLOROTHIAZIDE 12.5 MG CAPS 1 pill by mouth daily, for blood pressure HYDROCHLOROTHIAZIDE 12.5 MG CAPS 356827 HYDROCHLOROTHIAZIDE Inactive AMOXICILLIN 500 MG CAP 1 tab by mouth 3 times daily AMOXICILLIN 500 MG CAP 970614 AMOXICILLIN Inactive BACTRIM DS 800-160 MG TABS 1 pill by mouth twice daily, for UTI BACTRIM DS 800-160 MG TABS 439861 SULFAMETHOXAZOLE-TRIMETHOPRIM Inactive Advance Directives Directive Description Start [...] Panel - Chemistry sodium, serum 130 mmol/L 894-618 9902/10/19 potassium, serum 3.5 mmol/L 3.5-5.2 chloride, serum 92 mmol/L 98-107 carbon dioxide, venous blood 33.6 mmol/L 21.0-32.0 blood glucose 118 mg/dL 65-110 calcium, serum 8.8 mg/dL 8.5-10.1 urea nitrogen, blood 11 mg/dL 7-18 creatinine, serum 1.12 mg/dL 0.55-1.30 Lab Report: CBC-QUEST, COMPREHENSIVE METABOLIC PANEL, LIPID PANEL, Micro ... - Chemistry cholesterol, serum 162 mg/dL 298-125 7620/05/01 HDL cholesterol, serum 68 mg/dL > OR=46 [...] % 11.0-15.0 platelet count 297 THOUSAND/UL 10*3/mm3 728-679 2699/05/01 mean platelet volume 8.9 fL 7.5-12.5 Lab [...] Negative Encounters Code Encounter Date Provider Facility [facility]-70056 Level 3 Est. Patient 14:38:15 CDT Jalil Hayes MD [facility]-[address] Level 4 Est. Patient 14:40:54 CDT Bee Rosas [facility]-07384 Level 4 Est. Patient 10:31:15 CDT Jalil Hayes MD [facility]-[address]75 Level 4 Est. Patient 15:07:54 CDT Mariaa Whitman [facility]-81649 Level 3 Est. Patient 20:45:54 PHYSICIAN ASSISTANT Mariaa Whitman [facility]-77115 Level 3 Est. Patient 12:16:16 CDT Ana Cristina Vallejo MD [facility] Level 4 Est. Patient 12:49:21 CDT Ana Cristina Vallejo MD [facility]31806 Level 4 Est. Patient 23:02:25 CDT Ana Cristina Vallejo MD [facility]135 Level 4 Est. Patient 19:26:33 PHYSICIAN ASSISTANT Ana Cristina Vallejo MD [facility]57560 Level 4 Est. Patient 11:28:14 CDT Ana Cristina Vallejo MD [facility]463 Level 4 Est. Patient 15:35:46 PHYSICIAN ASSISTANT Ana Cristina Vallejo MD [facility]414[address] Level 3 Est. Patient 21:06:39 PHYSICIAN ASSISTANT Alden Kim MD [facility] CPT-55690 Level 4 Est. Patient 15:30:54 PHYSICIAN ASSISTANT Ana Cristina Vallejo MD PhD [facility] Procedures Code Procedure Name Date Entry Date Standard Description CPT-26491 EKG Trac and Interp - XRAY USE ONLY 10:35:11 CDT 09/11 CPT-35504 Chest 2V Frontal and Lat - XRAY USE ONLY 10:35:11 CDT CPT-G0438 Initial Annual Wellness Exam 14:54:07 CDT CPT-G0009 Administration of Pneumococcal Vaccine 14:44:24 CDT CPT-82391 Pneumovax 23 Injection Injectable 25 MCG/0.5ML 14:44:24 CDT CPT-12406 First Vx - Ix admin for Medicare patients 14:44:24 CDT CPT-11328 Fluzone High-Dose Intramuscular Suspension 14:44:20 CDT CPT-77742 BMP - LAB USE ONLY 12:38:06 CDT CPT-77610 Urine Culture - LAB USE ONLY 16:56:33 CDT CPT-TCMM Transitional Care Mgmt-Moderate 18:08:16 CDT CPT-50243 Bone Density 09:14:12 CDT CPT-000 Give Appropriate Flu Vaccine 14:51:52 CDT CPT-56317 Fluzone High Dose (>=65 yrs.) 15:19:23 CDT CPT-17599 Immunization Single Admin 15:19:23 CDT CPT-01957 Prevnar 13 15:40:03 CDT CPT-44744 Administration single or combination vaccine inc oral 15 :40:03 CDT CPT-87694 Prevnar 13 13:55:07 CDT CPT-G0008 Administration of Influenza Virus Vaccine 10:49:51 CDT CPT-27551 Fluzone High-Dose Intramuscular Suspension 10:49:51 CDT CPT-95354 Knee 3V 13:31:37 CDT CPT-78957 Bone Density 09:07:05 PHYSICIAN ASSISTANT CPT-80001 Nail Avulsion 09:46:05 CDT CPT-13576 Administration single or combination vaccine inc oral 16 :11:54 CDT CPT-98005 Influenza High Dose age 65+ 16:11:54 CDT CPT-68795 Administration single or combination vaccine inc oral 10 :53:15 CDT CPT-29228 Influenza High Dose age 65+ 10:53:15 CDT CPT-78943 Bone Density 14:50:58 PHYSICIAN ASSISTANT CPT-19604 Administration single or combination vaccine inc oral 15 :41:20 PHYSICIAN ASSISTANT CPT-89961 Zoster Vaccine (Zostavax) 15:41:20 PHYSICIAN ASSISTANT CPT-40798 Spec Collection and Handling Fee 11:18:25 PHYSICIAN ASSISTANT CPT-60934 Administration single or combination vaccine inc oral 11 :14:20 CDT CPT-50443 Influenza High Dose age 65+ 11:14:20 CDT
--- OUTSIDE RECORDS SUMMARY | 2017-07-18 09:11 | XMS REPORT | Clinical Summary ---
Author Author Admin, DANDRE Organization [facility] [employer] Address Unknown Phone Unavailable Allergies, Adverse Reactions, Alerts Allergy Name Reaction Description Start Date Severity Status Provider NKDA Critical Active Mariaa Whitman CHILDREN'S SERVICE SUPERVISOR Conditions or Problems Problem Name Problem [...] ORAL CAPSULE 1 capsule po daily CHOLECALCIFEROL 43928515106 Active HEDY Esquivel Active VITAMIN D3 2000 UNIT TABS 1 daily, for vitamin D deficiency CHOLECALCIFEROL 61334953531 Active HEDY Esquivel Active EQL ONE DAILY WOMENS ORAL TABLET 1 po daily MULTIPLE VITAMINS- CALCIUM 86622829081 Active HEDY Esquivel Active CIPRO 250 MG ORAL TABS 1 tab BID for 7 days CIPROFLOXACIN HCL 31272683110 Active Deepti Junior LPN Active MACROBID 100 MG ORAL CAPS 1 tab BID for 5 days NITROFURANTOIN MONOHYD MACRO 94291082294 No Longer Active Deepti Junior LPN Active HYDROCHLOROTHIAZIDE 12.5 MG CAPS 1 pill by mouth daily HYDROCHLOROTHIAZIDE 80659823337 Active Jalil Hyaes MD Active RANITIDINE HCL 150 MG CAPS once nightly RANITIDINE HCL 51768657787 Active Jalil Hayes MD Active BENAZEPRIL HCL 40 MG TABS 1 daily for blood pressure BENAZEPRIL HCL 37540117002 Active Jalil Hayes MD Active HYDROCHLOROTHIAZIDE 12.5 MG CAPS 1 pill by mouth daily, for blood pressure HYDROCHLOROTHIAZIDE 62072158283 No Longer Active Jalil Hayes MD Active AUGMENTIN 875-125 MG TAB 1 po BID x 7 days AMOXICILLIN-POT CLAVULANATE 95036944667 No Longer Active Jalil Hayes MD Active OMEPRAZOLE 40 MG CPDR 1 po q a.m. OMEPRAZOLE 44377502436 Active Peggy Pardo LPN Active MIRALAX ORAL PACK Takes daily prn POLYETHYLENE GLYCOL 3350 35202768520 No Longer Active Peggy Pardo LPN Active FLONASE ALLERGY RELIEF 50 MCG/ACT NASAL SUSP One spray each nostril daily for allergies FLUTICASONE PROPIONATE 25077282255 No Longer Active Peggy Pardo LPN Active BENADRYL ALLERGY 25 MG TABS NEEDED DIPHENHYDRAMINE HCL 78857509602 No Longer Active Peggy Pardo LPN Active ADVIL 200 MG TABS TAKE NEEDED IBUPROFEN 80763883245 No Longer Active Peggy Pardo LPN Active COLACE 100 MG CAP 1 po BID PRN Constipation DOCUSATE SODIUM 31144282394 No Longer Active Deepti Junior LPN Active ALPRAZOLAM 0.25 MG TAB 1/2-1 tablet by mouth twice a day as needed for stress ALPRAZOLAM 79403607137 No Longer Active Deepti Junior LPN Active ALENDRONATE SODIUM 70 MG TABS 1 pill by mouth weekly for osteoporosis ALENDRONATE SODIUM 22802106840 Active Mariaa Whitman APRN Active E-1000 1000 UNIT ORAL CAPS Take one by mouth daily VITAMIN E 65482242270 Active HEDY Esquivel Active OSCAL 500/200 D-3 500-200 MG-UNIT ORAL TABS Take one by mouth 3 times daily, morning, afternoon and evening.] CALCIUM CARBONATE-VITAMIN D 72543845049 Active HEDY Esquivel Active ASPIRIN 81 MG CHEW TAB 1 tablet by mouth daily ASPIRIN 79186697640 Active HEDY Esquivel Active ADULT ASPIRIN EC LOW STRENGTH 81 MG TBEC TAKE 1 TAB DAILY ASPIRIN 62921662198 No Longer Active Mariaa Whitman APRN Active ALENDRONATE SODIUM 70 MG TABS TAKE 1 TAB ONCE A WEEK ALENDRONATE SODIUM 28491531235 No Longer Active Mariaa Whitman APRN Active CETIRIZINE HCL 10 MG ORAL TABS 1 po qd PRN Allergies CETIRIZINE HCL 71582570526 Active HEDY Esquivel Active BACTRIM DS 800-160 MG TABS 1 pill by mouth twice daily, for UTI SULFAMETHOXAZOLE-TRIMETHOPRIM 73207841369 No Longer Active Ana Cristina Vallejo MD PhD Active CARVEDILOL 25 MG TABS 1 pill by mouth twice daily for blood pressure CARVEDILOL 49370134831 Active HEDY Esquivel Active SYNTHROID 0.088 MG TAB 1 tablet by mouth daily for thyroid LEVOTHYROXINE SODIUM 32761017409 Active HEDY Esquivel Active AMOXICILLIN 500 MG CAP 1 tab by mouth 3 times daily AMOXICILLIN 66226445086 No Longer Active Alden Kim MD Active CALCIUM 500 MG TABS TAKE 3 TABS DAILY CALCIUM 86599901030 No Longer Active Mariaa Whitman APRN Active MULTIVITAMINS TABS TAKE 1 TAB DAILY MULTIPLE VITAMIN No Longer Active Aneta Bailey LPN Active TYLENOL 325 MG TABS NEEDED ACETAMINOPHEN 34744156751 Active Aneta D Leo GUARD LIEUTENANT Active GLUCOSAMINE-CHONDROITIN 500-400 MG TABS TAKE 1 TAB DAILY GLUCOSAMINE-CHONDROITIN 11901694692 Active Mariaa Whitman CHILDREN'S SERVICE SUPERVISOR Active NORVASC 10 MG TABS TAKE 1 TAB DAILY AMLODIPINE BESYLATE 33606418746 Active HEDY Esquivel Active LOVASTATIN 20 MG TABS 1 PO Q HS FOR CHOLESTEROL LOVASTATIN 92004451877 Active HEDY Esquivel Active ALENDRONATE SODIUM 70 MG TABS TAKE 1 TAB ONCE A WEEK ALENDRONATE SODIUM 70 MG TABS 261152 ALENDRONATE SODIUM Inactive ADULT ASPIRIN EC LOW STRENGTH 81 MG TBEC TAKE 1 TAB DAILY ADULT ASPIRIN EC LOW STRENGTH 81 MG TBEC 308741 ASPIRIN Inactive ALPRAZOLAM 0.25 MG TAB 1/2-1 tablet by mouth twice a day as needed for stress ALPRAZOLAM 0.25 MG TAB 569105 ALPRAZOLAM Inactive COLACE 100 MG CAP 1 po BID PRN Constipation COLACE 100 MG CAP 0703061 DOCUSATE SODIUM Inactive ADVIL 200 MG TABS TAKE NEEDED ADVIL 200 MG TABS 052035 IBUPROFEN Inactive BENADRYL ALLERGY 25 MG TABS NEEDED BENADRYL ALLERGY 25 MG TABS 8452210 DIPHENHYDRAMINE HCL Inactive FLONASE ALLERGY RELIEF 50 MCG/ACT NASAL SUSP One spray each nostril daily for allergies FLONASE ALLERGY RELIEF 50 MCG/ACT NASAL SUSP 6598402 FLUTICASONE PROPIONATE Inactive MIRALAX ORAL PACK Takes daily prn MIRALAX ORAL PACK 303896 POLYETHYLENE GLYCOL 3350 Inactive AUGMENTIN 875-125 MG TAB 1 po BID x 7 days AUGMENTIN 875-125 MG TAB 581087 AMOXICILLIN-POT CLAVULANATE Inactive HYDROCHLOROTHIAZIDE 12.5 MG CAPS 1 pill by mouth daily, for blood pressure HYDROCHLOROTHIAZIDE 12.5 MG CAPS 094277 HYDROCHLOROTHIAZIDE Inactive AMOXICILLIN 500 MG CAP 1 tab by mouth 3 times daily AMOXICILLIN 500 MG CAP 774282 AMOXICILLIN Inactive BACTRIM DS 800-160 MG TABS 1 pill by mouth twice daily, for UTI BACTRIM DS 800-160 MG TABS 022442 SULFAMETHOXAZOLE-TRIMETHOPRIM Inactive MACROBID 100 MG ORAL CAPS 1 tab BID for 5 days MACROBID 100 MG ORAL CAPS 7812412 NITROFURANTOIN MONOHYD MACRO Inactive Advance Directives Directive [...] Panel - Chemistry sodium, serum 130 mmol/L 228-907 5883/10/19 potassium, serum 3.5 mmol/L 3.5-5.2 chloride, serum 92 mmol/L 98-107 carbon dioxide, venous blood 33.6 mmol/L 21.0-32.0 blood glucose 118 mg/dL 65-110 calcium, serum 8.8 mg/dL 8.5-10.1 urea nitrogen, blood 11 mg/dL 7-18 creatinine, serum 1.12 mg/dL 0.55-1.30 sodium, serum 132 mmol/L 841-239 6826/08/09 potassium, serum 4.2 mmol/L 3.5-5.2 chloride, serum 99 mmol/L 98-107 carbon dioxide, venous blood 24.7 mmol/L 21.0-32.0 blood glucose 119 mg/dL 65-110 calcium, serum 8.5 mg/dL 8.5-10.1 urea nitrogen, blood 14 mg/dL 7-18 creatinine, serum 1.16 mg/dL 0.60-1.30 Lab Report: CBC-QUEST, COMPREHENSIVE METABOLIC PANEL, LIPID PANEL, Micro ... - Chemistry cholesterol, serum 162 mg/dL 893-657 7506/05/01 HDL cholesterol, serum 68 mg/dL > OR=46 [...] % 11.0-15.0 platelet count 297 THOUSAND/UL 10*3/mm3 051-215 5690/05/01 mean platelet volume 8.9 fL 7.5-12.5 Lab [...] 5.0-8.5 Encounters Code Encounter Date Provider Facility [facility]-[id number] Level 3 Est. Patient 13:55:49 CDT Jalil Hayes MD [facility] [place]36887 Level 3 Est. Patient 14:38:15 CDT Jalil Hayes MD [facility]46361 Level 4 Est. Patient 14:40:54 CDT Bee Rosas [facility]20347 Level 4 Est. Patient 10:31:15 CDT Jalil Hayes MD [facility] [place]25625 Level 4 Est. Patient 15:07:54 CDT Mariaa Whitman [facility]57981 Level 3 Est. Patient 20:45:54 MONEY COUNTER Mariaa Whitman [facility]71959 Level 3 Est. Patient 12:16:16 CDT Ana Cristina Vallejo MD [facility]75941 Level 4 Est. Patient 12:49:21 CDT Ana Cristina Vallejo MD [facility]23530 Level 4 Est. Patient 23:02:25 CDT Ana Cristina Vallejo MD [facility]58857 Level 4 Est. Patient 19:26:33 MONEY COUNTER Ana Cristina Vallejo MD [facility]89698 Level 4 Est. Patient 11:28:14 CDT Ana Cristina Vallejo MD PhD [facility] CPT-88167 Level 4 Est. Patient 15:35:46 MONEY COUNTER Ana Cristina Vallejo MD PhD [facility] CPT-73961 Level 3 Est. Patient 21:06:39 MONEY COUNTER Alden Kim MD [facility] CPT-65385 Level 4 Est. Patient 15:30:54 MONEY COUNTER Ana Cristina Vallejo MD PhD [facility] Procedures Code Procedure Name Date Entry Date Standard Description CPT-22767 First Vx - Ix admin for Medicare patients 13:35:01 CDT CPT-64914 Fluzone High-Dose Intramuscular Suspension 13:35:01 CDT CPT-TCMM Transitional Care Mgmt-Moderate 14:41:55 CDT CPT-43470 EKG Trac and Interp - XRAY USE ONLY 10:35:11 CDT 09/11 CPT-85346 Chest 2V Frontal and Lat - XRAY USE ONLY 10:35:11 CDT CPT-G0438 Initial Annual Wellness Exam 14:54:07 CDT CPT-G0009 Administration of Pneumococcal Vaccine 14:44:24 CDT CPT-10749 Pneumovax 23 Injection Injectable 25 MCG/0.5ML 14:44:24 CDT CPT-23868 First Vx - Ix admin for Medicare patients 14:44:24 CDT CPT-52150 Fluzone High-Dose Intramuscular Suspension 14:44:20 CDT CPT-71715 BMP - LAB USE ONLY 12:38:06 CDT CPT-68826 Urine Culture - LAB USE ONLY 16:56:33 CDT CPT-TCMM Transitional Care Mgmt-Moderate 18:08:16 CDT CPT-91038 Bone Density 09:14:12 CDT CPT-000 Give Appropriate Flu Vaccine 14:51:52 CDT CPT-83024 Fluzone High Dose (>=65 yrs.) 15:19:23 CDT CPT-88240 Immunization Single Admin 15:19:23 CDT CPT-66080 Prevnar 13 15:40:03 CDT CPT-02289 Administration single or combination vaccine inc oral 15 :40:03 CDT CPT-52123 Prevnar 13:55:07 CDT CPT-G0008 Administration of Influenza Virus Vaccine 10:49:51 CDT CPT-32332 Fluzone High-Dose Intramuscular Suspension 10:49:51 CDT CPT-71833 Knee 3V 13:31:37 CDT CPT-84126 Bone Density 09:07:05 MONEY COUNTER CPT-66758 Nail Avulsion 09:46:05 CDT CPT-74209 Administration single or combination vaccine inc oral 16 :11:54 CDT CPT-76558 Influenza High Dose age 65+ 16:11:54 CDT CPT-35969 Administration single or combination vaccine inc oral 10 :53:15 CDT CPT-82391 Influenza High Dose age 65+ 10:53:15 CDT CPT-59887 Bone Density 14:50:58 MONEY COUNTER CPT-62548 Administration single or combination vaccine inc oral 15 :41:20 MONEY COUNTER CPT-20381 Zoster Vaccine (Zostavax) 15:41:20 MONEY COUNTER CPT-78307 Spec Collection and Handling Fee 11:18:25 MONEY COUNTER CPT-32690 Administration single or combination vaccine inc oral 11 :14:20 CDT CPT-77970 Influenza High Dose age 65+ 11:14:20 CDT
--- OUTSIDE RECORDS SUMMARY | 2017-07-18 09:12 | XMS REPORT ---
Author Author [facility] [employer] [facility] Medical Staff Organization [facility] Address [address] [place] [address] Phone [phone] Care Team Providers Care Mat Sewer Name Role Phone IRISH ANDRE APRN PP [phone] Summary purpose TRANSITION OF CARE AUTO GENERATION [...] diagnostic tests and/or laboratory data RESULTS Chemistry [id number]:23:00 Result Normal Range Units Sodium L 128 [...] Estimated GFR L 51 >=60 mL/min/1.7 Hematology 52-96-706832:23:00 Result Normal Range Units WBC 5.4 4.8-10.8 103/uL RBC L 3.7 4.2-5.4 106/uL HGB L 11.3 12.0-16.0 g/dl HCT L 32.8 36.9-47.0 % MCV 89.4 81-99 FL MCH 30.8 27-31 pg MCHC 34.5 33-37 g/dl RDW 12.8 11.5-15.5 % PLT 273 130-400 103/uL MPV 9.6 7.3-10.4 FL Neutro % 52.3 40-70 % Lymph % 31.5 20-40 % [place] % H 13.5 0-10.0 % Eos % 1.7 0-7.0 % Baso % 0.6 0-2 % Neutro # 2.8 1.5-7.5 103/uL Lymph # 1.7 0.9-4.0 103/uL [place] # 0.7 0-0.8 103/uL Eos # 0.1 0-0.6 103/uL Baso # 0.0 0-0.1 103/uL Reference Lab ([facility]) :23: Result Normal Range Units D-Dimer 357 0-400 ng/ml Cardiac :: Result Normal Range Units CK 191 26-192 [...] should be interpreted with caution. Radiology Results 23: Result Normal Range Units MPV 9.6 7.3-10.4 FL History of procedures No procedures recorded for this patient visit. Functional status Functional Status Finding Observation Time Diet regular :05 Abdomen Appearance round :05 Abdomen soft :05 Bowel Sounds present 12-66-731980:05 [place] no [id number]:05 Urination burning 56-77-182218:05 Quality sym/unlabored :05 Cough absent :05 Secretions no :05 Breath Sounds RUL clear :05 Breath Sounds RML clear :05 Breath Sounds RLL clear :05 Breath Sounds VALERIE clear :05 Breath Sounds LLL clear :05 Airway natural :05 Chest Tube no :05 Oxygen no :40 Temp >100.4 no :05 Temp <96.8 no :05 Chills with rigors no :05 HR > 90bpm no :05 Respirations > 20 no :05 Systolic <90 no :05 IV Site Location R AC :40 IV Type peripheral :40 IV Site Information discontinued :40 IV Site Start Attmpt 1 times :05 IV Site Guilherme 20 91-58-103644:05 IV Site Appearance WNL [id number]:05 IV Site Color clear :05 IV Site Patent yes :05 Dressing Type occlusive :05 Nursing Note Pt IV was removed at [...]
--- OUTSIDE RECORDS SUMMARY | 2017-07-18 09:12 | XMS REPORT | Clinical Summary ---
Author Author Admin, QIE Organization [employer] Address Unknown Phone Unavailable Allergies, Adverse Reactions, [...] each nostril daily for allergies FLUTICASONE PROPIONATE 74531720699 Active Mariaadomenico Whitman APRN Active CETIRIZINE HCL 10 MG ORAL TABS 1 po qd PRN Allergies CETIRIZINE HCL 61594645043 Active Mariaa Sidkum BIOINFORMATICS ASSOCIATE Active BACTRIM DS 800-160 MG TABS 1 pill by mouth twice daily, for UTI SULFAMETHOXAZOLE-TRIMETHOPRIM 94154764792 No Longer Active Ana Cristina Vallejo MD PhD Active HYDROCHLOROTHIAZIDE 12.5 MG CAPS 1 pill by mouth daily, for blood pressure HYDROCHLOROTHIAZIDE 15903983419 Active Mariaa Antonette BIOINFORMATICS ASSOCIATE Active CARVEDILOL 25 MG TABS 1 pill by mouth twice daily for blood pressure CARVEDILOL 36476882869 Active Mariaa Laudee SWARTZN Active SYNTHROID 0.088 MG TAB 1 tablet by mouth daily for thyroid LEVOTHYROXINE SODIUM 73465399028 Active Mariaa Antonette SWARTZN Active AMOXICILLIN 500 MG CAP 1 tab by mouth 3 times daily AMOXICILLIN 82592367959 No Longer Active Alden Kim MD Active [facility] VITAMIN D3 1000 UNIT CAPS TAKE 2 CAP DAILY CHOLECALCIFEROL 11839204127 Active Ana Cristina Vallejo MD PhD Active CALCIUM 500 MG TABS TAKE 3 TABS DAILY CALCIUM 47502656902 Active Aneta Tavarezum NUMERICAL CONTROL PROGRAMMER Active MULTIVITAMINS TABS TAKE 1 TAB DAILY MULTIPLE VITAMIN 88215686040 Active Aneta Tavarezum NUMERICAL CONTROL PROGRAMMER Active BENADRYL ALLERGY 25 MG TABS NEEDED DIPHENHYDRAMINE HCL 12635185560 Active Aneta Tavarezum NUMERICAL CONTROL PROGRAMMER Active TYLENOL 325 MG TABS NEEDED ACETAMINOPHEN 84889357810 Active Aneta Tavarezum NUMERICAL CONTROL PROGRAMMER Active ADVIL 200 MG TABS TAKE NEEDED IBUPROFEN 85210027711 Active Aneta Tavarezum NUMERICAL CONTROL PROGRAMMER Active ADULT ASPIRIN EC LOW STRENGTH 81 MG TBEC TAKE 1 TAB DAILY ASPIRIN 98600071802 Active Aneta Tavarezum NUMERICAL CONTROL PROGRAMMER Active VITAMIN E NATURAL 400 UNIT CAPS TAKE 1 CAP DAILY VITAMIN E 90174386656 Active Aneta Tavarezum NUMERICAL CONTROL PROGRAMMER Active GLUCOSAMINE-CHONDROITIN 500-400 MG TABS TAKE 1 TAB DAILY GLUCOSAMINE-CHONDROITIN 69583615080 Active Aneta Tavarezum NUMERICAL CONTROL PROGRAMMER Active NORVASC 10 MG TABS TAKE 1 TAB DAILY AMLODIPINE BESYLATE 33598775972 Active Mariaa Whitman BIOINFORMATICS ASSOCIATE Active BENAZEPRIL HCL 40 MG TABS 1 PO BID BENAZEPRIL HCL 73725974136 Active Mariaa Whitman BIOINFORMATICS ASSOCIATE Active LOVASTATIN 20 MG TABS 1 PO Q HS FOR CHOLESTEROL LOVASTATIN 88637190145 Active Mariaa Whitman BIOINFORMATICS ASSOCIATE Active RANITIDINE HCL 150 MG CAPS 1 PO Q 12 HRS RANITIDINE HCL 15760936213 Active Mariaa Whitman BIOINFORMATICS ASSOCIATE Active ALENDRONATE SODIUM 70 MG TABS TAKE 1 TAB ONCE A WEEK ALENDRONATE SODIUM 78852015815 Active Mariaa Wihtman BIOINFORMATICS ASSOCIATE Active AMOXICILLIN 500 MG CAP 1 tab by mouth 3 times daily AMOXICILLIN 500 MG CAP 965146 AMOXICILLIN Inactive BACTRIM DS 800-160 MG TABS 1 pill by mouth twice daily, for UTI BACTRIM DS 800-160 MG TABS 023104 SULFAMETHOXAZOLE-TRIMETHOPRIM Inactive Immunizations Vaccine Administration Date Value [...] ... - Chemistry sodium, serum 132 mmol/L 084-805 4072/04/20 carbon dioxide, venous blood 31.3 mmol/L 21.0-32.0 [...] 1.41 ng/dL 0.76-1.46 cholesterol, serum 166 mg/dL 304-304 4187/04/20 triglyceride, serum, fasting 68 mg/dL 30-200 HDL [...] 5.0-8.5 Encounters Code Encounter Date Provider Facility CPT-41784 Level 3 Est. Patient 20:45:54 SALES REPRESENTATIVE PUBLICATIONS Mariaa Whitman APRN [facility]-62528 Level 3 Est. Patient 12:16:16 CDT Ana Cristina Vallejo MD [facility] named [facility]-75177 Level 4 Est. Patient 12:49:21 CDT Ana Cristina Vallejo MD Former[facility] named [facility]-59396 Level 4 Est. Patient 23:02:25 CDT Ana Cristina Vallejo MD Former[facility] named [facility]-75178 Level 4 Est. Patient 19:26:33 SALES REPRESENTATIVE PUBLICATIONS Ana Cristina Vallejo MD [facility]93701 Level 4 Est. Patient 11:28:14 CDT Ana Cristina Vallejo MD [facility] named [facility]-99464 Level 4 Est. Patient 15:35:46 SALES REPRESENTATIVE PUBLICATIONS Ana Cristina Vallejo MD PhD [facility] CPT-48044 Level 3 Est. Patient 21:06:39 SALES REPRESENTATIVE PUBLICATIONS Alden Kim MD [facility] CPT-10842 Level 4 Est. Patient 15:30:54 SALES REPRESENTATIVE PUBLICATIONS Ana Cristina Vallejo MD PhD [facility] Procedures Code Procedure Name Date Entry Date Standard Description CPT-17522 Bone Density 09:14:12 CDT CPT-000 Give Appropriate Flu Vaccine 14:51:52 CDT CPT-44112 Fluzone High Dose (>=65 yrs.) 15:19:23 CDT CPT-46753 Immunization Single Admin 15:19:23 CDT CPT-31945 Prevnar 13 15:40:03 CDT CPT-32444 Administration single or combination vaccine inc oral 15 :40:03 CDT CPT-39064 Prevnar 13 13:55:07 CDT CPT-G0008 Administration of Influenza Virus Vaccine 10:49:51 CDT CPT-84156 Fluzone High-Dose Intramuscular Suspension 10:49:51 CDT CPT-49326 Knee 3V 13:31:37 CDT CPT-10848 Bone Density 09:07:05 SALES REPRESENTATIVE PUBLICATIONS CPT-16751 Nail Avulsion 09:46:05 CDT CPT-50041 Administration single or combination vaccine inc oral 16 :11:54 CDT CPT-64342 Influenza High Dose age 65+ 16:11:54 CDT CPT-10546 Administration single or combination vaccine inc oral 10 :53:15 CDT CPT-12836 Influenza High Dose age 65+ 10:53:15 CDT CPT-84495 Bone Density 14:50:58 SALES REPRESENTATIVE PUBLICATIONS CPT-70846 Administration single or combination vaccine inc oral 15 :41:20 SALES REPRESENTATIVE PUBLICATIONS CPT-61568 Zoster Vaccine (Zostavax) 15:41:20 SALES REPRESENTATIVE PUBLICATIONS CPT-41205 Spec Collection and Handling Fee 11:18:25 SALES REPRESENTATIVE PUBLICATIONS CPT-19399 Administration single or combination vaccine inc oral 11 :14:20 CDT CPT-70055 Influenza High Dose age 65+ 11:14:20 CDT
--- NOTE | 2017-07-18 09:13 | Progress Note-Pre Operative ---
Pre-Operative Progress Note H&P Reviewed The H&P was reviewed, patient examined and no changes noted. Date Seen by Provider: Jul 18, 2017 Time Seen by Provider: 09:13 Date H&P Reviewed: Jul 18, 2017 Time H&P Reviewed: 09:13 Pre-Operative Diagnosis: left knee primary osteoarthritis LISSETTE RIOS MD Jul 18, 2017 09:13
--- OUTSIDE RECORDS SUMMARY | 2017-07-18 09:13 | XMS REPORT | Clinical Summary ---
Author Author Admin, DANDRE Organization [facility] [employer] Address Unknown Phone Unavailable Allergies, Adverse Reactions, Alerts Allergy Name Reaction Description Start Date Severity Status Provider NKDA Critical Active Mariaa Whitman HORTICULTURAL SPECIALTY GROWER Conditions or Problems Problem Name Problem Code Onset Date Status Entry Date Provider Comment Standard Description Annotate ROUTINE GYNECOLOGICAL EXAMINATION V72.31 Resolved Ana Cristina Vallejo MD PhD Routine gynecological examination MENOPAUSE 627.2 Ruled out Ana Cristina Vallejo MD PhD Symptomatic menopausal or female climacteric states MENOPAUSE 627.2 Active Brianda Reis [facility] Symptomatic menopausal or female climacteric [...] 1 daily, for vitamin D deficiency CHOLECALCIFEROL 91485778586 Active HEDY Esquivel Active EQL ONE DAILY WOMENS ORAL TABLET 1 po daily MULTIPLE VITAMINS- CALCIUM 33089614201 Active HEDY Esquivel Active CIPRO 250 MG ORAL TABS 1 tab BID for 7 days CIPROFLOXACIN HCL 64545124809 Active Deepti Junior LPN Active MACROBID 100 MG ORAL CAPS 1 tab BID for 5 days NITROFURANTOIN MONOHYD MACRO 52985198126 No Longer Active Deepti Junior BOREMATIC MACHINE OPERATOR Active HYDROCHLOROTHIAZIDE 12.5 MG CAPS 1 pill by mouth daily HYDROCHLOROTHIAZIDE 86013189024 Active Jalil Hayes MD Active RANITIDINE HCL 150 MG CAPS once nightly RANITIDINE HCL 37281801621 Active Jalil Hayes MD Active BENAZEPRIL HCL 40 MG TABS 1 daily for blood pressure BENAZEPRIL HCL 61416316358 Active Jalil Hayes MD Active HYDROCHLOROTHIAZIDE 12.5 MG CAPS 1 pill by mouth daily, for blood pressure HYDROCHLOROTHIAZIDE 42043076374 No Longer Active Jalil Hayes MD Active AUGMENTIN 875-125 MG TAB 1 po BID x 7 days AMOXICILLIN-POT CLAVULANATE 63431366931 No Longer Active Jalil Hayes MD Active OMEPRAZOLE 40 MG CPDR 1 po q a.m. OMEPRAZOLE 45529337759 Active Peggy Pardo LPN Active MIRALAX ORAL PACK Takes daily prn POLYETHYLENE GLYCOL 3350 02558551518 No Longer Active Peggy Pardo LPN Active FLONASE ALLERGY RELIEF 50 MCG/ACT NASAL SUSP One spray each nostril daily for allergies FLUTICASONE PROPIONATE 62803747012 No Longer Active Peggy Pardo LPN Active BENADRYL ALLERGY 25 MG TABS NEEDED DIPHENHYDRAMINE HCL 72774928393 No Longer Active Peggy Pardo LPN Active ADVIL 200 MG TABS TAKE NEEDED IBUPROFEN 47526189081 No Longer Active Peggy Pardo LPN Active COLACE 100 MG CAP 1 po BID PRN Constipation DOCUSATE SODIUM 81628545552 No Longer Active Deepti Junior LPN Active ALPRAZOLAM 0.25 MG TAB 1/2-1 tablet by mouth twice a day as needed for stress ALPRAZOLAM 75878568013 No Longer Active Deepti Junior LPN Active ALENDRONATE SODIUM 70 MG TABS 1 pill by mouth weekly for osteoporosis ALENDRONATE SODIUM 26614983396 Active Mariaa Whitman HORTICULTURAL SPECIALTY GROWER Active E-1000 1000 UNIT ORAL CAPS Take one by mouth daily VITAMIN E 88100072675 Active HEDY Esquivel Active OSCAL 500/200 D-3 500-200 MG-UNIT ORAL TABS Take one by mouth 3 times daily, morning, afternoon and evening.] CALCIUM CARBONATE-VITAMIN D 19981211504 Active HEDY Esquivel Active ASPIRIN 81 MG CHEW TAB 1 tablet by mouth daily ASPIRIN 85156413257 Active HEDY Esquivel Active ADULT ASPIRIN EC LOW STRENGTH 81 MG TBEC TAKE 1 TAB DAILY ASPIRIN 54753543551 No Longer Active Mariaa Whitman APRN Active ALENDRONATE SODIUM 70 MG TABS TAKE 1 TAB ONCE A WEEK ALENDRONATE SODIUM 42417168745 No Longer Active Mariaa Whitman APRN Active CETIRIZINE HCL 10 MG ORAL TABS 1 po qd PRN Allergies CETIRIZINE HCL 25616319805 Active HEDY Esquivel Active BACTRIM DS 800-160 MG TABS 1 pill by mouth twice daily, for UTI SULFAMETHOXAZOLE-TRIMETHOPRIM 17837090614 No Longer Active Ana Cristina Vallejo MD PhD Active CARVEDILOL 25 MG TABS 1 pill by mouth twice daily for blood pressure CARVEDILOL 74837909851 Active HEDY Esquivel Active SYNTHROID 0.088 MG TAB 1 tablet by mouth daily for thyroid LEVOTHYROXINE SODIUM 32198890443 Active HEDY Esquivel Active AMOXICILLIN 500 MG CAP 1 tab by mouth 3 times daily AMOXICILLIN 93072270023 No Longer Active Alden Kim MD Active CALCIUM 500 MG TABS TAKE 3 TABS DAILY CALCIUM 69530057816 No Longer Active Mariaa Whitman APRN Active MULTIVITAMINS TABS TAKE 1 TAB DAILY MULTIPLE VITAMIN No Longer Active Aneta Bailey LPN Active TYLENOL 325 MG TABS NEEDED ACETAMINOPHEN 71603667683 Active Aneta Tavarezum BOREMATIC MACHINE OPERATOR Active GLUCOSAMINE-CHONDROITIN 500-400 MG TABS TAKE 1 TAB DAILY GLUCOSAMINE-CHONDROITIN 19052902552 Active Mariaa Yokum [employer]IC[employer] SPECIALTY GROWER Active NORVASC 10 MG TABS TAKE 1 TAB DAILY AMLODIPINE BESYLATE 03307980467 Active HEDY Esquivel Active LOVASTATIN 20 MG TABS 1 PO Q HS FOR CHOLESTEROL LOVASTATIN 57370187695 Active Risa HEDY Calderon Active ALENDRONATE SODIUM 70 MG TABS TAKE 1 TAB ONCE A WEEK ALENDRONATE SODIUM 70 MG TABS 659184 ALENDRONATE SODIUM Inactive ADULT ASPIRIN EC LOW STRENGTH 81 MG TBEC TAKE 1 TAB DAILY ADULT ASPIRIN EC LOW STRENGTH 81 MG TBEC 786017 ASPIRIN Inactive ALPRAZOLAM 0.25 MG TAB 1/2-1 tablet by mouth twice a day as needed for stress ALPRAZOLAM 0.25 MG TAB 994469 ALPRAZOLAM Inactive COLACE 100 MG CAP 1 po BID PRN Constipation COLACE 100 MG CAP 0795532 DOCUSATE SODIUM Inactive ADVIL 200 MG TABS TAKE NEEDED ADVIL 200 MG TABS 316029 IBUPROFEN Inactive BENADRYL ALLERGY 25 MG TABS NEEDED BENADRYL ALLERGY 25 MG TABS 8152411 DIPHENHYDRAMINE HCL Inactive FLONASE ALLERGY RELIEF 50 MCG/ACT NASAL SUSP One spray each nostril daily for allergies FLONASE ALLERGY RELIEF 50 MCG/ACT NASAL SUSP 7078498 FLUTICASONE PROPIONATE Inactive MIRALAX ORAL PACK Takes daily prn MIRALAX ORAL PACK 830045 POLYETHYLENE GLYCOL 3350 Inactive AUGMENTIN 875-125 MG TAB 1 po BID x 7 days AUGMENTIN 875-125 MG TAB 842587 AMOXICILLIN-POT CLAVULANATE Inactive HYDROCHLOROTHIAZIDE 12.5 MG CAPS 1 pill by mouth daily, for blood pressure HYDROCHLOROTHIAZIDE 12.5 MG CAPS 096510 HYDROCHLOROTHIAZIDE Inactive AMOXICILLIN 500 MG CAP 1 tab by mouth 3 times daily AMOXICILLIN 500 MG CAP 388877 AMOXICILLIN Inactive BACTRIM DS 800-160 MG TABS 1 pill by mouth twice daily, for UTI BACTRIM DS 800-160 MG TABS 599213 SULFAMETHOXAZOLE-TRIMETHOPRIM Inactive MACROBID 100 MG ORAL CAPS 1 tab BID for 5 days MACROBID 100 MG ORAL CAPS 2302758 NITROFURANTOIN MONOHYD MACRO Inactive Advance Directives Directive [...] Panel - Chemistry sodium, serum 130 mmol/L 879-102 4983/10/19 potassium, serum 3.5 mmol/L 3.5-5.2 chloride, serum 92 mmol/L 98-107 carbon dioxide, venous blood 33.6 mmol/L 21.0-32.0 blood glucose 118 mg/dL 65-110 calcium, serum 8.8 mg/dL 8.5-10.1 urea nitrogen, blood 11 mg/dL 7-18 creatinine, serum 1.12 mg/dL 0.55-1.30 sodium, serum 132 mmol/L 336-379 1981/08/09 potassium, serum 4.2 mmol/L 3.5-5.2 chloride, serum 99 mmol/L 98-107 carbon dioxide, venous blood 24.7 mmol/L 21.0-32.0 blood glucose 119 mg/dL 65-110 calcium, serum 8.5 mg/dL 8.5-10.1 urea nitrogen, blood 14 mg/dL 7-18 creatinine, serum 1.16 mg/dL 0.60-1.30 Lab Report: CBC-QUEST, COMPREHENSIVE METABOLIC PANEL, LIPID PANEL, Micro ... - Chemistry cholesterol, serum 162 mg/dL 602-850 3734/05/01 HDL cholesterol, serum 68 mg/dL > OR=46 [...] % 11.0-15.0 platelet count 297 THOUSAND/UL 10*3/mm3 127-507 5062/05/01 mean platelet volume 8.9 fL 7.5-12.5 Lab [...] 5.0-8.5 Encounters Code Encounter Date Provider Facility [facility]-[id number] Level 3 Est. Patient 13:55:49 CDT Jalil Hayes MD [facility]-99424 Level 3 Est. Patient 14:38:15 CDT Jalil Hayes MD [facility]95028 Level 4 Est. Patient 14:40:54 CDT Bee Rosas [facility]-33376 Level 4 Est. Patient 10:31:15 CDT Jalil Hayes MD [facility]83062 Level 4 Est. Patient 15:07:54 CDT Mariaa Whitman [facility]92756 Level 3 Est. Patient 20:45:54 COMMERCIAL PLUMBER Mariaa Whitman [facility]-27854 Level 3 Est. Patient 12:16:16 CDT Ana Cristina Vallejo MD [facility]154 Level 4 Est. Patient 12:49:21 CDT Ana Cristina Vallejo MD [facility]50639 Level 4 Est. Patient 23:02:25 CDT Ana Cristina Vallejo MD [facility]12776 Level 4 Est. Patient 19:26:33 COMMERCIAL PLUMBER Ana Cristina Vallejo MD [facility]23600 Level 4 Est. Patient 11:28:14 CDT Ana Cristina Vallejo MD [facility]59090 Level 4 Est. Patient 15:35:46 COMMERCIAL PLUMBER Ana Cristina Vallejo MD PhD [facility] CPT-54710 Level 3 Est. Patient 21:06:39 COMMERCIAL PLUMBER Alden Kim MD [facility] CPT-88055 Level 4 Est. Patient 15:30:54 COMMERCIAL PLUMBER Ana Cristina Vallejo MD PhD [facility] Procedures Code Procedure Name Date Entry Date Standard Description CPT-TCMM Transitional Care Mgmt-Moderate 14:41:55 CDT CPT-78812 EKG Trac and Interp - XRAY USE ONLY 10:35:11 CDT 09/11 CPT-07265 Chest 2V Frontal and Lat - XRAY USE ONLY 10:35:11 CDT CPT-G0438 Initial Annual Wellness Exam 14:54:07 CDT CPT-G0009 Administration of Pneumococcal Vaccine 14:44:24 CDT CPT-57301 Pneumovax 23 Injection Injectable 25 MCG/0.5ML 14:44:24 CDT CPT-10189 First Vx - Ix admin for Medicare patients 14:44:24 CDT CPT-27841 Fluzone High-Dose Intramuscular Suspension 14:44:20 CDT CPT-04343 BMP - LAB USE ONLY 12:38:06 CDT CPT-51772 Urine Culture - LAB USE ONLY 16:56:33 CDT CPT-TCMM Transitional Care Mgmt-Moderate 18:08:16 CDT CPT-72981 Bone Density 09:14:12 CDT CPT-000 Give Appropriate Flu Vaccine 14:51:52 CDT CPT-78884 Fluzone High Dose (>=65 yrs.) 15:19:23 CDT CPT-47542 Immunization Single Admin 15:19:23 CDT CPT-95759 Prevnar 13 15:40:03 CDT CPT-07435 Administration single or combination vaccine inc oral 15 :40:03 CDT CPT-19546 Prevnar 13 13:55:07 CDT CPT-G0008 Administration of Influenza Virus Vaccine 10:49:51 CDT CPT-51541 Fluzone High-Dose Intramuscular Suspension 10:49:51 CDT CPT-19494 Knee 3V 13:31:37 CDT CPT-56873 Bone Density 09:07:05 COMMERCIAL PLUMBER CPT-34847 Nail Avulsion 09:46:05 CDT CPT-72769 Administration single or combination vaccine inc oral 16 :11:54 CDT CPT-83705 Influenza High Dose age 65+ 16:11:54 CDT CPT-41364 Administration single or combination vaccine inc oral 10 :53:15 CDT CPT-47660 Influenza High Dose age 65+ 10:53:15 CDT CPT-79697 Bone Density 14:50:58 COMMERCIAL PLUMBER CPT-97903 Administration single or combination vaccine inc oral 15 :41:20 COMMERCIAL PLUMBER CPT-97826 Zoster Vaccine (Zostavax) 15:41:20 COMMERCIAL PLUMBER CPT-32313 Spec Collection and Handling Fee 11:18:25 COMMERCIAL PLUMBER CPT-19614 Administration single or combination vaccine inc oral 11 :14:20 CDT CPT-68353 Influenza High Dose age 65+ 11:14:20 CDT
--- OUTSIDE RECORDS SUMMARY | 2017-07-18 09:14 | XMS REPORT | Clinical Summary ---
Author Author Admin, DANDRE Organization [facility] [employer] Address Unknown Phone Unavailable Allergies, Adverse Reactions, Alerts Allergy Name Reaction Description Start Date Severity Status Provider NKDA Critical Active Mariaa Whitman FINISH REMOVER Conditions or Problems Problem Name Problem Code Onset Date Status Entry Date Provider Comment Standard Description Annotate ROUTINE GYNECOLOGICAL EXAMINATION V72.31 Resolved Ana Cristina Vallejo MD PhD Routine gynecological examination MENOPAUSE 627.2 Ruled out Ana Cristina Vallejo MD PhD Symptomatic menopausal or female climacteric states MENOPAUSE 627.2 Active Brianda Reis [facility] Symptomatic menopausal or female [...] a day as needed for stress ALPRAZOLAM 96415048459 Active Mariaa Whitman APRN Active COLACE 100 MG CAP 1 po BID PRN Constipation DOCUSATE SODIUM 64318311555 Active Mariaa Antonette LUGO Active MIRALAX ORAL PACK Takes daily prn POLYETHYLENE GLYCOL 3350 81514561762 Active Mariaa Whitman APRN Active ALENDRONATE SODIUM 70 MG TABS 1 pill by mouth weekly for osteoporosis ALENDRONATE SODIUM 77932319033 Active Brianda KNOTT Active E-1000 1000 UNIT ORAL CAPS Take one by mouth daily VITAMIN E 50874812079 Active Brianda KNOTT Active OSCAL 500/200 D-3 500-200 MG-UNIT ORAL TABS Take one by mouth 3 times daily, morning, afternoon and evening.] CALCIUM CARBONATE-VITAMIN D 18591235114 Active Brinada RICK Active ASPIRIN 81 MG CHEW TAB 1 tablet by mouth daily ASPIRIN 19886662489 Active Brianda RICK Active ADULT ASPIRIN EC LOW STRENGTH 81 MG TBEC TAKE 1 TAB DAILY ASPIRIN 77757619477 No Longer Active Mariaa Whitman APRN Active ALENDRONATE SODIUM 70 MG TABS TAKE 1 TAB ONCE A WEEK ALENDRONATE SODIUM 38105923955 No Longer Active Mariaa Whitman APRN Active FLONASE ALLERGY RELIEF 50 MCG/ACT NASAL SUSP One spray each nostril daily for allergies FLUTICASONE PROPIONATE 67616080327 Active Mariaa Whitman APRN Active CETIRIZINE HCL 10 MG ORAL TABS 1 po qd PRN Allergies CETIRIZINE HCL 23270381220 Active Mariaa Whitman APRN Active BACTRIM DS 800-160 MG TABS 1 pill by mouth twice daily, for UTI SULFAMETHOXAZOLE-TRIMETHOPRIM 74593230613 No Longer Active Ana Cristina Vallejo MD PhD Active HYDROCHLOROTHIAZIDE 12.5 MG CAPS 1 pill by mouth daily, for blood pressure HYDROCHLOROTHIAZIDE 95771069158 Active Mariaa Whitman APRN Active CARVEDILOL 25 MG TABS 1 pill by mouth twice daily for blood pressure CARVEDILOL 01466050664 Active Mariaa Whitman APRN Active SYNTHROID 0.088 MG TAB 1 tablet by mouth daily for thyroid LEVOTHYROXINE SODIUM 45159872095 Active Mariaa Yokum FINISH REMOVER Active AMOXICILLIN 500 MG CAP 1 tab by mouth 3 times daily AMOXICILLIN 91371988339 No Longer Active Alden Kim MD Active [facility] VITAMIN D3 1000 UNIT CAPS TAKE 2 CAP DAILY CHOLECALCIFEROL Active Ana Cristina Vallejo MD PhD Active CALCIUM 500 MG TABS TAKE 3 TABS DAILY CALCIUM 24134387141 No Longer Active Mariaa Yoxuanum FINISH REMOVER Active MULTIVITAMINS TABS TAKE 1 TAB DAILY MULTIPLE VITAMIN Active Aneta D Leo MATTRESS SPECIALIST Active BENADRYL ALLERGY 25 MG TABS NEEDED DIPHENHYDRAMINE HCL 75368738698 Active Aneta D Leo MATTRESS SPECIALIST Active TYLENOL 325 MG TABS NEEDED ACETAMINOPHEN 50272865769 Active Aneta D Leo MATTRESS SPECIALIST Active ADVIL 200 MG TABS TAKE NEEDED IBUPROFEN 70001540281 Active Aneta D Leo MATTRESS SPECIALIST Active GLUCOSAMINE-CHONDROITIN 500-400 MG TABS TAKE 1 TAB DAILY GLUCOSAMINE-CHONDROITIN 46929206400 Active Mariaa Yokum FINISH REMOVER Active NORVASC 10 MG TABS TAKE 1 TAB DAILY AMLODIPINE BESYLATE 45197672567 Active Mariaa Yokum FINISH REMOVER Active BENAZEPRIL HCL 40 MG TABS 1 PO BID BENAZEPRIL HCL 25019441165 Active Mariaa Yoxuanum FINISH REMOVER Active LOVASTATIN 20 MG TABS 1 PO Q HS FOR CHOLESTEROL LOVASTATIN 77769691059 Active Mariaa Yokum FINISH REMOVER Active RANITIDINE HCL 150 MG CAPS 1 PO Q 12 HRS RANITIDINE HCL 23938008004 Active Amriaa Yokum FINISH REMOVER Active ALENDRONATE SODIUM 70 MG TABS TAKE 1 TAB ONCE A WEEK ALENDRONATE SODIUM 70 MG TABS 991801 ALENDRONATE SODIUM Inactive ADULT ASPIRIN EC LOW STRENGTH 81 MG TBEC TAKE 1 TAB DAILY ADULT ASPIRIN EC LOW STRENGTH 81 MG TBEC 648996 ASPIRIN Inactive AMOXICILLIN 500 MG CAP 1 tab by mouth 3 times daily AMOXICILLIN 500 MG CAP 401441 AMOXICILLIN Inactive BACTRIM DS 800-160 MG TABS 1 pill by mouth twice daily, for UTI BACTRIM DS 800-160 MG TABS 610913 SULFAMETHOXAZOLE-TRIMETHOPRIM Inactive Advance Directives Directive Description Start [...] Panel - Chemistry sodium, serum 130 mmol/L 080-993 9823/10/19 potassium, serum 3.5 mmol/L 3.5-5.2 chloride, serum [...] 1.41 ng/dL 0.76-1.46 cholesterol, serum 166 mg/dL 288-763 0357/04/20 triglyceride, serum, fasting 68 mg/dL 30-200 HDL cholesterol, serum 88 mg/dL 32-96 LDL cholesterol, serum 64 mg/dL 0-130 sodium, serum 132 mmol/L 025-389 2107/04/20 carbon dioxide, venous blood 31.3 mmol/L 21.0-32.0 [...] 5.0-8.5 Encounters Code Encounter Date Provider Facility CPT-10370 Level 4 Est. Patient 15:07:54 CDT Mariaa Whitman [facility] CPT-85233 Level 3 Est. Patient 20:45:54 STADIUM ATTENDANT Mariaa Whitman [facility] CPT-00011 Level 3 Est. Patient 12:16:16 CDT Ana Cristina Vallejo MD [facility]-[address]4566 Level 4 Est. Patient 12:49:21 CDT Ana Cristina Vallejo MD [facility]-79129 Level 4 Est. Patient 23:02:25 CDT Ana Cristina Vallejo MD [facility]-87324 Level 4 Est. Patient 19:26:33 STADIUM ATTENDANT Ana Cristina Vallejo MD [facility] [place]-01090 Level 4 Est. Patient 11:28:14 CDT Ana Cristina Vallejo MD [facility]-68965 Level 4 Est. Patient 15:35:46 STADIUM ATTENDANT Ana Cristina Vallejo MD [facility] CPT-06844 Level 3 Est. Patient 21:06:39 STADIUM ATTENDANT Alden Kim MD [facility]-63890 Level 4 Est. Patient 15:30:54 STADIUM ATTENDANT Ana Cristina Vallejo MD [facility] Procedures Code Procedure Name Date Entry Date Standard Description CPT-G0438 Initial Annual Wellness Exam 14:54:07 CDT CPT-G0009 Administration of Pneumococcal Vaccine 14:44:24 CDT CPT-80798 Pneumovax 23 Injection Injectable 25 MCG/0.5ML 14:44:24 CDT CPT-49824 First Vx - Ix admin for Medicare patients 14:44:24 CDT CPT-48190 Fluzone High-Dose Intramuscular Suspension 14:44:20 CDT CPT-86971 BMP - LAB USE ONLY 12:38:06 CDT CPT-24795 Urine Culture - LAB USE ONLY 16:56:33 CDT CPT-TCMM Transitional Care Mgmt-Moderate 18:08:16 CDT CPT-92535 Bone Density 09:14:12 CDT CPT-000 Give Appropriate Flu Vaccine 14:51:52 CDT CPT-76839 Fluzone High Dose (>=65 yrs.) 15:19:23 CDT CPT-81907 Immunization Single Admin 15:19:23 CDT CPT-99003 Prevnar 13 15:40:03 CDT CPT-78762 Administration single or combination vaccine inc oral 15 :40:03 CDT CPT-29129 Prevnar 13 13:55:07 CDT CPT-G0008 Administration of Influenza Virus Vaccine 10:49:51 CDT CPT-01045 Fluzone High-Dose Intramuscular Suspension 10:49:51 CDT CPT-94185 Knee 3V 13:31:37 CDT CPT-80436 Bone Density 09:07:05 STADIUM ATTENDANT CPT-69361 Nail Avulsion 09:46:05 CDT CPT-97618 Administration single or combination vaccine inc oral 16 :11:54 CDT CPT-10255 Influenza High Dose age 65+ 16:11:54 CDT CPT-60757 Administration single or combination vaccine inc oral 10 :53:15 CDT CPT-07145 Influenza High Dose age 65+ 10:53:15 CDT CPT-62603 Bone Density 14:50:58 STADIUM ATTENDANT CPT-63513 Administration single or combination vaccine inc oral 15 :41:20 STADIUM ATTENDANT CPT-06394 Zoster Vaccine (Zostavax) 15:41:20 STADIUM ATTENDANT CPT-41524 Spec Collection and Handling Fee 11:18:25 STADIUM ATTENDANT CPT-36097 Administration single or combination vaccine inc oral 11 :14:20 CDT CPT-71634 Influenza High Dose age 65+ 11:14:20 CDT
--- OUTSIDE RECORDS SUMMARY | 2017-07-18 09:14 | XMS REPORT | Clinical Summary ---
Author Author Admin, HUYENE Organization [facility] Address Unknown Phone Unavailable Allergies, Adverse Reactions, [...] by mouth weekly for osteoporosis ALENDRONATE SODIUM 91196266806 Active Brianda Reis [facility] Active E-1000 1000 UNIT ORAL CAPS Take one by mouth daily VITAMIN E 20334316539 Active Brianda KNOTT Active OSCAL 500/200 D-3 500-200 MG-UNIT ORAL TABS Take one by mouth 3 times daily, morning, afternoon and evening.] CALCIUM CARBONATE-VITAMIN D 08787122372 Active Brianda KNOTT Active ASPIRIN 81 MG CHEW TAB 1 tablet by mouth daily ASPIRIN 58247398252 Active Brianda RICK Active ADULT ASPIRIN EC LOW STRENGTH 81 MG TBEC TAKE 1 TAB DAILY ASPIRIN 65075196043 No Longer Active Mariaa Whitman APRN Active ALENDRONATE SODIUM 70 MG TABS TAKE 1 TAB ONCE A WEEK ALENDRONATE SODIUM 68326916572 No Longer Active Mariaa Whitman APRN Active FLONASE ALLERGY RELIEF 50 MCG/ACT NASAL SUSP One spray each nostril daily for allergies FLUTICASONE PROPIONATE 34016660040 Active Mariaa Whitman APRN Active CETIRIZINE HCL 10 MG ORAL TABS 1 po qd PRN Allergies CETIRIZINE HCL 50239599402 Active Mariaa Whitman APRN Active BACTRIM DS 800-160 MG TABS 1 pill by mouth twice daily, for UTI SULFAMETHOXAZOLE-TRIMETHOPRIM 95213903847 No Longer Active Ana Cristina Vallejo MD PhD Active HYDROCHLOROTHIAZIDE 12.5 MG CAPS 1 pill by mouth daily, for blood pressure HYDROCHLOROTHIAZIDE 06781594060 Active Mariaa Whitman APRN Active CARVEDILOL 25 MG TABS 1 pill by mouth twice daily for blood pressure CARVEDILOL 45089549488 Active Mariaa Whitman APRN Active SYNTHROID 0.088 MG TAB 1 tablet by mouth daily for thyroid LEVOTHYROXINE SODIUM 18022051485 Active Mariaa Whitman APRN Active AMOXICILLIN 500 MG CAP 1 tab by mouth 3 times daily AMOXICILLIN 70901891129 No Longer Active Alden Kim MD Active [facility] VITAMIN D3 1000 UNIT CAPS TAKE 2 CAP DAILY CHOLECALCIFEROL Active Ana Cristina Vallejo MD PhD Active CALCIUM 500 MG TABS TAKE 3 TABS DAILY CALCIUM 81704369300 No Longer Active Mariaa Whitman QUALITY IMPROVEMENT ENGINEER Active MULTIVITAMINS TABS TAKE 1 TAB DAILY MULTIPLE VITAMIN Active Aneta Tavarezum PATIENT ACCOUNT REPRESENTATIVE Active BENADRYL ALLERGY 25 MG TABS NEEDED DIPHENHYDRAMINE HCL 87538809018 Active Aneta Tavarezum PATIENT ACCOUNT REPRESENTATIVE Active TYLENOL 325 MG TABS NEEDED ACETAMINOPHEN 77440353127 Active Aneta Tavarezum PATIENT ACCOUNT REPRESENTATIVE Active ADVIL 200 MG TABS TAKE NEEDED IBUPROFEN 56279201822 Active Aneta Tavarezum PATIENT ACCOUNT REPRESENTATIVE Active GLUCOSAMINE-CHONDROITIN 500-400 MG TABS TAKE 1 TAB DAILY GLUCOSAMINE-CHONDROITIN 14394500280 Active Mariaa Whitman QUALITY IMPROVEMENT ENGINEER Active NORVASC 10 MG TABS TAKE 1 TAB DAILY AMLODIPINE BESYLATE 92974790231 Active Mariaa Atkinsonum QUALITY IMPROVEMENT ENGINEER Active BENAZEPRIL HCL 40 MG TABS 1 PO BID BENAZEPRIL HCL 86332352969 Active Mariaa Whitman QUALITY IMPROVEMENT ENGINEER Active LOVASTATIN 20 MG TABS 1 PO Q HS FOR CHOLESTEROL LOVASTATIN 75873327136 Active Mariaa Whitman QUALITY IMPROVEMENT ENGINEER Active RANITIDINE HCL 150 MG CAPS 1 PO Q 12 HRS RANITIDINE HCL 58327687253 Active Mariaa Whitman QUALITY IMPROVEMENT ENGINEER Active ALENDRONATE SODIUM 70 MG TABS TAKE 1 TAB ONCE A WEEK ALENDRONATE SODIUM 70 MG TABS 950071 ALENDRONATE SODIUM Inactive ADULT ASPIRIN EC LOW STRENGTH 81 MG TBEC TAKE 1 TAB DAILY ADULT ASPIRIN EC LOW STRENGTH 81 MG TBEC 123042 ASPIRIN Inactive AMOXICILLIN 500 MG CAP 1 tab by mouth 3 times daily AMOXICILLIN 500 MG CAP 492913 AMOXICILLIN Inactive BACTRIM DS 800-160 MG TABS 1 pill by mouth twice daily, for UTI BACTRIM DS 800-160 MG TABS 800388 SULFAMETHOXAZOLE-TRIMETHOPRIM Inactive Advance Directives Directive Description Start [...] 1.41 ng/dL 0.76-1.46 cholesterol, serum 166 mg/dL 338-379 6826/04/20 triglyceride, serum, fasting 68 mg/dL 30-200 HDL cholesterol, serum 88 mg/dL 32-96 LDL cholesterol, serum 64 mg/dL 0-130 sodium, serum 132 mmol/L 357-651 2805/04/20 carbon dioxide, venous blood 31.3 mmol/L 21.0-32.0 [...] Negative Encounters Code Encounter Date Provider Facility CPT-36500 Level 4 Est. Patient 15:07:54 CDT Mariaa Whitman [facility] CPT-37289 Level 3 Est. Patient 20:45:54 PROCESS CONTROL OPERATOR Mariaa Whitman [facility] CPT-71046 Level 3 Est. Patient 12:16:16 CDT Ana Cristina Vallejo MD [facility] CPT-07761 Level 4 Est. Patient 12:49:21 CDT Ana Cristina Vallejo MD [facility] CPT-09723 Level 4 Est. Patient 23:02:25 CDT Ana Cristina Vallejo MD [facility] CPT-19913 Level 4 Est. Patient 19:26:33 PROCESS CONTROL OPERATOR Ana Cristina Vallejo MD [facility] CPT-13015 Level 4 Est. Patient 11:28:14 CDT Ana Cristina Vallejo MD [facility] CPT-94071 Level 4 Est. Patient 15:35:46 PROCESS CONTROL OPERATOR Ana Cristina Vallejo MD [facility] CPT-73474 Level 3 Est. Patient 21:06:39 PROCESS CONTROL OPERATOR Alden Kim MD [facility] CPT-00827 Level 4 Est. Patient 15:30:54 PROCESS CONTROL OPERATOR Ana Cristina Vallejo MD [facility] Procedures Code Procedure Name Date Entry Date Standard Description CPT-72591 Urine Culture - LAB USE ONLY 16:56:33 CDT CPT-TCMM Transitional Care Mgmt-Moderate 18:08:16 CDT CPT-42627 Bone Density 09:14:12 CDT CPT-000 Give Appropriate Flu Vaccine 14:51:52 CDT CPT-64802 Fluzone High Dose (>=65 yrs.) 15:19:23 CDT CPT-32850 Immunization Single Admin 15:19:23 CDT CPT-44971 Prevnar 13 15:40:03 CDT CPT-03496 Administration single or combination vaccine inc oral 15 :40:03 CDT CPT-42354 Prevnar 13 13:55:07 CDT CPT-G0008 Administration of Influenza Virus Vaccine 10:49:51 CDT CPT-15533 Fluzone High-Dose Intramuscular Suspension 10:49:51 CDT CPT-95292 Knee 3V 13:31:37 CDT CPT-93546 Bone Density 09:07:05 PROCESS CONTROL OPERATOR CPT-67251 Nail Avulsion 09:46:05 CDT CPT-11053 Administration single or combination vaccine inc oral 16 :11:54 CDT CPT-04243 Influenza High Dose age 65+ 16:11:54 CDT CPT-00712 Administration single or combination vaccine inc oral 10 :53:15 CDT CPT-25611 Influenza High Dose age 65+ 10:53:15 CDT CPT-06215 Bone Density 14:50:58 PROCESS CONTROL OPERATOR CPT-59460 Administration single or combination vaccine inc oral 15 :41:20 PROCESS CONTROL OPERATOR CPT-28395 Zoster Vaccine (Zostavax) 15:41:20 PROCESS CONTROL OPERATOR CPT-62620 Spec Collection and Handling Fee 11:18:25 PROCESS CONTROL OPERATOR CPT-14732 Administration single or combination vaccine inc oral 11 :14:20 CDT CPT-65090 Influenza High Dose age 65+ 11:14:20 CDT
--- NOTE | 2017-07-18 09:15 | Progress Note-Post Operative ---
Post-Operative Progess Note Surgeon (s)/Creel Cleaner (s) Surgeon LISSETTE RIOS MD Creel Cleaner: Alex Simons Pre-Operative Diagnosis left knee primary osteoarthritis Post-Operative Diagnosis left knee primary osteoarthritis Procedure & Operative Findings Date of Procedure 07/18/17 Procedure Performed/Findings left total knee arthroplasty Anesthesia Type GETA Estimated Blood Loss Estimated blood loss (mL): minimal Specimens/Packing Specimens Removed none Packing: none LISSETTE RIOS MD Jul 18, 2017 09:15
--- OUTSIDE RECORDS SUMMARY | 2017-07-18 09:15 | XMS REPORT | Clinical Summary ---
Author Author Admin, DANDRE Organization [facility] Address Unknown Phone Unavailable Allergies, Adverse Reactions, Alerts Allergy Name Reaction Description Start Date Severity Status Provider NKDA Critical Active Mariaa Whitman LASER SET UP OPERATOR Conditions or Problems Problem Name Problem [...] MD Dysuria Forgetfulness 780.99 Active Radha Jones LASER SET UP OPERATOR Other general symptoms Unsteady gait 781.2 [...] daily for blood pressure and swelling FUROSEMIDE 68238874841 Active Jalil Hayes MD Active HYDROCHLOROTHIAZIDE 12.5 MG ORAL CAPSULE 1 pill by mouth daily HYDROCHLOROTHIAZIDE 40668370562 No Longer Active Jalil Hayes MD Active PREDNISONE 10 MG ORAL TABLET 2 daily for 5 days then 1 daily for 5 days 05/25 PREDNISONE 74548968584 No Longer Active Jalil Hayes MD Active VITAMIN D3 2000 UNIT ORAL TABLET 1 daily, for vitamin D deficiency CHOLECALCIFEROL 08120087976 No Longer Active Radha Jones APRN Active CIPRO 250 MG ORAL TABLET 1 tab BID for 7 days CIPROFLOXACIN HCL 29150775426 No Longer Active Radha Jones APRN Active VITAMIN D3 2000 UNIT ORAL CAPSULE 1 capsule po daily CHOLECALCIFEROL 30681968797 Active Aneta Bailey LPN Active EQL ONE DAILY WOMENS ORAL TABLET 1 po daily MULTIPLE VITAMINS- CALCIUM 04065256899 Active Aneta Tavarezum RECORD PRESS SUPERVISOR Active MACROBID 100 MG ORAL CAPSULE 1 tab BID for 5 days NITROFURANTOIN MONOHYD MACRO 95379848223 No Longer Active Deepti Madl RECORD PRESS SUPERVISOR Active RANITIDINE HCL 150 MG ORAL CAPSULE once nightly RANITIDINE HCL 87140805081 Active Aneta Tavarezum RECORD PRESS SUPERVISOR Active BENAZEPRIL HCL 40 MG ORAL TABLET 1 daily for blood pressure BENAZEPRIL HCL 60998646099 Active Jalil Hayes MD Active HYDROCHLOROTHIAZIDE 12.5 MG ORAL CAPSULE 1 pill by mouth daily, for blood pressure HYDROCHLOROTHIAZIDE 92484329639 No Longer Active Jalil Hayes MD Active AUGMENTIN 875-125 MG ORAL TABLET 1 po BID x 7 days AMOXICILLIN-POT CLAVULANATE 95042837585 No Longer Active Jalil Hayes MD Active OMEPRAZOLE 40 MG ORAL CAPSULE DELAYED RELEASE 1 po q a.m. OMEPRAZOLE 57908785971 Active HEDY Esquivel Active MIRALAX ORAL PACKET Takes daily prn POLYETHYLENE GLYCOL 3350 91442470507 No Longer Active Peggy Pardo LPN Active FLONASE ALLERGY RELIEF 50 MCG/ACT NASAL SUSPENSION One spray each nostril daily for allergies FLUTICASONE PROPIONATE 12096827853 No Longer Active Peggy Pardo LPN Active BENADRYL ALLERGY 25 MG ORAL TABLET NEEDED DIPHENHYDRAMINE HCL 57255868464 No Longer Active Peggy Pardo LPN Active ADVIL 200 MG ORAL TABLET TAKE NEEDED IBUPROFEN 95093262592 No Longer Active Peggy Pardo LPN Active COLACE 100 MG ORAL CAPSULE 1 po BID PRN Constipation DOCUSATE SODIUM 85338069727 No Longer Active Deepti Junior LPN Active ALPRAZOLAM 0.25 MG ORAL TABLET 1/2-1 tablet by mouth twice a day as needed for stress ALPRAZOLAM 28844014227 No Longer Active Deepti Junior LPN Active ALENDRONATE SODIUM 70 MG ORAL TABLET 1 pill by mouth weekly for osteoporosis ALENDRONATE SODIUM 20847847003 Active Aneta Bailey LPN Active E-1000 1000 UNIT ORAL CAPSULE Take one by mouth daily VITAMIN E 01994489988 Active Aneta Bailey LPN Active OSCAL 500/200 D-3 500-200 MG-UNIT ORAL TABLET Take one by mouth 3 times daily , morning, afternoon and evening.] CALCIUM CARBONATE-VITAMIN D 68415149112 Active Aneta Bailey LPN Active ASPIRIN 81 MG ORAL TABLET CHEWABLE 1 tablet by mouth daily ASPIRIN 62424399589 Active Aneta Bailey LPN Active ADULT ASPIRIN EC LOW STRENGTH 81 MG ORAL TABLET DELAYED RELEASE TAKE 1 TAB DAILY ASPIRIN 27850027873 No Longer Active Mariaa Whitman APRN Active ALENDRONATE SODIUM 70 MG ORAL TABLET TAKE 1 TAB ONCE A WEEK 01/20 ALENDRONATE SODIUM 25328272111 No Longer Active Mariaa Whitman APRN Active CETIRIZINE HCL 10 MG ORAL TABLET 1 po qd PRN Allergies CETIRIZINE HCL 99776396743 Active HEDY Esquivel Active BACTRIM DS 800-160 MG ORAL TABLET 1 pill by mouth twice daily, for UTI 01/29 SULFAMETHOXAZOLE-TRIMETHOPRIM 93380023834 No Longer Active Ana Cristina Vallejo MD PhD Active CARVEDILOL 25 MG ORAL TABLET 1 pill by mouth twice daily for blood pressure CARVEDILOL 47727047836 Active Aneta Tavarezum YULIET Active SYNTHROID 88 MCG ORAL TABLET 1 tablet by mouth daily for thyroid LEVOTHYROXINE SODIUM 21905001883 Active HEDY Esquivel Active AMOXICILLIN 500 MG ORAL CAPSULE 1 tab by mouth 3 times daily 2011 AMOXICILLIN 46047892414 No Longer Active Alden Kim MD Active CALCIUM 500 MG ORAL TABLET TAKE 3 TABS DAILY CALCIUM 27332968495 No Longer Active Mariaa Whitman APRN Active MULTIVITAMINS TABS TAKE 1 TAB DAILY MULTIPLE VITAMIN No Longer Active Aneta Tavarezum RECORD PRESS SUPERVISOR Active TYLENOL 325 MG ORAL TABLET NEEDED ACETAMINOPHEN 57303212696 Active Aneta Tavarezum RECORD PRESS SUPERVISOR Active GLUCOSAMINE-CHONDROITIN 500-400 MG ORAL TABLET TAKE 1 TAB DAILY GLUCOSAMINE-CHONDROITIN 71975532798 Active Aneta Bailey LPN Active NORVASC 10 MG ORAL TABLET TAKE 1 TAB DAILY AMLODIPINE BESYLATE 64955643379 Active Aneta Tavarezum RECORD PRESS SUPERVISOR Active LOVASTATIN 20 MG ORAL TABLET 1 PO Q HS FOR CHOLESTEROL LOVASTATIN 84098019609 Active HEDY Esquivel Active ALENDRONATE SODIUM 70 MG ORAL TABLET TAKE 1 TAB ONCE A WEEK 01/20 ALENDRONATE SODIUM 70 MG ORAL TABLET 126604 ALENDRONATE SODIUM Inactive ADULT ASPIRIN EC LOW STRENGTH 81 MG ORAL TABLET DELAYED RELEASE TAKE 1 TAB DAILY ADULT ASPIRIN EC LOW STRENGTH 81 MG ORAL TABLET DELAYED RELEASE 868885 ASPIRIN Inactive ALPRAZOLAM 0.25 MG ORAL TABLET 1/2-1 tablet by mouth twice a day as needed for stress ALPRAZOLAM 0.25 MG ORAL TABLET 786151 ALPRAZOLAM Inactive COLACE 100 MG ORAL CAPSULE 1 po BID PRN Constipation COLACE 100 MG ORAL CAPSULE 9822927 DOCUSATE SODIUM Inactive ADVIL 200 MG ORAL TABLET TAKE NEEDED ADVIL 200 MG ORAL TABLET 461587 IBUPROFEN Inactive BENADRYL ALLERGY 25 MG ORAL TABLET NEEDED BENADRYL ALLERGY 25 MG ORAL TABLET 4374183 DIPHENHYDRAMINE HCL Inactive FLONASE ALLERGY RELIEF 50 MCG/ACT NASAL SUSPENSION One spray each nostril daily for allergies FLONASE ALLERGY RELIEF 50 MCG/ACT NASAL SUSPENSION 2328399 FLUTICASONE PROPIONATE Inactive MIRALAX ORAL PACKET Takes daily prn MIRALAX ORAL PACKET 948695 POLYETHYLENE GLYCOL 3350 Inactive AUGMENTIN 875-125 MG ORAL TABLET 1 po BID x 7 days AUGMENTIN 875-125 MG ORAL TABLET 164408 AMOXICILLIN-POT CLAVULANATE Inactive HYDROCHLOROTHIAZIDE 12.5 MG ORAL CAPSULE 1 pill by mouth daily, for blood pressure HYDROCHLOROTHIAZIDE 12.5 MG ORAL CAPSULE HYDROCHLOROTHIAZIDE Inactive CIPRO 250 MG ORAL TABLET 1 tab BID for 7 days CIPRO 250 MG ORAL TABLET 115471 CIPROFLOXACIN HCL Inactive VITAMIN D3 2000 UNIT ORAL TABLET 1 daily, for vitamin D deficiency VITAMIN D3 2000 UNIT ORAL TABLET CHOLECALCIFEROL Inactive PREDNISONE 10 MG ORAL TABLET 2 daily for 5 days then 1 daily for 5 days 05/25 PREDNISONE 10 MG ORAL TABLET 603323 PREDNISONE Inactive HYDROCHLOROTHIAZIDE 12.5 MG ORAL CAPSULE 1 pill by mouth daily HYDROCHLOROTHIAZIDE 12.5 MG ORAL CAPSULE HYDROCHLOROTHIAZIDE Inactive AMOXICILLIN 500 MG ORAL CAPSULE 1 tab by mouth 3 times daily 2011 AMOXICILLIN 500 MG ORAL CAPSULE 086126 AMOXICILLIN Inactive BACTRIM DS 800-160 MG ORAL TABLET 1 pill by mouth twice daily, for UTI 01/29 BACTRIM DS 800-160 MG ORAL TABLET 973776 SULFAMETHOXAZOLE- TRIMETHOPRIM Inactive MACROBID 100 MG ORAL CAPSULE 1 tab BID for 5 days MACROBID 100 MG ORAL CAPSULE 8400823 NITROFURANTOIN MONOHYD MACRO Inactive Advance Directives Directive [...] Panel - Chemistry sodium, serum 132 mmol/L 138-655 7464/08/09 potassium, serum 4.2 mmol/L 3.5-5.2 chloride, serum 99 mmol/L 98-107 carbon dioxide, venous blood 24.7 mmol/L 21.0-32.0 blood glucose 119 mg/dL 65-110 calcium, serum 8.5 mg/dL 8.5-10.1 urea nitrogen, blood 14 mg/dL 7-18 creatinine, serum 1.16 mg/dL 0.60-1.30 Lab Report: CBC-QUEST, COMPREHENSIVE METABOLIC PANEL, LIPID PANEL, Micro ... - Chemistry cholesterol, serum 162 mg/dL 187-020 7242/05/01 HDL cholesterol, serum 68 mg/dL > OR=46 [...] % 11.0-15.0 platelet count 297 THOUSAND/UL 10*3/mm3 734-088 4962/05/01 mean platelet volume 8.9 fL 7.5-12.5 Lab Report: CBC-QUEST, COMPREHENSIVE METABOLIC PANEL, LIPID PANEL, Micro ... - Urinalysis microalbumin/total urine volume <0.2 mg/dL mg/L microalbumin/creatinine ratio, urine NOTE mcg/mg creat mg/L <30 Lab Report: Erythrocyte Sed Rate, Thyroid Stimulating Hormone (L), Basic ... - Chemistry TSH 1.13 m[iU]/mL 0.36-3.74 sodium, serum 139 mmol/L 513-978 8270/01/10 potassium, serum 3.8 mmol/L 3.5-5.2 chloride, serum [...] 5.0-8.5 Encounters Code Encounter Date Provider Facility CPT-36287 Level 4 Est. Patient 11:50:58 WEB PORTAL DEVELOPER Jalil Hayes MD [facility] CPT-28163 Level 4 Est. Patient 12:35:27 WEB PORTAL DEVELOPER Jalil Hayes MD [facility] CPT-76638 Level 3 Est. Patient 13:55:49 CDT Jalil Hayes MD [facility] CPT-98273 Level 3 Est. Patient 14:38:15 CDT Jalil Hayes MD [facility]-04504 Level 4 Est. Patient 14:40:54 CDT Bee Rosas [facility] CPT-90230 Level 4 Est. Patient 10:31:15 CDT Jalil Hayes MD [facility]-56565 Level 4 Est. Patient 15:07:54 CDT Mraiaa Whitman [facility] CPT-78617 Level 3 Est. Patient 20:45:54 WEB PORTAL DEVELOPER Mariaa Lauxuanbeckie [facility] CPT-15282 Level 3 Est. Patient 12:16:16 CDT Ana Cristina Vallejo MD PhD [facility]-77744 Level 4 Est. Patient 12:49:21 CDT Ana Cristina Vallejo MD [facility] CPT-09772 Level 4 Est. Patient 23:02:25 CDT Ana Cristina Vallejo MD [facility] CPT-10918 Level 4 Est. Patient 19:26:33 WEB PORTAL DEVELOPER Ana Cristina Vallejo MD [facility] CPT-80348 Level 4 Est. Patient 11:28:14 CDT Ana Cristina Vallejo MD [facility] CPT-46998 Level 4 Est. Patient 15:35:46 WEB PORTAL DEVELOPER Ana Cristina Vallejo MD [facility] CPT-58094 Level 3 Est. Patient 21:06:39 WEB PORTAL DEVELOPER Alden Kim MD [facility] CPT-54867 Level 4 Est. Patient 15:30:54 WEB PORTAL DEVELOPER Ana Cristina Vallejo MD PhD [facility] Procedures Code Procedure Name Date Entry Date Standard Description CPT-G0439 [facility] Annual Wellness Exam 11:53:01 WEB PORTAL DEVELOPER CPT-68547 First Vx - Ix admin for Medicare patients 13:35:01 CDT CPT-02430 Fluzone High-Dose Intramuscular Suspension 13:35:01 CDT CPT-TCMM Transitional Care Mgmt-Moderate 14:41:55 CDT CPT-52438 EKG Trac and Interp - XRAY USE ONLY 10:35:11 CDT 09/11 CPT-92016 Chest 2V Frontal and Lat - XRAY USE ONLY 10:35:11 CDT CPT-G0438 Initial Annual Wellness Exam 14:54:07 CDT CPT-G0009 Administration of Pneumococcal Vaccine 14:44:24 CDT CPT-99578 Pneumovax 23 Injection Injectable 25 MCG/0.5ML 14:44:24 CDT CPT-26819 First Vx - Ix admin for Medicare patients 14:44:24 CDT CPT-81284 Fluzone High-Dose Intramuscular Suspension 14:44:20 CDT CPT-45694 BMP - LAB USE ONLY 12:38:06 CDT CPT-94168 Urine Culture - LAB USE ONLY 16:56:33 CDT CPT-TCMM Transitional Care Mgmt-Moderate 18:08:16 CDT CPT-48841 Bone Density 09:14:12 CDT CPT-000 Give Appropriate Flu Vaccine 14:51:52 CDT CPT-17883 Fluzone High Dose (>=65 yrs.) 15:19:23 CDT CPT-82095 Immunization Single Admin 15:19:23 CDT CPT-09264 Prevnar 13 15:40:03 CDT CPT-54715 Administration single or combination vaccine inc oral 15 :40:03 CDT CPT-97528 Prevnar 13 13:55:07 CDT CPT-G0008 Administration of Influenza Virus Vaccine 10:49:51 CDT CPT-24506 Fluzone High-Dose Intramuscular Suspension 10:49:51 CDT CPT-32621 Knee 3V 13:31:37 CDT CPT-63627 Bone Density 09:07:05 WEB PORTAL DEVELOPER CPT-31756 Nail Avulsion 09:46:05 CDT CPT-07087 Administration single or combination vaccine inc oral 16 :11:54 CDT CPT-34051 Influenza High Dose age 65+ 16:11:54 CDT CPT-00555 Administration single or combination vaccine inc oral 10 :53:15 CDT CPT-11888 Influenza High Dose age 65+ 10:53:15 CDT CPT-81205 Bone Density 14:50:58 WEB PORTAL DEVELOPER CPT-97753 Administration single or combination vaccine inc oral 15 :41:20 WEB PORTAL DEVELOPER CPT-22941 Zoster Vaccine (Zostavax) 15:41:20 WEB PORTAL DEVELOPER CPT-10189 Spec Collection and Handling Fee 11:18:25 WEB PORTAL DEVELOPER CPT-51608 Administration single or combination vaccine inc oral 11 :14:20 CDT CPT-45208 Influenza High Dose age 65+ 11:14:20 CDT
--- OUTSIDE RECORDS SUMMARY | 2017-07-18 09:16 | XMS REPORT | Clinical Summary ---
Author Author Admin, QIE Organization [employer] Address Unknown Phone Unavailable Allergies, Adverse Reactions, [...] each nostril daily for allergies FLUTICASONE PROPIONATE 79208175557 Active Mariaadomenico Whitman APRN Active CETIRIZINE HCL 10 MG ORAL TABS 1 po qd PRN Allergies CETIRIZINE HCL 23587084132 Active Mariaa Sidkum SECURITY CLERK Active BACTRIM DS 800-160 MG TABS 1 pill by mouth twice daily, for UTI SULFAMETHOXAZOLE-TRIMETHOPRIM 65921067899 No Longer Active Ana Cristina Vallejo MD PhD Active HYDROCHLOROTHIAZIDE 12.5 MG CAPS 1 pill by mouth daily, for blood pressure HYDROCHLOROTHIAZIDE 16265156126 Active Mariaa Antonette SECURITY CLERK Active CARVEDILOL 25 MG TABS 1 pill by mouth twice daily for blood pressure CARVEDILOL 21214977326 Active Mariaa Laudee SWARTZN Active SYNTHROID 0.088 MG TAB 1 tablet by mouth daily for thyroid LEVOTHYROXINE SODIUM 17894877243 Active Mariaa Antonette SWARTZN Active AMOXICILLIN 500 MG CAP 1 tab by mouth 3 times daily AMOXICILLIN 55907042184 No Longer Active Alden Kim MD Active CVS VITAMIN D3 1000 UNIT CAPS TAKE 2 CAP DAILY CHOLECALCIFEROL 10350707288 Active Ana Cristina Vallejo MD PhD Active CALCIUM 500 MG TABS TAKE 3 TABS DAILY CALCIUM 36448852578 Active Aneta Tavarezum [facility] AFFAIRS PORTFOLIO LEADER Active MULTIVITAMINS TABS TAKE 1 TAB DAILY MULTIPLE VITAMIN 60837305581 Active Aneta Tavarezum REGULATORY AFFAIRS PORTFOLIO LEADER Active BENADRYL ALLERGY 25 MG TABS NEEDED DIPHENHYDRAMINE HCL 32815873316 Active Aneta Tavarezum REGULATORY AFFAIRS PORTFOLIO LEADER Active TYLENOL 325 MG TABS NEEDED ACETAMINOPHEN 22973987432 Active Aneta Tavarezum REGULATORY AFFAIRS PORTFOLIO LEADER Active ADVIL 200 MG TABS TAKE NEEDED IBUPROFEN 92090063308 Active Aneta Tavarezum [employer] AFFAIRS PORTFOLIO LEADER Active ADULT ASPIRIN EC LOW STRENGTH 81 MG TBEC TAKE 1 TAB DAILY ASPIRIN 40483562587 Active Aneta Tavarezum [facility]AT[facility] AFFAIRS PORTFOLIO LEADER Active VITAMIN E NATURAL 400 UNIT CAPS TAKE 1 CAP DAILY VITAMIN E 28179537270 Active Aneta Tavarezum REGULATORY AFFAIRS PORTFOLIO LEADER Active GLUCOSAMINE-CHONDROITIN 500-400 MG TABS TAKE 1 TAB DAILY GLUCOSAMINE-CHONDROITIN 51089106374 Active Aneta Tavarezum REGULATORY AFFAIRS PORTFOLIO LEADER Active NORVASC 10 MG TABS TAKE 1 TAB DAILY AMLODIPINE BESYLATE 27491901911 Active Mariaa Whitman SECURITY CLERK Active BENAZEPRIL HCL 40 MG TABS 1 PO BID BENAZEPRIL HCL 61188428050 Active Mariaa Whitman SECURITY CLERK Active LOVASTATIN 20 MG TABS 1 PO Q HS FOR CHOLESTEROL LOVASTATIN 22234616180 Active Mariaa Whitman SECURITY CLERK Active RANITIDINE HCL 150 MG CAPS 1 PO Q 12 HRS RANITIDINE HCL 52772401578 Active Mariaa Whitman SECURITY CLERK Active ALENDRONATE SODIUM 70 MG TABS TAKE 1 TAB ONCE A WEEK ALENDRONATE SODIUM 21034475262 Active Mariaa Whitman SECURITY CLERK Active AMOXICILLIN 500 MG CAP 1 tab by mouth 3 times daily AMOXICILLIN 500 MG CAP 047960 AMOXICILLIN Inactive BACTRIM DS 800-160 MG TABS 1 pill by mouth twice daily, for UTI BACTRIM DS 800-160 MG TABS 895526 SULFAMETHOXAZOLE-TRIMETHOPRIM Inactive Immunizations Vaccine Administration Date Value [...] ... - Chemistry sodium, serum 132 mmol/L 009-319 0648/04/20 carbon dioxide, venous blood 31.3 mmol/L 21.0-32.0 [...] 1.41 ng/dL 0.76-1.46 cholesterol, serum 166 mg/dL 624-343 8201/04/20 triglyceride, serum, fasting 68 mg/dL 30-200 HDL [...] 5.0-8.5 Encounters Code Encounter Date Provider Facility CPT-06994 Level 3 Est. 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 Patient 12:16:16 CDT Ana Cristina Vallejo MD [facility]-06771 Level 4 Est. Patient 12:49:21 CDT Ana Cristina Vallejo MD [facility]-31755 Level 4 Est. Patient 23:02:25 CDT Ana Cristina Vallejo MD [facility]-66628 Level 4 Est. Patient 19:26:33 SHELL PRESS OPERATOR Ana Cristina Vallejo MD [facility]606 Level 4 Est. Patient 11:28:14 CDT Ana Cristina Vallejo MD [facility]-44692 Level 4 Est. Patient 15:35:46 SHELL PRESS OPERATOR Ana Cristina Vallejo MD PhD [facility] CPT-93199 Level 3 Est. Patient 21:06:39 SHELL PRESS OPERATOR Alden Kim MD [facility] CPT-08518 Level 4 Est. Patient 15:30:54 SHELL PRESS OPERATOR Ana Cristina Vallejo MD PhD [facility] Procedures Code Procedure Name Date Entry Date Standard Description CPT-02546 Bone Density 09:14:12 CDT CPT-000 Give Appropriate Flu Vaccine 14:51:52 CDT CPT-14940 Fluzone High Dose (>=65 yrs.) 15:19:23 CDT CPT-03092 Immunization Single Admin 15:19:23 CDT CPT-34894 Prevnar 13 15:40:03 CDT CPT-97417 Administration single or combination vaccine inc oral 15 :40:03 CDT CPT-23352 Prevnar 13 13:55:07 CDT CPT-G0008 Administration of Influenza Virus Vaccine 10:49:51 CDT CPT-46646 Fluzone High-Dose Intramuscular Suspension 10:49:51 CDT CPT-40723 Knee 3V 13:31:37 CDT CPT-60097 Bone Density 09:07:05 SHELL PRESS OPERATOR CPT-73112 Nail Avulsion 09:46:05 CDT CPT-77732 Administration single or combination vaccine inc oral 16 :11:54 CDT CPT-49069 Influenza High Dose age 65+ 16:11:54 CDT CPT-49089 Administration single or combination vaccine inc oral 10 :53:15 CDT CPT-64057 Influenza High Dose age 65+ 10:53:15 CDT CPT-61339 Bone Density 14:50:58 SHELL PRESS OPERATOR CPT-33921 Administration single or combination vaccine inc oral 15 :41:20 SHELL PRESS OPERATOR CPT-00170 Zoster Vaccine (Zostavax) 15:41:20 SHELL PRESS OPERATOR CPT-38669 Spec Collection and Handling Fee 11:18:25 SHELL PRESS OPERATOR CPT-31747 Administration single or combination vaccine inc oral 11 :14:20 CDT CPT-74669 Influenza High Dose age 65+ 11:14:20 CDT
--- OUTSIDE RECORDS SUMMARY | 2017-07-18 09:16 | XMS REPORT ---
Author Author [facility] Medical Staff Organization [facility] Address [address] [place], [place] [id number] Phone [phone] Care Team Providers Care Advance Seal Delivery System Maintainer Name Role Phone IRISH ANDRE APRN PP [phone] Summary purpose TRANSITION OF CARE AUTO GENERATION [...] tests and/or laboratory data RESULTS Routine Urinalysis :25:00 Result Normal Range Units Color YELLOW Clarity Turbid Specific [place] 1.007 1.003-1.035 pH 6.5 4.5-8.0 Glucose NEGATIVE Bilirubin NEGATIVE Ketones NEGATIVE Protein 2+ Urobilinogen 0.2 0-0.2 E.U./dL Nitrites NEGATIVE Blood 3+ Leukocytes 3+ WBCs Too numerous to count RBCs 10-20 Squamous Epithelial Few Bacteria 1+ Body Fluid :25:00 Result Normal Range Units pH 6.5 4.5-8.0 History of procedures No procedures recorded for [...]
--- NOTE | 2017-07-18 09:17 | D/C HH Face to Face Order ---
D/C Face to Face Orders Instructions for Patient Patient Instructions/FollowUp: three weeks Physician to follow Patient: three weeks Discharge Diet for Home: Regular Diet Patient Data-Allergies,Ht & Wt Patient Allergies: Coded Allergies: No Known Drug Allergies (Unverified , 07/09/17) Height (Feet): 5 Height (Inches): 5.00 Weight (Pounds): 186 Weight (Ounces): 0.0 Home Health Need/Face to Face Date of Face to Face: Jul 18, 2017 Clinical Findings: Generalized weakness and fatigue, Instability, Muscle weakness, Non or partial weight bearing, Pain with ambulation I have seen Pt [id number]: Yes Discharged To: Home Diagnosis/Conditions: left total knee arthroplasty Problems/Diagnosis/Condition: Patient is Homebound due to: Carlos Manuel fall risk due to instabilty, Muscle weakness , Pain w/ambulation Homebound Status Due to the above stated illness, injury or surgical procedure (medical condition or diagnosis) and associated clinical findings, the patient is homebound because of his/her inability to leave home except with aid of a supportive device and/or person AND leaving the home requires a considerable and taxing effort or is medically contraindicated. Pt req the following assistanc: [facility] Line Start Date: Jul 18, 2017 Line Start Time: 0820 Line Type: Peripheral IV Site Location: Antecubital Certify Stmt I certify that this patient is under my care and that I, a nurse practitioner or a physician; a personal assistant working with me, had a face to face encounter that - meets the physician face to face encounter requirements with this patient as dated. LISSETTE RIOS MD Jul 18, 2017 09:17
--- OUTSIDE RECORDS SUMMARY | 2017-07-18 09:17 | XMS REPORT | Clinical Summary ---
Author Author Admin, DANDRE Organization [facility] Address Unknown Phone Unavailable Allergies, Adverse Reactions, Alerts Allergy Name Reaction Description Start Date Severity Status Provider NKDA Critical Active Mariaa Whitman RN SOCIAL WORK Conditions or Problems Problem Name Problem Code Onset Date Status Entry Date Provider Comment Standard Description Annotate ROUTINE GYNECOLOGICAL EXAMINATION V72.31 Resolved Ana Cristina Vallejo MD PhD Routine gynecological examination MENOPAUSE 627.2 Ruled out Ana Cristina Vallejo MD PhD Symptomatic menopausal or female climacteric states MENOPAUSE 627.2 Active Brianda Reis [facility] Symptomatic menopausal or female climacteric states DIVERTICULOSIS, [...] TABLET 1 po daily MULTIPLE VITAMINS- CALCIUM 80935428957 Active HEDY Esquivel Active CIPRO 250 MG ORAL TABS 1 tab BID for 7 days CIPROFLOXACIN HCL 83491210790 Active Deepti Junior LPN Active MACROBID 100 MG ORAL CAPS 1 tab BID for 5 days NITROFURANTOIN MONOHYD MACRO 47758711919 No Longer Active Deepti Junior LPN Active HYDROCHLOROTHIAZIDE 12.5 MG CAPS 1 pill by mouth daily HYDROCHLOROTHIAZIDE 75993620092 Active Jalil Hayes MD Active RANITIDINE HCL 150 MG CAPS once nightly RANITIDINE HCL 69301535697 Active Jalil Hayes MD Active BENAZEPRIL HCL 40 MG TABS 1 daily for blood pressure BENAZEPRIL HCL 55585236097 Active Jalil Hayes MD Active HYDROCHLOROTHIAZIDE 12.5 MG CAPS 1 pill by mouth daily, for blood pressure HYDROCHLOROTHIAZIDE 49388628082 No Longer Active Jalil Hayes MD Active AUGMENTIN 875-125 MG TAB 1 po BID x 7 days AMOXICILLIN-POT CLAVULANATE 85466114723 No Longer Active Jalil Hayes MD Active OMEPRAZOLE 40 MG CPDR 1 po q a.m. OMEPRAZOLE 98866570084 Active Peggy Pardo LPN Active MIRALAX ORAL PACK Takes daily prn POLYETHYLENE GLYCOL 3350 46556127517 No Longer Active Peggy Pardo LPN Active FLONASE ALLERGY RELIEF 50 MCG/ACT NASAL SUSP One spray each nostril daily for allergies FLUTICASONE PROPIONATE 37615066062 No Longer Active Peggy Pardo LPN Active BENADRYL ALLERGY 25 MG TABS NEEDED DIPHENHYDRAMINE HCL 20512916175 No Longer Active Peggy Pardo LPN Active ADVIL 200 MG TABS TAKE NEEDED IBUPROFEN 77150007548 No Longer Active Peggy Pardo LPN Active COLACE 100 MG CAP 1 po BID PRN Constipation DOCUSATE SODIUM 55128350113 No Longer Active Deepti Junior LPN Active ALPRAZOLAM 0.25 MG TAB 1/2-1 tablet by mouth twice a day as needed for stress ALPRAZOLAM 81756815091 No Longer Active Deepti Junior LPN Active ALENDRONATE SODIUM 70 MG TABS 1 pill by mouth weekly for osteoporosis ALENDRONATE SODIUM 16810974154 Active Mariaa Whitman APRN Active E-1000 1000 UNIT ORAL CAPS Take one by mouth daily VITAMIN E 82624705084 Active HEDY Esquivel Active OSCAL 500/200 D-3 500-200 MG-UNIT ORAL TABS Take one by mouth 3 times daily, morning, afternoon and evening.] CALCIUM CARBONATE-VITAMIN D 13433733693 Active HEDY Esquivel Active ASPIRIN 81 MG CHEW TAB 1 tablet by mouth daily ASPIRIN 46895251110 Active HEDY Esquivel Active ADULT ASPIRIN EC LOW STRENGTH 81 MG TBEC TAKE 1 TAB DAILY ASPIRIN 35515997709 No Longer Active Mariaa Whitman APRN Active ALENDRONATE SODIUM 70 MG TABS TAKE 1 TAB ONCE A WEEK ALENDRONATE SODIUM 23329470542 No Longer Active Mariaa Whitman APRN Active CETIRIZINE HCL 10 MG ORAL TABS 1 po qd PRN Allergies CETIRIZINE HCL 56412003928 Active HEDY Esquivel Active BACTRIM DS 800-160 MG TABS 1 pill by mouth twice daily, for UTI SULFAMETHOXAZOLE-TRIMETHOPRIM 37455369443 No Longer Active Ana Cristina Vallejo MD PhD Active CARVEDILOL 25 MG TABS 1 pill by mouth twice daily for blood pressure CARVEDILOL 26744590216 Active HEDY Esquivel Active SYNTHROID 0.088 MG TAB 1 tablet by mouth daily for thyroid LEVOTHYROXINE SODIUM 33602223607 Active HEDY Esquivel Active AMOXICILLIN 500 MG CAP 1 tab by mouth 3 times daily AMOXICILLIN 90216454609 No Longer Active Alden Kim MD Active CVS VITAMIN D3 1000 UNIT CAPS TAKE 2 CAP DAILY CHOLECALCIFEROL Active Ana Cristina Vallejo MD PhD Active CALCIUM 500 MG TABS TAKE 3 TABS DAILY CALCIUM 47492851602 No Longer Active Mariaa Whitman APRN Active MULTIVITAMINS TABS TAKE 1 TAB DAILY MULTIPLE VITAMIN No Longer Active Aneta Tavarezum R&D LAB TECHNICIAN Active TYLENOL 325 MG TABS NEEDED ACETAMINOPHEN 71501115227 Active Aneta Tavarezum R&D LAB TECHNICIAN Active GLUCOSAMINE-CHONDROITIN 500-400 MG TABS TAKE 1 TAB DAILY GLUCOSAMINE-CHONDROITIN 74987116306 Active Mariaa Whitman APRN Active NORVASC 10 MG TABS TAKE 1 TAB DAILY AMLODIPINE BESYLATE 74519749886 Active HEDY Esquivel Active LOVASTATIN 20 MG TABS 1 PO Q HS FOR CHOLESTEROL LOVASTATIN 58045261477 Active HEDY Esquivel Active ALENDRONATE SODIUM 70 MG TABS TAKE 1 TAB ONCE A WEEK ALENDRONATE SODIUM 70 MG TABS 320468 ALENDRONATE SODIUM Inactive ADULT ASPIRIN EC LOW STRENGTH 81 MG TBEC TAKE 1 TAB DAILY ADULT ASPIRIN EC LOW STRENGTH 81 MG TBEC 441744 ASPIRIN Inactive ALPRAZOLAM 0.25 MG TAB 1/2-1 tablet by mouth twice a day as needed for stress ALPRAZOLAM 0.25 MG TAB 530221 ALPRAZOLAM Inactive COLACE 100 MG CAP 1 po BID PRN Constipation COLACE 100 MG CAP 7518580 DOCUSATE SODIUM Inactive ADVIL 200 MG TABS TAKE NEEDED ADVIL 200 MG TABS 881070 IBUPROFEN Inactive BENADRYL ALLERGY 25 MG TABS NEEDED BENADRYL ALLERGY 25 MG TABS 8309860 DIPHENHYDRAMINE HCL Inactive FLONASE ALLERGY RELIEF 50 MCG/ACT NASAL SUSP One spray each nostril daily for allergies FLONASE ALLERGY RELIEF 50 MCG/ACT NASAL SUSP 3306713 FLUTICASONE PROPIONATE Inactive MIRALAX ORAL PACK Takes daily prn MIRALAX ORAL PACK 660383 POLYETHYLENE GLYCOL 3350 Inactive AUGMENTIN 875-125 MG TAB 1 po BID x 7 days AUGMENTIN 875-125 MG TAB 264320 AMOXICILLIN-POT CLAVULANATE Inactive HYDROCHLOROTHIAZIDE 12.5 MG CAPS 1 pill by mouth daily, for blood pressure HYDROCHLOROTHIAZIDE 12.5 MG CAPS 837908 HYDROCHLOROTHIAZIDE Inactive AMOXICILLIN 500 MG CAP 1 tab by mouth 3 times daily AMOXICILLIN 500 MG CAP 134410 AMOXICILLIN Inactive BACTRIM DS 800-160 MG TABS 1 pill by mouth twice daily, for UTI BACTRIM DS 800-160 MG TABS 155038 SULFAMETHOXAZOLE-TRIMETHOPRIM Inactive MACROBID 100 MG ORAL CAPS 1 tab BID for 5 days MACROBID 100 MG ORAL CAPS 3178362 NITROFURANTOIN MONOHYD MACRO Inactive Advance Directives Directive [...] 1.12 mg/dL 0.55-1.30 sodium, serum 132 mmol/L 228-378 0592/10/19 blood glucose 118 mg/dL 65-110 carbon dioxide, venous blood 33.6 mmol/L 21.0-32.0 chloride, serum 92 mmol/L 98-107 potassium, serum 3.5 mmol/L 3.5-5.2 sodium, serum 130 mmol/L 647-984 3922/08/09 potassium, serum 4.2 mmol/L 3.5-5.2 chloride, serum 99 mmol/L 98-107 carbon dioxide, venous blood 24.7 mmol/L 21.0-32.0 blood glucose 119 mg/dL 65-110 calcium, serum 8.5 mg/dL 8.5-10.1 urea nitrogen, blood 14 mg/dL 7-18 creatinine, serum 1.16 mg/dL 0.60-1.30 Lab Report: CBC-QUEST, COMPREHENSIVE METABOLIC PANEL, LIPID PANEL, Micro ... - Chemistry cholesterol, serum 162 mg/dL 115-111 3772/05/01 HDL cholesterol, serum 68 mg/dL > OR=46 [...] % 11.0-15.0 platelet count 297 THOUSAND/UL 10*3/mm3 942-914 4713/05/01 mean platelet volume 8.9 fL 7.5-12.5 Lab [...] 5.0-8.5 Encounters Code Encounter Date Provider Facility [facility]-35319 Level 3 Est. Patient 13:55:49 CDT Jalil Hayes MD [facility]69841 Level 3 Est. Patient 14:38:15 CDT Jalil Hayes MD [facility]85954 Level 4 Est. Patient 14:40:54 CDT Bee Rosas [facility]49891 Level 4 Est. Patient 10:31:15 CDT Jalil Hayes MD [facility]11438 Level 4 Est. Patient 15:07:54 CDT Mariaa Whitman [facility]20983 Level 3 Est. 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 Patient 12:16:16 CDT Ana Cristina Vallejo MD [facility]59346 Level 4 Est. Patient 12:49:21 CDT Ana Cristina Vallejo MD [facility]26745 Level 4 Est. Patient 23:02:25 CDT Ana Cristina Vallejo MD [facility]82387 Level 4 Est. 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 Patient 11:28:14 CDT Ana Cristina Vallejo MD [facility]49 Level 4 Est. Patient 15:35:46 LOW ALTITUDE [employer] DEFENSE GUNNER Ana Cristina Vallejo MD [facility] CPT-56958 Level 3 Est. Patient 21:06:39 LOW [employer]IT[employer]DE [employer] GUNNER Alden Kim MD [facility] CPT-54501 Level 4 Est. Patient 15:30:54 LOW [employer]ITUDE [employer] DEFENSE GUNNER Ana Cristina Vallejo MD PhD [facility] Procedures Code Procedure Name Date Entry Date Standard Description CPT-TCMM Transitional Care Mgmt-Moderate 14:41:55 CDT CPT-61266 EKG Trac and Interp - XRAY USE ONLY 10:35:11 CDT 09/11 CPT-74209 Chest 2V Frontal and Lat - XRAY USE ONLY 10:35:11 CDT CPT-G0438 Initial Annual Wellness Exam 14:54:07 CDT CPT-G0009 Administration of Pneumococcal Vaccine 14:44:24 CDT CPT-49627 Pneumovax 23 Injection Injectable 25 MCG/0.5ML 14:44:24 CDT CPT-89807 First Vx - Ix admin for Medicare patients 14:44:24 CDT CPT-58452 Fluzone High-Dose Intramuscular Suspension 14:44:20 CDT CPT-23091 BMP - LAB USE ONLY 12:38:06 CDT CPT-54096 Urine Culture - LAB USE ONLY 16:56:33 CDT CPT-TCMM Transitional Care Mgmt-Moderate 18:08:16 CDT CPT-40470 Bone Density 09:14:12 CDT CPT-000 Give Appropriate Flu Vaccine 14:51:52 CDT CPT-17882 Fluzone High Dose (>=65 yrs.) 15:19:23 CDT CPT-07653 Immunization Single Admin 15:19:23 CDT CPT-83100 Prevnar 15:40:03 CDT CPT-76888 Administration single or combination vaccine inc oral 15 :40:03 CDT CPT-95972 Prevnar 13 13:55:07 CDT CPT-G0008 Administration of Influenza Virus Vaccine 10:49:51 CDT CPT-71795 Fluzone High-Dose Intramuscular Suspension 10:49:51 CDT CPT-97455 Knee 3V 13:31:37 CDT CPT-60527 Bone Density 09:07:05 LOW ALTIT[employer]DE [employer] GUNNER CPT-34776 Nail Avulsion 09:46:05 CDT CPT-30463 Administration single or combination vaccine inc oral 16 :11:54 CDT CPT-63731 Influenza High Dose age 65+ 16:11:54 CDT CPT-95506 Administration single or combination vaccine inc oral 10 :53:15 CDT CPT-49766 Influenza High Dose age 65+ 10:53:15 CDT CPT-62813 Bone Density 14:50:58 LOW [employer]IT[employer]DE [employer] G[employer]NER CPT-45944 Administration single or combination vaccine inc oral 15 :41:20 LOW ALTITUDE [employer] DEF[employer] GUNNER CPT-71600 Zoster Vaccine (Zostavax) 15:41:20 LOW ALTIT[employer]DE [employer] G[employer]NER CPT-94972 Spec Collection and Handling Fee 11:18:25 LOW 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
[2017-07-18] MEDS ORDERED: OXYC-197 PO (09:18)
--- OUTSIDE RECORDS SUMMARY | 2017-07-18 09:18 | XMS REPORT | Clinical Summary ---
Author Author Admin, QIE Organization [facility] Address Unknown Phone Unavailable Allergies, Adverse Reactions, Alerts Allergy Name Reaction Description Start Date Severity Status Provider No Known Allergies Jackelin Barth RPT,RMA NKDA Critical Active Mariaa Whitman ADMINISTRATIVE AIDE Conditions or Problems Problem Name Problem Code [...] PACK Takes daily prn POLYETHYLENE GLYCOL 3350 [id number] Active Mariaa Whitman APRN Active ALENDRONATE SODIUM 70 MG TABS 1 pill by mouth weekly for osteoporosis ALENDRONATE SODIUM 92839023047 Active Brianda KNOTT Active E-1000 1000 UNIT ORAL CAPS Take one by mouth daily VITAMIN E 84547053546 Active Brianda KNOTT Active OSCAL 500/200 D-3 500-200 MG-UNIT ORAL TABS Take one by mouth 3 times daily, morning, afternoon and evening.] CALCIUM CARBONATE-VITAMIN D 57919738076 Active Brianda KNOTT Active ASPIRIN 81 MG CHEW TAB 1 tablet by mouth daily ASPIRIN 83174272840 Active Brianda RICK Active ADULT ASPIRIN EC LOW STRENGTH 81 MG TBEC TAKE 1 TAB DAILY ASPIRIN 12596997846 No Longer Active Mariaa Whitman APRN Active ALENDRONATE SODIUM 70 MG TABS TAKE 1 TAB ONCE A WEEK ALENDRONATE SODIUM 45998189964 No Longer Active Mariaa Whitman APRN Active FLONASE ALLERGY RELIEF 50 MCG/ACT NASAL SUSP One spray each nostril daily for allergies FLUTICASONE PROPIONATE 05918192356 Active Mariaa Whitman APRN Active CETIRIZINE HCL 10 MG ORAL TABS 1 po qd PRN Allergies CETIRIZINE HCL 69557724268 Active Mariaa Whitman APRN Active BACTRIM DS 800-160 MG TABS 1 pill by mouth twice daily, for UTI SULFAMETHOXAZOLE-TRIMETHOPRIM 00436161233 No Longer Active Ana Cristina Vallejo MD PhD Active HYDROCHLOROTHIAZIDE 12.5 MG CAPS 1 pill by mouth daily, for blood pressure HYDROCHLOROTHIAZIDE 43927850631 Active Mariaa Whitman APRN Active CARVEDILOL 25 MG TABS 1 pill by mouth twice daily for blood pressure CARVEDILOL 88764001208 Active Mariaa Whitman APRN Active SYNTHROID 0.088 MG TAB 1 tablet by mouth daily for thyroid LEVOTHYROXINE SODIUM 52759117317 Active Mariaa Whitman ADMINISTRATIVE AIDE Active AMOXICILLIN 500 MG CAP 1 tab by mouth 3 times daily AMOXICILLIN 83170112595 No Longer Active Alden Kim MD Active CVS VITAMIN D3 1000 UNIT CAPS TAKE 2 CAP DAILY CHOLECALCIFEROL Active Ana Cristina Vallejo MD PhD Active CALCIUM 500 MG TABS TAKE 3 TABS DAILY CALCIUM 48723574939 No Longer Active Mariaa Demetrioum ADMINISTRATIVE AIDE Active MULTIVITAMINS TABS TAKE 1 TAB DAILY MULTIPLE VITAMIN Active Aneta D Leo CRIMINAL RECORDS TECHNICIAN Active BENADRYL ALLERGY 25 MG TABS NEEDED DIPHENHYDRAMINE HCL 57360653993 Active Aneta D Elo CRIMINAL RECORDS TECHNICIAN Active TYLENOL 325 MG TABS NEEDED ACETAMINOPHEN 69500085147 Active Aneta D Leo CRIMINAL RECORDS TECHNICIAN Active ADVIL 200 MG TABS TAKE NEEDED IBUPROFEN 38206699647 Active Aneta D Leo CRIMINAL RECORDS TECHNICIAN Active GLUCOSAMINE-CHONDROITIN 500-400 MG TABS TAKE 1 TAB DAILY GLUCOSAMINE-CHONDROITIN 19773049512 Active Mariaa Yokum ADMINISTRATIVE AIDE Active NORVASC 10 MG TABS TAKE 1 TAB DAILY AMLODIPINE BESYLATE 07191665119 Active Mariaa Yokum ADMINISTRATIVE AIDE Active BENAZEPRIL HCL 40 MG TABS 1 PO BID BENAZEPRIL HCL 49554495069 Active Mariaadomenico Atkinsonum ADMINISTRATIVE AIDE Active LOVASTATIN 20 MG TABS 1 PO Q HS FOR CHOLESTEROL LOVASTATIN 97814022818 Active Mariaadomenico Atkinsonum ADMINISTRATIVE AIDE Active RANITIDINE HCL 150 MG CAPS 1 PO Q 12 HRS RANITIDINE HCL 79414711511 Active Mariaa Demetrioum ADMINISTRATIVE AIDE Active ALENDRONATE SODIUM 70 MG TABS TAKE 1 TAB ONCE A WEEK ALENDRONATE SODIUM 70 MG TABS 909095 ALENDRONATE SODIUM Inactive ADULT ASPIRIN EC LOW STRENGTH 81 MG TBEC TAKE 1 TAB DAILY ADULT ASPIRIN EC LOW STRENGTH 81 MG TBEC 445839 ASPIRIN Inactive AMOXICILLIN 500 MG CAP 1 tab by mouth 3 times daily AMOXICILLIN 500 MG CAP 454295 AMOXICILLIN Inactive BACTRIM DS 800-160 MG TABS 1 pill by mouth twice daily, for UTI BACTRIM DS 800-160 MG TABS 964430 SULFAMETHOXAZOLE-TRIMETHOPRIM Inactive Advance Directives Directive Description Start [...] Panel - Chemistry sodium, serum 130 mmol/L 306-931 7123/10/19 potassium, serum 3.5 mmol/L 3.5-5.2 chloride, serum [...] 1.41 ng/dL 0.76-1.46 cholesterol, serum 166 mg/dL 569-486 5405/04/20 triglyceride, serum, fasting 68 mg/dL 30-200 HDL cholesterol, serum 88 mg/dL 32-96 LDL cholesterol, serum 64 mg/dL 0-130 sodium, serum 132 mmol/L 860-073 3887/04/20 carbon dioxide, venous blood 31.3 mmol/L 21.0-32.0 [...] 5.0-8.5 Encounters Code Encounter Date Provider Facility CPT-81673 Level 4 Est. Patient 15:07:54 CDT Mariaa Whitman [facility] CPT-26362 Level 3 Est. 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 Patient 12:16:16 CDT Ana Cristina Vallejo MD [facility] CPT-67139 Level 4 Est. Patient 12:49:21 CDT Ana Cristina Vallejo MD [facility] CPT-01870 Level 4 Est. Patient 23:02:25 CDT Ana Cristina Vallejo MD [facility] CPT-22485 Level 4 Est. Patient 19:26:33 INDUSTRIAL REFRIGERATION MECHANIC Ana Cristina Vallejo MD [facility] CPT-81151 Level 4 Est. Patient 11:28:14 CDT Ana Cristina Vallejo MD [facility] CPT-13483 Level 4 Est. Patient 15:35:46 INDUSTRIAL REFRIGERATION MECHANIC Ana Cristina Vallejo MD [facility] CPT-52519 Level 3 Est. Patient 21:06:39 INDUSTRIAL REFRIGERATION MECHANIC Alden Kim MD [facility] CPT-69748 Level 4 Est. Patient 15:30:54 INDUSTRIAL REFRIGERATION MECHANIC Ana Cristina Vallejo MD [facility] Procedures Code Procedure Name Date Entry Date Standard Description CPT-G0009 Administration of Pneumococcal Vaccine 14:44:24 CDT CPT-75725 Pneumovax 23 Injection Injectable 25 MCG/0.5ML 14:44:24 CDT CPT-47132 First Vx - Ix admin for Medicare patients 14:44:24 CDT CPT-48999 Fluzone High-Dose Intramuscular Suspension 14:44:20 CDT CPT-18578 BMP - LAB USE ONLY 12:38:06 CDT CPT-14205 Urine Culture - LAB USE ONLY 16:56:33 CDT CPT-TCMM Transitional Care Mgmt-Moderate 18:08:16 CDT CPT-22092 Bone Density 09:14:12 CDT CPT-000 Give Appropriate Flu Vaccine 14:51:52 CDT CPT-33399 Fluzone High Dose (>=65 yrs.) 15:19:23 CDT CPT-05716 Immunization Single Admin 15:19:23 CDT CPT-69108 Prevnar 13 15:40:03 CDT CPT-50183 Administration single or combination vaccine inc oral 15 :40:03 CDT CPT-85670 Prevnar 13 13:55:07 CDT CPT-G0008 Administration of Influenza Virus Vaccine 10:49:51 CDT CPT-56775 Fluzone High-Dose Intramuscular Suspension 10:49:51 CDT CPT-92895 Knee 3V 13:31:37 CDT CPT-95859 Bone Density 09:07:05 INDUSTRIAL REFRIGERATION MECHANIC CPT-29745 Nail Avulsion 09:46:05 CDT CPT-68149 Administration single or combination vaccine inc oral 16 :11:54 CDT CPT-74402 Influenza High Dose age 65+ 16:11:54 CDT CPT-10481 Administration single or combination vaccine inc oral 10 :53:15 CDT CPT-30544 Influenza High Dose age 65+ 10:53:15 CDT CPT-01506 Bone Density 14:50:58 INDUSTRIAL REFRIGERATION MECHANIC CPT-98630 Administration single or combination vaccine inc oral 15 :41:20 INDUSTRIAL REFRIGERATION MECHANIC CPT-97864 Zoster Vaccine (Zostavax) 15:41:20 INDUSTRIAL REFRIGERATION MECHANIC CPT-35466 Spec Collection and Handling Fee 11:18:25 INDUSTRIAL REFRIGERATION MECHANIC CPT-16955 Administration single or combination vaccine inc oral 11 :14:20 CDT CPT-65755 Influenza High Dose age 65+ 11:14:20 CDT
--- OUTSIDE RECORDS SUMMARY | 2017-07-18 09:18 | XMS REPORT | Clinical Summary ---
Author Author Admin, HUYENE Organization [facility] Address Unknown Phone Unavailable Allergies, Adverse Reactions, [...] by mouth weekly for osteoporosis ALENDRONATE SODIUM 18360926636 Active Brianda Reis [facility] Active E-1000 1000 UNIT ORAL CAPS Take one by mouth daily VITAMIN E 59131624430 Active Brianda KNOTT Active OSCAL 500/200 D-3 500-200 MG-UNIT ORAL TABS Take one by mouth 3 times daily, morning, afternoon and evening.] CALCIUM CARBONATE-VITAMIN D 07838348295 Active Brianda KNOTT Active ASPIRIN 81 MG CHEW TAB 1 tablet by mouth daily ASPIRIN 85389373296 Active Brianda RICK Active ADULT ASPIRIN EC LOW STRENGTH 81 MG TBEC TAKE 1 TAB DAILY ASPIRIN 87858314605 No Longer Active Mariaa Whitman APRN Active ALENDRONATE SODIUM 70 MG TABS TAKE 1 TAB ONCE A WEEK ALENDRONATE SODIUM 14571700106 No Longer Active Mariaa Whitman APRN Active FLONASE ALLERGY RELIEF 50 MCG/ACT NASAL SUSP One spray each nostril daily for allergies FLUTICASONE PROPIONATE 55771223183 Active Mariaa Whitman APRN Active CETIRIZINE HCL 10 MG ORAL TABS 1 po qd PRN Allergies CETIRIZINE HCL 31298077040 Active Mariaa Whitman APRN Active BACTRIM DS 800-160 MG TABS 1 pill by mouth twice daily, for UTI SULFAMETHOXAZOLE-TRIMETHOPRIM 77874625152 No Longer Active Ana Cristina Vallejo MD PhD Active HYDROCHLOROTHIAZIDE 12.5 MG CAPS 1 pill by mouth daily, for blood pressure HYDROCHLOROTHIAZIDE 92409726637 Active Mariaa Whitman APRN Active CARVEDILOL 25 MG TABS 1 pill by mouth twice daily for blood pressure CARVEDILOL 67567341714 Active Mariaa Whitman APRN Active SYNTHROID 0.088 MG TAB 1 tablet by mouth daily for thyroid LEVOTHYROXINE SODIUM 04482693449 Active Mariaa Whitman APRN Active AMOXICILLIN 500 MG CAP 1 tab by mouth 3 times daily AMOXICILLIN 30928744210 No Longer Active Alden Kim MD Active CVS VITAMIN D3 1000 UNIT CAPS TAKE 2 CAP DAILY CHOLECALCIFEROL Active Ana Cristina Vallejo MD PhD Active CALCIUM 500 MG TABS TAKE 3 TABS DAILY CALCIUM 70122528339 No Longer Active Mariaa Whitman FOUNDRY LABORER [employer]ERO[employer] Active MULTIVITAMINS TABS TAKE 1 TAB DAILY MULTIPLE VITAMIN Active Aneta Tavarezum SHELL PRESS OPERATOR Active BENADRYL ALLERGY 25 MG TABS NEEDED DIPHENHYDRAMINE HCL 34869158755 Active Aneta Tavarezum SHELL PRESS OPERATOR Active TYLENOL 325 MG TABS NEEDED ACETAMINOPHEN 55816661949 Active Aneta Tavarezum SHELL PRESS OPERATOR Active ADVIL 200 MG TABS TAKE NEEDED IBUPROFEN 70015900907 Active Aneta Tavarezum SHELL PRESS OPERATOR Active GLUCOSAMINE-CHONDROITIN 500-400 MG TABS TAKE 1 TAB DAILY GLUCOSAMINE-CHONDROITIN 70326739903 Active Mariaa Whitman FOUNDRY LABORER [employer]EROOM Active NORVASC 10 MG TABS TAKE 1 TAB DAILY AMLODIPINE BESYLATE 86158866188 Active Mariaa Atkinsonum FOUNDRY LABORER [employer]EROOM Active BENAZEPRIL HCL 40 MG TABS 1 PO BID BENAZEPRIL HCL 65475191948 Active Mariaa Whitman FOUNDRY LABORER COREROOM Active LOVASTATIN 20 MG TABS 1 PO Q HS FOR CHOLESTEROL LOVASTATIN 66050512135 Active Mariaa Whitman FOUNDRY LABORER COREROOM Active RANITIDINE HCL 150 MG CAPS 1 PO Q 12 HRS RANITIDINE HCL 97651791000 Active Mariaa Whitman FOUNDRY LABORER COREROOM Active ALENDRONATE SODIUM 70 MG TABS TAKE 1 TAB ONCE A WEEK ALENDRONATE SODIUM 70 MG TABS 869586 ALENDRONATE SODIUM Inactive ADULT ASPIRIN EC LOW STRENGTH 81 MG TBEC TAKE 1 TAB DAILY ADULT ASPIRIN EC LOW STRENGTH 81 MG TBEC 916417 ASPIRIN Inactive AMOXICILLIN 500 MG CAP 1 tab by mouth 3 times daily AMOXICILLIN 500 MG CAP 501738 AMOXICILLIN Inactive BACTRIM DS 800-160 MG TABS 1 pill by mouth twice daily, for UTI BACTRIM DS 800-160 MG TABS 838762 SULFAMETHOXAZOLE-TRIMETHOPRIM Inactive Advance Directives Directive Description Start [...] 1.41 ng/dL 0.76-1.46 cholesterol, serum 166 mg/dL 774-046 9056/04/20 triglyceride, serum, fasting 68 mg/dL 30-200 HDL cholesterol, serum 88 mg/dL 32-96 LDL cholesterol, serum 64 mg/dL 0-130 sodium, serum 132 mmol/L 983-720 0768/04/20 carbon dioxide, venous blood 31.3 mmol/L 21.0-32.0 [...] Negative Encounters Code Encounter Date Provider Facility CPT-48634 Level 4 Est. Patient 15:07:54 CDT Mariaa Whitman [facility] CPT-72780 Level 3 Est. Patient 20:45:54 LAND APPRAISER Mariaa Whitman [facility] CPT-96794 Level 3 Est. Patient 12:16:16 CDT Ana Cristina Vallejo MD [facility] CPT-01995 Level 4 Est. Patient 12:49:21 CDT Ana Cristina Vallejo MD [facility] CPT-79692 Level 4 Est. Patient 23:02:25 CDT Ana Cristina Vallejo MD [facility] CPT-18929 Level 4 Est. Patient 19:26:33 LAND APPRAISER Ana Cristina Vallejo MD [facility] CPT-50574 Level 4 Est. Patient 11:28:14 CDT Ana Cristina Vallejo MD [facility] CPT-73924 Level 4 Est. Patient 15:35:46 LAND APPRAISER Ana Cristina Vallejo MD [facility] CPT-25535 Level 3 Est. Patient 21:06:39 LAND APPRAISER Alden Kim MD [facility] CPT-46774 Level 4 Est. Patient 15:30:54 LAND APPRAISER Ana Cristina Vallejo MD [facility] Procedures Code Procedure Name Date Entry Date Standard Description CPT-41619 Urine Culture - LAB USE ONLY 16:56:33 CDT CPT-TCMM Transitional Care Mgmt-Moderate 18:08:16 CDT CPT-98980 Bone Density 09:14:12 CDT CPT-000 Give Appropriate Flu Vaccine 14:51:52 CDT CPT-08971 Fluzone High Dose (>=65 yrs.) 15:19:23 CDT CPT-00494 Immunization Single Admin 15:19:23 CDT CPT-85523 Prevnar 13 15:40:03 CDT CPT-58800 Administration single or combination vaccine inc oral 15 :40:03 CDT CPT-54011 Prevnar 13 13:55:07 CDT CPT-G0008 Administration of Influenza Virus Vaccine 10:49:51 CDT CPT-86303 Fluzone High-Dose Intramuscular Suspension 10:49:51 CDT CPT-63294 Knee 3V 13:31:37 CDT CPT-41972 Bone Density 09:07:05 LAND APPRAISER CPT-50152 Nail Avulsion 09:46:05 CDT CPT-92413 Administration single or combination vaccine inc oral 16 :11:54 CDT CPT-31005 Influenza High Dose age 65+ 16:11:54 CDT CPT-21357 Administration single or combination vaccine inc oral 10 :53:15 CDT CPT-59030 Influenza High Dose age 65+ 10:53:15 CDT CPT-43683 Bone Density 14:50:58 LAND APPRAISER CPT-43553 Administration single or combination vaccine inc oral 15 :41:20 LAND APPRAISER CPT-75237 Zoster Vaccine (Zostavax) 15:41:20 LAND APPRAISER CPT-39636 Spec Collection and Handling Fee 11:18:25 LAND APPRAISER CPT-17024 Administration single or combination vaccine inc oral 11 :14:20 CDT CPT-03455 Influenza High Dose age 65+ 11:14:20 CDT
--- OUTSIDE RECORDS SUMMARY | 2017-07-18 09:19 | XMS REPORT | Clinical Summary ---
Author Author Admin, DANDRE Organization [facility] Address Unknown Phone Unavailable Allergies, Adverse Reactions, Alerts Allergy Name Reaction Description Start Date Severity Status Provider NKDA Critical Active Mariaa Whitman AMBULANCE OFFICER Conditions or Problems Problem Name Problem Code Onset Date Status Entry Date Provider Comment Standard Description Annotate ROUTINE GYNECOLOGICAL EXAMINATION V72.31 Resolved Ana Cristina Vallejo MD PhD Routine gynecological examination MENOPAUSE 627.2 Ruled out Ana Cristina Vallejo MD PhD Symptomatic menopausal or female climacteric states MENOPAUSE 627.2 Active [facility] Symptomatic menopausal or female climacteric states [...] MD Dysuria Forgetfulness 780.99 Active Radha Jones AMBULANCE OFFICER Other general symptoms Unsteady gait 781.2 Active Radha Jones APRN Abnormality of gait Personal history of fall V15.88 Active Radha Jones APRN Personal history of fall BMI 29-29.9 adult V85.25 Active aJlil Hayes MD Body Mass Index 29.0-29.9, adult [...] 1 daily, for vitamin D deficiency CHOLECALCIFEROL 31950762761 No Longer Active Radha Jones APRN Active CIPRO 250 MG ORAL TABLET 1 tab BID for 7 days CIPROFLOXACIN HCL 23099235835 No Longer Active Radha Jones APRN Active VITAMIN D3 2000 UNIT ORAL CAPSULE 1 capsule po daily CHOLECALCIFEROL 44573266718 Active Aneta Tavarezum STREET INSPECTOR Active EQL ONE DAILY WOMENS ORAL TABLET 1 po daily MULTIPLE VITAMINS- CALCIUM 61237494371 Active Aneta D Leo STREET INSPECTOR Active MACROBID 100 MG ORAL CAPSULE 1 tab BID for 5 days NITROFURANTOIN MONOHYD MACRO 68563784913 No Longer Active Deepti Junior LPN Active HYDROCHLOROTHIAZIDE 12.5 MG ORAL CAPSULE 1 pill by mouth daily HYDROCHLOROTHIAZIDE 71583281755 Active Jalil Hayes MD Active RANITIDINE HCL 150 MG ORAL CAPSULE once nightly RANITIDINE HCL 48582968411 Active Jalil Hayes MD Active BENAZEPRIL HCL 40 MG ORAL TABLET 1 daily for blood pressure BENAZEPRIL HCL 12150267474 Active Jalil Hayes MD Active HYDROCHLOROTHIAZIDE 12.5 MG ORAL CAPSULE 1 pill by mouth daily, for blood pressure HYDROCHLOROTHIAZIDE 02805323532 No Longer Active Jalil Hayes MD Active AUGMENTIN 875-125 MG ORAL TABLET 1 po BID x 7 days AMOXICILLIN-POT CLAVULANATE 22481847984 No Longer Active Jalil Hayes MD Active OMEPRAZOLE 40 MG ORAL CAPSULE DELAYED RELEASE 1 po q a.m. OMEPRAZOLE 03935959306 Active HEDY Esquivel Active MIRALAX ORAL PACKET Takes daily prn POLYETHYLENE GLYCOL 3350 66794798410 No Longer Active Peggy Pardo LPN Active FLONASE ALLERGY RELIEF 50 MCG/ACT NASAL SUSPENSION One spray each nostril daily for allergies FLUTICASONE PROPIONATE 07290347186 No Longer Active Peggy Pardo, STREET INSPECTOR Active BENADRYL ALLERGY 25 MG ORAL TABLET NEEDED DIPHENHYDRAMINE HCL 47124187629 No Longer Active Peggy Pardo, STREET INSPECTOR Active ADVIL 200 MG ORAL TABLET TAKE NEEDED IBUPROFEN 52197780897 No Longer Active Peggy Pardo, STREET INSPECTOR Active COLACE 100 MG ORAL CAPSULE 1 po BID PRN Constipation DOCUSATE SODIUM 36133601864 No Longer Active Deepti Hamlinl STREET INSPECTOR Active ALPRAZOLAM 0.25 MG ORAL TABLET 1/2-1 tablet by mouth twice a day as needed for stress ALPRAZOLAM 69498702807 No Longer Active Deepti Junior STREET INSPECTOR Active ALENDRONATE SODIUM 70 MG ORAL TABLET 1 pill by mouth weekly for osteoporosis ALENDRONATE SODIUM 12606264508 Active Mariaadomenico Whitman APRN Active E-1000 1000 UNIT ORAL CAPSULE Take one by mouth daily VITAMIN E 53368109940 Active Aneta Bailey STREET INSPECTOR Active OSCAL 500/200 D-3 500-200 MG-UNIT ORAL TABLET Take one by mouth 3 times daily , morning, afternoon and evening.] CALCIUM CARBONATE-VITAMIN D 34243539819 Active Aneta Tavarezum STREET INSPECTOR Active ASPIRIN 81 MG ORAL TABLET CHEWABLE 1 tablet by mouth daily ASPIRIN 98611101542 Active Aneta Tavarezum STREET INSPECTOR Active ADULT ASPIRIN EC LOW STRENGTH 81 MG ORAL TABLET DELAYED RELEASE TAKE 1 TAB DAILY ASPIRIN 94785417143 No Longer Active Mariaa Antonette AMBULANCE OFFICER Active ALENDRONATE SODIUM 70 MG ORAL TABLET TAKE 1 TAB ONCE A WEEK 01/20 ALENDRONATE SODIUM 30143281172 No Longer Active Mariaa Lauxuanum AMBULANCE OFFICER Active CETIRIZINE HCL 10 MG ORAL TABLET 1 po qd PRN Allergies CETIRIZINE HCL 66704337105 Active EHDY Esquivel Active BACTRIM DS 800-160 MG ORAL TABLET 1 pill by mouth twice daily, for UTI 01/29 SULFAMETHOXAZOLE-TRIMETHOPRIM 57573897580 No Longer Active Ana Cristina Vallejo MD PhD Active CARVEDILOL 25 MG ORAL TABLET 1 pill by mouth twice daily for blood pressure CARVEDILOL 25633535866 Active Aneta Bailey LPN Active SYNTHROID 88 MCG ORAL TABLET 1 tablet by mouth daily for thyroid LEVOTHYROXINE SODIUM 05359891490 Active HEDY Esquivel Active AMOXICILLIN 500 MG ORAL CAPSULE 1 tab by mouth 3 times daily 2011 AMOXICILLIN 59413618873 No Longer Active Alden Kim MD Active CALCIUM 500 MG ORAL TABLET TAKE 3 TABS DAILY CALCIUM 44895793377 No Longer Active Mariaa Yokum PARISH Active MULTIVITAMINS TABS TAKE 1 TAB DAILY MULTIPLE VITAMIN No Longer Active Aneta Tavarezum YULIET Active TYLENOL 325 MG ORAL TABLET NEEDED ACETAMINOPHEN 16010760951 Active Aneta Tavarezum STREET INSPECTOR Active GLUCOSAMINE-CHONDROITIN 500-400 MG ORAL TABLET TAKE 1 TAB DAILY GLUCOSAMINE-CHONDROITIN 54550683788 Active Aneta Bailey LPN Active NORVASC 10 MG ORAL TABLET TAKE 1 TAB DAILY AMLODIPINE BESYLATE 61422303020 Active Aneta Bailey LPN Active LOVASTATIN 20 MG ORAL TABLET 1 PO Q HS FOR CHOLESTEROL LOVASTATIN 84749602780 Active HEDY Esquivel Active ALENDRONATE SODIUM 70 MG ORAL TABLET TAKE 1 TAB ONCE A WEEK 01/20 ALENDRONATE SODIUM 70 MG ORAL TABLET 393876 ALENDRONATE SODIUM Inactive ADULT ASPIRIN EC LOW STRENGTH 81 MG ORAL TABLET DELAYED RELEASE TAKE 1 TAB DAILY ADULT ASPIRIN EC LOW STRENGTH 81 MG ORAL TABLET DELAYED RELEASE 178580 ASPIRIN Inactive ALPRAZOLAM 0.25 MG ORAL TABLET 1/2-1 tablet by mouth twice a day as needed for stress ALPRAZOLAM 0.25 MG ORAL TABLET 652867 ALPRAZOLAM Inactive COLACE 100 MG ORAL CAPSULE 1 po BID PRN Constipation COLACE 100 MG ORAL CAPSULE 6174137 DOCUSATE SODIUM Inactive ADVIL 200 MG ORAL TABLET TAKE NEEDED ADVIL 200 MG ORAL TABLET 970896 IBUPROFEN Inactive BENADRYL ALLERGY 25 MG ORAL TABLET NEEDED BENADRYL ALLERGY 25 MG ORAL TABLET 6553800 DIPHENHYDRAMINE HCL Inactive FLONASE ALLERGY RELIEF 50 MCG/ACT NASAL SUSPENSION One spray each nostril daily for allergies FLONASE ALLERGY RELIEF 50 MCG/ACT NASAL SUSPENSION 5990227 FLUTICASONE PROPIONATE Inactive MIRALAX ORAL PACKET Takes daily prn MIRALAX ORAL PACKET 086290 POLYETHYLENE GLYCOL 3350 Inactive AUGMENTIN 875-125 MG ORAL TABLET 1 po BID x 7 days AUGMENTIN 875-125 MG ORAL TABLET 556337 AMOXICILLIN-POT CLAVULANATE Inactive HYDROCHLOROTHIAZIDE 12.5 MG ORAL CAPSULE 1 pill by mouth daily, for blood pressure HYDROCHLOROTHIAZIDE 12.5 MG ORAL CAPSULE 028156 HYDROCHLOROTHIAZIDE Inactive CIPRO 250 MG ORAL TABLET 1 tab BID for 7 days CIPRO 250 MG ORAL TABLET 599038 CIPROFLOXACIN HCL Inactive VITAMIN D3 2000 UNIT ORAL TABLET 1 daily, for vitamin D deficiency VITAMIN D3 2000 UNIT ORAL TABLET CHOLECALCIFEROL Inactive AMOXICILLIN 500 MG ORAL CAPSULE 1 tab by mouth 3 times daily 2011 AMOXICILLIN 500 MG ORAL CAPSULE 441260 AMOXICILLIN Inactive BACTRIM DS 800-160 MG ORAL TABLET 1 pill by mouth twice daily, for UTI 01/29 BACTRIM DS 800-160 MG ORAL TABLET 063613 SULFAMETHOXAZOLE- TRIMETHOPRIM Inactive MACROBID 100 MG ORAL CAPSULE 1 tab BID for 5 days MACROBID 100 MG ORAL CAPSULE 1028670 NITROFURANTOIN MONOHYD MACRO Inactive Advance Directives Directive [...] Panel - Chemistry sodium, serum 132 mmol/L 075-721 6354/08/09 potassium, serum 4.2 mmol/L 3.5-5.2 chloride, serum 99 mmol/L 98-107 carbon dioxide, venous blood 24.7 mmol/L 21.0-32.0 blood glucose 119 mg/dL 65-110 calcium, serum 8.5 mg/dL 8.5-10.1 urea nitrogen, blood 14 mg/dL 7-18 creatinine, serum 1.16 mg/dL 0.60-1.30 Lab Report: CBC-QUEST, COMPREHENSIVE METABOLIC PANEL, LIPID PANEL, Micro ... - Chemistry cholesterol, serum 162 mg/dL 412-615 0709/05/01 HDL cholesterol, serum 68 mg/dL > OR=46 [...] % 11.0-15.0 platelet count 297 THOUSAND/UL 10*3/mm3 490-098 0813/05/01 mean platelet volume 8.9 fL 7.5-12.5 Lab Report: CBC-QUEST, COMPREHENSIVE METABOLIC PANEL, LIPID PANEL, Micro ... - Urinalysis microalbumin/total urine volume <0.2 mg/dL mg/L microalbumin/creatinine ratio, urine NOTE mcg/mg creat mg/L <30 Lab Report: Erythrocyte Sed Rate, Thyroid Stimulating Hormone (L), Basic ... - Chemistry TSH 1.13 m[iU]/mL 0.36-3.74 sodium, serum 139 mmol/L 850-565 1639/01/10 potassium, serum 3.8 mmol/L 3.5-5.2 chloride, serum [...] 5.0-8.5 Encounters Code Encounter Date Provider Facility [facility]-[id number] Level 4 Est. Patient 12:35:27 MANUFACTURING PLANT CONTROLLER Jalil Hayes MD [facility]-88390 Level 3 Est. Patient 13:55:49 CDT Jalil Hayes MD [facility]17122 Level 3 Est. Patient 14:38:15 CDT Jalil Hayes MD [facility]25761 Level 4 Est. Patient 14:40:54 CDT Bee Rosas [facility]-62483 Level 4 Est. Patient 10:31:15 CDT Jalil Hayes MD [facility]77514 Level 4 Est. Patient 15:07:54 CDT Mariaa Whitman [facility] [place] Level 3 Est. Patient 20:45:54 MANUFACTURING PLANT CONTROLLER Mariaa Whitman [facility]-96982 Level 3 Est. Patient 12:16:16 CDT Ana Cristina Vallejo MD [facility]28860 Level 4 Est. Patient 12:49:21 CDT Ana Cristina Vallejo MD [facility]35216 Level 4 Est. Patient 23:02:25 CDT Ana Cristina Vallejo MD [facility]92476 Level 4 Est. Patient 19:26:33 MANUFACTURING PLANT CONTROLLER Ana Cristina Vallejo MD [facility]301 Level 4 Est. Patient 11:28:14 CDT Ana Cristina Vallejo MD [facility]75144 Level 4 Est. Patient 15:35:46 MANUFACTURING PLANT CONTROLLER Ana Cristina Vallejo MD PhD [facility] CPT-59840 Level 3 Est. Patient 21:06:39 MANUFACTURING PLANT CONTROLLER Alden Kim MD [facility] CPT-65007 Level 4 Est. Patient 15:30:54 MANUFACTURING PLANT CONTROLLER Ana Cristina Vallejo MD PhD [facility] Procedures Code Procedure Name Date Entry Date Standard Description CPT-G0439 Subsequent Annual Wellness Exam 11:53:01 MANUFACTURING PLANT CONTROLLER CPT-73997 First Vx - Ix admin for Medicare patients 13:35:01 CDT CPT-75889 Fluzone High-Dose Intramuscular Suspension 13:35:01 CDT CPT-TCMM Transitional Care Mgmt-Moderate 14:41:55 CDT CPT-45342 EKG Trac and Interp - XRAY USE ONLY 10:35:11 CDT 09/11 CPT-12876 Chest 2V Frontal and Lat - XRAY USE ONLY 10:35:11 CDT CPT-G0438 Initial Annual Wellness Exam 14:54:07 CDT CPT-G0009 Administration of Pneumococcal Vaccine 14:44:24 CDT CPT-03403 Pneumovax 23 Injection Injectable 25 MCG/0.5ML 14:44:24 CDT CPT-46744 First Vx - Ix admin for Medicare patients 14:44:24 CDT CPT-03134 Fluzone High-Dose Intramuscular Suspension 14:44:20 CDT CPT-02004 BMP - LAB USE ONLY 12:38:06 CDT CPT-16337 Urine Culture - LAB USE ONLY 16:56:33 CDT CPT-TCMM Transitional Care Mgmt-Moderate 18:08:16 CDT CPT-92217 Bone Density 09:14:12 CDT CPT-000 Give Appropriate Flu Vaccine 14:51:52 CDT CPT-87735 Fluzone High Dose (>=65 yrs.) 15:19:23 CDT CPT-68802 Immunization Single Admin 15:19:23 CDT CPT-36963 Prevnar 13 15:40:03 CDT CPT-24916 Administration single or combination vaccine inc oral 15 :40:03 CDT CPT-97032 Prevnar 13 13:55:07 CDT CPT-G0008 Administration of Influenza Virus Vaccine 10:49:51 CDT CPT-20498 Fluzone High-Dose Intramuscular Suspension 10:49:51 CDT CPT-34796 Knee 3V 13:31:37 CDT CPT-14137 Bone Density 09:07:05 MANUFACTURING PLANT CONTROLLER CPT-98870 Nail Avulsion 09:46:05 CDT CPT-40990 Administration single or combination vaccine inc oral 16 :11:54 CDT CPT-83208 Influenza High Dose age 65+ 16:11:54 CDT CPT-03921 Administration single or combination vaccine inc oral 10 :53:15 CDT CPT-89637 Influenza High Dose age 65+ 10:53:15 CDT CPT-86653 Bone Density 14:50:58 MANUFACTURING PLANT CONTROLLER CPT-98068 Administration single or combination vaccine inc oral 15 :41:20 MANUFACTURING PLANT CONTROLLER CPT-80478 Zoster Vaccine (Zostavax) 15:41:20 MANUFACTURING PLANT CONTROLLER CPT-27874 Spec Collection and Handling Fee 11:18:25 MANUFACTURING PLANT CONTROLLER CPT-21764 Administration single or combination vaccine inc oral 11 :14:20 CDT CPT-70667 Influenza High Dose age 65+ 11:14:20 CDT
--- OUTSIDE RECORDS SUMMARY | 2017-07-18 09:20 | XMS REPORT | Clinical Summary ---
Author Author Admin, DANDRE Organization [facility] [place] Address Unknown Phone Unavailable Allergies, Adverse Reactions, Alerts Allergy Name Reaction Description Start Date Severity Status Provider NKDA Critical Active Mariaa Whitman PLANER MILL GRADER Conditions or Problems Problem Name Problem Code Onset Date Status Entry Date Provider Comment Standard Description Annotate ROUTINE GYNECOLOGICAL EXAMINATION V72.31 Resolved Ana Cristina Vallejo MD PhD Routine gynecological examination MENOPAUSE 627.2 Ruled out Ana Cristina Vallejo MD PhD Symptomatic menopausal or female climacteric states MENOPAUSE 627.2 Active Brianda Reis [facility] Symptomatic menopausal or female climacteric states DIVERTICULOSIS, [...] ICD-703.0 Inactive Ana Cristina Vallejo MD PhD Urinary bladder pain ICD-788.99 Inactive Jalil Hayes MD UTI ICD-599.0 Inactive Jalil Hayes MD HEALTH SCREENING ICD-V70.0 Inactive Ana Cristina Vallejo MD PhD Sciatica ICD-724.3 Inactive Jalil Hayes MD 2016 Medication List Medication Instructions Start Date Stop Date Generic Name ND Status Provider Patient Instruction COLACE 100 MG CAP 1 po BID PRN Constipation DOCUSATE SODIUM 95083962353 No Longer Active Deepti Madl CABINET ABRASIVE SANDBLASTER Active ALPRAZOLAM 0.25 MG TAB 1/2-1 tablet by mouth twice a day as needed for stress ALPRAZOLAM 50539093025 No Longer Active Deepti Madl CABINET ABRASIVE SANDBLASTER Active MIRALAX ORAL PACK Takes daily prn POLYETHYLENE GLYCOL 3350 50099134766 Active Mariaa Whitman APRN Active ALENDRONATE SODIUM 70 MG TABS 1 pill by mouth weekly for osteoporosis ALENDRONATE SODIUM 31962427732 Active Brianda Reis [facility] Active E-1000 1000 UNIT ORAL CAPS Take one by mouth daily VITAMIN E 45222901498 Active Brianda Reis [facility] Active OSCAL 500/200 D-3 500-200 MG-UNIT ORAL TABS Take one by mouth 3 times daily, morning, afternoon and evening.] CALCIUM CARBONATE-VITAMIN D 00969487004 Active Brianda [facility] Active ASPIRIN 81 MG CHEW TAB 1 tablet by mouth daily ASPIRIN 80870672355 Active Brianda [facility] Active ADULT ASPIRIN EC LOW STRENGTH 81 MG TBEC TAKE 1 TAB DAILY ASPIRIN 69391902093 No Longer Active Mariaa Whitman APRN Active ALENDRONATE SODIUM 70 MG TABS TAKE 1 TAB ONCE A WEEK ALENDRONATE SODIUM 65628873257 No Longer Active Mariaa Whitman PLANER MILL GRADER Active FLONASE ALLERGY RELIEF 50 MCG/ACT NASAL SUSP One spray each nostril daily for allergies FLUTICASONE PROPIONATE 25593161364 Active Mariaa Whitman PLANER MILL GRADER Active CETIRIZINE HCL 10 MG ORAL TABS 1 po qd PRN Allergies CETIRIZINE HCL 48997390353 Active Mariaa Whitman APRN Active BACTRIM DS 800-160 MG TABS 1 pill by mouth twice daily, for UTI SULFAMETHOXAZOLE-TRIMETHOPRIM 77953852972 No Longer Active Ana Cristina Vallejo MD PhD Active HYDROCHLOROTHIAZIDE 12.5 MG CAPS 1 pill by mouth daily, for blood pressure HYDROCHLOROTHIAZIDE 70658940025 Active Mariaa Whitman APRN Active CARVEDILOL 25 MG TABS 1 pill by mouth twice daily for blood pressure CARVEDILOL 25534136286 Active Mariaa Whitman APRN Active SYNTHROID 0.088 MG TAB 1 tablet by mouth daily for thyroid LEVOTHYROXINE SODIUM 49051807553 Active HEDY Esquivel Active AMOXICILLIN 500 MG CAP 1 tab by mouth 3 times daily AMOXICILLIN 61776476780 No Longer Active Alden Kim MD Active [facility] VITAMIN D3 1000 UNIT CAPS TAKE 2 CAP DAILY CHOLECALCIFEROL Active Ana Cristina Vallejo MD PhD Active CALCIUM 500 MG TABS TAKE 3 TABS DAILY CALCIUM 99372507786 No Longer Active Mariaa Whitman APRN Active MULTIVITAMINS TABS TAKE 1 TAB DAILY MULTIPLE VITAMIN Active Aneta Tavarezum CABINET ABRASIVE SANDBLASTER Active BENADRYL ALLERGY 25 MG TABS NEEDED DIPHENHYDRAMINE HCL 09295802953 Active Aneta Singh Leo CABINET ABRASIVE SANDBLASTER Active TYLENOL 325 MG TABS NEEDED ACETAMINOPHEN 62215427669 Active Aneta Tavarezum CABINET ABRASIVE SANDBLASTER Active ADVIL 200 MG TABS TAKE NEEDED IBUPROFEN 36973479287 Active Aneta Tavarezum CABINET ABRASIVE SANDBLASTER Active GLUCOSAMINE-CHONDROITIN 500-400 MG TABS TAKE 1 TAB DAILY GLUCOSAMINE-CHONDROITIN 62794681309 Active Mariaa Whitman APRN Active NORVASC 10 MG TABS TAKE 1 TAB DAILY AMLODIPINE BESYLATE 51935779565 Active Mariaa Whitman APRN Active BENAZEPRIL HCL 40 MG TABS 1 PO BID BENAZEPRIL HCL 74261199087 Active HEDY Esquivel Active LOVASTATIN 20 MG TABS 1 PO Q HS FOR CHOLESTEROL LOVASTATIN 89569884327 Active HEDY Esquivel Active RANITIDINE HCL 150 MG CAPS 1 PO Q 12 HRS RANITIDINE HCL 45048506768 Active Mariaa Whitman PLANER MILL GRADER Active ALENDRONATE SODIUM 70 MG TABS TAKE 1 TAB ONCE A WEEK ALENDRONATE SODIUM 70 MG TABS 455341 ALENDRONATE SODIUM Inactive ADULT ASPIRIN EC LOW STRENGTH 81 MG TBEC TAKE 1 TAB DAILY ADULT ASPIRIN EC LOW STRENGTH 81 MG TBEC 262325 ASPIRIN Inactive ALPRAZOLAM 0.25 MG TAB 1/2-1 tablet by mouth twice a day as needed for stress ALPRAZOLAM 0.25 MG TAB 837808 ALPRAZOLAM Inactive COLACE 100 MG CAP 1 po BID PRN Constipation COLACE 100 MG CAP 6204753 DOCUSATE SODIUM Inactive AMOXICILLIN 500 MG CAP 1 tab by mouth 3 times daily AMOXICILLIN 500 MG CAP 792500 AMOXICILLIN Inactive BACTRIM DS 800-160 MG TABS 1 pill by mouth twice daily, for UTI BACTRIM DS 800-160 MG TABS 151956 SULFAMETHOXAZOLE-TRIMETHOPRIM Inactive Advance Directives Directive Description Start [...] Panel - Chemistry sodium, serum 130 mmol/L 375-899 0957/10/19 urea nitrogen, blood 11 mg/dL 7-18 creatinine, serum 1.12 mg/dL 0.55-1.30 potassium, serum 3.5 mmol/L 3.5-5.2 chloride, serum 92 mmol/L 98-107 carbon dioxide, venous blood 33.6 mmol/L 21.0-32.0 blood glucose 118 mg/dL 65-110 calcium, serum 8.8 mg/dL 8.5-10.1 Lab Report: CBC-QUEST, COMPREHENSIVE METABOLIC PANEL, LIPID PANEL, Micro ... - Chemistry cholesterol, serum 162 mg/dL 804-629 5017/05/01 HDL cholesterol, serum 68 mg/dL > OR=46 [...] % 11.0-15.0 platelet count 297 THOUSAND/UL 10*3/mm3 916-647 7865/05/01 mean platelet volume 8.9 fL 7.5-12.5 Lab [...] Negative Encounters Code Encounter Date Provider Facility CPT-18974 Level 4 Est. Patient 10:31:15 CDT Jalil Hayes MD [facility]-06974 Level 4 Est. Patient 15:07:54 CDT Mariaa Whitman [facility]-30048 Level 3 Est. Patient 20:45:54 TAPE SEWING MACHINE OPERATOR Mariaa Whitman [facility] CPT-26359 Level 3 Est. Patient 12:16:16 CDT Ana Cristina Vallejo MD [facility]93026 Level 4 Est. Patient 12:49:21 CDT Ana Cristina Vallejo MD [facility] CPT-12625 Level 4 Est. Patient 23:02:25 CDT Ana Cristina Vallejo MD [facility] CPT-96231 Level 4 Est. Patient 19:26:33 TAPE SEWING MACHINE OPERATOR Ana Cristina Vallejo MD [facility]-61754 Level 4 Est. Patient 11:28:14 CDT Ana Cristina Vallejo MD [facility]23485 Level 4 Est. Patient 15:35:46 TAPE SEWING MACHINE OPERATOR Ana Cristina Vallejo MD [facility]77827 Level 3 Est. Patient 21:06:39 TAPE SEWING MACHINE OPERATOR Alden Kim MD [facility]-36531 Level 4 Est. Patient 15:30:54 TAPE SEWING MACHINE OPERATOR Ana Cristina Vallejo MD PhD [facility] Procedures Code Procedure Name Date Entry Date Standard Description CPT-91757 EKG Trac and Interp - XRAY USE ONLY 10:35:11 CDT 09/11 CPT-23613 Chest 2V Frontal and Lat - XRAY USE ONLY 10:35:11 CDT CPT-G0438 Initial Annual Wellness Exam 14:54:07 CDT CPT-G0009 Administration of Pneumococcal Vaccine 14:44:24 CDT CPT-91898 Pneumovax 23 Injection Injectable 25 MCG/0.5ML 14:44:24 CDT CPT-76175 First Vx - Ix admin for Medicare patients 14:44:24 CDT CPT-21667 Fluzone High-Dose Intramuscular Suspension 14:44:20 CDT CPT-41208 BMP - LAB USE ONLY 12:38:06 CDT CPT-34360 Urine Culture - LAB USE ONLY 16:56:33 CDT CPT-TCMM Transitional Care Mgmt-Moderate 18:08:16 CDT CPT-42633 Bone Density 09:14:12 CDT CPT-000 Give Appropriate Flu Vaccine 14:51:52 CDT CPT-41756 Fluzone High Dose (>=65 yrs.) 15:19:23 CDT CPT-62210 Immunization Single Admin 15:19:23 CDT CPT-28018 Prevnar 13 15:40:03 CDT CPT-94613 Administration single or combination vaccine inc oral 15 :40:03 CDT CPT-19619 Prevnar 13 13:55:07 CDT CPT-G0008 Administration of Influenza Virus Vaccine 10:49:51 CDT CPT-75227 Fluzone High-Dose Intramuscular Suspension 10:49:51 CDT CPT-82282 Knee 3V 13:31:37 CDT CPT-14751 Bone Density 09:07:05 TAPE SEWING MACHINE OPERATOR CPT-27691 Nail Avulsion 09:46:05 CDT CPT-13407 Administration single or combination vaccine inc oral 16 :11:54 CDT CPT-43083 Influenza High Dose age 65+ 16:11:54 CDT CPT-26009 Administration single or combination vaccine inc oral 10 :53:15 CDT CPT-06089 Influenza High Dose age 65+ 10:53:15 CDT CPT-85607 Bone Density 14:50:58 TAPE SEWING MACHINE OPERATOR CPT-16367 Administration single or combination vaccine inc oral 15 :41:20 TAPE SEWING MACHINE OPERATOR CPT-80509 Zoster Vaccine (Zostavax) 15:41:20 TAPE SEWING MACHINE OPERATOR CPT-59075 Spec Collection and Handling Fee 11:18:25 TAPE SEWING MACHINE OPERATOR CPT-67963 Administration single or combination vaccine inc oral 11 :14:20 CDT CPT-74983 Influenza High Dose age 65+ 11:14:20 CDT
--- OUTSIDE RECORDS SUMMARY | 2017-07-18 09:21 | XMS REPORT | Clinical Summary ---
Author Author Admin, DANDRE Organization [facility] [employer] Address Unknown Phone Unavailable Allergies, Adverse Reactions, Alerts Allergy Name Reaction Description Start Date Severity Status Provider NKDA Critical Active Mariaa Whitman SPECIAL LIBRARIAN Conditions or Problems Problem Name Problem [...] ORAL CAPSULE 1 capsule po daily CHOLECALCIFEROL 43976296440 Active HEDY Esquivel Active VITAMIN D3 2000 UNIT TABS 1 daily, for vitamin D deficiency CHOLECALCIFEROL 58867835973 Active HEDY Esquivel Active EQL ONE DAILY WOMENS ORAL TABLET 1 po daily MULTIPLE VITAMINS- CALCIUM 98001134217 Active HEDY Esquivel Active CIPRO 250 MG ORAL TABS 1 tab BID for 7 days CIPROFLOXACIN HCL 23779476872 Active Deepti Junior LPN Active MACROBID 100 MG ORAL CAPS 1 tab BID for 5 days NITROFURANTOIN MONOHYD MACRO 77423394443 No Longer Active Deepti Junior LPN Active HYDROCHLOROTHIAZIDE 12.5 MG CAPS 1 pill by mouth daily HYDROCHLOROTHIAZIDE 63109902985 Active Jalil Hayes MD Active RANITIDINE HCL 150 MG CAPS once nightly RANITIDINE HCL 07361917961 Active Jalil Hayes MD Active BENAZEPRIL HCL 40 MG TABS 1 daily for blood pressure BENAZEPRIL HCL 79788566616 Active Jalil Hayes MD Active HYDROCHLOROTHIAZIDE 12.5 MG CAPS 1 pill by mouth daily, for blood pressure HYDROCHLOROTHIAZIDE 44036219119 No Longer Active Jalil Hayes MD Active AUGMENTIN 875-125 MG TAB 1 po BID x 7 days AMOXICILLIN-POT CLAVULANATE 31242518562 No Longer Active Jalil Hayes MD Active OMEPRAZOLE 40 MG CPDR 1 po q a.m. OMEPRAZOLE 09573711945 Active Peggy Pardo LPN Active MIRALAX ORAL PACK Takes daily prn POLYETHYLENE GLYCOL 3350 07909761757 No Longer Active Peggy Pardo LPN Active FLONASE ALLERGY RELIEF 50 MCG/ACT NASAL SUSP One spray each nostril daily for allergies FLUTICASONE PROPIONATE 83626131986 No Longer Active Peggy Pardo LPN Active BENADRYL ALLERGY 25 MG TABS NEEDED DIPHENHYDRAMINE HCL 40379419900 No Longer Active Peggy Pardo LPN Active ADVIL 200 MG TABS TAKE NEEDED IBUPROFEN 23310966305 No Longer Active Peggy Pardo LPN Active COLACE 100 MG CAP 1 po BID PRN Constipation DOCUSATE SODIUM 52096408617 No Longer Active Deepti Junior LPN Active ALPRAZOLAM 0.25 MG TAB 1/2-1 tablet by mouth twice a day as needed for stress ALPRAZOLAM 52688477020 No Longer Active Deepti Junior LPN Active ALENDRONATE SODIUM 70 MG TABS 1 pill by mouth weekly for osteoporosis ALENDRONATE SODIUM 46114766263 Active Mariaa Whitman APRN Active E-1000 1000 UNIT ORAL CAPS Take one by mouth daily VITAMIN E 10170473900 Active HEDY Esquivel Active OSCAL 500/200 D-3 500-200 MG-UNIT ORAL TABS Take one by mouth 3 times daily, morning, afternoon and evening.] CALCIUM CARBONATE-VITAMIN D 43228280607 Active HEDY Esquivel Active ASPIRIN 81 MG CHEW TAB 1 tablet by mouth daily ASPIRIN 35682643621 Active HEDY Esquivel Active ADULT ASPIRIN EC LOW STRENGTH 81 MG TBEC TAKE 1 TAB DAILY ASPIRIN 55320025896 No Longer Active Mariaa Whitman APRN Active ALENDRONATE SODIUM 70 MG TABS TAKE 1 TAB ONCE A WEEK ALENDRONATE SODIUM 56021773666 No Longer Active Mariaa Whitman APRN Active CETIRIZINE HCL 10 MG ORAL TABS 1 po qd PRN Allergies CETIRIZINE HCL 59279107347 Active HEDY Esquivel Active BACTRIM DS 800-160 MG TABS 1 pill by mouth twice daily, for UTI SULFAMETHOXAZOLE-TRIMETHOPRIM 89673083929 No Longer Active Ana Cristina Vallejo MD PhD Active CARVEDILOL 25 MG TABS 1 pill by mouth twice daily for blood pressure CARVEDILOL 57743085442 Active Aneta Tavarezum YULIET Active SYNTHROID 0.088 MG TAB 1 tablet by mouth daily for thyroid LEVOTHYROXINE SODIUM 67605277585 Active HEDY Esquivel Active AMOXICILLIN 500 MG CAP 1 tab by mouth 3 times daily AMOXICILLIN 74516005154 No Longer Active Alden Kim MD Active CALCIUM 500 MG TABS TAKE 3 TABS DAILY CALCIUM 37517960310 No Longer Active Mariaa Whitman APRN Active MULTIVITAMINS TABS TAKE 1 TAB DAILY MULTIPLE VITAMIN No Longer Active Aneta Tavarezum CENSUS TAKER Active TYLENOL 325 MG TABS NEEDED ACETAMINOPHEN 84264538565 Active Aneta Tavarezum CENSUS TAKER Active GLUCOSAMINE-CHONDROITIN 500-400 MG TABS TAKE 1 TAB DAILY GLUCOSAMINE-CHONDROITIN 74003678669 Active Aneta Singh Leo CENSUS TAKER Active NORVASC 10 MG TABS TAKE 1 TAB DAILY AMLODIPINE BESYLATE 89425685758 Active Aneta Singh Leo CENSUS TAKER Active LOVASTATIN 20 MG TABS 1 PO Q HS FOR CHOLESTEROL LOVASTATIN 31282807866 Active HEDY Esquivel Active ALENDRONATE SODIUM 70 MG TABS TAKE 1 TAB ONCE A WEEK ALENDRONATE SODIUM 70 MG TABS 111265 ALENDRONATE SODIUM Inactive ADULT ASPIRIN EC LOW STRENGTH 81 MG TBEC TAKE 1 TAB DAILY ADULT ASPIRIN EC LOW STRENGTH 81 MG TBEC 570441 ASPIRIN Inactive ALPRAZOLAM 0.25 MG TAB 1/2-1 tablet by mouth twice a day as needed for stress ALPRAZOLAM 0.25 MG TAB 987244 ALPRAZOLAM Inactive COLACE 100 MG CAP 1 po BID PRN Constipation COLACE 100 MG CAP 5253225 DOCUSATE SODIUM Inactive ADVIL 200 MG TABS TAKE NEEDED ADVIL 200 MG TABS 475028 IBUPROFEN Inactive BENADRYL ALLERGY 25 MG TABS NEEDED BENADRYL ALLERGY 25 MG TABS 2233588 DIPHENHYDRAMINE HCL Inactive FLONASE ALLERGY RELIEF 50 MCG/ACT NASAL SUSP One spray each nostril daily for allergies FLONASE ALLERGY RELIEF 50 MCG/ACT NASAL SUSP 2924385 FLUTICASONE PROPIONATE Inactive MIRALAX ORAL PACK Takes daily prn MIRALAX ORAL PACK 207441 POLYETHYLENE GLYCOL 3350 Inactive AUGMENTIN 875-125 MG TAB 1 po BID x 7 days AUGMENTIN 875-125 MG TAB 951071 AMOXICILLIN-POT CLAVULANATE Inactive HYDROCHLOROTHIAZIDE 12.5 MG CAPS 1 pill by mouth daily, for blood pressure HYDROCHLOROTHIAZIDE 12.5 MG CAPS 718994 HYDROCHLOROTHIAZIDE Inactive AMOXICILLIN 500 MG CAP 1 tab by mouth 3 times daily AMOXICILLIN 500 MG CAP 872439 AMOXICILLIN Inactive BACTRIM DS 800-160 MG TABS 1 pill by mouth twice daily, for UTI BACTRIM DS 800-160 MG TABS 645049 SULFAMETHOXAZOLE-TRIMETHOPRIM Inactive MACROBID 100 MG ORAL CAPS 1 tab BID for 5 days MACROBID 100 MG ORAL CAPS 3284427 NITROFURANTOIN MONOHYD MACRO Inactive Advance Directives Directive [...] Panel - Chemistry sodium, serum 132 mmol/L 664-028 9801/08/09 potassium, serum 4.2 mmol/L 3.5-5.2 chloride, serum 99 mmol/L 98-107 carbon dioxide, venous blood 24.7 mmol/L 21.0-32.0 blood glucose 119 mg/dL 65-110 calcium, serum 8.5 mg/dL 8.5-10.1 urea nitrogen, blood 14 mg/dL 7-18 creatinine, serum 1.16 mg/dL 0.60-1.30 Lab Report: CBC-QUEST, COMPREHENSIVE METABOLIC PANEL, LIPID PANEL, Micro ... - Chemistry cholesterol, serum 162 mg/dL 202-635 8318/05/01 HDL cholesterol, serum 68 mg/dL > OR=46 [...] % 11.0-15.0 platelet count 297 THOUSAND/UL 10*3/mm3 849-961 1590/05/01 mean platelet volume 8.9 fL 7.5-12.5 Lab [...] 5.0-8.5 Encounters Code Encounter Date Provider Facility CPT-79851 Level 3 Est. Patient 13:55:49 CDT Jalil Hayes MD [facility] CPT-75006 Level 3 Est. Patient 14:38:15 CDT Jalil Hayes MD [facility] CPT-58356 Level 4 Est. Patient 14:40:54 CDT Bee Rosas APRN [facility] CPT-92656 Level 4 Est. Patient 10:31:15 CDT Jalil Hayes MD [facility] CPT-11736 Level 4 Est. Patient 15:07:54 CDT Mariaadomenico Whitman [facility] CPT-12483 Level 3 Est. Patient 20:45:54 PHOTOCOPYING MACHINE OPERATOR Mariaa Whitman [facility] CPT-35289 Level 3 Est. Patient 12:16:16 CDT Ana Cristina Vallejo MD [facility] CPT-54035 Level 4 Est. Patient 12:49:21 CDT Ana Cristina Vallejo MD [facility] CPT-18597 Level 4 Est. Patient 23:02:25 CDT Ana Cristina Vallejo MD [facility] CPT-69454 Level 4 Est. Patient 19:26:33 PHOTOCOPYING MACHINE OPERATOR Ana Cristina Vallejo MD [facility] CPT-47679 Level 4 Est. Patient 11:28:14 CDT Ana Cristina Vallejo MD [facility] CPT-24025 Level 4 Est. Patient 15:35:46 PHOTOCOPYING MACHINE OPERATOR Ana Cristina Vallejo MD [facility] CPT-06954 Level 3 Est. Patient 21:06:39 PHOTOCOPYING MACHINE OPERATOR Alden Kim MD [facility] CPT-68963 Level 4 Est. Patient 15:30:54 PHOTOCOPYING MACHINE OPERATOR Ana Cristina Vallejo MD [facility] Procedures Code Procedure Name Date Entry Date Standard Description CPT-18811 First Vx - Ix admin for Medicare patients 13:35:01 CDT CPT-67175 Fluzone High-Dose Intramuscular Suspension 13:35:01 CDT CPT-TCMM Transitional Care Mgmt-Moderate 14:41:55 CDT CPT-54040 EKG Trac and Interp - XRAY USE ONLY 10:35:11 CDT 09/11 CPT-34229 Chest 2V Frontal and Lat - XRAY USE ONLY 10:35:11 CDT CPT-G0438 Initial Annual Wellness Exam 14:54:07 CDT CPT-G0009 Administration of Pneumococcal Vaccine 14:44:24 CDT CPT-35599 Pneumovax 23 Injection Injectable 25 MCG/0.5ML 14:44:24 CDT CPT-88519 First Vx - Ix admin for Medicare patients 14:44:24 CDT CPT-09670 Fluzone High-Dose Intramuscular Suspension 14:44:20 CDT CPT-62946 BMP - LAB USE ONLY 12:38:06 CDT CPT-83255 Urine Culture - LAB USE ONLY 16:56:33 CDT CPT-TCMM Transitional Care Mgmt-Moderate 18:08:16 CDT CPT-55671 Bone Density 09:14:12 CDT CPT-000 Give Appropriate Flu Vaccine 14:51:52 CDT CPT-67569 Fluzone High Dose (>=65 yrs.) 15:19:23 CDT CPT-65788 Immunization Single Admin 15:19:23 CDT CPT-76711 Prevnar 13 15:40:03 CDT CPT-03597 Administration single or combination vaccine inc oral 15 :40:03 CDT CPT-97594 Prevnar 13 13:55:07 CDT CPT-G0008 Administration of Influenza Virus Vaccine 10:49:51 CDT CPT-65260 Fluzone High-Dose Intramuscular Suspension 10:49:51 CDT CPT-76757 Knee 3V 13:31:37 CDT CPT-68638 Bone Density 09:07:05 PHOTOCOPYING MACHINE OPERATOR CPT-69249 Nail Avulsion 09:46:05 CDT CPT-50984 Administration single or combination vaccine inc oral 16 :11:54 CDT CPT-14586 Influenza High Dose age 65+ 16:11:54 CDT CPT-60705 Administration single or combination vaccine inc oral 10 :53:15 CDT CPT-65008 Influenza High Dose age 65+ 10:53:15 CDT CPT-53841 Bone Density 14:50:58 PHOTOCOPYING MACHINE OPERATOR CPT-51070 Administration single or combination vaccine inc oral 15 :41:20 PHOTOCOPYING MACHINE OPERATOR CPT-07147 Zoster Vaccine (Zostavax) 15:41:20 PHOTOCOPYING MACHINE OPERATOR CPT-05696 Spec Collection and Handling Fee 11:18:25 PHOTOCOPYING MACHINE OPERATOR CPT-28886 Administration single or combination vaccine inc oral 11 :14:20 CDT CPT-60719 Influenza High Dose age 65+ 11:14:20 CDT
--- OUTSIDE RECORDS SUMMARY | 2017-07-18 09:22 | XMS REPORT | Clinical Summary ---
Author Author Admin, DANDRE Organization [facility] [employer] Address Unknown Phone Unavailable Allergies, Adverse Reactions, Alerts Allergy Name Reaction Description Start Date Severity Status Provider NKDA Critical Active Mariaa Whitman [facility] [employer] Conditions or Problems Problem Name Problem Code Onset Date Status Entry Date Provider Comment Standard Description Annotate ROUTINE GYNECOLOGICAL EXAMINATION V72.31 Resolved Ana Cristina Vallejo MD PhD Routine gynecological examination MENOPAUSE 627.2 Ruled out Ana Cristina Vallejo MD PhD Symptomatic menopausal or female climacteric states MENOPAUSE 627.2 Active Brianda Reis [facility] Symptomatic menopausal or female climacteric [...] Altered mental status Medication management V68.89 Active Mairaa Whitman APRN Encounters for other specified administrative [...] ORAL CAPSULE 1 capsule po daily CHOLECALCIFEROL 39190577962 Active HEDY Esquivel Active VITAMIN D3 2000 UNIT TABS 1 daily, for vitamin D deficiency CHOLECALCIFEROL 28559025674 Active HEDY Esquivel Active EQL ONE DAILY WOMENS ORAL TABLET 1 po daily MULTIPLE VITAMINS- CALCIUM 23544660806 Active HEDY Esquivel Active CIPRO 250 MG ORAL TABS 1 tab BID for 7 days CIPROFLOXACIN HCL 65242883965 Active Deepti Junior LPN Active MACROBID 100 MG ORAL CAPS 1 tab BID for 5 days NITROFURANTOIN MONOHYD MACRO 47685268458 No Longer Active Deepti Junior LPN Active HYDROCHLOROTHIAZIDE 12.5 MG CAPS 1 pill by mouth daily HYDROCHLOROTHIAZIDE 19474210794 Active Jalil Hayes MD Active RANITIDINE HCL 150 MG CAPS once nightly RANITIDINE HCL 63542620225 Active Jalil Hayes MD Active BENAZEPRIL HCL 40 MG TABS 1 daily for blood pressure BENAZEPRIL HCL 03167051048 Active Jalil Hayes MD Active HYDROCHLOROTHIAZIDE 12.5 MG CAPS 1 pill by mouth daily, for blood pressure HYDROCHLOROTHIAZIDE 04057778461 No Longer Active Jalil Hayes MD Active AUGMENTIN 875-125 MG TAB 1 po BID x 7 days AMOXICILLIN-POT CLAVULANATE 02947118698 No Longer Active Jalil Hayes MD Active OMEPRAZOLE 40 MG CPDR 1 po q a.m. OMEPRAZOLE 83951340967 Active Peggy Pardo LPN Active MIRALAX ORAL PACK Takes daily prn POLYETHYLENE GLYCOL 3350 36160602914 No Longer Active Peggy Pardo LPN Active FLONASE ALLERGY RELIEF 50 MCG/ACT NASAL SUSP One spray each nostril daily for allergies FLUTICASONE PROPIONATE 14497061997 No Longer Active Peggy Pardo LPN Active BENADRYL ALLERGY 25 MG TABS NEEDED DIPHENHYDRAMINE HCL 23438685127 No Longer Active Peggy Pardo LPN Active ADVIL 200 MG TABS TAKE NEEDED IBUPROFEN 30460146003 No Longer Active Peggy Pardo LPN Active COLACE 100 MG CAP 1 po BID PRN Constipation DOCUSATE SODIUM 70345465453 No Longer Active Deepti Junior LPN Active ALPRAZOLAM 0.25 MG TAB 1/2-1 tablet by mouth twice a day as needed for stress ALPRAZOLAM 81601576093 No Longer Active Deepti Junior LPN Active ALENDRONATE SODIUM 70 MG TABS 1 pill by mouth weekly for osteoporosis ALENDRONATE SODIUM 54021898807 Active Mariaa Whitman APRN Active E-1000 1000 UNIT ORAL CAPS Take one by mouth daily VITAMIN E 73545309730 Active HEDY Esquivel Active OSCAL 500/200 D-3 500-200 MG-UNIT ORAL TABS Take one by mouth 3 times daily, morning, afternoon and evening.] CALCIUM CARBONATE-VITAMIN D 75413214322 Active HEDY Esquivel Active ASPIRIN 81 MG CHEW TAB 1 tablet by mouth daily ASPIRIN 20899382205 Active HEDY Esquivel Active ADULT ASPIRIN EC LOW STRENGTH 81 MG TBEC TAKE 1 TAB DAILY ASPIRIN 90906558916 No Longer Active Mariaa Whitman APRN Active ALENDRONATE SODIUM 70 MG TABS TAKE 1 TAB ONCE A WEEK ALENDRONATE SODIUM 10040496824 No Longer Active Mariaa Whitman APRN Active CETIRIZINE HCL 10 MG ORAL TABS 1 po qd PRN Allergies CETIRIZINE HCL 54567047964 Active HEDY Esquivel Active BACTRIM DS 800-160 MG TABS 1 pill by mouth twice daily, for UTI SULFAMETHOXAZOLE-TRIMETHOPRIM 12976019930 No Longer Active Ana Cristina Vallejo MD PhD Active CARVEDILOL 25 MG TABS 1 pill by mouth twice daily for blood pressure CARVEDILOL 09289980723 Active Aneta Tavarezum YULIET Active SYNTHROID 0.088 MG TAB 1 tablet by mouth daily for thyroid LEVOTHYROXINE SODIUM 23596645110 Active HEDY Esquivel Active AMOXICILLIN 500 MG CAP 1 tab by mouth 3 times daily AMOXICILLIN 98247809092 No Longer Active Alden Kim MD Active CALCIUM 500 MG TABS TAKE 3 TABS DAILY CALCIUM 71155748291 No Longer Active Mariaa Whitman APRN Active MULTIVITAMINS TABS TAKE 1 TAB DAILY MULTIPLE VITAMIN No Longer Active Aneta Tavarezum [employer] ADMINISTRATOR Active TYLENOL 325 MG TABS NEEDED ACETAMINOPHEN 63036710872 Active Aneta Tavarezum [employer] ADMINISTRATOR Active GLUCOSAMINE-CHONDROITIN 500-400 MG TABS TAKE 1 TAB DAILY GLUCOSAMINE-CHONDROITIN 54481100162 Active Aneta Singh [facility] ADMINISTRATOR Active NORVASC 10 MG TABS TAKE 1 TAB DAILY AMLODIPINE BESYLATE 08056881427 Active Aneta Singh [facility] ADMINISTRATOR Active LOVASTATIN 20 MG TABS 1 PO Q HS FOR CHOLESTEROL LOVASTATIN 12610303285 Active HEDY Esquivel Active ALENDRONATE SODIUM 70 MG TABS TAKE 1 TAB ONCE A WEEK ALENDRONATE SODIUM 70 MG TABS 351378 ALENDRONATE SODIUM Inactive ADULT ASPIRIN EC LOW STRENGTH 81 MG TBEC TAKE 1 TAB DAILY ADULT ASPIRIN EC LOW STRENGTH 81 MG TBEC 078611 ASPIRIN Inactive ALPRAZOLAM 0.25 MG TAB 1/2-1 tablet by mouth twice a day as needed for stress ALPRAZOLAM 0.25 MG TAB 027392 ALPRAZOLAM Inactive COLACE 100 MG CAP 1 po BID PRN Constipation COLACE 100 MG CAP 6374879 DOCUSATE SODIUM Inactive ADVIL 200 MG TABS TAKE NEEDED ADVIL 200 MG TABS 310532 IBUPROFEN Inactive BENADRYL ALLERGY 25 MG TABS NEEDED BENADRYL ALLERGY 25 MG TABS 1731012 DIPHENHYDRAMINE HCL Inactive FLONASE ALLERGY RELIEF 50 MCG/ACT NASAL SUSP One spray each nostril daily for allergies FLONASE ALLERGY RELIEF 50 MCG/ACT NASAL SUSP 3835558 FLUTICASONE PROPIONATE Inactive MIRALAX ORAL PACK Takes daily prn MIRALAX ORAL PACK 252549 POLYETHYLENE GLYCOL 3350 Inactive AUGMENTIN 875-125 MG TAB 1 po BID x 7 days AUGMENTIN 875-125 MG TAB 201945 AMOXICILLIN-POT CLAVULANATE Inactive HYDROCHLOROTHIAZIDE 12.5 MG CAPS 1 pill by mouth daily, for blood pressure HYDROCHLOROTHIAZIDE 12.5 MG CAPS 174252 HYDROCHLOROTHIAZIDE Inactive AMOXICILLIN 500 MG CAP 1 tab by mouth 3 times daily AMOXICILLIN 500 MG CAP 224098 AMOXICILLIN Inactive BACTRIM DS 800-160 MG TABS 1 pill by mouth twice daily, for UTI BACTRIM DS 800-160 MG TABS 438029 SULFAMETHOXAZOLE-TRIMETHOPRIM Inactive MACROBID 100 MG ORAL CAPS 1 tab BID for 5 days MACROBID 100 MG ORAL CAPS 7003682 NITROFURANTOIN MONOHYD MACRO Inactive Advance Directives Directive [...] Panel - Chemistry sodium, serum 132 mmol/L 501-931 9481/08/09 potassium, serum 4.2 mmol/L 3.5-5.2 chloride, serum 99 mmol/L 98-107 carbon dioxide, venous blood 24.7 mmol/L 21.0-32.0 blood glucose 119 mg/dL 65-110 calcium, serum 8.5 mg/dL 8.5-10.1 urea nitrogen, blood 14 mg/dL 7-18 creatinine, serum 1.16 mg/dL 0.60-1.30 Lab Report: CBC-QUEST, COMPREHENSIVE METABOLIC PANEL, LIPID PANEL, Micro ... - Chemistry cholesterol, serum 162 mg/dL 125-260 0034/05/01 HDL cholesterol, serum 68 mg/dL > OR=46 [...] % 11.0-15.0 platelet count 297 THOUSAND/UL 10*3/mm3 777-117 5591/05/01 mean platelet volume 8.9 fL 7.5-12.5 Lab [...] 5.0-8.5 Encounters Code Encounter Date Provider Facility CPT-93963 Level 3 Est. Patient 13:55:49 CDT Jalil Hayes MD [facility] CPT-30251 Level 3 Est. Patient 14:38:15 CDT Jalil Hayes MD [facility] CPT-58592 Level 4 Est. Patient 14:40:54 CDT Bee Rosas APRN [facility] CPT-13803 Level 4 Est. Patient 10:31:15 CDT Jalil Hayes MD [facility] CPT-06470 Level 4 Est. Patient 15:07:54 CDT Mariaadomenico Whitman [facility] CPT-71288 Level 3 Est. Patient 20:45:54 DATA CENTER SOLUTIONS ARCHITECT Mariaa Whitman [facility] CPT-78479 Level 3 Est. Patient 12:16:16 CDT Ana Cristina Vallejo MD [facility] CPT-84290 Level 4 Est. Patient 12:49:21 CDT An aCristina Vallejo MD [facility] CPT-31069 Level 4 Est. Patient 23:02:25 CDT Ana Cristina Vallejo MD [facility] CPT-24688 Level 4 Est. Patient 19:26:33 DATA CENTER SOLUTIONS ARCHITECT Ana Cristina Vallejo MD [facility] CPT-33517 Level 4 Est. Patient 11:28:14 CDT Ana Cristina Vallejo MD [facility] CPT-72140 Level 4 Est. Patient 15:35:46 DATA CENTER SOLUTIONS ARCHITECT Ana Cristina Vallejo MD [facility] CPT-99243 Level 3 Est. Patient 21:06:39 DATA CENTER SOLUTIONS ARCHITECT Alden iKm MD [facility] CPT-35650 Level 4 Est. Patient 15:30:54 DATA CENTER SOLUTIONS ARCHITECT Ana Cristina Vallejo MD [facility] Procedures Code Procedure Name Date Entry Date Standard Description CPT-30867 First Vx - Ix admin for Medicare patients 13:35:01 CDT CPT-37499 Fluzone High-Dose Intramuscular Suspension 13:35:01 CDT CPT-TCMM Transitional Care Mgmt-Moderate 14:41:55 CDT CPT-37602 EKG Trac and Interp - XRAY USE ONLY 10:35:11 CDT 09/11 CPT-01157 Chest 2V Frontal and Lat - XRAY USE ONLY 10:35:11 CDT CPT-G0438 Initial Annual Wellness Exam 14:54:07 CDT CPT-G0009 Administration of Pneumococcal Vaccine 14:44:24 CDT CPT-75278 Pneumovax 23 Injection Injectable 25 MCG/0.5ML 14:44:24 CDT CPT-67724 First Vx - Ix admin for Medicare patients 14:44:24 CDT CPT-07398 Fluzone High-Dose Intramuscular Suspension 14:44:20 CDT CPT-91454 BMP - LAB USE ONLY 12:38:06 CDT CPT-53208 Urine Culture - LAB USE ONLY 16:56:33 CDT CPT-TCMM Transitional Care Mgmt-Moderate 18:08:16 CDT CPT-38349 Bone Density 09:14:12 CDT CPT-000 Give Appropriate Flu Vaccine 14:51:52 CDT CPT-11909 Fluzone High Dose (>=65 yrs.) 15:19:23 CDT CPT-92946 Immunization Single Admin 15:19:23 CDT CPT-52876 Prevnar 13 15:40:03 CDT CPT-43483 Administration single or combination vaccine inc oral 15 :40:03 CDT CPT-16945 Prevnar 13 13:55:07 CDT CPT-G0008 Administration of Influenza Virus Vaccine 10:49:51 CDT CPT-37741 Fluzone High-Dose Intramuscular Suspension 10:49:51 CDT CPT-61500 Knee 3V 13:31:37 CDT CPT-98712 Bone Density 09:07:05 DATA CENTER SOLUTIONS ARCHITECT CPT-43250 Nail Avulsion 09:46:05 CDT CPT-19591 Administration single or combination vaccine inc oral 16 :11:54 CDT CPT-38662 Influenza High Dose age 65+ 16:11:54 CDT CPT-43104 Administration single or combination vaccine inc oral 10 :53:15 CDT CPT-97662 Influenza High Dose age 65+ 10:53:15 CDT CPT-70335 Bone Density 14:50:58 DATA CENTER SOLUTIONS ARCHITECT CPT-02786 Administration single or combination vaccine inc oral 15 :41:20 DATA CENTER SOLUTIONS ARCHITECT CPT-52291 Zoster Vaccine (Zostavax) 15:41:20 DATA CENTER SOLUTIONS ARCHITECT CPT-17268 Spec Collection and Handling Fee 11:18:25 DATA CENTER SOLUTIONS ARCHITECT CPT-10053 Administration single or combination vaccine inc oral 11 :14:20 CDT CPT-10328 Influenza High Dose age 65+ 11:14:20 CDT
--- OUTSIDE RECORDS SUMMARY | 2017-07-18 09:23 | XMS REPORT | Clinical Summary ---
Author Author Admin, QIE Organization [facility] [employer] Address Unknown Phone Unavailable Allergies, Adverse Reactions, Alerts Allergy Name Reaction Description Start Date Severity Status Provider No Known Allergies Jackelin Barth RPT,RMA NKDA Critical Active Mariaa Whitman ADDICTIONS COUNSELOR ASSISTANT Conditions or Problems Problem Name Problem Code [...] PACK Takes daily prn POLYETHYLENE GLYCOL 3350 62822484988 Active Mariaa Whitman APRN Active ALENDRONATE SODIUM 70 MG TABS 1 pill by mouth weekly for osteoporosis ALENDRONATE SODIUM 12878586447 Active Brianda KNOTT Active E-1000 1000 UNIT ORAL CAPS Take one by mouth daily VITAMIN E 70540456112 Active Brianda KNOTT Active OSCAL 500/200 D-3 500-200 MG-UNIT ORAL TABS Take one by mouth 3 times daily, morning, afternoon and evening.] CALCIUM CARBONATE-VITAMIN D 52124121505 Active Brianda KNOTT Active ASPIRIN 81 MG CHEW TAB 1 tablet by mouth daily ASPIRIN 14994577055 Active Brianda RICK Active ADULT ASPIRIN EC LOW STRENGTH 81 MG TBEC TAKE 1 TAB DAILY ASPIRIN 63957659736 No Longer Active Mariaa Whitman APRN Active ALENDRONATE SODIUM 70 MG TABS TAKE 1 TAB ONCE A WEEK ALENDRONATE SODIUM 41147625057 No Longer Active Mariaa Whitman APRN Active FLONASE ALLERGY RELIEF 50 MCG/ACT NASAL SUSP One spray each nostril daily for allergies FLUTICASONE PROPIONATE 28727420218 Active Mariaa Whitman APRN Active CETIRIZINE HCL 10 MG ORAL TABS 1 po qd PRN Allergies CETIRIZINE HCL 07001003326 Active Mariaa Whitman APRN Active BACTRIM DS 800-160 MG TABS 1 pill by mouth twice daily, for UTI SULFAMETHOXAZOLE-TRIMETHOPRIM 34182688441 No Longer Active Ana Cristina Vallejo MD PhD Active HYDROCHLOROTHIAZIDE 12.5 MG CAPS 1 pill by mouth daily, for blood pressure HYDROCHLOROTHIAZIDE 56156100753 Active Mariaa Whitman APRN Active CARVEDILOL 25 MG TABS 1 pill by mouth twice daily for blood pressure CARVEDILOL 21721095882 Active Mariaa Whitman APRN Active SYNTHROID 0.088 MG TAB 1 tablet by mouth daily for thyroid LEVOTHYROXINE SODIUM 18370223941 Active Mariaa Whitman ADDICTIONS COUNSELOR ASSISTANT Active AMOXICILLIN 500 MG CAP 1 tab by mouth 3 times daily AMOXICILLIN 37752373066 No Longer Active Alden Kim MD Active CVS VITAMIN D3 1000 UNIT CAPS TAKE 2 CAP DAILY CHOLECALCIFEROL Active Ana Cristina Vallejo MD PhD Active CALCIUM 500 MG TABS TAKE 3 TABS DAILY CALCIUM 37987839704 No Longer Active Mariaa Demetrioum ADDICTIONS COUNSELOR ASSISTANT Active MULTIVITAMINS TABS TAKE 1 TAB DAILY MULTIPLE VITAMIN Active Aneta D Leo DRUG COORDINATOR Active BENADRYL ALLERGY 25 MG TABS NEEDED DIPHENHYDRAMINE HCL 00245182800 Active Aneta D Leo DRUG COORDINATOR Active TYLENOL 325 MG TABS NEEDED ACETAMINOPHEN 75828638253 Active Aneta D Leo DRUG COORDINATOR Active ADVIL 200 MG TABS TAKE NEEDED IBUPROFEN 41787721330 Active Aneta D Leo DRUG COORDINATOR Active GLUCOSAMINE-CHONDROITIN 500-400 MG TABS TAKE 1 TAB DAILY GLUCOSAMINE-CHONDROITIN 00088547934 Active Mariaa Yokum ADDICTIONS COUNSELOR ASSISTANT Active NORVASC 10 MG TABS TAKE 1 TAB DAILY AMLODIPINE BESYLATE 34190053377 Active Mariaa Yokum ADDICTIONS COUNSELOR ASSISTANT Active BENAZEPRIL HCL 40 MG TABS 1 PO BID BENAZEPRIL HCL 30455920572 Active Mariaadomenico Atkinsonum ADDICTIONS COUNSELOR ASSISTANT Active LOVASTATIN 20 MG TABS 1 PO Q HS FOR CHOLESTEROL LOVASTATIN 01623901077 Active Mariaadomenico Atkinsonum ADDICTIONS COUNSELOR ASSISTANT Active RANITIDINE HCL 150 MG CAPS 1 PO Q 12 HRS RANITIDINE HCL 50417272659 Active Mariaa Demetrioum ADDICTIONS COUNSELOR ASSISTANT Active ALENDRONATE SODIUM 70 MG TABS TAKE 1 TAB ONCE A WEEK ALENDRONATE SODIUM 70 MG TABS 271997 ALENDRONATE SODIUM Inactive ADULT ASPIRIN EC LOW STRENGTH 81 MG TBEC TAKE 1 TAB DAILY ADULT ASPIRIN EC LOW STRENGTH 81 MG TBEC 273920 ASPIRIN Inactive AMOXICILLIN 500 MG CAP 1 tab by mouth 3 times daily AMOXICILLIN 500 MG CAP 402585 AMOXICILLIN Inactive BACTRIM DS 800-160 MG TABS 1 pill by mouth twice daily, for UTI BACTRIM DS 800-160 MG TABS 440930 SULFAMETHOXAZOLE-TRIMETHOPRIM Inactive Advance Directives Directive Description Start [...] 1.41 ng/dL 0.76-1.46 cholesterol, serum 166 mg/dL 393-538 6312/04/20 triglyceride, serum, fasting 68 mg/dL 30-200 HDL cholesterol, serum 88 mg/dL 32-96 LDL cholesterol, serum 64 mg/dL 0-130 sodium, serum 132 mmol/L 012-976 3813/04/20 carbon dioxide, venous blood 31.3 mmol/L 21.0-32.0 [...] Negative Encounters Code Encounter Date Provider Facility CPT-17996 Level 4 Est. Patient 15:07:54 CDT Mariaa Whitman [facility] CPT-27264 Level 3 Est. Patient 20:45:54 EMERGENCY MEDICINE Mariaa Whitman [facility] CPT-89054 Level 3 Est. Patient 12:16:16 CDT Ana Cristina Vallejo MD PhD [facility] CPT-97734 Level 4 Est. Patient 12:49:21 CDT Ana Cristina Vallejo MD PhD [facility] CPT-95167 Level 4 Est. Patient 23:02:25 CDT Ana Cristina Vallejo MD PhD [facility] CPT-87608 Level 4 Est. Patient 19:26:33 EMERGENCY MEDICINE Ana Cristina Vallejo MD [facility] CPT-65452 Level 4 Est. Patient 11:28:14 CDT Ana Cristina Vallejo MD [facility] CPT-63824 Level 4 Est. Patient 15:35:46 EMERGENCY MEDICINE Ana Cristina Vallejo MD [facility] CPT-26680 Level 3 Est. Patient 21:06:39 EMERGENCY MEDICINE Alden Kim MD [facility] CPT-69051 Level 4 Est. Patient 15:30:54 EMERGENCY MEDICINE Ana Cristina Vallejo MD [facility] Procedures Code Procedure Name Date Entry Date Standard Description CPT-G0009 Administration of Pneumococcal Vaccine 14:44:24 CDT CPT-26949 Pneumovax 23 Injection Injectable 25 MCG/0.5ML 14:44:24 CDT CPT-21066 First Vx - Ix admin for Medicare patients 14:44:24 CDT CPT-96082 Fluzone High-Dose Intramuscular Suspension 14:44:20 CDT CPT-51567 BMP - LAB USE ONLY 12:38:06 CDT CPT-21615 Urine Culture - LAB USE ONLY 16:56:33 CDT CPT-TCMM Transitional Care Mgmt-Moderate 18:08:16 CDT CPT-97920 Bone Density 09:14:12 CDT CPT-000 Give Appropriate Flu Vaccine 14:51:52 CDT CPT-60527 Fluzone High Dose (>=65 yrs.) 15:19:23 CDT CPT-64401 Immunization Single Admin 15:19:23 CDT CPT-35376 Prevnar 13 15:40:03 CDT CPT-65421 Administration single or combination vaccine inc oral 15 :40:03 CDT CPT-27491 Prevnar 13 13:55:07 CDT CPT-G0008 Administration of Influenza Virus Vaccine 10:49:51 CDT CPT-81475 Fluzone High-Dose Intramuscular Suspension 10:49:51 CDT CPT-64945 Knee 3V 13:31:37 CDT CPT-11498 Bone Density 09:07:05 EMERGENCY MEDICINE CPT-14473 Nail Avulsion 09:46:05 CDT CPT-81410 Administration single or combination vaccine inc oral 16 :11:54 CDT CPT-14374 Influenza High Dose age 65+ 16:11:54 CDT CPT-45859 Administration single or combination vaccine inc oral 10 :53:15 CDT CPT-58409 Influenza High Dose age 65+ 10:53:15 CDT CPT-74438 Bone Density 14:50:58 EMERGENCY MEDICINE CPT-71967 Administration single or combination vaccine inc oral 15 :41:20 EMERGENCY MEDICINE CPT-66384 Zoster Vaccine (Zostavax) 15:41:20 EMERGENCY MEDICINE CPT-41565 Spec Collection and Handling Fee 11:18:25 EMERGENCY MEDICINE CPT-62569 Administration single or combination vaccine inc oral 11 :14:20 CDT CPT-30408 Influenza High Dose age 65+ 11:14:20 CDT
--- OUTSIDE RECORDS SUMMARY | 2017-07-18 09:23 | XMS REPORT | Clinical Summary ---
Author Author Admin, DANDRE Organization [facility] [employer] Address Unknown Phone Unavailable Allergies, Adverse Reactions, Alerts Allergy Name Reaction Description Start Date Severity Status Provider NKDA Critical Active Mariaa Whitman SALES REPRESENTATIVE GIRLS' APPAREL Conditions or Problems Problem Name Problem Code Onset Date Status Entry Date Provider Comment Standard Description Annotate ROUTINE GYNECOLOGICAL EXAMINATION V72.31 Resolved Ana Cristina Vallejo MD PhD Routine gynecological examination MENOPAUSE 627.2 Ruled out Ana Cristina Vallejo MD PhD Symptomatic menopausal or female climacteric states MENOPAUSE 627.2 Active Brianda Reis [facility] Symptomatic menopausal or female climacteric [...] 787.20 Active Bee Rosas APRN Dysphagia, unspecified INGROWN TOENAIL, INFECTED ICD-703.0 Inactive Ana [...] 1 po BID PRN Constipation DOCUSATE SODIUM 10103476499 No Longer Active Deepti Madl CAT CRACKER OPERATOR Active ALPRAZOLAM 0.25 MG TAB 1/2-1 tablet by mouth twice a day as needed for stress ALPRAZOLAM 05317537681 No Longer Active Deepti Madl CAT CRACKER OPERATOR Active MIRALAX ORAL PACK Takes daily prn POLYETHYLENE GLYCOL 3350 55952832924 Active Mariaa Yokum SALES REPRESENTATIVE GIRLS' APPAREL Active ALENDRONATE SODIUM 70 MG TABS 1 pill by mouth weekly for osteoporosis ALENDRONATE SODIUM 87950412521 Active Brianda Reis [facility] Active E-1000 1000 UNIT ORAL CAPS Take one by mouth daily VITAMIN E 91408894006 Active Brianda Reis [facility] Active OSCAL 500/200 D-3 500-200 MG-UNIT ORAL TABS Take one by mouth 3 times daily, morning, afternoon and evening.] CALCIUM CARBONATE-VITAMIN D 47876145442 Active Brianda Reis [facility] Active ASPIRIN 81 MG CHEW TAB 1 tablet by mouth daily ASPIRIN 49134788861 Active Brianda Reis [facility] Active ADULT ASPIRIN EC LOW STRENGTH 81 MG TBEC TAKE 1 TAB DAILY ASPIRIN 67562483472 No Longer Active Mariaa Laukum SALES REPRESENTATIVE GIRLS' APPAREL Active ALENDRONATE SODIUM 70 MG TABS TAKE 1 TAB ONCE A WEEK ALENDRONATE SODIUM 34922311144 No Longer Active Mariaa Yokum SALES REPRESENTATIVE GIRLS' APPAREL Active FLONASE ALLERGY RELIEF 50 MCG/ACT NASAL SUSP One spray each nostril daily for allergies FLUTICASONE PROPIONATE 92479550058 Active Mariaa Whitman APRN Active CETIRIZINE HCL 10 MG ORAL TABS 1 po qd PRN Allergies CETIRIZINE HCL 64026906110 Active HEDY Esquivel Active BACTRIM DS 800-160 MG TABS 1 pill by mouth twice daily, for UTI SULFAMETHOXAZOLE-TRIMETHOPRIM 83012913890 No Longer Active Ana Cristina Vallejo MD PhD Active HYDROCHLOROTHIAZIDE 12.5 MG CAPS 1 pill by mouth daily, for blood pressure HYDROCHLOROTHIAZIDE 96638647067 Active HEDY Esquivel Active CARVEDILOL 25 MG TABS 1 pill by mouth twice daily for blood pressure CARVEDILOL 41229891617 Active HEDY Esquivel Active SYNTHROID 0.088 MG TAB 1 tablet by mouth daily for thyroid LEVOTHYROXINE SODIUM 83656217272 Active HEDY Esquivel Active AMOXICILLIN 500 MG CAP 1 tab by mouth 3 times daily AMOXICILLIN 61114368554 No Longer Active Alden Kim MD Active CVS VITAMIN D3 1000 UNIT CAPS TAKE 2 CAP DAILY CHOLECALCIFEROL Active Ana Cristina Vallejo MD PhD Active CALCIUM 500 MG TABS TAKE 3 TABS DAILY CALCIUM 43777991860 No Longer Active Mariaa Whitman APRN Active MULTIVITAMINS TABS TAKE 1 TAB DAILY MULTIPLE VITAMIN Active Anetajeannie Tavarezum CAT CRACKER OPERATOR Active BENADRYL ALLERGY 25 MG TABS NEEDED DIPHENHYDRAMINE HCL 13801975408 Active Aneta Singh Leo CAT CRACKER OPERATOR Active TYLENOL 325 MG TABS NEEDED ACETAMINOPHEN 06045877358 Active Aneta Singh Leo CAT CRACKER OPERATOR Active ADVIL 200 MG TABS TAKE NEEDED IBUPROFEN 06187998386 Active Aneta Singh Leo CAT CRACKER OPERATOR Active GLUCOSAMINE-CHONDROITIN 500-400 MG TABS TAKE 1 TAB DAILY GLUCOSAMINE-CHONDROITIN 39067474772 Active Mariaa Whitman APRN Active NORVASC 10 MG TABS TAKE 1 TAB DAILY AMLODIPINE BESYLATE 64552059169 Active HEDY Esquivel Active BENAZEPRIL HCL 40 MG TABS 1 PO BID BENAZEPRIL HCL 93137536669 Active HEDY Esquivel Active LOVASTATIN 20 MG TABS 1 PO Q HS FOR CHOLESTEROL LOVASTATIN 12231174383 Active HEDY Esquivel Active RANITIDINE HCL 150 MG CAPS 1 PO Q 12 HRS RANITIDINE HCL 51485761691 Active HEDY Esquivel Active ALENDRONATE SODIUM 70 MG TABS TAKE 1 TAB ONCE A WEEK ALENDRONATE SODIUM 70 MG TABS 191804 ALENDRONATE SODIUM Inactive ADULT ASPIRIN EC LOW STRENGTH 81 MG TBEC TAKE 1 TAB DAILY ADULT ASPIRIN EC LOW STRENGTH 81 MG TBEC 364934 ASPIRIN Inactive ALPRAZOLAM 0.25 MG TAB 1/2-1 tablet by mouth twice a day as needed for stress ALPRAZOLAM 0.25 MG TAB 281894 ALPRAZOLAM Inactive COLACE 100 MG CAP 1 po BID PRN Constipation COLACE 100 MG CAP 0111784 DOCUSATE SODIUM Inactive AMOXICILLIN 500 MG CAP 1 tab by mouth 3 times daily AMOXICILLIN 500 MG CAP 992173 AMOXICILLIN Inactive BACTRIM DS 800-160 MG TABS 1 pill by mouth twice daily, for UTI BACTRIM DS 800-160 MG TABS 311719 SULFAMETHOXAZOLE-TRIMETHOPRIM Inactive Advance Directives Directive Description Start [...] Panel - Chemistry sodium, serum 130 mmol/L 964-997 5245/10/19 potassium, serum 3.5 mmol/L 3.5-5.2 chloride, serum 92 mmol/L 98-107 carbon dioxide, venous blood 33.6 mmol/L 21.0-32.0 blood glucose 118 mg/dL 65-110 calcium, serum 8.8 mg/dL 8.5-10.1 urea nitrogen, blood 11 mg/dL 7-18 creatinine, serum 1.12 mg/dL 0.55-1.30 Lab Report: CBC-QUEST, COMPREHENSIVE METABOLIC PANEL, LIPID PANEL, Micro ... - Chemistry cholesterol, serum 162 mg/dL 540-996 2520/05/01 HDL cholesterol, serum 68 mg/dL > OR=46 [...] % 11.0-15.0 platelet count 297 THOUSAND/UL 10*3/mm3 203-775 5037/05/01 mean platelet volume 8.9 fL 7.5-12.5 Lab [...] Negative Encounters Code Encounter Date Provider Facility CPT-38285 Level 4 Est. Patient 14:40:54 CDT Bee Rosas [facility] CPT-94995 Level 4 Est. Patient 10:31:15 CDT Jalil Hayes MD [facility]-64019 Level 4 Est. Patient 15:07:54 CDT Mariaa Whitman [facility]-82577 Level 3 Est. Patient 20:45:54 WELDER BOILERMAKER Mariaa Whitman [facility] CPT-35378 Level 3 Est. Patient 12:16:16 CDT Ana Cristina Vallejo MD PhD [facility] CPT-19505 Level 4 Est. Patient 12:49:21 CDT Ana Cristina Vallejo MD [facility]-11998 Level 4 Est. Patient 23:02:25 CDT Ana Cristina Vallejo MD PhD [facility] CPT-36194 Level 4 Est. Patient 19:26:33 WELDER BOILERMAKER Ana Cristina Vallejo MD PhD [facility] CPT-55739 Level 4 Est. Patient 11:28:14 CDT Ana Cristina Vallejo MD PhD [facility] CPT-44658 Level 4 Est. Patient 15:35:46 WELDER BOILERMAKER Ana Cristina Vallejo MD PhD [facility] CPT-42722 Level 3 Est. Patient 21:06:39 WELDER BOILERMAKER Alden Kim MD [facility] CPT-50447 Level 4 Est. Patient 15:30:54 WELDER BOILERMAKER Ana Cristina Vallejo MD PhD [facility] Procedures Code Procedure Name Date Entry Date Standard Description CPT-97077 EKG Trac and Interp - XRAY USE ONLY 10:35:11 CDT 09/11 CPT-69157 Chest 2V Frontal and Lat - XRAY USE ONLY 10:35:11 CDT CPT-G0438 Initial Annual Wellness Exam 14:54:07 CDT CPT-G0009 Administration of Pneumococcal Vaccine 14:44:24 CDT CPT-41076 Pneumovax 23 Injection Injectable 25 MCG/0.5ML 14:44:24 CDT CPT-82812 First Vx - Ix admin for Medicare patients 14:44:24 CDT CPT-91608 Fluzone High-Dose Intramuscular Suspension 14:44:20 CDT CPT-67698 BMP - LAB USE ONLY 12:38:06 CDT CPT-63347 Urine Culture - LAB USE ONLY 16:56:33 CDT CPT-TCMM Transitional Care Mgmt-Moderate 18:08:16 CDT CPT-28488 Bone Density 09:14:12 CDT CPT-000 Give Appropriate Flu Vaccine 14:51:52 CDT CPT-67374 Fluzone High Dose (>=65 yrs.) 15:19:23 CDT CPT-12525 Immunization Single Admin 15:19:23 CDT CPT-11995 Prevnar 13 15:40:03 CDT CPT-42268 Administration single or combination vaccine inc oral 15 :40:03 CDT CPT-26978 Prevnar 13:55:07 CDT CPT-G0008 Administration of Influenza Virus Vaccine 10:49:51 CDT CPT-00509 Fluzone High-Dose Intramuscular Suspension 10:49:51 CDT CPT-65710 Knee 3V 13:31:37 CDT CPT-87709 Bone Density 09:07:05 WELDER BOILERMAKER CPT-64751 Nail Avulsion 09:46:05 CDT CPT-61819 Administration single or combination vaccine inc oral 16 :11:54 CDT CPT-71133 Influenza High Dose age 65+ 16:11:54 CDT CPT-57555 Administration single or combination vaccine inc oral 10 :53:15 CDT CPT-03264 Influenza High Dose age 65+ 10:53:15 CDT CPT-87555 Bone Density 14:50:58 WELDER BOILERMAKER CPT-56454 Administration single or combination vaccine inc oral 15 :41:20 WELDER BOILERMAKER CPT-24517 Zoster Vaccine (Zostavax) 15:41:20 WELDER BOILERMAKER CPT-28223 Spec Collection and Handling Fee 11:18:25 WELDER BOILERMAKER CPT-79187 Administration single or combination vaccine inc oral 11 :14:20 CDT CPT-86252 Influenza High Dose age 65+ 11:14:20 CDT
[2017-07-18] MEDS ORDERED: SEVOFLURANE (ULTANE) 15 ML INHAL SOLN ONE ×7 (09:24→11:15)
[2017-07-18] MEDS ORDERED: DEXAMETHASONE 10 MG/ML (DECADRON) 1 ML VIAL ONE (09:24)
[2017-07-18] MEDS ORDERED: ROCURONIUM 10 MG/ML 5 ML SYRINGE IV ONE (09:24)
[2017-07-18] MEDS ORDERED: ONDANSETRON 4 MG/2 ML (SDV) Z0FRAN ONE (09:24)
[2017-07-18] MEDS ORDERED: MIDAZOLAM 2 MG/2 ML (VERSED) VIAL ONE (09:24)
[2017-07-18] MEDS ORDERED: LIDOCAINE PF 2% 5 ML (XYLOCAINE) VIAL ONE (09:24)
[2017-07-18] MEDS ORDERED: PROPOFOL INJECTION 50 ML IV ONE (09:24)
--- OUTSIDE RECORDS SUMMARY | 2017-07-18 09:24 | XMS REPORT | Clinical Summary ---
Author Author Admin, DANDRE Organization [facility] Address Unknown Phone Unavailable Allergies, Adverse Reactions, Alerts Allergy Name Reaction Description Start Date Severity Status Provider No Known Allergies Brianda Bergerford [facility] Conditions or Problems Problem Name Problem [...] by mouth daily, for blood pressure HYDROCHLOROTHIAZIDE 77699518269 Active Ana Cristina Vallejo MD PhD Active CARVEDILOL 25 MG TABS 1 pill by mouth twice daily for blood pressure CARVEDILOL 85645782339 Active Ana Cristina Vallejo MD PhD Active SYNTHROID 0.088 MG TAB 1 tablet by mouth daily for thyroid LEVOTHYROXINE SODIUM 14675970257 Active Ana Cristina Vallejo MD PhD Active AMOXICILLIN 500 MG CAP 1 tab by mouth 3 times daily AMOXICILLIN 58995008749 No Longer Active Alden Kim MD Active [facility]S VITAMIN D3 1000 UNIT CAPS TAKE 2 CAP DAILY CHOLECALCIFEROL 21887483306 Active Ana Cristina Vallejo MD PhD Active CALCIUM 500 MG TABS TAKE 3 TABS DAILY CALCIUM 26390749425 Active Aneta Tavarezum RECRUITER COORDINATOR Active MULTIVITAMINS TABS TAKE 1 TAB DAILY MULTIPLE VITAMIN 93020072211 Active Aneta Tavarezum RECRUITER COORDINATOR Active BENADRYL ALLERGY 25 MG TABS NEEDED DIPHENHYDRAMINE HCL 09288284050 Active Aneta Tavarezum RECRUITER COORDINATOR Active TYLENOL 325 MG TABS NEEDED ACETAMINOPHEN 49411762345 Active Aneta Tavarezum RECRUITER COORDINATOR Active ADVIL 200 MG TABS TAKE NEEDED IBUPROFEN 05799762078 Active Aneta Tavarezum RECRUITER COORDINATOR Active ADULT ASPIRIN EC LOW STRENGTH 81 MG TBEC TAKE 1 TAB DAILY ASPIRIN 46161822048 Active Aneta Tavarezum RECRUITER COORDINATOR Active VITAMIN E NATURAL 400 UNIT CAPS TAKE 1 CAP DAILY VITAMIN E 40768747281 Active Aneta Tavarezum RECRUITER COORDINATOR Active GLUCOSAMINE-CHONDROITIN 500-400 MG TABS TAKE 1 TAB DAILY GLUCOSAMINE-CHONDROITIN 01732862845 Active Aneta Tavarezum RECRUITER COORDINATOR Active NORVASC 10 MG TABS TAKE 1 TAB DAILY AMLODIPINE BESYLATE 17972456323 Active Ana Cristina Vallejo MD PhD Active BENAZEPRIL HCL 40 MG TABS 1 PO BID BENAZEPRIL HCL 87426868553 Active Ana Cristina Vallejo MD PhD Active LOVASTATIN 20 MG TABS 1 PO Q HS FOR CHOLESTEROL LOVASTATIN 51371030786 Active Ana Cristina Vallejo MD PhD Active RANITIDINE HCL 150 MG CAPS 1 PO Q 12 HRS RANITIDINE HCL 64203185064 Active Ana Cristina Vallejo MD PhD Active ALENDRONATE SODIUM 70 MG TABS TAKE 1 TAB ONCE A WEEK ALENDRONATE SODIUM 10680803271 Active Ana Cristina Vallejo MD PhD Active AMOXICILLIN 500 MG CAP 1 tab by mouth 3 times daily AMOXICILLIN 500 MG CAP 657792 AMOXICILLIN Inactive Immunizations Vaccine Administration Date Value [...] Panel - Chemistry sodium, serum 136 mmol/L 338-614 7893/03/24 potassium, serum 4.3 mmol/L 3.5-5.2 chloride, serum 98 mmol/L 98-107 carbon dioxide, venous blood 28.8 mmol/L 21.0-32.0 blood glucose 94 mg/dL 65-110 calcium, serum 9.5 mg/dL 8.5-10.1 urea nitrogen, blood 10 mg/dL 7-18 creatinine, serum 1.10 mg/dL 0.60-1.30 Lab Report: CBC, Comp. Metabolic Panel, Lipid Panel, TSH, freeT4 - Chemistry sodium, serum 141 mmol/L 758-557 6340/08/05 potassium, serum 4.0 mmol/L 3.5-5.2 chloride, serum [...] 0.40 mg/dL 0.00-1.00 cholesterol, serum 155 mg/dL 260-475 2828/08/05 triglyceride, serum, fasting 72 mg/dL 30-200 HDL cholesterol, serum 69 mg/dL 32-96 LDL cholesterol, serum 72 mg/dL 0-130 TSH 0.46 m[iU]/mL 0.36-3.74 thyroxine, serum, free 1.42 ng/dL 0.76-1.46 Lab Report: CBC, Comp. Metabolic Panel, Lipid Panel, TSH, freeT4 - Hematology mean corpuscular volume, RBC 94 fL 80-97 hematocrit, blood 36.9 % 36.0-46.0 hemoglobin, blood 12.2 g/dL 12.0-16.0 erythrocyte (RBC) count 3.91 10^6/MM^3 10*6/mm3 4.04-5.48 leukocyte count, blood 5.5 10^3/MM^3 10*3/mm3 4.6-10.2 mean corpuscular hemoglobin, RBC 31.2 pg 27.0-31.2 [...] freeT4 - Chemistry sodium, serum 141 mmol/L 152-172 6120/03/13 potassium, serum 4.1 mmol/L 3.5-5.2 chloride, serum [...] 78 U/L 26-192 cholesterol, serum 143 mg/dL 036-226 6099/03/13 triglyceride, serum, fasting 60 mg/dL 30-200 HDL cholesterol, serum 72 mg/dL 32-96 LDL cholesterol, serum 59 mg/dL 0-130 TSH 1.33 m[iU]/mL 0.36-3.74 thyroxine, serum, free 1.18 ng/dL 0.76-1.46 Lab Report: MAGNESIUM/622, VITAMIN D, 25-HYDROXY/38644 - Chemistry vitamin D 25-hydroxy, serum 46 ng/mL 30-100 Encounters Code Encounter Date Provider Facility CPT-41024 Level 3 Est. Patient 12:16:16 CDT Ana Cristina Vallejo MD PhD [facility] CPT-75207 Level 4 Est. Patient 12:49:21 CDT Ana Cristina Vallejo MD PhD [facility] CPT-75896 Level 4 Est. Patient 23:02:25 CDT Ana Cristina Vallejo MD PhD [facility] CPT-69232 Level 4 Est. Patient 19:26:33 TUYERE FITTER Ana Cristina Vallejo MD PhD [facility] CPT-96550 Level 4 Est. Patient 11:28:14 CDT Ana Cristina Vallejo MD PhD [facility] CPT-62879 Level 4 Est. Patient 15:35:46 TUYERE FITTER Ana Cristina Vallejo MD PhD [facility] CPT-73561 Level 3 Est. Patient 21:06:39 TUYERE FITTER Alden Kim MD [facility] CPT-31825 Level 4 Est. Patient 15:30:54 TUYERE FITTER Ana Cristina Vallejo MD PhD [facility] Procedures Code Procedure Name Date Entry Date Standard Description CPT-49080 Prevnar 13 15:40:03 CDT CPT-35236 Administration single or combination vaccine inc oral 15 :40:03 CDT CPT-48795 Prevnar 13 13:55:07 CDT CPT-G0008 Administration of Influenza Virus Vaccine 10:49:51 CDT CPT-57131 Fluzone High-Dose Intramuscular Suspension 10:49:51 CDT CPT-16739 Knee 3V 13:31:37 CDT CPT-82246 Bone Density 09:07:05 TUYERE FITTER CPT-15798 Nail Avulsion 09:46:05 CDT CPT-30004 Administration single or combination vaccine inc oral 16 :11:54 CDT CPT-04311 Influenza High Dose age 65+ 16:11:54 CDT CPT-78495 Administration single or combination vaccine inc oral 10 :53:15 CDT CPT-11927 Influenza High Dose age 65+ 10:53:15 CDT CPT-06799 Bone Density 14:50:58 TUYERE FITTER CPT-19967 Administration single or combination vaccine inc oral 15 :41:20 TUYERE FITTER CPT-47520 Zoster Vaccine (Zostavax) 15:41:20 TUYERE FITTER CPT-32556 Spec Collection and Handling Fee 11:18:25 TUYERE FITTER CPT-39477 Administration single or combination vaccine inc oral 11 :14:20 CDT CPT-50346 Influenza High Dose age 65+ 11:14:20 CDT
--- OUTSIDE RECORDS SUMMARY | 2017-07-18 09:25 | XMS REPORT | Clinical Summary ---
Author Author Admin, HUYENE Organization [facility] [employer] Address Unknown Phone Unavailable Allergies, Adverse Reactions, [...] by mouth weekly for osteoporosis ALENDRONATE SODIUM 98583983063 Active Brianda Reis [facility] Active E-1000 1000 UNIT ORAL CAPS Take one by mouth daily VITAMIN E 38629864883 Active Brianda KNOTT Active OSCAL 500/200 D-3 500-200 MG-UNIT ORAL TABS Take one by mouth 3 times daily, morning, afternoon and evening.] CALCIUM CARBONATE-VITAMIN D 04952380231 Active Brianda KNOTT Active ASPIRIN 81 MG CHEW TAB 1 tablet by mouth daily ASPIRIN 85009526874 Active Brianda RICK Active ADULT ASPIRIN EC LOW STRENGTH 81 MG TBEC TAKE 1 TAB DAILY ASPIRIN 75220811938 No Longer Active Mariaa Whitman APRN Active ALENDRONATE SODIUM 70 MG TABS TAKE 1 TAB ONCE A WEEK ALENDRONATE SODIUM 42131439960 No Longer Active Mariaa Whitman APRN Active FLONASE ALLERGY RELIEF 50 MCG/ACT NASAL SUSP One spray each nostril daily for allergies FLUTICASONE PROPIONATE 23587330248 Active Mariaa Whitman APRN Active CETIRIZINE HCL 10 MG ORAL TABS 1 po qd PRN Allergies CETIRIZINE HCL 74923717193 Active Mariaa Whitman APRN Active BACTRIM DS 800-160 MG TABS 1 pill by mouth twice daily, for UTI SULFAMETHOXAZOLE-TRIMETHOPRIM 97999472095 No Longer Active Ana Cristina Vallejo MD PhD Active HYDROCHLOROTHIAZIDE 12.5 MG CAPS 1 pill by mouth daily, for blood pressure HYDROCHLOROTHIAZIDE 88440726206 Active Mariaa Whitman APRN Active CARVEDILOL 25 MG TABS 1 pill by mouth twice daily for blood pressure CARVEDILOL 56640523427 Active Mariaa Whitman APRN Active SYNTHROID 0.088 MG TAB 1 tablet by mouth daily for thyroid LEVOTHYROXINE SODIUM 20755603594 Active Mariaa Whitman APRN Active AMOXICILLIN 500 MG CAP 1 tab by mouth 3 times daily AMOXICILLIN 40033448829 No Longer Active Alden Kim MD Active [facility] VITAMIN D3 1000 UNIT CAPS TAKE 2 CAP DAILY CHOLECALCIFEROL Active Ana Cristina Vallejo MD PhD Active CALCIUM 500 MG TABS TAKE 3 TABS DAILY CALCIUM 10436751331 No Longer Active Mariaa Whitman SIGN LANGUAGE INSTRUCTOR Active MULTIVITAMINS TABS TAKE 1 TAB DAILY MULTIPLE VITAMIN Active Aneta Tavarezum CHEMICAL COMPOUNDER Active BENADRYL ALLERGY 25 MG TABS NEEDED DIPHENHYDRAMINE HCL 26722703376 Active Aneta Tavarezum CHEMICAL COMPOUNDER Active TYLENOL 325 MG TABS NEEDED ACETAMINOPHEN 16302604137 Active Aneta Tavarezum CHEMICAL COMPOUNDER Active ADVIL 200 MG TABS TAKE NEEDED IBUPROFEN 77970397837 Active Aneta Tavarezum CHEMICAL COMPOUNDER Active GLUCOSAMINE-CHONDROITIN 500-400 MG TABS TAKE 1 TAB DAILY GLUCOSAMINE-CHONDROITIN 68751645223 Active Mariaa Whitamn SIGN LANGUAGE INSTRUCTOR Active NORVASC 10 MG TABS TAKE 1 TAB DAILY AMLODIPINE BESYLATE 21290175089 Active Mariaa Atkinsonum SIGN LANGUAGE INSTRUCTOR Active BENAZEPRIL HCL 40 MG TABS 1 PO BID BENAZEPRIL HCL 01621746166 Active Mariaa Whitman SIGN LANGUAGE INSTRUCTOR Active LOVASTATIN 20 MG TABS 1 PO Q HS FOR CHOLESTEROL LOVASTATIN 92979300430 Active Mariaa Whitman SIGN LANGUAGE INSTRUCTOR Active RANITIDINE HCL 150 MG CAPS 1 PO Q 12 HRS RANITIDINE HCL 80519387881 Active Mariaa Whitman SIGN LANGUAGE INSTRUCTOR Active ALENDRONATE SODIUM 70 MG TABS TAKE 1 TAB ONCE A WEEK ALENDRONATE SODIUM 70 MG TABS 662667 ALENDRONATE SODIUM Inactive ADULT ASPIRIN EC LOW STRENGTH 81 MG TBEC TAKE 1 TAB DAILY ADULT ASPIRIN EC LOW STRENGTH 81 MG TBEC 406598 ASPIRIN Inactive AMOXICILLIN 500 MG CAP 1 tab by mouth 3 times daily AMOXICILLIN 500 MG CAP 058451 AMOXICILLIN Inactive BACTRIM DS 800-160 MG TABS 1 pill by mouth twice daily, for UTI BACTRIM DS 800-160 MG TABS 239064 SULFAMETHOXAZOLE-TRIMETHOPRIM Inactive Advance Directives Directive Description Start [...] ... - Chemistry sodium, serum 132 mmol/L 553-386 9790/04/20 carbon dioxide, venous blood 31.3 mmol/L 21.0-32.0 [...] 1.41 ng/dL 0.76-1.46 cholesterol, serum 166 mg/dL 443-619 5451/04/20 triglyceride, serum, fasting 68 mg/dL 30-200 HDL [...] 5.0-8.5 Encounters Code Encounter Date Provider Facility CPT-99658 Level 4 Est. Patient 15:07:54 CDT Mariaa Whitman [facility]-47446 Level 3 Est. Patient 20:45:54 COMMERCIAL COUNSEL Mariaa Whitman [facility] CPT-64178 Level 3 Est. Patient 12:16:16 CDT Ana Cristina Vallejo MD [facility]-50874 Level 4 Est. Patient 12:49:21 CDT Ana Cristina Vallejo MD [facility] CPT-99377 Level 4 Est. Patient 23:02:25 CDT Ana Cristina Vallejo MD [facility] CPT-67966 Level 4 Est. Patient 19:26:33 COMMERCIAL COUNSEL Ana Cristina Vallejo MD [facility]-69185 Level 4 Est. Patient 11:28:14 CDT Ana Cristina Vallejo MD [facility] CPT-23609 Level 4 Est. Patient 15:35:46 COMMERCIAL COUNSEL Ana Cristina Vallejo MD [facility] [place] Level 3 Est. Patient 21:06:39 COMMERCIAL COUNSEL Alden Kim MD [facility]-24728 Level 4 Est. Patient 15:30:54 COMMERCIAL COUNSEL Ana Cristina Vallejo MD [facility] Procedures Code Procedure Name Date Entry Date Standard Description CPT-TCMM Transitional Care Mgmt-Moderate 18:08:16 CDT CPT-22172 Bone Density 09:14:12 CDT CPT-000 Give Appropriate Flu Vaccine 14:51:52 CDT CPT-72125 Fluzone High Dose (>=65 yrs.) 15:19:23 CDT CPT-11447 Immunization Single Admin 15:19:23 CDT CPT-99314 Prevnar 15:40:03 CDT CPT-42139 Administration single or combination vaccine inc oral 15 :40:03 CDT CPT-17502 Prevnar 13:55:07 CDT CPT-G0008 Administration of Influenza Virus Vaccine 10:49:51 CDT CPT-55184 Fluzone High-Dose Intramuscular Suspension 10:49:51 CDT CPT-23378 Knee 3V 13:31:37 CDT CPT-01859 Bone Density 09:07:05 COMMERCIAL COUNSEL CPT-91378 Nail Avulsion 09:46:05 CDT CPT-20764 Administration single or combination vaccine inc oral 16 :11:54 CDT CPT-98475 Influenza High Dose age 65+ 16:11:54 CDT CPT-45258 Administration single or combination vaccine inc oral 10 :53:15 CDT CPT-18766 Influenza High Dose age 65+ 10:53:15 CDT CPT-52364 Bone Density 14:50:58 COMMERCIAL COUNSEL CPT-64030 Administration single or combination vaccine inc oral 15 :41:20 COMMERCIAL COUNSEL CPT-14234 Zoster Vaccine (Zostavax) 15:41:20 COMMERCIAL COUNSEL CPT-04910 Spec Collection and Handling Fee 11:18:25 COMMERCIAL COUNSEL CPT-44828 Administration single or combination vaccine inc oral 11 :14:20 CDT CPT-33242 Influenza High Dose age 65+ 11:14:20 CDT
--- OUTSIDE RECORDS SUMMARY | 2017-07-18 09:26 | XMS REPORT | Clinical Summary ---
Author Author Admin, DANDRE Organization [facility] [employer] Address Unknown Phone Unavailable Allergies, Adverse Reactions, Alerts Allergy Name Reaction Description Start Date Severity Status Provider NKDA Critical Active Mariaa Whitman COMMERCIAL FINANCE ANALYST Conditions or Problems Problem Name Problem [...] 1 daily, for vitamin D deficiency CHOLECALCIFEROL 94285578218 No Longer Active Radha Jones APRN Active CIPRO 250 MG ORAL TABLET 1 tab BID for 7 days CIPROFLOXACIN HCL 72696045762 No Longer Active Radha Jones APRN Active VITAMIN D3 2000 UNIT ORAL CAPSULE 1 capsule po daily CHOLECALCIFEROL 42866424317 Active HEDY Esquivel Active EQL ONE DAILY WOMENS ORAL TABLET 1 po daily MULTIPLE VITAMINS- CALCIUM 23356682590 Active HEDY Esquivel Active MACROBID 100 MG ORAL CAPSULE 1 tab BID for 5 days NITROFURANTOIN MONOHYD MACRO 48270411020 No Longer Active Deepti Junior LPN Active HYDROCHLOROTHIAZIDE 12.5 MG ORAL CAPSULE 1 pill by mouth daily HYDROCHLOROTHIAZIDE 33730077436 Active Jalil Hayes MD Active RANITIDINE HCL 150 MG ORAL CAPSULE once nightly RANITIDINE HCL 58577210194 Active Jalil Hayes MD Active BENAZEPRIL HCL 40 MG ORAL TABLET 1 daily for blood pressure BENAZEPRIL HCL 72667939172 Active Jalil Hayes MD Active HYDROCHLOROTHIAZIDE 12.5 MG ORAL CAPSULE 1 pill by mouth daily, for blood pressure HYDROCHLOROTHIAZIDE 73550309553 No Longer Active Jalil Hayes MD Active AUGMENTIN 875-125 MG ORAL TABLET 1 po BID x 7 days AMOXICILLIN-POT CLAVULANATE 28683803235 No Longer Active Jalil Hayes MD Active OMEPRAZOLE 40 MG ORAL CAPSULE DELAYED RELEASE 1 po q a.m. OMEPRAZOLE 49779624852 Active Peggy Pardo LPN Active MIRALAX ORAL PACKET Takes daily prn POLYETHYLENE GLYCOL 3350 87364151442 No Longer Active Peggy Pardo LPN Active FLONASE ALLERGY RELIEF 50 MCG/ACT NASAL SUSPENSION One spray each nostril daily for allergies FLUTICASONE PROPIONATE 67270192679 No Longer Active Peggy Pardo LPN Active BENADRYL ALLERGY 25 MG ORAL TABLET NEEDED DIPHENHYDRAMINE HCL 47565934584 No Longer Active Peggy Pardo LPN Active ADVIL 200 MG ORAL TABLET TAKE NEEDED IBUPROFEN 55264723423 No Longer Active Peggy Pardo LPN Active COLACE 100 MG ORAL CAPSULE 1 po BID PRN Constipation DOCUSATE SODIUM 76058000673 No Longer Active Deepti Junior LPN Active ALPRAZOLAM 0.25 MG ORAL TABLET 1/2-1 tablet by mouth twice a day as needed for stress ALPRAZOLAM 36630319243 No Longer Active Deepti Hamlinjaja HORVATH Active ALENDRONATE SODIUM 70 MG ORAL TABLET 1 pill by mouth weekly for osteoporosis ALENDRONATE SODIUM 12917695796 Active Mariaa Laudee LUGO Active E-1000 1000 UNIT ORAL CAPSULE Take one by mouth daily VITAMIN E 49911368903 Active HEDY Esquivel Active OSCAL 500/200 D-3 500-200 MG-UNIT ORAL TABLET Take one by mouth 3 times daily , morning, afternoon and evening.] CALCIUM CARBONATE-VITAMIN D 01691212279 Active HEDY Esquivel Active ASPIRIN 81 MG ORAL TABLET CHEWABLE 1 tablet by mouth daily ASPIRIN 47207143616 Active HEDY Esquivel Active ADULT ASPIRIN EC LOW STRENGTH 81 MG ORAL TABLET DELAYED RELEASE TAKE 1 TAB DAILY ASPIRIN 29888416179 No Longer Active Mariaa Laudee LUGO Active ALENDRONATE SODIUM 70 MG ORAL TABLET TAKE 1 TAB ONCE A WEEK 01/20 ALENDRONATE SODIUM 99842238724 No Longer Active Mariaa Atkinsonbeckie LUGO Active CETIRIZINE HCL 10 MG ORAL TABLET 1 po qd PRN Allergies CETIRIZINE HCL 06383217930 Active HEDY Esquivel Active BACTRIM DS 800-160 MG ORAL TABLET 1 pill by mouth twice daily, for UTI 01/29 SULFAMETHOXAZOLE-TRIMETHOPRIM 37130541370 No Longer Active Ana Cristina Vallejo MD PhD Active CARVEDILOL 25 MG ORAL TABLET 1 pill by mouth twice daily for blood pressure CARVEDILOL 43783752422 Active Aneta Bailey LPN Active SYNTHROID 88 MCG ORAL TABLET 1 tablet by mouth daily for thyroid LEVOTHYROXINE SODIUM 10962012834 Active HEDY Esquivel Active AMOXICILLIN 500 MG ORAL CAPSULE 1 tab by mouth 3 times daily 2011 AMOXICILLIN 52817223877 No Longer Active Alden Kim MD Active CALCIUM 500 MG ORAL TABLET TAKE 3 TABS DAILY CALCIUM 52480030500 No Longer Active Mariaa Whitman COMMERCIAL FINANCE ANALYST Active MULTIVITAMINS TABS TAKE 1 TAB DAILY MULTIPLE VITAMIN No Longer Active Anetajeannie Tavarezum WHEEL POLISHER Active TYLENOL 325 MG ORAL TABLET NEEDED ACETAMINOPHEN 98949472615 Active Aneta Tavarezum WHEEL POLISHER Active GLUCOSAMINE-CHONDROITIN 500-400 MG ORAL TABLET TAKE 1 TAB DAILY GLUCOSAMINE-CHONDROITIN 10722992485 Active Aneta Tavarezum WHEEL POLISHER Active NORVASC 10 MG ORAL TABLET TAKE 1 TAB DAILY AMLODIPINE BESYLATE 62946538550 Active Aneta Tavarezum WHEEL POLISHER Active LOVASTATIN 20 MG ORAL TABLET 1 PO Q HS FOR CHOLESTEROL LOVASTATIN 85527120411 Active HEDY Esquivel Active ALENDRONATE SODIUM 70 MG ORAL TABLET TAKE 1 TAB ONCE A WEEK 01/20 ALENDRONATE SODIUM 70 MG ORAL TABLET 768760 ALENDRONATE SODIUM Inactive ADULT ASPIRIN EC LOW STRENGTH 81 MG ORAL TABLET DELAYED RELEASE TAKE 1 TAB DAILY ADULT ASPIRIN EC LOW STRENGTH 81 MG ORAL TABLET DELAYED RELEASE 712788 ASPIRIN Inactive ALPRAZOLAM 0.25 MG ORAL TABLET 1/2-1 tablet by mouth twice a day as needed for stress ALPRAZOLAM 0.25 MG ORAL TABLET 179546 ALPRAZOLAM Inactive COLACE 100 MG ORAL CAPSULE 1 po BID PRN Constipation COLACE 100 MG ORAL CAPSULE 5141329 DOCUSATE SODIUM Inactive ADVIL 200 MG ORAL TABLET TAKE NEEDED ADVIL 200 MG ORAL TABLET 058524 IBUPROFEN Inactive BENADRYL ALLERGY 25 MG ORAL TABLET NEEDED BENADRYL ALLERGY 25 MG ORAL TABLET 8099084 DIPHENHYDRAMINE HCL Inactive FLONASE ALLERGY RELIEF 50 MCG/ACT NASAL SUSPENSION One spray each nostril daily for allergies FLONASE ALLERGY RELIEF 50 MCG/ACT NASAL SUSPENSION 6325165 FLUTICASONE PROPIONATE Inactive MIRALAX ORAL PACKET Takes daily prn MIRALAX ORAL PACKET 246199 POLYETHYLENE GLYCOL 3350 Inactive AUGMENTIN 875-125 MG ORAL TABLET 1 po BID x 7 days AUGMENTIN 875-125 MG ORAL TABLET 946781 AMOXICILLIN-POT CLAVULANATE Inactive HYDROCHLOROTHIAZIDE 12.5 MG ORAL CAPSULE 1 pill by mouth daily, for blood pressure HYDROCHLOROTHIAZIDE 12.5 MG ORAL CAPSULE HYDROCHLOROTHIAZIDE Inactive CIPRO 250 MG ORAL TABLET 1 tab BID for 7 days CIPRO 250 MG ORAL TABLET 221159 CIPROFLOXACIN HCL Inactive VITAMIN D3 2000 UNIT ORAL TABLET 1 daily, for vitamin D deficiency VITAMIN D3 2000 UNIT ORAL TABLET CHOLECALCIFEROL Inactive AMOXICILLIN 500 MG ORAL CAPSULE 1 tab by mouth 3 times daily 2011 AMOXICILLIN 500 MG ORAL CAPSULE 915050 AMOXICILLIN Inactive BACTRIM DS 800-160 MG ORAL TABLET 1 pill by mouth twice daily, for UTI 01/29 BACTRIM DS 800-160 MG ORAL TABLET 327757 SULFAMETHOXAZOLE- TRIMETHOPRIM Inactive MACROBID 100 MG ORAL CAPSULE 1 tab BID for 5 days MACROBID 100 MG ORAL CAPSULE 4506875 NITROFURANTOIN MONOHYD MACRO Inactive Advance Directives Directive [...] Panel - Chemistry sodium, serum 132 mmol/L 806-177 4807/08/09 potassium, serum 4.2 mmol/L 3.5-5.2 chloride, serum 99 mmol/L 98-107 carbon dioxide, venous blood 24.7 mmol/L 21.0-32.0 blood glucose 119 mg/dL 65-110 calcium, serum 8.5 mg/dL 8.5-10.1 urea nitrogen, blood 14 mg/dL 7-18 creatinine, serum 1.16 mg/dL 0.60-1.30 Lab Report: CBC-QUEST, COMPREHENSIVE METABOLIC PANEL, LIPID PANEL, Micro ... - Chemistry cholesterol, serum 162 mg/dL 870-786 0309/05/01 HDL cholesterol, serum 68 mg/dL > OR=46 [...] % 11.0-15.0 platelet count 297 THOUSAND/UL 10*3/mm3 995-742 2583/05/01 mean platelet volume 8.9 fL 7.5-12.5 Lab [...] 5.0-8.5 Encounters Code Encounter Date Provider Facility [facility]-38155 Level 3 Est. Patient 13:55:49 CDT Jalil Hayes MD [facility]-69890 Level 3 Est. Patient 14:38:15 CDT Jalil Hayes MD [facility] [place] Level 4 Est. Patient 14:40:54 CDT Bee Rosas [facility]-03800 Level 4 Est. Patient 10:31:15 CDT Jalil Hayes MD [facility]-43911 Level 4 Est. Patient 15:07:54 CDT Mariaa Whitman [facility]-19143 Level 3 Est. Patient 20:45:54 BAT PERSON Mariaa Whitman [facility] CPT-37395 Level 3 Est. Patient 12:16:16 CDT Ana Cristina Vallejo MD [facility]-33208 Level 4 Est. Patient 12:49:21 CDT Ana Cristina Vallejo MD [facility] Level 4 Est. Patient 23:02:25 CDT Ana Cristina Vallejo MD [facility] Level 4 Est. Patient 19:26:33 BAT PERSON Ana Cristina Vallejo MD PhD [facility] CPT-59604 Level 4 Est. Patient 11:28:14 CDT Ana Cristina Vallejo MD PhD [facility] CPT-54545 Level 4 Est. Patient 15:35:46 BAT PERSON Ana Cristina Vallejo MD PhD [facility] CPT-32743 Level 3 Est. Patient 21:06:39 BAT PERSON Alden Kim MD [facility] CPT-33180 Level 4 Est. Patient 15:30:54 BAT PERSON Ana Cristina Vallejo MD PhD [facility] Procedures Code Procedure Name Date Entry Date Standard Description CPT-G0439 Subsequent Annual Wellness Exam 11:53:01 BAT PERSON CPT-16174 First Vx - Ix admin for Medicare patients 13:35:01 CDT CPT-99699 Fluzone High-Dose Intramuscular Suspension 13:35:01 CDT CPT-TCMM Transitional Care Mgmt-Moderate 14:41:55 CDT CPT-47590 EKG Trac and Interp - XRAY USE ONLY 10:35:11 CDT 09/11 CPT-88549 Chest 2V Frontal and Lat - XRAY USE ONLY 10:35:11 CDT CPT-G0438 Initial Annual Wellness Exam 14:54:07 CDT CPT-G0009 Administration of Pneumococcal Vaccine 14:44:24 CDT CPT-68013 Pneumovax 23 Injection Injectable 25 MCG/0.5ML 14:44:24 CDT CPT-09376 First Vx - Ix admin for Medicare patients 14:44:24 CDT CPT-26658 Fluzone High-Dose Intramuscular Suspension 14:44:20 CDT CPT-78513 BMP - LAB USE ONLY 12:38:06 CDT CPT-01051 Urine Culture - LAB USE ONLY 16:56:33 CDT CPT-TCMM Transitional Care Mgmt-Moderate 18:08:16 CDT CPT-08073 Bone Density 09:14:12 CDT CPT-000 Give Appropriate Flu Vaccine 14:51:52 CDT CPT-64260 Fluzone High Dose (>=65 yrs.) 15:19:23 CDT CPT-47877 Immunization Single Admin 15:19:23 CDT CPT-03380 Prevnar 13 15:40:03 CDT CPT-24864 Administration single or combination vaccine inc oral 15 :40:03 CDT CPT-20225 Prevnar 13 13:55:07 CDT CPT-G0008 Administration of Influenza Virus Vaccine 10:49:51 CDT CPT-51779 Fluzone High-Dose Intramuscular Suspension 10:49:51 CDT CPT-02584 Knee 3V 13:31:37 CDT CPT-39365 Bone Density 09:07:05 BAT PERSON CPT-09516 Nail Avulsion 09:46:05 CDT CPT-82056 Administration single or combination vaccine inc oral 16 :11:54 CDT CPT-41058 Influenza High Dose age 65+ 16:11:54 CDT CPT-76811 Administration single or combination vaccine inc oral 10 :53:15 CDT CPT-23030 Influenza High Dose age 65+ 10:53:15 CDT CPT-25576 Bone Density 14:50:58 BAT PERSON CPT-59401 Administration single or combination vaccine inc oral 15 :41:20 BAT PERSON CPT-45923 Zoster Vaccine (Zostavax) 15:41:20 BAT PERSON CPT-26415 Spec Collection and Handling Fee 11:18:25 BAT PERSON CPT-31830 Administration single or combination vaccine inc oral 11 :14:20 CDT CPT-59859 Influenza High Dose age 65+ 11:14:20 CDT
--- OUTSIDE RECORDS SUMMARY | 2017-07-18 09:27 | XMS REPORT | Clinical Summary ---
Author Author Admin, DANDRE Organization [facility] Address Unknown Phone Unavailable Allergies, Adverse Reactions, Alerts Allergy Name Reaction Description Start Date Severity Status Provider NKDA Critical Active Mariaa Whitman STOGY ROLLER Conditions or Problems Problem Name Problem Code Onset Date Status Entry Date Provider Comment Standard Description Annotate ROUTINE GYNECOLOGICAL EXAMINATION V72.31 Resolved Ana Cristina Vallejo MD PhD Routine gynecological examination MENOPAUSE 627.2 Ruled out Ana Cristina Vallejo MD PhD Symptomatic menopausal or female climacteric states MENOPAUSE 627.2 Active Brianda Reis [facility] Symptomatic menopausal or female climacteric states DIVERTICULOSIS, COLON 562.10 Active Ana Cristina Vallejo MD PhD Diverticulosis of colon (without mention of hemorrhage) HIATAL HERNIA 553.3 Active Ana Cristina Valleoj MD PhD Diaphragmatic hernia without mention of [...] ORAL CAPSULE 1 capsule po daily CHOLECALCIFEROL 97959294551 Active HEDY Esquivel Active VITAMIN D3 2000 UNIT TABS 1 daily, for vitamin D deficiency CHOLECALCIFEROL 01565628719 Active HEDY Esquivel Active EQL ONE DAILY WOMENS ORAL TABLET 1 po daily MULTIPLE VITAMINS- CALCIUM 58242309204 Active HEDY Esquivel Active CIPRO 250 MG ORAL TABS 1 tab BID for 7 days CIPROFLOXACIN HCL 46831266654 Active Deepti Junior LPN Active MACROBID 100 MG ORAL CAPS 1 tab BID for 5 days NITROFURANTOIN MONOHYD MACRO 64068698555 No Longer Active Deepti Junior LPN Active HYDROCHLOROTHIAZIDE 12.5 MG CAPS 1 pill by mouth daily HYDROCHLOROTHIAZIDE 19725069196 Active Jalil Hayes MD Active RANITIDINE HCL 150 MG CAPS once nightly RANITIDINE HCL 47419891602 Active Jalil Hayes MD Active BENAZEPRIL HCL 40 MG TABS 1 daily for blood pressure BENAZEPRIL HCL 05480735888 Active Jalil Hayes MD Active HYDROCHLOROTHIAZIDE 12.5 MG CAPS 1 pill by mouth daily, for blood pressure HYDROCHLOROTHIAZIDE 78437598342 No Longer Active Jalil Hayes MD Active AUGMENTIN 875-125 MG TAB 1 po BID x 7 days AMOXICILLIN-POT CLAVULANATE 41270931815 No Longer Active Jalil Hayes MD Active OMEPRAZOLE 40 MG CPDR 1 po q a.m. OMEPRAZOLE 05879731320 Active Peggy Pardo LPN Active MIRALAX ORAL PACK Takes daily prn POLYETHYLENE GLYCOL 3350 50548047930 No Longer Active Peggy Pardo LPN Active FLONASE ALLERGY RELIEF 50 MCG/ACT NASAL SUSP One spray each nostril daily for allergies FLUTICASONE PROPIONATE 14890983940 No Longer Active Peggy Pardo LPN Active BENADRYL ALLERGY 25 MG TABS NEEDED DIPHENHYDRAMINE HCL 39306753089 No Longer Active Peggy Pardo LPN Active ADVIL 200 MG TABS TAKE NEEDED IBUPROFEN 49503986723 No Longer Active Peggy Pardo LPN Active COLACE 100 MG CAP 1 po BID PRN Constipation DOCUSATE SODIUM 83507415550 No Longer Active Deepti Junior LPN Active ALPRAZOLAM 0.25 MG TAB 1/2-1 tablet by mouth twice a day as needed for stress ALPRAZOLAM 85660720701 No Longer Active Deepti Junior LPN Active ALENDRONATE SODIUM 70 MG TABS 1 pill by mouth weekly for osteoporosis ALENDRONATE SODIUM 68668056464 Active Mariaa Whitman APRN Active E-1000 1000 UNIT ORAL CAPS Take one by mouth daily VITAMIN E 25301438381 Active HEDY Esquivel Active OSCAL 500/200 D-3 500-200 MG-UNIT ORAL TABS Take one by mouth 3 times daily, morning, afternoon and evening.] CALCIUM CARBONATE-VITAMIN D 05516558360 Active HEDY Esquivel Active ASPIRIN 81 MG CHEW TAB 1 tablet by mouth daily ASPIRIN 94122859071 Active HEDY Esquivel Active ADULT ASPIRIN EC LOW STRENGTH 81 MG TBEC TAKE 1 TAB DAILY ASPIRIN 51379566133 No Longer Active Mariaa Whitman APRN Active ALENDRONATE SODIUM 70 MG TABS TAKE 1 TAB ONCE A WEEK ALENDRONATE SODIUM 44416844847 No Longer Active Mariaa Whitman APRN Active CETIRIZINE HCL 10 MG ORAL TABS 1 po qd PRN Allergies CETIRIZINE HCL 68763592969 Active HEDY Esquivel Active BACTRIM DS 800-160 MG TABS 1 pill by mouth twice daily, for UTI SULFAMETHOXAZOLE-TRIMETHOPRIM 44504849601 No Longer Active Ana Cristina Vallejo MD PhD Active CARVEDILOL 25 MG TABS 1 pill by mouth twice daily for blood pressure CARVEDILOL 17502393928 Active HEDY Esquivel Active SYNTHROID 0.088 MG TAB 1 tablet by mouth daily for thyroid LEVOTHYROXINE SODIUM 00490360293 Active HEDY Esquivel Active AMOXICILLIN 500 MG CAP 1 tab by mouth 3 times daily AMOXICILLIN 40668153429 No Longer Active Alden Kim MD Active CALCIUM 500 MG TABS TAKE 3 TABS DAILY CALCIUM 23686759949 No Longer Active Mariaa Whitman APRN Active MULTIVITAMINS TABS TAKE 1 TAB DAILY MULTIPLE VITAMIN No Longer Active Aneta Bailey LPN Active TYLENOL 325 MG TABS NEEDED ACETAMINOPHEN 06738059565 Active Aneta D Leo CHEMIST ENZYMES Active GLUCOSAMINE-CHONDROITIN 500-400 MG TABS TAKE 1 TAB DAILY GLUCOSAMINE-CHONDROITIN 75918880776 Active Mariaa Whitman STOGY ROLLER Active NORVASC 10 MG TABS TAKE 1 TAB DAILY AMLODIPINE BESYLATE 96545993463 Active HEDY Esquivel Active LOVASTATIN 20 MG TABS 1 PO Q HS FOR CHOLESTEROL LOVASTATIN 42170294467 Active HEDY Esquivel Active ALENDRONATE SODIUM 70 MG TABS TAKE 1 TAB ONCE A WEEK ALENDRONATE SODIUM 70 MG TABS 316692 ALENDRONATE SODIUM Inactive ADULT ASPIRIN EC LOW STRENGTH 81 MG TBEC TAKE 1 TAB DAILY ADULT ASPIRIN EC LOW STRENGTH 81 MG TBEC 613364 ASPIRIN Inactive ALPRAZOLAM 0.25 MG TAB 1/2-1 tablet by mouth twice a day as needed for stress ALPRAZOLAM 0.25 MG TAB 826367 ALPRAZOLAM Inactive COLACE 100 MG CAP 1 po BID PRN Constipation COLACE 100 MG CAP 9083222 DOCUSATE SODIUM Inactive ADVIL 200 MG TABS TAKE NEEDED ADVIL 200 MG TABS 903931 IBUPROFEN Inactive BENADRYL ALLERGY 25 MG TABS NEEDED BENADRYL ALLERGY 25 MG TABS 5444988 DIPHENHYDRAMINE HCL Inactive FLONASE ALLERGY RELIEF 50 MCG/ACT NASAL SUSP One spray each nostril daily for allergies FLONASE ALLERGY RELIEF 50 MCG/ACT NASAL SUSP 1742488 FLUTICASONE PROPIONATE Inactive MIRALAX ORAL PACK Takes daily prn MIRALAX ORAL PACK 105395 POLYETHYLENE GLYCOL 3350 Inactive AUGMENTIN 875-125 MG TAB 1 po BID x 7 days AUGMENTIN 875-125 MG TAB 243597 AMOXICILLIN-POT CLAVULANATE Inactive HYDROCHLOROTHIAZIDE 12.5 MG CAPS 1 pill by mouth daily, for blood pressure HYDROCHLOROTHIAZIDE 12.5 MG CAPS 348294 HYDROCHLOROTHIAZIDE Inactive AMOXICILLIN 500 MG CAP 1 tab by mouth 3 times daily AMOXICILLIN 500 MG CAP 789824 AMOXICILLIN Inactive BACTRIM DS 800-160 MG TABS 1 pill by mouth twice daily, for UTI BACTRIM DS 800-160 MG TABS 139829 SULFAMETHOXAZOLE-TRIMETHOPRIM Inactive MACROBID 100 MG ORAL CAPS 1 tab BID for 5 days MACROBID 100 MG ORAL CAPS 6836869 NITROFURANTOIN MONOHYD MACRO Inactive Advance Directives Directive [...] Panel - Chemistry sodium, serum 130 mmol/L 762-624 4155/10/19 potassium, serum 3.5 mmol/L 3.5-5.2 chloride, serum 92 mmol/L 98-107 carbon dioxide, venous blood 33.6 mmol/L 21.0-32.0 blood glucose 118 mg/dL 65-110 calcium, serum 8.8 mg/dL 8.5-10.1 urea nitrogen, blood 11 mg/dL 7-18 creatinine, serum 1.12 mg/dL 0.55-1.30 sodium, serum 132 mmol/L 555-535 3721/08/09 potassium, serum 4.2 mmol/L 3.5-5.2 chloride, serum 99 mmol/L 98-107 carbon dioxide, venous blood 24.7 mmol/L 21.0-32.0 blood glucose 119 mg/dL 65-110 calcium, serum 8.5 mg/dL 8.5-10.1 urea nitrogen, blood 14 mg/dL 7-18 creatinine, serum 1.16 mg/dL 0.60-1.30 Lab Report: CBC-QUEST, COMPREHENSIVE METABOLIC PANEL, LIPID PANEL, Micro ... - Chemistry cholesterol, serum 162 mg/dL 355-854 5272/05/01 HDL cholesterol, serum 68 mg/dL > OR=46 [...] % 11.0-15.0 platelet count 297 THOUSAND/UL 10*3/mm3 313-193 2083/05/01 mean platelet volume 8.9 fL 7.5-12.5 Lab [...] 5.0-8.5 Encounters Code Encounter Date Provider Facility [facility]-[id number] Level 3 Est. Patient 13:55:49 CDT Jalil Hayes MD [facility]15813 Level 3 Est. Patient 14:38:15 CDT Jalil Hayes MD [facility]78179 Level 4 Est. Patient 14:40:54 CDT Bee Rosas [facility]70836 Level 4 Est. Patient 10:31:15 CDT aJlil Hayes MD [facility]79123 Level 4 Est. Patient 15:07:54 CDT aMriaa Whitman [facility]37029 Level 3 Est. Patient 20:45:54 TELEPHONE INTERCEPTOR OPERATOR Mariaa Whitman [facility]66153 Level 3 Est. Patient 12:16:16 CDT Ana Cristina Vallejo MD [facility]76373 Level 4 Est. Patient 12:49:21 CDT Ana Cristina Vallejo MD [facility]16542 Level 4 Est. Patient 23:02:25 CDT Ana Cristina Vallejo MD [facility]14403 Level 4 Est. Patient 19:26:33 TELEPHONE INTERCEPTOR OPERATOR Ana Cristina Vallejo MD [facility]35755 Level 4 Est. Patient 11:28:14 CDT Ana Cristina Vallejo MD PhD [facility] CPT-44382 Level 4 Est. Patient 15:35:46 TELEPHONE INTERCEPTOR OPERATOR Ana Cristina Vallejo MD PhD [facility] CPT-74855 Level 3 Est. Patient 21:06:39 TELEPHONE INTERCEPTOR OPERATOR Alden Kim MD [facility] CPT-37371 Level 4 Est. Patient 15:30:54 TELEPHONE INTERCEPTOR OPERATOR Ana Cristina Vallejo MD PhD [facility] Procedures Code Procedure Name Date Entry Date Standard Description CPT-99010 First Vx - Ix admin for Medicare patients 13:35:01 CDT CPT-03858 Fluzone High-Dose Intramuscular Suspension 13:35:01 CDT CPT-TCMM Transitional Care Mgmt-Moderate 14:41:55 CDT CPT-18405 EKG Trac and Interp - XRAY USE ONLY 10:35:11 CDT 09/11 CPT-33036 Chest 2V Frontal and Lat - XRAY USE ONLY 10:35:11 CDT CPT-G0438 Initial Annual Wellness Exam 14:54:07 CDT CPT-G0009 Administration of Pneumococcal Vaccine 14:44:24 CDT CPT-54023 Pneumovax 23 Injection Injectable 25 MCG/0.5ML 14:44:24 CDT CPT-65923 First Vx - Ix admin for Medicare patients 14:44:24 CDT CPT-98435 Fluzone High-Dose Intramuscular Suspension 14:44:20 CDT CPT-95336 BMP - LAB USE ONLY 12:38:06 CDT CPT-96723 Urine Culture - LAB USE ONLY 16:56:33 CDT CPT-TCMM Transitional Care Mgmt-Moderate 18:08:16 CDT CPT-80579 Bone Density 09:14:12 CDT CPT-000 Give Appropriate Flu Vaccine 14:51:52 CDT CPT-44377 Fluzone High Dose (>=65 yrs.) 15:19:23 CDT CPT-03767 Immunization Single Admin 15:19:23 CDT CPT-05747 Prevnar 13 15:40:03 CDT CPT-36334 Administration single or combination vaccine inc oral 15 :40:03 CDT CPT-59957 Prevnar 13:55:07 CDT CPT-G0008 Administration of Influenza Virus Vaccine 10:49:51 CDT CPT-18867 Fluzone High-Dose Intramuscular Suspension 10:49:51 CDT CPT-12429 Knee 3V 13:31:37 CDT CPT-82280 Bone Density 09:07:05 TELEPHONE INTERCEPTOR OPERATOR CPT-53689 Nail Avulsion 09:46:05 CDT CPT-44973 Administration single or combination vaccine inc oral 16 :11:54 CDT CPT-83000 Influenza High Dose age 65+ 16:11:54 CDT CPT-79184 Administration single or combination vaccine inc oral 10 :53:15 CDT CPT-22462 Influenza High Dose age 65+ 10:53:15 CDT CPT-67844 Bone Density 14:50:58 TELEPHONE INTERCEPTOR OPERATOR CPT-09301 Administration single or combination vaccine inc oral 15 :41:20 TELEPHONE INTERCEPTOR OPERATOR CPT-60137 Zoster Vaccine (Zostavax) 15:41:20 TELEPHONE INTERCEPTOR OPERATOR CPT-58767 Spec Collection and Handling Fee 11:18:25 TELEPHONE INTERCEPTOR OPERATOR CPT-80535 Administration single or combination vaccine inc oral 11 :14:20 CDT CPT-68887 Influenza High Dose age 65+ 11:14:20 CDT
--- OUTSIDE RECORDS SUMMARY | 2017-07-18 09:28 | XMS REPORT | Clinical Summary ---
Author Author Admin, DANDRE Organization 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 Conditions or Problems Problem Name Problem Code [...] climacteric states DIVERTICULOSIS, COLON 562.10 Active Ana Cirstina Vallejo MD PhD Diverticulosis of colon (without [...] nail HEALTH SCREENING V70.0 Resolved Ana Cristina aVllejo MD PhD Routine general medical examination at [...] 1 daily for blood pressure BENAZEPRIL HCL 55810377053 Active Jalil Hayes MD Active HYDROCHLOROTHIAZIDE 12.5 MG CAPS 1 pill by mouth daily, for blood pressure HYDROCHLOROTHIAZIDE 89455381217 No Longer Active Jalil Hayes MD Active AUGMENTIN 875-125 MG TAB 1 po BID x 7 days AMOXICILLIN-POT CLAVULANATE 41546844241 No Longer Active Jalil Hayes MD Active OMEPRAZOLE 40 MG CPDR 1 po q a.m. OMEPRAZOLE 94806255592 Active Peggy Pardo LPN Active MIRALAX ORAL PACK Takes daily prn POLYETHYLENE GLYCOL 3350 71283782458 No Longer Active Peggy Pardo LPN Active FLONASE ALLERGY RELIEF 50 MCG/ACT NASAL SUSP One spray each nostril daily for allergies FLUTICASONE PROPIONATE 18787554012 No Longer Active Peggy Pardo LPN Active BENADRYL ALLERGY 25 MG TABS NEEDED DIPHENHYDRAMINE HCL 20246125073 No Longer Active Peggy Pardo LPN Active ADVIL 200 MG TABS TAKE NEEDED IBUPROFEN 30363276788 No Longer Active Peggy Edvin, EXPLOSIVES TRUCK DRIVER Active COLACE 100 MG CAP 1 po BID PRN Constipation DOCUSATE SODIUM 44171228601 No Longer Active Deeptitayler Junior LPN Active ALPRAZOLAM 0.25 MG TAB 1/2-1 tablet by mouth twice a day as needed for stress ALPRAZOLAM 57562511320 No Longer Active Deepti Sandi ANGUIANON Active ALENDRONATE SODIUM 70 MG TABS 1 pill by mouth weekly for osteoporosis ALENDRONATE SODIUM 57251037085 Active Briandahelen Reis Robin Active E-1000 1000 UNIT ORAL CAPS Take one by mouth daily VITAMIN E 85185323406 Active Brianda Reis Robin Active OSCAL 500/200 D-3 500-200 MG-UNIT ORAL TABS Take one by mouth 3 times daily, morning, afternoon and evening.] CALCIUM CARBONATE-VITAMIN D 98347461218 Active Brianda KNOTT Active ASPIRIN 81 MG CHEW TAB 1 tablet by mouth daily ASPIRIN 11289957327 Active Brianda Reis Robin Active ADULT ASPIRIN EC LOW STRENGTH 81 MG TBEC TAKE 1 TAB DAILY ASPIRIN 49230966545 No Longer Active Mariaa Whitman DESIGNER AND PATTERNMAKER Active ALENDRONATE SODIUM 70 MG TABS TAKE 1 TAB ONCE A WEEK ALENDRONATE SODIUM 57982695455 No Longer Active Mariaa Whitman DESIGNER AND PATTERNMAKER Active CETIRIZINE HCL 10 MG ORAL TABS 1 po qd PRN Allergies CETIRIZINE HCL 31399232780 Active HEDY Esquivel Active BACTRIM DS 800-160 MG TABS 1 pill by mouth twice daily, for UTI SULFAMETHOXAZOLE-TRIMETHOPRIM 58014343146 No Longer Active Ana Cristina Vallejo MD PhD Active CARVEDILOL 25 MG TABS 1 pill by mouth twice daily for blood pressure CARVEDILOL 10089440644 Active HEDY Esquivel Active SYNTHROID 0.088 MG TAB 1 tablet by mouth daily for thyroid LEVOTHYROXINE SODIUM 41689261890 Active HEDY Esquivel Active AMOXICILLIN 500 MG CAP 1 tab by mouth 3 times daily AMOXICILLIN 94557046922 No Longer Active Alden Kim MD Active [facility] VITAMIN D3 1000 UNIT CAPS TAKE 2 CAP DAILY CHOLECALCIFEROL Active Ana Cristina Vallejo MD PhD Active CALCIUM 500 MG TABS TAKE 3 TABS DAILY CALCIUM 12265477815 No Longer Active Mariaa Whitman APRN Active MULTIVITAMINS TABS TAKE 1 TAB DAILY MULTIPLE VITAMIN Active Aneta D Leo EXPLOSIVES TRUCK DRIVER Active TYLENOL 325 MG TABS NEEDED ACETAMINOPHEN 19935277989 Active Aneta Singh Leo EXPLOSIVES TRUCK DRIVER Active GLUCOSAMINE-CHONDROITIN 500-400 MG TABS TAKE 1 TAB DAILY GLUCOSAMINE-CHONDROITIN 03121591052 Active Mariaa Whitman APRN Active NORVASC 10 MG TABS TAKE 1 TAB DAILY AMLODIPINE BESYLATE 77204324861 Active HEDY Esquivel Active LOVASTATIN 20 MG TABS 1 PO Q HS FOR CHOLESTEROL LOVASTATIN 55106776689 Active HEDY Esquivel Active RANITIDINE HCL 150 MG CAPS 1 PO Q 12 HRS RANITIDINE HCL 50644971975 Active HEDY Esquivel Active ALENDRONATE SODIUM 70 MG TABS TAKE 1 TAB ONCE A WEEK ALENDRONATE SODIUM 70 MG TABS 340592 ALENDRONATE SODIUM Inactive ADULT ASPIRIN EC LOW STRENGTH 81 MG TBEC TAKE 1 TAB DAILY ADULT ASPIRIN EC LOW STRENGTH 81 MG TBEC 788990 ASPIRIN Inactive ALPRAZOLAM 0.25 MG TAB 1/2-1 tablet by mouth twice a day as needed for stress ALPRAZOLAM 0.25 MG TAB 843609 ALPRAZOLAM Inactive COLACE 100 MG CAP 1 po BID PRN Constipation COLACE 100 MG CAP 4797616 DOCUSATE SODIUM Inactive ADVIL 200 MG TABS TAKE NEEDED ADVIL 200 MG TABS 178914 IBUPROFEN Inactive BENADRYL ALLERGY 25 MG TABS NEEDED BENADRYL ALLERGY 25 MG TABS 6195096 DIPHENHYDRAMINE HCL Inactive FLONASE ALLERGY RELIEF 50 MCG/ACT NASAL SUSP One spray each nostril daily for allergies FLONASE ALLERGY RELIEF 50 MCG/ACT NASAL SUSP 5394757 FLUTICASONE PROPIONATE Inactive MIRALAX ORAL PACK Takes daily prn MIRALAX ORAL PACK 786972 POLYETHYLENE GLYCOL 3350 Inactive AUGMENTIN 875-125 MG TAB 1 po BID x 7 days AUGMENTIN 875-125 MG TAB 591765 AMOXICILLIN-POT CLAVULANATE Inactive HYDROCHLOROTHIAZIDE 12.5 MG CAPS 1 pill by mouth daily, for blood pressure HYDROCHLOROTHIAZIDE 12.5 MG CAPS 827534 HYDROCHLOROTHIAZIDE Inactive AMOXICILLIN 500 MG CAP 1 tab by mouth 3 times daily AMOXICILLIN 500 MG CAP 658615 AMOXICILLIN Inactive BACTRIM DS 800-160 MG TABS 1 pill by mouth twice daily, for UTI BACTRIM DS 800-160 MG TABS 634819 SULFAMETHOXAZOLE-TRIMETHOPRIM Inactive Advance Directives Directive Description Start [...] Panel - Chemistry sodium, serum 130 mmol/L 631-437 0159/10/19 potassium, serum 3.5 mmol/L 3.5-5.2 chloride, serum 92 mmol/L 98-107 carbon dioxide, venous blood 33.6 mmol/L 21.0-32.0 blood glucose 118 mg/dL 65-110 calcium, serum 8.8 mg/dL 8.5-10.1 urea nitrogen, blood 11 mg/dL 7-18 creatinine, serum 1.12 mg/dL 0.55-1.30 Lab Report: CBC-QUEST, COMPREHENSIVE METABOLIC PANEL, LIPID PANEL, Micro ... - Chemistry cholesterol, serum 162 mg/dL 906-474 0251/05/01 HDL cholesterol, serum 68 mg/dL > OR=46 [...] % 11.0-15.0 platelet count 297 THOUSAND/UL 10*3/mm3 579-149 6966/05/01 mean platelet volume 8.9 fL 7.5-12.5 Lab [...] Negative Encounters Code Encounter Date Provider Facility CPT-10715 Level 3 Est. Patient 14:38:15 CDT Jalil Hayes MD [facility] CPT-97633 Level 4 Est. Patient 14:40:54 CDT Bee Rosas [facility] CPT-85495 Level 4 Est. Patient 10:31:15 CDT Jalil Hayes MD [facility]-39474 Level 4 Est. Patient 15:07:54 CDT Mariaa Whitman [facility]-83213 Level 3 Est. Patient 20:45:54 EMPLOYEE COMMUNICATIONS COORDINATOR Mariaa Whitman [facility] CPT-99915 Level 3 Est. Patient 12:16:16 CDT Ana Cristina Vallejo MD [facility]-21706 Level 4 Est. Patient 12:49:21 CDT Ana Cristina Vallejo MD [facility] CPT-22565 Level 4 Est. Patient 23:02:25 CDT [facility] Level 4 Est. Patient 19:26:33 EMPLOYEE COMMUNICATIONS COORDINATOR Ana Cristina Vallejo MD PhD [facility] CPT-40495 Level 4 Est. Patient 11:28:14 CDT Ana Cristina Vallejo MD [facility] CPT-42371 Level 4 Est. Patient 15:35:46 EMPLOYEE COMMUNICATIONS COORDINATOR Ana Cristina Vallejo MD PhD [facility] CPT-68085 Level 3 Est. Patient 21:06:39 EMPLOYEE COMMUNICATIONS COORDINATOR Alden Kim MD [facility] CPT-98167 Level 4 Est. Patient 15:30:54 EMPLOYEE COMMUNICATIONS COORDINATOR Ana Cristina Vallejo MD [facility] Procedures Code Procedure Name Date Entry Date Standard Description CPT-TCMM Transitional Care Mgmt-Moderate 14:41:55 CDT CPT-41356 EKG Trac and Interp - XRAY USE ONLY 10:35:11 CDT 09/11 CPT-74556 Chest 2V Frontal and Lat - XRAY USE ONLY 10:35:11 CDT CPT-G0438 Initial Annual Wellness Exam 14:54:07 CDT CPT-G0009 Administration of Pneumococcal Vaccine 14:44:24 CDT CPT-47048 Pneumovax 23 Injection Injectable 25 MCG/0.5ML 14:44:24 CDT CPT-38669 First Vx - Ix admin for Medicare patients 14:44:24 CDT CPT-01738 Fluzone High-Dose Intramuscular Suspension 14:44:20 CDT CPT-17126 BMP - LAB USE ONLY 12:38:06 CDT CPT-08967 Urine Culture - LAB USE ONLY 16:56:33 CDT CPT-TCMM Transitional Care Mgmt-Moderate 18:08:16 CDT CPT-31460 Bone Density 09:14:12 CDT CPT-000 Give Appropriate Flu Vaccine 14:51:52 CDT CPT-18454 Fluzone High Dose (>=65 yrs.) 15:19:23 CDT CPT-07857 Immunization Single Admin 15:19:23 CDT CPT-31247 Prevnar 13 15:40:03 CDT CPT-59193 Administration single or combination vaccine inc oral 15 :40:03 CDT CPT-30034 Prevnar 13 13:55:07 CDT CPT-G0008 Administration of Influenza Virus Vaccine 10:49:51 CDT CPT-54265 Fluzone High-Dose Intramuscular Suspension 10:49:51 CDT CPT-40585 Knee 3V 13:31:37 CDT CPT-70733 Bone Density 09:07:05 EMPLOYEE COMMUNICATIONS COORDINATOR CPT-92064 Nail Avulsion 09:46:05 CDT CPT-88433 Administration single or combination vaccine inc oral 16 :11:54 CDT CPT-88691 Influenza High Dose age 65+ 16:11:54 CDT CPT-21586 Administration single or combination vaccine inc oral 10 :53:15 CDT CPT-65146 Influenza High Dose age 65+ 10:53:15 CDT CPT-29390 Bone Density 14:50:58 EMPLOYEE COMMUNICATIONS COORDINATOR CPT-85628 Administration single or combination vaccine inc oral 15 :41:20 EMPLOYEE COMMUNICATIONS COORDINATOR CPT-38330 Zoster Vaccine (Zostavax) 15:41:20 EMPLOYEE COMMUNICATIONS COORDINATOR CPT-61857 Spec Collection and Handling Fee 11:18:25 EMPLOYEE COMMUNICATIONS COORDINATOR CPT-17017 Administration single or combination vaccine inc oral 11 :14:20 CDT CPT-51702 Influenza High Dose age 65+ 11:14:20 CDT
--- OUTSIDE RECORDS SUMMARY | 2017-07-18 09:29 | XMS REPORT | Clinical Summary ---
Author Author Admin, DANDRE Organization [facility] Address Unknown Phone Unavailable Allergies, Adverse Reactions, Alerts Allergy Name Reaction Description Start Date Severity Status Provider NKDA Critical Active Mariaa Whitman DISTRICT GAUGER Conditions or Problems Problem Name Problem Code Onset Date Status Entry Date Provider Comment Standard Description Annotate ROUTINE GYNECOLOGICAL EXAMINATION V72.31 Resolved Ana Cristina Vallejo MD PhD Routine gynecological examination MENOPAUSE 627.2 Ruled out Ana Cristina Vallejo MD PhD Symptomatic menopausal or female climacteric states MENOPAUSE 627.2 Active Brianda Reis [facility] Symptomatic menopausal or female climacteric states DIVERTICULOSIS, [...] Radha Jones APRN Personal history of fall INGROWN TOENAIL, INFECTED ICD-703.0 Inactive Ana Cristina [...] 1 daily, for vitamin D deficiency CHOLECALCIFEROL 23025342695 No Longer Active Radha Jones APRN Active CIPRO 250 MG ORAL TABLET 1 tab BID for 7 days CIPROFLOXACIN HCL 34531025212 No Longer Active Radha Jones APRN Active VITAMIN D3 2000 UNIT ORAL CAPSULE 1 capsule po daily CHOLECALCIFEROL 56992893669 Active HEDY Esquivel Active EQL ONE DAILY WOMENS ORAL TABLET 1 po daily MULTIPLE VITAMINS- CALCIUM 94751407738 Active HEDY Esquivel Active MACROBID 100 MG ORAL CAPSULE 1 tab BID for 5 days NITROFURANTOIN MONOHYD MACRO 18071260782 No Longer Active Deepti Junior LPN Active HYDROCHLOROTHIAZIDE 12.5 MG ORAL CAPSULE 1 pill by mouth daily HYDROCHLOROTHIAZIDE 29105353133 Active Jalil Hayes MD Active RANITIDINE HCL 150 MG ORAL CAPSULE once nightly RANITIDINE HCL 82124253533 Active Jalil Hayes MD Active BENAZEPRIL HCL 40 MG ORAL TABLET 1 daily for blood pressure BENAZEPRIL HCL 04815624842 Active Jalil Hayes MD Active HYDROCHLOROTHIAZIDE 12.5 MG ORAL CAPSULE 1 pill by mouth daily, for blood pressure HYDROCHLOROTHIAZIDE 29757646104 No Longer Active Jalil Hayes MD Active AUGMENTIN 875-125 MG ORAL TABLET 1 po BID x 7 days AMOXICILLIN-POT CLAVULANATE 53443426724 No Longer Active Jalil Hayes MD Active OMEPRAZOLE 40 MG ORAL CAPSULE DELAYED RELEASE 1 po q a.m. OMEPRAZOLE 71426177205 Active Peggy Pardo LPN Active MIRALAX ORAL PACKET Takes daily prn POLYETHYLENE GLYCOL 3350 88588706235 No Longer Active Peggy Pardo LPN Active FLONASE ALLERGY RELIEF 50 MCG/ACT NASAL SUSPENSION One spray each nostril daily for allergies FLUTICASONE PROPIONATE 51455352712 No Longer Active Peggy Pardo LPN Active BENADRYL ALLERGY 25 MG ORAL TABLET NEEDED DIPHENHYDRAMINE HCL 62082958216 No Longer Active Peggy Pardo LPN Active ADVIL 200 MG ORAL TABLET TAKE NEEDED IBUPROFEN 08529762286 No Longer Active Peggy Pardo LPN Active COLACE 100 MG ORAL CAPSULE 1 po BID PRN Constipation DOCUSATE SODIUM 54619461133 No Longer Active Deepti Junior LPN Active ALPRAZOLAM 0.25 MG ORAL TABLET 1/2-1 tablet by mouth twice a day as needed for stress ALPRAZOLAM 04227817620 No Longer Active Deepti Hamlinjaja HORVATH Active ALENDRONATE SODIUM 70 MG ORAL TABLET 1 pill by mouth weekly for osteoporosis ALENDRONATE SODIUM 62289942529 Active Mariaa Laudee LUGO Active E-1000 1000 UNIT ORAL CAPSULE Take one by mouth daily VITAMIN E 39540254801 Active HEDY Esquivel Active OSCAL 500/200 D-3 500-200 MG-UNIT ORAL TABLET Take one by mouth 3 times daily , morning, afternoon and evening.] CALCIUM CARBONATE-VITAMIN D 08522255644 Active HEDY Esquivel Active ASPIRIN 81 MG ORAL TABLET CHEWABLE 1 tablet by mouth daily ASPIRIN 29847047745 Active HEDY Esquivel Active ADULT ASPIRIN EC LOW STRENGTH 81 MG ORAL TABLET DELAYED RELEASE TAKE 1 TAB DAILY ASPIRIN 82491038984 No Longer Active Mariaa Laudee LUGO Active ALENDRONATE SODIUM 70 MG ORAL TABLET TAKE 1 TAB ONCE A WEEK 01/20 ALENDRONATE SODIUM 56016230595 No Longer Active Mariaa Atkinsonbeckie LUGO Active CETIRIZINE HCL 10 MG ORAL TABLET 1 po qd PRN Allergies CETIRIZINE HCL 52664444858 Active HEDY Esquivel Active BACTRIM DS 800-160 MG ORAL TABLET 1 pill by mouth twice daily, for UTI 01/29 SULFAMETHOXAZOLE-TRIMETHOPRIM 35845024616 No Longer Active Ana Cristina Vallejo MD PhD Active CARVEDILOL 25 MG ORAL TABLET 1 pill by mouth twice daily for blood pressure CARVEDILOL 56937937191 Active Aneta Bailey LPN Active SYNTHROID 88 MCG ORAL TABLET 1 tablet by mouth daily for thyroid LEVOTHYROXINE SODIUM 93495733927 Active HEDY Esquivel Active AMOXICILLIN 500 MG ORAL CAPSULE 1 tab by mouth 3 times daily 2011 AMOXICILLIN 25685678665 No Longer Active Alden Kim MD Active CALCIUM 500 MG ORAL TABLET TAKE 3 TABS DAILY CALCIUM 48907875508 No Longer Active Mariaa Whitman DISTRICT GAUGER Active MULTIVITAMINS TABS TAKE 1 TAB DAILY MULTIPLE VITAMIN No Longer Active Anetajeannie Tavarezum ATMOSPHERIC SCIENTIST Active TYLENOL 325 MG ORAL TABLET NEEDED ACETAMINOPHEN 25466810590 Active Aneta Tavarezum ATMOSPHERIC SCIENTIST Active GLUCOSAMINE-CHONDROITIN 500-400 MG ORAL TABLET TAKE 1 TAB DAILY GLUCOSAMINE-CHONDROITIN 36340450099 Active Aneta Tavarezum ATMOSPHERIC SCIENTIST Active NORVASC 10 MG ORAL TABLET TAKE 1 TAB DAILY AMLODIPINE BESYLATE 66617146835 Active Aneta Tavarezum ATMOSPHERIC SCIENTIST Active LOVASTATIN 20 MG ORAL TABLET 1 PO Q HS FOR CHOLESTEROL LOVASTATIN 28075158142 Active HEDY Esquivel Active ALENDRONATE SODIUM 70 MG ORAL TABLET TAKE 1 TAB ONCE A WEEK 01/20 ALENDRONATE SODIUM 70 MG ORAL TABLET 565529 ALENDRONATE SODIUM Inactive ADULT ASPIRIN EC LOW STRENGTH 81 MG ORAL TABLET DELAYED RELEASE TAKE 1 TAB DAILY ADULT ASPIRIN EC LOW STRENGTH 81 MG ORAL TABLET DELAYED RELEASE 221538 ASPIRIN Inactive ALPRAZOLAM 0.25 MG ORAL TABLET 1/2-1 tablet by mouth twice a day as needed for stress ALPRAZOLAM 0.25 MG ORAL TABLET 932855 ALPRAZOLAM Inactive COLACE 100 MG ORAL CAPSULE 1 po BID PRN Constipation COLACE 100 MG ORAL CAPSULE 0878581 DOCUSATE SODIUM Inactive ADVIL 200 MG ORAL TABLET TAKE NEEDED ADVIL 200 MG ORAL TABLET 289436 IBUPROFEN Inactive BENADRYL ALLERGY 25 MG ORAL TABLET NEEDED BENADRYL ALLERGY 25 MG ORAL TABLET 2354966 DIPHENHYDRAMINE HCL Inactive FLONASE ALLERGY RELIEF 50 MCG/ACT NASAL SUSPENSION One spray each nostril daily for allergies FLONASE ALLERGY RELIEF 50 MCG/ACT NASAL SUSPENSION 6484605 FLUTICASONE PROPIONATE Inactive MIRALAX ORAL PACKET Takes daily prn MIRALAX ORAL PACKET 510431 POLYETHYLENE GLYCOL 3350 Inactive AUGMENTIN 875-125 MG ORAL TABLET 1 po BID x 7 days AUGMENTIN 875-125 MG ORAL TABLET 374596 AMOXICILLIN-POT CLAVULANATE Inactive HYDROCHLOROTHIAZIDE 12.5 MG ORAL CAPSULE 1 pill by mouth daily, for blood pressure HYDROCHLOROTHIAZIDE 12.5 MG ORAL CAPSULE HYDROCHLOROTHIAZIDE Inactive CIPRO 250 MG ORAL TABLET 1 tab BID for 7 days CIPRO 250 MG ORAL TABLET 766337 CIPROFLOXACIN HCL Inactive VITAMIN D3 2000 UNIT ORAL TABLET 1 daily, for vitamin D deficiency VITAMIN D3 2000 UNIT ORAL TABLET CHOLECALCIFEROL Inactive AMOXICILLIN 500 MG ORAL CAPSULE 1 tab by mouth 3 times daily 2011 AMOXICILLIN 500 MG ORAL CAPSULE 061869 AMOXICILLIN Inactive BACTRIM DS 800-160 MG ORAL TABLET 1 pill by mouth twice daily, for UTI 01/29 BACTRIM DS 800-160 MG ORAL TABLET 206068 SULFAMETHOXAZOLE- TRIMETHOPRIM Inactive MACROBID 100 MG ORAL CAPSULE 1 tab BID for 5 days MACROBID 100 MG ORAL CAPSULE 3538182 NITROFURANTOIN MONOHYD MACRO Inactive Advance Directives Directive [...] Panel - Chemistry sodium, serum 132 mmol/L 672-554 8956/08/09 potassium, serum 4.2 mmol/L 3.5-5.2 chloride, serum 99 mmol/L 98-107 carbon dioxide, venous blood 24.7 mmol/L 21.0-32.0 blood glucose 119 mg/dL 65-110 calcium, serum 8.5 mg/dL 8.5-10.1 urea nitrogen, blood 14 mg/dL 7-18 creatinine, serum 1.16 mg/dL 0.60-1.30 Lab Report: CBC-QUEST, COMPREHENSIVE METABOLIC PANEL, LIPID PANEL, Micro ... - Chemistry cholesterol, serum 162 mg/dL 271-069 2426/05/01 HDL cholesterol, serum 68 mg/dL > OR=46 [...] % 11.0-15.0 platelet count 297 THOUSAND/UL 10*3/mm3 247-304 1347/05/01 mean platelet volume 8.9 fL 7.5-12.5 Lab [...] 5.0-8.5 Encounters Code Encounter Date Provider Facility [facility]-[id number] Level 3 Est. Patient 13:55:49 CDT Jalil Hayes MD [facility]-58887 Level 3 Est. Patient 14:38:15 CDT Jalil Hayes MD [facility]09010 Level 4 Est. Patient 14:40:54 CDT Bee Roass [facility]-78317 Level 4 Est. Patient 10:31:15 CDT Jalil Hayes MD [facility]-43853 Level 4 Est. Patient 15:07:54 CDT Mariaa Whitman [facility]-60028 Level 3 Est. Patient 20:45:54 HEADER MACHINE OPERATOR Mariaa Whitman [facility] CPT-11965 Level 3 Est. Patient 12:16:16 CDT Ana Cristina Vallejo MD [facility]-63192 Level 4 Est. Patient 12:49:21 CDT Ana Cristina Vallejo MD [facility]95548 Level 4 Est. Patient 23:02:25 CDT Ana Cristina Vallejo MD [facility]60563 Level 4 Est. Patient 19:26:33 HEADER MACHINE OPERATOR Ana Cristina Vallejo MD PhD [facility] CPT-48073 Level 4 Est. Patient 11:28:14 CDT Ana Cristina Vallejo MD PhD [facility] CPT-14094 Level 4 Est. Patient 15:35:46 HEADER MACHINE OPERATOR Ana Cristina Vallejo MD PhD [facility] CPT-69266 Level 3 Est. Patient 21:06:39 HEADER MACHINE OPERATOR Alden Kim MD [facility] CPT-47925 Level 4 Est. Patient 15:30:54 HEADER MACHINE OPERATOR Ana Cristina Vallejo MD PhD [facility] Procedures Code Procedure Name Date Entry Date Standard Description CPT-G0439 Subsequent Annual Wellness Exam 11:53:01 HEADER MACHINE OPERATOR CPT-79096 First Vx - Ix admin for Medicare patients 13:35:01 CDT CPT-01837 Fluzone High-Dose Intramuscular Suspension 13:35:01 CDT CPT-TCMM Transitional Care Mgmt-Moderate 14:41:55 CDT CPT-85178 EKG Trac and Interp - XRAY USE ONLY 10:35:11 CDT 09/11 CPT-09716 Chest 2V Frontal and Lat - XRAY USE ONLY 10:35:11 CDT CPT-G0438 Initial Annual Wellness Exam 14:54:07 CDT CPT-G0009 Administration of Pneumococcal Vaccine 14:44:24 CDT CPT-30923 Pneumovax 23 Injection Injectable 25 MCG/0.5ML 14:44:24 CDT CPT-30943 First Vx - Ix admin for Medicare patients 14:44:24 CDT CPT-49718 Fluzone High-Dose Intramuscular Suspension 14:44:20 CDT CPT-66004 BMP - LAB USE ONLY 12:38:06 CDT CPT-29764 Urine Culture - LAB USE ONLY 16:56:33 CDT CPT-TCMM Transitional Care Mgmt-Moderate 18:08:16 CDT CPT-65983 Bone Density 09:14:12 CDT CPT-000 Give Appropriate Flu Vaccine 14:51:52 CDT CPT-52038 Fluzone High Dose (>=65 yrs.) 15:19:23 CDT CPT-38910 Immunization Single Admin 15:19:23 CDT CPT-41490 Prevnar 13 15:40:03 CDT CPT-60619 Administration single or combination vaccine inc oral 15 :40:03 CDT CPT-81500 Prevnar 13 13:55:07 CDT CPT-G0008 Administration of Influenza Virus Vaccine 10:49:51 CDT CPT-45527 Fluzone High-Dose Intramuscular Suspension 10:49:51 CDT CPT-52201 Knee 3V 13:31:37 CDT CPT-46541 Bone Density 09:07:05 HEADER MACHINE OPERATOR CPT-14693 Nail Avulsion 09:46:05 CDT CPT-71706 Administration single or combination vaccine inc oral 16 :11:54 CDT CPT-90787 Influenza High Dose age 65+ 16:11:54 CDT CPT-08818 Administration single or combination vaccine inc oral 10 :53:15 CDT CPT-04284 Influenza High Dose age 65+ 10:53:15 CDT CPT-05765 Bone Density 14:50:58 HEADER MACHINE OPERATOR CPT-48248 Administration single or combination vaccine inc oral 15 :41:20 HEADER MACHINE OPERATOR CPT-36277 Zoster Vaccine (Zostavax) 15:41:20 HEADER MACHINE OPERATOR CPT-54350 Spec Collection and Handling Fee 11:18:25 HEADER MACHINE OPERATOR CPT-16612 Administration single or combination vaccine inc oral 11 :14:20 CDT CPT-74375 Influenza High Dose age 65+ 11:14:20 CDT
--- OUTSIDE RECORDS SUMMARY | 2017-07-18 09:29 | XMS REPORT | Clinical Summary ---
Author Author Admin, DANDRE Organization [facility] [employer] Address Unknown Phone Unavailable Allergies, Adverse Reactions, Alerts Allergy Name Reaction Description Start Date Severity Status Provider NKDA Critical Active Mariaa Whitman DIRECTOR [employer] Conditions or Problems Problem Name Problem Code Onset Date Status Entry Date Provider Comment Standard Description Annotate ROUTINE GYNECOLOGICAL EXAMINATION V72.31 Resolved Ana Cristina Vallejo MD PhD Routine gynecological examination MENOPAUSE 627.2 Ruled out Ana Cristina Vallejo MD PhD Symptomatic menopausal or female climacteric states MENOPAUSE 627.2 Active Brianda Reis [facility] Symptomatic menopausal or female climacteric states [...] 1 po BID PRN Constipation DOCUSATE SODIUM 66314530454 No Longer Active Deepti Madl STOREKEEPER HELPER Active ALPRAZOLAM 0.25 MG TAB 1/2-1 tablet by mouth twice a day as needed for stress ALPRAZOLAM 33300678834 No Longer Active Deepti Madl STOREKEEPER HELPER Active MIRALAX ORAL PACK Takes daily prn POLYETHYLENE GLYCOL 3350 67090499217 Active Mariaa Yokum DIRECTOR DIGITAL COMMUNICATIONS Active ALENDRONATE SODIUM 70 MG TABS 1 pill by mouth weekly for osteoporosis ALENDRONATE SODIUM 62447267667 Active Brianda Reis [facility] Active E-1000 1000 UNIT ORAL CAPS Take one by mouth daily VITAMIN E 13740475792 Active Brianda Reis [facility] Active OSCAL 500/200 D-3 500-200 MG-UNIT ORAL TABS Take one by mouth 3 times daily, morning, afternoon and evening.] CALCIUM CARBONATE-VITAMIN D 91867129515 Active Brianda Reis [facility] Active ASPIRIN 81 MG CHEW TAB 1 tablet by mouth daily ASPIRIN 57011669393 Active Brianda Resi [facility] Active ADULT ASPIRIN EC LOW STRENGTH 81 MG TBEC TAKE 1 TAB DAILY ASPIRIN 30520881607 No Longer Active Mariaa Yokum DIRECTOR DIGITAL COMMUNICATIONS Active ALENDRONATE SODIUM 70 MG TABS TAKE 1 TAB ONCE A WEEK ALENDRONATE SODIUM 45343004425 No Longer Active Mariaa Yokum DIRECTOR DIGITAL COMMUNICATIONS Active FLONASE ALLERGY RELIEF 50 MCG/ACT NASAL SUSP One spray each nostril daily for allergies FLUTICASONE PROPIONATE 50409701560 Active Mariaa Whitman APRN Active CETIRIZINE HCL 10 MG ORAL TABS 1 po qd PRN Allergies CETIRIZINE HCL 67684340433 Active HEDY Esquivel Active BACTRIM DS 800-160 MG TABS 1 pill by mouth twice daily, for UTI SULFAMETHOXAZOLE-TRIMETHOPRIM 78180203543 No Longer Active Ana Cristina Vallejo MD PhD Active HYDROCHLOROTHIAZIDE 12.5 MG CAPS 1 pill by mouth daily, for blood pressure HYDROCHLOROTHIAZIDE 59712337224 Active HEDY Esquivel Active CARVEDILOL 25 MG TABS 1 pill by mouth twice daily for blood pressure CARVEDILOL 67931697295 Active HEDY Esquivel Active SYNTHROID 0.088 MG TAB 1 tablet by mouth daily for thyroid LEVOTHYROXINE SODIUM 53023755051 Active HEDY Esquivel Active AMOXICILLIN 500 MG CAP 1 tab by mouth 3 times daily AMOXICILLIN 73229963499 No Longer Active Alden Kim MD Active [facility] VITAMIN D3 1000 UNIT CAPS TAKE 2 CAP DAILY CHOLECALCIFEROL Active Ana Cristina Vallejo MD PhD Active CALCIUM 500 MG TABS TAKE 3 TABS DAILY CALCIUM 16627087414 No Longer Active Mariaa Whitman APRN Active MULTIVITAMINS TABS TAKE 1 TAB DAILY MULTIPLE VITAMIN Active Anetajeannie Tavarezum STOREKEEPER HELPER Active BENADRYL ALLERGY 25 MG TABS NEEDED DIPHENHYDRAMINE HCL 81222078295 Active Aneta Singh Leo STOREKEEPER HELPER Active TYLENOL 325 MG TABS NEEDED ACETAMINOPHEN 51029940623 Active Aneta Singh Leo STOREKEEPER HELPER Active ADVIL 200 MG TABS TAKE NEEDED IBUPROFEN 52903092497 Active Aneta Singh Leo STOREKEEPER HELPER Active GLUCOSAMINE-CHONDROITIN 500-400 MG TABS TAKE 1 TAB DAILY GLUCOSAMINE-CHONDROITIN 45399410969 Active Mariaa Whitman APRN Active NORVASC 10 MG TABS TAKE 1 TAB DAILY AMLODIPINE BESYLATE 64095182887 Active HEDY Esquivel Active BENAZEPRIL HCL 40 MG TABS 1 PO BID BENAZEPRIL HCL 16664535692 Active HEDY Esquivel Active LOVASTATIN 20 MG TABS 1 PO Q HS FOR CHOLESTEROL LOVASTATIN 27241231221 Active HEDY Esquivel Active RANITIDINE HCL 150 MG CAPS 1 PO Q 12 HRS RANITIDINE HCL 85930572500 Active HEDY Esquivel Active ALENDRONATE SODIUM 70 MG TABS TAKE 1 TAB ONCE A WEEK ALENDRONATE SODIUM 70 MG TABS 748498 ALENDRONATE SODIUM Inactive ADULT ASPIRIN EC LOW STRENGTH 81 MG TBEC TAKE 1 TAB DAILY ADULT ASPIRIN EC LOW STRENGTH 81 MG TBEC 713482 ASPIRIN Inactive ALPRAZOLAM 0.25 MG TAB 1/2-1 tablet by mouth twice a day as needed for stress ALPRAZOLAM 0.25 MG TAB 434347 ALPRAZOLAM Inactive COLACE 100 MG CAP 1 po BID PRN Constipation COLACE 100 MG CAP 6512951 DOCUSATE SODIUM Inactive AMOXICILLIN 500 MG CAP 1 tab by mouth 3 times daily AMOXICILLIN 500 MG CAP 682126 AMOXICILLIN Inactive BACTRIM DS 800-160 MG TABS 1 pill by mouth twice daily, for UTI BACTRIM DS 800-160 MG TABS 936777 SULFAMETHOXAZOLE-TRIMETHOPRIM Inactive Advance Directives Directive Description Start [...] Panel - Chemistry sodium, serum 130 mmol/L 022-996 5872/10/19 potassium, serum 3.5 mmol/L 3.5-5.2 chloride, serum 92 mmol/L 98-107 carbon dioxide, venous blood 33.6 mmol/L 21.0-32.0 blood glucose 118 mg/dL 65-110 calcium, serum 8.8 mg/dL 8.5-10.1 urea nitrogen, blood 11 mg/dL 7-18 creatinine, serum 1.12 mg/dL 0.55-1.30 Lab Report: CBC-QUEST, COMPREHENSIVE METABOLIC PANEL, LIPID PANEL, Micro ... - Chemistry cholesterol, serum 162 mg/dL 942-261 1498/05/01 HDL cholesterol, serum 68 mg/dL > OR=46 [...] % 11.0-15.0 platelet count 297 THOUSAND/UL 10*3/mm3 145-684 5271/05/01 mean platelet volume 8.9 fL 7.5-12.5 Lab [...] Negative Encounters Code Encounter Date Provider Facility CPT-81360 Level 4 Est. Patient 14:40:54 CDT Bee Rosas [facility] CPT-44713 Level 4 Est. Patient 10:31:15 CDT Jalil Hayes MD [facility]-22403 Level 4 Est. Patient 15:07:54 CDT Mariaa Whitman [facility]-88699 Level 3 Est. Patient 20:45:54 DIRECTOR SOFTWARE Mariaa Whitman [facility] CPT-26181 Level 3 Est. Patient 12:16:16 CDT Ana Cristina Vallejo MD PhD [facility] CPT-85582 Level 4 Est. Patient 12:49:21 CDT Ana Cristina Vallejo MD [facility]-93314 Level 4 Est. Patient 23:02:25 CDT Ana Cristina Vallejo MD PhD [facility] CPT-51095 Level 4 Est. Patient 19:26:33 DIRECTOR SOFTWARE Ana Cristina Vallejo MD PhD [facility] CPT-64207 Level 4 Est. Patient 11:28:14 CDT Ana Cristina Vallejo MD PhD [facility] CPT-06478 Level 4 Est. Patient 15:35:46 DIRECTOR SOFTWARE Ana Cristina Vallejo MD PhD [facility] CPT-16888 Level 3 Est. Patient 21:06:39 DIRECTOR SOFTWARE Alden Kim MD [facility] CPT-76948 Level 4 Est. Patient 15:30:54 DIRECTOR SOFTWARE Ana Cristina Vallejo MD PhD [facility] Procedures Code Procedure Name Date Entry Date Standard Description CPT-48702 EKG Trac and Interp - XRAY USE ONLY 10:35:11 CDT 09/11 CPT-54328 Chest 2V Frontal and Lat - XRAY USE ONLY 10:35:11 CDT CPT-G0438 Initial Annual Wellness Exam 14:54:07 CDT CPT-G0009 Administration of Pneumococcal Vaccine 14:44:24 CDT CPT-74875 Pneumovax 23 Injection Injectable 25 MCG/0.5ML 14:44:24 CDT CPT-82530 First Vx - Ix admin for Medicare patients 14:44:24 CDT CPT-47639 Fluzone High-Dose Intramuscular Suspension 14:44:20 CDT CPT-93210 BMP - LAB USE ONLY 12:38:06 CDT CPT-80181 Urine Culture - LAB USE ONLY 16:56:33 CDT CPT-TCMM Transitional Care Mgmt-Moderate 18:08:16 CDT CPT-08494 Bone Density 09:14:12 CDT CPT-000 Give Appropriate Flu Vaccine 14:51:52 CDT CPT-46045 Fluzone High Dose (>=65 yrs.) 15:19:23 CDT CPT-14438 Immunization Single Admin 15:19:23 CDT CPT-38215 Prevnar 13 15:40:03 CDT CPT-55585 Administration single or combination vaccine inc oral 15 :40:03 CDT CPT-18757 Prevnar 13:55:07 CDT CPT-G0008 Administration of Influenza Virus Vaccine 10:49:51 CDT CPT-00649 Fluzone High-Dose Intramuscular Suspension 10:49:51 CDT CPT-30372 Knee 3V 13:31:37 CDT CPT-05054 Bone Density 09:07:05 DIRECTOR SOFTWARE CPT-35963 Nail Avulsion 09:46:05 CDT CPT-62448 Administration single or combination vaccine inc oral 16 :11:54 CDT CPT-69638 Influenza High Dose age 65+ 16:11:54 CDT CPT-72614 Administration single or combination vaccine inc oral 10 :53:15 CDT CPT-00192 Influenza High Dose age 65+ 10:53:15 CDT CPT-26150 Bone Density 14:50:58 DIRECTOR SOFTWARE CPT-66984 Administration single or combination vaccine inc oral 15 :41:20 DIRECTOR SOFTWARE CPT-98191 Zoster Vaccine (Zostavax) 15:41:20 DIRECTOR SOFTWARE CPT-21774 Spec Collection and Handling Fee 11:18:25 DIRECTOR SOFTWARE CPT-02688 Administration single or combination vaccine inc oral 11 :14:20 CDT CPT-89904 Influenza High Dose age 65+ 11:14:20 CDT
[2017-07-18] MEDS ORDERED: diphenhydrAMINE 50 MG/ML INJ (BENADRYL) IVP PRN (09:30)
[2017-07-18] MEDS ORDERED: ACETAMINOPHEN 325 MG TABLET/CAPLET (TYLENOL) PO PRN (09:30)
[2017-07-18] MEDS ORDERED: morphine PCA 30 MG/30 ML VIAL IV PRN (09:30)
[2017-07-18] MEDS ORDERED: ONDANSETRON 4 MG/2 ML (SDV) Z0FRAN IVP PRN ×2 (09:30→11:45)
--- OUTSIDE RECORDS SUMMARY | 2017-07-18 09:30 | XMS REPORT | Clinical Summary ---
Author Author Admin, QIE Organization [employer] Address Unknown Phone Unavailable Allergies, Adverse Reactions, [...] each nostril daily for allergies FLUTICASONE PROPIONATE 74409278982 Active Mariaadomenico Whitman APRN Active CETIRIZINE HCL 10 MG ORAL TABS 1 po qd PRN Allergies CETIRIZINE HCL 88766111418 Active Mariaa Sidkum PRESENTATION DESIGNER Active BACTRIM DS 800-160 MG TABS 1 pill by mouth twice daily, for UTI SULFAMETHOXAZOLE-TRIMETHOPRIM 64331851605 No Longer Active Ana Cristina Vallejo MD PhD Active HYDROCHLOROTHIAZIDE 12.5 MG CAPS 1 pill by mouth daily, for blood pressure HYDROCHLOROTHIAZIDE 35999994828 Active Mariaa Antonette PRESENTATION DESIGNER Active CARVEDILOL 25 MG TABS 1 pill by mouth twice daily for blood pressure CARVEDILOL 40103187237 Active Mariaa Lauxuanbeckie PRESENTATION DESIGNER Active SYNTHROID 0.088 MG TAB 1 tablet by mouth daily for thyroid LEVOTHYROXINE SODIUM 51887848814 Active Mariaa Antonette SWARTZN Active AMOXICILLIN 500 MG CAP 1 tab by mouth 3 times daily AMOXICILLIN 30920940119 No Longer Active Alden Kim MD Active CVS VITAMIN D3 1000 UNIT CAPS TAKE 2 CAP DAILY CHOLECALCIFEROL 83650963695 Active Ana Cristina Vallejo MD PhD Active CALCIUM 500 MG TABS TAKE 3 TABS DAILY CALCIUM 48782807949 Active Aneta Tavarezum SCRATCHER Active MULTIVITAMINS TABS TAKE 1 TAB DAILY MULTIPLE VITAMIN 08609325665 Active Aneta Tavarezum SCRATCHER Active BENADRYL ALLERGY 25 MG TABS NEEDED DIPHENHYDRAMINE HCL 41553663949 Active Aneta Tavarezum SCRATCHER Active TYLENOL 325 MG TABS NEEDED ACETAMINOPHEN 09494627214 Active Aneta Tavarezum SCRATCHER Active ADVIL 200 MG TABS TAKE NEEDED IBUPROFEN 55360010937 Active Aneta Tavarezum SCRATCHER Active ADULT ASPIRIN EC LOW STRENGTH 81 MG TBEC TAKE 1 TAB DAILY ASPIRIN 60922988231 Active Aneta Tavarezum SCRATCHER Active VITAMIN E NATURAL 400 UNIT CAPS TAKE 1 CAP DAILY VITAMIN E 06870499532 Active Aneta Tavarezum SCRATCHER Active GLUCOSAMINE-CHONDROITIN 500-400 MG TABS TAKE 1 TAB DAILY GLUCOSAMINE-CHONDROITIN 90193017445 Active Aneta Tavarezum SCRATCHER Active NORVASC 10 MG TABS TAKE 1 TAB DAILY AMLODIPINE BESYLATE 42739028230 Active Mariaa Whitman PRESENTATION DESIGNER Active BENAZEPRIL HCL 40 MG TABS 1 PO BID BENAZEPRIL HCL 62069397813 Active Mariaa Whitman PRESENTATION DESIGNER Active LOVASTATIN 20 MG TABS 1 PO Q HS FOR CHOLESTEROL LOVASTATIN 27858414397 Active Mariaa Whitman PRESENTATION DESIGNER Active RANITIDINE HCL 150 MG CAPS 1 PO Q 12 HRS RANITIDINE HCL 45037564301 Active Mariaa Whitman PRESENTATION DESIGNER Active ALENDRONATE SODIUM 70 MG TABS TAKE 1 TAB ONCE A WEEK ALENDRONATE SODIUM 55997582302 Active Mariaa Whitman PRESENTATION DESIGNER Active AMOXICILLIN 500 MG CAP 1 tab by mouth 3 times daily AMOXICILLIN 500 MG CAP 609221 AMOXICILLIN Inactive BACTRIM DS 800-160 MG TABS 1 pill by mouth twice daily, for UTI BACTRIM DS 800-160 MG TABS 405893 SULFAMETHOXAZOLE-TRIMETHOPRIM Inactive Immunizations Vaccine Administration Date Value [...] Thyroxine (L), Lipid P ... - Chemistry thyroxine, serum, free 1.41 ng/dL 0.76-1.46 cholesterol, serum 166 mg/dL 657-177 9659/04/20 triglyceride, serum, fasting 68 mg/dL 30-200 HDL cholesterol, serum 88 mg/dL 32-96 LDL cholesterol, serum 64 mg/dL 0-130 sodium, serum 132 mmol/L 866-595 7855/04/20 carbon dioxide, venous blood 31.3 mmol/L 21.0-32.0 potassium, serum 3.8 mmol/L 3.5-5.2 chloride, serum 96 mmol/L 98-107 blood glucose 108 mg/dL 65-110 urea nitrogen, blood 8 mg/dL 7-18 creatinine, serum 0.97 mg/dL 0.55-1.30 alanine aminotransferase (SGPT), serum 21 U/L 12-78 aspartate aminotransferase (SGOT), serum 19 U/L 15-37 calcium, serum 8.9 mg/dL 8.5-10.1 bilirubin, serum, total 0.40 mg/dL 0.00-1.00 TSH 1.84 m[iU]/mL 0.36-3.74 Lab Report: Thyroid Stimulating Hormone (L), Free [...] Negative Encounters Code Encounter Date Provider Facility CPT-18799 Level 4 Est. Patient 15:07:54 CDT Mariaa Whitman [facility] CPT-52705 Level 3 Est. 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 Patient 12:16:16 CDT Ana Cristina Vallejo MD PhD [facility] CPT-18794 Level 4 Est. Patient 12:49:21 CDT Ana Cristina Vallejo MD [facility] CPT-30257 Level 4 Est. Patient 23:02:25 CDT Ana Cristina Vallejo MD [facility] CPT-82225 Level 4 Est. Patient 19:26:33 SHAG TRUCK DRIVER Ana Cristina Vallejo MD [facility] CPT-48302 Level 4 Est. Patient 11:28:14 CDT Ana Cristina Vallejo MD [facility] CPT-16986 Level 4 Est. Patient 15:35:46 SHAG TRUCK DRIVER Ana Cristina Vallejo MD [facility] CPT-45749 Level 3 Est. Patient 21:06:39 SHAG TRUCK DRIVER Alden Kim MD [facility] CPT-58641 Level 4 Est. Patient 15:30:54 SHAG TRUCK DRIVER Ana Cristina Vallejo MD [facility] Procedures Code Procedure Name Date Entry Date Standard Description CPT-62524 Bone Density 09:14:12 CDT CPT-000 Give Appropriate Flu Vaccine 14:51:52 CDT CPT-60713 Fluzone High Dose (>=65 yrs.) 15:19:23 CDT CPT-49899 Immunization Single Admin 15:19:23 CDT CPT-93714 Prevnar 13 15:40:03 CDT CPT-45642 Administration single or combination vaccine inc oral 15 :40:03 CDT CPT-04343 Prevnar 13 13:55:07 CDT CPT-G0008 Administration of Influenza Virus Vaccine 10:49:51 CDT CPT-73131 Fluzone High-Dose Intramuscular Suspension 10:49:51 CDT CPT-30821 Knee 3V 13:31:37 CDT CPT-69921 Bone Density 09:07:05 SHAG TRUCK DRIVER CPT-18279 Nail Avulsion 09:46:05 CDT CPT-03749 Administration single or combination vaccine inc oral 16 :11:54 CDT CPT-63216 Influenza High Dose age 65+ 16:11:54 CDT CPT-72457 Administration single or combination vaccine inc oral 10 :53:15 CDT CPT-12911 Influenza High Dose age 65+ 10:53:15 CDT CPT-26685 Bone Density 14:50:58 SHAG TRUCK DRIVER CPT-13395 Administration single or combination vaccine inc oral 15 :41:20 SHAG TRUCK DRIVER CPT-94545 Zoster Vaccine (Zostavax) 15:41:20 SHAG TRUCK DRIVER CPT-22666 Spec Collection and Handling Fee 11:18:25 SHAG TRUCK DRIVER CPT-40652 Administration single or combination vaccine inc oral 11 :14:20 CDT CPT-59236 Influenza High Dose age 65+ 11:14:20 CDT
--- OUTSIDE RECORDS SUMMARY | 2017-07-18 09:30 | XMS REPORT | Clinical Summary ---
Author Author Admin, QIE Organization [employer] Address Unknown Phone Unavailable Allergies, Adverse Reactions, [...] each nostril daily for allergies FLUTICASONE PROPIONATE 54743311143 Active Mariaadomenico Whitman APRN Active CETIRIZINE HCL 10 MG ORAL TABS 1 po qd PRN Allergies CETIRIZINE HCL 78154909853 Active Mariaa Sidkum REVENUE LIAISON Active BACTRIM DS 800-160 MG TABS 1 pill by mouth twice daily, for UTI SULFAMETHOXAZOLE-TRIMETHOPRIM 98564985080 No Longer Active Ana Cristina Vallejo MD PhD Active HYDROCHLOROTHIAZIDE 12.5 MG CAPS 1 pill by mouth daily, for blood pressure HYDROCHLOROTHIAZIDE 87839696512 Active Mariaa Antonette REVENUE LIAISON Active CARVEDILOL 25 MG TABS 1 pill by mouth twice daily for blood pressure CARVEDILOL 46109593687 Active Mariaa Laudee SWARTZN Active SYNTHROID 0.088 MG TAB 1 tablet by mouth daily for thyroid LEVOTHYROXINE SODIUM 99687620089 Active Mariaa Antonette SWARTZN Active AMOXICILLIN 500 MG CAP 1 tab by mouth 3 times daily AMOXICILLIN 11468384929 No Longer Active Alden Kim MD Active CVS VITAMIN D3 1000 UNIT CAPS TAKE 2 CAP DAILY CHOLECALCIFEROL 92908821235 Active Ana Cristina Vallejo MD PhD Active CALCIUM 500 MG TABS TAKE 3 TABS DAILY CALCIUM 81963521048 Active Aneta Tavarezum FLY MAKER Active MULTIVITAMINS TABS TAKE 1 TAB DAILY MULTIPLE VITAMIN 43728306575 Active Aneta Tavarezum FLY MAKER Active BENADRYL ALLERGY 25 MG TABS NEEDED DIPHENHYDRAMINE HCL 98836321133 Active Aneta Tavarezum FLY MAKER Active TYLENOL 325 MG TABS NEEDED ACETAMINOPHEN 96026342280 Active Aneta Tavarezum FLY MAKER Active ADVIL 200 MG TABS TAKE NEEDED IBUPROFEN 07033440211 Active Aneta Tavarezum FLY MAKER Active ADULT ASPIRIN EC LOW STRENGTH 81 MG TBEC TAKE 1 TAB DAILY ASPIRIN 63915199367 Active Aneta Tavarezum FLY MAKER Active VITAMIN E NATURAL 400 UNIT CAPS TAKE 1 CAP DAILY VITAMIN E 14231708095 Active Aneta Tavarezum FLY MAKER Active GLUCOSAMINE-CHONDROITIN 500-400 MG TABS TAKE 1 TAB DAILY GLUCOSAMINE-CHONDROITIN 53513180276 Active Aneta Tavarezum FLY MAKER Active NORVASC 10 MG TABS TAKE 1 TAB DAILY AMLODIPINE BESYLATE 41382281958 Active Mariaa Whitman REVENUE LIAISON Active BENAZEPRIL HCL 40 MG TABS 1 PO BID BENAZEPRIL HCL 85198750103 Active Mariaa Whitman REVENUE LIAISON Active LOVASTATIN 20 MG TABS 1 PO Q HS FOR CHOLESTEROL LOVASTATIN 49331505783 Active Mariaa Whitman REVENUE LIAISON Active RANITIDINE HCL 150 MG CAPS 1 PO Q 12 HRS RANITIDINE HCL 92000733797 Active Mariaa Whitman REVENUE LIAISON Active ALENDRONATE SODIUM 70 MG TABS TAKE 1 TAB ONCE A WEEK ALENDRONATE SODIUM 14088267610 Active Mariaa Whitman REVENUE LIAISON Active AMOXICILLIN 500 MG CAP 1 tab by mouth 3 times daily AMOXICILLIN 500 MG CAP 109799 AMOXICILLIN Inactive BACTRIM DS 800-160 MG TABS 1 pill by mouth twice daily, for UTI BACTRIM DS 800-160 MG TABS 475992 SULFAMETHOXAZOLE-TRIMETHOPRIM Inactive Immunizations Vaccine Administration Date Value [...] ... - Chemistry sodium, serum 132 mmol/L 240-524 4378/04/20 carbon dioxide, venous blood 31.3 mmol/L 21.0-32.0 [...] 1.41 ng/dL 0.76-1.46 cholesterol, serum 166 mg/dL 885-600 0516/04/20 triglyceride, serum, fasting 68 mg/dL 30-200 HDL [...] 5.0-8.5 Encounters Code Encounter Date Provider Facility CPT-05957 Level 4 Est. Patient 15:07:54 CDT Mariaa Whitman [facility]-38384 Level 3 Est. 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 Patient 12:16:16 CDT Ana Cristina Vallejo MD [facility]-70431 Level 4 Est. Patient 12:49:21 CDT Ana Cristina Vallejo MD [facility]-82728 Level 4 Est. Patient 23:02:25 CDT Ana Cristina Vallejo MD [id number] Level 4 Est. Patient 19:26:33 RACE BOARD ATTENDANT Ana Cristina Vallejo MD [facility]-02131 Level 4 Est. Patient 11:28:14 CDT Ana Cristina Vallejo MD PhD [facility] CPT-17782 Level 4 Est. Patient 15:35:46 RACE BOARD ATTENDANT Ana Cristina Vallejo MD PhD [facility] CPT-68023 Level 3 Est. Patient 21:06:39 RACE BOARD ATTENDANT Alden Kim MD [facility] CPT-68558 Level 4 Est. Patient 15:30:54 RACE BOARD ATTENDANT Ana Cristina Vallejo MD PhD [facility] Procedures Code Procedure Name Date Entry Date Standard Description CPT-96097 Bone Density 09:14:12 CDT CPT-000 Give Appropriate Flu Vaccine 14:51:52 CDT CPT-50352 Fluzone High Dose (>=65 yrs.) 15:19:23 CDT CPT-49141 Immunization Single Admin 15:19:23 CDT CPT-41334 Prevnar 13 15:40:03 CDT CPT-87469 Administration single or combination vaccine inc oral 15 :40:03 CDT CPT-87020 Prevnar 13 13:55:07 CDT CPT-G0008 Administration of Influenza Virus Vaccine 10:49:51 CDT CPT-16766 Fluzone High-Dose Intramuscular Suspension 10:49:51 CDT CPT-10477 Knee 3V 13:31:37 CDT CPT-99877 Bone Density 09:07:05 RACE BOARD ATTENDANT CPT-85524 Nail Avulsion 09:46:05 CDT CPT-97168 Administration single or combination vaccine inc oral 16 :11:54 CDT CPT-45634 Influenza High Dose age 65+ 16:11:54 CDT CPT-56607 Administration single or combination vaccine inc oral 10 :53:15 CDT CPT-08547 Influenza High Dose age 65+ 10:53:15 CDT CPT-94348 Bone Density 14:50:58 RACE BOARD ATTENDANT CPT-68601 Administration single or combination vaccine inc oral 15 :41:20 RACE BOARD ATTENDANT CPT-68601 Zoster Vaccine (Zostavax) 15:41:20 RACE BOARD ATTENDANT CPT-39276 Spec Collection and Handling Fee 11:18:25 RACE BOARD ATTENDANT CPT-04818 Administration single or combination vaccine inc oral 11 :14:20 CDT CPT-34641 Influenza High Dose age 65+ 11:14:20 CDT
--- OUTSIDE RECORDS SUMMARY | 2017-07-18 09:31 | XMS REPORT | Continuity of Care Document ---
Demographics x Preferred Language Unknown Marital Status Unknown Moravian Affiliation Unknown Race Unknown Ethnic Group Unknown Author Author [facility] Organization [facility] Address Unknown Phone Unavailable Allergies Active Description Code Type Severity Reaction Onset Reported/Identified Relationship to Patient Clinical Status Yes No known drug allergies [id number] ND N/A N/A Medications There is no data. Problems Date Dx Coded Attending Type Code Diagnosis Diagnosed By 09/10/2014 LEANDRO BUCKLEY 724.3 SCIATICA 09/10/2014 LEANDRO BUCKLEY 729.5 PAIN IN LIMB 09/10/2014 LEANDRO BUCKLEY V57.1 PHYSICAL THERAPY NEC 09/15/2014 LEANDRO BUCKLEY 724.3 SCIATICA 09/15/2014 LEANDRO BUCKLEY 729.5 PAIN IN LIMB 09/15/2014 LEANDRO BUCKLEY V57.1 PHYSICAL THERAPY NEC 12/13/2016 R30.0 Dysuria 12/13/2016 LIU RAMAN MD R30.0 Dysuria 04/17/2017 F03.90 Forgetfulness 04/17/2017 R26.81 Unsteady gait 04/17/2017 Z91.81 Personal history of fall 05/23/2017 Z68.29 BMI 29-29.9 adult 05/23/2017 M79.609 Arm pain 06/15/2017 Z01.818 Preoperative examination 06/15/2017 I27.20 Pulmonary hypertension Procedures Code [place] [address] ULTRASOUND THERAPY 09/10/2014 42424 ROUTINE VENIPUNCTURE 11/11/2015 44458 CHEST X-RAY 11/11/2015 41879 COMPREHEN METABOLIC PANEL 11/11/2015 20438 ASSAY OF CK (CPK) 11/11/2015 23739 CREATINE, MB FRACTION 11/11/2015 57905 NATRIURETIC PEPTIDE 11/11/2015 63707 ASSAY OF TROPONIN, QUANT 11/11/2015 60640 COMPLETE CBC W/AUTO DIFF WBC 11/11/2015 01252 FIBRIN DEGRADATION, QUANT 11/11/2015 25812 ELECTROCARDIOGRAM, TRACING 11/11/2015 23254 ELECTROCARDIOGRAM REPORT 11/11/2015 95520 EMERGENCY DEPT VISIT 11/11/2015 97119 EMERGENCY DEPT VISIT 11/11/2015 25296 CULTURE AEROBIC IDENTIFY LIU RAMAN MD 12/13/2016 57346 URINE CULTURE/COLONY COUNT LIU RAMAN MD 12/13/2016 91253 MICROBE SUSCEPTIBLE ISIDRA DANISHA AGUAYO, LIU 12/13/2016 Results Test Result Range CBC WITH DIFF - 11/23/14 00:00 BANDS 8.0 % 0-5 HCT 29.9 % 36.9-47.0 HGB 10.5 G/DL 12.0-16.0 LYMPH 1.0 % 20-40 MCH 30.6 PG 27-31 MCHC 35.1 G/DL 33-37 MCV 87.2 FL 81-99 MONO 4.0 % 0-10 MPV 10.6 FL 7.3-10.4 PLT 205 10^3u 130-400 RBC 3.4 10^6u 4.2-5.4 RDW 12.4 % 11.5-15.5 WBC 14.1 10^3u 4.8-10.8 SEGS 87.0 % 40-70 UA - 11/23/14 00:00 PH 7.0 4.5-8.0 SG 1.007 UABILI NEGATIVE UABLD 1+ UACOLOR YEL UAGLU NEGATIVE UAKET NEGATIVE UALEUK 2+ UANIT NEGATIVE UAURO 0.2 0-0.2 CLARITY HAZY PROTEIN TRACE UA WBC R2030 UA RBC R05 SQUAMOUS EPITHELIAL CELLS FEW BACTERIA 1+ CMP - 11/23/14 00:00 ALB 3.0 G/DL 3.5-5 ALP 65 IU/L 25-72 ALT 29 IU/L 12-65 AST 36 IU/L 10-42 BCR 16.3 10-20 BUN 31 MG/DL 7-18 CA 10.3 MG/DL 8.4-10.2 CL 88 MEQ/L 98-107 CO2 24.2 MEQ/L 22-28 CREA 1.90 MG/DL 0.6-1.0 EGFR 25 eGFR >=60 GLU 123 MG/DL 70-105 K 3.5 MEQ/L 3.5-5.1 NA 125 MEQ/L 134-145 OSMSC 259.4 MOSML 280-300 TBIL 0.4 MG/DL 0.1-1.0 TP 6.2 G/DL 6.0-8.3 Albumin/Globulin Ratio 0.9 0-8 Anion Gap 12.8 8-16 UA - 05/19/15 00:00 PH 6.5 4.5-8.0 SG 1.007 1.003-1.035 UABILI NEGATIVE UABLD 3+ UACOLOR YEL UAGLU NEGATIVE UAKET NEGATIVE UALEUK 3+ UANIT NEGATIVE UAURO 0.2 0-0.2 UCX YES CLARITY TURBID PROTEIN 2+ UA WBC TNTC UA RBC R1020 SQUAMOUS EPITHELIAL CELLS FEW BACTERIA 1+ CBC WITH DIFF - 11/11/15 00:00 BASO% 0.6 % 0-2 EOS% 1.7 % 0-7.0 HCT 32.8 % 36.9-47.0 HGB 11.3 G/DL 12.0-16.0 LYMPH% 31.5 % 20-40 MCH 30.8 PG 27-31 MCHC 34.5 G/DL 33-37 MCV 89.4 FL 81-99 MONO% 13.5 % 0-10.0 MPV 9.6 FL 7.3-10.4 NEUTRO% 52.3 % 40-70 PLT 273 10^3u 130-400 RBC 3.7 10^6u 4.2-5.4 RDW 12.8 % 11.5-15.5 WBC 5.4 10^3u 4.8-10.8 NEUTRO# 2.8 10^3u 1.5-7.5 LYMPH# 1.7 10^3u 0.9-4.0 MONO# 0.7 10^3u 0-0.8 EOS# 0.1 10^3u 0-0.6 BASO# 0.0 10^3u 0-0.1 IMM GRANULOCYTE % 0.4 % IMM GRANULOCYTE # 0.0 10^3u 0-5 D DIMER - 11/11/15 00:00 DDIM 357 NG/ML 0-400 PRO-BNP - 11/11/15 00:00 PRO-BNP 488 PG/ML 0-900 CKMB - 11/11/15 00:00 CKMB 0.5 NG/ML 0-3.6 CK - 11/11/15 00:00 CK 191 IU/L 26-192 CMP - 11/11/15 00:00 ALB 3.6 G/DL 3.5-5 ALP 39 IU/L 25-72 ALT 20 IU/L 12-65 AST 21 IU/L 10-42 BCR 13.6 10-20 BUN 14 MG/DL 7-18 CA 8.5 MG/DL 8.4-10.2 CL 92 MEQ/L 98-107 CO2 26.2 MEQ/L 22-28 CREA 1.03 MG/DL 0.6-1.0 EGFR 51 eGFR >=60 GLU 105 MG/DL 70-105 K 3.3 MEQ/L 3.5-5.1 NA 128 MEQ/L 134-145 OSMSC 257.9 MOSML 280-300 TBIL 0.3 MG/DL 0.1-1.0 TP 7.0 G/DL 6.0-8.3 Albumin/Globulin Ratio 1.1 0-8 Anion Gap 9.8 8-16 TROP - 11/11/15 00:00 TROP < 0.02 NG/ML 0.0-0.4 Encounters ACCT No. Visit Date/Time Discharge Status Pt. Type Provider Facility Loc./Unit Complaint [id number] 11/11/2015 17:56:00 11/11/2015 19:45:00 DIS Emergency GLEN SHIELDS [facility] EMR [id number] 05/18/2015 23:55:00 05/19/2015 00:55:00 DIS Emergency ALFREDO RIVERS [facility] EMR [id number] 11/23/2014 19:17:00 11/23/2014 21:17:00 DIS Emergency LIU RAMAN [facility] EMR [id number] 09/11/2014 00:01:00 09/15/2014 09:26:00 DIS Outpatient LEANDRO BUCKLEY [facility] PT [id number] 08/12/2014 00:01:00 09/10/2014 23:59:00 DIS Outpatient LEANDRO BUCKLEY [facility] PT [id number] 07/27/2014 16:00:00 08/11/2014 23:59:00 DIS Outpatient LEANDRO BUCKLEY [facility] PT [id number] 01/19/2014 09:31:00 01/19/2014 09:31:00 DIS Outpatient LUKE SANDOVAL [facility] RAD [id number] 04/12/2015 00:00:00 Document Registration [id number] 04/12/2015 00:00:00 Document Registration [id number] 04/12/2014 00:00:00 Document Registration [id number] 12/13/2016 17:48:00 12/13/2016 17:48:00 DIS Outpatient DANISHA AGUAYO, [facility] LAB [id number] 06/29/2017 20:01:58 ACT Unknown
[2017-07-18] MEDS ORDERED: NEOSTIGMINE 1 MG/ML 5 ML SYRINGE ONE (11:09)
[2017-07-18] MEDS ORDERED: GLYCOPYRROLATE 0.2 MG/ML (ROBINUL) 2 ML VIAL ONE (11:09)
[2017-07-18] MEDS ORDERED: HYDROmorphone (DILAUDID) 2 MG/ML VIAL ONE (11:20)
[2017-07-18] MEDS ORDERED: morphine INJ 10 MG/ML 1ML (SYR OR VIAL) ONE (11:20)
[2017-07-18] MEDS ORDERED: MEPERIDINE (DEMEROL) INJ 50 MG/ML IVP PRN (11:45)
[2017-07-18] MEDS: morphine INJ 10 MG/ML 1ML (SYR OR VIAL) IVP PRN ×3 (11:50→12:05)
[2017-07-18 12:40] VITALS: BP 119/59
[2017-07-18] MEDS: NS IV 1000 ML 1,000 ML IV SCH ×2 (12:58→22:01)
--- NOTE | 2017-07-18 13:01 | Progress Note-Standard ---
Standard Progress Note Progress Notes/Assess & Plan Date Seen by Provider: Jul 18, 2017 Time Seen by Provider: 12:00 Progress/Assessment & Plan post op check denies paresthesias radiographs--no fractures. some increased valgus, but acceptable LLE--2 plus DP pulse with brisk cap refill. Intact DF and PF of toes and ankle. Sensation intact throughout s/p LTKA mobilize as able valgus due to baseline soft tissue laxity medially LISSETTE RIOS MD Jul 18, 2017 13:01
--- NOTE | 2017-07-18 13:53 | Diagnostic Imaging Report ---
INDICATION: Left knee replacement. TIME OF EXAMINATION: 11:56 a.m. FINDINGS: Two views of the left knee demonstrate postop changes of total knee arthroplasty. The prosthetic elements are in good position. No fracture or loosening is identified. Overlying skin padmini are noted. IMPRESSION: Satisfactory postop appearance to the left knee. Dictated by: Dictated on workstation # [id number]
--- NOTE | 2017-07-18 14:22 | Consultation-Hospitalist ---
HPI History of Present Illness: HPI/Chief Complaint Pt is an 82yoCF with a PMH of HTN, hypothyroidism, and osteoporosis who was admitted postoperatively following left TKA. She complains of pain at her surgical site but otherwise has no complaints. When asked about her health history she states "I wouldn't know any of that right now." and declined to answer further questions stated she wouldn't know the answer. Her nurse states she has been sleepy since arrival to the floor and is very hard of hearing which has limited her ability to get history as well but that she has not complained of anything to her. Source: patient, other (records) Exam Limitations: other (difficulty hearing and post op sedation) Date Seen 07/18/17 Attending Physician Eddie Hinson MD PCP No,Local Physician Referring Physician Date of Admission Jul 18, 2017 at 07:48 Home Medications & Allergies Home Medications Reviewed patient Home Medication Reconciliation Form Allergies Allergies Coded Allergies No Known Drug Allergies (Unverified07/09/17) Past Evwahsw-Acalca-Psfaoj Hx Patient Social History Employed/Student: retired Smoking Status: Never a Smoker Former Smoker, Quit: Jul 09, 1977 Recent Foreign Travel: No Contact w/other who traveled: No Recent Hopitalizations: No Immunizations Up To Date Date of Influenza Vaccine: Feb 12, 2017 Seasonal Allergies Seasonal Allergies: Yes Surgeries Yes (breast bx, d&c) Respiratory No Cardiovascular Yes Coronary Artery Disease, Hypertension Neurological No Genitourinary Yes (frequency) Gastrointestinal Yes Gastroesophageal Reflux, Diverticulosis Musculoskeletal Yes (osteopenia) Arthritis Endocrine History of Endocrine Disorders: Yes HEENT History of HEENT Disorders: Yes (glasses, dentures) Loss of Vision: Bilateral Hearing Impairment: Hard of Hearing Cancer No Integumentary History of Skin or Integumenta: No Family Medical History Significant Family History: No Pertinent Family Hx Review of Systems Constitutional: no symptoms reported EENTM: hearing loss Respiratory: no symptoms reported Cardiovascular: no symptoms reported Gastrointestinal: no symptoms reported Genitourinary: no symptoms reported Musculoskeletal: no symptoms reported Skin: no symptoms reported Psychiatric/Neurological: No Symptoms Reported Physical Exam Physical Exam Vital Signs Vital Signs - First Documented 07/18/17 08:30 Temp 97.3 Pulse 70 Resp 20 B/P (MAP) 159/67 (97) Pulse Ox 100 O2 Delivery Room Air Capillary Refill : General Appearance: No Apparent Distress, WD/WN HEENT: PERRL/EOMI, Moist Mucous Membranes Neck: Non Tender, Supple Respiratory: Lungs Clear, No Respiratory Distress Cardiovascular: Regular Rate, Rhythm, No Murmur Gastrointestinal: Normal Bowel Sounds, Non Tender, Soft Extremity: Other (beulah hose in place) Neurologic/Psychiatric: Alert, Oriented x3, Normal Mood/Affect Skin: Normal Color, Warm/Dry Assessment/Plan Assessment and Plan Assess & Plan/Chief Complaint s/p left TKA Diagnosis/Problems Diagnosis/Problems (1) Degenerative joint disease Status: Acute Assessment & Plan: s/p TKA management per primary PT/OT continue pain regimen Qualifiers: Qualified Codes: M17.12 - Unilateral primary osteoarthritis, left knee (2) Essential (primary) hypertension Assessment & Plan: Continue home medications relatively well controlled for age (3) Hypothyroidism Assessment & Plan: Continue home medications Qualifiers: Qualified Codes: E03.9 - Hypothyroidism, unspecified (4) Osteoporosis Assessment & Plan: On home alendronate if here when due Qualifiers: Qualified Codes: M81.0 - Age-related osteoporosis without current pathological fracture (5) Prophylactic measure Assessment & Plan: Lovenox 30mg BID NS at 80ml/hr Clinical Quality Measures DVT/VTE Risk/Contraindication: Risk Factor Score Per Nursin RFS Level Per Nursing on Admit: 4+=Very High DEMARCUS ANN MD Jul 18, 2017 14:22
--- NOTE | 2017-07-18 14:36 | Anesthesia-General Post-Op ---
General Patient Condition Mental Status/LOC: Same as Preop Cardiovascular: Satisfactory Nausea/Vomiting: Absent Respiratory: Satisfactory Pain: Controlled Complications: Absent Post Op Complications Complications None Follow Up Care/Instructions Patient Instructions None needed. Anesthesia/Patient Condition Patient Condition Patient is doing well, no complaints, stable vital signs, no apparent adverse anesthesia problems. No complications reported per nursing. MICHELLE ARTEAGA CRNA Jul 18, 2017 14:36
--- NOTE | 2017-07-18 15:21 | Physical Therapy Evaluation ---
PT Evaluation-General Medical Diagnosis Admission Date Jul 18, 2017 at 07:48 Medical Diagnosis: OA left knee Onset Date: Jul 18, 2017 Therapy Diagnosis Therapy Diagnosis: weakness; abn gait Height/Weight Height (Feet): 5 Height (Inches): 5.00 Weight (Pounds): 186 Weight (Ounces): 0.0 Precautions Precautions/Isolations: Standard Precautions Weight Bear Status Right Lower Extremity: Right Full Weight Bearing Left Lower Extremity: Left Weight Bearing/Tolerated Referral Physician: Joya Reason for Referral: Evaluation/Treatment Medical History Pertinent Medical History: CAD, HTN, OA Additional Medical History osteoporosis, DJD Current History Elective left TKR. Social History Home: Single Level Current Living Status: Children (son) Entry Into Home: Ramp Prior/Core FIM Prior Level of Function Functional [place] Measure 0=Not Assessed/NA 4=Minimal Assistance 1=Total Assistance 5=Supervision or Setup 2=Maximal Assistance 6=Modified [place] 3=Moderate Assistance 7=Complete [place] Bed Mobility: 7 Transfers (B,C,W/C) (FIM): 6 Gait: 6 (FWW indoors and 2 canes outdoors) PT Evaluation-Current Subjective Reports she feels dizzy; mouth is dry. Unable to take a step to side step at EOB Pain Numeric Pain Scale: 4 Location: Left Location Body Site: Knee Pain Description: Ache Comment: Used RN BEH[facility]IOR[facility] prior to start of therapy Objective Patient Orientation: Person, Place, Time, Situation Problem Solving: Fair ROM/Strength ROM Lower Extremities Right LE WFL; left LE 0-5-80 degrees at the knee; other WFL Strength Lower Extremities Right LE WFL; left LE grossly 3/5 throughout Integumentary/Posture Integumentary refer to nursing notes. Bowel Incontinence: No Bladder Incontinence: No Posture WNL Neuromuscular (Tone, Coordination, Reflexes) No noted functional deficits Sensory Vision: Wears Glasses Hearing: Impaired Hand Dominance: Right Sensation Right Lower Extremit: Intact Sensation Left Lower Extremity: Intact Transfers Functional [place] Measure 0=Not Assessed/NA 4=Minimal Assistance 1=Total Assistance 5=Supervision or Setup 2=Maximal Assistance 6=Modified [place] 3=Moderate Assistance 7=Complete [place] Transfers (B, C, W/C) (FIM): 4 Supine to/from Sit: 4 Sit to/from Stand: 4 Stood EOB; unable to sidestep at EOB Treatment Fit and applied CPM 0-45 degrees. Nursing notified Assessment/Needs Post TKR. Will beneift from skilled PT for functional mobility, strength, ROM and activity progression. Rehab Potential: Good PT Channel Account Manager Goals Custodial Goals PT Custodial Goals Time Frame: Jul 24, 2017 Transfers (B,C,W/C) (FIM): 6 Gait (FIM): 6 Gait distance (FIM): 3=150 ft Gait Assistive Device: FWW Stairs (FIM): 2 # of Steps: 4 PT Plan Problem List Problem List: Activity Tolerance, Functional Strength, Safety, Balance, Gait, Transfer, Bed Mobility, ROM Treatment/Plan Treatment Plan: Continue Plan of Care Treatment Plan: Bed Mobility, Education, Functional Activity Bree, Functional Strength, Gait, Safety, Therapeutic Exercise, Transfers Treatment Duration: Jul 24, 2017 Frequency: 11 times per week Estimated Hrs Per Day: 1 hour per day Patient and/or Family Agrees t: Yes Safety Risks/Education Patient Education: Transfer Techniques, Safety Issues Teaching Recipient: Patient Teaching Methods: Discussion Response to Teaching: Reinforcement Needed Discharge Recommendations Therapy D/C Recommendations: Physical Therapy Home Care Time/GCodes Time In: 1445 Time Out: 1515 Total Billed Treatment Time: 30 Total Billed Treatment visit EVM 30 CPM and pads ANA WHITAKER PT Jul 18, 2017 15:20
[2017-07-18 16:00] VITALS: BP 105/51
--- NOTE | 2017-07-18 18:08 | OPERATIVE REPORT ---
DATE OF SERVICE: 07/18/2017 PREOPERATIVE DIAGNOSIS: Left knee primary osteoarthritis. POSTOPERATIVE DIAGNOSIS: Left knee primary osteoarthritis. PROCEDURE: Left total knee arthroplasty. SURGEON: Eddie Hinson MD COIL WINDING SUPERVISOR: TAMIKA Olivares, who assisted throughout the procedure and closed the incision. ANESTHESIA: General endotracheal by Pollo Clarke CRNA. TOURNIQUET TIME: 68 minutes at 300 mmHg. ESTIMATED BLOOD LOSS: Minimal. DRAINS: None. COMPLICATIONS: None. POSTOPERATIVE PLAN: Routine total knee arthroplasty protocol. The patient was transferred to the recovery room, awake and stable condition. MATERIALS: MicroPort cemented size 5 femur, cemented size 4 tibia with a 17 mm insert and a cemented size 35 patella. STATEMENT OF MEDICAL NECESSITY: The patient is an 82-year-old female with complaints of progressively worsening left knee pain. Radiographs revealed severe lateral and patellofemoral arthrosis with moderate medial compartment arthrosis. She has undergone treatment extensive conservative measures. Reported marked functional impairment due to failure to improve with conservative measures, the patient and her family elected to proceed with surgical intervention. The patient and her family understood that she had significant debility and may have trouble with full recovery. After risks and benefits of procedure were discussed and questions were answered and informed consent signed and placed on chart. The operative site was confirmed in the preoperative holding area and the consent was obtained. The patient was then transported to the operating room and after adequate levels of general endotracheal anesthetic were obtained, a timeout was called confirming the operative site. The left lower extremity was then prepped and draped in the usual sterile fashion with the leg elevated, the tourniquet inflated to 300 mmHg. Standard anterior approach was utilized. Hemostasis was obtained with cautery. A medial parapatellar arthrotomy was performed leaving 1 cm cuff on the patella for later reattachment. A portion of the fat pad was resected. The ACL was resected. There was very poor tissue quality on the medial retinaculum off the tibia. The custom made femoral cutting block was placed and pinned into position. The distal cut was made and the 5 cutting block was placed and cuts were made from posterior to anterior. The tibial cut was then made using the custom made guide. The drop erik transected the intermalleolar axis. The baseplate was placed. The baseplate transected the intermalleolar axis. This was then prepared with the drill and keel punch. The tibial trial was placed. The femoral trial was placed. The trochlear groove was cut. The patella was then prepared using the freehand technique by resecting 10 mm off the undersurface. The peg guide was placed and peg holes were drilled. A 17 mm insert was placed with remainder of the trials with a 35 mm patellar button. The patella tracked well. Full extension was easily obtained greater than 120 degrees flexion with gravity was easily obtained. There was no anterior/posterior or medial/lateral laxity in flexion or extension. The trials were removed. The joint was irrigated with pulse lavage. The periarticular block was placed in the posterior capsule, medial and lateral retinaculum, extensor mechanism and subcutaneous tissues. The joint was further irrigated with pulse lavage. Bone ends were irrigated and dried. The tibial baseplate was cemented into position and excess of cement was removed. The superior surface was irrigated and dried and the polyethylene insert was placed. The distal femur was irrigated and dried and the femoral prosthesis was cemented into position. Excessive cement was removed. The knee was brought in full extension and held until the cement cured. The undersurface of the patella was irrigated and dried and the patellar button was cemented into position. Once the cement cured, knee was taken through range of motion. Full extension was easily obtained 120 degrees of flexion with gravity was easily obtained. The patella tracked well. There is no anterior/posterior or medial/lateral laxity in flexion or extension. The joint was further irrigated and the arthrotomy was closed #2 Tevdek in [id number] fashion. The knee was then flexed and the repair was stable with patella tracking well. The subcutaneous tissues were irrigated using a total of 6 liters throughout the procedure. A 0 Vicryl was used for deep subcutaneous tissue 2-0 Vicryl for the superficial subcutaneous tissue, padmini used on the skin. A soft dressing was applied. The tourniquet was deflated. The patient transferred to the recovery room awake and in stable condition. Job ID: [id number] DocumentID: [id number] Dictated Date: 07/18/2017 11:33:53 Clinical Resource Manager Date: 07/18/2017 18:07:59 Dictated By: EDDIE HINSON MD
[2017-07-18] MEDS: CEFUROXIME INJECTION 750 MG in NS (IVPB) 100 ML IV SCH (18:19)
[2017-07-18 20:02] VITALS: BP 130/73
[2017-07-18] MEDS: SENNA W/DOCUSATE (SENOKOT S) TABLET PO SCH (20:42)
[2017-07-18] MEDS: SIMvastatin 10 MG (ZOCOR) TAB PO SCH (20:42)
[2017-07-18] MEDS: FAMOTIDINE 20 MG (PEPCID) TABLET PO SCH (20:42)
[2017-07-19 00:47] VITALS: BP 112/52
[2017-07-19] MEDS: CEFUROXIME INJECTION 750 MG in NS (IVPB) 100 ML IV SCH (00:52)
[2017-07-19] MEDS: NS IV 1000 ML 1,000 ML IV SCH (03:03)
[2017-07-19 04:00] VITALS: BP 110/53
[2017-07-19] MEDS: PANTOPRAZOLE 40 MG (PROTONIX) TAB PO SCH (05:51)
[2017-07-19] MEDS: MULTIVIT W/MINERALS TAB (THERAGRAN M) PO SCH (05:51)
[2017-07-19] MEDS: LEVOTHYROXINE 88 MCG (LEVOTHORID) TAB PO SCH (05:51)
[2017-07-19 06:47] LABS: HEMOGLOBIN 10.1 G/DL (11.5-16.0)
--- NOTE | 2017-07-19 07:49 | Progress Note-Standard ---
Standard Progress Note Progress Notes/Assess & Plan Date Seen by Provider: Jul 19, 2017 Time Seen by Provider: 07:48 Progress/Assessment & Plan post op check denies paresthesias radiographs--no fractures. some increased valgus, but acceptable LLE--2 plus DP pulse with brisk cap refill. Intact DF and PF of toes and ankle. Sensation intact throughout s/p LTKA mobilize as able valgus due to baseline soft tissue laxity medially Final Diagnosis no complaints Vital Signs Date Time Temp Pulse Resp B/P (MAP) Pulse Ox O2 Delivery O2 Flow Rate FiO2 07/19/17 05:48 17 07/19/17 04:00 97.9 63 17 110/53 (72) 98 Nasal Cannula 2.00 07/19/17 00:47 97.8 60 16 112/52 (72) 99 Nasal Cannula 2.00 07/18/17 21:00 Nasal Cannula 1.00 07/18/17 20:02 96.3 55 18 130/73 (92) 98 Nasal Cannula 2.00 07/18/17 16:00 96.5 57 18 105/51 (69) 100 Nasal Cannula 2.00 07/18/17 12:40 95.1 60 18 119/59 (79) 97 Nasal Cannula 2.00 07/18/17 08:30 97.3 70 20 159/67 (97) 100 Room Air I & O 07/19/17 07:00 Intake Total 2160 ml Output Total 450 ml Balance 1710 ml Laboratory Tests Test 07/19/17 06:34 Range/Units Hemoglobin 10.1 L 11.5-16.0 G/DL Hematocrit 30 L 35-52 % LLE--dressing reinforced as expected. NVI distally. No calf tenderness. s/p LTKA mobilize LISSETTE RIOS MD Jul 19, 2017 07:49
[2017-07-19 08:00] VITALS: BP 136/60
[2017-07-19] MEDS: FUROSEMIDE 20 MG (LASIX) TAB PO SCH (09:12)
[2017-07-19] MEDS: ENOXAPARIN 30 MG/0.3 ML (LOVENOX) SYR SC SCH ×2 (09:12→21:54)
[2017-07-19] MEDS: ASPIRIN E.C. 81 MG (ECOTRIN) TAB PO SCH (09:12)
[2017-07-19] MEDS: amLODIPine 10 MG (NORVASC) TAB PO SCH (09:13)
[2017-07-19] MEDS: oxyCODONE/APAP 5/325MG (PERCOCET 5) TABLET PO PRN ×3 (09:13→23:41)
[2017-07-19] MEDS: SENNA W/DOCUSATE (SENOKOT S) TABLET PO SCH ×2 (09:13→21:54)
[2017-07-19] MEDS: lisINopril 40 MG (PRINIVIL) TABLET PO SCH (09:17)
--- NOTE | 2017-07-19 09:41 | Physical Therapy Daily Note ---
PT Daily Note-Current Subjective Patient c/o 8/10 left knee pain with medication issued. Pain Numeric Pain Scale: 8 Location: Left Location Body Site: Face Pain Description: Acute Mental Status Patient Orientation: Normal For Age Transfers Functional [place] Measure 0=Not Assessed/NA 4=Minimal Assistance 1=Total Assistance 5=Supervision or Setup 2=Maximal Assistance 6=Modified [place] 3=Moderate Assistance 7=Complete IndependenceIRFPAI Quality Coding Scale 6 Independent with activity with or without an assistive device 5 Patient requires set up or clean up by helper. Patient completes activity by themselves 4 Supervision or touching assist (CGA). [place] provide cues , steadying assist 3 The helper provides less than half the effort to complete the activity 2 The helper provides more than half the effort to complete the activity 1 Dependent. The helper does all the effort to complete an activity 7 Patient refused to complete or attempt activity 9 The patient did not perform the activity before the current illness or injury 88 Not attempted due to Medical conditions or safety concerns Transfers (B, C, W/C) (FIM): 4 Scootin Rollin Supine to/from Sit: 4 Sit to/from Stand: 4 Bed to/from Chair: 4 Weight Bearing Right Lower Extremity: Right Full Weight Bearing Left Lower Extremity: Left Weight Bearing/Tolerated Gait Training Gait (FIM): 2 Distance (FIM): 3=479-58 ft Distance: 75' Gait Level of Assist: 4 Gait Persons Needed: 1 Gait Assistive Device: FWW noted valgus to varus deviation with weight bearing/ambulating. Left knee appears to be in valgus deformity with initial stance phase and quickly goes to varus with weight shifting and follow through phase. Patient c/o pain with this and states "it feels loose." This PT called Dr. Portillo office and left message with staff to return call. Exercises Seated Therapy Exercises: Ankle pumps, Long arc quads, Hip flexion Seated Reps: 20 (2 sets) Assessment Patient is up in recliner with RN present. PT has not received call back from physician at this time. PT to advance patient exercise and ambulation as tolerated by patient. PT Senior Care Goals Senior Care Goals PT Acupressurist Goals Time Frame: Jul 24, 2017 Transfers (B,C,W/C) (FIM): 6 Gait (FIM): 6 Gait distance (FIM): 3=150 ft Gait Assistive Device: FWW Stairs (FIM): 2 # of Steps: 4 PT Plan Treatment/Plan Treatment Plan: Continue Plan of Care Treatment Plan: Bed Mobility, Education, Functional Activity Bree, Functional Strength, Gait, Safety, Therapeutic Exercise, Transfers Treatment Duration: Jul 24, 2017 Frequency: 11 times per week Estimated Hrs Per Day: 1 hour per day Patient and/or Family Agrees t: Yes Time/GCodes Time In: 909 Time Out: 932 Total Billed Treatment Time: 23 Total Billed Treatment 1 visit GT 14 min EX 9 min JUDE TORRES PT Jul 19, 2017 09:41
[2017-07-19 12:00] VITALS: BP 136/60
--- NOTE | 2017-07-19 12:57 | Progress Note-Hospitalist ---
Subjective HPI/CC On Admission Date Seen by Provider: Jul 19, 2017 Time Seen by Provider: 11:51 Pt is an 82yoCF with a PMH of HTN, hypothyroidism, and osteoporosis who was admitted postoperatively following left TKA. She complains of pain at her surgical site but otherwise has no complaints. When asked about her health history she states "I wouldn't know any of that right now." and declined to answer further questions stated she wouldn't know the answer. Her nurse states she has been sleepy since arrival to the floor and is very hard of hearing which has limited her ability to get history as well but that she has not complained of anything to her. Subjective/Events-last exam Pt complains of pain in knee at surgical site. Otherwise doing well. Has not had a BM yet. Otherwise eating and drinking well. Objective Exam Vital Signs Vital Signs Date Time Temp Pulse Resp B/P (MAP) Pulse Ox O2 Delivery O2 Flow Rate FiO2 07/18/17 08:30 97.3 70 20 159/67 (97) 100 Room Air 07/18/17 12:40 2.00 Capillary Refill : General Appearance: No Apparent Distress, WD/WN Respiratory: Lungs Clear, No Respiratory Distress Cardiovascular: Regular Rate, Rhythm, No Edema, No Murmur Gastrointestinal: Normal Bowel Sounds, Non Tender, Soft Extremity: Pedal Edema, Other (beulah hose in place) Skin: Normal Color, Warm/Dry Results/Procedures Lab Laboratory Tests 07/19/17 06:34 Assessment/Plan Assessment and Plan Assess & Plan/Chief Complaint s/p left TKA Diagnosis/Problems Diagnosis/Problems (1) Degenerative joint disease Status: Acute Assessment & Plan: s/p TKA management per primary PT/OT continue pain regimen Qualifiers: Qualified Codes: M17.12 - Unilateral primary osteoarthritis, left knee (2) Essential (primary) hypertension Assessment & Plan: Continue home medications Well controlled Hold parameters in place (3) Hypothyroidism Assessment & Plan: Continue home medications Qualifiers: Qualified Codes: E03.9 - Hypothyroidism, unspecified (4) Osteoporosis Assessment & Plan: On home alendronate if here when due Qualifiers: Qualified Codes: M81.0 - Age-related osteoporosis without current pathological fracture (5) Prophylactic measure Assessment & Plan: Lovenox 30mg BID Saline Lock Regular Diet DEMARCUS ANN MD Jul 19, 2017 12:56 pm
--- NOTE | 2017-07-19 15:05 | Progress Note-Standard ---
Standard Progress Note Progress Notes/Assess & Plan Date Seen by Provider: Jul 19, 2017 Time Seen by Provider: 15:03 Progress/Assessment & Plan post op check denies paresthesias radiographs--no fractures. some increased valgus, but acceptable LLE--2 plus DP pulse with brisk cap refill. Intact DF and PF of toes and ankle. Sensation intact throughout s/p LTKA mobilize as able valgus due to baseline soft tissue laxity medially Final Diagnosis patient had M/L instability on WB this AM will place in brace with partial wb. patient has poor strength and soft tissue laxity. will try to work on strength and allow soft tissues to heal d/w patient and PT LISSETTE RIOS MD Jul 19, 2017 15:05
--- NOTE | 2017-07-19 15:26 | Occupational Therapy Eval ---
OT Evaluation-General/PLF Medical Diagnosis Admission Date Jul 18, 2017 at 07:48 Medical Diagnosis: OA left knee Onset Date: Jul 18, 2017 Therapy Diagnosis Therapy Diagnosis: Weakness, Decreased ADL skills Height/Weight Height (Feet): 5 Height (Inches): 5.00 Weight (Pounds): 186 Weight (Ounces): 0.0 Precautions Precautions/Isolations: Standard Precautions Safety Interventions: None Referral Physician: Joya Referral Reason: Activity Tolerance, Self Care, Evaluation/Treatment, Strengthening/ROM Medical History Pertinent Medical History: CAD, HTN, OA Additional Medical History Rhinitis Current History Pt. had elective knee surgery. Reviewed History: Yes Social History Home: Single Level Current Living Status: Children (son) Entry Into Home: Ramp ADL-Prior Level of Function ADL PLOF Comments Pt. is able to report some history, but overall, is somewhat confused. Requires cues to process and sequence. Pt. states that she lives with her son in [place], [place] Pt. states that she was independent with basic self care skills. DME/Equipment: Bath Chair, Tub/Shower DME/Equipment Comments Pt. has a walker that she uses, and a cane. OT Current Status Subjective Pt. does not report pain level. Does seem to have difficulty staying awake. Appearance Pt. up in chair. Agrees to spongebathe. Mental Status/Objective Patient Orientation: Confused Current Glasses/Contacts: Yes Hand Dominance: Right Upper Extremity ROM WFL Upper Extremity Strength 3+/5 overall UE strength. ADL-Treatment Functional [place] Measure 0=Not Assessed/NA 4=Minimal Assistance 1=Total Assistance 5=Supervision or Setup 2=Maximal Assistance 6=Modified [place] 3=Moderate Assistance 7=Complete IndependenceIRFPAI Quality Coding Scale 6 Independent with activity with or without an assistive device 5 Patient requires set up or clean up by helper. Patient completes activity by themselves 4 Supervision or touching assist (CGA). [place] provide cues , steadying assist 3 The helper provides less than half the effort to complete the activity 2 The helper provides more than half the effort to complete the activity 1 Dependent. The helper does all the effort to complete an activity 7 Patient refused to complete or attempt activity 9 The patient did not perform the activity before the current illness or injury 88 Not attempted due to Medical conditions or safety concerns Eating (FIM): 5 (Pt. did at one point become somewhat "choked" up on her own saliva. States that she does this at home, but not on food. OT reported this to nursing.) Bathing (FIM): 4 (Pt. able to wash UE and torso. Required min assist in stance to wash kristina areas. Pt. did not attempt LE due to knee still wrapped in surgery dressing.) Lower Body Dressing (FIM): 1 (Pt. unable to reach feet to doff/don socks.) Transfers (B, C, W/C) (FIM): 4 (Pt. is able to stand with min assist from chair at walker.) Education OT Patient Education: Correct positioning, Modified ADL techniques, Progress toward Goal/Update tx plan, Purpose of tx/functional activities, Reviewed precautions, Rehab process, Transfer techniques Teaching Recipient: Patient Teaching Methods: Demonstration, Discussion Response to Teaching: Verbalize Understanding, Return Demonstration OT Short Term Goals Short Term Goals Time Frame: Jul 26, 2017 Eating(FIM): 6 Grooming(FIM): 5 Bathing(FIM): 5 Upper Body Dressing(FIM): 5 Lower Body Dressing(FIM): 4 Toileting(FIM): 4 Transfers (B,C,W/C) (FIM): 5 Toilet/Commode Transfer(FIM): 5 Additional Short Term Goals: 1-Demonstrate ADL Tasks, 2-Verbalize Understanding , 3-ImproveStrength/Bree 1=Demonstrate adherence to instructed precautions during ADL tasks. 2=Patient will verbalize/demonstrate understanding of assistive devices/ modifications for ADL. 3=Patient will improve strength/tolerance for activity to enable patient to perform ADL's. OT Gold Layer Goals Gold Layer Goals Time Frame: Aug 02, 2017 Eating (FIM): 6 Grooming(FIM): 6 Bathing(FIM): 5 Upper Body Dressing(FIM): 6 Lower Body Dressing(FIM): 5 Toileting(FIM): 6 Transfers (B,C,W/C) (FIM): 6 Toilet/Commode Transfer(FIM): 6 Shower Transfer(FIM): 5 Additional Goals: 1-Demonstrate ADL Tasks, 2-Verbalize Understanding, 3- ImproveStrength/Bree 1=Demonstrate adherence to instructed precautions during ADL tasks. 2=Patient will verbalize/demonstrate understanding of assistive devices/ modifications for ADL. 3=Patient will improve strength/tolerance for activity to enable patient to perform ADL's. OT Education/Plan Problem List/Assessment Assessment: Decreased Activ Tolerance, Dependent Transfers, Impaired Bed Mobility, Impaired Funct Balance, Impaired I ADL's, Impaired Self-Care Skills Discharge Recommendations Plan/Recommendations: Continue POC Therapy D/C Recommendations: Home w/ Family Support, Occupational Therapy Home Care Equpiment Recommendations-D/C: Hip Kit Target Placement Home with family support and home health care once pt. cognitively clears. Treatment Plan/Plan of Care Treatment,Training & Education: Yes Patient would benefit from OT for education, treatment and training to promote independence in ADL's, mobility, safety and/or upper extremity function for ADL' s. Plan of Care: ADL Retraining, Functional Mobility, UE Funct Exercise/Act Treatment Duration: Aug 02, 2017 Frequency: 5 times per week Estimated Hrs Per Day: .25 hour per day Agreement: Yes Rehab Potential: Good Time/GCodes Start Time: 11:35 Stop Time: 12:00 Total Time Billed (hr/min): 25 Billed Treatment Time 1, EVM x 10minutes, ADL x 15minutes BOBY CHAPMAN OT Jul 19, 2017 15:26
--- NOTE | 2017-07-19 15:45 | Physical Therapy Daily Note ---
PT Daily Note-Current Subjective Patient reports she feels anxious. RN notified. Pain Numeric Pain Scale: 10-Worst Possible Pain Location: Left Location Body Site: Knee Pain Description: Acute Mental Status Patient Orientation: Normal For Age Attachments: IV Transfers Functional [place] Measure 0=Not Assessed/NA 4=Minimal Assistance 1=Total Assistance 5=Supervision or Setup 2=Maximal Assistance 6=Modified [place] 3=Moderate Assistance 7=Complete IndependenceIRFPAI Quality Coding Scale 6 Independent with activity with or without an assistive device 5 Patient requires set up or clean up by helper. Patient completes activity by themselves 4 Supervision or touching assist (CGA). [place] provide cues , steadying assist 3 The helper provides less than half the effort to complete the activity 2 The helper provides more than half the effort to complete the activity 1 Dependent. The helper does all the effort to complete an activity 7 Patient refused to complete or attempt activity 9 The patient did not perform the activity before the current illness or injury 88 Not attempted due to Medical conditions or safety concerns Transfers (B, C, W/C) (FIM): 3 Scootin Rollin Supine to/from Sit: 3 Sit to/from Stand: 3 Bed to/from Chair: 3 Patient is current TTWB left LE with hinged knee brace and requires time to complete all functional tasks. Patient did transfer recliner to commode to bed with mod assist. Weight Bearing Right Lower Extremity: Right Full Weight Bearing Left Lower Extremity: Left Weight Bearing/Tolerated Treatments PT in to fit Roman hinged knee brace to have on when up ambulating. Assessment Patient tolerated treatment and is in bed with needs met. PT will increase activity as tolerated. From a PT standpoint, patient will require extended care to fully recovery and gain adequate strength to return to home at maximum LOF. PT Short Term Goals Short Term Goals Transfers (B,C,W/C) (FIM): 5 PT Cylinder Press Operator Helper Goals Detention Goals PT Cylinder Press Operator Helper Goals Time Frame: Jul 24, 2017 Transfers (B,C,W/C) (FIM): 6 Gait (FIM): 6 Gait distance (FIM): 3=150 ft Gait Assistive Device: FWW Stairs (FIM): 2 # of Steps: 4 PT Plan Treatment/Plan Treatment Plan: Continue Plan of Care Treatment Plan: Bed Mobility, Education, Functional Activity Bree, Functional Strength, Gait, Safety, Therapeutic Exercise, Transfers Treatment Duration: Jul 24, 2017 Frequency: 11 times per week Estimated Hrs Per Day: 1 hour per day Patient and/or Family Agrees t: Yes Time/GCodes Time In: 1425 Time Out: 1450 Total Billed Treatment Time: 25 Total Billed Treatment 1 visit FA 10 min [place] 15 min JUDE TORRES PT Jul 19, 2017 15:45
[2017-07-19 16:33] VITALS: BP 128/66
[2017-07-19] MEDS ORDERED: NS IV 1000 ML 1,000 ML ONE (18:25)
[2017-07-19 20:23] VITALS: BP 117/58
[2017-07-19] MEDS: FAMOTIDINE 20 MG (PEPCID) TABLET PO SCH (21:54)
[2017-07-19] MEDS: SIMvastatin 10 MG (ZOCOR) TAB PO SCH (21:54)
[2017-07-20] VITALS: BP 126/55
[2017-07-20 04:00] VITALS: BP 121/68
[2017-07-20 06:44] LABS: HEMOGLOBIN 8.5 G/DL (11.5-16.0)
[2017-07-20] MEDS: LEVOTHYROXINE 88 MCG (LEVOTHORID) TAB PO SCH (06:57)
[2017-07-20] MEDS: MULTIVIT W/MINERALS TAB (THERAGRAN M) PO SCH (06:57)
[2017-07-20] MEDS: PANTOPRAZOLE 40 MG (PROTONIX) TAB PO SCH (06:58)
--- NOTE | 2017-07-20 07:10 | Progress Note-Standard ---
Standard Progress Note Progress Notes/Assess & Plan Date Seen by Provider: Jul 20, 2017 Time Seen by Provider: 07:07 Progress/Assessment & Plan post op check denies paresthesias radiographs--no fractures. some increased valgus, but acceptable LLE--2 plus DP pulse with brisk cap refill. Intact DF and PF of toes and ankle. Sensation intact throughout s/p LTKA mobilize as able valgus due to baseline soft tissue laxity medially Final Diagnosis No complaints Vital Signs Date Time Temp Pulse Resp B/P (MAP) Pulse Ox O2 Delivery O2 Flow Rate FiO2 07/20/17 04:00 98.4 77 16 121/68 (85) 92 Room Air 07/20/17 00:00 97.4 71 16 126/55 (78) 96 Room Air 07/19/17 20:23 97.0 81 18 117/58 (77) 95 Room Air 07/19/17 16:33 97.0 78 18 128/66 (86) 98 Room Air 07/19/17 12:00 97.3 62 18 136/60 (85) 95 Nasal Cannula 2.00 07/19/17 09:00 Room Air 07/19/17 08:00 97.3 62 18 136/60 (85) 95 Room Air I & O 07/20/17 07:00 Intake Total 2980 ml Output Total 600 ml Balance 2380 ml Laboratory Tests Test 07/20/17 06:19 Range/Units Hemoglobin 8.5 L 11.5-16.0 G/DL Hematocrit 26 L 35-52 % LLE--incision clean and dry. No calf tenderness. No gross laxity in extension med/lateral s/p LTKA with instability. i feel that a sig portion of this is dynamic due to weakness PWB with brace when ambulating will likely require NH placement LISSETTE RIOS MD Jul 20, 2017 07:10
[2017-07-20] MEDS ORDERED: morphine INJ 4 MG/ML 1 ML (VIAL/SYRINGE) IVP PRN (07:15)
[2017-07-20 08:00] VITALS: BP 99/62
[2017-07-20] MEDS: lisINopril 40 MG (PRINIVIL) TABLET PO SCH (08:37)
[2017-07-20] MEDS: amLODIPine 10 MG (NORVASC) TAB PO SCH (08:37)
[2017-07-20] MEDS: FUROSEMIDE 20 MG (LASIX) TAB PO SCH (08:37)
[2017-07-20] MEDS: ASPIRIN E.C. 81 MG (ECOTRIN) TAB PO SCH (08:37)
[2017-07-20] MEDS: SENNA W/DOCUSATE (SENOKOT S) TABLET PO SCH ×2 (08:37→20:03)
[2017-07-20] MEDS: ENOXAPARIN 30 MG/0.3 ML (LOVENOX) SYR SC SCH ×2 (08:40→20:03)
--- NOTE | 2017-07-20 09:32 | Physical Therapy Daily Note ---
PT Daily Note-Current Subjective Patient asks when she is going to have surgery. PT and RN inform patient she has had her surgery. Pain Numeric Pain Scale: 10-Worst Possible Pain Location: Left Location Body Site: Knee Pain Description: Acute Mental Status Patient Orientation: Person, Confused Transfers Functional [place] Measure 0=Not Assessed/NA 4=Minimal Assistance 1=Total Assistance 5=Supervision or Setup 2=Maximal Assistance 6=Modified [place] 3=Moderate Assistance 7=Complete IndependenceIRFPAI Quality Coding Scale 6 Independent with activity with or without an assistive device 5 Patient requires set up or clean up by helper. Patient completes activity by themselves 4 Supervision or touching assist (CGA). [place] provide cues , steadying assist 3 The helper provides less than half the effort to complete the activity 2 The helper provides more than half the effort to complete the activity 1 Dependent. The helper does all the effort to complete an activity 7 Patient refused to complete or attempt activity 9 The patient did not perform the activity before the current illness or injury 88 Not attempted due to Medical conditions or safety concerns Transfers (B, C, W/C) (FIM): 4 Scootin Rollin Supine to/from Sit: 4 Sit to/from Stand: 4 Bed to/from Chair: 4 Weight Bearing Right Lower Extremity: Right Full Weight Bearing Left Lower Extremity: Left Touch Toe Bearing Gait Training Gait (FIM): 1 Distance (FIM): 1=up to 49 ft Distance: 20' Gait Level of Assist: 4 Gait Persons Needed: 1 Gait Assistive Device: FWW PT donned knee brace left LE and patient performed TTWB left LE with ambulation. Patient is limited due to weakness and pain. Exercises Supine Ex: Ankle pumps, Quad Set Supine Reps: 15 Seated Therapy Exercises: Long arc quads Seated Reps: 15 Assessment Patient requires much encouragement to participate with PT and is confused. Patient is educated on importance of exercise to increase strength and to stabilize knee, however, patient does not understand. PT Short Term Goals Short Term Goals Transfers (B,C,W/C) (FIM): 5 PT [place] Bottom Maker Goals Senior Care Goals PT Senior Care Goals Time Frame: Jul 24, 2017 Transfers (B,C,W/C) (FIM): 6 Gait (FIM): 6 Gait distance (FIM): 3=150 ft Gait Assistive Device: FWW Stairs (FIM): 2 # of Steps: 4 PT Plan Treatment/Plan Treatment Plan: Continue Plan of Care Treatment Plan: Bed Mobility, Education, Functional Activity Bree, Functional Strength, Gait, Safety, Therapeutic Exercise, Transfers Treatment Duration: Jul 24, 2017 Frequency: 11 times per week Estimated Hrs Per Day: 1 hour per day Patient and/or Family Agrees t: Yes Discharge Recommendations Therapy D/C Recommendations: Assisted Placement, Detention (TCU/NH) Time/GCodes Time In: 830 Time Out: 853 Total Billed Treatment Time: 23 Total Billed Treatment 1 visit EX 15 min GT 8 min JUDE TORRES PT Jul 20, 2017 09:32
[2017-07-20] MEDS: oxyCODONE/APAP 5/325MG (PERCOCET 5) TABLET PO PRN ×2 (11:51→20:02)
--- NOTE | 2017-07-20 11:51 | Progress Note-Hospitalist ---
Subjective HPI/CC On Admission Date Seen by Provider: Jul 20, 2017 Time Seen by Provider: 11:00 Pt is an 82yoCF with a PMH of HTN, hypothyroidism, and osteoporosis who was admitted postoperatively following left TKA. She complains of pain at her surgical site but otherwise has no complaints. When asked about her health history she states "I wouldn't know any of that right now." and declined to answer further questions stated she wouldn't know the answer. Her nurse states she has been sleepy since arrival to the floor and is very hard of hearing which has limited her ability to get history as well but that she has not complained of anything to her. Subjective/Events-last exam Pt is doing well but still having knee pain. She otherwise has no complaints for me. She is eating well but thinks her hein is "too greasy." No abd pain. Objective Exam Vital Signs Vital Signs Date Time Temp Pulse Resp B/P (MAP) Pulse Ox O2 Delivery O2 Flow Rate FiO2 07/18/17 08:30 97.3 70 20 159/67 (97) 100 Room Air 07/18/17 12:40 2.00 Capillary Refill : General Appearance: No Apparent Distress, WD/WN HEENT: Other (hard of hearing) Respiratory: Lungs Clear, No Accessory Muscle Use, No Respiratory Distress Cardiovascular: Regular Rate, Rhythm, No Murmur Gastrointestinal: Normal Bowel Sounds, Non Tender, Soft Extremity: No Calf Tenderness, Other (beulah hose in place) Skin: Normal Color, Warm/Dry Results/Procedures Lab Laboratory Tests 07/20/17 06:19 Assessment/Plan Assessment and Plan Assess & Plan/Chief Complaint s/p left TKA Diagnosis/Problems Diagnosis/Problems (1) Degenerative joint disease Status: Acute Assessment & Plan: s/p TKA management per primary PT/OT continue pain regimen Plan to DC to SNF tomorrow Qualifiers: Qualified Codes: M17.12 - Unilateral primary osteoarthritis, left knee (2) Essential (primary) hypertension Assessment & Plan: Continue home medications Well controlled Hold parameters in place (3) Hypothyroidism Assessment & Plan: Continue home medications Qualifiers: Qualified Codes: E03.9 - Hypothyroidism, unspecified (4) Osteoporosis Assessment & Plan: On home alendronate if here when due Qualifiers: Qualified Codes: M81.0 - Age-related osteoporosis without current pathological fracture (5) Prophylactic measure Assessment & Plan: Lovenox 30mg BID Saline Lock Regular Diet DEMARCUS ANN MD Jul 20, 2017 11:51 am
[2017-07-20 12:00] VITALS: BP 133/77
--- NOTE | 2017-07-20 12:39 | Occupational Ther Daily Note ---
OT Current Status-Daily Note Subjective Pt alert, sitting in recliner. Pt agreed to therapy. Pt c/o pain with R UE, did not rate. Mental Status/Objective Patient Orientation: Person Functional [place] Measure 0=Not Assessed/NA 4=Minimal Assistance 1=Total Assistance 5=Supervision or Setup 2=Maximal Assistance 6=Modified [place] 3=Moderate Assistance 7=Complete [place] Other Treatment Pt c/o pain from R wrist to shldr when completing shldr abduction and shldr flexion. Pt stated that it has been going on for a month and makes it hard to use R UE. Pt was able to complete shldr flexion to 100 degrees, shldr retraction and elevation without pain just felt a pull. Pt completed 5 UE exercises against gravity without c/o pain. After therapy, pt sitting in recliner with call light/phone in reach. All needs met in room. OT Short Term Goals Short Term Goals Time Frame: Jul 26, 2017 Eating(FIM): 6 Grooming(FIM): 5 Bathing(FIM): 5 Upper Body Dressing(FIM): 5 Lower Body Dressing(FIM): 4 Toileting(FIM): 4 Transfers (B,C,W/C) (FIM): 5 Toilet/Commode Transfer(FIM): 5 Additional Short Term Goals: 1-Demonstrate ADL Tasks, 2-Verbalize Understanding , 3-ImproveStrength/Bree 1=Demonstrate adherence to instructed precautions during ADL tasks. 2=Patient will verbalize/demonstrate understanding of assistive devices/ modifications for ADL. 3=Patient will improve strength/tolerance for activity to enable patient to perform ADL's. OT Senior Research Fellow Goals Senior Research Fellow Goals Time Frame: Aug 02, 2017 Eating (FIM): 6 Grooming(FIM): 6 Bathing(FIM): 5 Upper Body Dressing(FIM): 6 Lower Body Dressing(FIM): 5 Toileting(FIM): 6 Transfers (B,C,W/C) (FIM): 6 Toilet/Commode Transfer(FIM): 6 Shower Transfer(FIM): 5 Additional Goals: 1-Demonstrate ADL Tasks, 2-Verbalize Understanding, 3- ImproveStrength/Bree 1=Demonstrate adherence to instructed precautions during ADL tasks. 2=Patient will verbalize/demonstrate understanding of assistive devices/ modifications for ADL. 3=Patient will improve strength/tolerance for activity to enable patient to perform ADL's. OT Education/Plan Discharge Recommendations Plan/Recommendations: Continue POC Treatment Plan/Plan of Care Patient would benefit from OT for education, treatment and training to promote independence in ADL's, mobility, safety and/or upper extremity function for ADL' s. Plan of Care: ADL Retraining, Functional Mobility, UE Funct Exercise/Act Treatment Duration: Aug 02, 2017 Frequency: 5 times per week Estimated Hrs Per Day: .25 hour per day Agreement: Yes Rehab Potential: Good Time/GCodes Start Time: 12:20 Stop Time: 12:38 Total Time Billed (hr/min): 18 Billed Treatment Time 1 visit-EX 1 (18 min) ANA JON Jul 20, 2017 12:39
[2017-07-20] MEDS ORDERED: OXYC-471 PO (13:04)
--- NOTE | 2017-07-20 13:06 | Discharge Inst-Skilled Nursing ---
Discharge Inst-Skilled NF Patient Instructions Patient Problems: Left knee osteoarthritis s/p total knee arthroplasty Consult/Follow Up/Orders Follow Up Appt.: [address] Joya BURKS Admit to: [facility] Certification (SNF) I certify that SNF services are required to be given on an inpatient basis because of the above named patient's need for senior living care on a continuing basis for the conditions(s) for which he/she was receiving inpatient hospital services prior to his/her transfer to the SNF. Snf Facility Order: Nursing Services, [facility]-Evaluate & Treat, Physical Therapy-Evaluate & Treat Discharge Diet: No Restrictions New & Resume Previous Orders Demarcus Pendleton Jul 20, 2017 10:50 DEMARCUS PENDLETON MD Jul 20, 2017 10:51 am
--- NOTE | 2017-07-20 13:49 | Physical Therapy Daily Note ---
PT Daily Note-Current Subjective Patient asks again when she is going to surgery. PT reorientates patient. Pain Numeric Pain Scale: 10-Worst Possible Pain Location: Left Location Body Site: Knee Pain Description: Acute Mental Status Patient Orientation: Confused Transfers Functional [place] Measure 0=Not Assessed/NA 4=Minimal Assistance 1=Total Assistance 5=Supervision or Setup 2=Maximal Assistance 6=Modified [place] 3=Moderate Assistance 7=Complete IndependenceIRFPAI Quality Coding Scale 6 Independent with activity with or without an assistive device 5 Patient requires set up or clean up by helper. Patient completes activity by themselves 4 Supervision or touching assist (CGA). [place] provide cues , steadying assist 3 The helper provides less than half the effort to complete the activity 2 The helper provides more than half the effort to complete the activity 1 Dependent. The helper does all the effort to complete an activity 7 Patient refused to complete or attempt activity 9 The patient did not perform the activity before the current illness or injury 88 Not attempted due to Medical conditions or safety concerns Transfers (B, C, W/C) (FIM): 3 Scootin Rollin Supine to/from Sit: 3 Sit to/from Stand: 3 Bed to/from Chair: 3 Weight Bearing Right Lower Extremity: Right Full Weight Bearing Left Lower Extremity: Left Touch Toe Bearing Gait Training Gait (FIM): 1 Distance (FIM): 1=up to 49 ft Distance: 10' Gait Level of Assist: 4 Gait Persons Needed: 1 Gait Assistive Device: FWW trunk flexed, antalgic posture Exercises Supine Ex: Ankle pumps, Heel Slides Supine Reps: 10 (AAROM) Seated Therapy Exercises: Long arc quads Seated Reps: 15 (AAROM) Treatments CPM 0-65 degrees Assessment Patient is very confused and resistive with all ROM. Plan dismissal to [place] tomorrow. PT Short Term Goals Short Term Goals Transfers (B,C,W/C) (FIM): 5 PT Retirement Goals Building Code Inspector Goals PT Retirement Goals Time Frame: Jul 24, 2017 Transfers (B,C,W/C) (FIM): 6 Gait (FIM): 6 Gait distance (FIM): 3=150 ft Gait Assistive Device: FWW Stairs (FIM): 2 # of Steps: 4 PT Plan Treatment/Plan Treatment Plan: Continue Plan of Care Treatment Plan: Bed Mobility, Education, Functional Activity Bree, Functional Strength, Gait, Safety, Therapeutic Exercise, Transfers Treatment Duration: Jul 24, 2017 Frequency: 11 times per week Estimated Hrs Per Day: 1 hour per day Patient and/or Family Agrees t: Yes Time/GCodes Time In: 1245 Time Out: 1258 Total Billed Treatment Time: 13 Total Billed Treatment 1 visit EX 13 min JUDE TORRES PT Jul 20, 2017 13:49
[2017-07-20 16:35] VITALS: BP 148/80
[2017-07-20] MEDS: FAMOTIDINE 20 MG (PEPCID) TABLET PO SCH (20:02)
[2017-07-20] MEDS: SIMvastatin 10 MG (ZOCOR) TAB PO SCH (20:03)
[2017-07-20 20:35] VITALS: BP 148/53
[2017-07-21 00:50] VITALS: BP 143/70
[2017-07-21] MEDS: LEVOTHYROXINE 88 MCG (LEVOTHORID) TAB PO SCH (05:02)
[2017-07-21] MEDS: PANTOPRAZOLE 40 MG (PROTONIX) TAB PO SCH (05:02)
[2017-07-21] MEDS: MULTIVIT W/MINERALS TAB (THERAGRAN M) PO SCH (05:02)
[2017-07-21] MEDS: oxyCODONE/APAP 5/325MG (PERCOCET 5) TABLET PO PRN ×2 (05:02→10:08)
[2017-07-21 05:59] LABS: HEMOGLOBIN 8.3 G/DL (11.5-16.0)
[2017-07-21 08:35] VITALS: BP 125/58
--- NOTE | 2017-07-21 09:04 | Progress Note-Hospitalist ---
Subjective HPI/CC On Admission Date Seen by Provider: Jul 21, 2017 Time Seen by Provider: 08:10 Pt is an 82yoCF with a PMH of HTN, hypothyroidism, and osteoporosis who was admitted postoperatively following left TKA. She complains of pain at her surgical site but otherwise has no complaints. When asked about her health history she states "I wouldn't know any of that right now." and declined to answer further questions stated she wouldn't know the answer. Her nurse states she has been sleepy since arrival to the floor and is very hard of hearing which has limited her ability to get history as well but that she has not complained of anything to her. Subjective/Events-last exam Pt reports doing well. Eating well. Drinking well. No documented BMs but she denies constipation. She is ready for DC to SNF. Objective Exam Vital Signs Vital Signs Date Time Temp Pulse Resp B/P (MAP) Pulse Ox O2 Delivery O2 Flow Rate FiO2 07/18/17 08:30 97.3 70 20 159/67 (97) 100 Room Air 07/18/17 12:40 2.00 Capillary Refill : General Appearance: No Apparent Distress, WD/WN Respiratory: Lungs Clear, No Respiratory Distress Cardiovascular: No Murmur Gastrointestinal: Normal Bowel Sounds, Non Tender, Soft Neurologic/Psychiatric: Alert, Other (pleasantly confused) Results/Procedures Lab Laboratory Tests 07/21/17 05:35 Assessment/Plan Assessment and Plan Assess & Plan/Chief Complaint s/p left TKA Diagnosis/Problems Diagnosis/Problems (1) Degenerative joint disease Status: Acute Assessment & Plan: s/p TKA management per primary PT/OT continue pain regimen Plan to DC to SNF tomorrow Qualifiers: Qualified Codes: M17.12 - Unilateral primary osteoarthritis, left knee (2) Essential (primary) hypertension Assessment & Plan: Continue home medications Well controlled for age (3) Hypothyroidism Assessment & Plan: Continue home medications Qualifiers: Qualified Codes: E03.9 - Hypothyroidism, unspecified (4) Osteoporosis Assessment & Plan: On home alendronate if here when due Qualifiers: Qualified Codes: M81.0 - Age-related osteoporosis without current pathological fracture (5) Prophylactic measure Assessment & Plan: Lovenox 30mg BID Saline Lock Regular Diet Ok for DC from medical standpoint when surgery deems appropriate. DEMARCUS ANN MD Jul 21, 2017 9:04 am
[2017-07-21] MEDS: ENOXAPARIN 30 MG/0.3 ML (LOVENOX) SYR SC SCH (09:22)
[2017-07-21] MEDS: amLODIPine 10 MG (NORVASC) TAB PO SCH (09:22)
[2017-07-21] MEDS: FUROSEMIDE 20 MG (LASIX) TAB PO SCH (09:23)
[2017-07-21] MEDS: SENNA W/DOCUSATE (SENOKOT S) TABLET PO SCH (09:23)
[2017-07-21] MEDS: ASPIRIN E.C. 81 MG (ECOTRIN) TAB PO SCH (09:23)
[2017-07-21] MEDS: lisINopril 40 MG (PRINIVIL) TABLET PO SCH (09:23)
--- NOTE | 2017-07-21 09:46 | Progress Note-Standard ---
Standard Progress Note Progress Notes/Assess & Plan Date Seen by Provider: Jul 21, 2017 Time Seen by Provider: 09:45 Progress/Assessment & Plan post op check denies paresthesias radiographs--no fractures. some increased valgus, but acceptable LLE--2 plus DP pulse with brisk cap refill. Intact DF and PF of toes and ankle. Sensation intact throughout s/p LTKA mobilize as able valgus due to baseline soft tissue laxity medially Final Diagnosis patient more lucid today. denies pain LLE--incision clean and dry. No calf tenderness s/p LTKA with weakness and instability dc to CT LISSETTE RIOS MD Jul 21, 2017 09:46
[2017-07-21 10:46] VITALS: BP 125/58
--- NOTE | 2017-07-21 11:32 | Physical Therapy Daily Note ---
PT Daily Note-Current Subjective Pt agreeable to PT. Pt requests BR. Pain rated 5/10. Pt c/o nausea following up out of bed and commode use. Transfers Functional [place] Measure 0=Not Assessed/NA 4=Minimal Assistance 1=Total Assistance 5=Supervision or Setup 2=Maximal Assistance 6=Modified [place] 3=Moderate Assistance 7=Complete IndependenceIRFPAI Quality Coding Scale 6 Independent with activity with or without an assistive device 5 Patient requires set up or clean up by helper. Patient completes activity by themselves 4 Supervision or touching assist (CGA). [place] provide cues , steadying assist 3 The helper provides less than half the effort to complete the activity 2 The helper provides more than half the effort to complete the activity 1 Dependent. The helper does all the effort to complete an activity 7 Patient refused to complete or attempt activity 9 The patient did not perform the activity before the current illness or injury 88 Not attempted due to Medical conditions or safety concerns Weight Bearing Right Lower Extremity: Right Full Weight Bearing Left Lower Extremity: Left Touch Toe Bearing Gait Training Gait Assistive Device: FWW Pt amb with knee brace in place and FWW bed to commode. Pt stood for pericare with good balance. Pt amb with FWW and CGA x 15ft to chair. Treatments PT seen for ther ex and gait training. Pt unable to complete the ther ex due to nausea. Pt followed all directions appropriately. Pt resting in recliner with legs elevated on pillow, brace in place. Pt nauseated at this time. Pt given cool wash cloth, family present. Call light in reach and all needs met. Assessment Current Status: Fair Progress PT Short Term Goals Short Term Goals Transfers (B,C,W/C) (FIM): 5 PT Doper Operator Goals Doper Operator Goals PT Doper Operator Goals Time Frame: Jul 24, 2017 Transfers (B,C,W/C) (FIM): 6 Gait (FIM): 6 Gait distance (FIM): 3=150 ft Gait Assistive Device: FWW Stairs (FIM): 2 # of Steps: 4 PT Plan Treatment/Plan Treatment Plan: Discontinue PT, goals met, Discontinue PT Treatment Plan: Bed Mobility, Education, Functional Activity Bree, Functional Strength, Gait, Safety, Therapeutic Exercise, Transfers Treatment Duration: Jul 24, 2017 Frequency: 11 times per week Estimated Hrs Per Day: 1 hour per day Patient and/or Family Agrees t: Yes Time/GCodes Time In: 850 Time Out: 915 Total Billed Treatment Time: 25 Total Billed Treatment 1, FA 15 min, Gt 10 min YULY COELLO CPTA Jul 21, 2017 11:32
--- NOTE | 2017-07-21 14:13 | DISCHARGE SUMMARY ---
DATE OF SERVICE: DIAGNOSES: 1. Left knee severe primary osteoarthritis. 2. Weakness. 3. Gait instability. 4. Hypertension. 5. Reflux. 6. Seasonal rhinitis. 7. Hypothyroidism. 8. Coronary artery disease. PROCEDURE: Left total knee arthroplasty. SUMMARY: The patient is an 82-year-old female who underwent left total knee arthroplasty without complications. Postoperatively, she had marked weakness and difficulty with stability of the left knee and therefore she was placed in a brace. At the time of surgery preoperatively, she had marked medial lateral laxity and posterior laxity. At the completion of her procedure, her laxity on the table had returned to what was felt to be normal in all planes. It was felt that her instability was secondary to weakness. Because of her weakness and gait instability, it was recommended that she will be admitted to a [place] [facility] facility. Her wound was clean and dry at the time of discharge. She has no calf tenderness. Negative Homans sign. She was tolerating diet well and tolerating pain with oral pain medication. CONDITION AT DISCHARGE: Good. DISCHARGE DIET: Regular. FOLLOWUP: Follow up is in 3 weeks. ACTIVITIES: Partial weightbearing, left lower extremity with brace while ambulating. DISCHARGE MEDICATIONS: Home medications and Percocet as needed for pain and one aspirin per day. Job ID: [id number] DocumentID: [id number] Dictated Date: 07/21/2017 09:49:27 Veneer Layer Date: 07/21/2017 14:12:50 Dictated By: LISSETTE RIOS MD
== END 2017-07-21 10:20 | DRG 470 ==
LOC: 4TH 07:48 → SURG 07:49 → 4TH 12:50
PROVIDERS: ADMIT Orthopaedic Surgery; ATTEND Orthopaedic Surgery
PROC: 0SRD0J9 Replacement of Left Knee Joint with Synthetic Substitute, Cemented, Open Approach (ICD-10-PCS; principal; 2017-07-18 09:41)
DX: M17.12 Unilateral primary osteoarthritis, left knee (principal); R26.89 Other abnormalities of gait and mobility; R29.898 Other symptoms and signs involving the musculoskeletal system; M81.0 Age-related osteoporosis without current pathological fracture; I25.10 Atherosclerotic heart disease of native coronary artery without angina pectoris; I10 Essential (primary) hypertension; E03.9 Hypothyroidism, unspecified; I27.20 Pulmonary hypertension, unspecified; K21.9 Gastro-esophageal reflux disease without esophagitis; K44.9 Diaphragmatic hernia without obstruction or gangrene; R35.0 Frequency of micturition; J30.2 Other seasonal allergic rhinitis; K57.90 Diverticulosis of intestine, part unspecified, without perforation or abscess without bleeding; E66.9 Obesity, unspecified; Z68.31 Body mass index [BMI] 31.0-31.9, adult
CPT/HCPCS: 36415; 73560; 85014; 85018; 86850; 86900; 86901; 94664